=== PATIENT | male | born 1955 | race Caucasian/White ===

== ENCOUNTER 2018-07-14 16:21 | Outpatient (CLI) | payer MEDICARE, SELFPAY ==
[2018-07-14 16:50] LABS: HCT 39.1 % (40.0-50.0); HGB 13.2 g/dL (13.5-17.5); Mean Corp. HGB Concentration 33.8 g/dL (32.0-36.0); Mean Corpuscular Hemoglobin 30.3 pg (27.0-33.0); Mean Corpuscular Volume 89.9 fL (80-95); Mean Platelet Volume 9.6 fL (8.0-11.0); Platelet Count 127 x1000/uL (130-400); RBC 4.35 m/cumm (4.50-6.00); White Blood Cell Count 5.65 k/cumm (4.4-10.8)
[2018-07-14 17:29] LABS: PHENYTOIN (DILANTIN) 7.5 ug/mL (10.0-20.0)
[2018-07-14 17:32] LABS: ALT 22 U/L (12-78); AST 17 U/L (15-37); Albumin 3.6 g/dL (3.4-5.0); Alkaline Phosphatase 186 U/L (46-116); Anion Gap 7.4 mmol/L (3-11); BUN 22 mg/dL (7-18); Bilirubin, Total 0.3 mg/dL (0.2-1.0); C-Reactive Protein 2.15 mg/dL (0.0-0.3); CO2 27.6 mmol/L (21.0-32.0); Calcium 8.5 mg/dL (8.5-10.1); Chloride 107 mmol/L (98-107); Glucose 79 mg/dL (70-100); Potassium 4.2 mmol/L (3.5-5.1); Sodium 142 mmol/L (136-145); Total Protein 6.3 g/dL (6.4-8.2)
[2018-07-14 19:32] LABS: ESR 10 MM/HR (1-20)
[2018-07-18 14:58] LABS: Hepatitis A Antibody IgM Negative (NEGAT); Hepatitis B Core Antibody Negative (NEGAT); Hepatitis B surface Ag Negative (NEGAT); Hepatitis C Ab w Rflx HCV PCR Negative (NEGAT)
[2018-07-18 16:33] LABS: ANA Interpretation Negative (NEGAT)
== END 2018-07-14 16:41 ==
PROVIDERS: PCP Nurse Practitioner; Visit Provider Nurse Practitioner
DX: R21 Rash and other nonspecific skin eruption (principal); I77.6 Arteritis, unspecified; G40.909 Epilepsy, unspecified, not intractable, without status epilepticus; S06.9X9S Unspecified intracranial injury with loss of consciousness of unspecified duration, sequela; Z51.81 Encounter for therapeutic drug level monitoring
CPT/HCPCS: 36415; 80053; 85027; 85652; 86704; 86709; 86803; 87340; 80185; 86038; 86140

== ENCOUNTER 2018-07-18 15:58 | Outpatient (CLI) | payer MEDICARE, SELFPAY ==
[2018-07-18 17:21] LABS: PHENYTOIN (DILANTIN) 10.4 ug/mL (10.0-20.0)
[2018-07-18 17:46] LABS: Abs Immature Grans 0.01 k/cumm (0.0-0.09); Absolute Basophil Count 0.03 k/cumm (0.0-0.2); Absolute Lymphocyte Count 1.13 k/cumm (1.2-3.4); Absolute Monocyte Count 0.38 k/cumm (0.11-0.7); Absolute Neutrophil Count 3.49 k/cumm (1.2-6.7); Basophils % 0.6; Eosinophils % 1.9; HCT 41.2 % (40.0-50.0); HGB 13.8 g/dL (13.5-17.5); Immature Grans % 0.2; Mean Corp. HGB Concentration 33.5 g/dL (32.0-36.0); Mean Corpuscular Hemoglobin 30.3 pg (27.0-33.0); Mean Corpuscular Volume 90.4 fL (80-95); Mean Platelet Volume 10.9 fL (8.0-11.0); Monocytes % 7.4; Neutrophils % 67.9; Platelet Count 138 x1000/uL (130-400); RBC 4.56 m/cumm (4.50-6.00); White Blood Cell Count 5.14 k/cumm (4.4-10.8)
[2018-07-18 18:04] LABS: Cholesterol 125 mg/dL (50-200); HDL Cholesterol 63 mg/dL (40-60); LDL CHOLESTEROL 44 mg/dL (<100); Triglyceride 176 mg/dL (30-150); Vitamin B12 861 pg/mL (193-986)
[2018-07-20 11:44] LABS: Myeloperoxidase Ab IgG <0.2 U; Proteinase 3 Ab (PR3) <0.2 U
[2018-07-21 10:40] LABS: Cryoglobulin, S Negative %ppt (Negative)
== END 2018-07-18 16:18 ==
PROVIDERS: PCP Nurse Practitioner; Visit Provider Nurse Practitioner
DX: I10 Essential (primary) hypertension (principal); R78.5 Finding of other psychotropic drug in blood; L98.9 Disorder of the skin and subcutaneous tissue, unspecified; M25.50 Pain in unspecified joint; R53.83 Other fatigue; E53.8 Deficiency of other specified B group vitamins; G40.909 Epilepsy, unspecified, not intractable, without status epilepticus; Z51.81 Encounter for therapeutic drug level monitoring
CPT/HCPCS: 36415; 80061; 83721; 80185; 82595; 82607; 83516; 85025

== ENCOUNTER 2018-07-20 11:18 | Outpatient (REF) | payer MEDICARE, SELFPAY ==
[2018-07-24 16:16] LABS: 6-monoacetylmorphine Not Detected ng/mL (Cutoff: 25); Amphetamines Negative ng/mL (Cutoff: 500); Barbiturates Negative ng/mL (Cutoff: 200); Benzodiazepines Negative ng/mL (Cutoff: 100); Cocaine Negative ng/mL (Cutoff: 150); Codeine Not Detected ng/mL (Cutoff: 25); Comment Normal; Creatinine, U 29.6 mg/dL; Dihydrocodeine Not Detected ng/mL (Cutoff: 25); EDDP Not Detected ng/mL (Cutoff: 25); Fentanyl Present ng/mL (Cutoff: 2); Hydrocodone Not Detected ng/mL (Cutoff: 25); Hydromorphone Not Detected ng/mL (Cutoff: 25); Hydromorphone-3-beta-glucuroni Not Detected ng/mL (Cutoff: 100); Meperidine Not Detected ng/mL (Cutoff: 25); Methadone Not Detected ng/mL (Cutoff: 25); Morphine Not Detected ng/mL (Cutoff: 25); N-desmethyltapentadol Not Detected ng/mL (Cutoff: 50); Naloxone Not Detected ng/mL (Cutoff: 25); Norbuprenorphine Not Detected ng/mL (Cutoff: 5); Norfentanyl Present ng/mL (Cutoff: 2); Norhydrocodone Not Detected ng/mL (Cutoff: 25); Normeperidine Not Detected ng/mL (Cutoff: 25); Noroxycodone Not Detected ng/mL (Cutoff: 25); Noroxymorphone Not Detected ng/mL (Cutoff: 25); O-desmethyltramadol Not Detected ng/mL (Cutoff: 25); Phencyclidine Negative ng/mL (Cutoff: 25); Propoxyphene Not Detected ng/mL (Cutoff: 25); Specific Gravity 1.004; Tapentadol Not Detected ng/mL (Cutoff: 25); Tetrahydrocannabinol Negative ng/mL (Cutoff: 50); Tramadol Not Detected ng/mL (Cutoff: 25); pH 5.8
== END 2018-07-20 11:38 ==
LOC: LBN 11:18
PROVIDERS: PCP Nurse Practitioner; Visit Provider Nurse Practitioner Family
DX: M54.5 Low back pain (principal); G89.29 Other chronic pain
CPT/HCPCS: 80307; 80364

== ENCOUNTER 2018-07-21 10:45 | Observation (INO) | payer MEDICARE, SELFPAY ==
[2018-07-21 10:46] VITALS: BP 114/72; PULSE 45; RESP 12; TEMP 36.6; O2SAT 98
--- NOTE | 2018-07-21 11:13 | W.ED.GENAD ---
Discharge Plan Disposition Patient Disposition: [facility] INPATIENT Condition: Stable Discharge Details Chief Complaint: PsychEval Clinical Impression: Adjustment disorder with mixed anxiety and depressed mood, Suicidal ideations Reason For Visit: SUICIDAL IDEATION Admit Date/Time: 07/21/18 14:12 Admit Provider: Lexx Gooden Attending Provider: Lexx Gooden Primary Care Provider: Aissatou Briggs ED Provider: Flash Hardin Discharge Data Discharge Date/Time-TO BE ENTERED AT DEPARTURE: 07/21/18 15:20 Medical Decision Making MDM Narrative Medical decision making narrative: Patient presenting to the emergency department chief complaint of suicidal ideations. 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 Patient states after this he took extra of his sleeping pills and overdose attempt but had no ill side effects except for being extra sleepy. Today he spoke with his med provider from [facility] [employer] that recommended he come to the emergency department for help with his depression and suicidality. Patient denies any medical complaints at this time but he does state he has been having some sores on his chest and lower extremity that have been improving and have been monitored by primary care. Patient denies any pain or discomfort at this time. Physical legs exam is unremarkable except for some small open erythematous lesions to his chest and abdomen and one to right lower extremity. Right lower extremity one is covered with bandage but no significant streaking, erythema, weeping or draining is noted. Plan to check labs due to patient having skin issues along with recent overdose but I do feel that patient should be easily medically cleared for admission for suicidal ideations. Of notation on patient's vital signs is bradycardia which records were reviewed and patient has history of bradycardia. After review of labs which are unremarkable I feel the patient is medically clear for evaluation. Patient was evaluated by mental health and agrees with plan of care to have patient admitted for suicidal ideations. Patient is voluntary and in agreement with this plan. Mental health worker states that there are no available beds in the state and there may be a couple availabilities open up tomorrow but otherwise nothing currently available. Plan to admit patient inpatient pending bed availability for psychiatric admission and further stabilization. HPI General Mode of arrival: ambulatory. Date/Time Provider Initiated Documentation: 07/21/18 10:53. Limitations to Documentation: no limitations. Information obtained by: patient. History of Present Illness 63 year old M presents to the emergency department with the chief complaint of Suicidal ideations, described as severe, Patient started experiencing this day(s) (6) and it has been constant. Patient notes no other symptoms.. Patient did receive the following treatments prior to arrival, none Related Data Home Medications Medication Instructions Recorded Confirmed acetaminophen [Acetaminophen Extra 1,000 mg PO PRN PRN tab-cap 11/13/16 07/21/18 Strength] lamotrigine [Lamictal] 100 mg PO DAILY #30 tab 03/16/17 07/21/18 trazodone 50 mg PO HS 07/21/18 07/21/18 Previous Rx's Medication Instructions Recorded phenytoin sodium extended 300 mg PO DAILY #270 cap NS MDD 330 08/09/17 [Dilantin Extended] phenytoin sodium extended 30 mg PO DAILY #90 tab-cap MDD 330 08/09/17 [Dilantin] citalopram 40 mg PO DAILY #60 tab-cap 11/08/17 isosorbide mononitrate 30 mg PO DAILY #30 tabcr 12/29/17 omeprazole 40 mg PO DAILY #30 capsule. 12/29/17 syringe with cannula,disposabl [BD #4 syringe 01/17/18 Blunt Plastic Cannula] magnesium oxide 400 mg PO DAILY #100 tab-cap 03/08/18 cyanocobalamin (vitamin B-12) 1,000 mcg IM Q14D #2 vial 04/26/18 sucralfate [Carafate] 1 g PO QID #60 tab-cap 05/17/18 atorvastatin 80 mg PO DAILY #30 tab-cap 06/23/18 fluticasone [Flovent 110mcg] 110 mcg INHALATION BID #1 inhaler 06/23/18 gabapentin 600 mg PO TID #90 tab-cap 06/23/18 aspirin 81 mg tablet,delayed 81 mg PO DAILY #90 tab 07/07/18 release methylprednisolone 4 mg tablets in See Label Instructions .ROUTE 07/14/18 a dose pack .COMPLEX #21 dose pk fentanyl 75 mcg/hr transdermal 1 patch TRANSDERMAL Q48H #14 each 07/18/18 patch nitroglycerin 0.4 mg sublingual 0.4 mg SUBLINGUAL PRN #25 tab 07/19/18 tablet Allergies Allergy/AdvReac Type Severity Reaction Status Date / Time aripiprazole Allergy Mild SKIN RASH Verified 07/20/18 09:03 aspirin Allergy Unknown Skin Rash Verified 07/20/18 09:03 codeine Allergy Unknown Nausea, Verified 07/20/18 09:03 vomiting, rash General Stated Complaint: PsychEval NELLI: 2 Review of Systems Constitutional Denies body ache(s), Denies chills and Denies fever(s) Cardiovascular Denies chest pain and Denies dyspnea Respiratory Denies dyspnea Gastrointestinal Denies abdominal pain, Denies nausea and Denies vomiting Integumentary/Breasts Reports rash (That is resolved with some open sores) Neurologic Denies confusion and Denies sensory deficit Psychiatric Reports as per HPI, Denies confusion, Reports depression, Reports hopelessness and Reports suicidal ideation (With plan to overdose on pills or take his walker/wheelchair into traffic) PFSH Family History Mother Heart disease Father Personal history of malignant neoplasm Sister Heart disease Sister No problems noted. Sister No problems noted. Brother Alcohol abuse Personal history of malignant neoplasm Medical History B12 deficiency CAD (coronary artery disease) COPD (chronic obstructive pulmonary disease) CVA (cerebral vascular accident) Chronic low back pain Essential hypertension GERD (gastroesophageal reflux disease) Gout History of alcohol abuse History of drug abuse History of tobacco abuse Hyperlipidemia CA (myocardial infarction) Osteoarthritis TBI (traumatic brain injury) Social History lives independently: No current occupational status: disabled Smoking/Tobacco Use Status: Former Tobacco Use alcohol intake: current alcohol intake frequency: 0-2 drinks per day substance use type: does not use seatbelt use: always drive intox or ride w/ intox driver license agent: No water heater temp set < 120 deg: Yes fire extinguisher in home: No carbon monox detector in home: Yes firearms in home: No victim of emotional abuse: No victim of sexual abuse: No Surgical History Acromioplasty Arthroplasty of knee Colonoscopy - IV Sedation (~2008) Coronary Stent EGD - MAC (06/10/18) Hernia Repair, Incisional Repair of inguinal hernia Repair of umbilical hernia laminectomies C3-6 (10/12/16) Exam Const General: cooperative, no acute distress and not ill appearing Orientation: alert, awake and oriented x3 HENMT Mouth: moist mucous membranes Resp Effort & Inspection: normal respiratory effort, able to speak in complete sentences and no respiratory distress Cardio Rate: bradycardic Rhythm: regular rhythm Heart Sounds: S1 normal and S2 normal Skin Lesions: lesion noted (Small to chest and moderate size 1 to right lower extremity that is unremarkable) Neuro General: alert, awake, oriented x3, moves all extremities and no focal motor deficits Sensory Exam: no sensory deficits noted Psych Mental Status: mental status grossly normal Speech and Movement: speech clear Affect: indifferent Attitude: cooperative Thought Process: normal Thought Content: suicidality (With plan to overdose or going in to traffic) Course Vital Signs Temperature 36.6 C 07/21/18 10:46 Pulse 45 L 07/21/18 10:46 Respiratory Rate 12 07/21/18 10:46 Blood Pressure 114/72 07/21/18 10:46 Pulse Oximetry 98 07/21/18 10:46 Temperature 36.6 C 07/21/18 10:46 Pulse 45 L 07/21/18 10:46 Respiratory Rate 12 07/21/18 10:46 Blood Pressure 114/72 07/21/18 10:46 Pulse Oximetry 98 07/21/18 10:46
--- NOTE | 2018-07-21 11:24 | W.INMHPGNOTE ---
Date of service: 07/21/18 Time of Service: 11:24 Mental Health Crisis Note Presenting Issue How did you arrive at the ED and why did you come: Client was at [facility] for a med/therapy consult when he expressed thoughts of suicide. Due to the Patient having a plan and no deterrents he was transported to the ER for a medical clearance in order to pursue in-patient treatment. Precipitating Factors Patient is actively suicidal with a plan. The patient states that he would either overdose or wheel his wheelchair into the road towards oncoming traffic. He states that he tried to overdose on Wednesday by taking 4 Trazadone. Disposition BEHAVIOR: Patient it sitting on the hospital bed talking with this caption writer. EYE CONTACT: The patient makes direct eye contact with this caption writer. MOOD: Patient is calm but depressed. AFFECT: Patient presents with a flat affect. APPETITE: Patient states that his family (significant other and son) has withheld food at times and he has to go to his restorationism to get food. He also states that his son has been much better after being charged for such actions. SLEEP(trouble falling/staying asleep: Patient states that he takes sleeping medication and sleeps well with them. Plan Patient will remain at the hospital until a bed becomes available at a mental health treatment facility. All facilities have been called and beds are full. A referral has been sent to [facility] as they stated they are currently full on the adult unit but there are possible discharges scheduled for tomorrow. Signature Clinician's Name/Title: Mili Sheffield - [facility] Emergency Clinician
[2018-07-21 11:28] LABS: Bilirubin Negative (Negative); Blood Small (Negative); Clarity Clear; Glucose Negative (Negative); Ketones Negative (Negative); Leukocyte Esterase Negative (Negative); Nitrite Negative (Negative); Specific Gravity <= 1.005 (1.005-1.025); Urobilinogen 0.2 EU/dL (Up TO 0.2)
[2018-07-21 11:29] LABS: Abs Immature Grans 0.01 k/cumm (0.0-0.09); Absolute Basophil Count 0.02 k/cumm (0.0-0.2); Absolute Eosinophil Count 0.24 k/cumm (0.0-0.7); Absolute Lymphocyte Count 1.33 k/cumm (1.2-3.4); Absolute Monocyte Count 0.72 k/cumm (0.11-0.7); Basophils % 0.3; Eosinophils % 3.3; HCT 42.8 % (40.0-50.0); HGB 14.6 g/dL (13.5-17.5); Immature Grans % 0.1; Lymphocytes % 18.2; Mean Corp. HGB Concentration 34.1 g/dL (32.0-36.0); Mean Corpuscular Hemoglobin 30.3 pg (27.0-33.0); Mean Corpuscular Volume 88.8 fL (80-95); Mean Platelet Volume 9.9 fL (8.0-11.0); Monocytes % 9.8; Neutrophils % 68.3; Platelet Count 148 x1000/uL (130-400); RBC 4.82 m/cumm (4.50-6.00); White Blood Cell Count 7.32 k/cumm (4.4-10.8)
[2018-07-21 11:31] LABS: *AMPHETAMINES SCREEN URINE Negative (Negative); *BARBITURATES SCREEN URINE Negative (Negative); *BENZODIAZEPINES SCREEN URINE Negative (Negative); Cannabinoids THC Negative (Negative); Cocaine Screen,Urine Negative (Negative); METHADONE URINE SCREEN Negative (Negative); OPIATES URINE SCREEN Negative (Negative)
[2018-07-21 11:35] LABS: Tricyclic Antidepressants Negative (Negative)
--- NOTE | 2018-07-21 11:39 | MHPN_ITS ---
Date of service: 07/21/18 Time of Service: 11:24 Mental Health Crisis Note Presenting Issue How did you arrive at the ED and why did you come: Client was at [facility] for a med/therapy consult when he expressed thoughts of suicide. Due to the Patient having a plan and no deterrents he was transported to the ER for a medical clearance in order to pursue in-patient treatment. Precipitating Factors Patient is actively suicidal with a plan. The patient states that he would either overdose or wheel his wheelchair into the road towards oncoming traffic. He states that he tried to overdose on Wednesday by taking 4 Trazadone. Disposition BEHAVIOR: Patient it sitting on the hospital bed talking with this writer producer. EYE CONTACT: The patient makes direct eye contact with this writer producer. MOOD: Patient is calm but depressed. AFFECT: Patient presents with a flat affect. APPETITE: Patient states that his family (significant other and son) has withheld food at times and he has to go to his temple to get food. He also states that his son has been much better after being charged for such actions. SLEEP(trouble falling/staying asleep: Patient states that he takes sleeping medication and sleeps well with them. Plan Patient will remain at the hospital until a bed becomes available at a mental health treatment facility. All facilities have been called and beds are full. A referral has been sent to [facility] as they stated they are currently full on the adult unit but there are possible discharges scheduled for tomorrow. Signature Clinician's Name/Title: Mili Sheffield - [facility] Emergency Clinician
[2018-07-21 11:44] LABS: Salicylate < 2.8 mg/dL (2.8-20.0)
[2018-07-21 11:47] LABS: Epithelial Cells Rare HPF (Negative); WBC 0-2 HPF (0-5)
[2018-07-21 11:48] LABS: Bacteria Negative HPF (Negative); C & S Indicated? No; Crystals Negative HPF (Negative); Mucus Negative (Negative)
[2018-07-21 11:50] LABS: TSH 0.65 uIU/mL (0.358-3.74)
[2018-07-21 11:57] LABS: ETHANOL BLOOD < 3.0 mg/dL (<3)
[2018-07-21 12:55] LABS: ALT 30 U/L (12-78); AST 23 U/L (15-37); Albumin 3.9 g/dL (3.4-5.0); Alkaline Phosphatase 194 U/L (46-116); BUN 13 mg/dL (7-18); Bilirubin, Total 0.4 mg/dL (0.2-1.0); CREATININE 0.92 mg/dL (0.70-1.30); Calcium 8.9 mg/dL (8.5-10.1); Chloride 105 mmol/L (98-107); Glucose 110 mg/dL (70-100); Potassium 4.1 mmol/L (3.5-5.1); Sodium 139 mmol/L (136-145); Total Protein 6.8 g/dL (6.4-8.2)
[2018-07-21 13:07] LABS: Acetaminophen < 2 ug/mL (10-30)
[2018-07-21 15:31] VITALS: BP 102/70; PULSE 50; RESP 18; TEMP 36.8; O2SAT 97
--- NOTE | 2018-07-21 15:39 | PDOC.CMPRO ---
Care Management Progress Note Miguel reportedly was meeting with his medication management provider; [email or web address]. He reported to her having overdosed on his Trazodone medication on Wednesday. He reports multiple stressors including current strained relationships with his significant other, son, as well as some of his rastafarian community members. Per report, Miguel struggles with PTSD, adjustment disorder with mixed anxiety and Depression, and Anxiety. VOLUNTARY FOR INPATIENT PSYCHIATRIC STABILIZATION. Miguel has been cooperative and appropriate in all interactions since arriving at [facility]; he has demonstrated appropriate coping and communication skills, has articulated his needs and concerns and is fully engaged during staff interactions. Huddle Participants: Teresa RAHMAN, Flash Hardin MD, Mili Sheffield; [facility], Da MONK. Time and Date: 07/21/18@1130 Safety plan has been established with patient, and care team, to adhere to patient goals, identify restrictions based on behavioral status, address nutrition, and determine allowed personal belongings, tools for hygiene and personal care. Miguel's mobility is limited due to recent CVA. Due to Miguel's willingness to be fully engaged with all providers thus far, his privileges have been determined based on behaviors and Miguel's level of engagement. SAFETY PLAN: 1. Will remain on suicide precautions and in paper clothes. 2. Will remain in room under direct supervision of one-on-one staff at all times provided by FARRUKH, LINE O SCRIBE OPERATOR religious educator. 3. May have paper cups, plates, finger foods 4. Follow [facility] Management of the Admitted Behavioral Health Patient policy printed and attached to the safety plan in physical chart. 5. May have use of shower room with escort. 6. May have cell phone, television and remote; all at RN discretion. 7. May have visitors at patient discretion. [facility] will be coordinating placement at inpatient facility, last updates included the following: Mili reports no bed availability, [facility] was willing to review referral which Mili reports was faxed. Patient is currently voluntarily at [facility] and seeking inpatient admission when a bed becomes available. [facility] [employer] will continue seeking placement. Please contact the [employer] Transit Specialist ([phone]) and [facility] Arcade Games Mechanic ([phone]) for any needed changes in the Safety Plan. Safety plan has been provided to interdepartmental care team including Clinical Coordinator , Nursing Health Sciences Department Chair.
--- NOTE | 2018-07-21 16:05 | CMPROGNOTE_ITS ---
Care Management Progress Note Miguel reportedly was meeting with his medication management provider; [email or web address]. He reported to her having overdosed on his Trazodone medication on Wednesday. He reports multiple stressors including current strained relationships with his significant other, son, as well as some of his restorationism community members. Per report, Miguel struggles with PTSD, adjustment disorder with mixed anxiety and Depression, and Anxiety. VOLUNTARY FOR INPATIENT PSYCHIATRIC STABILIZATION. Miguel has been cooperative and appropriate in all interactions since arriving at [facility]; he has demonstrated appropriate coping and communication skills, has articulated his needs and concerns and is fully engaged during staff interactions. Huddle Participants: Teresa RAHMAN, Flash Hardin MD, Mili Sheffield; [facility], Da MONK. Time and Date: 07/21/18@1130 Safety plan has been established with patient, and care team, to adhere to patient goals, identify restrictions based on behavioral status, address nutrition, and determine allowed personal belongings, tools for hygiene and personal care. Miguel's mobility is limited due to recent CVA. Due to Miguel's willingness to be fully engaged with all providers thus far, his privileges have been determined based on behaviors and Miguel's level of engagement. SAFETY PLAN: 1. Will remain on suicide precautions and in paper clothes. 2. Will remain in room under direct supervision of one-on-one staff at all times provided by FARRUKH, DIE CUTTER DIAMOND rent and housing investigator. 3. May have paper cups, plates, finger foods 4. Follow [facility] Management of the Admitted Behavioral Health Patient policy printed and attached to the safety plan in physical chart. 5. May have use of shower room with escort. 6. May have cell phone, television and remote; all at RN discretion. 7. May have visitors at patient discretion. [facility] will be coordinating placement at inpatient facility, last updates included the following: Mili reports no bed availability, [facility] was willing to review referral which Mili reports was faxed. Patient is currently voluntarily at [facility] and seeking inpatient admission when a bed becomes available. [facility] [employer]line Steam Fitter Helper will continue seeking placement. Please contact the Administrative Underwriter Chief Dietitian ([phone]) and [facility] Steam Fitter Helper ([phone]) for any needed changes in the Safety Plan. Safety plan has been provided to interdepartmental care team including Clinical Coordinator , Nursing Operations Research Group Manager.
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
[2018-07-21] MEDS: Gabapentin 600 MG TAB PO (19:30)
[2018-07-21] MEDS: fentaNYL 75 MCG PATCH TD (19:30)
[2018-07-21] MEDS: Enoxaparin 40 MG/0.4 ML SYR SC (19:31)
[2018-07-21] MEDS: Atorvastatin 40 MG TAB 80 MG PO (19:31)
[2018-07-21 20:06] VITALS: BP 134/76; PULSE 49; RESP 18; TEMP 36.9; O2SAT 95
[2018-07-21 20:18] VITALS: O2SAT 95
[2018-07-22] MEDS: Isosorbide Mononitrate 30 MG TABCR PO (07:46)
[2018-07-22] MEDS: Gabapentin 600 MG TAB PO ×2 (07:46→13:48)
[2018-07-22] MEDS: lamoTRIgine 100 MG TAB PO (07:46)
[2018-07-22] MEDS: Citalopram 20 MG TAB 40 MG PO (07:46)
[2018-07-22] MEDS: Aspirin E.C. 81 MG TABEC PO (07:47)
[2018-07-22] MEDS: Omeprazole 20 MG CAPCR 40 MG PO (07:47)
[2018-07-22] MEDS: Magnesium Oxide 400 MG TAB PO (07:47)
[2018-07-22 07:50] VITALS: BP 100/65; PULSE 48; RESP 18; TEMP 36.2; O2SAT 98
[2018-07-22 08:29] VITALS: BP 119/65; PULSE 55
[2018-07-22 08:35] VITALS: BP 93/57; PULSE 54
--- NOTE | 2018-07-22 09:26 | W.INMHPGNOTE ---
Date of service: 07/22/18 Time of Service: 09:26 Mental Health Crisis Note Presenting Issue How did you arrive at the ED and why did you come: Patient initially arrived at the Emergency Department yesterday for suicidal ideation. Precipitating Factors Patient states that he is no longer suicidal and does not have any intent or ideation. He states that he feels much better and is able to contract for safety. Disposition BEHAVIOR: Patient is sitting on the bed conversing with this leader writer. No abnormal behavior present. EYE CONTACT: Patient makes direct eye contact MOOD: Calm and understanding AFFECT: Patients affect is appropriate for conversation APPETITE: Patient states that he is eating well SLEEP(trouble falling/staying asleep: Patient states that he did not sleep too well last night Plan Since the patient appears to be in a much better head space and is able to contract for safety he will be sent home with a safety plan. It is the plan that he will call every day before lunch time to check in and verify his mental status. The patient currently does not meet criteria for in-patient psychiatric hospitalization. Signature Clinician's Name/Title: Mili Germain [facility] Emergency Clinician
--- NOTE | 2018-07-22 09:29 | MHPN_ITS ---
Date of service: 07/22/18 Time of Service: 09:26 Mental Health Crisis Note Presenting Issue How did you arrive at the ED and why did you come: Patient initially arrived at the Emergency Department yesterday for suicidal ideation. Precipitating Factors Patient states that he is no longer suicidal and does not have any intent or ideation. He states that he feels much better and is able to contract for safety. Disposition BEHAVIOR: Patient is sitting on the bed conversing with this automobile service writer. No abnormal behavior present. EYE CONTACT: Patient makes direct eye contact MOOD: Calm and understanding AFFECT: Patients affect is appropriate for conversation APPETITE: Patient states that he is eating well SLEEP(trouble falling/staying asleep: Patient states that he did not sleep too well last night Plan Since the patient appears to be in a much better head space and is able to contract for safety he will be sent home with a safety plan. It is the plan that he will call every day before lunch time to check in and verify his mental status. The patient currently does not meet criteria for in-patient psychiatric hospitalization. Signature Clinician's Name/Title: Mili Germain [facility] Emergency Clinician
[2018-07-22 09:30] VITALS: O2SAT 98
[2018-07-22 11:12] LABS: Troponin I < 0.02 ng/mL (0.00-0.06)
--- NOTE | 2018-07-22 14:31 | PDOC.CMIN ---
- If Service Date Differs Date of service: 07/22/18 Time of Service: 14:31 Care Management Initial Assess REASON FOR HOSPITALIZATION:: Suicidal Ideation PAST MEDICAL HISTORY/PAST SURGICAL HISTORY:: B12 deficiency. CAD (coronary artery disease). COPD (chronic obstructive pulmonary disease). CVA (cerebral vascular accident). Chronic low back pain. Essential hypertension. GERD (gastroesophageal reflux disease). Gout. History of alcohol abuse. History of drug abuse. History of tobacco abuse. Hyperlipidemia. AR (myocardial infarction). Osteoarthritis. TBI (traumatic brain injury) PREVIOUS FUNCTIONAL STATUS/SOCIAL/FAMILY SUPPORTS:: Miguel resides with his SO Mery and son Dev in [facility]. 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 However Miguel states that he has been asked not to go to the baptism for the time being which has been difficult for him. Miguel uses a walker and w/c at home for ADL's. CURRENT FUNCTIONAL STATUS:: Currently Miguel is alert this morning. He denies SI at this time. [facility] has met with him and he has contracted for safety ADVANCE DIRECTIVES:: None on file Has patient been provided with information about the portal?: Yes Did the patient sign up for the portal?: No CODE STATUS:: Full Code INSURANCE COVERAGE / FINANCIAL ISSUES:: Medicare CURRENT HOME/COMMUNITY SERVICES/EQUIPMENT:: Miguel has home health RN services, W/C, Hospital bed, and a walker at home. PRIMARY CARE PHYSICIAN:: Aissatou Briggs POTENTIAL DISCHARGE NEEDS:: F/U appointment with PCP. Has contracted for safety with [facility] - will F/U with [facility] in the community. PATIENT/FAMILY EDUCATION NEEDS:: review DC instructions, any limitations, and ongoing DC planning discussion. review Ask Me Three ANTICIPATED BARRIERS TO DISCHARGE:: None identified at this time. TRANSPORTATION:: Via private vehicle with friend vs. RCT PLAN:: Miguel will return home with resumption of home health RN services. He has contracted for safety with [facility], please see NURIA Garces, note. Miguel will have an EKG and troponin today, if both of those are within normal limits he will return home.
--- NOTE | 2018-07-22 14:43 | INITIAL_ITS ---
- If Service Date Differs Date of service: 07/22/18 Time of Service: 14:31 Care Management Initial Assess REASON FOR HOSPITALIZATION:: Suicidal Ideation PAST MEDICAL HISTORY/PAST SURGICAL HISTORY:: B12 deficiency. CAD (coronary artery disease). COPD (chronic obstructive pulmonary disease). CVA (cerebral vascular accident). Chronic low back pain. Essential hypertension. GERD ( gastroesophageal reflux disease). Gout. History of alcohol abuse. History of drug abuse. History of tobacco abuse. Hyperlipidemia. DC (myocardial infarction). Osteoarthritis. TBI (traumatic brain injury) PREVIOUS FUNCTIONAL STATUS/SOCIAL/FAMILY SUPPORTS:: Miguel resides with his SO Mery and son Dev in [facility]. 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 However Miguel states that he has been asked not to go to the hinduism for the time being which has been difficult for him. Miguel uses a walker and w/c at home for ADL's. CURRENT FUNCTIONAL STATUS:: Currently Miguel is alert this morning. He denies SI at this time. [facility] has met with him and he has contracted for safety ADVANCE DIRECTIVES:: None on file Has patient been provided with information about the portal?: Yes Did the patient sign up for the portal?: No CODE STATUS:: Full Code INSURANCE COVERAGE / FINANCIAL ISSUES:: Medicare CURRENT HOME/COMMUNITY SERVICES/EQUIPMENT:: Miguel has home health RN services, W /C, Hospital bed, and a walker at home. PRIMARY CARE PHYSICIAN:: Aissatou Briggs POTENTIAL DISCHARGE NEEDS:: F/U appointment with PCP. Has contracted for safety with [facility] - will F/U with [facility] in the community. PATIENT/FAMILY EDUCATION NEEDS:: review DC instructions, any limitations, and ongoing DC planning discussion. review Ask Me Three ANTICIPATED BARRIERS TO DISCHARGE:: None identified at this time. TRANSPORTATION:: Via private vehicle with friend vs. RCT PLAN:: Miguel will return home with resumption of home health RN services. He has contracted for safety with [facility], please see NURIA Garces, note. Miguel will have an EKG and troponin today, if both of those are within normal limits he will return home.
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
--- NOTE | 2018-07-22 15:12 | PDOC.CMDIS ---
- If Service Date Differs Date of service: 07/22/18 Time of Service: 15:12 LACE Index Scoring Tool - Questions: Length of Stay (in days): 2 Acuity (Admit via E.D.?): Yes Comorbidities: Chronic Pulmonary Disease E.D. Visits: 6 - Answers: Total Score: 11 Risk of Readmission: High Risk Care Management Discharge Reason for Hospitalization: Suicidal Ideation Discharge Plan: Miguel has contracted for safety with [facility]. He denies SI at this time. Miguel will return home with a resumption of home health RN services. CM contacted [facility], whom is aware of Miguel's DC. Friend to transport. Patient/Family Education Needs: Review DC instructions, any limitations, and discuss Ask Me Three Services Needed at Discharge: Home Health Care Services (RN)
[2018-07-22 15:46] VITALS: BP 106/62; PULSE 53; RESP 16; TEMP 36.6; O2SAT 96
== END 2018-07-22 15:57 | disposition home or self-care (01) ==
LOC: ER 14:59 → MS 07-22 09:11
PROVIDERS: Nurse Practitioner; Admitting Provider Internal Medicine; Emergency Provider Nurse Practitioner Family; PCP Nurse Practitioner; Visit Provider Internal Medicine
DX: R45.851 Suicidal ideations (principal); Z91.5 Personal history of self-harm; R07.9 Chest pain, unspecified; T76.01XA Adult neglect or abandonment, suspected, initial encounter; F43.23 Adjustment disorder with mixed anxiety and depressed mood; Z75.1 Person awaiting admission to adequate facility elsewhere; J44.9 Chronic obstructive pulmonary disease, unspecified; I10 Essential (primary) hypertension; K21.9 Gastro-esophageal reflux disease without esophagitis; F10.21 Alcohol dependence, in remission; F19.11 Other psychoactive substance abuse, in remission; Z87.891 Personal history of nicotine dependence; E78.5 Hyperlipidemia, unspecified; Z87.820 Personal history of traumatic brain injury
CPT/HCPCS: 36415; 80053; 80307; 94640; 99222; 99239; 99285; J1650; 80320; 80329; 81003; 81015; 84443; 84484; 85025; 93005; 93010; 99217; 99219; 99284; G0378; J3490

== ENCOUNTER 2018-07-29 18:25 | Inpatient (IN) | payer MEDICARE, MEDICAID, SELFPAY ==
[2018-07-29] VITALS (49 sets, daily range): BP systolic 94–131; BP diastolic 54–83; PULSE 43–52; RESP 6–26; TEMP 36.9; O2SAT 91–99
--- NOTE | 2018-07-29 19:12 | DI.RAD_ITS ---
SYMPTOM/DIAGNOSIS: CHEST PAIN AP AND LATERAL CHEST: 07/29 The heart is not enlarged. The lungs are clear and well expanded. No pleural effusion seen. CONCLUSION: No evidence of acute disease.
[2018-07-29 19:21] LABS: Abs Immature Grans 0.01 k/cumm (0.0-0.09); Absolute Basophil Count 0.03 k/cumm (0.0-0.2); Absolute Lymphocyte Count 1.39 k/cumm (1.2-3.4); Absolute Monocyte Count 0.74 k/cumm (0.11-0.7); Absolute Neutrophil Count 3.38 k/cumm (1.2-6.7); Basophils % 0.5; Eosinophils % 5.1; HCT 39.8 % (40.0-50.0); HGB 13.4 g/dL (13.5-17.5); Immature Grans % 0.2; Lymphocytes % 23.8; Mean Corp. HGB Concentration 33.7 g/dL (32.0-36.0); Mean Corpuscular Hemoglobin 30.7 pg (27.0-33.0); Mean Corpuscular Volume 91.1 fL (80-95); Mean Platelet Volume 9.9 fL (8.0-11.0); Monocytes % 12.6; Neutrophils % 57.8; Platelet Count 143 x1000/uL (130-400); RBC 4.37 m/cumm (4.50-6.00); RBC Distribution Width 13.4 % (11.8-14.1); White Blood Cell Count 5.85 k/cumm (4.4-10.8)
--- NOTE | 2018-07-29 19:36 | DI.VRAD_ITS ---
EXAM: XR Chest, 2 Views CLINICAL HISTORY: 63 years old, male; Pain; Chest pain TECHNIQUE: Frontal and lateral views of the chest. COMPARISON: SC PORTABLE CHEST ONE VIEW 05/10/2018 4:05 PM FINDINGS: Lungs: No airspace consolidation. Pleural space: No focal pathology. No pneumothorax. Heart: No focal pathology. No cardiomegaly. Mediastinum: Unremarkable. Bones/joints: Unremarkable. IMPRESSION: No acute cardiopulmonary pathology. Dictated and Authenticated by: Constance Dewitt MD. Ordering:GRAHAM MCBRIDE MD
[2018-07-29 19:42] LABS: ALT 25 U/L (12-78); AST 18 U/L (15-37); Albumin 3.3 g/dL (3.4-5.0); Alkaline Phosphatase 194 U/L (46-116); Anion Gap 8.1 mmol/L (3-11); BUN 14 mg/dL (7-18); Bilirubin, Total 0.2 mg/dL (0.2-1.0); CO2 27.9 mmol/L (21.0-32.0); CREATININE 0.96 mg/dL (0.70-1.30); Calcium 8.7 mg/dL (8.5-10.1); Chloride 104 mmol/L (98-107); Glucose 87 mg/dL (70-100); Sodium 140 mmol/L (136-145); Total Protein 6.4 g/dL (6.4-8.2); Troponin I < 0.02 ng/mL (0.00-0.06)
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
--- NOTE | 2018-07-29 20:06 | DI.COMBO_ITS ---
SYMPTOM/DIAGNOSIS: WORSE LEFT SIDED WEAKNESS/NUMBNESS CRANIAL CT: 07/[address] performed. There is a fluid attenuation focus in the posterior left middle cranial fossa unchanged from 09/08/17 consistent with arachnoid cyst or encephalomalacia. No evidence of acute intracranial hemorrhage, mass effect or midline shift. Paranasal sinuses appear grossly well aerated as visualized. Mastoid air cells are hypoplastic. Temporal bone structures otherwise appear intact. CONCLUSION: No evidence of acute intracranial process. CT ANGIOGRAPHY CERVICAL AND CRANIAL: 07/29 CT angiography was performed from the level of the aortic arch to the cranial vertex with intravenous infusion of 100 cc Omnipaque 350. Images obtained through the lung apices are unremarkable. Tracheolaryngeal structures appear intact. No gross cervical mass or adenopathy is seen. The visualized vertebral and basilar arteries appear intact. Minimal artifact partially obscures proximal vertebral arteries right greater than left. The common internal and external carotid arteries are of normal diameter with no significant stenosis. No aneurysm or dissection seen. Intracranial scanning shows unremarkable appearance of the [place] vasculature with no evidence of significant stenosis, aneurysm formation or dissection of visualized vertebral basilar internal carotid, middle anterior or posterior cerebral arteries. No mass lesion or enhancing lesion identified in the brain. CONCLUSION: No evidence of hemodynamically significant stenosis, aneurysm formation, or dissection of the craniocervical circulation as described above.
[2018-07-29 20:35] LABS: PHENYTOIN (DILANTIN) 7.8 ug/mL (10.0-20.0)
[2018-07-29] MEDS: Omnipaque 350 MG/ML 100 ML BTL IJ (20:37)
--- NOTE | 2018-07-29 20:37 | DI.VRAD_ITS ---
EXAM: CT Head Without Intravenous Contrast CLINICAL HISTORY: 63 years old, male; Signs and symptoms; Weakness, extremity; Left TECHNIQUE: Axial computed tomography images of the head/brain without intravenous contrast. Coronal and sagittal reformatted images were created and reviewed. COMPARISON: CT HEAD WITHOUT CONTRAST 09/08/2017 3:51 PM FINDINGS: Brain: CSF density in the left middle cranial fossa, left temporal encephalomalacia versus arachnoid cyst, similar to the previous study. No hemorrhage. No significant white matter disease. Ventricles: No focal pathology. No ventriculomegaly. Bones/joints: No focal pathology. No acute fracture. Soft tissues: Unremarkable. Sinuses: Mild ethmoid sinus disease. Mastoid air cells: Underpneumatized right mastoid air cells. IMPRESSION: 1. No acute intracranial findings. 2. CSF density in the left middle cranial fossa, left temporal encephalomalacia versus arachnoid cyst, similar to the previous study. 3. Mild ethmoid sinus disease. Dictated and Authenticated by: Constance Dewitt MD. Ordering:LILLIANA BENSON MD
--- NOTE | 2018-07-29 21:36 | DI.VRAD_ITS ---
EXAM: CT Angiography Head With Intravenous Contrast CLINICAL HISTORY: 63 years old, male; Signs and symptoms; Weakness TECHNIQUE: Axial computed tomographic angiography images of the head with intravenous contrast using CT angiography protocol. MIP reconstructed images were created and reviewed. COMPARISON: No relevant prior studies available. FINDINGS: Right internal carotid artery: Intracranial segment is patent with no significant stenosis. No aneurysm. Right anterior cerebral artery: Minimal fusiform dilation of the proximal right A2 artery to 3 mm. Patent and with no saccular aneurysm. Right middle cerebral artery: No occlusion or significant stenosis. No aneurysm. Right posterior cerebral artery: No occlusion or significant stenosis. No aneurysm. Right vertebral artery: No occlusion or significant stenosis. Left internal carotid artery: No acute findings. Intracranial segment is patent with no significant stenosis. No aneurysm. Left anterior cerebral artery: No occlusion or significant stenosis. No aneurysm. Left middle cerebral artery: No focal pathology. No occlusion or significant stenosis. No aneurysm. Left posterior cerebral artery: No occlusion or significant stenosis. No aneurysm. Left vertebral artery: Small focal atheroma, intracranial left vertebral artery, patent with no aneurysm or significant stenosis. Basilar artery: No focal pathology. No occlusion or significant stenosis. No aneurysm. Brain: Left temporal hypodensity, probable encephalomalacia, again seen. Sinuses: Mild sinus disease. Mastoid air cells: Hypoplastic right mastoid air cells. IMPRESSION: 1. No acute arterial pathology. Patent [place] of [place]. 2. Minimal fusiform dilation of the proximal right A2 artery to 3 mm. Patent and with no saccular aneurysm. EXAM: CT Angiography Neck With Intravenous Contrast CLINICAL HISTORY: 63 years old, male; Signs and symptoms; Weakness TECHNIQUE: Axial computed tomographic angiography images of the neck with intravenous contrast using CT angiography protocol. MIP reconstructed images were created and reviewed. COMPARISON: CT HEAD FOR STROKE PROTOCOL 07/29/2018 8:09 PM FINDINGS: VASCULATURE: Right common carotid artery: No focal pathology. No significant stenosis. No dissection or occlusion. Right internal carotid artery: Mild calcified and noncalcified proximal right ICA atherosclerosis with no significant stenosis. Right external carotid artery: No focal pathology. No occlusion. Right vertebral artery: No occlusion or significant stenosis. Left common carotid artery: No focal pathology. No significant stenosis. No dissection or occlusion. Left internal carotid artery: Minimal proximal left ICA atherosclerosis with no significant stenosis. No dissection or occlusion. Left external carotid artery: No focal pathology. No occlusion. Left vertebral artery: No occlusion or significant stenosis. NECK: Bones/joints: Laminectomy, C4-C5 and C6, grade 1 anterolisthesis of C4 over C5. Multilevel degenerative changes in the cervical spine. No acute fracture. No dislocation. Soft tissues: Unremarkable as visualized. No mass. CAROTID STENOSIS REFERENCE USING NASCET CRITERIA: % ICA stenosis = (1 - narrowest ICA diameter/diameter of distal cervical ICA) x 100. Mild - <50% stenosis. Moderate - 50-69% stenosis. Severe - 70-94% stenosis. Near occlusion - 95-99% stenosis. Occluded - 100% stenosis. IMPRESSION: No acute arterial pathology. Patent carotid and vertebral system bilaterally. Dictated and Authenticated by: Constance Dewitt MD. Ordering:LILLIANA BENSON MD
--- NOTE | 2018-07-29 22:04 | NUR.NOTE ---
Nursing Note: Bedside swallow test: able to swallow water without difficulty. Does complain of sore throat but no difficulty getting liquids down. Advised to take small sips, ring callbell if difficulty swallowing. Telemetry attached. Pt visible from nursing station. Continue to monitor.
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
[2018-07-29] MEDS: Aspirin 81 MG CHEW 324 MG CH (23:24)
[2018-07-30] VITALS (11 sets, daily range): BP systolic 93–124; BP diastolic 54–69; PULSE 43–50; RESP 13–20; TEMP 35.9–36.9; O2SAT 95–99
[2018-07-30] MEDS: Clopidogrel 75 MG TAB PO ×2 (00:41→12:13)
[2018-07-30 06:45] LABS: Troponin I < 0.02 ng/mL (0.00-0.06)
--- NOTE | 2018-07-30 06:59 | PDOC.CMIN ---
- If Service Date Differs Date of service: 07/30/18 (\) Time of Service: 07:00 Care Management Initial Assess REASON FOR HOSPITALIZATION:: Chest pain, possible Stroke. PAST MEDICAL HISTORY/PAST SURGICAL HISTORY:: Vitamin B12 deficiency, neurological disorder, suicidal ideations, hemiparesis, epilepsy, cervical stenosis of spinal canal, atherosclerosis of coronary artery, COPD, adjustment disorder with mixed anxiety and depressed mood, [place], osteoarthritis, TBI, CVA, asthma, anxiety, adjustment disorder. Surgical hx: acromioplasty, arthroplasty of knee, colonoscopy, coronary stent, EGD-MAC, hernia repair (inguinal and umbilical), laminectomies C3-6. PREVIOUS FUNCTIONAL STATUS/SOCIAL/FAMILY SUPPORTS:: Miguel resides in a home with his field liability generalist, Mery and her 34 year old son, who Miguel reportedly does not get along with. He is currently looking for alternative housing and has been making phone calls and actively looking. 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 Miguel ambulates using a wheel chair and is independent with his ADLs. Miguel utilizes [facility] and friends for transportation to appointments and errands. CURRENT FUNCTIONAL STATUS:: Miguel is lying in bed when CM visits this morning. He is engaged in conversation and is talkative. Miguel denies chest pain and pressure at this time and states that he is very tired. Miguel relays that until 2 weeks ago he volunteered at a local [employer]. At that time the production lead reportedly asked him not to come back due the mistakes he had been making. Miguel said his heart is broken and he has lost all of his friends (who were affiliated with the sikhism). asked if he would want to go back if they let him, and he replied yes. CM asked if Miguel would like to make a phone call to the production lead, and Miguel said yes. CM will phone [facility] and find out what's going on. Miguel has been actively looking for new housing. Miguel reports that Lana, [facility] heavy equipment operator, is a good support person for him. CM will let Lana know that Miguel would like a visit when she is available. Miguel denies SI and depression at this time. When asked how he got over this (his recent admission was for SI) he said he spoke with a lot of people and resolved the feelings. Miguel reports that he has not been eating and does not have an appetite. CM reminds him to drink fluids and he reports that he has been drinking adequate water. ADVANCE DIRECTIVES:: On file at [facility]. Has patient been provided with information about the portal?: Yes Did the patient sign up for the portal?: No CODE STATUS:: Full Code INSURANCE COVERAGE / FINANCIAL ISSUES:: Medicare. CURRENT HOME/COMMUNITY SERVICES/EQUIPMENT:: [facility], [place] [facility], [facility].. PRIMARY CARE PHYSICIAN:: Aissatou Briggs. POTENTIAL DISCHARGE NEEDS:: Follow up appointment with MD. PATIENT/FAMILY EDUCATION NEEDS:: Discharge education, any limitations and follow up plan of care. Ask Me Three discussion. ANTICIPATED BARRIERS TO DISCHARGE:: No barriers to discharge. TRANSPORTATION:: Miguel will transport via [facility] or with a friend via private vehicle. PLAN:: Miguel will discharge home when medically ready per MD. Anticipate patient will discharge with no services and follow up with PCP. CM will continue to offer support to patient and care team regarding discharge planning and disposition. Readmission - Within the Past 30 Days Yes or No: Y - Date of First Admission Date of 1st Admission: 07/21/18 (Suicidal Ideations) - Date of this Admission Date of Admission: 07/29/18 This admission was: Through ED - Office Visit Since 1st Admission Have you seen your PCP in the office since discharge?: Yes Had an appointment Been Scheduled?: Yes Date of Scheduled Appointment: 07/28/2018 - Speicalist Appointments Have you seen any other specialist since your 1st Admission?: No - I. Interview patient and/or Family Difficulty reaching your doctor or getting an office appt?: No Have you had trouble purchasing/ or taking medication?: No Have you had trouble with getting meals at home?: No Describe your typical meals since you have been home: 34 year old son of Miguel's field liability generalist does the cooking. Miguel reports that he does not know how to cook. Did you feel ready for discharge when you left the last time: Yes If patient did not receive services, were there orders at: No Did you call your physician beore you came to the ED?: No Did your physician tell you to come in?: No - If the patient had a VNA ordered Did the patient have a VNA order?: No - ED visits How many ED visits in the past 12 months: 7
--- NOTE | 2018-07-30 07:05 | INITIAL_ITS ---
- If Service Date Differs Date of service: 07/30/18 (\) Time of Service: 07:00 Care Management Initial Assess REASON FOR HOSPITALIZATION:: Chest pain, possible Stroke. PAST MEDICAL HISTORY/PAST SURGICAL HISTORY:: Vitamin B12 deficiency, neurological disorder, suicidal ideations, hemiparesis, epilepsy, cervical stenosis of spinal canal, atherosclerosis of coronary artery, COPD, adjustment disorder with mixed anxiety and depressed mood, [place], osteoarthritis, TBI, CVA, asthma, anxiety, adjustment disorder. Surgical hx: acromioplasty, arthroplasty of knee, colonoscopy, coronary stent, EGD-MAC, hernia repair (inguinal and umbilical), laminectomies C3-6. PREVIOUS FUNCTIONAL STATUS/SOCIAL/FAMILY SUPPORTS:: Miguel resides in a home with his sewer contractor, Mery and her 34 year old son, who Miguel reportedly does not get along with. He is currently looking for alternative housing and has been making phone calls and actively looking. 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 Miguel ambulates using a wheel chair and is independent with his ADLs. Miguel utilizes [employer] and friends for transportation to appointments and errands. CURRENT FUNCTIONAL STATUS:: Miguel is lying in bed when CM visits this morning. He is engaged in conversation and is talkative. Miguel denies chest pain and pressure at this time and states that he is very tired. 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 At that time the spray booth operator reportedly asked him not to come back due the mistakes he had been making. Miguel said his heart is broken and he has lost all of his friends (who were affiliated with the religion). asked if he would want to go back if they let him, and he replied yes. CM asked if Miguel would like to make a phone call to the spray booth operator, and Miguel said yes. CM will phone [facility] and find out what's going on. Miguel has been actively looking for new housing. Miguel reports that Lana, [facility] oracle consultant, is a good support person for him. CM will let Lana know that Miguel would like a visit when she is available. Miguel denies SI and depression at this time. When asked how he got over this (his recent admission was for SI) he said he spoke with a lot of people and resolved the feelings. Miguel reports that he has not been eating and does not have an appetite. CM reminds him to drink fluids and he reports that he has been drinking adequate water. ADVANCE DIRECTIVES:: On file at [facility]. Has patient been provided with information about the portal?: Yes Did the patient sign up for the portal?: No CODE STATUS:: Full Code INSURANCE COVERAGE / FINANCIAL ISSUES:: Medicare. CURRENT HOME/COMMUNITY SERVICES/EQUIPMENT:: [facility], [place] [facility], [employer].. PRIMARY CARE PHYSICIAN:: Aissatou Briggs. POTENTIAL DISCHARGE NEEDS:: Follow up appointment with MD. PATIENT/FAMILY EDUCATION NEEDS:: Discharge education, any limitations and follow up plan of care. Ask Me Three discussion. ANTICIPATED BARRIERS TO DISCHARGE:: No barriers to discharge. TRANSPORTATION:: Miguel will transport via [facility] or with a friend via private vehicle. PLAN:: Miguel will discharge home when medically ready per MD. Anticipate patient will discharge with no services and follow up with PCP. CM will continue to offer support to patient and care team regarding discharge planning and disposition. Readmission - Within the Past 30 Days Yes or No: Y - Date of First Admission Date of 1st Admission: 07/21/18 (Suicidal Ideations) - Date of this Admission Date of Admission: 07/29/18 This admission was: Through ED - Office Visit Since 1st Admission Have you seen your PCP in the office since discharge?: Yes Had an appointment Been Scheduled?: Yes Date of Scheduled Appointment: 07/28/2018 - Speicalist Appointments Have you seen any other specialist since your 1st Admission?: No - I. Interview patient and/or Family Difficulty reaching your doctor or getting an office appt?: No Have you had trouble purchasing/ or taking medication?: No Have you had trouble with getting meals at home?: No Describe your typical meals since you have been home: 34 year old son of Miguel' s sewer contractor does the cooking. Miguel reports that he does not know how to cook. Did you feel ready for discharge when you left the last time: Yes If patient did not receive services, were there orders at: No Did you call your physician beore you came to the ED?: No Did your physician tell you to come in?: No - If the patient had a VNA ordered Did the patient have a VNA order?: No - ED visits How many ED visits in the past 12 months: 7
[2018-07-30] MEDS: Isosorbide Mononitrate 30 MG TABCR PO (07:58)
[2018-07-30] MEDS: Magnesium Oxide 400 MG TAB PO (07:59)
[2018-07-30] MEDS: Citalopram 20 MG TAB 40 MG PO (07:59)
[2018-07-30] MEDS: Sucralfate 1 GM TAB PO ×4 (07:59→21:07)
[2018-07-30] MEDS: Gabapentin 600 MG TAB PO ×3 (07:59→20:49)
[2018-07-30] MEDS: Omeprazole 20 MG CAPCR 40 MG PO (07:59)
[2018-07-30] MEDS: Aspirin E.C. 81 MG TABEC PO (07:59)
[2018-07-30] MEDS: lamoTRIgine 100 MG TAB PO (08:13)
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
[2018-07-30] MEDS: Atorvastatin 40 MG TAB 80 MG PO (20:48)
[2018-07-30] MEDS: traZODone 50 MG TAB PO (21:07)
[2018-07-31] VITALS (7 sets, daily range): BP systolic 109–134; BP diastolic 66–73; PULSE 45–60; RESP 18–20; TEMP 36.4–37.1; O2SAT 94–95
[2018-07-31] MEDS: fentaNYL 50 MCG PATCH TD (07:51)
[2018-07-31] MEDS: Patch Removal 1 EACH TP (07:52)
[2018-07-31] MEDS: Clopidogrel 75 MG TAB PO (07:54)
[2018-07-31] MEDS: Pantoprazole 40 MG TABCR PO (07:54)
[2018-07-31] MEDS: lamoTRIgine 100 MG TAB PO (07:54)
[2018-07-31] MEDS: Magnesium Oxide 400 MG TAB PO (07:54)
[2018-07-31] MEDS: Isosorbide Mononitrate 30 MG TABCR PO (07:55)
[2018-07-31] MEDS: Sucralfate 1 GM TAB PO ×4 (07:55→22:17)
[2018-07-31] MEDS: Aspirin E.C. 81 MG TABEC PO (07:55)
[2018-07-31] MEDS: Citalopram 20 MG TAB 40 MG PO (07:55)
[2018-07-31] MEDS: Gabapentin 600 MG TAB PO ×3 (07:55→22:16)
--- NOTE | 2018-07-31 14:48 | PDOC.CMPRO ---
- If Service Date Differs Date of service: 07/31/18 Time of Service: 14:48 Care Management Progress Note S/O: Miguel is sitting in his chair when CM visits this morning. Miguel reports that he is not having any chest pain or pressure but that his left leg and arm are still not working. PT apparently worked with Miguel today and he reports that it went as well as it could have. He continues to be saddened by his recent dismissal from the [employer]. CM will be phoning the [facility] on Wednesday and following up with Chaplain Lana, who has reportedly been a good support to him. Lana will be out of the office on Wednesday and Yazmin Kwon will be filling in for her. Miguel is agreeable to having Yazmin visit with him. CM emailed Yazmin asking for a visit with Miguel. Miguel reports that no one from his family cares about him and that he is unsure how he will do living on his own. Miguel said he does not want to go to the [facility] (when CM questioned short term rehab at a SNF for strengthening). Miguel said he would be willing to to go to [facility] but that they won't take him because of money and his insurance. CM will follow up with [facility] on Wednesday 08/01. Miguel continues to be monitored on telemetry. A: 63 year old male admitted with chest pain and possible stroke. P: Miguel will discharge when medically ready per MD. Anticipate he will discharge home vs. SNF and follow up with his PCP. Miguel will transport via [facility] w/c van. CM will continue to provide support to patient and care team regarding discharge planning and disposition
--- NOTE | 2018-07-31 15:06 | CMPROGNOTE_ITS ---
- If Service Date Differs Date of service: 07/31/18 Time of Service: 14:48 Care Management Progress Note S/O: Miguel is sitting in his chair when CM visits this morning. Miguel reports that he is not having any chest pain or pressure but that his left leg and arm are still not working. PT apparently worked with Miguel today and he reports that it went as well as it could have. He continues to be saddened by his recent dismissal from the [employer]. CM will be phoning the [employer] on Wednesday and following up with Chaplain Lana, who has reportedly been a good support to him. Lana will be out of the office on Wednesday and Yazmin Kwon will be filling in for her. Miguel is agreeable to having Yazmin visit with him. CM emailed Yazmin asking for a visit with Miguel. Miguel reports that no one from his family cares about him and that he is unsure how he will do living on his own. Miguel said he does not want to go to the [facility] (when CM questioned short term rehab at a SNF for strengthening). Miguel said he would be willing to to go to [facility] but that they won't take him because of money and his insurance. CM will follow up with [facility] on Wednesday 08/01. Miguel continues to be monitored on telemetry. A: 63 year old male admitted with chest pain and possible stroke. P: Miguel will discharge when medically ready per MD. Anticipate he will discharge home vs. SNF and follow up with his PCP. Miguel will transport via [facility] w/c van. CM will continue to provide support to patient and care team regarding discharge planning and disposition
--- NOTE | 2018-07-31 18:22 | PGE_ITS ---
Assessment and Plan (1) Hemiparesis: Current visit: Yes Status: Acute Worsening left-sided hemiparesis likely on the basis of extension of his previous CVA. Put in for MRI without contrast for tomorrow morning. Ask Dr. Caceres to reevaluate from the point of view of neurology. He is on Plavix and low-dose aspirin. (2) Epilepsy posttraumatic: Current visit: Yes Status: Acute Holding on Dilantin because of significant bradycardia. No evidence of seizure activity. (3) Chest pain: Current visit: Yes Status: Acute Recurrent brief episodes of chest discomfort. Some of this could be related to his bradycardia. No evidence of acute coronary syndrome. Continue to monitor on telemetry and monitor his exam. Subjective Interval history since last seen: Admitted 3 days ago because of worsening left- sided weakness. He says he still weak on that left side, he worked with physical therapy today and could tell that he was not back to baseline. He is somewhat despondent about his ongoing health problems. He still getting some intermittent chest pain. Heart rates have been coming up gradually. No ill effects thus far from holding his Dilantin. No seizure activity. Exam Narrative Exam Narrative: Debilitated man lying in the reclining chair. He flinches when I go anywhere near his right knee where he has a small bandage over a superficial abrasion. He still holding his left side in a protective mode. He can use the upper left arm reasonably well. Left leg remains nearly flaccid. Objective Objective Clinical Data: Vital Signs Temperature 37.1 C 07/31/18 15:14 Temperature Source Tympanic 07/31/18 15:14 Pulse 55 L 07/31/18 15:58 Pulse Rhythm Regular 07/31/18 10:11 Pulse 43 L 07/29/18 23:31 Respiratory Rate 18 07/31/18 15:14 Respiratory Effort Non-Labored 07/31/18 10:11 Respiratory Depth Normal 07/31/18 10:11 Respiratory Pattern Normal 07/31/18 10:11 Blood Pressure 112/66 07/31/18 15:14 Blood Pressure Mean 70 07/29/18 23:31 Blood Pressure Position Supine 07/29/18 18:26 Pulse Oximetry 95 07/31/18 15:14 Oxygen Delivery Method Room Air 07/31/18 15:14 Oxygen Flow Rate 0 07/31/18 15:14 Pain Level 0 07/31/18 12:06 Comment 07/30/18 13:42 Intake & Output 07/30/18 07/31/18 07/31/18 23:59 11:59 23:59 Intake Total 490 / 490 600 / 600 250 / 250 Output Total 1200 / 1200 600 / 600 550 / 550 Balance -710 / -710 0 / 0 -300 / -300 Intake: Oral 490 / 490 600 / 600 250 / 250 Output: Urine 1200 / 1200 600 / 600 550 / 550 Other: Urine Color Yellow Yellow Yellow Urine Appearance Clear Clear Clear Urine Odor Normal Normal Voiding Methods Urinal Urinal Urinal Laboratory Results WBC 5.85 k/cumm (4.4-10.8) 07/29/18 18:37 RBC 4.37 m/cumm (4.50-6.00) L 07/29/18 18:37 Hgb 13.4 g/dL (13.5-17.5) L 07/29/18 18:37 Hct 39.8 % (40.0-50.0) L 07/29/18 18:37 MCV 91.1 fL (80-95) 07/29/18 18:37 MCH 30.7 pg (27.0-33.0) 07/29/18 18:37 MCHC 33.7 g/dL (32.0-36.0) 07/29/18 18:37 RDW 13.4 % (11.8-14.1) 07/29/18 18:37 Plt Count 143 x1000/uL (130-400) 07/29/18 18:37 MPV 9.9 fL (8.0-11.0) 07/29/18 18:37 Immature Gran % 0.2 07/29/18 18:37 Neutrophils % 57.8 07/29/18 18:37 Lymphocytes % 23.8 07/29/18 18:37 Monocytes % 12.6 07/29/18 18:37 Eosinophils % 5.1 07/29/18 18:37 Basophils % 0.5 07/29/18 18:37 Absolute Neutrophils 3.38 k/cumm (1.2-6.7) 07/29/18 18:37 Absolute Lymphocytes 1.39 k/cumm (1.2-3.4) 07/29/18 18:37 Absolute Monocytes 0.74 k/cumm (0.11-0.7) H 07/29/18 18:37 Absolute Eosinophils 0.30 k/cumm (0.0-0.7) 07/29/18 18:37 Absolute Basophils 0.03 k/cumm (0.0-0.2) 07/29/18 18:37 Sodium 140 mmol/L (136-145) 07/29/18 19:12 Potassium 4.0 mmol/L (3.5-5.1) 07/29/18 19:12 Chloride 104 mmol/L (98-107) 07/29/18 19:12 Carbon Dioxide 27.9 mmol/L (21.0-32.0) 07/29/18 19:12 Anion Gap 8.1 mmol/L (3-11) 07/29/18 19:12 BUN 14 mg/dL (7-18) 07/29/18 19:12 Creatinine 0.96 mg/dL (0.70-1.30) 07/29/18 19:12 Estimated GFR/1.73 m2 >= 60.00 (mL/min/1.73m2) 07/29/18 19:12 Glucose 87 mg/dL (70-100) 07/29/18 19:12 Calcium 8.7 mg/dL (8.5-10.1) 07/29/18 19:12 Magnesium 2.0 mg/dL (1.8-2.4) 07/29/18 19:12 Total Bilirubin 0.2 mg/dL (0.2-1.0) 07/29/18 19:12 AST 18 U/L (15-37) 07/29/18 19:12 ALT 25 U/L (12-78) 07/29/18 19:12 Alkaline Phosphatase 194 U/L (46-116) H 07/29/18 19:12 Troponin I < 0.02 ng/mL (0.00-0.06) 07/30/18 06:08 Total Protein 6.4 g/dL (6.4-8.2) 07/29/18 19:12 Albumin 3.3 g/dL (3.4-5.0) L 07/29/18 19:12 Phenytoin 7.8 ug/mL (10.0-20.0) L 07/29/18 19:12
[2018-07-31] MEDS: traZODone 50 MG TAB PO (22:14)
[2018-07-31] MEDS: Atorvastatin 40 MG TAB 80 MG PO (22:15)
[2018-07-31] MEDS: Acetaminophen 325 MG TAB 650 MG PO (22:15)
[2018-07-31] MEDS: Mometasone 220 MCG 14 DOSE INHALER 1 PUFF IH (22:17)
[2018-08-01] VITALS (8 sets, daily range): BP systolic 93–121; BP diastolic 52–72; PULSE 51–63; RESP 14–18; TEMP 36.2–36.9; O2SAT 92–98
[2018-08-01] MEDS: lamoTRIgine 100 MG TAB PO ×2 (08:18→21:43)
[2018-08-01] MEDS: Citalopram 20 MG TAB 40 MG PO (08:18)
[2018-08-01] MEDS: Aspirin E.C. 81 MG TABEC PO (08:19)
[2018-08-01] MEDS: Clopidogrel 75 MG TAB PO (08:19)
[2018-08-01] MEDS: Gabapentin 600 MG TAB PO ×3 (08:19→21:43)
[2018-08-01] MEDS: Sucralfate 1 GM TAB PO ×4 (08:19→21:43)
[2018-08-01] MEDS: Isosorbide Mononitrate 30 MG TABCR PO (08:19)
[2018-08-01] MEDS: Magnesium Oxide 400 MG TAB PO (08:19)
[2018-08-01] MEDS: Pantoprazole 40 MG TABCR PO (08:19)
--- NOTE | 2018-08-01 09:02 | DI.MRI_ITS ---
SYMPTOM/DIAGNOSIS: LEFT HEMIPARESIS WORSENING, HX CVA BRAIN MRI: 08/01 MR examination of the brain was performed according to the usual protocol. There was some motion artifact secondary to coughing. There is mild generalized cerebral atrophy and previously described area of presumed encephalomalacia noted in the posterior left temporal lobe with some small low signal foci also again noted on T-1 weighted imaging and right cerebellar hemisphere. No change in appearance of these findings in comparison with examination of 06/28/17. A couple of small high signal foci are noted in periventricular white matter bilaterally, no change from previous examination. The findings are consistent with mild small vessel related ischemic changes. No gross abnormality of flow void of [place] [employer] vasculature, yesterday's CTA was also negative. The orbital and temporal bone structures appear intact. No diffusion restriction identified to suggest the presence of infarction. Susceptibility weighted imaging shows no evidence of intracranial hemorrhage. CONCLUSION: Stable appearance of brain since 06/28/17. Areas of apparent encephalomalacia of posterior left temporal lobe and right cerebellum.
--- NOTE | 2018-08-01 11:42 | PTTR_ITS ---
Date of service: 08/01/18 Time of Service: 11:10 PT Notes Inpatient Physical Therapy Treatment Note Date: 08/01/18 PRECAUTIONS: Fall precautions, L AFO and sneakers with mobility SUBJECTIVE: Pt lying in bed, agreeable to PT session. States he has not walked in a year but would like to try walking. Reports at home he performs independent transfers bed to wheelchair and wheelchair to bed with stand pivot only, no cane or walker, independently. Uses wheelchair as primary mode of transportation. States he has a tub bench and transfers wheelchair to tub bench for bathing. OBJECTIVE: General observation: telemetry, L AFO and sneakers PAIN: no c/o pain BED MOBILITY/TRANSFERS * pt independent with donning L AFO and bilateral sneakers for transfers Rolling L/R: independent Supine-sit: HOB 40 degrees, SBA pushing with L elbow into bed. Able to get legs to edge of bed independently Bed-Chair: SBA stand pivot transfer. Pt leans anteriorly and reaches to arm of chair then turns body to sit into chair. Sit-stand: MinAx1 with FWW, stood at chair side to initiate gait training. Pt utilizes R UE to get to standing position, tendency to extend L LE requiring therapist to block left foot to facilitate left knee flexion Stand-sit: CGA, pt reaching back to chair with R UE GAIT Assistive Device: FWW, L AFO and bilateral sneakers Weight bearing: as tolerated Assist: minAx1 Distance: 20ftx2 Deviation: steppage gait with left LE, adduction of L LE with swing phase, internal rotation bilateral feet with stance phase, narrow base of support. Pt able to take steps with cues for increasing base of support and assist of gait belt for stability. Pt left up in recliner chair with legs elevated after session completed, experiencing LE tremors with sitting in chair. THEREX: AAROM L UE for ROM shoulder, elbow and wrist extension BALANCE Static sitting: good Dynamic sitting: good Static standing: poor Dynamic standing : poor ASSESSMENT: Pt very motivated to progress function and mobility, and participate in therapy session. Able to perform transfers bed to chair with SBA , able to initiate gait training with FWW (pt reports the first time in a year) with one person assist and gait belt. Pt with weakness and fatigue with functional mobility but presenting as a good rehab candidate for therapy as he is motivated to improve strength and mobility. Pt is at functional level to be able to return to home setting with home PT, but he may benefit from short rehab stay for more intensive therapy to progress his strengthening, balance, transfers and gait training with FWW in order to improve his strength and independence when he returns to home setting. Pt would benefit from OT consult in hospital setting to assess ADLS. Goals: Goals X1 week 1. Supine-Sit with head of bed to 30 degrees supervision 2. Sit-Supine with head of bed to 30 degrees supervision 3. Sit-Stand mod assist x1 4. Stand-Sit mod assist x1 5. Gait mod assist x1-3 steps with front wheel walker 6: Independent in Home program Pt met goals 3, 4, 5 Updated goals: x 1 week 1. Supine-Sit: independent 2. Sit-Supine: independent 3. Sit-Stand : CGA with FWW 4. Stand-Sit : SBA 5. Gait: CGA with FWW 40ftx2 with L JESS and star 6. Balance: static and dynamic sitting balance to normal PLAN: Progress strengthening Progress transfers [place] gait mobility TREATMENT CODE/TIME: 23 min TAx2 11:10 Laury Feliz PT
--- NOTE | 2018-08-01 11:49 | PHARADMIT ---
Admission Pharmacy Clinical Review Chest Pain, Possible STROKE Code Status Full Code Current Weight Wgt- 57.3 kg Renally Cleared and Narrow Therapeutic Index Meds CrCl~ 63 mL/min Meds-OK QTc Value / Action Taken na BP Control, Fever BP- 97/60 Tmax- 37.1C Electrolytes reviewed Na- 140 K+4.0 Mag- 2.0 DVT Prophylaxis Plavix, Opiate Usage / Scheduled Bowel Regimen Ordered Yes No Plt/SCr for Heparin / Enoxaparin Plts-143 SCr-0.96 INR for Warfarin na H/H stable, WBC/Bands H&H- 13.4/39.8 WBC- 5.5 Antibiotic appropriateness none Cultures and Sensitivities none Surgical ABX d/c within 24 hr na DM control / Insulin Dosing BG- 87 Heart Failure (Check EF%) (FEDERICO's, B-Block, Diuretics) Imdur IV to PO Switch No Home Meds Reviewed Yes Home Meds Not Ordered ASA, B-12,Flovent, MagOx, Phenytoin (DC'd) Triamcinolone Comments Phenytoin- 7.8 (10-20)
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
--- NOTE | 2018-08-01 14:19 | PT.INTREAT ---
Date of service: 08/01/18 Time of Service: 13:38 PT Notes Inpatient Physical Therapy Treatment Note Date: 08/01/18 PRECAUTIONS: Fall Precautions, AFO L ankle and sneakers SUBJECTIVE: Pt sitting in chair, agreeable to therapy session. States he wants to get stronger. OBJECTIVE: General observation: telemetry PAIN: no c/o pain BED MOBILITY/TRANSFERS * L AFO and sneakers on for all transfers Sit-stand: minAx1 Stand-sit: CGA with FWW Chair-bed: CGA with FWW sit-supine: HOB flat, Ermelinda for L LE GAIT * L AFO and sneakers on for all gait Assistive Device: FWW Weight bearing: as tolerated Assist: minAx1 Distance: 10ftx2 Deviation: pt more shaky and tired this afternoon compared to morning, able to perform short distance gait with FWW with assist. Continues with narrow base of support, adduction L LE and scissor pattern L LE with swing phase of gait. Pt returned to bed after session completed with L UE elevated on pillow for support, fall alarm activated. THEREX: see flow sheet for details. Focused on bilateral LE strengthening and left UE stretching and strengthening. ASSESSMENT: Pt participated well in therapy session, able to initiate L UE stretching and strengthening and bilateral LE strengthening. Pt very weak with therex and fatigues easily resulting in resting tremors due to weakness, tremors resolve with repositioning and rest. Pt is a good rehab candidate. Requested OT consult from for ADL training and assessment and L UE strengthening. PLAN: Progress transfers Progress gait Progress strengthening TREATMENT CODE/TIME: 38min TPx2 TAx1 [id number] Laury Feliz PT
--- NOTE | 2018-08-01 14:26 | PTTR_ITS ---
Date of service: 08/01/18 Time of Service: 13:38 PT Notes Inpatient Physical Therapy Treatment Note Date: 08/01/18 PRECAUTIONS: Fall Precautions, AFO L ankle and sneakers SUBJECTIVE: Pt sitting in chair, agreeable to therapy session. States he wants to get stronger. OBJECTIVE: General observation: telemetry PAIN: no c/o pain BED MOBILITY/TRANSFERS * L AFO and sneakers on for all transfers Sit-stand: minAx1 Stand-sit: CGA with FWW Chair-bed: CGA with FWW sit-supine: HOB flat, Ermelinda for L LE GAIT * L AFO and sneakers on for all gait Assistive Device: FWW Weight bearing: as tolerated Assist: minAx1 Distance: 10ftx2 Deviation: pt more shaky and tired this afternoon compared to morning, able to perform short distance gait with FWW with assist. Continues with narrow base of support, adduction L LE and scissor pattern L LE with swing phase of gait. Pt returned to bed after session completed with L UE elevated on pillow for support , fall alarm activated. THEREX: see flow sheet for details. Focused on bilateral LE strengthening and left UE stretching and strengthening. ASSESSMENT: Pt participated well in therapy session, able to initiate L UE stretching and strengthening and bilateral LE strengthening. Pt very weak with therex and fatigues easily resulting in resting tremors due to weakness, tremors resolve with repositioning and rest. Pt is a good rehab candidate. Requested OT consult from for ADL training and assessment and L UE strengthening. PLAN: Progress transfers Progress gait Progress strengthening TREATMENT CODE/TIME: 38min TPx2 TAx1 [id number] Laury Feliz PT
--- NOTE | 2018-08-01 15:41 | PDOC.CMPRO ---
- If Service Date Differs Date of service: 08/01/18 Time of Service: 15:41 Care Management Progress Note S/O: Miguel is lying in bed when CM visits this morning. Miguel is awaiting a MRI and continues to be monitored on telemetry. Miguel and CM discussed 'next steps' and Miguel reported that he would like to go to a SNF for short term rehabilitation and strengthening. He would be interested in either [facility] or the [facility] but is unsure of how/what his insurance looks like. CM spoke with Katerine at the [facility] and faxed referrals to [facility] and [facility]. Katerine reported that all looked ok with funding for a short term rehab stay and that she would be able to offer a bed. CM will follow up with Katerine, Bijal, and Miguel on Wednesday regarding bed availability. Miguel has asked for a letter to be written regarding authorizing his brother to poultry picker checks etc. at the bank. CM drafted a letter; to be notarized by CM on 08/02. A: 63 year old male admitted with chest pain and possible stroke. P: Miguel will discharge when medically ready per MD. Anticipate he will discharge home vs. SNF and follow up with his PCP. Miguel will transport via [facility] w/c van. CM will continue to provide support to patient and care team regarding discharge planning and disposition
[2018-08-01] MEDS: Acetaminophen 325 MG TAB 650 MG PO ×2 (15:42→21:43)
--- NOTE | 2018-08-01 15:59 | CMPROGNOTE_ITS ---
- If Service Date Differs Date of service: 08/01/18 Time of Service: 15:41 Care Management Progress Note S/O: Miguel is lying in bed when CM visits this morning. Miguel is awaiting a MRI and continues to be monitored on telemetry. Miguel and CM discussed 'next steps' and Miguel reported that he would like to go to a SNF for short term rehabilitation and strengthening. He would be interested in either [facility] or the [facility] but is unsure of how/what his insurance looks like. CM spoke with Katerine at the [facility] and faxed referrals to [facility] and [facility]. Katerine reported that all looked ok with funding for a short term rehab stay and that she would be able to offer a bed. CM will follow up with Katerine, Bijal, and Miguel on Wednesday regarding bed availability. Miguel has asked for a letter to be written regarding authorizing his brother to picker checks etc. at the bank. CM drafted a letter; to be notarized by CM on 08/02. A: 63 year old male admitted with chest pain and possible stroke. P: Miguel will discharge when medically ready per MD. Anticipate he will discharge home vs. SNF and follow up with his PCP. Miguel will transport via [facility] w/c van. CM will continue to provide support to patient and care team regarding discharge planning and disposition
--- NOTE | 2018-08-01 18:18 | PGE_ITS ---
Assessment and Plan (1) CVA (cerebral vascular accident): Current visit: Yes Status: Chronic Chronic left-sided hemiparesis appears no worse. The MRI today was reassuring there is no new infarct. Continue to work with physical therapy and Occupational Therapy. Overall plan is to get him into health and rehab for acute rehabilitation. (2) Weakness: Current visit: Yes Status: Acute Overall weakness is improving. Continue physical therapy (3) Epilepsy posttraumatic: Current visit: Yes Status: Chronic Now off of Dilantin. Increased Lamictal to 100 mg twice daily. Continue seizure precautions Subjective Interval history since last seen: Patient is quite pleased that he was able to walk with physical therapy today. He says he has not been able to walk for several months. He has been wheelchair-bound. The overall weakness on the left side is slightly improved. He had an MRI today that showed no new acute infarct. He has been off the Dilantin without any seizure activity. We agreed to DC Dilantin and increase the Lamictal because of bradycardia. Exam Narrative Exam Narrative: On exam he is somewhat pleased and in good spirits. He does seem to have some trouble with word finding. He continues to hold his left arm in a flaccid manner but when distracted can use the arm relatively well. Objective Objective Clinical Data: Vital Signs Temperature 36.7 C 08/01/18 15:50 Temperature Source Tympanic 08/01/18 15:50 Pulse 57 L 08/01/18 15:50 Pulse Rhythm Regular 08/01/18 08:25 Pulse 43 L 07/29/18 23:31 Respiratory Rate 18 08/01/18 15:50 Respiratory Effort 08/01/18 08:25 Respiratory Depth Normal 08/01/18 08:25 Respiratory Pattern Normal 08/01/18 08:25 Blood Pressure 121/72 08/01/18 15:50 Blood Pressure Mean 70 07/29/18 23:31 Blood Pressure Position Supine 07/29/18 18:26 Pulse Oximetry 92 L 08/01/18 15:50 Oxygen Delivery Method Room Air 08/01/18 15:50 Oxygen Flow Rate 0 08/01/18 15:50 Pain Level 2 08/01/18 16:42 Comment 07/30/18 13:42 Intake & Output 07/31/18 08/01/18 08/01/18 23:59 11:59 23:59 Intake Total 730 / 730 240 / 240 250 / 250 Output Total 900 / 900 700 / 700 Balance -170 / -170 -460 / -460 250 / 250 Intake: Oral 730 / 730 240 / 240 250 / 250 Output: Urine 900 / 900 700 / 700 Other: Urine Color Yellow Yellow Yellow Urine Appearance Clear Clear Clear Urine Odor Normal Stool Size Moderate Stool Characteristics Soft Formed Voiding Methods Urinal Urinal Laboratory Results WBC 5.85 k/cumm (4.4-10.8) 07/29/18 18:37 RBC 4.37 m/cumm (4.50-6.00) L 07/29/18 18:37 Hgb 13.4 g/dL (13.5-17.5) L 07/29/18 18:37 Hct 39.8 % (40.0-50.0) L 07/29/18 18:37 MCV 91.1 fL (80-95) 07/29/18 18:37 MCH 30.7 pg (27.0-33.0) 07/29/18 18:37 MCHC 33.7 g/dL (32.0-36.0) 07/29/18 18:37 RDW 13.4 % (11.8-14.1) 07/29/18 18:37 Plt Count 143 x1000/uL (130-400) 07/29/18 18:37 MPV 9.9 fL (8.0-11.0) 07/29/18 18:37 Immature Gran % 0.2 07/29/18 18:37 Neutrophils % 57.8 07/29/18 18:37 Lymphocytes % 23.8 07/29/18 18:37 Monocytes % 12.6 07/29/18 18:37 Eosinophils % 5.1 07/29/18 18:37 Basophils % 0.5 07/29/18 18:37 Absolute Neutrophils 3.38 k/cumm (1.2-6.7) 07/29/18 18:37 Absolute Lymphocytes 1.39 k/cumm (1.2-3.4) 07/29/18 18:37 Absolute Monocytes 0.74 k/cumm (0.11-0.7) H 07/29/18 18:37 Absolute Eosinophils 0.30 k/cumm (0.0-0.7) 07/29/18 18:37 Absolute Basophils 0.03 k/cumm (0.0-0.2) 07/29/18 18:37 Sodium 140 mmol/L (136-145) 07/29/18 19:12 Potassium 4.0 mmol/L (3.5-5.1) 07/29/18 19:12 Chloride 104 mmol/L (98-107) 07/29/18 19:12 Carbon Dioxide 27.9 mmol/L (21.0-32.0) 07/29/18 19:12 Anion Gap 8.1 mmol/L (3-11) 07/29/18 19:12 BUN 14 mg/dL (7-18) 07/29/18 19:12 Creatinine 0.96 mg/dL (0.70-1.30) 07/29/18 19:12 Estimated GFR/1.73 m2 >= 60.00 (mL/min/1.73m2) 07/29/18 19:12 Glucose 87 mg/dL (70-100) 07/29/18 19:12 Calcium 8.7 mg/dL (8.5-10.1) 07/29/18 19:12 Magnesium 2.0 mg/dL (1.8-2.4) 07/29/18 19:12 Total Bilirubin 0.2 mg/dL (0.2-1.0) 07/29/18 19:12 AST 18 U/L (15-37) 07/29/18 19:12 ALT 25 U/L (12-78) 07/29/18 19:12 Alkaline Phosphatase 194 U/L (46-116) H 07/29/18 19:12 Troponin I < 0.02 ng/mL (0.00-0.06) 07/30/18 06:08 Total Protein 6.4 g/dL (6.4-8.2) 07/29/18 19:12 Albumin 3.3 g/dL (3.4-5.0) L 07/29/18 19:12 Phenytoin 7.8 ug/mL (10.0-20.0) L 07/29/18 19:12 Objective Narrative Objective Narrative: BRAIN MRI: 08/01 MR examination of the brain was performed according to the usual protocol. There was some motion artifact secondary to coughing. There is mild generalized cerebral atrophy and previously described area of presumed encephalomalacia noted in the posterior left temporal lobe with some small low signal foci also again noted on T-1 weighted imaging and right cerebellar hemisphere. No change in appearance of these findings in comparison with examination of 06/28/17. A couple of small high signal foci are noted in periventricular white matter bilaterally, no change from previous examination. The findings are consistent with mild small vessel related ischemic changes. No gross abnormality of flow void of [place] vasculature, yesterday's CTA was also negative. The orbital and temporal bone structures appear intact. No diffusion restriction identified to suggest the presence of infarction. Susceptibility weighted imaging shows no evidence of intracranial hemorrhage. CONCLUSION: Stable appearance of brain since 06/28/17. Areas of apparent encephalomalacia of posterior left temporal lobe and right cerebellum.
[2018-08-01] MEDS: traZODone 50 MG TAB PO (21:43)
[2018-08-01] MEDS: Atorvastatin 40 MG TAB 80 MG PO (21:43)
[2018-08-01] MEDS: Mometasone 220 MCG 14 DOSE INHALER 1 PUFF IH (21:51)
[2018-08-02 01:16] VITALS: PULSE 47
[2018-08-02 07:10] VITALS: BP 134/80; PULSE 57; RESP 18; TEMP 36.6; O2SAT 98
[2018-08-02 07:30] VITALS: PULSE 51
[2018-08-02] MEDS: Normal Saline Flush 10 ML SYR IVP (08:12)
[2018-08-02] MEDS: lamoTRIgine 100 MG TAB PO (08:12)
[2018-08-02] MEDS: Pantoprazole 40 MG TABCR PO (08:12)
[2018-08-02] MEDS: Isosorbide Mononitrate 30 MG TABCR PO (08:12)
[2018-08-02] MEDS: Magnesium Oxide 400 MG TAB PO (08:12)
[2018-08-02] MEDS: Citalopram 20 MG TAB 40 MG PO (08:12)
[2018-08-02] MEDS: Gabapentin 600 MG TAB PO (08:13)
[2018-08-02] MEDS: Sucralfate 1 GM TAB PO ×2 (08:13→11:33)
[2018-08-02] MEDS: Clopidogrel 75 MG TAB PO (08:13)
[2018-08-02 08:55] VITALS: O2SAT 99
[2018-08-02] MEDS: Mometasone 220 MCG 14 DOSE INHALER 1 PUFF IH (09:02)
--- NOTE | 2018-08-02 09:49 | PDOC.CMDIS ---
- If Service Date Differs Date of service: 08/02/18 Time of Service: 09:50 LACE Index Scoring Tool - Questions: Length of Stay (in days): 4 - 6 Acuity (Admit via E.D.?): Yes Comorbidities: Cerebrovascular Disease, Chronic Pulmonary Disease E.D. Visits: 8 - Answers: Total Score: 14 Risk of Readmission: High Risk Care Management Discharge Reason for Hospitalization: Chest pain, possible Stroke. Discharge Plan: LACHO spoke with [facility], whom states that they do not have a bed. Miguel states that he is interested in [facility]. LACHO spoke with Katerine, [facility], whom states that she is able to accept Miguel for today. Miguel states that he has had family members pass at [facility], CM notified Katerine of this and [facility] will support Miguel throughout his stay. LACHO spoke with [facility], w/c van has been arranged for 1130. notified Pavel Rivera (RN), Jairon (FLOORING INSTALLER), Federica (DRYING MACHINE RECEIVER), and ARACEIL (FLOORING INSTALLER [place]), of time/mode of transport. SNF forms have been completed. Miguel also requested a letter for his bank so that his son can withdraw money for bills. LACHO provided Miguel with this letter and notarized this for him. Patient/Family Education Needs: Review DC instructions, any limitations, and ongoing DC planning discussion. Review Ask Me Three Services Needed at Discharge: Snf Facility ([facility]), Transportation ([facility])
--- NOTE | 2018-08-02 09:58 | CMDISCH_ITS ---
- If Service Date Differs Date of service: 08/02/18 Time of Service: 09:50 LACE Index Scoring Tool - Questions: Length of Stay (in days): 4 - 6 Acuity (Admit via E.D.?): Yes Comorbidities: Cerebrovascular Disease, Chronic Pulmonary Disease E.D. Visits: 8 - Answers: Total Score: 14 Risk of Readmission: High Risk Care Management Discharge Reason for Hospitalization: Chest pain, possible Stroke. Discharge Plan: LACHO spoke with [facility], whom states that they do not have a bed. Miguel states that he is interested in [facility]. LACHO spoke with Katerine , [facility], whom states that she is able to accept Miguel for today. Miguel states that he has had family members pass at [facility], CM notified Katerine of this and [facility] will support Miguel throughout his stay. LACHO spoke with [facility], w/c van has been arranged for 1130. notified Pavel Rivera (RN), Jairon (WELDER/INSTALLER), Federica (BLENDING SUPERVISOR), and ARACELI (WELDER/INSTALLER Finishing Tunnel Operator), of time/mode of transport. SNF forms have been completed. Miguel also requested a letter for his bank so that his son can withdraw money for bills. LACHO provided Miguel with this letter and notarized this for him. Patient/Family Education Needs: Review DC instructions, any limitations, and ongoing DC planning discussion. Review Ask Me Three Services Needed at Discharge: [facility] Facility ([facility]), Transportation ([facility])
[2018-08-02 10:00] VITALS: PULSE 66
--- NOTE | 2018-08-02 10:00 | PT.INDS ---
Date of service: 08/02/18 Time of Service: 09:40 PT Notes Inpatient Physical Therapy Discharge Summary Date: 08/02/18 Dates of Service: 07/31/18-08/02/18 SUBJECTIVE: Pt lying in bed, agreeable to therapy session, states he wants to walk further today. I really want to be able to walk again. OBJECTIVE: General observation: telemetry Pain: no c/o pain BED MOBILITY * Pt independent with donning L AFO and bilateral sneakers Supine-sit: HOB 40 degrees, SBA Sit-stand: minAx1 with FWW Bed-chair: CGA with FWW Stand-sit: CGA GAIT * L AFO and bilateral sneakers CGA with FWW 50ftx2, gait belt assist. 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 Pt with improved upper body and lower body strength, able to increase distance today. TOILETING: Pt able to gait train to toilet with FWW and utilize grab bars to assist himself on/off toilet. maxA for change of pull up and cleaning brittnee-anal area due to decreased standing balance. THEREX Seated LE therex: bilateral ankle pumps, Long arc quads L AA x 10, R x10 ASSESSMENT: Pt very motivated to improve strength and functional mobility. Pt was seen for 4 visits this admission. Progressed from [place] bed transfers to SBA, from unable to stand to [place]/CGA standing transfers, from wheelchair/bed bound to CGA gait with FWW 50ftx2. Pt is a good rehab candidate and will benefit from continued PT [facility]. GOALS Goals: Goals X1 week 1. Supine-Sit independent 2. Sit-Supine independent 3. Sit-Stand CGA with FWW 4. Stand-Sit SBA 5. Gait CG Awitgh FWW 40ftx2 6: Balance: static and dynamic sitting balance to normal Pt met goals # 5 - did not meet remaining goals due to discharge, recommend continued PT DISCHARGE RECOMMENDATIONS: [facility] TREATMENT CODE/TIME: 25min TAx1 TPx1 9:40 G Codes mobility walking moving around projected [id number], discharge GP [id number] CK Laury Feliz PT
--- NOTE | 2018-08-02 10:13 | INDS_ITS ---
Date of service: 08/02/18 Time of Service: 09:40 PT Notes Inpatient Physical Therapy Discharge Summary Date: 08/02/18 Dates of Service: 07/31/18-08/02/18 SUBJECTIVE: Pt lying in bed, agreeable to therapy session, states he wants to walk further today. I really want to be able to walk again. OBJECTIVE: General observation: telemetry Pain: no c/o pain BED MOBILITY * Pt independent with donning L AFO and bilateral sneakers Supine-sit: HOB 40 degrees, SBA Sit-stand: minAx1 with FWW Bed-chair: CGA with FWW Stand-sit: CGA GAIT * L AFO and bilateral sneakers CGA with FWW 50ftx2, gait belt assist. Deviation: pt able to seo consultant with L hand on FWW, adduction L LE with each swing phase, cues to widen base of support. Pt with improved upper body and lower body strength, able to increase distance today. TOILETING: Pt able to gait train to toilet with FWW and utilize grab bars to assist himself on/off toilet. maxA for change of pull up and cleaning brittnee-anal area due to decreased standing balance. THEREX Seated LE therex: bilateral ankle pumps, Long arc quads L AA x 10, R x10 ASSESSMENT: Pt very motivated to improve strength and functional mobility. Pt was seen for 4 visits this admission. Progressed from [place] bed transfers to SBA , from unable to stand to [place]/CGA standing transfers, from wheelchair/bed bound to CGA gait with FWW 50ftx2. Pt is a good rehab candidate and will benefit from continued PT intervention at [facility]. GOALS Goals: Goals X1 week 1. Supine-Sit independent 2. Sit-Supine independent 3. Sit-Stand CGA with FWW 4. Stand-Sit SBA 5. Gait CG Awitgh FWW 40ftx2 6: Balance: static and dynamic sitting balance to normal Pt met goals # 5 - did not meet remaining goals due to discharge, recommend continued PT DISCHARGE RECOMMENDATIONS: [facility] TREATMENT CODE/TIME: 25min TAx1 TPx1 9:40 G Codes mobility walking moving around projected [id number], discharge GP [id number] CK Laury Feliz PT
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
[2018-08-02 11:45] VITALS: BP 106/66; PULSE 69; RESP 20; TEMP 36.4; O2SAT 98
--- NOTE | 2018-08-02 11:47 | NUR.NOTE ---
Nursing Note:Called and gave report to [facility] nurse.
--- NOTE | 2018-08-22 15:00 | IN_ITS ---
Date of service: 08/22/18 PT Notes Physical Therapy Initial Eval PATIENT NAME: JUNAID ARIAS UNIT #: [id number] ADMITTING PROVIDER: STEVENSON BALLARD DPT PRIMARY CARE PROVIDER: DATE OF ADMIT : 07/31/18 : 1955 Date of service: 07/31/18 Time of Service: 09:35 PT Notes Inpatient Physical Therapy Evaluation Date: 07/31/2018 Referring Doctor: Tu Delatorre MD PT Orders: PT CONSULT: History of left side hemiparesis from previous CVA, now worsening left-sided weakness Precautions: Fall Patient Profile/Admitting Diagnosis: Orders received for this 63-year-old male who was admitted to the hospital with chest pain and new onset of chronic left- sided weakness. In the ED several tests were conducted including CT, CT angiogram, EKG, and troponin which were all negative. He is being admitted for further monitoring PMHX: CVA, left sided weakness particularly in the arm, CAD, COPD, chronic low back pain, essential hypertension, GERD, gout, myocardial infarction, history of alcohol/tobacco/drug use, TBI, osteoarthritis, and coronary stent Social History/Home Situation: Patient lives locally in [place] with his significant other and son Equipment Owned/DME: Patient mainly uses a wheelchair for ambulation Subjective: Patient states that he is not doing very well today as he really cannot understand the nature of his recent arm weakness and leg weakness Objective: Mental Status: Alert and oriented to person place and time Pain: Right knee pain 4 out of 10 ROM: Right Upper Extremity: Within normal limits Left Upper Extremity: Actively limited to 90 degrees of shoulder flexion and 20 degrees of extension of the elbow, he has 100 degrees of flexion through the elbow and he holds himself in about 70 degrees of flexion with minor forearm pronation Right Lower Extremity: Within normal limits Left Lower Extremity: Limited to 90 degrees of hip flexion, 20 degrees of extension through the knee, and 100 degrees of flexion to the knee Strength: Right Upper Extremity: 4+ out of 5 globally Left Upper Extremity: Shoulder flexion 3 out of 5, elbow flexion 3 out of 5, elbow extension 4/5, administration clerk strength intact but weak Right Lower Extremity: 4+ out of 5 globally Left Lower Extremity: Hip flexion 3 out of 5, quads 2 out of 5, hamstrings 2 out of 5, dorsiflexion 0 out of 5, plantar flexion 2 out of 5 Neuro: Patient intact to deep touch and sensation through both lower extremities and upper extremities. He does have some significant limitation to light touch particularly the distal of the left knee, but proprioception and kinesthetic awareness appears to be mildly intact Bed Mobility/Transfers: Supine-sit: With head of bed to 45 degrees minimal assist x1 Sit-stand: Not attempted patient refused not attempted patient refused sit to supine: Head of bed at 45 degrees minimal assist x1 Patient did perform some exercises most notably right side ankle pumps x10, straight leg raise bilaterally x10 with assistance through the left, longer quad on the right only x10, shoulder flexion and elbow flexion x10 bilaterally assistance needed to the left Gait: Patient refused Balance: Static Sitting: Fair Dynamic Sitting: Poor Static Standing: Not attempted Dynamic Standing: Not attempted Special Tests: Mobility Limitations Standardized Measure [facility]-PAC 6 clicks Basic Mobility Inpatient Short Form: Raw Score: 10 standardized Score: 32.29 CMS Score: 76.75% CMS Modifier: CL Informed Consent/Education: Patient instructed in purpose of PT consult and plan of care. ASSESSMENT: Patient is a 63-year-old male with a history of left-sided hemiparesis Admitted with acute on chronic left-sided weakness and chest pain Patient presents with the following impairment level findings: Significant assistance needed for maintenance of transfers, virtually no attempt at ambulation, pain to the right knee, limited strength globally through the left side more so limited to the left lower extremity. Pt will benefit from skilled therapy intervention in order to remediate his functional limtations and restore patient to a more appropriate and stable functional level for return to premorbid level of living. It appears currently he at least has some core strength which is a stable platform in which to work from but the goal will be to continue with out of bed activities as this is what he was prior capable of performing. Impairments are contributing to the following functional limitations: AMPAC score CMS Score: 76.75% Patient is assessed as a high complexity initial evaluation 08993 based on the following: History: see above Examination: see above Presentation: Unstable Decision Making: High based on AMPAC and CMS score 76.75% Goals: Goals X1 week 1. Supine-Sit with head of bed to 30 degrees supervision 2. Sit-Supine with head of bed to 30 degrees supervision 3. Sit-Stand mod assist x1 4. Stand-Sit mod assist x1 5. Gait mod assist x1-3 steps with front wheel walker 6: Independent in Home program Plan of Care/Treatment Plan: 1-2x/day, 7 days/week x 1 week. Plan of care has been reviewed with the BOTTOM PRESSER providing the service under Physical Therapy direction. Initiate Physical Therapy intervention for strengthening, bed mobility, transfers, gait, stairs, balance training, use of assistive device. DISCHARGE RECOMMENDATIONS: To home once medically stable TREATMENT CODE/TIME: High complexity initial evaluation 41601 9:35 25 minutes G Codes mobility walking moving around, [id number] due to his heavy assistance needed for transfers and current state of inactivity. Goal is to return to premorbid level considering co-mordities, [id number] Disclaimer: This note was created using [employer] voice recognition software. It was reviewed for major content. However, there may be multiple small discrepancies and errors due to the voice recognition aspects of the software. Stevenson Ballard DPT Dictated by: STEVENSON BALLARD DPT Dictated: 07/31/18 Time: 1028 <Electronically signed by STEVENSON BALLARD DPT> Date: 07/31/18 Time: 1043 Transcribed Date: 07/31/18 Transcribed Time: 1028 By: ALEXA This is privileged, confidential information, intended only for the provider named. Any use or distribution by any person other than this provider is strictly prohibited. If you receive this report in error, please notify us immediately at [phone] and return the original report to us at the address above. Thank you.
--- NOTE | 2018-09-19 15:49 | ZIOP_ITS ---
DATE OF DICTATION: September 19, 2018 O MONITOR REPORT MONITOR IN PLACE: 13 days, 21 hours, August 02 - 2017 Baseline rhythm sinus. Rare single PAC. Four bursts of SVT, longest 8-beat duration, fastest 235 bpm. Rare single PVC. Rare couplet. No VT. No bradycardia or block. No symptoms. Two triggered events, both during sinus rhythm. Average heart rate sinus 64 bpm, range 40-118 bpm. MH/dml D/
== END 2018-08-02 12:32 | disposition skilled nursing facility (03) | DRG 65 ==
LOC: ER 19:45 → MS 23:50
PROVIDERS: Nurse Practitioner Family; Admitting Provider General Practice; Emergency Provider Emergency Medicine; PCP Nurse Practitioner; Visit Provider Internal Medicine
DX: I63.9 Cerebral infarction, unspecified (principal); G81.94 Hemiplegia, unspecified affecting left nondominant side; I69.354 Hemiplegia and hemiparesis following cerebral infarction affecting left non-dominant side; R56.1 Post traumatic seizures; R53.1 Weakness; R00.1 Bradycardia, unspecified; T42.0X5A Adverse effect of hydantoin derivatives, initial encounter; R07.9 Chest pain, unspecified; R20.0 Anesthesia of skin; Z87.820 Personal history of traumatic brain injury; F43.23 Adjustment disorder with mixed anxiety and depressed mood; H53.9 Unspecified visual disturbance
CPT/HCPCS: 36415; 70496; 70498; 80053; 93005; 93225; 94640; 97110; 97163; 97530; 99222; 99223; 99232; 99239; 99255; 99285; 70450; 70551; 71046; 80185; 83735; 84484; 85025; 93010; J3490

== ENCOUNTER → 2018-08-01 08:35 | Outpatient (BNVA) | payer MEDICARE, SELFPAY | PROVIDERS: PCP Nurse Practitioner; Visit Provider Psychiatry & Neurology Neurology | DX: R69 Illness, unspecified (principal) ==

== ENCOUNTER 2018-08-11 17:37 | Inpatient (IN) | payer MEDICARE, MEDICAID, SELFPAY ==
[2018-08-11 17:33] VITALS: BP 143/75; PULSE 67; RESP 14; TEMP 37.1; O2SAT 95
[2018-08-11 17:44] VITALS: RESP 18
[2018-08-11] MEDS: Ketorolac 15 MG/ML VIAL IVP (18:00)
[2018-08-11 18:02] LABS: Abs Immature Grans 0.02 k/cumm (0.0-0.09); Absolute Basophil Count 0.04 k/cumm (0.0-0.2); Absolute Eosinophil Count 0.48 k/cumm (0.0-0.7); Absolute Lymphocyte Count 1.82 k/cumm (1.2-3.4); Absolute Monocyte Count 0.79 k/cumm (0.11-0.7); Absolute Neutrophil Count 2.74 k/cumm (1.2-6.7); Basophils % 0.7; Eosinophils % 8.1; HCT 36.9 % (40.0-50.0); HGB 12.4 g/dL (13.5-17.5); Immature Grans % 0.3; Lymphocytes % 30.9; Mean Corp. HGB Concentration 33.6 g/dL (32.0-36.0); Mean Corpuscular Hemoglobin 30.4 pg (27.0-33.0); Mean Corpuscular Volume 90.4 fL (80-95); Mean Platelet Volume 10.1 fL (8.0-11.0); Monocytes % 13.4; Neutrophils % 46.6; Platelet Count 142 x1000/uL (130-400); RBC 4.08 m/cumm (4.50-6.00); RBC Distribution Width 13.4 % (11.8-14.1); White Blood Cell Count 5.89 k/cumm (4.4-10.8)
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
--- NOTE | 2018-08-11 18:15 | DI.RAD_ITS ---
SYMPTOM/DIAGNOSIS: LT SIDED CHEST PAIN AP AND LATERAL CHEST: Comparison is made with 07/29/18. The heart size is normal. An electronic device is positioned over the left upper chest. The lungs are suboptimally inflated but appear clear. No infiltrate of effusion is seen. IMPRESSION: Limited exam due to suboptimal pulmonary inflation. No acute abnormality is identified.
[2018-08-11 18:23] LABS: ALT 36 U/L (12-78); AST 27 U/L (15-37); Albumin 3.4 g/dL (3.4-5.0); Alkaline Phosphatase 150 U/L (46-116); Anion Gap 7.6 mmol/L (3-11); BUN 13 mg/dL (7-18); Bilirubin, Total 0.3 mg/dL (0.2-1.0); CO2 29.4 mmol/L (21.0-32.0); CREATININE 0.96 mg/dL (0.70-1.30); Calcium 8.9 mg/dL (8.5-10.1); Chloride 105 mmol/L (98-107); Glucose 90 mg/dL (70-100); Magnesium 1.9 mg/dL (1.8-2.4); Potassium 4.2 mmol/L (3.5-5.1); Sodium 142 mmol/L (136-145); Total Protein 6.3 g/dL (6.4-8.2)
[2018-08-11 18:27] LABS: Troponin I < 0.02 ng/mL (0.00-0.06)
--- NOTE | 2018-08-11 19:00 | DI.VRAD_ITS ---
EXAM: XR Chest, 2 Views EXAM DATE/TIME: 08/11/2018 5:41 PM CLINICAL HISTORY: 63 years old, male; Signs and symptoms; Cough; Patient HX: Left sided chest pain. TECHNIQUE: XR of the chest, 2 views. COMPARISON: CR XR CHEST 2V PA LATERAL 07/29/2018 7:[address] scan of the 01/29/2018. FINDINGS: Lungs: An electronic device partially obscured the left lung apex. There are mild opacities adjacent to the aortic knob and left heart border which could represent atelectasis or infection. No dense focal consolidation is seen. There is a 4.4 cm right paraspinal density. This may be secondary to superimposition of structures as no abnormality was identified in this region on CT scan dated 01/29/2018. The lateral radiograph is limited secondary to low lung volumes. Several nodular densities are identified which may represent vessels on end or pulmonary nodules. These appear more numerous than on prior examination however low lung volumes may be contributing. Pleural space: Unremarkable. No pleural effusion. No pneumothorax. Heart/Mediastinum: The mediastinum is slightly wider than on prior examination.. No cardiomegaly. Bones/joints: Skeletal degenerative changes. IMPRESSION: 1. Mild opacities adjacent to the aortic knob and left heart border which could represent atelectasis or infection. 2. Mediastinum is slightly wider than on prior examination. Differences in technique may be contributing however correlation is recommended. If mediastinal or vascular abnormality is a concern, CT scan could be considered. 3. The lateral radiograph is limited secondary to low lung volumes. Several nodular densities are identified which may represent vessels on end or pulmonary nodules. These appear more numerous than on prior examination however low lung volumes may be contributing. A repeat lateral radiograph could be considered. Alternatively, this can also be further assessed with CT. 4. Right paraspinal density as described. Other findings as above. Dictated and Authenticated by: Krissy Rogers MD. Ordering:ALEX CHU MD
[2018-08-11] MEDS: LEVOFLOXACIN 500 MG, LEVOFLOXACIN 250 MG 750 MG PO (19:40)
--- NOTE | 2018-08-11 19:45 | DI.CT_ITS ---
SYMPTOM/DIAGNOSIS: WIDENED MEDIASTINUM ON CT, ? VASCULAR ABNORMALITY PE CHEST CT: CT angiography was performed with multi slice acquisition and multi planar and 3D reconstruction. Comparison is made with 01/29/18. There is an embolus in a peripheral branch vessel to the anterior right lower lobe. No additional emboli are seen. There is enlargement of the main pulmonary artery and left and right main pulmonary arteries consistent with pulmonary hypertension. The aorta is normal in diameter. There is no significant aortic calcification or evidence of dissection. There is left ventricular and left atrial enlargement. The findings appear similar to the previous exam. No pneumothorax, pleural or pericardial effusion is seen. There are mild ground glass opacities in the right upper lobe seen centrally as well as posteriorly. The findings could be infectious or inflammatory. The liver, gallbladder, spleen, pancreas, adrenals and visualized portions of the kidneys are unremarkable. There is a mild deformity of the right fourth rib, likely congenital. Degenerative changes are seen in the spine. There is mixing of contrast in the superior vena cava. A clot cannot be excluded. There is also mixing of contrast at the junction of the right internal jugular. The patient was injected via the right arm. There are some collaterals visualized around the right shoulder. There is a stable tiny nodule in the right middle lobe peripherally. IMPRESSION: Pulmonary embolism is demonstrated in a branch vessel to the anterior right lower lobe. Mild ground glass opacities in the right upper lobe could be secondary to infectious or inflammatory causes. Contrast mixing in the superior vena cava. There are some collaterals. Superior vena cava thrombus cannot be excluded.
[2018-08-11] MEDS: Omnipaque 350 MG/ML 100 ML BTL IJ (19:58)
--- NOTE | 2018-08-11 20:50 | DI.VRAD_ITS ---
EXAM: CT Angiography Chest With Intravenous Contrast EXAM DATE/TIME: 08/11/2018 7:08 PM CLINICAL HISTORY: 63 years old, male; Pain; Chest pain; Type not specified; Patient HX: Widened mediastinum on CT, ? vascular abnormality. TECHNIQUE: Axial computed tomographic angiography images of the chest with intravenous contrast using CT angiography protocol. All CT scans at this facility use at least one of these dose optimization techniques: automated exposure control; mA and/or kV adjustment per patient size (includes targeted exams where dose is matched to clinical indication); or iterative reconstruction. Coronal and sagittal reformatted images were created and reviewed. MIP reconstructed images were created and reviewed. CONTRAST: 100 ml of OMNI-PAQUE 350 administered intravenously. COMPARISON: CT CHEST FOR PULMONARY EMBOLUS 01/29/2018 6:21 PM FINDINGS: Pulmonary arteries: The aorta and main pulmonary artery are similar in caliber which can be seen with pulmonary arterial hypertension. There is a new right sided pulmonary embolism on series 7 image 153. There is reflux of contrast into the IVC which can be seen with right heart failure. Aorta: Evaluation of the proximal ascending aorta is limited secondary to motion. No aneurysm is identified. Lungs: There are scattered areas of atelectasis or scarring. Series 7 image 86 demonstrates a focus of groundglass nodular densities in the medial aspect of the right lung. This is concerning for an infectious or inflammatory process. Elsewhere, there is some prominence of the bronchial structures which can be seen with bronchitis in the appropriate clinical setting. Series 7 image 130 demonstrates a nonspecific 6 mm right pulmonary nodule, unchanged. Pleural space: Normal. No pneumothorax. No pleural effusion. Heart: No pericardial effusion. Mediastinum: Gas in the esophagus which can be seen with reflux. Bones/joints: Skeletal degenerative changes. Soft tissues: Unremarkable. Lymph nodes: There are prominent right hilar lymph nodes measuring 1.1 cm on short axis, unchanged. There is a prominent left hilar lymph node on series 7 image 131 measuring 1 cm in short axis, unchanged. IMPRESSION: 1. This study is positive for a new right sided pulmonary embolism on series 7 image 153. The aorta and main pulmonary artery are similar in caliber which can be seen with pulmonary arterial hypertension. There is also some reflux of contrast into the IVC which can be seen with right heart failure. Because of these findings, an element of right heart strain is not excluded. 2. Focus of groundglass nodular densities in the medial aspect of the right lung which could represent an infectious or inflammatory process. Elsewhere, there is some prominence of the bronchial structures which can be seen with bronchitis in the appropriate clinical setting. 3. Prominent and mildly enlarged hilar lymph nodes, similar to prior examination. 4. Unchanged right pulmonary nodule. For low-risk patients consider a follow-up chest CT at 12-18 months. For high-risk patients (smoking history or other known risk factors) recommend follow-up chest CT at 12-18 months. If unchanged, no further follow-up. Other findings as above. THIS REPORT CONTAINS FINDINGS THAT MAY BE CRITICAL TO PATIENT CARE. The findings were verbally communicated via telephone conference with Dr. Auguste at 8:45 PM EDT on 08/11/2018. The findings were acknowledged and understood. Dictated and Authenticated by: Krissy Rogers MD. Ordering:ALEX CHU MD
[2018-08-11 21:33] VITALS: BP 140/71; PULSE 59; RESP 19; TEMP 37.4; O2SAT 97
[2018-08-11 21:38] LABS: NT-proBNP 308 pg/mL
[2018-08-11 22:29] VITALS: BP 144/81; PULSE 56; RESP 16; TEMP 36.6; O2SAT 91
[2018-08-11 22:30] VITALS: PULSE 56
[2018-08-11 22:45] LABS: INR 1.1 (1.0-3.5)
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
[2018-08-11] MEDS: fentaNYL 50 MCG PATCH TD (23:24)
[2018-08-11 23:25] LABS: PTT Activated > 176.1 sec (21.0-31.4)
[2018-08-12] VITALS (9 sets, daily range): BP systolic 105–162; BP diastolic 55–91; PULSE 77–103; RESP 5–22; TEMP 36.5–37.1; O2SAT 92–94
[2018-08-12] MEDS: Cyanocobalamin 1000 MCG/ML VIAL IM (00:33)
[2018-08-12] MEDS: Doxycycline Hyclate 100 MG CAP PO ×2 (00:33→10:30)
[2018-08-12] MEDS: Benzonatate 100 MG CAP 200 MG PO (00:53)
[2018-08-12] MEDS: Albuterol/Ipratropium 3 ML UPD VIAL UPD ×3 (00:53→13:28)
[2018-08-12] MEDS: Normal Saline Flush 10 ML SYR ×2 (00:55→01:50)
[2018-08-12] MEDS: methylPREDNISolone SUCC 125 MG VIAL 60 MG IVP ×3 (01:49→17:53)
[2018-08-12 03:28] LABS: Troponin I < 0.02 ng/mL (0.00-0.06)
[2018-08-12 03:46] LABS: PTT Activated 123.1 sec (21.0-31.4)
--- NOTE | 2018-08-12 07:00 | DI.US_ITS ---
SYMPTOM/DIAGNOSIS: PE BILATERAL LOWER EXTREMITY ULTRASOUND: A small Alaniz's cyst is seen in the right popliteal fossa measuring 3.6 by 3 by 1.1 cm. The femoral and popliteal veins as well as calf veins are freely compressible bilaterally. No thrombus is visible. The doppler venous wave form augments normally. The saphenous veins also appear free of thrombus. IMPRESSION: Small right sided Alaniz's cyst. No evidence of DVT.
--- NOTE | 2018-08-12 07:46 | MERGE_ITS ---
*[facility]* *[facility]* [address] [place] [address] Date of study: 08/12/2018 Transthoracic Echocardiography M-mode, complete 2D, complete spectral Doppler, and color Doppler *STUDY CONCLUSIONS* Summary: 1. Left ventricle: The cavity size was normal. Wall thickness was normal. Systolic function was at the lower limits of normal. The estimated ejection fraction was 50-55%. Mild hypokinesis of the inferolateral and inferior myocardium. 2. Aortic valve: There was moderate regurgitation. 3. Aortic root: The aortic root was at upper normal limits. 4. 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 There was mild to moderate regurgitation. 5. Left atrium: The atrium was mildly dilated. 6. Right ventricle: The cavity size was normal. Wall thickness was normal. Systolic function was normal. 7. Tricuspid valve: There was mild-moderate regurgitation. 8. Pulmonary arteries: Pulmonary systolic pressure was mildly increased. PA peak pressure: 43mm Hg (S). *PATIENT PRESENTATION* Height: 162.6cm ((64in) ) S/D Pressure: 135 / 88 Weight: 61.2kg ((134.7lb) ) BSA: 1.67m^2 Test start time: 07:49 AM. Test stop time: 08:49 AM. PERFORMING Unknown PERFORMING [facility] ORDERING Amando Gooden REFERRING Amando Gooden FAST FOOD TEAM MEMBER RT Sammy (R)(CT), MINISTERIO *PROCEDURE DATA* Procedure information: The patient was identified by two identifiers. This study was interpreted by [facility]. Pertinent images and digital data are archived for permanent storage and are available for subsequent review. No prior study was available for comparison. Study status: Routine. Transthoracic echocardiography. M-mode, complete 2D, complete spectral Doppler, and color Doppler. A Transthoracic Echocardiogram was performed. Scanning was performed from the parasternal, apical, subcostal, and suprasternal notch acoustic windows. Images were obtained using an [id number] cardiac ultrasound machine. Image quality was fair. Study completion: The patient tolerated the procedure well. History: PMH: Pulmonary Embolus *CARDIAC ANATOMY* Left ventricle: The cavity size was normal. Wall thickness was normal. There was a false tendon within the ventricle. Systolic function was at the lower limits of normal. The estimated ejection fraction was 50-55%. Regional wall motion abnormalities: Mild hypokinesis of the inferolateral and inferior myocardium. Aortic valve: Trileaflet; mildly thickened leaflets. Mobility was not restricted. Doppler: Transvalvular velocity was within the normal range. There was no stenosis. There was moderate regurgitation. VTI ratio of LVOT to aortic valve: 0.67. Valve area (VTI): 2.3cm^2. Indexed valve area (VTI): 1.4cm^2/m^2. Peak velocity ratio of LVOT to aortic valve: 0.67. Valve area (Vmax): 2.3cm^2. Indexed valve area (Vmax): 1.4cm^2/m^2. Mean velocity ratio of LVOT to aortic valve: 0.71. Valve area (Vmean): 2.4cm^2. Indexed valve area (Vmean): 1.5cm^2/m^2. Mean gradient (S): 7.8mm Hg. Peak gradient (S): 14.8mm Hg. Aorta: Aortic root: The aortic root was at upper normal limits. Ascending aorta: The ascending aorta was normal in size. 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 Mobility was not restricted. Doppler: Transvalvular velocity was within the normal range. There was no evidence for stenosis. There was mild to moderate regurgitation. Valve area by pressure half-time: 3.8cm^2. Indexed valve area by pressure half-time: 2.3cm^2/m^2. Peak gradient (D): 2.6mm Hg. Left atrium: The atrium was mildly dilated. Right ventricle: The cavity size was normal. Wall thickness was normal. Systolic function was normal. Pulmonic valve: Doppler: Transvalvular velocity was within the normal range. There was no evidence for stenosis. There was mild regurgitation. Peak gradient (S): 3.7mm Hg. Tricuspid valve: Structurally normal valve. Doppler: Transvalvular velocity was within the normal range. There was no evidence for stenosis. There was mild-moderate regurgitation. Pulmonary artery: Pulmonary systolic pressure was mildly increased. Right atrium: The atrium was normal in size. Pericardium: There was no pericardial effusion. Systemic veins: Inferior vena cava: Well visualized. The vessel was patent and normal in size. The respirophasic diameter changes were in the normal range (greater than or equal to 50%), consistent with normal central venous pressure. Baseline ECG: Normal sinus rhythm. Measurements Left ventricle Value Reference LV ID, ED, PLAX 5.9 cm 3.5 - 6.0 LV ID, ES, PLAX (H) 4.5 cm 2.1 - 4.0 LV PW thickness, ED, PLAX 0.8 cm LV end-diastolic volume, 1-p A2C 98 ml LV ejection fraction, 1-p A2C 46 % LV end-diastolic volume, 1-p A4C 95 ml LV ejection fraction, 1-p A4C 56 % LV e', lateral 0.088 m/sec LV E/e', lateral 9 LV e', medial 0.093 m/sec LV E/e', medial 9 LV e', average 0.09 m/sec LV E/e', average 9 Ventricular septum Value Reference IVS thickness, ED, PLAX 0.7 cm LVOT Value Reference LVOT ID, A-P 2.1 cm LVOT area 3.4 cm^2 LVOT peak velocity, S 1.29 m/sec LVOT mean velocity, S 0.94 m/sec LVOT VTI, S 27.7 cm LVOT peak gradient, S 6.7 mm Hg LVOT mean gradient, S 3.9 mm Hg Stroke volume (SV), LVOT DP 94 ml Stroke index (SV/bsa), LVOT DP 56 ml/m^2 Aortic valve Value Reference Aortic valve peak velocity, S 1.9 m/sec Aortic valve mean velocity, S 1.32 m/sec Aortic valve VTI, S 41.0 cm Aortic mean gradient, S 7.8 mm Hg Aortic peak gradient, S 14.8 mm Hg VTI ratio, LVOT/AV 0.67 Aortic valve area, VTI 2.3 cm^2 Velocity ratio, peak, LVOT/AV 0.67 Aortic valve area, peak velocity 2.3 cm^2 Velocity ratio, mean, LVOT/AV 0.71 Aortic valve area, mean velocity 2.4 cm^2 Aortic valve area/bsa, mean velocity 1.5 cm^2/m^2 Aortic regurg deceleration 304 cm/s^2 Aortic regurg pressure half-time 364 ms Aorta Value Reference Aortic root ID, ED 3.6 cm Ascending aorta ID, A-P, S 3.0 cm RVOT Value Reference RVOT VTI, S 20.7 cm Left atrium Value Reference LA ID, A-P, ES 3.2 cm LA ID/bsa, A-P 1.9 cm/m^2 <=2.2 LA area, ES, A4C 22.3 cm^2 8.8 - 23.4 LA area, ES, A2C 19 cm^2 LA volume/bsa, ES, 1-p A4C 46 ml/m^2 LA volume, ES, 2-p 62 ml LA volume/bsa, ES, 2-p 37 ml/m^2 LA/aortic root ratio 0.88 Mitral valve Value Reference Mitral E-wave peak velocity 0.81 m/sec Mitral A-wave peak velocity 0.94 m/sec Mitral deceleration time 199 ms 150 - 230 Mitral pressure half-time 58 ms Mitral peak gradient, D 2.6 mm Hg Mitral E/A ratio, peak 0.86 Mitral valve area, PHT, DP 3.8 cm^2 Pulmonary veins Value Reference Pulmonary vein peak velocity, S 0.76 m/sec Pulmonary vein peak velocity, D 0.45 m/sec Pulmonary vein velocity ratio, peak, 1.68 S/D Pulmonary vein A-wave reversal peak 0.38 m/sec velocity Pulmonary arteries Value Reference PA pressure, S, DP (H) 43 mm Hg <=30 Tricuspid valve Value Reference Tricuspid regurg peak velocity 3 m/sec Tricuspid peak RV-RA gradient 37.1 mm Hg Right atrium Value Reference RA area, ES, A4C 12 cm^2 8.3 - 19.5 Systemic veins Value Reference Estimated CVP 10 mm Hg Right ventricle Value Reference RV pressure, S, DP (H) 47 mm Hg <=30 Pulmonic valve Value Reference Pulmonic peak gradient, S 3.7 mm Hg Legend: (L) and (H) yara values outside specified reference range. I have personally reviewed the images and have reviewed and edited the reported findings. Electronically signed by Norman Alcaraz 08/12/2018 19:06
--- NOTE | 2018-08-12 09:28 | PDOC.CMIN ---
- If Service Date Differs Date of service: 08/12/18 Time of Service: 09:28 Care Management Initial Assess REASON FOR HOSPITALIZATION:: Pulmonary embolism. PAST MEDICAL HISTORY/PAST SURGICAL HISTORY:: Vitamin B12 deficiency, neurological disorder, suicidal ideations, hemiparesis, epilepsy, cervical stenosis of spinal canal, atherosclerosis of coronary artery, COPD, adjustment disorder with mixed anxiety and depressed mood, OR, osteoarthritis, TBI, CVA, asthma, anxiety, adjustment disorder. Surgical hx: acromioplasty, arthroplasty of knee, colonoscopy, coronary stent, EGD-MAC, hernia repair (inguinal and umbilical), laminectomies C3-6. PREVIOUS FUNCTIONAL STATUS/SOCIAL/FAMILY SUPPORTS:: Miguel discharged from [facility] on 07/29 following an admission for chest pain and possible stroke. He has been re-admitted for a PE. At last discharge, Miguel transfered to the [facility] for a short term rehab stay. Miguel requires assistance with many of his ADLs and utilizes a w/c for ambulation. CURRENT FUNCTIONAL STATUS:: Miguel is sitting up in bed when visits this morning. He is engaged in conversation, makes good eye contact, and is talkative. Miguel reports that he is feeling well other than his harsh cough. He reports that he loves the [employer], loves the people and the food. The [facility] has started working on his LTC Medicaid application and Miguel reports that he would like to stay there permanently. He has reportedly gained approx. 5 lbs since his previous admission here. Miguel is currently on a heparin drip, is receiving IV fluids and antibiotics, and is being monitored on telemetry. ADVANCE DIRECTIVES:: On file at [facility]. Has patient been provided with information about the portal?: Yes Did the patient sign up for the portal?: No CODE STATUS:: Full Code INSURANCE COVERAGE / FINANCIAL ISSUES:: Medicare. CURRENT HOME/COMMUNITY SERVICES/EQUIPMENT:: [facility] [place] [facility], [employer]. PRIMARY CARE PHYSICIAN:: Aissatou Briggs. POTENTIAL DISCHARGE NEEDS:: Follow up appointment with PCP. PATIENT/FAMILY EDUCATION NEEDS:: Discharge education, any limitations, and follow up plan of care. Ask [employer] Three discussion. ANTICIPATED BARRIERS TO DISCHARGE:: No barriers to discharge anticipated. TRANSPORTATION:: Miguel will transport to the [facility] via [facility] w/c van or the [facility] w/c, TBD. PLAN:: Miguel will discharge back to the [facility] when medically ready per MD. Anticipate patient will discharge with no services and follow up with PCP. CM will continue to offer support to patient and care team regarding discharge planning and disposition.
--- NOTE | 2018-08-12 09:31 | INITIAL_ITS ---
- If Service Date Differs Date of service: 08/12/18 Time of Service: 09:28 Care Management Initial Assess REASON FOR HOSPITALIZATION:: Pulmonary embolism. PAST MEDICAL HISTORY/PAST SURGICAL HISTORY:: Vitamin B12 deficiency, neurological disorder, suicidal ideations, hemiparesis, epilepsy, cervical stenosis of spinal canal, atherosclerosis of coronary artery, COPD, adjustment disorder with mixed anxiety and depressed mood, [place], osteoarthritis, TBI, CVA, asthma, anxiety, adjustment disorder. Surgical hx: acromioplasty, arthroplasty of knee, colonoscopy, coronary stent, EGD-MAC, hernia repair (inguinal and umbilical), laminectomies C3-6. PREVIOUS FUNCTIONAL STATUS/SOCIAL/FAMILY SUPPORTS:: Miguel discharged from [facility] on 07/29 following an admission for chest pain and possible stroke. He has been re-admitted for a PE. At last discharge, Miguel transfered to the [facility] for a short term rehab stay. Miguel requires assistance with many of his ADLs and utilizes a w/c for ambulation. CURRENT FUNCTIONAL STATUS:: Miguel is sitting up in bed when visits this morning. He is engaged in conversation, makes good eye contact, and is talkative. Miguel reports that he is feeling well other than his harsh cough. He reports that he loves the [employer], loves the people and the food. The [facility] has started working on his LTC Medicaid application and Miguel reports that he would like to stay there permanently. He has reportedly gained approx. 5 lbs since his previous admission here. Miguel is currently on a heparin drip, is receiving IV fluids and antibiotics, and is being monitored on telemetry. ADVANCE DIRECTIVES:: On file at [facility]. Has patient been provided with information about the portal?: Yes Did the patient sign up for the portal?: No CODE STATUS:: Full Code INSURANCE COVERAGE / FINANCIAL ISSUES:: Medicare. CURRENT HOME/COMMUNITY SERVICES/EQUIPMENT:: [facility], [place] [facility], [facility]. PRIMARY CARE PHYSICIAN:: Aissatou Briggs. POTENTIAL DISCHARGE NEEDS:: Follow up appointment with PCP. PATIENT/FAMILY EDUCATION NEEDS:: Discharge education, any limitations, and follow up plan of care. Ask Me Three discussion. ANTICIPATED BARRIERS TO DISCHARGE:: No barriers to discharge anticipated. TRANSPORTATION:: Miguel will transport to the [facility] via [facility] w/c van or the [facility] w/c, TBD. PLAN:: Miguel will discharge back to the [facility] when medically ready per MD. Anticipate patient will discharge with no services and follow up with PCP. CM will continue to offer support to patient and care team regarding discharge planning and disposition.
[2018-08-12] MEDS: Patch Removal 1 EACH TD (09:45)
[2018-08-12] MEDS: Pantoprazole 40 MG TABCR PO (10:22)
[2018-08-12] MEDS: Citalopram 20 MG TAB 40 MG PO (10:23)
[2018-08-12] MEDS: Gabapentin 600 MG TAB PO ×3 (10:23→20:48)
[2018-08-12] MEDS: Clopidogrel 75 MG TAB PO (10:24)
[2018-08-12] MEDS: Benzonatate 200 MG CAP PO ×3 (10:24→20:48)
[2018-08-12] MEDS: Sucralfate 1 GM TAB PO ×4 (10:25→20:48)
[2018-08-12] MEDS: Magnesium Oxide 400 MG TAB PO (10:25)
[2018-08-12] MEDS: lamoTRIgine 100 MG TAB PO ×2 (10:25→20:48)
[2018-08-12] MEDS: Normal Saline Flush 10 ML SYR 30 ML ×2 (10:26→17:54)
[2018-08-12] MEDS: Isosorbide Dinitrate 10 MG TAB 20 MG PO ×2 (10:30→20:56)
[2018-08-12] MEDS: Triamcinolone 0.1% CR 15 GM TUBE TP ×2 (10:30→20:50)
[2018-08-12 11:37] LABS: PTT Activated 47.5 sec (21.0-31.4)
--- NOTE | 2018-08-12 12:14 | PHARADMIT ---
Addendum entered by Lois Pena 08/14/18 14:48: Pharmacy Note Subjective telemetry to continue during this stay Objective VS good, weight up 5kg overnight, lytes okay, MRSA nare negative, WBC today 7.7, afebrile Assessment Heparin infusion stopped, transitioned to Eliquis for PE treatment Rocephin and Doxy dc'd 08/12/18 Levaquin started for HCAP coverage because pt had multiple hospitalizations, was at the [facility] and WBC was elevated yesterday @ 14.48, no fevers MD thinks this PE may have been precipitated by lack of DVT prophylaxis during one of his admissions IVF's dc'd Plan MD mentions possible chest xray, Possible discharge soon Original Note: Admission Pharmacy Clinical Review PE Code Status Full Code Current Weight Wgt- 60.1 kg Renally Cleared and Narrow Therapeutic Index Meds CrCl~ 65 mL/min Meds-OK QTc Value / Action Taken NA BP Control, Fever BP-107/55 Tmax- 36.7C Electrolytes reviewed Na- 142 K+4.2 Mag-1.9 DVT Prophylaxis Heparin-Drip Opiate Usage / Scheduled Bowel Regimen Ordered Yes Yes Plt/SCr for Heparin / Enoxaparin [id number]_142 SCr-0.96 INR for Warfarin inr-1.1 H/H stable, WBC/Bands H&H- 12.4/36.9 WBC-5.89 Antibiotic appropriateness Rocephin, Doxycycline Cultures and Sensitivities MSRA-nose pending Surgical ABX d/c within 24 hr Isordil, NTG, DM control / Insulin Dosing BG- 90 Heart Failure (Check EF%) (FEDERICO's, B-Block, Diuretics) none IV to PO Switch No Home Meds Reviewed Yes Home Meds Not Ordered Levaquin, Dilantin, Comments Hoping for transfer
[2018-08-12] MEDS: Acetaminophen 325 MG TAB PO (16:06)
[2018-08-12] MEDS: Normal Saline 1,000 ML 75 ML IV (18:01)
--- NOTE | 2018-08-12 19:18 | W.PM.PROGNOT ---
Assessment and Plan (1) Pulmonary embolism: Current visit: Yes Status: Chronic No evidence of R heart strain on echo - does have mild pulmonary hypertension. No evidence of DVT. Likely ok to switch the patient to a DOAC tomorrow, but first ensure that he is hemoccult negative - he is also on plavix. (2) Acute pneumonitis: Current visit: Yes Status: Acute Patient denies sputum production to me. We have recorded no fevers. I d/c'ed the antibiotics. (3) Chest pain: Current visit: No Status: Acute Pleuritic, unclear if it's truly related to the PE - d/c'ed toradol as the patient is already on plavix and heparin gtt and would be at a high risk of bleeding. Continue tylenol, which the patient feels is acceptable. (4) Occasional tremors: Current visit: Yes Status: Acute My impression is that these are behavioral - however, I d/c'ed scheduled duonebs to see if this is what was causing them. (5) TBI (traumatic brain injury): Current visit: No Status: Chronic Patient is at his neurological baseline. PT/OT consulted while in the hospital. Subjective Interval history since last seen: The patient complained of L-sided headache which he occasionally has and tremors. Interestingly, nurses report that tremors only happen when the patient knows there is someone is the room - otherwise, he is able to lay perfectly still. He states that tylenol helps both headaches and tremors. He denies any dizziness, complains of chest pain with inspiration, complains of slight shortness of breath, complains of mild nausea. Exam Narrative Exam Narrative: General: Malnourished appearing middle aged male, shaking his upper extremities HEENT: EOMI, MMM Heart: RRR, no m/r/g Lungs: Diminished at B bases GI: abdomen soft, nontender, nondistended Extremities: B foot drop; warm, no e/c/c Objective Objective Clinical Data: Abnormal lab results 08/11/18 08/11/18 08/12/18 Range/Units 17:40 22:00 03:00 PT 11.0 H (9.3-10.8) sec APTT > 176.1 H* 123.1 H* D (21.0-31.4) sec NT-Pro-B Natriuret Pep 308 H ( - 299) pg/mL 08/12/18 Range/Units 11:01 PT (9.3-10.8) sec APTT 47.5 H D (21.0-31.4) sec NT-Pro-B Natriuret Pep ( - 299) pg/mL Vital Signs Temperature 37.1 C 08/12/18 16:09 Temperature Source Tympanic 08/12/18 16:09 Pulse 97 H 08/12/18 16:09 Pulse Rhythm Irregular 08/12/18 07:35 Respiratory Rate 20 08/12/18 16:09 Respiratory Effort Short of Breath 08/12/18 07:35 Respiratory Depth Normal 08/12/18 07:35 Respiratory Pattern Normal 08/12/18 07:35 Blood Pressure 105/82 08/12/18 16:09 Pulse Oximetry 93 L 08/12/18 16:09 Oxygen Delivery Method Room Air 08/12/18 16:09 Oxygen Flow Rate 0 08/12/18 16:09 Pain Level 4 08/12/18 16:09 Comment 08/12/18 16:09 Intake & Output 08/11/18 08/12/18 08/12/18 23:59 11:59 23:59 Intake Total 14.667 / 14.667 409.4 / 409.4 368.55 / 368.55 Output Total 900 / 900 Balance 14.667 / 14.667 -490.6 / -490.6 368.55 / 368.55 Weight 61.3 kg 60.1 kg Intake: IV 14.667 / 14.667 109.4 / 109.4 128.55 / 128.55 Oral 300 / 300 240 / 240 Output: Urine 900 / 900 Other: Urine Color Yellow Urine Appearance Clear Urine Odor Normal Stool Size Large Stool Characteristics Soft Formed Brown Voiding Methods Urinal Laboratory Results WBC 5.89 k/cumm (4.4-10.8) 08/11/18 17:40 RBC 4.08 m/cumm (4.50-6.00) L 08/11/18 17:40 Hgb 12.4 g/dL (13.5-17.5) L 08/11/18 17:40 Hct 36.9 % (40.0-50.0) L 08/11/18 17:40 MCV 90.4 fL (80-95) 08/11/18 17:40 MCH 30.4 pg (27.0-33.0) 08/11/18 17:40 MCHC 33.6 g/dL (32.0-36.0) 08/11/18 17:40 RDW 13.4 % (11.8-14.1) 08/11/18 17:40 Plt Count 142 x1000/uL (130-400) 08/11/18 17:40 MPV 10.1 fL (8.0-11.0) 08/11/18 17:40 Immature Gran % 0.3 08/11/18 17:40 Neutrophils % 46.6 08/11/18 17:40 Lymphocytes % 30.9 08/11/18 17:40 Monocytes % 13.4 08/11/18 17:40 Eosinophils % 8.1 08/11/18 17:40 Basophils % 0.7 08/11/18 17:40 Absolute Neutrophils 2.74 k/cumm (1.2-6.7) 08/11/18 17:40 Absolute Lymphocytes 1.82 k/cumm (1.2-3.4) 08/11/18 17:40 Absolute Monocytes 0.79 k/cumm (0.11-0.7) H 08/11/18 17:40 Absolute Eosinophils 0.48 k/cumm (0.0-0.7) 08/11/18 17:40 Absolute Basophils 0.04 k/cumm (0.0-0.2) 08/11/18 17:40 PT 11.0 sec (9.3-10.8) H 08/11/18 22:00 INR 1.1 (1.0-3.5) 08/11/18 22:00 APTT 47.5 sec (21.0-31.4) H D 08/12/18 11:01 Sodium 142 mmol/L (136-145) 08/11/18 17:40 Potassium 4.2 mmol/L (3.5-5.1) 08/11/18 17:40 Chloride 105 mmol/L (98-107) 08/11/18 17:40 Carbon Dioxide 29.4 mmol/L (21.0-32.0) 08/11/18 17:40 Anion Gap 7.6 mmol/L (3-11) 08/11/18 17:40 BUN 13 mg/dL (7-18) 08/11/18 17:40 Creatinine 0.96 mg/dL (0.70-1.30) 08/11/18 17:40 Estimated GFR/1.73 m2 >= 60.00 (mL/min/1.73m2) 08/11/18 17:40 Glucose 90 mg/dL (70-100) 08/11/18 17:40 Calcium 8.9 mg/dL (8.5-10.1) 08/11/18 17:40 Magnesium 1.9 mg/dL (1.8-2.4) 08/11/18 17:40 Total Bilirubin 0.3 mg/dL (0.2-1.0) 08/11/18 17:40 AST 27 U/L (15-37) 08/11/18 17:40 ALT 36 U/L (12-78) 08/11/18 17:40 Alkaline Phosphatase 150 U/L (46-116) H 08/11/18 17:40 Troponin I < 0.02 ng/mL (0.00-0.06) 08/12/18 03:00 NT-Pro-B Natriuret Pep 308 pg/mL (-299) H 08/11/18 17:40 Total Protein 6.3 g/dL (6.4-8.2) L 08/11/18 17:40 Albumin 3.4 g/dL (3.4-5.0) 08/11/18 17:40 Echo: 1. Left ventricle: The cavity size was normal. Wall thickness was normal. Systolic function was at the lower limits of normal. The estimated ejection fraction was 50-55%. Mild hypokinesis of the inferolateral and inferior myocardium. 2. Aortic valve: There was moderate regurgitation. 3. Aortic root: The aortic root was at upper normal limits. 4. 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 There was mild to moderate regurgitation. 5. Left atrium: The atrium was mildly dilated. 6. Right ventricle: The cavity size was normal. Wall thickness was normal. Systolic function was normal. 7. Tricuspid valve: There was mild-moderate regurgitation. 8. Pulmonary arteries: Pulmonary systolic pressure was mildly increased. PA peak pressure: 43mm Hg (S). Venous doppler BLE's: IMPRESSION: Small right sided Alaniz's cyst. No evidence of DVT.
[2018-08-12] MEDS: Atorvastatin 40 MG TAB 80 MG PO (20:48)
[2018-08-12] MEDS: Mometasone 220 MCG 14 DOSE INHALER 1 PUFF IH (20:55)
[2018-08-12] MEDS: traZODone 50 MG TAB 100 MG PO (21:31)
[2018-08-13] VITALS (8 sets, daily range): BP systolic 121–142; BP diastolic 70–86; PULSE 69–83; RESP 15–20; TEMP 36.8–37.2; O2SAT 93–96
[2018-08-13 06:16] LABS: Anion Gap 9.2 mmol/L (3-11); BUN 20 mg/dL (7-18); CO2 25.8 mmol/L (21.0-32.0); CREATININE 1.07 mg/dL (0.70-1.30); Calcium 8.8 mg/dL (8.5-10.1); Chloride 107 mmol/L (98-107); Glucose 150 mg/dL (70-100); Magnesium 1.9 mg/dL (1.8-2.4); Potassium 4.6 mmol/L (3.5-5.1); Sodium 142 mmol/L (136-145)
[2018-08-13 06:19] LABS: PTT Activated 42.8 sec (21.0-31.4)
[2018-08-13 06:26] LABS: Abs Immature Grans 0.04 k/cumm (0.0-0.09); Absolute Eosinophil Count 0.01 k/cumm (0.0-0.7); Absolute Lymphocyte Count 0.74 k/cumm (1.2-3.4); Absolute Monocyte Count 0.93 k/cumm (0.11-0.7); Absolute Neutrophil Count 12.76 k/cumm (1.2-6.7); Eosinophils % 0.1; HCT 36.1 % (40.0-50.0); HGB 11.9 g/dL (13.5-17.5); Immature Grans % 0.3; Lymphocytes % 5.1; Mean Corpuscular Hemoglobin 30.3 pg (27.0-33.0); Mean Corpuscular Volume 91.9 fL (80-95); Monocytes % 6.4; Neutrophils % 88.1; Platelet Count 144 x1000/uL (130-400); RBC 3.93 m/cumm (4.50-6.00); RBC Distribution Width 14.1 % (11.8-14.1); White Blood Cell Count 14.48 k/cumm (4.4-10.8)
[2018-08-13] MEDS: Normal Saline 1,000 ML 75 ML IV ×2 (07:02→20:22)
[2018-08-13] MEDS: Magnesium Oxide 400 MG TAB PO (07:45)
[2018-08-13] MEDS: Citalopram 20 MG TAB 40 MG PO (07:45)
[2018-08-13] MEDS: Clopidogrel 75 MG TAB PO (07:45)
[2018-08-13] MEDS: Sucralfate 1 GM TAB PO ×4 (07:46→20:24)
[2018-08-13] MEDS: lamoTRIgine 100 MG TAB PO ×2 (07:47→20:26)
[2018-08-13] MEDS: Pantoprazole 40 MG TABCR PO (07:47)
[2018-08-13] MEDS: Benzonatate 200 MG CAP PO ×3 (07:47→20:23)
[2018-08-13] MEDS: Gabapentin 600 MG TAB PO ×3 (07:47→20:23)
[2018-08-13] MEDS: Isosorbide Dinitrate 10 MG TAB 20 MG PO ×2 (10:43→20:26)
[2018-08-13] MEDS: Triamcinolone 0.1% CR 15 GM TUBE TP (10:44)
[2018-08-13] MEDS: Normal Saline Flush 10 ML SYR 20 ML (12:14)
[2018-08-13] MEDS: Acetaminophen 325 MG TAB PO (13:36)
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
--- NOTE | 2018-08-13 14:42 | PDOC.CMPRO ---
- If Service Date Differs Date of service: 08/13/18 Time of Service: 14:42 Care Management Progress Note S/O: Miguel had a PT consult, he did ambulate today with PT. Anticipate no change in Miguel's status today. Anticipate he will return to the [facility] in the next few days. A:Miguel is a 63 year old male with multiple morbidities and recent admissions, admitted with PE. P:Miguel will discharge back to the [facility] when medically ready per MD. No change in his status today. CM to coordinate transportation prior to discharge. CM will continue to offer support to patient and care team regarding discharge planning and disposition.
--- NOTE | 2018-08-13 14:49 | CMPROGNOTE_ITS ---
- If Service Date Differs Date of service: 08/13/18 Time of Service: 14:42 Care Management Progress Note S/O: Miguel had a PT consult, he did ambulate today with PT. Anticipate no change in Miguel's status today. Anticipate he will return to the [facility] in the next few days. A:Miguel is a 63 year old male with multiple morbidities and recent admissions, admitted with PE. P:Miguel will discharge back to the [facility] when medically ready per MD. No change in his status today. CM to coordinate transportation prior to discharge. CM will continue to offer support to patient and care team regarding discharge planning and disposition.
--- NOTE | 2018-08-13 17:47 | W.PM.PROGNOT ---
Assessment and Plan (1) Pulmonary embolism: Current visit: Yes Status: Chronic No evidence of Right heart strain on echo - does have mild pulmonary hypertension with mild to moderate TR. LE Ultrasound without evidence for DVTs. Discontinue IV Heparin in favor of therapeutic Apixaban - Continue GI Prophylaxis with both PPI and carafate as per home regimen. Of note, Mr. Pérez had a brief hospitalization here between 07/21 - 07/22, as well as a 5 day hospital stay that ended 08/02/2018. As per review of records it does not appear that he was on chemical DVT prophylaxis at that time. May presume PE to be secondary to a provoked DVT. Also with evidence of infiltrate on CT, but without fever, although with leukocytosis today. Favor initiation of Levaquin as secondary coverage for potential HCAP and monitoring symptoms, vitals, and WBC very closely. (2) Acute pneumonitis: Current visit: Yes Status: Acute Reports continued but improved cough, along with brown sputum production today. No fever but with development of leukocytosis which may well be reactive. However, given recent hospitalization and senior care residence will treat with brief course of antibiotics. Day #1 of Levofloxacin today. (3) TBI (traumatic brain injury): Current visit: No Status: Chronic Patient is at his neurological baseline. Has a history of seizure activity post TBI, maintained chronically on Lamictal. PT/OT consulted while in the hospital. (4) CVA (cerebral vascular accident): Current visit: No Status: Chronic With residual left sided deficits. Continue antiplatelet therapy with Clopidogrel. Also on high potency statin therapy. (5) CAD (coronary artery disease): Current visit: Yes Status: Chronic Continue statin, Clopidogrel, and isordil. Not on BB as per review of home meds. (6) COPD (chronic obstructive pulmonary disease): Current visit: Yes Status: Chronic Noted. (7) DVT prophylaxis: Current visit: Yes Status: Acute Currently on active anticoagulation. 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 Mr. Pérez had acute onset of chest pain associated with a cough. Evaluation in the emergency room included a chest x-ray that suggested widening of the mediastinum, with subsequent CTA of the chest showing a new right-sided pulmonary embolism as well as suggestion of pulmonary arterial hypertension and right heart strain. He was also found to have groundglass nodular densities in the medial aspect of the right lung suggestive of either an infectious or inflammatory process and mildly enlarged hilar lymph nodes as well as evidence of bronchitis. In the emergency room he was treated with oral Levaquin for pneumonia although he was afebrile and had no leukocytosis on his CBC. Initially the ER personnel had anticipated discharging him back to the senior care on antibiotics for a lower respiratory tract infection but with the new findings of a right-sided pulmonary embolus patient was started on intravenous heparin and referred for admission. The patient currently remains on heparin gtt, with ECHO obtained showing Normal RV Function and size, with mildly elevated pulmonary pressures and mild to moderate TR. Of note, Mr. Pérez was recently hospitalized here at the end of July for 2 days, then again for 5 days until August 02. Today the patient reports improved overall symptoms. No Hypoxia noted. Remains hemodynamically stable. Exam Narrative Exam Narrative: General: Patient appears comfortable, AAOX3, NAD Neck: Supple CV: Regular, nontachycardic, S1S2, No rubs, murmurs, or gallops. Pulmonary: Mildly diminished bibasilar breathsounds, otherwise clear to auscultation bilaterally without crackles, wheezing, or rhonchi Abdomen: + Bowel Sounds, soft, nontender, nondistended Vascular: No lower extremity edema Psych: Normal mood and affect. Objective Objective Clinical Data: Abnormal lab results 08/13/18 08/13/18 08/13/18 Range/Units 05:56 05:56 05:56 WBC 14.48 H (4.4-10.8) k/cumm RBC 3.93 L (4.50-6.00) m/cumm Hgb 11.9 L (13.5-17.5) g/dL Hct 36.1 L (40.0-50.0) % Absolute Neutrophils 12.76 H (1.2-6.7) k/cumm Absolute Lymphocytes 0.74 L (1.2-3.4) k/cumm Absolute Monocytes 0.93 H (0.11-0.7) k/cumm APTT 42.8 H (21.0-31.4) sec BUN 20 H D (7-18) mg/dL Glucose 150 H (70-100) mg/dL Vital Signs Temperature 37.2 C 08/13/18 16:30 Temperature Source Tympanic 08/13/18 16:30 Pulse 73 08/13/18 16:30 Pulse Rhythm Regular 08/13/18 17:40 Respiratory Rate 18 08/13/18 16:30 Respiratory Effort Non-Labored 08/13/18 17:40 Respiratory Depth Normal 08/13/18 17:40 Respiratory Pattern Normal 08/13/18 17:40 Blood Pressure 142/77 H 08/13/18 16:30 Pulse Oximetry 94 L 08/13/18 16:30 Oxygen Delivery Method Room Air 08/13/18 16:30 Oxygen Flow Rate 0 08/13/18 16:30 Pain Level 8 08/13/18 13:36 Comment 08/13/18 04:00 Intake & Output 08/12/18 08/13/18 08/13/18 23:59 11:59 23:59 Intake Total 368.55 / 368.55 2473.70 / 2473.70 480 / 480 Output Total 400 / 400 900 / 900 300 / 300 Balance -31.45 / -31.45 1573.70 / 1573.70 180 / 180 Weight 59 kg Intake: IV 128.55 / 128.55 1098.70 / 1098.70 Oral 240 / 240 1375 / 1375 480 / 480 Output: Urine 400 / 400 900 / 900 300 / 300 Other: Urine Color Yellow Yellow Yellow Urine Appearance Clear Clear Clear Urine Odor Normal Normal Voiding Methods Urinal Urinal Laboratory Results WBC 14.48 k/cumm (4.4-10.8) H 08/13/18 05:56 RBC 3.93 m/cumm (4.50-6.00) L 08/13/18 05:56 Hgb 11.9 g/dL (13.5-17.5) L 08/13/18 05:56 Hct 36.1 % (40.0-50.0) L 08/13/18 05:56 MCV 91.9 fL (80-95) 08/13/18 05:56 MCH 30.3 pg (27.0-33.0) 08/13/18 05:56 MCHC 33.0 g/dL (32.0-36.0) 08/13/18 05:56 RDW 14.1 % (11.8-14.1) 08/13/18 05:56 Plt Count 144 x1000/uL (130-400) 08/13/18 05:56 MPV 10.0 fL (8.0-11.0) 08/13/18 05:56 Immature Gran % 0.3 08/13/18 05:56 Neutrophils % 88.1 08/13/18 05:56 Lymphocytes % 5.1 08/13/18 05:56 Monocytes % 6.4 08/13/18 05:56 Eosinophils % 0.1 08/13/18 05:56 Basophils % 0.0 08/13/18 05:56 Absolute Neutrophils 12.76 k/cumm (1.2-6.7) H 08/13/18 05:56 Absolute Lymphocytes 0.74 k/cumm (1.2-3.4) L 08/13/18 05:56 Absolute Monocytes 0.93 k/cumm (0.11-0.7) H 08/13/18 05:56 Absolute Eosinophils 0.01 k/cumm (0.0-0.7) 08/13/18 05:56 Absolute Basophils 0.00 k/cumm (0.0-0.2) 08/13/18 05:56 PT 11.0 sec (9.3-10.8) H 08/11/18 22:00 INR 1.1 (1.0-3.5) 08/11/18 22:00 APTT 42.8 sec (21.0-31.4) H 08/13/18 05:56 Sodium 142 mmol/L (136-145) 08/13/18 05:56 Potassium 4.6 mmol/L (3.5-5.1) 08/13/18 05:56 Chloride 107 mmol/L (98-107) 08/13/18 05:56 Carbon Dioxide 25.8 mmol/L (21.0-32.0) 08/13/18 05:56 Anion Gap 9.2 mmol/L (3-11) 08/13/18 05:56 BUN 20 mg/dL (7-18) H D 08/13/18 05:56 Creatinine 1.07 mg/dL (0.70-1.30) 08/13/18 05:56 Estimated GFR/1.73 m2 >= 60.00 (mL/min/1.73m2) 08/13/18 05:56 Glucose 150 mg/dL (70-100) H 08/13/18 05:56 Calcium 8.8 mg/dL (8.5-10.1) 08/13/18 05:56 Magnesium 1.9 mg/dL (1.8-2.4) 08/13/18 05:56 Total Bilirubin 0.3 mg/dL (0.2-1.0) 08/11/18 17:40 AST 27 U/L (15-37) 08/11/18 17:40 ALT 36 U/L (12-78) 08/11/18 17:40 Alkaline Phosphatase 150 U/L (46-116) H 08/11/18 17:40 Troponin I < 0.02 ng/mL (0.00-0.06) 08/12/18 03:00 NT-Pro-B Natriuret Pep 308 pg/mL (-299) H 08/11/18 17:40 Total Protein 6.3 g/dL (6.4-8.2) L 08/11/18 17:40 Albumin 3.4 g/dL (3.4-5.0) 08/11/18 17:40
[2018-08-13] MEDS: Atorvastatin 40 MG TAB 80 MG PO (20:23)
[2018-08-13] MEDS: LEVOFLOXACIN 500 MG, LEVOFLOXACIN 250 MG 750 MG PO (20:24)
[2018-08-13] MEDS: Apixaban 5 MG TAB PO (20:24)
[2018-08-13] MEDS: Mometasone 220 MCG 14 DOSE INHALER 1 PUFF IH (20:26)
[2018-08-13] MEDS: traZODone 50 MG TAB 100 MG PO (20:39)
[2018-08-14] VITALS (8 sets, daily range): BP systolic 109–126; BP diastolic 65–75; PULSE 47–72; RESP 16–18; TEMP 35.3–37.1; O2SAT 94–96
[2018-08-14 06:58] LABS: Anion Gap 6.4 mmol/L (3-11); BUN 27 mg/dL (7-18); CO2 25.6 mmol/L (21.0-32.0); CREATININE 1.01 mg/dL (0.70-1.30); Calcium 8.1 mg/dL (8.5-10.1); Chloride 110 mmol/L (98-107); Glucose 106 mg/dL (70-100); Potassium 4.2 mmol/L (3.5-5.1); Sodium 142 mmol/L (136-145)
[2018-08-14 07:00] LABS: PTT Activated 20.1 sec (21.0-31.4)
[2018-08-14] MEDS: Normal Saline 1,000 ML 75 ML IV (07:03)
[2018-08-14 08:13] LABS: Abs Immature Grans 0.02 k/cumm (0.0-0.09); Absolute Basophil Count 0.02 k/cumm (0.0-0.2); Absolute Eosinophil Count 0.18 k/cumm (0.0-0.7); Absolute Lymphocyte Count 1.59 k/cumm (1.2-3.4); Absolute Monocyte Count 0.64 k/cumm (0.11-0.7); Absolute Neutrophil Count 5.25 k/cumm (1.2-6.7); Basophils % 0.3; Eosinophils % 2.3; HGB 11.3 g/dL (13.5-17.5); Immature Grans % 0.3; Lymphocytes % 20.6; Mean Corp. HGB Concentration 32.3 g/dL (32.0-36.0); Mean Corpuscular Hemoglobin 30.5 pg (27.0-33.0); Mean Corpuscular Volume 94.6 fL (80-95); Mean Platelet Volume 10.1 fL (8.0-11.0); Monocytes % 8.3; Neutrophils % 68.2; Platelet Count 117 x1000/uL (130-400); RBC Distribution Width 14.7 % (11.8-14.1)
[2018-08-14] MEDS: Gabapentin 600 MG TAB PO ×3 (08:50→20:04)
[2018-08-14] MEDS: Benzonatate 200 MG CAP PO ×3 (08:50→20:05)
[2018-08-14] MEDS: Isosorbide Dinitrate 10 MG TAB 20 MG PO ×2 (08:50→20:00)
[2018-08-14] MEDS: Triamcinolone 0.1% CR 15 GM TUBE TP (08:50)
[2018-08-14] MEDS: Clopidogrel 75 MG TAB PO (08:50)
[2018-08-14] MEDS: Acetaminophen 325 MG TAB PO (08:50)
[2018-08-14] MEDS: Magnesium Oxide 400 MG TAB PO (08:50)
[2018-08-14] MEDS: Sucralfate 1 GM TAB PO ×4 (08:50→20:05)
[2018-08-14] MEDS: Pantoprazole 40 MG TABCR PO (08:51)
[2018-08-14] MEDS: Citalopram 20 MG TAB 40 MG PO (08:51)
[2018-08-14] MEDS: lamoTRIgine 100 MG TAB PO ×2 (08:51→20:04)
[2018-08-14] MEDS: Apixaban 5 MG TAB PO ×2 (08:51→20:05)
--- NOTE | 2018-08-14 12:34 | PT.INTREAT ---
Date of service: 08/14/18 Time of Service: 10:20 PT Notes Inpatient Physical Therapy Treatment Note Date: 08/14/18 SUBJECTIVE: Miguel states that he is doing better. He offers no complaints to me today. OBJECTIVE: [] BED MOBILITY/TRANSFERS Supine-sit:S Sit-supine: SBA Sit-stand: SBA Stand-sit: SBA GAIT Assistive Device: FWW Weight bearing: full Assist: CGA Distance: 200' Deviation: AFO and shoes required. Reminders to look ahead as he tends to look down at feet. THEREX: global strengthening, see flowsheet for details. ASSESSMENT: tolerated session well. Remains positive. Enjoys exercising. Did have some c/o fatigue in left UE, towards end of session. PLAN: continue progressing his strength and functional mobility to tolerance. TREATMENT CODE/TIME: 23 min. TPx1, TAx1.
--- NOTE | 2018-08-14 15:29 | W.PM.PROGNOT ---
Assessment and Plan (1) Pulmonary embolism: Current visit: Yes Status: Chronic No evidence of Right heart strain on echo - does have mild pulmonary hypertension with mild to moderate TR. LE Ultrasound without evidence for DVTs. Discontinued IV Heparin in favor of therapeutic Apixaban - Continue GI Prophylaxis with both PPI and carafate as per home regimen. Of note, Mr. Pérez had a brief hospitalization here between 07/21 - 07/22, as well as a 5 day hospital stay that ended 08/02/2018. As per review of records it does not appear that he was on chemical DVT prophylaxis at that time. May presume PE to be secondary to a provoked DVT. Also with evidence of infiltrate on CT, but without fever, although with leukocytosis yesterday - started on Levaquin as secondary coverage for potential HCAP, with resolved leukocytosis today. Currently day #2 of antibiotic therapy. (2) Acute pneumonitis: Current visit: Yes Status: Acute Reported continued cough along with brown sputum production yesterday, with further improvement today. No fever but with development of leukocytosis which may well be reactive. However, given recent hospitalization and detention residence favored a brief course of antibiotics. Day #2 of Levofloxacin today. (3) TBI (traumatic brain injury): Current visit: No Status: Chronic Patient is at his neurological baseline. Has a history of seizure activity post TBI, maintained chronically on Lamictal. PT/OT consulted while in the hospital. (4) CVA (cerebral vascular accident): Current visit: No Status: Chronic With residual left sided deficits. Continue antiplatelet therapy with Clopidogrel. Also on high potency statin therapy. (5) CAD (coronary artery disease): Current visit: Yes Status: Chronic Continue statin, Clopidogrel, and isordil. Not on BB as per review of home meds. (6) COPD (chronic obstructive pulmonary disease): Current visit: Yes Status: Chronic Appears Quiescent. Noted. (7) DVT prophylaxis: Current visit: Yes Status: Acute Currently on active anticoagulation. (8) Discharge planning issues: Current visit: Yes Status: Acute Full Code. [facility]. Subjective Interval history since last seen: 63-year-old half-way resident of [facility] in [facility] admitted from [facility] emergency department with a dignosis of Pulmonary Embolism. Mr. Pérez had acute onset of chest pain associated with a cough. Evaluation in the emergency room included a chest x-ray that suggested widening of the mediastinum, with subsequent CTA of the chest showing a new right-sided pulmonary embolism as well as suggestion of pulmonary arterial hypertension and right heart strain. He was also found to have groundglass nodular densities in the medial aspect of the right lung suggestive of either an infectious or inflammatory process and mildly enlarged hilar lymph nodes as well as evidence of bronchitis. In the emergency room he was treated with oral Levaquin for pneumonia although he was afebrile and had no leukocytosis on his CBC. Initially the ER personnel had anticipated discharging him back to the detention on antibiotics for a lower respiratory tract infection but with the new findings of a right-sided pulmonary embolus patient was started on intravenous heparin and referred for admission. The patient currently remains on heparin gtt, with ECHO obtained showing Normal RV Function and size, with mildly elevated pulmonary pressures and mild to moderate TR. Of note, Mr. Pérez was recently hospitalized here at the end of July for 2 days, then again for 5 days until August 02. Today the patient reports continued improvement in overall symptoms, including cough. No Hypoxia noted. Remains hemodynamically stable. Exam Narrative Exam Narrative: General: Patient appears comfortable, AAOX3, NAD Neck: Supple CV: Regular, nontachycardic, S1S2, No rubs, murmurs, or gallops. Pulmonary: CTAB without crackles, wheezing, or rhonchi Abdomen: + Bowel Sounds, soft, nontender, nondistended Vascular: No lower extremity edema Psych: Normal mood and affect. Objective Objective Clinical Data: Abnormal lab results 08/14/18 08/14/18 08/14/18 Range/Units 06:25 06:25 06:25 RBC 3.70 L (4.50-6.00) m/cumm Hgb 11.3 L (13.5-17.5) g/dL Hct 35.0 L (40.0-50.0) % RDW 14.7 H (11.8-14.1) % Plt Count 117 L (130-400) x1000/uL APTT 20.1 L (21.0-31.4) sec Chloride 110 H (98-107) mmol/L BUN 27 H (7-18) mg/dL Glucose 106 H (70-100) mg/dL Calcium 8.1 L (8.5-10.1) mg/dL Vital Signs Temperature 37.1 C 08/14/18 11:19 Temperature Source Tympanic 08/14/18 11:19 Pulse 65 08/14/18 11:19 Pulse Rhythm Regular 08/14/18 14:48 Respiratory Rate 18 08/14/18 11:19 Respiratory Effort Non-Labored 08/14/18 14:48 Respiratory Depth Normal 08/14/18 14:48 Respiratory Pattern Normal 08/14/18 14:48 Blood Pressure 109/69 08/14/18 11:19 Pulse Oximetry 96 08/14/18 11:19 Oxygen Delivery Method Room Air 08/14/18 11:19 Oxygen Flow Rate 0 08/14/18 11:19 Pain Level 0 08/14/18 03:15 Comment 08/13/18 04:00 Intake & Output 08/13/18 08/14/18 08/14/18 23:59 11:59 23:59 Intake Total 1730 / 1730 1893.75 / 1893.75 500 / 500 Output Total 1100 / 1100 1450 / 1450 400 / 400 Balance 630 / 630 443.75 / 443.75 100 / 100 Weight 64 kg Intake: IV 1010 / 1010 1023.75 / 1023.75 Oral 720 / 720 870 / 870 500 / 500 Output: Urine 1100 / 1100 1450 / 1450 400 / 400 Other: Urine Color Pale Yellow Yellow Urine Appearance Clear Clear Clear Urine Odor None Normal Normal Stool Size Large Stool Characteristics Soft Formed Voiding Methods Urinal Urinal Laboratory Results WBC 7.70 k/cumm (4.4-10.8) D 08/14/18 06:25 RBC 3.70 m/cumm (4.50-6.00) L 08/14/18 06:25 Hgb 11.3 g/dL (13.5-17.5) L 08/14/18 06:25 Hct 35.0 % (40.0-50.0) L 08/14/18 06:25 MCV 94.6 fL (80-95) 08/14/18 06:25 MCH 30.5 pg (27.0-33.0) 08/14/18 06:25 MCHC 32.3 g/dL (32.0-36.0) 08/14/18 06:25 RDW 14.7 % (11.8-14.1) H 08/14/18 06:25 Plt Count 117 x1000/uL (130-400) L 08/14/18 06:25 MPV 10.1 fL (8.0-11.0) 08/14/18 06:25 Immature Gran % 0.3 08/14/18 06:25 Neutrophils % 68.2 08/14/18 06:25 Lymphocytes % 20.6 08/14/18 06:25 Monocytes % 8.3 08/14/18 06:25 Eosinophils % 2.3 08/14/18 06:25 Basophils % 0.3 08/14/18 06:25 Absolute Neutrophils 5.25 k/cumm (1.2-6.7) 08/14/18 06:25 Absolute Lymphocytes 1.59 k/cumm (1.2-3.4) 08/14/18 06:25 Absolute Monocytes 0.64 k/cumm (0.11-0.7) 08/14/18 06:25 Absolute Eosinophils 0.18 k/cumm (0.0-0.7) 08/14/18 06:25 Absolute Basophils 0.02 k/cumm (0.0-0.2) 08/14/18 06:25 PT 11.0 sec (9.3-10.8) H 08/11/18 22:00 INR 1.1 (1.0-3.5) 08/11/18 22:00 APTT 20.1 sec (21.0-31.4) L 08/14/18 06:25 Sodium 142 mmol/L (136-145) 08/14/18 06:25 Potassium 4.2 mmol/L (3.5-5.1) 08/14/18 06:25 Chloride 110 mmol/L (98-107) H 08/14/18 06:25 Carbon Dioxide 25.6 mmol/L (21.0-32.0) 08/14/18 06:25 Anion Gap 6.4 mmol/L (3-11) 08/14/18 06:25 BUN 27 mg/dL (7-18) H 08/14/18 06:25 Creatinine 1.01 mg/dL (0.70-1.30) 08/14/18 06:25 Estimated GFR/1.73 m2 >= 60.00 (mL/min/1.73m2) 08/14/18 06:25 Glucose 106 mg/dL (70-100) H 08/14/18 06:25 Calcium 8.1 mg/dL (8.5-10.1) L 08/14/18 06:25 Magnesium 1.9 mg/dL (1.8-2.4) 08/13/18 05:56 Total Bilirubin 0.3 mg/dL (0.2-1.0) 08/11/18 17:40 AST 27 U/L (15-37) 08/11/18 17:40 ALT 36 U/L (12-78) 08/11/18 17:40 Alkaline Phosphatase 150 U/L (46-116) H 08/11/18 17:40 Troponin I < 0.02 ng/mL (0.00-0.06) 08/12/18 03:00 NT-Pro-B Natriuret Pep 308 pg/mL (-299) H 08/11/18 17:40 Total Protein 6.3 g/dL (6.4-8.2) L 08/11/18 17:40 Albumin 3.4 g/dL (3.4-5.0) 08/11/18 17:40
--- NOTE | 2018-08-14 15:34 | PGE_ITS ---
Assessment and Plan (1) Pulmonary embolism: Current visit: Yes Status: Chronic No evidence of Right heart strain on echo - does have mild pulmonary hypertension with mild to moderate TR. LE Ultrasound without evidence for DVTs. Discontinued IV Heparin in favor of therapeutic Apixaban - Continue GI Prophylaxis with both PPI and carafate as per home regimen. Of note, Mr. Pérez had a brief hospitalization here between 07/21 - 07/22, as well as a 5 day hospital stay that ended 08/02/2018. As per review of records it does not appear that he was on chemical DVT prophylaxis at that time. May presume PE to be secondary to a provoked DVT. Also with evidence of infiltrate on CT, but without fever, although with leukocytosis yesterday - started on Levaquin as secondary coverage for potential HCAP, with resolved leukocytosis today. Currently day #2 of antibiotic therapy. (2) Acute pneumonitis: Current visit: Yes Status: Acute Reported continued cough along with brown sputum production yesterday, with further improvement today. No fever but with development of leukocytosis which may well be reactive. However, given recent hospitalization and halfway residence favored a brief course of antibiotics. Day #2 of Levofloxacin today. (3) TBI (traumatic brain injury): Current visit: No Status: Chronic Patient is at his neurological baseline. Has a history of seizure activity post TBI, maintained chronically on Lamictal. PT/OT consulted while in the hospital. (4) CVA (cerebral vascular accident): Current visit: No Status: Chronic With residual left sided deficits. Continue antiplatelet therapy with Clopidogrel. Also on high potency statin therapy. (5) CAD (coronary artery disease): Current visit: Yes Status: Chronic Continue statin, Clopidogrel, and isordil. Not on BB as per review of home meds. (6) COPD (chronic obstructive pulmonary disease): Current visit: Yes Status: Chronic Appears Quiescent. Noted. (7) DVT prophylaxis: Current visit: Yes Status: Acute Currently on active anticoagulation. (8) Discharge planning issues: Current visit: Yes Status: Acute Full Code. For likely discharge back to [place] tomorrow. Subjective Interval history since last seen: 63-year-old custodial resident of [facility] in [facility] admitted from [facility] emergency department with a dignosis of Pulmonary Embolism. Mr. Pérez had acute onset of chest pain associated with a cough. Evaluation in the emergency room included a chest x-ray that suggested widening of the mediastinum, with subsequent CTA of the chest showing a new right-sided pulmonary embolism as well as suggestion of pulmonary arterial hypertension and right heart strain. He was also found to have groundglass nodular densities in the medial aspect of the right lung suggestive of either an infectious or inflammatory process and mildly enlarged hilar lymph nodes as well as evidence of bronchitis. In the emergency room he was treated with oral Levaquin for pneumonia although he was afebrile and had no leukocytosis on his CBC. Initially the ER personnel had anticipated discharging him back to the halfway on antibiotics for a lower respiratory tract infection but with the new findings of a right-sided pulmonary embolus patient was started on intravenous heparin and referred for admission. The patient currently remains on heparin gtt, with ECHO obtained showing Normal RV Function and size, with mildly elevated pulmonary pressures and mild to moderate TR. Of note, Mr. Pérez was recently hospitalized here at the end of July for 2 days, then again for 5 days until August 02. Today the patient reports continued improvement in overall symptoms, including cough. No Hypoxia noted. Remains hemodynamically stable. Exam Narrative Exam Narrative: General: Patient appears comfortable, AAOX3, NAD Neck: Supple CV: Regular, nontachycardic, S1S2, No rubs, murmurs, or gallops. Pulmonary: CTAB without crackles, wheezing, or rhonchi Abdomen: + Bowel Sounds, soft, nontender, nondistended Vascular: No lower extremity edema Psych: Normal mood and affect. Objective Objective Clinical Data: Abnormal lab results 08/14/18 08/14/18 08/14/18 Range/Units 06:25 06:25 06:25 RBC 3.70 L (4.50-6.00) m/cumm Hgb 11.3 L (13.5-17.5) g/dL Hct 35.0 L (40.0-50.0) % RDW 14.7 H (11.8-14.1) % Plt Count 117 L (130-400) x1000/uL APTT 20.1 L (21.0-31.4) sec Chloride 110 H (98-107) mmol/L BUN 27 H (7-18) mg/dL Glucose 106 H (70-100) mg/dL Calcium 8.1 L (8.5-10.1) mg/dL Vital Signs Temperature 37.1 C 08/14/18 11:19 Temperature Source Tympanic 08/14/18 11:19 Pulse 65 08/14/18 11:19 Pulse Rhythm Regular 08/14/18 14:48 Respiratory Rate 18 08/14/18 11:19 Respiratory Effort Non-Labored 08/14/18 14:48 Respiratory Depth Normal 08/14/18 14:48 Respiratory Pattern Normal 08/14/18 14:48 Blood Pressure 109/69 08/14/18 11:19 Pulse Oximetry 96 08/14/18 11:19 Oxygen Delivery Method Room Air 08/14/18 11:19 Oxygen Flow Rate 0 08/14/18 11:19 Pain Level 0 08/14/18 03:15 Comment 08/13/18 04:00 Intake & Output 08/13/18 08/14/18 08/14/18 23:59 11:59 23:59 Intake Total 1730 / 1730 1893.75 / 1893.75 500 / 500 Output Total 1100 / 1100 1450 / 1450 400 / 400 Balance 630 / 630 443.75 / 443.75 100 / 100 Weight 64 kg Intake: IV 1010 / 1010 1023.75 / 1023.75 Oral 720 / 720 870 / 870 500 / 500 Output: Urine 1100 / 1100 1450 / 1450 400 / 400 Other: Urine Color Pale Yellow Yellow Urine Appearance Clear Clear Clear Urine Odor None Normal Normal Stool Size Large Stool Characteristics Soft Formed Voiding Methods Urinal Urinal Laboratory Results WBC 7.70 k/cumm (4.4-10.8) D 08/14/18 06:25 RBC 3.70 m/cumm (4.50-6.00) L 08/14/18 06:25 Hgb 11.3 g/dL (13.5-17.5) L 08/14/18 06:25 Hct 35.0 % (40.0-50.0) L 08/14/18 06:25 MCV 94.6 fL (80-95) 08/14/18 06:25 MCH 30.5 pg (27.0-33.0) 08/14/18 06:25 MCHC 32.3 g/dL (32.0-36.0) 08/14/18 06:25 RDW 14.7 % (11.8-14.1) H 08/14/18 06:25 Plt Count 117 x1000/uL (130-400) L 08/14/18 06:25 MPV 10.1 fL (8.0-11.0) 08/14/18 06:25 Immature Gran % 0.3 08/14/18 06:25 Neutrophils % 68.2 08/14/18 06:25 Lymphocytes % 20.6 08/14/18 06:25 Monocytes % 8.3 08/14/18 06:25 Eosinophils % 2.3 08/14/18 06:25 Basophils % 0.3 08/14/18 06:25 Absolute Neutrophils 5.25 k/cumm (1.2-6.7) 08/14/18 06:25 Absolute Lymphocytes 1.59 k/cumm (1.2-3.4) 08/14/18 06:25 Absolute Monocytes 0.64 k/cumm (0.11-0.7) 08/14/18 06:25 Absolute Eosinophils 0.18 k/cumm (0.0-0.7) 08/14/18 06:25 Absolute Basophils 0.02 k/cumm (0.0-0.2) 08/14/18 06:25 PT 11.0 sec (9.3-10.8) H 08/11/18 22:00 INR 1.1 (1.0-3.5) 08/11/18 22:00 APTT 20.1 sec (21.0-31.4) L 08/14/18 06:25 Sodium 142 mmol/L (136-145) 08/14/18 06:25 Potassium 4.2 mmol/L (3.5-5.1) 08/14/18 06:25 Chloride 110 mmol/L (98-107) H 08/14/18 06:25 Carbon Dioxide 25.6 mmol/L (21.0-32.0) 08/14/18 06:25 Anion Gap 6.4 mmol/L (3-11) 08/14/18 06:25 BUN 27 mg/dL (7-18) H 08/14/18 06:25 Creatinine 1.01 mg/dL (0.70-1.30) 08/14/18 06:25 Estimated GFR/1.73 m2 >= 60.00 (mL/min/1.73m2) 08/14/18 06:25 Glucose 106 mg/dL (70-100) H 08/14/18 06:25 Calcium 8.1 mg/dL (8.5-10.1) L 08/14/18 06:25 Magnesium 1.9 mg/dL (1.8-2.4) 08/13/18 05:56 Total Bilirubin 0.3 mg/dL (0.2-1.0) 08/11/18 17:40 AST 27 U/L (15-37) 08/11/18 17:40 ALT 36 U/L (12-78) 08/11/18 17:40 Alkaline Phosphatase 150 U/L (46-116) H 08/11/18 17:40 Troponin I < 0.02 ng/mL (0.00-0.06) 08/12/18 03:00 NT-Pro-B Natriuret Pep 308 pg/mL (-299) H 08/11/18 17:40 Total Protein 6.3 g/dL (6.4-8.2) L 08/11/18 17:40 Albumin 3.4 g/dL (3.4-5.0) 08/11/18 17:40
--- NOTE | 2018-08-14 17:31 | PDOC.CMPRO ---
- If Service Date Differs Date of service: 08/14/18 Time of Service: 17:31 Care Management Progress Note S/O: CM met with patient at the bedside he will return to the [facility] tomorrow. Miguel walked in the halls with PT today and a walker. Miguel was started on Eliquis and will continue medication at time of discharge per MD. A:Miguel is a 63 year old male with multiple morbidities and recent admissions, admitted with PE. P:Miguel will discharge back to the [facility] when medically ready per MD. No change in his status today. Anticipate he will discharged back to the [facility] on Wednesday. CM confirmed with the [facility]. Time to be determined. CM to coordinate transportation prior to discharge. CM will continue to offer support to patient and care team regarding discharge planning and disposition.
--- NOTE | 2018-08-14 17:37 | CMPROGNOTE_ITS ---
- If Service Date Differs Date of service: 08/14/18 Time of Service: 17:31 Care Management Progress Note S/O: CM met with patient at the bedside he will return to the [facility] tomorrow. Miguel walked in the halls with PT today and a walker. Miguel was started on Eliquis and will continue medication at time of discharge per MD. A:Miguel is a 63 year old male with multiple morbidities and recent admissions, admitted with PE. P:Miguel will discharge back to the [facility] when medically ready per MD. No change in his status today. Anticipate he will discharged back to the [facility] on Wednesday. CM confirmed with the [facility]. Time to be determined. CM to coordinate transportation prior to discharge. CM will continue to offer support to patient and care team regarding discharge planning and disposition.
[2018-08-14] MEDS: LEVOFLOXACIN 500 MG, LEVOFLOXACIN 250 MG 750 MG PO (20:02)
[2018-08-14] MEDS: Atorvastatin 40 MG TAB 80 MG PO (20:04)
[2018-08-14] MEDS: Mometasone 220 MCG 14 DOSE INHALER 1 PUFF IH (20:06)
[2018-08-14] MEDS: fentaNYL 50 MCG PATCH TD (22:23)
[2018-08-14] MEDS: traZODone 50 MG TAB 100 MG PO (22:23)
[2018-08-15 00:21] VITALS: BP 99/63; PULSE 58; RESP 18; TEMP 36.8; O2SAT 96
[2018-08-15 01:35] VITALS: BP 99/63; RESP 55
[2018-08-15] MEDS: Acetaminophen 325 MG TAB PO (04:14)
--- NOTE | 2018-08-15 05:02 | W.PM.PROGNOT ---
Assessment and Plan (1) Left shoulder pain: Current visit: Yes Status: Acute His pain seems to be musculoskeletal with some features of radiculopathy. The muscles of the suprascapular area of his neck and shoulder are very tender to palpation and for this reason I am going to treat him with both narcotics as well as Valium for muscle spasm. Will get an x-ray of his neck and shoulder as well as a single view x-ray of the chest. He may need an MRI of his cervical spine to evaluate for some spinal stenosis or narrowing of the neuroforaminal C-spine. I checked an EKG there were no acute ischemic changes. He denies any shortness of breath or chest pain with this. He is already anticoagulated for pulmonary embolism therefore I doubt that the pain is related to any thromboembolism. Subjective Interval history since last seen: Patient c/o of acute left shoulder and left arm pain w/ tingling down to fingers of his right hand. No dyspnea nor chest pain. This awoke him from a sound sleep tonight. He feels that he may have been overworked during physical therapy yesterday. He said he has had similar pains but not as severe in the past. Exam Narrative Exam Narrative: Patient is in severe pain to the point of nearly crying. Pain starts up in the left supra scapular area of his shoulder and is reproducible with palpation over the left suprascapular area and left shoulder. Pain radiates down to his left hand and is associated with a tingling sensation in his fingers. Pain seems to be worse with abduction of the left arm. He denies any history of falls on that left shoulder arm. There is no palpable or visible displacement of the shoulder or clavicle. He has normal radial pulses in the left wrist. Examination of the chest reveals clear lung sounds. Examination of the neck reveals normal range of motion of the neck with no cervical spinal tenderness with palpation. Objective Objective Clinical Data: Abnormal lab results 08/14/18 08/14/18 08/14/18 Range/Units 06:25 06:25 06:25 RBC 3.70 L (4.50-6.00) m/cumm Hgb 11.3 L (13.5-17.5) g/dL Hct 35.0 L (40.0-50.0) % RDW 14.7 H (11.8-14.1) % Plt Count 117 L (130-400) x1000/uL APTT 20.1 L (21.0-31.4) sec Chloride 110 H (98-107) mmol/L BUN 27 H (7-18) mg/dL Glucose 106 H (70-100) mg/dL Calcium 8.1 L (8.5-10.1) mg/dL Vital Signs Temperature 36.8 C 08/15/18 00:21 Temperature Source Tympanic 08/15/18 00:21 Pulse 58 L 08/15/18 00:21 Pulse Rhythm Regular 08/15/18 00:45 Respiratory Rate 55 H 08/15/18 01:35 Respiratory Effort 08/15/18 00:45 Respiratory Depth Normal 08/15/18 00:45 Respiratory Pattern Normal 08/15/18 00:45 Blood Pressure 99/63 L 08/15/18 01:35 Pulse Oximetry 96 08/15/18 00:21 Oxygen Delivery Method Room Air 08/14/18 15:39 Oxygen Flow Rate 0 08/14/18 15:39 Pain Level 10 08/15/18 04:14 Comment 08/15/18 00:21 Intake & Output 08/14/18 08/14/18 08/15/18 11:59 23:59 11:59 Intake Total 1893.75 / 1893.75 980 / 980 Output Total 1450 / 1450 1550 / 1550 Balance 443.75 / 443.75 -570 / -570 Weight 64 kg Intake: IV 1023.75 / 1023.75 Oral 870 / 870 980 / 980 Output: Urine 1450 / 1450 1550 / 1550 Other: Urine Color Yellow Yellow Urine Appearance Clear Clear Clear Urine Odor Normal Normal Stool Size Large Stool Characteristics Soft Formed Voiding Methods Urinal Laboratory Results WBC 7.70 k/cumm (4.4-10.8) D 08/14/18 06:25 RBC 3.70 m/cumm (4.50-6.00) L 08/14/18 06:25 Hgb 11.3 g/dL (13.5-17.5) L 08/14/18 06:25 Hct 35.0 % (40.0-50.0) L 08/14/18 06:25 MCV 94.6 fL (80-95) 08/14/18 06:25 MCH 30.5 pg (27.0-33.0) 08/14/18 06:25 MCHC 32.3 g/dL (32.0-36.0) 08/14/18 06:25 RDW 14.7 % (11.8-14.1) H 08/14/18 06:25 Plt Count 117 x1000/uL (130-400) L 08/14/18 06:25 MPV 10.1 fL (8.0-11.0) 08/14/18 06:25 Immature Gran % 0.3 08/14/18 06:25 Neutrophils % 68.2 08/14/18 06:25 Lymphocytes % 20.6 08/14/18 06:25 Monocytes % 8.3 08/14/18 06:25 Eosinophils % 2.3 08/14/18 06:25 Basophils % 0.3 08/14/18 06:25 Absolute Neutrophils 5.25 k/cumm (1.2-6.7) 08/14/18 06:25 Absolute Lymphocytes 1.59 k/cumm (1.2-3.4) 08/14/18 06:25 Absolute Monocytes 0.64 k/cumm (0.11-0.7) 08/14/18 06:25 Absolute Eosinophils 0.18 k/cumm (0.0-0.7) 08/14/18 06:25 Absolute Basophils 0.02 k/cumm (0.0-0.2) 08/14/18 06:25 PT 11.0 sec (9.3-10.8) H 08/11/18 22:00 INR 1.1 (1.0-3.5) 08/11/18 22:00 APTT 20.1 sec (21.0-31.4) L 08/14/18 06:25 Sodium 142 mmol/L (136-145) 08/14/18 06:25 Potassium 4.2 mmol/L (3.5-5.1) 08/14/18 06:25 Chloride 110 mmol/L (98-107) H 08/14/18 06:25 Carbon Dioxide 25.6 mmol/L (21.0-32.0) 08/14/18 06:25 Anion Gap 6.4 mmol/L (3-11) 08/14/18 06:25 BUN 27 mg/dL (7-18) H 08/14/18 06:25 Creatinine 1.01 mg/dL (0.70-1.30) 08/14/18 06:25 Estimated GFR/1.73 m2 >= 60.00 (mL/min/1.73m2) 08/14/18 06:25 Glucose 106 mg/dL (70-100) H 08/14/18 06:25 Calcium 8.1 mg/dL (8.5-10.1) L 08/14/18 06:25 Magnesium 1.9 mg/dL (1.8-2.4) 08/13/18 05:56 Total Bilirubin 0.3 mg/dL (0.2-1.0) 08/11/18 17:40 AST 27 U/L (15-37) 08/11/18 17:40 ALT 36 U/L (12-78) 08/11/18 17:40 Alkaline Phosphatase 150 U/L (46-116) H 08/11/18 17:40 Troponin I < 0.02 ng/mL (0.00-0.06) 08/12/18 03:00 NT-Pro-B Natriuret Pep 308 pg/mL (-299) H 08/11/18 17:40 Total Protein 6.3 g/dL (6.4-8.2) L 08/11/18 17:40 Albumin 3.4 g/dL (3.4-5.0) 08/11/18 17:40
--- NOTE | 2018-08-15 05:05 | DI.RAD_ITS ---
SYMPTOM/DIAGNOSIS: LT SHOULDER PAIN, ARM PAIN AP CHEST: An apparent pacer overlies the left thorax. Heart is not enlarged. The lungs are grossly clear. No pleural effusion is seen. CONCLUSION: No evidence of acute disease. LEFT SHOULDER: Four views were obtained. Apparent pacer noted overlying the left shoulder region. There are mild degenerative changes of acromioclavicular and glenohumeral joints. No evidence of acute fracture or dislocation. CERVICAL SPINE: Five views were obtained. There is marked narrowing of intervertebral disc spaces from C 3-4 through C 6-7. Prominent hypertrophic changes of vertebral endplates and facet joints noted throughout the cervical region. Neural foramina are poorly seen. CONCLUSION: Severe DJD cervical spine, no other focal lesion seen.
[2018-08-15] MEDS: Diazepam 5 MG TAB PO (05:17)
[2018-08-15] MEDS: Normal Saline Flush 10 ML SYR IVP (05:19)
[2018-08-15 07:00] VITALS: PULSE 42
[2018-08-15 07:17] LABS: Abs Immature Grans 0.03 k/cumm (0.0-0.09); Absolute Basophil Count 0.02 k/cumm (0.0-0.2); Absolute Eosinophil Count 0.42 k/cumm (0.0-0.7); Absolute Lymphocyte Count 1.92 k/cumm (1.2-3.4); Absolute Monocyte Count 0.63 k/cumm (0.11-0.7); Absolute Neutrophil Count 3.27 k/cumm (1.2-6.7); Basophils % 0.3; Eosinophils % 6.7; HCT 37.4 % (40.0-50.0); HGB 12.2 g/dL (13.5-17.5); Immature Grans % 0.5; Lymphocytes % 30.5; Mean Corp. HGB Concentration 32.6 g/dL (32.0-36.0); Mean Corpuscular Hemoglobin 30.4 pg (27.0-33.0); Mean Corpuscular Volume 93.3 fL (80-95); Platelet Count 123 x1000/uL (130-400); RBC 4.01 m/cumm (4.50-6.00); RBC Distribution Width 14.3 % (11.8-14.1); White Blood Cell Count 6.29 k/cumm (4.4-10.8)
[2018-08-15 07:25] LABS: Anion Gap 8.8 mmol/L (3-11); BUN 22 mg/dL (7-18); CO2 27.2 mmol/L (21.0-32.0); CREATININE 1.01 mg/dL (0.70-1.30); Calcium 8.3 mg/dL (8.5-10.1); Chloride 106 mmol/L (98-107); Glucose 98 mg/dL (70-100); Sodium 142 mmol/L (136-145)
[2018-08-15 08:30] VITALS: BP 108/67; PULSE 59; RESP 16; TEMP 36.5; O2SAT 94
[2018-08-15] MEDS: Gabapentin 600 MG TAB PO (08:57)
[2018-08-15] MEDS: lamoTRIgine 100 MG TAB PO (08:57)
[2018-08-15] MEDS: Magnesium Oxide 400 MG TAB PO (08:57)
[2018-08-15] MEDS: Apixaban 5 MG TAB PO (08:57)
[2018-08-15] MEDS: Isosorbide Dinitrate 10 MG TAB 20 MG PO (08:57)
[2018-08-15] MEDS: Sucralfate 1 GM TAB PO (08:58)
[2018-08-15] MEDS: Pantoprazole 40 MG TABCR PO (08:58)
[2018-08-15] MEDS: Citalopram 20 MG TAB 40 MG PO (08:58)
[2018-08-15] MEDS: Benzonatate 200 MG CAP PO (08:58)
[2018-08-15] MEDS: Clopidogrel 75 MG TAB PO (08:58)
[2018-08-15] MEDS: Triamcinolone 0.1% CR 15 GM TUBE TP (08:58)
--- NOTE | 2018-08-15 10:39 | PDOC.CMDIS ---
- If Service Date Differs Date of service: 08/15/18 Time of Service: 10:39 LACE Index Scoring Tool - Questions: Length of Stay (in days): 3 Acuity (Admit via E.D.?): Yes Comorbidities: Previous M.I., Chronic Pulmonary Disease E.D. Visits: 8 - Answers: Total Score: 13 Risk of Readmission: High Risk Care Management Discharge Reason for Hospitalization: Pulmonary embolism. Discharge Plan: Miguel will discharge back to the [facility] when medically ready per MD. Anticipate patient will discharge with no new services and follow up with medical care at the [facility]. Miguel will transport via the [facility] at 1300. Patient/Family Education Needs: Discharge education, any limitations, and follow up plan of care. Ask Me Three discussion. Services Needed at Discharge: Nursing Home Facility
--- NOTE | 2018-08-15 10:46 | DSE_ITS ---
Date of service: 08/15/18 Time of Service: 10:43 DS: Diagnosis Discharge Diagnosis (1) Pulmonary embolism: Status: Acute (2) Chest pain: Status: Acute Discharge Plan Disposition Patient Disposition: SNF (LEVEL 1) [facility] Condition: Stable Discharge Details Reason For Visit: PE Admit Date/Time: 08/13/18 18:15 Admit Provider: Lexx Gooden Attending Provider: Lexx Gooden Primary Care Provider: Aissatou Briggs Hospital Course Hospital Course: CC: Chest Pain HPI: 63-year-old intermediate card tender resident of [facility] in [facility] admitted from [facility] emergency department with a dignosis of Pulmonary Embolism. Mr. Pérez had acute onset of chest pain associated with a cough. Evaluation in the emergency room included a chest x-ray that suggested widening of the mediastinum, with subsequent CTA of the chest showing a new right-sided pulmonary embolism as well as suggestion of pulmonary arterial hypertension and right heart strain. He was also found to have groundglass nodular densities in the medial aspect of the right lung suggestive of either an infectious or inflammatory process, and mildly enlarged hilar lymph nodes as well as evidence of bronchitis. In the emergency room he was treated with oral Levaquin for pneumonia although he was afebrile and had no leukocytosis on his CBC. Initially the ER personnel had anticipated discharging [facility] to the [facility] on antibiotics for a lower respiratory tract infection but with the new findings of a right-sided pulmonary embolus patient was started on intravenous heparin and referred for admission. The patient was initially maintained on a heparin gtt, then transitioned to oral anticoagulation with Apixaban. His ECHO showed normal RV Function and size, with mildly elevated pulmonary pressures and mild to moderate TR. Of note, Mr. Pérez was recently hospitalized here at the end of July for 2 days, then again for 5 days until August 02. Today the patient reports continued improvement in overall symptoms, including cough. He had an episode of acute left shoulder, left arm, left back, and left neck pain overnight that awoke him from sleep. He attributed this to overworking himself yesterday during physical therapy. No Hypoxia noted. Remains hemodynamically stable. (1) Pulmonary embolism: No evidence of Right heart strain on echo - does have mild pulmonary hypertension with mild to moderate TR. LE Ultrasound without evidence for DVTs. Discontinued IV Heparin in favor of therapeutic Apixaban - Continue GI Prophylaxis with both PPI and carafate as per home regimen. Of note, Mr. Pérez had a brief hospitalization here between 07/21 - 07/22, as well as a 5 day hospital stay that ended 08/02/2018. As per review of records it does not appear that he was on chemical DVT prophylaxis at that time. May presume PE to be secondary to a provoked DVT. Also with evidence of infiltrate on CT and Bronchitis, but without fever, although with leukocytosis previously - was started on Levaquin as secondary coverage for potential HCAP, with resolved leukocytosis and improved cough. Currently day #3 of antibiotic therapy for a planned 7 day course. Patient's SSRI will be held during this. (2) Acute pneumonitis: Reported continued cough along with brown sputum production, with improvement on antibiotic therapy. No fever but with development of leukocytosis which may well be reactive. However, given recent hospitalization and [facility] residence favored a brief course of antibiotics. Day #3 of Levofloxacin today. (3) TBI (traumatic brain injury): Patient is at his neurological baseline. Has a history of seizure activity post TBI, maintained chronically on Lamictal. PT/OT consulted while in the hospital. 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 Continue antiplatelet therapy with Clopidogrel. Also on high potency statin therapy. (5) CAD (coronary artery disease): Continue statin, Clopidogrel, and isordil. Not on BB as per review of home meds. (6) COPD (chronic obstructive pulmonary disease): Appears Quiescent. Noted. (7) Left shoulder pain: Appears to be musculoskeletal with some features of radiculopathy. The muscles of the suprascapular area of his neck and shoulder are very tender to palpation and reproducible. X-ray of his neck, shoulder, and chest were reviewed with radiology, and show extensive degenerative changes. He may need an MRI of his cervical spine in the future to evaluate for some spinal stenosis or narrowing of the neuroforaminal C-spine. Also with component of positional dysfunction, as patient favors his left side following his CVA, and lays on his left shoulder and neck. Also with extensive PT yesterday all likely contributing to symptoms. Recommend pain control, positional changes, and continued activity modification, with reevaluation as needed. EKG was performed and without any noted acute ischemic changes. He also denied any shortness of breath or chest pain with this. (8) Disposition Stable for discharge back to the [facility]. Home Meds and New Rx's Prescriptions: New levofloxacin 750 mg tablet 750 mg PO DAILY Qty: 6 RF: 0 apixaban [Eliquis] 5 mg Tablet 5 mg PO BID Qty: 70 RF: 0 levofloxacin 750 mg tablet 750 mg PO Q24H 5 Days Qty: 5 RF: 0 tramadol 50 mg tablet 50 mg PO QID 5 Days Qty: 20 RF: 0 Continue triamcinolone acetonide 0.1 % cream 1 applic TP BID RF: 0 acetaminophen [Acetaminophen Extra Strength] 500 MG tablet 1,000 mg PO PRN PRNRF: 0 syringe with cannula,disposabl [BD Blunt Plastic Cannula] 1 EACH syringe 1 ea Miscellaneous q4wk Qty: 4 RF: 4 sucralfate [Carafate] 1 GM tablet 1 g PO QID Qty: 60 RF: 0 fluticasone [Flovent HFA] 12 GM HFA aerosol inhaler 110 mcg Inhalation BID Qty: 1 RF: 11 trazodone 50 mg Tablet 100 mg PO HS RF: 0 atorvastatin [Lipitor] 40 mg Tablet 80 mg PO QPM Qty: 30 RF: 0 cyanocobalamin (vitamin B-12) 1,000 mcg/mL Solution 1,000 mcg IM Q14D Qty: 0 RF: 0 gabapentin [Neurontin] 600 mg Tablet 600 mg PO TID Qty: 0 RF: 0 magnesium oxide 400 mg (241.3 mg magnesium) Tablet 400 mg PO DAILY Qty: 0 RF: 0 nitroglycerin [Nitrostat] 0.4 mg Tablet, Sublingual 0.4 mg Sublingual PRN PRN (Reason: chest pain) Qty: 1 RF: 0 isosorbide dinitrate 20 mg tablet 20 mg PO BID RF: 0 citalopram 20 mg Tablet 40 mg PO DAILY Qty: 0 RF: 0 clopidogrel [Plavix] 75 mg Tablet 75 mg PO DAILY Qty: 0 RF: 0 fentanyl [Duragesic] 50 mcg/hr Patch 72 Hour 50 mcg Transdermal Q72H Qty: 5 RF: 0 pantoprazole 40 mg Tablet,Delayed Release (Dr/Ec) 40 mg PO DAILY@0730 Qty: 0 RF: 0 lamotrigine [Lamictal] 100 mg Tablet 100 mg PO BID Qty: 0 RF: 0 Discharge Instructions Instructions: Pulmonary Embolism (DC), Pulmonary Embolism (GEN) Additional Instructions: follow up with your primary care provider within 1 week for follow up if you have worsening shortness of breath, or severe weakness return to the emergency department Activity:: No strenuous activity Equipment/Supplies:: No Equipment Needed Diet:: Heart Healthy Discharge Orders Discharge Orders: Discharge Order (Routine); Ordered 08/15/18 Ordered By: Jeff Munoz Discharge Data Discharge Date/Time-TO BE ENTERED AT DEPARTURE: 08/15/18 11:25 Exam Narrative Exam Narrative: General: Patient appears comfortable, AAOX3, NAD Neck: Supple CV: Regular, nontachycardic, S1S2, No rubs, murmurs, or gallops. Pulmonary: CTAB without crackles, wheezing, or rhonchi Abdomen: + Bowel Sounds, soft, nontender, nondistended Vascular: No lower extremity edema Musculoskeletal: Pain on palpation of left neck, shoulder, and subscapular region. Psych: Normal mood and affect. DS: Data Vitals/I&O Vitals and I&O: Vital Signs Temperature 36.5 C 08/15/18 08:30 Temperature Source Tympanic 08/15/18 08:30 Pulse 59 L 08/15/18 08:30 Pulse Rhythm Regular 08/15/18 07:40 Respiratory Rate 16 08/15/18 08:30 Respiratory Effort 08/15/18 07:40 Respiratory Depth Normal 08/15/18 07:40 Respiratory Pattern Normal 08/15/18 07:40 Blood Pressure 108/67 08/15/18 08:30 Pulse Oximetry 94 L 08/15/18 08:30 Oxygen Delivery Method Room Air 08/14/18 15:39 Oxygen Flow Rate 0 08/14/18 15:39 Pain Level 9 08/15/18 05:19 Comment 08/15/18 00:21 Intake & Output 08/14/18 08/14/18 08/15/18 11:59 23:59 11:59 Intake Total 1893.75 / 1893.75 980 / 980 500 / 500 Output Total 1450 / 1450 1550 / 1550 500 / 500 Balance 443.75 / 443.75 -570 / -570 0 / 0 Weight 64 kg Intake: IV 1023.75 / 1023.75 Oral 870 / 870 980 / 980 500 / 500 Output: Urine 1450 / 1450 1550 / 1550 500 / 500 Other: Urine Color Yellow Yellow Yellow Urine Appearance Clear Clear Clear Urine Odor Normal Normal Stool Size Large Stool Characteristics Soft Formed Voiding Methods Urinal Urinal Completed studies during hospitalization [Text1]: Exam(s) a RAD:XR chest 2V PA & lateral SYMPTOM/DIAGNOSIS: LT SIDED CHEST PAIN AP AND LATERAL CHEST: Comparison is made with 07/29/18. The heart size is normal. An electronic device is positioned over the left upper chest. The lungs are suboptimally inflated but appear clear. No infiltrate of effusion is seen. IMPRESSION: Limited exam due to suboptimal pulmonary inflation. No acute abnormality is identified. Exam(s) a US:US extremity venous BI SYMPTOM/DIAGNOSIS: PE BILATERAL LOWER EXTREMITY ULTRASOUND: A small Alaniz's cyst is seen in the right popliteal fossa measuring 3.6 by 3 by 1.1 cm. The femoral and popliteal veins as well as calf veins are freely compressible bilaterally. No thrombus is visible. The doppler venous wave form augments normally. The saphenous veins also appear free of thrombus. IMPRESSION: Small right sided Alaniz's cyst. No evidence of DVT. Exam(s) a CT:CT thorax CTA SYMPTOM/DIAGNOSIS: WIDENED MEDIASTINUM ON CT, ? VASCULAR ABNORMALITY PE CHEST CT: CT angiography was performed with multi slice acquisition and multi planar and 3D reconstruction. Comparison is made with 01/29/18. There is an embolus in a peripheral branch vessel to the anterior right lower lobe. No additional emboli are seen. There is enlargement of the main pulmonary artery and left and right main pulmonary arteries consistent with pulmonary hypertension. The aorta is normal in diameter. There is no significant aortic calcification or evidence of dissection. There is left ventricular and left atrial enlargement. The findings appear similar to the previous exam. No pneumothorax, pleural or pericardial effusion is seen. There are mild ground glass opacities in the right upper lobe seen centrally as well as posteriorly. The findings could be infectious or inflammatory. The liver, gallbladder, spleen, pancreas, adrenals and visualized portions of the kidneys are unremarkable. There is a mild deformity of the right fourth rib, likely congenital. Degenerative changes are seen in the spine. There is mixing of contrast in the superior vena cava. A clot cannot be excluded. There is also mixing of contrast at the junction of the right internal jugular. The patient was injected via the right arm. There are some collaterals visualized around the right shoulder. There is a stable tiny nodule in the right middle lobe peripherally. IMPRESSION: Pulmonary embolism is demonstrated in a branch vessel to the anterior right lower lobe. Mild ground glass opacities in the right upper lobe could be secondary to infectious or inflammatory causes. Contrast mixing in the superior vena cava. There are some collaterals. Superior vena cava thrombus cannot be excluded. Exam(s) a US:US echocardiogram *[facility]* *[facility]* [address] [place] [address] Date of study: 08/12/2018 Transthoracic Echocardiography M-mode, complete 2D, complete spectral Doppler, and color Doppler *STUDY CONCLUSIONS* Summary: 1. Left ventricle: The cavity size was normal. Wall thickness was normal. Systolic function was at the lower limits of normal. The estimated ejection fraction was 50-55%. Mild hypokinesis of the inferolateral and inferior myocardium. 2. Aortic valve: There was moderate regurgitation. 3. Aortic root: The aortic root was at upper normal limits. 4. 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 There was mild to moderate regurgitation. 5. Left atrium: The atrium was mildly dilated. 6. Right ventricle: The cavity size was normal. Wall thickness was normal. Systolic function was normal. 7. Tricuspid valve: There was mild-moderate regurgitation. 8. Pulmonary arteries: Pulmonary systolic pressure was mildly increased. PA peak pressure: 43mm Hg (S). Labs on day of discharge: Labs from last 24 hours 08/15/18 08/15/18 06:10 06:10 WBC 6.29 RBC 4.01 L Hgb 12.2 L Hct 37.4 L MCV 93.3 MCH 30.4 MCHC 32.6 RDW 14.3 H Plt Count 123 L MPV 10.0 Immature Gran % 0.5 Neutrophils % 52.0 Lymphocytes % 30.5 Monocytes % 10.0 Eosinophils % 6.7 Basophils % 0.3 Absolute Neutrophils 3.27 Absolute Lymphocytes 1.92 Absolute Monocytes 0.63 Absolute Eosinophils 0.42 Absolute Basophils 0.02 Sodium 142 Potassium 4.0 Chloride 106 Carbon Dioxide 27.2 Anion Gap 8.8 BUN 22 H Creatinine 1.01 Estimated GFR/1.73 m2 >= 60.00 Glucose 98 Calcium 8.3 L 08/14/18 20:15 Sputum Sputum Culture - Pending Preliminary micro results at discharge 08/14/18 20:15 Sputum Culture - Pending Sputum
--- NOTE | 2018-08-15 10:47 | CMDISCH_ITS ---
- If Service Date Differs Date of service: 08/15/18 Time of Service: 10:39 LACE Index Scoring Tool - Questions: Length of Stay (in days): 3 Acuity (Admit via E.D.?): Yes Comorbidities: Previous M.I., Chronic Pulmonary Disease E.D. Visits: 8 - Answers: Total Score: 13 Risk of Readmission: High Risk Care Management Discharge Reason for Hospitalization: Pulmonary embolism. Discharge Plan: Miguel will discharge back to the [facility] when medically ready per MD. Anticipate patient will discharge with no new services and follow up with medical care at the [facility]. Miguel will transport via the [facility] at 1300. Patient/Family Education Needs: Discharge education, any limitations, and follow up plan of care. Ask Me Three discussion. Services Needed at Discharge: Senior Care Facility
--- NOTE | 2018-08-15 11:31 | PT.INTREAT ---
Date of service: 08/15/18 Time of Service: 11:31 PT Notes Inpatient Physical Therapy Treatment Note Date: 08/15/18 PRECAUTIONS: Fall SUBJECTIVE: Miguel reports that he is having significant pain in his L UE with movement. He feels that he may have over-exercised it yesterday. He reports that he has discussed this pain with nursing and the doctor today. OBJECTIVE: PAIN: Patient c/o L UE pain with all movement, and pain in L LE with ther ex BED MOBILITY/TRANSFERS: Refused due to L UE pain THEREX: Patient completed a LE strengthening and stabilization program in a supine position, as per flow sheet. Patient required assist with all L LE exercises, for exercise completion. ASSESSMENT: Patient refused OOB this morning due to pain. He was able to tolerate a progressed LE ther ex program, requiring some assist for L LE exercise completion. PLAN: As per primary PT TREATMENT CODE/TIME: 23 minutes; TPx2
--- NOTE | 2018-08-15 11:38 | PT.INDS ---
Date of service: 08/15/18 Time of Service: 11:38 PT Notes Inpatient Physical Therapy Discharge Summary Date: 08/15/18 Dates of Service: 08/13/18-08/15/18 SUBJECTIVE: NT OBJECTIVE: 08/13/18-08/15/18 BED MOBILITY/TRANSFERS: Supine-sit independent Sit-supine supervision Sit-stand SBA Stand-sit SBA GAIT: CGA with FWW 200ft with AFO and shoes BALANCE: Static sitting: normal Dynamic sitting: normal Static standing: fair Dynamic standing: fair ASSESSMENT: Pt was seen for 2 PT visits. Progressed from CGA standing transfers to SBA, from CGA gait with FWW 100ft to CGA gait with FWW 200ft. Pt is being transferred back to [facility] today, recommend continued rehab. GOALS Goals X1 week 1. Supine-Sit: independent 2. Sit-Supine: independent 3. Sit-Stand: independent 4. Stand-Sit: independent 5. Bed-Chair : supervision with WW 6. Chair-Bed : Supervision with wheeled walker 7. Gait contact guard with wheeled walker and left AFO times 300 feet Pt did not meet goals due to discharge, recommend continued therapy at discharge DISCHARGE RECOMMENDATIONS: Return to senior living facility [facility], with continued PT and OT interventions. G Codes in the area mobility of walking and moving around: projected status [id number], discharge status [id number] Laury Feliz PT
[2018-08-15 12:34] VITALS: PULSE 68
== END 2018-08-15 13:05 | disposition skilled nursing facility (03) | DRG 175 ==
LOC: ER 19:30 → MS 22:08
PROVIDERS: Internal Medicine; Student in an Organized Health Care Education/Training Program; Admitting Provider Internal Medicine; Emergency Provider Emergency Medicine; PCP Nurse Practitioner; Visit Provider Internal Medicine
DX: I26.99 Other pulmonary embolism without acute cor pulmonale (principal); J18.9 Pneumonia, unspecified organism; T45.516A Underdosing of anticoagulants, initial encounter; Y63.6 Underdosing and nonadministration of necessary drug, medicament or biological substance; I27.20 Pulmonary hypertension, unspecified; M25.512 Pain in left shoulder; M54.2 Cervicalgia; Z87.820 Personal history of traumatic brain injury; Z86.73 Personal history of transient ischemic attack (TIA), and cerebral infarction without residual deficits; I25.10 Atherosclerotic heart disease of native coronary artery without angina pectoris; J44.9 Chronic obstructive pulmonary disease, unspecified; Z23 Encounter for immunization; R25.1 Tremor, unspecified
CPT/HCPCS: 36415; 71275; 80048; 80053; 87081; 93005; 94640; 96365; 96375; 96376; 97110; 97163; 97530; 99222; 99232; 99233; 99239; 99285; 99357; 71045; 71046; 72050; 73030; 83735; 83880; 84484; 85025; 85610; 85730; 87070; 87205; 93010; 93306; 93970; 99219; 99356; G0378; J0696; J1885; J2930; J3420; J3490; J7620

== ENCOUNTER 2018-08-24 19:19 | Emergency (ER) | payer MEDICARE, MEDICAID, SELFPAY ==
[2018-08-24] VITALS (32 sets, daily range): BP systolic 99–143; BP diastolic 50–101; PULSE 53–74; RESP 7–34; TEMP 37.2; O2SAT 87–98
--- NOTE | 2018-08-24 20:15 | DI.CT_ITS ---
SYMPTOMS/DIAGNOSIS: ALTERED MENTAL STATUS; LEFT PELVIC/GROIN PAIN, FEVER CRANIAL CT: Noncontrast cranial CT was performed. Note is made of mucoperiosteal thickening of the visualized ethmoid and right maxillary sinuses, consistent with mild chronic sinus inflammation. The orbital and temporal bone structures appear intact except for hypoplastic right mastoid air cells. Ventricular system is normal in appearance. No evidence of intracranial hemorrhage, mass effect or midline shift. CONCLUSION: No evidence of acute intracranial process. ABDOMINAL AND PELVIC CT: CT examination of the abdomen and pelvis was performed with intravenous infusion of 100 cc of Omnipaque 350. Images obtained through the lung bases are unremarkable. The liver and spleen are unremarkable in appearance. Low attenuation subcentimeter foci noted in anterior aspect of right hepatic lobe, likely to represent benign process. The pancreas is unremarkable in appearance. Gallbladder is contracted. No biliary dilatation. Adrenals, kidneys and ureters appear normal. No evidence of hydronephrosis, nephrolithiasis or renal mass. Abdominal aorta is of normal diameter and no major vascular abnormality is seen. No significant abdominal wall hernia is seen. Appendix appears normal. No evidence of diverticulitis or bowel obstruction. No abdominal or pelvic adenopathy. Note is made of apparent wall thickening of the urinary bladder, which is underdistended. CONCLUSION: Question urinary bladder wall thickening; findings could be associated with cystitis. Please correlate clinically.
--- NOTE | 2018-08-24 20:15 | DI.RAD_ITS ---
SYMPTOMS/DIAGNOSIS: ALTERED MENTAL STATUS PORTABLE AP CHEST: The heart is not enlarged. The lungs are grossly clear and well expanded. CONCLUSION: No evidence of acute disease.
--- NOTE | 2018-08-24 20:20 | W.ED.GENAD ---
Discharge Plan Disposition Patient Disposition: HOME Condition: Good Discharge Details Chief Complaint: AMS/LOC Clinical Impression: Acute hip pain Primary Care Provider: Aissatou Briggs ED Provider: Hany Auguste Home Meds and New Rx's Prescriptions: No Action acetaminophen [Acetaminophen Extra Strength] 500 MG tablet 1,000 mg PO PRN PRNRF: 0 syringe with cannula,disposabl [BD Blunt Plastic Cannula] 1 EACH syringe 1 ea Miscellaneous q4wk Qty: 4 RF: 4 sucralfate [Carafate] 1 GM tablet 1 g PO QID Qty: 60 RF: 0 fluticasone [Flovent HFA] 12 GM HFA aerosol inhaler 110 mcg Inhalation BID Qty: 1 RF: 11 trazodone 50 mg Tablet 100 mg PO HS RF: 0 atorvastatin [Lipitor] 40 mg Tablet 80 mg PO QPM Qty: 30 RF: 0 cyanocobalamin (vitamin B-12) 1,000 mcg/mL Solution 1,000 mcg IM Q14D Qty: 0 RF: 0 gabapentin [Neurontin] 600 mg Tablet 600 mg PO TID Qty: 0 RF: 0 magnesium oxide 400 mg (241.3 mg magnesium) Tablet 400 mg PO DAILY Qty: 0 RF: 0 nitroglycerin [Nitrostat] 0.4 mg Tablet, Sublingual 0.4 mg Sublingual PRN PRN (Reason: chest pain) Qty: 1 RF: 0 isosorbide dinitrate 20 mg tablet 20 mg PO BID RF: 0 apixaban [Eliquis] 5 mg Tablet 5 mg PO BID Qty: 70 RF: 0 citalopram 20 mg Tablet 40 mg PO DAILY Qty: 0 RF: 0 clopidogrel [Plavix] 75 mg Tablet 75 mg PO DAILY Qty: 0 RF: 0 fentanyl [Duragesic] 50 mcg/hr Patch 72 Hour 50 mcg Transdermal Q72H Qty: 5 RF: 0 pantoprazole 40 mg Tablet,Delayed Release (Dr/Ec) 40 mg PO DAILY@0730 Qty: 0 RF: 0 lamotrigine [Lamictal] 100 mg Tablet 100 mg PO BID Qty: 0 RF: 0 multivitamin with minerals Tablet 1 tab PO DAILY RF: 0 ergocalciferol (vitamin D2) [Vitamin D2] 50,000 unit Capsule 50,000 unit PO QWEEK RF: 0 Discharge Instructions Instructions: Hip Pain (ED) Additional Instructions: Please take Tylenol as needed for control your pain. If you notice any worsening of your symptoms, or any new symptoms such as vomiting, diarrhea, fever, chills, shortness of breath, chest pain, numbness, weakness, or fainting , please return immediately to the emergency department for reevaluation. Please follow up with your primary care provider as soon as possible for reassessment and reevaluation. As always, it was a pleasure participating in your medical care today. Referrals: Aissatou Briggs NP [Primary Care Provider] - Discharge Data Discharge Date/Time-TO BE ENTERED AT DEPARTURE: 08/25/18 12:44 Medical Decision Making <Renzo Yen MD - Last Filed: 09/01/18 20:29> Patient with low grade fever here and relatively normal mental status but report of fever, hallucinations and altered at [facility]. Has pain in left back/hip/groin/testicle but no erythema, induration, crepitus, fluctuance anywhere. Testicle is small on left. No scrotal erythema/perineal tenderness/erythema. Abdomen seems distended but is non-tender. Will proceed with head CT, chest x-ray, abdomen/pelvis CT with images of thigh. Check labs and urinalysis. Start fluids though he is not tachycardic or hypotensive here. Patient laboratory studies are not overly worrisome. His white count is normal at 6. His chemistries are normal. His lactic acid is normal. His C-reactive protein is a little elevated at 2.46 but has been elevated in the 2 range previously. Sed rate is 28. Urine is negative for infection. There is a little bit of blood present. Patient's chest x-ray is fine. Patient CT scan of the abdomen and pelvis extending down into the thigh is unremarkable. Patient continues to complain of significant left hip and groin pain. He has not been febrile here and he does not seem to be altered but there is report of both at the alf. I did speak to Dr. Wilcox and asked him to review the CT scan specifically looking at the left hip. Per Dr. Wilcox there might be a small amount of fluid around the left hip but there is nothing to suggest definite septic joint. After further discussion, have decided to hold patient in ED for further observation as well as MRI of the pelvis in the morning. There are no beds in the hospital but there has been no fever or altered mental status here. If MRI is negative will likely be able to be discharged back to the [facility]. Medications put in for morning and MRI ordered. Patient stable and will be turned over to oncoming day physician. Medical Records Medical records reviewed: Yes I reviewed the patient's medical records. Lab Data Lab results reviewed: Yes I reviewed the patient's lab results. <Hany Auguste, DO - Last Filed: 08/25/18 12:24> The case is signed out to be my my colleague Dr. Yen. We are pending MRI imaging at that time. We did get an ultrasound of the patient's testicles, and he demonstrates no acute findings. Small postsurgical process, but nothing acute. No evidence of torsion. MRI was ordered, and it does show a small amount of fluid collection, but no other significant abnormalities. Laboratory workup demonstrates no leukocytosis, minimally elevated ESR of 28, and a minimally elevated CRP at 2.46. No bandemia. Remainder of his laboratory workup is relatively benign. We did discuss the case with Dr. Wilcox, and at this point he feels that the fluid is most likely just idiopathic. Went back and reassessed the patient and he is actively asking to be discharged back to his facility. He states that he feels fine, is ready to go back. The patient signs and symptoms do not correlate with septicemia or signs of a toxic septic hip. He might have some mild transient synovitis, but this is also less likely. Patient will be discharged back to his facility with instructions for Tylenol use. We discussed red flags which to return as well as potential outpatient follow-up for tapping if the patient's symptoms persist or worsen. I have extensively reviewed the treatment plan and discharge instructions with the patient. I have addressed all patient concerns at this time. The patient was made aware of what symptoms to monitor for that would warrant a return to the emergency department. Discussed the plan with the patient, they demonstrate verbal understanding and agreement with our assessment and plan at this time. CONCLUSION: Unremarkable right testis. Postsurgical left scrotum, no interval examinations for comparison since reported left orchiectomy, which is remote. I am uncertain whether the findings in the left scrotum may represent stable postsurgical appearance versus interval development of a mass. Clinical correlation requested and correlation with any old scrotal ultrasound and/or surgical note recommended. CONCLUSION: Essentially negative hip MRI. Slightly asymmetrical quantity of fluid in hip joints, left greater than right. HPI <Renzo Yen MD - Last Filed: 09/01/18 20:29> General Mode of arrival: EMS. Date/Time Provider Initiated Documentation: 08/24/18 20:14. Limitations to Documentation: altered mental status. Information obtained by: patient, RN/MD (from [facility]), RN notes reviewed and old records reviewed. HPI Narrative: Patient is resident of [facility] at this time s/p recent stroke as well as PE. He is sent in for evaluation of altered mental status, fever and left groin pain. Patient is awake and alert here, a little slow to respond but oriented as well. He complains of pain in the left low back, hip, groin and thigh. He denies any injury. He denies difficulty urinating. He denies abdominal pain, vomiting or diarrhea. He has no chest pain or shortness of breath. He has a mild headache but not bad. He reports that the pain in the left groin area started yesterday and has got worse. He was unable to do PT today. His stroke affected his left side with the leg being more involved than the arm. Related Data Home Medications Medication Instructions Recorded Confirmed acetaminophen [Acetaminophen Extra 1,000 mg PO PRN PRN tab-cap 11/13/16 08/24/18 Strength] syringe with cannula,disposabl [BD #4 syringe 01/17/18 07/29/18 Blunt Plastic Cannula] sucralfate [Carafate] 1 g PO QID #60 tab-cap 05/17/18 08/24/18 fluticasone [Flovent HFA] 110 mcg INHALATION BID #1 inhaler 06/23/18 08/24/18 trazodone 100 mg PO HS 07/21/18 08/24/18 atorvastatin [Lipitor] 80 mg PO QPM #30 tab 07/22/18 08/24/18 cyanocobalamin (vitamin B-12) 1,000 mcg IM Q14D #0 ml 07/22/18 08/24/18 gabapentin [Neurontin] 600 mg PO TID #0 tab 07/22/18 08/24/18 magnesium oxide 400 mg PO DAILY #0 tab 07/22/18 08/24/18 nitroglycerin [Nitrostat] 0.4 mg SUBLINGUAL PRN PRN #1 tab 07/22/18 08/24/18 clopidogrel [Plavix] 75 mg PO DAILY #0 tab 08/02/18 08/24/18 fentanyl [Duragesic] 50 mcg TRANSDERMAL Q72H #5 each 08/02/18 08/24/18 lamotrigine [Lamictal] 100 mg PO BID #0 tab 08/02/18 08/24/18 pantoprazole 40 mg PO DAILY@0730 #0 tab 08/02/18 08/24/18 isosorbide dinitrate 20 mg PO BID 08/11/18 08/24/18 apixaban [Eliquis] 5 mg PO BID #70 tab 08/15/18 08/24/18 citalopram 40 mg PO DAILY #0 tab 08/15/18 08/24/18 ergocalciferol (vitamin D2) 50,000 unit PO QWEEK 08/24/18 08/24/18 [Vitamin D2] multivitamin with minerals 1 tab PO DAILY 08/24/18 08/24/18 Previous Rx's Medication Instructions Recorded syringe with cannula,disposabl [BD #4 syringe 01/17/18 Blunt Plastic Cannula] sucralfate [Carafate] 1 g PO QID #60 tab-cap 05/17/18 fluticasone [Flovent HFA] 110 mcg INHALATION BID #1 inhaler 06/23/18 atorvastatin [Lipitor] 80 mg PO QPM #30 tab 07/22/18 cyanocobalamin (vitamin B-12) 1,000 mcg IM Q14D #0 ml 07/22/18 gabapentin [Neurontin] 600 mg PO TID #0 tab 07/22/18 magnesium oxide 400 mg PO DAILY #0 tab 07/22/18 nitroglycerin [Nitrostat] 0.4 mg SUBLINGUAL PRN PRN #1 tab 07/22/18 clopidogrel [Plavix] 75 mg PO DAILY #0 tab 08/02/18 fentanyl [Duragesic] 50 mcg TRANSDERMAL Q72H #5 each 08/02/18 lamotrigine [Lamictal] 100 mg PO BID #0 tab 08/02/18 pantoprazole 40 mg PO DAILY@0730 #0 tab 08/02/18 apixaban [Eliquis] 5 mg PO BID #70 tab 08/15/18 citalopram 40 mg PO DAILY #0 tab 08/15/18 Allergies Allergy/AdvReac Type Severity Reaction Status Date / Time aripiprazole Allergy Mild SKIN RASH Verified 08/24/18 19:27 codeine Allergy Unknown Nausea, Verified 08/24/18 19:27 vomiting, rash aspirin AdvReac Unknown Skin Rash Verified 08/24/18 19:27 General Stated Complaint: AMS/LOC NELLI: 3 Review of Systems <Renzo Yen MD - Last Filed: 09/01/18 20:29> Constitutional Denies chills, Reports fever(s), Reports headache(s), Denies lethargy and Denies weakness Eyes Denies change in vision, Denies eye discharge and Denies eye pain ENT Denies vertigo, Denies dizziness, Denies otalgia, Reports headache(s), Denies nasal congestion, Denies sinus pain and Denies sore throat Cardiovascular Denies chest pain, Denies diaphoresis, Denies syncope, Denies edema, Denies lightheadedness and Denies dyspnea Respiratory Denies cough and Denies dyspnea Gastrointestinal Denies abdominal pain, Denies diarrhea, Denies nausea and Denies vomiting Genitourinary Denies hematuria, Denies difficulty urinating, Denies flank pain, Denies scrotal swelling, Reports testicular pain, Denies urinary frequency and Denies urinary urgency Musculoskeletal Reports back pain, Denies myalgias and Reports arthralgias Integumentary/Breasts Denies erythema, Denies rash and Reports wounds Neurologic Denies vertigo, Denies dizziness, Denies syncope, Reports headache(s), Reports focal weakness and Denies weakness Exam <Renzo Yen MD - Last Filed: 09/01/18 20:29> Const General: no acute distress and not ill appearing Orientation: alert and oriented x3 HENMT Head: normocephalic and atraumatic Neck Neck: trachea midline and supple Resp Effort & Inspection: normal respiratory effort Auscultation: clear to auscultation bilaterally Cardio Rate: regular rate Rhythm: regular rhythm Heart Sounds: S1 normal and S2 normal Pulses: normal peripheral pulses GI Inspection: distended Palpation: firm, no guarding and nontender Male General Exam: Yes normal external exam, No erythema, No inguinal lymphadenopathy, No perineal induration and Yes tenderness (left groin down into thigh; not in perineum) Penis: normal penis Scrotum: scrotum normal and not erythematous Testes: no testicular swelling, testicular tenderness on the left and other (left testicle much smaller than right, tender) Back/Spine/Pelvis Back: no CVA tenderness Thoracic/Lumbar Spine: thoracic and lumbar spine normal to inspection, No thoracic spinal tenderness, No lumbar spinal tenderness and other (tender in the left lumbar region) Skin General skin exam: no ecchymosis, no erythema, excoriation(s), no fluctuance and no induration Rashes: no rashes Neuro General: alert, oriented x3, CN's II-XI intact bilaterally and other (residual left sided weakness leg worse than arm. ) Extrem Left lower extremity: hip/thigh Details: normal to inspection, tenderness (left medial upper thigh) and abnormal ROM Details: pain with passive ROM Details: with internal rotation and with external rotation; no edema Course <Renzo Yen MD - Last Filed: 09/01/18 20:29> Vital Signs Temperature 99.0 F 08/24/18 19:23 Pulse 69 08/24/18 19:23 Respiratory Rate 18 08/24/18 19:23 Blood Pressure 133/93 H 08/24/18 19:23 Pulse Oximetry 96 08/24/18 19:23 Temperature 99.0 F 08/24/18 19:23 Temperature Source Skin 08/24/18 19:23 Pulse 69 08/24/18 19:23 Respiratory Rate 18 08/24/18 19:23 Respiratory Effort Non-Labored 08/24/18 19:25 Blood Pressure 133/93 H 08/24/18 19:23 Blood Pressure Position Supine 08/24/18 19:23 Pulse Oximetry 96 08/24/18 19:23 Oxygen Delivery Method Room Air 08/24/18 19:23 Oxygen Flow Rate 0 08/24/18 19:23
--- NOTE | 2018-08-24 20:26 | ED.GENADUL_ITS ---
Discharge Plan Disposition Patient Disposition: HOME Condition: Good Discharge Details Chief Complaint: AMS/LOC Clinical Impression: Acute hip pain Primary Care Provider: Aissatou Briggs ED Provider: Hany Auguste Home Meds and New Rx's Prescriptions: No Action acetaminophen [Acetaminophen Extra Strength] 500 MG tablet 1,000 mg PO PRN PRNRF: 0 syringe with cannula,disposabl [BD Blunt Plastic Cannula] 1 EACH syringe 1 ea Miscellaneous q4wk Qty: 4 RF: 4 sucralfate [Carafate] 1 GM tablet 1 g PO QID Qty: 60 RF: 0 fluticasone [Flovent HFA] 12 GM HFA aerosol inhaler 110 mcg Inhalation BID Qty: 1 RF: 11 trazodone 50 mg Tablet 100 mg PO HS RF: 0 atorvastatin [Lipitor] 40 mg Tablet 80 mg PO QPM Qty: 30 RF: 0 cyanocobalamin (vitamin B-12) 1,000 mcg/mL Solution 1,000 mcg IM Q14D Qty: 0 RF: 0 gabapentin [Neurontin] 600 mg Tablet 600 mg PO TID Qty: 0 RF: 0 magnesium oxide 400 mg (241.3 mg magnesium) Tablet 400 mg PO DAILY Qty: 0 RF: 0 nitroglycerin [Nitrostat] 0.4 mg Tablet, Sublingual 0.4 mg Sublingual PRN PRN (Reason: chest pain) Qty: 1 RF: 0 isosorbide dinitrate 20 mg tablet 20 mg PO BID RF: 0 apixaban [Eliquis] 5 mg Tablet 5 mg PO BID Qty: 70 RF: 0 citalopram 20 mg Tablet 40 mg PO DAILY Qty: 0 RF: 0 clopidogrel [Plavix] 75 mg Tablet 75 mg PO DAILY Qty: 0 RF: 0 fentanyl [Duragesic] 50 mcg/hr Patch 72 Hour 50 mcg Transdermal Q72H Qty: 5 RF: 0 pantoprazole 40 mg Tablet,Delayed Release (Dr/Ec) 40 mg PO DAILY@0730 Qty: 0 RF: 0 lamotrigine [Lamictal] 100 mg Tablet 100 mg PO BID Qty: 0 RF: 0 multivitamin with minerals Tablet 1 tab PO DAILY RF: 0 ergocalciferol (vitamin D2) [Vitamin D2] 50,000 unit Capsule 50,000 unit PO QWEEK RF: 0 Discharge Instructions Instructions: Hip Pain (ED) Additional Instructions: Please take Tylenol as needed for control your pain. If you notice any worsening of your symptoms, or any new symptoms such as vomiting, diarrhea, fever, chills, shortness of breath, chest pain, numbness, weakness, or fainting , please return immediately to the emergency department for reevaluation. Please follow up with your primary care provider as soon as possible for reassessment and reevaluation. As always, it was a pleasure participating in your medical care today. Referrals: Aissatou Briggs NP [Primary Care Provider] - Discharge Data Discharge Date/Time-TO BE ENTERED AT DEPARTURE: 08/25/18 12:44 Medical Decision Making <Renzo Yen MD - Last Filed: 09/01/18 20:29> Patient with low grade fever here and relatively normal mental status but report of fever, hallucinations and altered at [facility]. Has pain in left back/hip/ groin/testicle but no erythema, induration, crepitus, fluctuance anywhere. Testicle is small on left. No scrotal erythema/perineal tenderness/erythema. Abdomen seems distended but is non-tender. Will proceed with head CT, chest x- ray, abdomen/pelvis CT with images of thigh. Check labs and urinalysis. Start fluids though he is not tachycardic or hypotensive here. Patient laboratory studies are not overly worrisome. His white count is normal at 6. His chemistries are normal. His lactic acid is normal. His C-reactive protein is a little elevated at 2.46 but has been elevated in the 2 range previously. Sed rate is 28. Urine is negative for infection. There is a little bit of blood present. Patient's chest x-ray is fine. Patient CT scan of the abdomen and pelvis extending down into the thigh is unremarkable. Patient continues to complain of significant left hip and groin pain. He has not been febrile here and he does not seem to be altered but there is report of both at the care home. I did speak to Dr. Wilcox and asked him to review the CT scan specifically looking at the left hip. Per Dr. Wilcox there might be a small amount of fluid around the left hip but there is nothing to suggest definite septic joint. After further discussion, have decided to hold patient in ED for further observation as well as MRI of the pelvis in the morning. There are no beds in the hospital but there has been no fever or altered mental status here. If MRI is negative will likely be able to be discharged back to the [facility]. Medications put in for morning and MRI ordered. Patient stable and will be turned over to oncoming day physician. Medical Records Medical records reviewed: Yes I reviewed the patient's medical records. Lab Data Lab results reviewed: Yes I reviewed the patient's lab results. <Hany Auguste, DO - Last Filed: 08/25/18 12:24> The case is signed out to be my my colleague Dr. Yen. We are pending MRI imaging at that time. We did get an ultrasound of the patient's testicles, and he demonstrates no acute findings. Small postsurgical process, but nothing acute. No evidence of torsion. MRI was ordered, and it does show a small amount of fluid collection, but no other significant abnormalities. Laboratory workup demonstrates no leukocytosis, minimally elevated ESR of 28, and a minimally elevated CRP at 2.46. No bandemia. Remainder of his laboratory workup is relatively benign. We did discuss the case with Dr. Wilcox, and at this point he feels that the fluid is most likely just idiopathic. Went back and reassessed the patient and he is actively asking to be discharged back to his facility. He states that he feels fine, is ready to go back. The patient signs and symptoms do not correlate with septicemia or signs of a toxic septic hip. He might have some mild transient synovitis, but this is also less likely. Patient will be discharged back to his facility with instructions for Tylenol use. We discussed red flags which to return as well as potential outpatient follow-up for tapping if the patient's symptoms persist or worsen. I have extensively reviewed the treatment plan and discharge instructions with the patient. I have addressed all patient concerns at this time. The patient was made aware of what symptoms to monitor for that would warrant a return to the emergency department. Discussed the plan with the patient, they demonstrate verbal understanding and agreement with our assessment and plan at this time. CONCLUSION: Unremarkable right testis. Postsurgical left scrotum, no interval examinations for comparison since reported left orchiectomy, which is remote. I am uncertain whether the findings in the left scrotum may represent stable postsurgical appearance versus interval development of a mass. Clinical correlation requested and correlation with any old scrotal ultrasound and/or surgical note recommended. CONCLUSION: Essentially negative hip MRI. Slightly asymmetrical quantity of fluid in hip joints, left greater than right. HPI <Renzo Yen MD - Last Filed: 09/01/18 20:29> General Mode of arrival: EMS . Date/Time Provider Initiated Documentation: 08/24/18 20:14 . Limitations to Documentation: altered mental status . Information obtained by: patient, RN/MD (from [facility]), RN notes reviewed and old records reviewed . HPI Narrative: Patient is resident of [facility] at this time s/p recent stroke as well as PE. He is sent in for evaluation of altered mental status, fever and left groin pain. Patient is awake and alert here, a little slow to respond but oriented as well. He complains of pain in the left low back, hip, groin and thigh. He denies any injury. He denies difficulty urinating. He denies abdominal pain, vomiting or diarrhea. He has no chest pain or shortness of breath. He has a mild headache but not bad. He reports that the pain in the left groin area started yesterday and has got worse. He was unable to do PT today. His stroke affected his left side with the leg being more involved than the arm. Related Data Home Medications Medication Instructions Recorded Confirmed acetaminophen [Acetaminophen Extra 1,000 mg PO PRN PRN tab-cap 11/13/16 Strength] syringe with cannula,disposabl [BD #4 syringe 01/17/18 07/29/18 Blunt Plastic Cannula] sucralfate [Carafate] 1 g PO QID #60 tab-cap 05/17/18 08/24/18 fluticasone [Flovent HFA] 110 mcg INHALATION BID #1 inhaler 06/23/18 08/24/18 trazodone 100 mg PO HS 07/21/18 08/24/18 atorvastatin [Lipitor] 80 mg PO QPM #30 tab 07/22/18 08/24/18 cyanocobalamin (vitamin B-12) 1,000 mcg IM Q14D #0 ml 07/22/18 08/24/18 gabapentin [Neurontin] 600 mg PO TID #0 tab 07/22/18 08/24/18 magnesium oxide 400 mg PO DAILY #0 tab 07/22/18 08/24/18 nitroglycerin [Nitrostat] 0.4 mg SUBLINGUAL PRN PRN #1 tab 07/22/18 08/24/18 clopidogrel [Plavix] 75 mg PO DAILY #0 tab 08/02/18 08/24/18 fentanyl [Duragesic] 50 mcg TRANSDERMAL Q72H #5 each 08/02/18 08/24/18 lamotrigine [Lamictal] 100 mg PO BID #0 tab 08/02/18 08/24/18 pantoprazole 40 mg PO DAILY@0730 #0 tab 08/02/18 08/24/18 isosorbide dinitrate 20 mg PO BID 08/11/18 08/24/18 apixaban [Eliquis] 5 mg PO BID #70 tab 08/15/18 08/24/18 citalopram 40 mg PO DAILY #0 tab 08/15/18 08/24/18 ergocalciferol (vitamin D2) 50,000 unit PO QWEEK 08/24/18 08/24/18 [Vitamin D2] multivitamin with minerals 1 tab PO DAILY 08/24/18 08/24/18 Previous Rx's Medication Instructions Recorded syringe with cannula,disposabl [BD #4 syringe 01/17/18 Blunt Plastic Cannula] sucralfate [Carafate] 1 g PO QID #60 tab-cap 05/17/18 fluticasone [Flovent HFA] 110 mcg INHALATION BID #1 inhaler 06/23/18 atorvastatin [Lipitor] 80 mg PO QPM #30 tab 07/22/18 cyanocobalamin (vitamin B-12) 1,000 mcg IM Q14D #0 ml 07/22/18 gabapentin [Neurontin] 600 mg PO TID #0 tab 07/22/18 magnesium oxide 400 mg PO DAILY #0 tab 07/22/18 nitroglycerin [Nitrostat] 0.4 mg SUBLINGUAL PRN PRN #1 tab 07/22/18 clopidogrel [Plavix] 75 mg PO DAILY #0 tab 08/02/18 fentanyl [Duragesic] 50 mcg TRANSDERMAL Q72H #5 each 08/02/18 lamotrigine [Lamictal] 100 mg PO BID #0 tab 08/02/18 pantoprazole 40 mg PO DAILY@0730 #0 tab 08/02/18 apixaban [Eliquis] 5 mg PO BID #70 tab 08/15/18 citalopram 40 mg PO DAILY #0 tab 08/15/18 Allergies Allergy/AdvReac Type Severity Reaction Status Date / Time aripiprazole Allergy Mild SKIN RASH Verified 08/24/18 19:27 codeine Allergy Unknown Nausea, Verified 08/24/18 19:27 vomiting, rash aspirin AdvReac Unknown Skin Rash Verified 08/24/18 19:27 General Stated Complaint: AMS/LOC NELLI: 3 Review of Systems <Renzo Yen MD - Last Filed: 09/01/18 20:29> Constitutional Denies chills, Reports fever(s), Reports headache(s), Denies lethargy and Denies weakness Eyes Denies change in vision, Denies eye discharge and Denies eye pain ENT Denies vertigo, Denies dizziness, Denies otalgia, Reports headache(s), Denies nasal congestion, Denies sinus pain and Denies sore throat Cardiovascular Denies chest pain, Denies diaphoresis, Denies syncope, Denies edema, Denies lightheadedness and Denies dyspnea Respiratory Denies cough and Denies dyspnea Gastrointestinal Denies abdominal pain, Denies diarrhea, Denies nausea and Denies vomiting Genitourinary Denies hematuria, Denies difficulty urinating, Denies flank pain, Denies scrotal swelling, Reports testicular pain, Denies urinary frequency and Denies urinary urgency Musculoskeletal Reports back pain, Denies myalgias and Reports arthralgias Integumentary/Breasts Denies erythema, Denies rash and Reports wounds Neurologic Denies vertigo, Denies dizziness, Denies syncope, Reports headache(s), Reports focal weakness and Denies weakness Exam <Renzo Yen MD - Last Filed: 09/01/18 20:29> Const General: no acute distress and not ill appearing Orientation: alert and oriented x3 HENMT Head: normocephalic and atraumatic Neck Neck: trachea midline and supple Resp Effort & Inspection: normal respiratory effort Auscultation: clear to auscultation bilaterally Cardio Rate: regular rate Rhythm: regular rhythm Heart Sounds: S1 normal and S2 normal Pulses: normal peripheral pulses GI Inspection: distended Palpation: firm, no guarding and nontender Male General Exam: Yes normal external exam, No erythema, No inguinal lymphadenopathy, No perineal induration and Yes tenderness (left groin down into thigh; not in perineum) Penis: normal penis Scrotum: scrotum normal and not erythematous Testes: no testicular swelling, testicular tenderness on the left and other ( left testicle much smaller than right, tender) Back/Spine/Pelvis Back: no CVA tenderness Thoracic/Lumbar Spine: thoracic and lumbar spine normal to inspection, No thoracic spinal tenderness, No lumbar spinal tenderness and other (tender in the left lumbar region) Skin General skin exam: no ecchymosis, no erythema, excoriation(s), no fluctuance and no induration Rashes: no rashes Neuro General: alert, oriented x3, CN's II-XI intact bilaterally and other (residual left sided weakness leg worse than arm. ) Extrem Left lower extremity: hip/thigh Details: normal to inspection, tenderness (left medial upper thigh) and abnormal ROM Details: pain with passive ROM Details: with internal rotation and with external rotation; no edema Course <Renzo Yen MD - Last Filed: 09/01/18 20:29> Vital Signs Temperature 99.0 F 08/24/18 19:23 Pulse 69 08/24/18 19:23 Respiratory Rate 18 08/24/18 19:23 Blood Pressure 133/93 H 08/24/18 19:23 Pulse Oximetry 96 08/24/18 19:23 Temperature 99.0 F 08/24/18 19:23 Temperature Source Skin 08/24/18 19:23 Pulse 69 08/24/18 19:23 Respiratory Rate 18 08/24/18 19:23 Respiratory Effort Non-Labored 08/24/18 19:25 Blood Pressure 133/93 H 08/24/18 19:23 Blood Pressure Position Supine 08/24/18 19:23 Pulse Oximetry 96 08/24/18 19:23 Oxygen Delivery Method Room Air 08/24/18 19:23 Oxygen Flow Rate 0 08/24/18 19:23
[2018-08-24 20:41] LABS: Lactate-non-spesis 1.4 mmol/L (0.6-1.4)
[2018-08-24] MEDS: Omnipaque 350 MG/ML 100 ML BTL IJ (20:53)
[2018-08-24 20:56] LABS: ALT 24 U/L (12-78); AST 17 U/L (15-37); Albumin 3.1 g/dL (3.4-5.0); Alkaline Phosphatase 163 U/L (46-116); Anion Gap 8.2 mmol/L (3-11); BUN 10 mg/dL (7-18); Bilirubin, Total 0.3 mg/dL (0.2-1.0); C-Reactive Protein 2.46 mg/dL (0.0-0.3); CO2 28.8 mmol/L (21.0-32.0); CREATININE 0.86 mg/dL (0.70-1.30); Calcium 8.6 mg/dL (8.5-10.1); Chloride 104 mmol/L (98-107); Glucose 123 mg/dL (70-100); Lipase 383 U/L (73-393); Sodium 141 mmol/L (136-145); Total Protein 5.5 g/dL (6.4-8.2)
[2018-08-24 20:58] LABS: Bilirubin Negative (Negative); Blood Trace-intact (Negative); Clarity Clear; Glucose Negative (Negative); Ketones Negative (Negative); Leukocyte Esterase Negative (Negative); Nitrite Negative (Negative); Specific Gravity 1.015 (1.005-1.025); Urobilinogen 0.2 EU/dL (Up TO 0.2)
[2018-08-24 21:03] LABS: Abs Immature Grans 0.01 k/cumm (0.0-0.09); Absolute Basophil Count 0.03 k/cumm (0.0-0.2); Absolute Eosinophil Count 0.33 k/cumm (0.0-0.7); Absolute Lymphocyte Count 1.56 k/cumm (1.2-3.4); Absolute Monocyte Count 0.67 k/cumm (0.11-0.7); Absolute Neutrophil Count 3.53 k/cumm (1.2-6.7); Basophils % 0.5; Eosinophils % 5.4; HCT 37.7 % (40.0-50.0); HGB 12.5 g/dL (13.5-17.5); Immature Grans % 0.2; Lymphocytes % 25.4; Mean Corp. HGB Concentration 33.2 g/dL (32.0-36.0); Mean Corpuscular Volume 90.4 fL (80-95); Mean Platelet Volume 10.4 fL (8.0-11.0); Monocytes % 10.9; Neutrophils % 57.6; Platelet Count 134 x1000/uL (130-400); RBC 4.17 m/cumm (4.50-6.00); RBC Distribution Width 13.7 % (11.8-14.1); White Blood Cell Count 6.13 k/cumm (4.4-10.8)
[2018-08-24 21:18] LABS: Bacteria Negative HPF (Negative); C & S Indicated? No; Casts Negative LPF (Negative); Crystals Negative HPF (Negative); Epithelial Cells Negative HPF (Negative); Mucus Negative (Negative); Other Cells Negative (Negative); WBC Negative HPF (0-5)
--- NOTE | 2018-08-24 21:29 | DI.VRAD_ITS ---
EXAM: CT Head Without Intravenous Contrast EXAM DATE/TIME: 08/24/2018 8:20 PM CLINICAL HISTORY: 63 years old, male; Signs and symptoms; Altered mental status/memory loss TECHNIQUE: Axial computed tomography images of the head/brain without intravenous contrast. Coronal and sagittal reformatted images were created and reviewed. COMPARISON: CT HEAD FOR STROKE PROTOCOL 07/29/2018 8:09 PM FINDINGS: Brain: Normal. No hemorrhage. No significant white matter disease. No edema. Ventricles: Normal. No ventriculomegaly. Bones/joints: Normal. No acute fracture. Sinuses: Mucosal thickening of bilateral ethmoid sinuses. Mastoid air cells: Normal as visualized. No mastoid effusion. Soft tissues: Normal. IMPRESSION: No acute intracranial abnormality. Paranasal mucosal disease as described above. Dictated and Authenticated by: Abdelrahman Carrero MD. Ordering:LILLIANA BENSON MD
--- NOTE | 2018-08-24 21:33 | DI.VRAD_ITS ---
EXAM: XR Chest, 1 View EXAM DATE/TIME: 08/24/2018 8:20 PM CLINICAL HISTORY: 63 years old, male; Signs and symptoms; Other: Altered mental status TECHNIQUE: XR of the chest, 1 view. COMPARISON: CR XR CHEST 1V IN DI DEPT 08/15/2018 7:34 AM FINDINGS: Lungs: Unremarkable. No consolidation. Pleural space: Unremarkable. No pleural effusion. No pneumothorax. Heart/Mediastinum: Unremarkable. No cardiomegaly. Bones/joints: Degenerative changes of the spine. IMPRESSION: No acute abnormality. Dictated and Authenticated by: Abdelrahman Carrero MD. Ordering:LILLIANA BENSON MD
[2018-08-24 21:40] LABS: ESR 28 MM/HR (1-20)
--- NOTE | 2018-08-24 21:58 | DI.VRAD_ITS ---
EXAM: CT Abdomen and Pelvis With Intravenous Contrast EXAM DATE/TIME: 08/24/2018 8:20 PM CLINICAL HISTORY: 63 years old, male; Pain and signs and symptoms; Abdominal tenderness and fever; Abdominal pain; Patient HX: Pain from abdomen through groin, scan fov to mid thigh per dr sanderson (er provider) TECHNIQUE: Axial computed tomography images of the abdomen and pelvis with intravenous contrast. Coronal and sagittal reformatted images were created and reviewed. COMPARISON: No relevant prior studies available. FINDINGS: Lower thorax: No acute findings. ABDOMEN: Liver: Subcentimeter hypodensity in the right hepatic lobe too small to be characterized. Gallbladder and bile ducts: Normal. No calcified stones. No ductal dilation. Pancreas: Normal. No ductal dilation. Spleen: Normal. No splenomegaly. Adrenals: Normal. No mass. Kidneys and ureters: Normal. No hydronephrosis. Stomach and bowel: Normal. No obstruction. No mucosal thickening. Appendix: Appendix is unremarkable. PELVIS: Bladder: There is mild bladder wall thickening. Reproductive: Unremarkable as visualized. ABDOMEN and PELVIS: Intraperitoneal space: Normal. No free air. No significant fluid collection. Bones/joints: Degenerative changes of the spine. Soft tissues: Unremarkable. Vasculature: Normal. No abdominal aortic aneurysm. Lymph nodes: Normal. No enlarged lymph nodes. IMPRESSION: Mild bladder wall thickening. Differential includes cystitis versus underdistention. Correlation with UA. Dictated and Authenticated by: Abdelrahman Carrero MD. Ordering:LILLIANA BENSON MD
[2018-08-25] VITALS (110 sets, daily range): BP systolic 98–151; BP diastolic 49–100; PULSE 50–81; RESP 8–43; TEMP 37.2; O2SAT 83–97
--- NOTE | 2018-08-25 01:59 | DI.MRI_ITS ---
SYMPTOM/DIAGNOSIS: LT HIP AND GROIN PAIN WITH FEVER, ? FLUID AROUND LT HIP PELVIC MRI: MRI examination of the pelvis was performed according to the usual protocol with additional pre and post contrast multi planar T 1 fat sat imaging. No pelvic mass or adenopathy is seen. Urinary bladder unremarkable in appearance. No inguinal adenopathy. There is slightly asymmetric joint fluid present in the hip joints with slightly greater amount of fluid on the left compared to the right. This appears within normal limits for physiologic quantity of joint fluid. No bony signal abnormality is seen. No significant tendinous or ligamentous signal abnormality is seen. No post contrast enhancement identified in the region of the hips or pelvis. CONCLUSION: Essentially negative hip MRI. Slightly asymmetrical quantity of fluid in hip joints, left greater than right.
[2018-08-25] MEDS: Sucralfate 1 GM TAB PO (02:32)
[2018-08-25] MEDS: Lactated Ringers 1,000 ML 150 ML IV (02:33)
--- NOTE | 2018-08-25 08:02 | DI.US_ITS ---
SYMPTOMS/DIAGNOSIS: LEFT GROIN PAIN, ? TORSION SCROTAL ULTRASOUND: Scrotal ultrasound was performed according to the usual protocol. The patient reports he has had a previous left orchiectomy. Right testis is unremarkable in appearance. There is a presumed remaining epididymis or testicular remnant on the left, which shows posterior acoustic shadowing. No hydrocele seen. CONCLUSION: Unremarkable right testis. Postsurgical left scrotum, no interval examinations for comparison since reported left orchiectomy, which is remote. I am uncertain whether the findings in the left scrotum may represent stable postsurgical appearance versus interval development of a mass. Clinical correlation requested and correlation with any old scrotal ultrasound and/or surgical note recommended.
[2018-08-25] MEDS: Gadoterate meglumine 20 ML VIAL 12 ML IVP (10:24)
== END 2018-08-25 12:44 | disposition home or self-care (01) ==
PROVIDERS: Emergency Medicine; Emergency Provider Student in an Organized Health Care Education/Training Program; PCP Nurse Practitioner
DX: M25.552 Pain in left hip (principal); R44.3 Hallucinations, unspecified; R10.32 Left lower quadrant pain; I10 Essential (primary) hypertension
CPT/HCPCS: 36415; 72197; 80053; 83690; 85652; 96361; 96374; 96376; 99285; 70450; 71045; 74177; 76870; 81003; 81015; 83605; 85025; 86140; J3490

== ENCOUNTER 2018-09-19 10:13 | Outpatient (CLI) | payer MEDICARE, SELFPAY | END 2018-09-19 10:33 | PROVIDERS: PCP Nurse Practitioner; Referring Provider Nurse Practitioner; Visit Provider Internal Medicine Interventional Cardiology | DX: I63.9 Cerebral infarction, unspecified (principal); I47.1 Supraventricular tachycardia | CPT/HCPCS: 0298T ==

== ENCOUNTER → 2018-09-20 09:10 | Outpatient (BNVA) | payer MEDICARE, MEDICAID, SELFPAY | PROVIDERS: PCP Nurse Practitioner; Visit Provider Psychiatry & Neurology Neurology | DX: G40.909 Epilepsy, unspecified, not intractable, without status epilepticus (principal); I63.30 Cerebral infarction due to thrombosis of unspecified cerebral artery; Z87.820 Personal history of traumatic brain injury; I10 Essential (primary) hypertension; J44.9 Chronic obstructive pulmonary disease, unspecified; Z87.891 Personal history of nicotine dependence | CPT/HCPCS: 99214 ==

== ENCOUNTER 2018-10-10 11:58 | Outpatient (REF) | payer MEDICARE, SELFPAY | END 2018-10-10 12:18 | LOC: LBN 11:58 | PROVIDERS: PCP Nurse Practitioner; Visit Provider Nurse Practitioner | DX: E53.8 Deficiency of other specified B group vitamins (principal); Z53.8 Procedure and treatment not carried out for other reasons | CPT/HCPCS: 82306 ==

== ENCOUNTER 2018-10-17 12:31 | Outpatient (REF) | payer MEDICARE, SELFPAY ==
[2018-10-17 13:52] LABS: Vitamin D 25 Total 17.8 ng/ml (30-100)
== END 2018-10-17 12:51 ==
LOC: LBN 12:31
PROVIDERS: PCP Nurse Practitioner; Visit Provider Nurse Practitioner
DX: E53.8 Deficiency of other specified B group vitamins (principal); E55.9 Vitamin D deficiency, unspecified; I25.10 Atherosclerotic heart disease of native coronary artery without angina pectoris; I69.354 Hemiplegia and hemiparesis following cerebral infarction affecting left non-dominant side
CPT/HCPCS: 82306

== ENCOUNTER 2018-10-20 10:21 | Outpatient (CLI) | payer MEDICARE, MEDICAID, SELFPAY ==
--- NOTE | 2018-10-20 10:16 | DI.RAD_ITS ---
SYMPTOM/DIAGNOSIS: INJURY LEFT HIP: There is no evidence of a fracture or dislocation.
--- NOTE | 2018-10-20 10:16 | DI.RAD_ITS ---
SYMPTOM/DIAGNOSIS: INJURY LEFT SHOULDER: A recent trauma history is provided. There is no demonstrated fracture or evidence of a dislocation.
== END 2018-10-20 10:41 ==
PROVIDERS: PCP Nurse Practitioner; Visit Provider Physician Assistant Surgical
DX: M25.552 Pain in left hip (principal); M25.512 Pain in left shoulder
CPT/HCPCS: 99211; 99214; 73030; 73502

== ENCOUNTER 2018-10-21 09:53 | Emergency (ER) | payer MEDICARE, MEDICAID, SELFPAY ==
[2018-10-21] VITALS (20 sets, daily range): BP systolic 116–148; BP diastolic 71–90; PULSE 63–76; RESP 8–23; TEMP 37.1; O2SAT 89–99
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
[2018-10-21] MEDS: HYDROmorphone 2 MG/ML VIAL IVP (10:21)
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
[2018-10-21 10:34] LABS: Abs Immature Grans 0.02 k/cumm (0.0-0.09); Absolute Basophil Count 0.03 k/cumm (0.0-0.2); Absolute Eosinophil Count 0.26 k/cumm (0.0-0.7); Absolute Lymphocyte Count 0.95 k/cumm (1.2-3.4); Absolute Monocyte Count 1.03 k/cumm (0.11-0.7); Absolute Neutrophil Count 6.86 k/cumm (1.2-6.7); Basophils % 0.3; Eosinophils % 2.8; HCT 42.6 % (40.0-50.0); HGB 14.7 g/dL (13.5-17.5); Immature Grans % 0.2; Lymphocytes % 10.4; Mean Corp. HGB Concentration 34.5 g/dL (32.0-36.0); Mean Corpuscular Hemoglobin 30.1 pg (27.0-33.0); Mean Corpuscular Volume 87.1 fL (80-95); Mean Platelet Volume 10.1 fL (8.0-11.0); Monocytes % 11.3; Platelet Count 138 x1000/uL (130-400); RBC 4.89 m/cumm (4.50-6.00); White Blood Cell Count 9.15 k/cumm (4.4-10.8)
[2018-10-21 10:50] LABS: ALT 18 U/L (12-78); AST 12 U/L (15-37); Albumin 3.6 g/dL (3.4-5.0); Alkaline Phosphatase 137 U/L (46-116); Anion Gap 9.3 mmol/L (3-11); BUN 11 mg/dL (7-18); Bilirubin, Total 1.1 mg/dL (0.2-1.0); CO2 26.7 mmol/L (21.0-32.0); CREATININE 0.91 mg/dL (0.70-1.30); Calcium 9.4 mg/dL (8.5-10.1); Chloride 102 mmol/L (98-107); Glucose 119 mg/dL (70-100); Magnesium 1.5 mg/dL (1.8-2.4); Sodium 138 mmol/L (136-145); Troponin I 0.02 ng/mL (0.00-0.06)
[2018-10-21] MEDS: Magnesium Oxide 400 MG TAB PO (12:16)
--- NOTE | 2018-10-21 12:17 | NUR.NOTE ---
salesperson furs is at the bedside.
--- NOTE | 2018-10-21 16:47 | PDOC.ERCMPRO ---
- If Service Date Differs Date of service: 10/21/18 Time of Service: 16:47 Care Management Progress Note CM met with Miguel at the bedside. Miguel states he has had uncontrolled pain at home, he would like to return to the [facility]. Miguel was discharged from the [facility] three weeks ago. He states he wanted to return home for the holiday. He reports he has been unable to care for himself due to uncontrolled pain. He went to see his primary care yesterday his pain medication was adjusted. However Miguel failed to shrimp picker his medications and states [facility] would not stop at the pharmacy. CM reviewed [facility] regulations and educated on how to arrange ride in advance including pharmacy. Miguel has home health services, he was approved for choices for care highest needs as of 10/20/18. CM spoke with [facility] and there will be CHIEF ACCOUNTING OFFICER's available as of 11/07/2018. Currently Miguel is receiving nursing, pt/ot and middleware consultant. His home child care provider is Priyanka Hameed at . CM will follow up with Priyanka on Wednesday in relation to services and referral to [facility]. [facility] is unable to offer a bed at this time. Miguel agrees to a referral to [facility]. CM contacted Admissions there is not a bed available today. CM faxed referral to admissions and they will contact patient once a bed is available pending acceptance. CM contacted Miguel's son Marciano and he is able to transport Miguel home and stop at the pharmacy. Miguel is able to transfer from bed to wheelchair, and into the car. Per sons report Miguel has been up daily in his wheelchair at home. Miguel agrees to plan and would like fci placement at this time. He feels that he will be able to be at home over the next week and would like to spend Sylvia with his family. CM to continue to follow up with patient in conjunction with community resources r/t placement at SNF when bed available. Miguel declines any additional referrals to out of the area SNF facilities. Son Marciano states he can provide support to his father at home with ADL's.
--- NOTE | 2018-10-21 16:58 | CMPROGNOTE_ITS ---
- If Service Date Differs Date of service: 10/21/18 Time of Service: 16:47 Care Management Progress Note CM met with Miguel at the bedside. Miguel states he has had uncontrolled pain at home, he would like to return to the [facility]. Miguel was discharged from the [facility] three weeks ago. He states he wanted to return home for the holiday. He reports he has been unable to care for himself due to uncontrolled pain. He went to see his primary care yesterday his pain medication was adjusted. However Miguel failed to picker / packer his medications and states [facility] would not stop at the pharmacy. CM reviewed [facility] regulations and educated on how to arrange ride in advance including pharmacy. Miguel has home health services, he was approved for choices for care highest needs as of 10/20/18. CM spoke with [facility] and there will be PHOTOGRAPHIC DEVELOPER AND PRINTER's available as of 11/07/2018. Currently Miguel is receiving nursing, pt/ot and geophysical prospecting surveyor. His animal caretaker is Priyanka Hameed at . CM will follow up with Priyanka on Wednesday in relation to services and referral to [facility]. [facility] is unable to offer a bed at this time. Miugel agrees to a referral to [facility]. CM contacted Admissions there is not a bed available today. CM faxed referral to admissions and they will contact patient once a bed is available pending acceptance. CM contacted Miguel's son Marciano and he is able to transport Miguel home and stop at the pharmacy. Miguel is able to transfer from bed to wheelchair, and into the car. Per sons report Miguel has been up daily in his wheelchair at home. Miguel agrees to plan and would like fpc placement at this time. He feels that he will be able to be at home over the next week and would like to spend Sylvia with his family. CM to continue to follow up with patient in conjunction with community resources r/t placement at SNF when bed available. Miguel declines any additional referrals to out of the area SNF facilities. Son Marciano states he can provide support to his father at home with ADL's.
== END 2018-10-21 13:40 | disposition home or self-care (01) ==
PROVIDERS: Emergency Provider Physician Assistant; PCP Nurse Practitioner
DX: M54.5 Low back pain (principal); G89.29 Other chronic pain; W05.0XXA Fall from non-moving wheelchair, initial encounter; I10 Essential (primary) hypertension; J44.9 Chronic obstructive pulmonary disease, unspecified; Z87.891 Personal history of nicotine dependence; I69.354 Hemiplegia and hemiparesis following cerebral infarction affecting left non-dominant side
CPT/HCPCS: 36415; 80053; 96374; 99284; 83735; 84484; 85025

== ENCOUNTER 2018-10-24 13:17 | Inpatient (IN) | payer MEDICARE, MEDICAID, SELFPAY ==
[2018-10-24] VITALS (83 sets, daily range): BP systolic 107–146; BP diastolic 63–102; PULSE 76–143; RESP 10–27; TEMP 37–37.9; O2SAT 90–100
--- NOTE | 2018-10-24 13:37 | NUR.NOTE ---
patient placed on continous cardiac monitoringNursing Note:
[2018-10-24] MEDS: Lactated Ringers 1,000 ML 1000 ML IV ×2 (13:48→16:54)
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
--- NOTE | 2018-10-24 14:10 | DI.RAD_ITS ---
SYMPTOMS/DIAGNOSIS: FEVER, COUGH AP AND LATERAL CHEST: The heart is not enlarged. The lungs appear grossly clear and well expanded. CONCLUSION: No evidence of acute disease. No pleural effusion seen.
--- NOTE | 2018-10-24 14:13 | NUR.NOTE ---
patient to radiology Nursing Note:
[2018-10-24 14:16] LABS: Abs Immature Grans 0.02 k/cumm (0.0-0.09); HGB 14.8 g/dL (13.5-17.5); Mean Corp. HGB Concentration 33.6 g/dL (32.0-36.0); Mean Corpuscular Hemoglobin 29.1 pg (27.0-33.0); Mean Corpuscular Volume 86.4 fL (80-95); Mean Platelet Volume 10.4 fL (8.0-11.0); Platelet Count 174 x1000/uL (130-400); RBC 5.09 m/cumm (4.50-6.00); RBC Distribution Width 13.1 % (11.8-14.1); White Blood Cell Count 12.26 k/cumm (4.4-10.8)
[2018-10-24 14:20] LABS: Bilirubin Small (Negative); Blood Large (Negative); Clarity Clear; Glucose Negative (Negative); Ketones Negative (Negative); Leukocyte Esterase Negative (Negative); Nitrite Negative (Negative); Specific Gravity >= 1.030 (1.005-1.025)
[2018-10-24 14:21] LABS: Lactate 3.5 mmol/L (0.6-1.4)
[2018-10-24 14:34] LABS: ALT 14 U/L (12-78); AST 17 U/L (15-37); Albumin 2.9 g/dL (3.4-5.0); Alkaline Phosphatase 160 U/L (46-116); Anion Gap 12.7 mmol/L (3-11); BUN 23 mg/dL (7-18); Bilirubin, Total 1.1 mg/dL (0.2-1.0); CO2 25.3 mmol/L (21.0-32.0); CREATININE 1.15 mg/dL (0.70-1.30); Calcium 9.9 mg/dL (8.5-10.1); Chloride 95 mmol/L (98-107); Glucose 151 mg/dL (70-100); Sodium 133 mmol/L (136-145); Total Protein 8.2 g/dL (6.4-8.2)
[2018-10-24 14:35] LABS: Bacteria Many HPF (Negative); C & S Indicated? Yes; Epithelial Cells Rare HPF (Negative)
--- NOTE | 2018-10-24 14:38 | NUR.NOTE ---
patient returned from radiology, will continue to monitor Nursing Note:
[2018-10-24 14:59] LABS: Absolute Eosinophil Count 0.25 k/cumm (0.0-0.7); Absolute Lymphocyte Count 0.61 k/cumm (1.2-3.4); Absolute Monocyte Count 1.59 k/cumm (0.11-0.7); Absolute Neutrophil Count 9.81 k/cumm (1.2-6.7); Atypical Lymphocytes % 1
[2018-10-24 15:00] LABS: Diff Comment Manual Differential
--- NOTE | 2018-10-24 15:29 | NUR.NOTE ---
patient sleeping upon reassessment and reports right sided chest pain 06/10 Nursing Note:
[2018-10-24 15:30] LABS: Creatine Kinase 60 U/L (39-308)
--- NOTE | 2018-10-24 15:31 | DI.CT_ITS ---
SYMPTOMS/DIAGNOSIS: CHEST PAIN, RIGHT; TACHYCARDIC CT ANGIOGRAPHY, CHEST: CT angiography was performed with multi slice acquisition and multi planar and 3D reconstruction. CT angiography of the chest was performed with a bolus infusion of 100 cc of Omnipaque 350. There are predominantly linear areas of pleural-based increased radiodensity in the lung bases, consistent with mild atelectasis. No evidence of pulmonary embolic disease. No thoracic aortic aneurysm or dissection seen. No mediastinal or hilar adenopathy. No pleural effusion or pneumothorax. Images obtained through the upper abdomen show unremarkable appearance of visualized portions of liver, spleen and pancreas, as well as adrenals. CONCLUSION: No evidence of acute intrapulmonary process.
[2018-10-24 15:32] LABS: Troponin I < 0.02 ng/mL (0.00-0.06)
[2018-10-24] MEDS: Acetaminophen 325 MG TAB 650 MG PO (15:37)
[2018-10-24 15:38] LABS: TSH (W/Ref FT4) 0.71 uIU/mL (0.358-3.74)
--- NOTE | 2018-10-24 16:04 | NUR.NOTE ---
patient to CT Nursing Note:
[2018-10-24] MEDS: Omnipaque 350 MG/ML 100 ML BTL IJ (16:18)
--- NOTE | 2018-10-24 16:20 | NUR.NOTE ---
patient returned from CT Nursing Note:
--- NOTE | 2018-10-24 16:45 | DI.VRAD_ITS ---
EXAM: CT Angiography Chest With Contrast EXAM DATE/TIME: 10/24/2018 3:33 PM CLINICAL HISTORY: 63 years old, male; Pain; Chest pain and other: RT sided cp, tachycardia; Type not specified TECHNIQUE: Axial computed tomographic angiography images of the chest with intravenous contrast using CT angiography protocol. All CT scans at this facility use at least one of these dose optimization techniques: automated exposure control; mA and/or kV adjustment per patient size (includes targeted exams where dose is matched to clinical indication); or iterative reconstruction. Coronal and sagittal reformatted images were created and reviewed. MIP reconstructed images were created and reviewed. CONTRAST: 100 ml of Omnipaque 350 administered intravenously. COMPARISON: CT THORAX CTA 08/11/2018 7:30 PM FINDINGS: Pulmonary arteries: No pulmonary embolus or aortic dissection. Aorta: Calcification of the thoracic aorta and/or great vessels consistent with atherosclerotic vessel disease. Lungs: Right apical pleural and/or parenchymal scarring. Bilateral discoid atelectasis and/or scarring. Pleural space: Normal. No pneumothorax. No pleural effusion. Heart: Normal. No cardiomegaly. No pericardial effusion. Lymph nodes: Unremarkable. No enlarged lymph nodes. Bones/joints: Unremarkable. No acute fracture. Soft tissues: Unremarkable. IMPRESSION: No pulmonary embolus or aortic dissection. Dictated and Authenticated by: Tu Meeks MD. Ordering:YVROSE Odonnell MD
[2018-10-24] MEDS: MAGNESIUM SULFATE 1 GM/100 ML BAG IVPB (17:15)
--- NOTE | 2018-10-24 17:34 | NUR.NOTE ---
patient has #20 to right ac, 20 right hand, and 18 left aC Nursing Note:
--- NOTE | 2018-10-24 17:40 | NUR.NOTE ---
patient to be transfered to ICU Nursing Note:
--- NOTE | 2018-10-24 17:48 | NUR.NOTE ---
patient voided 500 mL, depends changed Nursing Note:
--- NOTE | 2018-10-24 18:22 | NUR.NOTE ---
report given to Wendy JOSHUA Nursing Note:
[2018-10-24] MEDS: Normal Saline Flush 10 ML SYR IVP (19:46)
[2018-10-24] MEDS: Normal Saline 1,000 ML 150 ML IV (19:47)
[2018-10-24] MEDS: fentaNYL 50 MCG PATCH TD (20:23)
[2018-10-24] MEDS: Mometasone 220 MCG 14 DOSE INHALER 1 PUFF IH (20:23)
[2018-10-24] MEDS: Atorvastatin 40 MG TAB PO (20:24)
[2018-10-24] MEDS: Isosorbide Dinitrate 10 MG TAB 20 MG PO (20:24)
[2018-10-24] MEDS: Sucralfate 1 GM TAB PO (20:24)
[2018-10-24] MEDS: Apixaban 5 MG TAB PO (20:24)
[2018-10-24] MEDS: Gabapentin 600 MG TAB PO (20:24)
[2018-10-24 20:25] LABS: Troponin I 0.04 ng/mL (0.00-0.06)
[2018-10-24] MEDS: lamoTRIgine 100 MG TAB PO (20:43)
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
[2018-10-24] MEDS: Metoprolol 12.5 MG TAB PO (22:36)
[2018-10-24] MEDS: traZODone 50 MG TAB 100 MG PO (22:36)
[2018-10-25] VITALS (47 sets, daily range): BP systolic 110–137; BP diastolic 56–81; PULSE 52–85; RESP 9–26; TEMP 36.4–37.5; O2SAT 87–98
[2018-10-25 00:14] LABS: Troponin I 0.03 ng/mL (0.00-0.06)
[2018-10-25] MEDS: Baclofen 10 MG TAB PO (02:32)
[2018-10-25] MEDS: Normal Saline 1,000 ML 150 ML IV ×4 (02:38→21:25)
[2018-10-25] MEDS: Metoprolol 12.5 MG TAB PO ×3 (06:24→22:24)
[2018-10-25 06:52] LABS: HCT 35.3 % (40.0-50.0); HGB 11.9 g/dL (13.5-17.5); Mean Corp. HGB Concentration 33.7 g/dL (32.0-36.0); Mean Corpuscular Hemoglobin 29.8 pg (27.0-33.0); Mean Corpuscular Volume 88.3 fL (80-95); Mean Platelet Volume 10.1 fL (8.0-11.0); Platelet Count 146 x1000/uL (130-400); RBC Distribution Width 13.2 % (11.8-14.1); White Blood Cell Count 7.56 k/cumm (4.4-10.8)
--- NOTE | 2018-10-25 06:55 | PDOC.CMIN ---
- If Service Date Differs Date of service: 10/25/18 Time of Service: 06:55 Care Management Initial Assess REASON FOR HOSPITALIZATION:: Tachycardia, fever, dehydration PAST MEDICAL HISTORY/PAST SURGICAL HISTORY:: Multiple admissiona and ED visits over the past year. Vitamin B12 deficiency, neurological disorder, suicidal ideations, hemiparesis, epilepsy, cervical stenosis of spinal canal, atherosclerosis of coronary artery, COPD, adjustment disorder with mixed anxiety and depressed mood, [place], osteoarthritis, TBI, CVA, asthma, anxiety, adjustment disorder. Surgical hx: acromioplasty, arthroplasty of knee, colonoscopy, coronary stent, EGD-MAC, hernia repair (inguinal and umbilical), laminectomies C3-6. PREVIOUS FUNCTIONAL STATUS/SOCIAL/FAMILY SUPPORTS:: Miguel lives at home with his SO Mery and his son Marciano in [place], [place]. Miguel is wheelchair depedent at home, he does have home health services including nursing, PT/OT, CORPORATE TAX PREPARER and recently approved for choices for care highest needs. His telephonic nurse case manager is Priyanka Hameed. Miguel is incontinant, he is depedent with his ADL's. CURRENT FUNCTIONAL STATUS:: Miguel is being care for in the ICU, he appears pale and diapheretic during CM assessment. He states that illness occurs for him once a year. He reports pain all over his body including his hands. He recently had an increase in his fentanyl dose up to 62.5 mcg however he did not start the new dose yet. He states he has not been able to get out of the bed at home, to urinate or to care for himself. He feels that he will need a SNF placement prior to returning home. He is willing to return home with increased services including adult day if needed and if no local rehab is available. 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 Choices for care highest needs Priyanka Hameed is his community theater actor. Equipment includes wheelchair, walker and cane. He has meals on wheels, COA, and RCT. PRIMARY CARE PHYSICIAN:: Aissatou Briggs APRN POTENTIAL DISCHARGE NEEDS:: Referral to SNF facility r/t decondition and dependent care. PATIENT/FAMILY EDUCATION NEEDS:: Discharge education, limitatins, benefits related to skilled care, and LTC. ANTICIPATED BARRIERS TO DISCHARGE:: Miguel was discharged from the [facility] about weeks ago. Since then he has had several ED visits. CM did search for placement last week and Miguel was declined by [facility] the [facility]. CM reviewed with Rosina and there has been several calls to the home, community supports concern that he is not able to thrive in his home enviorment. TRANSPORTATION:: Pending discharge disposition. PLAN:: Miguel is currently receiving care in the ICU he will be discharged when medically ready per provider. Disposition to be determine home with [facility] and enrichment center support vs SNF or LTC. Miguel is willing to have CM send referrals to other SNF facilities around the area including [facility], [facility] to [facility] and rehab and [facility]. CM to continue to provide support to patient and care team ongoing discharge planning and disposition.
[2018-10-25 07:08] LABS: ALT 19 U/L (12-78); AST 27 U/L (15-37); Albumin 2.1 g/dL (3.4-5.0); Alkaline Phosphatase 234 U/L (46-116); Anion Gap 7.6 mmol/L (3-11); BUN 17 mg/dL (7-18); CO2 25.4 mmol/L (21.0-32.0); CREATININE 0.83 mg/dL (0.70-1.30); Calcium 8.7 mg/dL (8.5-10.1); Chloride 104 mmol/L (98-107); Glucose 124 mg/dL (70-100); Potassium 3.6 mmol/L (3.5-5.1); Sodium 137 mmol/L (136-145); Total Protein 5.8 g/dL (6.4-8.2)
--- NOTE | 2018-10-25 07:09 | INITIAL_ITS ---
- If Service Date Differs Date of service: 10/25/18 Time of Service: 06:55 Care Management Initial Assess REASON FOR HOSPITALIZATION:: Tachycardia, fever, dehydration PAST MEDICAL HISTORY/PAST SURGICAL HISTORY:: Multiple admissiona and ED visits over the past year. Vitamin B12 deficiency, neurological disorder, suicidal ideations, hemiparesis, epilepsy, cervical stenosis of spinal canal, atherosclerosis of coronary artery, COPD, adjustment disorder with mixed anxiety and depressed mood, [place], osteoarthritis, TBI, CVA, asthma, anxiety, adjustment disorder. Surgical hx: acromioplasty, arthroplasty of knee, colonoscopy, coronary stent, EGD-MAC, hernia repair (inguinal and umbilical), laminectomies C3-6. PREVIOUS FUNCTIONAL STATUS/SOCIAL/FAMILY SUPPORTS:: Miguel lives at home with his SO Mery and his son Marciano in [place], [place]. 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 His pillowcase sewer is Priyanka Hameed. Miguel is incontinant, he is depedent with his ADL's. CURRENT FUNCTIONAL STATUS:: Miguel is being care for in the ICU, he appears pale and diapheretic during CM assessment. He states that illness occurs for him once a year. He reports pain all over his body including his hands. He recently had an increase in his fentanyl dose up to 62.5 mcg however he did not start the new dose yet. He states he has not been able to get out of the bed at home, to urinate or to care for himself. He feels that he will need a SNF placement prior to returning home. He is willing to return home with increased services including adult day if needed and if no local rehab is available. 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 Choices for care highest needs Priyanka Hameed is his community affairs manager. Equipment includes wheelchair, walker and cane. He has meals on wheels, COA, and RCT. PRIMARY CARE PHYSICIAN:: Aissatou Briggs APRN POTENTIAL DISCHARGE NEEDS:: Referral to SNF facility r/t decondition and dependent care. PATIENT/FAMILY EDUCATION NEEDS:: Discharge education, limitatins, benefits related to skilled care, and LTC. ANTICIPATED BARRIERS TO DISCHARGE:: [facility]. Since then he has had several ED visits. CM did search for placement last week and [facility]. CM reviewed with Rosina and there has been several calls to the home, community supports concern that he is not able to thrive in his home enviorment. TRANSPORTATION:: Pending discharge disposition. PLAN:: Miguel is currently receiving care in the ICU he will be discharged when medically ready per provider. Disposition to be determine home with [facility] and enrichment center support vs SNF or LTC. Miguel is willing to have CM send referrals to other SNF facilities around the area including [facility], [facility] to [facility] re[facility] and [facility]. CM to continue to provide support to patient and care team ongoing discharge planning and disposition.
[2018-10-25] MEDS: Sucralfate 1 GM TAB PO ×4 (08:00→19:59)
[2018-10-25] MEDS: Apixaban 5 MG TAB PO ×2 (08:00→19:59)
[2018-10-25] MEDS: Pantoprazole 40 MG TABCR PO (08:00)
[2018-10-25] MEDS: Magnesium Oxide 400 MG TAB PO (08:00)
[2018-10-25] MEDS: Multivitamin w/Minerals TAB 1 TAB PO (08:00)
[2018-10-25] MEDS: Citalopram 20 MG TAB PO (08:00)
[2018-10-25] MEDS: lamoTRIgine 100 MG TAB PO ×2 (08:00→19:59)
[2018-10-25] MEDS: Clopidogrel 75 MG TAB PO (08:00)
[2018-10-25] MEDS: Gabapentin 600 MG TAB PO ×3 (08:00→19:59)
[2018-10-25] MEDS: Isosorbide Dinitrate 10 MG TAB 20 MG PO ×2 (08:00→19:59)
[2018-10-25 08:11] LABS: Lactate-non-spesis 0.8 mmol/L (0.6-1.4)
--- NOTE | 2018-10-25 08:38 | PHARADMIT ---
Addendum entered by Juan Carlos Willoughby III 10/28/18 15:38: Pharmacy Note Subjective Patient presented with SIRs, causing PSVTs (resolved). Pneumonia negative on CT. Cultures negative x 72 hrs. Patient has chronic CHF (EF- 45-50%) which is improving. Patient is ambulating. Objective VS-OK H&H-stable Plts-213 Wgt-63.1 kg BM yesterday Assessment Lopressor held this AM due to low HR-50, dose frecquency adjusted to BID. MD wants Rocephin to continue. Plan Patient feeling better, eating & drinking no nausea. Will be discharged soon. Original Note: Addendum entered by Kierra Hall 10/27/18 12:47: Pharmacy Note Subjective pt has crackles w/ a non productive cough per morning report Objective BP-168/90 Tmax-37.9 other VS okay K+4.0(up) weight-65.7(up) Assessment bolus of IV furosemide given blood cultures no growth @48hrs, sputum culture no growth@24 hours, rapid flu negative ceftriaxone continues (dose #4 due this evening) Plan continue to watch VS, labs, and for med changes Original Note: Addendum entered by Lois Pena 10/26/18 17:21: Pharmacy Note Subjective abdomen distended, skin breakdown Objective VS ok, chronic pain 7/10, K+ 3.3, Mag 1.8 Micro urine: <10K colonies Assessment K-dur 40meq po BID Micro of urine really insignificant, some docs would choose not to treat Rocephin is day #2 tonight Soft stool x 2 today Plan CM working on placement or options for returning home, uses wheelchair Original Note: Admission Pharmacy Clinical Review TACHYCARDIA with FEVER, DEHYDRATION Code Status Full Code Current Weight Wgt-64.5 kg Renally Cleared and Narrow Therapeutic Index Meds CrCl~ 70 mL/min Meds-OK QTc Value / Action Taken QTc- 385 na BP Control, Fever BP- 110/71 Tmax- 37.9C Electrolytes reviewed Na- 137 K+3.6 DVT Prophylaxis Apixaban, Plavix Opiate Usage / Scheduled Bowel Regimen Ordered Yes Yes Plt/SCr for Heparin / Enoxaparin Plts-146 SCr- 0.83 INR for Warfarin NA H/H stable, WBC/Bands H&H- 11.9/35.3 WBC- 7.56 Antibiotic appropriateness Rocephin Cultures and Sensitivities BLOOD,URINE-PENDING Surgical ABX d/c within 24 hr NA DM control / Insulin Dosing BG- 124 Aspart Heart Failure (Check EF%) (FEDERICO's, B-Block, Diuretics) ISDN, Lopressor, NTG, IV to PO Switch No Home Meds Reviewed Yes Home Meds Not Ordered Flonase, Comments
[2018-10-25] MEDS: Mometasone 220 MCG 14 DOSE INHALER 1 PUFF IH ×2 (09:21→19:58)
--- NOTE | 2018-10-25 10:16 | PGE_ITS ---
Date of Service Date of service: 10/25/18 Time of Service: 10:14 Assessment and Plan (1) PSVT (paroxysmal supraventricular tachycardia): Current visit: Yes Status: Resolved Likely part of the SIRS when the patient first presented. This has resolved with IV hydration, IV rocephin and beta blockers. Ok to transfer out of ICU. Await blood culture results. Check echo. Continue to monitor on tele while on med surg floor. No ACS by troponins and no evidence of a recurrent PE on CTA. (2) Acute bronchitis: Current visit: Yes Status: Acute No evidence of PNA on CT and CXR, but the patient does have a productive cough. Continue rocephin. Obtain sputum culture. Flu swab negative. (3) Dysuria: Current visit: Yes Status: Acute No evidence of UTI by UA/C&S. Consider STD's/herpes (4) SIRS (systemic inflammatory response syndrome): Current visit: Yes Status: Acute Resolved. Read above (5) COPD (chronic obstructive pulmonary disease): Current visit: No Status: Chronic Clinically, not in acute exacerbation. Treat bronchitis. Monitor respiratory status. (6) CAD (coronary artery disease): Current visit: No Status: Chronic Stable. No evidence of ACS on this admission. (7) Dehydration: Current visit: Yes Status: Acute Persistent - continue IVF (8) Hemiparesis: Current visit: No Status: Chronic Chronic. 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 He states that it hurts the most in his hands and the back of his head. He complains of cough productive of yellow sputum. His tongue feels dry. It ye a little bit to urinate. He states his vision is blurry - which is normal without his glasses. No dizziness. No shortness of breath. No nausea. Appetite is good. He states he feels better today than he has in 2 weeks. Exam Narrative Exam Narrative: General: Middle-aged male, comfortable in bed, in a good mood, not in acute distress, appears better than when I last saw him in August HEENT: EOMI, dry MM, + thrush Heart: RRR, no m/r/g Lungs: Diminished breath sounds B GI: abdomen soft, nontender, nondistended Extremities: No edema, clubbing, or cyanosis; B foot drop Objective Objective Clinical Data: Abnormal lab results 10/24/18 10/24/18 10/24/18 Range/Units 13:50 13:50 14:00 WBC 12.26 H (4.4-10.8) k/cumm RBC (4.50-6.00) m/cumm Hgb (13.5-17.5) g/dL Hct (40.0-50.0) % Absolute Neutrophils 9.81 H (1.2-6.7) k/cumm Absolute Lymphocytes 0.61 L (1.2-3.4) k/cumm Absolute Monocytes 1.59 H (0.11-0.7) k/cumm Sodium 133 L (136-145) mmol/L Chloride 95 L (98-107) mmol/L Anion Gap 12.7 H (3-11) mmol/L BUN 23 H (7-18) mg/dL Glucose 151 H (70-100) mg/dL Lactate 3.5 H* (0.6-1.4) mmol/L Total Bilirubin 1.1 H (0.2-1.0) mg/dL Alkaline Phosphatase 160 H (46-116) U/L Total Protein (6.4-8.2) g/dL Albumin 2.9 L (3.4-5.0) g/dL Ur Specific [place] >= 1.030 H (1.005-1.025) Urine Protein >=300 H (Negative) mg/dL Urine Blood Large H (Negative) Urine Bilirubin Small H (Negative) Urine Urobilinogen 1.0 H (Up TO 0.2) EU/dL Urine RBC 5-10 H (0-2) 10/25/18 10/25/18 Range/Units 06:20 06:20 WBC (4.4-10.8) k/cumm RBC 4.00 L (4.50-6.00) m/cumm Hgb 11.9 L D (13.5-17.5) g/dL Hct 35.3 L (40.0-50.0) % Absolute Neutrophils (1.2-6.7) k/cumm Absolute Lymphocytes (1.2-3.4) k/cumm Absolute Monocytes (0.11-0.7) k/cumm Sodium (136-145) mmol/L Chloride (98-107) mmol/L Anion Gap (3-11) mmol/L BUN (7-18) mg/dL Glucose 124 H (70-100) mg/dL Lactate (0.6-1.4) mmol/L Total Bilirubin (0.2-1.0) mg/dL Alkaline Phosphatase 234 H (46-116) U/L Total Protein 5.8 L (6.4-8.2) g/dL Albumin 2.1 L (3.4-5.0) g/dL Ur Specific [place] (1.005-1.025) Urine Protein (Negative) mg/dL Urine Blood (Negative) Urine Bilirubin (Negative) Urine Urobilinogen (Up TO 0.2) EU/dL Urine RBC (0-2) Vital Signs Temperature 37.5 C 10/25/18 03:30 Temperature Source Temporal Artery Scan 10/25/18 03:30 Pulse 71 10/25/18 09:00 Pulse 64 10/25/18 09:40 Respiratory Rate 13 10/25/18 09:40 Respiratory Effort Non-Labored 10/25/18 03:30 Respiratory Depth Normal 10/25/18 03:30 Respiratory Pattern Normal 10/25/18 03:30 Blood Pressure 124/76 10/25/18 09:00 Blood Pressure Mean 88 10/25/18 09:00 Blood Pressure Position Supine 10/24/18 18:55 Pulse Oximetry 98 10/25/18 09:40 Oxygen Delivery Method Room Air 10/25/18 00:25 Oxygen Flow Rate 0 10/25/18 00:25 Pain Level 5 10/25/18 03:30 Intake & Output 10/24/18 10/24/18 10/25/18 11:59 23:59 11:59 Intake Total 725 / 725 3600 / 3600 Output Total 1050 / 1050 325 / 325 Balance -325 / -325 3275 / 3275 Weight 64.4 kg 64.5 kg Intake: IV 425 / 425 3150 / 3150 Oral 300 / 300 450 / 450 Output: Urine 1050 / 1050 325 / 325 Other: Urine Color Light Galilea Dark Galilea Urine Appearance Clear Cloudy Urine Odor None Normal Comment has difficulty at home getting to toilet/urinal Voiding Methods Urinal Laboratory Results WBC 7.56 k/cumm (4.4-10.8) D 10/25/18 06:20 RBC 4.00 m/cumm (4.50-6.00) L 10/25/18 06:20 Hgb 11.9 g/dL (13.5-17.5) L D 10/25/18 06:20 Hct 35.3 % (40.0-50.0) L 10/25/18 06:20 MCV 88.3 fL (80-95) 10/25/18 06:20 MCH 29.8 pg (27.0-33.0) 10/25/18 06:20 MCHC 33.7 g/dL (32.0-36.0) 10/25/18 06:20 RDW 13.2 % (11.8-14.1) 10/25/18 06:20 Plt Count 146 x1000/uL (130-400) 10/25/18 06:20 MPV 10.1 fL (8.0-11.0) 10/25/18 06:20 Immature Gran % 0.0 10/24/18 13:50 Neutrophils % 80.0 10/24/18 13:50 Lymphocytes % 4.0 10/24/18 13:50 Monocytes % 13.0 10/24/18 13:50 Eosinophils % 2.0 10/24/18 13:50 Basophils % 0.0 10/24/18 13:50 Absolute Neutrophils 9.81 k/cumm (1.2-6.7) H 10/24/18 13:50 Absolute Lymphocytes 0.61 k/cumm (1.2-3.4) L 10/24/18 13:50 Absolute Monocytes 1.59 k/cumm (0.11-0.7) H 10/24/18 13:50 Absolute Eosinophils 0.25 k/cumm (0.0-0.7) 10/24/18 13:50 Absolute Basophils 0.00 k/cumm (0.0-0.2) 10/24/18 13:50 Differential Comment Manual differential 10/24/18 13:50 Atypical Lymphocytes 1 10/24/18 13:50 RBC Morphology See below 10/24/18 13:50 Sodium 137 mmol/L (136-145) 10/25/18 06:20 Potassium 3.6 mmol/L (3.5-5.1) 10/25/18 06:20 Chloride 104 mmol/L (98-107) 10/25/18 06:20 Carbon Dioxide 25.4 mmol/L (21.0-32.0) 10/25/18 06:20 Anion Gap 7.6 mmol/L (3-11) 10/25/18 06:20 BUN 17 mg/dL (7-18) D 10/25/18 06:20 Creatinine 0.83 mg/dL (0.70-1.30) 10/25/18 06:20 Estimated GFR/1.73 m2 >= 60.00 (mL/min/1.73m2) 10/25/18 06:20 Glucose 124 mg/dL (70-100) H 10/25/18 06:20 Lactate 0.8 mmol/L (0.6-1.4) 10/25/18 08:05 Calcium 8.7 mg/dL (8.5-10.1) 10/25/18 06:20 Total Bilirubin 1.0 mg/dL (0.2-1.0) 10/25/18 06:20 AST 27 U/L (15-37) 10/25/18 06:20 ALT 19 U/L (12-78) 10/25/18 06:20 Alkaline Phosphatase 234 U/L (46-116) H 10/25/18 06:20 Creatine Kinase 60 U/L (39-308) 10/24/18 13:50 Troponin I 0.03 ng/mL (0.00-0.06) 10/24/18 23:55 Total Protein 5.8 g/dL (6.4-8.2) L 10/25/18 06:20 Albumin 2.1 g/dL (3.4-5.0) L 10/25/18 06:20 TSH 0.71 uIU/mL (0.358-3.74) 10/24/18 13:50 Urine Color Galilea (Yellow) 10/24/18 14:00 Urine Clarity Clear 10/24/18 14:00 Urine pH 6.0 (5-8) 10/24/18 14:00 Ur Specific [place] >= 1.030 (1.005-1.025) H 10/24/18 14:00 Urine Protein >=300 mg/dL (Negative) H 10/24/18 14:00 Urine Ketones Negative mg/dL (Negative) 10/24/18 14:00 Urine Blood Large (Negative) H 10/24/18 14:00 Urine Nitrite Negative (Negative) 10/24/18 14:00 Urine Bilirubin Small (Negative) H 10/24/18 14:00 Urine Urobilinogen 1.0 EU/dL (Up TO 0.2) H 10/24/18 14:00 Ur Leukocyte Esterase Negative (Negative) 10/24/18 14:00 Urine RBC 5-10 (0-2) H 10/24/18 14:00 Urine WBC 3-5 HPF (0-5) 10/24/18 14:00 Ur Epithelial Cells Rare HPF (Negative) 10/24/18 14:00 Urine Crystals Not Applicable 10/24/18 14:00 Urine Bacteria Many HPF (Negative) 10/24/18 14:00 Urine Mucus Not Applicable 10/24/18 14:00 Ur Culture Indicated? Yes 10/24/18 14:00 Urine Glucose Negative mg/dL (Negative) 10/24/18 14:00 Preliminary Urine C&S: NGTD Flu swab negative Blood cx x 2 pending
[2018-10-25] MEDS: Acetaminophen 325 MG TAB PO (10:54)
[2018-10-25] MEDS: Nystatin 500000 UNITS/5 ML SUSP 5ML CUP PO ×3 (16:36→22:23)
[2018-10-25] MEDS: Acetaminophen 500 MG TAB 1000 MG PO (18:40)
[2018-10-25] MEDS: Atorvastatin 40 MG TAB PO (19:59)
[2018-10-25] MEDS: traZODone 50 MG TAB 100 MG PO (22:24)
[2018-10-26] VITALS (10 sets, daily range): BP systolic 137–165; BP diastolic 80–92; PULSE 62–77; RESP 18–24; TEMP 36–37.6; O2SAT 89–99
[2018-10-26] MEDS: Metoprolol 12.5 MG TAB PO ×3 (05:49→22:18)
[2018-10-26] MEDS: Nystatin 500000 UNITS/5 ML SUSP 5ML CUP PO ×5 (05:49→22:18)
[2018-10-26 07:18] LABS: Abs Immature Grans 0.02 k/cumm (0.0-0.09); Absolute Basophil Count 0.02 k/cumm (0.0-0.2); Absolute Eosinophil Count 0.65 k/cumm (0.0-0.7); Absolute Lymphocyte Count 0.61 k/cumm (1.2-3.4); Absolute Monocyte Count 0.65 k/cumm (0.11-0.7); Absolute Neutrophil Count 4.86 k/cumm (1.2-6.7); Basophils % 0.3; Eosinophils % 9.5; HCT 34.6 % (40.0-50.0); HGB 11.4 g/dL (13.5-17.5); Immature Grans % 0.3; Mean Corp. HGB Concentration 32.9 g/dL (32.0-36.0); Mean Corpuscular Hemoglobin 29.5 pg (27.0-33.0); Mean Corpuscular Volume 89.4 fL (80-95); Mean Platelet Volume 10.3 fL (8.0-11.0); Monocytes % 9.5; Neutrophils % 71.4; Platelet Count 169 x1000/uL (130-400); RBC 3.87 m/cumm (4.50-6.00); RBC Distribution Width 13.3 % (11.8-14.1); White Blood Cell Count 6.81 k/cumm (4.4-10.8)
[2018-10-26 07:28] LABS: Anion Gap 11.2 mmol/L (3-11); BUN 14 mg/dL (7-18); CO2 22.8 mmol/L (21.0-32.0); CREATININE 0.71 mg/dL (0.70-1.30); Calcium 9.5 mg/dL (8.5-10.1); Chloride 109 mmol/L (98-107); Glucose 114 mg/dL (70-100); Magnesium 1.8 mg/dL (1.8-2.4); Potassium 3.3 mmol/L (3.5-5.1); Sodium 143 mmol/L (136-145)
[2018-10-26] MEDS: Pantoprazole 40 MG TABCR PO (07:40)
[2018-10-26] MEDS: Multivitamin w/Minerals TAB 1 TAB PO (07:40)
[2018-10-26] MEDS: Clopidogrel 75 MG TAB PO (07:40)
[2018-10-26] MEDS: lamoTRIgine 100 MG TAB PO ×2 (07:40→20:10)
[2018-10-26] MEDS: Isosorbide Dinitrate 10 MG TAB 20 MG PO ×2 (07:40→20:10)
[2018-10-26] MEDS: Gabapentin 600 MG TAB PO ×3 (07:40→20:10)
[2018-10-26] MEDS: Sucralfate 1 GM TAB PO ×4 (07:40→20:10)
[2018-10-26] MEDS: Acetaminophen 500 MG TAB 1000 MG PO ×2 (07:41→20:10)
[2018-10-26] MEDS: Citalopram 20 MG TAB PO (07:41)
[2018-10-26] MEDS: Magnesium Oxide 400 MG TAB PO (07:41)
[2018-10-26] MEDS: Apixaban 5 MG TAB PO ×2 (07:41→20:10)
[2018-10-26] MEDS: Mometasone 220 MCG 14 DOSE INHALER 1 PUFF IH ×2 (07:50→20:25)
--- NOTE | 2018-10-26 09:00 | MERGE_ITS ---
*[facility]* *[facility]* [address] [place] [address] Date of study: 10/26/2018 Transthoracic Echocardiography M-mode, complete 2D, complete spectral Doppler, and color Doppler *STUDY CONCLUSIONS* Impressions: Frequent ectopy was noted on this study, making this study technically difficult for the assessment of cardiac function. Summary: 1. Left ventricle: The cavity size was normal. Wall thickness was normal. Systolic function was mildly reduced. The estimated ejection fraction was 45-50%. There were no regional wall motion abnormalities. 2. Aortic valve: There was mild regurgitation. 3. Mitral valve: Mild thickening, consistent with myxomatous proliferation. There was mild regurgitation. 4. Left atrium: The atrium was mildly dilated. 5. Right ventricle: The cavity size was normal. Wall thickness was normal. Systolic function was normal. 6. Pulmonary arteries: Pulmonary systolic pressure was increased, in the range of 40mm Hg to 45mm Hg. *PATIENT PRESENTATION* Height: 157.5cm ((62in) ) S/D Pressure: 149 / 80 Weight: 64.4kg ((141.7lb) ) BSA: 1.69m^2 Test start time: 09:00 AM. Test stop time: 10:00 AM. PERFORMING [facility] SMOKE INSPECTOR RT Lemuel Christianson)(CT), [facility] CONSULTING Aissatou Briggs Yelena A REFERRING Asha Felix *PROCEDURE DATA* Procedure information: The patient was identified by two identifiers. This study was interpreted by [facility]. Pertinent images and digital data are archived for permanent storage and are available for subsequent review. Comparison was made to the study of 08/12/2018. Study status: Routine. Transthoracic echocardiography. M-mode, complete 2D, complete spectral Doppler, and color Doppler. A Transthoracic Echocardiogram was performed. Scanning was performed from the parasternal, apical, subcostal, and suprasternal notch acoustic windows. Images were obtained using an [id number] cardiac ultrasound machine. Image quality was adequate. Study completion: The patient tolerated the procedure well. There were no complications. History: PMH: SVT. *CARDIAC ANATOMY* Left ventricle: The cavity size was normal. Wall thickness was normal. Systolic function was mildly reduced. The estimated ejection fraction was 45-50%. There were no regional wall motion abnormalities. Diastolic parameters were normal. Aortic valve: Trileaflet; normal thickness leaflets. Mobility was not restricted. Doppler: Transvalvular velocity was within the normal range. There was no stenosis. There was mild regurgitation. VTI ratio of LVOT to aortic valve: 0.8. Valve area (VTI): 2.5cm^2. Indexed valve area (VTI): 1.5cm^2/m^2. Peak velocity ratio of LVOT to aortic valve: 0.76. Valve area (Vmax): 2.4cm^2. Indexed valve area (Vmax): 1.4cm^2/m^2. Mean velocity ratio of LVOT to aortic valve: 0.85. Valve area (Vmean): 2.6cm^2. Indexed valve area (Vmean): 1.6cm^2/m^2. Mean gradient (S): 3.3mm Hg. Peak gradient (S): 6.1mm Hg. Aorta: Aortic root: The aortic root was normal in size. Ascending aorta: The ascending aorta was normal in size. Mitral valve: Mild thickening, consistent with myxomatous proliferation. Mobility was not restricted. Doppler: Transvalvular velocity was within the normal range. There was no evidence for stenosis. There was mild regurgitation. Valve area by pressure half-time: 5.6cm^2. Indexed valve area by pressure half-time: 3.3cm^2/m^2. Peak gradient (D): 3.3mm Hg. Left atrium: The atrium was mildly dilated. Right ventricle: The cavity size was normal. Wall thickness was normal. Systolic function was normal. Pulmonic valve: The pulmonary valve appears to be grossly normal. Doppler: Transvalvular velocity was within the normal range. There was no evidence for stenosis. There was trivial regurgitation. Peak gradient (S): 4.2mm Hg. Tricuspid valve: Structurally normal valve. Doppler: Transvalvular velocity was within the normal range. There was no evidence for stenosis. There was trivial regurgitation. Pulmonary artery: Pulmonary systolic pressure was increased, in the range of 40mm Hg to 45mm Hg. Right atrium: The atrium was normal in size. Pericardium: There was no pericardial effusion. Systemic veins: Inferior vena cava: Well visualized. The vessel was patent and normal in size. The respirophasic diameter changes were in the normal range (greater than or equal to 50%). Baseline ECG: Normal sinus rhythm. Measurements Left ventricle Value 08/12/2018 Reference LV ID, ED, PLAX 5.6 cm 5.9 3.5 - 6.0 LV ID, ES, PLAX 3.9 cm 4.5 2.1 - 4.0 LV PW thickness, ED, PLAX 0.8 cm 0.8 LV end-diastolic volume, 104 ml 98 1-p A2C LV ejection fraction, 1-p 39 % 46 A2C LV end-diastolic volume, 96 ml 95 1-p A4C LV ejection fraction, 1-p 50 % 56 A4C LV e', lateral 0.082 m/sec 0.088 LV E/e', lateral 11 9 LV e', medial 0.116 m/sec 0.093 LV E/e', medial 8 9 LV e', average 0.099 m/sec 0.09 LV E/e', average 9 9 Ventricular septum Value 08/12/2018 Reference IVS thickness, ED, PLAX 0.7 cm 0.7 LVOT Value 08/12/2018 Reference LVOT ID, A-P 2.0 cm 2.1 LVOT area 3.1 cm^2 3.4 LVOT peak velocity, S 0.94 m/sec 1.29 LVOT mean velocity, S 0.74 m/sec 0.94 LVOT VTI, S 20.0 cm 27.7 LVOT peak gradient, S 3.5 mm Hg 6.7 LVOT mean gradient, S 2.3 mm Hg 3.9 Stroke volume (SV), LVOT 62 ml 94 DP Stroke index (SV/bsa), 37 ml/m^2 56 LVOT DP Aortic valve Value 08/12/2018 Reference Aortic valve peak 1.2 m/sec 1.9 velocity, S Aortic valve mean 0.87 m/sec 1.32 velocity, S Aortic valve VTI, S 25.0 cm 41.0 Aortic mean gradient, S 3.3 mm Hg 7.8 Aortic peak gradient, S 6.1 mm Hg 14.8 VTI ratio, LVOT/AV 0.8 0.67 Aortic valve area, VTI 2.5 cm^2 2.3 Velocity ratio, peak, 0.76 0.67 LVOT/AV Aortic valve area, peak 2.4 cm^2 2.3 velocity Velocity ratio, mean, 0.85 0.71 LVOT/AV Aortic valve area, mean 2.6 cm^2 2.4 velocity Aortic valve area/bsa, 1.6 cm^2/m^2 1.5 mean velocity Aorta Value 08/12/2018 Reference Aortic root ID, ED 3.5 cm 3.6 Ascending aorta ID, A-P, S 3.3 cm 3.0 Left atrium Value 08/12/2018 Reference LA ID, A-P, ES 3.3 cm 3.2 LA ID/bsa, A-P 1.9 cm/m^2 1.9 <=2.2 LA area, ES, A4C 20.5 cm^2 22.3 8.8 - 23.4 LA area, ES, A2C 19 cm^2 19 LA volume/bsa, ES, 1-p A4C 43 ml/m^2 46 LA volume, ES, 2-p 58 ml 62 LA volume/bsa, ES, 2-p 34 ml/m^2 37 LA/aortic root ratio 0.94 0.88 Mitral valve Value 08/12/2018 Reference Mitral E-wave peak 0.91 m/sec 0.81 velocity Mitral A-wave peak 0.72 m/sec 0.94 velocity Mitral deceleration time (L) 136 ms 199 150 - 230 Mitral pressure half-time 40 ms 58 Mitral peak gradient, D 3.3 mm Hg 2.6 Mitral E/A ratio, peak 1.26 0.86 Mitral valve area, PHT, DP 5.6 cm^2 3.8 Pulmonary veins Value 08/12/2018 Reference Pulmonary vein peak 0.56 m/sec 0.76 velocity, S Pulmonary vein peak 0.39 m/sec 0.45 velocity, D Pulmonary vein velocity 1.44 1.68 ratio, peak, S/D Pulmonary vein A-wave 0.39 m/sec 0.38 reversal peak velocity Pulmonary vein A-wave 105 ms reversal duration Tricuspid valve Value 08/12/2018 Reference Tricuspid regurg peak 3.2 m/sec 3 velocity Tricuspid peak RV-RA 40 mm Hg 37.1 gradient Right atrium Value 08/12/2018 Reference RA area, ES, A4C 12.4 cm^2 12 8.3 - 19.5 Pulmonic valve Value 08/12/2018 Reference Pulmonic peak gradient, S 4.2 mm Hg 3.7 Legend: (L) and (H) yara values outside specified reference range. I have personally reviewed the images and have reviewed and edited the reported findings. Electronically signed by Saji Case 10/26/2018 10:30
[2018-10-26] MEDS: Potassium Chloride 20 MEQ TABCR 40 MEQ PO ×2 (10:51→20:20)
[2018-10-26] MEDS: Baclofen 10 MG TAB PO (11:57)
[2018-10-26] MEDS: Normal Saline 1,000 ML 75 ML IV (12:18)
--- NOTE | 2018-10-26 12:35 | PDOC.CMPRO ---
- If Service Date Differs Date of service: 10/26/18 Time of Service: 12:35 Care Management Progress Note S/O: Miguel is lying in bed this morning. He is receptive to placement at a SNF facility. Miguel has agreed to referrals to [facility], and [facility]. CM spoke with [facility], whom states that they cannot accept Miguel. CM spoke with [facility], whom states that they have no beds available. CM left a message for [facility], in regards to a referral and am awaiting a call back at this time. A: 63 y/o male admitted 10/24/18 for Tachycardia with fever, Acute Bronchitis P: ? SNF placement. CM to send referral to [facility] after conversation with admissions. Miguel could also potentially return home with continued home health as well as going to [facility] throughout the week.
--- NOTE | 2018-10-26 12:46 | CMPROGNOTE_ITS ---
- If Service Date Differs Date of service: 10/26/18 Time of Service: 12:35 Care Management Progress Note S/O: Miguel is lying in bed this morning. He is receptive to placement at a SNF facility. Miguel has agreed to referrals to [facility], [facility], and [facility]. CM spoke with [facility], whom states that they cannot accept Miguel. CM spoke with [facility], whom states that they have no beds available. CM left a message for [facility], in regards to a referral and am awaiting a call back at this time. A: 63 y/o male admitted 10/24/18 for Tachycardia with fever, Acute Bronchitis P: ? SNF placement. CM to send referral to [facility] after conversation with admissions. Miguel could also potentially return home with continued home health as well as going to [facility] [place] throughout the week.
--- NOTE | 2018-10-26 13:09 | PGE_ITS ---
Date of Service Date of service: 10/26/18 Time of Service: 12:58 Assessment and Plan (1) PSVT (paroxysmal supraventricular tachycardia): Current visit: Yes Status: Resolved Likely part of the SIRS when the patient first presented. This has resolved with IV hydration, IV rocephin and beta blockers. Blood cultures have yielded no growth at 24 hours. Echocardiogram shows little change from 2 months ago, LVEF 45-50%, mild aortic regurgitation, LA mildly dilated, increased pulmonary systolic pressure at 40-45 mmHg. Has been in NSR on telemetry with rates in the 60s. Continue to monitor on telemetry overnight. No ACS by troponins and no evidence of a recurrent PE on CTA. (2) Acute bronchitis: Current visit: Yes Status: Acute No evidence of PNA on CT and CXR, but the patient does have a productive cough. Flu swab negative. Sputum culture has yielded no growth at 24 hours. Continue rocephin. (3) Dysuria: Current visit: Yes Status: Acute No evidence of UTI by UA/C&S. Dysuria resolved. (4) COPD (chronic obstructive pulmonary disease): Current visit: No Status: Chronic No acute exacerbation. Continue to treat bronchitis and monitor respiratory status. (5) CAD (coronary artery disease): Current visit: No Status: Chronic Stable. No evidence of ACS on this admission. (6) Dehydration: Current visit: Yes Status: Acute Improving. Decrease IV fluids. Discontinue once he is taking orals well. (7) Left hemiparesis: Current visit: No Status: Chronic Chronic. PT consulted. (8) Thrush, oral: Current visit: Yes Status: Acute Continue Nystatin swish and swallow. (9) Pulmonary embolism: Current visit: No Status: Chronic Chronically on Apixiban. Continue anticoagulation. (10) DVT prophylaxis: Current visit: No Status: Acute Continue chronic Apixiban. (11) Discharge planning issues: Current visit: No Status: Acute He is a FULL code. Care management is working on a safe discharge plan. Referrals have been sent to penitentiary facilities. This case was discussed with Dr. Felix who is in agreement. Subjective Interval history since last seen: Miguel reports feeling better overall today. He continues to have a productive cough, he continues to have posterior neck pain, his skin is sensitive to the touch. He is eating and drinking although he does not feel hungry. He denies chest pain/pressure, palpitations, shortness of breath, abdominal pain, or nausea. He had a large bowel movement today. He is no longer experiencing dysuria. He had an echocardiogram today which revealed an LVEF of 45-50%, he had and ECHO 2 months ago with LVEF of 50-55% at that time. Exam Narrative Exam Narrative: General: Middle-aged male, comfortable in bed, pleasant and cooperative, in no acute distress. HEENT: EOMI, MMM. Neck: supple, no JVD. Limited ROM due to discomfort. Heart: RRR, no m/r/g Lungs: Respirations even and unlabored. Diminished breath sounds Bilaterally, no adventitious sounds. GI: abdomen soft, nontender, nondistended with normoactive bowel sounds. Extremities: No edema, clubbing, or cyanosis; Bilateral foot drop Objective Objective Clinical Data: Abnormal lab results 10/26/18 10/26/18 Range/Units 06:20 06:20 RBC 3.87 L (4.50-6.00) m/cumm Hgb 11.4 L (13.5-17.5) g/dL Hct 34.6 L (40.0-50.0) % Absolute Lymphocytes 0.61 L (1.2-3.4) k/cumm Potassium 3.3 L (3.5-5.1) mmol/L Chloride 109 H (98-107) mmol/L Anion Gap 11.2 H (3-11) mmol/L Glucose 114 H (70-100) mg/dL Vital Signs Temperature 37.1 C 10/26/18 07:50 Temperature Source Tympanic 10/26/18 07:50 Pulse 67 10/26/18 07:50 Pulse Rhythm Regular 10/26/18 09:22 Pulse 64 10/25/18 09:40 Respiratory Rate 24 10/26/18 07:50 Respiratory Effort Non-Labored 10/26/18 09:22 Respiratory Depth Normal 10/26/18 09:22 Respiratory Pattern Normal 10/26/18 09:22 Blood Pressure 149/80 H 10/26/18 07:50 Blood Pressure Mean 88 10/25/18 09:00 Blood Pressure Position Supine 10/24/18 18:55 Pulse Oximetry 97 10/26/18 07:50 Oxygen Delivery Method Room Air 10/26/18 07:50 Oxygen Flow Rate 0 10/26/18 07:50 Pain Level 3 10/26/18 08:41 Intake & Output 10/25/18 10/26/18 10/26/18 23:59 11:59 23:59 Intake Total 1922.5 / 5522.5 1000 / 1000 Output Total 1580 / 2295 1949 Balance 342.5 / 3227.5 -950 / -950 Weight 65 kg Intake: IV 1802.5 / 4952.5 1000 / 1000 Oral 120 / 570 Output: Urine 1580 / 5 1949 Other: Urine Color Yellow Yellow Urine Appearance Clear Clear Urine Odor Normal None Stool Size Copious Stool Characteristics Soft Formed Voiding Methods Diaper Urinal Laboratory Results WBC 6.81 k/cumm (4.4-10.8) 10/26/18 06:20 RBC 3.87 m/cumm (4.50-6.00) L 10/26/18 06:20 Hgb 11.4 g/dL (13.5-17.5) L 10/26/18 06:20 Hct 34.6 % (40.0-50.0) L 10/26/18 06:20 MCV 89.4 fL (80-95) 10/26/18 06:20 MCH 29.5 pg (27.0-33.0) 10/26/18 06:20 MCHC 32.9 g/dL (32.0-36.0) 10/26/18 06:20 RDW 13.3 % (11.8-14.1) 10/26/18 06:20 Plt Count 169 x1000/uL (130-400) 10/26/18 06:20 MPV 10.3 fL (8.0-11.0) 10/26/18 06:20 Immature Gran % 0.3 10/26/18 06:20 Neutrophils % 71.4 10/26/18 06:20 Lymphocytes % 9.0 10/26/18 06:20 Monocytes % 9.5 10/26/18 06:20 Eosinophils % 9.5 10/26/18 06:20 Basophils % 0.3 10/26/18 06:20 Absolute Neutrophils 4.86 k/cumm (1.2-6.7) 10/26/18 06:20 Absolute Lymphocytes 0.61 k/cumm (1.2-3.4) L 10/26/18 06:20 Absolute Monocytes 0.65 k/cumm (0.11-0.7) 10/26/18 06:20 Absolute Eosinophils 0.65 k/cumm (0.0-0.7) 10/26/18 06:20 Absolute Basophils 0.02 k/cumm (0.0-0.2) 10/26/18 06:20 Differential Comment Manual differential 10/24/18 13:50 Atypical Lymphocytes 1 10/24/18 13:50 RBC Morphology See below 10/24/18 13:50 Sodium 143 mmol/L (136-145) 10/26/18 06:20 Potassium 3.3 mmol/L (3.5-5.1) L 10/26/18 06:20 Chloride 109 mmol/L (98-107) H 10/26/18 06:20 Carbon Dioxide 22.8 mmol/L (21.0-32.0) 10/26/18 06:20 Anion Gap 11.2 mmol/L (3-11) H 10/26/18 06:20 BUN 14 mg/dL (7-18) 10/26/18 06:20 Creatinine 0.71 mg/dL (0.70-1.30) 10/26/18 06:20 Estimated GFR/1.73 m2 >= 60.00 (mL/min/1.73m2) 10/26/18 06:20 Glucose 114 mg/dL (70-100) H 10/26/18 06:20 Lactate 0.8 mmol/L (0.6-1.4) 10/25/18 08:05 Calcium 9.5 mg/dL (8.5-10.1) 10/26/18 06:20 Magnesium 1.8 mg/dL (1.8-2.4) 10/26/18 06:20 Total Bilirubin 1.0 mg/dL (0.2-1.0) 10/25/18 06:20 AST 27 U/L (15-37) 10/25/18 06:20 ALT 19 U/L (12-78) 10/25/18 06:20 Alkaline Phosphatase 234 U/L (46-116) H 10/25/18 06:20 Creatine Kinase 60 U/L (39-308) 10/24/18 13:50 Troponin I 0.03 ng/mL (0.00-0.06) 10/24/18 23:55 Total Protein 5.8 g/dL (6.4-8.2) L 10/25/18 06:20 Albumin 2.1 g/dL (3.4-5.0) L 10/25/18 06:20 TSH 0.71 uIU/mL (0.358-3.74) 10/24/18 13:50 Urine Color [place] (Yellow) 10/24/18 14:00 Urine Clarity Clear 10/24/18 14:00 Urine pH 6.0 (5-8) 10/24/18 14:00 Ur Specific [place] >= 1.030 (1.005-1.025) H 10/24/18 14:00 Urine Protein >=300 mg/dL (Negative) H 10/24/18 14:00 Urine Ketones Negative mg/dL (Negative) 10/24/18 14:00 Urine Blood Large (Negative) H 10/24/18 14:00 Urine Nitrite Negative (Negative) 10/24/18 14:00 Urine Bilirubin Small (Negative) H 10/24/18 14:00 Urine Urobilinogen 1.0 EU/dL (Up TO 0.2) H 10/24/18 14:00 Ur Leukocyte Esterase Negative (Negative) 10/24/18 14:00 Urine RBC 5-10 (0-2) H 10/24/18 14:00 Urine WBC 3-5 HPF (0-5) 10/24/18 14:00 Ur Epithelial Cells Rare HPF (Negative) 10/24/18 14:00 Urine Crystals Not Applicable 10/24/18 14:00 Urine Bacteria Many HPF (Negative) 10/24/18 14:00 Urine Mucus Not Applicable 10/24/18 14:00 Ur Culture Indicated? Yes 10/24/18 14:00 Urine Glucose Negative mg/dL (Negative) 10/24/18 14:00
--- NOTE | 2018-10-26 13:43 | CHAPLAIN ---
Miguel was in bed when I visited. We know each from outside the hospital where we attend the same [facility], and I have visited with Miguel on his multiple admissions here. Miguel was in the ER a couple of times this week prior to this admission. He said that this time of year, he often has these physical symptoms at this time of year. He doesn't know yet if he'll be turning home or going to an SNF, he said. Miguel said that Marciano is taking care of Evita and home health visits them both. Miguel is a member of the [employer]. Although he has not attended temple for a few weeks because of not feeling well, members of the temple have visite him at home. He gave me permission to contact his exhibit artist, RevGrace Pandey, to let her know that he is here. I left a message at the temple for her.
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
[2018-10-26] MEDS: Atorvastatin 40 MG TAB PO (20:10)
[2018-10-26] MEDS: traZODone 50 MG TAB 100 MG PO (22:18)
--- NOTE | 2018-10-26 23:53 | NUR.NOTE ---
Nursing Note: From 2300 hrs to 0700 hrs shift: Pt. received on semi sapp's position fully awake but verbalized of having difficulty in breathing even at rest. O2 Sat checked was 88% at room air. O2 administered 2L via NC and latest O2 Sat is 96%. Has bearable pain on left side of chest, does not require pain med at this time. Lung sounds are diminished throughout. Abdomen is soft but rounded with active bowel sounds.Call lights at reach.
[2018-10-27] VITALS (14 sets, daily range): BP systolic 127–168; BP diastolic 72–97; PULSE 65–150; RESP 18–20; TEMP 37–37.9; O2SAT 93–96
[2018-10-27] MEDS: Normal Saline 1,000 ML 75 ML IV (01:41)
[2018-10-27] MEDS: Metoprolol 12.5 MG TAB PO ×3 (05:15→23:04)
[2018-10-27] MEDS: Nystatin 500000 UNITS/5 ML SUSP 5ML CUP PO ×5 (05:15→23:05)
[2018-10-27 07:14] LABS: HCT 36.9 % (40.0-50.0); HGB 12.2 g/dL (13.5-17.5); Mean Corp. HGB Concentration 33.1 g/dL (32.0-36.0); Mean Corpuscular Hemoglobin 29.4 pg (27.0-33.0); Mean Corpuscular Volume 88.9 fL (80-95); Mean Platelet Volume 10.5 fL (8.0-11.0); Platelet Count 193 x1000/uL (130-400); RBC 4.15 m/cumm (4.50-6.00); RBC Distribution Width 13.6 % (11.8-14.1); White Blood Cell Count 8.49 k/cumm (4.4-10.8)
[2018-10-27 07:25] LABS: Anion Gap 11.7 mmol/L (3-11); BUN 12 mg/dL (7-18); CO2 22.3 mmol/L (21.0-32.0); CREATININE 0.81 mg/dL (0.70-1.30); Calcium 9.3 mg/dL (8.5-10.1); Chloride 107 mmol/L (98-107); Glucose 113 mg/dL (70-100); Sodium 141 mmol/L (136-145)
[2018-10-27] MEDS: Mometasone 220 MCG 14 DOSE INHALER 1 PUFF IH ×2 (08:56→20:41)
[2018-10-27] MEDS: Multivitamin w/Minerals TAB 1 TAB PO (08:59)
[2018-10-27] MEDS: Clopidogrel 75 MG TAB PO (09:00)
[2018-10-27] MEDS: Citalopram 20 MG TAB PO (09:00)
[2018-10-27] MEDS: Potassium Chloride 20 MEQ TABCR 40 MEQ PO ×2 (09:00→20:44)
[2018-10-27] MEDS: Sucralfate 1 GM TAB PO ×4 (09:00→20:45)
[2018-10-27] MEDS: Apixaban 5 MG TAB PO ×2 (09:01→20:38)
[2018-10-27] MEDS: Gabapentin 600 MG TAB PO ×3 (09:01→20:40)
[2018-10-27] MEDS: Isosorbide Dinitrate 10 MG TAB 20 MG PO ×2 (09:01→20:41)
[2018-10-27] MEDS: lamoTRIgine 100 MG TAB PO ×2 (09:01→20:41)
[2018-10-27] MEDS: Magnesium Oxide 400 MG TAB PO (09:01)
[2018-10-27] MEDS: Pantoprazole 40 MG TABCR PO (09:01)
--- NOTE | 2018-10-27 09:35 | PT.INTREAT ---
Date of service: 10/27/18 Time of Service: 09:35 PT Notes Inpatient Physical Therapy Treatment Note Date: 10/27/18 PRECAUTIONS: Fall SUBJECTIVE: Miguel states that he is feeling better today. Patient states that he has been feeling SOB today, and that nsg is aware. OBJECTIVE: PAIN: Patient complained of pain in L LE with gait training BED MOBILITY/TRANSFERS Sit-stand: CGA Stand-sit: SBA GAIT Assistive Device: FWW Weight bearing: WBAT Assist: CGA Distance: 5 steps forward/backward Deviation: L LE pain THEREX: Patient completed several LE strengthening exercises in a seated position, as per flow sheet. ASSESSMENT: Patient tolerated session with some c/o L LE pain with gait training. Patient's L AFO/sneakers are not available at this time, which most likely contributes to his L LE pain with gait. PLAN: Continue with PT's POC TREATMENT CODE/TIME: 25 minutes; TA/TP
[2018-10-27] MEDS: Acetaminophen 500 MG TAB 1000 MG PO ×2 (09:55→20:43)
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
--- NOTE | 2018-10-27 11:10 | W.PM.PROGNOT ---
Date of Service Date of service: 10/27/18 Time of Service: 11:10 Assessment and Plan (1) PSVT (paroxysmal supraventricular tachycardia): Current visit: Yes Status: Resolved Likely part of the SIRS when the patient first presented. This has resolved with IV hydration, IV rocephin and beta blockers. Blood cultures have yielded no growth at 24 hours. Echocardiogram shows little change from 2 months ago, mild systolic dysfunction, LVEF 45-50%, mild aortic regurgitation, LA mildly dilated, increased pulmonary systolic pressure at 40-45 mmHg. Has been in NSR on telemetry with rates in the 60s, he had some epidoses of sinus tachycardia while coughing overnight. Continue to monitor on telemetry. No ACS by troponins and no evidence of a recurrent PE on CTA. (2) CHF (congestive heart failure): Current visit: Yes Status: Chronic Mild systolic dysfunction noted on echocardiogram, LVEF 45-50%. He appears mildly fluid overloaded by physical exam, weight is up 1.7 kg today. Give IV lasix bolus. Continue to monitor fluid status and renal function. (3) Acute bronchitis: Current visit: Yes Status: Acute No evidence of PNA on CT and CXR, but the patient does have a productive cough. Flu swab negative. Sputum culture has yielded no growth at 24 hours. Continue rocephin. (4) Dysuria: Current visit: Yes Status: Acute No evidence of UTI by UA/C&S. Dysuria resolved. (5) COPD (chronic obstructive pulmonary disease): Current visit: No Status: Chronic No acute exacerbation. Continue to treat bronchitis and monitor respiratory status. (6) CAD (coronary artery disease): Current visit: No Status: Chronic Stable. No evidence of ACS on this admission. (7) Dehydration: Current visit: Yes Status: Acute Improved. Discontinue IV fluids, he is taking orals well. (8) Left hemiparesis: Current visit: No Status: Chronic Chronic. PT/OT consulted. (9) Thrush, oral: Current visit: Yes Status: Acute Continue Nystatin swish and swallow. (10) Pulmonary embolism: Current visit: No Status: Chronic Chronically on Apixiban. Continue anticoagulation. (11) DVT prophylaxis: Current visit: No Status: Acute Continue chronic Apixiban. (12) Discharge planning issues: Current visit: No Status: Acute He is a FULL code. Care management is working on a safe discharge plan. He will likely return home with services and possibly attend Adult day services. This case was discussed with Dr. Felix who is in agreement. Subjective Interval history since last seen: Miguel is a 63 year old male with a past medical history significant for TBI, CVA, left hemiparesis, chronic pain, CAD, and PE, who is currently being treated for bronchitis, PSVT with SIRS. SIRS has resolved. He continues to cough, productive of small amounts of yellow sputum, he continues to have some shortness of breath at rest. He is wheezing. He is still experiencing posterior neck pain but it is improving. He is eating and drinking without difficulty. No nausea, vomiting, or diarrhea. His abdomen feels bloated. He denies dysuria. He had an echocardiogram yesterday that revealed mild systolic dysfuntion, LVEF 45-50%. Exam Narrative Exam Narrative: General: Middle-aged male, comfortable in bed, pleasant and cooperative, in no acute distress. HEENT: EOMI, MMM, tongue with white coating. Neck: supple, no JVD. Limited ROM due to discomfort, moves neck more freely today than yesterday. Heart: RRR, no m/r/g Lungs: Respirations even and unlabored. Rales to bilateral bases with wheezes noted throughout. GI: abdomen soft, nontender, softly distended. Normoactive bowel sounds. Extremities: No edema, clubbing, or cyanosis; Bilateral foot drop Objective Objective Clinical Data: Abnormal lab results 10/27/18 10/27/18 Range/Units 06:30 06:30 RBC 4.15 L (4.50-6.00) m/cumm Hgb 12.2 L (13.5-17.5) g/dL Hct 36.9 L (40.0-50.0) % Anion Gap 11.7 H (3-11) mmol/L Glucose 113 H (70-100) mg/dL Vital Signs Temperature 37.7 C H 10/27/18 07:20 Temperature Source Tympanic 10/27/18 07:20 Pulse 77 10/27/18 07:20 Pulse Rhythm Regular 10/27/18 00:00 Pulse 64 10/25/18 09:40 Respiratory Rate 20 10/27/18 07:20 Respiratory Effort 10/27/18 00:00 Respiratory Depth Normal 10/27/18 00:00 Respiratory Pattern Normal 10/27/18 00:00 Blood Pressure 166/97 H 10/27/18 07:20 Blood Pressure Mean 88 10/25/18 09:00 Blood Pressure Position Supine 10/24/18 18:55 Pulse Oximetry 95 10/27/18 07:20 Oxygen Delivery Method Room Air 10/27/18 07:20 Oxygen Flow Rate 0 10/27/18 07:20 Pain Level 9 10/27/18 09:55 Comment 10/26/18 22:47 Intake & Output 10/26/18 10/26/18 10/27/18 11:59 23:59 11:59 Intake Total 1000 / 2210 1210 / 2210 1340 / 1340 Output Total 1950 / 2850 900 / 2850 1600 / 1600 Balance -950 / -640 310 / -640 -260 / -260 Weight 65 kg 65.7 kg Intake: IV 1000 / 1270 270 / 1270 1340 / 1340 Oral 940 / 940 Output: Urine 1950 / 2850 900 / 2850 1600 / 1600 Other: Urine Color Yellow Yellow Yellow Urine Appearance Clear Clear Clear Urine Odor None Normal Comment PVR 40 and chargemaster specialist Gurvinder notified Stool Size Copious Large Stool Characteristics Soft Formed Formed Voiding Methods Urinal Bedside Commode Urinal Laboratory Results WBC 8.49 k/cumm (4.4-10.8) 10/27/18 06:30 RBC 4.15 m/cumm (4.50-6.00) L 10/27/18 06:30 Hgb 12.2 g/dL (13.5-17.5) L 10/27/18 06:30 Hct 36.9 % (40.0-50.0) L 10/27/18 06:30 MCV 88.9 fL (80-95) 10/27/18 06:30 MCH 29.4 pg (27.0-33.0) 10/27/18 06:30 MCHC 33.1 g/dL (32.0-36.0) 10/27/18 06:30 RDW 13.6 % (11.8-14.1) 10/27/18 06:30 Plt Count 193 x1000/uL (130-400) 10/27/18 06:30 MPV 10.5 fL (8.0-11.0) 10/27/18 06:30 Immature Gran % 0.3 10/26/18 06:20 Neutrophils % 71.4 10/26/18 06:20 Lymphocytes % 9.0 10/26/18 06:20 Monocytes % 9.5 10/26/18 06:20 Eosinophils % 9.5 10/26/18 06:20 Basophils % 0.3 10/26/18 06:20 Absolute Neutrophils 4.86 k/cumm (1.2-6.7) 10/26/18 06:20 Absolute Lymphocytes 0.61 k/cumm (1.2-3.4) L 10/26/18 06:20 Absolute Monocytes 0.65 k/cumm (0.11-0.7) 10/26/18 06:20 Absolute Eosinophils 0.65 k/cumm (0.0-0.7) 10/26/18 06:20 Absolute Basophils 0.02 k/cumm (0.0-0.2) 10/26/18 06:20 Differential Comment Manual differential 10/24/18 13:50 Atypical Lymphocytes 1 10/24/18 13:50 RBC Morphology See below 10/24/18 13:50 Sodium 141 mmol/L (136-145) 10/27/18 06:30 Potassium 4.0 mmol/L (3.5-5.1) D 10/27/18 06:30 Chloride 107 mmol/L (98-107) 10/27/18 06:30 Carbon Dioxide 22.3 mmol/L (21.0-32.0) 10/27/18 06:30 Anion Gap 11.7 mmol/L (3-11) H 10/27/18 06:30 BUN 12 mg/dL (7-18) 10/27/18 06:30 Creatinine 0.81 mg/dL (0.70-1.30) 10/27/18 06:30 Estimated GFR/1.73 m2 >= 60.00 (mL/min/1.73m2) 10/27/18 06:30 Glucose 113 mg/dL (70-100) H 10/27/18 06:30 Lactate 0.8 mmol/L (0.6-1.4) 10/25/18 08:05 Calcium 9.3 mg/dL (8.5-10.1) 10/27/18 06:30 Magnesium 1.8 mg/dL (1.8-2.4) 10/26/18 06:20 Total Bilirubin 1.0 mg/dL (0.2-1.0) 10/25/18 06:20 AST 27 U/L (15-37) 10/25/18 06:20 ALT 19 U/L (12-78) 10/25/18 06:20 Alkaline Phosphatase 234 U/L (46-116) H 10/25/18 06:20 Creatine Kinase 60 U/L (39-308) 10/24/18 13:50 Troponin I 0.03 ng/mL (0.00-0.06) 10/24/18 23:55 Total Protein 5.8 g/dL (6.4-8.2) L 10/25/18 06:20 Albumin 2.1 g/dL (3.4-5.0) L 10/25/18 06:20 TSH 0.71 uIU/mL (0.358-3.74) 10/24/18 13:50 Urine Color [place] (Yellow) 10/24/18 14:00 Urine Clarity Clear 10/24/18 14:00 Urine pH 6.0 (5-8) 10/24/18 14:00 Ur Specific [place] >= 1.030 (1.005-1.025) H 10/24/18 14:00 Urine Protein >=300 mg/dL (Negative) H 10/24/18 14:00 Urine Ketones Negative mg/dL (Negative) 10/24/18 14:00 Urine Blood Large (Negative) H 10/24/18 14:00 Urine Nitrite Negative (Negative) 10/24/18 14:00 Urine Bilirubin Small (Negative) H 10/24/18 14:00 Urine Urobilinogen 1.0 EU/dL (Up TO 0.2) H 10/24/18 14:00 Ur Leukocyte Esterase Negative (Negative) 10/24/18 14:00 Urine RBC 5-10 (0-2) H 10/24/18 14:00 Urine WBC 3-5 HPF (0-5) 10/24/18 14:00 Ur Epithelial Cells Rare HPF (Negative) 10/24/18 14:00 Urine Crystals Not Applicable 10/24/18 14:00 Urine Bacteria Many HPF (Negative) 10/24/18 14:00 Urine Mucus Not Applicable 10/24/18 14:00 Ur Culture Indicated? Yes 10/24/18 14:00 Urine Glucose Negative mg/dL (Negative) 10/24/18 14:00
[2018-10-27] MEDS: Normal Saline Flush 10 ML SYR IVP (12:34)
[2018-10-27] MEDS: Furosemide 20 MG/2 ML VIAL IVP (12:34)
--- NOTE | 2018-10-27 13:16 | PT.INTREAT ---
Date of service: 10/27/18 Time of Service: 13:16 PT Notes Inpatient Physical Therapy Treatment Note Date: 10/27/18 PRECAUTIONS: Fall precautions, seizure precautions SUBJECTIVE: Pt lying in bed watching TV, states his family has not yet brought in his AFO and shoes so he can work on gait training, agreeable to therapeutic exercise for strengthening. OBJECTIVE: PAIN: c/o neck pain, RN aware. Pt would benefit from K-pad electric moist heat for neck and shoulders for muscle relaxation and pain reduction THEREX: Pt performed therapeutic exercises for LE strengthening in supine: bilateral ankle pumps, quad sets, glute sets x 20 reps, SLR, hip abduction, heel slides, SAQ x 20 reps. Pt reported LE's felt tired after therapeutic exercise. Pt to continue therex between therapy sessions with goal to get to 20 reps for each exercise. Upper body resistance training witheld due to neck pain. ASSESSMENT: Pt with good participation with therapeutic exercises, still weak will benefit from progression of repetitions and resistance as he gets stronger. Will progress gait training once AFO and shoes arrive from home. PLAN: Progress strengthening Progress transfers Progress gait training TREATMENT CODE/TIME: 23min TPX2 1310 Laury Feliz PT
--- NOTE | 2018-10-27 13:23 | PDOC.CMPRO ---
- If Service Date Differs Date of service: 10/27/18 Time of Service: 13:23 Care Management Progress Note S/O:Miguel is lying in bed this morning, he continues to report that he would like to return home when ready. LACHO spoke with Chilo, [facility], and faxed referral back to her with instructions to contact Talya Christianson CM [facility], in regards to arranging time for trial visit. Miguel is aware of the above and assisted with completion of the referral form. LACHO spoke with Talya Christianson this afternoon in regards to Miguel wanting to return home and the potential for [place]. A: 63 y/o male admitted 10/24/18 for Tachycardia with fever, Acute Bronchitis P: ? SNF placement. CM to send referral to [facility] after conversation with admissions. Miguel could also potentially return home with continued home health as well as going to [facility] throughout the week.
--- NOTE | 2018-10-27 13:40 | CMPROGNOTE_ITS ---
- If Service Date Differs Date of service: 10/27/18 Time of Service: 13:23 Care Management Progress Note S/O:Miguel is lying in bed this morning, he continues to report that he would like to return home when ready. LACHO spoke with Chilo, [facility], and faxed referral back to her with instructions to contact Talya Christianson CM [facility], in regards to arranging time for trial visit. Miguel is aware of the above and assisted with completion of the referral form. LACHO spoke with Talya Christianson this afternoon in regards to Miguel wanting to return home and the potential for [place]. A: 63 y/o male admitted 10/24/18 for Tachycardia with fever, Acute Bronchitis P: ? SNF placement. CM to send referral to [facility] after conversation with admissions. Miguel could also potentially return home with continued home health as well as going to [facility] throughout the week.
--- NOTE | 2018-10-27 13:48 | CHAPLAIN ---
Miguel was resting in bed when I visited. He said he has had a busy morning working with PT and others, and is tired now. He talked about the possibility of going to [facility] on weekdays after her returns home, and he seemed very interested in this. He talked about returning home. He says that Evita is doing okay. It's difficult to tell what that means. Their son, Marciano, is also home. Miguel has said that Marciano doesn't do a lot to help Miguel. Miguel is a member of the [employer] and yesterday gave me permission to let them know that he is here. A friend from [employer] came to visit Miguel this morning.
[2018-10-27] MEDS: Patch Removal 1 EACH TP (18:27)
[2018-10-27] MEDS: fentaNYL 50 MCG PATCH TD (18:29)
[2018-10-27] MEDS: Atorvastatin 40 MG TAB PO (20:38)
[2018-10-27] MEDS: Baclofen 10 MG TAB PO (20:42)
[2018-10-27] MEDS: traZODone 50 MG TAB 100 MG PO (23:05)
[2018-10-28] VITALS (10 sets, daily range): BP systolic 101–130; BP diastolic 63–79; PULSE 55–66; RESP 16–18; TEMP 36.7–37.2; O2SAT 91–98
[2018-10-28] MEDS: Potassium Chloride 20 MEQ TABCR 40 MEQ PO ×2 (07:42→19:32)
[2018-10-28] MEDS: Magnesium Oxide 400 MG TAB PO (07:42)
[2018-10-28] MEDS: Isosorbide Dinitrate 10 MG TAB 20 MG PO ×2 (07:42→19:32)
[2018-10-28] MEDS: Clopidogrel 75 MG TAB PO (07:42)
[2018-10-28] MEDS: Multivitamin w/Minerals TAB 1 TAB PO (07:42)
[2018-10-28] MEDS: Nystatin 500000 UNITS/5 ML SUSP 5ML CUP PO ×3 (07:42→13:33)
[2018-10-28] MEDS: Citalopram 20 MG TAB PO (07:43)
[2018-10-28] MEDS: Gabapentin 600 MG TAB PO ×3 (07:43→19:32)
[2018-10-28] MEDS: lamoTRIgine 100 MG TAB PO ×2 (07:43→19:32)
[2018-10-28] MEDS: Pantoprazole 40 MG TABCR PO (07:43)
[2018-10-28] MEDS: Sucralfate 1 GM TAB PO ×4 (07:43→19:32)
[2018-10-28] MEDS: Apixaban 5 MG TAB PO ×2 (07:43→19:32)
[2018-10-28 07:44] LABS: HCT 37.6 % (40.0-50.0); HGB 12.3 g/dL (13.5-17.5); Mean Corp. HGB Concentration 32.7 g/dL (32.0-36.0); Mean Corpuscular Hemoglobin 29.4 pg (27.0-33.0); Mean Corpuscular Volume 89.7 fL (80-95); Mean Platelet Volume 10.8 fL (8.0-11.0); Platelet Count 213 x1000/uL (130-400); RBC 4.19 m/cumm (4.50-6.00); RBC Distribution Width 13.6 % (11.8-14.1); White Blood Cell Count 6.72 k/cumm (4.4-10.8)
--- NOTE | 2018-10-28 08:54 | OT.INTREAT ---
Date of service: 10/28/18 Time of Service: 08:15 Occupational Therapy Notes Occupational Therapy Inpatient Treatment Note Date: 10/28/18 PRECAUTIONS: Fall Precautions/ Seizure Precautions SUBJECTIVE: Pt was sitting in bed when OT arrived. Pt was agreeable to OT session. OBJECTIVE: PAIN:no c/o pain FUNCTIONAL MOBILITY Rolling L/R: (I) Supine-sit: (I) Sit-supine: (I) DRESSING: Lower Extremity: Education and training on use of sock aid for (B) LE donning of socks. Pt was able to perform this with min vc and ideal technique. EATING: (I) able to open and close containers/ bring food to mouth. ASSESSMENT: Pt is demonstrating increased (I) with dressing routine with adaptive equipment. He was receptive to education. Pt would benefit from continued skilled OT intervention for initiation of UE strengthening, education and training in bathing routine to increase (I), education and training in dressing routine with adaptive equipment. PLAN: Initiation of UE strengthening Bathing routine Dressing routine with adaptive equipment TREATMENT CODES/TIME: Self Carex1, 18 minutes (08:15) Floresita Martinez OTR/L
--- NOTE | 2018-10-28 09:51 | PDOC.CMPRO ---
- If Service Date Differs Date of service: 10/28/18 Time of Service: 09:51 Care Management Progress Note S/O: Miguel is lying in bed when this instructional writer visits this morning. He is pleasant and receptive to discussion. LACHO left a message for Talya Christianson [facility], in regards to DC planning. notified Talya that [place] referral has been faxed and F/U will be done through [place] as Miguel will be returning home. LACHO also left a VM on the [facility] referral line notifying that Miguel may be discharged this weekend and will need a resumption of his home health RN/PT/OT/DEVELOPER PROGRAMMER ANALYST services. Miguel has previously been approved for [facility] services, however Talya Christianson [facility], states that services will not be able to be implemented until after the first week of November which Miguel is aware of. A: 63 y/o male admitted 10/24/18 for Tachycardia with fever, Acute Bronchitis P: Miguel will return home with a resumption of home health RN/PT/OT/DEVELOPER PROGRAMMER ANALYST services. Referral has been completed and faxed to [facility] on 10/27/18 and VM has been left for Talya Christianson [facility], in regards to follow through with this services. Miguel will transport via private vehicle vs. RCT when medically cleared.
--- NOTE | 2018-10-28 10:04 | CMPROGNOTE_ITS ---
- If Service Date Differs Date of service: 10/28/18 Time of Service: 09:51 Care Management Progress Note S/O: Miguel is lying in bed when this publicity writer visits this morning. He is pleasant and receptive to discussion. LACHO left a message for Talya Christianson [facility], in regards to DC planning. notified Talya that [place] referral has been faxed and F/U will be done through [place] as Miguel will be returning home. LACHO also left a VM on the [facility] referral line notifying that Miguel may be discharged this weekend and will need a resumption of his home health RN/PT/OT/BUS DRIVER services. Miguel has previously been approved for [facility] services, however Talya Christianson [facility], states that services will not be able to be implemented until after the first week of November which Miguel is aware of. A: 63 y/o male admitted 10/24/18 for Tachycardia with fever, Acute Bronchitis P: Miguel will return home with a resumption of home health RN/PT/OT/BUS DRIVER services. Referral has been completed and faxed to [place] on 10/27/18 and VM has been left for Talya Christianson [facility], in regards to follow through with this services. Miguel will transport via private vehicle vs. RCT when medically cleared.
[2018-10-28] MEDS: Mometasone 220 MCG 14 DOSE INHALER 1 PUFF IH ×2 (12:02→19:31)
--- NOTE | 2018-10-28 14:08 | PT.INTREAT ---
Date of service: 10/28/18 Time of Service: 14:08 PT Notes Inpatient Physical Therapy Treatment Note Date: 10/28/18 PRECAUTIONS: Fall SUBJECTIVE: Miguel states that he is feeling much better today, he reports that the K-pad has really helped decrease his neck pain and that he is not feeling as short of breath today. OBJECTIVE: PAIN: No c/o pain BED MOBILITY/TRANSFERS/GAIT: Hold, no AFO/sneakers yet. THEREX: Patient completed a LE and UE strengthening program, as per flow sheet. He was able to tolerate the addition of shoulder flexion, horizontal abduction, and elbow flexion, with minimal c/o discomfort in left UE. ASSESSMENT: Patient tolerated session with increased fatigue. He was able to tolerate a progression in ther ex. PLAN: Continue with PT's POC TREATMENT CODE/TIME: 23 minutes; TPx2
--- NOTE | 2018-10-28 15:11 | PGE_ITS ---
Date of Service Date of service: 10/28/18 Time of Service: 15:05 Assessment and Plan (1) PSVT (paroxysmal supraventricular tachycardia): Current visit: Yes Status: Resolved Likely part of the SIRS when the patient first presented. This has resolved with IV hydration, IV rocephin and beta blockers. Blood cultures have yielded no growth at 72 hours. Echocardiogram shows little change from 2 months ago, mild systolic dysfunction, LVEF 45-50%, mild aortic regurgitation, LA mildly dilated, increased pulmonary systolic pressure at 40-45 mmHg. Has been in NSR on telemetry with rates in the 70s and 80s, no epidoses of sinus tachycardia overnight last night. Continue to monitor on telemetry. No ACS by troponins and no evidence of a recurrent PE on CTA. Decrease beta duarte to BID dosing with hold parameters. He may not require the beta duarte long-term. Continue to monitor on telemetry overnight while metoprolol dose is adjusted. (2) CHF (congestive heart failure): Current visit: Yes Status: Chronic Mild systolic dysfunction noted on echocardiogram, LVEF 45-50%. He received IV lasix bolus yesterday with improvement in respiratory status, weight is also down 2.6 kg. Continue to monitor fluid status and renal function. (3) Acute bronchitis: Current visit: Yes Status: Acute No evidence of PNA on CT or CXR, but the patient did have a cough productive of yellow sputum. Flu swab negative. Sputum culture has yielded normal daniel and yeast. Continue rocephin. (4) Dysuria: Current visit: Yes Status: Acute No evidence of UTI by UA/C&S. Dysuria resolved. (5) COPD (chronic obstructive pulmonary disease): Current visit: No Status: Chronic No acute exacerbation. Continue to treat bronchitis and monitor respiratory status. (6) CAD (coronary artery disease): Current visit: No Status: Chronic Stable. No evidence of ACS on this admission. (7) Dehydration: Current visit: Yes Status: Acute Improved. Eating and drinking without difficulty. (8) Left hemiparesis: Current visit: No Status: Chronic Chronic. PT/OT consulted. (9) Thrush, oral: Current visit: Yes Status: Acute Continue Nystatin swish and swallow, currently day #4 of treatment. (10) Pulmonary embolism: Current visit: No Status: Chronic Chronically on Apixiban. Continue anticoagulation. (11) DVT prophylaxis: Current visit: No Status: Acute Continue chronic Apixiban. (12) Discharge planning issues: Current visit: No Status: Acute He is a FULL code. Care management is working on a safe discharge plan. He will likely return home with services and possibly attend Adult day services. This case was discussed with Dr. Felix who is in agreement. Subjective Interval history since last seen: Miguel is a 63 year old male with a past medical history significant for TBI, CVA, left hemiparesis, chronic pain, CAD, and PE, who is currently being treated for bronchitis, PSVT with SIRS. SIRS has resolved. He reports feeling overall better today. He is no longer short of breath, his cough has improved, he does not feel wheezy. He continues to report posterior neck pain that is improving, his neck range of motion has improved. He is eating and drinking well, no nausea, vomiting, or diarrhea. He no longer feels bloated. He continues to deny dysuria. He has been monitored on telemetry, he has been in NSR, no tacycardia. Nursing reports that his morning dose of metoprolol was held due to bradycardia. Exam Narrative Exam Narrative: General: Middle-aged male, sitting up in the recliner, pleasant and cooperative, in no acute distress. HEENT: EOMI, MMM, tongue with white coating. Neck: supple, no JVD. improving ROM, moves neck more freely today, mild tenderness on palpation of posterior neck. Heart: RRR, no m/r/g Lungs: Respirations even and unlabored. Few scattered wheezes noted throughout. No rales today. GI: abdomen soft, nontender, non-distended. Normoactive bowel sounds. Extremities: No edema, clubbing, or cyanosis, + foot drop Objective Objective Clinical Data: Abnormal lab results 10/28/18 Range/Units 06:15 RBC 4.19 L (4.50-6.00) m/cumm Hgb 12.3 L (13.5-17.5) g/dL Hct 37.6 L (40.0-50.0) % Vital Signs Temperature 36.7 C 10/28/18 11:28 Temperature Source Tympanic 10/28/18 11:28 Pulse 57 L 10/28/18 11:28 Pulse Rhythm Regular 10/28/18 07:35 Pulse 64 10/25/18 09:40 Respiratory Rate 16 10/28/18 11:28 Respiratory Effort 10/28/18 07:35 Respiratory Depth Normal 10/28/18 07:35 Respiratory Pattern Normal 10/28/18 07:35 Blood Pressure 116/67 10/28/18 11:28 Blood Pressure Mean 88 10/25/18 09:00 Blood Pressure Position Supine 10/24/18 18:55 Pulse Oximetry 95 10/28/18 11:28 Oxygen Delivery Method Room Air 10/28/18 11:28 Oxygen Flow Rate 0 10/28/18 11:28 Pain Level 0 10/28/18 11:28 Comment 10/28/18 03:20 Intake & Output 10/27/18 10/28/18 10/28/18 23:59 11:59 23:59 Intake Total 420 / 2460 840 / 1080 240 / 1080 Output Total 1525 / 3125 1275 / 1600 325 / 1600 Balance -1105 / -665 -435 / -520 -85 / -520 Weight 63.1 kg Intake: Oral 420 / 1120 840 / 1080 240 / 1080 Output: Urine 1525 / 3125 1275 / 1600 325 / 1600 Other: Urine Color Yellow Yellow Yellow [employer] Urine Appearance Clear Clear Clear Urine Odor Normal Stool Size Large Stool Characteristics Formed Brown Voiding Methods Urinal Urinal Urinal Laboratory Results WBC 6.72 k/cumm (4.4-10.8) 10/28/18 06:15 RBC 4.19 m/cumm (4.50-6.00) L 10/28/18 06:15 Hgb 12.3 g/dL (13.5-17.5) L 10/28/18 06:15 Hct 37.6 % (40.0-50.0) L 10/28/18 06:15 MCV 89.7 fL (80-95) 10/28/18 06:15 MCH 29.4 pg (27.0-33.0) 10/28/18 06:15 MCHC 32.7 g/dL (32.0-36.0) 10/28/18 06:15 RDW 13.6 % (11.8-14.1) 10/28/18 06:15 Plt Count 213 x1000/uL (130-400) 10/28/18 06:15 MPV 10.8 fL (8.0-11.0) 10/28/18 06:15 Immature Gran % 0.3 10/26/18 06:20 Neutrophils % 71.4 10/26/18 06:20 Lymphocytes % 9.0 10/26/18 06:20 Monocytes % 9.5 10/26/18 06:20 Eosinophils % 9.5 10/26/18 06:20 Basophils % 0.3 10/26/18 06:20 Absolute Neutrophils 4.86 k/cumm (1.2-6.7) 10/26/18 06:20 Absolute Lymphocytes 0.61 k/cumm (1.2-3.4) L 10/26/18 06:20 Absolute Monocytes 0.65 k/cumm (0.11-0.7) 10/26/18 06:20 Absolute Eosinophils 0.65 k/cumm (0.0-0.7) 10/26/18 06:20 Absolute Basophils 0.02 k/cumm (0.0-0.2) 10/26/18 06:20 Differential Comment Manual differential 10/24/18 13:50 Atypical Lymphocytes 1 10/24/18 13:50 RBC Morphology See below 10/24/18 13:50 Sodium 141 mmol/L (136-145) 10/27/18 06:30 Potassium 4.0 mmol/L (3.5-5.1) D 10/27/18 06:30 Chloride 107 mmol/L (98-107) 10/27/18 06:30 Carbon Dioxide 22.3 mmol/L (21.0-32.0) 10/27/18 06:30 Anion Gap 11.7 mmol/L (3-11) H 10/27/18 06:30 BUN 12 mg/dL (7-18) 10/27/18 06:30 Creatinine 0.81 mg/dL (0.70-1.30) 10/27/18 06:30 Estimated GFR/1.73 m2 >= 60.00 (mL/min/1.73m2) 10/27/18 06:30 Glucose 113 mg/dL (70-100) H 10/27/18 06:30 Lactate 0.8 mmol/L (0.6-1.4) 10/25/18 08:05 Calcium 9.3 mg/dL (8.5-10.1) 10/27/18 06:30 Magnesium 1.8 mg/dL (1.8-2.4) 10/26/18 06:20 Total Bilirubin 1.0 mg/dL (0.2-1.0) 10/25/18 06:20 AST 27 U/L (15-37) 10/25/18 06:20 ALT 19 U/L (12-78) 10/25/18 06:20 Alkaline Phosphatase 234 U/L (46-116) H 10/25/18 06:20 Creatine Kinase 60 U/L (39-308) 10/24/18 13:50 Troponin I 0.03 ng/mL (0.00-0.06) 10/24/18 23:55 Total Protein 5.8 g/dL (6.4-8.2) L 10/25/18 06:20 Albumin 2.1 g/dL (3.4-5.0) L 10/25/18 06:20 TSH 0.71 uIU/mL (0.358-3.74) 10/24/18 13:50 Urine Color [place] (Yellow) 10/24/18 14:00 Urine Clarity Clear 10/24/18 14:00 Urine pH 6.0 (5-8) 10/24/18 14:00 Ur Specific [place] >= 1.030 (1.005-1.025) H 10/24/18 14:00 Urine Protein >=300 mg/dL (Negative) H 10/24/18 14:00 Urine Ketones Negative mg/dL (Negative) 10/24/18 14:00 Urine Blood Large (Negative) H 10/24/18 14:00 Urine Nitrite Negative (Negative) 10/24/18 14:00 Urine Bilirubin Small (Negative) H 10/24/18 14:00 Urine Urobilinogen 1.0 EU/dL (Up TO 0.2) H 10/24/18 14:00 Ur Leukocyte Esterase Negative (Negative) 10/24/18 14:00 Urine RBC 5-10 (0-2) H 10/24/18 14:00 Urine WBC 3-5 HPF (0-5) 10/24/18 14:00 Ur Epithelial Cells Rare HPF (Negative) 10/24/18 14:00 Urine Crystals Not Applicable 10/24/18 14:00 Urine Bacteria Many HPF (Negative) 10/24/18 14:00 Urine Mucus Not Applicable 10/24/18 14:00 Ur Culture Indicated? Yes 10/24/18 14:00 Urine Glucose Negative mg/dL (Negative) 10/24/18 14:00
--- NOTE | 2018-10-28 15:35 | W.INDIABCONS ---
Date of service: 10/28/18 Time of Service: 15:42 Diabetes Inpatient Consult DESCRIPTION/ASSESSMENT: Appreciate diabetes consult for Mr. Pérez who is hospitalized with heart and urinary considerations. His mobility is also impaired secondary to stroke. No A1c available. BMI 25 Mr. Pérez has blood sugars here 94-128 without medication or need for insulin correction despite infection process. He had 53 grams carbohydrate at breakfast today. INTERVENTION: No intervention as his blood sugars do not indicate signs of diabetes. Given his impairment and his excellent diabetes management, no intervention suggested. PLAN: Will follow blood sugars. Time Spent in Nutritional Counseling and Treatment: TAZ
[2018-10-28] MEDS: Atorvastatin 40 MG TAB PO (19:32)
[2018-10-28] MEDS: Metoprolol 12.5 MG TAB PO (19:32)
[2018-10-28] MEDS: Normal Saline Flush 10 ML SYR IVP (21:52)
[2018-10-28] MEDS: traZODone 50 MG TAB 100 MG PO (21:52)
[2018-10-29] VITALS (7 sets, daily range): BP systolic 108–130; BP diastolic 68–78; PULSE 52–63; RESP 16–18; TEMP 36.6–37.1; O2SAT 95–97
[2018-10-29 07:16] LABS: Anion Gap 9.4 mmol/L (3-11); BUN 19 mg/dL (7-18); CO2 24.6 mmol/L (21.0-32.0); CREATININE 1.02 mg/dL (0.70-1.30); Calcium 9.8 mg/dL (8.5-10.1); Chloride 102 mmol/L (98-107); Glucose 110 mg/dL (70-100); Potassium 5.1 mmol/L (3.5-5.1); Sodium 136 mmol/L (136-145)
[2018-10-29] MEDS: Mometasone 220 MCG 14 DOSE INHALER 1 PUFF IH (07:33)
[2018-10-29] MEDS: Potassium Chloride 20 MEQ TABCR 40 MEQ PO (08:32)
[2018-10-29] MEDS: Metoprolol 12.5 MG TAB PO (08:32)
[2018-10-29] MEDS: Gabapentin 600 MG TAB PO (08:32)
[2018-10-29] MEDS: Magnesium Oxide 400 MG TAB PO (08:33)
[2018-10-29] MEDS: Multivitamin w/Minerals TAB 1 TAB PO (08:33)
[2018-10-29] MEDS: Sucralfate 1 GM TAB PO ×2 (08:33→11:57)
[2018-10-29] MEDS: Isosorbide Dinitrate 10 MG TAB 20 MG PO (08:33)
[2018-10-29] MEDS: Clopidogrel 75 MG TAB PO (08:33)
[2018-10-29] MEDS: lamoTRIgine 100 MG TAB PO (08:33)
[2018-10-29] MEDS: Pantoprazole 40 MG TABCR PO (08:33)
[2018-10-29] MEDS: Citalopram 20 MG TAB PO (08:33)
[2018-10-29] MEDS: Apixaban 5 MG TAB PO (08:34)
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
--- NOTE | 2018-10-29 11:18 | PDOC.CMDIS ---
- If Service Date Differs Date of service: 10/29/18 Time of Service: 11:18 LACE Index Scoring Tool - Questions: Length of Stay (in days): 4 - 6 Acuity (Admit via E.D.?): Yes Comorbidities: Congestive Heart Failure, Chronic Pulmonary Disease E.D. Visits: 11 - Answers: Total Score: 16 Risk of Readmission: High Risk Care Management Discharge Reason for Hospitalization: Tachycardia, fever, dehydration Discharge Plan: Miguel will discharge home when medically ready. Patient will resume home health services and follow up with his PCP. Miguel will transport with his son, Marciano. Patient/Family Education Needs: Discharge education, any limitations, and follow up plan of care. Ask Me Three discussion. Services Needed at Discharge: Home Health Care Services (RN,PT/OT, [employer] resumption of services with [facility])
--- NOTE | 2018-10-29 11:56 | PDOC.HHF2F ---
1. Encounter Date and Reason I certify that JUNAID ARIAS was seen by Jeff Munoz on 10/29/18 and that I had a [id number] encounter with this patient that meets the physician face to face encounter requirements. Order currently is for resumption of home health services for PT/OT, Nursing, and DEAN as previous. 2. Clinical Findings Supporting Skilled Need and Homebound Status I certify that home health services are medically necessary, include either intermittent penitentiary and/or physical/speech therapy, and that this patient is homebound in that absences from the home require considerable and taxing effort and are infrequent or of short duration, or are attributable to the need to receive medical care. [X] (a) Attached documentation from encounter provides clinical findings supporting skilled need and homebound status (including what assistance patient requires to leave the home). The encounter with the patient was in whole, or in part, for the following medical condition, which is the primary reason for home health care: TACHYCARDIA WITH FEVER, DEHYDRATION Fpc: Please resume Care as prior. Physical Therapy: Please resume Care as prior. Speech Therapy: Please resume Care as prior. Bridge Construction Inspector: Please resume Care as prior. Homebound: 3. Certification and Authentication I certify that I composed the above information based on my clinical judgement relating to this patient's medical condition and, if applicable, clinical findings communicated to me by the NPP or inpatient physician who performed the Home Health Referral. All further orders will be obtained through (Community Based Physician - PCP)
--- NOTE | 2018-10-29 11:59 | HHF2F_ITS ---
1. Encounter Date and Reason I certify that JUNAID ARIAS was seen by Jeff Munoz on 10/29/18 and that I had a [id number] encounter with this patient that meets the physician face to face encounter requirements. Order currently is for resumption of home health services for PT/OT, Nursing, and WATCH REPAIR PERSON as previous. 2. Clinical Findings Supporting Skilled Need and Homebound Status I certify that home health services are medically necessary, include either intermittent senior care and/or physical/speech therapy, and that this patient is homebound in that absences from the home require considerable and taxing effort and are infrequent or of short duration, or are attributable to the need to receive medical care. [X] (a) Attached documentation from encounter provides clinical findings supporting skilled need and homebound status (including what assistance patient requires to leave the home). The encounter with the patient was in whole, or in part, for the following medical condition, which is the primary reason for home health care: TACHYCARDIA WITH FEVER, DEHYDRATION Usp: Please resume Care as prior. Physical Therapy: Please resume Care as prior. Speech Therapy: Please resume Care as prior. Angle Shearer: Please resume Care as prior. Homebound: 3. Certification and Authentication I certify that I composed the above information based on my clinical judgement relating to this patient's medical condition and, if applicable, clinical findings communicated to me by the NPP or inpatient physician who performed the Home Health Referral. All further orders will be obtained through (Community Based Physician - PCP)
--- NOTE | 2018-10-29 12:03 | PT.INTREAT ---
Date of service: 10/29/18 Time of Service: 12:03 PT Notes Inpatient Physical Therapy Treatment Note Date: 10/29/18 PRECAUTIONS: Fall SUBJECTIVE: Miguel states that he continues to feel better, that he believes he is going home this afternoon, and feels that he will be able to function safely at home. OBJECTIVE: PAIN: Patient complains of right knee pain with gait training BED MOBILITY/TRANSFERS Sit-stand: SBA Stand-sit: SBA GAIT Assistive Device: FWW Weight bearing: WBAT Assist: CGA Distance: 60' x2 Deviation: Right knee pain THEREX: Patient completed several exercises in a seated position for lower extremity strengthening, as per flow sheet. ASSESSMENT: Patient tolerated session well with complaints of right knee pain with gait training. Patient was able to tolerate a progression in gait distance with FWW support and CGA. Patient would benefit from continued strengthening as well as gait and transfer training for improved mobility and decreased need for assistance with functional daily tasks. PLAN: As per primary PT TREATMENT CODE/TIME: 25 minutes; TA/TP
--- NOTE | 2018-10-29 12:38 | CMDISCH_ITS ---
- If Service Date Differs Date of service: 10/29/18 Time of Service: 11:18 LACE Index Scoring Tool - Questions: Length of Stay (in days): 4 - 6 Acuity (Admit via E.D.?): Yes Comorbidities: Congestive Heart Failure, Chronic Pulmonary Disease E.D. Visits: 11 - Answers: Total Score: 16 Risk of Readmission: High Risk Care Management Discharge Reason for Hospitalization: Tachycardia, fever, dehydration Discharge Plan: Miguel will discharge home when medically ready. Patient will resume home health services and follow up with his PCP. Miguel will transport with his son, Marciano. Patient/Family Education Needs: Discharge education, any limitations, and follow up plan of care. Ask Me Three discussion. Services Needed at Discharge: Home Health Care Services (RN,PT/OT, EXECUTIVE MEETING MANAGER resumption of services with [facility])
[2018-10-29] MEDS: Normal Saline Flush 10 ML SYR IVP (13:17)
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
== END 2018-10-29 14:08 | disposition home health service (06) | DRG 309 ==
LOC: ER 17:21 → ICU 18:46 → MS 10-29 11:23 → ICU 11-04 12:58
PROVIDERS: Internal Medicine; Nurse Practitioner; Admitting Provider Family Medicine; Emergency Provider Student in an Organized Health Care Education/Training Program; PCP Nurse Practitioner; Visit Provider Internal Medicine
DX: I47.1 Supraventricular tachycardia (principal); J44.0 Chronic obstructive pulmonary disease with (acute) lower respiratory infection; B37.0 Candidal stomatitis; I69.354 Hemiplegia and hemiparesis following cerebral infarction affecting left non-dominant side; E87.1 Hypo-osmolality and hyponatremia; R56.1 Post traumatic seizures; R65.10 Systemic inflammatory response syndrome (SIRS) of non-infectious origin without acute organ dysfunction; I50.22 Chronic systolic (congestive) heart failure; J20.9 Acute bronchitis, unspecified; R30.0 Dysuria; Z86.711 Personal history of pulmonary embolism; Z79.01 Long term (current) use of anticoagulants; Z87.820 Personal history of traumatic brain injury; I25.2 Old myocardial infarction; E86.0 Dehydration; R50.9 Fever, unspecified; I69.320 Aphasia following cerebral infarction; G89.0 Central pain syndrome; M54.2 Cervicalgia
CPT/HCPCS: 36415; 71275; 80048; 80053; 82550; 85027; 87040; 87077; 87449; 93005; 93225; 93306; 94640; 96361; 96365; 96366; 97110; 97163; 97167; 97530; 97535; 99223; 99232; 99239; 99285; 71046; 81003; 81015; 83605; 83735; 84443; 84484; 85025; 87070; 87086; 87205; 93010; J0696; J1941; J3475; J3490

== ENCOUNTER → 2018-12-21 10:05 | Outpatient (BNVA) | payer MEDICARE, MEDICAID, SELFPAY | PROVIDERS: PCP Nurse Practitioner; Visit Provider Psychiatry & Neurology Neurology | DX: Z87.820 Personal history of traumatic brain injury (principal); I63.30 Cerebral infarction due to thrombosis of unspecified cerebral artery; G40.909 Epilepsy, unspecified, not intractable, without status epilepticus; J44.9 Chronic obstructive pulmonary disease, unspecified; Z87.891 Personal history of nicotine dependence; I10 Essential (primary) hypertension | CPT/HCPCS: 99214 ==

== ENCOUNTER 2018-12-24 12:27 | Emergency (ER) | payer MEDICARE, MEDICAID, SELFPAY ==
[2018-12-24] VITALS (29 sets, daily range): BP systolic 106–163; BP diastolic 70–105; PULSE 67–88; RESP 4–27; TEMP 37.1–38.2; O2SAT 93–99
--- NOTE | 2018-12-24 12:36 | DI.RAD_ITS ---
SYMPTOM/DIAGNOSIS: COUGH, CONGESTION, H/O COPD PA AND LATERAL CHEST: Comparison is made with 10/24/18. The heart size is normal. The aorta appears normal in diameter. The lungs are clear. No infiltrate or effusion is seen. IMPRESSION: No acute abnormality.
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
[2018-12-24 12:56] LABS: Lactate-non-spesis 1.7 mmol/l (0.6-1.4)
[2018-12-24] MEDS: Normal Saline 1,000 ML 100 ML IV (12:56)
[2018-12-24] MEDS: methylPREDNISolone SUCC 125 MG VIAL IVP (12:59)
[2018-12-24] MEDS: Albuterol/Ipratropium 3 ML UPD VIAL UPD (13:01)
[2018-12-24 13:02] LABS: Abs Immature Grans 0.03 k/cumm (0.0-0.09); Absolute Basophil Count 0.02 k/cumm (0.0-0.2); Absolute Eosinophil Count 0.24 k/cumm (0.0-0.7); Absolute Lymphocyte Count 1.14 k/cumm (1.2-3.4); Absolute Monocyte Count 1.42 k/cumm (0.11-0.7); Absolute Neutrophil Count 8.78 k/cumm (1.2-6.7); Basophils % 0.2; Eosinophils % 2.1; HCT 46.1 % (40.0-50.0); HGB 15.1 g/dL (13.5-17.5); Immature Grans % 0.3; Lymphocytes % 9.8; Mean Corp. HGB Concentration 32.8 g/dL (32.0-36.0); Mean Corpuscular Hemoglobin 28.4 pg (27.0-33.0); Mean Corpuscular Volume 86.8 fL (80-95); Mean Platelet Volume 10.3 fL (8.0-11.0); Monocytes % 12.2; Neutrophils % 75.4; Platelet Count 148 x1000/uL (130-400); RBC 5.31 m/cumm (4.50-6.00); RBC Distribution Width 14.9 % (11.8-14.1); White Blood Cell Count 11.64 k/cumm (4.4-10.8)
[2018-12-24 13:08] LABS: Prothrombin Time 9.5 sec (9.3-11.0)
[2018-12-24 13:32] LABS: ALT 22 U/L (12-78); AST 16 U/L (15-37); Albumin 3.4 g/dL (3.4-5.0); Alkaline Phosphatase 140 U/L (46-116); Anion Gap 9.1 mmol/L (3-11); BUN 16 mg/dL (7-18); Bilirubin, Total 0.8 mg/dL (0.2-1.0); CO2 27.9 mmol/L (21.0-32.0); Chloride 101 mmol/L (98-107); Glucose 113 mg/dL (70-100); Potassium 4.6 mmol/L (3.5-5.1); Sodium 138 mmol/L (136-145); Total Protein 7.8 g/dL (6.4-8.2)
--- NOTE | 2018-12-24 13:43 | DI.VRAD_ITS ---
EXAM: XR Chest, 2 Views EXAM DATE/TIME: 12/24/2018 1:30 PM CLINICAL HISTORY: 63 years old, male; Signs and symptoms; Cough; Patient HX: PT unable to stand, l sided stroke 8 years ago TECHNIQUE: XR of the chest, 2 views. COMPARISON: CR XR CHEST 2V PA LATERAL 10/24/2018 2:19 PM FINDINGS: The cardiomediastinal silhouette and pulmonary vasculature are within normal limits. The lungs are clear. No pleural effusion or pneumothorax is identified. IMPRESSION: No acute process. Dictated and Authenticated by: Kristofer Smith MD. Ordering:SYEDA Escamilla MD
[2018-12-24] MEDS: Ketorolac 30 MG/ML VIAL 15 MG IVP (13:51)
[2018-12-24] MEDS: Doxycycline Hyclate 100 MG CAP PO (13:52)
[2018-12-24] MEDS: Acetaminophen 500 MG TAB 1000 MG PO (14:04)
--- NOTE | 2018-12-26 08:32 | CMPROGNOTE_ITS ---
Care Management Progress Note 12/26-Dr. Coffman requested assistance with a PCP ([place]) f/u in 7-10 days for COPD Exacerbation. Referral faxed to [facility] this am.
== END 2018-12-24 14:56 | disposition home or self-care (01) ==
PROVIDERS: Emergency Provider Emergency Medicine; PCP Nurse Practitioner
DX: J44.0 Chronic obstructive pulmonary disease with (acute) lower respiratory infection (principal); J20.9 Acute bronchitis, unspecified; J44.1 Chronic obstructive pulmonary disease with (acute) exacerbation; I10 Essential (primary) hypertension
CPT/HCPCS: 36415; 80053; 87449; 93005; 94640; 96374; 96375; 99285; 71046; 83605; 85025; 85610; 93010; 99284; J1885; J2930; J7620

== ENCOUNTER 2019-02-14 14:43 | Emergency (ER) | payer MEDICARE, SELFPAY ==
[2019-02-14] VITALS (19 sets, daily range): BP systolic 127–154; BP diastolic 59–120; PULSE 67–79; RESP 7–29; TEMP 37; O2SAT 92–98
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
[2019-02-14] MEDS: Albuterol/Ipratropium 3 ML UPD VIAL UPD (15:00)
[2019-02-14 15:06] LABS: Abs Immature Grans 0.01 k/cumm (0.0-0.09); Absolute Basophil Count 0.06 k/cumm (0.0-0.2); Absolute Eosinophil Count 0.39 k/cumm (0.0-0.7); Absolute Lymphocyte Count 1.73 k/cumm (1.2-3.4); Absolute Monocyte Count 0.72 k/cumm (0.11-0.7); Absolute Neutrophil Count 2.63 k/cumm (1.2-6.7); Basophils % 1.1; HCT 40.8 % (40.0-50.0); HGB 13.6 g/dL (13.5-17.5); Immature Grans % 0.2; Lymphocytes % 31.2; Mean Corp. HGB Concentration 33.3 g/dL (32.0-36.0); Mean Corpuscular Hemoglobin 28.9 pg (27.0-33.0); Mean Corpuscular Volume 86.6 fL (80-95); Mean Platelet Volume 10.1 fL (8.0-11.0); Neutrophils % 47.5; Platelet Count 142 x1000/uL (130-400); RBC 4.71 m/cumm (4.50-6.00); RBC Distribution Width 15.6 % (11.8-14.1); White Blood Cell Count 5.54 k/cumm (4.4-10.8)
[2019-02-14] MEDS: predniSONE 20 MG TAB 60 MG PO (15:06)
[2019-02-14] MEDS: Acetaminophen 500 MG TAB (15:15)
[2019-02-14 15:31] LABS: ALT 24 U/L (12-78); AST 17 U/L (15-37); Albumin 3.8 g/dL (3.4-5.0); Alkaline Phosphatase 120 U/L (46-116); Anion Gap 12.7 mmol/L (3-11); BUN 14 mg/dL (7-18); Bilirubin, Total 0.5 mg/dL (0.2-1.0); CO2 25.3 mmol/L (21.0-32.0); CREATININE 1.25 mg/dL (0.70-1.30); Calcium 8.9 mg/dL (8.5-10.1); Chloride 101 mmol/L (98-107); Estimated GFR 58.34 (mL/min/1.73m2); Glucose 96 mg/dL (70-100); Magnesium 1.8 mg/dL (1.8-2.4); NT-proBNP 137 pg/mL; Potassium 3.9 mmol/L (3.5-5.1); Sodium 139 mmol/L (136-145); Total Protein 6.6 g/dL (6.4-8.2)
--- NOTE | 2019-02-14 15:32 | DI.RAD_ITS ---
SYMPTOMS/DIAGNOSIS: COUGH AP PORTABLE CHEST: The lungs are free of infiltrate. The heart is not enlarged. The hilar structures, mediastinum and tracheal air column are intact. SUMMARY: No evidence of acute cardiopulmonary disease.
[2019-02-14 15:33] LABS: Troponin I < 0.02 ng/mL (0.00-0.06)
[2019-02-14] MEDS: levoFLOXacin 500 MG, levoFLOXacin 250 MG 750 MG PO (15:55)
--- NOTE | 2019-02-14 16:08 | PDOC.ERCMPRO ---
Care Management Progress Note LACHO coordinated W/C transport for Miguel at ED request via [facility] W/C van with Misti. Misti reported bung driver would arrive at 1630. Miguel will be permitted to use [facility] W/C. Misti reported to let the bung driver know to return the W/C prior to going home for the day. LACHO notified Deysi HOLLY and Kiara; HAILEY of the above.
--- NOTE | 2019-02-14 16:10 | CMPROGNOTE_ITS ---
Care Management Progress Note LACHO coordinated W/C transport for Miguel at ED request via [facility] W/C van with Misti. Misti reported stage driver would arrive at 1630. Miguel will be permitted to use [facility] W/C. Misti reported to let the stage driver know to return the W/C prior to going home for the day. LACHO notified Deysi HOLLY and Kiara; HAILEY of the above.
== END 2019-02-14 16:10 | disposition home or self-care (01) ==
LOC: ER 16:16
PROVIDERS: Emergency Provider Emergency Medicine; PCP Nurse Practitioner
DX: J44.1 Chronic obstructive pulmonary disease with (acute) exacerbation (principal)
CPT/HCPCS: 36415; 80053; 87449; 93005; 94640; 99285; 71045; 83735; 83880; 84484; 85025; 93010; J7512; J7620

== ENCOUNTER 2019-03-23 02:13 | Outpatient (CLI) | payer MEDICARE, MEDICAID, SELFPAY | END 2019-03-23 02:33 | PROVIDERS: PCP Nurse Practitioner; Visit Provider Nurse Practitioner | DX: R69 Illness, unspecified (principal) ==

== ENCOUNTER 2019-04-05 01:42 | Outpatient (CLI) | payer MEDICARE, SELFPAY ==
--- NOTE | 2019-04-05 | PFT_ITS ---
PULMONARY FUNCTION TEST REPORT Patient - Miguel Pérez DATE OF SERVICE April 05, 2019 REQUESTING PROVIDER Aissatou Briggs NP INTERPRETATION OF STUDY Spirometry shows no evidence of obstructive airways disease. No bronchodilator response. LUNG VOLUMES - Lung volumes show no evidence of restriction. DIFFUSION CAPACITY- Normal. AIRWAY RESISTANCE - Normal. IMPRESSION Normal pulmonary function study. Clinical correlation recommended. When this study was compared to previous one from 01/20/11 and 05/11/14, the patient has a gradual decline in FVC-1 with a total of 610 cc. FEV1 also had a gradual decline of a total of 550 cc. Clinical correlation recommended. Corine Mcnamara M.D. DANE/ T- 04/06/19
[2019-04-05] MEDS: Inhaler, Assist Device 1 EACH MC (15:50)
[2019-04-05] MEDS: Albuterol HFA 18 GM 200 PUFF INH IH (15:50)
== END 2019-04-05 02:02 ==
PROVIDERS: PCP Nurse Practitioner; Visit Provider Nurse Practitioner
DX: J44.9 Chronic obstructive pulmonary disease, unspecified (principal); R55 Syncope and collapse; Z87.891 Personal history of nicotine dependence
CPT/HCPCS: 94060; 94150; 94726; 94729

== ENCOUNTER 2019-04-10 10:42 | Emergency (ER) | payer MEDICARE, SELFPAY ==
[2019-04-10 10:47] VITALS: BP 145/67; PULSE 58; RESP 14; TEMP 36.8; O2SAT 96
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
== END 2019-04-10 11:22 | disposition home or self-care (01) ==
LOC: ER 11:22
PROVIDERS: Emergency Provider Student in an Organized Health Care Education/Training Program; PCP Nurse Practitioner
DX: S61.211A Laceration without foreign body of left index finger without damage to nail, initial encounter (principal); W26.0XXA Contact with knife, initial encounter; I10 Essential (primary) hypertension; J44.9 Chronic obstructive pulmonary disease, unspecified
CPT/HCPCS: 12001

== ENCOUNTER 2019-05-30 09:17 | Emergency (ER) | payer MEDICARE, SELFPAY ==
[2019-05-30] VITALS (20 sets, daily range): BP systolic 116–129; BP diastolic 55–81; PULSE 71–112; RESP 4–26; TEMP 37.2–37.4; O2SAT 91–100
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
[2019-05-30] MEDS: Albuterol/Ipratropium 3 ML UPD VIAL UPD (09:46)
[2019-05-30] MEDS: methylPREDNISolone SUCC 125 MG VIAL IVP (09:46)
[2019-05-30] MEDS: MAGNESIUM SULFATE 2 GM/50 ML BAG IVPB (09:46)
--- NOTE | 2019-05-30 09:53 | DI.RAD_ITS ---
SYMPTOM/DIAGNOSIS: SHORTNESS OF BREATH CHEST X-RAY: Portable AP view. Comparison 12/24/18 The heart size and pulmonary vasculature are within normal limits given the projection. The lungs show no focal consolidating infiltrates, effusions or pneumothoraces. The bones are intact. IMPRESSION: No acute pulmonary process.
[2019-05-30 09:56] LABS: Abs Immature Grans 0.03 k/cumm (0.0-0.09); Absolute Basophil Count 0.02 k/cumm (0.0-0.2); Absolute Eosinophil Count 0.12 k/cumm (0.0-0.7); Absolute Monocyte Count 1.32 k/cumm (0.11-0.7); Absolute Neutrophil Count 9.14 k/cumm (1.2-6.7); Basophils % 0.2; HCT 40.7 % (40.0-50.0); Immature Grans % 0.3; Lymphocytes % 9.1; Mean Corp. HGB Concentration 34.4 g/dL (32.0-36.0); Mean Corpuscular Hemoglobin 30.3 pg (27.0-33.0); Mean Corpuscular Volume 88.1 fL (80-95); Mean Platelet Volume 9.8 fL (8.0-11.0); Monocytes % 11.3; Neutrophils % 78.1; Platelet Count 117 x1000/uL (130-400); RBC 4.62 m/cumm (4.50-6.00); RBC Distribution Width 12.6 % (11.8-14.1)
[2019-05-30 10:02] LABS: Absolute Lymphocyte Count 1.06 k/cumm (1.2-3.4)
[2019-05-30 10:16] LABS: ALT 17 U/L (12-78); AST 16 U/L (15-37); Albumin 3.7 g/dL (3.4-5.0); Alkaline Phosphatase 122 U/L (46-116); Anion Gap 10.5 mmol/L (3-11); BUN 14 mg/dL (7-18); Bilirubin, Total 0.9 mg/dL (0.2-1.0); CO2 25.5 mmol/L (21.0-32.0); CREATININE 1.18 mg/dL (0.70-1.30); Calcium 8.8 mg/dL (8.5-10.1); Chloride 101 mmol/L (98-107); Glucose 109 mg/dL (70-100); Magnesium 1.9 mg/dL (1.8-2.4); Potassium 3.7 mmol/L (3.5-5.1); Sodium 137 mmol/L (136-145); Total Protein 6.7 g/dL (6.4-8.2)
[2019-05-30 10:22] LABS: Troponin I < 0.05 ng/mL (0.00-0.06)
[2019-05-30] MEDS: Albuterol/Ipratropium 3 ML UPD VIAL (11:07)
== END 2019-05-30 11:46 | disposition home or self-care (01) ==
PROVIDERS: Emergency Provider Emergency Medicine; PCP Nurse Practitioner
DX: M62.830 Muscle spasm of back (principal); G24.3 Spasmodic torticollis
CPT/HCPCS: 36415; 80053; 99283; 71045; 83735; 84484; 85025; J2930; J7620

== ENCOUNTER 2019-06-11 13:31 | Emergency (ER) | payer MEDICARE, SELFPAY ==
[2019-06-11 13:37] VITALS: BP 120/58; PULSE 65; RESP 18; TEMP 36.8; O2SAT 97
[2019-06-11] MEDS: Doxycycline Hyclate 100 MG CAP PO (14:43)
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
[2019-06-13 11:00] LABS: Lyme Ab w Rflx to Lyme Confirm Positive
[2019-06-15 01:09] LABS: Anaplasma phagocytophilum Negative (Negative); B. miyamotoi PCR Negative (Negative); Babesia divergens/MO-1 Negative (Negative); Babesia duncani Negative (Negative); Babesia microti Negative (Negative); Ehrlichia chaffeensis Negative (Negative); Ehrlichia ewingii/canis Negative (Negative); Ehrlichia muris eauclairensis Negative (Negative)
[2019-06-15 12:36] LABS: IgG Band(s) SEE COMMENTS kDa; IgG Immunoblot Negative; IgM Band(s) SEE COMMENTS kDa; IgM Immunoblot Negative; Immunoblot Interpretation SEE COMMENTS
== END 2019-06-11 15:17 ==
LOC: ER 14:06
PROVIDERS: Emergency Provider Physician Assistant; PCP Nurse Practitioner
DX: L03.113 Cellulitis of right upper limb (principal); W57.XXXA Bitten or stung by nonvenomous insect and other nonvenomous arthropods, initial encounter; I10 Essential (primary) hypertension; J44.9 Chronic obstructive pulmonary disease, unspecified; Z87.890 Personal history of sex reassignment
CPT/HCPCS: 36415; 86617; 87798; 99283; 86618

== ENCOUNTER 2019-06-15 00:21 | Outpatient (CLI) | payer MEDICARE, SELFPAY ==
--- NOTE | 2019-06-15 12:00 | DI.RAD_ITS ---
SYMPTOMS/DIAGNOSIS: COUGH, R05, OROPHARYNGEAL DYSPHAGIA, R13.12 PA AND LATERAL CHEST: The heart is normal in size. The lungs are clear. The mediastinal structures and pleura appear intact. CONCLUSION: Normal chest.
== END 2019-06-15 00:41 ==
PROVIDERS: PCP Nurse Practitioner; Visit Provider Physician Assistant
DX: R05 Cough (principal); R13.12 Dysphagia, oropharyngeal phase
CPT/HCPCS: 71046

== ENCOUNTER → 2019-08-01 13:48 | Outpatient (BNVA) | payer MEDICARE, SELFPAY | PROVIDERS: PCP Nurse Practitioner; Referring Provider Nurse Practitioner; Visit Provider Internal Medicine Cardiovascular Disease | DX: R69 Illness, unspecified (principal) ==

== ENCOUNTER 2019-08-01 14:21 | Outpatient (CLI) | payer MEDICARE, SELFPAY ==
[2019-08-01 15:56] LABS: Calculated LDL 93 mg/dL; Cholesterol 150 mg/dL (50-200); HDL Cholesterol 43 mg/dL (40-60); Triglyceride 72 mg/dL (30-150)
== END 2019-08-01 14:41 ==
PROVIDERS: PCP Nurse Practitioner; Visit Provider Nurse Practitioner
DX: E78.5 Hyperlipidemia, unspecified (principal); I25.10 Atherosclerotic heart disease of native coronary artery without angina pectoris; I25.2 Old myocardial infarction; J44.9 Chronic obstructive pulmonary disease, unspecified; I10 Essential (primary) hypertension
CPT/HCPCS: 36415; 80061; 99205; 99215

== ENCOUNTER 2019-08-27 20:06 | Emergency (ER) | payer MEDICARE, SELFPAY ==
[2019-08-27] VITALS (27 sets, daily range): BP systolic 85–146; BP diastolic 48–87; PULSE 45–69; RESP 11–24; TEMP 37.1; O2SAT 91–99
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
[2019-08-27] MEDS: Normal Saline 500 ML IV (20:30)
[2019-08-27 20:31] LABS: BE (Venous) 2.4 mmol/L (-3-3); HCO3 (Venous) 27 mmol/L (22-28); O2 Sat (Venous) 69 % (70-80); TCO2 (Venous) 24 mmol/L (22-29); pCO2 (Venous) 44 mm/Hg (34-47); pO2 (Venous) 34 mm/Hg (28-44)
[2019-08-27 20:53] LABS: Ammonia 10 umol/L (11-32)
[2019-08-27 20:55] LABS: Abs Immature Grans 0.02 k/cumm (0.0-0.09); Absolute Basophil Count 0.04 k/cumm (0.0-0.2); Absolute Eosinophil Count 0.33 k/cumm (0.0-0.7); Absolute Lymphocyte Count 1.94 k/cumm (1.2-3.4); Absolute Monocyte Count 0.77 k/cumm (0.11-0.7); Absolute Neutrophil Count 4.49 k/cumm (1.2-6.7); Basophils % 0.5; Eosinophils % 4.3; HCT 43.2 % (40.0-50.0); HGB 14.3 g/dL (13.5-17.5); Immature Grans % 0.3; Lymphocytes % 25.6; Mean Corp. HGB Concentration 33.1 g/dL (32.0-36.0); Mean Corpuscular Volume 87.6 fL (80-95); Mean Platelet Volume 10.3 fL (8.0-11.0); Monocytes % 10.1; Neutrophils % 59.2; Platelet Count 128 x1000/uL (130-400); RBC 4.93 m/cumm (4.50-6.00); RBC Distribution Width 14.2 % (11.8-14.1); White Blood Cell Count 7.59 k/cumm (4.4-10.8)
[2019-08-27 20:57] LABS: Prothrombin Time 10.4 sec (9.3-11.0)
[2019-08-27 21:06] LABS: ALT 22 U/L (16-63); AST 19 U/L (15-37); Alkaline Phosphatase 124 U/L (46-116); Anion Gap 8.3 mmol/L (3-11); BUN 16 mg/dL (7-18); Bilirubin, Total 0.5 mg/dL (0.2-1.0); CO2 26.7 mmol/L (21.0-32.0); CREATININE 1.14 mg/dL (0.70-1.30); Calcium 9.2 mg/dL (8.5-10.1); Chloride 103 mmol/L (98-107); Glucose 89 mg/dL (70-100); NT-proBNP 323 pg/mL; Potassium 4.1 mmol/L (3.5-5.1); Sodium 138 mmol/L (136-145); TSH (W/Ref FT4) 1.94 uIU/mL (0.36-3.74)
[2019-08-27 21:11] LABS: Troponin I < 0.05 ng/mL (0.00-0.06)
[2019-08-27] MEDS: Amiodarone 150 MG/3 ML VIAL IVP (21:17)
[2019-08-27] MEDS: MAGNESIUM SULFATE 1 GM/100 ML BAG IVPB (21:17)
[2019-08-27 21:18] LABS: Magnesium 1.8 mg/dL (1.8-2.4)
[2019-08-27] MEDS: LORazepam 2 MG/ML VIAL ×2 (21:24→21:54)
[2019-08-27] MEDS: Omnipaque 350 MG/ML 100 ML BTL IJ ×2 (21:48→21:51)
--- NOTE | 2019-08-27 21:52 | DI.CT_ITS ---
EXAM: CT BRAIN NECK CTA CLINICAL HISTORY: hx anyurism, now has neck pain after fall and [facility] TECHNIQUE: Axial CT angiography was performed with multi-slice acquisition and multi-planar and/or 3 D reconstructions. The exam was performed according to the usual protocol with 75 cc's of Omnipaque 350. COMPARISON: CT chest PE CTA from 10/24/2018 FINDINGS: CT brain: Ventricles and sulci are consistent with the patient's age. There does appear to be an old left temp oral infarct. No acute intracranial hemorrhage, midline shift, or mass effect is present. Ventricle s are intact. The basilar cisterns are patent. There is patient motion artifact. There is mucosal thickening in the ethmoid air cells. No fluid levels are seen in the visualized paranasal sinuses. The calvarium is intact. CT angiography of the brain: The intracranial internal carotid arteries are unremarkable. There is no significant stenosis, aneur ysm, or occlusion. The anterior cerebral arteries are unremarkable. No evidence of aneurysm, occlusion or significant s tenosis is present. The middle cerebral arteries are unremarkable. No evidence of aneurysm, occlusion, or significant st enosis is present. The posterior cerebral arteries are unremarkable. No evidence of aneurysm, occlusion, or significant stenosis is present. There is mild atherosclerosis in the distal left vertebral artery. There is minimal (less than 10 pe rcent) stenosis of the distal left vertebral artery. The right vertebral artery is unremarkable. The basilar artery is unremarkable. No evidence of aneurysm, occlusion, or significant stenosis. CT angiography of the neck: The common carotid arteries are unremarkable. No evidence of dissection, occlusion, or significant s tenosis. There is mild calcific plaque seen in the right carotid bulb and the origin of the internal carotid a rtery. No significant stenosis is present (less than 20 percent). There is no occlusion or dissecti on. There is mild calcific plaque seen at the origin of the left internal carotid artery. No signif icant stenosis is present. The external carotid arteries are unremarkable. There is no evidence of occlusion or significant yvonne nosis. The vertebral arteries are unremarkable. No evidence of dissection, occlusion or significant stenosi s. IMPRESSION: 1. No acute intracranial process. 2. No acute arterial pathology in the head or neck.
[2019-08-27] MEDS: levETIRAcetam 1,000 MG in Normal Saline 100 ML 400 MG IVPB (21:53)
--- NOTE | 2019-08-27 21:54 | DI.CT_ITS ---
EXAM: CT THORAX ABDOMEN CTA CLINICAL HISTORY: chest pain, hx of brain anyurisms TECHNIQUE: Axial CT angiography was performed with multi-slice acquisition and multi-planar and/or 3 D reconstructions. The exam was performed according to the usual protocol with 75 cc's of Omnipaque 350. COMPARISON: CT BRAIN NECK CTA from 08/27/2019 FINDINGS: CT angiography of the chest: There is no evidence of a pulmonary embolus. The thoracic aorta is of normal caliber. No aneurysm o r dissection is seen. There is atherosclerosis present. Heart size is within normal limits. No per icardial effusion is present. No significant thoracic adenopathy is present. No pleural effusion or pneumothorax is identified. No focal consolidating infiltrates are seen in the lungs. The tracheob ronchial tree is unremarkable. Age-appropriate degenerative changes are seen in the spine. CT angiography of the abdomen: The abdominal aorta is intact. No aneurysm or dissection is present. There is mild atherosclerosis present. The celiac axis, superior mesenteric, and inferior mesenteric arteries are unremarkable. There is mild calcific plaque at the origin of the right renal artery. No significant stenosis is se en. Left renal artery is unremarkable. The liver, spleen, pancreas, gallbladder, and bile ducts are unremarkable. The adrenal glands are un remarkable. The kidneys are unremarkable. No significant abdominal adenopathy, ascites or pneumoperit oneum is present. The bowel is unremarkable. Degenerative changes are seen in the spine. IMPRESSION: No evidence of an arterial injury in the chest or abdomen. No evidence of an aneurysm.
--- NOTE | 2019-08-27 22:29 | DI.VRAD_ITS ---
PROCEDURE INFORMATION: Exam: CT Angiography Head With Contrast Exam date and time: 08/27/2019 8:21 PM Clinical history: 64 years old, male; Injury or trauma; Initial encounter; Blunt trauma; Head and neck; Injury date: 08/27/19; Patient HX: HX of anyurism, now neck and head pain after fall, MCMAHON TECHNIQUE: Imaging protocol: Computed tomography angiography of the head with intravenous contrast. 3D rendering: MIP reconstructed images were created and reviewed. Radiation optimization: All CT scans at this facility use at least one of these dose optimization techniques: automated exposure control; mA and/or kV adjustment per patient size (includes targeted exams where dose is matched to clinical indication); or iterative reconstruction. Contrast material: OMNIPAQUE 350; Contrast volume: 75 ml; Contrast route: IV; COMPARISON: CT brain neck CTA 07/29/2018 8:14 PM FINDINGS: Right internal carotid artery: Unremarkable. Intracranial segment is patent with no significant stenosis. No aneurysm. Right anterior cerebral artery: Unremarkable. No occlusion or significant stenosis. No aneurysm. Right middle cerebral artery: Unremarkable. No occlusion or significant stenosis. No aneurysm. Right posterior cerebral artery: Unremarkable. No occlusion or significant stenosis. No aneurysm. Right vertebral artery: Unremarkable. No occlusion or significant stenosis. No aneurysm. Left internal carotid artery: Unremarkable. Intracranial segment is patent with no significant stenosis. No aneurysm. Left anterior cerebral artery: Unremarkable. No occlusion or significant stenosis. No aneurysm. Left middle cerebral artery: Unremarkable. No occlusion or significant stenosis. No aneurysm. Left posterior cerebral artery: Unremarkable. No occlusion or significant stenosis. No aneurysm. Left vertebral artery: Up to 10% stenosis in the left vertebral artery. Basilar artery: Unremarkable. No occlusion or significant stenosis. No aneurysm. IMPRESSION: Up to 10% stenosis in the left vertebral artery. Otherwise unremarkable vessels. PROCEDURE INFORMATION: Exam: CT Head Without Contrast Exam date and time: 08/27/2019 8:21 PM Clinical history: 64 years old, male; Injury or trauma; Initial encounter; Blunt trauma; Head and neck; Injury date: 08/27/19; Patient HX: HX of anyurism, now neck and head pain after fall, MCMAHON TECHNIQUE: Imaging protocol: Computed tomography of the head without contrast. Other technique: STROKE PROTOCOL was implemented. 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 Ventricles: Normal. No ventriculomegaly. Bones/joints: Unremarkable. No acute fracture. Sinuses: Mucosal thickening in the bilateral ethmoid sinuses. Remaining paranasal air sinuses are normal. Mastoid air cells: Visualized mastoid air cells are well aerated. Soft tissues: Unremarkable. 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 3D rendering: MIP reconstructed images were created and reviewed. Radiation optimization: All CT scans at this facility use at least one of these dose optimization techniques: automated exposure control; mA and/or kV adjustment per patient size (includes targeted exams where dose is matched to clinical indication); or iterative reconstruction. Contrast material: OMNIPAQUE 350; Contrast volume: 75 ml; Contrast route: IV; COMPARISON: CT brain neck CTA 07/29/2018 8:14 PM FINDINGS: VASCULATURE: Right common carotid artery: Unremarkable. No stenosis. No dissection or occlusion. Right internal carotid artery: Up to 20% stenosis in the right internal carotid artery origin. Right external carotid artery: Unremarkable. No occlusion or stenosis of the origin. Right vertebral artery: Unremarkable. No stenosis. No dissection or occlusion. Left common carotid artery: Unremarkable. No stenosis. No dissection or occlusion. Left internal carotid artery: Nonsignificant plaque in the origin of the left internal carotid artery. Left external carotid artery: Unremarkable. No occlusion or stenosis of the origin. Left vertebral artery: Unremarkable. No stenosis. No dissection or occlusion. NECK: Bones/joints: No acute fracture. Soft tissues: Normal. No significant soft tissue swelling. IMPRESSION: 1. Up to 20% stenosis in the right internal carotid artery origin. 2. Nonsignificant plaque in the origin of the left internal carotid artery. COMMENT: Reference per NASCET criteria for degree of stenosis: Mild: less than 50% stenosis. Moderate: 50-69% stenosis. Severe: 70-94% stenosis. Near occlusion: 95-99% stenosis. Dictated and Authenticated by: Steff Lobato MD. Ordering:DON Leach MD
--- NOTE | 2019-08-27 22:46 | DI.VRAD_ITS ---
PROCEDURE INFORMATION: Exam: CT Angiography Chest With Contrast Exam date and time: 08/27/2019 9:47 PM Clinical history: 64 years old, male; Injury or trauma; Fall; Initial encounter; Blunt trauma (contusions or hematomas); Other: Chest pain radiating to back; Injury date: 08/27/19; Injury details: Tearing chest pain from chest to back TECHNIQUE: Imaging protocol: Computed tomographic angiography of the chest with intravenous contrast. 3D rendering: MIP reconstructed images were created and reviewed. Radiation optimization: All CT scans at this facility use at least one of these dose optimization techniques: automated exposure control; mA and/or kV adjustment per patient size (includes targeted exams where dose is matched to clinical indication); or iterative reconstruction. Contrast material: OMNIPAQUE 350; Contrast volume: 75 ml; Contrast route: IV; COMPARISON: CT Chest PE CTA 10/24/2018 3:59 PM FINDINGS: Pulmonary arteries: Normal. No pulmonary emboli. Aorta: Minimal atherosclerosis. No aortic aneurysm. No aortic dissection. Lungs: Unremarkable. No consolidation. No masses. Pleural space: Unremarkable. No pneumothorax. No pleural effusion. Heart: Unremarkable. No cardiomegaly. No pericardial effusion. Lymph nodes: Unremarkable. No enlarged lymph nodes. Bones/joints: Degenerative disc disease. Soft tissues: Unremarkable. IMPRESSION: No significant stenosis in the vessels No aortic dissection or aneurysm. PROCEDURE INFORMATION: Exam: CT Angiography Abdomen With Contrast Exam date and time: 08/27/2019 9:47 PM Clinical history: 64 years old, male; Injury or trauma; Fall; Initial encounter; Blunt trauma (contusions or hematomas); Other: Chest pain radiating to back; Injury date: 08/27/19; Injury details: Tearing chest pain from chest to back TECHNIQUE: Imaging protocol: Computed tomographic angiography images of the abdomen with intravenous contrast material. 3D rendering: MIP reconstructed images were created and reviewed. Radiation optimization: All CT scans at this facility use at least one of these dose optimization techniques: automated exposure control; mA and/or kV adjustment per patient size (includes targeted exams where dose is matched to clinical indication); or iterative reconstruction. Contrast material: OMNIPAQUE 350; Contrast volume: 75 ml; Contrast route: IV; COMPARISON: CT chest PE CTA 10/24/2018 3:59 PM FINDINGS: VASCULATURE: Aorta: No aortic aneurysm. No aortic dissection. Celiac trunk and mesenteric arteries: Minimal non-significant atherosclerosis in the proximal celiac artery. Superior mesenteric artery is normal. Renal arteries: Upper to 30% stenosis of the origin of the right renal artery. Left renal artery is normal. ABDOMEN: Liver: Normal. No mass. Gallbladder and bile ducts: Normal. No calcified stones. No ductal dilation. Pancreas: Normal. No ductal dilation. Spleen: Normal. No splenomegaly. Adrenals: Normal. No mass. Kidneys and ureters: Normal. No hydronephrosis. Stomach and bowel: Unremarkable. No obstruction. No mucosal thickening. Lymph nodes: Unremarkable. No enlarged lymph nodes. Intraperitoneal space: Unremarkable. No free air. No significant fluid collection. Bones/joints: Degenerative disc disease. Soft tissues: Unremarkable. IMPRESSION: No significant stenosis the vessels. No aortic dissection or aneurysm Dictated and Authenticated by: Steff Lobato MD. Ordering:DON Leach MD
[2019-08-27 23:40] LABS: Troponin I < 0.05 ng/mL (0.00-0.06)
[2019-08-28 03:48] VITALS: BP 102/57; PULSE 47; RESP 13; O2SAT 95
--- NOTE | 2019-08-28 11:12 | NUR.NOTE ---
Nursing Note: Son, Marciano Pérez called asking if his father was admitted here or was he transferred to [facility]. I looked at the HIPPA form, he is on the form. He was told that his father was transferred to [facility]. Katerine Boswell.
== END 2019-08-27 23:35 | disposition short-term general hospital (02) ==
PROVIDERS: Emergency Provider Student in an Organized Health Care Education/Training Program; PCP Nurse Practitioner
DX: I47.2 Ventricular tachycardia (principal); R07.9 Chest pain, unspecified; R56.9 Unspecified convulsions; I27.20 Pulmonary hypertension, unspecified; I50.9 Heart failure, unspecified; J44.9 Chronic obstructive pulmonary disease, unspecified; Z79.01 Long term (current) use of anticoagulants; Z87.891 Personal history of nicotine dependence; Z95.5 Presence of coronary angioplasty implant and graft
CPT/HCPCS: 36415; 70496; 70498; 71275; 74175; 80053; 82805; 93005; 96361; 96365; 96368; 99291; 82140; 83735; 83880; 84443; 84484; 85025; 85610; 85730; 93010; J1953; J2060; J3475; J3490

== ENCOUNTER 2019-09-13 14:18 | Outpatient (REF) | payer MEDICARE, SELFPAY ==
[2019-09-17 05:54] LABS: Codeine Negative ng/mL (Cutoff: 25); Dihydrocodeine Negative ng/mL (Cutoff: 25); Hydrocodone Negative ng/mL (Cutoff: 25); Hydromorphone Negative ng/mL (Cutoff: 25); Morphine Negative ng/mL (Cutoff: 25); Naloxone Negative ng/mL (Cutoff: 25); Norhydrocodone Negative ng/mL (Cutoff: 25); Noroxycodone Negative ng/mL (Cutoff: 25); Noroxymorphone Negative ng/mL (Cutoff: 25); Opiates Interpretation Negative.
[2019-09-19 05:39] LABS: MDA (Ecstasy Metabolite) Negative ng/mL (Cutoff: 25); MDMA (Ecstasy) Negative ng/mL (Cutoff: 25); Methamphetamine Negative ng/mL (Cutoff: 25); Phentermine Negative ng/mL (Cutoff: 25); Pseudoephedrine/Ephedrine Negative ng/mL (Cutoff: 25)
== END 2019-09-13 14:38 ==
LOC: LBN 14:18
PROVIDERS: PCP Nurse Practitioner; Visit Provider Nurse Practitioner
DX: R82.90 Unspecified abnormal findings in urine (principal)
CPT/HCPCS: 80324; 80361

== ENCOUNTER 2019-10-03 11:16 | Outpatient (CLI) | payer MEDICARE, SELFPAY ==
[2019-10-05 05:33] LABS: Vitamin D 25 Total 25.4 ng/ml (30-100)
== END 2019-10-03 11:36 ==
PROVIDERS: PCP Nurse Practitioner; Visit Provider Nurse Practitioner
DX: E55.9 Vitamin D deficiency, unspecified (principal)
CPT/HCPCS: 36415; 82306

== ENCOUNTER 2019-11-23 16:09 | Emergency (ER) | payer MEDICARE, SELFPAY ==
[2019-11-23 16:23] VITALS: BP 123/75; PULSE 66; RESP 14; TEMP 36.8; O2SAT 95
[2019-11-23] MEDS: Acetaminophen 500 MG TAB 1000 MG PO (16:48)
--- NOTE | 2019-11-23 16:55 | DI.RAD_ITS ---
EXAM: XR TIB/FIB RT CLINICAL HISTORY: pain, fall TECHNIQUE: COMPARISON: XR KNEE RT 3V AP,LAT,PHOEBE from 11/23/2019 FINDINGS: Three views of the right knee and two views of the right leg were obtained. Note is made of chondroc alcinosis of the joints of the knee. Question slight smooth deformity of medial tibial plateau, no e vidence of acute fracture but CT could be obtained if clinically indicated. Bones of the leg are unr emarkable. IMPRESSION: No acute fracture seen.
--- NOTE | 2019-11-23 16:56 | DI.RAD_ITS ---
EXAM: XR FOOT LT COMPLETE CLINICAL HISTORY: pain, fall TECHNIQUE: COMPARISON: LEFT FOOT COMPLETE from 05/12/2012 XR TIB/FIB LT from 11/23/2019 XR KNEE RT 3V AP,LAT,PHOEBE from 11/23/2019 XR ANKLE LT COMPLETE from 11/23/2019 XR KNEE LT 3V AP,LAT,PHOEBE from 11/23/2019 FINDINGS: Views of the knee leg foot and ankle were obtained. Note is made of chondrocalcinosis of the knee. No fracture identified. IMPRESSION:
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
--- NOTE | 2019-11-23 17:29 | DI.VRAD_ITS ---
PROCEDURE INFORMATION: Exam: XR Left Foot Complete Exam date and time: 11/23/2019 5:17 PM Age: 64 years old Clinical indication: Other: Pain, fall TECHNIQUE: Imaging protocol: XR Left foot. Views: 3 or more views. COMPARISON: CR XR ANKLE LT COMPLETE 11/23/2019 5:00 PM FINDINGS: Bones/joints: Normal. Soft tissues: Normal. IMPRESSION: No acute findings. Dictated and Authenticated by: Christopher Zafar MD. Ordering:SWAPNIL Ruiz MD
--- NOTE | 2019-11-23 17:32 | DI.VRAD_ITS ---
PROCEDURE INFORMATION: Exam: XR Right Tibia and Fibula Exam date and time: 11/23/2019 5:17 PM Age: 64 years old Clinical indication: Other: Pain, fall TECHNIQUE: Imaging protocol: XR Right tibia and fibula. Views: 2 views. COMPARISON: CR KNEES BILAT AP STANDING LATS 06/05/2013 1:25 PM FINDINGS: Bones/joints: No acute fracture. Joint spaces are maintained. Mild degenerative patellar spurring and insertional enthesopathy. Mineralization in the medial and lateral knee compartments. Soft tissues: Normal. IMPRESSION: No acute findings. Mineralization in the medial and lateral knee joint compartments lobe likely reflects chondrocalcinosis. Dictated and Authenticated by: Christopher Zafar MD. Ordering:SWAPNIL Ruiz MD
--- NOTE | 2019-11-23 17:33 | DI.VRAD_ITS ---
PROCEDURE INFORMATION: Exam: XR Left Ankle Exam date and time: 11/23/2019 5:17 PM Age: 64 years old Clinical indication: Other: Pain fall; Patient HX: Handicap patient. Best images TECHNIQUE: Imaging protocol: XR Left ankle. Views: 3 or more views. COMPARISON: No relevant prior studies available. FINDINGS: Bones/joints: No acute fracture. Joint spaces are maintained. Small ankle joint effusion. Soft tissues: Normal. IMPRESSION: Small ankle joint effusion without underlying fracture or traumatic joint malalignment. Dictated and Authenticated by: Christopher Zafar MD. Ordering:SWAPNIL Ruiz MD
--- NOTE | 2019-11-23 17:36 | DI.VRAD_ITS ---
PROCEDURE INFORMATION: Exam: XR Right Knee Exam date and time: 11/23/2019 5:17 PM Age: 64 years old Clinical indication: Knee; Right; Patient HX: Pain fall . ; additional info: Patient handicapped best images obtained TECHNIQUE: Imaging protocol: XR Right knee. Views: 3 views. COMPARISON: CR KNEES BILAT AP STANDING LATS 06/05/2013 1:25 PM FINDINGS: Bones/joints: No definite acute fracture. Joint spaces are maintained. Nonspecific mild depression of the medial tibial plateau. Mild degenerative patellar spurring and insertional enthesopathy. Soft tissues: Normal. Other findings: Mineralization in the medial and lateral compartments. IMPRESSION: 1. No definite acute fracture. There is nonspecific mild depression of the medial tibial plateau which may represent age-indeterminate traumatic deformity. Recommend clinical correlation. 2. Mineralization in the medial and lateral knee joint compartments likely reflects chondrocalcinosis. Dictated and Authenticated by: Christopher Zafar MD. Ordering:SWAPNIL Ruiz MD
--- NOTE | 2019-11-23 17:38 | DI.VRAD_ITS ---
PROCEDURE INFORMATION: Exam: XR Left Tibia and Fibula Exam date and time: 11/23/2019 5:17 PM Age: 64 years old Clinical indication: Other: Pain, fall; Additional info: Patient handicapped best images obtained TECHNIQUE: Imaging protocol: XR Left tibia and fibula. Views: 2 views. COMPARISON: CR KNEES BILAT AP STANDING LATS 06/05/2013 1:25 PM FINDINGS: Bones/joints: No acute fracture. Joint spaces are maintained. Incompletely visualized knee joint mineralization. Mild degenerative patellar spurring and insertional enthesopathy. Soft tissues: Normal. IMPRESSION: 1. No acute fracture or traumatic joint malalignment. 2. Knee joint mineralization likely reflects chondrocalcinosis. Dictated and Authenticated by: Christopher Zafar MD. Ordering:SWAPNIL Ruiz MD
--- NOTE | 2019-11-23 17:40 | DI.VRAD_ITS ---
PROCEDURE INFORMATION: Exam: XR Left Knee Exam date and time: 11/23/2019 5:17 PM Age: 64 years old Clinical indication: Pain; Knee; Left; Additional info: Patient handicapped best images obtained TECHNIQUE: Imaging protocol: XR Left knee. Views: 3 views. COMPARISON: CR KNEES BILAT AP STANDING LATS 06/05/2013 1:25 PM FINDINGS: Bones/joints: No acute fracture. Joint spaces are maintained. Mineralization in the medial and lateral knee joint compartments. Mild degenerative patellar osteophytosis and enthesopathy. Soft tissues: Normal. IMPRESSION: 1. No acute fracture or traumatic malalignment. 2. Knee joint mineralization likely reflects chondrocalcinosis. Dictated and Authenticated by: Christopher Zafar MD. Ordering:SWAPNIL Ruiz MD
--- NOTE | 2019-11-23 18:32 | DI.CT_ITS ---
EXAM: CT LOWER EXTREMITY RT WO CLINICAL HISTORY: fall, pain, r/o tib plateau fx, see xray TECHNIQUE: COMPARISON: No exams were available for comparison FINDINGS: CT examination of the knee was obtained to evaluation questionable smooth medial tibial plateau defor mity seen on plain films. Minimal smooth deformity of tibial plateau noted. No evidence of acute fr acture. Chondrocalcinosis noted. Bones of the knee otherwise appear intact. IMPRESSION: No evidence of acute fracture.
--- NOTE | 2019-11-23 18:54 | DI.VRAD_ITS ---
PROCEDURE INFORMATION: Exam: CT Right Lower Extremity Without Contrast, Knee Exam date and time: 11/23/2019 5:53 PM Age: 64 years old Clinical indication: Pain; Knee; Right TECHNIQUE: Imaging protocol: CT of the Right lower extremity without contrast was performed. Exam focused on the knee. Radiation optimization: All CT scans at this facility use at least one of these dose optimization techniques: automated exposure control; mA and/or kV adjustment per patient size (includes targeted exams where dose is matched to clinical indication); or iterative reconstruction. COMPARISON: CR XR KNEE RT 3V AP,LAT,PHOEBE 11/23/2019 5:08 PM FINDINGS: Bones/joints: Trace suprapatellar joint effusion. Mild mineralization of the posterior cruciate ligament. Similar appearing mild depression of the medial tibial plateau without CT findings of acute injury. No acute fracture. No traumatic joint malalignment. Medial and lateral compartment mineralization. Mild tricompartmental degenerative osteophytosis and subchondral cystic change. Patellar enthesopathy. Soft tissues: Multilobulated Alaniz's cyst. IMPRESSION: 1. No acute fracture or traumatic joint malalignment. 2. Similar appearing mild depression of the medial tibial plateau is favored remote or congenital in etiology, particularly in the absence of a significant joint effusion. 3. Alaniz's cyst. 4. Chondrocalcinosis. Dictated and Authenticated by: Christopher Zafar MD. Ordering:SWAPNIL Ruiz MD
== END 2019-11-23 20:00 | disposition home or self-care (01) ==
PROVIDERS: Emergency Provider Physician Assistant; PCP Nurse Practitioner
DX: S83.91XA Sprain of unspecified site of right knee, initial encounter (principal); S83.92XA Sprain of unspecified site of left knee, initial encounter; S80.211A Abrasion, right knee, initial encounter; S80.811A Abrasion, right lower leg, initial encounter; W05.0XXA Fall from non-moving wheelchair, initial encounter; J44.9 Chronic obstructive pulmonary disease, unspecified; Z87.891 Personal history of nicotine dependence; I10 Essential (primary) hypertension
CPT/HCPCS: 73562; 99284; 73590; 73610; 73630; 73700

== ENCOUNTER 2019-12-29 19:53 | Emergency (ER) | payer MEDICARE, SELFPAY ==
[2019-12-29] VITALS (31 sets, daily range): BP systolic 129–166; BP diastolic 64–91; PULSE 48–76; RESP 8–22; TEMP 36.6; O2SAT 87–98
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
--- NOTE | 2019-12-29 20:15 | DI.RAD_ITS ---
EXAM: XR CHEST 2V PA AND LATERAL INDICATION: LEFT-SIDED CP. COMPARISON: XR CHEST 2V PA LATERAL from 06/15/2019 TECHNIQUE: 2D digital imaging was performed. FINDINGS: Heart is mildly enlarged. The aorta is tortuous. There are overlapping densities at the left latera l aspect of the chest wall due to patient's arm positioning. No infiltrate, effusion or pneumothorax is seen. IMPRESSION: No acute abnormality. DATA REPOSITORY: RADIATION DOSE DELIVERED:
[2019-12-29 20:43] LABS: Abs Immature Grans 0.01 k/cumm (0.0-0.09); Absolute Basophil Count 0.03 k/cumm (0.0-0.2); Absolute Eosinophil Count 0.27 k/cumm (0.0-0.7); Absolute Lymphocyte Count 1.75 k/cumm (1.2-3.4); Absolute Monocyte Count 0.57 k/cumm (0.11-0.7); Absolute Neutrophil Count 4.19 k/cumm (1.2-6.7); Basophils % 0.4; HCT 41.6 % (40.0-50.0); HGB 14.2 g/dL (13.5-17.5); Immature Grans % 0.1 %; Lymphocytes % 25.7; Mean Corp. HGB Concentration 34.1 g/dL (32.0-36.0); Mean Corpuscular Hemoglobin 29.9 pg (27.0-33.0); Mean Corpuscular Volume 87.6 fL (80-95); Mean Platelet Volume 10.1 fL (8.0-11.0); Monocytes % 8.4; Neutrophils % 61.4; Platelet Count 160 x1000/uL (130-400); RBC 4.75 m/cumm (4.50-6.00); RBC Distribution Width 12.7 % (11.8-14.1); White Blood Cell Count 6.82 k/cumm (4.4-10.8)
[2019-12-29 20:46] LABS: INR 1.1 (0.9-1.1); PTT Activated 26.5 sec (21.0-31.4); Prothrombin Time 10.7 sec (9.3-11.0)
[2019-12-29 20:47] LABS: ALT 15 U/L (16-63); AST 18 U/L (15-37); Albumin 4.1 g/dL (3.4-5.0); Alkaline Phosphatase 132 U/L (46-116); Anion Gap 6.9 mmol/L (3-11); BUN 15 mg/dL (7-18); Bilirubin, Total 0.6 mg/dL (0.2-1.0); CO2 29.1 mmol/L (21.0-32.0); CREATININE 1.25 mg/dL (0.70-1.30); Calcium 9.2 mg/dL (8.5-10.1); Chloride 103 mmol/L (98-107); Estimated GFR 58.15 (mL/min/1.73m2); Glucose 92 mg/dL (74-106); Magnesium 1.7 mg/dL (1.8-2.4); Potassium 3.7 mmol/L (3.5-5.1); Sodium 139 mmol/L (136-145); Total Protein 6.8 g/dL (6.4-8.2); Troponin I < 0.05 ng/Ml (<0.06)
--- NOTE | 2019-12-29 21:11 | DI.VRAD_ITS ---
PROCEDURE INFORMATION: Exam: XR Chest, 2 Views Exam date and time: 12/29/2019 8:43 PM Age: 64 years old Clinical indication: Other: Left sided cp TECHNIQUE: Imaging protocol: XR of the chest Views: 2 views. COMPARISON: CR XR CHEST 2V PA LATERAL 06/15/2019 12:40 PM FINDINGS: Lungs: Unremarkable. No consolidation. Pleural space: Unremarkable. No pleural effusion. No pneumothorax. Heart/Mediastinum: Unremarkable. No cardiomegaly. Bones/joints: Degenerative thoracic spine change. Degeneration is both AC joints. Surgical changes of the right AC joint. Small. IMPRESSION: 1. No acute findings. 2. Clear lungs and pleural space. 3. Degenerative skeletal changes. Cysts Dictated and Authenticated by: Deuce Strickland MD. Ordering:BENI Blair MD
--- NOTE | 2019-12-29 21:48 | NUR.NOTE ---
Nursing Note: Pt resting with eyes closed. Call light in hand. No C/O or requests.
--- NOTE | 2019-12-29 23:09 | NUR.NOTE ---
Nursing Note: 2300: Lab at bedside for repeat Troponin. Water provided for patient
[2019-12-29 23:39] LABS: Troponin I < 0.05 ng/Ml (<0.06)
[2019-12-30] VITALS: PULSE 54; RESP 14; O2SAT 98
[2019-12-30 00:01] VITALS: BP 150/76; PULSE 55; PULSE 56; RESP 18; O2SAT 98
== END 2019-12-30 00:20 | disposition home or self-care (01) ==
PROVIDERS: Emergency Provider Physician Assistant; PCP Nurse Practitioner
DX: R07.89 Other chest pain (principal); I10 Essential (primary) hypertension; J44.9 Chronic obstructive pulmonary disease, unspecified; Z87.891 Personal history of nicotine dependence
CPT/HCPCS: 80053; 93005; 96374; 99284; 71046; 83735; 84484; 85025; 85610; 85730; 93010; 99283

== ENCOUNTER 2020-01-11 10:40 | Emergency (ER) | payer MEDICARE, SELFPAY ==
[2020-01-11] VITALS (12 sets, daily range): BP systolic 93–131; BP diastolic 56–74; PULSE 48–59; RESP 10–17; TEMP 36.7; O2SAT 94–98
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
--- NOTE | 2020-01-11 11:00 | NUR.NOTE ---
Nursing Note: cervical collar applied to provide C-spine stabilization.
[2020-01-11 11:18] LABS: Abs Immature Grans 0.01 k/cumm (0.0-0.09); Absolute Basophil Count 0.04 k/cumm (0.0-0.2); Absolute Eosinophil Count 0.29 k/cumm (0.0-0.7); Absolute Lymphocyte Count 1.62 k/cumm (1.2-3.4); Absolute Monocyte Count 0.66 k/cumm (0.11-0.7); Absolute Neutrophil Count 3.47 k/cumm (1.2-6.7); Basophils % 0.7; Eosinophils % 4.8; HCT 44.3 % (40.0-50.0); HGB 14.5 g/dL (13.5-17.5); Immature Grans % 0.2 %; Lymphocytes % 26.6; Mean Corp. HGB Concentration 32.7 g/dL (32.0-36.0); Mean Corpuscular Hemoglobin 29.9 pg (27.0-33.0); Mean Corpuscular Volume 91.3 fL (80-95); Mean Platelet Volume 9.6 fL (8.0-11.0); Monocytes % 10.8; Neutrophils % 56.9; Platelet Count 157 x1000/uL (130-400); RBC 4.85 m/cumm (4.50-6.00); RBC Distribution Width 13.8 % (11.8-14.1); White Blood Cell Count 6.09 k/cumm (4.4-10.8)
--- NOTE | 2020-01-11 11:31 | DI.CT_ITS ---
EXAM: CT HEAD CERVICAL SPINE WO CLINICAL HISTORY: Fall, positive LOC, midline C-spine tenderness. TECHNIQUE: Imaging Protocol: Axial computed tomography images with coronal and sagittal reformatted images were created and reviewed COMPARISON: CT BRAIN NECK CTA from 08/27/2019 FINDINGS: Head CT Ventricles and Extra axial spaces: Normal in size and morphology for the patient's age. Hemorrhage: None. Cerebral parenchyma: Normal. Midline shift: None. Brainstem/Cerebellum: Normal. Calvarium: Normal. Visualized Paranasal sinuses/Mastoids: Clear. IMPRESSION: No acute abnormality. FINDINGS: Cervical Spine CT BONES: Vertebral body heights are maintained. There has been a previous laminectomy from C4 through C 6. There is partial fusion between C3 and C4. There is severe narrowing of the C3-4 through C6-7 di sc spaces. Advanced facet joint degenerative changes are seen greatest at C3-4 and C4-5.. Alignment is normal. There is no evidence of acute fracture. SOFT TISSUES: No paraspinal hematoma. The airway appears intact. IMPRESSION: Postsurgical and degenerative changes, no acute abnormality. RADIATION DOSE DELIVERED: DATA REPOSITORY: All CT scans at this facility are submitted to the National Radiology Data Registry (NRDR) Dose Index Registry (DIR) with the [employer] (ACR). RADIATION OPTIMIZATION: All CT scans at this facility use at least one of these dose optimization te chniques: automated exposure control; mA and/or kV adjustment per patient size (includes targeted exa ms where dose is matched to clinical indication); or iterative reconstruction.
[2020-01-11 11:35] LABS: ALT 16 U/L (16-63); AST 12 U/L (15-37); Albumin 4.1 g/dL (3.4-5.0); Alkaline Phosphatase 126 U/L (46-116); Anion Gap 5.8 mmol/L (3-11); BUN 12 mg/dL (7-18); Bilirubin, Total 0.4 mg/dL (0.2-1.0); CO2 32.2 mmol/L (21.0-32.0); Calcium 8.7 mg/dL (8.5-10.1); Chloride 104 mmol/L (98-107); Estimated GFR 55.58 (mL/min/1.73m2); Glucose 94 mg/dL (74-106); Potassium 4.2 mmol/L (3.5-5.1); Sodium 142 mmol/L (136-145)
[2020-01-11 11:36] LABS: Troponin I < 0.05 ng/Ml (<0.06)
[2020-01-11] MEDS: Acetaminophen 500 MG TAB PO (12:05)
== END 2020-01-11 12:26 | disposition home or self-care (01) ==
PROVIDERS: Emergency Provider Registered Nurse Emergency; PCP Nurse Practitioner
DX: S09.8XXA Other specified injuries of head, initial encounter (principal); W01.190A Fall on same level from slipping, tripping and stumbling with subsequent striking against furniture, initial encounter; J44.9 Chronic obstructive pulmonary disease, unspecified; Z87.891 Personal history of nicotine dependence; I10 Essential (primary) hypertension
CPT/HCPCS: 36415; 36416; 80053; 82962; 93005; 99285; 70450; 72125; 84484; 85025; 93010; L0172

== ENCOUNTER 2020-01-26 14:32 | Emergency (ER) | payer MEDICARE, SELFPAY ==
[2020-01-26 14:41] VITALS: BP 94/56; PULSE 46; TEMP 36.9; O2SAT 95
--- NOTE | 2020-01-26 15:00 | DI.CT_ITS ---
EXAM: HEAD AND C SPINE CT WITHOUT CLINICAL HISTORY: FELL, HEADACHE, NAUSEA, ANTICOAGULATED COMPARISON: CT HEAD CERVICAL SPINE WO from 01/11/2020 FINDINGS: CT examination of the cervical spine was performed utilizing multi slice acquisition and multiplanar reconstruction. There is a prior laminectomy from C4 through C6. There is posterior fusion of verte bral bodies C3 and C4. There is mild anterior spondylolisthesis of C4 on C5, presumably degenerative . No evidence of acute fracture or dislocation. Tracheolaryngeal structures appear intact as visualized. No gross cervical mass or adenopathy. Visu alized lung apices are clear. Noncontrast cranial CT was performed. There is moderate generalized cerebral atrophy. There is no evidence of acute intracranial hemorrhag e, mass effect, midline shift.no evidence of acute calvarial fracture. Mastoid air cells are hypopla stic. Temporal bone structures otherwise unremarkable. Mild chronic sinusitis noted involving ethmoid sinuses. Otherwise paranasal sinuses are well aerated. IMPRESSION: Marked degenerative changes of the cervical spine and prior laminectomy. No evidence of acute fractu re. No evidence of acute intracranial injury.
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
[2020-01-26 15:37] LABS: Abs Immature Grans 0.01 k/cumm (0.0-0.09); Absolute Basophil Count 0.04 k/cumm (0.0-0.2); Absolute Eosinophil Count 0.36 k/cumm (0.0-0.7); Absolute Neutrophil Count 2.64 k/cumm (1.2-6.7); Basophils % 0.7; Eosinophils % 6.6; HCT 42.6 % (40.0-50.0); HGB 14.2 g/dL (13.5-17.5); Immature Grans % 0.2 %; Lymphocytes % 34.9; Mean Corp. HGB Concentration 33.3 g/dL (32.0-36.0); Mean Corpuscular Volume 90.1 fL (80-95); Mean Platelet Volume 9.4 fL (8.0-11.0); Monocytes % 9.2; Neutrophils % 48.4; Platelet Count 122 x1000/uL (130-400); RBC 4.73 m/cumm (4.50-6.00); RBC Distribution Width 13.8 % (11.8-14.1); White Blood Cell Count 5.45 k/cumm (4.4-10.8)
[2020-01-26 15:42] LABS: Prothrombin Time 10.2 sec (9.3-11.0)
[2020-01-26 15:46] LABS: ALT 21 U/L (16-63); AST 17 U/L (15-37); Albumin 3.8 g/dL (3.4-5.0); Alkaline Phosphatase 128 U/L (46-116); Anion Gap 7.7 mmol/L (3-11); BUN 10 mg/dL (7-18); Bilirubin, Total 0.6 mg/dL (0.2-1.0); CO2 28.3 mmol/L (21.0-32.0); CREATININE 1.15 mg/dL (0.70-1.30); Calcium 8.9 mg/dL (8.5-10.1); Chloride 105 mmol/L (98-107); Glucose 82 mg/dL (74-106); Potassium 4.4 mmol/L (3.5-5.1); Sodium 141 mmol/L (136-145); Total Protein 6.6 g/dL (6.4-8.2)
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
[2020-01-26] MEDS: Acetaminophen 325 MG TAB 650 MG PO (16:24)
[2020-01-26 16:46] VITALS: BP 94/56; PULSE 46; TEMP 36.9; O2SAT 95
== END 2020-01-26 17:00 | disposition home or self-care (01) ==
PROVIDERS: Emergency Provider Emergency Medicine; PCP Nurse Practitioner
DX: S09.90XA Unspecified injury of head, initial encounter (principal); R11.2 Nausea with vomiting, unspecified; W19.XXXA Unspecified fall, initial encounter; I69.354 Hemiplegia and hemiparesis following cerebral infarction affecting left non-dominant side; Z79.01 Long term (current) use of anticoagulants; J44.9 Chronic obstructive pulmonary disease, unspecified; Z87.891 Personal history of nicotine dependence; I10 Essential (primary) hypertension
CPT/HCPCS: 36415; 80053; 99284; 70450; 72125; 85025; 85610

== ENCOUNTER 2020-02-06 14:19 | Emergency (ER) | payer MEDICARE, SELFPAY ==
[2020-02-06] VITALS (42 sets, daily range): BP systolic 96–143; BP diastolic 59–92; PULSE 59–74; RESP 9–28; TEMP 37.1–38.3; O2SAT 87–99
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
[2020-02-06] MEDS: Acetaminophen 500 MG TAB 1000 MG PO (15:08)
[2020-02-06] MEDS: Normal Saline Flush 10 ML SYR IVP ×2 (15:08→17:21)
[2020-02-06] MEDS: Normal Saline 1,000 ML 150 ML IV (15:27)
[2020-02-06 15:37] LABS: Abs Immature Grans 0.02 k/cumm (0.0-0.09); Absolute Basophil Count 0.02 k/cumm (0.0-0.2); Absolute Monocyte Count 1.11 k/cumm (0.11-0.7); Absolute Neutrophil Count 6.02 k/cumm (1.2-6.7); Basophils % 0.2; Eosinophils % 2.4; HCT 38.3 % (40.0-50.0); HGB 12.8 g/dL (13.5-17.5); Immature Grans % 0.2 %; Lactate 1.2 mmol/L (0.6-1.4); Lymphocytes % 11.9; Mean Corp. HGB Concentration 33.4 g/dL (32.0-36.0); Mean Corpuscular Volume 89.9 fL (80-95); Mean Platelet Volume 9.7 fL (8.0-11.0); Monocytes % 13.3; Platelet Count 123 x1000/uL (130-400); RBC 4.26 m/cumm (4.50-6.00); RBC Distribution Width 13.3 % (11.8-14.1); White Blood Cell Count 8.37 k/cumm (4.4-10.8)
[2020-02-06 15:54] LABS: Prothrombin Time 10.5 sec (9.3-11.0)
[2020-02-06 15:56] LABS: Creatine Kinase 234 U/L (39-308)
[2020-02-06 15:59] LABS: Bilirubin Negative (Negative); Blood Large (Negative); Clarity Clear (Clear); Glucose Negative (Negative); Ketones Negative (Negative); Leukocyte Esterase Negative (Negative); Nitrite Negative (Negative); Specific Gravity 1.025 (1.005-1.025)
[2020-02-06 15:59] LABS: ALT 20 U/L (16-63); AST 21 U/L (15-37); Albumin 3.4 g/dL (3.4-5.0); Alkaline Phosphatase 205 U/L (46-116); Anion Gap 7.2 mmol/L (3-11); BUN 16 mg/dL (7-18); CO2 29.8 mmol/L (21.0-32.0); CREATININE 1.04 mg/dL (0.70-1.30); Calcium 9.1 mg/dL (8.5-10.1); Chloride 100 mmol/L (98-107); Glucose 105 mg/dL (74-106); Lipase 126 U/L (73-393); Magnesium 2.1 mg/dL (1.8-2.4); Potassium 4.4 mmol/L (3.5-5.1); Sodium 137 mmol/L (136-145)
[2020-02-06 16:04] LABS: Troponin I < 0.05 ng/Ml (<0.06)
[2020-02-06 16:10] LABS: Bacteria Negative HPF (Negative); C & S Indicated? Yes; Casts Negative LPF (Negative); Crystals Negative HPF (Negative); Epithelial Cells Negative HPF (Negative); Mucus Negative (Negative); Other Cells Negative (Negative); RBC >50 HPF (0-2)
[2020-02-06] MEDS: Normal Saline - Diluent 50 ML VIAL IV (16:22)
[2020-02-06] MEDS: Omnipaque 350 MG/ML 100 ML BTL IJ (16:23)
--- NOTE | 2020-02-06 16:45 | DI.CT_ITS ---
EXAM: CT HEAD WO CLINICAL HISTORY: Fall at home ? seizure, prev CVA TECHNIQUE: COMPARISON: CT CHEST/ABD/PEL W from 02/06/2020 FINDINGS: Noncontrast cranial CT was performed. There is no evidence of acute intracranial hemorrhage, mass ef fect, or midline shift. Mild generalized cerebral atrophy noted. The orbital and temporal bone stru ctures appear intact. Visualized paranasal sinuses and mastoid air cells are generally clear. IMPRESSION: No evidence of acute intracranial process.
--- NOTE | 2020-02-06 16:48 | DI.CT_ITS ---
EXAM: CT CHEST/ABD/PEL W TECHNIQUE: CT examination of the chest, abdomen, and pelvis was performed with bolus infusion of 100 cc of Omnipaque 350. COMPARISON: CT THORAX ABDOMEN CTA from 08/27/2019 FINDINGS: There is no evidence of a thoracic vascular injury. The lungs are clear. No pneumothorax or pleural effusion. No mediastinal hematoma. No adenopathy in the chest. Tracheobronchial tree appears intact. The liver, spleen, and pancreas appear normal. Gallbladder and bile ducts are normal. Adrenals and kidneys are unremarkable. No evidence of urinary tract injury or obstruction. No abdominal or pelvic vascular injury seen. No abdominal or pelvic adenopathy. No significant abdomi nal wall hernia or hematoma. No evidence of bowel injury. IMPRESSION: No evidence of acute injury of the chest, abdomen, or pelvis. No evidence of acute pulmonary infecti on. DATA REPOSITORY: All CT scans at this facility are submitted to the National Radiology Data Registry (NRDR) Dose Index Registry (DIR) with the [employer] (ACR). RADIATION OPTIMIZATION: All CT scans at this facility use at least one of these dose optimization te chniques: automated exposure control; mA and/or kV adjustment per patient size (includes targeted exa ms where dose is matched to clinical indication); or iterative reconstruction.
--- NOTE | 2020-02-06 16:52 | DI.VRAD_ITS ---
PROCEDURE INFORMATION: Exam: CT Head Without Contrast Exam date and time: 02/06/2020 2:41 PM Age: 64 years old Clinical indication: Injury or trauma; Initial encounter; Blunt trauma (contusions or hematomas); Consciousness not specified; Injury date: 02/05; Injury details: Fall at home, ? seizure. Prev CVA TECHNIQUE: Imaging protocol: Computed tomography of the head without contrast. Radiation optimization: All CT scans at this facility use at least one of these dose optimization techniques: automated exposure control; mA and/or kV adjustment per patient size (includes targeted exams where dose is matched to clinical indication); or iterative reconstruction. COMPARISON: CT HEAD CERVICAL SPINE WO 01/26/2020 3:59 PM FINDINGS: Brain: Normal. No hemorrhage. Unremarkable white matter. No mass effect. Ventricles: Normal. No ventriculomegaly. Bones/joints: Unremarkable. No acute fracture. Sinuses: Visualized sinuses are unremarkable. No fluid levels. Mastoid air cells: Visualized mastoid air cells are well aerated. Soft tissues: Unremarkable. IMPRESSION: No acute intracranial abnormality. Dictated and Authenticated by: Abdelrahman Carrero MD. Ordering:SYEDA Escamilla MD
--- NOTE | 2020-02-06 17:04 | DI.VRAD_ITS ---
PROCEDURE INFORMATION: Exam: CT Chest With Contrast Exam date and time: 02/06/2020 4:41 PM Age: 64 years old Clinical indication: Fever and nausea and vomiting; Patient HX: Fever, cough, abdominal pain with n/v; Additional info: ? Covid- 19. Pui patient. TECHNIQUE: Imaging protocol: Computed tomography of the chest with intravenous contrast. Radiation optimization: All CT scans at this facility use at least one of these dose optimization techniques: automated exposure control; mA and/or kV adjustment per patient size (includes targeted exams where dose is matched to clinical indication); or iterative reconstruction. Contrast material: OMNIPAQUE 350; Contrast volume: 100 ml; Contrast route: IV; COMPARISON: No relevant prior studies available. FINDINGS: Lungs: No ground-glass opacity or consolidation. No masses. Pleural space: No pleural effusion. No pneumothorax. Heart: No cardiomegaly. No pericardial effusion. Aorta: No aortic aneurysm. Lymph nodes: No significant adenopathy. Bones/joints: No acute findings. Soft tissues: Unremarkable. IMPRESSION: No acute findings. PROCEDURE INFORMATION: Exam: CT Abdomen And Pelvis With Contrast Exam date and time: 02/06/2020 4:41 PM Age: 64 years old Clinical indication: Fever and nausea and vomiting; Patient HX: Fever, cough, abdominal pain with n/v; Additional info: ? Covid- 19. Pui patient. TECHNIQUE: Imaging protocol: Computed tomography of the abdomen and pelvis with intravenous contrast. Radiation optimization: All CT scans at this facility use at least one of these dose optimization techniques: automated exposure control; mA and/or kV adjustment per patient size (includes targeted exams where dose is matched to clinical indication); or iterative reconstruction. Contrast material: OMNIPAQUE 350; Contrast volume: 100 ml; Contrast route: IV; COMPARISON: No relevant prior studies available. FINDINGS: Liver: No mass. Gallbladder and bile ducts: No acute findings. No ductal dilation. Pancreas: Normal. No ductal dilation. Spleen: Normal. No splenomegaly. Adrenals: Normal. No mass. Kidneys and ureters: Normal. No hydronephrosis. Stomach and bowel: No acute findings. No obstruction. No mucosal thickening. Appendix: No evidence of appendicitis. Intraperitoneal space: Unremarkable. No free air. No significant fluid collection. Vasculature: No abdominal aortic aneurysm. Lymph nodes: No significant adenopathy. Bladder: Underdistended, possible wall thickening. Reproductive: Unremarkable as visualized. Bones/joints: No acute findings. Soft tissues: Unremarkable. IMPRESSION: No acute findings. Dictated and Authenticated by: Edgar Hollins MD. Ordering:SYEDA Escamilla MD
[2020-02-06] MEDS: Ketorolac 15 MG/ML VIAL IVP (17:21)
--- NOTE | 2020-02-06 18:24 | NUR.NOTE ---
Nursing Note:Called youth care specialist per dr orlando for [facility]
--- NOTE | 2020-02-06 18:38 | NUR.NOTE ---
Nursing Note: Outpatient covid-19 testing referral sent.
--- NOTE | 2020-02-06 18:56 | NUR.NOTE ---
Nursing Note: Pt unable to recall his home medications- states nothing has changed since last visit in ED within the last week.
--- NOTE | 2020-02-07 09:19 | PDOC.ERCMPRO ---
Care Management Progress Note CM rec'd consult for increased home health services due to increased falls and intermittent confusion with medications. LACHO spoke with Fuad in intake at [facility] who transferred this promotion writer to Raiza; life teacher. Raiza confirmed that [facility] services are limited to essential needs only at this time; unsure if PT can be added. Currently Miguel has RN 1x/wk for med pours with bubble packs. Miguel is awaiting outpatient testing for COVID-19. This will need to be resolved prior to additional service support coordination. LACHO called Diane Gold to confirm timing of outpatient test, Diane reported attempting to call Miguel this morning without success, and leaving a message requesting a 9:50 arrival. CM called Miguel who answered the phone, obviously sleeping @0915. He requested appointment for 1030. CM called Diane to confirm, and confirmed with Miguel as well, ensuring to request he remain in the vehicle.
== END 2020-02-06 18:50 | disposition home or self-care (01) ==
PROVIDERS: Emergency Provider Emergency Medicine; PCP Nurse Practitioner
DX: R53.1 Weakness (principal); R50.9 Fever, unspecified; R05 Cough; R11.2 Nausea with vomiting, unspecified; W19.XXXA Unspecified fall, initial encounter; J44.9 Chronic obstructive pulmonary disease, unspecified; I69.354 Hemiplegia and hemiparesis following cerebral infarction affecting left non-dominant side; Z79.01 Long term (current) use of anticoagulants
CPT/HCPCS: 36415; 74177; 80053; 82550; 83690; 93005; 96361; 96374; 99285; 70450; 71260; 81003; 81015; 83605; 83735; 84484; 85025; 85610; 87086; 93010; J1885; J3490

== ENCOUNTER 2020-02-07 08:24 | Outpatient (CLI) | payer MEDICARE, SELFPAY ==
[2020-02-10 19:45] LABS: SARS-CoV-2 RNA Undetected (Undetected); SARS-CoV-2 Specimen Source Nasopharynx
== END 2020-02-07 08:44 ==
PROVIDERS: PCP Nurse Practitioner; Visit Provider Emergency Medicine
DX: Z03.818 Encounter for observation for suspected exposure to other biological agents ruled out (principal)
CPT/HCPCS: U0003

== ENCOUNTER 2020-02-19 12:26 | Inpatient (IN) | payer MEDICARE, SELFPAY ==
[2020-02-19] VITALS (24 sets, daily range): BP systolic 103–128; BP diastolic 66–82; PULSE 42–62; RESP 12–18; TEMP 36.2–36.8; O2SAT 94–98
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
--- NOTE | 2020-02-19 12:45 | DI.CT_ITS ---
EXAM: CT HEAD WO CLINICAL HISTORY: trauma, Pt anticoagulated. TECHNIQUE: Imaging Protocol: Axial computed tomography images with coronal and sagittal reformatted images were created and reviewed COMPARISON: CT HEAD WO from 02/06/2020 FINDINGS: Ventricles and Extra axial spaces: Normal in size and morphology for the patient's age. Hemorrhage: None. Cerebral parenchyma: Mild atrophy Midline shift: None. Brainstem/Cerebellum: Normal. Calvarium: Normal. Visualized Paranasal sinuses/Mastoids: Clear. Soft Tissues: Unremarkable. IMPRESSION: No acute intracranial process. RADIATION DOSE DELIVERED: DATA REPOSITORY: All CT scans at this facility are submitted to the National Radiology Data Registry (NRDR) Dose Index Registry (DIR) with the [employer] [place] [employer] (ACR). RADIATION OPTIMIZATION: All CT scans at this facility use at least one of these dose optimization te chniques: automated exposure control; mA and/or kV adjustment per patient size (includes targeted exa ms where dose is matched to clinical indication); or iterative reconstruction.
--- NOTE | 2020-02-19 13:00 | DI.RAD_ITS ---
EXAM: XR CHEST 2V PA LATERAL CLINICAL HISTORY: syncope TECHNIQUE: 2D digital imaging was performed. COMPARISON: XR CHEST 2V PA LATERAL from 12/29/2019 FINDINGS: The heart size is within normal limits. The lungs appear clear. There is an old right upper rib d eformity. IMPRESSION: No acute abnormality.
[2020-02-19 13:35] LABS: HGB 12.7 g/dL (13.5-17.5); White Blood Cell Count 5.73 k/cumm (4.4-10.8)
[2020-02-19 13:36] LABS: Abs Immature Grans 0.01 k/cumm (0.0-0.09); Absolute Basophil Count 0.05 k/cumm (0.0-0.2); Absolute Eosinophil Count 0.33 k/cumm (0.0-0.7); Absolute Lymphocyte Count 1.64 k/cumm (1.2-3.4); Absolute Monocyte Count 0.49 k/cumm (0.11-0.7); Absolute Neutrophil Count 3.21 k/cumm (1.2-6.7); Basophils % 0.9; Eosinophils % 5.8; HCT 38.6 % (40.0-50.0); Immature Grans % 0.2 %; Lymphocytes % 28.6; Mean Corp. HGB Concentration 32.9 g/dL (32.0-36.0); Mean Corpuscular Hemoglobin 29.5 pg (27.0-33.0); Mean Corpuscular Volume 89.8 fL (80-95); Monocytes % 8.6; Neutrophils % 55.9; Platelet Count 217 x1000/uL (130-400); RBC Distribution Width 13.1 % (11.8-14.1)
[2020-02-19 15:13] LABS: ALT 16 U/L (16-63); AST 13 U/L (15-37); Albumin 3.5 g/dL (3.4-5.0); Alkaline Phosphatase 165 U/L (46-116); Anion Gap 5.7 mmol/L (3-11); BUN 11 mg/dL (7-18); Bilirubin, Total 0.4 mg/dL (0.2-1.0); CO2 30.3 mmol/L (21.0-32.0); CREATININE 1.27 mg/dL (0.70-1.30); Calcium 9.1 mg/dL (8.5-10.1); Chloride 105 mmol/L (98-107); Glucose 93 mg/dL (74-106); Potassium 4.7 mmol/L (3.5-5.1); Sodium 141 mmol/L (136-145); TSH (W/Ref FT4) 0.81 uIU/mL (0.36-3.74); Total Protein 6.6 g/dL (6.4-8.2)
[2020-02-19 15:16] LABS: Troponin I < 0.05 ng/Ml (<0.06)
[2020-02-19 15:49] LABS: Bilirubin Negative (Negative); Blood Trace-lysed (Negative); Clarity Clear (Clear); Glucose Negative (Negative); Ketones Negative (Negative); Leukocyte Esterase Negative (Negative); Nitrite Negative (Negative); Specific Gravity <= 1.005 (1.005-1.025); Urobilinogen 0.2 EU/dL (Up TO 0.2)
[2020-02-19 15:54] LABS: Bacteria Rare HPF (Negative); C & S Indicated? No; Casts Negative LPF (Negative); Crystals Negative HPF (Negative); Epithelial Cells Negative HPF (Negative); Mucus Negative (Negative); Other Cells Negative (Negative); WBC Negative HPF (0-5)
[2020-02-19 16:33] LABS: Troponin I < 0.05 ng/Ml (<0.06)
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
[2020-02-19] MEDS: Atorvastatin 40 MG TAB PO (21:03)
[2020-02-19] MEDS: Gabapentin 600 MG TAB PO (21:03)
[2020-02-19] MEDS: Apixaban 5 MG TAB PO (21:03)
[2020-02-19] MEDS: diazePAM 2 MG TAB PO (21:03)
[2020-02-19] MEDS: lamoTRIgine 100 MG TAB PO (21:17)
[2020-02-19] MEDS: traZODone 50 MG TAB 100 MG PO (22:17)
[2020-02-19] MEDS: Normal Saline Flush 10 ML SYR IVP (22:17)
[2020-02-19] MEDS: Mometasone 220 MCG 14 DOSE INHALER IH (22:50)
[2020-02-20] MEDS: fentaNYL 75 MCG PATCH TD (00:25)
[2020-02-20 00:31] VITALS: BP 118/70; PULSE 53; RESP 19; TEMP 36.4; O2SAT 95
[2020-02-20] MEDS: Patch Removal 1 EACH TP (00:42)
[2020-02-20 07:45] VITALS: BP 129/72; PULSE 46; RESP 16; TEMP 36.7; O2SAT 98
[2020-02-20] MEDS: Mometasone 220 MCG 14 DOSE INHALER IH (08:07)
[2020-02-20] MEDS: Citalopram 20 MG TAB 40 MG PO (08:42)
[2020-02-20] MEDS: Clopidogrel 75 MG TAB PO (08:42)
[2020-02-20] MEDS: Apixaban 5 MG TAB PO (08:42)
[2020-02-20] MEDS: Pantoprazole 40 MG TABCR PO (08:42)
[2020-02-20] MEDS: Multivitamin TAB 1 TAB PO (08:42)
[2020-02-20] MEDS: Metoprolol CR 25 MG TABCR 12.5 MG PO (08:43)
[2020-02-20] MEDS: Gabapentin 600 MG TAB PO ×2 (08:43→11:40)
[2020-02-20] MEDS: Lisinopril 5 MG TAB PO (08:43)
[2020-02-20] MEDS: lamoTRIgine 100 MG TAB PO (08:43)
[2020-02-20] MEDS: diazePAM 2 MG TAB PO (08:43)
[2020-02-20] MEDS: Magnesium Oxide 400 MG TAB PO (08:44)
[2020-02-20] MEDS: Isosorbide Dinitrate 10 MG TAB 20 MG PO ×2 (08:55→13:09)
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
[2020-02-20 10:55] VITALS: BP 145/74; PULSE 49; RESP 16; TEMP 36.8; O2SAT 98
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
[2020-02-20 11:41] LABS: Troponin I < 0.05 ng/Ml (<0.06)
--- NOTE | 2020-02-20 14:08 | PT.INTREAT ---
Date of service: 02/20/20 Time of Service: 14:08 PT Notes Visit Reasons: FALLING Inpatient Physical Therapy Treatment Note [facility] Date: February 20, 2020 PRECAUTIONS:Falls, Standard SUBJECTIVE: Miguel reports that he is frustrated with how much he has gone down hill since caring for his . He does not understand why his heart rate is so up and down. OBJECTIVE: Telemetry now being monitored. Admitted acute status for further monitoring. PAIN: Declines any pain BED MOBILITY/TRANSFERS Rolling L/R: SBA Supine-sit: HOB 30 degrees SBA Sit-supine: Ermelinda with LE lift into bed THEREX: Patient tolerated ankle pumps 10 reps with right LE, glut sets 10 reps, SLR 10 x with each leg providing cueing for proper breathing. LAQ 10 x with right, SAQ 10 x with left, Hip flexion in seated 10 reps each side. Knee flexion right with green theraband 10 reps, left 5 reps. Shoulder rows with green theraband 10 reps right, 5 reps left. Elbow flexion 10 reps right/left and shoulder flexion 10 reps right/left. HR ranged from 48 bpm up to 80 bpm following transfer. O2 saturation at 97% on room air. ASSESSMENT: Tolerated all therex well this afternoon. Vitals monitored HR remains up and down. Requires cueing to avoid holding his breath. Held on further transfers in PM session. PLAN: Patient to be seen bid for continued strength, transfers, gait with assistance, and mobility. Continue to monitor vitals. TREATMENT CODE/TIME: [id number] 30 minutes 13:30PM
--- NOTE | 2020-02-20 14:09 | W.NUTCONSULT ---
Date of service: 02/20/20 Time of Service: 14:09 Nutritional Consult ASSESSMENT: 64 year old male admitted with frequent falls, states he has lost >20 lbs in last 6 months since . BMI on low end of normal. Following regular diet, reports no loss of appetite. Requesting john milk at all meals (additional 600 kcal, 30 g pro daily). Appears poorly nourished. PMH: hx of dysphagia, grief, CHF. At risk for malnutrition, will follow po intake, weights daily and adjust meal plan for optimal intake. Estimated Needs: [id number] kcal, 55-66 g protein, 1800 ml. NUTRITIONAL DIAGNOSIS: malnutrition of chronic illness and inadequate intake INTERVENTION: regular meal plan john milk TID MONITORING AND EVALUATION: weight, po intake, labs Time Spent in Nutritional Counseling and Treatment: 10 min spent face to face
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
[2020-02-20 15:59] LABS: Troponin I < 0.05 ng/Ml (<0.06)
--- NOTE | 2020-02-22 15:14 | PDOC.CMDIS ---
- If Service Date Differs Date of service: 02/22/20 Time of Service: 15:15 LACE Index Scoring Tool - Questions: Length of Stay (in days): 3 Acuity (Admit via E.D.?): Yes Comorbidities: Previous M.I., Cerebrovascular Disease, Chronic Pulmonary Disease E.D. Visits: 10 - Answers: Total Score: 15 Risk of Readmission: High Risk Care Management Discharge Reason for Hospitalization: Falling Discharge Plan: Miguel will be discharged home with a resumption of home health services. He will transport with his son Marciano via private vehicle and follow up with his PCP. CM ordered a new manual wheelchair for Miguel through [employer] and his son will be picking it up today in [place] before he picks up Miguel. Patient/Family Education Needs: Discharge plan, limitations, follow up plan, Ask Me Three.
== END 2020-02-20 14:10 | disposition short-term general hospital (02) | DRG 92 ==
LOC: ER 19:57 → MS 02-20 02:30
PROVIDERS: Nurse Practitioner Acute Care; Admitting Provider General Practice; Emergency Provider Student in an Organized Health Care Education/Training Program; PCP Nurse Practitioner; Visit Provider Internal Medicine
DX: R29.6 Repeated falls (principal); G81.94 Hemiplegia, unspecified affecting left nondominant side; R07.9 Chest pain, unspecified; S09.90XA Unspecified injury of head, initial encounter; W19.XXXA Unspecified fall, initial encounter; I50.9 Heart failure, unspecified; R00.1 Bradycardia, unspecified; Z79.01 Long term (current) use of anticoagulants; J44.9 Chronic obstructive pulmonary disease, unspecified; I25.10 Atherosclerotic heart disease of native coronary artery without angina pectoris; K21.9 Gastro-esophageal reflux disease without esophagitis; Z86.711 Personal history of pulmonary embolism
CPT/HCPCS: 36415; 80053; 93005; 94640; 99222; 99285; 99316; 70450; 71046; 81003; 81015; 83735; 84443; 84484; 85025; 93010; 99310; J3490

== ENCOUNTER 2020-02-20 14:04 | Inpatient (IN) | payer MEDICARE, SELFPAY ==
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
[2020-02-20] MEDS: Isosorbide Dinitrate 10 MG TAB 20 MG PO (14:45)
--- NOTE | 2020-02-20 15:12 | CHAPLAIN ---
I visited with Miguel in the ED yesterday (02/18). He believed he was being discharged at that time with a heart monitor as he came in with cardiac issues and falls. Today he told me he was admitted yesterday because his heart rate was too low. His Evita 7 months ago and Miguel said she misses her very much. He said he doesn't think he'll live more than another year, and that he is okay with dying because he would be with Evita again. He is not supported by any of his kids, he said, although one son, Marciano, lives with him. Miguel is a member of the [employer] and called another member there to let the rastafarian leadership know he is here. I will continue to visit.
[2020-02-20 15:35] VITALS: PULSE 43; RESP 19; TEMP 36.6; O2SAT 97
[2020-02-20 15:44] VITALS: BP 102/60; PULSE 45
[2020-02-20 16:12] VITALS: O2SAT 99
[2020-02-20] MEDS: Gabapentin 600 MG TAB PO ×2 (16:34→19:35)
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
[2020-02-20 19:26] VITALS: BP 96/58; PULSE 47; RESP 18; TEMP 36.8; O2SAT 96
[2020-02-20] MEDS: Mometasone 220 MCG 14 DOSE INHALER IH (19:34)
[2020-02-20] MEDS: diazePAM 2 MG TAB PO (19:35)
[2020-02-20] MEDS: Atorvastatin 40 MG TAB PO (19:35)
[2020-02-20] MEDS: lamoTRIgine 100 MG TAB PO (19:35)
[2020-02-20] MEDS: Apixaban 2.5 MG TAB PO (19:36)
[2020-02-20 21:43] LABS: Troponin I < 0.05 ng/Ml (<0.06)
[2020-02-20 23:53] VITALS: BP 109/70; PULSE 48; RESP 18; TEMP 36.7; O2SAT 99
[2020-02-21] VITALS (7 sets, daily range): BP systolic 100–136; BP diastolic 59–82; PULSE 46–54; RESP 16–18; TEMP 36.2–37.2; O2SAT 93–99
[2020-02-21] MEDS: Acetaminophen 325 MG TAB 650 MG PO ×2 (04:37→12:48)
[2020-02-21 06:43] LABS: Abs Immature Grans 0.01 k/cumm (0.0-0.09); Absolute Basophil Count 0.03 k/cumm (0.0-0.2); Absolute Eosinophil Count 0.33 k/cumm (0.0-0.7); Absolute Lymphocyte Count 1.74 k/cumm (1.2-3.4); Absolute Monocyte Count 0.66 k/cumm (0.11-0.7); Basophils % 0.5; Eosinophils % 5.3; HCT 40.2 % (40.0-50.0); HGB 13.3 g/dL (13.5-17.5); Immature Grans % 0.2 %; Lymphocytes % 28.2; Mean Corp. HGB Concentration 33.1 g/dL (32.0-36.0); Mean Corpuscular Hemoglobin 29.8 pg (27.0-33.0); Mean Corpuscular Volume 90.1 fL (80-95); Mean Platelet Volume 9.9 fL (8.0-11.0); Monocytes % 10.7; Neutrophils % 55.1; Platelet Count 181 x1000/uL (130-400); RBC 4.46 m/cumm (4.50-6.00); RBC Distribution Width 13.3 % (11.8-14.1); White Blood Cell Count 6.17 k/cumm (4.4-10.8)
[2020-02-21 07:02] LABS: Anion Gap 4.2 mmol/L (3-11); BUN 14 mg/dL (7-18); CO2 32.8 mmol/L (21.0-32.0); CREATININE 1.14 mg/dL (0.70-1.30); Calcium 9.1 mg/dL (8.5-10.1); Chloride 106 mmol/L (98-107); Glucose 93 mg/dL (74-106); Magnesium 1.9 mg/dL (1.8-2.4); Potassium 4.1 mmol/L (3.5-5.1); Sodium 143 mmol/L (136-145); Troponin I < 0.05 ng/Ml (<0.06)
[2020-02-21] MEDS: Citalopram 20 MG TAB 40 MG PO (07:59)
[2020-02-21] MEDS: diazePAM 2 MG TAB PO ×2 (07:59→20:00)
[2020-02-21] MEDS: Clopidogrel 75 MG TAB PO (07:59)
[2020-02-21] MEDS: Multivitamin TAB 1 TAB PO (07:59)
[2020-02-21] MEDS: Apixaban 2.5 MG TAB PO ×2 (08:00→20:00)
[2020-02-21] MEDS: Gabapentin 600 MG TAB PO ×4 (08:00→20:01)
[2020-02-21] MEDS: Pantoprazole 40 MG TABCR PO (08:00)
[2020-02-21] MEDS: lamoTRIgine 100 MG TAB PO ×2 (08:00→19:59)
[2020-02-21] MEDS: Isosorbide Dinitrate 10 MG TAB 20 MG PO ×2 (08:01→13:36)
[2020-02-21] MEDS: MORPHine 2 MG/ML SYR IVP ×2 (08:01→15:45)
[2020-02-21] MEDS: Mometasone 220 MCG 14 DOSE INHALER IH ×2 (08:05→20:01)
[2020-02-21] MEDS: Normal Saline Flush 10 ML SYR IVP ×2 (08:08→15:46)
[2020-02-21] MEDS: Lisinopril 5 MG TAB PO (09:00)
--- NOTE | 2020-02-21 10:36 | W.PM.PROGNOT ---
Date of Service Date of service: 02/21/20 Time of Service: 10:36 Assessment and Plan Assessment and plan (1) Chest pain: Status: Acute Assessment and plan: resolved. serial troponins negative. no acute ST segment changes. will continue beta duarte, plavix, statin and nitrite (2) Frequent falls: Status: Acute Assessment and plan: fall precautions, PT evaluation, new wheelchair ordered. falls associated with lack of brakes on his current chair. (3) Cerebrovascular accident (CVA) with left hemiparesis: Status: Chronic Assessment and plan: stable. on plavix and statin (4) Chronic pain: Status: Chronic Assessment and plan: is having left sided upper and lower extremity pain which is chronic for him. continue his gabapentin. Qualifiers: Chronic pain type: chronic pain syndrome Qualified Code(s): G89.4 - Chronic pain syndrome (5) DVT prophylaxis: Status: Acute Assessment and plan: is on apixaban for history of Pulmonary embolism . (6) Discharge planning issues: Status: Acute Assessment and plan: case management following, question if he could benefit from a short rehabilitation stay. PT referral Subjective Subjective Patient reports: still having pain (left sided from upper torso to foot. no aggravating or alleviating factors), tolerating a regular diet, no bowel movement and afebrile; denies nausea and shortness of breath Exam Narrative Exam Narrative: General: no acute distress, disheveled (older than stated age), frail appearing and ill appearing chronically Nutritional Appearance: thin HENMT Head: normal to inspection, normocephalic and atraumatic Resp Effort & Inspection: normal respiratory effort Auscultation: clear to auscultation bilaterally Cardio Rate: regular rate Rhythm: regular rhythm GI Inspection: normal to inspection Palpation: soft Auscultation: normal bowel sounds Neuro General: patient alert, patient awake and patient oriented x3 Extrem Left upper extremity: abnormal to inspection (contracted hand, left hemiparesis from an old CVA) Psych Mental Status: mental status grossly normal Speech and Movement: speech and movement normal Mood: congruent mood Affect: normal affect Objective Objective Clinical Data: Abnormal lab results 02/21/20 02/21/20 Range/Units 06:15 06:15 RBC 4.46 L (4.50-6.00) m/cumm Hgb 13.3 L (13.5-17.5) g/dL Carbon Dioxide 32.8 H (21.0-32.0) mmol/L Vital Signs Temperature 37.1 C 02/21/20 07:25 Temperature Source Temporal Artery Scan 02/21/20 07:25 Pulse 50 L 02/21/20 07:25 Pulse Rhythm Regular 02/21/20 04:30 Respiratory Rate 16 02/21/20 07:25 Respiratory Effort 02/21/20 04:30 Respiratory Depth Normal 02/21/20 04:30 Respiratory Pattern Normal 02/21/20 04:30 Blood Pressure 100/61 02/21/20 07:25 Pulse Oximetry 97 02/21/20 07:25 Oxygen Delivery Method Room Air 02/21/20 07:25 Oxygen Flow Rate 0 02/21/20 07:25 Fraction of Inspired Oxygen (FIO2) 02/20/20 16:12 Pain Level 8 02/21/20 08:01 Intake & Output 02/20/20 02/20/20 02/21/20 11:59 23:59 11:59 Intake Total 240 / 240 500 / 500 Output Total 300 / 300 Balance 240 / 240 200 / 200 Weight 55.792 kg 58.1 kg Intake: Oral 240 / 240 500 / 500 Output: Urine 300 / 300 Other: Urine Color Yellow Urine Appearance Clear Clear Voiding Methods Urinal Laboratory Results WBC 6.17 k/cumm (4.4-10.8) 02/21/20 06:15 RBC 4.46 m/cumm (4.50-6.00) L 02/21/20 06:15 Hgb 13.3 g/dL (13.5-17.5) L 02/21/20 06:15 Hct 40.2 % (40.0-50.0) 02/21/20 06:15 MCV 90.1 fL (80-95) 02/21/20 06:15 MCH 29.8 pg (27.0-33.0) 02/21/20 06:15 MCHC 33.1 g/dL (32.0-36.0) 02/21/20 06:15 RDW 13.3 % (11.8-14.1) 02/21/20 06:15 Plt Count 181 x1000/uL (130-400) 02/21/20 06:15 MPV 9.9 fL (8.0-11.0) 02/21/20 06:15 Immature Gran % 0.2 % 02/21/20 06:15 Neutrophils % 55.1 02/21/20 06:15 Lymphocytes % 28.2 02/21/20 06:15 Monocytes % 10.7 02/21/20 06:15 Eosinophils % 5.3 02/21/20 06:15 Basophils % 0.5 02/21/20 06:15 Absolute Neutrophils 3.40 k/cumm (1.2-6.7) 02/21/20 06:15 Absolute Lymphocytes 1.74 k/cumm (1.2-3.4) 02/21/20 06:15 Absolute Monocytes 0.66 k/cumm (0.11-0.7) 02/21/20 06:15 Absolute Eosinophils 0.33 k/cumm (0.0-0.7) 02/21/20 06:15 Absolute Basophils 0.03 k/cumm (0.0-0.2) 02/21/20 06:15 Sodium 143 mmol/L (136-145) 02/21/20 06:15 Potassium 4.1 mmol/L (3.5-5.1) 02/21/20 06:15 Chloride 106 mmol/L (98-107) 02/21/20 06:15 Carbon Dioxide 32.8 mmol/L (21.0-32.0) H 02/21/20 06:15 Anion Gap 4.2 mmol/L (3-11) 02/21/20 06:15 BUN 14 mg/dL (7-18) 02/21/20 06:15 Creatinine 1.14 mg/dL (0.70-1.30) 02/21/20 06:15 Estimated GFR/1.73 m2 >= 60.00 (mL/min/1.73m2) 02/21/20 06:15 Glucose 93 mg/dL (74-106) 02/21/20 06:15 Calcium 9.1 mg/dL (8.5-10.1) 02/21/20 06:15 Magnesium 1.9 mg/dL (1.8-2.4) 02/21/20 06:15 Troponin I < 0.05 ng/Ml (<0.06) 02/21/20 06:15
[2020-02-21] MEDS: Magnesium Oxide 400 MG TAB PO (10:43)
--- NOTE | 2020-02-21 11:31 | PTTR_ITS ---
Date of service: 02/21/20 Time of Service: 11:31 PT Notes Visit Reasons: CHEST PAIN Inpatient Physical Therapy Treatment Note [facility] Date: February 21, 2020 PRECAUTIONS:Falls, Standard SUBJECTIVE: Miguel notes that he did not sleep well last night. He notes that his left hip continues to be giving him some trouble. Noting pain with activity. OBJECTIVE: PAIN: 4/10 on VAS BED MOBILITY/TRANSFERS Supine-sit: HOB 30 degrees, standby assist in am, Supervision in pm Sit-supine: Ermelinda with LE lift into bed Sit-stand: standby assist in am, supervision in pm Stand-sit: standby assist in am with cueing for proper hand placement, supervision in pm Bed-wheelchair: Supervision wheelchair-bed: Supervision GAIT Assistive Device: FWW Weight bearing: FWB with use of AFO L LE Assist: CGA Distance: 25ft bed to door then back to bed Deviations: step to pattern THEREX: Session 1: Patient tolerated supine ankle pumps active right, active assisted left, glutes set x10 reps, straight leg raise x10 rep right/left, lower quadrant 10 times right/left, hip flexion seated 10 times right/left, dated ham curl via green Thera-Band 10 reps right 5 reps left, scapular rows green Thera- Band 10 reps, shoulder flexion 10 reps right/left, elbow flexion right 10 reps left active assisted 10 reps. Session 2: Patient noting more soreness into left hip completed modified Therex including longer quad 10 reps right/left, seated hip flexion 10 reps right/left, shoulder flexion 10 reps right/left, elbow flexion 10 reps actively right active left. ASSESSMENT: Patients level of assistance is reducing. Demonstrates good technique with supervision only getting out of bed into a wheelchair. Was able to independently don/doff his AFO. Endurance remains limited secondary to fatigue and complaints of left hip pain. Continues to require skilled PT services to promote level of independence with transfers, mobility, gait, and ADL's. PLAN: Continue 2x daily promoting functional transfers, endurance and level of independence to be able to return home vs SNF for rehab. TREATMENT CODE/TIME: Session 1 [id number] 25 minutes 8:45 AM ; Session 2 [id number] 30 minutes 11:00 AM
--- NOTE | 2020-02-21 12:45 | PHA.REVIEW ---
Pharmacy Admission Review - Admission Clinical Review (Last Updated 02/21/20 @ 10:48 by Priyanka Medina NP) Frequent falls (Acute) Discharge planning issues (Acute) DVT prophylaxis (Acute) Chest pain (Acute) aripiprazole Allergy (Mild, Verified 02/19/20 12:36) SKIN RASH codeine Allergy (Unknown, Verified 02/19/20 12:36) Nausea, vomiting, rash aspirin Adverse Reaction (Unknown, Verified 02/19/20 12:36) Skin Rash Height 5 ft 4 in Weight 58.1 kg - Comments Comments/Follow Ups: chest seems to be fully resolved with sl nitro, new wheel chair ordered - Renal Dosing Renal Dosing: BUN 14 mg/dL (7-18) 02/21/20 06:15 Creatinine 1.14 mg/dL (0.70-1.30) 02/21/20 06:15 Medications needing adjustments: Reviewed - Anticoagulation Anticoagulation: Hgb 13.3 g/dL (13.5-17.5) L 02/21/20 06:15 Hct 40.2 % (40.0-50.0) 02/21/20 06:15 Plt Count 181 x1000/uL (130-400) 02/21/20 06:15 Creatinine 1.14 mg/dL (0.70-1.30) 02/21/20 06:15 DVT Prohphylaxis: N/A Therapeutic Anticoagulation: Reviewed Medications: Apixaban (dose has been dropped to prophylactic dosing as PE is likely fully resolved at this point for note from Priyanka) - Opiate Usage Evaluate Pain Scale/Pains Meds: Reviewed (morphine PRN) Scheduled Bowel Reg ordered if on Opiates?: No - Relevant Labs Sodium 143 mmol/L (136-145) 02/21/20 06:15 Potassium 4.1 mmol/L (3.5-5.1) 02/21/20 06:15 Chloride 106 mmol/L (98-107) 02/21/20 06:15 Magnesium 1.9 mg/dL (1.8-2.4) 02/21/20 06:15 Electrolytes, C-Reactive P, ESR: Reviewed - DM Control DM Control: Glucose 93 mg/dL (74-106) 02/21/20 06:15 Insulin Dosing: Reviewed - Heart Failure/IL Heart Failure/IL: Troponin I < 0.05 ng/Ml (<0.06) 02/21/20 06:15 EF%, FEDERICO's, B-Blockers, Diuretics: Reviewed (Isosorbride, nitro prn) - BP Control BP Control: Blood Pressure 100/61 Blood Pressure 109/59 Blood Pressure 114/69 If elevated: Reviewed
--- NOTE | 2020-02-21 15:04 | PDOC.CMPRO ---
- If Service Date Differs Date of service: 02/21/20 Time of Service: 15:04 Care Management Progress Note S/O: Miguel is sitting up in bed when CM comes to meet with him. He is pleasant and talkative and says he is looking forward to returning home, but won't be able to go home until he has a new wheelchair, as the one he owns has no brakes. CM advises him Derrell from [employer] has been trying to reach him to discuss the wheelchair and to obtain a credit card number, as apparently every account opened with [employer] now has to have a credit card on file. Together, we call [employer] and speak with Dimitri who advises Miguel has a past due bill for a nebulizer and concentrator obtained in May of 2019 that needs to be paid before they will release the wheelchair. The amount of last year's bill is $110.78 and the first payment for the wheelchair, which is due at the time the wheelchair is picked up, is $8.00 (13 monthly payments of $8.00), for a total of $118.78 due now. Miguel advises he is unable to pay the past due bill and the first wheelchair payment, so CM contacts Brandy at [employer] to see if they can assist Miguel in paying the amount due now. CM is awaiting a return phone call from [employer]. CM will continue to follow. A: Miguel is a 64 year old male admitted to [facility] on 02/20/2020 for chest pain. P: Anticipate Miguel will return home once the new wheelchair is obtained and he is medically cleared by provider. He will resume Home Health RN and PT and Meals on Wheels following discharge. Miguel will follow-up with his PCP and discharge plan of care as directed. He will be transported home via [facility] wheelchair van to be coordinated by CM when ready. CM will continue to support Miguel and his discharge planning needs.
[2020-02-21] MEDS: Atorvastatin 40 MG TAB PO (20:00)
[2020-02-21] MEDS: fentaNYL 75 MCG PATCH TD (21:14)
[2020-02-22 00:08] VITALS: BP 103/63; PULSE 57; RESP 19; TEMP 37.1; O2SAT 99
[2020-02-22 03:46] VITALS: BP 122/78; PULSE 62; RESP 18; TEMP 36.8; O2SAT 99
[2020-02-22] MEDS: Acetaminophen 325 MG TAB 650 MG PO ×2 (04:50→11:20)
[2020-02-22] MEDS: MORPHine 2 MG/ML SYR IVP (06:00)
[2020-02-22] MEDS: Mometasone 220 MCG 14 DOSE INHALER IH (07:53)
[2020-02-22] MEDS: Lisinopril 5 MG TAB PO (08:03)
[2020-02-22] MEDS: Clopidogrel 75 MG TAB PO (08:03)
[2020-02-22] MEDS: Gabapentin 600 MG TAB PO ×2 (08:03→11:20)
[2020-02-22] MEDS: Pantoprazole 40 MG TABCR PO (08:03)
[2020-02-22] MEDS: Citalopram 20 MG TAB 40 MG PO (08:04)
[2020-02-22] MEDS: lamoTRIgine 100 MG TAB PO (08:04)
[2020-02-22] MEDS: Multivitamin TAB 1 TAB PO (08:04)
[2020-02-22] MEDS: diazePAM 2 MG TAB PO (08:04)
[2020-02-22] MEDS: Apixaban 2.5 MG TAB PO (08:04)
[2020-02-22 08:05] VITALS: BP 124/73; PULSE 55; RESP 17; TEMP 37.5; O2SAT 98
[2020-02-22] MEDS: Isosorbide Dinitrate 10 MG TAB 20 MG PO ×2 (10:36→14:26)
[2020-02-22] MEDS: Metoprolol CR 25 MG TABCR 12.5 MG PO (10:36)
[2020-02-22] MEDS: Magnesium Oxide 400 MG TAB PO (10:36)
[2020-02-22] MEDS: Normal Saline Flush 10 ML SYR IVP (10:38)
[2020-02-22 11:26] VITALS: BP 111/61; PULSE 59; RESP 17; TEMP 37.2; O2SAT 99
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
--- NOTE | 2020-02-22 13:29 | PT.INTREAT ---
Date of service: 02/22/20 Time of Service: 13:29 PT Notes Visit Reasons: CHEST PAIN Inpatient Physical Therapy Treatment Note [facility] Date: 12/24/2019 PRECAUTIONS: Falls. Standard. Activity as tolerated. Left AFO on when out of bed. SUBJECTIVE: Patient reports 4/10 generalized body pain at rest and with movement. No report of left hip pain. He states that he has taken his pain medication earlier which he thinks will help. He is very much cautious about having his limbs moved as this can potentially hurt him. Patient reports that he has not had the ability to sleep well at night since the of his and that he has fallen 8 times in the past 3 months. He denies headache, chest pain, and dizziness throughout PT session. OBJECTIVE: Telemetry monitoring in place. AFO on the left LE donned. Bilateral TEDS on. PAIN: 4/10 generalized body pain at rest and improvement BED MOBILITY/TRANSFERS Sit-stand from bedside recliner: Supervision with use of right UE for support Stand-sit onto wheelchair and bedside recliner: Standby assist with use of right UE for support Bedside recliner to wheelchair Standby assist using front wheeled walker Wheelchair to bedside recliner: Standby assist using front wheeled walker GAIT Assistive Device: FWW Weight bearing: FWB with use of AFO L LE Assist: CGA Distance: 80 feet. In the afternoon, 100 feet x 2 Deviations: Step to gait pattern. Left leg circumduction with decreased knee extension and step height seen. Had a mild LOB in the afternoon towards the end of his walk but R foot was able to support and stabilize patient. THEREX With the right hand holding onto a horizontal bar, patient was able to tolerate partial knee bends x10 with CGA of PT. He also tolerated bilateral heel raises with both hands holding onto horizontal bar x10 with CGA of PT. with hands clasped together patient was able to perform forward flexion x10 and diagonal/trunk pattern to right into left x10 each. HR was closely monitored during session which ranged from 58 to 61 bpm and oxygen saturation from 98% to 99% on room air throughout. Intermittent rests were given to minimize post exercise soreness adding to pre-existing pain complaint. ASSESSMENT: Patient is demonstrating much improved mobility ADL performance without any chest pain complaints. Pain is tolerable trending between 4-7/10. Continues to require skilled PT services to promote level of independence with transfers, mobility, gait, and ADL's. PLAN: Continue 2x daily promoting functional transfers, endurance and level of independence to be able to return home vs SNF for rehab. DISCHARGE RECOMMENDATIONS: Will benefit from a wheelchair with anti-tippers, pressure relieving cushion, and seat belt as enabler at discharge destination. Patient will benefit from home health PT services in order to progress mobility level using front wheeled walker, assess home safety, identify additional equipment needs, and establish a functional maintenance program that will increase ability of patient to remain at home. TREATMENT CODE/TIME: Session 1??08133 x 28 minutes, 96310 x 27 minutes beginning at 9:04 AM ; Session 2??39010 x 23 minutes beginning at 13:29 PM.
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
[2020-02-26 08:59] LABS: COVID-19 RT-PCR UVMMC Result Negative (Negative)
== END 2020-02-22 14:37 | disposition home health service (06) | DRG 313 ==
PROVIDERS: Admitting Provider Nurse Practitioner Acute Care; PCP Nurse Practitioner; Visit Provider Internal Medicine
DX: R07.89 Other chest pain (principal); I69.354 Hemiplegia and hemiparesis following cerebral infarction affecting left non-dominant side; R29.6 Repeated falls; G89.29 Other chronic pain; J44.9 Chronic obstructive pulmonary disease, unspecified
CPT/HCPCS: 36415; 80048; 94640; 97110; 97162; 97530; 99223; 99233; 99239; U0003; 83735; 84484; 85025; 93005; 93010; J2270

== ENCOUNTER 2020-03-05 13:24 | Emergency (ER) | payer MEDICARE, SELFPAY ==
[2020-03-05] VITALS (19 sets, daily range): BP systolic 130–137; BP diastolic 74–75; PULSE 46–58; RESP 10–20; TEMP 36.8; O2SAT 79–100
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
[2020-03-05] MEDS: Lactated Ringers 1,000 ML 1000 ML IV (13:45)
--- NOTE | 2020-03-05 14:00 | DI.CT_ITS ---
EXAM: CT HEAD CERVICAL SPINE WO CLINICAL HISTORY: head injury, episodes of unresponsiveness. TECHNIQUE: Imaging Protocol: Axial computed tomography images with coronal and sagittal reformatted images were created and reviewed COMPARISON: CT HEAD WO from 02/19/2020 FINDINGS: Head CT Ventricles and Extra axial spaces: Normal in size and morphology for the patient's age. Hemorrhage: None. Cerebral parenchyma: Normal. Midline shift: None. Brainstem/Cerebellum: Normal. Calvarium: Normal. Visualized Paranasal sinuses: Mild ethmoid mucosal thickening. Mastoids: Clear. IMPRESSION: No acute abnormality. FINDINGS: Cervical Spine CT BONES: Vertebral body heights are maintained. . Alignment is normal. There is no evidence of acute fr acture. Previous Caterina 9 laminectomy is again noted from C4 through C8. Partial fusion is again note d at C3-4. There is disc space narrowing throughout and endplate osteophytes as well as facet degene rative changes. There is no significant narrowing of the central canal. There is bilateral neural f oraminal narrowing from C3-4 through C6-7. SOFT TISSUES: No paraspinal hematoma. The airway appears intact. IMPRESSION: Degenerative and postsurgical changes, no acute abnormality. RADIATION DOSE DELIVERED: DATA REPOSITORY: All CT scans at this facility are submitted to the National Radiology Data Registry (NRDR) Dose Index Registry (DIR) with the [employer] (ACR). RADIATION OPTIMIZATION: All CT scans at this facility use at least one of these dose optimization te chniques: automated exposure control; mA and/or kV adjustment per patient size (includes targeted exa ms where dose is matched to clinical indication); or iterative reconstruction.
[2020-03-05 14:41] LABS: Absolute Basophil Count 0.03 k/cumm (0.0-0.2); Absolute Eosinophil Count 0.35 k/cumm (0.0-0.7); Absolute Lymphocyte Count 1.39 k/cumm (1.2-3.4); Absolute Neutrophil Count 1.63 k/cumm (1.2-6.7); Basophils % 0.8; Eosinophils % 9.5; HCT 40.2 % (40.0-50.0); HGB 13.2 g/dL (13.5-17.5); Lymphocytes % 37.6; Mean Corp. HGB Concentration 32.8 g/dL (32.0-36.0); Mean Corpuscular Hemoglobin 29.7 pg (27.0-33.0); Mean Corpuscular Volume 90.5 fL (80-95); Mean Platelet Volume 10.1 fL (8.0-11.0); Monocytes % 8.1; Platelet Count 148 x1000/uL (130-400); RBC 4.44 m/cumm (4.50-6.00); RBC Distribution Width 13.2 % (11.8-14.1)
[2020-03-05 14:52] LABS: INR 1.1 (0.9-1.1); PTT Activated 27.4 sec (21.0-31.4); Prothrombin Time 10.7 sec (9.3-11.0)
[2020-03-05 14:54] LABS: ALT 19 U/L (16-63); AST 15 U/L (15-37); Albumin 3.7 g/dL (3.4-5.0); Alkaline Phosphatase 174 U/L (46-116); Anion Gap 3.8 mmol/L (3-11); BUN 14 mg/dL (7-18); Bilirubin, Total 0.3 mg/dL (0.2-1.0); CO2 30.2 mmol/L (21.0-32.0); CREATININE 1.15 mg/dL (0.70-1.30); Calcium 8.9 mg/dL (8.5-10.1); Chloride 104 mmol/L (98-107); Glucose 90 mg/dL (74-106); Potassium 4.9 mmol/L (3.5-5.1); Sodium 138 mmol/L (136-145); Total Protein 6.8 g/dL (6.4-8.2)
[2020-03-05 14:55] LABS: Troponin I < 0.05 ng/Ml (<0.06)
== END 2020-03-05 16:31 | disposition home or self-care (01) ==
PROVIDERS: Emergency Provider Physician Assistant; PCP Nurse Practitioner
DX: S09.90XA Unspecified injury of head, initial encounter (principal); M54.2 Cervicalgia; W19.XXXA Unspecified fall, initial encounter; R29.6 Repeated falls; T40.4X5A Adverse effect of other synthetic narcotics, initial encounter; J44.9 Chronic obstructive pulmonary disease, unspecified; Z87.891 Personal history of nicotine dependence; I10 Essential (primary) hypertension; Z99.3 Dependence on wheelchair
CPT/HCPCS: 36415; 80053; 96360; 99284; 70450; 72125; 83735; 84484; 85025; 85610; 85730; 99285

== ENCOUNTER → 2020-03-13 08:06 | Outpatient (BNVA) | payer MEDICARE, SELFPAY | PROVIDERS: PCP Nurse Practitioner; Referring Provider Nurse Practitioner; Visit Provider Psychiatry & Neurology Neurology | DX: I63.30 Cerebral infarction due to thrombosis of unspecified cerebral artery (principal); G40.909 Epilepsy, unspecified, not intractable, without status epilepticus; I10 Essential (primary) hypertension; J44.9 Chronic obstructive pulmonary disease, unspecified; Z87.820 Personal history of traumatic brain injury | CPT/HCPCS: 99214 ==

== ENCOUNTER 2020-03-18 09:53 | Outpatient (REF) | payer MEDICARE, SELFPAY ==
[2020-03-19 10:41] LABS: Calculated LDL 70 mg/dL (<100); Cholesterol 130 mg/dL (<200); HDL Cholesterol 47 mg/dL (40-60); Triglyceride 66 mg/dL (<150)
== END 2020-03-18 10:13 ==
LOC: LBN 09:53
PROVIDERS: PCP Nurse Practitioner; Visit Provider Nurse Practitioner
DX: E78.5 Hyperlipidemia, unspecified (principal); I25.10 Atherosclerotic heart disease of native coronary artery without angina pectoris
CPT/HCPCS: 80061

== ENCOUNTER 2020-03-22 04:12 | Outpatient (CLI) | payer MEDICARE, SELFPAY | END 2020-03-22 04:32 | PROVIDERS: PCP Nurse Practitioner; Visit Provider Nurse Practitioner | DX: I25.10 Atherosclerotic heart disease of native coronary artery without angina pectoris (principal); R00.1 Bradycardia, unspecified; Z53.8 Procedure and treatment not carried out for other reasons ==

== ENCOUNTER 2020-04-07 15:57 | Inpatient (IN) | payer MEDICARE, SELFPAY ==
[2020-04-07] VITALS (55 sets, daily range): BP systolic 86–133; BP diastolic 60–118; PULSE 74–133; RESP 9–26; O2SAT 86–99
[2020-04-07 16:48] LABS: Absolute Basophil Count 0.04 k/cumm (0.0-0.2); Absolute Eosinophil Count 0.38 k/cumm (0.0-0.7); Absolute Monocyte Count 0.53 k/cumm (0.11-0.7); Absolute Neutrophil Count 2.74 k/cumm (1.2-6.7); Basophils % 0.7; Eosinophils % 6.7; HCT 43.3 % (40.0-50.0); HGB 13.8 g/dL (13.5-17.5); Lymphocytes % 35.1; Mean Corp. HGB Concentration 31.9 g/dL (32.0-36.0); Mean Corpuscular Hemoglobin 28.9 pg (27.0-33.0); Mean Corpuscular Volume 90.8 fL (80-95); Mean Platelet Volume 9.7 fL (8.0-11.0); Monocytes % 9.3; Neutrophils % 48.2; Platelet Count 141 x1000/uL (130-400); RBC 4.77 m/cumm (4.50-6.00); RBC Distribution Width 13.9 % (11.8-14.1); White Blood Cell Count 5.69 k/cumm (4.4-10.8)
[2020-04-07 17:01] LABS: INR 1.1 (0.9-1.1); PTT Activated 27.7 sec (21.0-31.4)
[2020-04-07 17:06] LABS: ALT 19 U/L (16-63); AST 16 U/L (15-37); Albumin 4.1 g/dL (3.4-5.0); Alkaline Phosphatase 168 U/L (46-116); Anion Gap 7.7 mmol/L (3-11); BUN 14 mg/dL (7-18); Bilirubin, Total 0.4 mg/dL (0.2-1.0); CO2 29.3 mmol/L (21.0-32.0); CREATININE 1.34 mg/dL (0.70-1.30); Chloride 103 mmol/L (98-107); Estimated GFR 53.67 (mL/min/1.73m2); Glucose 106 mg/dL (74-106); Lipase 132 U/L (73-393); Potassium 4.6 mmol/L (3.5-5.1); Sodium 140 mmol/L (136-145); Total Protein 7.1 g/dL (6.4-8.2)
[2020-04-07] MEDS: Normal Saline 1,000 ML 500 ML IV (17:09)
[2020-04-07 17:14] LABS: Troponin I < 0.05 ng/mL (<0.06)
[2020-04-07 17:25] LABS: Salicylate < 2.8 mg/dL (2.8-20.0)
[2020-04-07 17:28] LABS: Acetaminophen < 2 ug/mL (10-30); ETHANOL BLOOD < 3.0 mg/dL (<3)
[2020-04-07 17:41] LABS: Bilirubin Negative (Negative); Blood Moderate (Negative); Clarity Clear (Clear); Glucose Negative (Negative); Ketones Negative (Negative); Leukocyte Esterase Negative (Negative); Nitrite Negative (Negative); Specific Gravity 1.015 (1.005-1.025); Urobilinogen 0.2 EU/dL (Up TO 0.2); pH 5.5 (5-8)
[2020-04-07 17:49] LABS: Bacteria Negative HPF (Negative); C & S Indicated? No; Casts Negative LPF (Negative); Crystals Negative HPF (Negative); Epithelial Cells Negative HPF (Negative); Mucus Negative (Negative); Other Cells Negative (Negative); WBC 0-2 HPF (0-5)
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
--- NOTE | 2020-04-07 18:01 | DI.CT_ITS ---
EXAM: CT CHEST/ABD/PEL W CLINICAL HISTORY: abd pain, falls, confused TECHNIQUE: Imaging Protocol: Axial computed tomography images with coronal and sagittal reformatted images were created and reviewed CONTRAST MATERIAL: Intravenous: Omnipaque 350 Contrast volume:100 mL Oral: No COMPARISON: CT CT CHEST/ABD/PEL W from 02/06/2020 FINDINGS: CHEST: Tracheobronchial tree: Patent where visualized. Mediastinum and Lisseth: No dominant adenopathy or fluid collection. Pulmonary parenchyma: Mild dependent atelectasis in the lung bases. No architectural distortion. Pleura: No effusion or pneumothorax. Heart: Mild cardiomegaly. Mild coronary artery calcification. No significant pericardial effusion. Aorta: Thoracic aorta non-dilated. Mild atherosclerosis. Lymph nodes: Within normal limits. Bones:No acute fracture or dislocation.Degenerative changes seen in the spine. ABDOMEN: Liver: Normal density. There is a tiny subcentimeter density in the right lobe of the liver. It is t oo small for further characterization but likely reflects a small cyst. Portal, Superior Mesenteric, and Splenic Veins: Unremarkable. Gallbladder and Biliary Tract: No radiodense calculus or dilation. Pancreas: Normal density, no abnormal calcifications or inflammatory process. Spleen: Normal. Adrenals: No masses seen. Kidneys: Normal size, contour and axis. No radiodense stones or obstructive uropathy. No masses seen. Abdominal Aorta: Abdominal portion non-dilated. Atherosclerosis. Bowel: No obstruction or bowel wall thickening. Appendix is unremarkable. Peritoneal Cavity: No ascites, collection or mesenteric inflammatory response. Lymph Nodes: Within normal limits. Bones: Degenerative changes. No acute fracture or dislocation. Soft Tissues: Fat and fluid containing left inguinal hernia. PELVIS: Bladder: Mild diffuse urinary bladder wall thickening. No inflammatory changes around the urinary bl adder are seen. Reproductive Organs: Enlarged prostate gland. There is heterogeneous enhancement of the prostate gla nd with a 2 cm rounded area of increased enhancement noted. Lymph Nodes: Within normal limits. Bones: Degenerative changes. No acute fracture or subluxation. IMPRESSION: 1. No acute abdominal or pelvic process. 2. Mild urinary bladder wall thickening without significant adjacent inflammatory change. This may b e due to an incompletely distended urinary bladder. Clinical correlation is recommended to exclude c ystitis. 3. Prostatic enlargement with heterogeneous enhancement. PSA correlation may be considered to evalua te for evidence of malignancy. 4. No acute thoracic abnormality. RADIATION DOSE DELIVERED: 897.17mGy.cm Total DLP DATA REPOSITORY: All CT scans at this facility are submitted to the National Radiology Data Registry (NRDR) Dose Index Registry (DIR) with the [employer] (ACR). RADIATION OPTIMIZATION: All CT scans at this facility use at least one of these dose optimization te chniques: automated exposure control; mA and/or kV adjustment per patient size (includes targeted exa ms where dose is matched to clinical indication); or iterative reconstruction.
[2020-04-07 18:02] LABS: *AMPHETAMINES SCREEN URINE Negative (Negative); *BARBITURATES SCREEN URINE Negative (Negative); *BENZODIAZEPINES SCREEN URINE POSITIVE (Negative); Cannabinoids THC Negative (Negative); Cocaine Screen,Urine Negative (Negative); METHADONE URINE SCREEN Negative (Negative); OPIATES URINE SCREEN Negative (Negative)
--- NOTE | 2020-04-07 18:03 | DI.CT_ITS ---
EXAM: CT HEAD CERVICAL SPINE WO CLINICAL HISTORY: falls, on eliquis,. TECHNIQUE: Imaging Protocol: Axial computed tomography images with coronal and sagittal reformatted images were created and reviewed COMPARISON: CT CT HEAD CERVICAL SPINE WO from 03/05/2020 FINDINGS: CT Head: Ventricles and Extra axial spaces: Normal in size and morphology for the patient's age. Hemorrhage: None. Cerebral parenchyma: There are areas of decreased attenuation in the white matter consistent with sma ll vessel ischemic disease. There is again seen an area of encephalomalacia in the left temporal lob e. No acute territorial infarct is seen. Midline shift: None. Brainstem/Cerebellum: Normal. Calvarium: Normal. Visualized Paranasal sinuses/Mastoids: Mild mucosal thickening in the visualized paranasal sinuses is noted. No air-fluid levels are present. Soft Tissues: Unremarkable. CT Cervical Spine: Bones: No acute fracture or subluxation. S/p L4 and L5 laminectomy. Grade 1 anterolisthesis of C4 on C5. Multilevel degenerative changes throughout the cervical spine. The findings are most marked at C5-C6 and C6-C7. Soft Tissues: Unremarkable. Lung Apices: Clear. IMPRESSION: 1. No acute intracranial process. 2. No acute fracture or subluxation in the cervical spine. RADIATION DOSE DELIVERED: 1,386.04mGy.cm Total DLP DATA REPOSITORY: All CT scans at this facility are submitted to the National Radiology Data Registry (NRDR) Dose Index Registry (DIR) with the [employer] ([employer]). RADIATION OPTIMIZATION: All CT scans at this facility use at least one of these dose optimization te chniques: automated exposure control; mA and/or kV adjustment per patient size (includes targeted exa ms where dose is matched to clinical indication); or iterative reconstruction.
[2020-04-07] MEDS: Normal Saline - Diluent 50 ML VIAL IV (18:05)
[2020-04-07] MEDS: Omnipaque 350 MG/ML 100 ML BTL IJ (18:05)
[2020-04-07 18:11] LABS: Tricyclic Antidepressants Negative (Negative)
--- NOTE | 2020-04-07 18:26 | DI.VRAD_ITS ---
PROCEDURE INFORMATION: Exam: CT Chest With Contrast Exam date and time: 04/07/2020 5:49 PM Age: 64 years old Clinical indication: Other: Abd pain, falls, confused TECHNIQUE: Imaging protocol: Computed tomography of the chest with intravenous contrast. Radiation optimization: All CT scans at this facility use at least one of these dose optimization techniques: automated exposure control; mA and/or kV adjustment per patient size (includes targeted exams where dose is matched to clinical indication); or iterative reconstruction. COMPARISON: No relevant prior studies available. FINDINGS: Thyroid: The visualized thyroid gland is unremarkable. Lungs: Mild bilateral central cylindrical bronchiectasis. No bronchial occlusions. No infiltrates or edema. Mild dependent atelectasis in the lung bases. No pulmonary nodules or mass lesions are identified. Pleural space: No pleural effusions. No pneumothorax. Heart: Mild cardiomegaly. Moderate coronary artery calcification in the LAD distribution. Moderate coronary artery calcification in the circumflex distribution. Minimal pericardial fluid distributed primarily in the superior pericardial recesses. Mediastinum: The esophagus is largely contracted without gross abnormality. Pulmonary arteries: The pulmonary arteries demonstrate no gross abnormality. Aorta: The aorta enhances appropriately without evidence of dissection or aneurysm. No mediastinal hematoma. Mild aortic ectasia/tortuosity and mild calcific atherosclerosis. Lymph nodes: No supraclavicular or axillary adenopathy. No mediastinal or hilar adenopathy. Bones/joints: No acute osseous abnormalities are identified. Old healed fracture of the right posterolateral 7th, 8th, and 9th ribs. Soft tissues: Soft tissues of the thoracic wall demonstrate no gross abnormality. IMPRESSION: 1. No acute thoracic process is identified. 2. Mild central cylindrical bronchiectasis bilaterally. 3. Mild cardiomegaly with moderate coronary artery calcification. PROCEDURE INFORMATION: Exam: CT Abdomen And Pelvis With Contrast Exam date and time: 04/07/2020 5:49 PM Age: 64 years old Clinical indication: Other: Abd pain, falls, confused TECHNIQUE: Imaging protocol: Computed tomography of the abdomen and pelvis with intravenous contrast. Radiation optimization: All CT scans at this facility use at least one of these dose optimization techniques: automated exposure control; mA and/or kV adjustment per patient size (includes targeted exams where dose is matched to clinical indication); or iterative reconstruction. Contrast material: OMNIPAQUE 350; Contrast volume: 100 ml; Contrast route: IV; COMPARISON: No relevant prior studies available. FINDINGS: Lungs: Visualized lung bases are clear. Heart: Heart size normal. Mediastinal space: The visualized distal esophagus is normal. Liver: Normal size and contour. 4 mm circumscribed low-density probable cyst in the anterior liver on series 5, image 452. No further imaging evaluation is required. No intrahepatic biliary ductal dilatation. Gallbladder and bile ducts: Normal. No calcified stones. No ductal dilation. Pancreas: Normal. No inflammatory changes or ductal dilation. Spleen: Normal. No splenomegaly. Adrenals: Normal. No adrenal mass. Kidneys and ureters: No acute abnormalities. No hydronephrosis or hydroureter. No urinary tract stones are identified. Stomach and bowel: The stomach is grossly normal. The small bowel is normal with no evidence of obstruction. No acute colonic abnormalities. Appendix: The appendix is normal in caliber and demonstrates no evidence of appendicitis. Intraperitoneal space: No free fluid or air. Vasculature: No acute process. No abdominal aortic aneurysm. Lymph nodes: No adenopathy. Bladder: Mild urinary bladder wall thickening without significant adjacent inflammatory stranding. Clinical/urinalysis correlation recommended for evidence of cystitis. Reproductive: Mild prostate enlargement, with a 2 cm rounded zone of relatively increased arterial phase enhancement. This is nonspecific and may relate to benign hyperplasia. Correlate with PSA to exclude evidence of malignancy. Bones/joints: No acute osseous abnormalities. Soft tissues: Small fatty left inguinal hernia with no asociated bowel herniation or bowel obstruction. IMPRESSION: 1. No acute intra-abdominal/intrapelvic process is identified. 2. Mild urinary bladder wall thickening without significant adjacent inflammatory changes. This may relate to its partially contracted status. Correlate with UA to exclude evidence of cystitis. 3. Mild prostate enlargement with a 2 cm ovoid zone of central enhancement probably related to benign hyperplasia given its central location. Correlate with PSA to exclude evidence of malignancy. 4. Small fatty left inguinal hernia with no asociated bowel herniation or bowel obstruction. Dictated and Authenticated by: Miguel Armas MD. Ordering:SWAPNIL Ruiz MD
--- NOTE | 2020-04-07 18:26 | DI.VRAD_ITS ---
PROCEDURE INFORMATION: Exam: CT Head Without Contrast Exam date and time: 04/07/2020 5:42 PM Age: 64 years old Clinical indication: Other: Falls, on eliquis, TECHNIQUE: Imaging protocol: Computed tomography of the head without contrast. Radiation optimization: All CT scans at this facility use at least one of these dose optimization techniques: automated exposure control; mA and/or kV adjustment per patient size (includes targeted exams where dose is matched to clinical indication); or iterative reconstruction. COMPARISON: CT HEAD CERVICAL SPINE WO 03/05/2020 1:55 PM FINDINGS: Brain: There is no acute intracranial hemorrhage, mass effect or midline shift. No large acute territorial infarct identified. There are patchy regions of hypodensity in the periventricular and subcortical white matter, likely on the basis of chronic microvascular ischemic disease. 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 Ventricles: The ventricles and sulci are prominent in size, which is likely related to global cerebral volume loss. Bones/joints: No acute fracture. Sinuses: There is mucosal thickening in the ethmoid and maxillary sinuses. Mastoid air cells: Mild fluid again seen in the right mastoid air cells. Soft tissues: Unremarkable. IMPRESSION: No acute intracranial hemorrhage, mass effect or midline shift. PROCEDURE INFORMATION: Exam: CT Cervical Spine Without Contrast Exam date and time: 04/07/2020 5:42 PM Age: 64 years old Clinical indication: Other: Falls, on eliquis, TECHNIQUE: Imaging protocol: Computed tomography images of the cervical spine without contrast. Radiation optimization: All CT scans at this facility use at least one of these dose optimization techniques: automated exposure control; mA and/or kV adjustment per patient size (includes targeted exams where dose is matched to clinical indication); or iterative reconstruction. COMPARISON: CT HEAD CERVICAL SPINE WO 03/05/2020 1:55 PM FINDINGS: Vertebrae: No acute fracture. Postsurgical changes noted status post posterior decompression of the C3 and C4 vertebral bodies. There is grade 1 anterior listhesis of C4 on C5. Discs/Spinal canal/Neural foramina: There are multilevel degenerative changes most prominent at C4-C7, with bilateral neural foraminal narrowing. No significant spinal canal stenosis. Soft tissues: Unremarkable. Thyroid: A 4 mm hypodense nodule is noted in the left thyroid lobe. Lungs: Lung apices are normal. IMPRESSION: No acute fracture. Multilevel degenerative changes as described. Dictated and Authenticated by: Caridad Jiang MD. Ordering:SWAPNIL Ruiz MD
[2020-04-07] MEDS: Normal Saline 1,000 ML 1000 ML IV (19:28)
[2020-04-07 19:33] LABS: Lactate 1.1 mmol/L (0.6-1.4)
[2020-04-07] MEDS: Acetaminophen 500 MG TAB 1000 MG PO (20:30)
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
[2020-04-07] MEDS: Mometasone 220 MCG 14 DOSE INHALER 2 PUFF IH (23:00)
[2020-04-07] MEDS: Patch Removal 1 EACH TP (23:05)
[2020-04-07] MEDS: fentaNYL 75 MCG PATCH TD (23:06)
[2020-04-08] VITALS (13 sets, daily range): BP systolic 92–122; BP diastolic 64–90; PULSE 108–127; RESP 16–20; TEMP 36.7–36.9; O2SAT 92–100
[2020-04-08] MEDS: Clopidogrel 75 MG TAB PO (08:03)
[2020-04-08] MEDS: Gabapentin 600 MG TAB PO ×4 (08:03→19:11)
[2020-04-08] MEDS: lamoTRIgine 100 MG TAB PO ×2 (08:03→19:09)
[2020-04-08] MEDS: Apixaban 5 MG TAB PO ×2 (08:03→19:11)
[2020-04-08] MEDS: diazePAM 2 MG TAB PO ×2 (08:03→19:09)
[2020-04-08] MEDS: Citalopram 20 MG TAB 40 MG PO (08:03)
[2020-04-08] MEDS: Pantoprazole 40 MG TABCR PO (08:03)
[2020-04-08 08:55] LABS: Anion Gap 7.8 mmol/L (3-11); BUN 10 mg/dL (7-18); CO2 26.2 mmol/L (21.0-32.0); CREATININE 1.22 mg/dL (0.70-1.30); Calcium 8.5 mg/dL (8.5-10.1); Chloride 108 mmol/L (98-107); Glucose 93 mg/dL (74-106); Magnesium 2.1 mg/dL (1.8-2.4); Potassium 4.6 mmol/L (3.5-5.1); Sodium 142 mmol/L (136-145)
[2020-04-08] MEDS: Mometasone 220 MCG 14 DOSE INHALER 2 PUFF IH ×2 (09:28→19:11)
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
[2020-04-08] MEDS: Isosorbide Dinitrate 10 MG TAB 20 MG PO (10:27)
[2020-04-08] MEDS: Metoprolol 12.5 MG TAB PO ×2 (13:09→19:10)
--- NOTE | 2020-04-08 13:09 | W.PM.PROGNOT ---
Date of Service Date of service: 04/08/20 Time of Service: 13:11 Assessment and Plan Assessment and plan (1) Acute confusion: Status: Acute Assessment and plan: Per care management, still not at baseline. There is a question of medication compliance/confusion with taking medications. Moreover, it is not clear to me whether the patient took his medications incorrectly yesterday because he was already confused or if the confusion started after he took his medications incorrectly. Check EEG - possible that encephalopathy is patient's post-ictal state. Also, possible that the tingling he is having in his LUE/LLE could be a seizure. Will consult nuerology as the patient does have a significant history of strokes and had recently been seen in neurology office. (2) Hypotension: Status: Acute Assessment and plan: This appears to be quite unusual for Mr Pérez who is documented to have had SBPs as high as 110-140s in January/March of this years. I do see where SBp's were in the 90's on 1 check in 01/11/2020. I again question whether this is side effect of him taking his medications incorrectly. Right now he looks dehydrated. Will give 250 cc bolus of NS and monitor HR/BP. Also, checking lactate, procalcitonin, CRP, H/H. Monitor on tele. Check orthostatics. Hold all antihypertensives at this point. Got 1 dose of metoprolol 12.5 mg and isosorbide dinitrate 20 mg. (3) Urine retention: Status: Acute Assessment and plan: S/p brady. I do not feel comfortable starting him on flomax with this BP. Check PSA. Urology consulted. (4) Cerebrovascular accident (CVA) with left hemiparesis: Status: Chronic Assessment and plan: H/o. CT head negative. Continue plavix, statin. (5) Pulmonary embolism: Status: Chronic Assessment and plan: Recurrent event ruled out. Continue eliquis (6) Chronic systolic (congestive) heart failure: Status: Chronic Assessment and plan: Last known EF is 35%, per my research. Checking proBNP, troponin. On tele. Holding diuresis at this time as appears clinically dry. (7) Discharge planning issues: Status: Acute Assessment and plan: Full code. Consult palliative care. Admit to inpatient status. Subjective Subjective Interval history since last seen: Mr Pérez reports a headache in his left side of the head. He reports pain and tingling in his whole left side, which includes head, neck, arm, left side of his body, his left leg. He states that, while the pain is chronic, the tingling is new. When I asked him to take deep breaths while auscultating him, he stated that made his headache on the left worse. Per care management (very familiar with the patient), he does not appear to be at his baseline as far as mental status at this time. Per patient, he has been progressively more confused x several weeks. He states he felt dizzy getting up to the bathroom and thinks he almost fainted. He did not tell the person who was assisting him to go to the bathroom. Evidently, he just had a controlled fall down onto his knees while working with PT. Denies chest pain, shortness of breath, nausea. Exam Narrative Exam Narrative: General: Pleasant middle-aged male, A&Ox2, L hemiparesis HEENT: EOMI, dry MM Heart: RRR, tachycardic Lungs: CTAB Abdomen: soft, nontender, nondistended Extremities: trace edema at B ankles Objective Objective Clinical Data: Abnormal lab results 04/07/20 04/07/20 04/07/20 Range/Units 16:10 16:10 16:10 MCHC 31.9 L (32.0-36.0) g/dL Chloride (98-107) mmol/L Creatinine 1.34 H (0.70-1.30) mg/dL Lactate 3.0 H* (0.6-1.4) mmol/L Alkaline Phosphatase 168 H (46-116) U/L Urine Blood (Negative) Urine RBC (0-2) HPF U Benzodiazepines Scrn (Negative) 04/07/20 04/07/20 04/08/20 Range/Units 17:25 17:25 08:28 MCHC (32.0-36.0) g/dL Chloride 108 H (98-107) mmol/L Creatinine (0.70-1.30) mg/dL Lactate (0.6-1.4) mmol/L Alkaline Phosphatase (46-116) U/L Urine Blood Moderate H (Negative) Urine RBC 10-20 H (0-2) HPF U Benzodiazepines Scrn Positive A (Negative) Vital Signs Temperature 36.8 C 04/08/20 11:50 Temperature Source Tympanic 04/08/20 11:50 Pulse 127 H 04/08/20 11:50 Pulse Rhythm Regular 04/08/20 09:35 Pulse 110 H 04/07/20 20:10 Respiratory Rate 20 04/08/20 11:50 Respiratory Effort Non-Labored 04/08/20 09:35 Respiratory Depth Normal 04/08/20 09:35 Respiratory Pattern Normal 04/08/20 09:35 Blood Pressure 95/64 L 04/08/20 11:50 Blood Pressure Mean 78 04/07/20 20:53 Blood Pressure Position Supine 04/07/20 16:08 Pulse Oximetry 96 04/08/20 11:50 Oxygen Delivery Method Room Air 04/08/20 11:50 Oxygen Flow Rate 0 04/08/20 11:50 Pain Level 8 04/08/20 11:50 Intake & Output 04/07/20 04/08/20 04/08/20 23:59 11:59 23:59 Intake Total 2009 240 / 240 Output Total 500 / 500 950 / 1800 850 / 1800 Balance 1510 / 1510 -710 / -1560 -850 / -1560 Weight 63.503 kg Intake: IV 2009 Oral 240 / 240 Output: Urine 500 / 500 950 / 1800 850 / 1800 Other: Urine Color Pale Yellow Yellow Urine Appearance Clear Clear Clear Comment rn notified Voiding Methods Indwelling Catheter Laboratory Results WBC 5.69 k/cumm (4.4-10.8) 04/07/20 16:10 RBC 4.77 m/cumm (4.50-6.00) 04/07/20 16:10 Hgb 13.8 g/dL (13.5-17.5) 04/07/20 16:10 Hct 43.3 % (40.0-50.0) 04/07/20 16:10 MCV 90.8 fL (80-95) 04/07/20 16:10 MCH 28.9 pg (27.0-33.0) 04/07/20 16:10 MCHC 31.9 g/dL (32.0-36.0) L 04/07/20 16:10 RDW 13.9 % (11.8-14.1) 04/07/20 16:10 Plt Count 141 x1000/uL (130-400) 04/07/20 16:10 MPV 9.7 fL (8.0-11.0) 04/07/20 16:10 Immature Gran % 0.0 % 04/07/20 16:10 Neutrophils % 48.2 04/07/20 16:10 Lymphocytes % 35.1 04/07/20 16:10 Monocytes % 9.3 04/07/20 16:10 Eosinophils % 6.7 04/07/20 16:10 Basophils % 0.7 04/07/20 16:10 Absolute Neutrophils 2.74 k/cumm (1.2-6.7) 04/07/20 16:10 Absolute Lymphocytes 2.00 k/cumm (1.2-3.4) 04/07/20 16:10 Absolute Monocytes 0.53 k/cumm (0.11-0.7) 04/07/20 16:10 Absolute Eosinophils 0.38 k/cumm (0.0-0.7) 04/07/20 16:10 Absolute Basophils 0.04 k/cumm (0.0-0.2) 04/07/20 16:10 PT 11.0 sec (9.3-11.0) 04/07/20 16:10 INR 1.1 (0.9-1.1) 04/07/20 16:10 APTT 27.7 sec (21.0-31.4) 04/07/20 16:10 Sodium 142 mmol/L (136-145) 04/08/20 08:28 Potassium 4.6 mmol/L (3.5-5.1) 04/08/20 08:28 Chloride 108 mmol/L (98-107) H 04/08/20 08:28 Carbon Dioxide 26.2 mmol/L (21.0-32.0) 04/08/20 08:28 Anion Gap 7.8 mmol/L (3-11) 04/08/20 08:28 BUN 10 mg/dL (7-18) 04/08/20 08:28 Creatinine 1.22 mg/dL (0.70-1.30) 04/08/20 08:28 Estimated GFR/1.73 m2 59.80 (mL/min/1.73m2) 04/08/20 08:28 Glucose 93 mg/dL (74-106) 04/08/20 08:28 Lactate 1.1 mmol/L (0.6-1.4) 04/07/20 19:25 Calcium 8.5 mg/dL (8.5-10.1) 04/08/20 08:28 Magnesium 2.1 mg/dL (1.8-2.4) 04/08/20 08:28 Total Bilirubin 0.4 mg/dL (0.2-1.0) 04/07/20 16:10 AST 16 U/L (15-37) 04/07/20 16:10 ALT 19 U/L (16-63) 04/07/20 16:10 Alkaline Phosphatase 168 U/L (46-116) H 04/07/20 16:10 Troponin I < 0.05 ng/mL (<0.06) 04/07/20 16:10 Total Protein 7.1 g/dL (6.4-8.2) 04/07/20 16:10 Albumin 4.1 g/dL (3.4-5.0) 04/07/20 16:10 Lipase 132 U/L (73-393) 04/07/20 16:10 Urine Color Yellow (Yellow) 04/07/20 17:25 Urine Clarity Clear (Clear) 04/07/20 17:25 Urine pH 5.5 (5-8) 04/07/20 17:25 Ur Specific [place] 1.015 (1.005-1.025) 04/07/20 17:25 Urine Protein Negative mg/dL (Negative) 04/07/20 17:25 Urine Ketones Negative mg/dL (Negative) 04/07/20 17:25 Urine Blood Moderate (Negative) H 04/07/20 17:25 Urine Nitrite Negative (Negative) 04/07/20 17:25 Urine Bilirubin Negative (Negative) 04/07/20 17:25 Urine Urobilinogen 0.2 EU/dL (Up TO 0.2) 04/07/20 17:25 Ur Leukocyte Esterase Negative (Negative) 04/07/20 17:25 Urine RBC 10-20 HPF (0-2) H 04/07/20 17:25 Urine WBC 0-2 HPF (0-5) 04/07/20 17:25 Ur Epithelial Cells Negative HPF (Negative) 04/07/20 17:25 Urine Crystals Negative HPF (Negative) 04/07/20 17:25 Urine Bacteria Negative HPF (Negative) 04/07/20 17:25 Urine Casts Negative LPF (Negative) 04/07/20 17:25 Urine Mucus Negative (Negative) 04/07/20 17:25 Urine Other Negative (Negative) 04/07/20 17:25 Ur Culture Indicated? No 04/07/20 17:25 Urine Glucose Negative mg/dL (Negative) 04/07/20 17:25 Salicylates < 2.8 mg/dL (2.8-20.0) 04/07/20 16:10 Urine Opiates Screen Negative (Negative) 04/07/20 17:25 Urine Methadone Screen Negative (Negative) 04/07/20 17:25 Acetaminophen < 2 ug/mL (10-30) 04/07/20 16:10 Ur Barbiturates Screen Negative (Negative) 04/07/20 17:25 Ur Tricyclics Screen Negative (Negative) 04/07/20 17:25 Ur Amphetamines Screen Negative (Negative) 04/07/20 17:25 U Benzodiazepines Scrn Positive (Negative) A 04/07/20 17:25 Urine Cocaine Screen Negative (Negative) 04/07/20 17:25 Ur THC Screen Negative (Negative) 04/07/20 17:25 Ethyl Alcohol < 3.0 mg/dL (<3) 04/07/20 16:10
--- NOTE | 2020-04-08 13:19 | W.NUTRFU ---
Date of service: 04/08/20 Time of Service: 13:19 Nutritional Follow up NOTE: 64 year old male admitted with AMS. Following regular diet with excellent intake (>75%). Following regular meal plan. Not at risk for nutritional decline. Time Spent in Nutritional Counseling and Treatment: 0
[2020-04-08] MEDS: Acetaminophen 500 MG TAB 1000 MG PO (13:29)
[2020-04-08] MEDS: Normal Saline 250 ML IV (13:30)
--- NOTE | 2020-04-08 13:31 | PT.INTREAT ---
Date of service: 04/08/20 Time of Service: 12:55 PT Notes Visit Reasons: ACUTE CONFUSION Inpatient Physical Therapy Treatment Note [facility] Date: 04/08/20 PRECAUTIONS:fall, standard SUBJECTIVE: Miguel states that he is looking forward to walking. OBJECTIVE: BED MOBILITY/TRANSFERS Rolling L/R: Sit-stand: CGA Stand-sit: CGA sit-supine: mod A to LLE GAIT Assistive Device: FWW Weight bearing: AT Assist: FWW Distance: 25' Deviation: hemiparetic gait. Poor clearance of LLE. Patient requires cues for effective placement of LLE prior to advancement of RLE. During ambulation, patient has a controlled fall to high kneel position. He was assisted to floor by PT after legs gave out. Required mod A x 2 to regain standing position, at which point he was able to ambulate back to bed (15') with min A x 2. Post-ambulation, he has point tenderness at the anterior left knee. No redness, swelling or deformity noted. He's able to demonstrate 3-/5 strength for knee extension (unchanged from initial evaluation performed this morning). PROM also remains unchanged, although is pain provoking. He was provided with ice to left knee by nursing. THEREX: deferred ASSESSMENT/PLAN: Continue PT intervention, while monitoring L knee pain. Will focus on short-distance ambulation and improved gait mechanics. TREATMENT CODE/TIME: :55-1:10 ([id number]) Sharon Mccarthy, PT, DPT [facility]
[2020-04-08 13:37] LABS: HCT 40.7 % (40.0-50.0)
[2020-04-08 13:49] LABS: C-Reactive Protein 0.55 mg/dL (0.0-0.3)
[2020-04-08 13:56] LABS: NT-proBNP 1708 pg/mL (<300)
[2020-04-08 13:58] LABS: Troponin I < 0.05 ng/mL (<0.06)
[2020-04-08 14:12] LABS: Procalcitonin < 0.1 ng/mL
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
[2020-04-08 14:57] LABS: COVID-19 RT-PCR UVMMC Result Negative (Negative)
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
[2020-04-08] MEDS: Atorvastatin 40 MG TAB PO (19:11)
[2020-04-09] VITALS (11 sets, daily range): BP systolic 90–117; BP diastolic 38–80; PULSE 68–124; RESP 17–20; TEMP 36–37.2; O2SAT 93–99
[2020-04-09] MEDS: Acetaminophen 500 MG TAB 1000 MG PO (04:54)
[2020-04-09 06:47] LABS: Abs Immature Grans 0.01 k/cumm (0.0-0.09); Absolute Basophil Count 0.03 k/cumm (0.0-0.2); Absolute Eosinophil Count 0.22 k/cumm (0.0-0.7); Absolute Monocyte Count 0.52 k/cumm (0.11-0.7); Absolute Neutrophil Count 3.52 k/cumm (1.2-6.7); Basophils % 0.5; HCT 40.3 % (40.0-50.0); HGB 12.8 g/dL (13.5-17.5); Immature Grans % 0.2 %; Lymphocytes % 21.8; Mean Corp. HGB Concentration 31.8 g/dL (32.0-36.0); Mean Corpuscular Hemoglobin 28.7 pg (27.0-33.0); Mean Corpuscular Volume 90.4 fL (80-95); Mean Platelet Volume 10.1 fL (8.0-11.0); Monocytes % 9.5; Platelet Count 126 x1000/uL (130-400); RBC 4.46 m/cumm (4.50-6.00)
[2020-04-09 06:51] LABS: Anion Gap 5.5 mmol/L (3-11); BUN 14 mg/dL (7-18); CO2 29.5 mmol/L (21.0-32.0); CREATININE 1.33 mg/dL (0.70-1.30); Chloride 105 mmol/L (98-107); Estimated GFR 54.13 (mL/min/1.73m2); Glucose 93 mg/dL (74-106); Magnesium 1.7 mg/dL (1.8-2.4); Potassium 4.5 mmol/L (3.5-5.1); Sodium 140 mmol/L (136-145)
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
[2020-04-09] MEDS: Pantoprazole 40 MG TABCR PO (07:19)
[2020-04-09] MEDS: diazePAM 2 MG TAB PO ×2 (07:38→19:49)
[2020-04-09] MEDS: Citalopram 20 MG TAB 40 MG PO (07:39)
[2020-04-09] MEDS: Metoprolol 12.5 MG TAB PO ×4 (07:39→23:44)
[2020-04-09] MEDS: lamoTRIgine 100 MG TAB PO ×2 (07:39→19:49)
[2020-04-09] MEDS: Clopidogrel 75 MG TAB PO (07:39)
[2020-04-09] MEDS: Gabapentin 600 MG TAB PO ×2 (07:39→11:55)
[2020-04-09] MEDS: Apixaban 5 MG TAB PO ×2 (07:40→19:49)
[2020-04-09] MEDS: Mometasone 220 MCG 14 DOSE INHALER 2 PUFF IH ×2 (08:03→19:49)
[2020-04-09] MEDS: Normal Saline Flush 10 ML SYR IVP (08:33)
[2020-04-09] MEDS: MAGNESIUM SULFATE 2 GM/50 ML BAG IVPB (08:33)
[2020-04-09] MEDS: Docusate Sodium 100 MG CAP PO ×2 (08:49→19:49)
[2020-04-09] MEDS: Tamsulosin 0.4 MG CAPCR PO (08:50)
[2020-04-09] MEDS: Senna TAB 1 TAB PO ×2 (08:51→19:50)
--- NOTE | 2020-04-09 11:09 | PHA.REVIEW ---
Pharmacy Admission Review - Admission Clinical Review (Last Updated 04/09/20 @ 07:11 by Leander Hui MD) Lower urinary tract symptoms (LUTS) (Acute) Pseudoseizure (Acute) Hypotension (Acute) Urine retention (Acute) Acute confusion (Acute) Discharge planning issues (Acute) aripiprazole Allergy (Mild, Verified 03/18/20 12:49) SKIN RASH codeine Allergy (Unknown, Verified 03/18/20 12:49) Nausea, vomiting, rash aspirin Adverse Reaction (Unknown, Verified 03/18/20 12:49) Skin Rash Height 5 ft 4.17 in Weight 61.2 kg - Renal Dosing Renal Dosing: BUN 14 mg/dL (7-18) 04/09/20 06:25 Creatinine 1.33 mg/dL (0.70-1.30) H 04/09/20 06:25 Medications needing adjustments: Intervened (Crcl ~46 mL/min) List of meds needing interventions: Gabapentin dosing decreased due to renal function. - Anticoagulation Anticoagulation: Hgb 12.8 g/dL (13.5-17.5) L 04/09/20 06:25 Hct 40.3 % (40.0-50.0) 04/09/20 06:25 Plt Count 126 x1000/uL (130-400) L 04/09/20 06:25 INR 1.1 (0.9-1.1) 04/07/20 16:10 Creatinine 1.33 mg/dL (0.70-1.30) H 04/09/20 06:25 DVT Prohphylaxis: N/A Therapeutic Anticoagulation: Reviewed Medications: Apixaban - Opiate Usage Evaluate Pain Scale/Pains Meds: Reviewed Scheduled Bowel Reg ordered if on Opiates?: Yes (aries and prn meds ordered) - Relevant Labs Sodium 140 mmol/L (136-145) 04/09/20 06:25 Potassium 4.5 mmol/L (3.5-5.1) 04/09/20 06:25 Chloride 105 mmol/L (98-107) 04/09/20 06:25 Magnesium 1.7 mg/dL (1.8-2.4) L 04/09/20 06:25 C-Reactive Protein 0.55 mg/dL (0.0-0.3) H 04/08/20 13:25 Electrolytes, C-Reactive P, ESR: Reviewed (mag replacement ordered) - DM Control DM Control: Glucose 93 mg/dL (74-106) 04/09/20 06:25 Insulin Dosing: N/A - Heart Failure/FL Heart Failure/FL: Troponin I < 0.05 ng/mL (<0.06) 04/08/20 13:25 NT-Pro-B Natriuret Pep 1708 pg/mL (<300) H 04/08/20 13:25 EF%, FEDERICO's, B-Blockers, Diuretics: Reviewed (metoprolol) - BP Control BP Control: Blood Pressure 98/60 Blood Pressure 97/61 Blood Pressure 117/80 Blood Pressure 91/67 If elevated: Reviewed (hypotensive- MD aware, there are parameters on metoprolol doses) - Qtc Review If Elevated: N/A (QTc 472, has citalopram ordered) - IV to PO Switch IV Medications: N/A - Home Meds Home Med List reviewed: Reviewed (Multiple [employer] depressants: diazepam, fentanyl, gabapentin, lamotrigine, and trazodone. Separate admin of magnesium from gabapentin. Clopidogrel may enhance the bleed risk of apixaban. It's recommended to carefully weigh the risks/benefits and increase monitoring if used together.) Relevent Home Meds Not ordered & why?: cyanocobalamin, ergocalciferol, lisinopril (hypotension), magnesium oxide, multivitamin, trazodone - Current meds Current Medication Order Review: Intervened (fixed albuterol order (PRN), fixed sig of nitroglycerin order) - Comments Comments/Follow Ups: continue to watch HR, BP, renal function
--- NOTE | 2020-04-09 11:48 | CMPROGNOTE_ITS ---
- If Service Date Differs Date of service: 04/09/20 Time of Service: 11:48 Care Management Progress Note S/O: Miguel is alert and engaged during assessment with CM. He does have periods of absences during conversation. He is willing to have a referral sent to health and rehab which CM has faxed. Miguel would like to return home with increase supports he has a geriatric case manager and moderate needs through home health. His CM is Talya Christianson. CM reviewed benefits of peanut cleaner medicaid and highest needs choices for care, CM has completed this application and faxed it to the [facility] on 04/09/2020. CM contacted home health and left a voicemail for Talya to provide update. Anticipate Miguel will not be ready for discharge until the end of the week, due to medication adjustments and consults including neurology and urology. CM will not seek guardianship at this time, Miguel is currently making his own decisions. He states his son is present at times however is not living at home special needs nanny. Miguel lives in a trailer which he has access in and out of the home via ramp. He would like to be able to return there after short rehabilitation stay. CM reviewed all local nursing homes in [place], Miguel was only willing to have a referral sent to [facility] he states the other ones are to far away. CM will continue to assess and provide support discharge planning and anticipated needs. A: Miguel is a 64 year old male with a history of post traumatic epilepsy, admitted with hypotension, and encephalopathy. P: Miguel will be discharged when medically ready, disposition to be determined. LACHO has faxed a referral to [facility] which he agrees to at this time. LTM application pending. If Miguel returns home he will have resumption of home health nursing and he would like to return to adult day if possible, CM will follow up with Adult day services after reviewing plan with community midwife to determine barriers. Transportation to be determined by disposition.
--- NOTE | 2020-04-09 13:45 | PTTR_ITS ---
Date of service: 04/09/20 Time of Service: 13:45 PT Notes Visit Reasons: HYPOTENSION,ENCEPHALOPATHY Inpatient Physical Therapy Treatment Note [facility] Date: 04/09/2020 PRECAUTIONS: Fall. Standard. Activity as tolerated. Left AFO and left knee brace on when out of bed. SUBJECTIVE: Patient is agreeable to trialing left knee brace for all out of bed activities today. He reports increased stability on the knee as well as decrease pain report from 7/10 to 4/10 with said brace. When asked what he thinks about going to a [place] [facility] [place], he stated that he would want to think about it at this time. He does agree to the fact that he he has been needing more help than what he can get at home. OBJECTIVE: General observation: Hinged brace left knee and ankle-foot orthosis on the left foot and ankle. Askew catheter in place. IV in the right UE. Pain report: 4/10 on the left knee BED MOBILITY/TRANSFERS Supine to sit: Supervision with minimal verbal cueing provided for left LE management Sit to supine: Supervision with minimal verbal cueing provided for left LE management Sit-stand: CGA with minimal verbal cueing for right hand placement, requires use of front wheeled walker Stand-sit: CGA with minimal verbal cueing for right hand placement, requires use of front wheeled walker GAIT Assistive Device: FWW Weight bearing: WBAT on L LE Assist: FWW Distance: 250 feet Deviation: Circumducted gait on the left side due to poor clearance of L LE resulting from increased inversion of left foot and significantly deficient dorsiflexion during swing phase of gait on the left side. Patient continues to require cues for effective placement of L LE prior to advancement of R LE. Wheelchair follow provided by FARRUKH Schwartz. Patient reports increased stability with the use of hinged knee brace on the left. THERA EX: Patient tolerated bed level exercises consisting of straight leg raises (to 20 degrees from horizontal) x5 with considerable discomfort, bridging x5, long arc quads x 10 with PT stabilizing left thigh. With hands clasped, patient was able to perform shoulder flexion x10 as well as shoulder forward push x10. ASSESSMENT/PLAN: With consultation with Dr. Felix, patient is being trialed for the use of a left hinged-knee brace in order to increase stability while decreasing pain level during mobility ADL performance. Patient also has had his left ankle-foot orthosis for the past 7 years. Said AFO was originally fitted for him when he was 145 pounds. Patient currently is 112 pounds and will require refitting and reshaping of left AFO to better provide support and stability for patient. Orthotic consult is in order. We will coordinate with care management in order to meet orthotic needs. Discharge recommendations: Patient will benefit from [place] [facility] for continued skilled physical therapy services in order to progress mobility level, strength, and balance in preparation for a safe discharge to home. TREATMENT CODE/TIME: Session 1??26646 x15 minutes, [id number] 0 x 14 minutes beginning at 10:26 AM. Session 2??[id number] x 13 minutes, [id number] x 14 minutes beginning at 13:45 PM.
--- NOTE | 2020-04-09 14:44 | CHAPLAIN ---
Miguel was up in his chair, but dozing off when I visited. He said he wasn't tired, but asked to go back to bed when we were done with our conversation. He was less confused than yesterday. Miguel said they want me to go to a alf. He agreed that this was probably a good idea right now, but said he still hopes to be able to go home at some point. For many years Miguel as been involved with a long list of health care social worker and received support from many different agencies. His , Evita, 7 months ago and Miguel provided care for her as much has he was able to. Their son Marciano lives with Mgiuel. He is not consistently reliable to help Miguel. Miguel is a member of the [employer] [facility] [employer] and gave me permission yesterday to let his numerical control machine tool operator, Rev. Negar Pandey know he's here, which I did.
--- NOTE | 2020-04-09 15:48 | W.PM.PROGNOT ---
Date of Service Date of service: 04/09/20 Time of Service: 15:48 Assessment and Plan Assessment and plan (1) Atrial flutter by electrocardiography: Status: Acute Assessment and plan: Rate initially rapid, now controlled. Continue BB with holding parameters, monitoring on tele. Repeat echo. Already on anticoagulation with eliquis. (2) Acute confusion: Status: Resolved Assessment and plan: Discussed with neurology - patient was felt to be at his baseline yesterday, but he does have a cognitive impairment at baseline due to his TBI. It is also likely that he is not taking his medications correctly. At this time, the most appropriate disposition would be SNF. Otherwise, would benefit from 24 hour care at home with medication supervision. THE PATIENT MUST NOT DRIVE. (3) Hypotension: Status: Resolved Assessment and plan: Since we've backed off of the majority of caridac medications, the patient has been able to tolerate increase in his dose of beta duarte and addition of flomax. Continue to monitor BPs on this regimen. Would not introduce other antihypertensives at this time. Obtain echo. (4) Urine retention: Status: Acute Assessment and plan: S/p brady. Seen by urology - started on flomax with holding parameters with plans for voiding trial in 3-5 days. Monitor BPs. 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 CT head negative. Continue plavix, statin. (6) Pulmonary embolism: Status: Chronic Assessment and plan: Recurrent event ruled out. Continue eliquis (7) Chronic systolic (congestive) heart failure: Status: Chronic Assessment and plan: Last known EF is 35%, per my research, but will repeat echo. continue to monitor on tele. Dehydrated when presented, appears euvolemic at this time. Holding diuresis. (8) Discharge planning issues: Status: Acute Assessment and plan: Full code. Will benefit from SNF on discharge. Palliative care consulted. Subjective Subjective Interval history since last seen: Mr Pérez states he is feeling better today. He spent the night in rapid Aflutter with HR in 120's but has been able to tolerate increased dose of metoprolol today and HR is now in 60s-80's with SBP in low 100s. He denies dizziness, chest pain, shortness of breath, nausea. States his left side feels better - less pain and no tingling. He still states he is a little bit confused, but is better. He agrees to consider going to a subacute rehab on discharge. Exam Narrative Exam Narrative: General: Pleasant middle-aged male, A&Ox2, L hemiparesis HEENT: EOMI, MMM Heart: RRR, no m/r/g Lungs: CTAB Abdomen: soft, nontender, nondistended Extremities: trace edema at B ankles Objective Objective Clinical Data: Abnormal lab results 04/09/20 04/09/20 Range/Units 06:25 06:25 RBC 4.46 L (4.50-6.00) m/cumm Hgb 12.8 L (13.5-17.5) g/dL MCHC 31.8 L (32.0-36.0) g/dL Plt Count 126 L (130-400) x1000/uL Creatinine 1.33 H (0.70-1.30) mg/dL Magnesium 1.7 L (1.8-2.4) mg/dL Vital Signs Temperature 36.6 C 04/09/20 15:26 Temperature Source Tympanic 04/09/20 15:26 Pulse 68 04/09/20 15:26 Pulse Rhythm Irregular 04/09/20 08:30 Pulse 110 H 04/07/20 20:10 Respiratory Rate 18 04/09/20 15:26 Respiratory Effort Non-Labored 04/09/20 08:30 Respiratory Depth Normal 04/09/20 08:30 Respiratory Pattern Normal 04/09/20 08:30 Blood Pressure 103/72 04/09/20 15:26 Blood Pressure Mean 78 04/07/20 20:53 Blood Pressure Position Supine 04/07/20 16:08 Pulse Oximetry 95 04/09/20 15:26 Oxygen Delivery Method Room Air 04/09/20 15:26 Oxygen Flow Rate 0 04/09/20 15:26 Pain Level 5 04/09/20 15:26 Comment 04/08/20 19:27 Intake & Output 04/08/20 04/09/20 04/09/20 23:59 11:59 23:59 Intake Total 600 / 840 580 / 580 Output Total 2900 / 3850 900 / 1700 800 / 1700 Balance -2300 / -3010 -320 / -1120 -800 / -1120 Weight 61.2 kg Intake: IV 250 / 250 Oral 350 / 590 580 / 580 Output: Urine 2900 / 3850 900 / 1700 800 / 1700 Other: Urine Color Yellow Yellow Pale Yellow Urine Appearance Clear Clear Clear Stool Size Large Stool Characteristics Soft Formed Voiding Methods Indwelling Catheter Laboratory Results WBC 5.50 k/cumm (4.4-10.8) 04/09/20 06:25 RBC 4.46 m/cumm (4.50-6.00) L 04/09/20 06:25 Hgb 12.8 g/dL (13.5-17.5) L 04/09/20 06:25 Hct 40.3 % (40.0-50.0) 04/09/20 06:25 MCV 90.4 fL (80-95) 04/09/20 06:25 MCH 28.7 pg (27.0-33.0) 04/09/20 06:25 MCHC 31.8 g/dL (32.0-36.0) L 04/09/20 06:25 RDW 14.0 % (11.8-14.1) 04/09/20 06:25 Plt Count 126 x1000/uL (130-400) L 04/09/20 06:25 MPV 10.1 fL (8.0-11.0) 04/09/20 06:25 Immature Gran % 0.2 % 04/09/20 06:25 Neutrophils % 64.0 04/09/20 06:25 Lymphocytes % 21.8 04/09/20 06:25 Monocytes % 9.5 04/09/20 06:25 Eosinophils % 4.0 04/09/20 06:25 Basophils % 0.5 04/09/20 06:25 Absolute Neutrophils 3.52 k/cumm (1.2-6.7) 04/09/20 06:25 Absolute Lymphocytes 1.20 k/cumm (1.2-3.4) 04/09/20 06:25 Absolute Monocytes 0.52 k/cumm (0.11-0.7) 04/09/20 06:25 Absolute Eosinophils 0.22 k/cumm (0.0-0.7) 04/09/20 06:25 Absolute Basophils 0.03 k/cumm (0.0-0.2) 04/09/20 06:25 PT 11.0 sec (9.3-11.0) 04/07/20 16:10 INR 1.1 (0.9-1.1) 04/07/20 16:10 APTT 27.7 sec (21.0-31.4) 04/07/20 16:10 Sodium 140 mmol/L (136-145) 04/09/20 06:25 Potassium 4.5 mmol/L (3.5-5.1) 04/09/20 06:25 Chloride 105 mmol/L (98-107) 04/09/20 06:25 Carbon Dioxide 29.5 mmol/L (21.0-32.0) 04/09/20 06:25 Anion Gap 5.5 mmol/L (3-11) 04/09/20 06:25 BUN 14 mg/dL (7-18) 04/09/20 06:25 Creatinine 1.33 mg/dL (0.70-1.30) H 04/09/20 06:25 Estimated GFR/1.73 m2 54.13 (mL/min/1.73m2) 04/09/20 06:25 Glucose 93 mg/dL (74-106) 04/09/20 06:25 Lactate 1.0 mmol/L (0.6-1.4) 04/08/20 13:25 Calcium 9.0 mg/dL (8.5-10.1) 04/09/20 06:25 Magnesium 1.7 mg/dL (1.8-2.4) L 04/09/20 06:25 Total Bilirubin 0.4 mg/dL (0.2-1.0) 04/07/20 16:10 AST 16 U/L (15-37) 04/07/20 16:10 ALT 19 U/L (16-63) 04/07/20 16:10 Alkaline Phosphatase 168 U/L (46-116) H 04/07/20 16:10 Troponin I < 0.05 ng/mL (<0.06) 04/08/20 13:25 C-Reactive Protein 0.55 mg/dL (0.0-0.3) H 04/08/20 13:25 NT-Pro-B Natriuret Pep 1708 pg/mL (<300) H 04/08/20 13:25 Total Protein 7.1 g/dL (6.4-8.2) 04/07/20 16:10 Albumin 4.1 g/dL (3.4-5.0) 04/07/20 16:10 Lipase 132 U/L (73-393) 04/07/20 16:10 Procalcitonin < 0.1 ng/mL 04/08/20 13:25 Urine Color Yellow (Yellow) 04/07/20 17:25 Urine Clarity Clear (Clear) 04/07/20 17:25 Urine pH 5.5 (5-8) 04/07/20 17:25 Ur Specific [place] 1.015 (1.005-1.025) 04/07/20 17:25 Urine Protein Negative mg/dL (Negative) 04/07/20 17:25 Urine Ketones Negative mg/dL (Negative) 04/07/20 17:25 Urine Blood Moderate (Negative) H 04/07/20 17:25 Urine Nitrite Negative (Negative) 04/07/20 17:25 Urine Bilirubin Negative (Negative) 04/07/20 17:25 Urine Urobilinogen 0.2 EU/dL (Up TO 0.2) 04/07/20 17:25 Ur Leukocyte Esterase Negative (Negative) 04/07/20 17:25 Urine RBC 10-20 HPF (0-2) H 04/07/20 17:25 Urine WBC 0-2 HPF (0-5) 04/07/20 17:25 Ur Epithelial Cells Negative HPF (Negative) 04/07/20 17:25 Urine Crystals Negative HPF (Negative) 04/07/20 17:25 Urine Bacteria Negative HPF (Negative) 04/07/20 17:25 Urine Casts Negative LPF (Negative) 04/07/20 17:25 Urine Mucus Negative (Negative) 04/07/20 17:25 Urine Other Negative (Negative) 04/07/20 17:25 Ur Culture Indicated? No 04/07/20 17:25 Urine Glucose Negative mg/dL (Negative) 04/07/20 17:25 Salicylates < 2.8 mg/dL (2.8-20.0) 04/07/20 16:10 Urine Opiates Screen Negative (Negative) 04/07/20 17:25 Urine Methadone Screen Negative (Negative) 04/07/20 17:25 Acetaminophen < 2 ug/mL (10-30) 04/07/20 16:10 Ur Barbiturates Screen Negative (Negative) 04/07/20 17:25 Ur Tricyclics Screen Negative (Negative) 04/07/20 17:25 Ur Amphetamines Screen Negative (Negative) 04/07/20 17:25 U Benzodiazepines Scrn Positive (Negative) A 04/07/20 17:25 Urine Cocaine Screen Negative (Negative) 04/07/20 17:25 Ur THC Screen Negative (Negative) 04/07/20 17:25 Ethyl Alcohol < 3.0 mg/dL (<3) 04/07/20 16:10 COVID-19 PCR Negative (Negative) 04/07/20 20:05 Nasopharyn COVID-19 PCR Not Applicable 04/07/20 20:05 Ref Test [facility] 04/07/20 20:05
[2020-04-09] MEDS: Gabapentin 300 MG CAP PO ×2 (16:03→19:49)
--- NOTE | 2020-04-09 16:34 | PGE_ITS ---
Date of Service Date of service: 04/09/20 Time of Service: 16:34 Assessment and Plan Assessment and plan (1) Acute confusion: Status: Resolved (2) Daytime somnolence: Status: Chronic (3) TBI (traumatic brain injury): Status: Chronic Qualifiers: Encounter type: sequela Loss of consciousness presence/duration: with LOC of unspecified duration Qualified Code(s): S06.9X9S - Unspecified intracranial injury with loss of consciousness of unspecified duration, sequela (4) CVA (cerebral vascular accident): Status: Chronic Qualifiers: CVA mechanism: thrombosis Precerebral and cerebral artery: unspecified cerebral artery Qualified Code(s): I63.30 - Cerebral infarction due to thrombosis of unspecified cerebral artery (5) Left hemiparesis: Status: Chronic (6) Suicidal ideations: Status: Chronic (7) Epilepsy posttraumatic: Status: Chronic (8) Pseudoseizure: Status: Acute Assessment and plan: Mr. Pérez is a 64-year-old, right-handed man with a complicated past medical history including severe TBI with resultant cognitive impairment, prior strokes with resultant left hemiparesis and hemisensory changes, posttraumatic epilepsy as well as pseudoseizures. He was admitted for alteration in mental status and has since returned to baseline. Differential includes medication toxicity, dehydration, and/or combo of the two. Continue lamotrigine 100mg BID for now for seizure. Needs psych follow-up for mood. Reduce gabapentin to TID due to concerns of over sedation (dose already reduced by pharmacy due to renal status). He was agreeable to this. Agree with SNF placement. Needs help with medications and ambulation. See below. He has never been cleared to ambulate on his own. I had a long discussion with him about placement for both medication assistance and safety. I really think t hat he needs to be back in an assisted living/fpc environment especially now that his is not there to take care of him. His son is not at home often and has his own obligations and cannot care for Mr. Pérez. He should not drive at this time. He should continue Plavix + Eliquis for secondary stroke prevention (new aflutter). He should follow-up in the neurology clinic as previously scheduled. DISCLAIMER: This note was created using [employer] voice recognition software. (9) Poor compliance with medication: Status: Acute Subjective Subjective Interval history since last seen: New aflutter overnight. PT fitted him with a new brace involving left knee. Awaiting placement for SNF. I spoke with psych who was under impression he was on LTG 100mg daily. The intention was to increase to 150mg daily for mood. Today he tells me he never started this dose, though pharmacy records indicate he did picker and sorter load and unload the Rx. LTG level is still pending. Exam Narrative Exam Narrative: Physical Exam: Constitutional: Patient of apparent stated age, thin, no acute distress Neuro: MS/Language/Speech: Alert, oriented, clear language (fluency and comprehension), no dysarthria Motor: FMM intact on right and reduced on left. Less left arm movements today but is holding his arm above his head. No pronator drift. New left knee brace on and AFO = 3+/5 left hip flexor. 5/5 strength on the right. Sensation: Intact to light touch throughout Coordination: no ataxia Gait: deferred Objective Objective Clinical Data: Abnormal lab results 04/09/20 04/09/20 Range/Units 06:25 06:25 RBC 4.46 L (4.50-6.00) m/cumm Hgb 12.8 L (13.5-17.5) g/dL MCHC 31.8 L (32.0-36.0) g/dL Plt Count 126 L (130-400) x1000/uL Creatinine 1.33 H (0.70-1.30) mg/dL Magnesium 1.7 L (1.8-2.4) mg/dL Vital Signs Temperature 36.6 C 04/09/20 15:26 Temperature Source Tympanic 04/09/20 15:26 Pulse 68 04/09/20 15:26 Pulse Rhythm Irregular 04/09/20 08:30 Pulse 110 H 04/07/20 20:10 Respiratory Rate 18 04/09/20 15:26 Respiratory Effort Non-Labored 04/09/20 08:30 Respiratory Depth Normal 04/09/20 08:30 Respiratory Pattern Normal 04/09/20 08:30 Blood Pressure 103/72 04/09/20 15:26 Blood Pressure Mean 78 04/07/20 20:53 Blood Pressure Position Supine 04/07/20 16:08 Pulse Oximetry 95 04/09/20 15:26 Oxygen Delivery Method Room Air 04/09/20 15:26 Oxygen Flow Rate 0 04/09/20 15:26 Pain Level 5 04/09/20 15:26 Comment 04/08/20 19:27 Intake & Output 04/08/20 04/09/20 04/09/20 23:59 11:59 23:59 Intake Total 600 / 840 580 / 580 Output Total 2900 / 3850 900 / 1700 800 / 1700 Balance -2300 / -3010 -320 / -1120 -800 / -1120 Weight 61.2 kg Intake: IV 250 / 250 Oral 350 / 590 580 / 580 Output: Urine 2900 / 3850 900 / 1700 800 / 1700 Other: Urine Color Yellow Yellow Pale Yellow Urine Appearance Clear Clear Clear Stool Size Large Stool Characteristics Soft Formed Voiding Methods Indwelling Catheter Laboratory Results WBC 5.50 k/cumm (4.4-10.8) 04/09/20 06:25 RBC 4.46 m/cumm (4.50-6.00) L 04/09/20 06:25 Hgb 12.8 g/dL (13.5-17.5) L 04/09/20 06:25 Hct 40.3 % (40.0-50.0) 04/09/20 06:25 MCV 90.4 fL (80-95) 04/09/20 06:25 MCH 28.7 pg (27.0-33.0) 04/09/20 06:25 MCHC 31.8 g/dL (32.0-36.0) L 04/09/20 06:25 RDW 14.0 % (11.8-14.1) 04/09/20 06:25 Plt Count 126 x1000/uL (130-400) L 04/09/20 06:25 MPV 10.1 fL (8.0-11.0) 04/09/20 06:25 Immature Gran % 0.2 % 04/09/20 06:25 Neutrophils % 64.0 04/09/20 06:25 Lymphocytes % 21.8 04/09/20 06:25 Monocytes % 9.5 04/09/20 06:25 Eosinophils % 4.0 04/09/20 06:25 Basophils % 0.5 04/09/20 06:25 Absolute Neutrophils 3.52 k/cumm (1.2-6.7) 04/09/20 06:25 Absolute Lymphocytes 1.20 k/cumm (1.2-3.4) 04/09/20 06:25 Absolute Monocytes 0.52 k/cumm (0.11-0.7) 04/09/20 06:25 Absolute Eosinophils 0.22 k/cumm (0.0-0.7) 04/09/20 06:25 Absolute Basophils 0.03 k/cumm (0.0-0.2) 04/09/20 06:25 PT 11.0 sec (9.3-11.0) 04/07/20 16:10 INR 1.1 (0.9-1.1) 04/07/20 16:10 APTT 27.7 sec (21.0-31.4) 04/07/20 16:10 Sodium 140 mmol/L (136-145) 04/09/20 06:25 Potassium 4.5 mmol/L (3.5-5.1) 04/09/20 06:25 Chloride 105 mmol/L (98-107) 04/09/20 06:25 Carbon Dioxide 29.5 mmol/L (21.0-32.0) 04/09/20 06:25 Anion Gap 5.5 mmol/L (3-11) 04/09/20 06:25 BUN 14 mg/dL (7-18) 04/09/20 06:25 Creatinine 1.33 mg/dL (0.70-1.30) H 04/09/20 06:25 Estimated GFR/1.73 m2 54.13 (mL/min/1.73m2) 04/09/20 06:25 Glucose 93 mg/dL (74-106) 04/09/20 06:25 Lactate 1.0 mmol/L (0.6-1.4) 04/08/20 13:25 Calcium 9.0 mg/dL (8.5-10.1) 04/09/20 06:25 Magnesium 1.7 mg/dL (1.8-2.4) L 04/09/20 06:25 Total Bilirubin 0.4 mg/dL (0.2-1.0) 04/07/20 16:10 AST 16 U/L (15-37) 04/07/20 16:10 ALT 19 U/L (16-63) 04/07/20 16:10 Alkaline Phosphatase 168 U/L (46-116) H 04/07/20 16:10 Troponin I < 0.05 ng/mL (<0.06) 04/08/20 13:25 C-Reactive Protein 0.55 mg/dL (0.0-0.3) H 04/08/20 13:25 NT-Pro-B Natriuret Pep 1708 pg/mL (<300) H 04/08/20 13:25 Total Protein 7.1 g/dL (6.4-8.2) 04/07/20 16:10 Albumin 4.1 g/dL (3.4-5.0) 04/07/20 16:10 Lipase 132 U/L (73-393) 04/07/20 16:10 Procalcitonin < 0.1 ng/mL 04/08/20 13:25 Urine Color Yellow (Yellow) 04/07/20 17:25 Urine Clarity Clear (Clear) 04/07/20 17:25 Urine pH 5.5 (5-8) 04/07/20 17:25 Ur Specific [place] 1.015 (1.005-1.025) 04/07/20 17:25 Urine Protein Negative mg/dL (Negative) 04/07/20 17:25 Urine Ketones Negative mg/dL (Negative) 04/07/20 17:25 Urine Blood Moderate (Negative) H 04/07/20 17:25 Urine Nitrite Negative (Negative) 04/07/20 17:25 Urine Bilirubin Negative (Negative) 04/07/20 17:25 Urine Urobilinogen 0.2 EU/dL (Up TO 0.2) 04/07/20 17:25 Ur Leukocyte Esterase Negative (Negative) 04/07/20 17:25 Urine RBC 10-20 HPF (0-2) H 04/07/20 17:25 Urine WBC 0-2 HPF (0-5) 04/07/20 17:25 Ur Epithelial Cells Negative HPF (Negative) 04/07/20 17:25 Urine Crystals Negative HPF (Negative) 04/07/20 17:25 Urine Bacteria Negative HPF (Negative) 04/07/20 17:25 Urine Casts Negative LPF (Negative) 04/07/20 17:25 Urine Mucus Negative (Negative) 04/07/20 17:25 Urine Other Negative (Negative) 04/07/20 17:25 Ur Culture Indicated? No 04/07/20 17:25 Urine Glucose Negative mg/dL (Negative) 04/07/20 17:25 Salicylates < 2.8 mg/dL (2.8-20.0) 04/07/20 16:10 Urine Opiates Screen Negative (Negative) 04/07/20 17:25 Urine Methadone Screen Negative (Negative) 04/07/20 17:25 Acetaminophen < 2 ug/mL (10-30) 04/07/20 16:10 Ur Barbiturates Screen Negative (Negative) 04/07/20 17:25 Ur Tricyclics Screen Negative (Negative) 04/07/20 17:25 Ur Amphetamines Screen Negative (Negative) 04/07/20 17:25 U Benzodiazepines Scrn Positive (Negative) A 04/07/20 17:25 Urine Cocaine Screen Negative (Negative) 04/07/20 17:25 Ur THC Screen Negative (Negative) 04/07/20 17:25 Ethyl Alcohol < 3.0 mg/dL (<3) 04/07/20 16:10 COVID-19 PCR Negative (Negative) 04/07/20 20:05 Nasopharyn COVID-19 PCR Not Applicable 04/07/20 20:05 Ref Test Perform Site [facility] 04/07/20 20:05
[2020-04-09 16:58] LABS: Lamotrigine 12.8 mcg/mL (2.5 - 15.0)
[2020-04-09] MEDS: Atorvastatin 40 MG TAB PO (19:50)
[2020-04-10] VITALS (16 sets, daily range): BP systolic 84–117; BP diastolic 60–88; PULSE 76–129; RESP 15–19; TEMP 35.7–36.7; O2SAT 96–98
[2020-04-10] MEDS: Acetaminophen 500 MG TAB 1000 MG PO ×2 (06:18→17:39)
[2020-04-10 07:03] LABS: Anion Gap 7.9 mmol/L (3-11); BUN 15 mg/dL (7-18); CO2 29.1 mmol/L (21.0-32.0); Chloride 105 mmol/L (98-107); Glucose 105 mg/dL (74-106); Magnesium 1.9 mg/dL (1.8-2.4); Sodium 142 mmol/L (136-145)
[2020-04-10] MEDS: Mometasone 220 MCG 14 DOSE INHALER 2 PUFF IH ×2 (08:00→19:56)
[2020-04-10] MEDS: lamoTRIgine 100 MG TAB PO ×2 (08:33→19:57)
[2020-04-10] MEDS: diazePAM 2 MG TAB PO ×2 (08:33→19:57)
[2020-04-10] MEDS: Pantoprazole 40 MG TABCR PO (08:34)
[2020-04-10] MEDS: Clopidogrel 75 MG TAB PO (08:34)
[2020-04-10] MEDS: Gabapentin 300 MG CAP PO ×3 (08:35→19:56)
[2020-04-10] MEDS: Docusate Sodium 100 MG CAP PO ×2 (08:36→19:56)
[2020-04-10] MEDS: Senna TAB 1 TAB PO ×2 (08:36→19:57)
[2020-04-10] MEDS: Citalopram 20 MG TAB 40 MG PO (08:36)
[2020-04-10] MEDS: Apixaban 5 MG TAB PO ×2 (08:36→19:57)
[2020-04-10] MEDS: Normal Saline Flush 10 ML SYR IVP (08:37)
--- NOTE | 2020-04-10 09:49 | CMPROGNOTE_ITS ---
- If Service Date Differs Date of service: 04/10/20 Time of Service: 09:49 Care Management Progress Note S/O: Miguel was sitting up in bed when CM met with him. He was visibly distraught and stated that he had been told by a provider that she was going to have his drivers license taken away from him because he was not safe to drive. Miguel verbalized being really upset because he has barely driven in the past 10 years and asserts that he uses good judgment about his safety and that of others. He stated that the real issue was having his ability to make his own decisions taken away. Miguel reportedly shared with nursing staff that if his license was taken away, that he would not want to live. At one point he also threatened to leave AMA. His provider was concerned about these statements and requested a mental health crisis evaluation. CM contacted [facility] to evaluate Miguel but they declined, based on the fact that he is not yet medically cleared. LACHO also discussed the possibility of going to rehab for a time for strengthening and he verbalized agreement with the plan. A: Miguel is a 64 year old male with a history of post traumatic epilepsy, admitted with hypotension, and encephalopathy. P: Miguel will be discharged when medically ready, disposition to be determined. CM has faxed a referral to [facility] which he agrees to at this time. LTM application pending. 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 Transportation to be determined by disposition. cc:
[2020-04-10 09:52] LABS: PSA, Screening 3.8 ng/mL (0.0-4.5)
[2020-04-10] MEDS: Digoxin 0.5 MG/2 ML AMP 0.125 MG IVP (12:37)
--- NOTE | 2020-04-10 13:02 | PTTR_ITS ---
Date of service: 04/10/20 Time of Service: 13:02 PT Notes Visit Reasons: HYPOTENSION,ENCEPHALOPATHY Inpatient Physical Therapy Treatment Note [facility] Date: 04/10/2020 PRECAUTIONS: Fall. Standard. Activity as tolerated. Left AFO and left knee brace on when out of bed. SUBJECTIVE: Patient reports continued decrease in pain level in the left knee and increased ability with the use of the hinged-knee brace. He did express utmost disappointment about knowing that there is a possibility of him not being able to drive again. Son Marciano stated that we should let his dad decide for himself what is best for himself over the phone right after lunch today. 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 manager technical sales Keya was notified immediately about this concern. OBJECTIVE: General observation: Hinged brace left knee and ankle-foot orthosis on the left foot and ankle. Askew catheter in place. IV in the right UE. Pain report: None reported BED MOBILITY/TRANSFERS Supine to sit: Supervision with minimal verbal cueing provided for left LE management Sit to supine: Supervision with minimal verbal cueing provided for left LE management Sit-stand: CGA with minimal verbal cueing for right hand placement, requires use of front wheeled walker Stand-sit: CGA with minimal verbal cueing for right hand placement, requires use of front wheeled walker GAIT Assistive Device: FWW Weight bearing: WBAT on L LE Assist: FWW Distance: 400 feet Deviation: Circumducted gait on the left side. Foot drag on the left increased with fatigue. Patient continues to require cues for effective placement of L LE prior to advancement of R LE. Wheelchair follow provided. Patient reports increased stability with the use of hinged knee brace on the left. THERA EX: Patient tolerated bed level exercises consisting of straight leg raises (to 20 degrees from horizontal) x 5 with considerable discomfort, bridging x5, long arc quads x 10 with PT stabilizing left thigh. ASSESSMENT/PLAN: Left knee brace continues to provide stability and pain relief for patient during mobility ADL performance. Orthotic consult is in order. We will coordinate with care management in order to meet orthotic needs. Discharge recommendations: Patient will benefit from correction facility placement for continued skilled physical therapy services in order to progress mobility level, strength, and balance in preparation for a safe discharge to home. TREATMENT CODE/TIME: Session 1??[id number] x 26 minutes beginning at 10:26 AM. Session 2??[id number] x 14 minutes beginning at 13:02 PM. Patient was unavailable for the second attempt this afternoon for an exercise session.
--- NOTE | 2020-04-10 14:20 | PGE_ITS ---
Date of Service Date of service: 04/10/20 Time of Service: 14:20 Assessment and Plan Assessment and plan (1) Atrial flutter by electrocardiography: Status: Acute Assessment and plan: Rate still rapid, probably having to do with low BP and missed dose of metoprolol. At this point, I think we have to hold flomax, start proscar. S/p 1 dose of digoxin. Continue to monitor on tele and try to maximize beta blockade. Euvolemic - would not give more IVF. Manual BPs only. Due to low EF, he is not a great candidate for CCB. Continue anticoagulation with eliquis. (2) Suicidal ideation: Status: Acute Assessment and plan: The patient is giving me conflicting statements about SI. He wanted to leave AMA, but now is more willing to stay. He is about to talk to care management. I am placing a mental health consult. (3) Acute confusion: Status: Resolved Assessment and plan: Likely at his baseline. At this time, the most appropriate disposition would be SNF. Otherwise, would benefit from 24 hour care at home with medication supervision. THE PATIENT MUST NOT DRIVE. (4) Hypotension: Status: Resolved Assessment and plan: EF 35% on echo. BP this am worse - tamsulosin was held. I will continue to hold it and try to maximize BP room for metoprolol for HR control. (5) Urine retention: Status: Acute Assessment and plan: S/p brady. Slight hematuria in brady today - likely from brady trauma, but not clinically significant at this time. OK to continue plavix, anticoagulation. BP intolerant of flomax and metoprolol together. We will hold flomax; I started proscar. (6) Cerebrovascular accident (CVA) with left hemiparesis: Status: Chronic Assessment and plan: H/o. CT head negative. Continue plavix, statin. (7) Pulmonary embolism: Status: Chronic Assessment and plan: Recurrent event ruled out. Continue eliquis (8) Chronic systolic (congestive) heart failure: Status: Chronic Assessment and plan: EF 35%. continue to monitor on tele. Dehydrated when presented, appears euvolemic at this time. Holding diuresis. (9) Discharge planning issues: Status: Acute Assessment and plan: Full code. Will benefit from SNF on discharge. Palliative care consulted. Mental health consulted. Subjective Subjective Interval history since last seen: More hypotensive today, even though this morning both flomax and metoprolol were held. Remains in Aflutter, HR in 120s'. Denies dizziness, reports an episode of chest pain earlier today that he didn't report to anyone. Denies SOB, n/v. 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 Unfortunately, I am not sure exactly what was said in the conversation that caused this reaction other than the patient being told that he cannot drive. As far as I know, no one told him that his license would be taken away. The patient stated that driver license reviewing officer's license is his only reason for living. He states he will not drive for the next 6 months - he'll give me that. We discussed that it is a safety issue, and not just for him, but for the entire community. He said that his PCP told him he could drive. We discussed that that's not the opinion of us on his inpatient medical team. He then said that he didn't care if he lived or anymore. He said that we (the hospital) put those thoughts there. He also told me he wasn't suicidal at this moment. The patient states he was previously a client of [facility], but states he hasn't been following up with them lately. He is willing to talk to them today. Exam Narrative Exam Narrative: General: Pleasant middle-aged male, does NOT remember me, A&Ox2, L hemiparesis HEENT: EOMI, MMM Heart: RRR, tachycardic, no m/r/g Lungs: CTAB, slight rales at bases Abdomen: soft, nontender, nondistended Extremities: trace edema at B ankles Objective Objective Clinical Data: Vital Signs Temperature 36.2 C L 04/10/20 10:58 Temperature Source Tympanic 04/10/20 10:58 Pulse 128 H 04/10/20 14:18 Pulse Rhythm Regular 04/10/20 09:57 Pulse 110 H 04/07/20 20:10 Respiratory Rate 15 04/10/20 10:58 Respiratory Effort Non-Labored 04/10/20 09:57 Respiratory Depth Normal 04/10/20 09:57 Respiratory Pattern Normal 04/10/20 09:57 Blood Pressure 108/78 04/10/20 14:18 Blood Pressure Mean 78 04/07/20 20:53 Blood Pressure Position Supine 04/07/20 16:08 Pulse Oximetry 98 04/10/20 10:58 Oxygen Delivery Method Room Air 04/10/20 10:58 Oxygen Flow Rate 0 04/10/20 10:58 Pain Level 9 04/10/20 10:58 Comment 04/10/20 10:58 Intake & Output 04/09/20 04/10/20 04/10/20 23:59 11:59 23:59 Intake Total 400 / 980 360 / 360 Output Total 1625 / 2525 1000 / 1000 Balance -1225 / -1545 -640 / -640 Weight 60.8 kg Intake: IV 250 / 250 10 10 Oral 150 / 730 350 / 350 Output: Urine 1625 / 2525 1000 / 1000 Other: Urine Color Straw Light Galilea Urine Appearance Clear Clear Comment slight pink tinge Stool Size Large Small Stool Characteristics Soft Soft Formed Brown Brown Laboratory Results WBC 5.50 k/cumm (4.4-10.8) 04/09/20 06:25 RBC 4.46 m/cumm (4.50-6.00) L 04/09/20 06:25 Hgb 12.8 g/dL (13.5-17.5) L 04/09/20 06:25 Hct 40.3 % (40.0-50.0) 04/09/20 06:25 MCV 90.4 fL (80-95) 04/09/20 06:25 MCH 28.7 pg (27.0-33.0) 04/09/20 06:25 MCHC 31.8 g/dL (32.0-36.0) L 04/09/20 06:25 RDW 14.0 % (11.8-14.1) 04/09/20 06:25 Plt Count 126 x1000/uL (130-400) L 04/09/20 06:25 MPV 10.1 fL (8.0-11.0) 04/09/20 06:25 Immature Gran % 0.2 % 04/09/20 06:25 Neutrophils % 64.0 04/09/20 06:25 Lymphocytes % 21.8 04/09/20 06:25 Monocytes % 9.5 04/09/20 06:25 Eosinophils % 4.0 04/09/20 06:25 Basophils % 0.5 04/09/20 06:25 Absolute Neutrophils 3.52 k/cumm (1.2-6.7) 04/09/20 06:25 Absolute Lymphocytes 1.20 k/cumm (1.2-3.4) 04/09/20 06:25 Absolute Monocytes 0.52 k/cumm (0.11-0.7) 04/09/20 06:25 Absolute Eosinophils 0.22 k/cumm (0.0-0.7) 04/09/20 06:25 Absolute Basophils 0.03 k/cumm (0.0-0.2) 04/09/20 06:25 PT 11.0 sec (9.3-11.0) 04/07/20 16:10 INR 1.1 (0.9-1.1) 04/07/20 16:10 APTT 27.7 sec (21.0-31.4) 04/07/20 16:10 Sodium 142 mmol/L (136-145) 04/10/20 06:35 Potassium 4.0 mmol/L (3.5-5.1) 04/10/20 06:35 Chloride 105 mmol/L (98-107) 04/10/20 06:35 Carbon Dioxide 29.1 mmol/L (21.0-32.0) 04/10/20 06:35 Anion Gap 7.9 mmol/L (3-11) 04/10/20 06:35 BUN 15 mg/dL (7-18) 04/10/20 06:35 Creatinine 1.10 mg/dL (0.70-1.30) 04/10/20 06:35 Estimated GFR/1.73 m2 >= 60.00 (mL/min/1.73m2) 04/10/20 06:35 Glucose 105 mg/dL (74-106) 04/10/20 06:35 Lactate 1.0 mmol/L (0.6-1.4) 04/08/20 13:25 Calcium 9.0 mg/dL (8.5-10.1) 04/10/20 06:35 Magnesium 1.9 mg/dL (1.8-2.4) 04/10/20 06:35 Total Bilirubin 0.4 mg/dL (0.2-1.0) 04/07/20 16:10 AST 16 U/L (15-37) 04/07/20 16:10 ALT 19 U/L (16-63) 04/07/20 16:10 Alkaline Phosphatase 168 U/L (46-116) H 04/07/20 16:10 Troponin I < 0.05 ng/mL (<0.06) 04/08/20 13:25 C-Reactive Protein 0.55 mg/dL (0.0-0.3) H 04/08/20 13:25 NT-Pro-B Natriuret Pep 1708 pg/mL (<300) H 04/08/20 13:25 Total Protein 7.1 g/dL (6.4-8.2) 04/07/20 16:10 Albumin 4.1 g/dL (3.4-5.0) 04/07/20 16:10 Lipase 132 U/L (73-393) 04/07/20 16:10 PSA Screen 3.8 ng/mL (0.0-4.5) 04/09/20 06:25 Procalcitonin < 0.1 ng/mL 04/08/20 13:25 Urine Color Yellow (Yellow) 04/07/20 17:25 Urine Clarity Clear (Clear) 04/07/20 17:25 Urine pH 5.5 (5-8) 04/07/20 17:25 Ur Specific [place] 1.015 (1.005-1.025) 04/07/20 17:25 Urine Protein Negative mg/dL (Negative) 04/07/20 17:25 Urine Ketones Negative mg/dL (Negative) 04/07/20 17:25 Urine Blood Moderate (Negative) H 04/07/20 17:25 Urine Nitrite Negative (Negative) 04/07/20 17:25 Urine Bilirubin Negative (Negative) 04/07/20 17:25 Urine Urobilinogen 0.2 EU/dL (Up TO 0.2) 04/07/20 17:25 Ur Leukocyte Esterase Negative (Negative) 04/07/20 17:25 Urine RBC 10-20 HPF (0-2) H 04/07/20 17:25 Urine WBC 0-2 HPF (0-5) 04/07/20 17:25 Ur Epithelial Cells Negative HPF (Negative) 04/07/20 17:25 Urine Crystals Negative HPF (Negative) 04/07/20 17:25 Urine Bacteria Negative HPF (Negative) 04/07/20 17:25 Urine Casts Negative LPF (Negative) 04/07/20 17:25 Urine Mucus Negative (Negative) 04/07/20 17:25 Urine Other Negative (Negative) 04/07/20 17:25 Ur Culture Indicated? No 04/07/20 17:25 Urine Glucose Negative mg/dL (Negative) 04/07/20 17:25 Salicylates < 2.8 mg/dL (2.8-20.0) 04/07/20 16:10 Urine Opiates Screen Negative (Negative) 04/07/20 17:25 Urine Methadone Screen Negative (Negative) 04/07/20 17:25 Acetaminophen < 2 ug/mL (10-30) 04/07/20 16:10 Ur Barbiturates Screen Negative (Negative) 04/07/20 17:25 Lamotrigine 12.8 mcg/mL (2.5 - 15.0) 04/07/20 16:20 Ur Tricyclics Screen Negative (Negative) 04/07/20 17:25 Ur Amphetamines Screen Negative (Negative) 04/07/20 17:25 U Benzodiazepines Scrn Positive (Negative) A 04/07/20 17:25 Urine Cocaine Screen Negative (Negative) 04/07/20 17:25 Ur THC Screen Negative (Negative) 04/07/20 17:25 Ethyl Alcohol < 3.0 mg/dL (<3) 04/07/20 16:10 COVID-19 PCR Negative (Negative) 04/07/20 20:05 Nasopharyn COVID-19 PCR Not Applicable 04/07/20 20:05 Ref Test Perform Site [facility] lab 04/07/20 20:05 Echo: EF 35%, LV segmental wall motion abnormalities. PA pressure 22 mmHg.
[2020-04-10] MEDS: Metoprolol 12.5 MG TAB PO ×2 (14:26→17:39)
--- NOTE | 2020-04-10 14:27 | NUR.NOTE ---
Nursing Note: doctor peterson wanted blood pressure checked to see if we could give noontime dose of metoprolol. blood pressure was 108/78 and doctor peterson instructed me to administer metoprolol noon dose that was previously held. blood pressure and heart rate will continue to be monitored.
--- NOTE | 2020-04-10 14:41 | NUR.NOTE ---
Nursing Note: Patient tells this nurse that if he can find a ride home it was his intention to leave AMA. He further said if the Doctors here took his drivers license he wanted to go home and . I informed [facility] and care mgt of such. I went to patients room with Dr. Felix. Patient is rambling and forgetful at times, but stated he did not intend to drive, that he wanted to keep the license in his possession, that this was what he was only living for. He is assured by Dr. Felix that she did not intend to take his license, but affirmed to him that he is unsafe to drive. He talked in circles, saying that he would only drive if necessary. tells [facility] not to drive. Patient appears to be willing to stay at this time and follow POC. I inform Dr. Felix on how this interactions increase his HR back to 130. She questions metoprolol. I told her Bp has been under parameters. Per her request and order . BP was take n by peer nurse. It is within parameter, She orders noon time dose to be administered
--- NOTE | 2020-04-10 15:44 | CHAPLAIN ---
Miguel seemed more like his usual self today. He talked some about Evita (his who nine months ago). Miguel said their son, Marciano, has been more attentive to him lately, since Evita , because Miguel said Marciano is worried that Miguel could as well. Miguel would like to move into the [facility] apartments, and be living in town so he could walk to congregation and be more social.
[2020-04-10] MEDS: Finasteride 5 MG TAB PO (16:34)
[2020-04-10] MEDS: Atorvastatin 40 MG TAB PO (19:57)
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
[2020-04-10] MEDS: fentaNYL 75 MCG PATCH TD (21:35)
[2020-04-11] VITALS (13 sets, daily range): BP systolic 90–112; BP diastolic 60–78; PULSE 112–136; RESP 16–18; TEMP 35.1–37.5; O2SAT 93–98
[2020-04-11] MEDS: Metoprolol 12.5 MG TAB PO ×2 (00:32→07:08)
[2020-04-11 07:26] LABS: BUN 15 mg/dL (7-18); CREATININE 1.14 mg/dL (0.70-1.30); Calcium 9.3 mg/dL (8.5-10.1); Glucose 144 mg/dL (74-106)
[2020-04-11 07:27] LABS: Anion Gap 8.9 mmol/L (3-11); CO2 26.1 mmol/L (21.0-32.0); Chloride 106 mmol/L (98-107); Magnesium 1.8 mg/dL (1.8-2.4); Potassium 3.9 mmol/L (3.5-5.1); Sodium 141 mmol/L (136-145)
[2020-04-11] MEDS: diazePAM 2 MG TAB PO ×2 (07:40→20:00)
[2020-04-11] MEDS: Docusate Sodium 100 MG CAP PO ×2 (07:41→19:59)
[2020-04-11] MEDS: Pantoprazole 40 MG TABCR PO (07:41)
[2020-04-11] MEDS: Clopidogrel 75 MG TAB PO (07:41)
[2020-04-11] MEDS: lamoTRIgine 100 MG TAB PO ×2 (07:41→20:00)
[2020-04-11] MEDS: Apixaban 5 MG TAB PO ×2 (07:42→20:13)
[2020-04-11] MEDS: Senna TAB 1 TAB PO ×2 (07:42→20:54)
[2020-04-11] MEDS: Citalopram 20 MG TAB 40 MG PO (07:42)
[2020-04-11] MEDS: Finasteride 5 MG TAB PO (07:43)
[2020-04-11] MEDS: Gabapentin 300 MG CAP PO ×2 (07:43→19:59)
[2020-04-11] MEDS: Mometasone 220 MCG 14 DOSE INHALER 2 PUFF IH ×2 (07:50→20:54)
[2020-04-11] MEDS: Acetaminophen 500 MG TAB 1000 MG PO (11:38)
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
--- NOTE | 2020-04-11 13:17 | CMPROGNOTE_ITS ---
- If Service Date Differs Date of service: 04/11/20 Time of Service: 13:17 Care Management Progress Note S/O: Miguel was sitting up in bed when CM met with him. He was pleasant and engaged readily in conversation. When asked if he was feeling suicidal today, Miguel denied having those feelings. 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 Miguel requested a word search book and c oloring book and crayons which CM provided. Miguel also reaffirmed his desire to go to [facility] when he is medically cleared. No determination has been received from [facility] regarding a bed offer yet. A: Miguel is a 64 year old male with a history of post traumatic epilepsy, admitted with hypotension, and encephalopathy. P: Miguel will be discharged when medically ready. CM has faxed a referral to [facility] which he agrees to at this time. No bed offer has been received yet. LTM application pending. If Miguel returns home he will have resumption of home health nursing and he would like to return to adult day if possible, CM will follow up with Adult day services after reviewing plan with community relations officer to determine barriers. Transportation to be determined by disposition.
--- NOTE | 2020-04-11 13:45 | PTTR_ITS ---
Date of service: 04/11/20 Time of Service: 13:45 PT Notes Visit Reasons: HYPOTENSION,ENCEPHALOPATHY Inpatient Physical Therapy Treatment Note [facility] Date: 04/11/2020 PRECAUTIONS: Fall. Standard. Activity as tolerated. Left AFO and left knee brace on when out of bed. SUBJECTIVE: Patient reports that he did not eat supper last night as he did not have the appetite nor the motivation due to the previous events of yesterday. He indicates that he feels considerably tired at the start of the morning session. OBJECTIVE: General observation: Patient appeared significantly drowsy early in the session. Hinged brace left knee and ankle-foot orthosis on the left foot and ankle. Askew catheter in place. IV in the right UE. Pain report: 6/10 in the left knee BED MOBILITY/TRANSFERS Supine to sit: Supervision with minimal verbal cueing provided for left LE management Sit to supine: Supervision with minimal verbal cueing provided for left LE management Sit-stand: CGA with minimal verbal cueing for right hand placement, requires use of front wheeled walker Stand-sit: CGA with minimal verbal cueing for right hand placement, requires use of front wheeled walker GAIT Assistive Device: FWW Weight bearing: WBAT on L LE Assist: FWW Distance: 100 feet Deviation: Left knee gave way x1 due to pain report of 6-7/10. Circumducted gait on the left side. Foot drag on the left increased with fatigue. Patient continues to require cues for effective placement of L LE prior to advancement of R LE. Wheelchair follow provided. THERA EX: Patient tolerated seated level exercises consisting of long arc quads for 5 reps x 2 sets, seated hip flexion for 5 reps x 2 sets, knee flexion for 5 reps x2 sets with 3 pound ankle weight on the right and 2 pound ankle weight on the left side. Patient also tolerated seated hip flexion x10 and clamshell exercises x10 using red Thera-Band. DBE x5 after each activity was facilitated by fatigue. Patient also tolerated chair push-ups with B hands on armrests for 5 reps x2 sets with good response. ASSESSMENT/PLAN: Patient performed significantly better in the afternoon and was able to tolerate seated level exercises. Left knee brace continues to provide stability and pain relief for patient during mobility ADL performance. Anticipate orthotic consult to be initiated here or in the SNF once placed. Discharge recommendations: Patient will benefit from senior care facility placement for continued skilled physical therapy services in order to progress mobility level, strength, and balance in preparation for a safe discharge to home. TREATMENT CODE/TIME: Session 1??22315 x 45 minutes beginning at 9:27 AM. Session 2??63118 x 33 minutes beginning at 13:45 PM.
[2020-04-11] MEDS: Digoxin 0.5 MG/2 ML AMP 0.125 MG IVP (14:58)
--- NOTE | 2020-04-11 17:02 | PGE_ITS ---
Date of Service Date of service: 04/11/20 Time of Service: 18:23 Assessment and Plan Assessment and plan (1) Atrial flutter by electrocardiography: Status: Acute Assessment and plan: Rate still rapid, difficult to control given the borderline low BPs. Appreciate cardiology help. Will schedule daily digoxin, continue to administer cardizem (started today) as much as BP tolerate. Metoprolol d/c'ed. Continue to monitor on tele. Manual BPs only. Continue anticoagulation with eliquis. Need to document compliance with anticoagulation x 30 days prior to being considered a candidate for ablation vs cardioversion (ablation preferred) - for this, his best chances are to go to SNF on discharge. (2) Suicidal ideation: Status: Resolved Assessment and plan: Not endorsing this today. Mental health to see the patient when medically cleared. (3) Acute confusion: Status: Resolved Assessment and plan: Likely at his baseline. At this time, the most appropriate disposition would be SNF. Otherwise, would benefit from 24 hour care at home with medication supervision. THE PATIENT MUST NOT DRIVE. (4) Hypotension: Status: Resolved Assessment and plan: EF 35% on echo. Read discussion above as far as choice of antihypertensives. (5) Urine retention: Status: Acute Assessment and plan: DId not tolerate brady. Started on proscar. However, having BM's, so there is hope that he will pass the voiding trial within the next 24 hours - per urology. Continue proscar. (6) Cerebrovascular accident (CVA) with left hemiparesis: Status: Chronic Assessment and plan: H/o. CT head negative. Continue plavix, statin. (7) Pulmonary embolism: Status: Chronic Assessment and plan: Recurrent event ruled out. Continue eliquis (8) Chronic systolic (congestive) heart failure: Status: Chronic Assessment and plan: EF 35%. continue to monitor on tele. Dehydrated when presented, appears euvolemic at this time. Holding diuresis. Will need nonurgent (outpatient) stress test. (9) Discharge planning issues: Status: Acute Assessment and plan: Full code. Will benefit from SNF on discharge. Palliative care consulted. Mental health consulted. Subjective Subjective Interval history since last seen: Mr Pérez states that he is feeling well. Denies headache, endorses a little tingling in his LUE, denies dizziness, chest pain, shortness of breath,nausea. Remains in Aflutter with BP's in the 80's-90's. Evaluated by cardiology today - needs to be compliant with anticoagulation in order to be considered for cardioversion vs ablation, which he has the best chance of being if he goes to SNF. We [facility]'t heard back from [facility] yet as far as whether or not he will be accepted there. Exam Narrative Exam Narrative: General: Pleasant middle-aged male, A&Ox2, L hemiparesis HEENT: EOMI, MMM Heart: RRR, tachycardic, no m/r/g Lungs: CTAB, slight rales at bases Abdomen: soft, nontender, nondistended Extremities: trace edema at B ankles Objective Objective Clinical Data: Abnormal lab results 04/11/20 Range/Units 06:40 Glucose 144 H (74-106) mg/dL Vital Signs Temperature 36.0 C L 04/11/20 11:15 Temperature Source Tympanic 04/11/20 11:15 Pulse 122 H 04/11/20 14:58 Pulse Rhythm Irregular 04/11/20 10:45 Pulse 110 H 04/07/20 20:10 Respiratory Rate 16 04/11/20 14:23 Respiratory Effort Non-Labored 04/11/20 10:45 Respiratory Depth Normal 04/11/20 10:45 Respiratory Pattern Normal 04/11/20 10:45 Blood Pressure 90/60 L 04/11/20 14:58 Blood Pressure Mean 78 04/07/20 20:53 Blood Pressure Position Supine 04/07/20 16:08 Pulse Oximetry 95 04/11/20 14:23 Oxygen Delivery Method Room Air 04/11/20 14:23 Oxygen Flow Rate 0 04/11/20 14:23 Pain Level 8 04/11/20 12:38 Comment 04/10/20 19:15 Intake & Output 04/10/20 04/11/20 04/11/20 23:59 11:59 23:59 Intake Total 240 / 600 940 / 1180 240 / 1180 Output Total 1400 / 2400 250 / 600 350 / 600 Balance -1160 / -1800 690 / 580 -110 / 580 Weight 59.1 kg Intake: Oral 240 / 590 940 / 1180 240 / 1180 Output: Urine 1400 / 2400 250 / 600 350 / 600 Other: Urine Color Light Galilea Runnells Light Galilea Runnells Bright Red Urine Appearance Clear Hematuria Clear Stool Size Small Small Small Stool Characteristics Soft Soft Formed Formed Formed Laboratory Results WBC 5.50 k/cumm (4.4-10.8) 04/09/20 06:25 RBC 4.46 m/cumm (4.50-6.00) L 04/09/20 06:25 Hgb 12.8 g/dL (13.5-17.5) L 04/09/20 06:25 Hct 40.3 % (40.0-50.0) 04/09/20 06:25 MCV 90.4 fL (80-95) 04/09/20 06:25 MCH 28.7 pg (27.0-33.0) 04/09/20 06:25 MCHC 31.8 g/dL (32.0-36.0) L 04/09/20 06:25 RDW 14.0 % (11.8-14.1) 04/09/20 06:25 Plt Count 126 x1000/uL (130-400) L 04/09/20 06:25 MPV 10.1 fL (8.0-11.0) 04/09/20 06:25 Immature Gran % 0.2 % 04/09/20 06:25 Neutrophils % 64.0 04/09/20 06:25 Lymphocytes % 21.8 04/09/20 06:25 Monocytes % 9.5 04/09/20 06:25 Eosinophils % 4.0 04/09/20 06:25 Basophils % 0.5 04/09/20 06:25 Absolute Neutrophils 3.52 k/cumm (1.2-6.7) 04/09/20 06:25 Absolute Lymphocytes 1.20 k/cumm (1.2-3.4) 04/09/20 06:25 Absolute Monocytes 0.52 k/cumm (0.11-0.7) 04/09/20 06:25 Absolute Eosinophils 0.22 k/cumm (0.0-0.7) 04/09/20 06:25 Absolute Basophils 0.03 k/cumm (0.0-0.2) 04/09/20 06:25 PT 11.0 sec (9.3-11.0) 04/07/20 16:10 INR 1.1 (0.9-1.1) 04/07/20 16:10 APTT 27.7 sec (21.0-31.4) 04/07/20 16:10 Sodium 141 mmol/L (136-145) 04/11/20 06:40 Potassium 3.9 mmol/L (3.5-5.1) 04/11/20 06:40 Chloride 106 mmol/L (98-107) 04/11/20 06:40 Carbon Dioxide 26.1 mmol/L (21.0-32.0) 04/11/20 06:40 Anion Gap 8.9 mmol/L (3-11) 04/11/20 06:40 BUN 15 mg/dL (7-18) 04/11/20 06:40 Creatinine 1.14 mg/dL (0.70-1.30) 04/11/20 06:40 Estimated GFR/1.73 m2 >= 60.00 (mL/min/1.73m2) 04/11/20 06:40 Glucose 144 mg/dL (74-106) H 04/11/20 06:40 Lactate 1.0 mmol/L (0.6-1.4) 04/08/20 13:25 Calcium 9.3 mg/dL (8.5-10.1) 04/11/20 06:40 Magnesium 1.8 mg/dL (1.8-2.4) 04/11/20 06:40 Total Bilirubin 0.4 mg/dL (0.2-1.0) 04/07/20 16:10 AST 16 U/L (15-37) 04/07/20 16:10 ALT 19 U/L (16-63) 04/07/20 16:10 Alkaline Phosphatase 168 U/L (46-116) H 04/07/20 16:10 Troponin I < 0.05 ng/mL (<0.06) 04/08/20 13:25 C-Reactive Protein 0.55 mg/dL (0.0-0.3) H 04/08/20 13:25 NT-Pro-B Natriuret Pep 1708 pg/mL (<300) H 04/08/20 13:25 Total Protein 7.1 g/dL (6.4-8.2) 04/07/20 16:10 Albumin 4.1 g/dL (3.4-5.0) 04/07/20 16:10 Lipase 132 U/L (73-393) 04/07/20 16:10 PSA Screen 3.8 ng/mL (0.0-4.5) 04/09/20 06:25 Procalcitonin < 0.1 ng/mL 04/08/20 13:25 Urine Color Yellow (Yellow) 04/07/20 17:25 Urine Clarity Clear (Clear) 04/07/20 17:25 Urine pH 5.5 (5-8) 04/07/20 17:25 Ur Specific [place] 1.015 (1.005-1.025) 04/07/20 17:25 Urine Protein Negative mg/dL (Negative) 04/07/20 17:25 Urine Ketones Negative mg/dL (Negative) 04/07/20 17:25 Urine Blood Moderate (Negative) H 04/07/20 17:25 Urine Nitrite Negative (Negative) 04/07/20 17:25 Urine Bilirubin Negative (Negative) 04/07/20 17:25 Urine Urobilinogen 0.2 EU/dL (Up TO 0.2) 04/07/20 17:25 Ur Leukocyte Esterase Negative (Negative) 04/07/20 17:25 Urine RBC 10-20 HPF (0-2) H 04/07/20 17:25 Urine WBC 0-2 HPF (0-5) 04/07/20 17:25 Ur Epithelial Cells Negative HPF (Negative) 04/07/20 17:25 Urine Crystals Negative HPF (Negative) 04/07/20 17:25 Urine Bacteria Negative HPF (Negative) 04/07/20 17:25 Urine Casts Negative LPF (Negative) 04/07/20 17:25 Urine Mucus Negative (Negative) 04/07/20 17:25 Urine Other Negative (Negative) 04/07/20 17:25 Ur Culture Indicated? No 04/07/20 17:25 Urine Glucose Negative mg/dL (Negative) 04/07/20 17:25 Salicylates < 2.8 mg/dL (2.8-20.0) 04/07/20 16:10 Urine Opiates Screen Negative (Negative) 04/07/20 17:25 Urine Methadone Screen Negative (Negative) 04/07/20 17:25 Acetaminophen < 2 ug/mL (10-30) 04/07/20 16:10 Ur Barbiturates Screen Negative (Negative) 04/07/20 17:25 Lamotrigine 12.8 mcg/mL (2.5 - 15.0) 04/07/20 16:20 Ur Tricyclics Screen Negative (Negative) 04/07/20 17:25 Ur Amphetamines Screen Negative (Negative) 04/07/20 17:25 U Benzodiazepines Scrn Positive (Negative) A 04/07/20 17:25 Urine Cocaine Screen Negative (Negative) 04/07/20 17:25 Ur THC Screen Negative (Negative) 04/07/20 17:25 Ethyl Alcohol < 3.0 mg/dL (<3) 04/07/20 16:10 COVID-19 PCR Negative (Negative) 04/07/20 20:05 Nasopharyn COVID-19 PCR Not Applicable 04/07/20 20:05 Ref Test Perform Site [facility] 04/07/20 20:05
[2020-04-11 19:46] LABS: Troponin I < 0.05 ng/mL (<0.06)
[2020-04-11] MEDS: Atorvastatin 40 MG TAB PO (19:59)
[2020-04-11] MEDS: dilTIAZem 30 MG TAB PO (19:59)
[2020-04-11] MEDS: Metoprolol 5 MG/5 ML VIAL 2.5 MG IVP (21:47)
[2020-04-11 23:00] LABS: Troponin I < 0.05 ng/mL (<0.06)
[2020-04-12] VITALS (15 sets, daily range): BP systolic 92–116; BP diastolic 60–80; PULSE 93–142; RESP 16–19; TEMP 36.2–39.5; O2SAT 93–99
--- NOTE | 2020-04-12 | DI.RAD_ITS ---
EXAM: XR PORTABLE CHEST AP CLINICAL HISTORY: FUO TECHNIQUE: 2D digital imaging was performed. COMPARISON: CR,XR XR CHEST 2V PA LATERAL from 12/29/2019 CR XR CHEST 2V PA LATERAL from 02/19/2020 FINDINGS: LUNGS: Clear. No pleural abnormality seen. HEART: Normal. Leads overlie the chest. IMPRESSION: No acute pulmonary findings. DATA REPOSITORY: RADIATION DOSE DELIVERED:
[2020-04-12] MEDS: dilTIAZem 30 MG TAB PO ×2 (04:08→19:38)
--- NOTE | 2020-04-12 06:59 | PGE_ITS ---
Date of Service Date of service: 04/11/20 Time of Service: 16:59 Assessment and Plan Assessment and plan (1) Urine retention: Status: Acute Assessment and plan: 5 alpha reductase inhibitors can take up to 3 to 6 months before seeing their maximum effect on urination. Some of his other issues that can contribute to difficulty voiding (such as constipation and immobility) seem to have improved, so I think it is reasonable to give him a voiding trial. I will ask that his Askew catheter be removed tomorrow morning. Subjective Subjective Interval history since last seen: He has been unable to tolerate the alpha duarte due to hypotension, so he was started on a 5 alpha reductase inhibitor. His bowels have been moving and he has been ambulating with assistance. Exam Narrative Exam Narrative: He looks a bit more lively than when I first saw him His vital signs are documented elsewhere His urine is light pink in his catheter bag He is awake and alert Objective Objective Clinical Data: Abnormal lab results 04/11/20 Range/Units 06:40 Glucose 144 H (74-106) mg/dL Vital Signs Temperature 37.2 C 04/12/20 03:10 Temperature Source Tympanic 04/12/20 03:10 Pulse 104 H 04/12/20 04:08 Pulse Rhythm Irregular 04/11/20 21:04 Pulse 110 H 04/07/20 20:10 Respiratory Rate 16 04/12/20 03:10 Respiratory Effort Non-Labored 04/11/20 21:04 Respiratory Depth Normal 04/11/20 21:04 Respiratory Pattern Normal 04/11/20 21:04 Blood Pressure 105/70 04/12/20 03:10 Blood Pressure Mean 78 04/07/20 20:53 Blood Pressure Position Supine 04/07/20 16:08 Pulse Oximetry 95 04/12/20 03:10 Oxygen Delivery Method Room Air 04/12/20 03:10 Oxygen Flow Rate 0 04/12/20 03:10 Pain Level 5 04/11/20 23:15 Comment 04/12/20 04:08 Intake & Output 04/11/20 04/11/20 04/12/20 11:59 23:59 11:59 Intake Total 940 / 1430 490 / 1430 Output Total 250 / 800 550 / 800 300 / 300 Balance 690 / 630 -60 / 630 -300 / -300 Weight 59.1 kg 60.4 kg Intake: IV Oral 940 / 1420 480 / 1420 Output: Urine 250 / 800 550 / 800 300 / 300 Other: Urine Color [place] Light [place] Light [place] Urine Appearance Hematuria Clear Clear Stool Size Small Small Stool Characteristics Soft Formed Formed Laboratory Results WBC 5.50 k/cumm (4.4-10.8) 04/09/20 06:25 RBC 4.46 m/cumm (4.50-6.00) L 04/09/20 06:25 Hgb 12.8 g/dL (13.5-17.5) L 04/09/20 06:25 Hct 40.3 % (40.0-50.0) 04/09/20 06:25 MCV 90.4 fL (80-95) 04/09/20 06:25 MCH 28.7 pg (27.0-33.0) 04/09/20 06:25 MCHC 31.8 g/dL (32.0-36.0) L 04/09/20 06:25 RDW 14.0 % (11.8-14.1) 04/09/20 06:25 Plt Count 126 x1000/uL (130-400) L 04/09/20 06:25 MPV 10.1 fL (8.0-11.0) 04/09/20 06:25 Immature Gran % 0.2 % 04/09/20 06:25 Neutrophils % 64.0 04/09/20 06:25 Lymphocytes % 21.8 04/09/20 06:25 Monocytes % 9.5 04/09/20 06:25 Eosinophils % 4.0 04/09/20 06:25 Basophils % 0.5 04/09/20 06:25 Absolute Neutrophils 3.52 k/cumm (1.2-6.7) 04/09/20 06:25 Absolute Lymphocytes 1.20 k/cumm (1.2-3.4) 04/09/20 06:25 Absolute Monocytes 0.52 k/cumm (0.11-0.7) 04/09/20 06:25 Absolute Eosinophils 0.22 k/cumm (0.0-0.7) 04/09/20 06:25 Absolute Basophils 0.03 k/cumm (0.0-0.2) 04/09/20 06:25 PT 11.0 sec (9.3-11.0) 04/07/20 16:10 INR 1.1 (0.9-1.1) 04/07/20 16:10 APTT 27.7 sec (21.0-31.4) 04/07/20 16:10 Sodium 141 mmol/L (136-145) 04/11/20 06:40 Potassium 3.9 mmol/L (3.5-5.1) 04/11/20 06:40 Chloride 106 mmol/L (98-107) 04/11/20 06:40 Carbon Dioxide 26.1 mmol/L (21.0-32.0) 04/11/20 06:40 Anion Gap 8.9 mmol/L (3-11) 04/11/20 06:40 BUN 15 mg/dL (7-18) 04/11/20 06:40 Creatinine 1.14 mg/dL (0.70-1.30) 04/11/20 06:40 Estimated GFR/1.73 m2 >= 60.00 (mL/min/1.73m2) 04/11/20 06:40 Glucose 144 mg/dL (74-106) H 04/11/20 06:40 Lactate 1.0 mmol/L (0.6-1.4) 04/08/20 13:25 Calcium 9.3 mg/dL (8.5-10.1) 04/11/20 06:40 Magnesium 1.8 mg/dL (1.8-2.4) 04/11/20 06:40 Total Bilirubin 0.4 mg/dL (0.2-1.0) 04/07/20 16:10 AST 16 U/L (15-37) 04/07/20 16:10 ALT 19 U/L (16-63) 04/07/20 16:10 Alkaline Phosphatase 168 U/L (46-116) H 04/07/20 16:10 Troponin I < 0.05 ng/mL (<0.06) 04/11/20 22:23 C-Reactive Protein 0.55 mg/dL (0.0-0.3) H 04/08/20 13:25 NT-Pro-B Natriuret Pep 1708 pg/mL (<300) H 04/08/20 13:25 Total Protein 7.1 g/dL (6.4-8.2) 04/07/20 16:10 Albumin 4.1 g/dL (3.4-5.0) 04/07/20 16:10 Lipase 132 U/L (73-393) 04/07/20 16:10 PSA Screen 3.8 ng/mL (0.0-4.5) 04/09/20 06:25 Procalcitonin < 0.1 ng/mL 04/08/20 13:25 Urine Color Yellow (Yellow) 04/07/20 17:25 Urine Clarity Clear (Clear) 04/07/20 17:25 Urine pH 5.5 (5-8) 04/07/20 17:25 Ur Specific [place] 1.015 (1.005-1.025) 04/07/20 17:25 Urine Protein Negative mg/dL (Negative) 04/07/20 17:25 Urine Ketones Negative mg/dL (Negative) 04/07/20 17:25 Urine Blood Moderate (Negative) H 04/07/20 17:25 Urine Nitrite Negative (Negative) 04/07/20 17:25 Urine Bilirubin Negative (Negative) 04/07/20 17:25 Urine Urobilinogen 0.2 EU/dL (Up TO 0.2) 04/07/20 17:25 Ur Leukocyte Esterase Negative (Negative) 04/07/20 17:25 Urine RBC 10-20 HPF (0-2) H 04/07/20 17:25 Urine WBC 0-2 HPF (0-5) 04/07/20 17:25 Ur Epithelial Cells Negative HPF (Negative) 04/07/20 17:25 Urine Crystals Negative HPF (Negative) 04/07/20 17:25 Urine Bacteria Negative HPF (Negative) 04/07/20 17:25 Urine Casts Negative LPF (Negative) 04/07/20 17:25 Urine Mucus Negative (Negative) 04/07/20 17:25 Urine Other Negative (Negative) 04/07/20 17:25 Ur Culture Indicated? No 04/07/20 17:25 Urine Glucose Negative mg/dL (Negative) 04/07/20 17:25 Salicylates < 2.8 mg/dL (2.8-20.0) 04/07/20 16:10 Urine Opiates Screen Negative (Negative) 04/07/20 17:25 Urine Methadone Screen Negative (Negative) 06/07/20 17:25 Acetaminophen < 2 ug/mL (10-30) 04/07/20 16:10 Ur Barbiturates Screen Negative (Negative) 04/07/20 17:25 Lamotrigine 12.8 mcg/mL (2.5 - 15.0) 04/07/20 16:20 Ur Tricyclics Screen Negative (Negative) 04/07/20 17:25 Ur Amphetamines Screen Negative (Negative) 04/07/20 17:25 U Benzodiazepines Scrn Positive (Negative) A 04/07/20 17:25 Urine Cocaine Screen Negative (Negative) 04/07/20 17:25 Ur THC Screen Negative (Negative) 04/07/20 17:25 Ethyl Alcohol < 3.0 mg/dL (<3) 04/07/20 16:10 COVID-19 PCR Negative (Negative) 04/07/20 20:05 Nasopharyn COVID-19 PCR Not Applicable 04/07/20 20:05 Ref Test [facility] 04/07/20 20:05
[2020-04-12] MEDS: Digoxin 0.125 MG TAB PO (07:57)
[2020-04-12] MEDS: lamoTRIgine 100 MG TAB PO ×2 (07:57→19:33)
[2020-04-12] MEDS: Citalopram 20 MG TAB 40 MG PO (07:58)
[2020-04-12] MEDS: diazePAM 2 MG TAB PO ×2 (07:58→19:32)
[2020-04-12] MEDS: Clopidogrel 75 MG TAB PO (07:58)
[2020-04-12] MEDS: Docusate Sodium 100 MG CAP PO ×2 (07:59→19:32)
[2020-04-12] MEDS: Senna TAB 1 TAB PO ×2 (07:59→19:40)
[2020-04-12] MEDS: Acetaminophen 500 MG TAB 1000 MG PO ×2 (07:59→18:06)
[2020-04-12] MEDS: Gabapentin 300 MG CAP PO ×2 (07:59→19:33)
[2020-04-12] MEDS: Finasteride 5 MG TAB PO (07:59)
[2020-04-12] MEDS: Normal Saline Flush 10 ML SYR IVP ×2 (08:00→19:34)
[2020-04-12] MEDS: Apixaban 5 MG TAB PO ×2 (08:00→19:33)
[2020-04-12] MEDS: Pantoprazole 40 MG TABCR PO (08:00)
[2020-04-12] MEDS: Mometasone 220 MCG 14 DOSE INHALER 2 PUFF IH ×2 (08:21→19:31)
--- NOTE | 2020-04-12 09:40 | CHAPLAIN ---
Miguel was upset yesterday that people suggested he shouldn't be driving. He said his record has been clean for 10 years. He said he called the DMV and was told that a physician can not revoke someone's license, they can only make the recommendation. Miguel claims he knows when he is not well enough to drive so he doesn't put others at risk.
[2020-04-12 12:06] LABS: Anion Gap 10.1 mmol/L (3-11); BUN 21 mg/dL (7-18); CO2 22.9 mmol/L (21.0-32.0); CREATININE 1.08 mg/dL (0.70-1.30); Chloride 102 mmol/L (98-107); Glucose 130 mg/dL (74-106); Magnesium 1.7 mg/dL (1.8-2.4); Potassium 3.5 mmol/L (3.5-5.1); Sodium 135 mmol/L (136-145)
[2020-04-12 12:08] LABS: Troponin I < 0.05 ng/mL (<0.06)
[2020-04-12 12:20] LABS: Digoxin 0.24 ng/mL (0.90-2.00)
--- NOTE | 2020-04-12 13:55 | PDOC.CMPRO ---
- If Service Date Differs Date of service: 04/12/20 Time of Service: 13:55 Care Management Progress Note S/O: Miguel was sitting up in bed when CM met with him. He was pleasant and engaged readily in conversation. He continues to assert that he would like to go to rehab. He understands that his heart is going fast and it may be a bit before he is able to be discharged. A: Miguel is a 64 year old male with a history of post traumatic epilepsy, admitted with hypotension, and encephalopathy. P: Miguel will be discharged when medically ready. CM has faxed a referral to [facility] which he agrees to at this time. A bed offer was received, pending updated Covid testing. LTM application pending. If Miguel returns home he will have resumption of home health nursing and he would like to return to adult day if possible, CM will follow up with Adult day services after reviewing plan with community reinvestment act officer to determine barriers. Transportation to be determined by disposition.
--- NOTE | 2020-04-12 14:27 | CHAPLAIN ---
Miguel seemed tired today when we first began talking, then became more animated later. He said he's decided to give up, and that his legs hurt. Then later in the conversation he talked about wanting to go back to his [facility] ([facility], [facility]) where he knows many people. He has been keeping in touch with his son Marciano, his God daughter Ashley, and his friend Iliana.
--- NOTE | 2020-04-12 14:49 | PTTR_ITS ---
Date of service: 04/12/20 Time of Service: 14:29 PT Notes Visit Reasons: HYPOTENSION,ENCEPHALOPATHY Inpatient Physical Therapy Treatment Note [facility] Date: 04/12/2020 PRECAUTIONS: Fall. Standard. Activity as tolerated. Left AFO and left knee brace on when out of bed. SUBJECTIVE: Patient states that he did not move and get out of bed a lot today as his left knee has been hurting him. He does say though that he is willing to do what he needs to do with PT today. He is agreeable to going to a residential facility once medically cleared to do so. OBJECTIVE: General observation: Hinged brace left knee and ankle-foot orthosis on the left foot and ankle. Telemetry monitoring in place. Pain report: 01/08 in the left knee BED MOBILITY/TRANSFERS Supine to sit: Supervision Sit to supine: Supervision Sit-stand: Supervision with minimal verbal cueing for right hand placement, requires use of front wheeled walker Stand-sit: Supervision with minimal verbal cueing for right hand placement, requires use of front wheeled walker GAIT Assistive Device: FWW Weight bearing: WBAT on L LE Assist: CGA Distance: 260 feet Deviation: Left knee stable with no episodes of giving out today. Circumducted gait on the left side. Foot drag minimal today and only towards the end of ambulation due to fatigue. Wheelchair follow provided. THERA EX: Deferred exercises as patient's HR went up to 130 bpm at the end of ambulation activity and could not tolerate continuing with any other activity due to fatigue. ASSESSMENT/PLAN: New diagnosis of atrial flutter from ECG testing yesterday with EF of 35%. Continue with activity as tolerated with close monitoring of HR. Left knee brace continues to provide stability and pain relief for patient during mobility ADL performance. Anticipate orthotic consult to be initiated here or in the SNF once placed. Discharge recommendations: Patient will benefit from residential facility placement for continued skilled physical therapy services in order to progress mobility level, strength, and balance in preparation for a safe discharge to home. TREATMENT CODE/TIME: 49469 x 31 minutes beginning at 14:49 PM.
--- NOTE | 2020-04-12 17:34 | PGE_ITS ---
Date of Service Date of service: 04/12/20 Time of Service: 17:35 Assessment and Plan Assessment and plan (1) Fever of unknown origin: Status: Acute Assessment and plan: Check COVID-19, CXR, UA, blood cultures. (2) Chest pain: Status: Acute Assessment and plan: EKG nonischemic, but does show rapid Afluter. CP now resolved with nitroglycerin. Continue to monitor on tele, trend troponins. Unfortunately, the patient is unlikely to tolerate a long acting nitrate due to his lower BP's. (3) Atrial flutter by electrocardiography: Status: Acute Assessment and plan: Rate still rapid, difficult to control given the borderline low BPs. Was able to get 2 doses of cardizem 30 mg. On PO digoxin. Continue cardizem with holding parameters and digoxin. Ultimately, will need to have ablation vs cardioversion, but will need to have document 30 day compliance with eliquis which we hope will happen if the patient goes to health and rehab. His heart rate is not expected to be normal on discharge. (4) Suicidal ideation: Status: Resolved Assessment and plan: Not endorsing this today. Mental health to see the patient when medically cleared. (5) Acute confusion: Status: Resolved Assessment and plan: Likely at his baseline. At this time, the most appropriate disposition would be SNF. Otherwise, would benefit from 24 hour care at home with medication supervision. THE PATIENT MUST NOT DRIVE. (6) Hypotension: Status: Resolved Assessment and plan: EF 35% on echo. Holding his normal antihypertensives in favor of cardizem at this time. (7) Urine retention: Status: Acute Assessment and plan: Did not tolerate flomax. Started on proscar. However, having BM's, so there is hope that he will pass the voiding trial within the next 24 hours - per urology. Continue proscar. (8) Cerebrovascular accident (CVA) with left hemiparesis: Status: Chronic Assessment and plan: H/o. CT head negative. Continue plavix, statin. (9) Pulmonary embolism: Status: Chronic Assessment and plan: Recurrent event ruled out. Continue eliquis (10) Chronic systolic (congestive) heart failure: Status: Chronic Assessment and plan: EF 35%. continue to monitor on tele. Dehydrated when presented, appears euvolemic at this time. Holding diuresis. Will need nonurgent (outpatient) stress test. (11) Discharge planning issues: Status: Acute Assessment and plan: Full code. Will benefit from SNF on discharge. Palliative care consulted. Mental health consulted. Subjective Subjective Interval history since last seen: Mr Pérez reports chest pain when I woke him up. He also feels dizzy, having shortness of breath, and nausea. Prior to me waking him up, he was deeply asleep. Chest pain resolved with 1 dose of nitroglycerin. EKG showed rapid Aflutter with HR of 140 - HR now down to 110's. In general, his heart rates remain difficult to control, in 120-130's. Nursing found him to be febrile to 39.1. Septic workup is in process as is a repeat COVID-19 test. He was given a bed offer from [facility]. Exam Narrative Exam Narrative: General: Somnolent middle-aged male, initially asleep, easily arousable, A&Ox2, but does look tired/not himself. HEENT: EOMI, MMM Heart: RRR, tachycardic, no m/r/g Lungs: CTAB Abdomen: soft, nontender, nondistended Extremities: trace edema at B ankles Objective Objective Clinical Data: Abnormal lab results 04/12/20 04/12/20 Range/Units 11:24 11:24 Sodium 135 L (136-145) mmol/L BUN 21 H D (7-18) mg/dL Glucose 130 H (74-106) mg/dL Magnesium 1.7 L (1.8-2.4) mg/dL Digoxin 0.24 L (0.90-2.00) ng/mL Vital Signs Temperature 37.1 C 04/12/20 16:40 Temperature Source Tympanic 04/12/20 16:40 Pulse 131 H 04/12/20 16:40 Pulse Rhythm Irregular 04/12/20 07:25 Pulse 110 H 04/07/20 20:10 Respiratory Rate 18 04/12/20 16:40 Respiratory Effort Non-Labored 04/12/20 07:25 Respiratory Depth Normal 04/12/20 07:25 Respiratory Pattern Normal 04/12/20 07:25 Blood Pressure 116/80 04/12/20 16:40 Blood Pressure Mean 78 04/07/20 20:53 Blood Pressure Position Supine 04/07/20 16:08 Pulse Oximetry 99 04/12/20 16:40 Oxygen Delivery Method Room Air 04/12/20 16:40 Oxygen Flow Rate 0 04/12/20 16:40 Pain Level 0 04/12/20 16:40 Comment 04/12/20 13:31 Intake & Output 04/11/20 04/12/20 04/12/20 23:59 11:59 23:59 Intake Total 490 / 1430 340 / 640 300 / 640 Output Total 550 / 800 475 / 475 Balance -60 / 630 -135 / 165 300 / 165 Weight 60.4 kg Intake: IV Oral 480 / 1420 340 / 630 290 / 630 Output: Urine 550 / 800 475 / 475 Other: Urine Color Light [place] Light [place] Pale [place] Yellow Urine Appearance Clear Hematuria Clear Urine Odor Normal Comment Askew catheter discontinued and briefs applied First void on toilet since Askew discontinuation. Stool Size Small Stool Characteristics Formed Laboratory Results WBC 5.50 k/cumm (4.4-10.8) 04/09/20 06:25 RBC 4.46 m/cumm (4.50-6.00) L 04/09/20 06:25 Hgb 12.8 g/dL (13.5-17.5) L 04/09/20 06:25 Hct 40.3 % (40.0-50.0) 04/09/20 06:25 MCV 90.4 fL (80-95) 04/09/20 06:25 MCH 28.7 pg (27.0-33.0) 04/09/20 06:25 MCHC 31.8 g/dL (32.0-36.0) L 04/09/20 06:25 RDW 14.0 % (11.8-14.1) 04/09/20 06:25 Plt Count 126 x1000/uL (130-400) L 04/09/20 06:25 MPV 10.1 fL (8.0-11.0) 04/09/20 06:25 Immature Gran % 0.2 % 04/09/20 06:25 Neutrophils % 64.0 04/09/20 06:25 Lymphocytes % 21.8 04/09/20 06:25 Monocytes % 9.5 04/09/20 06:25 Eosinophils % 4.0 04/09/20 06:25 Basophils % 0.5 04/09/20 06:25 Absolute Neutrophils 3.52 k/cumm (1.2-6.7) 04/09/20 06:25 Absolute Lymphocytes 1.20 k/cumm (1.2-3.4) 04/09/20 06:25 Absolute Monocytes 0.52 k/cumm (0.11-0.7) 04/09/20 06:25 Absolute Eosinophils 0.22 k/cumm (0.0-0.7) 04/09/20 06:25 Absolute Basophils 0.03 k/cumm (0.0-0.2) 04/09/20 06:25 PT 11.0 sec (9.3-11.0) 04/07/20 16:10 INR 1.1 (0.9-1.1) 04/07/20 16:10 APTT 27.7 sec (21.0-31.4) 04/07/20 16:10 Sodium 135 mmol/L (136-145) L 04/12/20 11:24 Potassium 3.5 mmol/L (3.5-5.1) 04/12/20 11:24 Chloride 102 mmol/L (98-107) 04/12/20 11:24 Carbon Dioxide 22.9 mmol/L (21.0-32.0) 04/12/20 11:24 Anion Gap 10.1 mmol/L (3-11) 04/12/20 11:24 BUN 21 mg/dL (7-18) H D 04/12/20 11:24 Creatinine 1.08 mg/dL (0.70-1.30) 04/12/20 11:24 Estimated GFR/1.73 m2 >= 60.00 (mL/min/1.73m2) 04/12/20 11:24 Glucose 130 mg/dL (74-106) H 04/12/20 11:24 Lactate 1.0 mmol/L (0.6-1.4) 04/08/20 13:25 Calcium 9.0 mg/dL (8.5-10.1) 04/12/20 11:24 Magnesium 1.7 mg/dL (1.8-2.4) L 04/12/20 11:24 Total Bilirubin 0.4 mg/dL (0.2-1.0) 04/07/20 16:10 AST 16 U/L (15-37) 04/07/20 16:10 ALT 19 U/L (16-63) 04/07/20 16:10 Alkaline Phosphatase 168 U/L (46-116) H 04/07/20 16:10 Troponin I < 0.05 ng/mL (<0.06) 04/12/20 11:24 Troponin I Cancelled 04/12/20 11:24 C-Reactive Protein 0.55 mg/dL (0.0-0.3) H 04/08/20 13:25 NT-Pro-B Natriuret Pep 1708 pg/mL (<300) H 04/08/20 13:25 Total Protein 7.1 g/dL (6.4-8.2) 04/07/20 16:10 Albumin 4.1 g/dL (3.4-5.0) 04/07/20 16:10 Lipase 132 U/L (73-393) 04/07/20 16:10 PSA Screen 3.8 ng/mL (0.0-4.5) 04/09/20 06:25 Procalcitonin < 0.1 ng/mL 04/08/20 13:25 Urine Color Yellow (Yellow) 04/07/20 17:25 Urine Clarity Clear (Clear) 04/07/20 17:25 Urine pH 5.5 (5-8) 04/07/20 17:25 Ur Specific [place] 1.015 (1.005-1.025) 04/07/20 17:25 Urine Protein Negative mg/dL (Negative) 04/07/20 17:25 Urine Ketones Negative mg/dL (Negative) 04/07/20 17:25 Urine Blood Moderate (Negative) H 04/07/20 17:25 Urine Nitrite Negative (Negative) 04/07/20 17:25 Urine Bilirubin Negative (Negative) 04/07/20 17:25 Urine Urobilinogen 0.2 EU/dL (Up TO 0.2) 04/07/20 17:25 Ur Leukocyte Esterase Negative (Negative) 04/07/20 17:25 Urine RBC 10-20 HPF (0-2) H 04/07/20 17:25 Urine WBC 0-2 HPF (0-5) 04/07/20 17:25 Ur Epithelial Cells Negative HPF (Negative) 04/07/20 17:25 Urine Crystals Negative HPF (Negative) 04/07/20 17:25 Urine Bacteria Negative HPF (Negative) 04/07/20 17:25 Urine Casts Negative LPF (Negative) 04/07/20 17:25 Urine Mucus Negative (Negative) 04/07/20 17:25 Urine Other Negative (Negative) 04/07/20 17:25 Ur Culture Indicated? No 04/07/20 17:25 Urine Glucose Negative mg/dL (Negative) 04/07/20 17:25 Digoxin 0.24 ng/mL (0.90-2.00) L 04/12/20 11:24 Salicylates < 2.8 mg/dL (2.8-20.0) 04/07/20 16:10 Urine Opiates Screen Negative (Negative) 04/07/20 17:25 Urine Methadone Screen Negative (Negative) 04/07/20 17:25 Acetaminophen < 2 ug/mL (10-30) 04/07/20 16:10 Ur Barbiturates Screen Negative (Negative) 04/07/20 17:25 Lamotrigine 12.8 mcg/mL (2.5 - 15.0) 04/07/20 16:20 Ur Tricyclics Screen Negative (Negative) 04/07/20 17:25 Ur Amphetamines Screen Negative (Negative) 04/07/20 17:25 U Benzodiazepines Scrn Positive (Negative) A 04/07/20 17:25 Urine Cocaine Screen Negative (Negative) 04/07/20 17:25 Ur THC Screen Negative (Negative) 04/07/20 17:25 Ethyl Alcohol < 3.0 mg/dL (<3) 04/07/20 16:10 COVID-19 PCR Negative (Negative) 04/07/20 20:05 Nasopharyn COVID-19 PCR Not Applicable 04/07/20 20:05 Ref Test [facility] [place] [facility] 04/07/20 20:05
--- NOTE | 2020-04-12 18:43 | DI.VRAD_ITS ---
PROCEDURE INFORMATION: Exam: XR Chest, 1 View Exam date and time: 04/12/2020 6:18 PM Age: 64 years old Clinical indication: Screening exam; Other screening; Patient HX: [place] TECHNIQUE: Imaging protocol: XR of the chest Views: 1 view. Other technique: Portable exam. COMPARISON: CR XR CHEST 2V PA LATERAL 02/19/2020 1:55 PM FINDINGS: Lungs: The lungs remain slightly hyperaerated and hyperlucent. No infiltrates or effusions noted. Pleural space: Unremarkable. No pleural effusion. No pneumothorax. Heart/Mediastinum: Mild cardiomegaly is unchanged. Vasculature: Mild aortic ectasia. Bones/joints: Right upper rib deformity again seen, presumed old fracture. IMPRESSION: Mild COPD. No acute abnormality evident in the chest. COMMENTS: Preliminary interpretation is based on receipt of 1 image(s). A final report will be issued subsequently. Dictated and Authenticated by: Nikki Siegel MD. Ordering:EUSEBIO Barry MD
[2020-04-12 18:51] LABS: HCT 42.1 % (40.0-50.0); HGB 13.8 g/dL (13.5-17.5); Mean Corp. HGB Concentration 32.8 g/dL (32.0-36.0); Mean Corpuscular Hemoglobin 28.8 pg (27.0-33.0); Mean Corpuscular Volume 87.7 fL (80-95); RBC Distribution Width 14.2 % (11.8-14.1); White Blood Cell Count 4.62 k/cumm (4.4-10.8)
[2020-04-12 19:10] LABS: Platelet Count 77 x1000/uL (130-400)
[2020-04-12 19:13] LABS: Troponin I < 0.05 ng/mL (<0.06)
[2020-04-12] MEDS: Atorvastatin 40 MG TAB PO (19:33)
[2020-04-12] MEDS: MAGNESIUM SULFATE 2 GM/50 ML BAG IVPB (19:50)
[2020-04-12] MEDS: cefTRIAXone 1 GM/50 ML BAG IVPB (21:43)
[2020-04-12] MEDS: VANCOMYCIN 1,000 MG in Normal Saline 250 ML 166.6666 MG IVPB (22:01)
[2020-04-12 22:15] LABS: Troponin I < 0.05 ng/mL (<0.06)
[2020-04-13] VITALS (9 sets, daily range): BP systolic 80–108; BP diastolic 60–78; PULSE 110–139; RESP 16–20; TEMP 35.7–37.3; O2SAT 95–100
[2020-04-13 00:13] LABS: Bilirubin Negative (Negative); Blood Large (Negative); Clarity Clear (Clear); Glucose Negative (Negative); Ketones Negative (Negative); Leukocyte Esterase Negative (Negative); Nitrite Negative (Negative); Urobilinogen 0.2 EU/dL (Up TO 0.2)
[2020-04-13 00:23] LABS: Epithelial Cells Negative HPF (Negative); RBC >50 HPF (0-2); WBC Negative HPF (0-5)
[2020-04-13 00:24] LABS: Bacteria Negative HPF (Negative); C & S Indicated? C&S Done As Ordered; Casts Negative LPF (Negative); Crystals Negative HPF (Negative); Mucus Negative (Negative); Other Cells Rare Renal (Negative)
[2020-04-13] MEDS: dilTIAZem 30 MG TAB PO ×2 (04:01→22:44)
[2020-04-13 07:15] LABS: Anion Gap 9.7 mmol/L (3-11); BUN 16 mg/dL (7-18); CO2 24.3 mmol/L (21.0-32.0); CREATININE 1.04 mg/dL (0.70-1.30); Calcium 8.4 mg/dL (8.5-10.1); Chloride 102 mmol/L (98-107); Glucose 100 mg/dL (74-106); Magnesium 1.9 mg/dL (1.8-2.4); Potassium 3.9 mmol/L (3.5-5.1); Sodium 136 mmol/L (136-145)
[2020-04-13] MEDS: Mometasone 220 MCG 14 DOSE INHALER 2 PUFF IH ×2 (08:51→20:09)
[2020-04-13] MEDS: Pantoprazole 40 MG TABCR PO (08:52)
[2020-04-13] MEDS: Digoxin 0.125 MG TAB PO (08:53)
[2020-04-13] MEDS: Finasteride 5 MG TAB PO (08:54)
[2020-04-13] MEDS: Apixaban 5 MG TAB PO ×2 (08:54→20:07)
[2020-04-13] MEDS: Gabapentin 300 MG CAP PO ×2 (08:54→20:07)
[2020-04-13] MEDS: lamoTRIgine 100 MG TAB PO ×2 (08:55→20:07)
[2020-04-13] MEDS: Clopidogrel 75 MG TAB PO (08:55)
[2020-04-13] MEDS: Senna TAB 1 TAB PO ×2 (08:55→20:07)
[2020-04-13] MEDS: Docusate Sodium 100 MG CAP PO ×2 (08:55→20:07)
[2020-04-13] MEDS: diazePAM 2 MG TAB PO ×2 (08:55→20:07)
[2020-04-13] MEDS: Citalopram 20 MG TAB 40 MG PO (09:16)
[2020-04-13] MEDS: Acetaminophen 500 MG TAB 1000 MG PO (09:29)
--- NOTE | 2020-04-13 09:35 | PT.INNT ---
Date of service: 04/13/20 Time of Service: 09:35 PT Notes Visit Reasons: HYPOTENSION,ENCEPHALOPATHY Hold on formal PT today. Patient transitioned to room 215 for COVID-19 testing. Will hold on PT until cleared. This was relayed to physical therapist by nursing.
[2020-04-13] MEDS: CEFEPIME 2 GM in Normal Saline 100 ML IVPB ×2 (10:38→17:22)
[2020-04-13] MEDS: Normal Saline Flush 10 ML SYR IVP ×2 (10:39→17:23)
[2020-04-13] MEDS: VANCOMYCIN 750 MG in Normal Saline 250 ML 166.6666 MG IVPB ×2 (10:45→17:22)
--- NOTE | 2020-04-13 12:55 | PGE_ITS ---
Date of Service Date of service: 04/13/20 Time of Service: 12:56 Assessment and Plan Assessment and plan (1) Fever of unknown origin: Status: Acute Assessment and plan: COVID-19 pending. CXR, UA, blood cultures done. Was started last night on ceftriaxone and vancomycin. Office showed only red cells, culture pending. He does have some respiratory symptoms, though x-ray did not show pneumonia I think his symptoms suggest this is most likely source of infection. His blood is growing gram-positive rods. This may be contaminant, but I switched him to cefepime and vancomycin to cover possible Pseudomonas until we have speciation. He does have some suprapubic tenderness and fullness that is likely related to some degree of urinary retention. If he develops more significant pain will consider CT of the abdomen pelvis. (2) Chest pain: Status: Acute Assessment and plan: EKG nonischemic, but does show rapid Afluter. Troponin yesterday negative. CP now resolved with nitroglycerin today. No current pain. Of note he was on long-acting prates which have been held due to low blood pressures. Continue to monitor on tele. (3) Atrial flutter by electrocardiography: Status: Acute Assessment and plan: Rate still rapid, difficult to control given the borderline low BPs. Was able to get 2 doses of cardizem 30 mg. On PO digoxin and will titrate dose. Continue cardizem with holding parameters and digoxin. Ultimately, will need to have ablation vs cardioversion, but will need to have document 30 day compliance with eliquis which we hope will happen if the patient goes to health and rehab. His heart rate is not expected to be normal on discharge. (4) Suicidal ideation: Status: Resolved Assessment and plan: Not endorsing this today. Mental health to see the patient when medically cleared, no change. (5) Acute confusion: Status: Resolved Assessment and plan: This appears to have resolved, and he seems to be at his baseline. At this time, the most appropriate disposition would be SNF. Otherwise, would benefit from 24 hour care at home with medication supervision. THE PATIENT MUST NOT DRIVE. (6) Hypotension: Status: Resolved Assessment and plan: EF 35% on echo. Holding his normal antihypertensives in favor of cardizem at this time. (7) Urine retention: Status: Acute Assessment and plan: Did not tolerate flomax. Started on finasteride, but months to work. He was able to tolerate voiding trial yesterday. I am concerned with some retention today based on his exam, will get another bladder scan. (8) Cerebrovascular accident (CVA) with left hemiparesis: Status: Chronic Assessment and plan: H/o. CT head negative. Continue plavix, statin. (9) Pulmonary embolism: Status: Chronic Assessment and plan: Recurrent event ruled out. Continue eliquis (10) Chronic systolic (congestive) heart failure: Status: Chronic Assessment and plan: EF 35%. continue to monitor on tele. Dehydrated when presented, appears euvolemic at this time. He is not on typical therapy due to his hypotension. Holding diuresis. Will need nonurgent (outpatient) stress test. (11) Discharge planning issues: Status: Acute Assessment and plan: Full code. Will benefit from SNF on discharge. Palliative care consulted. Mental health consulted. (12) Thrombocytopenia: Status: Acute Assessment and plan: This has developed since admission, though he has had low platelets in the past going back to 2010. Is unlikely acidosis. He is never had dangerously low platelets. He is not currently on heparin. I do not think this is related to an acute infection such as COVID or sepsis related disseminated coagulopathy, but will monitor. Subjective Subjective Patient reports: bowel movement and fever; denies blood in stool Interval history since last seen: 24-hour: Fevers noted, repeat COVID 19 swab, chest x-ray, urinalysis, and blood cultures sent. Patient states he felt sweaty and chilled last night, but not feverish currently. States he has more cough sputum production since yesterday. He also feels less hungry, though he is not vomited and is not frankly nauseous. He denies any new pain. He has chronic back and leg pain. He has been able to urinate yellow urine, no dysuria. Has not noted any sores on the skin. He has had some bleeding from spots on his arm, but no significant bleeding. No blood in stool yesterday. Denies current chest pain or palpitations or dizziness. Exam Narrative Exam Narrative: General: Alert, appropriately interactive, oriented to self and place but could not remember the name of the president. HEENT: EOMI, MMM Heart: RRR, tachycardic, no m/r/g Lungs: CTAB, normal effort. Abdomen: soft, active bowel sounds, nondistended. Some fullness and mild tenderness in the suprapubic region Extremities: No cyanosis, clubbing, or edema. No joint redness or swelling Skin: No rashes or open wounds noted Objective Objective Clinical Data: Abnormal lab results 04/12/20 04/13/20 04/13/20 Range/Units 18:39 00:00 06:30 RDW 14.2 H (11.8-14.1) % Plt Count 77 L (130-400) x1000/uL Calcium 8.4 L (8.5-10.1) mg/dL Urine Blood Large H (Negative) Urine RBC >50 H (0-2) HPF Vital Signs Temperature 36.3 C L 04/13/20 11:00 Temperature Source Tympanic 04/13/20 11:00 Pulse 110 H 04/13/20 11:00 Pulse Rhythm Irregular 04/13/20 09:03 Pulse 110 H 04/07/20 20:10 Respiratory Rate 18 04/13/20 11:00 Respiratory Effort Non-Labored 04/13/20 09:03 Respiratory Depth Normal 04/13/20 09:03 Respiratory Pattern Normal 04/13/20 09:03 Blood Pressure 88/66 L 04/13/20 11:00 Blood Pressure Mean 78 04/07/20 20:53 Blood Pressure Position Supine 04/07/20 16:08 Pulse Oximetry 97 04/13/20 11:00 Oxygen Delivery Method Room Air 04/13/20 11:00 Oxygen Flow Rate 0 04/13/20 11:00 Pain Level 4 04/13/20 11:00 Comment 04/13/20 03:54 Intake & Output 04/12/20 04/13/20 04/13/20 23:59 11:59 23:59 Intake Total 500 / 840 Output Total 750 / 1225 750 / 750 Balance -250 / -385 -750 / -750 Weight 58.3 kg Intake: IV Oral 490 / 830 Output: Urine 750 / 1225 750 / 750 Other: Urine Color Light Galilea Light Galilea Urine Appearance Clear Cloudy Urine Odor Normal None Comment First void on toilet since Askew discontinuation. Stool Size Moderate Stool Characteristics Formed Voiding Methods Urinal Urinal Laboratory Results WBC 4.62 k/cumm (4.4-10.8) 04/12/20 18:39 RBC 4.80 m/cumm (4.50-6.00) 04/12/20 18:39 Hgb 13.8 g/dL (13.5-17.5) 04/12/20 18:39 Hct 42.1 % (40.0-50.0) 04/12/20 18:39 MCV 87.7 fL (80-95) 04/12/20 18:39 MCH 28.8 pg (27.0-33.0) 04/12/20 18:39 MCHC 32.8 g/dL (32.0-36.0) 04/12/20 18:39 RDW 14.2 % (11.8-14.1) H 04/12/20 18:39 Plt Count 77 x1000/uL (130-400) L 04/12/20 18:39 MPV 10.0 fL (8.0-11.0) 04/12/20 18:39 Immature Gran % 0.2 % 04/09/20 06:25 Neutrophils % 64.0 04/09/20 06:25 Lymphocytes % 21.8 04/09/20 06:25 Monocytes % 9.5 04/09/20 06:25 Eosinophils % 4.0 04/09/20 06:25 Basophils % 0.5 04/09/20 06:25 Absolute Neutrophils 3.52 k/cumm (1.2-6.7) 04/09/20 06:25 Absolute Lymphocytes 1.20 k/cumm (1.2-3.4) 04/09/20 06:25 Absolute Monocytes 0.52 k/cumm (0.11-0.7) 04/09/20 06:25 Absolute Eosinophils 0.22 k/cumm (0.0-0.7) 04/09/20 06:25 Absolute Basophils 0.03 k/cumm (0.0-0.2) 04/09/20 06:25 PT 11.0 sec (9.3-11.0) 04/07/20 16:10 INR 1.1 (0.9-1.1) 04/07/20 16:10 APTT 27.7 sec (21.0-31.4) 04/07/20 16:10 Sodium 136 mmol/L (136-145) 04/13/20 06:30 Potassium 3.9 mmol/L (3.5-5.1) 04/13/20 06:30 Chloride 102 mmol/L (98-107) 04/13/20 06:30 Carbon Dioxide 24.3 mmol/L (21.0-32.0) 04/13/20 06:30 Anion Gap 9.7 mmol/L (3-11) 04/13/20 06:30 BUN 16 mg/dL (7-18) 04/13/20 06:30 Creatinine 1.04 mg/dL (0.70-1.30) 04/13/20 06:30 Estimated GFR/1.73 m2 >= 60.00 (mL/min/1.73m2) 04/13/20 06:30 Glucose 100 mg/dL (74-106) 04/13/20 06:30 Lactate 1.0 mmol/L (0.6-1.4) 04/08/20 13:25 Calcium 8.4 mg/dL (8.5-10.1) L 04/13/20 06:30 Magnesium 1.9 mg/dL (1.8-2.4) 04/13/20 06:30 Total Bilirubin 0.4 mg/dL (0.2-1.0) 04/07/20 16:10 AST 16 U/L (15-37) 04/07/20 16:10 ALT 19 U/L (16-63) 04/07/20 16:10 Alkaline Phosphatase 168 U/L (46-116) H 04/07/20 16:10 Troponin I < 0.05 ng/mL (<0.06) 04/12/20 21:43 C-Reactive Protein 0.55 mg/dL (0.0-0.3) H 04/08/20 13:25 NT-Pro-B Natriuret Pep 1708 pg/mL (<300) H 04/08/20 13:25 Total Protein 7.1 g/dL (6.4-8.2) 04/07/20 16:10 Albumin 4.1 g/dL (3.4-5.0) 04/07/20 16:10 Lipase 132 U/L (73-393) 04/07/20 16:10 PSA Screen 3.8 ng/mL (0.0-4.5) 04/09/20 06:25 Procalcitonin < 0.1 ng/mL 04/08/20 13:25 Urine Color Yellow (Yellow) 04/13/20 00:00 Urine Clarity Clear (Clear) 04/13/20 00:00 Urine pH 6.0 (5-8) 04/13/20 00:00 Ur Specific [place] 1.010 (1.005-1.025) 04/13/20 00:00 Urine Protein Negative mg/dL (Negative) 04/13/20 00:00 Urine Ketones Negative mg/dL (Negative) 04/13/20 00:00 Urine Blood Large (Negative) H 04/13/20 00:00 Urine Nitrite Negative (Negative) 04/13/20 00:00 Urine Bilirubin Negative (Negative) 04/13/20 00:00 Urine Urobilinogen 0.2 EU/dL (Up TO 0.2) 04/13/20 00:00 Ur Leukocyte Esterase Negative (Negative) 04/13/20 00:00 Urine RBC >50 HPF (0-2) H 04/13/20 00:00 Urine WBC Negative HPF (0-5) 04/13/20 00:00 Ur Epithelial Cells Negative HPF (Negative) 04/13/20 00:00 Urine Crystals Negative HPF (Negative) 04/13/20 00:00 Urine Bacteria Negative HPF (Negative) 04/13/20 00:00 Urine Casts Negative LPF (Negative) 04/13/20 00:00 Urine Mucus Negative (Negative) 04/13/20 00:00 Urine Other Rare renal (Negative) 04/13/20 00:00 Ur Culture Indicated? C&s done as ordered 04/13/20 00:00 Urine Glucose Negative mg/dL (Negative) 04/13/20 00:00 Digoxin 0.24 ng/mL (0.90-2.00) L 04/12/20 11:24 Salicylates < 2.8 mg/dL (2.8-20.0) 04/07/20 16:10 Urine Opiates Screen Negative (Negative) 04/07/20 17:25 Urine Methadone Screen Negative (Negative) 04/07/20 17:25 Acetaminophen < 2 ug/mL (10-30) 04/07/20 16:10 Ur Barbiturates Screen Negative (Negative) 04/07/20 17:25 Lamotrigine 12.8 mcg/mL (2.5 - 15.0) 04/07/20 16:20 Ur Tricyclics Screen Negative (Negative) 04/07/20 17:25 Ur Amphetamines Screen Negative (Negative) 04/07/20 17:25 U Benzodiazepines Scrn Positive (Negative) A 04/07/20 17:25 Urine Cocaine Screen Negative (Negative) 04/07/20 17:25 Ur THC Screen Negative (Negative) 04/07/20 17:25 Ethyl Alcohol < 3.0 mg/dL (<3) 04/07/20 16:10 COVID-19 PCR Negative (Negative) 04/07/20 20:05 Nasopharyn COVID-19 PCR Not Applicable 04/07/20 20:05 Ref Test Perform Site [facility] lab 04/07/20 20:05
[2020-04-13 14:20] LABS: COVID-19 RT-PCR UVMMC Result Negative (Negative)
--- NOTE | 2020-04-13 16:29 | PDOC.CMPRO ---
- If Service Date Differs Date of service: 04/13/20 Time of Service: 16:30 Care Management Progress Note S/O: Miguel was reviewed at interdisciplinary rounds. Per report, Miguel has a new fever that developed yesterday, of unknown origin. Miguel had a repeat Covid 19 test yesterday, with results pending. He will need a negative Covid result in order to transition to [facility], where he has been accepted for disposition Wednesday, if medically cleared. CM will continue to follow. A: Miguel is a 64 year old male with a history of post traumatic epilepsy, admitted with hypotension, and encephalopathy. P: Miguel will be discharged when medically ready. CM has faxed a referral to [facility] which he agrees to at this time. A bed offer was received, pending updated Covid testing. LTM application pending. If Miguel returns home he will have resumption of home health nursing and he would like to return to adult day if possible, CM will follow up with Adult day services after reviewing plan with community health specialist to determine barriers. Transportation to be determined by disposition.
[2020-04-13] MEDS: Atorvastatin 40 MG TAB PO (20:07)
[2020-04-13] MEDS: fentaNYL 75 MCG PATCH TD (21:47)
[2020-04-14] VITALS (16 sets, daily range): BP systolic 90–113; BP diastolic 60–80; PULSE 65–142; RESP 17–19; TEMP 36.2–37.1; O2SAT 92–99
[2020-04-14] MEDS: Acetaminophen 500 MG TAB 1000 MG PO (00:45)
[2020-04-14] MEDS: Normal Saline Flush 10 ML SYR IVP ×3 (00:46→09:57)
[2020-04-14] MEDS: Metoprolol 5 MG/5 ML VIAL 2.5 MG IVP (00:52)
[2020-04-14] MEDS: CEFEPIME 2 GM in Normal Saline 100 ML IVPB ×2 (02:54→09:56)
[2020-04-14] MEDS: VANCOMYCIN 750 MG in Normal Saline 250 ML 167 MG IVPB ×2 (03:28→11:09)
[2020-04-14] MEDS: dilTIAZem 30 MG TAB PO ×3 (04:31→19:28)
[2020-04-14 07:21] LABS: Absolute Basophil Count 0.02 k/cumm (0.0-0.2); Absolute Eosinophil Count 0.18 k/cumm (0.0-0.7); Absolute Lymphocyte Count 0.89 k/cumm (1.2-3.4); Absolute Monocyte Count 0.52 k/cumm (0.11-0.7); Absolute Neutrophil Count 1.69 k/cumm (1.2-6.7); Basophils % 0.6; Eosinophils % 5.5; HCT 39.3 % (40.0-50.0); HGB 12.9 g/dL (13.5-17.5); Mean Corp. HGB Concentration 32.8 g/dL (32.0-36.0); Mean Corpuscular Hemoglobin 28.9 pg (27.0-33.0); Mean Corpuscular Volume 88.1 fL (80-95); Mean Platelet Volume 10.2 fL (8.0-11.0); Monocytes % 15.8; Neutrophils % 51.1; RBC 4.46 m/cumm (4.50-6.00); RBC Distribution Width 14.1 % (11.8-14.1)
[2020-04-14 07:22] LABS: Anion Gap 7.9 mmol/L (3-11); BUN 12 mg/dL (7-18); CO2 24.1 mmol/L (21.0-32.0); CREATININE 1.01 mg/dL (0.70-1.30); Calcium 8.4 mg/dL (8.5-10.1); Chloride 107 mmol/L (98-107); Glucose 114 mg/dL (74-106); Magnesium 1.8 mg/dL (1.8-2.4); Potassium 4.4 mmol/L (3.5-5.1); Sodium 139 mmol/L (136-145)
[2020-04-14] MEDS: Pantoprazole 40 MG TABCR PO (07:33)
[2020-04-14 07:50] LABS: Diff Comment Diff Reviewed; Platelet Count 68 x1000/uL (130-400); RBC Morphology Normal
[2020-04-14] MEDS: Docusate Sodium 100 MG CAP PO ×2 (08:11→19:27)
[2020-04-14] MEDS: Citalopram 20 MG TAB 40 MG PO (08:11)
[2020-04-14] MEDS: Clopidogrel 75 MG TAB PO (08:11)
[2020-04-14] MEDS: diazePAM 2 MG TAB PO ×2 (08:11→19:28)
[2020-04-14] MEDS: Digoxin 0.125 MG TAB PO ×2 (08:11→19:27)
[2020-04-14] MEDS: Senna TAB 1 TAB PO ×2 (08:11→19:27)
[2020-04-14] MEDS: lamoTRIgine 100 MG TAB PO ×2 (08:11→19:49)
[2020-04-14] MEDS: Finasteride 5 MG TAB PO (08:11)
[2020-04-14] MEDS: Apixaban 5 MG TAB PO ×2 (08:11→19:28)
[2020-04-14] MEDS: Gabapentin 300 MG CAP PO ×2 (08:12→19:28)
[2020-04-14] MEDS: Mometasone 220 MCG 14 DOSE INHALER 2 PUFF IH ×2 (08:16→19:25)
[2020-04-14 09:33] LABS: Vancomycin, Trough 19.1 ug/mL (10.0-20.0)
--- NOTE | 2020-04-14 10:34 | PDOC.CMPRO ---
- If Service Date Differs Date of service: 04/14/20 Time of Service: 10:34 Care Management Progress Note S/O: Miguel was reviewed at interdisciplinary rounds. Per report, Miguel has had a fever and chest pain overnight. He is being monitored on tele currently, and he is on abx for possible infection, awaiting blood cultures. He has been offered a bed at [facility] for tomorrow. MD will determine if he is ready for discharge at that time. CM will continue to follow. A: Miguel is a 64 year old male with a history of post traumatic epilepsy, admitted with hypotension, and encephalopathy. P: Miguel will be discharged when medically ready. CM has faxed a referral to [facility] which he agrees to at this time. A bed offer was received, pending updated Covid testing. LTM application pending. 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 Transportation to be determined by disposition.
[2020-04-14] MEDS: cefTRIAXone 1 GM/50 ML BAG IVPB (12:56)
[2020-04-14] MEDS: DOXYCYCLINE 100 MG in Normal Saline 100 ML IVPB (14:02)
--- NOTE | 2020-04-14 14:13 | W.PM.PROGNOT ---
Date of Service Date of service: 04/14/20 Time of Service: 12:13 Assessment and Plan Assessment and plan (1) Fever of unknown origin: Status: Acute Assessment and plan: COVID-19 negative CXR, UA, blood cultures done. Was started 04/12/2020 on ceftriaxone and vancomycin. Urine culture showing no growth and blood cultures growing only contaminant. He did have some respiratory symptoms, though x-ray did not show pneumonia, symptoms correspond to onset fever. Given this, I will narrow the antibiotics to ceftriaxone and doxycycline to cover mild pneumonia. No longer with suprapubic pain, I think the fullness yesterday was simply his distended bladder, which resolved with placement of the Askew. (2) Chest pain: Status: Acute Assessment and plan: EKG nonischemic, but does show rapid Afluter. Troponinsnegative and repetitive EKGs have not been revealing. CP improved with nitroglycerin. I think this is chronic angina that is manifesting more frequently due to the discontinuation of his long-acting nitrates. Unfortunately he cannot currently tolerate these due to low blood pressures. Continue to follow, nitroglycerin as needed. Continue to monitor on tele. (3) Atrial flutter by electrocardiography: Status: Acute Assessment and plan: Rate still rapid when I saw him earlier today, but has slowed based on current nursing notes. I did increase his digoxin to 250 mcg today. If his pulse stays low, I will stop the Cardizem and put him back on his isosorbide. Ultimately, plan is to have ablation vs cardioversion, but will need to have document 30 day compliance with eliquis which we hope will happen if the patient goes to health and rehab. (4) Suicidal ideation: Status: Resolved Assessment and plan: Not endorsing this today. Mental health to see the patient when medically cleared, no change. (5) Acute confusion: Status: Resolved Assessment and plan: This appears to have resolved, and he seems to be at his baseline. No change today. At this time, the most appropriate disposition would be SNF. Otherwise, would benefit from 24 hour care at home with medication supervision. THE PATIENT MUST NOT DRIVE. (6) Hypotension: Status: Resolved Assessment and plan: EF 35% on echo. Holding his normal antihypertensives in favor of cardizem at this time, but may reconsider. (7) Urine retention: Status: Acute Assessment and plan: Did not tolerate tamsulosin. Started on finasteride, but this medication takes months to work. He again has a Askew. We may need to reconsult urology. (8) Cerebrovascular accident (CVA) with left hemiparesis: Status: Chronic Assessment and plan: H/o. CT head negative. Continue plavix, statin. (9) Pulmonary embolism: Status: Chronic Assessment and plan: Recurrent event ruled out. Continue eliquis (10) Chronic systolic (congestive) heart failure: Status: Chronic Assessment and plan: EF 35%. continue to monitor on tele. Dehydrated when presented, appears euvolemic at this time. He is not on typical therapy due to his hypotension. Holding diuresis. Will need nonurgent (outpatient) stress test. (11) Discharge planning issues: Status: Acute Assessment and plan: Full code. Will benefit from SNF on discharge. Palliative care consulted. Mental health consulted. (12) Thrombocytopenia: Status: Acute Assessment and plan: This has developed since admission, though he has had low platelets in the past going back to 2010. This does not look like cirrhosis. COVID negative. Do not appear to be septic. He is never had dangerously low platelets. He is not currently on heparin. We will continue to monitor, as trend is still going down. Subjective Subjective Patient reports: no new complaints; denies nausea, vomiting and fever Interval history since last seen: 24-hour events: Patient another episode of chest pain overnight. Repeat EKGs showed no changes. Blood culture recorded as likely contaminant Askew catheter replaced after high post-void residual Patient states he is feeling a little better today. No longer getting fevers. His cough and sputum ahead have largely resolved since yesterday. He denies chest pain currently. He denies shortness of breath. He is eating, but not a lot. He states his memory is not great and forgets what day it is, but states he has been like this since his stroke. Exam Narrative Exam Narrative: General: Alert, appropriately interactive, oriented to self and place but could not day HEENT: Conjunctive are clear, pupils 3 mm in room light, active. Moist mucous membranes. Heart: RRR, tachycardic, no m/r/g Lungs: CTAB, normal effort. Abdomen: soft, active bowel sounds, nondistended. No tenderness. Extremities: No cyanosis, clubbing, or edema. No joint redness or swelling Skin: No rashes or open wounds noted Objective Objective Clinical Data: Abnormal lab results 04/14/20 04/14/20 Range/Units 06:30 06:30 WBC 3.30 L (4.4-10.8) k/cumm RBC 4.46 L (4.50-6.00) m/cumm Hgb 12.9 L (13.5-17.5) g/dL Hct 39.3 L (40.0-50.0) % Plt Count 68 L (130-400) x1000/uL Absolute Lymphocytes 0.89 L (1.2-3.4) k/cumm Glucose 114 H (74-106) mg/dL Calcium 8.4 L (8.5-10.1) mg/dL Vital Signs Temperature 36.7 C 04/14/20 11:13 Temperature Source Temporal Artery Scan 04/14/20 11:13 Pulse 66 04/14/20 11:13 Pulse Rhythm Irregular 04/14/20 08:39 Pulse 110 H 04/07/20 20:10 Respiratory Rate 19 04/14/20 11:13 Respiratory Effort Non-Labored 04/14/20 08:39 Respiratory Depth Normal 04/14/20 08:39 Respiratory Pattern Normal 04/14/20 08:39 Blood Pressure 98/64 L 04/14/20 11:13 Blood Pressure Mean 78 04/07/20 20:53 Blood Pressure Position Supine 04/07/20 16:08 Pulse Oximetry 98 04/14/20 11:13 Oxygen Delivery Method Room Air 04/14/20 11:13 Oxygen Flow Rate 0 04/14/20 11:13 Pain Level 0 04/14/20 11:13 Comment 04/14/20 02:37 Intake & Output 04/13/20 04/14/20 04/14/20 23:59 11:59 23:59 Intake Total 620 / 720 1960 / 3050 1090 / 3050 Output Total 1500 / 2250 1225 / 1750 525 / 1750 Balance -880 / -1530 735 / 1300 565 / 1300 Weight 56.5 kg Intake: IV 620 / 720 450 / 750 300 / 750 Oral 1510 / 2300 790 / 2300 Output: Urine 1500 / 2250 1225 / 1750 525 / 1750 Other: Urine Color Yellow Yellow Yellow Urine Appearance Clear Clear Clear Urine Odor None Comment patient 250mls post void Voiding Methods Urinal Laboratory Results WBC 3.30 k/cumm (4.4-10.8) L 04/14/20 06:30 RBC 4.46 m/cumm (4.50-6.00) L 04/14/20 06:30 Hgb 12.9 g/dL (13.5-17.5) L 04/14/20 06:30 Hct 39.3 % (40.0-50.0) L 04/14/20 06:30 MCV 88.1 fL (80-95) 04/14/20 06:30 MCH 28.9 pg (27.0-33.0) 04/14/20 06:30 MCHC 32.8 g/dL (32.0-36.0) 04/14/20 06:30 RDW 14.1 % (11.8-14.1) 04/14/20 06:30 Plt Count 68 x1000/uL (130-400) L 04/14/20 06:30 MPV 10.2 fL (8.0-11.0) 04/14/20 06:30 Immature Gran % 0.0 % 04/14/20 06:30 Neutrophils % 51.1 04/14/20 06:30 Lymphocytes % 27.0 04/14/20 06:30 Monocytes % 15.8 04/14/20 06:30 Eosinophils % 5.5 04/14/20 06:30 Basophils % 0.6 04/14/20 06:30 Absolute Neutrophils 1.69 k/cumm (1.2-6.7) 04/14/20 06:30 Absolute Lymphocytes 0.89 k/cumm (1.2-3.4) L 04/14/20 06:30 Absolute Monocytes 0.52 k/cumm (0.11-0.7) 04/14/20 06:30 Absolute Eosinophils 0.18 k/cumm (0.0-0.7) 04/14/20 06:30 Absolute Basophils 0.02 k/cumm (0.0-0.2) 04/14/20 06:30 Differential Comment Diff reviewed 04/14/20 06:30 RBC Morphology Normal 04/14/20 06:30 PT 11.0 sec (9.3-11.0) 04/07/20 16:10 INR 1.1 (0.9-1.1) 04/07/20 16:10 APTT 27.7 sec (21.0-31.4) 04/07/20 16:10 Sodium 139 mmol/L (136-145) 04/14/20 06:30 Potassium 4.4 mmol/L (3.5-5.1) 04/14/20 06:30 Chloride 107 mmol/L (98-107) 04/14/20 06:30 Carbon Dioxide 24.1 mmol/L (21.0-32.0) 04/14/20 06:30 Anion Gap 7.9 mmol/L (3-11) 04/14/20 06:30 BUN 12 mg/dL (7-18) 04/14/20 06:30 Creatinine 1.01 mg/dL (0.70-1.30) 04/14/20 06:30 Estimated GFR/1.73 m2 >= 60.00 (mL/min/1.73m2) 04/14/20 06:30 Glucose 114 mg/dL (74-106) H 04/14/20 06:30 Lactate 1.0 mmol/L (0.6-1.4) 04/08/20 13:25 Calcium 8.4 mg/dL (8.5-10.1) L 04/14/20 06:30 Magnesium 1.8 mg/dL (1.8-2.4) 04/14/20 06:30 Total Bilirubin 0.4 mg/dL (0.2-1.0) 04/07/20 16:10 AST 16 U/L (15-37) 04/07/20 16:10 ALT 19 U/L (16-63) 04/07/20 16:10 Alkaline Phosphatase 168 U/L (46-116) H 04/07/20 16:10 Troponin I < 0.05 ng/mL (<0.06) 04/12/20 21:43 C-Reactive Protein 0.55 mg/dL (0.0-0.3) H 04/08/20 13:25 NT-Pro-B Natriuret Pep 1708 pg/mL (<300) H 04/08/20 13:25 Total Protein 7.1 g/dL (6.4-8.2) 04/07/20 16:10 Albumin 4.1 g/dL (3.4-5.0) 04/07/20 16:10 Lipase 132 U/L (73-393) 04/07/20 16:10 PSA Screen 3.8 ng/mL (0.0-4.5) 04/09/20 06:25 Procalcitonin < 0.1 ng/mL 04/08/20 13:25 Urine Color Yellow (Yellow) 04/13/20 00:00 Urine Clarity Clear (Clear) 04/13/20 00:00 Urine pH 6.0 (5-8) 04/13/20 00:00 Ur Specific [place] 1.010 (1.005-1.025) 04/13/20 00:00 Urine Protein Negative mg/dL (Negative) 04/13/20 00:00 Urine Ketones Negative mg/dL (Negative) 04/13/20 00:00 Urine Blood Large (Negative) H 04/13/20 00:00 Urine Nitrite Negative (Negative) 04/13/20 00:00 Urine Bilirubin Negative (Negative) 04/13/20 00:00 Urine Urobilinogen 0.2 EU/dL (Up TO 0.2) 04/13/20 00:00 Ur Leukocyte Esterase Negative (Negative) 04/13/20 00:00 Urine RBC >50 HPF (0-2) H 04/13/20 00:00 Urine WBC Negative HPF (0-5) 04/13/20 00:00 Ur Epithelial Cells Negative HPF (Negative) 04/13/20 00:00 Urine Crystals Negative HPF (Negative) 04/13/20 00:00 Urine Bacteria Negative HPF (Negative) 04/13/20 00:00 Urine Casts Negative LPF (Negative) 04/13/20 00:00 Urine Mucus Negative (Negative) 04/13/20 00:00 Urine Other Rare renal (Negative) 04/13/20 00:00 Ur Culture Indicated? C&s done as ordered 04/13/20 00:00 Urine Glucose Negative mg/dL (Negative) 04/13/20 00:00 Vancomycin Trough 19.1 ug/mL (10.0-20.0) 04/14/20 09:00 Digoxin 0.24 ng/mL (0.90-2.00) L 04/12/20 11:24 Salicylates < 2.8 mg/dL (2.8-20.0) 04/07/20 16:10 Urine Opiates Screen Negative (Negative) 04/07/20 17:25 Urine Methadone Screen Negative (Negative) 04/07/20 17:25 Acetaminophen < 2 ug/mL (10-30) 04/07/20 16:10 Ur Barbiturates Screen Negative (Negative) 04/07/20 17:25 Lamotrigine 12.8 mcg/mL (2.5 - 15.0) 04/07/20 16:20 Ur Tricyclics Screen Negative (Negative) 04/07/20 17:25 Ur Amphetamines Screen Negative (Negative) 04/07/20 17:25 U Benzodiazepines Scrn Positive (Negative) A 04/07/20 17:25 Urine Cocaine Screen Negative (Negative) 04/07/20 17:25 Ur THC Screen Negative (Negative) 04/07/20 17:25 Ethyl Alcohol < 3.0 mg/dL (<3) 04/07/20 16:10 COVID-19 PCR Negative (Negative) 04/12/20 21:08 Nasopharyn COVID-19 PCR Not Applicable 04/12/20 21:08 Ref Test Perform Site [place] [facility] lab 04/12/20 21:08
[2020-04-14] MEDS: Atorvastatin 40 MG TAB PO (19:27)
[2020-04-15] MEDS: Normal Saline Flush 10 ML SYR IVP (01:22)
[2020-04-15] MEDS: DOXYCYCLINE 100 MG in Normal Saline 100 ML IVPB (01:23)
[2020-04-15] MEDS: dilTIAZem 30 MG TAB PO ×2 (03:26→12:06)
[2020-04-15 03:56] VITALS: BP 98/60; PULSE 125; RESP 17; TEMP 36.8; O2SAT 98
[2020-04-15 07:19] LABS: HGB 12.9 g/dL (13.5-17.5); Mean Corp. HGB Concentration 33.1 g/dL (32.0-36.0); Mean Corpuscular Hemoglobin 29.1 pg (27.0-33.0); Mean Platelet Volume 10.4 fL (8.0-11.0); RBC 4.43 m/cumm (4.50-6.00); White Blood Cell Count 3.72 k/cumm (4.4-10.8)
[2020-04-15 07:25] VITALS: BP 105/80; PULSE 102; RESP 20; TEMP 35.8; O2SAT 98
[2020-04-15 07:55] LABS: Platelet Count 87 x1000/uL (130-400)
[2020-04-15 08:34] VITALS: PULSE 113
[2020-04-15] MEDS: Finasteride 5 MG TAB PO (08:34)
[2020-04-15] MEDS: lamoTRIgine 100 MG TAB PO (08:34)
[2020-04-15] MEDS: Docusate Sodium 100 MG CAP PO (08:34)
[2020-04-15] MEDS: Digoxin 0.125 MG TAB 0.25 MG PO (08:34)
[2020-04-15] MEDS: Gabapentin 300 MG CAP PO (08:34)
[2020-04-15] MEDS: Clopidogrel 75 MG TAB PO (08:34)
[2020-04-15] MEDS: Senna TAB 1 TAB PO (08:34)
[2020-04-15] MEDS: diazePAM 2 MG TAB PO (08:34)
[2020-04-15] MEDS: Citalopram 20 MG TAB 40 MG PO (08:34)
[2020-04-15] MEDS: Pantoprazole 40 MG TABCR PO (08:34)
[2020-04-15] MEDS: Apixaban 5 MG TAB PO (08:34)
[2020-04-15] MEDS: Mometasone 220 MCG 14 DOSE INHALER 2 PUFF IH (09:42)
[2020-04-15 09:44] VITALS: O2SAT 98
[2020-04-15 11:15] VITALS: BP 109/69; PULSE 82; RESP 20; TEMP 35.9; O2SAT 100
[2020-04-15] MEDS: cefTRIAXone 1 GM/50 ML BAG IVPB (12:07)
--- NOTE | 2020-04-15 12:56 | CMPROGNOTE_ITS ---
- If Service Date Differs Date of service: 04/15/20 Time of Service: 12:56 Care Management Progress Note S/O: Miguel was reviewed at interdisciplinary rounds. He has been offered a bed at [facility] for tomorrow. He continues to be treated with IV antibiotic r/t fever, blood cultures are negative and he has not had a fever since the one episode on 04/12/2020. CM will continue to follow and assess for discharge planning and needs. A: Miguel is a 64 year old male with a history of post traumatic epilepsy, admitted with hypotension, and encephalopathy. P: [facility]. His repeat COVID test was negative on 04/12/20 at 2108. He will transport via wheelchair van when medically ready.
--- NOTE | 2020-04-15 14:05 | PDOC.CMDIS ---
- If Service Date Differs Date of service: 04/15/20 Time of Service: 14:05 LACE Index Scoring Tool - Questions: Length of Stay (in days): 4 - 6 Acuity (Admit via E.D.?): Yes Comorbidities: Cerebrovascular Disease, Congestive Heart Failure E.D. Visits: 11 - Answers: Total Score: 14 Risk of Readmission: High Risk Care Management Discharge Reason for Hospitalization: Acute confusion Discharge Plan: [facility]. CM reviewed discharge with CCC at primary care practice. Migule will be transported via wheelchair van. Miguel will be discharged with his brady cath and will need to follow up with Dr.Dixon wilsoning voiding trial and removal. Miguel accepts the bed offer and agrees to discharge today. assisted Medicaid is pending at this time. Patient/Family Education Needs: Discharge plan, limitations and follow up plan of care including ask me three and self management. Services Needed at Discharge: Residential Facility, Transportation
--- NOTE | 2020-04-15 14:22 | CHAPLAIN ---
Miguel said he his being discharged and moving to [facility] this afternoon. He asked me to let the child psychometrist of his jain, Rev. Danielle Pandey know about his move. He said his son Marciano would prefer that Miguel comes home, but Miguel said he knows he needs to have PT, get stronger and be more mobile before going home. According to Miguel, he will be going to [facility] in a couple of weeks, after he regains some strength, for heart surgery.
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
== END 2020-04-15 14:25 | disposition intermediate care facility (04) | DRG 945 ==
LOC: ER 20:45 → MS 20:47
PROVIDERS: Emergency Medicine; Family Medicine; Internal Medicine; Admitting Provider Family Medicine; Emergency Provider Physician Assistant; PCP Nurse Practitioner; Visit Provider Family Medicine
DX: R41.0 Disorientation, unspecified (principal); J18.9 Pneumonia, unspecified organism; I48.92 Unspecified atrial flutter; J44.0 Chronic obstructive pulmonary disease with (acute) lower respiratory infection; I69.354 Hemiplegia and hemiparesis following cerebral infarction affecting left non-dominant side; R45.851 Suicidal ideations; R56.1 Post traumatic seizures; I50.22 Chronic systolic (congestive) heart failure; I25.10 Atherosclerotic heart disease of native coronary artery without angina pectoris; F43.29 Adjustment disorder with other symptoms; Z91.14 Patient's other noncompliance with medication regimen; I95.9 Hypotension, unspecified; E86.0 Dehydration; Z86.711 Personal history of pulmonary embolism; Z79.01 Long term (current) use of anticoagulants; R40.0 Somnolence; Z87.820 Personal history of traumatic brain injury; R29.6 Repeated falls; R39.9 Unspecified symptoms and signs involving the genitourinary system; Z51.5 Encounter for palliative care; Z78.9 Other specified health status; Z97.8 Presence of other specified devices; R26.81 Unsteadiness on feet; R45.86 Emotional lability; R07.9 Chest pain, unspecified; D69.6 Thrombocytopenia, unspecified
CPT/HCPCS: 36415; 74177; 80048; 80053; 80175; 80307; 83690; 84145; 84153; 85027; 87040; 93005; 94640; 96360; 96361; 97110; 97162; 97530; 99219; 99221; 99222; 99223; 99232; 99233; 99239; 99252; 99254; 99285; U0003; 70450; 71045; 71260; 72125; 80162; 80202; 80320; 80329; 81003; 81015; 83605; 83735; 83880; 84484; 85014; 85018; 85025; 85610; 85730; 86140; 87086; 93010; 93306; G0378; J0696; J1160; J3490; L1820

== ENCOUNTER → 2020-04-08 09:15 | Outpatient (BNVA) | payer MEDICARE, SELFPAY | PROVIDERS: PCP Nurse Practitioner; Referring Provider Nurse Practitioner; Visit Provider Psychiatry & Neurology Neurology | DX: R69 Illness, unspecified (principal) ==

== ENCOUNTER → 2020-04-11 11:22 | Outpatient (BNVA) | payer MEDICARE, SELFPAY ==
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
== END ==
PROVIDERS: PCP Nurse Practitioner; Referring Provider Nurse Practitioner; Visit Provider Internal Medicine Cardiovascular Disease
DX: R69 Illness, unspecified (principal)

== ENCOUNTER 2020-04-22 16:47 | Outpatient (REF) | payer MEDICARE, SELFPAY ==
[2020-04-22 23:10] LABS: Bilirubin Negative (Negative); Blood Trace-lysed (Negative); Clarity Clear (Clear); Glucose Negative (Negative); Ketones Negative (Negative); Leukocyte Esterase Negative (Negative); Nitrite Negative (Negative); Specific Gravity 1.015 (1.005-1.025); Urobilinogen 0.2 EU/dL (Up TO 0.2)
[2020-04-22 23:19] LABS: C & S Indicated? C&S Done As Ordered
[2020-04-22 23:27] LABS: Bacteria Negative HPF (Negative); Casts Negative LPF (Negative); Crystals Negative HPF (Negative); Epithelial Cells Negative HPF (Negative); Mucus Negative (Negative); Other Cells Negative (Negative); RBC 0-2 HPF (0-2); WBC 0-2 HPF (0-5)
[2020-04-24 06:53] LABS: COVID-19 RT-PCR Result NEGATIVE (Negative)
== END 2020-04-22 17:07 ==
LOC: LBN 16:47
PROVIDERS: Family Medicine; PCP Nurse Practitioner; Visit Provider Nurse Practitioner Adult Health
DX: R41.82 Altered mental status, unspecified (principal); R39.9 Unspecified symptoms and signs involving the genitourinary system; R82.998 Other abnormal findings in urine; Z03.818 Encounter for observation for suspected exposure to other biological agents ruled out
CPT/HCPCS: U0003; 81003; 81015; 87086

== ENCOUNTER 2020-05-07 22:32 | Outpatient (REF) | payer MEDICARE, MEDICAID, SELFPAY ==
[2020-05-07 17:52] LABS: ALT 20 U/L (16-63); AST 14 U/L (15-37); Albumin 3.9 g/dL (3.4-5.0); Alkaline Phosphatase 207 U/L (46-116); Anion Gap 12.6 mmol/L (3-11); BUN 9 mg/dL (7-18); Bilirubin, Total 0.3 mg/dL (0.2-1.0); CO2 23.4 mmol/L (21.0-32.0); CREATININE 0.92 mg/dL (0.70-1.30); Calcium 8.9 mg/dL (8.5-10.1); Chloride 106 mmol/L (98-107); Digoxin 1.97 ng/mL (0.90-2.00); Glucose 104 mg/dL (74-106); Potassium 4.6 mmol/L (3.5-5.1); Sodium 142 mmol/L (136-145); Total Protein 6.4 g/dL (6.4-8.2)
[2020-05-07 17:58] LABS: HCT 42.2 % (40.0-50.0); HGB 13.7 g/dL (13.5-17.5); Mean Corp. HGB Concentration 32.5 g/dL (32.0-36.0); Mean Corpuscular Hemoglobin 28.5 pg (27.0-33.0); Mean Corpuscular Volume 87.9 fL (80-95); Mean Platelet Volume 10.4 fL (8.0-11.0); Platelet Count 165 x1000/uL (130-400); RBC Distribution Width 14.9 % (11.8-14.1); White Blood Cell Count 6.55 k/cumm (4.4-10.8)
== END 2020-05-07 22:52 ==
LOC: LBN 22:32
PROVIDERS: PCP Nurse Practitioner; Visit Provider Family Medicine
DX: I48.92 Unspecified atrial flutter (principal); D69.6 Thrombocytopenia, unspecified; R50.9 Fever, unspecified; Z79.899 Other long term (current) drug therapy
CPT/HCPCS: 80053; 85027; 80162

== ENCOUNTER → 2020-05-09 10:25 | Outpatient (BNVA) | payer MEDICARE, MEDICAID, SELFPAY | PROVIDERS: PCP Nurse Practitioner; Referring Provider Nurse Practitioner; Visit Provider Urology | DX: R30.0 Dysuria (principal); R39.89 Other symptoms and signs involving the genitourinary system | CPT/HCPCS: 99213 ==

== ENCOUNTER 2020-05-12 17:57 | Inpatient (IN) | payer MEDICARE, MEDICAID, SELFPAY ==
[2020-05-12] VITALS (28 sets, daily range): BP systolic 111–113; BP diastolic 75–80; PULSE 115–132; RESP 9–24; TEMP 36.7; O2SAT 92–97
--- NOTE | 2020-05-12 18:00 | RT.EKG_ITS ---
APPROVED REPORT Exam: Resting ECG Patient Location: E HR:126 bpm ECG Measurements Heart Rate 126 AXIS VT 148 P 79 QRSd 91 QRS 46 QT 338 T -89 QTc 490 <Conclusion> Sinus tachycardia...rate> 99 Probable left atrial enlargement...P >50mS, <-0.10mV V1 Inferior infarct, recent...Q>35mS, ST>0.07mV, T neg, II-aVF Nonspecific T abnormalities, lateral leads...T <-0.10mV, I aVL V5 V6. No acute ST elevation or depression.
--- NOTE | 2020-05-12 18:22 | ED.GENADUL_ITS ---
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 05/12/20 18:03 Pulse Oximetry 96 05/12/20 18:03 Temperature 98.1 F 05/12/20 18:03 Temperature Source Skin 05/12/20 18:03 Pulse 129 H 05/12/20 18:03 Respiratory Rate 19 05/12/20 18:18 Respiratory Effort Non-Labored 05/12/20 18:18 Respiratory Depth Normal 05/12/20 18:18 Respiratory Pattern Normal 05/12/20 18:18 Blood Pressure 113/80 05/12/20 18:03 Blood Pressure Position Sitting 05/12/20 18:03 Pulse Oximetry 96 05/12/20 18:03 Oxygen Delivery Method Room Air 05/12/20 18:03 Oxygen Flow Rate 0 05/12/20 18:03 Sign Out <Radha Smith DO - Last Filed: 05/13/20 09:12> Sign Out Data: Sign Out Comment: follow up on HR response to diltiazem and IVF and final disposition. Last updated by Radha Smith DO at 05/12/20 20:06
[2020-05-12 18:29] LABS: Abs Immature Grans 0.01 k/cumm (0.0-0.09); Absolute Basophil Count 0.04 k/cumm (0.0-0.2); Absolute Eosinophil Count 0.29 k/cumm (0.0-0.7); Absolute Lymphocyte Count 1.31 k/cumm (1.2-3.4); Absolute Monocyte Count 0.81 k/cumm (0.11-0.7); Absolute Neutrophil Count 4.12 k/cumm (1.2-6.7); Basophils % 0.6; Eosinophils % 4.4; HCT 38.3 % (40.0-50.0); HGB 12.8 g/dL (13.5-17.5); Immature Grans % 0.2 %; Lymphocytes % 19.9; Mean Corp. HGB Concentration 33.4 g/dL (32.0-36.0); Mean Corpuscular Volume 86.7 fL (80-95); Mean Platelet Volume 9.7 fL (8.0-11.0); Monocytes % 12.3; Neutrophils % 62.6; Platelet Count 167 x1000/uL (130-400); RBC 4.42 m/cumm (4.50-6.00); RBC Distribution Width 13.9 % (11.8-14.1); White Blood Cell Count 6.58 k/cumm (4.4-10.8)
--- NOTE | 2020-05-12 18:30 | DI.CT_ITS ---
EXAM: CT CHEST PE ABD PELVIS W CLINICAL HISTORY: fatigue, dizzy, upper abd tenderness. TECHNIQUE: Imaging Protocol: Axial CT angiography was performed with multi-slice acquisition and mu lti-planar and/or 3D reconstructions. CONTRAST MATERIAL: Intravenous: Omnipaque 350 Contrast volume:47 mL COMPARISON: CT CT CHEST/ABD/PEL W from 04/07/2020 FINDINGS: CHEST: Pulmonary Arteries: No evidence of filling defect to suggest pulmonary emboli. Tracheobronchial tree: Patent where visualized. Mediastinum and Lisseth: No dominant adenopathy or fluid collection. Pulmonary parenchyma: Bilateral lower lobe infiltrates. No architectural distortion. Pleura: No effusion or pneumothorax. Heart: The heart is not dilated. Mild coronary artery calcification. No pericardial effusion. Aorta: Thoracic aorta non-dilated. Atherosclerosis. No dissection. Upper abdomen: Please see below. Bones: Degenerative changes. ABDOMEN: Liver: Normal density. No measurable mass. There is a tiny hypodensity in the superior aspect of the liver. It is too small for further characterization but likely reflects a small cyst. Portal, Superior Mesenteric, and Splenic Veins: Unremarkable. Gallbladder and Biliary Tract: No radiodense calculus or dilation. Pancreas: Normal density, no abnormal calcifications or inflammatory process. Spleen: Normal. Adrenals: No masses seen. Kidneys: Normal size, contour and axis. No radiodense stones or obstructive uropathy. No masses seen. Abdominal Aorta: Abdominal portion non-dilated. Atherosclerosis. Bowel: No obstruction or bowel wall thickening. Appendix is unremarkable. Gastric distension. Peritoneal Cavity: No ascites, collection or mesenteric inflammatory response. Lymph Nodes: Within normal limits. Bones: Unremarkable. Soft Tissues: Unremarkable. PELVIS: Bladder: Symmetric distention, no gross wall thickening. Reproductive Organs: Unremarkable as visualized. Lymph Nodes: Within normal limits. Bones: Degenerative changes are present. IMPRESSION: 1. No evidence of pulmonary embolism, thoracic aortic dissection or aneurysm. 2. Bilateral lower lobe infiltrates. These may represent atelectasis or pneumonia. 3. No acute abdominal or pelvic process. 4. Gastric distension. RADIATION DOSE DELIVERED: Total DLP Total DLP DATA REPOSITORY: All CT scans at this facility are submitted to the National Radiology Data Registry (NRDR) Dose Index Registry (DIR) with the [employer] ([employer]). RADIATION OPTIMIZATION: All CT scans at this facility use at least one of these dose optimization te chniques: automated exposure control; mA and/or kV adjustment per patient size (includes targeted exa ms where dose is matched to clinical indication); or iterative reconstruction.
--- NOTE | 2020-05-12 18:30 | DI.CT_ITS ---
EXAM: CT HEAD WO CLINICAL HISTORY: fatigue, r/o acute disease. TECHNIQUE: Imaging Protocol: Axial computed tomography images with coronal and sagittal reformatted images were created and reviewed COMPARISON: CT CT HEAD CERVICAL SPINE WO from 04/07/2020 FINDINGS: Ventricles and Extra axial spaces: Normal in size and morphology for the patient's age. Hemorrhage: None. Cerebral parenchyma: There are areas of decreased attenuation in the white matter consistent with giovanny rovascular ischemic disease. No evidence of an acute territorial infarct is seen. Midline shift: None. Brainstem/Cerebellum: Normal. Calvarium: Normal. Visualized Paranasal sinuses/Mastoids: There is mild opacification of several ethmoid air cells. The remaining visualized paranasal sinuses are clear. The mastoid air cells are hypoplastic. Soft Tissues: Unremarkable. IMPRESSION: No acute intracranial process. RADIATION DOSE DELIVERED: Total DLP DATA REPOSITORY: All CT scans at this facility are submitted to the National Radiology Data Registry (NRDR) Dose Index Registry (DIR) with the [employer] ([employer]). RADIATION OPTIMIZATION: All CT scans at this facility use at least one of these dose optimization te chniques: automated exposure control; mA and/or kV adjustment per patient size (includes targeted exa ms where dose is matched to clinical indication); or iterative reconstruction.
[2020-05-12 18:41] LABS: PTT Activated 20.4 sec (21.0-31.4); Prothrombin Time 10.1 sec (9.3-11.0)
[2020-05-12] MEDS: Normal Saline 250 ML IV ×2 (18:42→19:56)
[2020-05-12 18:44] LABS: ALT 19 U/L (16-63); AST 22 U/L (15-37); Albumin 3.5 g/dL (3.4-5.0); Alkaline Phosphatase 245 U/L (46-116); Anion Gap 8.9 mmol/L (3-11); BUN 17 mg/dL (7-18); Bilirubin, Total 0.5 mg/dL (0.2-1.0); CO2 28.1 mmol/L (21.0-32.0); CREATININE 0.99 mg/dL (0.70-1.30); Calcium 8.9 mg/dL (8.5-10.1); Chloride 103 mmol/L (98-107); Glucose 93 mg/dL (74-106); Magnesium 2.1 mg/dL (1.8-2.4); Potassium 3.9 mmol/L (3.5-5.1); Sodium 140 mmol/L (136-145); Total Protein 7.1 g/dL (6.4-8.2); Troponin I < 0.05 ng/mL (<0.06)
[2020-05-12] MEDS: Omnipaque 350 MG/ML 100 ML BTL IJ (19:02)
[2020-05-12] MEDS: Normal Saline - Diluent 50 ML VIAL IV (19:10)
[2020-05-12] MEDS: Normal Saline Flush 10 ML SYR IVP (19:18)
--- NOTE | 2020-05-12 19:23 | DI.VRAD_ITS ---
PROCEDURE INFORMATION: Exam: CT Head Without Contrast Exam date and time: 05/12/2020 6:33 PM Age: 64 years old Clinical indication: Other: Fatigue, R/O disease TECHNIQUE: Imaging protocol: Computed tomography of the head without contrast. COMPARISON: CT HEAD CERVICAL SPINE WO 04/07/2020 5:43 PM FINDINGS: Brain: There is mild age related parenchymal atrophy with prominence of the cortical sulci. Periventricular and deep white matter hypodensities are consistent with sequela of chronic microvascular ischemic disease. Padilla-white matter differentiation is preserved. No acute intracranial hemorrhage. Ventricles: Unremarkable. No ventriculomegaly. Bones/joints: Unremarkable. No acute fracture. Sinuses: Paranasal sinuses are well aerated without air fluid level. Mastoid air cells: Hypoplastic aeration of the mastoid air cells with mild fluid in the right mastoid air cells. Orbits: Unremarkable. Vasculature: Vascular calcifications within the vertebral and carotid arteries are present. Soft tissues: No focal soft tissue abnormality. IMPRESSION: No acute intracranial finding. Dictated and Authenticated by: Shay Steen MD. Ordering:FENG Garcia MD
[2020-05-12 19:39] LABS: Bilirubin Negative (Negative); Blood Moderate (Negative); Clarity Clear (Clear); Glucose Negative (Negative); Ketones Negative (Negative); Leukocyte Esterase Negative (Negative); Nitrite Negative (Negative); Specific Gravity 1.025 (1.005-1.025)
[2020-05-12 19:48] LABS: Bacteria Negative HPF (Negative); Crystals Negative HPF (Negative); Epithelial Cells Negative HPF (Negative); Mucus Moderate (Negative); RBC >50 HPF (0-2); WBC Negative HPF (0-5)
[2020-05-12 19:49] LABS: C & S Indicated? No
--- NOTE | 2020-05-12 20:20 | DI.VRAD_ITS ---
PROCEDURE INFORMATION: Exam: CT Angiography Chest With Contrast Exam date and time: 05/12/2020 7:10 PM Age: 64 years old Clinical indication: Other: Fatigue, dizzy, upper abd tenderness TECHNIQUE: Imaging protocol: Computed tomographic angiography of the chest with intravenous contrast. 3D rendering: MIP and/or 3D reconstructed images were created by the technologist. Contrast material: OMNIPAQUE 350; Contrast volume: 60 ml; Contrast route: INTRAVENOUS (IV); COMPARISON: CT THORAX ABDOMEN CTA 08/27/2019 9:48 PM FINDINGS: Pulmonary arteries: Main pulmonary artery normal in caliber. No pulmonary artery filling defects. Aorta: Unremarkable. No aortic aneurysm. No aortic dissection. Lungs: Dependent subsegmental atelectasis. Patchy bilateral lower lobe infiltrates. Pleural space: No pneumothorax. No pleural effusion. Heart: Unremarkable. No cardiomegaly. No pericardial effusion. Lymph nodes: Unremarkable. No enlarged lymph nodes. Bones/joints: Unremarkable. No acute fracture. Soft tissues: Unremarkable. IMPRESSION: Patchy bilateral lower lobe infiltrates. PROCEDURE INFORMATION: Exam: CT Abdomen And Pelvis With Contrast Exam date and time: 05/12/2020 7:10 PM Age: 64 years old Clinical indication: Other: Fatigue, dizzy, upper abd tenderness TECHNIQUE: Imaging protocol: Computed tomography of the abdomen and pelvis with intravenous contrast. 3D rendering: MIP and/or 3D reconstructed images were created by the technologist. Contrast material: OMNIPAQUE 350; Contrast volume: 60 ml; Contrast route: INTRAVENOUS (IV); COMPARISON: CT THORAX ABDOMEN CTA 08/27/2019 9:48 PM FINDINGS: Liver: Too small to characterize subcentimeter hypoenhancing area or lesion in dome of the liver. Gallbladder and bile ducts: Normal. No calcified stones. No ductal dilation. Pancreas: Normal. No ductal dilation. Spleen: Normal. No splenomegaly. Adrenals: Normal. No mass. Kidneys and ureters: Normal. No hydronephrosis. Stomach and bowel: Gastric distension. No dilated loops of small bowel or colonic dilatation. Appendix: Normal appendix. Intraperitoneal space: No free intraperitoneal gas. No ascites. Vasculature: Unremarkable. No abdominal aortic aneurysm. Lymph nodes: No adenopathy. Bladder: Unremarkable as visualized. Reproductive: Unremarkable as visualized. Bones/joints: The spine demonstrates mild degenerative changes at multiple levels. Prominent Schmorl's nodes through superior and inferior endplates of L2. Soft tissues: Unremarkable. IMPRESSION: Gastric distension. Dictated and Authenticated by: Jairon Hung MD. Ordering:FENG Garcia MD
[2020-05-12] MEDS: dilTIAZem 60 MG TAB PO (20:21)
[2020-05-12] MEDS: cefTRIAXone 2 GM/50 ML BAG IVPB (20:40)
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
[2020-05-12] MEDS: DOXYCYCLINE 100 MG in Normal Saline 100 ML IVPB (21:10)
[2020-05-12 21:25] LABS: Digoxin 0.28 ng/mL (0.90-2.00)
[2020-05-12 21:34] LABS: TSH (W/Ref FT4) 0.54 uIU/mL (0.36-3.74)
[2020-05-13] VITALS (55 sets, daily range): BP systolic 90–135; BP diastolic 62–96; PULSE 71–128; RESP 2–28; TEMP 36–36.8; O2SAT 86–98
[2020-05-13] MEDS: Acetaminophen 325 MG TAB PO ×2 (00:24→14:38)
[2020-05-13] MEDS: Normal Saline 1,000 ML 125 ML IV ×2 (00:26→08:00)
[2020-05-13] MEDS: Metoprolol 5 MG/5 ML VIAL IVP ×2 (02:08→05:54)
[2020-05-13 07:23] LABS: HCT 35.3 % (40.0-50.0); HGB 11.4 g/dL (13.5-17.5); Mean Corp. HGB Concentration 32.3 g/dL (32.0-36.0); Mean Corpuscular Hemoglobin 28.4 pg (27.0-33.0); Mean Platelet Volume 10.2 fL (8.0-11.0); Platelet Count 140 x1000/uL (130-400); RBC 4.01 m/cumm (4.50-6.00)
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
[2020-05-13 07:41] LABS: ALT 15 U/L (16-63); AST 16 U/L (15-37); Albumin 2.9 g/dL (3.4-5.0); Alkaline Phosphatase 231 U/L (46-116); Anion Gap 6.6 mmol/L (3-11); BUN 13 mg/dL (7-18); Bilirubin, Total 0.5 mg/dL (0.2-1.0); CO2 26.4 mmol/L (21.0-32.0); CREATININE 0.94 mg/dL (0.70-1.30); Calcium 8.5 mg/dL (8.5-10.1); Chloride 106 mmol/L (98-107); Glucose 94 mg/dL (74-106); Potassium 4.1 mmol/L (3.5-5.1); Sodium 139 mmol/L (136-145); Total Protein 5.8 g/dL (6.4-8.2)
[2020-05-13 07:46] LABS: Troponin I < 0.05 ng/mL (<0.06)
[2020-05-13] MEDS: Metoprolol 12.5 MG TAB PO ×2 (07:57→16:55)
[2020-05-13] MEDS: Apixaban 5 MG TAB PO ×2 (07:57→20:03)
[2020-05-13] MEDS: Gabapentin 600 MG TAB PO ×4 (07:57→20:03)
[2020-05-13] MEDS: Doxycycline Hyclate 100 MG CAP PO (07:57)
[2020-05-13] MEDS: Citalopram 20 MG TAB 40 MG PO (07:57)
[2020-05-13] MEDS: Pantoprazole 40 MG TABCR PO (07:57)
[2020-05-13] MEDS: Magnesium Oxide 400 MG TAB PO (07:58)
[2020-05-13] MEDS: Digoxin 0.125 MG TAB 0.25 MG PO (07:58)
[2020-05-13] MEDS: Isosorbide Dinitrate 10 MG TAB 20 MG PO ×2 (07:58→20:04)
[2020-05-13] MEDS: lamoTRIgine 100 MG TAB PO ×2 (07:58→20:03)
[2020-05-13] MEDS: dilTIAZem 60 MG TAB PO (07:58)
[2020-05-13] MEDS: Finasteride 5 MG TAB PO (07:58)
[2020-05-13] MEDS: Clopidogrel 75 MG TAB PO (07:59)
[2020-05-13] MEDS: diazePAM 2 MG TAB PO ×2 (07:59→20:04)
[2020-05-13 08:25] LABS: NT-proBNP 1370 pg/mL (<300)
--- NOTE | 2020-05-13 08:36 | NT_ITS ---
Date of service: 05/13/20 Time of Service: 08:36 PT Notes Visit Reasons: BILAT LWR LOBE PNEUMONIA,TACHYCARDIA,FATIGUE Miguel remains a PUI and is awaiting COVID-19 testing result. Will do initial PT evaluation as soon as result is in. Dr. Gooden is in agreement. Thank you very much for this referral. Adelina Gardner PT, DPT, CLT [facility] at [place], [place]
[2020-05-13] MEDS: Albuterol HFA 8 GM 60 PUFF INH IH ×4 (10:24→21:52)
--- NOTE | 2020-05-13 11:06 | W.PM.PROGNOT ---
Date of Service Date of service: 05/13/20 Time of Service: 11:06 Assessment and Plan Assessment and plan (1) Atrial flutter: Status: Chronic Assessment and plan: In light of his ischemic cardiomyopathy I have changed his diltiazem to metoprolol. I put him on metoprolol 12.5 mg p.o. every 8 hours as well as ordered as needed Lopressor 5 mg IV every hour as needed sustained heart rate of 120 or greater. Continue anticoagulation with his apixaban. Continue digoxin at 0.25 mg daily Qualifiers: Atrial flutter type: unspecified Qualified Code(s): I48.92 - Unspecified atrial flutter (2) Acute on chronic systolic heart failure: Status: Acute Assessment and plan: We will give him IV Lasix and diurese. Once he is euvolemic we will add low-dose lisinopril. We will treat with low-dose beta-blockers as noted above. (3) Ischemic cardiomyopathy: Status: Acute Assessment and plan: All of his troponin levels have been negative therefore effectively ruling out an acute myocardial infarction. He just had an echocardiogram about a month ago so I am not going to repeat it at this time since we can explain his acute exacerbation of CHF due to a flareup of his atrial flutter/atrial fibrillation rate. Continue his Imdur. (4) COPD (chronic obstructive pulmonary disease): Status: Chronic Assessment and plan: Continue Asmanex. Can use Atrovent on a as needed basis. (5) DVT prophylaxis: Status: Acute Assessment and plan: Currently anticoagulated with apixaban for his atrial fibrillation/atrial flutter (6) Discharge planning issues: Status: Acute Assessment and plan: Patient lives with his son and intends to return home to his son upon discharge. Subjective Subjective Interval history since last seen: Patient is 64-year-old male with a history of chronic atrial fibrillation/atrial flutter, ischemic cardiomyopathy with a left ventricular ejection fraction of 35%, COPD who presented last night with progressive dyspnea fatigue generalized weakness. He has a chronic bronchitic cough that is usually productive of some small amount of yellow mucus. He is not been running any fevers or chills. He is not been around any patients with known COVID. He was evaluated the emergency department last night and given a preliminary diagnosis of bilateral pneumonia. He presented with rapid atrial fibrillation was treated with IV Lopressor and admitted last night for treatment of his atrial flutter and pneumonia. He was started on Rocephin and doxycycline last night. His work-up last night included EKG routine labs and a CT scan of his chest. CTA of his chest showed no pulmonary embolus lungs demonstrate dependent subsegmental atelectasis and patchy bilateral lower lobe infiltrates. No pleural effusion. No pericardial effusion. CBC showed a normal white cell count 6500. He has a stable chronic anemia with a hemoglobin of 12.8 g. There is no left shift in his white cell differential. CMP demonstrated normal renal function and electrolytes. Alkaline phosphatase is elevated but this is been a chronic issue. Troponins were negative x2 sets. proBNP was not checked last night but I checked it this morning and it was elevated at 1370 with his baseline BNP being 300-400. He was placed on IV fluids overnight in 125 mL/h. He was treated with Rocephin and doxycycline. His rapid atrial fibrillation was treated with IV Lopressor and he was restarted on his digoxin and his diltiazem. It is my impression that we are not dealing with pneumonia and that he has had no fevers no chills no change in his sputum production and I think that the CT scans being over read and probably represents atelectasis rather than infiltrate. I did a [id number] ultrasound of his lungs he has diffuse B-lines bilaterally worse in the bases. With the elevated proBNP and normal white cell count and no fever I think pneumonia is unlikely diagnosis and CHF fits the picture. I think he suffers from exacerbation of his ischemic cardiomyopathy secondary to his rapid atrial flutter/atrial fibrillation. Admitted discontinue antibiotics start IV Lasix and work on heart rate control. Exam Narrative Exam Narrative: Middle-age male lying in the bed in semi-sapp position in no respiratory distress. He is able to talk in complete sentences he is alert and oriented person place time circumstance. Lungs reveal bibasilar rales no rhonchi or wheezing upper lung trujillo are clear. Heart is irregular slightly tachycardic I do not appreciate a murmur however with my PPE it was difficult hearing him. Abdomen soft and nontender normal bowel sounds. Extremities without peripheral cyanosis or edema. Objective Objective Clinical Data: Abnormal lab results 05/12/20 05/12/20 05/12/20 Range/Units 18:22 18:22 18:22 RBC 4.42 L (4.50-6.00) m/cumm Hgb 12.8 L (13.5-17.5) g/dL Hct 38.3 L (40.0-50.0) % Absolute Monocytes 0.81 H (0.11-0.7) k/cumm APTT 20.4 L (21.0-31.4) sec ALT (16-63) U/L Alkaline Phosphatase 245 H (46-116) U/L NT-Pro-B Natriuret Pep (<300) pg/mL Total Protein (6.4-8.2) g/dL Albumin (3.4-5.0) g/dL Urine Blood (Negative) Urine Urobilinogen (Up TO 0.2) EU/dL Urine RBC (0-2) HPF Digoxin (0.90-2.00) ng/mL 05/12/20 05/12/20 05/13/20 Range/Units 18:22 19:35 06:25 RBC (4.50-6.00) m/cumm Hgb (13.5-17.5) g/dL Hct (40.0-50.0) % Absolute Monocytes (0.11-0.7) k/cumm APTT (21.0-31.4) sec ALT 15 L (16-63) U/L Alkaline Phosphatase 231 H (46-116) U/L NT-Pro-B Natriuret Pep (<300) pg/mL Total Protein 5.8 L (6.4-8.2) g/dL Albumin 2.9 L (3.4-5.0) g/dL Urine Blood Moderate H (Negative) Urine Urobilinogen 1.0 H (Up TO 0.2) EU/dL Urine RBC >50 H (0-2) HPF Digoxin 0.28 L (0.90-2.00) ng/mL 05/13/20 05/13/20 Range/Units 06:25 06:25 RBC 4.01 L (4.50-6.00) m/cumm Hgb 11.4 L (13.5-17.5) g/dL Hct 35.3 L (40.0-50.0) % Absolute Monocytes (0.11-0.7) k/cumm APTT (21.0-31.4) sec ALT (16-63) U/L Alkaline Phosphatase (46-116) U/L NT-Pro-B Natriuret Pep 1370 H (<300) pg/mL Total Protein (6.4-8.2) g/dL Albumin (3.4-5.0) g/dL Urine Blood (Negative) Urine Urobilinogen (Up TO 0.2) EU/dL Urine RBC (0-2) HPF Digoxin (0.90-2.00) ng/mL Vital Signs Temperature 36.3 C L 05/13/20 08:15 Temperature Source Temporal Artery Scan 05/13/20 08:15 Pulse 115 H 05/13/20 10:02 Pulse Rhythm Irregular 05/13/20 08:15 Pulse 98 H 05/13/20 10:02 Respiratory Rate 19 05/13/20 09:30 Respiratory Effort Non-Labored 05/13/20 08:15 Respiratory Depth Normal 05/13/20 08:15 Respiratory Pattern Normal 05/13/20 08:15 Blood Pressure 98/67 L 05/13/20 10:02 Blood Pressure Mean 76 05/13/20 10:02 Blood Pressure Position Supine 05/13/20 00:35 Pulse Oximetry 96 05/13/20 10:02 Oxygen Delivery Method Room Air 05/13/20 08:15 Oxygen Flow Rate 0 05/13/20 08:15 Pain Level 2 05/13/20 08:15 Comment 05/13/20 08:15 Intake & Output 05/12/20 05/12/20 05/13/20 11:59 23:59 11:59 Intake Total 650 / 650 1620 / 1620 Output Total 300 / 300 Balance 650 / 650 1320 / 1320 Weight 53.524 kg 54 kg Intake: IV 650 / 650 1000 / 1000 Oral 620 / 620 Output: Urine 300 / 300 Other: Urine Color Dark Galile[place] Urine Appearance Clear Urine Odor None Voiding Methods Urinal Laboratory Results WBC 7.50 k/cumm (4.4-10.8) 05/13/20 06:25 RBC 4.01 m/cumm (4.50-6.00) L 05/13/20 06:25 Hgb 11.4 g/dL (13.5-17.5) L 05/13/20 06:25 Hct 35.3 % (40.0-50.0) L 05/13/20 06:25 MCV 88.0 fL (80-95) 05/13/20 06:25 MCH 28.4 pg (27.0-33.0) 05/13/20 06:25 MCHC 32.3 g/dL (32.0-36.0) 05/13/20 06:25 RDW 14.0 % (11.8-14.1) 05/13/20 06:25 Plt Count 140 x1000/uL (130-400) 05/13/20 06:25 MPV 10.2 fL (8.0-11.0) 05/13/20 06:25 Immature Gran % 0.2 % 05/12/20 18:22 Neutrophils % 62.6 05/12/20 18:22 Lymphocytes % 19.9 05/12/20 18:22 Monocytes % 12.3 05/12/20 18:22 Eosinophils % 4.4 05/12/20 18:22 Basophils % 0.6 05/12/20 18:22 Absolute Neutrophils 4.12 k/cumm (1.2-6.7) 05/12/20 18:22 Absolute Lymphocytes 1.31 k/cumm (1.2-3.4) 05/12/20 18:22 Absolute Monocytes 0.81 k/cumm (0.11-0.7) H 05/12/20 18:22 Absolute Eosinophils 0.29 k/cumm (0.0-0.7) 05/12/20 18: Absolute Basophils 0.04 k/cumm (0.0-0.2) 05/12/20 18:22 PT 10.1 sec (9.3-11.0) 05/12/20 18:22 INR 1.0 (0.9-1.1) 05/12/20 18:22 APTT 20.4 sec (21.0-31.4) L 05/12/20 18:22 Sodium 139 mmol/L (136-145) 05/13/20 06:25 Potassium 4.1 mmol/L (3.5-5.1) 05/13/20 06:25 Chloride 106 mmol/L (98-107) 05/13/20 06:25 Carbon Dioxide 26.4 mmol/L (21.0-32.0) 05/13/20 06:25 Anion Gap 6.6 mmol/L (3-11) 05/13/20 06:25 BUN 13 mg/dL (7-18) 05/13/20 06:25 Creatinine 0.94 mg/dL (0.70-1.30) 05/13/20 06:25 Estimated GFR/1.73 m2 >= 60.00 (mL/min/1.73m2) 05/13/20 06:25 Glucose 94 mg/dL (74-106) 05/13/20 06:25 Calcium 8.5 mg/dL (8.5-10.1) 05/13/20 06:25 Magnesium 2.1 mg/dL (1.8-2.4) 05/12/20 18:22 Total Bilirubin 0.5 mg/dL (0.2-1.0) 05/13/20 06:25 AST 16 U/L (15-37) 05/13/20 06:25 ALT 15 U/L (16-63) L 05/13/20 06:25 Alkaline Phosphatase 231 U/L (46-116) H 05/13/20 06:25 Troponin I < 0.05 ng/mL (<0.06) 05/13/20 06:25 NT-Pro-B Natriuret Pep 1370 pg/mL (<300) H 05/13/20 06:25 Total Protein 5.8 g/dL (6.4-8.2) L 05/13/20 06:25 Albumin 2.9 g/dL (3.4-5.0) L 05/13/20 06:25 TSH 0.54 uIU/mL (0.36-3.74) 05/12/20 18:22 Urine Color Yellow (Yellow) 05/12/20 19:35 Urine Clarity Clear (Clear) 05/12/20 19:35 Urine pH 6.0 (5-8) 05/12/20 19:35 Ur Specific [place] 1.025 (1.005-1.025) 05/12/20 19:35 Urine Protein Negative mg/dL (Negative) 05/12/20 19:35 Urine Ketones Negative mg/dL (Negative) 05/12/20 19:35 Urine Blood Moderate (Negative) H 05/12/20 19:35 Urine Nitrite Negative (Negative) 05/12/20 19:35 Urine Bilirubin Negative (Negative) 05/12/20 19:35 Urine Urobilinogen 1.0 EU/dL (Up TO 0.2) H 05/12/20 19:35 Ur Leukocyte Esterase Negative (Negative) 05/12/20 19:35 Urine RBC >50 HPF (0-2) H 05/12/20 19:35 Urine WBC Negative HPF (0-5) 05/12/20 19:35 Ur Epithelial Cells Negative HPF (Negative) 05/12/20 19:35 Urine Crystals Negative HPF (Negative) 05/12/20 19:35 Urine Bacteria Negative HPF (Negative) 05/12/20 19:35 Urine Mucus Moderate (Negative) 05/12/20 19:35 Ur Culture Indicated? No 05/12/20 19:35 Urine Glucose Negative mg/dL (Negative) 05/12/20 19:35 Digoxin 0.28 ng/mL (0.90-2.00) L 05/12/20 18:22
[2020-05-13 13:11] LABS: Procalcitonin < 0.1 ng/mL
[2020-05-13 14:11] LABS: COVID-19 RT-PCR UVMMC Result Negative (Negative)
[2020-05-13] MEDS: Normal Saline Flush 10 ML SYR IVP (14:19)
[2020-05-13] MEDS: Furosemide 40 MG/4 ML VIAL IVP (14:19)
[2020-05-13] MEDS: Potassium Chloride 20 MEQ TABCR PO ×2 (14:19→20:04)
--- NOTE | 2020-05-13 14:59 | PHA.REVIEW ---
Pharmacy Admission Review - Admission Clinical Review (Last Updated 05/13/20 @ 12:14 by Lexx Gooden) Discharge planning issues (Acute) DVT prophylaxis (Acute) Ischemic cardiomyopathy (Acute) Acute on chronic systolic heart failure (Acute) Tachycardia (Acute) Pneumonia (Acute) aripiprazole Allergy (Mild, Verified 05/12/20 18:15) SKIN RASH codeine Allergy (Unknown, Verified 05/12/20 18:15) Nausea, vomiting, rash aspirin Adverse Reaction (Unknown, Verified 05/12/20 18:15) Skin Rash Height 5 ft 2 in Weight 54 kg - Renal Dosing Renal Dosing: BUN 13 mg/dL (7-18) 05/13/20 06:25 Creatinine 0.94 mg/dL (0.70-1.30) 05/13/20 06:25 Medications needing adjustments: Reviewed (Crcl ~60 mL/min current meds okay) - Anticoagulation Anticoagulation: Hgb 11.4 g/dL (13.5-17.5) L 05/13/20 06:25 Hct 35.3 % (40.0-50.0) L 05/13/20 06:25 Plt Count 140 x1000/uL (130-400) 05/13/20 06:25 INR 1.0 (0.9-1.1) 05/12/20 18:22 Creatinine 0.94 mg/dL (0.70-1.30) 05/13/20 06:25 DVT Prohphylaxis: N/A Therapeutic Anticoagulation: Reviewed Medications: Apixaban - Opiate Usage Evaluate Pain Scale/Pains Meds: Reviewed Scheduled Bowel Reg ordered if on Opiates?: No (has prn meds ordered) - Relevant Labs Sodium 139 mmol/L (136-145) 05/13/20 06:25 Potassium 4.1 mmol/L (3.5-5.1) 05/13/20 06:25 Chloride 106 mmol/L (98-107) 05/13/20 06:25 Magnesium 2.1 mg/dL (1.8-2.4) 05/12/20 18:22 Electrolytes, C-Reactive P, ESR: Reviewed - DM Control DM Control: Glucose 94 mg/dL (74-106) 05/13/20 06:25 Insulin Dosing: N/A - Heart Failure/WA Heart Failure/WA: Troponin I < 0.05 ng/mL (<0.06) 05/13/20 06:25 NT-Pro-B Natriuret Pep 1370 pg/mL (<300) H 05/13/20 06:25 EF%, FEDERICO's, B-Blockers, Diuretics: Reviewed - BP Control BP Control: Blood Pressure 102/75 Blood Pressure 95/77 Blood Pressure 108/64 Blood Pressure 135/96 Blood Pressure 98/67 Blood Pressure 105/86 If elevated: N/A - Qtc Review If Elevated: N/A - IV to PO Switch IV Medications: N/A - Home Meds Home Med List reviewed: Reviewed (multiple [employer] depressants: fentanyl, diazepam, gabapentin, lamotrigine, trazodone. Separate admin of gabapentin and magnesium oxide. Diltiazem may increase the serum concentration of fentanyl and atorvastatin; atorvastatin may increase the serum concentration of diltiazem. Consider dose reductions and monitor closely for adverse/toxic effects. Clopidogrel may enhance the bleed risk of apixaban; consider alternatives and monitor closely.) Relevent Home Meds Not ordered & why?: cyanocobalamin, diltiazem (was discontinued), ergocalciferol, flovent (mometasone subbed for this) - Current meds Current Medication Order Review: Intervened (Discontinued DI meds) - Comments Comments/Follow Ups: Watch BP, HR, I/O's, weight and for med changes. Antibiotic Activity - Pharmacy Antibiotic Review Pharmacy Antibiotic Activity: D/C antibiotic (discontinued)
[2020-05-13] MEDS: Atorvastatin 40 MG TAB PO (20:03)
[2020-05-13] MEDS: Mometasone 220 MCG 14 DOSE INHALER 1 PUFF IH (20:05)
[2020-05-13] MEDS: Tamsulosin 0.4 MG CAPCR PO (21:54)
[2020-05-14] VITALS (23 sets, daily range): BP systolic 93–122; BP diastolic 57–76; PULSE 69–134; RESP 0–24; TEMP 36.4–36.6; O2SAT 96–99
[2020-05-14] MEDS: Metoprolol 12.5 MG TAB PO ×2 (00:38→17:09)
[2020-05-14 07:33] LABS: Anion Gap 6.1 mmol/L (3-11); BUN 15 mg/dL (7-18); CO2 30.9 mmol/L (21.0-32.0); CREATININE 0.99 mg/dL (0.70-1.30); Calcium 9.1 mg/dL (8.5-10.1); Chloride 104 mmol/L (98-107); Glucose 98 mg/dL (74-106); NT-proBNP 1957 pg/mL (<300); Potassium 4.2 mmol/L (3.5-5.1); Sodium 141 mmol/L (136-145)
--- NOTE | 2020-05-14 08:18 | PDOC.CMPRO ---
- If Service Date Differs Date of service: 05/14/20 Time of Service: 08:19 Care Management Progress Note S/O:Miguel remains acute at this time, medications continues to be adjusted he did have some hypotension. If he improves he may transition to medical surgical status this afternoon. No change in the discharge plan he will return home with his son at time of discharge. He is on the list for [facility] and is hopeful he will be able to transition there as soon as there is an opening. A:Miguel is a 64 year old male admitted with Lower lobe pneumonia, tachycardia, fatigue P:Miguel will be discharged home when medically ready he will need resumption of home health including nursing, PT and OT. CM will continue to assess for ongoing discharged needs. Miguel will transport home with his son Marciano at time of discharge.
[2020-05-14] MEDS: Digoxin 0.125 MG TAB 0.25 MG PO (08:20)
[2020-05-14] MEDS: diazePAM 2 MG TAB PO ×2 (08:21→20:43)
[2020-05-14] MEDS: Magnesium Oxide 400 MG TAB PO (08:21)
[2020-05-14] MEDS: Clopidogrel 75 MG TAB PO (08:22)
[2020-05-14] MEDS: Citalopram 20 MG TAB 40 MG PO (08:23)
[2020-05-14] MEDS: lamoTRIgine 100 MG TAB PO ×2 (08:23→20:42)
[2020-05-14] MEDS: Apixaban 5 MG TAB PO ×2 (08:23→20:44)
[2020-05-14] MEDS: Gabapentin 600 MG TAB PO ×4 (08:23→20:44)
[2020-05-14] MEDS: Finasteride 5 MG TAB PO (08:29)
[2020-05-14] MEDS: Pantoprazole 40 MG TABCR PO (08:29)
[2020-05-14] MEDS: Potassium Chloride 20 MEQ TABCR PO (08:29)
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
[2020-05-14] MEDS: Normal Saline Flush 10 ML SYR IVP (09:00)
[2020-05-14] MEDS: Normal Saline 250 ML IV (09:00)
--- NOTE | 2020-05-14 09:28 | W.NUTCONSULT ---
Date of service: 05/14/20 Time of Service: 09:28 Nutritional Consult ASSESSMENT: 64 year old male admitted with CHF, PNA with [facility] concerns. Has lost 11 lbs since last admission in April 2020 (-9%) which is significant and of concern. BMI on low end of normal. Miguel reports depression since his last year. Currently on Heart Healthy diet with >75% meal completion. Estimated Needs: 5433-5275 kcal, 50-60 g protein. Meeting 100% nutrient and fluid needs by mouth at this time. Expect slow weight regain. Skin intact, missing teeth but tolerating regular meal plan. NUTRITIONAL DIAGNOSIS: Moderate malnutrition as evidenced by significant weight loss in last 30 days INTERVENTION: Heart healthy diet as ordered providing 1800 kcal, 60 g protein MONITORING AND EVALUATION: weight, po intake, labs Time Spent in Nutritional Counseling and Treatment: 15 min face to face
[2020-05-14] MEDS: Acetaminophen 325 MG TAB PO ×2 (09:35→20:52)
[2020-05-14] MEDS: Albuterol HFA 8 GM 60 PUFF INH IH ×4 (09:41→20:45)
--- NOTE | 2020-05-14 14:07 | PT.INTREAT ---
Date of service: 05/14/20 Time of Service: 14:07 PT Notes Visit Reasons: BILAT LWR LOBE PNEUMONIA,TACHYCARDIA,FATIGUE Inpatient Physical Therapy Treatment Note [facility] Date: 05/14/20 PRECAUTIONS: Fall SUBJECTIVE: Miguel is pleasant and agreeable to participating in PT. He reports that he feels close to his functional baseline. OBJECTIVE: PAIN: Patient c/o L knee pain with ther ex BED MOBILITY/TRANSFERS Sit-supine: SBA with HOB flat Sit-stand: CGA Stand-sit: CGA Bed-Chair: CGA Chair-bed: CGA GAIT Assistive Device: FWW Weight bearing: Full Assist: CGA Distance: 120' Deviation: Knee brace L, AFO L, swing through, slow joe THEREX: Patient completed a BLE strengthening program, in various positions, as per flow sheet. ASSESSMENT: Patient tolerated session with c/o increased L knee pain with ther ex. He was able to tolerate a progression in gait distance FWW support and CGA. Patient would benefit from continued global strengthening for improved mobility. PLAN: Continue with PT's POC TREATMENT CODE/TIME: 30 minutes; 15428, [id number]
--- NOTE | 2020-05-14 14:53 | W.PM.PROGNOT ---
Date of Service Date of service: 05/14/20 Time of Service: 14:53 Assessment and Plan Assessment and plan (1) Atrial flutter: Status: Chronic Assessment and plan: A. fib rate is under variable control. At rest his heart rates in the 90s to low 100s but with activity he will get up into the 110s to 120. I meant up his dose of his Lopressor to 12.5 mg p.o. 4 times daily. Continue with digoxin 0.25 mg daily. Continue with apixaban as at home. Qualifiers: Atrial flutter type: unspecified Qualified Code(s): I48.92 - Unspecified atrial flutter (2) Acute on chronic systolic heart failure: Status: Acute Assessment and plan: Blood pressures have been soft running in the low to mid 90s therefore we have held any further diuretics. His Imdur had to be held this morning. His intake and output is net -1800 mL. His weight is currently 54 kg. I will continue to hold his diuretics for now while we adjust his other medications for his atrial fibrillation and atrial flutter. (3) Ischemic cardiomyopathy: Status: Acute Assessment and plan: All of his troponin levels have been negative therefore effectively ruling out an acute myocardial infarction. He just had an echocardiogram about a month ago so I am not going to repeat it at this time since we can explain his acute exacerbation of CHF due to a flareup of his atrial flutter/atrial fibrillation rate. Continue adjustment of his Lopressor and his diuretics. Continue Plavix and apixaban. He is on low-dose Imdur 20 mg twice a day for ischemic heart disease. I think because of his low blood pressure readings he has been intolerant of an FEDERICO inhibitor or ARB. Tomorrow we will try to add a low-dose spironolactone to his Lasix regimen. (4) COPD (chronic obstructive pulmonary disease): Status: Chronic Assessment and plan: Continue Asmanex. Can use Atrovent on a as needed basis. (5) DVT prophylaxis: Status: Acute Assessment and plan: Currently anticoagulated with apixaban for his atrial fibrillation/atrial flutter (6) Discharge planning issues: Status: Acute Assessment and plan: Patient lives with his son and intends to return home to his son upon discharge. Subjective Subjective Interval history since last seen: Patient denies any chest pain or dizziness or dyspnea. Exam Narrative Exam Narrative: Middle-age male lying in the bed in semi-sapp position in no respiratory distress. He is able to talk in complete sentences he is alert and oriented person place time circumstance. Lungs reveal bibasilar rales no rhonchi or wheezing upper lung trujillo are clear. Heart is irregular slightly tachycardic Abdomen soft and nontender normal bowel sounds. Extremities without peripheral cyanosis or edema. Objective Objective Clinical Data: Abnormal lab results 05/14/20 Range/Units 06:20 NT-Pro-B Natriuret Pep 1957 H (<300) pg/mL Vital Signs Temperature 36.5 C 05/14/20 09:23 Temperature Source Temporal Artery Scan 05/14/20 09:23 Pulse 123 H 05/14/20 10:04 Pulse Rhythm Irregular 05/14/20 09:23 Pulse 113 H 05/14/20 10:04 Respiratory Rate 14 05/14/20 10:04 Respiratory Effort 05/14/20 09:23 Respiratory Depth Normal 05/14/20 09:23 Respiratory Pattern Normal 05/14/20 09:23 Blood Pressure 104/76 05/14/20 10:04 Blood Pressure Mean 83 05/14/20 10:04 Blood Pressure Position Supine 05/13/20 00:35 Pulse Oximetry 97 05/14/20 10:04 Oxygen Delivery Method Room Air 05/14/20 09:23 Oxygen Flow Rate 0 05/14/20 09:23 Pain Level 8 05/14/20 09:35 Comment 05/14/20 09:23 Intake & Output 05/13/20 05/14/20 05/14/20 23:59 11:59 23:59 Intake Total 250 / 1570 60 / 60 Output Total 2525 / 3200 850 / 850 Balance -2275 / -1630 -790 / -790 Intake: IV 10 1009 Oral 240 / 560 60 / 60 Output: Urine 2525 / 3200 850 / 850 Other: Urine Color Pale Yellow Yellow Urine Appearance Clear Clear Urine Odor None Normal Stool Size Large Stool Characteristics Formed Voiding Methods Urinal Urinal Laboratory Results WBC 7.50 k/cumm (4.4-10.8) 05/13/20 06:25 RBC 4.01 m/cumm (4.50-6.00) L 05/13/20 06:25 Hgb 11.4 g/dL (13.5-17.5) L 05/13/20 06:25 Hct 35.3 % (40.0-50.0) L 05/13/20 06:25 MCV 88.0 fL (80-95) 05/13/20 06:25 MCH 28.4 pg (27.0-33.0) 05/13/20 06:25 MCHC 32.3 g/dL (32.0-36.0) 05/13/20 06:25 RDW 14.0 % (11.8-14.1) 05/13/20 06:25 Plt Count 140 x1000/uL (130-400) 05/13/20 06:25 MPV 10.2 fL (8.0-11.0) 05/13/20 06:25 Immature Gran % 0.2 % 05/12/20 18:22 Neutrophils % 62.6 05/12/20 18:22 Lymphocytes % 19.9 05/12/20 18:22 Monocytes % 12.3 05/12/20 18:22 Eosinophils % 4.4 05/12/20 18:22 Basophils % 0.6 05/12/20 18:22 Absolute Neutrophils 4.12 k/cumm (1.2-6.7) 05/12/20 18:22 Absolute Lymphocytes 1.31 k/cumm (1.2-3.4) 05/12/20 18:22 Absolute Monocytes 0.81 k/cumm (0.11-0.7) H 05/12/20 18:22 Absolute Eosinophils 0.29 k/cumm (0.0-0.7) 05/12/20 18: Absolute Basophils 0.04 k/cumm (0.0-0.2) 05/12/20 18:22 PT 10.1 sec (9.3-11.0) 05/12/20 18:22 INR 1.0 (0.9-1.1) 05/12/20 18:22 APTT 20.4 sec (21.0-31.4) L 05/12/20 18:22 Sodium 141 mmol/L (136-145) 05/14/20 06:20 Potassium 4.2 mmol/L (3.5-5.1) 05/14/20 06:20 Chloride 104 mmol/L (98-107) 05/14/20 06:20 Carbon Dioxide 30.9 mmol/L (21.0-32.0) 05/14/20 06:20 Anion Gap 6.1 mmol/L (3-11) 05/14/20 06:20 BUN 15 mg/dL (7-18) 05/14/20 06:20 Creatinine 0.99 mg/dL (0.70-1.30) 05/14/20 06:20 Estimated GFR/1.73 m2 >= 60.00 (mL/min/1.73m2) 05/14/20 06:20 Glucose 98 mg/dL (74-106) 05/14/20 06:20 Calcium 9.1 mg/dL (8.5-10.1) 05/14/20 06:20 Magnesium 2.1 mg/dL (1.8-2.4) 05/12/20 18:22 Total Bilirubin 0.5 mg/dL (0.2-1.0) 05/13/20 06:25 AST 16 U/L (15-37) 05/13/20 06:25 ALT 15 U/L (16-63) L 05/13/20 06:25 Alkaline Phosphatase 231 U/L (46-116) H 05/13/20 06:25 Troponin I < 0.05 ng/mL (<0.06) 05/13/20 06:25 NT-Pro-B Natriuret Pep 1957 pg/mL (<300) H 05/14/20 06:20 Total Protein 5.8 g/dL (6.4-8.2) L 05/13/20 06:25 Albumin 2.9 g/dL (3.4-5.0) L 05/13/20 06:25 Procalcitonin < 0.1 ng/mL 05/13/20 06:25 TSH 0.54 uIU/mL (0.36-3.74) 05/12/20 18:22 Urine Color Yellow (Yellow) 05/12/20 19:35 Urine Clarity Clear (Clear) 05/12/20 19:35 Urine pH 6.0 (5-8) 05/12/20 19:35 Ur Specific [place] 1.025 (1.005-1.025) 05/12/20 19:35 Urine Protein Negative mg/dL (Negative) 05/12/20 19:35 Urine Ketones Negative mg/dL (Negative) 05/12/20 19:35 Urine Blood Moderate (Negative) H 05/12/20 19:35 Urine Nitrite Negative (Negative) 05/12/20 19:35 Urine Bilirubin Negative (Negative) 05/12/20 19:35 Urine Urobilinogen 1.0 EU/dL (Up TO 0.2) H 05/12/20 19:35 Ur Leukocyte Esterase Negative (Negative) 05/12/20 19:35 Urine RBC >50 HPF (0-2) H 05/12/20 19:35 Urine WBC Negative HPF (0-5) 05/12/20 19:35 Ur Epithelial Cells Negative HPF (Negative) 05/12/20 19:35 Urine Crystals Negative HPF (Negative) 05/12/20 19:35 Urine Bacteria Negative HPF (Negative) 05/12/20 19:35 Urine Mucus Moderate (Negative) 05/12/20 19:35 Ur Culture Indicated? No 05/12/20 19:35 Urine Glucose Negative mg/dL (Negative) 05/12/20 19:35 Digoxin Cancelled 05/13/20 05:35 COVID-19 PCR Negative (Negative) 05/12/20 21:15 Nasopharyn COVID-19 PCR Not Applicable 05/12/20 21:15 Ref Test [facility] 05/12/20 21:15
--- NOTE | 2020-05-14 15:51 | CHAPLAIN ---
I visited with Miguel yesterday and today. He said he may go home tomorrow. He lives with his son Marciano. Miguel's Evita eight months ago after years of declining health. Miguel has since developed a relationship with a woman named Paris. Miguel is a member of [facility] [employer], and very connected socially to members there. He gave me permission to let his outpatient physical therapist, Rev. Danielle Pandey know that he is here and keep her updated, which I've done.
[2020-05-14] MEDS: Isosorbide Dinitrate 10 MG TAB 20 MG PO (20:38)
[2020-05-14] MEDS: Atorvastatin 40 MG TAB PO (20:43)
[2020-05-14] MEDS: Mometasone 220 MCG 14 DOSE INHALER 1 PUFF IH (20:46)
[2020-05-14] MEDS: Tamsulosin 0.4 MG CAPCR PO (21:11)
[2020-05-15] VITALS (8 sets, daily range): BP systolic 100–120; BP diastolic 64–78; PULSE 67–129; RESP 14–18; TEMP 35.5–37; O2SAT 94–99
[2020-05-15] MEDS: Albuterol HFA 8 GM 60 PUFF INH IH ×4 (07:54→20:16)
[2020-05-15] MEDS: Normal Saline Flush 10 ML SYR IVP ×2 (08:11→20:17)
[2020-05-15] MEDS: Digoxin 0.125 MG TAB 0.25 MG PO (08:11)
[2020-05-15] MEDS: lamoTRIgine 100 MG TAB PO ×2 (08:11→20:11)
[2020-05-15] MEDS: Gabapentin 600 MG TAB PO ×4 (08:12→20:10)
[2020-05-15] MEDS: Spironolactone 25 MG TAB PO (08:12)
[2020-05-15] MEDS: Magnesium Oxide 400 MG TAB PO (08:12)
[2020-05-15] MEDS: diazePAM 2 MG TAB PO ×2 (08:12→20:10)
[2020-05-15] MEDS: Apixaban 5 MG TAB PO ×2 (08:12→20:11)
[2020-05-15] MEDS: Clopidogrel 75 MG TAB PO (08:12)
[2020-05-15] MEDS: Citalopram 20 MG TAB 40 MG PO (08:13)
[2020-05-15] MEDS: Finasteride 5 MG TAB PO (08:13)
[2020-05-15] MEDS: Pantoprazole 40 MG TABCR PO (08:13)
[2020-05-15] MEDS: Isosorbide Dinitrate 10 MG TAB 20 MG PO ×2 (09:24→21:43)
[2020-05-15] MEDS: fentaNYL 75 MCG PATCH TD (09:25)
[2020-05-15 09:29] LABS: Anion Gap 7.2 mmol/L (3-11); BUN 17 mg/dL (7-18); CO2 28.8 mmol/L (21.0-32.0); CREATININE 1.06 mg/dL (0.70-1.30); Calcium 9.2 mg/dL (8.5-10.1); Chloride 104 mmol/L (98-107); Glucose 95 mg/dL (74-106); NT-proBNP 1608 pg/mL (<300); Potassium 4.5 mmol/L (3.5-5.1); Sodium 140 mmol/L (136-145)
[2020-05-15 09:44] LABS: Digoxin 0.72 ng/mL (0.90-2.00)
[2020-05-15] MEDS: Acetaminophen 325 MG TAB PO ×2 (10:26→15:38)
--- NOTE | 2020-05-15 11:07 | PDOC.CMPRO ---
- If Service Date Differs Date of service: 05/15/20 Time of Service: 11:07 Care Management Progress Note S/O:Miguel is alert, he is ambulating with PT during CM assessment. He continues have elevated HR and hypotension. Hospitalist is adjusting his beta duarte, Miguel is not ready for discharge at this time and remains on telemetry. A:Miguel is a 64 year old male admitted with Lower lobe pneumonia, tachycardia, fatigue P:Miguel will be discharged home when medically ready he will need resumption of home health including nursing, PT and OT. CM will continue to assess for ongoing discharged needs. Miguel will transport home with his son Marciano at time of discharge.
--- NOTE | 2020-05-15 12:29 | PT.INTREAT ---
Date of service: 05/15/20 Time of Service: 12:30 PT Notes Visit Reasons: BILAT LWR LOBE PNEUMONIA,TACHYCARDIA,FATIGUE Inpatient Physical Therapy Treatment Note [facility] Date: 05/15/20 PRECAUTIONS: Fall SUBJECTIVE: Miguel reports that he really wants to go home. He states that he feels tired this morning, however, he is agreeable to participating in PT. OBJECTIVE: PAIN: Patient c/o L ankle pain following gait training BED MOBILITY/TRANSFERS Supine-sit: I with HOB flat Sit-stand: SBA Stand-sit: SBA Bed-Chair: SBA Chair-bed: SBA GAIT Assistive Device: FWW Weight bearing: Full Assist: SBA Distance: 200' x2 in a.m.; 450' in p.m. Deviation: Required seated rests t/o due to increased HR (per nsg), knee brace L, AFO L, swing through, slow joe in both a.m. and p.m. ASSESSMENT: Patient tolerated session with c/o increased L ankle pain with gait training in a.m. He was able to tolerate a progression in gait distance FWW support and SBA. Patient would benefit from continued global strengthening for improved mobility. PLAN: Continue with PT's POC TREATMENT CODE/TIME: Session 1: 25 minutes; [id number] x2 Session 2: 25 minutes; [id number]
--- NOTE | 2020-05-15 13:58 | PGE_ITS ---
Date of Service Date of service: 05/15/20 Time of Service: 13:59 Assessment and Plan Assessment and plan (1) Atrial flutter: Status: Chronic Assessment and plan: Convert Lopressor 12.5 mg p.o. every 8 hours over to Toprol-XL 50 mg at at bedtime. Continue digoxin 0.25 mg daily. Continue apixaban 5 mg p.o. twice daily. Qualifiers: Atrial flutter type: unspecified Qualified Code(s): I48.92 - Unspecified atrial flutter (2) Acute on chronic systolic heart failure: Status: Acute Assessment and plan: Continue home dose of Imdur 20 mg p.o. twice daily. Continue digoxin 0.25 mg p.o. daily. Spironolactone 25 mg daily was added today. I do not think he needs a loop diuretic at this time. He appears to be euvolemic. (3) Ischemic cardiomyopathy: Status: Acute Assessment and plan: As above. (4) COPD (chronic obstructive pulmonary disease): Status: Chronic Assessment and plan: Continue Asmanex. Can use Atrovent on a as needed basis. (5) DVT prophylaxis: Status: Acute Assessment and plan: Currently anticoagulated with apixaban for his atrial fibrillation/atrial flutter (6) Discharge planning issues: Status: Acute Assessment and plan: Patient lives with his son and intends to return home to his son upon discharge. Subjective Subjective Interval history since last seen: Patient denies any chest pain or palpitations or dizziness. Atrial fibrillation rate overall is coming under improved control. At rest his heart rates in the 90s however with activity he will get up into the 120s and even as high as 140. He is complaining some left ankle pain. 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 I am going to convert his short acting Lopressor over to Toprol-XL 50 mg at night and continue his digoxin 0.25 mg p.o. daily. He remains on apixaban for anticoagulation. I added Spironolactone to his regimen to treat his CHF. Exam Narrative Exam Narrative: Thin middle-age male who appears to be older than his stated age. He is alert and oriented person place and time circumstance. Lungs are clear to auscultation anteriorly posterior there are some faint basilar rales no rhonchi or wheezes. Heart is irregularly irregular and slightly tachycardic Extremities without peripheral cyanosis or edema. Objective Objective Clinical Data: Abnormal lab results 05/15/20 Range/Units 08:28 NT-Pro-B Natriuret Pep 1608 H (<300) pg/mL Digoxin 0.72 L (0.90-2.00) ng/mL Vital Signs Temperature 37.0 C 05/15/20 12:26 Temperature Source Tympanic 05/15/20 12:26 Pulse 129 H 05/15/20 12:26 Pulse Rhythm Irregular 05/15/20 07:29 Pulse 110 H 05/14/20 13:49 Respiratory Rate 14 05/15/20 12:26 Respiratory Effort 05/15/20 07:29 Respiratory Depth Normal 05/15/20 07:29 Respiratory Pattern Normal 05/15/20 07:29 Blood Pressure 100/64 05/15/20 12:26 Blood Pressure Mean 72 05/14/20 13:49 Blood Pressure Position Supine 05/13/20 00:35 Pulse Oximetry 98 05/15/20 12:26 Oxygen Delivery Method Room Air 05/15/20 12:26 Oxygen Flow Rate 0 05/15/20 12:26 Pain Level 10 05/15/20 12:26 Comment 05/14/20 09:23 Intake & Output 05/14/20 05/15/20 05/15/20 23:59 11:59 23:59 Intake Total 490 / 550 800 / 1280 480 / 1280 Output Total 425 / 1275 700 / 700 Balance 65 / -725 100 / 580 480 / 580 Intake: IV 250 / 250 10 / 10 Oral 240 / 300 790 / 1270 480 / 1270 Output: Urine 425 / 1275 700 / 700 Other: Urine Color Yellow Yellow Urine Appearance Clear Clear Urine Odor Normal Comment Void x1 in the toilet. Stool Size Moderate Stool Characteristics Soft Formed Brown Voiding Methods Urinal Toilet Laboratory Results WBC 7.50 k/cumm (4.4-10.8) 05/13/20 06:25 RBC 4.01 m/cumm (4.50-6.00) L 05/13/20 06:25 Hgb 11.4 g/dL (13.5-17.5) L 05/13/20 06:25 Hct 35.3 % (40.0-50.0) L 05/13/20 06:25 MCV 88.0 fL (80-95) 05/13/20 06:25 MCH 28.4 pg (27.0-33.0) 05/13/20 06:25 MCHC 32.3 g/dL (32.0-36.0) 05/13/20 06:25 RDW 14.0 % (11.8-14.1) 05/13/20 06:25 Plt Count 140 x1000/uL (130-400) 05/13/20 06:25 MPV 10.2 fL (8.0-11.0) 05/13/20 06:25 Immature Gran % 0.2 % 05/12/20 18:22 Neutrophils % 62.6 05/12/20 18:22 Lymphocytes % 19.9 05/12/20 18:22 Monocytes % 12.3 05/12/20 18:22 Eosinophils % 4.4 05/12/20 18:22 Basophils % 0.6 05/12/20 18:22 Absolute Neutrophils 4.12 k/cumm (1.2-6.7) 05/12/20 18:22 Absolute Lymphocytes 1.31 k/cumm (1.2-3.4) 05/12/20 18:22 Absolute Monocytes 0.81 k/cumm (0.11-0.7) H 05/12/20 18:22 Absolute Eosinophils 0.29 k/cumm (0.0-0.7) 05/12/20 18: Absolute Basophils 0.04 k/cumm (0.0-0.2) 05/12/20 18:22 PT 10.1 sec (9.3-11.0) 05/12/20 18:22 INR 1.0 (0.9-1.1) 05/12/20 18:22 APTT 20.4 sec (21.0-31.4) L 05/12/20 18:22 Sodium 140 mmol/L (136-145) 05/15/20 08:28 Potassium 4.5 mmol/L (3.5-5.1) 05/15/20 08:28 Chloride 104 mmol/L (98-107) 05/15/20 08:28 Carbon Dioxide 28.8 mmol/L (21.0-32.0) 05/15/20 08:28 Anion Gap 7.2 mmol/L (3-11) 05/15/20 08:28 BUN 17 mg/dL (7-18) 05/15/20 08:28 Creatinine 1.06 mg/dL (0.70-1.30) 05/15/20 08:28 Estimated GFR/1.73 m2 >= 60.00 (mL/min/1.73m2) 05/15/20 08:28 Glucose 95 mg/dL (74-106) 05/15/20 08:28 Calcium 9.2 mg/dL (8.5-10.1) 05/15/20 08:28 Magnesium 2.1 mg/dL (1.8-2.4) 05/12/20 18:22 Total Bilirubin 0.5 mg/dL (0.2-1.0) 05/13/20 06:25 AST 16 U/L (15-37) 05/13/20 06:25 ALT 15 U/L (16-63) L 05/13/20 06:25 Alkaline Phosphatase 231 U/L (46-116) H 05/13/20 06:25 Troponin I < 0.05 ng/mL (<0.06) 05/13/20 06:25 NT-Pro-B Natriuret Pep 1608 pg/mL (<300) H 05/15/20 08:28 Total Protein 5.8 g/dL (6.4-8.2) L 05/13/20 06:25 Albumin 2.9 g/dL (3.4-5.0) L 05/13/20 06:25 Procalcitonin < 0.1 ng/mL 05/13/20 06:25 TSH 0.54 uIU/mL (0.36-3.74) 05/12/20 18:22 Urine Color Yellow (Yellow) 05/12/20 19:35 Urine Clarity Clear (Clear) 05/12/20 19:35 Urine pH 6.0 (5-8) 05/12/20 19:35 Ur Specific [place] 1.025 (1.005-1.025) 05/12/20 19:35 Urine Protein Negative mg/dL (Negative) 05/12/20 19:35 Urine Ketones Negative mg/dL (Negative) 05/12/20 19:35 Urine Blood Moderate (Negative) H 05/12/20 19:35 Urine Nitrite Negative (Negative) 05/12/20 19:35 Urine Bilirubin Negative (Negative) 05/12/20 19:35 Urine Urobilinogen 1.0 EU/dL (Up TO 0.2) H 05/12/20 19:35 Ur Leukocyte Esterase Negative (Negative) 05/12/20 19:35 Urine RBC >50 HPF (0-2) H 05/12/20 19:35 Urine WBC Negative HPF (0-5) 05/12/20 19:35 Ur Epithelial Cells Negative HPF (Negative) 05/12/20 19:35 Urine Crystals Negative HPF (Negative) 05/12/20 19:35 Urine Bacteria Negative HPF (Negative) 05/12/20 19:35 Urine Mucus Moderate (Negative) 05/12/20 19:35 Ur Culture Indicated? No 05/12/20 19:35 Urine Glucose Negative mg/dL (Negative) 05/12/20 19:35 Digoxin 0.72 ng/mL (0.90-2.00) L 05/15/20 08:28 COVID-19 PCR Negative (Negative) 05/12/20 21:15 Nasopharyn COVID-19 PCR Not Applicable 05/12/20 21:15 Ref Test Perform Site [place] [facility] 05/12/20 21:15
[2020-05-15] MEDS: traMADol 50 MG TAB PO ×2 (17:36→21:49)
[2020-05-15] MEDS: Metoprolol 12.5 MG TAB PO (17:36)
[2020-05-15] MEDS: Mometasone 220 MCG 14 DOSE INHALER 1 PUFF IH (20:09)
[2020-05-15] MEDS: Atorvastatin 40 MG TAB PO (20:10)
[2020-05-15] MEDS: Metoprolol CR 50 MG TABCR PO (21:44)
[2020-05-15] MEDS: Tamsulosin 0.4 MG CAPCR PO (21:45)
[2020-05-16 03:30] VITALS: BP 105/72; PULSE 56; RESP 16; TEMP 36.5; O2SAT 96
[2020-05-16 07:05] VITALS: BP 103/71; PULSE 64; RESP 20; TEMP 36.7; O2SAT 96
[2020-05-16] MEDS: Albuterol HFA 8 GM 60 PUFF INH IH ×2 (08:28→11:34)
[2020-05-16] MEDS: Normal Saline Flush 10 ML SYR IVP (08:41)
[2020-05-16] MEDS: Isosorbide Dinitrate 10 MG TAB 20 MG PO (08:42)
[2020-05-16] MEDS: Gabapentin 600 MG TAB PO ×2 (08:42→11:49)
[2020-05-16] MEDS: Citalopram 20 MG TAB 40 MG PO (08:42)
[2020-05-16] MEDS: Apixaban 5 MG TAB PO (08:42)
[2020-05-16] MEDS: diazePAM 2 MG TAB PO (08:42)
[2020-05-16] MEDS: lamoTRIgine 100 MG TAB PO (08:43)
[2020-05-16] MEDS: Pantoprazole 40 MG TABCR PO (08:43)
[2020-05-16] MEDS: Magnesium Oxide 400 MG TAB PO (08:43)
[2020-05-16] MEDS: Clopidogrel 75 MG TAB PO (08:43)
[2020-05-16] MEDS: Spironolactone 25 MG TAB PO (08:43)
[2020-05-16] MEDS: Finasteride 5 MG TAB PO (08:44)
[2020-05-16 08:45] VITALS: PULSE 66
[2020-05-16] MEDS: Digoxin 0.125 MG TAB 0.25 MG PO (08:45)
--- NOTE | 2020-05-16 09:20 | PTTR_ITS ---
Date of service: 05/16/20 Time of Service: 09:20 PT Notes Visit Reasons: BILAT LWR LOBE PNEUMONIA,TACHYCARDIA,FATIGUE Inpatient Physical Therapy Treatment Note [facility] Date: 05/16/20 PRECAUTIONS: Fall. Standard. Activity as tolerated. L AFO and L hinged brace on when out of bed. SUBJECTIVE: Miguel slept through the night very well, I did not have any pain last night!. He reports 4/10 pain in his L knee with walking. He states that t he brace has really helped with maming his knee feel stable. OBJECTIVE: General observation: Telemetry monitoring in place PAIN: 4/10 pain in L knee with ambulation BED MOBILITY/TRANSFERS Supine-sit: I with HOB flat Sit-stand: S Stand-sit: S Bed-Chair: S Chair-bed: S GAIT Assistive Device: FWW Weight bearing: Full Assist: SBA Distance: 520 feet Deviation: 1 seated rest. No LOB, no L knee buckling. Step-through gait pattern. Improved step height and length on L. Laura increasing. Minimal circumduction seen on L LE towards the end of walking activity. ASSESSMENT: Gait pattern very much improved compared to last admission. Pain level much more reduced allowing for increased activity tolerance. PLAN: Recommend D/C to SNF for long-term placement for assistance with med management, meals, laundry, and continued skilled PT. Patient has not been able to thrive at home previously. Prescription for orthotic reassessment needed. TREATMENT CODE/TIME: 96118 x 27 minutes beginning at 9:20 AM.
[2020-05-16] MEDS: traMADol 50 MG TAB PO (11:02)
[2020-05-16 11:15] VITALS: BP 100/63; PULSE 68; RESP 17; TEMP 36.8; O2SAT 97
--- NOTE | 2020-05-16 12:29 | PDOC.CMDIS ---
- If Service Date Differs Date of service: 05/16/20 Time of Service: 12:29 LACE Index Scoring Tool - Questions: Length of Stay (in days): 4 - 6 Acuity (Admit via E.D.?): Yes Comorbidities: Cerebrovascular Disease, Congestive Heart Failure E.D. Visits: 12 - Answers: Total Score: 14 Risk of Readmission: High Risk Care Management Discharge Reason for Hospitalization: Lower lobe pneumonia, tachycardia, fatigue Discharge Plan: Miguel will be discharged home today, he will have a resumption of home health services of nursing and PT, CM has requested increase of OT and CUSTODIAL OPERATIONS MANAGER. Miguel will need to follow up with his primary care and continue with palliative care. His next scheduled visit with Aissatou Briggs is 06/10/20. CM coordinated RCT and contacted home health notification of discharge. Patient/Family Education Needs: Discharge edcuation, limitations and follow up plan of care including ask me three and self management. Services Needed at Discharge: Home Health Care Services, Occupational Therapy, Physical Therapy, Transportation
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
--- NOTE | 2020-05-16 14:31 | CHAPLAIN ---
Miguel said he is being discharged today, and a cousin from [place] is coming to live with him and take care of him. His son, Marciano, has started a new job delivering medication, based out of [place], so he is thinking of moving to the [place] area soon. This living arrangement will all be new to Miguel, as he's is the one who provided care for his Evita, who a few years ago.
--- NOTE | 2020-05-16 15:24 | PT.INTREAT ---
Date of service: 05/16/20 Time of Service: 15:25 PT Notes Visit Reasons: Atrial fibrillation with RVR Inpatient Physical Therapy Treatment Note [facility] Date: 05/16/2020 SUBJECTIVE: Miguel offered no complaints this pm. He states that he is going home but needs to find a ride. Apparently he lost a phone number that he was to call. OBJECTIVE: [] BED MOBILITY/TRANSFERS Sit-stand: S Stand-sit: S GAIT Assistive Device: FWW Weight bearing: full Assist:SBA Distance: 300' Deviation: cues to take longer strides. THEREX: global LE strengthening, see flowsheet for details. ASSESSMENT: tolerated session well this pm. He is looking forward to going home. college or university business manager is helping him contact [facility] to get home. PLAN: d/c to home. TREATMENT CODE/TIME: 25 min. [id number], [id number].
[2020-05-16 15:55] VITALS: BP 103/69; PULSE 80; RESP 17; TEMP 35.9; O2SAT 97
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
== END 2020-05-16 16:14 | disposition home health service (06) | DRG 292 ==
LOC: ER 20:40 → ICU 05-13 12:36 → MS 05-16 13:27 → ICU 05-20 13:20 → MS 05-20 13:21
PROVIDERS: Internal Medicine; Physician Assistant; Admitting Provider Family Medicine; Emergency Provider Student in an Organized Health Care Education/Training Program; PCP Nurse Practitioner; Visit Provider Family Medicine
DX: I11.0 Hypertensive heart disease with heart failure (principal); I48.92 Unspecified atrial flutter; R56.1 Post traumatic seizures; J98.11 Atelectasis; I69.354 Hemiplegia and hemiparesis following cerebral infarction affecting left non-dominant side; I50.23 Acute on chronic systolic (congestive) heart failure; R53.82 Chronic fatigue, unspecified; F43.23 Adjustment disorder with mixed anxiety and depressed mood; J45.909 Unspecified asthma, uncomplicated; I25.10 Atherosclerotic heart disease of native coronary artery without angina pectoris; M48.02 Spinal stenosis, cervical region; G89.0 Central pain syndrome; M54.5 Low back pain; J44.9 Chronic obstructive pulmonary disease, unspecified; I25.2 Old myocardial infarction; R13.12 Dysphagia, oropharyngeal phase; M19.90 Unspecified osteoarthritis, unspecified site; Z86.711 Personal history of pulmonary embolism; Z91.419 Personal history of unspecified adult abuse; E53.8 Deficiency of other specified B group vitamins; Z99.3 Dependence on wheelchair; I25.5 Ischemic cardiomyopathy; D64.9 Anemia, unspecified; I48.91 Unspecified atrial fibrillation
CPT/HCPCS: 36415; 71275; 74177; 80048; 80053; 84145; 85027; 93005; 94640; 96361; 96365; 96367; 97110; 97162; 97530; 99220; 99233; 99239; 99285; U0003; 70450; 80162; 81003; 81015; 83735; 83880; 84443; 84484; 85025; 85610; 85730; 87070; 87205; 93010; G0378; J1940; J3490

== ENCOUNTER 2020-05-24 16:19 | Outpatient (REF) | payer MEDICARE, SELFPAY ==
[2020-05-24 17:02] LABS: HCT 41.9 % (40.0-50.0); Mean Corp. HGB Concentration 33.4 g/dL (32.0-36.0); Mean Corpuscular Hemoglobin 28.5 pg (27.0-33.0); Mean Corpuscular Volume 85.3 fL (80-95); Mean Platelet Volume 9.9 fL (8.0-11.0); Platelet Count 220 x1000/uL (130-400); RBC 4.91 m/cumm (4.50-6.00); RBC Distribution Width 14.5 % (11.8-14.1); White Blood Cell Count 6.97 k/cumm (4.4-10.8)
[2020-05-24 17:06] LABS: Bilirubin Negative (Negative); Blood Moderate (Negative); Clarity Clear (Clear); Glucose Negative (Negative); Ketones Negative (Negative); Leukocyte Esterase Negative (Negative); Nitrite Negative (Negative); Specific Gravity >= 1.030 (1.005-1.025); Urobilinogen 0.2 EU/dL (Up TO 0.2)
[2020-05-24 17:16] LABS: Bacteria Negative HPF (Negative); Crystals Negative HPF (Negative); Epithelial Cells Few HPF (Negative); Mucus Negative (Negative); WBC 0-2 HPF (0-5)
[2020-05-24 17:17] LABS: C & S Indicated? No; Casts 0-2 Hyaline LPF (Negative)
[2020-05-24 17:19] LABS: Calcium 9.1 mg/dL (8.5-10.1)
[2020-05-24 17:20] LABS: ALT 25 U/L (16-63); AST 14 U/L (15-37); Albumin 3.7 g/dL (3.4-5.0); Alkaline Phosphatase 183 U/L (46-116); Anion Gap 11.3 mmol/L (3-11); BUN 12 mg/dL (7-18); Bilirubin, Total 0.3 mg/dL (0.2-1.0); CO2 23.7 mmol/L (21.0-32.0); CREATININE 0.94 mg/dL (0.70-1.30); Chloride 109 mmol/L (98-107); Digoxin 1.29 ng/mL (0.90-2.00); Glucose 89 mg/dL (74-106); Potassium 4.3 mmol/L (3.5-5.1); Sodium 144 mmol/L (136-145); Total Protein 6.1 g/dL (6.4-8.2)
== END 2020-05-24 16:39 ==
LOC: LBN 16:19
PROVIDERS: PCP Nurse Practitioner; Visit Provider Nurse Practitioner
DX: D69.6 Thrombocytopenia, unspecified; I48.92 Unspecified atrial flutter; I95.9 Hypotension, unspecified; R50.9 Fever, unspecified; Z51.81 Encounter for therapeutic drug level monitoring; R33.9 Retention of urine, unspecified; I48.20 Chronic atrial fibrillation, unspecified; I10 Essential (primary) hypertension
CPT/HCPCS: 80053; 85027; 80162; 81003; 81015

== ENCOUNTER 2020-05-31 12:03 | Emergency (ER) | payer MEDICARE, MEDICAID, SELFPAY ==
[2020-05-31] VITALS (77 sets, daily range): BP systolic 102–152; BP diastolic 52–105; PULSE 50–75; RESP 8–27; TEMP 37.1; O2SAT 93–99
--- NOTE | 2020-05-31 12:00 | RT.EKG_ITS ---
APPROVED REPORT Exam: Resting ECG Patient Location: E HR:53 bpm ECG Measurements Heart Rate 53 AXIS NE 157 P 63 QRSd 86 QRS 34 QT 448 T 82 QTc 420 <Conclusion> Sinus bradycardia...rate< 60 Compared to previous EKG, Less than 1mm ST depression in I and II and 1mm ST depression in V3-6, more pronounced compared to previous EKG. No acute ST elevation.
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
[2020-05-31 12:31] LABS: Abs Immature Grans 0.03 10^3/uL (0.0-0.06); Absolute Basophil Count 0.05 10^3/uL (0.0-0.2); Absolute Eosinophil Count 0.26 10^3/uL (0.0-0.7); Absolute Lymphocyte Count 1.54 10^3/uL (1.2-3.4); Absolute Monocyte Count 0.69 10^3/uL (0.1-0.8); Absolute Neutrophil Count 5.79 10^3/uL (1.2-6.7); Basophils % 0.6; Eosinophils % 3.1; HCT 41.3 % (40.0-50.0); HGB 13.7 g/dL (13.5-17.5); Immature Grans % 0.4; Lymphocytes % 18.4; MCH 28.6 pg (27.0-33.0); MCHC 33.2 % (32.0-36.0); MCV 86.2 fL (80-95); MPV 9.9 fL (8.0-11.0); Monocytes % 8.3; Neutrophils % 69.2; Platelet Count 136 10^3/uL (130-400); RBC 4.79 10^6/uL (4.36-5.78); RDW 14.5 % (11.8-14.1); RDW-SD 45.3 fL; WBC 8.36 10^3/uL (4.4-10.8)
[2020-05-31 12:54] LABS: ALT 20 U/L (16-63); AST 16 U/L (15-37); Albumin 3.8 g/dL (3.4-5.0); Alkaline Phosphatase 153 U/L (46-116); Anion Gap 9.9 mmol/L (3-11); BUN 16 mg/dL (7-18); Bilirubin, Total 0.5 mg/dL (0.2-1.0); CO2 26.1 mmol/L (21.0-32.0); CREATININE 1.04 mg/dL (0.70-1.30); Chloride 104 mmol/L (98-107); Glucose 99 mg/dL (74-106); Magnesium 2.1 mg/dL (1.8-2.4); Potassium 4.5 mmol/L (3.5-5.1); Sodium 140 mmol/L (136-145); Total Protein 6.6 g/dL (6.4-8.2)
[2020-05-31 12:55] LABS: Troponin I < 0.05 ng/mL (<0.06)
[2020-05-31] MEDS: Acetaminophen 500 MG TAB PO (13:52)
--- NOTE | 2020-05-31 14:56 | NUR.NOTE ---
Nursing Note: PT refused Nitro orders. PT reports that his pain has improved and would like to hold off on taking the nitro.
--- NOTE | 2020-05-31 15:00 | RT.EKG_ITS ---
APPROVED REPORT Exam: Resting ECG Patient Location: E HR:58 bpm ECG Measurements Heart Rate 58 AXIS MA 150 P 59 QRSd 76 QRS 17 QT 457 T 9 QTc 447 <Conclusion> Sinus bradycardia...rate< 60 Probable inferior infarct, old...Q>35mS, II III aVF. Less than 1mm ST depression noted in I, aVL, V3-6. No acute ST elevation.
--- NOTE | 2020-05-31 15:31 | DI.RAD_ITS ---
EXAM: XR CHEST 2V PA LATERAL CLINICAL HISTORY: Chest pain TECHNIQUE: 2D digital imaging was performed. COMPARISON: CR,XR XR PORTABLE CHEST AP from 04/12/2020 FINDINGS: MEDIASTINUM: Normal. HEART: Normal. PULMONARY VASCULATURE: Normal. LUNGS: Clear. PLEURAL SPACE: No pleural effusion or pneumothorax. BONE:Normal. IMPRESSION: No acute pulmonary findings. DATA REPOSITORY: RADIATION DOSE DELIVERED:
[2020-05-31 15:32] LABS: Troponin I < 0.05 ng/mL (<0.06)
[2020-05-31 15:50] LABS: D-Dimer 724 ng/mlFEU (<500)
--- NOTE | 2020-05-31 16:30 | NUR.NOTE ---
Nursing Note: Nitro infusion verified by two RN's prior to starting infusion.
--- NOTE | 2020-05-31 17:15 | DI.CT_ITS ---
EXAM: CT CHEST PE CTA CLINICAL HISTORY: elevated Ddimer TECHNIQUE: COMPARISON: CT CT CHEST PE ABD PELVIS W from 05/12/2020 FINDINGS: CT angiography of the chest was performed with intravenous infusion of 63 cc of Omnipaque 350. Images obtained through the upper abdomen are unremarkable except for cholelithiasis. There is mild septal prominence and slight ground-glass radiodensities in deep dependent portions of the lungs, question borderline pulmonary edema. No evidence of pulmonary embolic disease. Thoracic aorta is of normal diameter, not ideally opacified to assess for dissection. No mediastinal or hilar adenopathy. Tracheobronchial tree appears intact. IMPRESSION: No evidence of pulmonary embolic disease. Question slight prominence of septal markings and slight g round-glass appearance dependently could represent borderline pulmonary edema, please correlate clini dora.
--- NOTE | 2020-05-31 17:30 | RT.EKG_ITS ---
APPROVED REPORT Exam: Resting ECG Patient Location: E HR:75 bpm ECG Measurements Heart Rate 75 AXIS IN 154 P 65 QRSd 83 QRS 29 QT 487 T [id number] QTc 543 <Conclusion> Sinus rhythm...normal P axis, V-rate 60- 99 Ventricular bigeminy...bigeminy string>4 w/ V complexes Inferior infarct, age indeterminate...Q>35mS, T neg, II III aVF Posterior infarct, acute...ST<-0.1 V1-V3 or ST>.05 V7-V9 Prolonged QT interval...QTc >500mS
--- NOTE | 2020-05-31 18:00 | RT.EKG_ITS ---
APPROVED REPORT Exam: Resting ECG Patient Location: E HR:62 bpm ECG Measurements Heart Rate 62 AXIS CA 156 P 63 QRSd 85 QRS 35 QT 470 T 35 QTc 480 <Conclusion> Sinus rhythm...normal P axis, V-rate 60- [address] depression, anterolateral leads...ST <-0.07mV, I aVL V2-V6. Less than 1mm ST depression in I and II. 2mm ST depression in V3. 1mm ST depression in V4-5.
[2020-05-31] MEDS: Omnipaque 350 MG/ML 100 ML BTL IJ (18:04)
[2020-05-31] MEDS: Normal Saline - Diluent 50 ML VIAL IV (18:05)
--- NOTE | 2020-05-31 18:37 | DI.VRAD_ITS ---
PROCEDURE INFORMATION: Exam: CT Angiography Chest With Contrast Exam date and time: 05/31/2020 5:59 PM Age: 64 years old Clinical indication: Abnormal findings; Abnormal diagnostic tests; Elevated d-dimer; Patient HX: Elevated d dimer TECHNIQUE: Imaging protocol: Computed tomographic angiography of the chest with intravenous contrast. 3D rendering: MIP and/or 3D reconstructed images were created by the technologist. COMPARISON: CT CHEST PE ABD PELVIS W 05/12/2020 7:09 PM FINDINGS: Pulmonary arteries: Normal. No pulmonary emboli. Aorta: Unremarkable. No aortic aneurysm. No aortic dissection. Lungs: Minimal ground-glass appearance of the lungs suggestive of mild edema or infection. Clinically correlate. Pleural space: Unremarkable. No pneumothorax. No pleural effusion. Heart: Unremarkable. No cardiomegaly. No pericardial effusion. Lymph nodes: Unremarkable. No enlarged lymph nodes. Bones/joints: Unremarkable. No acute fracture. Soft tissues: Unremarkable. IMPRESSION: Minimal ground-glass appearance of the lungs suggestive of mild edema or infection. Clinically correlate. No pulmonary embolism. Dictated and Authenticated by: Steff Lobato MD. Ordering:MCKAY Gutierrez MD
[2020-05-31 18:38] LABS: Troponin I < 0.05 ng/mL (<0.06)
--- NOTE | 2020-05-31 19:55 | NUR.NOTE ---
Nursing Note: PT care transferred to Mavis JOSHUA. At the time of transfer the PT is alert and oriented, vitals stable.
--- NOTE | 2020-05-31 19:56 | NUR.NOTE ---
Nursing Note: At nursing hand off, nitro infusion is running at 5mcg/min-1.5mls/hr
== END 2020-05-31 21:35 ==
PROVIDERS: Registered Nurse Emergency; Emergency Provider Physician Assistant; PCP Nurse Practitioner
DX: R07.9 Chest pain, unspecified (principal); R94.31 Abnormal electrocardiogram [ECG] [EKG]; R79.1 Abnormal coagulation profile; R00.8 Other abnormalities of heart beat; I25.10 Atherosclerotic heart disease of native coronary artery without angina pectoris; Z95.5 Presence of coronary angioplasty implant and graft; I11.0 Hypertensive heart disease with heart failure; I50.22 Chronic systolic (congestive) heart failure; J44.9 Chronic obstructive pulmonary disease, unspecified; Z87.891 Personal history of nicotine dependence
CPT/HCPCS: 36415; 71275; 80053; 93005; 96365; 96366; 99291; 71046; 80162; 83735; 84484; 85025; 85379; 93010; J3490

== ENCOUNTER → 2020-06-12 11:14 | Outpatient (BNVA) | payer MEDICARE, MEDICAID, SELFPAY | PROVIDERS: PCP Nurse Practitioner; Referring Provider Nurse Practitioner; Visit Provider Psychiatry & Neurology Neurology | DX: I63.30 Cerebral infarction due to thrombosis of unspecified cerebral artery (principal); G40.909 Epilepsy, unspecified, not intractable, without status epilepticus; Z87.820 Personal history of traumatic brain injury; J44.9 Chronic obstructive pulmonary disease, unspecified; I11.0 Hypertensive heart disease with heart failure; I50.9 Heart failure, unspecified | CPT/HCPCS: 99214 ==

== ENCOUNTER 2020-06-20 12:44 | Inpatient (IN) | payer MEDICARE, MEDICAID, SELFPAY ==
[2020-06-20] VITALS (30 sets, daily range): BP systolic 92–121; BP diastolic 53–76; PULSE 38–78; RESP 8–21; TEMP 35.9–37.1; O2SAT 95–99
--- NOTE | 2020-06-20 12:30 | RT.EKG_ITS ---
APPROVED REPORT Exam: Resting ECG Patient Location: E HR:39 bpm ECG Measurements Heart Rate 39 AXIS NJ 180 P 63 QRSd 88 QRS 56 QT 521 T 30 QTc 423 Conclusion Sinus bradycardia...rate< 60. Less than 1mm ST depression in V4-5, seen in previous. No STEMI
[2020-06-20 13:06] LABS: Abs Immature Grans 0.02 10^3/uL (0.0-0.06); Absolute Basophil Count 0.04 10^3/uL (0.0-0.2); Absolute Lymphocyte Count 1.86 10^3/uL (1.2-3.4); Absolute Monocyte Count 0.51 10^3/uL (0.1-0.8); Absolute Neutrophil Count 3.05 10^3/uL (1.2-6.7); Basophils % 0.7; Eosinophils % 5.2; HGB 12.2 g/dL (13.5-17.5); Immature Grans % 0.3; Lymphocytes % 32.2; MCH 28.8 pg (27.0-33.0); MCHC 32.1 % (32.0-36.0); MCV 89.8 fL (80-95); MPV 9.3 fL (8.0-11.0); Monocytes % 8.8; Neutrophils % 52.8; Nucleated RBC 0 %; Platelet Count 190 10^3/uL (130-400); RBC 4.23 10^6/uL (4.36-5.78); RDW 14.5 % (11.8-14.1); RDW-SD 47.4 fL; WBC 5.78 10^3/uL (4.4-10.8)
--- NOTE | 2020-06-20 13:15 | DI.CT_ITS ---
EXAM: CT HEAD WO CLINICAL HISTORY: weakness, dizziness, r/o acute cva. TECHNIQUE: Imaging Protocol: Axial computed tomography images with coronal and sagittal reformatted images were created and reviewed COMPARISON: CT CT HEAD WO from 05/12/2020 FINDINGS: Ventricles and Extra axial spaces: Normal in size and morphology for the patient's age. Hemorrhage: None. Cerebral parenchyma: Mild atrophy. Mild white matter changes consistent with small vessel disease. Midline shift: None. Brainstem/Cerebellum: Normal. Calvarium: Normal. Visualized Paranasal sinuses/Mastoids: Mild ethmoid mucous retention. IMPRESSION: No acute abnormality. RADIATION DOSE DELIVERED: 673.9mGy.cm Total DLP 673.9mGy.cm Total DLP DATA REPOSITORY: All CT scans at this facility are submitted to the National Radiology Data Registry (NRDR) Dose Index Registry (DIR) with the [employer] ([employer]). RADIATION OPTIMIZATION: All CT scans at this facility use at least one of these dose optimization te chniques: automated exposure control; mA and/or kV adjustment per patient size (includes targeted exa ms where dose is matched to clinical indication); or iterative reconstruction.
--- NOTE | 2020-06-20 13:15 | DI.RAD_ITS ---
EXAM: XR CHEST 2V PA LATERAL CLINICAL HISTORY: dizziness, weakness, r/o acute disease TECHNIQUE: 2D digital imaging was performed. COMPARISON: CR XR CHEST 2V PA LATERAL from 05/31/2020 FINDINGS: Leads overlie the left lower chest. The heart size is normal. The lungs appear clear. No infiltrat e, effusion or pulmonary edema seen. IMPRESSION: No acute pulmonary findings. DATA REPOSITORY: RADIATION DOSE DELIVERED:
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
[2020-06-20 13:33] LABS: INR 1.1 (0.9-1.1); PTT Activated 27.1 sec (21.0-31.4); Prothrombin Time 10.9 sec (9.3-11.0)
[2020-06-20 13:36] LABS: ALT 15 U/L (16-63); AST 11 U/L (15-37); Albumin 3.5 g/dL (3.4-5.0); Alkaline Phosphatase 175 U/L (46-116); Anion Gap 5.5 mmol/L (3-11); BUN 15 mg/dL (7-18); Bilirubin, Total 0.3 mg/dL (0.2-1.0); CO2 30.5 mmol/L (21.0-32.0); CREATININE 1.12 mg/dL (0.70-1.30); Calcium 8.7 mg/dL (8.5-10.1); Chloride 103 mmol/L (98-107); Glucose 96 mg/dL (74-106); Magnesium 1.9 mg/dL (1.8-2.4); Potassium 4.5 mmol/L (3.5-5.1); Sodium 139 mmol/L (136-145); Total Protein 6.6 g/dL (6.4-8.2)
[2020-06-20 13:42] LABS: Troponin I < 0.05 ng/mL (<0.06)
[2020-06-20] MEDS: Normal Saline 500 ML IV (14:28)
[2020-06-20] MEDS: ACETAMINOPHEN 1,000 MG/100 ML BTL 400 MG IVPB (14:28)
[2020-06-20] MEDS: Meclizine 25 MG TAB PO (14:54)
[2020-06-20 16:21] LABS: Bilirubin Negative (Negative); Blood Trace-intact (Negative); Clarity Clear (Clear); Glucose Negative (Negative); Ketones Negative (Negative); Leukocyte Esterase Negative (Negative); Nitrite Negative (Negative); Specific Gravity 1.015 (1.005-1.025); Urobilinogen 0.2 EU/dL (Up TO 0.2)
[2020-06-20 16:28] LABS: Bacteria Negative HPF (Negative); C & S Indicated? No; Casts Negative LPF (Negative); Crystals Negative HPF (Negative); Epithelial Cells Negative HPF (Negative); Mucus Negative (Negative); Other Cells Negative (Negative); RBC 0-2 HPF (0-2); WBC Negative HPF (0-5)
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
[2020-06-20] MEDS: diazePAM 2 MG TAB PO (19:41)
[2020-06-20] MEDS: Apixaban 5 MG TAB PO (19:42)
[2020-06-20] MEDS: lamoTRIgine 100 MG TAB PO (19:42)
[2020-06-20] MEDS: Docusate Sodium 100 MG CAP PO (19:42)
[2020-06-20] MEDS: Atorvastatin 40 MG TAB PO (19:42)
[2020-06-20] MEDS: Gabapentin 600 MG TAB PO (19:43)
[2020-06-20] MEDS: Tamsulosin 0.4 MG CAPCR PO (21:08)
[2020-06-20] MEDS: traMADol 50 MG TAB PO (21:08)
[2020-06-21 03:15] VITALS: BP 121/72; PULSE 47; RESP 18; TEMP 36.6; O2SAT 98
[2020-06-21 06:38] LABS: Abs Immature Grans 0.01 10^3/uL (0.0-0.06); Absolute Basophil Count 0.05 10^3/uL (0.0-0.2); Absolute Eosinophil Count 0.29 10^3/uL (0.0-0.7); Absolute Lymphocyte Count 1.53 10^3/uL (1.2-3.4); Absolute Monocyte Count 0.37 10^3/uL (0.1-0.8); Absolute Neutrophil Count 1.97 10^3/uL (1.2-6.7); Basophils % 1.2; Eosinophils % 6.9; HCT 40.4 % (40.0-50.0); HGB 12.7 g/dL (13.5-17.5); Immature Grans % 0.2; Lymphocytes % 36.3; MCH 28.2 pg (27.0-33.0); MCHC 31.4 % (32.0-36.0); MCV 89.8 fL (80-95); MPV 9.9 fL (8.0-11.0); Monocytes % 8.8; Neutrophils % 46.6; Nucleated RBC 0 %; Platelet Count 176 10^3/uL (130-400); RDW 14.2 % (11.8-14.1); WBC 4.22 10^3/uL (4.4-10.8)
[2020-06-21 07:05] LABS: BUN 15 mg/dL (7-18); CO2 30.8 mmol/L (21.0-32.0); CREATININE 1.29 mg/dL (0.70-1.30); Calcium 9.2 mg/dL (8.5-10.1); Glucose 99 mg/dL (74-106)
[2020-06-21 07:18] VITALS: BP 121/74; PULSE 45; RESP 18; TEMP 36.5; O2SAT 98
[2020-06-21 07:28] LABS: Anion Gap 5.2 mmol/L (3-11); Chloride 103 mmol/L (98-107); Potassium 4.5 mmol/L (3.5-5.1); Sodium 139 mmol/L (136-145)
[2020-06-21 08:37] LABS: COVID-19 RT-PCR UVMMC Result Negative (Negative)
[2020-06-21] MEDS: Citalopram 20 MG TAB 40 MG PO (08:49)
[2020-06-21] MEDS: fentaNYL 75 MCG PATCH TD (08:49)
[2020-06-21] MEDS: Pantoprazole 40 MG TABCR PO (08:50)
[2020-06-21] MEDS: Clopidogrel 75 MG TAB PO (08:50)
[2020-06-21] MEDS: Spironolactone 25 MG TAB PO (08:50)
[2020-06-21] MEDS: Finasteride 5 MG TAB PO (08:50)
[2020-06-21] MEDS: Apixaban 5 MG TAB PO ×2 (08:50→20:02)
[2020-06-21] MEDS: Docusate Sodium 100 MG CAP PO ×2 (08:50→20:02)
[2020-06-21] MEDS: Magnesium Oxide 400 MG TAB PO (08:50)
[2020-06-21] MEDS: lamoTRIgine 100 MG TAB PO ×2 (08:51→20:02)
[2020-06-21] MEDS: diazePAM 2 MG TAB PO ×2 (08:51→20:01)
[2020-06-21] MEDS: Gabapentin 600 MG TAB PO ×4 (08:51→20:02)
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
[2020-06-21 11:19] VITALS: BP 111/70; PULSE 51; RESP 18; TEMP 36.8; O2SAT 95
--- NOTE | 2020-06-21 12:47 | W.PM.PROGNOT ---
Date of Service Date of service: 06/21/20 Time of Service: 12:48 Assessment and Plan Assessment and plan (1) Symptomatic bradycardia: Status: Acute Assessment and plan: HR in the 40's overnight, up to 51 today Feels somewhat less fatigued/weak Metoprolol 12.5mg po daily; held this AM Holding Digoxin and Imdur (2) Generalized weakness: Status: Acute Assessment and plan: Acutely d/t bradycardia Improving (3) Atrial flutter: Status: Chronic Assessment and plan: Cont AC Holding Digoxin, Metoprolol. Monitoring. Add back meds if and when HR is appropriate. Qualifiers: Atrial flutter type: unspecified Qualified Code(s): I48.92 - Unspecified atrial flutter (4) COPD (chronic obstructive pulmonary disease): Status: Chronic Assessment and plan: No exacerbation Cont Proair Subjective Subjective Patient reports: feels better Interval history since last seen: No syncope, palpitations. Eating OK w/o N/V/pain No cough/SOA No F/C Exam Const General: cooperative Nutritional Appearance: average body habitus Orientation: alert, awake, oriented to person and oriented to place Resp Effort & Inspection: normal respiratory effort Auscultation: clear to auscultation bilaterally Cardio Rate: bradycardic Rhythm: regular rhythm Heart Sounds: S1 normal and S2 normal Extrem General: normal to inspection and no clubbing, cyanosis or edema Objective Objective Clinical Data: Abnormal lab results 06/20/20 06/20/20 06/20/20 Range/Units 12:55 12:55 16:12 WBC (4.4-10.8) 10^3/uL RBC 4.23 L (4.36-5.78) 10^6/uL Hgb 12.2 L (13.5-17.5) g/dL Hct 38.0 L (40.0-50.0) % MCHC (32.0-36.0) % RDW 14.5 H (11.8-14.1) % AST 11 L (15-37) U/L ALT 15 L (16-63) U/L Alkaline Phosphatase 175 H (46-116) U/L Urine Blood Trace-intact H (Negative) 06/21/20 Range/Units 06:10 WBC 4.22 L (4.4-10.8) 10^3/uL RBC (4.36-5.78) 10^6/uL Hgb 12.7 L (13.5-17.5) g/dL Hct (40.0-50.0) % MCHC 31.4 L (32.0-36.0) % RDW 14.2 H (11.8-14.1) % AST (15-37) U/L ALT (16-63) U/L Alkaline Phosphatase (46-116) U/L Urine Blood (Negative) Vital Signs Temperature 36.8 C 06/21/20 11:19 Temperature Source Tympanic 06/21/20 11:19 Pulse 51 L 06/21/20 11:19 Pulse Rhythm Regular 06/21/20 00:07 Pulse 39 L 06/20/20 15:31 Respiratory Rate 18 06/21/20 11:19 Respiratory Effort Non-Labored 06/21/20 00:07 Respiratory Depth Normal 06/21/20 00:07 Respiratory Pattern Normal 06/21/20 00:07 Blood Pressure 111/70 06/21/20 11:19 Blood Pressure Mean 63 06/20/20 15:31 Blood Pressure Position Supine 06/20/20 12:42 Pulse Oximetry 95 06/21/20 11:19 Oxygen Delivery Method Room Air 06/21/20 11:19 Oxygen Flow Rate 0 06/21/20 11:19 Pain Level 0 06/21/20 11:19 Intake & Output 06/20/20 06/21/20 06/21/20 23:59 11:59 23:59 Intake Total 100 / 100 Output Total 500 / 500 1025 / 1025 Balance -400 / -400 -1025 / -1025 Weight 59.1 kg Intake: IV 100 / 100 Output: Urine 500 / 500 1025 / 1025 Other: Urine Color Yellow Yellow Urine Appearance Clear Clear Urine Odor Normal Normal Voiding Methods Urinal Urinal Laboratory Results WBC 4.22 10^3/uL (4.4-10.8) L 06/21/20 06:10 RBC 4.50 10^6/uL (4.36-5.78) 06/21/20 06:10 Hgb 12.7 g/dL (13.5-17.5) L 06/21/20 06:10 Hct 40.4 % (40.0-50.0) 06/21/20 06:10 MCV 89.8 fL (80-95) 06/21/20 06:10 MCH 28.2 pg (27.0-33.0) 06/21/20 06:10 MCHC 31.4 % (32.0-36.0) L 06/21/20 06:10 RDW 14.2 % (11.8-14.1) H 06/21/20 06:10 Plt Count 176 10^3/uL (130-400) 06/21/20 06:10 MPV 9.9 fL (8.0-11.0) 06/21/20 06:10 Immature Gran % 0.2 06/21/20 06:10 Neutrophils % 46.6 06/21/20 06:10 Lymphocytes % 36.3 06/21/20 06:10 Monocytes % 8.8 06/21/20 06:10 Eosinophils % 6.9 06/21/20 06:10 Basophils % 1.2 06/21/20 06:10 Nucleated RBC % 0 % 06/21/20 06:10 Absolute Neutrophils 1.97 10^3/uL (1.2-6.7) 06/21/20 06:10 Absolute Lymphocytes 1.53 10^3/uL (1.2-3.4) 06/21/20 06:10 Absolute Monocytes 0.37 10^3/uL (0.1-0.8) 06/21/20 06:10 Absolute Eosinophils 0.29 10^3/uL (0.0-0.7) 06/21/20 06:10 Absolute Basophils 0.05 10^3/uL (0.0-0.2) 06/21/20 06:10 PT 10.9 sec (9.3-11.0) 06/20/20 12:55 INR 1.1 (0.9-1.1) 06/20/20 12:55 APTT 27.1 sec (21.0-31.4) 06/20/20 12:55 Sodium 139 mmol/L (136-145) 06/21/20 06:10 Potassium 4.5 mmol/L (3.5-5.1) 06/21/20 06:10 Chloride 103 mmol/L (98-107) 06/21/20 06:10 Carbon Dioxide 30.8 mmol/L (21.0-32.0) 06/21/20 06:10 Anion Gap 5.2 mmol/L (3-11) 06/21/20 06:10 BUN 15 mg/dL (7-18) 06/21/20 06:10 Creatinine 1.29 mg/dL (0.70-1.30) 06/21/20 06:10 Estimated GFR/1.73 m2 55.90 (mL/min/1.73m2) 06/21/20 06:10 Glucose 99 mg/dL (74-106) 06/21/20 06:10 Calcium 9.2 mg/dL (8.5-10.1) 06/21/20 06:10 Magnesium 1.9 mg/dL (1.8-2.4) 06/20/20 12:55 Total Bilirubin 0.3 mg/dL (0.2-1.0) 06/20/20 12:55 AST 11 U/L (15-37) L 06/20/20 12:55 ALT 15 U/L (16-63) L 06/20/20 12:55 Alkaline Phosphatase 175 U/L (46-116) H 06/20/20 12:55 Troponin I < 0.05 ng/mL (<0.06) 06/20/20 12:55 Total Protein 6.6 g/dL (6.4-8.2) 06/20/20 12:55 Albumin 3.5 g/dL (3.4-5.0) 06/20/20 12:55 Urine Color Yellow (Yellow) 06/20/20 16:12 Urine Clarity Clear (Clear) 06/20/20 16:12 Urine pH 6.0 (5-8) 06/20/20 16:12 Ur Specific [place] 1.015 (1.005-1.025) 06/20/20 16:12 Urine Protein Negative mg/dL (Negative) 06/20/20 16:12 Urine Ketones Negative mg/dL (Negative) 06/20/20 16:12 Urine Blood Trace-intact (Negative) H 06/20/20 16:12 Urine Nitrite Negative (Negative) 06/20/20 16:12 Urine Bilirubin Negative (Negative) 06/20/20 16:12 Urine Urobilinogen 0.2 EU/dL (Up TO 0.2) 06/20/20 16:12 Ur Leukocyte Esterase Negative (Negative) 06/20/20 16:12 Urine RBC 0-2 HPF (0-2) 06/20/20 16:12 Urine WBC Negative HPF (0-5) 06/20/20 16:12 Ur Epithelial Cells Negative HPF (Negative) 06/20/20 16:12 Urine Crystals Negative HPF (Negative) 06/20/20 16:12 Urine Bacteria Negative HPF (Negative) 06/20/20 16:12 Urine Casts Negative LPF (Negative) 06/20/20 16:12 Urine Mucus Negative (Negative) 06/20/20 16:12 Urine Other Negative (Negative) 06/20/20 16:12 Ur Culture Indicated? No 06/20/20 16:12 Urine Glucose Negative mg/dL (Negative) 06/20/20 16:12 COVID-19 PCR Negative (Negative) 06/20/20 16:00 Nasopharyn COVID-19 PCR Not Applicable 06/20/20 16:00 [facility] 06/20/20 16:00
[2020-06-21 15:37] VITALS: BP 109/66; PULSE 47; RESP 18; TEMP 36.9; O2SAT 99
--- NOTE | 2020-06-21 15:53 | CHAPLAIN ---
I checked in with Aaliyah couple of times today. We know each other from previous admissions and from the community. Miguel said he is feeling better and his pain is better controlled. He said he was doing well at home, but his heart rate dropped. His son Marciano lives with him in a trailer. Miguel's significant other, and Marciano's mom, in December after years of declining health. Miguel said he expects to be here over night and maybe for a couple of days, until they see how the medicine works.
[2020-06-21] MEDS: Atorvastatin 40 MG TAB PO (20:02)
[2020-06-21 20:05] VITALS: BP 113/68; PULSE 48; RESP 16; TEMP 36.5; O2SAT 95
[2020-06-21] MEDS: traMADol 50 MG TAB PO (22:51)
[2020-06-21] MEDS: Tamsulosin 0.4 MG CAPCR PO (22:52)
[2020-06-22] VITALS (9 sets, daily range): BP systolic 113–138; BP diastolic 55–77; PULSE 49–57; RESP 16–22; TEMP 36–36.9; O2SAT 94–98
[2020-06-22] MEDS: Acetaminophen 500 MG TAB 1000 MG PO (06:13)
[2020-06-22] MEDS: Clopidogrel 75 MG TAB PO (09:33)
[2020-06-22] MEDS: Apixaban 5 MG TAB PO ×2 (09:33→20:00)
[2020-06-22] MEDS: Finasteride 5 MG TAB PO (09:33)
[2020-06-22] MEDS: Pantoprazole 40 MG TABCR PO (09:33)
[2020-06-22] MEDS: Docusate Sodium 100 MG CAP PO ×2 (09:34→20:00)
[2020-06-22] MEDS: diazePAM 2 MG TAB PO (09:34)
[2020-06-22] MEDS: Magnesium Oxide 400 MG TAB PO (09:34)
[2020-06-22] MEDS: Gabapentin 600 MG TAB PO ×3 (09:34→20:00)
[2020-06-22] MEDS: Spironolactone 25 MG TAB PO (09:34)
[2020-06-22] MEDS: lamoTRIgine 100 MG TAB PO ×2 (09:34→20:00)
[2020-06-22] MEDS: Citalopram 20 MG TAB 40 MG PO (09:34)
--- NOTE | 2020-06-22 14:45 | DI.CT_ITS ---
EXAM: CT HEAD - STROKE PROTOCOL CLINICAL HISTORY: transient acute mental status, headache TECHNIQUE: COMPARISON: CT CT HEAD WO from 06/20/2020 FINDINGS: Noncontrast cranial CT was performed. Note is made of mild cerebral atrophy with left posterior temp oral encephalomalacia. No evidence of acute intracranial hemorrhage, mass effect, or midline shift. The orbital and temporal bone structures appear intact. Visualized mastoid air cells and paranasal s inuses appear clear. IMPRESSION: No evidence of acute intracranial process. RADIATION DOSE DELIVERED: 649.19mGy.cm Total DLP
--- NOTE | 2020-06-22 15:15 | PGE_ITS ---
Date of Service Date of service: 06/22/20 Time of Service: 15:15 Assessment and Plan Assessment and plan (1) Acute confusion: Status: Acute Assessment and plan: I suspect that he has a metabolic encephalopathy brought on by too much narcotics and benzodiazepines and anxiety lytics. I have discontinued his trazodone and his tramadol and his fentanyl patch. I may need to re-add the fentanyl patch at a lower dose. I do not think he needs the tramadol and the trazodone at night. He was also on diazepam which I have held for now. Because of his previous CVA and tendency for spasm he may need the diazepam re-added at a lower dose or decrease frequency. Is unclear to me as to why he was on fentanyl patch in the first place. For now we will withhold as much as we can and get a CT scan of his head to rule out an intracranial bleed or CVA. (2) Symptomatic bradycardia: Status: Acute Assessment and plan: Currently his bradycardia has improved and he is no longer hypotensive from this. Toprol-XL dose was held this morning. Digoxin remains on hold. Again a decrease his metoprolol to Lopressor 12.5 mg p.o. twice daily with parameters to hold for systolic blood pressure less than 110 mm or heart rate less than 60 bpm (3) Generalized weakness: Status: Acute Assessment and plan: Generalized weakness probably due to his bradycardia however he also has underlying left hemiplegia and is on multiple medications which can cause sedation and fatigue. Unclear as to exactly the cause of his generalized weakness. We will ask physical therapy to become involved and evaluate and initiate treatment to improve his ADL performance. (4) Atrial flutter: Status: Chronic Assessment and plan: Currently in sinus bradycardia in the high 50s. Digoxin remains on hold. Toprol changed to Lopressor so we can more carefully titrate the dose. Continue to monitor his rhythm Qualifiers: Atrial flutter type: unspecified Qualified Code(s): I48.92 - Unspecified atrial flutter (5) COPD (chronic obstructive pulmonary disease): Status: Chronic Assessment and plan: No exacerbation Cont Proair Subjective Subjective Interval history since last seen: Patient still having sinus bradycardia with heart rates in the 40s when he sleeps but mostly in the mid to upper 50s while awake. Occasional isolated PVCs but no runs of ventricular tachycardia no evidence of heart block. Blood pressure has been stable. This afternoon while case management was talking the patient he seemed to be confused disoriented and patient even stated that he felt confused and did not feel well. When I went in see the patient he seemed to think he was a prison but he knew that he was in [facility] and knew the month and the year correctly. He is complained of headache in the posterior occiput area. Feels nausea but no vomiting. He has obvious abdominal distention. When asked if he is in any pain he says I just do not feel good. After talking with case management and the patient's nurse I do not feel that he is having a CVA even though he has a history of CVA. Nevertheless we will get a CT scan of his head without contrast because of the headache and being on anticoagulants. I think overall this is probably metabolic encephalopathy secondary to being overmedicated with sedatives and benzodiazepines and narcotic analgesics. Exam Narrative Exam Narrative: Senior male who looks older than his stated age of 65. And is lethargic but arousable. As a stated he is oriented to the month and the year but not to the place. Lungs are clear to auscultation. Heart is regular but bradycardic Abdomen is distended bladder is palpated up to his umbilicus. Neurologic exam he has good facial mimetic muscle movement opens his eyes has full extraocular motion intact speech is clear and coherent normal strength and range of motion in his right upper and right lower extremity both proximal and distal muscle groups. Left side is hemiplegic which is his baseline. Objective Objective Clinical Data: Vital Signs Temperature 36.9 C 06/22/20 14:23 Temperature Source Tympanic 06/22/20 14:23 Pulse 55 L 06/22/20 14:23 Pulse Rhythm Regular 06/22/20 13:18 Pulse 39 L 06/20/20 15:31 Respiratory Rate 22 06/22/20 14:23 Respiratory Effort Non-Labored 06/22/20 13:18 Respiratory Depth Normal 06/22/20 13:18 Respiratory Pattern Normal 06/22/20 13:18 Blood Pressure 138/77 06/22/20 14:23 Blood Pressure Mean 63 06/20/20 15:31 Blood Pressure Position Supine 06/20/20 12:42 Pulse Oximetry 97 06/22/20 14:23 Oxygen Delivery Method Room Air 06/22/20 14:23 Oxygen Flow Rate 0 06/22/20 14:23 Pain Level 4 06/22/20 14:23 Comment 06/22/20 07:23 Intake & Output 06/21/20 06/22/20 06/22/20 23:59 11:59 23:59 Intake Total 360 / 360 100 / 100 Output Total 480 / 1505 800 / 800 Balance -120 / -1145 -700 / -700 Intake: IV 100 / 100 Oral 360 / 360 Output: Urine 480 / 1505 800 / 800 Other: Urine Color Yellow Yellow Urine Appearance Clear Clear Clear Urine Odor None None Voiding Methods Urinal Urinal Laboratory Results WBC 4.22 10^3/uL (4.4-10.8) L 06/21/20 06:10 RBC 4.50 10^6/uL (4.36-5.78) 06/21/20 06:10 Hgb 12.7 g/dL (13.5-17.5) L 06/21/20 06:10 Hct 40.4 % (40.0-50.0) 06/21/20 06:10 MCV 89.8 fL (80-95) 06/21/20 06:10 MCH 28.2 pg (27.0-33.0) 06/21/20 06:10 MCHC 31.4 % (32.0-36.0) L 06/21/20 06:10 RDW 14.2 % (11.8-14.1) H 06/21/20 06:10 Plt Count 176 10^3/uL (130-400) 06/21/20 06:10 MPV 9.9 fL (8.0-11.0) 06/21/20 06:10 Immature Gran % 0.2 06/21/20 06:10 Neutrophils % 46.6 06/21/20 06:10 Lymphocytes % 36.3 06/21/20 06:10 Monocytes % 8.8 06/21/20 06:10 Eosinophils % 6.9 06/21/20 06:10 Basophils % 1.2 06/21/20 06:10 Nucleated RBC % 0 % 06/21/20 06:10 Absolute Neutrophils 1.97 10^3/uL (1.2-6.7) 06/21/20 06:10 Absolute Lymphocytes 1.53 10^3/uL (1.2-3.4) 06/21/20 06:10 Absolute Monocytes 0.37 10^3/uL (0.1-0.8) 06/21/20 06:10 Absolute Eosinophils 0.29 10^3/uL (0.0-0.7) 06/21/20 06:10 Absolute Basophils 0.05 10^3/uL (0.0-0.2) 06/21/20 06:10 PT 10.9 sec (9.3-11.0) 06/20/20 12:55 INR 1.1 (0.9-1.1) 06/20/20 12:55 APTT 27.1 sec (21.0-31.4) 06/20/20 12:55 Sodium 139 mmol/L (136-145) 06/21/20 06:10 Potassium 4.5 mmol/L (3.5-5.1) 06/21/20 06:10 Chloride 103 mmol/L (98-107) 06/21/20 06:10 Carbon Dioxide 30.8 mmol/L (21.0-32.0) 06/21/20 06:10 Anion Gap 5.2 mmol/L (3-11) 06/21/20 06:10 BUN 15 mg/dL (7-18) 06/21/20 06:10 Creatinine 1.29 mg/dL (0.70-1.30) 06/21/20 06:10 Estimated GFR/1.73 m2 55.90 (mL/min/1.73m2) 06/21/20 06:10 Glucose 99 mg/dL (74-106) 06/21/20 06:10 Calcium 9.2 mg/dL (8.5-10.1) 06/21/20 06:10 Magnesium 1.9 mg/dL (1.8-2.4) 06/20/20 12:55 Total Bilirubin 0.3 mg/dL (0.2-1.0) 06/20/20 12:55 AST 11 U/L (15-37) L 06/20/20 12:55 ALT 15 U/L (16-63) L 06/20/20 12:55 Alkaline Phosphatase 175 U/L (46-116) H 06/20/20 12:55 Troponin I < 0.05 ng/mL (<0.06) 06/20/20 12:55 Total Protein 6.6 g/dL (6.4-8.2) 06/20/20 12:55 Albumin 3.5 g/dL (3.4-5.0) 06/20/20 12:55 Urine Color Yellow (Yellow) 06/20/20 16:12 Urine Clarity Clear (Clear) 06/20/20 16:12 Urine pH 6.0 (5-8) 06/20/20 16:12 Ur Specific [place] 1.015 (1.005-1.025) 06/20/20 16:12 Urine Protein Negative mg/dL (Negative) 06/20/20 16:12 Urine Ketones Negative mg/dL (Negative) 06/20/20 16:12 Urine Blood Trace-intact (Negative) H 06/20/20 16:12 Urine Nitrite Negative (Negative) 06/20/20 16:12 Urine Bilirubin Negative (Negative) 06/20/20 16:12 Urine Urobilinogen 0.2 EU/dL (Up TO 0.2) 06/20/20 16:12 Ur Leukocyte Esterase Negative (Negative) 06/20/20 16:12 Urine RBC 0-2 HPF (0-2) 06/20/20 16:12 Urine WBC Negative HPF (0-5) 06/20/20 16:12 Ur Epithelial Cells Negative HPF (Negative) 06/20/20 16:12 Urine Crystals Negative HPF (Negative) 06/20/20 16:12 Urine Bacteria Negative HPF (Negative) 06/20/20 16:12 Urine Casts Negative LPF (Negative) 06/20/20 16:12 Urine Mucus Negative (Negative) 06/20/20 16:12 Urine Other Negative (Negative) 06/20/20 16:12 Ur Culture Indicated? No 06/20/20 16:12 Urine Glucose Negative mg/dL (Negative) 06/20/20 16:12 COVID-19 PCR Negative (Negative) 06/20/20 16:00 Nasopharyn COVID-19 PCR Not Applicable 06/20/20 16:00 Ref Test Perform Site [facility] lab 06/20/20 16:00
--- NOTE | 2020-06-22 15:43 | DI.VRAD_ITS ---
PROCEDURE INFORMATION: Exam: CT Head Without Contrast Exam date and time: 06/22/2020 3:30 PM Age: 65 years old Clinical indication: Other: Transient acute mental status, headache TECHNIQUE: Imaging protocol: Computed tomography of the head without contrast. Radiation optimization: All CT scans at this facility use at least one of these dose optimization techniques: automated exposure control; mA and/or kV adjustment per patient size (includes targeted exams where dose is matched to clinical indication); or iterative reconstruction. Other technique: STROKE PROTOCOL was implemented. COMPARISON: CT HEAD WO 06/20/2020 1:51 PM FINDINGS: Brain: There is left posterior temporal encephalomalacia. This may be posttraumatic given location. There is no acute intracranial hemorrhage. There is no acute loss of chávez-white differentiation or evidence of acute territorial infarct. Left temporal encephalomalacia. Ventricles: No ventriculomegaly. Bones/joints: No acute fracture. Sinuses: There is mucosal thickening in right maxillary and sphenoid, and and bilateral ethmoid air cells. There are small retention cysts or polyps in left frontal sinus. Mucosal sinus findings. Mastoid air cells: No significant mastoid effusion. Soft tissues: Unremarkable as visualized. IMPRESSION: No acute infarct. ASSESSMENT: ASPECTS ([place] Stroke Program Early CT Score) is 10. Dictated and Authenticated by: Katerine Aldrich MD. [facility] Berkley Hallman MD
[2020-06-22 15:52] LABS: Bilirubin Negative (Negative); Blood Small (Negative); Clarity Clear (Clear); Glucose Negative (Negative); Ketones Negative (Negative); Leukocyte Esterase Negative (Negative); Nitrite Negative (Negative); Urobilinogen 0.2 EU/dL (Up TO 0.2)
[2020-06-22 16:26] LABS: Bacteria Negative HPF (Negative); C & S Indicated? No; Crystals Negative HPF (Negative); Epithelial Cells Negative HPF (Negative); Mucus Negative (Negative); WBC Negative HPF (0-5)
--- NOTE | 2020-06-22 17:46 | PDOC.CMPRO ---
- If Service Date Differs Date of service: 06/22/20 Time of Service: 17:46 Care Management Progress Note S/O: Miguel was sitting up in his bed when CM met with him. When asked how he was doing, Miguel stated that he was confused, and that he did not know where he was. He stated that he thought he was at a shelter. CM assured him that he is currently at [facility]. His RN entered the room and asked for vitals, as he was concerned about his presentation. CM spoke to the provider about Miguel's confusion. CM will continue to follow. A: Miguel is a 65 year old male admitted to [facility] on 06/21/20 with symptomatic bradycardia, dizzyness, weakness. P: Miguel will likely be discharged home with a resumption of home health nursing. He will follow up with his PCP and discharge plan of care. CM will continue to support patient, family and discharge planning needs.
--- NOTE | 2020-06-22 17:47 | NUR.NOTE ---
Nursing Note: fentanyl patch wqs dc'd by provider. Old removed and disposed and witnessed by Laury Lord ccc
[2020-06-22] MEDS: Atorvastatin 40 MG TAB PO (20:00)
[2020-06-22] MEDS: Tamsulosin 0.4 MG CAPCR PO (21:14)
[2020-06-23 04:14] VITALS: BP 102/67; PULSE 56; RESP 17; TEMP 36.7; O2SAT 96
[2020-06-23] MEDS: Pantoprazole 40 MG TABCR PO (06:20)
[2020-06-23 07:49] VITALS: BP 105/63; PULSE 60; RESP 19; TEMP 36.5; O2SAT 94
[2020-06-23] MEDS: Docusate Sodium 100 MG CAP PO ×2 (08:09→19:44)
[2020-06-23] MEDS: Gabapentin 600 MG TAB PO ×2 (08:10→14:30)
[2020-06-23] MEDS: Citalopram 20 MG TAB 40 MG PO (08:10)
[2020-06-23] MEDS: Spironolactone 25 MG TAB PO (08:10)
[2020-06-23] MEDS: Magnesium Oxide 400 MG TAB PO (08:10)
[2020-06-23] MEDS: lamoTRIgine 100 MG TAB PO ×2 (08:10→19:44)
[2020-06-23] MEDS: Clopidogrel 75 MG TAB PO (08:11)
[2020-06-23] MEDS: Apixaban 5 MG TAB PO ×2 (08:11→19:44)
[2020-06-23] MEDS: Finasteride 5 MG TAB PO (08:11)
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
[2020-06-23 11:34] VITALS: BP 125/75; PULSE 60; RESP 18; TEMP 36.8; O2SAT 96
--- NOTE | 2020-06-23 15:01 | PGE_ITS ---
Date of Service Date of service: 06/23/20 Time of Service: 15:01 Assessment and Plan Assessment and plan (1) Acute confusion: Status: Resolved Assessment and plan: Noncontrast CT scan head last night was negative. Cognitive function appears to be back to his baseline. I think he just needs a titration of his pain medications. Resume fentanyl at a reduced dose of 50 mcg every 72 hours. Continue gabapentin but space it out every 8 hours. DC Desyrel and tramadol. (2) Symptomatic bradycardia: Status: Acute Assessment and plan: Patient remains bradycardic but he is asymptomatic at this point. His metoprolol remains on hold. Digoxin has never been reordered. At this point I think he should stay off of beta-blockers and just monitor his heart rhythm. He may need an outpatient Holter monitor or 30-day event recorder to assess stability of his heart rhythm. (3) Generalized weakness: Status: Acute Assessment and plan: Improving. Continue with physical therapy. Recommend outpatient physical therapy upon discharge. (4) Atrial flutter: Status: Chronic Assessment and plan: Continue home metoprolol. This point he may be discharged home without any beta-duarte and have him get a cardiac event recorder as an outpatient. Qualifiers: Atrial flutter type: unspecified Qualified Code(s): I48.92 - Unspecified atrial flutter (5) COPD (chronic obstructive pulmonary disease): Status: Chronic Assessment and plan: No exacerbation Cont Proair (6) Discharge planning issues: Status: Acute Assessment and plan: Probable discharge home tomorrow with home health, including nursing, physical therapy, CLARIFYING PLANT OPERATOR, OT Subjective Subjective Interval history since last seen: Patient is much more alert and oriented today. No headache. His other complaint is left leg pain. He has had chronic left leg pain ever since he had a stroke leaving him paraplegic. He did get up and walk with physical therapy wearing his leg brace. He is asking when he can go home. I told him once we get his pain under control I had to withhold a lot of medications yesterday including his gabapentin dose had to be reduced and his fentanyl patch was discontinued yesterday along with his tramadol and his Desyrel. I will keep him off the tramadol and resume his fentanyl patch at a reduced dose50 mcg/72h (a 33% decrease in his prior dose of 75 mcg). I will also keep him off the Desyrel for now. Continue his gabapentin but increase his dose to 800 mg tid. Exam Narrative Exam Narrative: Alert and oriented person place time circumstance. Patient is very talkative in no acute distress. Lungs are clear to auscultation. Heart is regular but bradycardic. Telemetry demonstrates sinus bradycardia in the 50s. Abdomen soft and nontender. Left lower extremity is warm with normal pedal pulses no calf swelling or tenderness. He seems to have a neuropathic pain along the left lower leg. Objective Objective Clinical Data: Abnormal lab results 06/22/20 Range/Units 14:55 Urine Blood Small H (Negative) Urine RBC 5-10 H (0-2) HPF Vital Signs Temperature 36.8 C 06/23/20 11:34 Temperature Source Tympanic 06/23/20 11:34 Pulse 60 06/23/20 11:34 Pulse Rhythm Regular 06/23/20 10:16 Pulse 39 L 06/20/20 15:31 Respiratory Rate 18 06/23/20 11:34 Respiratory Effort Non-Labored 06/23/20 10:16 Respiratory Depth Normal 06/23/20 10:16 Respiratory Pattern Normal 06/23/20 10:16 Blood Pressure 125/75 06/23/20 11:34 Blood Pressure Mean 63 06/20/20 15:31 Blood Pressure Position Supine 06/20/20 12:42 Pulse Oximetry 96 06/23/20 11:34 Oxygen Delivery Method Room Air 06/23/20 11:34 Oxygen Flow Rate 0 06/23/20 11:34 Pain Level 8 06/23/20 11:34 Comment 06/22/20 07:23 Intake & Output 06/22/20 06/23/20 06/23/20 23:59 11:59 23:59 Intake Total 450 / 800 240 / 240 Output Total 750 / 1550 1480 / 1980 500 / 1980 Balance -300 / -750 -1480 / -1740 -260 / -1740 Intake: Oral 450 / 700 240 / 240 Output: Urine 750 / 1550 1200 / 1700 500 / 1700 Post Void Residual 280 / 280 Other: Urine Color Yellow Dark Galilea Yellow Urine Appearance Clear Clear Clear Urine Odor Normal None Normal Comment reported to the [facility] Stool Size Large Stool Characteristics Soft Formed Voiding Methods Urinal Toilet Toilet Diaper Incontinent Laboratory Results WBC 4.22 10^3/uL (4.4-10.8) L 06/21/20 06:10 RBC 4.50 10^6/uL (4.36-5.78) 06/21/20 06:10 Hgb 12.7 g/dL (13.5-17.5) L 06/21/20 06:10 Hct 40.4 % (40.0-50.0) 06/21/20 06:10 MCV 89.8 fL (80-95) 06/21/20 06:10 MCH 28.2 pg (27.0-33.0) 06/21/20 06:10 MCHC 31.4 % (32.0-36.0) L 06/21/20 06:10 RDW 14.2 % (11.8-14.1) H 06/21/20 06:10 Plt Count 176 10^3/uL (130-400) 06/21/20 06:10 MPV 9.9 fL (8.0-11.0) 06/21/20 06:10 Immature Gran % 0.2 06/21/20 06:10 Neutrophils % 46.6 06/21/20 06:10 Lymphocytes % 36.3 06/21/20 06:10 Monocytes % 8.8 06/21/20 06:10 Eosinophils % 6.9 06/21/20 06:10 Basophils % 1.2 06/21/20 06:10 Nucleated RBC % 0 % 06/21/20 06:10 Absolute Neutrophils 1.97 10^3/uL (1.2-6.7) 06/21/20 06:10 Absolute Lymphocytes 1.53 10^3/uL (1.2-3.4) 06/21/20 06:10 Absolute Monocytes 0.37 10^3/uL (0.1-0.8) 06/21/20 06:10 Absolute Eosinophils 0.29 10^3/uL (0.0-0.7) 06/21/20 06:10 Absolute Basophils 0.05 10^3/uL (0.0-0.2) 06/21/20 06:10 PT 10.9 sec (9.3-11.0) 06/20/20 12:55 INR 1.1 (0.9-1.1) 06/20/20 12:55 APTT 27.1 sec (21.0-31.4) 06/20/20 12:55 Sodium 139 mmol/L (136-145) 06/21/20 06:10 Potassium 4.5 mmol/L (3.5-5.1) 06/21/20 06:10 Chloride 103 mmol/L (98-107) 06/21/20 06:10 Carbon Dioxide 30.8 mmol/L (21.0-32.0) 06/21/20 06:10 Anion Gap 5.2 mmol/L (3-11) 06/21/20 06:10 BUN 15 mg/dL (7-18) 06/21/20 06:10 Creatinine 1.29 mg/dL (0.70-1.30) 06/21/20 06:10 Estimated GFR/1.73 m2 55.90 (mL/min/1.73m2) 06/21/20 06:10 Glucose 99 mg/dL (74-106) 06/21/20 06:10 Calcium 9.2 mg/dL (8.5-10.1) 06/21/20 06:10 Magnesium 1.9 mg/dL (1.8-2.4) 06/20/20 12:55 Total Bilirubin 0.3 mg/dL (0.2-1.0) 06/20/20 12:55 AST 11 U/L (15-37) L 06/20/20 12:55 ALT 15 U/L (16-63) L 06/20/20 12:55 Alkaline Phosphatase 175 U/L (46-116) H 06/20/20 12:55 Troponin I < 0.05 ng/mL (<0.06) 06/20/20 12:55 Total Protein 6.6 g/dL (6.4-8.2) 06/20/20 12:55 Albumin 3.5 g/dL (3.4-5.0) 06/20/20 12:55 Urine Color Yellow (Yellow) 06/22/20 14:55 Urine Clarity Clear (Clear) 06/22/20 14:55 Urine pH 7.0 (5-8) 06/22/20 14:55 Ur Specific [place] 1.020 (1.005-1.025) 06/22/20 14:55 Urine Protein Negative mg/dL (Negative) 06/22/20 14:55 Urine Ketones Negative mg/dL (Negative) 06/22/20 14:55 Urine Blood Small (Negative) H 06/22/20 14:55 Urine Nitrite Negative (Negative) 06/22/20 14:55 Urine Bilirubin Negative (Negative) 06/22/20 14:55 Urine Urobilinogen 0.2 EU/dL (Up TO 0.2) 06/22/20 14:55 Ur Leukocyte Esterase Negative (Negative) 06/22/20 14:55 Urine RBC 5-10 HPF (0-2) H 06/22/20 14:55 Urine WBC Negative HPF (0-5) 06/22/20 14:55 Ur Epithelial Cells Negative HPF (Negative) 06/22/20 14:55 Urine Crystals Negative HPF (Negative) 06/22/20 14:55 Urine Bacteria Negative HPF (Negative) 06/22/20 14:55 Urine Casts Negative LPF (Negative) 06/20/20 16:12 Urine Mucus Negative (Negative) 06/22/20 14:55 Urine Other Negative (Negative) 06/20/20 16:12 Ur Culture Indicated? No 06/22/20 14:55 Urine Glucose Negative mg/dL (Negative) 06/22/20 14:55 COVID-19 PCR Negative (Negative) 06/20/20 16:00 Nasopharyn COVID-19 PCR Not Applicable 06/20/20 16:00 Ref Test Perform Site [facility] lab 06/20/20 16:00
[2020-06-23 15:59] VITALS: BP 124/76; PULSE 65; RESP 18; TEMP 37; O2SAT 97
[2020-06-23] MEDS: fentaNYL 50 MCG PATCH TD (16:08)
--- NOTE | 2020-06-23 17:45 | PDOC.CMPRO ---
- If Service Date Differs Date of service: 06/23/20 Time of Service: 17:45 Care Management Progress Note S/O: Per report, CT scan of head was negative. Per provider, his confusion may be due to medications. Per report he may be ready for discharge tomorrow with HH support. He currently has caregivers in the home. CM will continue to follow. A: Miguel is a 65 year old male admitted to [facility] on 06/21/20 with symptomatic bradycardia, dizzyness, weakness. P: Miguel will likely be discharged home with a resumption of home health nursing. He will follow up with his PCP and discharge plan of care. CM will continue to support patient, family and discharge planning needs.
[2020-06-23] MEDS: Metoprolol 12.5 MG TAB PO (17:52)
[2020-06-23] MEDS: Gabapentin 800 MG TAB PO (19:44)
[2020-06-23] MEDS: Atorvastatin 40 MG TAB PO (19:44)
[2020-06-23 20:10] VITALS: BP 109/65; PULSE 51; RESP 17; TEMP 37.3; O2SAT 98
[2020-06-23] MEDS: Acetaminophen 500 MG TAB 1000 MG PO (21:03)
[2020-06-23] MEDS: Tamsulosin 0.4 MG CAPCR PO (21:03)
[2020-06-24 00:15] VITALS: BP 112/56; PULSE 64; RESP 18; TEMP 36.9; O2SAT 96
[2020-06-24 03:05] VITALS: BP 121/67; PULSE 51; RESP 18; TEMP 36.2; O2SAT 95
[2020-06-24 06:02] VITALS: BP 111/64; PULSE 50
[2020-06-24 07:16] VITALS: BP 103/58; PULSE 68; RESP 17; TEMP 36.7; O2SAT 94
[2020-06-24] MEDS: lamoTRIgine 100 MG TAB PO (11:12)
[2020-06-24] MEDS: Apixaban 5 MG TAB PO (11:12)
[2020-06-24] MEDS: Pantoprazole 40 MG TABCR PO (11:13)
[2020-06-24] MEDS: Magnesium Oxide 400 MG TAB PO (11:13)
[2020-06-24] MEDS: Gabapentin 800 MG TAB PO ×2 (11:13→14:58)
[2020-06-24] MEDS: Citalopram 20 MG TAB 40 MG PO (11:13)
[2020-06-24] MEDS: Docusate Sodium 100 MG CAP PO (11:14)
[2020-06-24] MEDS: Spironolactone 25 MG TAB PO (11:14)
[2020-06-24] MEDS: Finasteride 5 MG TAB PO (11:14)
[2020-06-24] MEDS: Clopidogrel 75 MG TAB PO (11:14)
[2020-06-24 11:15] VITALS: BP 102/69; PULSE 52; RESP 18; TEMP 36.7; O2SAT 98
--- NOTE | 2020-06-24 11:40 | W.NUTRFU ---
Date of service: 06/24/20 Time of Service: 11:41 Nutritional Follow up NOTE: 65 year old male admitted with weakness. PMH: CVA, CAD, HTN, HLD, COPD, TBI. BMI wnl and stable > 3 months. Following regular meal plan with adequate intake. Not at risk for nutritional decline at this time. Will follow. Time Spent in Nutritional Counseling and Treatment: 0 time spent face to face
--- NOTE | 2020-06-24 14:49 | PT.INTREAT ---
Date of service: 06/24/20 Time of Service: 13:45 PT Notes Visit Reasons: SYMPTOMATIC BRADYCARDIA,DIZZINESS,GEN WEAKNESS Inpatient Physical Therapy Treatment Note [facility] Date: 06/24/2020 SUBJECTIVE: Miguel states that he is going home later this pm. OBJECTIVE: [] BED MOBILITY/TRANSFERS Sit-stand: SBA/S Stand-sit: SBA/S GAIT Assistive Device:FWW Weight bearing: FWB Assist: CGA in am and SBA in pm Distance: 300' in both am and pm sessions. Deviation:Left AFO THEREX: performed a series of LE strength and balance ex. See flowsheet for details. ASSESSMENT: tolerated session well. Left knee did buckle on him during am walk due to fatigue. He was able to regain his balance using walker. PLAN: continue PT POC. Possible d/c home later this pm. TREATMENT CODE/TIME: 30 min in am and 30 min in pm. [id number]
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
--- NOTE | 2020-06-24 15:59 | CHAPLAIN ---
Miguel said he is being discharged today. He wasn't sure how long he'd been here, but said he was feeling better. He is a member of the [facility] [employer].
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
== END 2020-06-24 16:28 | disposition home health service (06) | DRG 308 ==
LOC: ER 12:49 → MS 16:21
PROVIDERS: Internal Medicine; Admitting Provider Family Medicine; Emergency Provider Physician Assistant; PCP Nurse Practitioner; Visit Provider Family Medicine
DX: I48.92 Unspecified atrial flutter (principal); G92 Toxic encephalopathy; I69.354 Hemiplegia and hemiparesis following cerebral infarction affecting left non-dominant side; I50.22 Chronic systolic (congestive) heart failure; G40.802 Other epilepsy, not intractable, without status epilepticus; R42 Dizziness and giddiness; R00.1 Bradycardia, unspecified; R53.1 Weakness; E78.5 Hyperlipidemia, unspecified; I25.10 Atherosclerotic heart disease of native coronary artery without angina pectoris; J44.9 Chronic obstructive pulmonary disease, unspecified; R51 Headache; I11.0 Hypertensive heart disease with heart failure; F43.23 Adjustment disorder with mixed anxiety and depressed mood; G89.4 Chronic pain syndrome; M48.02 Spinal stenosis, cervical region; G89.29 Other chronic pain; M54.5 Low back pain; K21.9 Gastro-esophageal reflux disease without esophagitis; M1A.9XX0 Chronic gout, unspecified, without tophus (tophi); I25.5 Ischemic cardiomyopathy; I25.2 Old myocardial infarction; Z87.891 Personal history of nicotine dependence; F10.11 Alcohol abuse, in remission; F19.11 Other psychoactive substance abuse, in remission; R13.12 Dysphagia, oropharyngeal phase; M19.90 Unspecified osteoarthritis, unspecified site; I47.1 Supraventricular tachycardia; R26.81 Unsteadiness on feet; E53.8 Deficiency of other specified B group vitamins; Z99.3 Dependence on wheelchair; T40.605A Adverse effect of unspecified narcotics, initial encounter; T42.4X5A Adverse effect of benzodiazepines, initial encounter
CPT/HCPCS: 36415; 80048; 80053; 93005; 94640; 96361; 96365; 97110; 97162; 97530; 99222; 99232; 99233; 99239; 99285; U0003; 70450; 71046; 81003; 81015; 83735; 84484; 85025; 85610; 85730; 93010; 99219; J0131; J3490

== ENCOUNTER 2020-07-09 05:20 | Outpatient (CLI) | payer MEDICARE, MEDICAID, SELFPAY | END 2020-07-09 05:40 | PROVIDERS: PCP Nurse Practitioner; Visit Provider Internal Medicine | DX: R32 Unspecified urinary incontinence (principal) | CPT/HCPCS: 99213 ==

== ENCOUNTER 2020-07-12 00:05 | Outpatient (CLI) | payer MEDICARE, MEDICAID, SELFPAY ==
--- NOTE | 2020-08-12 08:43 | W.CARDEVENT ---
Date of service: 08/12/20 Time of Service: 08:43 Cardiac Event Recorder Referring Provider:: maria antonia Indications:: afib Cardiac Event Note: This is a 30-day event recorder ordered for indication of atrial fibrillation. ?Patient was in normal sinus rhythm for the majority of the recording. ?There are no episodes of atrial fibrillation, no pauses grade 3 seconds no evidence of high degree heart block. ?There were no episodes of ventricular tachycardia and rare PVCs. ?There were no patient triggered events.
== END 2020-07-12 00:25 ==
PROVIDERS: PCP Nurse Practitioner; Visit Provider Nurse Practitioner
DX: I48.91 Unspecified atrial fibrillation (principal)
CPT/HCPCS: 93270

== ENCOUNTER 2020-08-12 08:43 | Outpatient (CLI) | payer MEDICARE, MEDICAID, SELFPAY | END 2020-08-12 09:03 | PROVIDERS: PCP Nurse Practitioner; Referring Provider Internal Medicine Cardiovascular Disease; Visit Provider Internal Medicine Cardiovascular Disease | DX: I48.91 Unspecified atrial fibrillation (principal) | CPT/HCPCS: 93272 ==

== ENCOUNTER 2020-08-25 12:54 | Emergency (ER) | payer MEDICARE, MEDICAID, SELFPAY ==
[2020-08-25] VITALS (9 sets, daily range): BP systolic 135–145; BP diastolic 80–85; PULSE 61–78; RESP 11–42; TEMP 36.7; O2SAT 96–99
--- NOTE | 2020-08-25 12:45 | RT.EKG_ITS ---
APPROVED REPORT Exam: Resting ECG Patient Location: E HR:68 bpm ECG Measurements Heart Rate 68 AXIS VT 139 P 34 QRSd 82 QRS 44 QT 493 T 16 QTc 524 Conclusion Sinus rhythm...normal P axis, V-rate 60- 99 Prolonged QT interval...QTc >500mS
--- NOTE | 2020-08-25 13:00 | DI.CT_ITS ---
EXAM: CT THORAX ABD/PEL CTA TECHNIQUE: CT angiography of the chest, abdomen and pelvis was performed with bolus infusion of 80 c c of Omnipaque 350. Axial CT angiography was performed with multi-slice acquisition and multi-planar and/or 3D reconstruc tions. COMPARISON: CT CT CHEST PE CTA from 05/31/2020 FINDINGS: The lungs are clear. No pleural effusion. No evidence of pulmonary embolic disease. No thoracic aort ic dissection or aneurysm. Major branches of the thoracic aorta appear normal. No pleural effusion. No mediastinal or hilar adenopathy. Tracheobronchial tree appears intact. No focal hepatic or renal abnormality seen. Gallbladder and bile ducts are CT normal. Pancreas is unr emarkable. Spleen shows unremarkable early arterial phase pattern of enhancement. No abdominal aortic aneurysm or dissection. Major branches of the abdominal aorta appear normal. Note is made of an ulcerated plaque of infrarenal abdominal aorta. No gross pseudo aneurysm. No ret roperitoneal leakage or hematoma. No abdominal or pelvic adenopathy. Normal appendix. No significant abdominal wall hernia. No focal bowel pathology. IMPRESSION: Penetrating atherosclerotic ulceration of infrarenal abdominal aorta. No additional significant acut e findings. No pseudoaneurysm or retroperitoneal hematoma. RADIATION DOSE DELIVERED: 704.12mGy.cm Total DLP 704.12mGy.cm Total DLP DATA REPOSITORY: All CT scans at this facility are submitted to the National Radiology Data Registry (NRDR) Dose Index Registry (DIR) with the [employer] ([employer]). RADIATION OPTIMIZATION: All CT scans at this facility use at least one of these dose optimization te chniques: automated exposure control; mA and/or kV adjustment per patient size (includes targeted exa ms where dose is matched to clinical indication); or iterative reconstruction.
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
[2020-08-25] MEDS: Omnipaque 350 MG/ML 100 ML BTL IJ (13:19)
[2020-08-25] MEDS: Normal Saline - Diluent 50 ML VIAL IV (13:20)
[2020-08-25 13:22] LABS: Abs Immature Grans 0.02 10^3/uL (0.0-0.06); Absolute Basophil Count 0.06 10^3/uL (0.0-0.2); Absolute Lymphocyte Count 1.85 10^3/uL (1.2-3.4); Absolute Neutrophil Count 4.73 10^3/uL (1.2-6.7); Basophils % 0.8; Eosinophils % 2.7; HCT 49.7 % (40.0-50.0); Immature Grans % 0.3; Lymphocytes % 24.8; MCH 28.2 pg (27.0-33.0); MCHC 32.2 % (32.0-36.0); MCV 87.5 fL (80-95); MPV 9.6 fL (8.0-11.0); Neutrophils % 63.4; Nucleated RBC 0 %; Platelet Count 181 10^3/uL (130-400); RBC 5.68 10^6/uL (4.36-5.78); RDW 15.3 % (11.8-14.1); RDW-SD 48.9 fL; WBC 7.46 10^3/uL (4.4-10.8)
[2020-08-25 13:30] LABS: ALT 24 U/L (16-63); AST 27 U/L (15-37); Albumin 4.7 g/dL (3.4-5.0); Alkaline Phosphatase 182 U/L (46-116); Anion Gap 7.9 mmol/L (3-11); BUN 14 mg/dL (7-18); CO2 28.1 mmol/L (21.0-32.0); CREATININE 1.02 mg/dL (0.70-1.30); Calcium 10.2 mg/dL (8.5-10.1); Chloride 101 mmol/L (98-107); Glucose 95 mg/dL (74-106); Lipase 405 U/L (73-393); Magnesium 2.2 mg/dL (1.8-2.4); Potassium 4.5 mmol/L (3.5-5.1); Sodium 137 mmol/L (136-145); Total Protein 8.7 g/dL (6.4-8.2)
[2020-08-25 13:31] LABS: Troponin I < 0.05 ng/mL (<0.06)
[2020-08-25] MEDS: Ondansetron 4 MG/2 ML VIAL IVP (13:37)
[2020-08-25 13:39] LABS: INR 0.9 (0.9-1.1); PTT Activated 24.9 sec (21.0-31.4); Prothrombin Time 9.5 sec (9.3-11.0)
--- NOTE | 2020-08-25 14:11 | DI.VRAD_ITS ---
PROCEDURE INFORMATION: Exam: CT Angiography Chest With Contrast Exam date and time: 08/25/2020 1:24 PM Age: 65 years old Clinical indication: Other: Chest/back pain radiating to abdomen TECHNIQUE: Imaging protocol: Computed tomographic angiography of the chest with intravenous contrast. 3D rendering (Not supervised by radiologist): MIP and/or 3D reconstructed images were created by the technologist. Radiation optimization: All CT scans at this facility use at least one of these dose optimization techniques: automated exposure control; mA and/or kV adjustment per patient size (includes targeted exams where dose is matched to clinical indication); or iterative reconstruction. Contrast material: OMNIPAQUE 350; Contrast volume: 80 ml; Contrast route: INTRAVENOUS (IV); COMPARISON: CT CHEST PE CTA 05/31/2020 5:54 PM FINDINGS: Pulmonary arteries: Normal. Aorta: Mild scattered thoracic aortosclerosis. There is unchanged mild ectasia of the post ductal thoracic aorta up to 2.7 cm. Lungs: Clear. Pleural space: Normal. Heart: Normal. Coronary arteries: Left anterior descending calcification, minimal elsewhere. Lymph nodes: No axillary, mediastinal or hilar adenopathy. Bones/joints: Normal. Soft tissues: Normal. IMPRESSION: 1. Resolved bilateral pneumonia and mild adenopathy. 2. Unchanged ectasia of the proximal descending thoracic aorta up to 2.7 cm. 3. Very mild aortosclerosis with incidentally noted coronary artery disease. PROCEDURE INFORMATION: Exam: CT Angiography Abdomen and Pelvis With Contrast Exam date and time: 08/25/2020 1:24 PM Age: 65 years old Clinical indication: Other: Chest/back pain radiating to abdomen TECHNIQUE: Imaging protocol: Computed tomographic angiography of the abdomen and pelvis with intravenous contrast material. 3D rendering (Not supervised by radiologist): MIP and/or 3D reconstructed images were created by the technologist. Radiation optimization: All CT scans at this facility use at least one of these dose optimization techniques: automated exposure control; mA and/or kV adjustment per patient size (includes targeted exams where dose is matched to clinical indication); or iterative reconstruction. Contrast material: OMNIPAQUE 350; Contrast volume: 80 ml; Contrast route: INTRAVENOUS (IV); COMPARISON: CT CHEST PE CTA 05/31/2020 5:54 PM CTA THORAX/ABDOMEN May 12, 2020. FINDINGS: Aorta: Very mild diffuse atherosclerosis. There are no vessel occlusions or stenoses. There is noncalcified mural plaque along the left mid aorta beginning 1.5 cm distant from the main left renal artery and there is increased ulceration and contrast penetration into the plaque. The plaque itself spans up to 1.5 cm. There is also a discernible but immeasurably small broader based penetration of thin anterior aorta plaque at about the level of the uppermost left accessory artery origin. Celiac trunk and mesenteric arteries: No stenoses or occlusions. There is very mild calcification at the origin of the celiac artery and its proximal segment. All of the vessels are normal. Renal arteries: There are two accessory left renal arteries. Right iliac arteries: Minimal insignificant atherosclerosis. Left iliac arteries: Minimal insignificant atherosclerosis. Left femoral/popliteal arteries: Minimal insignificant atherosclerosis distal right common femoral artery, otherwise, normal. The popliteal artery was not imaged. Liver: Normal. Gallbladder and bile ducts: Normal. Pancreas: Normal. Spleen: Normal. Adrenals: Normal. Kidneys and ureters: Normal. Stomach and bowel: Normal. Appendix: Normal. Intraperitoneal space: No ascites or pneumoperitoneum. Lymph nodes: No mesenteri, retroperitoneal or inguinal adenopathy. Urinary bladder: Unremarkable. No mass. Reproductive: Normal prostate and seminal vesicles. Bones/joints: No fracture or malalignment. No suspicious osseous lesion. Soft tissues: New small fat containing left inguinal hernia. IMPRESSION: 1. Increased though still quite small mid abdominal penetrating atherosclerotic ulcer. Questionable relevance with regards to acute aortic syndrome. There is otherwise minimal scattered atherosclerosis and no suspicious finding. 2. There are two accessory left renal arteries. 3. Small new fat containing left inguinal hernia. Dictated and Authenticated by: Anthony Leahy MD. Ordering:ALEX Mae MD
== END 2020-08-25 14:39 | disposition home or self-care (01) ==
PROVIDERS: Emergency Provider Emergency Medicine; PCP Nurse Practitioner
DX: R07.89 Other chest pain (principal); R10.13 Epigastric pain; I10 Essential (primary) hypertension; I25.10 Atherosclerotic heart disease of native coronary artery without angina pectoris; J44.9 Chronic obstructive pulmonary disease, unspecified
CPT/HCPCS: 36415; 71275; 74177; 80053; 83690; 93005; 96374; 99285; 83735; 84484; 85025; 85610; 85730; 93010; 99284; J2405; J3490

== ENCOUNTER → 2020-09-11 13:02 | Outpatient (BNVA) | payer MEDICARE, MEDICAID, SELFPAY | PROVIDERS: PCP Nurse Practitioner; Referring Provider Nurse Practitioner; Visit Provider Psychiatry & Neurology Neurology | DX: I63.30 Cerebral infarction due to thrombosis of unspecified cerebral artery; G40.909 Epilepsy, unspecified, not intractable, without status epilepticus; Z87.820 Personal history of traumatic brain injury; I10 Essential (primary) hypertension | CPT/HCPCS: 99213; 99442 ==

== ENCOUNTER 2020-12-27 17:53 | Outpatient (REF) | payer OTHER, MEDICAID, SELFPAY ==
[2020-12-29 16:35] LABS: COVID-19 RT-PCR UVMMC Result Negative (Negative)
== END 2020-12-27 17:54 | disposition home or self-care (01) ==
LOC: LBN 17:53
PROVIDERS: PCP Nurse Practitioner; Visit Provider Family Medicine
DX: Z20.822 Contact with and (suspected) exposure to COVID-19 (principal); J20.9 Acute bronchitis, unspecified
CPT/HCPCS: U0003

== ENCOUNTER 2021-03-24 13:42 | Emergency (ER) | payer OTHER, SELFPAY ==
[2021-03-24] VITALS (46 sets, daily range): BP systolic 106–150; BP diastolic 62–110; PULSE 58–90; RESP 8–24; TEMP 36.6; O2SAT 82–99
--- NOTE | 2021-03-24 13:45 | RT.EKG_ITS ---
APPROVED REPORT Exam: Resting ECG Reason for Exam: possible stroke Patient Location: E HR:71 bpm ECG Measurements Heart Rate 71 AXIS MD 164 P 69 QRSd 79 QRS 39 QT 391 T -78 QTc 427 Conclusion Sinus rhythm...normal P axis, V-rate 60- 99 Inferior infarct, age indeterminate...Q>35mS, T neg, II III aVF Nonspecific T abnormalities, lateral leads...T <-0.10mV, I aVL V5 V6 I have reviewed and interpreted ECG and agree with software generated interpretation.
[2021-03-24 14:58] LABS: Abs Immature Grans 0.02 10^3/uL (0.0-0.06); Absolute Basophil Count 0.06 10^3/uL (0.0-0.2); Absolute Eosinophil Count 0.31 10^3/uL (0.0-0.7); Absolute Lymphocyte Count 1.59 10^3/uL (1.2-3.4); Absolute Monocyte Count 0.77 10^3/uL (0.1-0.8); Absolute Neutrophil Count 4.24 10^3/uL (1.2-6.7); Basophils % 0.9; Eosinophils % 4.4; HCT 40.6 % (40.0-50.0); HGB 13.2 g/dL (13.5-17.5); Immature Grans % 0.3; Lymphocytes % 22.7; MCH 28.9 pg (27.0-33.0); MCHC 32.5 % (32.0-36.0); MPV 10.5 fL (8.0-11.0); Neutrophils % 60.7; Nucleated RBC 0 %; Platelet Count 183 10^3/uL (130-400); RBC 4.56 10^6/uL (4.36-5.78); RDW 14.8 % (11.8-14.1); RDW-SD 48.4 fL; WBC 6.99 10^3/uL (4.4-10.8)
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
[2021-03-24 15:22] LABS: ALT 19 U/L (16-63); AST 20 U/L (15-37); Albumin 3.9 g/dL (3.4-5.0); Alkaline Phosphatase 150 U/L (46-116); Anion Gap 9.4 mmol/L (3-11); BUN 15 mg/dL (7-18); Bilirubin, Total 0.6 mg/dL (0.2-1.0); CO2 25.6 mmol/L (21.0-32.0); CREATININE 1.4 mg/dL (0.70-1.30); Calcium 8.9 mg/dL (8.5-10.1); Chloride 106 mmol/L (98-107); Estimated GFR 50.86 (mL/min/1.73m2); Glucose 85 mg/dL (74-106); NT-proBNP 329 pg/mL (<300); Potassium 4.8 mmol/L (3.5-5.1); Sodium 141 mmol/L (136-145); Total Protein 7.2 g/dL (6.4-8.2)
[2021-03-24 15:28] LABS: Troponin I < 0.05 ng/mL (<0.06)
--- NOTE | 2021-03-24 15:36 | DI.RAD_ITS ---
Exam(s) XR CHEST 2V PA LATERAL EXAM: XR CHEST 2V PA LATERAL CLINICAL HISTORY: shortness of breath, wheezing. TECHNIQUE: 2D digital imaging was performed. COMPARISON: CR XR CHEST 2V PA LATERAL from 06/20/2020 FINDINGS: Heart size is normal. The mediastinum is not widened. Lungs are clear. No infiltrates nor pleural effusions. Chest leads in place. IMPRESSION: No acute pulmonary findings. DATA REPOSITORY: RADIATION DOSE DELIVERED:
[2021-03-24 15:50] LABS: ETHANOL BLOOD < 3.0 mg/dL (<3)
[2021-03-24] MEDS: Albuterol/Ipratropium 3 ML UPD VIAL UPD ×3 (15:58→16:30)
[2021-03-24] MEDS: methylPREDNISolone SUCC 125 MG VIAL IVP (16:29)
[2021-03-24 16:39] LABS: Bilirubin Negative (Negative); Blood Moderate (Negative); Clarity Clear (Clear); Glucose Negative (Negative); Ketones Negative (Negative); Leukocyte Esterase Negative (Negative); Nitrite Negative (Negative); Specific Gravity 1.025 (1.005-1.025); Urobilinogen 0.2 EU/dL (Up TO 0.2); pH 5.5 (5-8)
[2021-03-24 16:50] LABS: Bacteria Negative HPF (Negative); C & S Indicated? No; Casts Negative LPF (Negative); Crystals Negative HPF (Negative); Epithelial Cells Rare HPF (Negative); Mucus Negative (Negative); WBC 0-2 HPF (0-5)
== END 2021-03-24 19:05 | disposition home or self-care (01) ==
PROVIDERS: Physician Assistant; Emergency Provider Physician Assistant; PCP Nurse Practitioner
DX: J45.901 Unspecified asthma with (acute) exacerbation (principal); J44.9 Chronic obstructive pulmonary disease, unspecified
CPT/HCPCS: 36415; 36416; 80053; 82962; 93005; 94640; 96374; 99284; 71046; 80320; 81003; 81015; 83735; 83880; 84443; 84484; 85025; 93010; 99283; J2930; J7620

== ENCOUNTER 2021-03-27 13:47 | Outpatient (REF) | payer OTHER, SELFPAY ==
[2021-03-27 15:44] LABS: Calculated LDL 72 mg/dL (<100); Cholesterol 172 mg/dL (<200); HDL Cholesterol 76 mg/dL (40-60); Triglyceride 123 mg/dL (<150)
== END 2021-03-27 13:48 | disposition home or self-care (01) ==
LOC: LBN 13:47
PROVIDERS: PCP Nurse Practitioner; Visit Provider Nurse Practitioner
DX: I50.22 Chronic systolic (congestive) heart failure (principal); I10 Essential (primary) hypertension
CPT/HCPCS: 80061

== ENCOUNTER 2021-08-16 02:42 | Observation (INO) | payer OTHER, SELFPAY ==
[2021-08-16] VITALS (107 sets, daily range): BP systolic 98–145; BP diastolic 55–91; PULSE 57–90; RESP 9–27; TEMP 36–37.7; O2SAT 88–99
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
--- NOTE | 2021-08-16 02:45 | RT.EKG_ITS ---
APPROVED REPORT Exam: Resting ECG Reason for Exam: seizure Patient Location: E HR:77 bpm ECG Measurements Heart Rate 77 AXIS MN 139 P 80 QRSd 86 QRS 50 QT 427 T -55 QTc 485 Conclusion Sinus rhythm...normal P axis, V-rate 60- 99 Ventricular premature complex...V complex w/ short R-R interval Normal [place] I have reviewed and interpreted ECG and agree with software generated interpretation. There are no significant changes compared to prior EKG performed on 03/24/2021 at 13:51.
--- NOTE | 2021-08-16 02:45 | DI.CT_ITS ---
Exam(s) CT HEAD WO EXAM: CT HEAD WO CLINICAL HISTORY: seizure. TECHNIQUE: Imaging Protocol: Axial computed tomography images with coronal and sagittal reformatted images were created and reviewed COMPARISON: CT CT HEAD - STROKE PROTOCOL from 06/22/2020 FINDINGS: Ventricles and Extra axial spaces: Normal in size and morphology for the patient's age. Hemorrhage: None. Cerebral parenchyma: No acute territorial infarct. There is an old area of encephalomalacia involvin g the posterior left temporal lobe. Midline shift: None. Brainstem/Cerebellum: Normal. Calvarium: Normal. Visualized Paranasal sinuses/Mastoids: Opacifications of ethmoid air cells bilaterally. The remainin g visualized paranasal sinuses are clear. The right mastoid air cells are hypoplastic and opacified. The left mastoid air cells are clear. Soft Tissues: Unremarkable. IMPRESSION: 1. No acute intracranial process. 2. Ethmoid sinusitis. RADIATION DOSE DELIVERED: 671.49mGy.cm Total DLP DATA REPOSITORY: All CT scans at this facility are submitted to the National Radiology Data Registry (NRDR) Dose Index Registry (DIR) with the [employer] (ACR). RADIATION OPTIMIZATION: All CT scans at this facility use at least one of these dose optimization te chniques: automated exposure control; mA and/or kV adjustment per patient size (includes targeted exa ms where dose is matched to clinical indication); or iterative reconstruction.
[2021-08-16] MEDS: Lidocaine 2% Jelly 6 ML SYR (03:06)
[2021-08-16 03:16] LABS: Bilirubin Small (Negative); Blood Small (Negative); Glucose Negative (Negative); Ketones Trace mg/dL (Negative); Leukocyte Esterase Negative (Negative); Nitrite Negative (Negative); Specific Gravity 1.025 (1.005-1.025); pH 6.5 (5-8)
[2021-08-16 03:30] LABS: Salicylate < 2.8 mg/dL (<2.8)
[2021-08-16 03:31] LABS: *AMPHETAMINES SCREEN URINE Negative (Negative); *BARBITURATES SCREEN URINE Negative (Negative); *BENZODIAZEPINES SCREEN URINE Negative (Negative); Cannabinoids THC Positive (Negative); Cocaine Screen,Urine Positive (Negative); METHADONE URINE SCREEN Negative (Negative); OPIATES URINE SCREEN Negative (Negative)
[2021-08-16 03:31] LABS: ALT 18 U/L (16-63); AST 15 U/L (15-37); Abs Immature Grans 0.12 10^3/uL (0.0-0.06); Absolute Basophil Count 0.04 10^3/uL (0.0-0.2); Absolute Lymphocyte Count 1.02 10^3/uL (1.2-3.4); Absolute Monocyte Count 0.85 10^3/uL (0.1-0.8); Absolute Neutrophil Count 6.45 10^3/uL (1.2-6.7); Albumin 3.7 g/dL (3.4-5.0); Alkaline Phosphatase 136 U/L (46-116); BUN 13 mg/dL (7-18); Basophils % 0.5; Bilirubin, Total 0.6 mg/dL (0.2-1.0); CREATININE 1.3 mg/dL (0.70-1.30); Chloride 104 mmol/L (98-107); Eosinophils % 2.3; Estimated GFR 55.23 (mL/min/1.73m2); Glucose 117 mg/dL (74-106); HCT 42.8 % (40.0-50.0); HGB 14.4 g/dL (13.5-17.5); Immature Grans % 1.4; Lymphocytes % 11.8; MCH 28.8 pg (27.0-33.0); MCHC 33.6 % (32.0-36.0); MCV 85.6 fL (80-95); MPV 10.3 fL (8.0-11.0); Magnesium 2.1 mg/dL (1.8-2.4); Monocytes % 9.8; Neutrophils % 74.2; Nucleated RBC 0 %; Platelet Count 199 10^3/uL (130-400); Potassium 3.4 mmol/L (3.5-5.1); RDW 13.2 % (11.8-14.1); RDW-SD 41.3 fL; Sodium 141 mmol/L (136-145); Total Protein 6.8 g/dL (6.4-8.2); WBC 8.68 10^3/uL (4.4-10.8)
[2021-08-16 03:32] LABS: Clarity Sl Cloudy (Clear)
[2021-08-16 03:33] LABS: ETHANOL BLOOD < 3.0 mg/dL (<3)
[2021-08-16 03:33] LABS: Tricyclic Antidepressants Negative (Negative)
[2021-08-16 03:34] LABS: Acetaminophen < 2 ug/mL (10-30)
[2021-08-16 03:35] LABS: Bacteria Moderate HPF (Negative); C & S Indicated? Yes; Casts Negative LPF (Negative); Crystals Negative HPF (Negative); Epithelial Cells Negative HPF (Negative); Mucus Moderate (Negative); RBC 20-50 HPF (0-2)
--- NOTE | 2021-08-16 03:45 | DI.CT_ITS ---
Exam(s) CT BRAIN NECK CTA EXAM: CT BRAIN NECK CTA CLINICAL HISTORY: flaccid left hemiparesis. TECHNIQUE: Imaging Protocol: Axial CT angiography was performed with multi-slice acquisition and mu lti-planar and/or 3D reconstructions. CONTRAST MATERIAL: Intravenous: Omnipaque 350 Contrast volume:100 mL COMPARISON: CT CT HEAD WO from 08/16/[address] HEAD WO from 08/16/2021 FINDINGS: CT Head w: Ventricles and Extra axial spaces: Normal in size and morphology for the patient's age. Hemorrhage: None. Cerebral parenchyma: No acute territorial infarct. There is an area of encephalomalacia involving th e posterior left temporal lobe. Midline shift: None. Brainstem/Cerebellum: Normal. Calvarium: Normal. Visualized Paranasal sinuses/Mastoids: There is opacification of the ethmoid air cells bilaterally. The remaining visualized paranasal sinuses are clear. Soft Tissues: Unremarkable. Enhancement: Unremarkable. CTA Neck W: Common Carotid: Right: No dissection, occlusion or significant stenosis. Mild atherosclerosis in the carotid bulb. Left: No dissection, occlusion or significant stenosis. Mild atherosclerosis in the distal common ca rotid and carotid bulb. External Carotid: Right: No occlusion or significant stenosis. Left: No occlusion or significant stenosis. Internal Carotid: Right: No dissection, occlusion or significant stenosis. Mild atherosclerosis at the origin. Left: No dissection, occlusion or significant stenosis. Mild atherosclerosis at the origin. Vertebral Artery: Right: No dissection, occlusion or significant stenosis. Left: No dissection, occlusion or significant stenosis. Mild atherosclerosis in the distal left vert ebral artery. Lung Apices: Normal. Bones: Patient is status post laminectomy at C4 through C6. Degenerative changes are present through out the cervical spine. Soft Tissues: Normal. Thyroid gland: Unremarkable. CTA Brain W: Internal Carotid Arteries: Petrous: Normal. Cavernous: Normal. Mild atherosclerosis. Cerebral: Normal. Anterior Cerebral Arteries: Right: No aneurysm, occlusion or significant stenosis. Left: No aneurysm, occlusion or significant stenosis. Middle Cerebral Arteries: Right: No aneurysm, occlusion or significant stenosis. Left: No aneurysm, occlusion or significant stenosis. Posterior cerebral Arteries: Right: No aneurysm, occlusion or significant stenosis. Left: No aneurysm, occlusion or significant stenosis. Vertebral Arteries: Right: No aneurysm, occlusion or significant stenosis. Left: No aneurysm, occlusion or significant stenosis. Basilar Artery: No aneurysm, occlusion or significant stenosis. IMPRESSION: 1. No large vessel occlusion or significant stenosis on the CT angiography of the head. 2. No acute intracranial process. 3. Ethmoid sinusitis. 4. No occlusion or significant stenosis on the CT angiography of the neck. RADIATION DOSE DELIVERED: 1,156.17mGy.cm Total DLP DATA REPOSITORY: All CT scans at this facility are submitted to the National Radiology Data Registry (NRDR) Dose Index Registry (DIR) with the [employer] (ACR). RADIATION OPTIMIZATION: All CT scans at this facility use at least one of these dose optimization te chniques: automated exposure control; mA and/or kV adjustment per patient size (includes targeted exa ms where dose is matched to clinical indication); or iterative reconstruction.
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
--- NOTE | 2021-08-16 04:07 | NUR.NOTE ---
To DI per cart with technicianNursing Note:
--- NOTE | 2021-08-16 04:22 | DI.VRAD_ITS ---
PROCEDURE INFORMATION: Exam: CT Head Without Contrast Exam date and time: 08/16/2021 2:59 AM Age: 66 years old Clinical indication: Other: Sz TECHNIQUE: Imaging protocol: Computed tomography of the head without contrast. COMPARISON: CT HEAD - STROKE PROTOCOL 06/22/2020 3:31 PM FINDINGS: Brain: Normal. No hemorrhage. Unremarkable white matter. No mass effect. Extra-axial space: No evidence of subdural hemorrhage. Cerebral ventricles: No ventriculomegaly. Paranasal sinuses: Extensive mucosal thickening and opacification noted in ethmoid air cells bilaterally. Visualized sphenoid and maxillary sinuses are clear. Frontal sinus is clear. Mastoid air cells: Right mastoid air cells are chronically opacified. Negative for erosive or destructive change. Middle ear cavity is grossly clear. Left mastoid air cells are clear. Vasculature: Severe vascular calcifications present in the distal left vertebral artery. Vascular calcifications also noted in the right vertebral artery and both distal internal carotid arteries. Bones/joints: Negative for skull fracture or focal bony lesion. Soft tissues: Unremarkable. IMPRESSION: 1. Negative for intracranial hemorrhage or other acute intracranial abnormality. 2. Severe ethmoid sinus disease. 3. Severe distal left vertebral arterial calcification. Dictated and Authenticated by: Tu Hui MD. Ordering:LILLIANA Muller MD
[2021-08-16] MEDS: Omnipaque 350 MG/ML 100 ML BTL IJ (04:32)
--- NOTE | 2021-08-16 04:32 | NUR.NOTE ---
Returns from DI. Monitors reapplied. Patient unsure what happened before he was brought to ED. When asked what his daughter's name is, patient states I don't know. I have 3 or 4 of them.Nursing Note:
[2021-08-16] MEDS: Normal Saline - Diluent 50 ML VIAL IV (04:33)
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
[2021-08-16 06:06] LABS: Source Nasal/Nares
[2021-08-16 07:38] LABS: Anion Gap 8.5 mmol/L (3-11); BUN 13 mg/dL (7-18); CO2 26.5 mmol/L (21.0-32.0); CREATININE 1.1 mg/dL (0.70-1.30); Calcium 8.7 mg/dL (8.5-10.1); Chloride 104 mmol/L (98-107); Glucose 121 mg/dL (74-106); Potassium 3.5 mmol/L (3.5-5.1); Sodium 139 mmol/L (136-145); Troponin I < 0.05 ng/mL (<0.06)
--- NOTE | 2021-08-16 08:23 | DI.RAD_ITS ---
Exam(s) XR PORTABLE CHEST AP EXAM: XR PORTABLE CHEST AP CLINICAL HISTORY: cough TECHNIQUE: 2D digital imaging was performed of the chest. One image was obtained. An AP view was ob tained. COMPARISON: CR XR CHEST 2V PA LATERAL from 03/24/2021 FINDINGS: MEDIASTINUM: Normal. HEART: Normal. PULMONARY VASCULATURE: Normal. LUNGS: No focal consolidating infiltrates. PLEURAL SPACE: No pleural effusion or pneumothorax. BONE:Within normal limits for the patient's age. Stable widening of the right acromioclavicular joint which may be postsurgical. OTHER FINDINGS:Normal. IMPRESSION: No acute pulmonary findings. DATA REPOSITORY: RADIATION DOSE DELIVERED:
[2021-08-16] MEDS: Albuterol HFA 8 GM 60 PUFF INH IH ×3 (08:28→20:17)
[2021-08-16] MEDS: Mometasone 220 MCG 14 DOSE INHALER 1 PUFF IH ×2 (08:29→21:16)
[2021-08-16] MEDS: levETIRAcetam 1,000 MG in Normal Saline 100 ML 400 MG IVPB (08:40)
[2021-08-16] MEDS: POTASSIUM CHLORIDE 20 MEQ/100 ML BAG 50 MEQ IVPB (08:41)
--- NOTE | 2021-08-16 09:53 | DI.VRAD_ITS ---
PROCEDURE INFORMATION: Exam: XR Chest Exam date and time: 08/16/2021 8:10 AM Age: 66 years old Clinical indication: Other: Cough TECHNIQUE: Imaging protocol: XR of the chest. Views: 1 view. COMPARISON: CR XR CHEST 2V PA LATERAL 24/03/2021 15:27 FINDINGS: Scan quality: Exam is technically satisfactory. Lungs: There is minimal chronic prominence of interstitial markings in the lung bases stable from previous exam. There is no new focal infiltrate or nodule. Pleural spaces: Unremarkable. No pleural effusion. No pneumothorax. Heart/Mediastinum: Cardiomediastinal silhouette is normal. Vasculature: Pulmonary vessels are non-engorged. Bones/joints: There is chronic widening of the right acromioclavicular joint unchanged. IMPRESSION: No active cardiopulmonary disease. Dictated and Authenticated by: Andi Ramírez MD. Ordering:[facility] Berkley Hallman MD
[2021-08-16] MEDS: cefTRIAXone 1 GM/50 ML BAG IV (11:27)
[2021-08-16] MEDS: methylPREDNISolone SUCC 125 MG VIAL 60 MG IVP ×2 (11:29→18:31)
[2021-08-16] MEDS: Citalopram 20 MG TAB 40 MG PO (11:30)
[2021-08-16] MEDS: Normal Saline Flush 10 ML SYR IVP ×2 (11:30→18:31)
[2021-08-16] MEDS: Pantoprazole 40 MG TABCR PO (11:30)
[2021-08-16] MEDS: lamoTRIgine 100 MG TAB PO ×2 (11:30→20:16)
[2021-08-16] MEDS: Finasteride 5 MG TAB PO (11:31)
[2021-08-16] MEDS: Clopidogrel 75 MG TAB PO (11:31)
[2021-08-16] MEDS: Cyanocobalamin 500 MCG TAB 1000 MCG PO (11:31)
[2021-08-16] MEDS: Apixaban 5 MG TAB PO ×2 (11:31→20:17)
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
[2021-08-16] MEDS: DOXYCYCLINE 100 MG in Normal Saline 100 ML IVPB (14:50)
[2021-08-16 15:46] LABS: COVID-19 PCR Negative (Negative)
[2021-08-16] MEDS: guaiFENesin 600 MG TABCR PO (20:16)
[2021-08-16] MEDS: Atorvastatin 40 MG TAB PO (20:16)
[2021-08-16] MEDS: levETIRAcetam 500 MG in Normal Saline 100 ML 400 MG IVPB (20:17)
[2021-08-16] MEDS: Tamsulosin 0.4 MG CAPCR PO (22:16)
[2021-08-17] VITALS (30 sets, daily range): BP systolic 100–154; BP diastolic 58–79; PULSE 60–99; RESP 13–28; TEMP 35.7–36.5; O2SAT 91–98
[2021-08-17] MEDS: methylPREDNISolone SUCC 125 MG VIAL 60 MG IVP ×3 (02:09→18:21)
[2021-08-17] MEDS: Normal Saline Flush 10 ML SYR IVP ×4 (02:10→20:26)
[2021-08-17] MEDS: DOXYCYCLINE 100 MG in Normal Saline 100 ML IVPB ×2 (04:03→15:37)
[2021-08-17 06:59] LABS: Anion Gap 12.5 mmol/L (3-11); BUN 11 mg/dL (7-18); CO2 22.5 mmol/L (21.0-32.0); CREATININE 0.9 mg/dL (0.70-1.30); Chloride 108 mmol/L (98-107); Glucose 142 mg/dL (74-106); Potassium 3.9 mmol/L (3.5-5.1); Sodium 143 mmol/L (136-145)
[2021-08-17] MEDS: Mometasone 220 MCG 14 DOSE INHALER 1 PUFF IH ×2 (08:00→20:23)
[2021-08-17] MEDS: Albuterol HFA 8 GM 60 PUFF INH IH ×3 (08:00→20:21)
[2021-08-17] MEDS: Clopidogrel 75 MG TAB PO (08:08)
[2021-08-17] MEDS: Pantoprazole 40 MG TABCR PO (08:08)
[2021-08-17] MEDS: Finasteride 5 MG TAB PO (08:08)
[2021-08-17] MEDS: Cyanocobalamin 500 MCG TAB 1000 MCG PO (08:08)
[2021-08-17] MEDS: Apixaban 5 MG TAB PO ×2 (08:08→20:23)
[2021-08-17] MEDS: lamoTRIgine 100 MG TAB PO ×2 (08:08→20:23)
[2021-08-17] MEDS: guaiFENesin 600 MG TABCR PO ×2 (08:09→20:23)
[2021-08-17] MEDS: Citalopram 20 MG TAB 40 MG PO (08:09)
[2021-08-17] MEDS: levETIRAcetam 500 MG in Normal Saline 100 ML 400 MG IVPB ×2 (08:10→20:24)
[2021-08-17] MEDS: Normal Saline 500 ML IV (08:11)
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
[2021-08-17 10:11] LABS: Lactate 2.2 mmol/L (0.9-1.7)
[2021-08-17 10:33] LABS: Anion Gap 10.8 mmol/L (3-11); BUN 10 mg/dL (7-18); CO2 23.2 mmol/L (21.0-32.0); CREATININE 1.2 mg/dL (0.70-1.30); Calcium 9.2 mg/dL (8.5-10.1); Chloride 108 mmol/L (98-107); Creatine Kinase 73 U/L (39-308); Glucose 153 mg/dL (74-106); Sodium 142 mmol/L (136-145)
[2021-08-17] MEDS: cefTRIAXone 1 GM/50 ML BAG IV (10:45)
--- NOTE | 2021-08-17 12:29 | W.PM.PROGNOT ---
Date of Service Date of service: 08/17/21 Time of Service: 12:30 Assessment and Plan Assessment and plan (1) Seizure disorder: Status: Chronic Assessment and plan: prior hx of seizure trx w/ lamictal however, he has hx of medication noncompliance; therefore unclear as to whether his new tonic/clonic seizure was d/t noncompliance and low lamictal level or d/t cocaine abuse or d/t new CVA. No evidence of hemorrhagic CVA and no evidence of acute cerebral or cervical vascular thrombosis. Also unclear as to his baseline motor function. Will monitor for further seizures, add Keppra pending results of his lamotrigine levels, get EEG and MRI brain on Wednesday (either as inpatient if he remains or as outpatient). Seizure with post-ictal state yesterday; transferred to ICU for closer observation. Now alert/oriented. Med-surg status. Cont Keppra and Lamotrigine. (2) Left hemiparesis: Status: Acute Assessment and plan: unclear as to how much is old deficits from prior CVA vs new deficits. will ask P.T. to evaluate. check MRI brain on Wednesday. (3) Asthma exacerbation in COPD: Status: Acute Assessment and plan: acute coughing with occasional sputum; sputum with normal daniel. Cough improved. CXR w/o acute findings. Likely secondary to bronchitis. Ceftriaxone and doxycycline initiated on admission; will d/c ceftriaxone after todays dose (also treating possible UTI). (4) Spastic hemiparesis: Status: Acute Assessment and plan: Chronic (5) Atrial flutter: Status: Chronic Assessment and plan: continue Apixaban and Plavix. Qualifiers: Atrial flutter type: unspecified Qualified Code(s): I48.92 - Unspecified atrial flutter (6) Pyuria: Status: Acute Assessment and plan: microscopic hematuria and pyuria and bacteriuria. Initially covered w/ Rocephin while awaiting urine cultures; 3 doses after todays dose then d/c. (7) DVT prophylaxis: Status: Acute Assessment and plan: resume his apixaban Subjective Subjective Patient reports: no new complaints, feels better and afebrile; denies nausea, vomiting and shortness of breath Interval history since last seen: Diminished appetite. No seizure activity since yesterday Exam Const General: cooperative and no acute distress Nutritional Appearance: average body habitus Orientation: alert and oriented x3 Eyes Sclera: sclerae normal Pupils: PERRL Resp Effort & Inspection: normal respiratory effort Auscultation: clear to auscultation bilaterally Cardio Rate: regular rate Rhythm: regular rhythm Heart Sounds: S1 normal and S2 normal GI Palpation: soft and nontender Auscultation: normal bowel sounds Skin General skin exam: no rashes or lesions noted Extrem General: no pedal edema and no calf tenderness Objective Last Vital Signs Temp 36.1 C L 08/17/21 08:00 Pulse 83 08/17/21 08:00 Resp 19 08/17/21 08:00 BP 121/64 08/17/21 08:00 Pulse Ox 94 08/17/21 08:00 Laboratory Results - last 24 hr 08/16/21 08/17/21 08/17/21 05:00 06:04 09:57 VBG Lactate Sodium 143 142 Potassium 3.9 4.0 Chloride 108 H 108 H Carbon Dioxide 22.5 23.2 Anion Gap 12.5 H 10.8 BUN 11 10 Creatinine 0.9 1.2 Estimated GFR/1.73 m2 >= 60.00 >= 60.00 Glucose 142 H 153 H Calcium 9.0 9.2 Creatine Kinase 73 SARS-CoV-2 (PCR) Negative 08/17/21 09:57 VBG Lactate 2.2 H* Sodium Potassium Chloride Carbon Dioxide Anion Gap BUN Creatinine Estimated GFR/1.73 m2 Glucose Calcium Creatine Kinase SARS-CoV-2 (PCR)
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
[2021-08-17] MEDS: Tamsulosin 0.4 MG CAPCR PO (20:23)
[2021-08-17] MEDS: Atorvastatin 40 MG TAB PO (20:23)
--- NOTE | 2021-08-17 22:40 | NUR.NOTE ---
AT 2211--PT TRANSFERED OUT OF THE ICU VIA WHEELCHAIR BY PREETI WOODRUFF RN. PT DENIES PAIN, ORIENTED TO THE CALL LIGHT AND TV. NO COMPLAINTS AT THIS.DENIES SOB. SEIZURE PADS PLACED.
[2021-08-18] MEDS: Normal Saline Flush 10 ML SYR IVP ×3 (00:07→10:07)
[2021-08-18] MEDS: methylPREDNISolone SUCC 125 MG VIAL 60 MG IVP ×2 (03:07→09:09)
[2021-08-18] MEDS: DOXYCYCLINE 100 MG in Normal Saline 100 ML IVPB (03:07)
[2021-08-18 03:41] VITALS: BP 130/72; PULSE 76; RESP 18; TEMP 36.2; O2SAT 94
[2021-08-18 07:00] VITALS: PULSE 61
[2021-08-18 07:18] LABS: Anion Gap 10.3 mmol/L (3-11); BUN 22 mg/dL (7-18); CO2 24.7 mmol/L (21.0-32.0); CREATININE 1.1 mg/dL (0.70-1.30); Calcium 8.9 mg/dL (8.5-10.1); Chloride 108 mmol/L (98-107); Glucose 139 mg/dL (74-106); Potassium 4.1 mmol/L (3.5-5.1); Sodium 143 mmol/L (136-145)
[2021-08-18] MEDS: Mometasone 220 MCG 14 DOSE INHALER 1 PUFF IH (08:18)
[2021-08-18] MEDS: Albuterol HFA 8 GM 60 PUFF INH IH ×2 (08:18→12:37)
[2021-08-18 08:26] VITALS: BP 123/74; PULSE 77; RESP 18; TEMP 36.4; O2SAT 93
[2021-08-18] MEDS: Apixaban 5 MG TAB PO (09:07)
[2021-08-18] MEDS: Finasteride 5 MG TAB PO (09:08)
[2021-08-18] MEDS: Cyanocobalamin 500 MCG TAB 1000 MCG PO (09:08)
[2021-08-18] MEDS: lamoTRIgine 100 MG TAB PO (09:08)
[2021-08-18] MEDS: Clopidogrel 75 MG TAB PO (09:08)
[2021-08-18] MEDS: guaiFENesin 600 MG TABCR PO (09:08)
[2021-08-18] MEDS: Citalopram 20 MG TAB 40 MG PO (09:08)
[2021-08-18] MEDS: Pantoprazole 40 MG TABCR PO (09:08)
[2021-08-18 09:28] LABS: Prolactin 6.9 ng/mL (2.1-17.7)
--- NOTE | 2021-08-18 09:50 | DI.MRI_ITS ---
Exam(s) MR BRAIN WO EXAM: MR BRAIN WO CLINICAL HISTORY: breakthrough seizure TECHNIQUE: Multiplanar multisequence MRI of the brain was performed. COMPARISON: CT CT BRAIN NECK CTA from 08/16/[address] BRAIN NECK CTA from 08/16/2021 FINDINGS: CEREBRAL PARENCHYMA: There is no evidence of intracranial hemorrhage, mass effect, or shift of midline structures. Ventri cles are not enlarged or shifted. Area of un encephalomalacia noted in the left temporal lobe just above the petrous temporal bone invo lving the inferior temporal gyrus, consistent with area of probable prior infarction. No restricted diffusion at this level seen on DWI. Small foci of signal abnormality in the right cerebellar hemisp here are also most probably related to prior ischemic events, none exhibiting acute signal. No signi ficant focal findings in the zainab and midbrain and thalami. Few small nonspecific sub cm foci of whi te matter signal abnormality are seen in the right periventricular/supraventricular white matter, exh ibiting nonspecific appearance. There is no significant focal signal abnormality evident on diffusion imaging to suggest acute ischem ic event. PITUITARY GLAND: No mass nor parasellar abnormality. No obvious abnormality in the cavernous sinuses. FLOW VOIDS: The expected flow void are noted. No evidence of obvious aneurysm nor obvious vascular ma lformation. PARANASAL SINUSES: Mucosal thickening is noted in the left sphenoid sinus and ethmoidal air cells. T he other sinuses appear clear. ORBITS: No obvious findings. IMPRESSION: No evidence of acute intracranial infarct nor intracranial hemorrhage. There is an area of encephalomalacia in the left temporal lobe, similar to what was seen on the recen t CT scan of 08/06/2021. No evidence of restricted diffusion at this level to suggest that it is an acute infarction. Nonspecific small white matter foci in the right paraventricular/supra ventricular white matter. No associated hemorrhage nor surrounding edema nor abnormal signal on diffusion imaging. These are nons pecific findings. DATA REPOSITORY:
--- NOTE | 2021-08-18 10:05 | PDOC.CMPRO ---
- If Service Date Differs Date of service: 08/18/21 Time of Service: 10:05 Care Management Progress Note S/O: Miguel was laying in bed when CM met with him. He is anticipating being discharged home today. He has no new concerns and will arrange his own transportation. A: 66 year old male admitted to [facility] on 08/16/21 for seizure, postictal left hemiparesis P: Miguel will likely be discharged home with resumption of [facility]. He will follow up with his PCP and discharge plan of care. CM will continue to support patient, family and discharge planning needs.
[2021-08-18] MEDS: levETIRAcetam 500 MG in Normal Saline 100 ML 400 MG IVPB (10:07)
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
[2021-08-18] MEDS: Ergocalciferol 50000 UNITS CAP PO (10:53)
[2021-08-18] MEDS: Azithromycin 250 MG TAB 500 MG PO (10:53)
[2021-08-18 11:13] VITALS: BP 120/68; PULSE 72; RESP 18; TEMP 36.5; O2SAT 96
--- NOTE | 2021-08-18 12:44 | CMDISCH_ITS ---
- If Service Date Differs Date of service: 08/18/21 Time of Service: 12:44 LACE Index Scoring Tool - Questions: Length of Stay (in days): 2 Acuity (Admit via E.D.?): Yes Comorbidities: Previous M.I., Cerebrovascular Disease, Congestive Heart Failure, Chronic Pulmonary Disease E.D. Visits: 3 - Answers: Total Score: 13 Risk of Readmission: High Risk Care Management Discharge Reason for Hospitalization: seizure, postictal left hemiparesis Discharge Plan: Discharge home and transport via private vehicle with friend Brooke with resumption of [facility] SN. CM notified [facility]. Follow up with PCP and community providers. Patient/Family Education Needs: Review discharge instructions and plan to follow up with community providers. ask me three. Services Needed at Discharge: Home Health Care Services (Resumption of [facility] SN.)
[2021-08-18 13:00] VITALS: PULSE 95
[2021-08-19 12:35] LABS: Lamotrigine 4.4 mcg/mL (2.5 - 15.0)
--- NOTE | 2021-08-19 14:06 | PDOC.HHF2F ---
Home Health Certification Home Health Certification: 1. Encounter Date and Reason I certify that Miguel Pérez was seen by Enzo Sloan MD on 08/19/21 and that I had a [id number] encounter with this patient that meets the physician face to face encounter requirements. 2. Clinical Findings Supporting Skilled Need and Homebound Status I certify that home health services are medically necessary, include either intermittent detention and/or physical/speech therapy, and that this patient is homebound in that absences from the home require considerable and taxing effort and are infrequent or of short duration, or are attributable to the need to receive medical care. [X] (a) Attached documentation from encounter provides clinical findings supporting skilled need and homebound status (including what assistance patient requires to leave the home). The encounter with the patient was in whole, or in part, for the following medical condition, which is the primary reason for home health care: Seizure,Postictal Left Hemiparesis Jail: Evaluate and monitor neurologic status and medication monitoring; seizure disorder Physical Therapy: Speech Therapy: ASSOCIATE PROFESSOR OF FORESTRY: Assist in obtaining services in the community. Homebound: Debility from hospitalization. 3. Certification and Authentication I certify that I composed the above information based on my clinical judgement relating to this patient's medical condition and, if applicable, clinical findings communicated to me by the NPP or inpatient physician who performed the Home Health Referral. All further orders will be obtained through Aissatou Briggs (Community Based Physician - PCP)
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
== END 2021-08-18 15:09 | disposition home or self-care (01) ==
LOC: ER 06:35 → MS 06:39 → ICU 13:11 → MS 08-18 08:25
PROVIDERS: Family Medicine; Admitting Provider Internal Medicine; Emergency Provider Emergency Medicine; PCP Nurse Practitioner; Visit Provider Internal Medicine
DX: G40.909 Epilepsy, unspecified, not intractable, without status epilepticus (principal); J45.901 Unspecified asthma with (acute) exacerbation; I69.354 Hemiplegia and hemiparesis following cerebral infarction affecting left non-dominant side; Z79.899 Other long term (current) drug therapy; J44.9 Chronic obstructive pulmonary disease, unspecified; I42.9 Cardiomyopathy, unspecified; I25.10 Atherosclerotic heart disease of native coronary artery without angina pectoris; Z86.711 Personal history of pulmonary embolism; Z79.01 Long term (current) use of anticoagulants; I48.92 Unspecified atrial flutter; Z20.822 Contact with and (suspected) exposure to COVID-19; G93.89 Other specified disorders of brain; G89.4 Chronic pain syndrome; I50.22 Chronic systolic (congestive) heart failure; F43.23 Adjustment disorder with mixed anxiety and depressed mood; I25.2 Old myocardial infarction; T42.6X6A Underdosing of other antiepileptic and sedative-hypnotic drugs, initial encounter; R82.81 Pyuria; R31.29 Other microscopic hematuria; Z87.820 Personal history of traumatic brain injury
CPT/HCPCS: 36415; 51701; 70496; 70498; 80048; 80053; 80175; 80307; 82550; 87077; 87635; 90662; 93005; 94640; 97162; 97530; 99285; 70450; 70551; 71045; 80320; 80329; 81003; 81015; 83605; 83735; 84146; 84484; 85025; 87070; 87086; 87205; 93010; 99217; 99220; 99226; G0378; J0696; J1953; J2930; J3480; J3490

== ENCOUNTER 2021-09-04 14:13 | Inpatient (IN) | payer MEDICARE, SELFPAY ==
[2021-09-04] VITALS (88 sets, daily range): BP systolic 90–140; BP diastolic 59–97; PULSE 53–86; RESP 8–25; TEMP 36.6; O2SAT 85–100
--- NOTE | 2021-09-04 14:45 | DI.CT_ITS ---
Exam(s) CT CHEST/ABD/PEL W EXAM: CT CHEST/ABD/PEL W CLINICAL HISTORY: ams, fall. TECHNIQUE: Imaging Protocol: Axial computed tomography images with coronal and sagittal reformatted images were created and reviewed CONTRAST MATERIAL: Intravenous: Omnipaque 350 Contrast volume:100 ml Oral: no COMPARISON: CT CT BRAIN NECK CTA from 09/04/2021 FINDINGS: CHEST: Tracheobronchial tree: Patent where visualized. Mediastinum and [place]iss[place]: No dominant adenopathy or fluid collection. Pulmonary parenchyma: No consolidation or dominant measurable mass. Pleura: No effusion or pneumothorax. Lymph nodes: Within normal limits. Aorta: Thoracic portion non-dilated. No dissection. Minimal atherosclerotic changes. Heart: Mildly enlarged. Mild coronary artery calcifications. Bones: Unremarkable for age. No lytic or blastic lesions. No acute fractures. Degenerative changes . ABDOMEN: Respiratory motion on the upper abdomen Liver: Normal density. No measurable mass. Gallbladder and biliary tract: No radiodense calculus or dilation. Pancreas: Normal density, no abnormal calcifications or inflammatory process. Spleen: Normal. Kidneys: Normal size, contour and axis. No radiodense stones or obstructive uropathy. No masses seen. Adrenal glands: No masses seen. Aorta: Abdominal portion non-dilated. Lymph nodes: Within normal limits. Soft tissues: Unremarkable. PELVIS: Bladder: Symmetric distention, no gross wall thickening. Bowel: No obstruction or bowel wall thickening. Peritoneal cavity: No ascites, collection or mesenteric inflammatory response. Bones: Unremarkable for age.. Reproductive organs: Apparent prior prostatectomy.. Fluid in the left inguinal canal. IMPRESSION: No acute abnormality in the chest abdomen or pelvis.. RADIATION DOSE DELIVERED: 1,213.42mGy.cm Total DLP DATA REPOSITORY: All CT scans at this facility are submitted to the National Radiology Data Registry (NRDR) Dose Index Registry (DIR) with the [employer] (ACR). RADIATION OPTIMIZATION: All CT scans at this facility use at least one of these dose optimization te chniques: automated exposure control; mA and/or kV adjustment per patient size (includes targeted exa ms where dose is matched to clinical indication); or iterative reconstruction.
--- NOTE | 2021-09-04 14:45 | DI.RAD_ITS ---
Exam(s) XR ANKLE RT COMPLETE XR FOOT RT LIMITED EXAM: XR FOOT RT LIMITED AND XR ANKLE RT COMPLETE CLINICAL HISTORY: pain, swelling. TECHNIQUE: 2D digital imaging was performed. Two views of the foot and three views of the ankle. COMPARISON: CR,XR XR FOOT LT COMPLETE from 11/23/2019 CR,XR XR ANKLE RT COMPLETE from 09/04/2021 CR,XR XR ANKLE RT COMPLETE from 09/04/2021 FINDINGS: BONES: There is an oblique fracture extending through the lateral malleolus to the level of the ankle mortise. There is an additional fracture seen extending transversely through the medial malleolus. The ankle mortise is disrupted. Additional fracture is seen in the posterior distal tibial. There is smoothly marginated bony density beneath tip of the lateral malleolus which appears chronic. No b vita destructive lesion is seen. The talar dome appears intact. The foot films are somewhat limited due to overlying sock. There is a questionable lucency in the navicular. There is a question of a b ipartite sesamoid versus sesamoid fracture. This is only seen on the lateral view. JOINTS: No dislocation present. SOFT TISSUE: Marked soft tissue swelling around the ankle. IMPRESSION: Trimalleolar fracture with displacement. Question of nondisplaced navicular fracture and sesamoid fracture versus artifact. DATA REPOSITORY: RADIATION DOSE DELIVERED:
--- NOTE | 2021-09-04 14:45 | RT.EKG_ITS ---
APPROVED REPORT Exam: Resting ECG Reason for Exam: [facility] Patient Location: E HR:72 bpm ECG Measurements Heart Rate 72 AXIS UT 163 P 72 QRSd 94 QRS 41 QT 430 T 255 QTc 471 Conclusion Sinus rhythm...normal P axis, V-rate 60- 99 Probable left atrial enlargement...P >50mS, <-0.10mV V1 Inferior infarct, age indeterminate...Q>35mS, T neg, II III aVF Nonspecific T abnormalities, lateral leads...T <-0.10mV, I aVL V5 V6. Sinus. No STEMI. I have reviewed and interpreted ECG and agree with software generated interpretation.
[2021-09-04 15:03] LABS: Lactate 1.8 mmol/L (0.6-1.4)
[2021-09-04 15:07] LABS: Abs Immature Grans 0.03 10^3/uL (0.0-0.06); Absolute Basophil Count 0.06 10^3/uL (0.0-0.2); Absolute Lymphocyte Count 1.52 10^3/uL (1.2-3.4); Absolute Monocyte Count 0.89 10^3/uL (0.1-0.8); Absolute Neutrophil Count 6.59 10^3/uL (1.2-6.7); Basophils % 0.6; Eosinophils % 3.2; HCT 46.2 % (40.0-50.0); HGB 14.6 g/dL (13.5-17.5); Immature Grans % 0.3; Lymphocytes % 16.2; MCH 28.7 pg (27.0-33.0); MCHC 31.6 % (32.0-36.0); MCV 90.9 fL (80-95); MPV 10.1 fL (8.0-11.0); Monocytes % 9.5; Neutrophils % 70.2; Nucleated RBC 0 %; Platelet Count 168 10^3/uL (130-400); RBC 5.08 10^6/uL (4.36-5.78); RDW 13.9 % (11.8-14.1); RDW-SD 46.5 fL; WBC 9.39 10^3/uL (4.4-10.8)
[2021-09-04 15:18] LABS: Ammonia 15 umol/L (11-32)
[2021-09-04 15:25] LABS: ALT 24 U/L (16-63); AST 20 U/L (15-37); Albumin 4.1 g/dL (3.4-5.0); Alkaline Phosphatase 128 U/L (46-116); Anion Gap 4.9 mmol/L (3-11); BUN 9 mg/dL (7-18); Bilirubin, Total 0.5 mg/dL (0.2-1.0); CO2 33.1 mmol/L (21.0-32.0); CREATININE 1.2 mg/dL (0.70-1.30); Calcium 9.1 mg/dL (8.5-10.1); Chloride 105 mmol/L (98-107); Glucose 120 mg/dL (74-106); Magnesium 2.7 mg/dL (1.8-2.4); Potassium 4.2 mmol/L (3.5-5.1); Sodium 143 mmol/L (136-145)
[2021-09-04 15:26] LABS: Troponin I < 0.05 ng/mL (<0.06)
[2021-09-04 15:30] LABS: TSH (W/Ref FT4) 1.25 uIU/mL (0.36-3.74)
[2021-09-04 15:49] LABS: Creatine Kinase 232 U/L (39-308)
[2021-09-04] MEDS: Lidocaine 2% Jelly 6 ML SYR (15:50)
[2021-09-04 15:52] LABS: ETHANOL BLOOD < 3.0 mg/dL (<10)
[2021-09-04 15:53] LABS: Prothrombin Time 10.1 sec (9.3-11.0)
[2021-09-04 15:59] LABS: Bilirubin Negative (Negative); Blood Trace-intact (Negative); Clarity Clear (Clear); Glucose Negative (Negative); Ketones Negative (Negative); Leukocyte Esterase Negative (Negative); Nitrite Negative (Negative); Specific Gravity 1.025 (1.005-1.025); Urobilinogen 0.2 EU/dL (Up TO 0.2)
--- NOTE | 2021-09-04 16:00 | DI.CT_ITS ---
Exam(s) CT BRAIN NECK CTA EXAM: CT BRAIN NECK CTA CLINICAL HISTORY: LOC, hx cva. TECHNIQUE: Imaging Protocol: Axial CT angiography was performed with multi-slice acquisition and mu lti-planar and/or 3D reconstructions. CONTRAST MATERIAL: Intravenous: Omnipaque 350 Contrast volume:structured data in ml COMPARISON: CT CT BRAIN NECK CTA from 08/16/2021 FINDINGS: CT Head W/O and W contrast: Ventricles and Extra axial spaces: Normal in size and morphology for the patient's age. Hemorrhage: None. Cerebral parenchyma: Stable area of encephalomalacia in the posterior left temporal lobe. No acute i nfarct Midline shift: None. Brainstem/Cerebellum: Normal. Calvarium: Normal. Visualized Paranasal sinuses/Mastoids: Stable right mastoid air cell opacification. Stable mild muco paola thickening ethmoid sinuses. Soft Tissues: Unremarkable. Enhancement: Normal. CTA Brain W: Internal Carotid Arteries: Petrous: Normal. Cavernous: Normal. Cerebral: Normal. Middle Cerebral Arteries: Right: No aneurysm, occlusion or significant stenosis. Left: No aneurysm, occlusion or significant stenosis. Anterior Cerebral Arteries: Right: No aneurysm, occlusion or significant stenosis. Left: No aneurysm, occlusion or significant stenosis. Posterior cerebral Arteries: Right: No aneurysm, occlusion or significant stenosis. Left: No aneurysm, occlusion or significant stenosis. Vertebral Arteries: Right: No aneurysm, occlusion or significant stenosis. Left: No aneurysm, occlusion or significant stenosis. Basilar Artery: No aneurysm, occlusion or significant stenosis. CTA Neck W: Common Carotid: Right: Minimal plaque common carotid bulb. No aneurysm, occlusion or significant stenosis. Left: Minimal plaque common carotid bulb. No aneurysm, occlusion or significant stenosis. External Carotid: Right: No aneurysm, occlusion or significant stenosis. Left: No aneurysm, occlusion or significant stenosis. Internal Carotid: Right: No aneurysm, occlusion or significant stenosis. Left: No aneurysm, occlusion or significant stenosis. Vertebral Artery: Right: No aneurysm, occlusion or significant stenosis. Left: No aneurysm, occlusion or significant stenosis. Lung Apices: Normal. Bones: Degenerative changes. Soft Tissues: Normal. IMPRESSION: 1. Normal CTA examination of the [place]. 2. Stable area of left temporal lobe encephalomalacia. Stable right mastoid effusion. No acute abno rmality. 3. Minimal plaque common carotid bulbs without visible stenosis.. RADIATION DOSE DELIVERED: 1,905.69mGy.cm Total DLP DATA REPOSITORY: All CT scans at this facility are submitted to the National Radiology Data Registry (NRDR) Dose Index Registry (DIR) with the [employer] (ACR). RADIATION OPTIMIZATION: All CT scans at this facility use at least one of these dose optimization te chniques: automated exposure control; mA and/or kV adjustment per patient size (includes targeted exa ms where dose is matched to clinical indication); or iterative reconstruction.
[2021-09-04 16:07] LABS: Bacteria Negative HPF (Negative); C & S Indicated? No; Casts Negative LPF (Negative); Crystals Negative HPF (Negative); Epithelial Cells Few HPF (Negative); Mucus Negative (Negative); WBC 0-2 HPF (0-5)
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
[2021-09-04 16:21] LABS: *AMPHETAMINES SCREEN URINE Negative (Negative); *BARBITURATES SCREEN URINE Negative (Negative); *BENZODIAZEPINES SCREEN URINE Negative (Negative); Cannabinoids THC Positive (Negative); Cocaine Screen,Urine Negative (Negative); METHADONE URINE SCREEN Negative (Negative); OPIATES URINE SCREEN Negative (Negative)
[2021-09-04 16:26] LABS: Tricyclic Antidepressants Negative (Negative)
[2021-09-04] MEDS: Omnipaque 350 MG/ML 100 ML BTL IJ ×2 (16:46→16:56)
[2021-09-04] MEDS: Normal Saline Flush 10 ML SYR IVP ×2 (16:47→16:56)
[2021-09-04] MEDS: Normal Saline - Diluent 50 ML VIAL IV ×2 (16:47→16:55)
--- NOTE | 2021-09-04 17:13 | DI.VRAD_ITS ---
PROCEDURE INFORMATION: Exam: CT Angiography Head With Contrast, Arteriography Exam date and time: 09/04/2021 4:04 PM Age: 66 years old Clinical indication: Other: Loc HX CVA fall TECHNIQUE: Imaging protocol: Computed tomography angiography of the head with contrast. Exam focused on the arteries. 3D rendering (Not supervised by radiologist): MIP and/or 3D reconstructed images were created by the technologist. Contrast material: OMNIPAQUE 350; Contrast volume: 85 ml; Contrast route: INTRAVENOUS (IV); COMPARISON: CT BRAIN NECK CTA 08/16/2021 4:04 AM FINDINGS: ANTERIOR CIRCULATION: Right internal carotid artery: Unremarkable. Intracranial segment is patent with no significant stenosis. No aneurysm. Right middle cerebral artery: Unremarkable. No occlusion or significant stenosis. No aneurysm. Right anterior cerebral artery: Unremarkable. No occlusion or significant stenosis. No aneurysm. Left internal carotid artery: Unremarkable. Intracranial segment is patent with no significant stenosis. No aneurysm. Left middle cerebral artery: Unremarkable. No occlusion or significant stenosis. No aneurysm. Left anterior cerebral artery: Unremarkable. No occlusion or significant stenosis. No aneurysm. POSTERIOR CIRCULATION: Right vertebral artery: Unremarkable. No occlusion or significant stenosis. No aneurysm. Left vertebral artery: Unremarkable. No occlusion or significant stenosis. No aneurysm. Basilar artery: Unremarkable. No occlusion or significant stenosis. No aneurysm. Right posterior cerebral artery: Unremarkable. No occlusion or significant stenosis. No aneurysm. Left posterior cerebral artery: Unremarkable. No occlusion or significant stenosis. No aneurysm. Brain: Cortical volume loss again noted. There is left temporal encephalomalacia, unchanged from previous study. No evidence for acute intracranial hemorrhage. Cerebral ventricles: No ventriculomegaly. Bones/joints: Unremarkable. No acute fracture. Mastoid air cells: Fairly significant right mastoid opacification is again identified. There is mild mucoperiosteal thickening in the ethmoid air cells. Soft tissues: Unremarkable. IMPRESSION: No evidence for large vessel occlusion. No significant changes from previous study. PROCEDURE INFORMATION: Exam: CT Angiography Neck With Contrast Exam date and time: 09/04/2021 4:04 PM Age: 66 years old Clinical indication: Other: Loc HX CVA fall TECHNIQUE: Imaging protocol: Computed tomography angiography of the neck with contrast. 3D rendering (Not supervised by radiologist): MIP and/or 3D reconstructed images were created by the technologist. Contrast material: OMNIPAQUE 350; Contrast volume: 85 ml; Contrast route: INTRAVENOUS (IV); COMPARISON: CT BRAIN NECK CTA 08/16/2021 4:04 AM FINDINGS: Right common carotid artery: No stenosis. No dissection or occlusion. Right internal carotid artery: No stenosis of the extracranial segment. No dissection or occlusion. Right external carotid artery: No occlusion or stenosis of the origin. Left common carotid artery: No stenosis. No dissection or occlusion. Left internal carotid artery: No stenosis of the extracranial segment. No dissection or occlusion. Left external carotid artery: No occlusion or stenosis of the origin. Right vertebral artery: No stenosis. No dissection or occlusion. Left vertebral artery: No stenosis. No dissection or occlusion. Soft tissues: Normal. No significant soft tissue swelling. Bones/joints: Status post multilevel laminectomy C4-C6. Anterolisthesis C4-C5 again noted. IMPRESSION: No changes from previous exam. No evidence for significant stenosis or dissection. REFERENCES: NASCET CRITERIA. The degree of internal carotid artery stenosis is based on NASCET criteria. Normal is no stenosis. Mild is less than 50% stenosis. Moderate is 50-69% stenosis. Severe is 70% to 99% stenosis. Total occlusion is no detectable patent lumen. Dictated and Authenticated by: Nikki Siegel MD. Ordering:SPRING Nava MD
[2021-09-04] MEDS: levETIRAcetam 1,000 MG in Normal Saline 100 ML 400 MG IVPB (17:19)
[2021-09-04] MEDS: Normal Saline 1,000 ML 1000 ML IV (17:19)
--- NOTE | 2021-09-04 17:22 | DI.VRAD_ITS ---
PROCEDURE INFORMATION: Exam: XR Right Ankle Exam date and time: 09/04/2021 5:10 PM Age: 66 years old Clinical indication: Other: Ankle swelling and pain TECHNIQUE: Imaging protocol: XR Right ankle. Views: 3 or more views. COMPARISON: CT LOWER EXTREMITY RT WO 11/23/2019 6:32 PM FINDINGS: Bones/joints: There is an oblique fracture of the distal fibula with very minimal comminution. There is mild distraction and impaction. There is a slightly comminuted fracture of the medial malleolus with medial displacement of the distal fibula and tibia. There is associated soft tissue swelling. There appears to be a posterior tibial plafond fracture noted on the lateral view. Prominent ankle effusion present. Soft tissues: See Bones/joints finding. IMPRESSION: Trimalleolar fracture with medial displacement. Dictated and Authenticated by: Nikki Siegel MD. Ordering:SPRING Nava MD
--- NOTE | 2021-09-04 17:36 | DI.VRAD_ITS ---
PROCEDURE INFORMATION: Exam: CT Chest With Contrast; Diagnostic Exam date and time: 09/04/2021 4:54 PM Age: 66 years old Clinical indication: Injury or trauma; Fall; Generalized; Blunt trauma (contusions or hematomas) TECHNIQUE: Imaging protocol: Diagnostic computed tomography of the chest with contrast. 3D rendering (Not supervised by radiologist): MIP and/or 3D reconstructed images were created by the technologist. Contrast material: OMNIPAQUE 350; Contrast volume: 100 ml; Contrast route: INTRAVENOUS (IV); COMPARISON: CT CHEST/ABD/PEL W 04/07/2020 5:50 PM FINDINGS: Lungs: Unremarkable. No consolidation. No masses. Pleural spaces: Unremarkable. No pneumothorax. No pleural effusion. Heart: Coronary artery calcifications/stents noted. No cardiomegaly. No pericardial effusion. Aorta: Unremarkable. No aortic aneurysm. Lymph nodes: Unremarkable. No enlarged lymph nodes. Bones/joints: Unremarkable. No acute fracture. Soft tissues: Unremarkable. Other findings: Respiratory motion noted. IMPRESSION: No evidence for acute posttraumatic abnormality. PROCEDURE INFORMATION: Exam: CT Abdomen And Pelvis With Contrast Exam date and time: 09/04/2021 4:54 PM Age: 66 years old Clinical indication: Injury or trauma; Fall; Generalized; Blunt trauma (contusions or hematomas) TECHNIQUE: Imaging protocol: Computed tomography of the abdomen and pelvis with contrast. 3D rendering (Not supervised by radiologist): MIP and/or 3D reconstructed images were created by the technologist. Contrast material: OMNIPAQUE 350; Contrast volume: 100 ml; Contrast route: INTRAVENOUS (IV); COMPARISON: CT CHEST/ABD/PEL W 04/07/2020 5:50 PM FINDINGS: Liver: Normal. No mass. Gallbladder and bile ducts: Gallbladder contracted. Pancreas: Normal. No ductal dilation. Spleen: Normal. No splenomegaly. Adrenal glands: Normal. No mass. Kidneys and ureters: Normal. No hydronephrosis. Stomach and bowel: Unremarkable. No obstruction. No mucosal thickening. Appendix: No evidence of appendicitis. Intraperitoneal space: Unremarkable. No free air. No significant fluid collection. Vasculature: Mild atherosclerotic change present in the vasculature. Lymph nodes: Unremarkable. No enlarged lymph nodes. Urinary bladder: Unremarkable as visualized. Reproductive: Unremarkable as visualized. Bones/joints: Unremarkable. No acute fracture. Soft tissues: Minimal fluid attenuation noted left inguinal hernia, not significantly changed from prior study. Other findings: Respiratory motion slightly limits the exam. IMPRESSION: No evidence for acute posttraumatic abnormality. Dictated and Authenticated by: Nikki Siegel MD. Ordering:SPRING Nava MD
--- NOTE | 2021-09-04 17:38 | DI.VRAD_ITS ---
PROCEDURE INFORMATION: Exam: XR Right Toe(s) Exam date and time: 09/04/2021 5:10 PM Age: 66 years old Clinical indication: Other: Pain, swelling TECHNIQUE: Imaging protocol: XR Right toes. Views: Minimum 2 views. COMPARISON: CT LOWER EXTREMITY RT WO 11/23/2019 6:32 PM FINDINGS: Bones/joints: Trimalleolar ankle fracture noted. See separate report. There appears to be a navicular fracture as well, nondisplaced. New lines there is mild midfoot soft tissue swelling. On the lateral view there is the suggestion of possible sesamoid bone fracture versus nutrient vesse at the 1st metatarsal level. Soft tissues: See Bones/joints finding. IMPRESSION: Concern for navicular fracture in the foot. Sesamoid bone involvement not excludable. Dictated and Authenticated by: Nikki Siegel MD. Ordering:SPRING Nava MD
[2021-09-04 18:12] LABS: Acetaminophen < 2 ug/mL (10-30); Salicylate < 2.8 mg/dL (<2.8)
[2021-09-04 19:06] LABS: Troponin I < 0.05 ng/mL (<0.06)
[2021-09-04 21:38] LABS: COVID-19 PCR Negative (Negative)
[2021-09-04] MEDS: Normal Saline 1,000 ML 125 ML IV (22:45)
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
[2021-09-04] MEDS: Ibuprofen 600 MG TAB PO (23:20)
[2021-09-04] MEDS: Pantoprazole 40 MG VIAL IVP (23:21)
[2021-09-05] VITALS (153 sets, daily range): BP systolic 70–116; BP diastolic 39–81; PULSE 50–75; RESP 9–28; TEMP 36.6–37.3; O2SAT 94–100; BMI 27.3
[2021-09-05 00:01] LABS: Acetaminophen < 2 ug/mL (10-30)
[2021-09-05 06:05] LABS: Abs Immature Grans 0.02 10^3/uL (0.0-0.06); Absolute Basophil Count 0.04 10^3/uL (0.0-0.2); Absolute Eosinophil Count 0.22 10^3/uL (0.0-0.7); Absolute Lymphocyte Count 1.41 10^3/uL (1.2-3.4); Absolute Neutrophil Count 3.63 10^3/uL (1.2-6.7); Basophils % 0.7; Eosinophils % 3.7; HCT 35.7 % (40.0-50.0); HGB 11.2 g/dL (13.5-17.5); Immature Grans % 0.3; Lymphocytes % 23.4; MCHC 31.4 % (32.0-36.0); MCV 92.5 fL (80-95); MPV 10.4 fL (8.0-11.0); Monocytes % 11.6; Neutrophils % 60.3; Nucleated RBC 0 %; Platelet Count 118 10^3/uL (130-400); RBC 3.86 10^6/uL (4.36-5.78); RDW 14.6 % (11.8-14.1); RDW-SD 49.6 fL; WBC 6.02 10^3/uL (4.4-10.8)
[2021-09-05 06:13] LABS: Anion Gap 5.8 mmol/L (3-11); BUN 9 mg/dL (7-18); CO2 29.2 mmol/L (21.0-32.0); CREATININE 1.1 mg/dL (0.70-1.30); Chloride 109 mmol/L (98-107); Glucose 94 mg/dL (74-106); Potassium 4.2 mmol/L (3.5-5.1); Sodium 144 mmol/L (136-145)
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
--- NOTE | 2021-09-05 10:11 | NUR.NOTE ---
Nursing Note: Patient spoke with his son on the phone this morning. Had his son go to his nightstand to look at the pill bottle that he took the medication to overdose on yesterday. Son, Marciano, states that it is Tramadol and the bottle is empty. The patient feels there were about 20 pills in there that he took. Updated .
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
--- NOTE | 2021-09-05 14:05 | DI.RAD_ITS ---
Exam(s) XR ANKLE RT 2V EXAM: XR ANKLE RT 2V CLINICAL HISTORY: RIGHT ANKLE FRACTURE. TECHNIQUE: 2D and realtime digital imaging was performed. COMPARISON: CR,XR XR ANKLE RT COMPLETE from 09/04/2021 CR,XR XR ANKLE RT COMPLETE from 09/04/2021 FINDINGS: Fluoroscopy was provided for Dr. Muniz. The ankle alignment is improved when compared with pre reduc tion films. A cast has been placed. Please see procedure note for details. Fluoro time 8.4 seconds RADIATION DOSE DELIVERED: deandre Londono=0.25 mGy
[2021-09-05] MEDS: Normal Saline 1,000 ML 125 ML IV (14:09)
[2021-09-05] MEDS: fentaNYL 100 MCG/2 ML VIAL IVP ×2 (14:44→14:59)
[2021-09-05] MEDS: Albuterol/Ipratropium 3 ML UPD VIAL UPD (14:57)
--- NOTE | 2021-09-05 15:21 | W.PM.PROGNOT ---
Date of Service Date of service: 09/05/21 Time of Service: 15:00 Assessment and Plan Assessment and plan (1) Trimalleolar fracture of ankle, closed: Status: Acute Assessment and plan: 66 year old male postop day #0 status post right ankle displaced trimalleolar ankle fracture and possible navicular fracture closed treatment with manipulation and splinting under anesthesia Complicated situation given significant medical and social problems. Also minimal ambulator, largely wheelchair?bound due to left-sided issues after stroke. Too swollen and not appropriate from a psychiatric standpoint for ORIF today. Fortunately, stable and well reduced in plaster splint. Recommend strict elevation. Should wiggle toes, bend and straighten knee to prevent stiffness and improve circulation. Multimodal pain control. Patient okay for discharge from an orthopedic standpoint. Currently admitted for possible suicide attempt and overdose issues. Follow-up next week with Dr. Muniz as outpatient [facility] orthopedics. Office will call Wednesday to arrange appointment. Plan to check alignment in splint next week and continue closed treatment versus staged ORIF once swelling and secondary issues are improved. Discussed with hospitalist Dr. Gooden Qualifiers: Encounter type: initial encounter Laterality: right Qualified Code(s): S82.851A - Displaced trimalleolar fracture of right lower leg, initial encounter for closed fracture Subjective Subjective Interval history since last seen: No complaints Exam Narrative Exam Narrative: No acute distress. More appropriate, conversant, and participatory in medical information than earlier this morning. Right ankle elevated on pillows in short leg splint. Clean dry intact. Demonstrates active motor toes. Sensation intact exposed toes as well. No pain with passive stretch. All leg compartments soft around top of splint. Objective Last Vital Signs Temp 98.6 F 09/05/21 15:05 Pulse 68 09/05/21 15:05 Resp 13 09/05/21 15:05 BP 106/54 L 09/05/21 15:05 Pulse Ox 96 09/05/21 15:05 Laboratory Results - last 24 hr 09/04/21 09/04/21 09/04/21 14:45 14:45 14:45 WBC RBC Hgb Hct MCV MCH MCHC RDW Plt Count MPV Immature Gran % Neutrophils % Lymphocytes % Monocytes % Eosinophils % Basophils % Nucleated RBC % Absolute Neutrophils Absolute Lymphocytes Absolute Monocytes Absolute Eosinophils Absolute Basophils PT INR Sodium 143 Potassium 4.2 Chloride 105 Carbon Dioxide 33.1 H Anion Gap 4.9 BUN 9 Creatinine 1.2 Estimated GFR/1.73 m2 >= 60.00 Glucose 120 H Calcium 9.1 Magnesium 2.7 H Total Bilirubin 0.5 AST 20 ALT 24 Alkaline Phosphatase 128 H Ammonia 15 Creatine Kinase Troponin I < 0.05 Total Protein 7.0 Albumin 4.1 TSH 1.25 Urine Color Urine Clarity Urine pH Ur Specific [place] Urine Protein Urine Ketones Urine Blood Urine Nitrite Urine Bilirubin Urine Urobilinogen Ur Leukocyte Esterase Urine RBC Urine WBC Ur Epithelial Cells Urine Crystals Urine Bacteria Urine Casts Urine Mucus Ur Culture Indicated? Urine Glucose Salicylates Urine Opiates Screen Urine Methadone Screen Acetaminophen Ur Barbiturates Screen Ur Tricyclics Screen Ur Amphetamines Screen U Benzodiazepines Scrn Urine Cocaine Screen Ur THC Screen Ethyl Alcohol < 3.0 COVID-19 Source SARS-CoV-2 (PCR) 09/04/21 09/04/21 09/04/21 14:45 14:45 15:30 WBC RBC Hgb Hct MCV MCH MCHC RDW Plt Count MPV Immature Gran % Neutrophils % Lymphocytes % Monocytes % Eosinophils % Basophils % Nucleated RBC % Absolute Neutrophils Absolute Lymphocytes Absolute Monocytes Absolute Eosinophils Absolute Basophils PT 10.1 INR 1.0 Sodium Potassium Chloride Carbon Dioxide Anion Gap BUN Creatinine Estimated GFR/1.73 m2 Glucose Calcium Magnesium Total Bilirubin AST ALT Alkaline Phosphatase [place]ia Creatine Kinase 232 Troponin I Total Protein Albumin TSH Urine Color Urine Clarity Urine pH Ur Specific [place] Urine Protein Urine Ketones Urine Blood Urine Nitrite Urine Bilirubin Urine Urobilinogen Ur Leukocyte Esterase Urine RBC Urine WBC Ur Epithelial Cells Urine Crystals Urine Bacteria Urine Casts Urine Mucus Ur Culture Indicated? Urine Glucose Salicylates Urine Opiates Screen Urine Methadone Screen Acetaminophen Ur Barbiturates Screen Ur Tricyclics Screen Ur Amphetamines Screen U Benzodiazepines Scrn Urine Cocaine Screen Ur THC Screen Ethyl Alcohol COVID-19 Source NASOPHARYX SARS-CoV-2 (PCR) Negative 09/04/21 09/04/21 09/04/21 15:33 15:49 15:49 WBC RBC Hgb Hct MCV MCH MCHC RDW Plt Count MPV Immature Gran % Neutrophils % Lymphocytes % Monocytes % Eosinophils % Basophils % Nucleated RBC % Absolute Neutrophils Absolute Lymphocytes Absolute Monocytes Absolute Eosinophils Absolute Basophils PT INR Sodium Potassium Chloride Carbon Dioxide Anion Gap BUN Creatinine Estimated GFR/1.73 m2 Glucose Calcium Magnesium Total Bilirubin AST ALT Alkaline Phosphatase [place]monia Creatine Kinase Troponin I Total Protein Albumin TSH Urine Color Yellow Urine Clarity Clear Urine pH 7.0 Ur Specific [place] 1.025 Urine Protein Negative Urine Ketones Negative Urine Blood Trace-intact H Urine Nitrite Negative Urine Bilirubin Negative Urine Urobilinogen 0.2 Ur Leukocyte Esterase Negative Urine RBC 3-5 H Urine WBC 0-2 Ur Epithelial Cells Few Urine Crystals Negative Urine Bacteria Negative Urine Casts Negative Urine Mucus Negative Ur Culture Indicated? No Urine Glucose Negative Salicylates Urine Opiates Screen Negative Urine Methadone Screen Negative Acetaminophen Ur Barbiturates Screen Negative Ur Tricyclics Screen Negative Ur Amphetamines Screen Negative U Benzodiazepines Scrn Negative Urine Cocaine Screen Negative Ur THC Screen Positive A Ethyl Alcohol COVID-19 Source Cancelled SARS-CoV-2 (PCR) Cancelled 09/04/21 09/04/21 09/04/21 17:36 18:45 23:27 WBC RBC Hgb Hct MCV MCH MCHC RDW Plt Count MPV Immature Gran % Neutrophils % Lymphocytes % Monocytes % Eosinophils % Basophils % Nucleated RBC % Absolute Neutrophils Absolute Lymphocytes Absolute Monocytes Absolute Eosinophils Absolute Basophils PT INR Sodium Potassium Chloride Carbon Dioxide Anion Gap BUN Creatinine Estimated GFR/1.73 m2 Glucose Calcium Magnesium Total Bilirubin AST ALT Alkaline Phosphatase Ammonia Creatine Kinase Troponin I < 0.05 Total Protein Albumin TSH Urine Color Urine Clarity Urine pH Ur Specific [place] Urine Protein Urine Ketones Urine Blood Urine Nitrite Urine Bilirubin Urine Urobilinogen Ur Leukocyte Esterase Urine RBC Urine WBC Ur Epithelial Cells Urine Crystals Urine Bacteria Urine Casts Urine Mucus Ur Culture Indicated? Urine Glucose Salicylates < 2.8 Urine Opiates Screen Urine Methadone Screen Acetaminophen < 2 < 2 Ur Barbiturates Screen Ur Tricyclics Screen Ur Amphetamines Screen U Benzodiazepines Scrn Urine Cocaine Screen Ur THC Screen Ethyl Alcohol COVID-19 Source SARS-CoV-2 (PCR) 09/05/21 09/05/21 06:00 06:00 WBC 6.02 D RBC 3.86 L Hgb 11.2 L D Hct 35.7 L D MCV 92.5 MCH 29.0 MCHC 31.4 L RDW 14.6 H Plt Count 118 L MPV 10.4 Immature Gran % 0.3 Neutrophils % 60.3 Lymphocytes % 23.4 Monocytes % 11.6 Eosinophils % 3.7 Basophils % 0.7 Nucleated RBC % 0 Absolute Neutrophils 3.63 Absolute Lymphocytes 1.41 Absolute Monocytes 0.70 Absolute Eosinophils 0.22 Absolute Basophils 0.04 PT INR Sodium 144 Potassium 4.2 Chloride 109 H Carbon Dioxide 29.2 Anion Gap 5.8 BUN 9 Creatinine 1.1 Estimated GFR/1.73 m2 >= 60.00 Glucose 94 Calcium 8.0 L Magnesium Total Bilirubin AST ALT Alkaline Phosphatase [place] Creatine Kinase Troponin I Total Protein Albumin TSH Urine Color Urine Clarity Urine pH Ur Specific [place] Urine Protein Urine Ketones Urine Blood Urine Nitrite Urine Bilirubin Urine Urobilinogen Ur Leukocyte Esterase Urine RBC Urine WBC Ur Epithelial Cells Urine Crystals Urine Bacteria Urine Casts Urine Mucus Ur Culture Indicated? Urine Glucose Salicylates Urine Opiates Screen Urine Methadone Screen Acetaminophen Ur Barbiturates Screen Ur Tricyclics Screen Ur Amphetamines Screen U Benzodiazepines Scrn Urine Cocaine Screen Ur THC Screen Ethyl Alcohol COVID-19 Source SARS-CoV-2 (PCR)
--- NOTE | 2021-09-05 15:21 | W.PM.OP ---
Date of service: 09/05/21 Time of Service: 14:30 Operative Note Operative Note DATE OF PROCEDURE: 09/05/21 PRE-OP DIAGNOSIS: Right trimalleolar displaced ankle fracture POST-OP DIAGNOSIS: same PROCEDURE: Right ankle trimalleolar fracture closed treatment with manipulation under anesthesia and short leg splinting, CPT #76506 SURGEON: Rahat Muniz BEHAVIORAL SCIENCE CHAIR: Maximus Dupree ANESTHESIA TYPE: General:No Airway Refer to Anesthesia Record ESTIMATED BLOOD LOSS: 0 COMPLICATIONS: None Patient was transported to: PACU Patient's condition: stable Indications: Please see complete medical record for details. Procedure Description: In the operating room, general anesthesia was induced. The patient was positioned supine on the operating room table. All bony prominences were well-padded. Preoperative antibiotics were omitted. The correct patient, procedure, and side of the procedure were all verified prior to beginning. The emergency department splint was removed. The ankle skin was inspected and intact however there were early fracture blisters medially. There was no skin wrinkling. The edema was fairly moderate about the medial anterior and lateral ankle. There is no significant edema in the foot or above the ankle in the leg. All leg compartments were completely soft. The right ankle was positioned with Kasie's maneuver and internal rotation and varus. C-arm fluoroscopy was used to confirm appropriate reduction of the ankle mortise, tibiotalar joint, and acceptable alignment of the lateral, medial, and posterior malleoli. The instructional support assistant maintained position of reduction. A well-padded reinforced plaster short leg splint was then applied to the extremity. An appropriate three-point mold was then maintained until plaster was hardened. Final C arm fluoroscopy confirmed maintained fracture reduction. The patient awoke from anesthesia without complication and was transferred to the recovery room in a stable condition.
--- NOTE | 2021-09-05 15:30 | W.ANESPOSTOP ---
Postoperative Evaluation Date, Time and Location Date Performed: 09/05/21 Time Performed: 15:30 Patient Location: PACU Vital Signs Most Recent Imported Vital Signs: Most Recent Vital Signs Temp Pulse Resp BP Pulse Ox 37 C 68 13 106/54 L 96 09/05/21 15:05 09/05/21 15:05 09/05/21 15:05 09/05/21 15:05 09/05/21 15:05 Pain Score Most Recent Pain Score: Most Recent Pain Score Pain Level 8 09/05/21 14:50 Assessment Mental Status: Awake (Alert & Oriented to Patient Baseline) Airway and Respiratory Function: Patent airway with normal (patient baseline) respiratory exam Cardiovascular Function: Hemodynamically Stable Hydration Status: Adequately Hydrated Nausea & Vomiting: No Nausea or Vomiting Pain: Pt. Denies Any Pain Peripheral Nerve Block: Patient did not receive a nerve block
--- NOTE | 2021-09-05 16:37 | W.PM.PROGNOT ---
Date of Service Date of service: 09/05/21 Time of Service: 16:37 Assessment and Plan Assessment and plan (1) Intentional opiate overdose: Status: Acute Assessment and plan: patient now reports that it was his Tramadol that he took and it was a full bottle. He is now alert and fully awake and able to give more details as to his intentions. He is medically stable and cleared for mental health to evaluate. Qualifiers: Encounter type: initial encounter Qualified Code(s): T40.602A - Poisoning by unspecified narcotics, intentional self-harm, initial encounter (2) Suicidal ideation: Status: Acute Assessment and plan: Medically clear for mental health to evaluate the patient for possible inpatient psychiatric treatment of his depression. (3) Trimalleolar fracture of ankle, closed: Status: Acute Assessment and plan: s/p closed reduction w/ bandage and splint. Patient to remain non-weight bearing at this time. follow up w/ Dr. Muniz next week. Patient uses a WC to get around. He will need assistance in tranfers from bed to chair, but otherwise is clear for discharge as long as he has appropriate support. I feel that he needs inpatient psychiatric care for his depression. Qualifiers: Encounter type: initial encounter Laterality: right Qualified Code(s): S82.851A - Displaced trimalleolar fracture of right lower leg, initial encounter for closed fracture Subjective Subjective Interval history since last seen: Patient admitted w/ suicidal ideation and took an overdose of his Tramadol. he states that he took a whole bottle full. His UDS tox screen was negative except for THC. Patient is now fully awake w/ stable vital signs. He underwent closed reduction and splinting of his right trimalleolar fracture sustained when he fell while getting out of his wheel chair. Dr. Muniz indicated that the patient can be discharged when cleared by mental health. At present there is no ongoing medical issues to keep him hospitalized other than he continues to express suicidal ideas but remains non-committal to any safety plan for when he is discharged. Exam Narrative Exam Narrative: Right foot is bandaged in [place] wrap and splint. Toes are warm and dry w/ good capillary refill Patient is talkative but will not say what his plans are for when he leaves the hospital. He freely admits that he has been depressed since his 's passing and that he would like to join her. Heart, lungs and abdominal exam are all benign Objective Last Vital Signs Temp 37 C 09/05/21 15:55 Pulse 72 09/05/21 15:55 Resp 12 09/05/21 15:55 BP 98/58 L 09/05/21 15:55 Pulse Ox 98 09/05/21 15:55 Laboratory Results - last 24 hr 09/04/21 09/04/21 09/04/21 14:45 17:36 18:45 WBC RBC Hgb Hct MCV MCH MCHC RDW Plt Count MPV Immature Gran % Neutrophils % Lymphocytes % Monocytes % Eosinophils % Basophils % Nucleated RBC % Absolute Neutrophils Absolute Lymphocytes Absolute Monocytes Absolute Eosinophils Absolute Basophils Sodium Potassium Chloride Carbon Dioxide Anion Gap BUN Creatinine Estimated GFR/1.73 m2 Glucose Calcium Troponin I < 0.05 Salicylates < 2.8 Acetaminophen < 2 SARS-CoV-2 (PCR) Negative 09/04/21 09/05/21 09/05/21 23:27 06:00 06:00 WBC 6.02 D RBC 3.86 L Hgb 11.2 L D Hct 35.7 L D MCV 92.5 MCH 29.0 MCHC 31.4 L RDW 14.6 H Plt Count 118 L MPV 10.4 Immature Gran % 0.3 Neutrophils % 60.3 Lymphocytes % 23.4 Monocytes % 11.6 Eosinophils % 3.7 Basophils % 0.7 Nucleated RBC % 0 Absolute Neutrophils 3.63 Absolute Lymphocytes 1.41 Absolute Monocytes 0.70 Absolute Eosinophils 0.22 Absolute Basophils 0.04 Sodium 144 Potassium 4.2 Chloride 109 H Carbon Dioxide 29.2 Anion Gap 5.8 BUN 9 Creatinine 1.1 Estimated GFR/1.73 m2 >= 60.00 Glucose 94 Calcium 8.0 L Troponin I Salicylates Acetaminophen < 2 SARS-CoV-2 (PCR)
--- NOTE | 2021-09-05 17:16 | CMSP_ITS ---
- If Service Date Differs Date of service: 09/05/21 Time of Service: 17:16 Care Management Safety Plan Status: Voluntary - Reason for Wait Reason for Wait: Inpatient Admission VOLUNTARY FOR INPATIENT PSYCHIATRIC STABILIZATION. Patient is appropriate in all interactions since arriving at [facility]; Pt has demonstrated appropriate coping and communication skills, has articulated his or her needs and concerns and is fully engaged during staff interactions. Safety plan has been established with patient, and care team, to adhere to patient goals, identify restrictions based on behavioral status, address nutr ition, and determine allowed personal belongings, tools for hygiene and personal care. Determine level of activity including ambulation, level of supervision, visitors, and determine privileges based on behaviors and level of engagement by pt. SAFETY PLAN: 1. Will remain on suicide precautions. In Paper Clothes 2. Will remain in room under direct supervision of one-on-one staff at all times provided by [employer]; FARRUKH, FAMILY LIFE COUNSELOR director of conservation. 3. May have paper cups, plates, finger foods as well as a cardboard spoon with which to eat meals. 4. Follow [facility] Management of the Admitted Behavioral Health Patient policy. 5. Comfort bath system or shower permitted, at discretion of RN. 6. May have own glasses, and other personal belongings at RN discretion. 7. Visitors-No visitors at this time 8. Activities: soft cart items, TV with remote, music tablet, at RN discretion. 9. Bathroom privileges without limitation. 10. Phone: May use [facility] phone for incoming/outgoing calls, at RN discretion. 11. Due to VOLUNTARY status, if patient wishes to leave [facility], staff will contact [facility] Crisis Screener ([phone]) and On-Call School Cafeteria Head Cook ([phone]) as soon as possible. In the event of elopement, notify [facility] Police ([phone]). Patient is currently voluntarily at [facility] and seeking inpatient admission when a bed becomes available. [facility] Frontline Physician Obstetrician will continue seeking placement. Please contact the Contact Center Representative School Cafeteria Head Cook ([phone]) and [facility] Physician Obstetrician ([phone]) for any needed changes in the Safety Plan. Safety plan has been provided to interdepartmental care team.
--- NOTE | 2021-09-05 17:16 | PDOC.CMSAFE ---
- If Service Date Differs Date of service: 09/05/21 Time of Service: 17:16 Care Management Safety Plan Status: Voluntary - Reason for Wait Reason for Wait: Inpatient Admission VOLUNTARY FOR INPATIENT PSYCHIATRIC STABILIZATION. Patient is appropriate in all interactions since arriving at [facility]; Pt has demonstrated appropriate coping and communication skills, has articulated his or her needs and concerns and is fully engaged during staff interactions. Safety plan has been established with patient, and care team, to adhere to patient goals, identify restrictions based on behavioral status, address nutrition, and determine allowed personal belongings, tools for hygiene and personal care. Determine level of activity including ambulation, level of supervision, visitors, and determine privileges based on behaviors and level of engagement by pt. SAFETY PLAN: 1. Will remain on suicide precautions. In Paper Clothes 2. Will remain in room under direct supervision of one-on-one staff at all times provided by [employer]; FARRUKH, FLARE STITCHER wedding florist. 3. May have paper cups, plates, finger foods as well as a cardboard spoon with which to eat meals. 4. Follow [facility] Management of the Admitted Behavioral Health Patient policy. 5. Comfort bath system or shower permitted, at discretion of RN. 6. May have own glasses, and other personal belongings at RN discretion. 7. Visitors-No visitors at this time 8. Activities: soft cart items, TV with remote, music tablet, at RN discretion. 9. Bathroom privileges without limitation. 10. Phone: May use [facility] phone for incoming/outgoing calls, at RN discretion. 11. Due to VOLUNTARY status, if patient wishes to leave [facility], staff will contact [facility] Crisis Screener ([phone]) and On-Call Manager Assurance ([phone]) as soon as possible. In the event of elopement, notify [facility] Police ([phone]). Patient is currently voluntarily at [facility] and seeking inpatient admission when a bed becomes available. [facility] Frontline Video Recorder Mechanic will continue seeking placement. Please contact the Geochemical Laboratory Technician Manager Assurance ([phone]) and [facility] Video Recorder Mechanic ([phone]) for any needed changes in the Safety Plan. Safety plan has been provided to interdepartmental care team.
[2021-09-05] MEDS: Pantoprazole 40 MG TABCR PO (17:23)
[2021-09-05] MEDS: Ibuprofen 600 MG TAB PO (17:23)
--- NOTE | 2021-09-05 19:25 | NUR.NOTE ---
Contacted by Dean QUIÑONES she states he is cleared by mental health and will place her note in the chart. Nursing supervisor tunnel heading notified [employer] also notified Nursing Note:
--- NOTE | 2021-09-05 19:33 | PDOC.MHCN_ITS ---
Date of service: 09/05/21 Time of Service: 19:33 Mental Health Crisis Note Presenting Issue How did you arrive at the ED and why did you come: Client presented to the ED via EMS due to intentional opiate overdose. Client disclosed he took a bunch of his prescibed tramadol with intent to end his life. Precipitating Factors Client denied SI/HI at this time. Disposition BEHAVIOR: Client was engaging, cooperative and presented as remorseful. Client also expressed feeling pain due to surgery from his broken foot and was observed showing facial signs of pain. EYE CONTACT: Client maintained appropriate eye contact during this assessment. MOOD: Client presented with depressed mood AFFECT: Client presented with blunted affect. APPETITE: Client reported a decrease in appetite SLEEP(trouble falling/staying asleep: Client reported disordered sleep pattern and stated he chooses not to sleep but refused to elaborate his reasons. Client also mentioned he is a . It is unclear to this clinician if his sleep disturbance is due to his experience as a . Plan Client would be discharged to go home and his girlfriend (Tami Law) has agreed to ensure his safety. She reported that besides Tramadol, the rest of client's medication are in bubble pack form. She would be coming to pick him up in the morning and transport him home as well as enable him to get settled. She was encouraged to reach out to [facility] if she is unable to ensure client's safety. Client also reported he has an appointment with his therapist through [facility] on 09.08.21 at 11am and his girlfriend has been made aware of this as well. Client is encouraged to follow up with his PCP (Aissatou Briggs) as well as his treatment team at [facility]. Client is encouraged to call [facility] crisis line ([phone]) if an when in crisis.
[2021-09-05] MEDS: Mometasone 220 MCG 14 DOSE INHALER 2 PUFF IH (20:29)
[2021-09-05] MEDS: Pregabalin 50 MG CAP 150 MG PO (20:30)
[2021-09-05] MEDS: lamoTRIgine 100 MG TAB PO (20:30)
[2021-09-06 03:27] VITALS: BP 120/71; PULSE 60; RESP 16; TEMP 37; O2SAT 98
[2021-09-06 07:30] VITALS: BP 126/77; PULSE 72; RESP 14; TEMP 36.8; O2SAT 96
[2021-09-06 07:36] LABS: Abs Immature Grans 0.02 10^3/uL (0.0-0.06); Absolute Basophil Count 0.04 10^3/uL (0.0-0.2); Absolute Eosinophil Count 0.25 10^3/uL (0.0-0.7); Absolute Lymphocyte Count 0.96 10^3/uL (1.2-3.4); Absolute Monocyte Count 0.84 10^3/uL (0.1-0.8); Absolute Neutrophil Count 3.92 10^3/uL (1.2-6.7); Basophils % 0.7; Eosinophils % 4.1; HCT 36.5 % (40.0-50.0); HGB 11.8 g/dL (13.5-17.5); Immature Grans % 0.3; Lymphocytes % 15.9; MCH 29.1 pg (27.0-33.0); MCHC 32.3 % (32.0-36.0); MCV 90.1 fL (80-95); MPV 10.7 fL (8.0-11.0); Monocytes % 13.9; Neutrophils % 65.1; Nucleated RBC 0 %; Platelet Count 108 10^3/uL (130-400); RBC 4.05 10^6/uL (4.36-5.78); RDW 14.1 % (11.8-14.1); RDW-SD 46.4 fL; WBC 6.03 10^3/uL (4.4-10.8)
[2021-09-06 08:19] LABS: Anion Gap 10.6 mmol/L (3-11); BUN 11 mg/dL (7-18); CO2 26.4 mmol/L (21.0-32.0); CREATININE 1.1 mg/dL (0.70-1.30); Calcium 8.9 mg/dL (8.5-10.1); Chloride 106 mmol/L (98-107); Ferritin 124 ng/mL (26-388); Folate 4.3 ng/mL (8.6-20.0); Glucose 93 mg/dL (74-106); Potassium 4.2 mmol/L (3.5-5.1); Sodium 143 mmol/L (136-145); Vitamin B12 1435 pg/mL (193-986)
--- NOTE | 2021-09-06 08:22 | CMSP_ITS ---
- If Service Date Differs Date of service: 09/06/21 Time of Service: 08:22 Care Management Safety Plan Status: Voluntary - Reason for Wait Reason for Wait: Inpatient Admission VOLUNTARY FOR INPATIENT PSYCHIATRIC STABILIZATION. Patient is appropriate in all interactions since arriving at [facility]; Pt has demonstrated appropriate coping and communication skills, has articulated his or her needs and concerns and is fully engaged during staff interactions. Safety plan has been established with patient, and care team, to adhere to patient goals, identify restrictions based on behavioral status, address nut rition, and determine allowed personal belongings, tools for hygiene and personal care. Determine level of activity including ambulation, level of supervision, visitors, and determine privileges based on behaviors and level of engagement by pt. SAFETY PLAN: 1. Will remain on suicide precautions. In Paper Clothes 2. Will remain in room under direct supervision of one-on-one staff at all times provided by [employer]; FARRUKH, RADIO RECORDER senior network engineer. 3. May have paper cups, plates, finger foods as well as a cardboard spoon with which to eat meals. 4. Follow [facility] Management of the Admitted Behavioral Health Patient policy. 5. Comfort bath system or shower permitted, at discretion of RN. 6. May have own glasses, and other personal belongings at RN discretion. 7. Visitors-No visitors at this time 8. Activities: soft cart items, TV with remote, music tablet, at RN discretion. 9. Bathroom privileges without limitation. 10. Phone: May use [facility] phone for incoming/outgoing calls, at RN discretion. 11. Due to VOLUNTARY status, if patient wishes to leave [facility], staff will contact [facility] Crisis Screener ([phone]) and On-Call Canvas Shop Laborer ([phone]) as soon as possible. In the event of elopement, notify [facility] Police ([phone]). Patient is currently voluntarily at [facility] and seeking inpatient admission when a bed becomes available. [facility] Frontline Insurance Representative will continue seeking placement. Please contact the Industrial Machine Assembler Canvas Shop Laborer ([phone]) and [facility] Insurance Representative ([phone]) for any needed changes in the Safety Plan. Safety plan has been provided to interdepartmental care team.
[2021-09-06] MEDS: Pantoprazole 40 MG TABCR PO (08:34)
[2021-09-06] MEDS: lamoTRIgine 100 MG TAB PO (08:34)
[2021-09-06] MEDS: Pregabalin 50 MG CAP 150 MG PO (08:34)
[2021-09-06 08:58] LABS: Iron 25 ug/dL (65-175); Total Iron Binding Capacity 227 ug/dL (250-450); Transferrin Sat 11 % (20-55)
[2021-09-06] MEDS: Ibuprofen 600 MG TAB PO (10:29)
[2021-09-06] MEDS: Folic Acid 1 MG TAB PO (10:29)
[2021-09-06] MEDS: Mometasone 220 MCG 14 DOSE INHALER 2 PUFF IH (10:30)
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
[2021-09-06 10:59] VITALS: BP 124/68; PULSE 69; RESP 18; TEMP 37.3; O2SAT 96
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
--- NOTE | 2021-09-06 13:11 | PDOC.HHF2F ---
Home Health Certification Home Health Certification: 1. Encounter Date and Reason I certify that Miguel Péerz was seen by Leonela Ashford on 09/06/21 and that I had a [id number] encounter with this patient that meets the physician face to face encounter requirements. 2. Clinical Findings Supporting Skilled Need and Homebound Status I certify that home health services are medically necessary, include either intermittent long-term and/or physical/speech therapy, and that this patient is homebound in that absences from the home require considerable and taxing effort and are infrequent or of short duration, or are attributable to the need to receive medical care. [X] (a) Attached documentation from encounter provides clinical findings supporting skilled need and homebound status (including what assistance patient requires to leave the home). The encounter with the patient was in whole, or in part, for the following medical condition, which is the primary reason for home health care: Overdose, Suicidal Ideation Physical Therapy: Patient would benefit from PT to help with mobility and strength, etc. Homebound: Unable to leave home without assistance 3. Certification and Authentication I certify that I composed the above information based on my clinical judgement relating to this patient's medical condition and, if applicable, clinical findings communicated to me by the NPP or inpatient physician who performed the Home Health Referral. All further orders will be obtained through __Chester Reyez____(Community Based Physician - PCP)
[2021-09-06 15:14] VITALS: BP 110/60; PULSE 65; RESP 17; TEMP 36.7; O2SAT 98
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
== END 2021-09-06 18:14 | disposition home health service (06) | DRG 918 ==
LOC: ER 09-05 12:56 → SUR 09-05 15:23 → MS 09-06 01:44 → ER 09-08 15:24 → MS 09-08 15:26
PROVIDERS: Internal Medicine; Physician Assistant; Student in an Organized Health Care Education/Training Program; Admitting Provider Family Medicine; Emergency Provider Registered Nurse Emergency; PCP Nurse Practitioner; Visit Provider Surgery
PROC: 0QSJXZZ Reposition Right Fibula, External Approach (ICD-10-PCS; CPT 27818; 2021-09-05 13:00)
DX: T40.602A Poisoning by unspecified narcotics, intentional self-harm, initial encounter; I69.354 Hemiplegia and hemiparesis following cerebral infarction affecting left non-dominant side; I50.22 Chronic systolic (congestive) heart failure; I48.92 Unspecified atrial flutter; F11.20 Opioid dependence, uncomplicated; I47.1 Supraventricular tachycardia; S82.851A Displaced trimalleolar fracture of right lower leg, initial encounter for closed fracture; R41.82 Altered mental status, unspecified; F32.A Depression, unspecified; W05.0XXA Fall from non-moving wheelchair, initial encounter; J44.9 Chronic obstructive pulmonary disease, unspecified; I25.10 Atherosclerotic heart disease of native coronary artery without angina pectoris; M54.50 Low back pain, unspecified; G40.909 Epilepsy, unspecified, not intractable, without status epilepticus; K21.9 Gastro-esophageal reflux disease without esophagitis; M10.9 Gout, unspecified; F10.11 Alcohol abuse, in remission; G89.0 Central pain syndrome; Z87.891 Personal history of nicotine dependence; I25.2 Old myocardial infarction; R13.12 Dysphagia, oropharyngeal phase; Z86.711 Personal history of pulmonary embolism; E53.8 Deficiency of other specified B group vitamins; Z20.822 Contact with and (suspected) exposure to COVID-19
CPT/HCPCS: 27818; 29125; 36415; 36416; 70496; 70498; 74177; 80048; 80053; 80307; 82550; 82962; 87635; 93005; 96361; 96365; 96375; 97162; 99222; 99291; 71260; 73600; 73610; 73620; 80320; 80329; 81003; 81015; 82140; 82607; 82728; 82746; 83540; 83550; 83605; 83735; 84443; 84484; 85025; 85610; 93010; 99231; 99239; J1953; J2001; J2310; J2405; J2704; J3010; J3490; J7620

== ENCOUNTER 2021-09-10 14:15 | Outpatient (CLI) | payer OTHER, MEDICAID, SELFPAY ==
--- NOTE | 2021-09-10 14:00 | DI.RAD_ITS ---
Exam(s) XR ANKLE RT COMPLETE EXAM: XR ANKLE RT COMPLETE CLINICAL HISTORY: R CLOSED TRIMALLEOLAR FRACTURE. TECHNIQUE: 2D digital imaging was performed. COMPARISON: CR,XR XR ANKLE RT COMPLETE from 09/04/2021 FINDINGS: Cast images post closed reduction of trimalleolar fracture reveal improved alignment at the fracture sites and no widening of the mortise. Talar dome appears unremarkable. IMPRESSION: DATA REPOSITORY: RADIATION DOSE DELIVERED:
== END 2021-09-10 14:16 | disposition home or self-care (01) ==
LOC: DIORS 14:15
PROVIDERS: PCP Nurse Practitioner; Referring Provider Nurse Practitioner; Visit Provider Physician Assistant
DX: S82.851D Displaced trimalleolar fracture of right lower leg, subsequent encounter for closed fracture with routine healing; X58.XXXD Exposure to other specified factors, subsequent encounter
CPT/HCPCS: 73610

== ENCOUNTER 2021-09-17 08:11 | Outpatient (CLI) | payer MEDICARE, SELFPAY ==
--- NOTE | 2021-09-17 07:45 | DI.RAD_ITS ---
Exam(s) XR ANKLE RT COMPLETE EXAM: XR ANKLE RT COMPLETE CLINICAL HISTORY: right ankle fx f/u TECHNIQUE: COMPARISON: CR XR ANKLE RT COMPLETE from 09/10/2021 FINDINGS: Three views were obtained. Previously described tibiofibular fractures again noted. No gross interv al change in alignment of the fracture fragments in comparison with examination of September 10. Note is made of widening of the ankle mortise medially, this finding is more prominent than as visual ized on prior examination. IMPRESSION: RADIATION DOSE DELIVERED: Total DLP
== END 2021-09-17 08:12 | disposition home or self-care (01) ==
LOC: DIORS 08:11
PROVIDERS: PCP Nurse Practitioner; Referring Provider Nurse Practitioner; Visit Provider Student in an Organized Health Care Education/Training Program
DX: S82.851D Displaced trimalleolar fracture of right lower leg, subsequent encounter for closed fracture with routine healing; X58.XXXD Exposure to other specified factors, subsequent encounter
CPT/HCPCS: 73610

== ENCOUNTER 2021-09-24 14:17 | Outpatient (CLI) | payer MEDICARE, SELFPAY ==
--- NOTE | 2021-09-24 14:06 | DI.RAD_ITS ---
Exam(s) XR ANKLE RT COMPLETE EXAM: XR ANKLE RT COMPLETE CLINICAL HISTORY: R ankle fx TECHNIQUE: COMPARISON: CR XR ANKLE RT COMPLETE from 09/17/2021 FINDINGS: Three views were obtained and show previously noted tibiofibular fracture with no gross interval smith ge in alignment of fracture fragments comparison with examination September 17. Ankle mortise appea rs widened medially. IMPRESSION: RADIATION DOSE DELIVERED: Total DLP
== END 2021-09-24 14:18 | disposition home or self-care (01) ==
LOC: DIORS 14:18
PROVIDERS: PCP Nurse Practitioner; Referring Provider Nurse Practitioner; Visit Provider Student in an Organized Health Care Education/Training Program
DX: S82.851D Displaced trimalleolar fracture of right lower leg, subsequent encounter for closed fracture with routine healing (principal); X58.XXXD Exposure to other specified factors, subsequent encounter
CPT/HCPCS: 73610

== ENCOUNTER 2021-10-15 13:15 | Outpatient (CLI) | payer MEDICARE, SELFPAY ==
--- NOTE | 2021-10-15 12:45 | DI.RAD_ITS ---
Exam(s) XR ANKLE RT COMPLETE EXAM: XR ANKLE RT COMPLETE CLINICAL HISTORY: right ankle fx f/u. TECHNIQUE: 2D digital imaging was performed. COMPARISON: Prior x-rays 09/17/2021. Also in cast views performed 09/24/2021 FINDINGS: Medial malleolus fracture again noted new noted. Oblique distal fibular fracture again noted. Fract ure line still evident. Posterior malleolus is intact. Talar dome intact but there is some widening of the mortise evident. Subtalar joint appears unremarkable. No osseous tarsal coalition. IMPRESSION: DATA REPOSITORY: RADIATION DOSE DELIVERED:
== END 2021-10-15 13:16 | disposition home or self-care (01) ==
LOC: DIORS 13:15
PROVIDERS: PCP Nurse Practitioner; Referring Provider Nurse Practitioner; Visit Provider Student in an Organized Health Care Education/Training Program
DX: S82.851D Displaced trimalleolar fracture of right lower leg, subsequent encounter for closed fracture with routine healing; X58.XXXD Exposure to other specified factors, subsequent encounter
CPT/HCPCS: 73610

== ENCOUNTER 2021-11-05 15:18 | Outpatient (REF) | payer MEDICARE, SELFPAY ==
[2021-11-06 13:20] LABS: COVID-19 RT-PCR UVMMC Result Negative (Negative)
== END 2021-11-05 15:19 | disposition home or self-care (01) ==
LOC: LBN 15:18
PROVIDERS: PCP Nurse Practitioner; Visit Provider Nurse Practitioner
DX: Z20.822 Contact with and (suspected) exposure to COVID-19 (principal)
CPT/HCPCS: U0003; U0005

== ENCOUNTER 2021-11-19 10:16 | Outpatient (CLI) | payer MEDICARE, SELFPAY ==
--- NOTE | 2021-11-19 10:00 | DI.RAD_ITS ---
Exam(s) XR ANKLE RT COMPLETE EXAM: XR ANKLE RT COMPLETE CLINICAL HISTORY: follow up TECHNIQUE: COMPARISON: CR XR ANKLE RT COMPLETE from 10/15/2021 FINDINGS: Three views were obtained and show previously described tibiofibular fracture, no gross interval smith ge in alignment of the fracture fragments in comparison with examination of October 15. Note is a gain made of widening of the ankle mortise consistent with ligamentous injury. IMPRESSION: RADIATION DOSE DELIVERED: Total DLP
== END 2021-11-19 10:17 | disposition home or self-care (01) ==
LOC: DIORS 10:16
PROVIDERS: PCP Nurse Practitioner; Referring Provider Nurse Practitioner; Visit Provider Student in an Organized Health Care Education/Training Program
DX: S82.851D Displaced trimalleolar fracture of right lower leg, subsequent encounter for closed fracture with routine healing (principal); X58.XXXD Exposure to other specified factors, subsequent encounter
CPT/HCPCS: 99213; 73610

== ENCOUNTER → 2022-01-14 09:30 | Outpatient (BNVA) | payer MEDICARE, SELFPAY | PROVIDERS: PCP Nurse Practitioner; Visit Provider Student in an Organized Health Care Education/Training Program | DX: S82.851A Displaced trimalleolar fracture of right lower leg, initial encounter for closed fracture (principal); X58.XXXA Exposure to other specified factors, initial encounter ==

== ENCOUNTER 2022-01-16 20:08 | Outpatient (REF) | payer MEDICARE, SELFPAY | END 2022-01-16 20:09 | disposition home or self-care (01) | LOC: LBN 20:08 | PROVIDERS: PCP Nurse Practitioner; Visit Provider Physician Assistant Medical | DX: L08.9 Local infection of the skin and subcutaneous tissue, unspecified (principal) | CPT/HCPCS: 87077; 87070; 87186; 87205 ==

== ENCOUNTER → 2022-03-02 10:04 | Outpatient (BNVA) | payer MEDICARE, SELFPAY | PROVIDERS: PCP Nurse Practitioner; Referring Provider Nurse Practitioner; Visit Provider Psychiatry & Neurology Neurology | DX: I69.354 Hemiplegia and hemiparesis following cerebral infarction affecting left non-dominant side (principal); I48.92 Unspecified atrial flutter; Z79.01 Long term (current) use of anticoagulants; G40.909 Epilepsy, unspecified, not intractable, without status epilepticus; Z87.820 Personal history of traumatic brain injury; S82.851A Displaced trimalleolar fracture of right lower leg, initial encounter for closed fracture; X58.XXXA Exposure to other specified factors, initial encounter | CPT/HCPCS: 99215 ==

== ENCOUNTER 2022-03-04 01:19 | Outpatient (CLI) | payer MEDICARE, SELFPAY ==
[2022-03-04 08:42] LABS: HCT 45.6 % (40.0-50.0); MCH 30.6 pg (27.0-33.0); MCHC 32.9 % (32.0-36.0); MCV 93 fL (80-95); MPV 10.2 fL (8.0-11.0); Platelet Count 170 10^3/uL (130-400); RDW 14.2 % (11.8-14.1); RDW-SD 48.8 fL; WBC 7.16 10^3/uL (4.4-10.8)
[2022-03-04 10:12] LABS: ALT 17 U/L (16-63); AST 18 U/L (15-37); Albumin 4.2 g/dL (3.4-5.0); Alkaline Phosphatase 123 U/L (46-116); Anion Gap 9.1 mmol/L (3-11); BUN 14 mg/dL (7-18); Bilirubin, Total 0.4 mg/dL (0.2-1.0); CO2 27.9 mmol/L (21.0-32.0); CREATININE 1.1 mg/dL (0.70-1.30); Calcium 8.5 mg/dL (8.5-10.1); Calculated LDL 93 mg/dL (<100); Chloride 107 mmol/L (98-107); Cholesterol 172 mg/dL (<200); Glucose 92 mg/dL (74-106); HDL Cholesterol 65 mg/dL (40-60); Sodium 144 mmol/L (136-145); Total Protein 6.8 g/dL (6.4-8.2); Triglyceride 72 mg/dL (<150); Vitamin B12 1038 pg/mL (193-986)
== END 2022-03-04 01:20 | disposition home or self-care (01) ==
LOC: LBO 01:19
PROVIDERS: PCP Nurse Practitioner; Visit Provider Nurse Practitioner
DX: E53.8 Deficiency of other specified B group vitamins (principal); I25.10 Atherosclerotic heart disease of native coronary artery without angina pectoris
CPT/HCPCS: 36415; 80053; 80061; 85027; 82607

== ENCOUNTER 2022-03-24 11:22 | Outpatient (CLI) | payer MEDICARE, SELFPAY ==
--- NOTE | 2022-03-24 11:15 | DI.RAD_ITS ---
Exam(s) XR ANKLE RT COMPLETE EXAM: XR ANKLE RT COMPLETE CLINICAL HISTORY: R ankle fx TECHNIQUE: COMPARISON: CR XR ANKLE RT COMPLETE from 11/19/2021 FINDINGS: Three views were obtained. Previously noted tibial fibular fractures again seen, no gross interval c hange in alignment of fracture fragments in comparison with prior examination of November 19. Note is again made of ankle mortise widening, grossly unchanged from prior examination. IMPRESSION: RADIATION DOSE DELIVERED: Total DLP
== END 2022-03-24 11:23 | disposition home or self-care (01) ==
LOC: DIORS 11:22
PROVIDERS: PCP Nurse Practitioner; Referring Provider Nurse Practitioner; Visit Provider Physician Assistant
DX: X58.XXXA Exposure to other specified factors, initial encounter; S82.851A Displaced trimalleolar fracture of right lower leg, initial encounter for closed fracture
CPT/HCPCS: 99214; 73610

== ENCOUNTER 2022-05-31 12:57 | Emergency (ER) | payer MEDICARE, SELFPAY ==
--- NOTE | 2022-05-31 12:30 | RT.EKG_ITS ---
APPROVED REPORT Exam: Resting ECG Reason for Exam: dizziness Patient Location: E HR:56 bpm ECG Measurements Heart Rate 56 AXIS AR 160 P 61 QRSd 89 QRS 53 QT 520 T 22 QTc 475 Conclusion Sinus bradycardia...rate< 60 Atrial premature complexes...SV complexes w/ short R-R intvls Probable left atrial enlargement...P >50mS, <-0.10mV V1 subtle st dep inf laterally Abnormal Electrocardiogram
[2022-05-31 12:37] VITALS: BP 155/72; PULSE 55; RESP 18; TEMP 35.4; O2SAT 100
[2022-05-31 12:43] VITALS: RESP 18
--- NOTE | 2022-05-31 13:00 | DI.CT_ITS ---
Exam(s) CT HEAD WO EXAM: CT HEAD WO CLINICAL HISTORY: fall, trauma 3 days ago, on eliquis. TECHNIQUE: Imaging Protocol: Axial computed tomography images with coronal and sagittal reformatted images were created and reviewed COMPARISON: CT CT BRAIN NECK CTA from 09/04/2021 FINDINGS: There is mild generalized cerebral atrophy. No evidence of acute intracranial hemorrhage, mass effect, or midline shift. The orbital structures are unremarkable. The temporal bone structures appear intact. Calvarium: Normal. Visualized Paranasal sinuses/Mastoids: Clear except for mild mucoperiosteal thickening ethmoid air ce lls bilaterally consistent with mild chronic sinusitis. IMPRESSION: No evidence of acute intracranial process. RADIATION DOSE DELIVERED: 756.96mGy.cm Total DLP 756.96mGy.cm Total DLP !Error CTDIvol DATA REPOSITORY: All CT scans at this facility are submitted to the National Radiology Data Registry (NRDR) Dose Index Registry (DIR) with the [employer] ([employer]). RADIATION OPTIMIZATION: All CT scans at this facility use at least one of these dose optimization te chniques: automated exposure control; mA and/or kV adjustment per patient size (includes targeted exa ms where dose is matched to clinical indication); or iterative reconstruction.
--- NOTE | 2022-05-31 13:00 | DI.CT_ITS ---
Exam(s) CT PELVIC WO EXAM: CT PELVIC WO CLINICAL HISTORY: include left femur, pain left pelvis and hip, fall TECHNIQUE: COMPARISON: CT CT CHEST/ABD/PEL W from 09/04/2021 FINDINGS: Noncontrast CT examination of the pelvis was performed. There is unremarkable appearance of visualiz ed portions of aortoiliac vessels by noncontrast criteria. Urinary bladder appears intact. No focal bowel pathology identified. There is no fracture identified involving the pelvis, hips, or visualized portions of the femurs. No significant soft tissue hematoma identified. No abdominal wall hernia seen. No lymphadenopathy. S I joints appear intact with slight degenerative changes. IMPRESSION: No evidence of acute hip/pelvic fracture. RADIATION DOSE DELIVERED: 391.29mGy.cm Total DLP !Error CTDIvol RADIATION OPTIMIZATION: All CT scans at this facility use at least one of these dose optimization te chniques: automated exposure control; mA and/or kV adjustment per patient size (includes targeted exa ms where dose is matched to clinical indication); or iterative reconstruction.
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
[2022-05-31 13:34] LABS: Abs Immature Grans 0.02 10^3/uL (0.0-0.06); Absolute Basophil Count 0.04 10^3/uL (0.0-0.2); Absolute Eosinophil Count 0.24 10^3/uL (0.0-0.7); Absolute Neutrophil Count 3.74 10^3/uL (1.2-6.7); Basophils % 0.7; Eosinophils % 3.9; HCT 48.8 % (40.0-50.0); HGB 16.4 g/dL (13.5-17.5); Immature Grans % 0.3; Lymphocytes % 24.4; MCH 30.8 pg (27.0-33.0); MCHC 33.6 % (32.0-36.0); MCV 92 fL (80-95); MPV 10.9 fL (8.0-11.0); Monocytes % 9.8; Neutrophils % 60.9; Platelet Count 142 10^3/uL (130-400); RBC 5.32 10^6/uL (4.36-5.78); RDW 12.7 % (11.8-14.1); RDW-SD 42.9 fL; WBC 6.14 10^3/uL (4.4-10.8)
[2022-05-31 13:52] LABS: ALT 17 U/L (16-63); AST 15 U/L (15-37); Albumin 4.1 g/dL (3.4-5.0); Alkaline Phosphatase 112 U/L (46-116); Anion Gap 6.7 mmol/L (3-11); BUN 20 mg/dL (7-18); Bilirubin, Total 0.6 mg/dL (0.2-1.0); CO2 26.3 mmol/L (21.0-32.0); Calcium 9.3 mg/dL (8.5-10.1); Chloride 106 mmol/L (98-107); Glucose 101 mg/dL (74-106); Potassium 4.4 mmol/L (3.5-5.1); Sodium 139 mmol/L (136-145); Total Protein 7.1 g/dL (6.4-8.2); Troponin I < 50 ng/L (<or=60)
[2022-05-31] MEDS: HYDROmorphone 2 MG/ML VIAL 1 MG IVP (13:58)
--- NOTE | 2022-05-31 15:17 | NUR.NOTE ---
Received report from offgoing RN. Patient is resting in bed. No distress. Denies pain. Water given.
[2022-05-31 15:38] VITALS: BP 104/52; PULSE 60; RESP 18; TEMP 36.6; O2SAT 98
[2022-05-31] MEDS: Acetaminophen 325 MG TAB (16:01)
[2022-05-31] MEDS: Ibuprofen 600 MG TAB (16:01)
== END 2022-05-31 16:44 | disposition home or self-care (01) ==
PROVIDERS: Emergency Provider Student in an Organized Health Care Education/Training Program; PCP Nurse Practitioner
DX: S70.02XA Contusion of left hip, initial encounter (principal); W18.39XA Other fall on same level, initial encounter; R42 Dizziness and giddiness; R00.1 Bradycardia, unspecified; S09.8XXA Other specified injuries of head, initial encounter; Z79.01 Long term (current) use of anticoagulants; Z86.73 Personal history of transient ischemic attack (TIA), and cerebral infarction without residual deficits
CPT/HCPCS: 80053; 93005; 96374; 99284; 70450; 72192; 83735; 84484; 85025; 93010

== ENCOUNTER 2022-06-22 04:15 | Outpatient (RCR) | payer MEDICARE, SELFPAY ==
--- NOTE | 2022-06-22 10:00 | HOLTER_ITS ---
APPROVED REPORT Conclusion This is a 48-hour Holter monitor, ordered for bradycardia Patient was in atrial flutter throughout the recording, average heart rate was 141 There were rare ventricular ectopic beats There were no pauses greater than 3 seconds There were no apparent patient symptoms
== END 2022-07-01 23:59 | disposition home or self-care (01) ==
LOC: RT 04:15
PROVIDERS: PCP Nurse Practitioner; Visit Provider Student in an Organized Health Care Education/Training Program
DX: R00.1 Bradycardia, unspecified (principal); I48.92 Unspecified atrial flutter; R42 Dizziness and giddiness
CPT/HCPCS: 93227; 93225; 93226

== ENCOUNTER 2022-07-10 13:34 | Inpatient (IN) | payer MEDICARE, SELFPAY ==
[2022-07-10] VITALS (100 sets, daily range): BP systolic 87–113; BP diastolic 63–88; PULSE 57–141; RESP 10–32; TEMP 36.8; O2SAT 87–100
--- NOTE | 2022-07-10 13:15 | RT.EKG_ITS ---
APPROVED REPORT Exam: Resting ECG Reason for Exam: CHEST PAIN Patient Location: E HR:139 bpm ECG Measurements Heart Rate 139 AXIS OR 151 P 264 QRSd 87 QRS 67 QT 282 T 243 QTc 429 Conclusion Sinus tachycardia Repol abnrm diffuse leads...ST-T neg, ant/lat/inf Borderline ST elevation, anterolateral leads...ST >0.06mV, I aVL V2-V6
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
[2022-07-10 13:56] LABS: Abs Immature Grans 0.01 10^3/uL (0.0-0.06); Absolute Basophil Count 0.04 10^3/uL (0.0-0.2); Absolute Eosinophil Count 0.32 10^3/uL (0.0-0.7); Absolute Lymphocyte Count 1.45 10^3/uL (1.2-3.4); Absolute Monocyte Count 0.48 10^3/uL (0.1-0.8); Absolute Neutrophil Count 4.76 10^3/uL (1.2-6.7); Basophils % 0.6; Eosinophils % 4.5; HCT 43.9 % (40.0-50.0); HGB 14.4 g/dL (13.5-17.5); Immature Grans % 0.1; Lymphocytes % 20.5; MCH 30.3 pg (27.0-33.0); MCHC 32.8 % (32.0-36.0); MCV 92 fL (80-95); MPV 9.6 fL (8.0-11.0); Monocytes % 6.8; Neutrophils % 67.5; Platelet Count 141 10^3/uL (130-400); RBC 4.76 10^6/uL (4.36-5.78); RDW 13.2 % (11.8-14.1); RDW-SD 44.5 fL; WBC 7.06 10^3/uL (4.4-10.8)
[2022-07-10] MEDS: Normal Saline 500 ML IV ×2 (14:04→16:09)
[2022-07-10 14:19] LABS: ALT 20 U/L (16-63); AST 15 U/L (15-37); Albumin 3.8 g/dL (3.4-5.0); Alkaline Phosphatase 145 U/L (46-116); Anion Gap 8.5 mmol/L (3-11); BUN 21 mg/dL (7-18); Bilirubin, Total 0.6 mg/dL (0.2-1.0); CO2 24.5 mmol/L (21.0-32.0); CREATININE 1.2 mg/dL (0.70-1.30); Chloride 106 mmol/L (98-107); Estimated GFR 66.28 (mL/min/1.73m2); Glucose 92 mg/dL (74-106); Magnesium 1.7 mg/dL (1.8-2.4); Potassium 3.9 mmol/L (3.5-5.1); Sodium 139 mmol/L (136-145); Total Protein 6.8 g/dL (6.4-8.2); Troponin I < 50 ng/L (<or=60)
[2022-07-10] MEDS: dilTIAZem 25 MG/5 ML VIAL IVP (14:37)
[2022-07-10 14:40] LABS: Acetaminophen < 2 ug/mL (10-30); Salicylate < 2.8 mg/dL (<2.8)
--- NOTE | 2022-07-10 15:00 | DI.RAD_ITS ---
Exam(s) XR PORTABLE CHEST AP EXAM: XR PORTABLE CHEST AP CLINICAL HISTORY: Chest pain TECHNIQUE: 2D digital imaging was performed of the chest. One image was obtained. An AP view was ob tained. COMPARISON: CR XR CHEST 2V PA LATERAL from 03/24/2021 CR,XR XR PORTABLE CHEST AP from 08/16/2021 FINDINGS: MEDIASTINUM: Normal. HEART: Normal. PULMONARY VASCULATURE: Normal. LUNGS: No focal consolidating infiltrates. Diffuse prominence of the interstitium. PLEURAL SPACE: No pleural effusion or pneumothorax. BONE:Within normal limits for the patient's age. OTHER FINDINGS:Normal. IMPRESSION: Diffuse prominence of the interstitium which may be chronic. The possibility of interstitial edema o r pneumonia cannot be excluded. Please correlate clinically. DATA REPOSITORY: RADIATION DOSE DELIVERED:
[2022-07-10] MEDS: dilTIAZem 25 MG/5 ML VIAL 5 MG IVP (15:02)
[2022-07-10 15:29] LABS: Bilirubin Negative (Negative); Blood Small (Negative); Clarity Clear (Clear); Glucose Negative (Negative); Ketones Negative (Negative); Leukocyte Esterase Negative (Negative); Nitrite Negative (Negative); Urobilinogen 0.2 EU/dL (Up TO 0.2); pH 5.5 (5-8)
[2022-07-10 15:40] LABS: *AMPHETAMINES SCREEN URINE Negative (Negative); *BARBITURATES SCREEN URINE Negative (Negative); *BENZODIAZEPINES SCREEN URINE Negative (Negative); Bacteria Negative HPF (Negative); C & S Indicated? No; Cannabinoids THC Negative (Negative); Casts Negative LPF (Negative); Cocaine Screen,Urine Positive (Negative); Crystals Negative HPF (Negative); Epithelial Cells Negative HPF (Negative); METHADONE URINE SCREEN Negative (Negative); Mucus Negative (Negative); OPIATES URINE SCREEN Negative (Negative); Other Cells Negative (Negative); RBC 0-2 HPF (0-2); WBC 0-2 HPF (0-5)
[2022-07-10 15:41] LABS: Tricyclic Antidepressants Negative (Negative)
--- NOTE | 2022-07-10 15:45 | DI.CT_ITS ---
Exam(s) CT HEAD WO EXAM: CT HEAD WO CLINICAL HISTORY: LISANDRO, on laura. TECHNIQUE: Imaging Protocol: Axial computed tomography images with coronal and sagittal reformatted images were created and reviewed COMPARISON: CT CT HEAD WO from 05/31/2022 FINDINGS: Ventricles and Extra axial spaces: Normal in size and morphology for the patient's age. Hemorrhage: None. Cerebral parenchyma: No acute territorial infarct. There is again seen an area of encephalomalacia i nvolving the left temporal lobe. Midline shift: None. Brainstem/Cerebellum: Normal. Calvarium: Normal. Visualized Paranasal sinuses/Mastoids: Opacification of several ethmoid air cells. The remaining vis ualized paranasal sinuses are clear. Soft Tissues: Unremarkable. IMPRESSION: 1. No acute intracranial process. 2. Mild ethmoid sinusitis. 3. Results of this exam have been verbally communicated with provider. RADIATION DOSE DELIVERED: 746.17mGy.cm Total DLP DATA REPOSITORY: All CT scans at this facility are submitted to the National Radiology Data Registry (NRDR) Dose Index Registry (DIR) with the [employer] ([employer]). RADIATION OPTIMIZATION: All CT scans at this facility use at least one of these dose optimization te chniques: automated exposure control; mA and/or kV adjustment per patient size (includes targeted exa ms where dose is matched to clinical indication); or iterative reconstruction.
--- NOTE | 2022-07-10 15:45 | DI.CT_ITS ---
Exam(s) CT CHEST PE CTA EXAM: CT CHEST PE CTA CLINICAL HISTORY: MCMAHON, on eliquis, afib. TECHNIQUE: Imaging Protocol: Axial CT angiography was performed with multi-slice acquisition and mu lti-planar and/or 3D reconstructions. CONTRAST MATERIAL: Intravenous: Omnipaque 350 contrast volume:100 mL COMPARISON: CT CT PELVIC WO from 05/31/2022 CR XR PORTABLE CHEST AP from 07/10/2022 FINDINGS: Tracheobronchial tree: Patent where visualized. Pulmonary parenchyma: No focal consolidating infiltrates are seen. There is diffuse thickening of the interstitium suspicious for interstitial edema. There are bilateral pleural effusions. Cardiomegaly is present. The findings are suspicious for congestive heart failure. No architectural distortion. Pulmonary Arteries: No evidence of filling defect to suggest pulmonary emboli. Mediastinum and Lisseth: No dominant adenopathy or fluid collection. The esophagus is unremarkable. Visualized thyroid gland: Unremarkable. Pleura: No pneumothorax. Heart: Cardiomegaly. Mild coronary artery calcification. No pericardial effusion. Aorta: Thoracic aorta non-dilated. The aorta is not adequately opacified for evaluation of dissection . Atherosclerosis is present. Upper abdomen: Unremarkable. Soft tissues: Unremarkable. Bones: Within normal limits for the patient's age. IMPRESSION: 1. No evidence of pulmonary embolism, thoracic aortic dissection or aneurysm. 2. Findings most suggestive of congestive heart failure. 3. Results of this exam have been verbally communicated with provider. RADIATION DOSE DELIVERED: 289.55mGy.cm Total DLP DATA REPOSITORY: All CT scans at this facility are submitted to the National Radiology Data Registry (NRDR) Dose Index Registry (DIR) with the [employer] (ACR). RADIATION OPTIMIZATION: All CT scans at this facility use at least one of these dose optimization te chniques: automated exposure control; mA and/or kV adjustment per patient size (includes targeted exa ms where dose is matched to clinical indication); or iterative reconstruction.
[2022-07-10 15:51] LABS: D-Dimer 486 ng/mlFEU (<500)
--- NOTE | 2022-07-10 16:30 | RT.EKG_ITS ---
APPROVED REPORT Exam: Resting ECG Reason for Exam: chest pain Patient Location: E HR:135 bpm ECG Measurements Heart Rate 135 AXIS KS 106 P 57 QRSd 143 QRS 58 QT 367 T 267 QTc 551 Conclusion Sinus tachycardia...rate> 99 LVH with secondary repolarization abnormality...multi-LVH criteria, abnrm ST-T
[2022-07-10] MEDS: Omnipaque 350 MG/ML 100 ML BTL IJ (16:35)
[2022-07-10] MEDS: Normal Saline Flush 10 ML SYR IVP (16:35)
[2022-07-10] MEDS: Metoprolol 5 MG/5 ML VIAL IVP (16:37)
[2022-07-10] MEDS: Furosemide 40 MG/4 ML VIAL IVP ×2 (17:04→23:33)
[2022-07-10 17:13] LABS: Troponin I < 50 ng/L (<or=60)
--- NOTE | 2022-07-10 17:15 | RT.EKG_ITS ---
APPROVED REPORT Exam: Resting ECG Reason for Exam: RT conversion Patient Location: E HR:67 bpm ECG Measurements Heart Rate 67 AXIS MT [id number] P [id number] QRSd 133 QRS 79 QT 517 T 223 QTc 548 Conclusion Atrial flutter with predominant 4:1 AV block...A-rate 272, multiple Ps IVCD, consider RBBB...QRSd>120mS, terminal axis(90,270) LVH with secondary repolarization abnormality...multi-LVH criteria, abnrm ST-T Prolonged QT interval...QTc >500mS
[2022-07-10] MEDS: dilTIAZem 25 MG/5 ML VIAL 15 MG IVP (17:23)
[2022-07-10] MEDS: Metoclopramide 10 MG/2 ML VIAL IVP (17:49)
[2022-07-10] MEDS: dilTIAZem 125 MG in Normal Saline 100 ML IV (20:52)
[2022-07-10] MEDS: Metoprolol 12.5 MG TAB PO (22:05)
[2022-07-10 22:10] LABS: Source Nasal/Nares
[2022-07-10 22:47] LABS: COVID-19 PCR Negative (Negative)
[2022-07-11] VITALS (71 sets, daily range): BP systolic 81–115; BP diastolic 47–78; PULSE 45–138; RESP 0–30; TEMP 36.3–37.1; O2SAT 86–98
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
[2022-07-11 05:52] LABS: Abs Immature Grans 0.03 10^3/uL (0.0-0.06); Absolute Basophil Count 0.08 10^3/uL (0.0-0.2); Absolute Eosinophil Count 0.37 10^3/uL (0.0-0.7); Absolute Lymphocyte Count 2.26 10^3/uL (1.2-3.4); Absolute Neutrophil Count 4.73 10^3/uL (1.2-6.7); Eosinophils % 4.5; HCT 45.1 % (40.0-50.0); Immature Grans % 0.4; Lymphocytes % 27.7; MCH 30.2 pg (27.0-33.0); MCHC 33.3 % (32.0-36.0); MCV 91 fL (80-95); MPV 10.3 fL (8.0-11.0); Monocytes % 8.6; Neutrophils % 57.8; Platelet Count 159 10^3/uL (130-400); RBC 4.96 10^6/uL (4.36-5.78); RDW 13.3 % (11.8-14.1); RDW-SD 44.4 fL; WBC 8.17 10^3/uL (4.4-10.8)
[2022-07-11 06:19] LABS: TSH 1.65 uIU/mL (0.36-3.74)
[2022-07-11 06:23] LABS: ALT 50 U/L (16-63); AST 36 U/L (15-37); Alkaline Phosphatase 215 U/L (46-116); Anion Gap 10.3 mmol/L (3-11); BUN 27 mg/dL (7-18); Bilirubin, Total 0.5 mg/dL (0.2-1.0); CO2 26.7 mmol/L (21.0-32.0); CREATININE 1.4 mg/dL (0.70-1.30); Calcium 9.1 mg/dL (8.5-10.1); Chloride 103 mmol/L (98-107); Estimated GFR 55.09 (mL/min/1.73m2); Glucose 111 mg/dL (74-106); NT-proBNP 2202 pg/mL (<300); Potassium 3.4 mmol/L (3.5-5.1); Sodium 140 mmol/L (136-145); Total Protein 7.2 g/dL (6.4-8.2); Troponin I < 50 ng/L (<or=60)
[2022-07-11] MEDS: Albuterol HFA 8 GM 60 PUFF INH IH ×4 (08:08→19:56)
[2022-07-11] MEDS: Mometasone 220 MCG 14 DOSE INHALER 2 PUFF IH ×2 (08:10→19:56)
[2022-07-11] MEDS: Pregabalin 50 MG CAP 150 MG PO ×2 (09:00→19:54)
[2022-07-11] MEDS: Ascorbic Acid 500 MG TAB PO ×2 (09:00→19:55)
[2022-07-11] MEDS: Furosemide 40 MG/4 ML VIAL IVP (09:00)
[2022-07-11] MEDS: Magnesium Oxide 400 MG TAB PO ×2 (09:00→19:55)
[2022-07-11] MEDS: Apixaban 5 MG TAB PO ×2 (09:00→19:55)
[2022-07-11] MEDS: Clopidogrel 75 MG TAB PO (09:01)
[2022-07-11] MEDS: Cyanocobalamin 500 MCG TAB 1000 MCG PO (09:01)
[2022-07-11] MEDS: lamoTRIgine 100 MG TAB PO ×2 (09:01→19:55)
[2022-07-11] MEDS: Spironolactone 25 MG TAB PO (09:01)
[2022-07-11] MEDS: Finasteride 5 MG TAB PO (09:01)
[2022-07-11] MEDS: Baclofen 10 MG TAB PO ×3 (09:01→19:55)
[2022-07-11] MEDS: Citalopram 20 MG TAB 40 MG PO (09:01)
[2022-07-11] MEDS: Ferrous Sulfate 325 MG TAB PO ×2 (09:01→19:55)
[2022-07-11] MEDS: Folic Acid 1 MG TAB PO (09:01)
[2022-07-11] MEDS: Pantoprazole 40 MG TABCR PO (09:01)
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
[2022-07-11] MEDS: dilTIAZem 60 MG TAB PO ×2 (12:01→17:13)
[2022-07-11] MEDS: Metoprolol 12.5 MG TAB PO (14:44)
[2022-07-11] MEDS: Potassium Chloride 20 MEQ TABCR PO ×2 (17:13→19:54)
[2022-07-11] MEDS: Normal Saline Flush 10 ML SYR IVP (19:54)
[2022-07-11] MEDS: Atorvastatin 40 MG TAB PO (19:54)
[2022-07-11] MEDS: Mylanta Suspension 30 ML CUP PO (21:18)
[2022-07-11] MEDS: Tamsulosin 0.4 MG CAPCR PO (21:18)
[2022-07-12] VITALS (54 sets, daily range): BP systolic 76–120; BP diastolic 50–80; PULSE 57–136; RESP 8–27; TEMP 36.8–37; O2SAT 85–98
[2022-07-12] MEDS: dilTIAZem 60 MG TAB PO ×2 (02:07→08:43)
[2022-07-12 07:03] LABS: Anion Gap 10.6 mmol/L (3-11); BUN 32 mg/dL (7-18); CO2 27.4 mmol/L (21.0-32.0); CREATININE 1.5 mg/dL (0.70-1.30); Calcium 9.2 mg/dL (8.5-10.1); Chloride 102 mmol/L (98-107); Estimated GFR 50.71 (mL/min/1.73m2); Glucose 120 mg/dL (74-106); Potassium 4.1 mmol/L (3.5-5.1); Sodium 140 mmol/L (136-145)
[2022-07-12] MEDS: Albuterol HFA 8 GM 60 PUFF INH IH ×4 (07:37→20:56)
[2022-07-12] MEDS: Mometasone 220 MCG 14 DOSE INHALER 2 PUFF IH ×2 (07:37→20:56)
[2022-07-12] MEDS: Pantoprazole 40 MG TABCR PO (08:43)
[2022-07-12] MEDS: Citalopram 20 MG TAB 40 MG PO (08:43)
[2022-07-12] MEDS: Apixaban 5 MG TAB PO ×2 (08:43→20:55)
[2022-07-12] MEDS: Ascorbic Acid 500 MG TAB PO ×2 (08:43→20:55)
[2022-07-12] MEDS: Baclofen 10 MG TAB PO ×3 (08:43→20:55)
[2022-07-12] MEDS: lamoTRIgine 100 MG TAB PO ×2 (08:44→20:55)
[2022-07-12] MEDS: Folic Acid 1 MG TAB PO (08:44)
[2022-07-12] MEDS: Pregabalin 50 MG CAP 150 MG PO ×2 (08:44→20:55)
[2022-07-12] MEDS: Clopidogrel 75 MG TAB PO (08:44)
[2022-07-12] MEDS: Ferrous Sulfate 325 MG TAB PO ×2 (08:44→20:55)
[2022-07-12] MEDS: Cyanocobalamin 500 MCG TAB 1000 MCG PO (08:44)
[2022-07-12] MEDS: Potassium Chloride 20 MEQ TABCR PO (08:44)
[2022-07-12] MEDS: Magnesium Oxide 400 MG TAB PO ×2 (08:44→20:55)
[2022-07-12] MEDS: Finasteride 5 MG TAB PO (08:44)
[2022-07-12] MEDS: Spironolactone 25 MG TAB PO (08:44)
[2022-07-12] MEDS: Digoxin 0.5 MG/2 ML AMP IVP (08:55)
[2022-07-12] MEDS: MAGNESIUM SULFATE 2 GM/50 ML BAG IVPB (09:42)
--- NOTE | 2022-07-12 12:49 | PHA.REVIEW ---
Pharmacy Admission Review - Admission Clinical Review (Last Reviewed 07/11/22 @ 03:01 by Miguel Stephen) CHF exacerbation (Acute) Atrial flutter (Acute) aripiprazole Allergy (Mild, Verified 06/01/22 15:19) SKIN RASH, tremors codeine Allergy (Unknown, Verified 06/01/22 15:19) Nausea, vomiting, rash aspirin Adverse Reaction (Unknown, Verified 06/01/22 15:19) Skin Rash Resuscitation Status Full Code Height 5 ft 4 in Weight 59.6 kg - Comments Comments/Follow Ups: watch QT/addition of any QT prolonging meds. Dig level, monitor BP and HR - Renal Dosing Renal Dosing: BUN 32 mg/dL (7-18) H 07/12/22 05:35 Creatinine 1.5 mg/dL (0.70-1.30) H 07/12/22 05:35 Medications needing adjustments: Reviewed (crcl = 40, adjustments not needed. Digoxin could need adjusting in future depending on levels) - Anticoagulation Anticoagulation: Hgb 15.0 g/dL (13.5-17.5) 07/11/22 05:35 Hct 45.1 % (40.0-50.0) 07/11/22 05:35 Plt Count 159 10^3/uL (130-400) 07/11/22 05:35 Creatinine 1.5 mg/dL (0.70-1.30) H 07/12/22 05:35 DVT Prophylaxis: Reviewed Medications: Apixaban Therapeutic Anticoagulation: Reviewed Medications: Apixaban (apixiban 5 mg BID (hx of PE)) - Opiate Usage Evaluate Pain Scale/Pains Meds: N/A (not on any opiates) - Relevant Labs Sodium 140 mmol/L (136-145) 07/12/22 05:35 Potassium 4.1 mmol/L (3.5-5.1) 07/12/22 05:35 Chloride 102 mmol/L (98-107) 07/12/22 05:35 Magnesium 1.7 mg/dL (1.8-2.4) L 07/10/22 13:46 Electrolytes, C-Reactive P, ESR: Reviewed - DM Control DM Control: Glucose 120 mg/dL (74-106) H 07/12/22 05:35 Insulin Dosing: Reviewed - Heart Failure/KY Heart Failure/KY: Troponin I < 50 ng/L (<or=60) 07/11/22 05:35 NT-Pro-B Natriuret Pep 2202 pg/mL (<300) H 07/11/22 05:35 EF%, FEDERICO's, B-Blockers, Diuretics: Reviewed - BP Control BP Control: Blood Pressure 108/75 Blood Pressure 98/74 Blood Pressure 81/66 Blood Pressure 76/60 Blood Pressure 86/68 Blood Pressure 84/64 If elevated: N/A (BP low tho HR has been elevated. Metoprolol started 07/10 but dc'd d/t hypotension. Diltiazem added, 180 mg ordered for tonight. *Dig loading dose given today with 0.125 mg daily starting tomorrow. Will need dig level in the next week) - Qtc Review If Elevated: Reviewed (QTc = 548) - IV to PO Switch IV Medications: Reviewed (dig currently ordered IV, switch to PO when able) - Home Meds Home Med List reviewed: Reviewed - Current meds Current Medication Order Review: Reviewed
--- NOTE | 2022-07-12 12:57 | W.PM.PROGNOT ---
Date of Service Date of service: 07/12/22 Time of Service: 12:57 Assessment and Plan Assessment and plan (1) Atrial flutter: Start date: 07/10/22 Status: Acute Assessment and plan: This is a 67-year-old gentleman with extensive cardiac disease who presents with tachycardia and chest pressure/pain with known atrial fibrillation/flutter on low-dose diltiazem chronically for rate control. Initially on cardizem drip; weaned off and started on oral cardizem. Rate not well controlled and BP did not allow increasing oral cardizem or adding metoprolol. Digoxin IV loading dose initiated. After the 0.5mg initial infusion his HR improved into the 80'-90's. He will receive 0.25mg 6 hours after the initial infusion, then another 0.25mg 6 hours later. Digoxin 0.125mg daily starting tomorrow. Change diltiazem to long-acting at 180mg nightly. Cont AC with Eliquis. Telemetry. (2) CHF exacerbation: Start date: 07/10/22 Status: Acute Assessment and plan: Initially on IV Lasix twice daily as blood pressure allows. Patient chronically is on spironolactone which will be continued. Now off lasix. Cont. daily wt. (3) Cocaine use: Status: Chronic Assessment and plan: Patient does have treatment cocaine and has significant psychiatric disease. This can only exacerbate his cardiac issues. He should have outpt counseling and cessation illicit drug use. (4) COPD (chronic obstructive pulmonary disease): Assessment and plan: No exacerbation Cont Asmanex and albuterol. Subjective Subjective Patient reports: no new complaints, feels better and afebrile; denies shortness of breath Interval history since last seen: Denies palpitations, CP Exam Narrative Exam Narrative: General: Pleasant, conversant. Cooperative. NAD. Neck: Supple without JVD. Lungs: Clear with diminished breath sounds. Nonlabored breathing. Heart: Irregular irregular rhythm w/o murmur Extremities: No edema, calf tenderness. Skin: Pale, warm and dry. Rough texture over sun exposed areas with actinic changes. Neuro: No focal motor deficits. No tremor. Psych: Affect is bright. Speech clear. Objective Last Vital Signs Temp 37 C 07/12/22 10:14 Pulse 75 07/12/22 09:31 Resp 24 07/12/22 10:14 BP 108/75 07/12/22 09:31 Pulse Ox 95 07/12/22 10:14 Laboratory Results - last 24 hr 07/12/22 05:35 Sodium 140 Potassium 4.1 Chloride 102 Carbon Dioxide 27.4 Anion Gap 10.6 BUN 32 H Creatinine 1.5 H Est GFR (CKD-EPI 2020) 50.71 Glucose 120 H Calcium 9.2
[2022-07-12] MEDS: Digoxin 0.5 MG/2 ML AMP 0.25 MG IVP ×2 (14:00→20:54)
[2022-07-12] MEDS: Normal Saline Flush 10 ML SYR IVP (20:54)
[2022-07-12] MEDS: Atorvastatin 40 MG TAB PO (20:55)
[2022-07-12] MEDS: dilTIAZem CD 180 MG CAPCR PO (21:42)
[2022-07-12] MEDS: Mylanta Suspension 30 ML CUP PO (21:42)
--- NOTE | 2022-07-12 22:15 | RT.EKG_ITS ---
APPROVED REPORT Exam: Resting ECG Reason for Exam: onset chest pain Patient Location: I HR:111 bpm ECG Measurements Heart Rate [address] [id number] P [id number] QRSd 84 QRS 59 QT 306 T 114 QTc 416 Conclusion Atrial flutter/fibrillation...A-rate 273, multiple Ps Probable LVH with secondary repol abnrm...multiple LVH criteria Minimal ST elevation, inferior leads...ST >0.06mV, II III aVF
--- NOTE | 2022-07-12 22:30 | DI.RAD_ITS ---
Exam(s) XR PORTABLE CHEST AP EXAM: XR PORTABLE CHEST AP CLINICAL HISTORY: Chest Pain. TECHNIQUE: 2D digital imaging was performed. COMPARISON: CR XR PORTABLE CHEST AP from 07/10/[address] CHEST PE CTA from 07/10/2022 FINDINGS: Single AP portable view. Chest leads in place. Heart size is slightly prominent. Mediastinum not significantly widened.. Mild pulmonary venous hypertension pattern but no airspace pulmonary edema. Mild blunting of left co stophrenic angle indicate small amount left pleural fluid. IMPRESSION: Mild cardiomegaly. Mild pulmonary venous hypertension pattern but no airspace pulmonary edema.Small left pleural effusion DATA REPOSITORY: RADIATION DOSE DELIVERED: All CT scans at this facility use at least one of these dose optimization techniques: automated exposure control; mA and/or kV adjustment per patient size (includes targeted e xams where dose is matched to clinical indication); or iterative reconstruction.
[2022-07-12] MEDS: nitroGLYcerin 0.4 MG TAB SL (22:49)
[2022-07-12] MEDS: Metoprolol 5 MG/5 ML VIAL IVP (23:05)
--- NOTE | 2022-07-12 23:12 | DI.VRAD_ITS ---
Addendum created by Krissy Rogers MD on 07/12/2022 11:42:56 PM EDT: THIS REPORT CONTAINS FINDINGS THAT MAY BE CRITICAL TO PATIENT CARE. The findings were verbally communicated via telephone conference with Miguel Macias at 11:42 PM EDT on 07/12/2022. The findings were acknowledged and understood. Initial report created on 07/12/2022 11:12:09 PM EDT: PROCEDURE INFORMATION: Exam: XR Chest Exam date and time: 07/12/2022 10:21 PM Age: 67 years old Clinical indication: Other: Chest pain TECHNIQUE: Imaging protocol: Radiologic exam of the chest. Views: 1 view. COMPARISON: CR XR PORTABLE CHEST AP 07/10/2022 3:[address] scan, 07/10/2022. FINDINGS: Lungs: No consolidation. There is a right paraspinal density overlying the cardiac shadow measuring 4.4 x 2.2 cm. No lesion was seen in this region on recent CT scan. It therefore may represent superimposition of structures. Pleural spaces: No pneumothorax. Blunting of the left costophrenic angle for which a small effusion is not excluded. Heart/Mediastinum: There is cardiomegaly and mediastinal widening. The mediastinum is actually wider than on prior examination measuring up to 8.9 cm. Bones/joints: There is a widened appearance to the right AC joint which should be correlated with any concern for old AC joint injury. This was also present on prior exam. There are skeletal degenerative changes. Other: There is a lucency under the left hemidiaphragm which may be related to the stomach bubble. However, a curvilinear stomach bubble appears slightly lower. If there is concern for free air in the upper abdomen, a repeat upright radiograph is recommended or alternatively CT scan. IMPRESSION: 1. Cardiomegaly and mediastinal widening. The mediastinum is actually wider than on prior exam. If there is concern for acute mediastinal or vascular abnormality, a repeat CTA is recommended. The patient's last CTA was on 07/10/2022. 2. Blunting of the left costophrenic angle for which a small effusion is not excluded. 3. There is a lucency under the left hemidiaphragm which may be related to the stomach bubble. However, a curvilinear stomach bubble appears slightly lower. If there is concern for free air in the upper abdomen, a repeat upright radiograph is recommended or alternatively CT scan. 4. Possible old right AC joint injury. Clinical correlation suggested. Other findings/details as above. Dictated and Authenticated by: Krissy Rogers MD. Ordering:KAHLIL Rivera MD
[2022-07-12] MEDS: Normal Saline 250 ML IV (23:15)
[2022-07-12] MEDS: Tamsulosin 0.4 MG CAPCR PO (23:48)
[2022-07-13] VITALS (96 sets, daily range): BP systolic 82–126; BP diastolic 44–82; PULSE 62–121; RESP 12–31; TEMP 36.3–37; O2SAT 82–98
[2022-07-13] MEDS: Normal Saline 250 ML IV (00:15)
--- NOTE | 2022-07-13 00:47 | W.EVENT ---
Date of service: 07/12/22 Time of Service: 20:00 Event Note: Called for CP. Awakened with CP, radiation to LUE, similar to prior anginal pain. EKG auto read question minimal inferior ST elevations but to my read this is artefactual related to flutter waves. CXR to my read is unchanged (vRads later questions mediastinal widening, to my read this is due to AP technique).. Initial eval of note for heart rates up to 130s-140s. Patient given NTG SL x 1 w/o effect. BP low 100s, given 2.5 Lopressor IV (along with 250 NS) with immediate slowing to 80s and 90s and patient reports pain is improved. Given additional 2.5 Lopressor with pulse slowing to 70s and patient reports pain has resolved.. A/P: Unequivocally demand ischemia secondary to RVR. Patient is currently being digitalized, if rate remains elevated in interim would treat with further doses of prn beta duarte as BP allows. Time Spent with Patient Time spent in critical care(minutes): 30 Time Spent Included: Chart review, Documenting critically ill care and Time at immediate bedside
--- NOTE | 2022-07-13 02:33 | NUR.NOTE ---
AT 2140 pt called this RN to the room to inform of the new onset of chest pain. Pt also described it as a heartburn, so this RN medicated with Mylanta. After 10 minutes, RN reassessed pt's condition and pt report that pain didn't improve. RN paged Dr. Macias who ordered stat EKG and XRAY. After those orders were completed, MD arrived to the bedside to assess pt. RN was present at the bedside. Pt scores pain 6/10 with now new onset of radiating feeling down to his left arm that he described as tingling. Visible sweat was present on the forehead . Nitro SL was order with no minimal relief, down to 4/10. Note: pt's HR has been in Aflutter and mosly between 110-130s for several days. MD also ordered 250ml NS bolus and followed up with IV Lopressor 5mg. Pt felt almost immediate relief and HR slowed down to 70s (still in Aflutter). Pt is now resting in bed and states pain is gone 0/10. Nursing Note:
[2022-07-13 06:12] LABS: Anion Gap 7.9 mmol/L (3-11); BUN 26 mg/dL (7-18); CO2 27.1 mmol/L (21.0-32.0); CREATININE 1.4 mg/dL (0.70-1.30); Calcium 8.7 mg/dL (8.5-10.1); Chloride 104 mmol/L (98-107); Estimated GFR 55.09 (mL/min/1.73m2); Glucose 110 mg/dL (74-106); Potassium 4.6 mmol/L (3.5-5.1); Sodium 139 mmol/L (136-145)
[2022-07-13 06:15] LABS: Magnesium 2.3 mg/dL (1.8-2.4)
[2022-07-13] MEDS: Albuterol HFA 8 GM 60 PUFF INH IH ×4 (08:13→20:38)
[2022-07-13] MEDS: Mometasone 220 MCG 14 DOSE INHALER 2 PUFF IH ×2 (08:14→20:38)
[2022-07-13] MEDS: Pantoprazole 40 MG TABCR PO (08:54)
[2022-07-13] MEDS: Pregabalin 50 MG CAP 150 MG PO ×2 (08:54→20:37)
[2022-07-13] MEDS: Citalopram 20 MG TAB 40 MG PO (08:54)
[2022-07-13] MEDS: Potassium Chloride 20 MEQ TABCR PO (08:55)
[2022-07-13] MEDS: Folic Acid 1 MG TAB PO (08:55)
[2022-07-13] MEDS: Clopidogrel 75 MG TAB PO (08:55)
[2022-07-13] MEDS: Ferrous Sulfate 325 MG TAB PO ×2 (08:55→20:37)
[2022-07-13] MEDS: Ascorbic Acid 500 MG TAB PO ×2 (08:56→20:37)
[2022-07-13] MEDS: Apixaban 5 MG TAB PO ×2 (08:56→20:37)
[2022-07-13] MEDS: Baclofen 10 MG TAB PO ×3 (08:56→20:40)
[2022-07-13] MEDS: Spironolactone 25 MG TAB PO (08:56)
--- NOTE | 2022-07-13 08:56 | CMPROGNOTE_ITS ---
- If Service Date Differs Date of service: 07/13/22 Time of Service: 08:56 Care Management Progress Note S/O:Miguel was sitting up in bed when CMmet with him. He was pleasant in interaction and easily engaged with CM. Miguel shared that he had a bad night because his heart rate was elevated again and he required several doses of medication to get it back under control. Miguel talked a lot today about his Evita who at [facility] 3 years ago. He admitted to missing her very much. 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 He also stated that he definitely wants to go to rehab. He feels that with additional strengthening he may be able to remain independent in the community for a while longer. A: Miguel is a 67 year old man admitted on 07/10/22 with atrial flutter and CHF P:Miguel would like to go to a SNF for short term rehab prior to returning home. Referrals have been sent by CM to [facility], [facility], [facility] and [place]. To date, only [facility] has responded and they declined to offer him a bed. CM will continue to support Miguel and assess for ongoing discharge needs.
[2022-07-13] MEDS: Cyanocobalamin 500 MCG TAB 1000 MCG PO (08:57)
[2022-07-13] MEDS: Magnesium Oxide 400 MG TAB PO ×2 (08:57→20:37)
[2022-07-13] MEDS: Normal Saline Flush 10 ML SYR IVP (08:57)
[2022-07-13] MEDS: lamoTRIgine 100 MG TAB PO ×2 (08:57→20:37)
[2022-07-13] MEDS: Finasteride 5 MG TAB PO (08:57)
[2022-07-13] MEDS: Digoxin 0.5 MG/2 ML AMP 0.125 MG IVP (09:04)
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
[2022-07-13] MEDS: Acetaminophen 325 MG TAB PO (12:08)
--- NOTE | 2022-07-13 15:54 | PTTR_ITS ---
Date of service: 07/13/22 Time of Service: 15:54 PT Notes Visit Reasons: Paroxysmal Atrial Flutter,Exacerbation CHF,Cocaine Inpatient Physical Therapy Treatment Note Date: 07/13/2022 Precautions: Fall. Standard. WBAT on B LE with AFO on the L LE and fracture boot on the R LE using AD. Subjective:? Agreeable to session. Denies headache and chest pain but continues to report pain in B LE with weight bearing. Nurse Sophia is aware. Objective:? General Observation: Supine in bed.? Telemetry monitoring in place. Mental Status: A&O x 3 Pain: 5-6/10 in B LE Vital Signs:? WNL as closely monitored via tele throughout activity Bed Mobility/Transfers: Supine to sit contact guard assist Sit to supine stand by assist Sit to stand contact guard assist Stand to sit stand by assist Bed to chair contact guard assist Chair to bed contact guard assist Gait:? Patient tolerated 75 feet of level surface ambulation using AFO on the L and fracture boot on the R using AD.? Wheelchair follow provided for safety. Complained of pain in B LE with R>>L at 5/10.? Increased hip hike on the R due to presence of R fracture boot.? Hemiplegic gait on the L.?MIld shortness of breath. Balance:? Static Sitting: Normal Dynamic Sitting: Normal Static Standing: Fair Dynamic Standing: Fair Assessment:?? Continues to report pain in B LE which patient states thave been chronic. AFO and fracture boot both worn out, will benefit from appropriately fitting AFO and new fracture boot for added stability and reduction of fall risk. Miguel is a 67-year-old male patient with past medical history significant for previous CVA and non-healing R trimalleolar fracture who presented to the ED on 07/10/2022 due to chest pain, dizziness, and and fast heart beat.? Patient admitted to using cocaine? a day prior to admission.? Patient is diagnosed with AF,? CHF excerbation,? cocaine use,? COPD exacerbation.? DISCHARGE RECOMMENDATIONS: [] ? Home with no services [] [] ? Home with services [specify] [] ? Home with outpatient PT [] [X] ? SNF for continued rehabilitation.? Patient will benefit from [facility] facility placement for continued skilled physical therapy services in order to progress mobility level, strength, and balance in preparation for a safe discharge to home. [] ? Nursing Home Care [] [] ? SNF versus LTC based on ability to participate and progress [] TREATMENT CODE/TIME: 21835 x 26 minutes beginning at 15:54 PM.
--- NOTE | 2022-07-13 17:42 | PGE_ITS ---
Date of Service Date of service: 07/13/22 Time of Service: 17:43 Assessment and Plan Assessment and plan (1) Atrial flutter: Start date: 07/10/22 Status: Acute Assessment and plan: This is a 67-year-old gentleman with extensive cardiac disease who presents with tachycardia and chest pressure/pain with known atrial fibrillation/flutter on low-dose diltiazem chronically for rate control. Initially on cardizem drip; weaned off and started on oral cardizem. Rate not well controlled and BP did not allow increasing oral cardizem or adding metoprolol. Digoxin IV loading dose initiated. After the 0.5mg initial infusion his HR improved into the 80'-90's. He will receive 0.25mg 6 hours after the initial infusion, then another 0.25mg 6 hours later. Digoxin 0.125mg daily Change diltiazem to long-acting at 180mg nightly and increased today to 240mg. He was given NTG SL x 1 and subsequently 2.5mg IV lopressor. His HR went from 130-140's to 80's - 90's. Cont AC with Eliquis. Telemetry. Of note, he had an episode of tachycardia overnight that resulted in chest pain. CXR showed mild cardiomegaly.? Mild pulmonary venous hypertension pattern but no airspace pulmonary edema.Small left pleural effusion (2) CHF exacerbation: Start date: 07/10/22 Status: Acute Assessment and plan: Initially on IV Lasix twice daily as blood pressure allows. Patient chronically is on spironolactone which will be continued. Now off lasix. Cont. daily wt. (3) Cocaine use: Status: Chronic Assessment and plan: Patient does have treatment cocaine and has significant psychiatric disease. This can only exacerbate his cardiac issues. He should have outpt counseling a nd cessation illicit drug use. He does endorse significant decrease in his cocaine usage. (4) COPD (chronic obstructive pulmonary disease): Assessment and plan: No exacerbation Cont Asmanex and albuterol. Stable. Subjective Subjective Patient reports: no new complaints, feels better, tolerating a regular diet and afebrile; denies nausea, vomiting or shortness of breath Exam Narrative Exam Narrative: General: Pleasant, conversant. Cooperative. NAD. Neck: Supple without JVD. Lungs: Clear with diminished breath sounds. Nonlabored breathing. Heart: Irregular irregular rhythm w/o murmur Extremities: No edema, calf tenderness. Skin: Pale, warm and dry. Rough texture over sun exposed areas with actinic changes. Neuro: No focal motor deficits. No tremor. Psych: Affect is bright. Speech clear. Objective Last Vital Signs Temp 36.3 C L 07/13/22 07:33 Pulse 88 07/13/22 09:04 Resp 18 07/13/22 15:40 BP 109/61 07/13/22 09:04 Pulse Ox 93 07/13/22 15:40 Laboratory Results - last 24 hr 07/13/22 07/13/22 05:23 05:23 Sodium 139 Potassium 4.6 Chloride 104 Carbon Dioxide 27.1 Anion Gap 7.9 BUN 26 H Creatinine 1.4 H Est GFR (CKD-EPI 2020) 55.09 Glucose 110 H Calcium 8.7 Magnesium 2.3
[2022-07-13] MEDS: Atorvastatin 40 MG TAB PO (20:37)
[2022-07-13] MEDS: Tamsulosin 0.4 MG CAPCR PO (20:37)
--- NOTE | 2022-07-13 21:16 | NUR.NOTE ---
Nursing Note: When pt was admitted to ICU on 07/10/22 med reconciliation was not done as pt doesn't remember his home medications w\o his list. When pt gets his list from home, he will be able to remember. Conveyed this msg to charge nurse Gemini [facility]
[2022-07-13] MEDS: dilTIAZem CD 120 MG CAPCR 240 MG PO (22:51)
[2022-07-14] VITALS (11 sets, daily range): BP systolic 105–131; BP diastolic 64–76; PULSE 52–92; RESP 15–18; TEMP 36.2–36.7; O2SAT 96–100
[2022-07-14] MEDS: Potassium Chloride 20 MEQ TABCR PO (07:56)
[2022-07-14] MEDS: Magnesium Oxide 400 MG TAB PO ×2 (07:57→19:40)
[2022-07-14] MEDS: Pantoprazole 40 MG TABCR PO (07:57)
[2022-07-14] MEDS: lamoTRIgine 100 MG TAB PO ×2 (07:57→19:39)
[2022-07-14] MEDS: Pregabalin 50 MG CAP 150 MG PO ×2 (07:57→19:39)
[2022-07-14] MEDS: Ferrous Sulfate 325 MG TAB PO ×2 (07:57→19:38)
[2022-07-14] MEDS: Spironolactone 25 MG TAB PO (07:58)
[2022-07-14] MEDS: Citalopram 20 MG TAB 40 MG PO (07:58)
[2022-07-14] MEDS: Cyanocobalamin 500 MCG TAB 1000 MCG PO (07:58)
[2022-07-14] MEDS: Ascorbic Acid 500 MG TAB PO ×2 (07:58→19:40)
[2022-07-14] MEDS: Baclofen 10 MG TAB PO ×3 (07:58→19:40)
[2022-07-14] MEDS: Folic Acid 1 MG TAB PO (07:58)
[2022-07-14] MEDS: Apixaban 5 MG TAB PO ×2 (07:58→19:40)
[2022-07-14] MEDS: Clopidogrel 75 MG TAB PO (07:58)
[2022-07-14] MEDS: Finasteride 5 MG TAB PO (07:58)
[2022-07-14] MEDS: Albuterol HFA 8 GM 60 PUFF INH IH ×4 (08:03→19:32)
[2022-07-14] MEDS: Mometasone 220 MCG 14 DOSE INHALER 2 PUFF IH ×2 (08:03→19:33)
[2022-07-14] MEDS: Digoxin 0.5 MG/2 ML AMP 0.125 MG IVP (09:30)
[2022-07-14] MEDS: Normal Saline Flush 10 ML SYR IVP ×3 (09:31→19:40)
--- NOTE | 2022-07-14 09:44 | PTTR_ITS ---
Date of service: 07/14/22 Time of Service: 09:09 PT Notes Visit Reasons: Paroxysmal Atrial Flutter,Exacerbation CHF,Cocaine Inpatient Physical Therapy Treatment Note [facility] Date: 07/14/2022 PRECAUTIONS: Fall, Activity as tolerated, WBAT B SUBJECTIVE: Miguel is pleasant and agreeable to participating in PT. He appears to be in good spirits today and reports that he is feeling better. He reports that he has been working on getting clean from drugs so he can have his R LE operated on. He also reports that he is mostly wheelchair bound at home for safety. OBJECTIVE: Patient demonstrates compliance and independence with donning/doffing AFO and walking boot. PAIN: Patient reports it's painful to walk on my left leg because that has al ways been my bad leg BED MOBILITY/TRANSFERS Supine-sit: I Sit-supine: I Sit-stand: S Stand-sit: S Bed-Chair: S GAIT Assistive Device: FWW Weight bearing: WBAT B with walking boot on R and AFO on L Assist: Supervision Distance: ~40' in a.m.; ~60' in p.m. Deviation: Antalgic gait, circumduction gait on R, pain in L LE, slow pacing, increased global fatigue THEREX: Patient was instructed in a LE strengthening program, completed in a seated position, to include: ankle pumps (modified), LAQ, hip flexion and hip abduction. Patient fatigues quickly. ASSESSMENT: Patient tolerated a progression in gait distance although with gait abnormalities including antalgia and circumduction. He fatigues quickly and c/o pain in L LE with weight bearing. Due to conditions of patients shoe (on L with AFO) and walking boot, patient is at risk for falls. He would benefit from replacement of walking boot and orthopedic shoe on left. Care management is aw are that patient may need outpatient follow up for new orthopedic/medical shoe. PLAN: Continue with gait training and endurance-promoting activities for improved activity tolerance. TREATMENT CODE/TIME: Session 1: 23 minutes; 67259, 50022 (09:09) Session 2: 25 minutes; 14070 x2 (12:45)
--- NOTE | 2022-07-14 10:10 | PDOC.CMPRO ---
- If Service Date Differs Date of service: 07/14/22 Time of Service: 10:10 Care Management Progress Note S/O: Miguel was sitting up in bed when CM met with him. Per PT, he is doing very well, and may be close to his baseline. CM discussed this with Miguel, who reported that he is still hoping to go to rehab, as he has had a difficult time managing his pain at home. CM and Miguel talked about his options, and made a plan that he will accept a bed if it is offered, but if there is no bed available, he will likely return home with support. He is agreeable with this plan. CM will continue to follow. A: Miguel is a 67 year old man admitted on 07/10/22 with atrial flutter and CHF P:Miguel would like to go to a SNF for short term rehab prior to returning home. Referrals have been sent by CM to [facility], [facility], [facility] and [facility]. To date, only [facility] has responded and they declined to offer him a bed. CM will continue to support Miguel and assess for ongoing discharge needs.
[2022-07-14] MEDS: Acetaminophen 325 MG TAB PO ×2 (11:16→19:37)
--- NOTE | 2022-07-14 14:48 | W.PM.PROGNOT ---
Date of Service Date of service: 07/14/22 Time of Service: 14:48 Assessment and Plan Assessment and plan (1) Atrial flutter: Start date: 07/10/22 Status: Acute Assessment and plan: This is a 67-year-old gentleman with extensive cardiac disease who presents with tachycardia and chest pressure/pain with known atrial fibrillation/flutter on low-dose diltiazem chronically for rate control. Initially on cardizem drip; weaned off and started on oral cardizem. Rate not well controlled and BP did not allow increasing oral cardizem or adding metoprolol. Digoxin IV loading dose initiated. After the 0.5mg initial infusion his HR improved into the 80'-90's. He will receive 0.25mg 6 hours after the initial infusion, then another 0.25mg 6 hours later. Digoxin 0.125mg daily Cont. long-acting diltiazem 240mg QHS. Cont AC with Eliquis. Telemetry. Pulse today ranging in the 60's to 80's with a single recording of 52. (2) CHF exacerbation: Start date: 07/10/22 Status: Acute Assessment and plan: Initially on IV Lasix twice daily as blood pressure allows. Patient chronically is on spironolactone which will be continued. Now off lasix. Cont. daily wt. (3) Cocaine use: Status: Chronic Assessment and plan: Patient does have treatment cocaine and has significant psychiatric disease. This can only exacerbate his cardiac issues. He should have outpt counseling and cessation illicit drug use. He does endorse significant decrease in his cocaine usage. (4) COPD (chronic obstructive pulmonary disease): Assessment and plan: No exacerbation Cont Asmanex and albuterol. Stable. (5) Trimalleolar fracture of ankle, closed: Status: Acute Assessment and plan: He used an AFO and a walking boot. PT recommends new AFO and boot d/t current ones being old and ill-fitting. Working with PT. He is interested in ongoing Rehab. Referrals to SNFs have been sent. Qualifiers: Encounter type: initial encounter Laterality: right Qualified Code(s): S82.851A - Displaced trimalleolar fracture of right lower leg, initial encounter for closed fracture Subjective Subjective Patient reports: no new complaints and tolerating a regular diet; denies nausea, vomiting or afebrile Interval history since last seen: Worked with PT and he was pleased the length of ambulation with a walker he achieved. He does state his feet were sore after walking. Exam Narrative Exam Narrative: General: Pleasant, conversant. Cooperative. NAD. Neck: Supple without JVD. Lungs: Clear with diminished breath sounds. Nonlabored breathing. Heart: Irregular irregular rhythm w/o murmur Extremities: No edema, calf tenderness. Skin: No rashes,lesions. Neuro: Speech normal. L>R generalized muscle weakness of upper and lower exts w/o focal deficit. Psych: Affect is bright. Speech clear. Objective Last Vital Signs Temp 36.5 C 07/14/22 11:29 Pulse 52 L 07/14/22 11:29 Resp 16 07/14/22 11:29 BP 105/64 07/14/22 11:29 Pulse Ox 98 07/14/22 11:29
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
[2022-07-14] MEDS: Atorvastatin 40 MG TAB PO (19:39)
[2022-07-14] MEDS: dilTIAZem CD 120 MG CAPCR 240 MG PO (21:21)
[2022-07-14] MEDS: Tamsulosin 0.4 MG CAPCR PO (21:22)
[2022-07-15] VITALS (7 sets, daily range): BP systolic 105–132; BP diastolic 67–82; PULSE 43–86; RESP 18; TEMP 35.8–37.1; O2SAT 94–97
[2022-07-15] MEDS: Digoxin 0.5 MG/2 ML AMP 0.125 MG IVP (07:45)
[2022-07-15] MEDS: Normal Saline Flush 10 ML SYR IVP (07:45)
[2022-07-15] MEDS: Pregabalin 50 MG CAP 150 MG PO (07:45)
[2022-07-15] MEDS: Citalopram 20 MG TAB 40 MG PO (07:45)
[2022-07-15] MEDS: Ascorbic Acid 500 MG TAB PO (07:46)
[2022-07-15] MEDS: Potassium Chloride 20 MEQ TABCR PO (07:46)
[2022-07-15] MEDS: Clopidogrel 75 MG TAB PO (07:46)
[2022-07-15] MEDS: lamoTRIgine 100 MG TAB PO (07:46)
[2022-07-15] MEDS: Finasteride 5 MG TAB PO (07:46)
[2022-07-15] MEDS: Cyanocobalamin 500 MCG TAB 1000 MCG PO (07:46)
[2022-07-15] MEDS: Pantoprazole 40 MG TABCR PO (07:46)
[2022-07-15] MEDS: Folic Acid 1 MG TAB PO (07:46)
[2022-07-15] MEDS: Spironolactone 25 MG TAB PO (07:46)
[2022-07-15] MEDS: Baclofen 10 MG TAB PO ×2 (07:46→13:17)
[2022-07-15] MEDS: Apixaban 5 MG TAB PO (07:46)
[2022-07-15] MEDS: Ferrous Sulfate 325 MG TAB PO (07:46)
[2022-07-15] MEDS: Albuterol HFA 8 GM 60 PUFF INH IH ×3 (08:39→15:59)
[2022-07-15] MEDS: Magnesium Oxide 400 MG TAB PO (09:42)
[2022-07-15] MEDS: Acetaminophen 325 MG TAB PO (12:07)
[2022-07-15] MEDS: Mometasone 220 MCG 14 DOSE INHALER 2 PUFF IH (12:11)
[2022-07-15 13:02] LABS: Digoxin 1.16 ng/mL (0.90-2.00)
--- NOTE | 2022-07-15 13:41 | PTTR_ITS ---
PT Notes Visit Reasons: Paroxysmal Atrial Flutter,Exacerbation CHF,Cocaine Inpatient Physical Therapy Treatment Note [facility] Date: 07/15/22 SUBJECTIVE: Miguel states that he is going home later today. He is hoping to have a new walking boot before he leaves. He indicated this pm that he did not want to walk as far as he did this am, as he had an increase in leg pain afterward. OBJECTIVE: [] BED MOBILITY/TRANSFERS Supine-sit:I Sit-supine: I Sit-stand: I Stand-sit: I GAIT Assistive Device: FWW Weight bearing: AT Assist: SBA Distance: 200' in am and approx 85' in pm. Deviation: AFO on left and walking boot on right THEREX: am session: global LE strengthening while seated including LAQ, hip flex , hip abd. No ex in pm session ASSESSMENT: as able to increase walking distance this am, but unfortunately over did it and noted and increase in LE discomfort. Opted not to walk as far in pm due to lingering pain from am walk. Transfers safely without LOB. Independent donning/doffing AFO and walking boot. PLAN: pt d/c to home with services later today. TREATMENT CODE/TIME: 25 min in am and 17 min in pm. [id number]
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
--- NOTE | 2022-07-15 14:46 | PDOC.HHF2F ---
Home Health Certification Home Health Certification: 1. Encounter Date and Reason I certify that Miguel Pérez was seen by Enzo Sloan MD on 07/15/22 and that I had a [id number] encounter with this patient that meets the physician face to face encounter requirements. 2. Clinical Findings Supporting Skilled Need and Homebound Status I certify that home health services are medically necessary, include either intermittent half-way and/or physical/speech therapy, and that this patient is homebound in that absences from the home require considerable and taxing effort and are infrequent or of short duration, or are attributable to the need to receive medical care. [X] (a) Attached documentation from encounter provides clinical findings supporting skilled need and homebound status (including what assistance patient requires to leave the home). The encounter with the patient was in whole, or in part, for the following medical condition, which is the primary reason for home health care: Paroxysmal Atrial Flutter,Exacerbation CHF,Cocaine Correction:Monitor patient's medical condition, instruct on medication regimen and signs and symptoms to report. She is at risk of decompensation and/or adverse events due to recent hospitalization. Physical Therapy: Speech Therapy: Homebound:He is unable to leave home without assistance and ambulation is severely limited due to lower extremity pain, decreased strength and endurance. 3. Certification and Authentication I certify that I composed the above information based on my clinical judgement relating to this patient's medical condition and, if applicable, clinical findings communicated to me by the NPP or inpatient physician who performed the Home Health Referral. All further orders will be obtained through Aissatou Briggs (Community Based Physician - PCP)
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
--- NOTE | 2022-07-15 19:12 | CMDISCH_ITS ---
- If Service Date Differs Date of service: 07/15/22 Time of Service: 19:12 LACE Index Scoring Tool - Questions: Length of Stay (in days): 4 - 6 Acuity (Admit via E.D.?): Yes Comorbidities: Cerebrovascular Disease, Congestive Heart Failure, Chronic Pulmonary Disease E.D. Visits: 4 - Answers: Total Score: 16 Risk of Readmission: High Risk Care Management Discharge Reason for Hospitalization: atrial flutter Discharge Plan: Migeul returned home today with new orders for HH RN, PT, OT, MANUFACTURING MANAGER. Per PT he has been doing very well, and no longer required SNF upon discharge. His daughter will pick him up this evening after work. He will follow up with his PCP and discharge plan of care. He is happy to be going home. Patient/Family Education Needs: Review discharge instructions and limitations, discussion of self care needs including ask me three. Services Needed at Discharge: Home Health Care Services (HH RN, PT, OT, MANUFACTURING MANAGER)
== END 2022-07-15 20:05 | disposition home health service (06) | DRG 308 ==
LOC: ER 23:11 → ICU 07-11 03:09 → MS 07-13 21:39
PROVIDERS: Family Medicine; Registered Nurse Emergency; Admitting Provider Family Medicine; Emergency Provider Physician Assistant; PCP Nurse Practitioner; Visit Provider Family Medicine
DX: I48.92 Unspecified atrial flutter (principal); I50.23 Acute on chronic systolic (congestive) heart failure; I27.82 Chronic pulmonary embolism; I69.354 Hemiplegia and hemiparesis following cerebral infarction affecting left non-dominant side; I24.8 Other forms of acute ischemic heart disease; F14.90 Cocaine use, unspecified, uncomplicated; I25.2 Old myocardial infarction; I48.0 Paroxysmal atrial fibrillation; G40.909 Epilepsy, unspecified, not intractable, without status epilepticus; G89.29 Other chronic pain; I25.5 Ischemic cardiomyopathy; D69.6 Thrombocytopenia, unspecified; E78.5 Hyperlipidemia, unspecified; R33.9 Retention of urine, unspecified; R26.89 Other abnormalities of gait and mobility; Z91.14 Patient's other noncompliance with medication regimen; R29.6 Repeated falls; R13.12 Dysphagia, oropharyngeal phase; J44.9 Chronic obstructive pulmonary disease, unspecified; I25.10 Atherosclerotic heart disease of native coronary artery without angina pectoris; F41.9 Anxiety disorder, unspecified; M54.50 Low back pain, unspecified; F43.23 Adjustment disorder with mixed anxiety and depressed mood; I27.20 Pulmonary hypertension, unspecified; S82.851D Displaced trimalleolar fracture of right lower leg, subsequent encounter for closed fracture with routine healing; X58.XXXD Exposure to other specified factors, subsequent encounter
CPT/HCPCS: 36415; 71275; 80048; 80053; 80307; 87635; 93005; 94640; 96361; 96365; 96366; 96375; 96376; 97110; 97162; 97530; 99291; 70450; 71045; 80162; 80329; 81003; 81015; 83735; 83880; 84443; 84484; 85025; 85379; 93010; 99223; 99232; 99233; 99239; J1160; J1940; J2765; J3490

== ENCOUNTER 2022-07-17 12:18 | Inpatient (IN) | payer MEDICARE, SELFPAY ==
[2022-07-17] VITALS (107 sets, daily range): BP systolic 84–147; BP diastolic 54–131; PULSE 54–146; RESP 0–27; TEMP 36–36.9; O2SAT 92–100
--- NOTE | 2022-07-17 12:00 | RT.EKG_ITS ---
APPROVED REPORT Exam: Resting ECG Reason for Exam: RAPID AFIB Patient Location: E HR:140 bpm ECG Measurements Heart Rate 140 AXIS WI 107 P 85 QRSd 137 QRS 54 QT 349 T 263 QTc 533 Conclusion tachycardia...rate> 99 Nonspecific intraventricular conduction delay...QRSd >115mS, not LBBB/RBBB Nonspecific repol abnormality, diffuse leads...ST dep, T flat/neg, ant/lat/inf atrial flutter
[2022-07-17 12:55] LABS: Abs Immature Grans 0.04 10^3/uL (0.0-0.06); Absolute Basophil Count 0.06 10^3/uL (0.0-0.2); Absolute Eosinophil Count 0.44 10^3/uL (0.0-0.7); Absolute Lymphocyte Count 1.55 10^3/uL (1.2-3.4); Absolute Monocyte Count 0.68 10^3/uL (0.1-0.8); Absolute Neutrophil Count 3.97 10^3/uL (1.2-6.7); Basophils % 0.9; Eosinophils % 6.5; HCT 47.6 % (40.0-50.0); HGB 16.5 g/dL (13.5-17.5); Immature Grans % 0.6; MCHC 34.7 % (32.0-36.0); MCV 89 fL (80-95); MPV 10.2 fL (8.0-11.0); Monocytes % 10.1; Neutrophils % 58.9; Platelet Count 152 10^3/uL (130-400); RBC 5.33 10^6/uL (4.36-5.78); RDW 13.2 % (11.8-14.1); RDW-SD 43.2 fL; WBC 6.74 10^3/uL (4.4-10.8)
[2022-07-17 13:02] LABS: Source Nasal/Nares
[2022-07-17 13:31] LABS: ALT 32 U/L (16-63); AST 21 U/L (15-37); Albumin 3.9 g/dL (3.4-5.0); Alkaline Phosphatase 155 U/L (46-116); Anion Gap 8.8 mmol/L (3-11); BUN 30 mg/dL (7-18); Bilirubin, Total 0.6 mg/dL (0.2-1.0); CO2 24.2 mmol/L (21.0-32.0); CREATININE 1.1 mg/dL (0.70-1.30); Calcium 9.2 mg/dL (8.5-10.1); Chloride 103 mmol/L (98-107); Estimated GFR 73.58 (mL/min/1.73m2); Glucose 102 mg/dL (74-106); Potassium 4.6 mmol/L (3.5-5.1); Sodium 136 mmol/L (136-145); Total Protein 7.3 g/dL (6.4-8.2); Troponin I < 50 ng/L (<or=60)
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
[2022-07-17] MEDS: Digoxin 0.125 MG TAB PO (13:57)
[2022-07-17] MEDS: dilTIAZem CD 120 MG CAPCR 240 MG PO (13:57)
[2022-07-17] MEDS: dilTIAZem 25 MG/5 ML VIAL 15 MG IVP (13:58)
[2022-07-17] MEDS: dilTIAZem 125 MG in Normal Saline 100 ML IV (14:29)
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
[2022-07-17 16:04] LABS: Troponin I 53 ng/L (<or=60)
--- NOTE | 2022-07-17 17:29 | CHAPLAIN ---
Miguel is well know to staff here. He was discharged two days ago after being admitted for cardiac issues. He is back with similar concerns. According to ED notes he said he wasn't able to fill his prescriptions. Miguel didn't mention that to me. He is hoping, as he did at the last admission, to be discharged to a skilled nursing health facility. He says he can no longer care for himself at home. His granddaughter is living in the trailer with him, and other people who use drugs, according to Miguel. He said he was using in the past, but has not used for six days. In the past Miguel was very connected to the [facility]. He gave me permission to let them know he is here. I left a message on the answering machine as it was after office hours there. Miguel said he believes he is will not live for another year. Maybe months, he said, but not a year. He is not afraid of dying, he told me, and said he has a good relationship with God. I let him know that slice cutting machine operator is available 24/05 and he can always ask for a field training manager to visit with him.
[2022-07-17 18:03] LABS: Lab Add On Test DONE
[2022-07-17 18:41] LABS: NT-proBNP 1538 pg/mL (<300)
[2022-07-17] MEDS: Tamsulosin 0.4 MG CAPCR PO (20:44)
[2022-07-17] MEDS: Atorvastatin 40 MG TAB PO (20:44)
[2022-07-17] MEDS: Ferrous Sulfate 325 MG TAB PO (20:45)
[2022-07-17] MEDS: lamoTRIgine 100 MG TAB PO (20:45)
[2022-07-17] MEDS: Baclofen 10 MG TAB PO (20:45)
[2022-07-17] MEDS: Apixaban 5 MG TAB PO (20:45)
[2022-07-17] MEDS: Ascorbic Acid 500 MG TAB PO (20:45)
[2022-07-17] MEDS: Albuterol HFA 8 GM 60 PUFF INH IH (20:46)
[2022-07-17] MEDS: Pregabalin 50 MG CAP 150 MG PO (20:46)
[2022-07-17] MEDS: Mometasone 220 MCG 14 DOSE INHALER 1 PUFF IH (20:46)
[2022-07-17] MEDS: Acetaminophen 325 MG TAB PO (20:50)
[2022-07-17 21:20] LABS: Troponin I 53 ng/L (<or=60)
[2022-07-17 22:30] LABS: COVID-19 PCR Negative (Negative)
[2022-07-18] VITALS (54 sets, daily range): BP systolic 86–118; BP diastolic 52–99; PULSE 60–95; RESP 9–29; TEMP 36.9; O2SAT 91–98
[2022-07-18 06:48] LABS: Abs Immature Grans 0.06 10^3/uL (0.0-0.06); Absolute Basophil Count 0.07 10^3/uL (0.0-0.2); Absolute Eosinophil Count 0.55 10^3/uL (0.0-0.7); Absolute Monocyte Count 0.75 10^3/uL (0.1-0.8); Eosinophils % 7.6; HCT 45.6 % (40.0-50.0); HGB 15.3 g/dL (13.5-17.5); Immature Grans % 0.8; Lymphocytes % 27.7; MCH 30.4 pg (27.0-33.0); MCHC 33.6 % (32.0-36.0); MCV 91 fL (80-95); MPV 9.8 fL (8.0-11.0); Monocytes % 10.4; Neutrophils % 52.5; Platelet Count 138 10^3/uL (130-400); RBC 5.03 10^6/uL (4.36-5.78); RDW 12.9 % (11.8-14.1); RDW-SD 42.4 fL; WBC 7.23 10^3/uL (4.4-10.8)
[2022-07-18 07:13] LABS: *AMPHETAMINES SCREEN URINE Negative (Negative); *BARBITURATES SCREEN URINE Negative (Negative); *BENZODIAZEPINES SCREEN URINE Negative (Negative); Cannabinoids THC Negative (Negative); Cocaine Screen,Urine Negative (Negative); METHADONE URINE SCREEN Negative (Negative); OPIATES URINE SCREEN Negative (Negative)
[2022-07-18 07:14] LABS: Tricyclic Antidepressants Negative (Negative)
[2022-07-18 07:14] LABS: Anion Gap 11.4 mmol/L (3-11); BUN 33 mg/dL (7-18); CO2 22.6 mmol/L (21.0-32.0); CREATININE 1.3 mg/dL (0.70-1.30); Chloride 103 mmol/L (98-107); Estimated GFR 60.21 (mL/min/1.73m2); Glucose 109 mg/dL (74-106); Potassium 4.4 mmol/L (3.5-5.1); Sodium 137 mmol/L (136-145)
[2022-07-18] MEDS: Digoxin 0.125 MG TAB PO (07:46)
[2022-07-18] MEDS: Pregabalin 50 MG CAP 150 MG PO (07:46)
[2022-07-18] MEDS: Ferrous Sulfate 325 MG TAB PO (07:46)
[2022-07-18] MEDS: Cyanocobalamin 500 MCG TAB 1000 MCG PO (07:47)
[2022-07-18] MEDS: Apixaban 5 MG TAB PO (07:47)
[2022-07-18] MEDS: Finasteride 5 MG TAB PO (07:47)
[2022-07-18] MEDS: Baclofen 10 MG TAB PO ×2 (07:47→13:59)
[2022-07-18] MEDS: Clopidogrel 75 MG TAB PO (07:47)
[2022-07-18] MEDS: Folic Acid 1 MG TAB PO (07:47)
[2022-07-18] MEDS: Magnesium Oxide 400 MG TAB PO (07:47)
[2022-07-18] MEDS: Ascorbic Acid 500 MG TAB PO (07:47)
[2022-07-18] MEDS: Furosemide 40 MG TAB PO (07:47)
[2022-07-18] MEDS: Pantoprazole 40 MG TABCR PO (07:47)
[2022-07-18] MEDS: Spironolactone 25 MG TAB PO (07:47)
[2022-07-18] MEDS: lamoTRIgine 100 MG TAB PO (07:48)
[2022-07-18] MEDS: Citalopram 20 MG TAB 40 MG PO (07:48)
[2022-07-18] MEDS: Ergocalciferol 50000 UNITS CAP PO (07:49)
--- NOTE | 2022-07-18 08:00 | RT.EKG_ITS ---
APPROVED REPORT Exam: Resting ECG Reason for Exam: atrial flutter Patient Location: I HR:68 bpm ECG Measurements Heart Rate 68 AXIS WV [id number] P [id number] QRSd 119 QRS 58 QT 406 T 114 QTc 432 Conclusion Atrial flutter with predominant 4:1 AV block...A-rate 272, multiple Ps Abnrm T, consider ischemia, anterolateral lds...T <-0.20mV, I aVL V2-V6 Baseline wander in lead(s) V3,V5,V6
[2022-07-18] MEDS: Albuterol HFA 8 GM 60 PUFF INH IH ×2 (08:14→12:38)
[2022-07-18] MEDS: Mometasone 220 MCG 14 DOSE INHALER 1 PUFF IH (08:15)
--- NOTE | 2022-07-18 09:39 | W.PM.PROGNOT ---
Date of Service Date of service: 07/18/22 Time of Service: 09:39 Assessment and Plan Assessment and plan (1) Atrial flutter: Status: Acute Assessment and plan: diltiazem drip on hold, I will dc diltiazem drip and resume his oral long acting diltiazem 240 mg. It was orderd at and he did receive a dose in the ER yesterday afternoon. I will change the timing to qam beginning today. If his HR remains controlled off the iv dilitazem, then he could be dc home this afternon as long as he has his home meds to take. I will ask pharmacy to dispense enough to get him through the weekend and have CM look into why his meds were not delivered from [place] pharmacy (2) Noncompliance with medication regimen: Status: Acute Assessment and plan: unclear as to where the fault lies as to why he did not receive his meds. I will ask CM to look into this. His daughter whom I spoke w/ on the phone after his arrival to the ICU, she indicated she could pick them up if she knows about them. I told her that we will coordinate between her and her father and the pharmacy regarding how he will get his meds when he returns home. I anticipate his return home tomorrow. (3) CHF (congestive heart failure): Status: Chronic Assessment and plan: Patient is not in overt acute CHF. continue his current home regimen of furosemide, spironolactone, cont. his plavix for his CAD. (4) Cocaine use: Status: Chronic Assessment and plan: patient denies any use since he left the hospital. during his last admission he admitted to use and his UDS was positive. we did not test this admission (5) CAD (coronary artery disease): Status: Chronic Assessment and plan: no chest tightness today. troponins never william significantly and remain around 53 which is at the ULN. repeat EKG (6) Seizure disorder: Status: Chronic Assessment and plan: cont. his lamotrigine (7) Discharge planning issues: Status: Acute Assessment and plan: if his HR remains controlled this morning on his digoxin and cardizem CD then he will be dc home this afternoon. I have talked w/ our pharmacist who indicated that we can dispense enough for him to get through the weekend while we sort out why his pharmacy did not dispense his meds last week. Subjective Subjective Interval history since last seen: Patient denies any CP or dyspnea. Rhythm remains atrial flutter but much improved rate control. Resting HR is 60's to 70's, and briefly gets up into the 100's w/ getting out of bed to use his commode. Exam Narrative Exam Narrative: Miguel is alert and oriented x 3, sitting up in bed watching TV having finished his breakfast Lungs: clear Heart: regular, no murmur Abdomen: soft, nontender Extremities: no edema Objective Last Vital Signs Temp 36.9 C 07/18/22 08:18 Pulse 79 07/18/22 08:18 Resp 23 07/18/22 08:18 BP 97/56 L 07/18/22 06:01 Pulse Ox 98 07/18/22 08:18 Laboratory Results - last 24 hr 07/17/22 07/17/22 07/17/22 12:46 12:46 13:00 WBC 6.74 RBC 5.33 Hgb 16.5 Hct 47.6 MCV 89 MCH 31.0 MCHC 34.7 RDW 13.2 Plt Count 152 MPV 10.2 Immature Gran % 0.6 Neutrophils % 58.9 Lymphocytes % 23.0 Monocytes % 10.1 Eosinophils % 6.5 Basophils % 0.9 Nucleated RBC % 0.0 Absolute Neutrophils 3.97 Absolute Lymphocytes 1.55 Absolute Monocytes 0.68 Absolute Eosinophils 0.44 Absolute Basophils 0.06 Sodium 136 Potassium 4.6 Chloride 103 Carbon Dioxide 24.2 Anion Gap 8.8 BUN 30 H Creatinine 1.1 Est GFR (CKD-EPI 2020) 73.58 Glucose 102 Calcium 9.2 Magnesium 2.0 Total Bilirubin 0.6 AST 21 ALT 32 Alkaline Phosphatase 155 H Troponin I < 50 NT-Pro-B Natriuret Pep Total Protein 7.3 Albumin 3.9 Digoxin 0.40 L Urine Opiates Screen Urine Methadone Screen Ur Barbiturates Screen Ur Tricyclics Screen Ur Amphetamines Screen U Benzodiazepines Scrn Urine Cocaine Screen Ur THC Screen COVID-19 Source Nasal/Nares SARS-CoV-2 (PCR) Negative Add-On Test Request 07/17/22 07/17/22 07/17/22 15:20 15:20 15:20 WBC RBC Hgb Hct MCV MCH MCHC RDW Plt Count MPV Immature Gran % Neutrophils % Lymphocytes % Monocytes % Eosinophils % Basophils % Nucleated RBC % Absolute Neutrophils Absolute Lymphocytes Absolute Monocytes Absolute Eosinophils Absolute Basophils Sodium Potassium Chloride Carbon Dioxide Anion Gap BUN Creatinine Est GFR (CKD-EPI 2020) Glucose Calcium Magnesium Total Bilirubin AST ALT Alkaline Phosphatase Troponin I 53 NT-Pro-B Natriuret Pep 1538 H Total Protein Albumin Digoxin Urine Opiates Screen Urine Methadone Screen Ur Barbiturates Screen Ur Tricyclics Screen Ur Amphetamines Screen U Benzodiazepines Scrn Urine Cocaine Screen Ur THC Screen COVID-19 Source SARS-CoV-2 (PCR) Add-On Test Request DONE 07/17/22 07/18/22 07/18/22 20:40 06:25 06:25 WBC 7.23 RBC 5.03 Hgb 15.3 Hct 45.6 MCV 91 MCH 30.4 MCHC 33.6 RDW 12.9 Plt Count 138 MPV 9.8 Immature Gran % 0.8 Neutrophils % 52.5 Lymphocytes % 27.7 Monocytes % 10.4 Eosinophils % 7.6 Basophils % 1.0 Nucleated RBC % 0.0 Absolute Neutrophils 3.80 Absolute Lymphocytes 2.00 Absolute Monocytes 0.75 Absolute Eosinophils 0.55 Absolute Basophils 0.07 Sodium 137 Potassium 4.4 Chloride 103 Carbon Dioxide 22.6 Anion Gap 11.4 H BUN 33 H Creatinine 1.3 Est GFR (CKD-EPI 2020) 60.21 Glucose 109 H Calcium 9.0 Magnesium Total Bilirubin AST ALT Alkaline Phosphatase Troponin I 53 NT-Pro-B Natriuret Pep Total Protein Albumin Digoxin Urine Opiates Screen Urine Methadone Screen Ur Barbiturates Screen Ur Tricyclics Screen Ur Amphetamines Screen U Benzodiazepines Scrn Urine Cocaine Screen Ur THC Screen COVID-19 Source SARS-CoV-2 (PCR) Add-On Test Request 07/18/22 06:35 WBC RBC Hgb Hct MCV MCH MCHC RDW Plt Count MPV Immature Gran % Neutrophils % Lymphocytes % Monocytes % Eosinophils % Basophils % Nucleated RBC % Absolute Neutrophils Absolute Lymphocytes Absolute Monocytes Absolute Eosinophils Absolute Basophils Sodium Potassium Chloride Carbon Dioxide Anion Gap BUN Creatinine Est GFR (CKD-EPI 2020) Glucose Calcium Magnesium Total Bilirubin AST ALT Alkaline Phosphatase Troponin I NT-Pro-B Natriuret Pep Total Protein Albumin Digoxin Urine Opiates Screen Negative Urine Methadone Screen Negative Ur Barbiturates Screen Negative Ur Tricyclics Screen Negative Ur Amphetamines Screen Negative U Benzodiazepines Scrn Negative Urine Cocaine Screen Negative Ur THC Screen Negative COVID-19 Source SARS-CoV-2 (PCR) Add-On Test Request
[2022-07-18] MEDS: dilTIAZem CD 120 MG CAPCR 240 MG PO (09:46)
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
--- NOTE | 2022-07-18 14:41 | PDOC.HHF2F_ITS ---
Home Health Certification Home Health Certification: 1. Encounter Date and Reason I certify that Miguel Pérez was seen by Lexx Gooden on 07/18/22 and that I had a [id number] encounter with this patient that meets the physician face to face encounter requirements. 2. Clinical Findings Supporting Skilled Need and Homebound Status I certify that home health services are medically necessary, include either intermittent [place] [facility] and/or physical/speech therapy, and that this pat ient is homebound in that absences from the home require considerable and taxing effort and are infrequent or of short duration, or are attributable to the need to receive medical care. [X] (a) Attached documentation from encounter provides clinical findings supporting skilled need and homebound status (including what assistance patient requires to leave the home). The encounter with the patient was in whole, or in part, for the following medical condition, which is the primary reason for home health care: Atrial flutter w/RVR Group Home: Home health nurse and AIR FILLER to evaluate and treat patient for recent admission for atrial flutter with rapid ventricular rate Physical Therapy: Occupational Therapy and physical therapy to evaluate and treat for generalized weakness and deconditioning secondary to his chronic conditions as well as exacerbation from his rapid atrial flutter Speech Therapy: Homebound: Patient's ambulatory status is such that he cannot safely transport in and out of his house without jeopardizing his health. 3. Certification and Authentication I certify that I composed the above information based on my clinical judgement relating to this patient's medical condition and, if applicable, clinical findings communicated to me by the NPP or inpatient physician who performed the Home Health Referral. All further orders will be obtained through ____NANCY VILLAVICENCIO NP (Community Based Physician - PCP)
== END 2022-07-18 15:00 | disposition home health service (06) | DRG 309 ==
LOC: ER 14:48 → ICU 15:42
PROVIDERS: Admitting Provider Internal Medicine; Emergency Provider Student in an Organized Health Care Education/Training Program; PCP Nurse Practitioner; Visit Provider Internal Medicine
DX: I48.92 Unspecified atrial flutter (principal); F11.20 Opioid dependence, uncomplicated; I24.8 Other forms of acute ischemic heart disease; I50.22 Chronic systolic (congestive) heart failure; I69.354 Hemiplegia and hemiparesis following cerebral infarction affecting left non-dominant side; R45.851 Suicidal ideations; I25.10 Atherosclerotic heart disease of native coronary artery without angina pectoris; F14.10 Cocaine abuse, uncomplicated; Z79.01 Long term (current) use of anticoagulants; Z91.14 Patient's other noncompliance with medication regimen; G40.909 Epilepsy, unspecified, not intractable, without status epilepticus; Z79.899 Other long term (current) drug therapy; I25.2 Old myocardial infarction; J44.9 Chronic obstructive pulmonary disease, unspecified; I27.20 Pulmonary hypertension, unspecified; I25.5 Ischemic cardiomyopathy; R26.89 Other abnormalities of gait and mobility; D69.6 Thrombocytopenia, unspecified; R33.9 Retention of urine, unspecified; E78.5 Hyperlipidemia, unspecified; R40.0 Somnolence; R13.12 Dysphagia, oropharyngeal phase; Z86.711 Personal history of pulmonary embolism; Z87.820 Personal history of traumatic brain injury; E53.8 Deficiency of other specified B group vitamins; G89.29 Other chronic pain; M54.50 Low back pain, unspecified; M48.02 Spinal stenosis, cervical region; I11.0 Hypertensive heart disease with heart failure; Z95.5 Presence of coronary angioplasty implant and graft; F43.23 Adjustment disorder with mixed anxiety and depressed mood
CPT/HCPCS: 36415; 80048; 80053; 80307; 87635; 93005; 94640; 96365; 96376; 99291; 80162; 83735; 83880; 84484; 85025; 93010; 99239

== ENCOUNTER 2022-07-28 03:30 | Outpatient (CLI) | payer MEDICARE, SELFPAY | END 2022-07-28 03:31 | disposition home or self-care (01) | LOC: RT 03:30 | PROVIDERS: PCP Nurse Practitioner; Visit Provider Internal Medicine | DX: I48.91 Unspecified atrial fibrillation (principal) | CPT/HCPCS: 93270 ==

== ENCOUNTER 2022-08-15 00:50 | Emergency (ER) | payer MEDICARE, SELFPAY ==
--- NOTE | 2022-08-15 00:45 | RT.EKG_ITS ---
APPROVED REPORT Exam: Resting ECG Reason for Exam: Patient Location: E HR:125 bpm ECG Measurements Heart Rate 125 AXIS NE 180 P 132 QRSd 114 QRS 62 QT 346 T [id number] QTc 499 Conclusion Sinus tachycardia...rate> 99 Repol abnrm suggests ischemia, diffuse leads...ST-T neg, ant/lat/inf Physician: Sinus tachycardia, rate 125, no significant ST elevation. Minimal depression noted in V3 V4 V5. No reciprocal elevation. No STEMI, similiar to old ekg
--- NOTE | 2022-08-15 00:45 | DI.CT_ITS ---
Exam(s) CT HEAD CERVICAL SPINE WO EXAM: CT HEAD CERVICAL SPINE WO CLINICAL HISTORY: fall, thinners, r/o bleed. TECHNIQUE: Imaging Protocol: Axial computed tomography images with coronal and sagittal reformatted images were created and reviewed COMPARISON: CT CT HEAD WO from 07/10/2022 FINDINGS: CT Head: Ventricles and Extra axial spaces: Normal in size and morphology for the patient's age. Hemorrhage: None. Cerebral parenchyma: No acute territorial infarct. 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 Midline shift: None. Brainstem/Cerebellum: Normal. Calvarium: Normal. Visualized Paranasal sinuses/Mastoids: There is mild mucosal thickening throughout the visualized par anasal sinuses. No air-fluid levels are seen. Soft Tissues: Unremarkable. CT Cervical Spine: Bones: No acute fracture or subluxation. Moderate cervical spondylosis. C4 and C5 laminectomy change s. Soft Tissues: Unremarkable. Lung Apices: Clear. IMPRESSION: 1. No acute intracranial process. 2. No acute fracture or subluxation in the cervical spine. RADIATION DOSE DELIVERED: 1,396.65mGy.cm Total DLP DATA REPOSITORY: All CT scans at this facility are submitted to the National Radiology Data Registry (NRDR) Dose Index Registry (DIR) with the [employer] (ACR). RADIATION OPTIMIZATION: All CT scans at this facility use at least one of these dose optimization te chniques: automated exposure control; mA and/or kV adjustment per patient size (includes targeted exa ms where dose is matched to clinical indication); or iterative reconstruction.
[2022-08-15 01:01] LABS: Abs Immature Grans 0.02 10^3/uL (0.0-0.06); Absolute Basophil Count 0.05 10^3/uL (0.0-0.2); Absolute Eosinophil Count 0.23 10^3/uL (0.0-0.7); Absolute Lymphocyte Count 1.44 10^3/uL (1.2-3.4); Absolute Monocyte Count 0.83 10^3/uL (0.1-0.8); Basophils % 0.6; Eosinophils % 2.6; HCT 42.2 % (40.0-50.0); HGB 14.6 g/dL (13.5-17.5); Immature Grans % 0.2; Lymphocytes % 16.1; MCH 31.1 pg (27.0-33.0); MCHC 34.6 % (32.0-36.0); MCV 90 fL (80-95); MPV 9.7 fL (8.0-11.0); Monocytes % 9.3; Neutrophils % 71.2; Platelet Count 146 10^3/uL (130-400); RBC 4.69 10^6/uL (4.36-5.78); RDW-SD 42.7 fL; WBC 8.97 10^3/uL (4.4-10.8)
[2022-08-15 01:02] VITALS: BP 125/93; PULSE 127; RESP 24; TEMP 36.6
[2022-08-15 01:05] VITALS: RESP 19
[2022-08-15 01:15] LABS: PTT Activated 24.7 sec (21.0-27.5)
[2022-08-15 01:25] LABS: ALT 16 U/L (16-63); AST 16 U/L (15-37); Albumin 4.1 g/dL (3.4-5.0); Alkaline Phosphatase 138 U/L (46-116); Anion Gap 6.5 mmol/L (3-11); BUN 22 mg/dL (7-18); Bilirubin, Total 0.4 mg/dL (0.2-1.0); CO2 28.5 mmol/L (21.0-32.0); CREATININE 1.4 mg/dL (0.70-1.30); Calcium 9.5 mg/dL (8.5-10.1); Chloride 101 mmol/L (98-107); Estimated GFR 55.09 (mL/min/1.73m2); Glucose 160 mg/dL (74-106); Potassium 3.7 mmol/L (3.5-5.1); Sodium 136 mmol/L (136-145); TSH (W/Ref FT4) 1.36 uIU/mL (0.36-3.74); Total Protein 7.3 g/dL (6.4-8.2); Troponin I < 50 ng/L (<or=60)
[2022-08-15 01:26] LABS: ETHANOL BLOOD < 3.0 mg/dL (<10)
--- NOTE | 2022-08-15 01:27 | DI.VRAD_ITS ---
PROCEDURE INFORMATION: Exam: CT Head Without Contrast Exam date and time: 08/15/2022 12:58 AM Age: 67 years old Clinical indication: Injury or trauma; Concussion/head injury; Consciousness not specified; Injury details: Fall, thinners, R/O bleed TECHNIQUE: Imaging protocol: Computed tomography of the head without contrast. Radiation optimization: All CT scans at this facility use at least one of these dose optimization techniques: automated exposure control; mA and/or kV adjustment per patient size (includes targeted exams where dose is matched to clinical indication); or iterative reconstruction. COMPARISON: CT HEAD WO 07/10/2022 4:19 PM FINDINGS: Brain: No acute intracranial hemorrhage or infarct is identified. No mass effect. There is no midline shift. 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 Cerebral ventricles: No ventriculomegaly. Paranasal sinuses: There is soft tissue opacification of some of the ethmoid air cells bilaterally, but improved when compared to the previous study. Mucoperiosteal thickening is seen involving the frontal sinus, less prominent than on the previous study. Mastoid air cells: The right mastoid sinuses are hypoplastic. Dental: The patient is edentulous. Bones/joints: Unremarkable. No acute fracture. Soft tissues: Unremarkable. Vasculature: There are calcifications of the vertebral arteries. IMPRESSION: 1. 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 2. Chronic sinusitis. 3. No acute intracranial hemorrhage or infarct. PROCEDURE INFORMATION: Exam: CT Cervical Spine Without Contrast Exam date and time: 08/15/2022 12:58 AM Age: 67 years old Clinical indication: Injury or trauma; Concussion/head injury; Consciousness not specified; Injury details: Fall, thinners, R/O bleed TECHNIQUE: Imaging protocol: Computed tomography of the cervical spine without contrast. Radiation optimization: All CT scans at this facility use at least one of these dose optimization techniques: automated exposure control; mA and/or kV adjustment per patient size (includes targeted exams where dose is matched to clinical indication); or iterative reconstruction. COMPARISON: CT BRAIN NECK CTA 08/16/2021 4:04 AM FINDINGS: Bones/joints: There are degenerative changes of multiple articular facets bilaterally. There is ankylosis of the articular facets bilaterally at C3-C4. There is narrowing and partial fusion of the intervertebral disc space at C3-C4. There is narrowing of the intervertebral disc spaces at C5-C6-C7. The patient is status post laminectomies involving C4, C5, and C6. There is partial calcification of the transverse ligament at C1. Cyst is seen at the level of C3. There is approximately 4.5 mm anterior malalignment of C4 in relationship to C5. There is bony impingement on the right neural foramen at C2-C3 and bilaterally at C3-C4 -5 -6 -7. There are no acute wedge compression fracture deformities. Lungs: Lung apices are normal. Vasculature: There are calcifications of the vertebral arteries. Carotid artery calcifications are noted. Soft tissues: Unremarkable. IMPRESSION: 1. No acute fracture. 2. Status post laminectomies involving C 4, C5, and C6. 3. Vertebral body malalignment at C4-C5, probably degenerative in nature. 4. Degenerative changes of the cervical spine, as described above. Dictated and Authenticated by: Amando Hernandez MD. Ordering:DON Leach MD
--- NOTE | 2022-08-15 01:30 | DI.CT_ITS ---
Exam(s) CT BRAIN NECK CTA EXAM: CT BRAIN NECK CTA CLINICAL HISTORY: left sided weakness, r/o stroke. TECHNIQUE: Imaging Protocol: Axial CT angiography was performed with multi-slice acquisition and mu lti-planar and/or 3D reconstructions. CONTRAST MATERIAL: Intravenous: Omnipaque 350 contrast volume:100 mL COMPARISON: CT CT CHEST PE CTA from 07/10/2022 FINDINGS: CT Head W/O and W: Ventricles and Extra axial spaces: Normal in size and morphology for the patient's age. Hemorrhage: None. Cerebral parenchyma: No acute territorial infarct. There is an old left temporal infarct. Midline shift: None. Brainstem/Cerebellum: Normal. Calvarium: Normal. Visualized Paranasal sinuses/Mastoids: Mild sinusitis. Soft Tissues: Unremarkable. Enhancement: Unremarkable. CTA Neck W: Common Carotid: Right: No dissection, occlusion or significant stenosis. Left: No dissection, occlusion or significant stenosis. External Carotid: Right: No occlusion or significant stenosis. Left: No occlusion or significant stenosis. Internal Carotid: Right: No dissection, occlusion or significant stenosis. Mild atherosclerosis at the origin. Left: No dissection, occlusion or significant stenosis. Mild atherosclerosis at the origin. Vertebral Artery: Right: No dissection, occlusion or significant stenosis. Left: No dissection, occlusion or significant stenosis. Mild atherosclerosis distally. Lung Apices: Normal. Bones: Within normal limits for the patient's age. Soft Tissues: Normal. Thyroid gland: Unremarkable. CTA Brain W: Internal Carotid Arteries: Normal. Anterior Cerebral Arteries: Right: No aneurysm, occlusion or significant stenosis. Left: No aneurysm, occlusion or significant stenosis. Middle Cerebral Arteries: Right: No aneurysm, occlusion or significant stenosis. Left: No aneurysm, occlusion or significant stenosis. Posterior Cerebral Arteries: Right: No aneurysm, occlusion or significant stenosis. Left: No aneurysm, occlusion or significant stenosis. Vertebral Arteries: Right: No aneurysm, occlusion or significant stenosis. Left: No aneurysm, occlusion or significant stenosis. Basilar Artery: No aneurysm, occlusion or significant stenosis. IMPRESSION: 1. No large vessel occlusion or significant stenosis on the CT angiography of the head. 2. No acute intracranial process. 3. No occlusion or significant stenosis on the CT angiography of the neck. RADIATION DOSE DELIVERED: 1,222.55mGy.cm Total DLP DATA REPOSITORY: All CT scans at this facility are submitted to the National Radiology Data Registry (NRDR) Dose Index Registry (DIR) with the [employer] (ACR). RADIATION OPTIMIZATION: All CT scans at this facility use at least one of these dose optimization te chniques: automated exposure control; mA and/or kV adjustment per patient size (includes targeted exa ms where dose is matched to clinical indication); or iterative reconstruction.
--- OUTSIDE RECORDS SUMMARY | 2022-08-15 01:33 | XMS_ITS | Encounter Summary ---
:1955 Author Organization [facility] [place] [address] Care Team Providers Name Role Phone Aissatou Briggs APRN Primary Care Provider Encounter Details Date Type Department Care Team Description 09/04/2021 Ancillary Procedure Radiology Library at Aissatou Briggs, [facility] [address] [place] [phone] (Wo rk) Social History Tobacco Use Types Packs/Day Years Used Date Former Smoker Cigarettes Quit: 05/14/20 08 Smokeless Tobacco: Never Used Alcohol Use Standard Drinks/Week Comments No 0 (1 standard drink = 0.6 oz pure alcoho l) Sex Assigned at Date Recorded Not on file documented as of this encounter Plan of Treatment Upcoming Encounters Date Type Specialty Care Team Description 09/04/2022 Ancillary Procedure Radiology Aissatou Briggs, [facility] eber (D-SCHED ERROR MARKET RESEARCHER / CORRECTION ) [address] [place], [place] [id number] (Wo rk) documented as of this encounter Procedures Procedure Name Priority Date/Time Associated Diagnosis Comme nts FILM LIBRARY Routine 09/04/2021 12:05 AM Results for this STORAGE ONLY DX EDT procedure ar e in ANKLE the results section. documented in this encounter Results Film Library- Storage Only DX Ankle (09/04/2021 12:05 AM EDT) Specimen (Source) Anatomical Location Collection Method / Collectio n Time Received Time / Laterality Volume Narrative RAD - 03/24/2022 8:45 PM EDT This exam is auto-finalizing. It's purpo se is for storage only. Aissatou Briggs APRN IMG FILM LIBRARY ORDERABLES Performing Organization Address City/State/ZIP Code Phon e Number [place], [place] documented in this encounter Visit Diagnoses Not on filedocumented in this encounter Care Teams Student Loan Counselor Relationship Specialty Start Date End Date Aissatou Briggs APRN PCP - General Internal Medicine 07/29/[address] [place] [address] documented as of this encounter
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
--- OUTSIDE RECORDS SUMMARY | 2022-08-15 01:33 | XMS_ITS | Encounter Summary ---
:1955 Author Organization [facility] [place] [address] Care Team Providers Name Role Phone Aisstaou Briggs APRN Primary Care Provider Encounter Details Date Type Department Care Team Description 09/05/2021 Ancillary Procedure Radiology Library at Aissatou Briggs, [facility] [place] SENIOR PUBLICATIONS SPECIALIST [facility] [address] [place] [phone] (Wo rk) Social History Tobacco Use Types [...] Description 09/04/2022 Ancillary Procedure Radiology Aissatou Briggs, [facility] eber (D-SCHED ERROR SENIOR PUBLICATIONS SPECIALIST / CORRECTION ) [address] [place], [place] [address] (Wo rk) documented as of this encounter Procedures Procedure Name Priority Date/Time Associated Diagnosis Comme nts FILM LIBRARY Routine 09/05/2021 12:00 AM Results for this STORAGE ONLY DX EDT procedure ar e in ANKLE the results section. documented in this encounter Results Film Library- Storage Only DX Ankle (09/05/2021 12:00 AM EDT) Specimen (Source) Anatomical Location Collection Method / Collectio n Time Received Time / Laterality Volume Narrative RAD - 03/24/2022 8:47 PM EDT This exam is auto-finalizing. It's purpo se is for storage only. Aissatou Briggs APRN IMG FILM LIBRARY ORDERABLES Performing Organization Address City/State/ZIP Code Phon e Number [place], [place] documented in this encounter Visit Diagnoses Not on filedocumented in this encounter Care Teams Education Specialist Relationship Specialty Start Date End Date Aissatou Briggs APRN PCP - General Internal Medicine 07/29/[address] [place] [address] documented as of this encounter
--- OUTSIDE RECORDS SUMMARY | 2022-08-15 01:33 | XMS_ITS | Encounter Summary ---
:1955 Author Organization [place] [address] Care Team Providers Name Role Phone Aissatou Briggs APRN Primary Care Provider Encounter Details Date Type Department Care Team Description 04/10/2020 Hospital Encounter Mobile Asha Felix f Natalie rogel MD unspecified type [facility] [address] [place] [address] [id number] Social History Tobacco Use Types Packs/Day Years Used Date Former Smoker Cigarettes Quit: 05/14/20 08 Smokeless Tobacco: Never Used Alcohol Use Standard Drinks/Week Comments No 0 (1 standard drink = 0.6 oz pure alcoho l) Sex Assigned at Date Recorded Not on file documented as of this encounter Medications at Time of Discharge Medication Sig Dispensed Refills Start Date End Date apixaban (Eliquis) 5 mg Take 5 mg by mouth 2 0 Tablet times daily. pantoprazole (PROTONIX) Take 40 mg by mouth 0 40 mg Tablet, Delayed daily. Release (E.C.) triamcinolone (KENALOG) apply to the itchy 80 g 0 07/03 0.1 % Cream areas on the arms and trunk BID lamoTRIgine (LAMICTAL) Take 100 mg by mouth 0 100 mg Tablet 2 times daily. NITROSTAT 0.4 mg Tablet, Place 0.4 mg under 0 Sublingual the tongue every 5 minutes as needed. Reported on 12/08/2016 lisinopril Take 1 tablet by 90 tablet 3 01/15/2016 (PRINIVIL;ZESTRIL) 5 mg mouth daily. TabletIndications: Cardiomyopathy, ischemic fluticasone (FLONASE) 50 1 spray by Nasal 0 mcg/actuation nasal spray route as needed. clopidogrel (PLAVIX) 75 Take 75 mg by mouth 0 04/14/2022 mg Tablet daily. metoprolol tartrate Take 25 mg by mouth 0 04/14/2022 (LOPRESSOR) 25 mg Tablet daily. fentaNYL (DURAGESIC) 50 Place 1 patch onto 0 04/14/2022 mcg/hr Patch 72 hr the skin every 72 hours. acetaminophen (TYLENOL) Take 2 tablets by 30 tablet 1 10/1504/14/2022 325 mg Tablet mouth every 4 hours as needed for Pain (mild pain). gabapentin (NEURONTIN) Take 600 mg by mouth 0 04/14/2022 300 mg Capsule 4 times daily. atorvastatin (LIPITOR) 80 Take 1 tablet by 90 tablet 3 12/3004/14/2022 mg TabletIndications: mouth daily. Cardiomyopathy, ischemic Levalbuterol Tartrate Inhale 1-2 puffs 0 04/14/2022 (XOPENEX HFA) 45 into the lungs every mcg/actuation inhaler 4 hours as needed. traZODone (DESYREL) 100 Take 200 mg by mouth 0 04/14/2022 mg tablet nightly. documented as of this encounter Plan of Treatment Upcoming Encounters Date Type Specialty Care Team Description 09/04/2022 Ancillary Procedure Radiology Aissatou Briggs [facility] (D-SCHED ERROR [employer] SYSTEMS ENGINEER / CORRECTION ) [address] [place] [address] (Wo rk) documented as of this encounter Procedures Procedure Name Priority Date/Time Associated Comments Diagnosis ECHOCARDIOGRAM COMPLETE Routine 04/10/2020 1:21 Atrial flutter , Results for this PM EDT unspecified type procedure a re in the results section. documented in this encounter Results ECHOCARDIOGRAM COMPLETE (04/10/2020 1:21 PM EDT) P athologist Signature EF 35 HEARTLAB SYSTEM Anatomical Region Laterality Modality Other Specimen (Source) Anatomical Location Collection Method / Collectio n Time Received Time / Laterality Volume 04/10/2020 Narrative 04/10/2020 1:39 PM EDT Procedure: ?Transthoracic Echocardiogram Patient: ?JUANA Mendosa . . ?? (Age): 1955(64y) Med Rec#: ? [id number] ?Sex: ?M ? Site Loc: ? [facility] [place] ??H t / Wt: ??162.56(cm)/60.7 Pt. Loc: ?Adult Floor ? BSA: ?1.65 Study Date: ?? 04/10/2020 ?Pt. Type: Inpatient Tape: ? Referring: ADELAIDA (ER) Referring: OMAR Referring: ADELAIDA(Med Rec) Referring: ADELAIDA (Diag Imaging) Reading: Miguel Jarrett ([id number]) Model Maker: REGAN Model Maker: REGAN Diagnosis: *Typical atrial flutter (I48.3) BP: ? SUMMARY: 1. The left ventricular chamber size is normal. Left ventricular wall thickness is normal. There are left vent ricular segmental wall motion abnormalities present, as shown in the d iagram below. ??Global left ventricular systolic function is moderat berna reduced. ??Ejection fraction is estimated to be 35%. 2. Right ventricular chamber size, wall thickness, and systolic function are within normal limits. 3. The left atrium is mildly dilated. Th e right atrium is mildly dilated. 4. Mild (1+/4+) aortic valve regurgitati on is present. There is mild (1+/4+) tricuspid regurgitation present. 5. The estimated pulmonary artery systol ic pressure is 22 mmHg. 6. The patient is in atrial fib or flutt er with rates of 107-127 bpm. 7. See remainder of report for additiona l findings. Findings ? : Left Ventricle: ? The left ventricul ar chamber size is normal. ?Left ventricular wall thickness is normal. ?There is no evidence of LVOT obstr uction. ?Global left ventricular systolic f unction is moderately reduced. Ejection fraction is estimated to be 35% . ?There are left ventricular segment al wall motion abnormalities present, as shown in the diagram below. ?The ??basal anteroseptal, basal an terolateral, basal inferoseptal, mid anteroseptal, mid anterolateral, mid inferoseptal, apical septal, apical anterior, apical lateral, and ??a pical inferior wall segments are hypokinetic (score 2). ?The ??basal inferolateral, basal i nferior, mid inferolateral, and mid inferior wall segments are akinetic (score 3). ?Overall wallmotion score index is ??2.13 Left Atrium: ? The left atrium is mi ldly dilated. ?No atrial septal defect is visuali zed. Right Ventricle: ? Right ventricular chamber size, wall thickness, and systolic function are within normal limi ts. ?The estimated pulmonary artery sys tolic pressure is 22 mmHg. ?The estimated right atrial pressur e is 3 mmHg. Right Atrium: ? The right atrium is mildly dilated. Aortic Valve: ? The aortic valve is tricuspid. ?The aortic valve leaflets are mild ly thickened. ?Systolic excursion of the aortic v alve is normal. ?There is no evidence of aortic kaiden ve stenosis. ?Mild (1+/4+) aortic valve regurgit ation is present. Mitral Valve: ? The mitral valve shameka flets are mildly thickened. ?There is mitral annular calcificat ion. ?There is no evidence of mitral yvonne nosis. ?There is trace mitral regurgitatio n present. Tricuspid Valve: ? The tricuspid kaiden ve leaflets are morphologically normal. ?There is mild (1+/4+) tricuspid re gurgitation present. Pulmonic Valve: ? The pulmonic valve appears normal in structure and function. ?There is trace pulmonic regurgitat ion present. Pericardium: ? The pericardium appea rs normal and there is no evidence of a pericardial effusion. Aorta: ? The ascending aorta is norm al in size. Pulmonary Artery: ? The main pulmona ry artery appears normal. Venous: ? The inferior vena cava сергей ears normal in size. ?There is a greater than 50% respir atory change in the inferior vena cava dimension. Misc: ? Two-dimensional echo, spectr al Doppler and color Doppler performed. Chambers 2D ?Value ?Units (Range) ? IVSd (2D) ? 0.77 ? cm ? LVPWd (2D) ?0.74 ? cm ? IVS:LVPW ratio (2D) 1.03 ? ratio ? LVIDd (2D) ?4.74 ? cm ? LVIDs (2D) ?3.73 ? cm ? LV FS (2D) ?21.29 ?% ? EF Teichholz (2D) ?? 43.21 ?% ? Ascending Ao ?2.99 ? cm (2 - 3.5) ? Volumes/Mass ?Value ?Units (Range) ? LA ESV BP (A/L) inde30.16 ? ml/m2 ? LV ESV SP 4CH (MOD) 35.7 ? ml ? LV ESV SP 2CH (MOD) 55.75 ? ml ? LV EDV BP ? 74.08 ?ml ? LV ESV BP ? 47.64 ?ml ? BP EF (MOD) ? 35.69 ?% ? Diastolic/Systolic Function ?Value ?Units (Range) ? MV E-wave Vmax ?0.76 ? m/sec ? MV deceleration qkxs133.18 ? m sec ? Aortic Valve ?Value ?Units (Range) ? AV Vmax ? 1.14 ? m/sec ? AV VTI ?15.82 ?cm ? AV peak gradient ?5.21 ? mmHg ? AV mean gradient ?2.31 ? mmHg ? LVOT diameter ? 2.08 ? cm ? LVOT Vmax ? 0.88 ? m/sec ? LVOT VTI ?14.07 ?cm ? CO LVOT ? 5.9 ?l/min ? ARIELA (continuity Vmax2.62 ? cm2 ? ARIELA (continuity Vmax1.59 ? cm2/m2 ? ARIELA (continuity VTI)1.82 ? cm2/m2 ? AR PHT ?1004.15 ?msec ? Mitral Valve ?Value ?Units (Range) ? MV PHT ?43.26 ?msec ? MVA (PHT) ? 5.09 ? cm2 ? Tricuspid Valve ?Value ?Units (Range) ? TR Vmax ? 2.15 ? m/sec ? TR peak gradient ?18.51 ?mmHg ? RAP ? 3 ?mmHg ? RVSP ?22 ? mmHg ? Pulmonic Valve/Qp:Qs ?Value ?Units (Range) ? PV Vmax ? 0.71 ? m/sec ? PV VTI ?10.63 ?cm ? PV peak gradient ?2.02 ? mmHg ? PV mean gradient ?0.92 ? mmHg ? RVOT Vmax ? 0.51 ? m/sec ? RVOT VTI ?9.49 ? cm ? RVOT peak gradient ??1.05 ? mmHg ? PV acceleration time42.82 ? msec ? PV ejection time ?240.35 ? msec ? PV AT:ET ?0.18 ? ratio ? Wall Motion: Segment Name ?Rest ? Base-Anteroseptal ?? Hypokinetic ? Base-Anterior ? Normal ? Base-Anterolateral ??Hypokinetic ? Base-Posterolateral Akinetic ? Base-Inferior ? Akinetic ? Base-Inferoseptal ?? Hypokinetic ? Mid-Anteroseptal ?Hypokinetic ? Mid-Anterior ?Normal ? Mid-Anterolateral ?? Hypokinetic ? Mid-Posterolateral ??Akinetic ? Mid-Inferior ?Akinetic ? Mid-Inferoseptal ?Hypokinetic ? [place]-Septal ? Hypokinetic ? [place]-Anterior ? Hypokinetic ? [place]-Lateral ?Hypokinetic ? [place]-Inferior ? Hypokinetic ? [place]-Tip ?Hypokinetic ? This report has been electronically sign ed by: _ Miguel Jarrett MD ? 04/10/2020 13 :39:00 Images reviewed and interpretation verif ied [facility] Cardiac Ultrasound Laboratory Procedure Note Miguel Jarrett MD - 04/10/2020Formatt ing of this note might be different from the original. Procedure: Transthoracic Echocardiogram Patient: JUANA Edwards . (Age): 1955(64y) Med Rec#: [id number] Sex: M Site Loc: [facility] Ht / Wt: 162.56(cm)/60.7 Pt. Loc: Adult Floor BSA: 1.65 Study Date: 04/10/2020 Pt. Type: Inpatie nt Tape: Referring: [facility] (ER) Referring: OMAR Referring: [facility](Med Rec) Referring: ADELAIDA (Diag Imaging) Reading: Miguel Jarrett ([id number]) Model Maker: REGAN Model Maker: REGAN Diagnosis: *Typical atrial flutter (I48.3) BP: 112/65 SUMMARY: 1. The left ventricular chamber size is normal. Left ventricular wall thickness is normal. There are left vent ricular segmental wall motion abnormalities present, as shown in the d iagram below. Global left ventricular systolic function is moderat berna reduced. Ejection fraction is estimated to be 35%. 2. Right ventricular chamber size, wall thickness, and systolic function are within normal limits. 3. The left atrium is mildly dilated. Th e right atrium is mildly dilated. 4. Mild (1+/4+) aortic valve regurgitati on is present. There is mild (1+/4+) tricuspid regurgitation present. 5. The estimated pulmonary artery systol ic pressure is 22 mmHg. 6. The patient is in atrial fib or flutt er with rates of 107-127 bpm. 7. See remainder of report for additiona l findings. Findings : Left Ventricle: The left ventricular camille mber size is normal. Left ventricular wall thickness is norm al. There is no evidence of LVOT obstructio n. Global left ventricular systolic functi on is moderately reduced. Ejection fraction is estimated to be 35% . There are left ventricular segmental wa ll motion abnormalities present, as shown in the diagram below. The basal anteroseptal, basal anterolat eral, basal inferoseptal, mid anteroseptal, mid anterolateral, mid inferoseptal, apical septal, apical anterior, apical lateral, and api lavinia inferior wall segments are hypokinetic (score 2). The basal inferolateral, basal inferior , mid inferolateral, and mid inferior wall segments are akinetic (score 3). Overall wallmotion score index is 2.13 Left Atrium: The left atrium is mildly d ilated. No atrial septal defect is visualized. Right Ventricle: Right ventricular chamb er size, wall thickness, and systolic function are within normal limi ts. The estimated pulmonary artery systolic pressure is 22 mmHg. The estimated right atrial pressure is 3 mmHg. Right Atrium: The right atrium is mildly dilated. Aortic Valve: The aortic valve is tricus pid. The aortic valve leaflets are mildly th ickened. Systolic excursion of the aortic valve is normal. There is no evidence of aortic valve st enosis. Mild (1+/4+) aortic valve regurgitation is present. Mitral Valve: The mitral valve leaflets are mildly thickened. There is mitral annular calcification. There is no evidence of mitral stenosis . There is trace mitral regurgitation pre sent. Tricuspid Valve: The tricuspid valve shameka flets are morphologically normal. There is mild (1+/4+) tricuspid regurgi tation present. Pulmonic Valve: The pulmonic valve appea rs normal in structure and function. There is trace pulmonic regurgitation p resent. Pericardium: The pericardium appears nor mal and there is no evidence of a pericardial effusion. Aorta: The ascending aorta is normal in size. Pulmonary Artery: The main pulmonary art hunter appears normal. Venous: The inferior vena cava appears n ormal in size. There is a greater than 50% respiratory change in the inferior vena cava dimension. Misc: Two-dimensional echo, spectral Dop pler and color Doppler performed. Chambers 2D Value Units (Range) IVSd (2D) 0.77 cm LVPWd (2D) 0.74 cm IVS:LVPW ratio (2D) 1.03 ratio LVIDd (2D) 4.74 cm LVIDs (2D) 3.73 cm LV FS (2D) 21.29 % EF Teichholz (2D) 43.21 % Ascending Ao 2.99 cm (2 - 3.5) Volumes/Mass Value Units (Range) LA ESV BP (A/L) inde30.16 ml/m2 LV ESV SP 4CH (MOD) 35.7 ml LV ESV SP 2CH (MOD) 55.75 ml LV EDV BP 74.08 ml LV ESV BP 47.64 ml BP EF (MOD) 35.69 % Diastolic/Systolic Function Value Units (Range) MV E-wave Vmax 0.76 m/sec MV deceleration ucbb331.18 msec Aortic Valve Value Units (Range) AV Vmax 1.14 m/sec AV VTI 15.82 cm AV peak gradient 5.21 mmHg AV mean gradient 2.31 mmHg LVOT diameter 2.08 cm LVOT Vmax 0.88 m/sec LVOT VTI 14.07 cm CO LVOT 5.9 l/min ARIELA (continuity Vmax2.62 cm2 ARIELA (continuity Vmax1.59 cm2/m2 ARIELA (continuity VTI)1.82 cm2/m2 AR PHT 1004.15 msec Mitral Valve Value Units (Range) MV PHT 43.26 msec MVA (PHT) 5.09 cm2 Tricuspid Valve Value Units (Range) TR Vmax 2.15 m/sec TR peak gradient 18.51 mmHg RAP 3 mmHg RVSP 22 mmHg Pulmonic Valve/Qp:Qs Value Units (Range) PV Vmax 0.71 m/sec PV VTI 10.63 cm PV peak gradient 2.02 mmHg PV mean gradient 0.92 mmHg RVOT Vmax 0.51 m/sec RVOT VTI 9.49 cm RVOT peak gradient 1.05 mmHg PV acceleration time42.82 msec PV ejection time 240.35 msec PV AT:ET 0.18 ratio Wall Motion: Segment Name Rest Base-Anteroseptal Hypokinetic Base-Anterior Normal Base-Anterolateral Hypokinetic Base-Posterolateral Akinetic Base-Inferior Akinetic Base-Inferoseptal Hypokinetic Mid-Anteroseptal Hypokinetic Mid-Anterior Normal Mid-Anterolateral Hypokinetic Mid-Posterolateral Akinetic Mid-Inferior Akinetic Mid-Inferoseptal Hypokinetic [place]-Septal Hypokinetic [place]-Anterior Hypokinetic [place]-Lateral Hypokinetic [place]-Inferior Hypokinetic [place]-Tip Hypokinetic This report has been electronically sign ed by: _ Miguel Jarrett MD 04/10/2020 13:39:00 Images reviewed and interpretation verif ied [facility] Cardiac Ultrasound Laboratory Asha Felix MD ECHO ORDERABLES documented in this encounter Visit Diagnoses Diagnosis Atrial flutter, unspecified type documented in this encounter Care Teams Emergency Services Professional Relationship Specialty Start Date End Date Aissatou Briggs APRN PCP - General Internal Medicine 07/29/16 [facility] [address] [place] [address] documented as of this encounter
--- OUTSIDE RECORDS SUMMARY | 2022-08-15 01:33 | XMS_ITS | Encounter Summary ---
:1955 Author Organization [facility] [place] [address] Care Team Providers Name Role Phone Aissatou Briggs APRN Primary Care Provider Encounter Details Date Type Department Care Team Description 09/10/2021 Ancillary Procedure Radiology Library at Aissatou Briggs, [facility] INSURANCE VERIFICATION CLERK [facility] [address] [place] [phone] (Wo rk) Social History Tobacco Use Types [...] Description 09/04/2022 Ancillary Procedure Radiology Aissatou Briggs, [facility] eled (D-SCHED ERROR INSURANCE VERIFICATION CLERK / CORRECTION ) [address] [place], [place] [address] (Wo rk) documented as of this encounter Procedures Procedure Name Priority Date/Time Associated Diagnosis Comme nts FILM LIBRARY Routine 09/10/2021 12:00 AM Results for this STORAGE ONLY DX EST procedure ar e in ANKLE the results section. documented in this encounter Results Film Library- Storage Only DX Ankle (09/10/2021 12:00 AM EST) Specimen (Source) Anatomical Location Collection Method / Collectio n Time Received Time / Laterality Volume Narrative RAD - 03/24/2022 8:49 PM EDT This exam is auto-finalizing. It's purpo se is for storage only. Aissatou Briggs APRN IMG FILM LIBRARY ORDERABLES Performing Organization Address City/State/ZIP Code Phon e Number [place], [place] documented in this encounter Visit Diagnoses Not on filedocumented in this encounter Care Teams Stage Set Up Worker Relationship Specialty Start Date End Date Aissatou Briggs APRN PCP - General Internal Medicine 07/29/[address] [place] [address] documented as of this encounter
--- OUTSIDE RECORDS SUMMARY | 2022-08-15 01:33 | XMS_ITS | Encounter Summary ---
:1955 Author Organization [facility] [place] [address] Care Team Providers Name Role Phone Aissatou Briggs APRN Primary Care Provider Encounter Details Date Type Department Care Team Description 10/15/2021 Ancillary Procedure Radiology Library at Aissatou Briggs, [facility] FREIGHT SEPARATOR [facility] [address] [place] [phone] (Wo rk) Social History Tobacco Use Types [...] Description 09/04/2022 Ancillary Procedure Radiology Aissatou Briggs, [facility] eled (D-SCHED ERROR FREIGHT SEPARATOR / CORRECTION ) [address] [place], [place] [address] (Wo rk) documented as of this encounter Procedures Procedure Name Priority Date/Time Associated Diagnosis Comme nts FILM LIBRARY Routine 10/15/2021 12:00 AM Results for this STORAGE ONLY DX EST procedure ar e in ANKLE the results section. documented in this encounter Results Film Library- Storage Only DX Ankle (10/15/2021 12:00 AM EST) Specimen (Source) Anatomical Location Collection Method / Collectio n Time Received Time / Laterality Volume Narrative RAD - 03/24/2022 8:54 PM EDT This exam is auto-finalizing. It's purpo se is for storage only. Aissatou Briggs APRN IMG FILM LIBRARY ORDERABLES Performing Organization Address City/State/ZIP Code Phon e Number [place], [place] documented in this encounter Visit Diagnoses Not on filedocumented in this encounter Care Teams Emergency Room Orderly Relationship Specialty Start Date End Date Aissatou Briggs APRN PCP - General Internal Medicine 07/29/[address] [place] [address] documented as of this encounter
--- OUTSIDE RECORDS SUMMARY | 2022-08-15 01:33 | XMS_ITS | Encounter Summary ---
:1955 Author Organization [facility] [place] [address] Care Team Providers Name Role Phone Aissatou Briggs APRN Primary Care Provider Encounter Details Date Type Department Care Team Description 11/19/2021 Ancillary Procedure Radiology Library at Aissatou Briggs, [facility] MACHINE FILLER [facility] [address] [place] [phone] (Wo rk) Social History Tobacco Use Types [...] Description 09/04/2022 Ancillary Procedure Radiology Aissatou Briggs, [facility] eled (D-SCHED ERROR MACHINE FILLER / CORRECTION ) [address] [place], [place] [address] (Wo rk) documented as of this encounter Procedures Procedure Name Priority Date/Time Associated Diagnosis Comme nts FILM LIBRARY Routine 11/19/2021 12:00 AM Results for this STORAGE ONLY DX EST procedure ar e in ANKLE the results section. documented in this encounter Results Film Library- Storage Only DX Ankle (11/19/2021 12:00 AM EST) Specimen (Source) Anatomical Location Collection Method / Collectio n Time Received Time / Laterality Volume Narrative RAD - 03/24/2022 8:56 PM EDT This exam is auto-finalizing. It's purpo se is for storage only. Aissatou Briggs APRN IMG FILM LIBRARY ORDERABLES Performing Organization Address City/State/ZIP Code Phon e Number [place], [place] documented in this encounter Visit Diagnoses Not on filedocumented in this encounter Care Teams Fluid Jet Cutter Operator Relationship Specialty Start Date End Date Aissatou Briggs APRN PCP - General Internal Medicine 07/29/[address] [place] [address] documented as of this encounter
--- OUTSIDE RECORDS SUMMARY | 2022-08-15 01:33 | XMS_ITS | Encounter Summary ---
:1955 Author Organization [facility] [place] [address] Care Team Providers Name Role Phone Aissatou Briggs APRN Primary Care Provider Reason for Referral Consultation (Routine) - Closed Specialty Diagnoses / Procedures Referred By Contact Refer red To Contact Psychiatry Diagnoses Closed fracture of right ankle, sequela Right ankle pain, unspecified chronicity Crack cocaine use Zay Chambers APRN [facility] [address] [facility] ORTHOPAEDIC SURGERY [address] [place] [id number] [place] [phone] Fax: Referral ID Status Reason Start Date Expiration Date Visits V isits Requested Authorized [id number] Closed Consult, 04/14/2022 04/14/2023 1 1 Test & Treat Consultation (Routine) - Closed Specialty Diagnoses / Procedures Referred By Contact Refer red To Contact [facility] Diagnoses Closed fracture of right ankle, sequela Right ankle pain, unspecified chronicity Crack cocaine use *06/09 Msg sent to AIRCRAFT STRUCTURAL REPAIRER* Zay Chambers, [facility] Pain And BOTTOMER OPERATOR Spine [facility] enter [address]oval [place] [phone] Fax: Referral ID Status Reason Start Date Expiration Date Visits V isits Requested Authorized [id number] Closed Consult, 04/14/2022 04/14/2023 1 1 Test & Treat Reason for Visit Reason Comments Establish Care R ankle malunion - Doi 09/04 BHUMIKA 09/05/2022 Consultation (Urgent) - Authorized Specialty Diagnoses / Procedures Referred By Contact Refer red To Contact Orthopaedics Diagnoses Closed fracture of right ankle with malunion, subsequent encounter CLOSED FX RIGHT ANKLE WITH MALUNION Rahat Muniz MD [facility] 3c [address] [place] [id number] Referral ID Status Reason Start Expiration Visits Visits Date Date Requested Authorized [id number] Authorized Consult, 03/28/2022 03/28/2023 6 6 Test & Treat PCP Updated and/or Approved Encounter Details Date Type Department Care Team Description 04/14/2022 Office Visit Orthopaedics at [facility] Pavel Smith MD Closed fracture of right ankle, sequela (Primary Dx); [facility] ank le pain, unspecified chronicity; [facility] [place] [address] ORTHOPAEDIC [phone] SURGERY [place], [place] [address] Social History Tobacco Use Types Packs/Day Years Used Date Former Smoker Cigarettes Quit: 05/14/20 08 Smokeless Tobacco: Never Used Alcohol Use Standard Drinks/Week Comments No 0 (1 standard drink = 0.6 oz pure alcoho l) Sex Assigned at Date Recorded Not on file documented as of this encounter Last Filed Vital Signs Vital Sign Reading Time Taken Comments Blood Pressure 119/85 04/14/2022 11:46 AM EDT Pulse 79 04/14/2022 11:46 AM EDT Temperature - - Respiratory Rate - - Oxygen Saturation - - Inhaled Oxygen Concentration - - Weight - - Height - - Body Mass Index - - documented in this encounter Progress Notes Zay Chambers, BOTTOMER OPERATOR - 04/14/2022 11:00 AM EDT PATIENT NAME: Miguel Pérez AGE: 66 y.o. MR#: [id number] DATE OF VISIT: 04/14/2022 CHIEF COMPLAINT: ankle pain HISTORY OF PRESENT ILLNESS: Mr. Pérez is a 66 y.o. male who comes into clinic today for evaluationof the RIGHT ankle pain. He reports that he had a accident in September. In that accident he sustained the ankle fracture. He was seen at [facility] and was sedated, closed reduced and casted. He was is unsure how long he was in the cast for. Daughter is here today and she is unsure how long he was in the cast. Sometime in November she became involved and he had his boot. He followed up with [facility] and noted the medial mallelous was fractured and not healing. They referred him here. He has been in the boot the whole time. In the boot he is able to bear some weight. Smoking crack cocaine, smokes every day. He has been doing this for 8 months since after his accident. He denies any other drugs prior to the accident. He says that he started doing this because of thepain and stupidity. He doesn't feel that it helps the pain. He is smoking about 3 grams or $300 worth per day. He has pain in the lateral aspect and medial aspect of the ankle. He uses gold sewell lotion on it sometimes. He is not taking any tylenol or ibuprofen. He has lots of trash coming through his house. These people looking for drugs. He says that there is one lady who stays there with him that is helpful. He denies being a dealer. He doesn't think he got gabapentin. He was taking Tramadol immediately after surgery. At that time he was not using recreational drugs. Past medical history: Patient Active Problem List Diagnosis Date Noted ??? Chest pain 08/29/2019 ??? Seizure 08/28/2019 ??? Postoperative ileus 10/15/2016 ??? Cervical spondylosis 10/12/2016 ??? Unstable angina 09/17/2016 ??? Cervical stenosis of spinal canal 09/01/2016 ??? Testicle pain ??? ST elevation myocardial infarction (STEMI) of inferolateral wall, subsequent episode of care 04/29/2011 ??? CAD (coronary artery disease) 04/15/2011 ??? Epilepsy 04/15/2011 ??? Memory loss 04/15/2011 ??? TBI (traumatic brain injury) 04/15/2011 ??? Depression 04/15/2011 ??? GERD (gastroesophageal reflux disease) 04/15/2011 ??? Allergic rhinitis 04/15/2011 ??? Left-sided muscle weakness 04/15/2011 ??? Facial droop 04/15/2011 Medications: ??? clopidogrel (PLAVIX) 75 mg Tablet ??? apixaban (ELIQUIS) 5 mg Tablet ??? metoprolol tartrate (LOPRESSOR) 25 mg Tablet ??? fentaNYL (DURAGESIC) 50 mcg/hr Patch 72 hr ??? pantoprazole (PROTONIX) 40 mg Tablet, Delayed Release (E.C.) ??? triamcinolone (KENALOG) 0.1 % Cream ??? acetaminophen (TYLENOL) 325 mg Tablet ??? gabapentin (NEURONTIN) 300 mg Capsule ??? lamoTRIgine (LAMICTAL) 100 mg Tablet ??? NITROSTAT 0.4 mg Tablet, Sublingual ??? atorvastatin (LIPITOR) 80 mg Tablet ??? lisinopril (PRINIVIL;ZESTRIL) 5 mg Tablet ??? fluticasone (FLONASE) 50 mcg/actuation nasal spray ??? Levalbuterol Tartrate (XOPENEX HFA) 45 mcg/actuation inhaler ??? traZODone (DESYREL) 100 mg tablet Allergies: Allergies Allergen Reactions ??? Abilify [Aripiprazole] Rash ??? Codeine Nausea And Vomiting and Rash ??? Oxycodone Rash Headache Social history: Social History Tobacco Use ??? Smoking status: Former Smoker Types: Cigarettes Quit date: 05/14/2008 Years since quittin.9 ??? Smokeless tobacco: Never Used Substance Use Topics ??? Alcohol use: No Review of systems: No chest pain or shortness of breath No fevers, night sweats or chills Vital signs: No data found. Physical exam: Mr. Pérez is a 66 y.o. male who is alert and oriented. He is in no acute discomfort and is resting comfortably in the exam room. No use of accessory muscles or retraction. Normal respiratory rate. Exam RIGHT Ankle: Skin: normal Strength: 3/5 PlantarFlexion: 40 (normal 0-45) Dorsiflexion: 0 (normal 0-20) Pronation/ Eversion (in): 25 (normal 0-25) Supination / Inversion (out) 25 (normal 35) anterior drawer: DP pulse +1/Palpable PT pulse +1/palpable RIGHT Foot: Skin: intact Nails: normal Size: normal Toe cascade: normal Foot Position: non weight bearing, normal arch Sensation: intact both proximally and distally Imaging studies: Reviewed xrays from March which showed continued non union of medial malleolus fracture. Assessment and plan:: 66 y.o. year-old male who has non union of a medial malleolus fracture with widening of joint spacein available films. Patient has ? Increased sensitivity of both lateral and medial malleolus with concerns of some underlying CRPS. He has failed conservative management of the fracture. Patient seen by Dr Smith, please see his note for details about plan. Referral to pain and addiction medicine. He wasseen by social work while here in the clinic. This plan was discussed with the patient and they are in agreement. All of the patient's questions were answered. The patient understand to contact us if they have any other questions or concerns. FU: after he is in a stable living situation and he is on a treatment program for his addiction issue. Zay Chambers APRN The above dictation was made with voice recogonition software Pavel Smith MD - 04/14/2022 11:00 AM EDT I saw the patient in conjunction with Chayo Chambers and agree with her assessment and plan. 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 He currently has a active habit of crack cocaine smoking. He is accompanied by his daughter. He has a very difficult social situation where he lives in a house with other drug users. He states that there is Narcan in all of the rooms. His daughter wants to help him, but also has to look out for her own safety. He has hyperalgesia of his right ankle. I think that his right ankle is unlikely to be functional for him, meaning that he will have difficulty weightbearing without significant pain, without operative management. Given his x-rays, which show a lateral shift of his talus, early joint space loss, and nonunion/malunion of his fibula and medial malleolus, I suspect that tibiotalararthrodesis, and potentially tibiotalar calcaneal arthrodesis, would be his most reliable treatment option. I see his barriers to surgery as primarily twofold: He needs treatment for his addiction and to be clean prior to considering surgery. Wrapped up in this is his hyperalgesia, which he needs treatment for prior to considering surgery.. He also needs a stable living situation where he will be safe and could recover from surgery. We will have him meet with our drug abuse social worker, addiction medicine, and pain medicine. If we can make progress on these fronts, we can consider surgery. We did discuss the fact that his drug use poses a very real threat to his life. documented in this encounter Plan of Treatment Upcoming Encounters Date Type Specialty Care Team Description 09/04/2022 Ancillary Procedure Radiology Aissatou Briggs Canc eled (D-SCHED ERROR BOTTOMER OPERATOR / CORRECTION ) [address] [place] [address] (Wo rk) Scheduled Referrals Name Type Priority Associated Diagnoses Order S chedule Referral to Pain Outpatient Referral Routine Closed fracture o f Ordered: Management right ankle, seq uela 04/14/2022 Right ankle pain, unspecified chronicity Crack cocaine use Referral to Outpatient Referral Routine Closed fracture of Or dered: Addiction Treatment right ankle, sequela 04/14/2022 Program Right ankle pain, unspecified chronicity Crack cocaine use documented as of this encounter Results XR Ankle Min 3 views Right (Generic) (04/14/2022 1:15 PM EDT) Anatomical Region Laterality Modality Ankle Right Digital Radiography Specimen (Source) Anatomical Location Collection Method / Collectio n Time Received Time / Laterality Volume Impressions 04/14/2022 2:17 PM EDT RIGHT 1. ??Multiple fractures of indeterminate age, consider supplementary CT characterization if indicated. 2. ??Oblique displaced medial malleolar fracture. The fracture lucencies remain visible. 3. ??Widened medial clear space on morti se view 4. ??Probably Acute displaced fibular fr acture, León B, with visible fracture line 5. ??Irregular posterior tibial plafond may represent age-indeterminate posterior malleolar fracture. Thank you for letting us participate in the care of this patient. ??If you are a health care provider and have any questi ons regarding this report, please contact the number below. ??For patients who have questions please contact the health reservoir caretaker that requested your imaging first. ? Narrative 04/14/2022 2:17 PM EDT EXAMINATION: XR ANKLE MIN 3 VIEWS RIGHT (GENERIC) CLINICAL HISTORY: WEIGHT BEARING ankle films please, , entered by ordering service TECHNIQUE: RIGHT ankle, 3 view[s], weigh tbearing COMPARISON: none FINDINGS: RIGHT Bones * ??Medial malleolus-displaced medial ma lleolar fracture, age indeterminate. The fracture bone ends are sclerotic suggest ing subacute nature. * ??Lateral malleolus-6 mm posterior dis placed oblique fracture of distal fibula, León B. bony projection arising from ti p of lateral malleolus is well-circumscribed resembles any combina tion of old injury and osteophyte formation. * ??Posterior malleolus-irregular tibial plafond at posterior malleoli is is suspicious for hairline fracture althoug h injury. Joints Tibiotalar joint- widened medial clear s pace on mortise view Subtalar joint-normal joint spaces. Soft tissues Mild soft tissue swelling around the ank le joint. Fine Linear ossifications in medial subc utaneous soft tissues superior to the medial malleolus is related to old injur y. Procedure Note Leyla Palacios MD - 04/14/2022Formatt ing of this note might be different from the original. EXAMINATION: XR ANKLE MIN 3 VIEWS RIGHT (GENERIC) CLINICAL HISTORY: WEIGHT BEARING ankle films please, , entered by ordering service TECHNIQUE: RIGHT ankle, 3 view[s], weigh tbearing COMPARISON: none FINDINGS: RIGHT Bones * Medial malleolus-displaced medial mall eolar fracture, age indeterminate. The fracture bone ends are sclerotic suggest ing subacute nature. * Lateral malleolus-6 mm posterior displ aced oblique fracture of distal fibula, León B. bony projection arising from ti p of lateral malleolus is well-circumscribed resembles any combina tion of old injury and osteophyte formation. * Posterior malleolus-irregular tibial p pramod at posterior malleoli is is suspicious for hairline fracture althoug h injury. Joints Tibiotalar joint- widened medial clear s pace on mortise view Subtalar joint-normal joint spaces. Soft tissues Mild soft tissue swelling around the ank le joint. Fine Linear ossifications in medial subc utaneous soft tissues superior to the medial malleolus is related to old injur y. IMPRESSION RIGHT 1. Multiple fractures of indeterminate a ge, consider supplementary CT characterization if indicated. 2. Oblique displaced medial malleolar fr acture. The fracture lucencies remain visible. 3. Widened medial clear space on mortise view 4. Probably Acute displaced fibular frac ture, León B, with visible fracture line 5. Irregular posterior tibial plafond ma y represent age-indeterminate posterior malleolar fracture. Thank you for letting us participate in the care of this patient. If you are a health care provider and have any questi ons regarding this report, please contact the number below. For patients w ho have questions please contact the health reservoir caretaker that requested your imaging first. Electronically signed by: Leyla Palacios MD, [facility] ([phone]), at 04/14/2022 2:17 PM Pavel Smith MD IMG DX ORDERABLES documented in this encounter Visit Diagnoses Diagnosis Closed fracture of right ankle, sequela - Primary Right ankle pain, unspecified chronicity Crack cocaine use Cocaine abuse, unspecified Closed fracture of right ankle, sequela documented in this encounter Care Teams Nike Athlete Relationship Specialty Start Date End Date Aissatou Briggs APRN PCP - General Internal Medicine 07/29/[address] [place] [address] documented as of this encounter
--- OUTSIDE RECORDS SUMMARY | 2022-08-15 01:33 | XMS_ITS | Encounter Summary ---
:1955 Author Organization [facility] [place] [address] Care Team Providers Name Role Phone Aissatou Briggs APRN Primary Care Provider Encounter Details Date Type Department Care Team Description 04/20/2022 Telephone Orthopaedics at [facility] Mary Ayala, [place] [address] Social History Tobacco Use Types Packs/Day Years Used Date Former Smoker Cigarettes Quit: 05/14/20 08 Smokeless Tobacco: Never Used Alcohol Use Standard Drinks/Week Comments No 0 (1 standard drink = 0.6 oz pure alcoho l) Sex Assigned at Date Recorded Not on file documented as of this encounter Miscellaneous Notes Telephone Encounter - Mary Ayala MSW - 04/20/2022 5:33 PM EDT OFFICE OF CARE MANAGEMENT [facility] Met with Mr. Pérez and daughter Jocelyn Pérez [phone] on 04/14/22 in Orthopaedics clinic atthe request of Dr. Smith given concerns for current crack smoking, having people in his home he does not feel safe with. Mr. Pérez is remarkably charming and open. Very devoted to his 3 cats and did give his dog to his daughter who lives a little bit farther away but in a small apartment with 2 dogs so he cannot stay with her. Two other sons are active addicts with no stable housing to offer. Other daughter not reallyin his life. No other family. Readily admits he is in over his head in regards to crack smoking Has been considering going inpatient to [facility] and daughter is very encouraging of this. Does not feel he can realistically stop alone and at home especially with current housemates. He will continue to consider calling [facility]. Primary barrier to substance use and healthcare is his living situation. He and daughter confirm hisgood nature and substance abuse have led him now to have some scary people who he now feels control his home. He does not want to leave his cats. He is afraid of what the people will do to him and spends his days crying and feeling trapped. Reviewed options such as my calling Adult Protective Servicesand he is worried for his safety if I do this. He is further worried for his safety if the local Police are notified but does feel they are watching his home as they do come by. Daughter waits for him in the driveway but is in no position to have them evicted. Mr. Pérez owns this older mobile home and would prefer to stay there. He is on housing lists in [facility] for elderly housing but knows it will take months to years. Daughter will follow up. We discussed exploring foster care for his cats with transition to rehab and then just leaving the home. He is going to weigh these options out. Agrees I can speak with his daughter in follow up as they will continue to talk It takes a team. Support and best wishes offered. Follow up msg left for daughter Jocelyn inviting return call to see what or how Mr. Pérez wants to proceed at this time. Update to [facility] team pending re contact from patient and/or daughter. Support to very difficulty situation. Patient verbalizes understanding of risk and therefore appears competent to continue to make living situation decisions. documented in this encounter Plan of Treatment Upcoming Encounters Date Type Specialty Care Team Description 09/04/2022 Ancillary Procedure Radiology Aissatou Briggs Canc eled (D-SCHED ERROR CHILD PSYCHIATRIST / CORRECTION ) [address] [place] [address] (Wo rk) documented as of this encounter Visit Diagnoses Not on filedocumented in this encounter Care Teams Telephone Coin Box Collector Relationship Specialty Start Date End Date Aissatou Briggs APRN PCP - General Internal Medicine 07/29/[address] [place] [address] documented as of this encounter
--- OUTSIDE RECORDS SUMMARY | 2022-08-15 01:33 | XMS_ITS | Encounter Summary ---
:1955 Author Organization [facility] [address] Care Team Providers Name Role Phone Aissatou Briggs OCCUPATIONAL THERAPY AIDE Primary Care Provider Encounter Details Date Type Department Care Team Description 05/31/2020 External [place] [address] Social History Tobacco Use Types Packs/Day [...] Description 09/04/2022 Ancillary Procedure Radiology Aissatou Briggs, Canc eled (D-SCHED ERROR OCCUPATIONAL THERAPY AIDE / CORRECTION ) [address] [place] [address] (Wo rk) documented as of this encounter Procedures Procedure Name Priority Date/Time Associated Diagnosis Comme nts ECG SCAN Routine 05/31/2020 Results for thi s procedure are in the resu lts section. ECG SCAN Routine 05/31/2020 Results for thi s procedure are in the resu lts section. documented in this encounter Results Scan Doc: ECG (05/31/2020) Narrative This result has an attachment that is no t available. Arely Daniels MD MEDIA MGR SCAN EXT ORDR/RSLT Scan Doc: ECG (05/31/2020) Narrative This result has an attachment that is no t available. Historical Provider MD GUZMÁN MGR SCAN EXT ORDR/RSLT documented in this encounter Visit Diagnoses Not on filedocumented in this encounter Care Teams Workers' Compensation Magistrate Relationship Specialty Start Date End Date Aissatou Briggs APRN PCP - General Internal Medicine 07/29/[address] [place] [address] documented as of this encounter
--- OUTSIDE RECORDS SUMMARY | 2022-08-15 01:33 | XMS_ITS | Encounter Summary ---
:1955 Author Organization [facility] [place] [address] Care Team Providers Name Role Phone Aissatou Briggs APRN Primary Care Provider Reason for Referral Consultation (Urgent) - Authorized Specialty Diagnoses / Procedures Referred By Contact Refer red To Contact Orthopaedics Diagnoses Closed fracture of right ankle with malunion, subsequent encounter CLOSED FX RIGHT ANKLE WITH MALUNION Rahat Muniz MD [facility] Orthopaedics 3c [address] [place] [address] Referral ID Status Reason Start Expiration Visits Visits Date Date Requested Authorized [id number] Authorized Consult, 03/28/2022 03/28/2023 6 6 Test & Treat PCP Updated and/or Approved Encounter Details Date Type Department Care Team Description 03/28/2022 Transcribe Orders eDH Incoming Rahat Muniz Closed f racture of Referrals MD right ankle with [phone] [address] malunion, [place] [address] Social History Tobacco Use Types Packs/Day Years [...] Description 09/04/2022 Ancillary Procedure Radiology Aissatou Briggs, Berto velázquez (D-SCHED ERROR COMPUTER TECHNICIAN / CORRECTION ) [address] [place] [address] (Wo rk) Scheduled Referrals Name Type Priority Associated Order Schedule Diagnoses Referral to Outpatient Referral Routine Closed fracture of Or dered: Orthopaedics right ankle with 03/28/2022 malunion, subsequent encounter documented as of this encounter Visit Diagnoses Diagnosis Closed fracture of right ankle with dipti nion, subsequent encounter documented in this encounter Care Teams Curriculum Director Relationship Specialty Start Date End Date Aissatou Briggs, SANTOS PCP - General Internal Medicine 07/29/[address] [place] [address] documented as of this encounter
--- OUTSIDE RECORDS SUMMARY | 2022-08-15 01:33 | XMS_ITS | Encounter Summary ---
:1955 Author Organization [facility] [place] [address] Care Team Providers Name Role Phone Aissatou Briggs APRN Primary Care Provider Encounter Details Date Type Department Care Team Description 05/31/2020 Telephone Cardiology at [facility] Federica Whitten [place] [facility] [place] [address] CARDIOLOGY DEPT. [phone] [place], [place] [address] (Wo rk) Social History Tobacco Use Types Packs/Day Years Used Date Former Smoker Cigarettes Quit: 05/14/20 08 Smokeless Tobacco: Never Used Alcohol Use Standard Drinks/Week Comments No 0 (1 standard drink = 0.6 oz pure alcoho l) Sex Assigned at Date Recorded Not on file documented as of this encounter Miscellaneous Notes Telephone Encounter - Federica Whitten PA - 05/31/2020 3:42 PM EDT Images from the original note were not included. 05/31/2020 Miguel Pérez Initial Contact Date: 05/31/2020 Initial contact time: 3:43 PM Referring Provider: Brenda Villarreal APRN Patient Location: [facility] Past Medical History: ?? Hx of CAD, s/p LCX stent, on plavix ?? Hx of CVA ?? Dyslipidemia ?? HTN ?? COPD Presenting Symptoms per OSH: 64 Y O M with a known history of ASCVD, s/p PCI nine years ago (LCX) presents to [facility] with chest pain that started at 0930 and was given 2 SL NTG at home and then called EMS. Followed by Dr. Ibrahim. Patient has a history of a CVA, Dyslipidemia, HTN and COPD. He is having chest pain that is 4/10 on thepain scale one minute and then the next minute it is gone per WATCH DIAL STONER. EKG shows anterior ST depressionand Trop is negative at noon and at 3 pm. Last cathed on 2015 and stent was patent at that time. Patient to be COVID 19 tested and get another trop at 6 pm. Patient to be started on a heparin gtt and nitro gtt at this time. WATCH DIAL STONER to call back with the results of the third trop and to give an update. Patient may need to be transferred for further evaluation pending biomarkers and ongoing sx. Pertinent Diagnostic Findings: Trop negative x 2 (noon and 3 pm) EKG showing anterolateral ST depression Plan: Plan to trend biomarkers, place patient on a heparin gtt and nitro gtt and the WATCH DIAL STONER is to call back with update after the third trop returns. TBD Above recommendations were based on my discussion with Brenda GRAHAM. I have not personally interviewed or examined this patient. Advised to call the transfer center back with any changes in the patient condition. I have not personally reviewed EKGs. KORTNEY Tariq 05/31/2020 Pager [phone] 05/31/2020 documented in this encounter Plan of Treatment Upcoming Encounters Date Type Specialty Care Team Description 09/04/2022 Ancillary Procedure Radiology Aissatou Briggs Canc eled (D-SCHED ERROR WATCH DIAL STONER / CORRECTION ) [address] [place] [address] (Wo rk) documented as of this encounter Visit Diagnoses Not on filedocumented in this encounter Care Teams General Claims Agent Relationship Specialty Start Date End Date Aissatou Briggs APRN PCP - General Internal Medicine 07/29/16 [address] [address] documented as of this encounter
--- OUTSIDE RECORDS SUMMARY | 2022-08-15 01:33 | XMS_ITS | Encounter Summary ---
:1955 Author Organization [facility] [place] [address] Care Team Providers Name Role Phone Aissatou Briggs APRN Primary Care Provider Encounter Details Date Type Department Care Team Description 09/17/2021 Ancillary Procedure Radiology Library at Aissatou Briggs, [facility] FUR JOINER [facility] [address] [place] [phone] (Wo rk) Social History Tobacco Use Types [...] Description 09/04/2022 Ancillary Procedure Radiology Aissatou Briggs, [facility] eled (D-SCHED ERROR FUR JOINER / CORRECTION ) [address] [place], [place] [address] (Wo rk) documented as of this encounter Procedures Procedure Name Priority Date/Time Associated Diagnosis Comme nts FILM LIBRARY Routine 09/17/2021 12:00 AM Results for this STORAGE ONLY DX EST procedure ar e in ANKLE the results section. documented in this encounter Results Film Library- Storage Only DX Ankle (09/17/2021 12:00 AM EST) Specimen (Source) Anatomical Location Collection Method / Collectio n Time Received Time / Laterality Volume Narrative RAD - 03/24/2022 8:50 PM EDT This exam is auto-finalizing. It's purpo se is for storage only. Aissatou Briggs APRN IMG FILM LIBRARY ORDERABLES Performing Organization Address City/State/ZIP Code Phon e Number [place], [place] documented in this encounter Visit Diagnoses Not on filedocumented in this encounter Care Teams Forestry Workers Relationship Specialty Start Date End Date Aissatou Briggs APRN PCP - General Internal Medicine 07/29/[address] [place] [address] documented as of this encounter
--- OUTSIDE RECORDS SUMMARY | 2022-08-15 01:33 | XMS_ITS | Encounter Summary ---
:1955 Author Organization [facility] [place] [address] Care Team Providers Name Role Phone Aissatou Briggs APRN Primary Care Provider Encounter Details Date Type Department Care Team Description 09/04/2021 Ancillary Procedure Radiology Library at Aissatou Briggs, [facility] URBAN PLANNING TEACHER [facility] [address] [place] [phone] (Wo rk) Social History Tobacco Use Types [...] Description 09/04/2022 Ancillary Procedure Radiology Aissatou Briggs, [facility] eled (D-SCHED ERROR URBAN PLANNING TEACHER / CORRECTION ) [address] [place], [place] [address] (Wo rk) documented as of this encounter Procedures Procedure Name Priority Date/Time Associated Diagnosis Comme nts FILM LIBRARY Routine 09/04/2021 12:00 AM Results for this STORAGE ONLY DX EDT procedure ar e in FOOT the results section. documented in this encounter Results Film Library- Storage Only DX Foot (09/04/2021 12:00 AM EDT) Specimen (Source) Anatomical Location Collection Method / Collectio n Time Received Time / Laterality Volume Narrative RAD - 03/24/2022 8:44 PM EDT This exam is auto-finalizing. It's purpo se is for storage only. Aissatou Briggs APRN IMG FILM LIBRARY ORDERABLES Performing Organization Address City/State/ZIP Code Phon e Number [place], [place] documented in this encounter Visit Diagnoses Not on filedocumented in this encounter Care Teams Maintenance Trainer Relationship Specialty Start Date End Date Aissatou Briggs APRN PCP - General Internal Medicine 07/29/[address] [place] [address] documented as of this encounter
--- OUTSIDE RECORDS SUMMARY | 2022-08-15 01:33 | XMS_ITS | Encounter Summary ---
:1955 Author Organization [facility] [place] [address] Care Team Providers Name Role Phone Aissatou Briggs APRN Primary Care Provider Encounter Details Date Type Department Care Team Description 09/24/2021 Ancillary Procedure Radiology Library at Aissatou Briggs, [facility] REGULATORY ANALYST [facility] [address] [place] [phone] (Wo rk) Social History Tobacco Use Types [...] Description 09/04/2022 Ancillary Procedure Radiology Aissatou Briggs, [facility] eled (D-SCHED ERROR REGULATORY ANALYST / CORRECTION ) [address] [place], [place] [address] (Wo rk) documented as of this encounter Procedures Procedure Name Priority Date/Time Associated Diagnosis Comme nts FILM LIBRARY Routine 09/24/2021 12:00 AM Results for this STORAGE ONLY DX EST procedure ar e in ANKLE the results section. documented in this encounter Results Film Library- Storage Only DX Ankle (09/24/2021 12:00 AM EST) Specimen (Source) Anatomical Location Collection Method / Collectio n Time Received Time / Laterality Volume Narrative RAD - 03/24/2022 8:52 PM EDT This exam is auto-finalizing. It's purpo se is for storage only. Aissatou Briggs APRN IMG FILM LIBRARY ORDERABLES Performing Organization Address City/State/ZIP Code Phon e Number [place], [place] documented in this encounter Visit Diagnoses Not on filedocumented in this encounter Care Teams Material Analyst Relationship Specialty Start Date End Date Aissatou Briggs APRN PCP - General Internal Medicine 07/29/[address] [place] [address] documented as of this encounter
--- OUTSIDE RECORDS SUMMARY | 2022-08-15 01:33 | XMS_ITS | Encounter Summary ---
:1955 Author Organization [facility] [place] [address] Care Team Providers Name Role Phone Aissatou Briggs APRN Primary Care Provider Encounter Details Date Type Department Care Team Description 04/14/2022 Hospital Encounter XRay at [facility] Luis, Pavel Yepez, Closed fracture of [address] [place] right ankle, [facility] [address] [place] [phone] [place] [address] Social History Tobacco Use Types Packs/Day Years Used Date Former Smoker Cigarettes Quit: 05/14/20 08 Smokeless Tobacco: Never Used Alcohol Use Standard Drinks/Week Comments No 0 (1 standard drink = 0.6 oz pure alcoho l) Sex Assigned at Date Recorded Not on file documented as of this encounter Medications at Time of Discharge Medication Sig Dispensed Refills Start Date End Date albuteroL (ACCUNEB) 1.25 0 11/19/2021 mg/3 mL Solution for Nebulization albuteroL 90 mcg/actuation 0 2 HFA Aerosol Inhaler baclofen (Lioresal) 10 mg Take 10 mg by mouth 0 0 03/18/2022 Tablet 3 times daily. Only takes 2 times a day citalopram (CeleXA) 40 mg Take 40 mg by mouth. 0 03/11/2022 Tablet digoxin (Lanoxin) 125 mcg Take 125 mcg by 0 (0.125 mg) Tablet mouth Daily. diazePAM (Valium) 2 mg Take 2 mg by mouth 0 Tablet Twice daily. cyanocobalamin, Vitamin 0 03/19/2022 B-12, (Vitamin B-12) 1,000 mcg Tablet docusate sodium (Colace) 2 times daily. 0 022 100 mg Capsule vitamin D 50,000 unit once a week. 0 03/19/2022 Capsule ferrous sulfate 325 mg (65 0 2 mg iron) Tablet folic acid (Folvite) 1 mg 0 03/19/2022 Tablet finasteride (Proscar) 5 mg daily. 0 2 Tablet HYDROcodone-acetaminophen Take 2 tablets by 0 (VICODIN) 5-300 mg Tablet mouth Twice daily as needed. Takes one tablet three times a day isosorbide dinitrate Take 20 mg by mouth 0 (ISORDIL) 20 mg Tablet Twice daily. levalbuteroL (Xopenex) 0.63 Inhale 0.63 mg into 0 mg/3 mL Solution for the lungs Every 6 Nebulization hours as needed. magnesium oxide (Mag-Ox) daily. 0 03/19/2022 400 mg (241.3 mg magnesium) Tablet metoprolol succinate XL Take 50 mg by mouth 0 (Toprol-XL) 50 mg Tablet Daily. Sustained Release 24 hr mupirocin (Bactroban) 2 % 0 02/25/2022 Ointment naloxone (Narcan) 4 Q3M 0 06/03/2020 mg/actuation [place], Non-Aerosol polyethylene glycoL as needed. 0 04/15/2020 (Miralax) 17 gram/dose Powder pregabalin (LYRICA) 150 mg Take 150 mg by mouth 0 03/19/2022 Capsule daily. spironolactone (Aldactone) daily. 0 2 25 mg Tablet tamsulosin (Flomax) 0.4 mg nightly. 0 2 Capsule atorvastatin (Lipitor) 40 daily. 0 03/19/2022 mg Tablet Flovent HFA 220 0 11/19/2021 mcg/actuation HFA Aerosol Inhaler gabapentin (Neurontin) 400 Take 600 mg by mouth 0 mg Capsule 4 times daily. apixaban (Eliquis) 5 mg Take 5 mg by mouth 2 0 Tablet times daily. pantoprazole (PROTONIX) 40 Take 40 mg by mouth 0 mg Tablet, Delayed Release daily. (E.C.) triamcinolone (KENALOG) 0.1 apply to the itchy 80 g 0 07/25/2018 % Cream areas on the arms and trunk BID lamoTRIgine (LAMICTAL) 100 Take 100 mg by mouth 0 mg Tablet 2 times daily. NITROSTAT 0.4 mg Tablet, Place 0.4 mg under 0 Sublingual the tongue every 5 minutes as needed. Reported on 12/08/2016 lisinopril Take 1 tablet by 90 tablet 3 01/15/2016 (PRINIVIL;ZESTRIL) 5 mg mouth daily. TabletIndications: Cardiomyopathy, ischemic fluticasone (FLONASE) 50 1 spray by Nasal 0 mcg/actuation nasal spray route as needed. documented as of this encounter Plan of Treatment Upcoming Encounters Date Type Specialty Care Team Description 09/04/2022 Ancillary Procedure Radiology Aissatou Briggs Canc eled (D-SCHED ERROR GLASS OR MIRROR INSPECTOR / CORRECTION ) [address] [place] [address] (Wo rk) documented as of this encounter Procedures Procedure Name Priority Date/Time Associated Diagnosis Comme nts XR ANKLE MIN 3 Routine 04/14/2022 1:15 PM Closed fracture of R esults for this VIEWS RIGHT EDT right ankle, sequela procedu re are in the results section. documented in this encounter Results XR Ankle Min 3 [...] view 4. ??Probably Acute displaced fibular fr [place], with visible fracture line 5. ??Irregular posterior tibial plafond may represent age-indeterminate posterior malleolar fracture. Thank you for letting us participate in the care of this patient. ??If you are a health care provider and have any questi ons regarding this report, please contact the number below. ??For patients who have questions please contact the health acute care physical therapist that requested your imaging first. ? Electronically signed by: Leyla Palacios MD, [facility] ([phone]), at 04/14/2022 2:17 PM Narrative 04/14/2022 2:17 PM EDT EXAMINATION: XR [...] ho have questions please contact the health acute care physical therapist that requested your imaging first. Electronically signed by: Leyla Palacios MD, [facility] ([phone]), at 04/14/2022 2:17 PM Pavel Smith MD IMG DX ORDERABLES documented in this encounter Visit Diagnoses Diagnosis Closed fracture of right ankle, sequela documented in this encounter Care Teams Transportation Mechanic Relationship Specialty Start Date End Date Aissatou Briggs APRN PCP - General Internal Medicine 07/29/16 [address] [place] [address] documented as of this encounter
--- OUTSIDE RECORDS SUMMARY | 2022-08-15 01:34 | XMS_ITS | Encounter Summary ---
:1955 [place] [address] Care Team Providers Name Role Phone Aissatou Briggs LOCAL TELEPHONE OPERATOR Primary Care Provider Encounter Details Date Type Department Care Team Description 08/27/2019 Ancillary Procedure Radiology Library at [facility] [place] [place] [facility] [place] [address] PULMONARY MEDICINE [phone] [place] [phone] (Wo rk) Social History Tobacco Use Types [...] Radiology Aissatou Briggs, Berto velázquez (D-SCHED ERROR LOCAL TELEPHONE OPERATOR / CORRECTION ) [address] [place] [address] (Wo rk) documented as of this encounter Procedures Procedure Name Priority Date/Time Associated Diagnosis Comme nts FILM LIBRARY Routine 08/27/2019 10:32 PM Results for this STORAGE ONLY CT EDT procedure ar e in ABDOMEN the results section. documented in this encounter Results Film Library- Storage Only CT Abdomen (08/27/2019 10:32 PM EDT) Specimen (Source) Anatomical Location Collection Method / Collectio n Time Received Time / Laterality Volume Narrative [facility] - 08/27/2019 10:32 PM EDT This exam is auto-finalizing. It's purpo se is for storage only. Maximus Menezes MD IMG FILM LIBRARY ORDERABLES Performing Organization Address City/State/ZIP Code Phon e Number [place], [place] documented in this encounter Visit Diagnoses Not on filedocumented in this encounter Care Teams [employer] Senior Officer Relationship Specialty Start Date End Date Aissatou Briggs APRN PCP - General Internal Medicine 07/29/[address] [place] [address] documented as of this encounter
--- OUTSIDE RECORDS SUMMARY | 2022-08-15 01:34 | XMS_ITS | Encounter Summary ---
:1955 Author Organization [facility] [place] [address] Care Team Providers Name Role Phone Aissatou Briggs APRN Primary Care Provider Reason for Visit Auth/Cert Specialty Diagnoses / Procedures Referred By Contact Refer red To Contact Diagnoses Cervical spondylosis CERVICAL STENOSIS Procedures PRO LAMINECTOMY, >2 SGMT, CERVICAL LAMINECTOMY DECOMPRESSION > 2 SEGMENTS,CX Referral ID Status Reason Start Date Expiration Date Visits Requ ested Visits Authorized [id number] 1 1 Encounter Details Date Type Department Care Team Description 10/12/2016 Surgery Main Operating Room Lucio Bullard LA MINECTOMY DECOMPRESSION Luisa Steele MD > 2 SEGMENTS,CX ([facility] 20.85) [facility] [address] [address] [place] [address] [phone] (Wo rk) Social History Tobacco Use Types Packs/Day Years Used Date Former Smoker Cigarettes Quit: 05/14/20 08 Smokeless Tobacco: Never Used Alcohol Use Standard Drinks/Week Comments No 0 (1 standard drink = 0.6 oz pure alcoho l) Sex Assigned at Date Recorded Not on file documented as of this encounter Last Filed Vital Signs Vital Sign Reading Time Taken Comments Blood Pressure 94/57 10/15/2016 12:59 PM EST Pulse 76 10/12/2016 10:45 AM EST Temperature 36.7 ??C (98.1 ??F) 10/15/2016 12:59 PM EST Respiratory Rate 16 10/15/2016 12:59 PM EST Oxygen Saturation 99% 10/15/2016 12:59 PM EST Inhaled Oxygen Concentration - - Weight 64 kg (141 lb) 10/12/2016 6:43 AM EST Height 162.6 cm (5' 4) 10/12/2016 6:43 AM EST Body Mass Index 24.2 10/12/2016 6:43 AM EST documented in this encounter Discharge Summaries Miguel PérezKORTNEY - 10/15/2016 8:18 AM EST Inpatient - Discharge Summary Patient Name: Miguel Pérez Patient Age: 61 y.o. Birthdate: 1955 Admit date: 10/12/2016 Discharge date and time: 10/15/2016 Attending Physician: Lucio Bullard MD Discharge Diagnoses (Hospital Problems): Active Hospital Problems Diagnosis ??? Cervical spondylosis ??? Postoperative ileus ??? Unstable angina ??? ST elevation myocardial infarction (STEMI) of inferolateral wall, subsequent episode of care 04/15/2011: inferior STEMI. Distal LCX culprit 100% received BMSx1 (Integrity 2.5 x 14 mm stent). Discharge LVEF 52% by echo (TTE). Cath results below Right dominant LM: normal LAD: mid LAD with moderate diffuse disease, ostial D2 with 50% stenosis RCA: mild diffuse disease LCX: mild diffuse disease, distal 100% occlusion resolved with stent ??? CAD (coronary artery disease) 04/15/2011: inferior STEMI. Distal LCX culprit 100% received BMSx1 (Integrity 2.5 x 14 mm stent). Discharge LVEF 52% by echo (TTE). Cath results below Right dominant LM: normal LAD: mid LAD with moderate diffuse disease, ostial D2 with 50% stenosis RCA: mild diffuse disease LCX: mild diffuse disease, distal 100% occlusion resolved with stent 04/11/2012: pharmacologic nuclear stress test (regadenoson technetium-sestamibi for atypical chest pain). Large inferolateral scar with small brittnee-infarct ischemia, and associated hypokinesis. LVEF 46%. Resolved Hospital Problems Diagnosis Date Resolved No resolved problems to display. Active Non-Hospital Problems Diagnosis ??? Cervical stenosis of spinal canal ??? Testicle pain ??? Epilepsy ??? Memory loss ??? TBI (traumatic brain injury) ??? Depression ??? GERD (gastroesophageal reflux disease) ??? Allergic rhinitis ??? Left-sided muscle weakness ??? Facial droop Operations/Major Procedures: 10/12/16 s/p C3-6 laminectomy, Dr Bullard History of Presentation: The patient is a 61-year-old male who was evaluated for left arm weakness. The patient was found to have cervical stenosis with T2 signal changes within the cord. The patient was preoped and received Cardiology clearance and then brought to the operating room for definitive management. ?? Hospital Course: Patient was admitted 10/12/16 and was brought to the OR for uncomplicated C3-[address] Bullard. He was allowed to mobilize with rehab therapies. Post-op he reported improvement in left sidesymptoms with reduced tingling and better strength. Post-op course was notable for an episode of substernal CP relieved with SL NTG. He also developed a mild ileus that improved with conservative management. At time of discharge he is ambulating independently and tolerating a regular diet. Pain is well controled. He is now felt safe for d/c to home with VNA services. Important Studies and Lab Data: Lab Results Component Value Date/Time WBC 8.5 09/19/2016 05:44 AM HGB 13.8 09/19/2016 05:44 AM HCT 40.9 09/19/2016 05:44 AM PLATELET 134 (L) 09/19/2016 05:44 AM NA 134 (L) 10/14/2016 11:56 AM K 4.3 10/14/2016 11:56 AM CL 98 10/14/2016 11:56 AM CO2 23 10/14/2016 11:56 AM BUN 18 09/19/2016 12:59 PM CREATININE 0.91 09/19/2016 12:59 PM Pending Studies and Lab Data: No current labs Discharge Conditions/Prognosis: Stable Discharge to: Home with VNA Discharge Medications: Your Medications New Medications Dose Details acetaminophen 325 mg Tab Commonly known as: TYLENOL Take 2 tablets by mouth every 4 hours as needed for Pain (mild pain). 650 mg Quantity: 30 tablet Refills: 1 oxyCODONE 5 mg Tab Commonly known as: ROXICODONE Take 1-2 tablets by mouth every 4 hours as needed for Pain (mild to moderate pain (1-6)). 5-10 mg Quantity: 40 tablet Refills: 0 Continued medications with new dosing Dose Details cyclobenzaprine 10 mg Tab Commonly known as: FLEXERIL Take 1 tablet by mouth 3 times daily as needed for Muscle spasms. What changed: - medication strength - how much to take - when to take this - reasons to take this 10 mg Quantity: 30 tablet Refills: 0 Continued medications, unchanged Dose Details aspirin 81 mg Tbec Take 81 mg by mouth daily. 81 mg Refills: 0 atorvastatin 80 mg Tab Commonly known as: LIPITOR Take 1 tablet by mouth daily. 80 mg Quantity: 90 tablet Refills: 3 citalopram 40 mg Tab Commonly known as: CeleXA Take 1 tablet by mouth daily. 40 mg Quantity: 90 tablet Refills: 3 docusate sodium 100 mg Cap Commonly known as: COLACE Take 100 mg by mouth daily. 100 mg Refills: 0 * fluticasone 50 mcg/actuation Spsn Commonly known as: FLONASE 1 spray by Nasal route as needed. 1 spray Refills: 0 * fluticasone 110 mcg/actuation Hfaa Commonly known as: FLOVENT Inhale 1 puff into the lungs 2 times daily. 1 puff Quantity: 1 Inhaler Refills: 3 gabapentin 300 mg Cap Commonly known as: NEURONTIN Take 300 mg by mouth 3 times daily. 300 mg in the morning and afternoon; 600 mg at night 300 mg Refills: 0 hydrOXYzine 25 mg Tab Commonly known as: ATARAX Take 25 mg by mouth 3 times daily. 25 mg Refills: 0 lamoTRIgine 100 mg Tab Commonly known as: LaMICtal Take 100 mg by mouth daily. 100 mg Refills: 0 lisinopril 5 mg Tab Commonly known as: PRINIVIL;ZESTRIL Take 1 tablet by mouth daily. 5 mg Quantity: 90 tablet Refills: 3 meloxicam 15 mg Tab Commonly known as: MOBIC Take 15 mg by mouth daily. 15 mg Refills: 0 [address]ITRO[address] 0[address] 0.4 mg under the tongue every 5 minutes as needed. Generic drug: nitroGLYcerin 0.4 mg Refills: 0 omeprazole 20 mg Cpdr Commonly known as: PriLOSEC Take 1 capsule by mouth daily. 20 mg Quantity: 30 capsule Refills: 3 phenytoin 100 mg Cap Commonly known as: DILANTIN KAPSEAL Take 1 capsule by mouth every morning, and 2 capsules every evening. Brand name only. Quantity: 180 tablet Refills: 3 traZODone 100 mg Tab Commonly known as: DESYREL Take 200 mg by mouth nightly. 200 mg Refills: 0 XOPENEX HFA 45 mcg/actuation Hfaa Inhale 1-2 puffs into the lungs every 4 hours as needed. Generic drug: levalbuterol 1-2 puff Refills: 0 * Notice: This list has 2 medication(s) that are the same as other medications prescribed for you. Read the directions carefully, and ask your doctor or other care provider to review them with you. Updated Allergies/ADRs: Allergies Allergen Reactions ??? Abilify [Aripiprazole] Rash ??? Codeine Nausea And Vomiting and Rash ??? Oxycodone Rash Headache Follow-up Recommendations for Providers: See Below Instructions Given to Patient at Discharge: Patient Instructions Primary Reason for Hospitalization: Cervical spinal stenosis Condition at Discharge: Stable Discharge Instructions for Spinal Surgery CALL YOUR PHYSICIAN IF: 1. You have a fever greater than 101 degrees Farenheit within one month of your surgery. 2. You have worsening back/neck pain, not controlled with your pain medication. 3. You begin having new trouble moving your arms or legs. 4. You develop pain, burning, urgency/frequency with urination. 5. You develop redness, swelling, or milky or watery drainage from your wound. Prescriptions*: The following have been prescribed to control your discomfort after surgery: (X) Narcotic pain medications, such as Percocet, Vicodin, oxycodone or Dilaudid 1. DO NOT use alcohol, drive, or operate heavy or complex machinery while taking these medications. ??? Narcotic pain medications may cause constipation. ??? Stool softeners, such as Colace; mild laxatives, such as Milk of Magnesia, Sennakot, or Ducolax tabs; or enemas may be used if needed and are [id number] (OTC) medications available at most local pharmacies. Prunes or prune juice, taken daily, can also be helpful for constipation treatment or prevention and are available at most supermarkets. Driving Restrictions*: - [X] No driving until your follow-up with Neurosurgery. Activities: ??? Discuss return to work or school with your surgeon. ? No heavy lifting. You may lift what is comfortable to lift with one arm. Nothing greater than 3-5 pounds until re-evaluated by your physician. ? Avoid pushing and/or pulling objects. No washing tobar, windows, or floors, and no vacuuming or lifting heavy laundry or grocery bags. ? No shoveling, mowing lawns, climbing onto roofs or up ladders and no painting. ? Avoid prolonged periods of straight-back sitting (e.g., no more than 20 minutes at a time), without changing your position. ? No bending, twisting, or lifting. It is better to bend at the knees. ??? You will be advised at your follow-up appointment when you may resume these activities. Diet: ??? Eat a well-balanced diet. Fresh fruits, vegetables and fiber-containing foods are recommended. This will assist in wound healing. Recommendations: ??? Take it easy for two weeks. Remember, If it hurts, don't do it. ??? Take several slow, short walks each day for the first two weeks, and gradually increase your distance. We recommend at least 4 times a day. ??? You can go up and down stairs, but take your time and make sure your feet are securely placed oneach step. ??? You can resume sexual activity over the next several weeks. You should be positioned on your back or side. ??? Ankle pump exercises (like pressing and releasing the gas pedal) should be done several times each day until you are back to your normal activities. Wound Care: ??? After 4 days, you can shower per usual routine and wash the incision area gently. Pat incision dry with a clean, dry towel. ? Do not submerge the wound under water (avoid spas, pools and bathtubs) until it is fully healed. ? Do not use creams, oils, or ointments on the wound. ??? Keep the wound open to air if it is not draining. Comfort: ??? Some incision soreness can be expected. ??? Take your pain medication as needed and prescribed. ??? Taper use of pain medication as pain lessens. Follow-up Appointments: (X) Please follow-up in Neurosurgery Clinic with: (X)Dr. Bullard in 4-6 weeks. Please call the Neurosurgery Clinic if you have not received a scheduled appointment in the mail within 2-3 weeks. (X)You have absorbable sutures. They will absorb on their own. Steri strips will flake-off gradually. IMPORTANT PHONE NUMBERS: Wednesday - Wednesday (8AM to 5PM): ?? Outpatient nurse - Leticia Hook RN: ?? Inpatient associate providers - Miguel Pérez PA-C, Miguel Christianson PA-C, Eloise Trejo APRN: ?? Neurosurgeons - Dr. Bullard: ?? Pediatric Neurosurgeon - Dr. Christopher After office hours (5PM to 8AM) and on weekends you can reach neurosurgery by calling the hospital ripper operator at and ask for the Neurosurgery resident on-call Neurology/Neurosugery (5W) and Neuro Special Care Unit (NSCU): CC: Aissatou Briggs APRN Future Appointments and Orders Future Orders Complete By Expires Referral to Home Health - at DISCHARGE [[id number] CPT(R)] As directed Process Instructions: Scheduling Instructions: Comments: DOCUMENTATION FOR VNA SERVICES PATIENT'S LOCATION: Miguel Pérez [address] [place] [phone] (home) [phone] (cell) Electrical Electronics Engineer's Name: Self and Life Partner (Mery). In discussion with the attending physician, it is certified that this patient is under their care and that they, or a Nurse Practitioner,Clinical Nurse specialist or Physician Program Development Manager who is working directly with them, had a face to face encounter that meets the physician face to face encounter requirements with this patient on 10/13/2016. The encounter with the patient was in whole, or in part, for the following medical condition, which is the primary reason for home health care services: Preoperative diagnosis: CERVICAL STENOSIS ?? Postoperative diagnosis: CERVICAL STENOSIS ?? Procedure(s): 10/12/16 LAMINECTOMY DECOMPRESSION > 2 SEGMENTS,CX In discussion with the provider, it is certified that, based on their findings, the following services are medically necessary for home health services. To provide the following care/treatments with the clinical findings supporting the need for servicesas follows: HOME CARE ORDERS: RN ORDERS: Assess wound or incision, vital signs, cardiopulmonary status, nutrition, hydration, elimination, meds effectiveness and management; reinforce education re health issues PT ORDERS: Continue rehab for endurance, gait stability and strength with mobility and transfers. Home safety evaluation. Home exercise program if appropriate. OT: assess and continue rehab for managing ADL's. HOME HEALTH CARE AGENCY: [facility]. PHONE: [phone] FAX: [phone] Start of care: 24 hours after discharge FOR MEDICARE ONLY: In discussion with the attending physician, it is certified that the clinical findings support that this patient is homebound because absences from home require considerable and taxing effort due to: S/P Laminectomy Decompression, C3-6 with unsteady gait and need for assistance of others and a walker for ambulation. Decreased strength and decreased sensation in left arm. Please note that any additional orders needs or changes will need to be obtained from this patient'sPCP: Aissatou Briggs APRN [address] [facility] [id number] All A agencies which cover the area of patient's residence have been reviewed, either verbally or in writing, and patient/family have chosen the home health care agency noted Questions: Agency name and contact information: [facility] Agency Patient location post discharge: Own Home What services are requested: Registered Nurse Physical Therapy Occupational Therapy Home Health Aide Start date: Responsible MD post discharge contact info: PCP, Aissatou Briggs APRN Walker standard [[id number] Custom] As directed Process Instructions: Scheduling Instructions: Comments: Miguel Pérez [address] [facility] [phone] (home) [phone] (cell) Diagnosis: S/P Laminectomy Decompression C3-6 on 10/12/16, with Unsteady gait Patient???s: Hgt: 162.6 cm (5' 4) Wgt: 64 kg (141 lbs) VENDOR: [email or web address] Ordering: Front wheel walker Deliver to [facility] room #: 307-A Questions: Vendor Name/Contact information: [facility] Electronically Signed By: KORTNEY JOHNSON 10/15/2016 documented in this encounter Discharge Instructions Patient InstructionsSaMiguel mcdonnell PA - 10/15/2016 8:16 AM EST Primary Reason for Hospitalization: Cervical spinal stenosis Condition at Discharge: Stable Discharge Instructions for Spinal Surgery CALL YOUR PHYSICIAN IF: 1. You have a fever greater than 101 degrees Farenheit within one month of your surgery. 2. You have worsening back/neck pain, not controlled with your pain medication. 3. You begin having new trouble moving your arms or legs. 4. You develop pain, burning, urgency/frequency with urination. 5. You develop redness, swelling, or milky or watery drainage from your wound. Prescriptions*: The following have been prescribed to control your discomfort after surgery: (X) Narcotic pain medications, such as Percocet, Vicodin, oxycodone or Dilaudid 1. DO NOT use alcohol, drive, or operate heavy or complex machinery while taking these medications. ??? Narcotic pain medications may cause constipation. ??? Stool softeners, such as Colace; mild laxatives, such as Milk of Magnesia, Sennakot, or Ducolax tabs; or enemas may be used if needed and are [id number] (OTC) medications available at most local pharmacies. Prunes or prune juice, taken daily, can also be helpful for constipation treatment or prevention and are available at most supermarkets. Driving Restrictions*: - [X] No driving until your follow-up with Neurosurgery. Activities: ??? Discuss return to work or school with your surgeon. ? No heavy lifting. You may lift what is comfortable to lift with one arm. Nothing greater than 3-5 pounds until re-evaluated by your physician. ? Avoid pushing and/or pulling objects. No washing tobar, windows, or floors, and no vacuuming or lifting heavy laundry or grocery bags. ? No shoveling, mowing lawns, climbing onto roofs or up ladders and no painting. ? Avoid prolonged periods of straight-back sitting (e.g., no more than 20 minutes at a time), without changing your position. ? No bending, twisting, or lifting. It is better to bend at the knees. ??? You will be advised at your follow-up appointment when you may resume these activities. Diet: ??? Eat a well-balanced diet. Fresh fruits, vegetables and fiber-containing foods are recommended. This will assist in wound healing. Recommendations: ??? Take it easy for two weeks. Remember, If it hurts, don't do it. ??? Take several slow, short walks each day for the first two weeks, and gradually increase your distance. We recommend at least 4 times a day. ??? You can go up and down stairs, but take your time and make sure your feet are securely placed oneach step. ??? You can resume sexual activity over the next several weeks. You should be positioned on your back or side. ??? Ankle pump exercises (like pressing and releasing the gas pedal) should be done several times each day until you are back to your normal activities. Wound Care: ??? After 4 days, you can shower per usual routine and wash the incision area gently. Pat incision dry with a clean, dry towel. ? Do not submerge the wound under water (avoid spas, pools and bathtubs) until it is fully healed. ? Do not use creams, oils, or ointments on the wound. ??? Keep the wound open to air if it is not draining. Comfort: ??? Some incision soreness can be expected. ??? Take your pain medication as needed and prescribed. ??? Taper use of pain medication as pain lessens. Follow-up Appointments: (X) Please follow-up in Neurosurgery Clinic with: (X)Dr. Bullard in 4-6 weeks. Please call the Neurosurgery Clinic if you have not received a scheduled appointment in the mail within 2-3 weeks. (X)You have absorbable sutures. They will absorb on their own. Steri strips will flake-off gradually. IMPORTANT PHONE NUMBERS: Wednesday - Wednesday (8AM to 5PM): ?? Outpatient nurse - Leticia Hook, RN: ?? Inpatient associate providers - Miguel Pérez PA-C, Miguel Christianson PA-C, Eloise Trejo APRN: ?? Neurosurgeons - Dr. Bullard: ?? Pediatric Neurosurgeon - Dr. Christopher After office hours (5PM to 8AM) and on weekends you can reach neurosurgery by calling the hospital ripper operator at and ask for the Neurosurgery resident on-call Neurology/Neurosugery (5W) and Neuro Special Care Unit (NSCU): CC: Aissatou Briggs APRN documented in this encounter Medications at Time of Discharge Medication Sig Dispensed Refills Start Date End Date lamoTRIgine (LAMICTAL) Take 100 mg by mouth [...] 0 mcg/actuation nasal spray route as needed. acetaminophen (TYLENOL) Take 2 tablets by 30 tablet 1 10/1504/14/2022 325 mg Tablet mouth every 4 hours as needed for Pain (mild pain). oxyCODONE (ROXICODONE) 5 Take 1-2 tablets by 40 tablet 0 10/19/2016 mg Tablet mouth every 4 hours as needed for Pain (mild to moderate pain (1-6)). gabapentin (NEURONTIN) Take 600 mg by mouth [...] tablet nightly. documented as of this encounter Progress Notes Mary uGtierrez RN - 10/15/2016 3:28 PM EST Pt d/c to home with VNA services per md order. Patient AOx4 hrr, lung sounds clear, no n/v sob or chest pain at time of discharge. +bs, lbm 10/15/16, voiding clear yellow urine. Patient ambulating independently with a cane at this time. Pain well controlled with oxycodone and Tylenol. All LDA's removed. All belongings home with patient. Prescriptions given to patient, all discharge instructions reviewed with patient. All questions answered. Attempts made to call report to VNA, and report faxed. Please see flowsheet for full assessment. Emiliano Interiano MD - 10/15/2016 10:15 AM EST General Surgery Consult Progress Note ID: 61 y.o. male h/o TBI, Epilepsy, and STEMI with stent 09/18/2016, 3 Days Post-Op s/p laminectomy decompression for cervical stenosis with T2 changes. On evening of POD1, c/o nausea/abdominal distention, anterior chest pain, but no vomiting. AAS showed dilated air-filled loops of small and large bowel consistent with ileus without evidence of perforation. Surgery consulted. Interval: - had another BM o/n, tolerated sips/chips Physical Exam: O: Temp: [36.7 ??C (98.1 ??F)-36.8 ??C (98.2 ??F)] Heart Rate: -- Resp: [18] BP: (109-116)/(65-69) SpO2: [97 %-100 %] Heart Rate from SPO2: [67 bpm-79 bpm] I/O last 3 completed shifts: In: 1390 [P.O.:1390] Out: 2625 [Urine:2625] I/O this shift: In: 240 [P.O.:240] Out: 375 [Urine:375] Physical Exam Gen: A0x3, NAD, resting comfortably, sitting up in bed HEENT: post-surgical dressing over head dry CVS: RRR Resp: comfortable on RA Abd: much less distended, softer, less tympanitic, compressible, non-tender, infra-umbililcal scar well healed Ext: SCDs in place, WWP Neuro: non focal, CN II-XII grossly intact Recent Results (from the past 24 hour(s)) Electrolytes panel Result Value Ref Range Sodium 134 (L) 135 - 145 mmol/L Potassium 4.3 3.5 - 5.0 mmol/L Chloride 98 98 - 107 mmol/L CO2 23 22 - 31 mmol/L Anion Gap 13 5 - 15 mmol/L New Imaging: None Impression: 61 y.o. male 3 Days Post-Op s/p laminectomy decompression w/ olgilvie's with improvementin pas 24 hours after bowel movements. Exam is much improved, although still abnormal. Recommendations: - We recommend advancing diet as tolerated, we would recommend going slow and starting with Clears for today, - - Overall, will need outpatient colonoscopy for follow up Recommendations for Olgilvies/pseudo-obstruction prevention: Continued NBOs: enemas/suppositories PRN combined with stool softeners and laxatives to promote consistent daily bowel movements. Avoid any ileus provoking conditions and medications (ie; avoid narcotics, avoid dehydration, optimize electrolytes Mg >1.0, K+>4.0). EMILIANO INTERIANO MD 10/15/2016 Heidi Macdonald RN - 10/15/2016 8:10 AM EST Field Professional spoke with Eloise Trejo NP on the Neurosurgery team regarding status. Patient is MR for discharge today. Rehab service was recommended but patient wants to go home with VNA service for PT/OT. [facility] Heidi Macdonald RN Pager [phone] Danielle Diorxochilt Palomares APRN - 10/15/2016 4:40 AM EST Neurosurgery - Inpatient Progress Note ID: Miguel Pérez, 61 y.o. male s/p C3-6 laminectomy POD3 Interval Hx: -Periods of anxiety -Neurologically stable -Reports left side improved with strength at baseline. Improvement in tingling in hand. -Dry cough. Reproducible anterior chest wall pain, worse with cough/movement causing increase in anxiety. -No complaints of abdominal pain, N/V. BM yesterday AM Objective: Medications: Scheduled Meds: ??? cyclobenzaprine 10 mg Oral TID ??? aspirin 81 mg Oral Daily ??? atorvastatin 80 mg Oral QPM ??? citalopram 40 mg Oral Daily ??? lisinopril 5 mg Oral Daily ??? famotidine 20 mg Oral Q12H Or ??? famotidine 20 mg Intravenous Q12H ??? phenytoin 100 mg Oral QAM And ??? phenytoin 200 mg Oral QPM ??? mometasone 220 mcg Inhalation Nightly ??? lamoTRIgine 100 mg Oral Daily ??? gabapentin 300 mg Oral BID And ??? gabapentin 600 mg Oral Nightly PRN Meds:bisacodyl, LORazepam, guaiFENesin, nitroGLYcerin, morphine, bacitracin, gelatin adsorbable,thrombin (Bovine), BUpivacaine-EPINEPHrine, BUpivacaine (PF), acetaminophen OR acetaminophen, oxyCODONE OR oxyCODONE, labetalol, hydrALAZINE, ondansetron OR ondansetron, traZODone, hydrOXYzine Vitals: Temp: [36.3 ??C (97.3 ??F)-37.3 ??C (99.1 ??F)] Heart Rate: -- Resp: [16-22] BP: (103-149)/(65-80) SpO2: [95 %-100 %] Heart Rate from SPO2: [59 bpm-79 bpm] I/O: Intake/Output Summary (Last 24 hours) at 10/15/16 0440 Last data filed at 10/14/16 1800 Gross per 24 hour Intake 1150 ml Output 1075 ml Net 75 ml Labs: No results for input(s): WBC, HGB, PLATELET in the last 72 hours. Recent Labs 10/14/16 1156 NA 134* K 4.3 CL 98 CO2 23 No results for input(s): PT, INR in the last 72 hours. Physical Exam: -NAD, anxious -Surgical dressing C/D/I -AAOx3 -Speech fluent and appropriate. Naming and repetition intact -No facial asymmetry -Tongue midline -Motor: RUE:5/5 LUE:3+/5 RLE: 5/5 LLE: 4/5 -Sensation diminished LUE, [patient reports this is his baseline], otherwise intact. -Anterior chest wall with pain to palpation between ribs bilaterally -Lungs clear bilaterally -Abdomen soft, non-tender, slight distention. Imaging: CXR PA & Lateral 10/14/16: FINDINGS: No focal airspace opacity. The cardiomediastinal silhouette is within normal limits. There are no pleural effusions or pneumothorax.?? IMPRESSION No acute cardiopulmonary findings. CT Abdomen & Pelvis w Contrast 10/14/16: FINDINGS: Chest base: There are trace bilateral pleural effusions. No pulmonary consolidation is present. The heart is borderline large. The limited portion of the thoracic aorta and its visualized is nonaneurysmal. ?? Liver: Normal size, no focal lesions Bile ducts: Nondilated Gallbladder: There is a small calcified gallstone which measures approximately 3 to 4 mm. No evidence of cholecystitis. Pancreas: Normal Spleen: Normal Adrenals: Normal Kidneys: Normal ?? Lymph Nodes: No enlarged lymph nodes. Bowel: Oral contrast reaches the transverse colon. No dilated loops of small bowel are present. No abnormal small bowel wall thickening is present. The appendix and terminal ileum are normal. The transverse colon is distended with gas with a maximum diameter up to 7 cm. Simple fluid and gas are present within the descending and sigmoid colon which are distended but less dilated than the transverse colon. No focal areas of abnormal wall thickening or areas of abnormal inflammation or stricturing are seen within the colon. There is a segment of decompressed distal sigmoid colon which is incompletely evaluated. A moderate amount of stool is present within the rectum. Peritoneum: No ascites or free air, no fluid collection. Vasculature: The abdominal aorta is nonaneurysmal. There are a few scattered calcified atherosclerotic plaques. ?? Urinary Bladder: Normal. Reproductive organs: Normal Bones: No suspicious lesions. ?? IMPRESSION 1. No evidence of small bowel obstruction as the small bowel is nondilated and oral contrast reaches the colon. 2. The transverse colon is distended with gas up to 7 cm in maximum diameter. The descending and sigmoid colon are also partially distended with gas but not to the same degree. No obvious obstructing lesions. Colonic areas of inflammation or abscess or other obvious causes of distal colonic obstruction are seen. Grace syndrome may also be considered. Of note, there is a focal area of decompressed distal sigmoid colon which is incompletely evaluated due to its degree of decompression. This could represent a transient peristalsis however a stricturing lesion cannot be excluded. I think a mass is less likely given the tobar appear relatively thin at this level. Consider direct visualization with colonoscopy versus contrast enema. 3. Cholelithiasis without evidence of acute cholecystitis. 4. Trace bilateral pleural effusions. ?? Assessment/Plan:: 61 y.o. male POD3 s/p C3-6 laminectomy. Neurologically stable. Periods of increased anxiety. Continues with anterior chest wall pain, dry cough, using incentive spirometer. Abdominal exam improving, moving bowels. - Close neurological observation, q4 checks. - Hold anticoagulation - ADAT - Guaifenesin prn for cough. - Incentive spirometer at bedside, encourage use - Anxiolytics PRN - Discharge planning Heidi Macdonald RN - 10/14/2016 2:03 PM EST Field Professional spoke with Eloise SHEETS from, Neurosurgery re: patient's status. Patient is not MR today. Pt is working with PT/OT today and will be evaluated by PT But team states he is not MR today. Pt c/o nausea/abdominal distention, anterior chest pain, but no vomiting last night and had a CT today to r/o ileus this morning. General Surgery has been consulted. Dr Emiliano Interiano is recommending holding off on advancement of diet and would like to see additional BM's and a decrease of abdominal distention before advancing diet. A KUB will be repeated in AM to assess progression of contrast, and will see pt in the morning. If patient resolves, potential discharge may be Wednesday, 10/16 Heidi Macdonald RN CM Pager [phone] Miguel Dotson MD - 10/14/2016 12:47 PM EST General Surgery Consult Progress Note ID: 61 y.o. male h/o TBI, Epilepsy, and STEMI with stent 09/18/2016, 2 Days Post-Op s/p laminectomy decompression for cervical stenosis with T2 changes. On evening of POD1, c/o nausea/abdominal distention, anterior chest pain, but no vomiting. AAS showed dilated air-filled loops of small and large bowel consistent with ileus without evidence of perforation. Surgery consulted. Interval: - had BM this morning with improvement in exam - CT scan no evidence of obstruction Physical Exam: O: Temp: [36.3 ??C (97.3 ??F)-36.6 ??C (97.9 ??F)] Heart Rate: -- Resp: [16] BP: (122-123)/(70) SpO2: [100 %] Heart Rate from SPO2: [59 bpm-66 bpm] I/O last 3 completed shifts: In: 1525 [P.O.:1520; I.V.:5] Out: 3375 [Urine:3375] I/O this shift: In: - Out: 700 [Urine:700] Physical Exam Gen: A0x3, NAD, resting comfortably HEENT: post-surgical dressing over head dry CVS: RRR Resp: comfortable on RA Abd: distended, tympanitic, compressible, non-tender, infra-umbililcal scar well healed Ext: SCDs in place, WWP Neuro: non focal, CN II-XII grossly intact Recent Results (from the past 24 hour(s)) Electrolytes panel Result Value Ref Range Sodium 134 (L) 135 - 145 mmol/L Potassium 4.3 3.5 - 5.0 mmol/L Chloride 98 98 - 107 mmol/L CO2 23 22 - 31 mmol/L Anion Gap 13 5 - 15 mmol/L Imaging: CT A/P: 1. No evidence of small bowel obstruction as the small bowel is nondilated and oral contrast reachesthe colon. 2. The transverse colon is distended with gas up to 7 cm in maximum diameter. The descending and sigmoid colon are also partially distended with gas but not to the same degree. No obvious obstructing lesions. Colonic areas of inflammation or abscess or other obvious causes of distal colonic obstruction are seen. Tendoy syndrome may also be considered. Of note, there is a focal area of decompressed distal sigmoid colon which is incompletely evaluated due to its degree of decompression. This could represent a transient peristalsis however a stricturing lesion cannot be excluded. I think a mass is less likely given the tobar appear relatively thin at this level. Consider direct visualization with colonoscopy versus contrast enema. 3. Cholelithiasis without evidence of acute cholecystitis. 4. Trace bilateral pleural effusions. Impression: 61 y.o. male 2 Days Post-Op s/p laminectomy decompression w/ post- operative ileus vs olgilvie's with improvement this morning after bowel movement. Pt is notably still quiet distended whichhe believes is not his baseline. CT scan with possible evidence of distal stricture but could also be peristalsis. Recommendations: - Considering distention, we recommend holding off on advancement of diet, would like to see furtherBMs and decreased distention prior to advancement - Repeat KUB in morning to assess progression of contrast/worsening We will plan to see Mr. Pérez again tomorrow. EMILIANO INTERIANO MD 10/14/2016 Attending Addendum I have seen and examined the patient and reviewed the resident's history and I agree with the details as written. I have reviewed the laboratory data and viewed the pertinent imaging. The assessment and plan were formulated in discussion with me and I agree with them as documented. Now with flatus and bowel movement. CT shows evidence for Ogilvies. Would go slow with diet advancement as he still remains markedly distended. Will need outpatient colonoscopy once this resolves completely. Reyna Lopez MD Dior Santos APRN - 10/14/2016 4:47 AM EST Neurosurgery - Inpatient Progress Note ID: Miguel Pérez, 61 y.o. male s/p C3-6 laminectomy POD#2 Interval Hx: -Complained of nausea and abdominal pain overnight. Xray abdomen (+) ileus. -Complaints of anterior chest wall pain that increases with movement and inspiration. Reproducible with palpation. -Neurologically stable -Reports improvement in tingling in left hand, feels strength is at baseline. Objective: Medications: Scheduled Meds: ??? cyclobenzaprine 10 mg Oral TID ??? aspirin 81 mg Oral Daily ??? atorvastatin 80 mg Oral QPM ??? citalopram 40 mg Oral Daily ??? lisinopril 5 mg Oral Daily ??? famotidine 20 mg Oral Q12H Or ??? famotidine 20 mg Intravenous Q12H ??? phenytoin 100 mg Oral QAM And ??? phenytoin 200 mg Oral QPM ??? mometasone 220 mcg Inhalation Nightly ??? lamoTRIgine 100 mg Oral Daily ??? gabapentin 300 mg Oral BID And ??? gabapentin 600 mg Oral Nightly PRN Meds:nitroGLYcerin, morphine, bacitracin, gelatin adsorbable, thrombin (Bovine), BUpivacaine-EPINEPHrine, BUpivacaine (PF), acetaminophen OR acetaminophen, oxyCODONE OR oxyCODONE, labetalol, hydrALAZINE, ondansetron OR ondansetron, traZODone, hydrOXYzine Vitals: Temp: [36.3 ??C (97.3 ??F)-37.1 ??C (98.8 ??F)] Heart Rate: -- Resp: [16-20] BP: (98-128)/(60-90) SpO2: [93 %-99 %] Heart Rate from SPO2: [60 bpm-77 bpm] Heart Rate: 66 I/O: Intake/Output Summary (Last 24 hours) at 10/14/16 0456 Last data filed at 10/14/16 0300 Gross per 24 hour Intake 1040 ml Output 2300 ml Net -1260 ml Labs: No results for input(s): WBC, HGB, PLATELET in the last 72 hours. No results for input(s): NA, K, CL, CO2, BUN, CREATININE in the last 72 hours. No results for input(s): PT, INR in the last 72 hours. Physical Exam: -NAD, Surgical dressing C/D/I -AAOx3 -Speech fluent and appropriate. -No facial asymmetry -Tongue midline -Motor: RUE:5/5 LUE:3+/5 RLE: 5/5 LLE: 4/5 -Sensation diminished left upper extremity, otherwise intact -Anterior chest wall with pain to palpation between ribs bilaterally Imaging: XR Abdomen Flat & Upright 10/13/16: FINDINGS: Multiple dilated air-filled loops of small and large bowel with air-fluid level. No free intraperitoneal air. Image portion of the lung bases and mediastinal structures are unremarkable. No acute fractures. ?? IMPRESSION Dilated air-filled loops of small and large bowel consistent with ileus. No evidence of perforation. ?? Assessment/Plan:: 61 y.o. male s/p C3-6 Laminectomy, POD#2. Now with ileus, NGT placement attempted per general surgery rec, but patient refused. - Close neurological observation, q4H checks. - SBP <160 - Hold anticoagulation - NPO for ileus - General surgery will attempt NG tube placement for small bowel decompression this morning - CT Abdomen per General Surgery consult - Lytes pending - Will monitor today for bowel movement and treat as needed if none - Minimize use of narcotics if possible - Will consider GI consult after discussion with Neurosurgery team. Alicia Ervin RN - 10/13/2016 6:10 PM EST Telemetry Note: Per tele strip: Patient experienced rare PVCs and HR was between 50-80. While on tele patient deniesSOB, or chest pain/tightness. Will continue to monitor. Alicia Mccarthy RN Alicia Ervin RN - 10/13/2016 10:33 AM EST Nurse went in to give morning meds this morning and pt reported to nurse that he was having chest pain, like someone sitting on chest. paged. Orders for stat ECG and cardiac enzymes. RN paged for stat ECG and cardiac enzymes. MD came to the bedside. Paged for ECG a second time. Pt put on bedside cardiac rehab nurse. Patient given nitro x 2 and asprin given, see mar for times. After two doses of nitro patient then reporting chest pain a 0 out of 10. Vitals were monitor closely, see doc flowsheet. Life safety at bedside to draw labs. ordered patient to be put on tele for close monitoring. RN called tele and Pt put on tele. Will continue to monitor. Alicia Mccarthy RN King Cobos MD - 10/13/2016 7:11 AM EST Neurosurgery - Inpatient Progress Note ID: Miguel Pérez, 61 y.o. male s/p C3-6 laminectomy POD1 Interval Hx: -VINCENT -Neurologically stable -Reports left side improved, reduced tingling and better strength Objective: Medications: Scheduled Meds: ??? atorvastatin 80 mg Oral QPM ??? citalopram 40 mg Oral Daily ??? lisinopril 5 mg Oral Daily ??? sodium chloride 0.9 % 5 mL Intravenous BID ??? famotidine 20 mg Oral Q12H Or ??? famotidine 20 mg Intravenous Q12H ??? phenytoin 100 mg Oral QAM And ??? phenytoin 200 mg Oral QPM ??? mometasone 220 mcg Inhalation Nightly ??? lamoTRIgine 100 mg Oral Daily ??? gabapentin 300 mg Oral BID And ??? gabapentin 600 mg Oral Nightly Continuous Infusions: PRN Meds:bacitracin, gelatin adsorbable, thrombin (Bovine), BUpivacaine- EPINEPHrine, BUpivacaine (PF), sodium chloride 0.9 %, lidocaine, acetaminophen OR acetaminophen, oxyCODONE OR oxyCODONE, HYDROmorphone, labetalol, hydrALAZINE, ondansetron OR ondansetron, traZODone, hydrOXYzine, diaZEPam Vitals: Temp: [36.5 ??C (97.7 ??F)-36.9 ??C (98.4 ??F)] Heart Rate: [70-77] Resp: [11-21] BP: (113-166)/(67-96) SpO2: [91 %-99 %] Heart Rate from SPO2: [64 bpm-77 bpm] I/O: Intake/Output Summary (Last 24 hours) at 10/13/16 0711 Last data filed at 10/13/16 0600 Gross per 24 hour Intake 2574 ml Output 2000 ml Net 574 ml Labs: No results for input(s): WBC, HGB, PLATELET in the last 72 hours. No results for input(s): NA, K, CL, CO2, BUN, CREATININE in the last 72 hours. No results for input(s): PT, INR in the last 72 hours. Physical Exam: -NAD -AAOx3 -Speech fluent and appropriate. -PERRL. EOMI. -No facial asymmetry -Tongue midline -Motor: RUE:5/5 LUE:3/5 RLE: 5/5 LLE: 4/5 -Sensation diminished in L arm but improved Assessment/Plan:: 61 y.o. male s/p C3-6 laminectomy POD1 - Close neurological observation, q4 checks. - SBP <160 - Hold anticoagulation - GI PPx - Mobilize - 24 hours of Abx - Pain control - Dispo planning Pollo Nichole MD - 10/12/2016 9:49 PM EST NS POSTOP NOTE 61 y.o. male s/p C3-6 lami Stable since surgery. ??? atorvastatin 80 mg Oral QPM ??? citalopram 40 mg Oral Daily ??? lisinopril 5 mg Oral Daily ??? sodium chloride 0.9 % 5 mL Intravenous BID ??? ceFAZolin 1 g Intravenous Q8H ??? famotidine 20 mg Oral Q12H Or ??? famotidine 20 mg Intravenous Q12H ??? phenytoin 100 mg Oral QAM And ??? phenytoin 200 mg Oral QPM ??? mometasone 220 mcg Inhalation Nightly ??? [START ON 10/13/2016] lamoTRIgine 100 mg Oral Daily ??? [START ON 10/13/2016] gabapentin 300 mg Oral BID And ??? gabapentin 600 mg Oral Nightly Temp: [36.5 ??C (97.7 ??F)-37.5 ??C (99.5 ??F)] Heart Rate: [65-77] Resp: [11-21] BP: (113-166)/(67-96) SpO2: [91 %-99 %] Heart Rate from SPO2: [68 bpm-77 bpm] I/O last 3 completed shifts: In: 2088 [P.O.:680; I.V.:1409] Out: 1000 [Urine:900; Blood:100] I/O this shift: In: 5 [I.V.:5] Out: - AAOx3 Speech fluent PERRL EOMI Face symmetric Tongue midline RUE: 5/5 LUE: 4/5 RLE: 5/5 LLE: 4/5 Sensation diminished in L arm No results found for this or any previous visit (from the past 24 hour(s)). A/P: 61 y.o. male pod 0 s/p C3-6 lami. Neurologically stable. - close neuro monitoring - brittnee-op ancef - ADAT Beau Gonzalez - 10/12/2016 7:02 AM EST 24-HOUR UPDATE Miguel Pérez was seen in SDP. No interval events or changes in health status since preoperative H+P (see EPIC). Denies angina/dyspnea/fevers or malaise within the last 14 days. All questions were answered. Stable for surgery as scheduled. documented in this encounter Miscellaneous Notes Plan of Care - Chilo Dubon OT - 10/15/2016 3:28 PM EST Problem: Patient Care Overview Goal: Plan of Care Review Outcome: Ongoing (Interventions Implemented as Appropriate) 10/15/16 1510 Coping/Psychosocial Plan Of Care Reviewed With patient Occupational Therapy Evaluation Assessment: Pt has been seen by OT for evaluation, please refer to associated flowsheet data for details. Pt presents with impaired ability to perform daily activities and functional mobility secondary to decreased sensation and strength in his LUE, decreased functional mobility, decreased balance, decreased insight into fall risk and overall safety, no bending, lifting, twisting precautions, and pain following a C3 -C6 laminectomy. Pt issued long handled shoe horn, nylon winder, and instructed to bring his ankle tohis knee to don socks, pants, AFO and boots. Pt CGA to dress LB, pt needed cueing to no bend and useAE. Even with cues pt attempted to bend to pull up zipper on boot. Pt stated that he fell 30 times in the past 6 months. Pt would benefit from ongoing OT interventions to increase independence with self care and progress functional mobility while hospitalized. Pt would benefit from a rehab stay however pt declines and will return home with [facility]NA OT and assistance from his son who will be home all but an hour a day. Precautions: fall, skin, SBP<160, no bending, no lifting over 10 lbs, no twisting, L sided weakness King Angelo 10/15/2016 Occupational Therapy Rehabilitation Department Goal: Discharge Needs Assessment Outcome: Ongoing (Interventions Implemented as Appropriate) 10/15/16 1510 Discharge Needs Assessment Equipment Needed After Discharge none Discharge Facility/Level Of Care Needs (Pt declined rehab, home [facility]NA OT) Patient status, treatment interventions, and goals discussed with student. I am in agreement with all details and associated flowsheet rows as documented and was present for all aspects of the patient treatment session. Chilo Dubon OTR/L [id number] Plan of Care - Marissa Shetty, PT - 10/15/2016 2:43 PM EST Problem: Patient Care Overview Goal: Plan of Care Review Outcome: Outcome (s) achieved Date Met: 10/16/16 10/15/16 0541 10/15/16 1443 Coping/Psychosocial Plan Of Care Reviewed With -- patient (RN. PA, care team assistant) Plan of Care Review Progress no change -- Physical Therapy Assessment S: Pt feels safe with DC to home today, 24/05 from son, home services O: Pt seen x 28 mins today for skilled PT for final assessment, assist with donning pants, L AFO andshoes and observed pt ambulate with FWW, vga only Please refer to Doc Flowsheet for specific details A/P: Pt appears to be back to baseline but with ^ strength reported LUE/hand. Did well w/ FWW which what he uses at home (w/ L platfrom) He was able to solution specialist L side of walker w/o issue. Pt safe for DC to home with 24/05 of son and home services, has all needed DME DC PT Goal: Discharge Needs Assessment Outcome: Outcome (s) achieved Date Met: 10/16/16 10/15/16 1443 Discharge Needs Assessment Discharge Disposition home healthcare service;home or self-care (24/05 from son, bed ridden x 2 years) Discharge Planning Comments Pt w/ no concerns re DC to home, son 24/05, home services Plan of Care - Alicia Juarez RN - 10/15/2016 5:49 AM EST Problem: Patient Care Overview Goal: Plan of Care Review Outcome: Ongoing (Interventions Implemented as Appropriate) 10/15/16 0541 Coping/Psychosocial Plan Of Care Reviewed With patient Plan of Care Review Progress no change OUTCOME EVALUATION NOTE: OUTCOME SUMMARY: Patient had one episode of severe pain around 1999, mostly anterior chest pain from coughing. He also reported increased numbness/tingling to left arm. [employer]ICER Danielle at bedside to assess. Pt continues to have frequent, productive cough. Chest x-ray completed and PRN Robitussin given with good effect. Pain otherwise moderately controlled with PRN Tylenol and oxycodone. Neuro checks unchanged. Baseline weakness present to left side. Pt voiding without difficulty. Denies abdominal pain or nausea; bowel sounds present in all quadrants. Telemetry Note: Patient remained on telemetry throughout shift per MD order. Denied CP, SOB, and nausea. Tele stripsshow SR with rare PVCs, HR 60-75. Patient aware to notify RN if symptoms arise. Will continue to monitor via telemetry. PLAN MOVING FORWARD: Pain control Mobilize Neuro checks Q4H Monitor respiratory/bowel function D/C to ? rehab INDIVIDUALIZED FALL PREVENTION INTERVENTIONS: Patient-specific fall risk factors per assessment: [current deficits]: Recent surgery, left-sided weakness Assistance [level of assistance required for transfers and ambulation]: 4- pointed cane and 1-person assist Supervision [direct monitoring required during toileting and ADLs]: Hands on with ADLs Surveillance [continuous indirect monitoring]: Purposeful rounding, bed/chair alarm CPG GOAL OUTCOME EVALUATION: Goal: Infection Control Outcome: Ongoing (Interventions Implemented as Appropriate) 10/14/162036 Safety Interventions Isolation Precautions standard precautions maintained Infection Prevention rest/sleep promoted;single patient room provided;environmental surveillance performed Coping Strategies Supportive Measures active listening utilized;relaxation techniques promoted;verbalization of feelings encouraged Problem: Pain, Acute (Adult) Goal: Identify Related Risk Factors and Signs and Symptoms Related risk factors and signs and symptoms are identified upon initiation of Human Response Clinical Practice Guideline (CPG) Outcome: Ongoing (Interventions Implemented as Appropriate) 10/14/16 1726 Pain, Acute Related Risk Factors (Acute Pain) surgery;fear Signs and Symptoms (Acute Pain) fatigue/weakness;guarding/abnormal posturing/positioning;moaning Goal: Acceptable Pain Control/Comfort Level Patient will demonstrate the desired outcomes by discharge/transition of care. Outcome: Ongoing (Interventions Implemented as Appropriate) 10/15/16 0541 Pain, Acute (Adult) Acceptable Pain Control/Comfort Level making progress toward outcome Plan of Care - Alicia Mccarthy RN - 10/14/2016 5:31 PM EST Problem: Skin Integrity Impairment, Risk/Actual (Adult) Goal: Identify Related Risk Factors and Signs and Symptoms Related risk factors and signs and symptoms are identified upon initiation of Human Response Clinical Practice Guideline (CPG) Outcome: Ongoing (Interventions Implemented as Appropriate) 10/14/16 1726 Skin Integrity Impairment, Risk/Actual Skin Integrity Impairment, Risk/Actual: Related Risk Factors surgery/procedure Goal: Skin Integrity/Wound Healing Patient will demonstrate the desired outcomes by discharge/transition of care. Outcome: Ongoing (Interventions Implemented as Appropriate) 10/14/16 1726 Skin Integrity Impairment, Risk/Actual (Adult) Skin Integrity/Wound Healing making progress toward outcome Problem: Patient Care Overview Goal: Plan of Care Review Outcome: Ongoing (Interventions Implemented as Appropriate) 10/14/16 1726 Coping/Psychosocial Plan Of Care Reviewed With patient Plan of Care Review Progress no change OUTCOME EVALUATION NOTE: OUTCOME SUMMARY: Patient worked with PT today. Patient getting up to bathroom to void. Patient up in chair most of the day. Patients pain controlled with oxycodone, flexeril and gabapentin. Neuro checks Q 4. Patient encouraged to use IS throughout the shift. Patient on tele throughout the shift. Patient went down for a contrast CT today. Patient on a sips and chips diet. Patient had a bowel movement today. Will continue to monitor. PLAN MOVING FORWARD: -Pain Control -Mobilize -I+Os INDIVIDUALIZED FALL PREVENTION: Fall Score: 85 - High Baseline mobility: up ad josh Assistance: -one person-assist with cane Supervision: -Hands-on for all transfers and ambulation Surveillance: -Bed Alarm/Chair Alarm -Purposeful Rounding -Team Care -Bedside Nurse Knowledge Exchange CPG OUTCOME EVALUATION: Goal: Individualization & Mutuality Outcome: Ongoing (Interventions Implemented as Appropriate) 10/14/161725 Mutuality/Individual Preferences What Anxieties, Fears or Concerns Do You Have About Your Health or Care? none What Questions Do You Have About Your Health or Care? none What Information Would Help Us Give You More Personalized Care? none Goal: Fall Prevention-Safe Patient Handling Outcome: Ongoing (Interventions Implemented as Appropriate) 10/14/16 0700 10/14/16 0747 10/14/16 1726 Musculoskeletal Interventions Muscle Strengthening -- -- activity/mobility promoted;mobility in bed promoted Activity and Safety Assistive Device Cane -- -- Daily Care Interventions Self-Care Promotion -- independence encouraged;BADL personal objects within reach -- [place] Fall Risk History of Falling -- 25 -- Secondary Diagnosis -- 15 -- Ambulatory Aids -- 15 -- Intravenous Therapy/Heparin/Saline Lock -- 20 -- Gait/Transferring -- 10 -- Mental Status -- 0 -- Score -- 85 -- OTHER [place] Fall Risk -- High -- Restraint Interventions Safety Promotion/Fall Prevention -- activity supervised;nonskid shoes/slippers when out of bed;safety round/check completed;fall prevention program maintained -- Positioning Body Position -- independent -- Goal: Infection Control Outcome: Ongoing (Interventions Implemented as Appropriate) 10/14/16 0747 10/14/16 172 Safety Interventions Isolation Precautions -- standard precautions maintained Infection Prevention rest/sleep promoted;single patient room provided -- Coping Strategies Supportive Measures active listening utilized;relaxation techniques promoted;self-care encouraged;verbalization of feelings encouraged -- Problem: Pain, Acute (Adult) Goal: Identify Related Risk Factors and Signs and Symptoms Related risk factors and signs and symptoms are identified upon initiation of Human Response Clinical Practice Guideline (CPG) Outcome: Ongoing (Interventions Implemented as Appropriate) 10/14/16 1726 Pain, Acute Related Risk Factors (Acute Pain) surgery;fear Signs and Symptoms (Acute Pain) fatigue/weakness;guarding/abnormal posturing/positioning;moaning Goal: Acceptable Pain Control/Comfort Level Patient will demonstrate the desired outcomes by discharge/transition of care. Outcome: Ongoing (Interventions Implemented as Appropriate) 10/14/16 1726 Pain, Acute (Adult) Acceptable Pain Control/Comfort Level making progress toward outcome Plan of Care - Constanza Mendenhall, PT - 10/14/2016 3:57 PM EST Problem: Patient Care Overview Goal: Plan of Care Review Outcome: Ongoing (Interventions Implemented as Appropriate) 10/14/16 1541 Coping/Psychosocial Plan Of Care Reviewed With patient Physical Therapy Assessment Pt seen today for skilled PT evaluation. Please see associated flowsheet data for specific findings.Patient presents to PT 2 Days Post-Op s/p laminectomy decompression for cervical stenosis with T2 changes. On evening of POD1, c/o nausea/abdominal distention, anterior chest pain, but no vomiting. AASshowed dilated air-filled loops of small and large bowel consistent with ileus without evidence of perforation. Patient has multiple comorbidities which effect his ability to safely mobilize, includingh/o TBI, Epilepsy, and STEMI with stent 09/18/2016; left hemiparesis of UE, decreased sensation in LLE. He wears an AFO on his left and a ankle stabilizer on his right. His pain shot up from a 6 to a 9with mobilizing OOB today and he was quite unsteady when using his quad cane. He has a rolling walker with a platform for his left UE at home and he would benefit from using one while here. SNF recommended to optimize his independence and safety prior to going home. Mobility recommendations: If possible, have patient wear his left AFO, right ankle brace and boots. Can use quad cane on right with CGA for short walks to bathroom. Will try to find a rolling walker with platform for his left UE (none currently available) Constanza Mendenhall, PT Pager [phone] Goal: Discharge Needs Assessment Outcome: Ongoing (Interventions Implemented as Appropriate) 10/14/16 1541 Discharge Needs Assessment Discharge Facility/Level Of Care Needs nursing facility, skilled Discharge Disposition halfway facility Current Health Outpatient/Agency/Support Group Needs halfway facility (specify) Anticipated Changes Related to Illness inability to care for self Activity/Self Care Review of Systems Equipment Currently Used at Home bath bench;cane, quad;commode;hospital bed;walker, rolling;wheelchair Problem: Acute Rehab Services Goal & Intervention Plan Goal: Bed Mobility Goal Stand Alone Therapy Goal Outcome: Ongoing (Interventions Implemented as Appropriate) 10/14/16 1541 Bed Mobility Goal Bed Mobility Goal, Date Established 10/14/16 Bed Mobility Goal, Time to Achieve 5 - 7 days Bed Mobility Goal, Activity Type supine to sit/sit to supine (HOB up (pt has hosp bed)) Bed Mobility Goal, Phelps Level conditional independence Bed Mobility Goal, Assistive Device bed rails Goal: Gait Training Goal Stand Alone Therapy Goal Outcome: Ongoing (Interventions Implemented as Appropriate) 10/14/16 1541 Gait Training Goal Gait Training Goal, Date Established 10/14/16 Gait Training Goal, Time to Achieve 5 - 7 days Gait Training Goal, Phelps Level conditional independence Gait Training Goal, Assist Device walker, rolling platform Gait Training Goal, Distance to Achieve 100 Goal: Goal Transfer Training Stand Alone Therapy Goal Outcome: Ongoing (Interventions Implemented as Appropriate) 10/14/16 1541 Goal Transfer Training Transfer Training Goal, Date Established 10/14/16 Transfer Training Goal, Time to Achieve 5 - 7 days Transfer Training Goal, Activity Type qfm-ej-qllid/[id number]-[id number];tlw-dj-fmbdd/gmriy-uc-cue Transfer Train Goal, Phelps Level supervision required Transfer Training Goal, Assist Device walker, rolling platform Plan of Care - Alicia Juarez RN - 10/14/2016 5:49 AM EST Problem: Patient Care Overview Goal: Plan of Care Review Outcome: Ongoing (Interventions Implemented as Appropriate) 10/13/16202210/14/16 0519 Coping/Psychosocial Plan Of Care Reviewed With patient -- Plan of Care Review Progress -- no change OUTCOME EVALUATION NOTE: OUTCOME SUMMARY: Patient reported 7/10 chest pain and pressure along with some SOB at start of shift. He stated that these symptoms had been ongoing for several hours. Abdomen firm and tender to palpation. Pt in NAD and VSS. Neurosurgery [employer] notified and at bedside to assess. Pt also had one episode of nausea, relievedby IV Zofran. Pt went to x-ray and was found to have ileus. Currently NPO and will start long prep for CT scan. He is anxious about moving his neck; soft cervical collar in place. Dressing C/D/I. Pt reports moderate pain control with PRN Tylenol and wants to avoid oxycodone. A&Ox4, neuro checks unchanged. Pt has baseline weakness in left side. Able to mobilize with cane. Voiding without difficulty. Had small BM. Telemetry Note: Patient remained on telemetry throughout shift per MD order. Reported one episode of CP, SOB, and nausea (see above note). Provider aware, no cardiac interventions ordered. Tele strips show SR/SB with rare PACs and PVCs, HR 55-80. Patient aware to notify RN if symptoms arise. Will continue to monitor via telemetry. PLAN MOVING FORWARD: Pain control Mobilize CT scan Monitor bowel function INDIVIDUALIZED FALL PREVENTION INTERVENTIONS: Patient-specific fall risk factors per assessment: [current deficits]: Recent surgery, left-sided weakness Assistance [level of assistance required for transfers and ambulation]: 4- pointed cane and 1-person assist Supervision [direct monitoring required during toileting and ADLs]: Hands on with ADLs Surveillance [continuous indirect monitoring]: Purposeful rounding, bed/chair alarm CPG GOAL OUTCOME EVALUATION: Goal: Fall Prevention-Safe Patient Handling Outcome: Ongoing (Interventions Implemented as Appropriate) 10/13/16 17010/13/16202210/13/162108 Musculoskeletal Interventions Muscle Strengthening activity/mobility promoted;mobility in bed promoted -- -- Activity and Safety Assistive Device -- -- Cane Daily Care Interventions Self-Care Promotion -- independence encouraged -- [place] Fall Risk History of Falling -- 25 -- Secondary Diagnosis -- 15 -- Ambulatory Aids -- 15 -- Intravenous Therapy/Heparin/Saline Lock -- 20 -- Gait/Transferring -- 10 -- Mental Status -- 0 -- Score -- 85 -- OTHER [place] Fall Risk -- High -- Restraint Interventions Safety Promotion/Fall Prevention -- activity supervised;fall prevention program maintained;nonskid shoes/slippers when out of bed;safety round/check completed -- Positioning Body Position -- up in chair -- Goal: Infection Control Outcome: Ongoing (Interventions Implemented as Appropriate) 10/13/162022 Safety Interventions Isolation Precautions standard precautions maintained Infection Prevention rest/sleep promoted;single patient room provided Coping Strategies Supportive Measures verbalization of feelings encouraged Problem: Pain, Acute (Adult) Goal: Identify Related Risk Factors and Signs and Symptoms Related risk factors and signs and symptoms are identified upon initiation of Human Response Clinical Practice Guideline (CPG) Outcome: Ongoing (Interventions Implemented as Appropriate) 10/13/16170610/14/16 0519 Pain, Acute Related Risk Factors (Acute Pain) surgery;fear -- Signs and Symptoms (Acute Pain) -- facial mask of pain/grimace;fatigue/weakness;guarding/abnormal posturing/positioning;moaning Goal: Acceptable Pain Control/Comfort Level Patient will demonstrate the desired outcomes by discharge/transition of care. Outcome: Ongoing (Interventions Implemented as Appropriate) 10/14/16 0519 Pain, Acute (Adult) Acceptable Pain Control/Comfort Level making progress toward outcome Patient Refusal of Care - Dior Santos APRN - 10/14/2016 3:45 AM EST Attempt to place NG Tube per general surgery recommendations. NGT in nare ~0.5cm and patient refusedto allow any more attempt at advancement. General surgery Dr. Daley aware and they will attempt to place. Consult Note - Desiree Shaver MD - 10/14/2016 1:[address] [facility] Department of Surgery Inpatient Consult Note Consultation Requested by: Lucio Bullard MD History of Present Illness: Miguel Pérez is a 61 y.o. male h/o TBI, Epilepsy, and STEMI with stent 09/18/2016, POD 1 s/p laminectomy decompression for cervical stenosis with T2 changes. Last night complained of nausea/abdominal distention, anterior chest pain, but no vomiting. AAS showed dilated air-filled loops of small and large bowel consistent with ileus without evidence of perforation. Surgery consulted to kenzie and treat his ileus REVIEW OF SYSTEMS: complete 10 system ROS performed with pertinent findings below. PMH/PSH: Past Medical History Diagnosis Date ??? CAD (coronary artery disease), [place] coronary artery ??? Epilepsy ??? GERD (gastroesophageal reflux disease) ??? ST elevation myocardial infarction (STEMI) involving left circumflex coronary artery in recoveryphase ??? TBI (traumatic brain injury) No past surgical history on file. Medications No current facility-administered medications on file prior to encounter. Current Outpatient Prescriptions on File Prior to Encounter Medication Sig Dispense Refill ??? hydrOXYzine (ATARAX) 25 mg Tablet Take 25 mg by mouth 3 times daily. ??? NITROSTAT 0.4 mg Tablet, Sublingual Place 0.4 mg under the tongue every 5 minutes as needed. ??? cyclobenzaprine (FLEXERIL) 5 mg Tablet Take 5 mg by mouth as needed. ??? meloxicam (MOBIC) 15 mg Tablet Take 15 mg by mouth daily. ??? phenytoin (DILANTIN KAPSEAL) 100 mg Capsule Take 1 capsule by mouth every morning, and 2 capsules every evening. Brand name only. 180 tablet 3 ??? atorvastatin (LIPITOR) 80 mg Tablet Take 1 tablet by mouth daily. 90 tablet 3 ??? lisinopril (PRINIVIL;ZESTRIL) 5 mg Tablet Take 1 tablet by mouth daily. 90 tablet 3 ??? citalopram (CELEXA) 40 mg tablet Take 1 tablet by mouth daily. 90 tablet 3 ??? fluticasone (FLONASE) 50 mcg/actuation nasal spray 1 spray by Nasal route as needed. ??? Levalbuterol Tartrate (XOPENEX HFA) 45 mcg/actuation inhaler Inhale 1-2 puffs into the lungs every 4 hours as needed. ??? traZODone (DESYREL) 100 mg tablet Take 200 mg by mouth nightly. ??? fluticasone (FLOVENT) 110 mcg/Actuation inhaler Inhale 1 puff into the lungs 2 times daily. 1 Inhaler 3 ??? omeprazole (PRILOSEC) 20 mg capsule Take 1 capsule by mouth daily. 30 capsule 3 ??? docusate sodium (COLACE) 100 mg capsule Take 100 mg by mouth daily. ??? aspirin 81 mg EC tablet Take 81 mg by mouth daily. Allergies Allergies Allergen Reactions ??? Abilify [Aripiprazole] Rash ??? Codeine Nausea And Vomiting and Rash ??? Oxycodone Rash Headache Family History: Family History Problem Relation Age of Onset ??? Lung Cancer Brother ??? Heart Disease Mother ??? Heart Disease Sister Social History: Social History Social History ??? Marital status: Spouse name: N/A ??? Number of children: N/A ??? Years of education: N/A Occupational History ??? Not on file. Social History Main Topics ??? Smoking status: Former Smoker Types: Cigarettes Quit date: 05/14/2008 ??? Smokeless tobacco: Never Used ??? Alcohol use No ??? Drug use: No ??? Sexual activity: Not on file Comment: deferred Other Topics Concern ??? Not on file Social History Narrative Physical Exam: Temp: [36.8 ??C (98.2 ??F)-37.1 ??C (98.8 ??F)] Heart Rate: -- Resp: [16-20] BP: (98-126)/(60-80) SpO2: [93 %-99 %] Heart Rate from SPO2: [60 bpm-77 bpm] Physical Exam GEN: awake, alert HEENT: anicteric sclera, MMM NECK: C-collar in place PULM: insp rhonchi in bases bilaterally CARD: RRR GI: distended, TTP throughout, voluntary guarding, no peritoneal signs MSK: no c/c/e DERM: warm, dry NEURO: oriented x 3, follows commands briskly Data independently reviewed: Recent Results (from the past 24 hour(s)) Cardiac Enzymes Result Value Ref Range Troponin-T <0.03 <=0.03 ng/mL CK, Total 742 (H) 0 - 200 unit/L Imaging: Xr Chest Pa & Lateral (generic)Result Date: 09/18/2016 FINDINGS: No focal consolidation the cardiomediastinal silhouette is unchanged. No large pleural effusions or pneumothorax.There has been recent right-sided thoracotomy with resection of RIGHT middle lobe carcinoid tumor. Impression: No acute cardiopulmonary findings. Xr Abdomen Flat & UprightResult Date: 10/13/2016 FINDINGS: Multiple dilated air-filled loops of small and large bowel with air- fluid level. No free intraperitoneal air. Image portion of the lung bases and mediastinal structures are unremarkable. No acute fractures. Impression: Dilated air-filled loops of small and large bowel consistent with ileus. No evidence of perforation. Impression: 61 y.o. male h/o TBI, Epilepsy, and STEMI with stent 09/18/2016, POD 1 s/p laminectomy decompression for cervical stenosis with T2 changes, now with ileus. Exam shows distended abdomen but no peritoneal. CT shows dilated small bowel. Patient is HDS, in no acute distress or vomiting. At this time there is no surgical indication. However,he will need an NG tube for small bowel decompression. With concerns for the possibility of perforation, we recommend: Recommendation: -NPO and IVFS -Check lytes -Will need CT abdomen -NG tube decompression of small bowel -Decrease narcotic use and alternate with tylenol -Surgery will follow Thank you for this consult. If you have any questions, please page [phone]. [X] Consult service to continue to follow [] Consult service to sign off Sera Daley MD 10/14/2016 General Surgery p.[phone] ADDENDUM: I have independently seen and evaluated the patient. I agree with the assessment and plan listed above with the following additions: Miguel Pérez is a 61 y.o. male POD1 cervical laminectomy. General surgery consult placed for abdominal distension and pain. Pt report pain first noted immediately after surgery. Unrelenting. Non radiating, non migrating. Reports nausea without emesis. Constipation without obstipation. ABD: distended. TTP throughout, tympanitic. No peritoneal signs, no rebound. Voluntary guarding. 1. Unclear if distension represents postoperative, narcotic induced ileus vs mechanical obstruction.Please obtain CT ABD/pelvis with long prep PO contrast and IV contrast for further evaluation 2. NPO, IVF 3. Consider NGT placement for bowel decompression if pain worsens or if emesis begins 4. Check and monitor electrolytes, decrease narcotic use as able 5. Will follow. DESIREE SHAVER MD Plan of Care - Dior Santos APRN - 10/13/2016 8:00 PM EST Called to evaluate patient for nausea/abdominal distention, anterior chest pain. Patient is not vomiting. Pt sitting in recliner in room. A&Ox3, in NAD. Complains of anterior chest wall pain with deep inspiration and with movement. Pain is reproducible on exam. Abdomen is distended and with generalized discomfort to palpation. Stat xray ordered. Dior Santos APRN Neurosurgery Pager [phone] Plan of Care - Alicia Mccarthy RN - 10/13/2016 5:22 PM EST Problem: Skin Integrity Impairment, Risk/Actual (Adult) Goal: Identify Related Risk Factors and Signs and Symptoms Related risk factors and signs and symptoms are identified upon initiation of Human Response Clinical Practice Guideline (CPG) Outcome: Ongoing (Interventions Implemented as Appropriate) 10/13/16 1707 Skin Integrity Impairment, Risk/Actual Skin Integrity Impairment, Risk/Actual: Related Risk Factors surgery/procedure Goal: Skin Integrity/Wound Healing Patient will demonstrate the desired outcomes by discharge/transition of care. Outcome: Ongoing (Interventions Implemented as Appropriate) 10/13/16 1707 Skin Integrity Impairment, Risk/Actual (Adult) Skin Integrity/Wound Healing making progress toward outcome Problem: Patient Care Overview Goal: Plan of Care Review Outcome: Ongoing (Interventions Implemented as Appropriate) 10/13/16 1707 Coping/Psychosocial Plan Of Care Reviewed With patient Plan of Care Review Progress improving OUTCOME EVALUATION NOTE: OUTCOME SUMMARY: Patient had chest pain this AM, see my note for more detail. Patient on tele. Patient voiding into urinal. Patient up in chair most of the day. Patients pain controlled with morphine, flexeril and gabapentin. Neuro checks Q 4. Patient encouraged to use IS throughout the shift. Will continue to monitor. PLAN MOVING FORWARD: -Pain Control -Mobilize -Cardiac monitoring INDIVIDUALIZED FALL PREVENTION: Fall Score: 65 - High Baseline mobility: up at josh with cane Assistance: -two person-assist with cane Supervision: -Hands-on for all transfers and ambulation Surveillance: -Bed Alarm/Chair Alarm -Purposeful Rounding -Team Care -Bedside Nurse Knowledge Exchange CPG OUTCOME EVALUATION: Goal: Individualization & Mutuality Outcome: Ongoing (Interventions Implemented as Appropriate) 10/13/161706 Mutuality/Individual Preferences What Anxieties, Fears or Concerns Do You Have About Your Health or Care? none What Questions Do You Have About Your Health or Care? none What Information Would Help Us Give You More Personalized Care? none Goal: Fall Prevention-Safe Patient Handling Outcome: Ongoing (Interventions Implemented as Appropriate) 10/13/1640 10/13/16 1200 10/13/161706 Musculoskeletal Interventions Muscle Strengthening -- -- activity/mobility promoted;mobility in bed promoted Activity and Safety Assistive Device -- -- Cane Daily Care Interventions Self-Care Promotion -- -- independence encouraged;BADL personal objects within reach [place] Fall Risk History of Falling 25 -- -- Secondary Diagnosis 15 -- -- Ambulatory Aids 15 -- -- Intravenous Therapy/Heparin/Saline Lock 0 -- -- Gait/Transferring 10 -- -- Mental Status 0 -- -- Score 65 -- -- OTHER [place] Fall Risk High -- -- Restraint Interventions Safety Promotion/Fall Prevention activity supervised;nonskid shoes/slippers when out of bed;safety round/check completed;fall prevention program maintained -- -- Positioning Body Position -- up in chair -- Goal: Infection Control Outcome: Ongoing (Interventions Implemented as Appropriate) 10/13/16739 Safety Interventions Isolation Precautions standard precautions maintained Infection Prevention rest/sleep promoted;single patient room provided Coping Strategies Supportive Measures active listening utilized;self-care encouraged;relaxation techniques promoted;verbalization of feelings encouraged Problem: Pain, Acute (Adult) Goal: Identify Related Risk Factors and Signs and Symptoms Related risk factors and signs and symptoms are identified upon initiation of Human Response Clinical Practice Guideline (CPG) Outcome: Ongoing (Interventions Implemented as Appropriate) 10/13/161706 Pain, Acute Related Risk Factors (Acute Pain) surgery;fear Goal: Acceptable Pain Control/Comfort Level Patient will demonstrate the desired outcomes by discharge/transition of care. Outcome: Ongoing (Interventions Implemented as Appropriate) 10/13/161706 Pain, Acute (Adult) Acceptable Pain Control/Comfort Level making progress toward outcome Initial Assessments - Elmer Braden RN - 10/13/2016 12:33 PM EST Office of Care Management Initial Assessment ELMER BRADEN RN reviewed record and discussed patient with Care Team. Source of Information: Patient Introduced self/reviewed role; services accepted. Reason for Hospitalization: Preoperative diagnosis: CERVICAL STENOSIS ?? Postoperative diagnosis: CERVICAL STENOSIS S/P C3-6 Laminectomy ?? Procedure(s): 10/12/16 LAMINECTOMY DECOMPRESSION > 2 SEGMENTS,CX Past Medical History Diagnosis Date ??? CAD (coronary artery disease), [place] coronary artery ??? Epilepsy ??? GERD (gastroesophageal reflux disease) ??? ST elevation myocardial infarction (STEMI) involving left circumflex coronary artery in recoveryphase ??? TBI (traumatic brain injury) No past surgical history on file. Hospitalizations Within the Past 30 Days: Discharged from [facility] on 09/19/16 for musculoskeletal chestpain. Anticipated Length Of Stay: Undetermined at this time. IPI order cosigned by Dr.Nathan Bullard on 10/12/16 @ 0952. Current Decision-Making Capacity: Patient alert and oriented; fully engaged during my visit. Advance Care Planning: Not on file in [facility]. I thought they were on file here. I'll ask my boy to bring a copy. Current Coping/Education/Information Needs: Coping effectively. No concerns verbalized regarding care received up to this time. Current Functional Ability: Sitting up in chair at bedside. Neurological checks Q 4hours; Continuous telemetry monitoring. Mobilizing as tolerated. Functional Status Prior to Admission: I've been using Mery's walker at home. I need one. I help her with her diaper. She helps me button my shirt. The nurse and physical therapists from [facility] comes twice a week. The aides come every day. Home Environment: Lives in [place], [place] with his Life Partner, Mery Gonzalez. Ramp to enter single level dwelling. Social & Family Supports/Community Resources: Emergency Contact 1 Emergency Contact 2 ? Dev Pérez (Child) [phone] (H) Mery Gonzalez (Life Partner) [phone] (H) Behavioral Health History: Pt reports that he has anxiety and depression and takes medication. Substance Use/Abuse: Former cigarette smoker, quit in 2007. No alcohol or illicit drug use. Other Pertinent/Service Specific Information: None Health/Prescription Coverage: Primary Insurance: MEDICARE PART A & B Secondary Insurance: None I am filing for intermediate manager Medicaid. Prescription Coverage: No Preferred Pharmacy: [id number] - [facility], [place] - [address] [facility] ? [address] [facility] [place] [address] ? Not a 24 hour pharmacy; exact hours not known Other: None Primary Care Provider: Aissatou Briggs, SANTOS [phone] Patient/Caregiver Goals of Treatment: To return home to his Life Partner. Potential Needs for Transition of Care: Rehab/SNF: I went to one in [place] one time. I can't remember the name. Home Health: Active with [facility] (RN, PT, OT, MEMBER SERVICE REPRESENTATIVE) DME: No home O2 at baseline. Needs a walker Dialysis: N/A Community Resources: None Transportation: Pt's confucianism friend Shady to transport the pt home. Mery can't drive. She has one leg. We help each other. The helping the , (pt laughed). Other: None Anticipated Barriers to Discharge/Special Considerations: None noted at this time. REFERRAL: [facility] PHONE: [phone] FAX: [phone] REFERRAL: [facility] Located @ [place], [place] Plan: A member of the Care Management team will continue to monitor progress, follow for continuity of care and assist with transition of care planning. ELMER BRADEN RN Pager: [phone] for today Plan of Care - Diaz Berkowitz RN - 10/13/2016 3:19 AM EST Problem: Skin Integrity Impairment, Risk/Actual (Adult) Goal: Identify Related Risk Factors and Signs and Symptoms Related risk factors and signs and symptoms are identified upon initiation of Human Response Clinical Practice Guideline (CPG) Outcome: Ongoing (Interventions Implemented as Appropriate) 10/12/16 1735 Skin Integrity Impairment, Risk/Actual Skin Integrity Impairment, Risk/Actual: Related Risk Factors surgery/procedure OUTCOME EVALUATION NOTE: OUTCOME SUMMARY: Pt alert and oriented. Lungs sounds exhibit consistent expiratory wheezes at baseline but is able tomaintain saturations. Pt was placed on 2 liters via nasal cannula for comfort. Pt complained of 8/10neck pain which was relieved with prn oxycodone. Pt has been repositioned in bed and has been able to void clear yellow urine. He continues to receive IV abx. PLAN MOVING FORWARD: Continue work with physical therapy and encourage cough and deep breathing. Continue to manage pain control INDIVIDUALIZED FALL PREVENTION INTERVENTIONS: Patient-specific fall risk factors per assessment: [current deficits]: Unsteady gait due to previousstroke Assistance [level of assistance required for transfers and ambulation]: 2 assist with use of walker Supervision [direct monitoring required during toileting and ADLs]: 1 assist with all ADL's as needed Surveillance [continuous indirect monitoring]: Masimo, hourly rounding Patient-specific fall prevention interventions for sensory deficits provided, if applicable: [X] Yes CPG GOAL OUTCOME EVALUATION: Goal: Skin Integrity/Wound Healing Patient will demonstrate the desired outcomes by discharge/transition of care. Outcome: Ongoing (Interventions Implemented as Appropriate) 10/12/16 1735 Skin Integrity Impairment, Risk/Actual (Adult) Skin Integrity/Wound Healing making progress toward outcome Problem: Patient Care Overview Goal: Plan of Care Review Outcome: Ongoing (Interventions Implemented as Appropriate) 10/12/16 1735 10/12/161999 Coping/Psychosocial Plan Of Care Reviewed With -- patient Plan of Care Review Progress improving -- Goal: Individualization & Mutuality Outcome: Ongoing (Interventions Implemented as Appropriate) 10/12/16 1735 10/12/161999 Individualization Patient Specific Preferences pain control -- Mutuality/Individual Preferences What Anxieties, Fears or Concerns Do You Have About Your Health or Care? -- none What Questions Do You Have About Your Health or Care? -- pain management What Information Would Help Us Give You More Personalized Care? -- none Goal: Fall Prevention-Safe Patient Handling Outcome: Ongoing (Interventions Implemented as Appropriate) 10/12/16 1100 10/12/16199910/13/16199 [place] Fall Risk History of Falling -- 25 -- Secondary Diagnosis -- 15 -- Ambulatory Aids -- 15 -- Intravenous Therapy/Heparin/Saline Lock -- 0 -- Gait/Transferring -- 10 -- Mental Status -- 0 -- Score -- 65 -- Activity and Safety Assistive Device None -- -- OTHER Cop[place] Fall Risk -- High -- Restraint Interventions Safety Promotion/Fall Prevention -- -- activity supervised;fall prevention program maintained;musclestrengthening facilitated;nonskid shoes/slippers when out of bed;safety round/check completed Positioning Body Position -- -- 30 degrees lateral position Goal: Infection Control Outcome: Ongoing (Interventions Implemented as Appropriate) 10/12/16199910/13/16199 Safety Interventions Isolation Precautions -- standard precautions maintained Infection Prevention -- environmental surveillance performed;equipment surfaces disinfected;personalprotective equipment utilized;rest/sleep promoted Coping Strategies Supportive Measures active listening utilized;counseling provided;decision- making supported;goal setting facilitated;positive reinforcement provided;problem solving facilitated;relaxation techniques promoted;self-care encouraged;self-reflection promoted;self-responsibility promoted;verbalization of feelings encouraged -- Goal: Discharge Needs Assessment Outcome: Ongoing (Interventions Implemented as Appropriate) 10/12/16173410/12/161999 Discharge Needs Assessment Concerns To Be Addressed no discharge needs identified -- Readmission Within The Last 30 Days no previous admission in last 30 days -- Current Health Anticipated Changes Related to Illness none -- Living Environment Transportation Available -- car;family or friend will provide Goal: Interdisciplinary Rounds/Family Conf Outcome: Ongoing (Interventions Implemented as Appropriate) 10/13/16 0300 Interdisciplinary Rounds/Family Conf Participants physical therapy;occupational therapy Problem: Pain, Acute (Adult) Goal: Identify Related Risk Factors and Signs and Symptoms Related risk factors and signs and symptoms are identified upon initiation of Human Response Clinical Practice Guideline (CPG) Outcome: Ongoing (Interventions Implemented as Appropriate) 10/12/16 173 Pain, Acute Related Risk Factors (Acute Pain) fear;patient perception Signs and Symptoms (Acute Pain) alteration in muscle tone Goal: Acceptable Pain Control/Comfort Level Patient will demonstrate the desired outcomes by discharge/transition of care. Outcome: Ongoing (Interventions Implemented as Appropriate) 10/12/16 1735 Pain, Acute (Adult) Acceptable Pain Control/Comfort Level making progress toward outcome Plan of Care - John St RN - 10/12/2016 5:44 PM EST Problem: Skin Integrity Impairment, Risk/Actual (Adult) Goal: Identify Related Risk Factors and Signs and Symptoms Related risk factors and signs and symptoms are identified upon initiation of Human Response Clinical Practice Guideline (CPG) Outcome: Ongoing (Interventions Implemented as Appropriate) 10/12/16 1735 Skin Integrity Impairment, Risk/Actual Skin Integrity Impairment, Risk/Actual: Related Risk Factors surgery/procedure Goal: Skin Integrity/Wound Healing Patient will demonstrate the desired outcomes by discharge/transition of care. Outcome: Ongoing (Interventions Implemented as Appropriate) 10/12/16 1735 Skin Integrity Impairment, Risk/Actual (Adult) Skin Integrity/Wound Healing making progress toward outcome Problem: Patient Care Overview Goal: Plan of Care Review Outcome: Ongoing (Interventions Implemented as Appropriate) 10/12/16 1735 Coping/Psychosocial Plan Of Care Reviewed With patient Plan of Care Review Progress improving Goal: Individualization & Mutuality Outcome: Ongoing (Interventions Implemented as Appropriate) 10/12/16 1735 Individualization Patient Specific Preferences pain control Mutuality/Individual Preferences What Questions Do You Have About Your Health or Care? Why does my neck hurt so bad? Goal: Discharge Needs Assessment Outcome: Ongoing (Interventions Implemented as Appropriate) 10/12/16 1735 Discharge Needs Assessment Concerns To Be Addressed no discharge needs identified Readmission Within The Last 30 Days no previous admission in last 30 days Current Health Anticipated Changes Related to Illness none Problem: Pain, Acute (Adult) Goal: Identify Related Risk Factors and Signs and Symptoms Related risk factors and signs and symptoms are identified upon initiation of Human Response Clinical Practice Guideline (CPG) Outcome: Ongoing (Interventions Implemented as Appropriate) 10/12/16 1735 Pain, Acute Related Risk Factors (Acute Pain) fear;patient perception Signs and Symptoms (Acute Pain) alteration in muscle tone Goal: Acceptable Pain Control/Comfort Level Patient will demonstrate the desired outcomes by discharge/transition of care. Outcome: Ongoing (Interventions Implemented as Appropriate) 10/12/16 1735 Pain, Acute (Adult) Acceptable Pain Control/Comfort Level making progress toward outcome OUTCOME EVALUATION NOTE: OUTCOME SUMMARY: Pt is alert/oriented x4, pt has some anxiety issues, would like to know why his neck hurts so bad?Pt is voiding in the urinal. Pt has IVF running along with ABX PLAN MOVING FORWARD: Pain control, INDIVIDUALIZED FALL PREVENTION INTERVENTIONS: Patient-specific fall risk factors per assessment: [current deficits]: Up with 1 asst Assistance [level of assistance required for transfers and ambulation]: Up with 1 asst Supervision [direct monitoring required during toileting and ADLs]: Up with 1 asst Surveillance [continuous indirect monitoring]: masimo and nursing rounds Patient-specific fall prevention interventions for sensory deficits provided, if applicable: [X] Yes CPG GOAL OUTCOME EVALUATION: Op Note - Lucio Bullard MD - 10/12/2016 9:52 AM EST [facility] Operative Note Patient Name: Miguel Pérez : [id number] MR#: [id number] Case Date: 10/12/2016 Surgeon: Surgeon(s) and Role: * Lucio Bullard MD - Primary * Beau Gonzalez MD - Resident-Surgeon Chief Preoperative diagnosis: CERVICAL STENOSIS Postoperative diagnosis: CERVICAL STENOSIS Procedure(s): LAMINECTOMY DECOMPRESSION > 2 SEGMENTS,CX Anesthesia: General Estimated Blood Loss: 100 mL BRIEF HISTORY: The patient is a 61-year-old male who was evaluated for left arm weakness. The patient was found to have cervical stenosis with T2 signal changes within the cord. The patient was preoped and received Cardiology and then brought to the operating room for definitive management. OPERATIVE REPORT: The patient was intubated and placed on the operating table in a prone position in 3 point Robles pin fixation. The back of the neck was prepped and draped in the usual sterile fashion. A midline incision was made and carried down through the subcutaneous tissues to the cervicodorsal fascia. The ligamentum nuchae was split and a subperiosteal dissection performed bilaterally. An intraoperative x-ray was taken confirming the appropriate levels. We then thinned out the lateral aspect of the laminae bilaterally at C4, 5 and 6, and undercut C3. Using Kerrison rongeurs, we completed the laminectomy and removed the lamina individually with the Leksell rongeur. The ligamentum flavum was removed at the C3-4 level as well as the C6-7 level. We extended the decompression laterally to the proximal takeoff of the nerve roots. No compressive forces were noted on the dura afterwards. The area was liberally irrigated and 0.5% Marcaine injected into the paravertebral musculature under irrigation. Meticulous hemostasis was obtained. The wound was closed in layered fashion and the patient transferred to the recovery room in stable condition. Attestation: Case Date: 10/12/2016 I was present and I participated during the entire procedure (does not need to include opening and closing). LUCIO BULLARD MD 10/12/2016\ documented in this encounter Plan of Treatment Upcoming Encounters Date Type Specialty Care Team Description 09/04/2022 Ancillary Procedure Radiology Aissatou Briggs, Berto velázquez (D-SCHED ERROR FEE CLERK / CORRECTION ) [address] [place] [address] (Wo rk) documented as of this encounter Procedures Procedure Name Priority Date/Time Associated Comments Diagnosis PRODUCTION WOOD CRAFTSMAN SCAN 10/16/2016 12:00 AM EST XR CHEST PA AND Routine 10/14/2016 10:49 Results for this LATERAL PM EST procedure are i n the results section. ELECTROLYTES PANEL Routine 10/14/2016 11:56 Resul ts for this AM EST procedure are i n the results section. CT ABDOMEN AND PELVIS Routine 10/14/2016 8:55 AM Results for this W CONTRAST EST procedure are i n the results section. XR ABDOMEN FLAT AND STAT 10/13/2016 9:49 PM Re sults for this UPRIGHT EST procedure are i n the results section. EKG 12-LEAD STAT 10/13/2016 10:08 Cervical stenosis Result s for this AM EST of spinal canal procedure ar e in the results section. CARDIAC ENZYMES STAT 10/13/2016 9:46 AM Result s for this ([facility] [place] [place] EST procedure are i n the results section. XR FLUORO NO RAD <1HR Routine 10/12/2016 9:46 AM Results for this - OR USE EST procedure are i n the results section. LAMINECTOMY 10/12/2016 7:31 AM CERVICAL STENOSIS DECOMPRESSION > 2 EST SEGMENTS,CX (WRVU 20.85) documented in this encounter Results SCAN DOC: PRODUCTION WOOD CRAFTSMAN (10/16/2016 12:00 AM EST) Narrative This result has an attachment that is no t available. Scanning Provider MEDIA MGR SCAN EXT ORDR/RSLT XR Chest PA & Lateral (Generic) (10/14/2016 10:49 PM EST) Anatomical Region Laterality Modality Chest N/A Digital Radiography Specimen (Source) Anatomical Location Collection Method / Collectio n Time Received Time / Laterality Volume Impressions 10/14/2016 11:06 PM EST No acute cardiopulmonary findings. Narrative 10/14/2016 11:06 PM EST EXAMINATION: XR CHEST PA AND LATERAL (GENERIC) CLINICAL HISTORY: productive cough TECHNIQUE: Frontal lateral views of the chest COMPARISON: Chest radiograph 09/18/2016 FINDINGS: No focal airspace opacity. The cardiomed iastinal silhouette is within normal limits. There are no pleural effusions o r pneumothorax. Procedure Note Tyler Sethi MD - 10/14/2016Formatti ng of this note might be different from the original. EXAMINATION: XR CHEST PA AND LATERAL (GE NERIC) CLINICAL HISTORY: productive cough TECHNIQUE: Frontal lateral views of the chest COMPARISON: Chest radiograph 09/18/2016 FINDINGS: No focal airspace opacity. The cardiomed iastinal silhouette is within normal limits. There are no pleural effusions o r pneumothorax. IMPRESSION No acute cardiopulmonary findings. Lucio Bullard MD IMG DX ORDERABLES (ABNORMAL) Electrolytes panel (10/14/2016 11:56 AM EST) P athologist Signature Sodium 134 (L) 135 - 145 [facility] mmol/L [facility] Potassium 4.3 3.5 - 5.0 [facility] mmol/L [facility] Comment: Please note: ??Patients with WBC >100,00 0 may have falsely elevated Potassium levels. ??For accurate Potassium quantif ication in these patients send serum separator tube (gold top) for subsequent determinations. ??Contact the Clinical Chemistry Laboratory if there are any qu estions. Chloride 98 98 - 107 mmol/L [facility] CO2 23 22 - 31 mmol/L [facility] Anion Gap 13 5 - 15 mmol/L LUISA Garcia [facility] Specimen Anatomical Collection Method Collection Time Receive d Time (Source) Location / / Volume Laterality Blood specimen 10/14/2016 11:56 6 (specimen) AM EST 12:10 PM EST Resulting Agency Comment Spec In Lab Lucio Bullard MD CHEMISTRY ORDERABLES Performing Organization Address City/State/[place] [address] Abdomen & Pelvis w Contrast (10/14/2016 8:55 AM EST) Anatomical Region Laterality Modality Abdomen, Pelvis Computed Tomography Specimen (Source) Anatomical Location Collection Method / Collectio n Time Received Time / Laterality Volume Impressions 10/14/2016 9:14 AM EST 1. ??No evidence of small bowel obstruction as the small bowel is nondilated and oral contrast reaches the colon. 2. ??The transverse colon is distended w ith gas up to 7 cm in maximum diameter. The descending and sigmoid colon are als o partially distended with gas but not to the same degree. No obvious obstructi ng lesions. Colonic areas of inflammation or abscess or other obvious causes of distal colonic obstruction are seen. Grace syndrome may also be c onsidered. Of note, there is a focal area of decompressed distal sigmoid colo n which is incompletely evaluated due to its degree of decompression. This could represent a transient peristalsis however a stricturing lesion cannot be e xcluded. I think a mass is less likely given the tobar appear relatively thin a t this level. Consider direct visualization with colonoscopy versus co ntrast enema. 3. ??Cholelithiasis without evidence of acute cholecystitis. 4. ??Trace bilateral pleural effusions. Narrative 10/14/2016 9:14 AM EST EXAMINATION: ??CT ABDOMEN AND PELVIS W CONTRAST CLINICAL HISTORY: ??eval for SBO, transi tion point vs ileus TECHNIQUE: Helical CT of the abdomen and pelvis was performed following the intravenous administration of contrast. 110 cc of Omnipaque 350 was given. ??Oral contrast was administered. COMPARISON: ??None FINDINGS: Chest base: ??There are trace bilateral pleural effusions. No pulmonary consolidation is present. The heart is b orderline large. The limited portion of the thoracic aorta and its visualized is nonaneurysmal. Liver: ??Normal size, no focal lesions Bile ducts: ??Nondilated Gallbladder: ??There is a small calcifie d gallstone which measures approximately 3 to 4 mm. No evidence of cholecystitis. Pancreas: ??Normal Spleen: ??Normal Adrenals: ??Normal Kidneys: ??Normal Lymph Nodes: ??No enlarged lymph nodes. Bowel: Oral contrast reaches the transve rse colon. No dilated loops of small bowel are present. No abnormal small bow el wall thickening is present. The appendix and terminal ileum are normal. The transverse colon is distended with gas with a maximum diameter up to 7 cm. Simple fluid and gas are present within the descending and sigmoid colon which a re distended but less dilated than the transverse colon. No focal areas of abno rmal wall thickening or areas of abnormal inflammation or stricturing are seen within the colon. There is a segment of decompressed distal sigmoid c olon which is incompletely evaluated. A moderate amount of stool is present with in the rectum. Peritoneum: No ascites or free air, no f luid collection. Vasculature: The abdominal aorta is ozzy neurysmal. There are a few scattered calcified atherosclerotic plaques. Urinary Bladder: Normal. Reproductive organs: Normal Bones: No suspicious lesions. Procedure Note Renzo Gallegos MD - 10/14/2016Form atting of this note might be different from the original. EXAMINATION: CT ABDOMEN AND PELVIS W CON TRAST CLINICAL HISTORY: eval for SBO, transiti on point vs ileus TECHNIQUE: Helical CT of the abdomen and pelvis was performed following the intravenous administration of contrast. 110 cc of Omnipaque 350 was given. Oral contrast was administered. COMPARISON: None FINDINGS: Chest base: There are trace bilateral pl eural effusions. No pulmonary consolidation is present. The heart is b orderline large. The limited portion of the thoracic aorta and its visualized is nonaneurysmal. Liver: Normal size, no focal lesions Bile ducts: Nondilated Gallbladder: There is a small calcified gallstone which measures approximately 3 to 4 mm. No evidence of cholecystitis. Pancreas: Normal Spleen: Normal Adrenals: Normal Kidneys: Normal Lymph Nodes: No enlarged lymph nodes. Bowel: Oral contrast reaches the transve rse colon. No dilated loops of small bowel are present. No abnormal small bow el wall thickening is present. The appendix and terminal ileum are normal. The transverse colon is distended with gas with a maximum diameter up to 7 cm. Simple fluid and gas are present within the descending and sigmoid colon which a re distended but less dilated than the transverse colon. No focal areas of abno rmal wall thickening or areas of abnormal inflammation or stricturing are seen within the colon. There is a segment of decompressed distal sigmoid c olon which is incompletely evaluated. A moderate amount of stool is present with in the rectum. Peritoneum: No ascites or free air, no f luid collection. Vasculature: The abdominal aorta is ozzy neurysmal. There are a few scattered calcified atherosclerotic plaques. Urinary Bladder: Normal. Reproductive organs: Normal Bones: No suspicious lesions. IMPRESSION 1. No evidence of small bowel obstructio n as the small bowel is nondilated and oral contrast reaches the colon. 2. The transverse colon is distended wit h gas up to 7 cm in maximum diameter. The descending and sigmoid colon are als o partially distended with gas but not to the same degree. No obvious obstructi ng lesions. Colonic areas of inflammation or abscess or other obvious causes of distal colonic obstruction are seen. Tendoy syndrome may also be c onsidered. Of note, there is a focal area of decompressed distal sigmoid colo n which is incompletely evaluated due to its degree of decompression. This could represent a transient peristalsis however a stricturing lesion cannot be e xcluded. I think a mass is less likely given the tobar appear relatively thin a t this level. Consider direct visualization with colonoscopy versus co ntrast enema. 3. Cholelithiasis without evidence of ac muscogee cholecystitis. 4. Trace bilateral pleural effusions. Lucio Bullard MD IMG CT ORDERABLES XR Abdomen Flat & Upright (10/13/2016 9:49 PM EST) Anatomical Region Laterality Modality Abdomen N/A Digital Radiography Specimen (Source) Anatomical Location Collection Method / Collectio n Time Received Time / Laterality Volume Impressions 10/13/2016 10:19 PM EST Dilated air-filled loops of small and large bowel consistent with ileus. No evidence of perforation. I have personally reviewed the image(s) and the residents interpretation and agree with the findings, TYLER SETHI at 10/13/2016 10:19 PM Narrative 10/13/2016 10:19 PM EST EXAMINATION: XR ABDOMEN FLAT AND UPRIGHT CLINICAL HISTORY: abdominal pain/distent ion/nausea TECHNIQUE: AP upright and supine abdomen COMPARISON: None FINDINGS: Multiple dilated air-filled loops of sma ll and large bowel with air-fluid level. No free intraperitoneal air. Image porti on of the lung bases and mediastinal structures are unremarkable. No acute fr actures. Procedure Note Tyler Sethi MD - 10/13/2016Formatti ng of this note might be different from the original. EXAMINATION: XR ABDOMEN FLAT AND UPRIGHT CLINICAL HISTORY: abdominal pain/distent ion/nausea TECHNIQUE: AP upright and supine abdomen COMPARISON: None FINDINGS: Multiple dilated air-filled loops of sma ll and large bowel with air-fluid level. No free intraperitoneal air. Image porti on of the lung bases and mediastinal structures are unremarkable. No acute fr actures. IMPRESSION Dilated air-filled loops of small and la rge bowel consistent with ileus. No evidence of perforation. I have personally reviewed the image(s) and the residents interpretation and agree with the findings, TYLER SETHI at 10/13/2016 10:19 PM Lucio Bullard MD IMG DX ORDERABLES EKG 12 Lead (10/13/2016 10:08 AM EST) Component Value Ref Range Test Analysis Performed Pathologis t Method Time At Signature Ventricular rate 70 BPM MUSE SYSTEM Atrial Rate 70 BPM MUSE SYSTEM P-R Interval 134 ms MUSE SYSTEM QRS Duration 80 ms MUSE SYSTEM Q-T Interval 390 ms MUSE SYSTEM QTC Calculated 421 ms MUSE SYSTEM (Bezet) Calculated P [place] 61 degrees MUSE SYSTEM Calculated R [place] 23 degrees MUSE SYSTEM Calculated T [place] -86 degrees MUSE SYSTEM INTERPRETATION Normal sinus rhythm MUSE SYSTEM Inferior infarct (cited on or before 18-SEP-2016) Nonspecific ST and T wave abnormality Lateral leads Nonspecific T wave abnormality Inferior leads Abnormal ECG When compared with ECG of 19-SEP-2016 08:06, QT has shortened I personally reviewed the tracing and edited the fellows int erpretation Confirmed by fellow MD Luís, Mery ([id number]) on 6 11:09:14 AM Confirmed by MD Suárez Gregory A. ([id number]) on 10/13/2016 5:29:17 PM Specimen Anatomical Collection Method Collection Time Receive d Time (Source) Location / / Volume Laterality 10/13/2016 10:08 10/13/2016 5:29 AM EST PM EST Lucio Bullard MD ECG ORDERABLES Performing Organization Address City/State/ZIP Code Phon e Number MUSE SYSTEM (ABNORMAL) Cardiac Enzymes (10/13/2016 9:46 AM EST) P athologist Signature Troponin-T <0.[address] [facility] ng/mL [facility] Comment: 0.03 ng/mL: Represents the 99th percenti le upper reference limit for normals. >0.03 ng/mL: Elevated cardiac troponin T level indicative of myocardial damage. Diagnosis of acute, evolving or recent M I requires a typical rise and gradual fall of cTnT with at least ONE of the fo llowing: a) Ischemic symptoms b) Development of pathologic Q waves on the ECG c) ECG changes indicative of eschemia (S -T segment elevation/depression) d) Coronary artery intervention Serial bloods should be obtained for flaco ting on admission, at 6 to 9 hrs and again at 12 to 24 hrs if earlier samples are negative and the clinical index of suspicion is high. Reference: [Myocardial infarction redefined? a consensus document of the [employer] Society of [employer] Committee for the redefinition of myocardial infarction. ? ?Journal of the [employer] 2000; 36: 959-969] CK, Total 742 (H) 0 - 200 unit/L [facility] Specimen Anatomical Collection Method Collection Time Receive d Time (Source) Location / / Volume Laterality Blood specimen 10/13/2016 9:46 AM 016 9:58 (specimen) EST AM EST Resulting Agency Comment Spec In Lab Lucio Bullard MD CHEMISTRY ORDERABLES Performing Organization Address City/[facility]/[place] [address] XR Fluoro No Rad <1Hr - OR Use (10/12/2016 9:46 AM EST) Specimen (Source) Anatomical Location Collection Method / Collectio n Time Received Time / Laterality Volume Narrative [facility] - 10/12/2016 9:46 AM EST This order does not need a radiologist i nterpretation. ?? Lucio Bullard MD IMG FLUORO ORDERABLES Performing Organization Address City/[facility]/ZIP Code Phon e Number [facility] RAD [place], [place] documented in this encounter Visit Diagnoses Not on filedocumented in this encounter Administered Medications Inactive Administered Medications - up to 3 most recent administrations Medication Order MAR Action Action Date Dose Rate Site acetaminophen (TYLENOL) suppository 650 mg 650 mg, Rectal, EVERY 4 HOURS PRN, Starting on Mon 10/16 at 1125, Until Madhuri 10/15/16 at 1728, Pain, mild pain, May r epeat once in 30 minutes if desired effect not achieved. Do not exceed 4000 mg acetaminophen per day., Routine acetaminophen (TYLENOL) tablet 650 mg Given 10/15/2016 12:05 PM EST 650 mg 650 mg, Oral, EVERY 4 HOURS PRN, Starting on 10/12/16 at 1125, Until Madhuri 10/15/16 at 1728, Pain, mild pain, May repeat once in 30 minutes if desired effect not achieved. Do not exceed 4000 mg acetaminophen per day., Routine Given 10/15/2016 6:52 AM EST 650 mg Given 10/14/2016 8:37 PM EST 650 mg aspirin chewable tablet 81 mg Given 10/15/2016 8:47 AM EST 81 mg 81 mg, Oral, DAILY, First dose on Wed10/14/16 at 0900, Until Discontinued, Routine Given 10/14/2016 8:29 AM EST 81 mg atorvastatin (LIPITOR) tablet 80 mg Given 10/14/2016 5:22 PM EST 80 mg 80 mg, Oral, EVERY EVENING, First dose on Wed10/12/16 at 1700, Until Discontinued, Routine Given 10/13/2016 4:43 PM EST 80 mg Given 10/12/2016 5:17 PM EST 80 mg bacitracin injection Given 10/12/2016 8:12 AM 10,000 Units 19- Surgi lavinia Site ONCE PRN, Starting on Mon EST 10/12/16 at 0812, Until Madhuri 10/15/16 at 1728, Intra-Operative (Intra-Procedure), Routine bisacodyl (DULCOLAX) suppository 10 mg 10 mg, Rectal, DAILY PRN, Starting on We d 10/14/16 at 0807, Until Madhuri 10/15/16 at 1728, Constipation, Routine BUpivacaine (PF) (MARCAINE) Given 10/12/2016 8:50 AM EST 20 mLs 19- Surgical Site 0.5 % (5 mg/mL) injection ONCE PRN, Starting on Wed10/12/16 at 0850, Until Madhuri 10/15/16 at 1728, Intra-Operative (Intra-Procedure), Routine BUpivacaine-EPINEPHrine 0.25 Given 10/12/2016 8:12 AM 10 mLs 19- Surgical Site %-1:200,000 injection EST ONCE PRN, Starting on Wed10/12/16 at 0812, Until Madhuri 10/15/16 at 1728, Intra-Operative (Intra-Procedure), Routine citalopram (CeleXA) tablet 40 mg Given 10/15/2016 8:48 AM EST 40 mg 40 mg, Oral, DAILY, First dose on Wed10/12/16 at 1230, Until Discontinued, Routine Given 10/14/2016 8:28 AM EST 40 mg Given 10/13/2016 9:27 AM EST 40 mg cyclobenzaprine (FLEXERIL) tablet 10 mg 10 mg, Oral, 3 TIMES DAILY PRN, Starting on Wed at 1500, Until Madhuri 10/15/16 at 1728, Muscle spasms, Routine famotidine (PEPCID) injection 20 mg 20 mg, Intravenous, EVERY 12 HOURS, First dose on Wed10/12/16 at 1200, Until Discontinued famotidine (PEPCID) tablet 20 mg Given 10/15/2016 12:05 PM EST 20 mg 20 mg, Oral, EVERY 12 HOURS, First dose on Wed10/12/16 at 1200, Until Discontinued, Routine Given 10/14/2016 11:31 PM EST 20 mg Given 10/14/2016 12:31 PM EST 20 mg gabapentin (NEURONTIN) capsule 300 mg Given 10/15/2016 3:08 PM EST 300 mg 300 mg, Oral, 2 TIMES DAILY, First dose on Wed10/13/16 at 0900, Until Discontinued, Routine Given 10/15/2016 8:48 AM EST 300 mg Given 10/14/2016 3:14 PM EST 300 mg gabapentin (NEURONTIN) capsule 600 mg Given 10/14/2016 8:37 PM EST 600 mg 600 mg, Oral, NIGHTLY, First dose on Wed10/12/16 at 2100, Until Discontinued, Routine Given 10/13/2016 8:23 PM EST 600 mg Given 10/12/2016 8:32 PM EST 600 mg gelatin adsorbable (GELFOAM) Given 10/12/2016 8:12 AM EST 1 each 19- Surgical Site sponge ONCE PRN, Starting on Wed10/12/16 at 0812, Until Wed10/15/16 at 1728, Intra-Operative (Intra-Procedure) guaiFENesin (ROBITUSSIN) 20 mg/mL liquid 10 Given 10/01 12:07 PM EST 10 mLs mL 10 mL (200 mg), Oral, EVERY 4 HOURS PRN, Starting on Wed10/14/16 at 2117, Until Wed10/15/16 at 1728, Cough, Maximum daily dose is 2400 mg, Routine Given 10/15/2016 6:52 AM EST 10 mLs Given 10/14/2016 9:50 PM EST 10 mLs hydrOXYzine (ATARAX) tablet 25 mg Given 10/14/2016 3:41 AM EST 25 mg 25 mg, Oral, 4 TIMES DAILY PRN, Starting on Wed10/12/16 at 1230, Until Wed10/15/16 at 1728, Anxiety, Routine Given 10/12/2016 4:11 PM EST 25 mg lamoTRIgine (LaMICtal) tablet 100 mg Given 10/15/2016 8:48 AM EST 100 mg 100 mg, Oral, DAILY, First dose (after last modification) on Wed10/13/16 at 0900, Until Discontinued, Routine Given 10/14/2016 8:28 AM EST 100 mg Given 10/13/2016 9:28 AM EST 100 mg lisinopril (PRINIVIL;ZESTRIL) tablet 5 m g Given 10/15/2016 8:50 AM EST 5 mg 5 mg, Oral, DAILY, First dose on Wed10/12/16 at 1230, Until Discontinued, Routine Given 10/14/2016 8:31 AM EST 5 mg Given 10/13/2016 9:28 AM EST 5 mg LORazepam (ATIVAN) injection 1 mg 1 mg, Intravenous, EVERY 4 HOURS PRN, 3 doses, Starting on Wed10/14/16 at 2116, Until Wed10/15/16 at 1728, Anxiety, Routine mometasone (ASMANEX) aerosol 1 puff Given 10/14/2016 8:38 PM EST 1 puff 1 puff (220 mcg), Inhalation, NIGHTLY, First dose on Wed10/12/16 at 2100, Until Discontinued, Therapeutic substitution from patient's Flovent inhaler per hospital policy., Routine Given 10/13/2016 8:24 PM EST 1 puff Given 10/12/2016 8:33 PM EST 1 puff nitroGLYcerin (NITROSTAT) SL tablet 0.4 mg Given 10/13/2016 9:57 AM EST 0.4 mg 0.4 mg, Sublingual, EVERY 5 MIN PRN, Chest pain, Starting on Tu10/13/16 at 0941, Until Madhuri 10/15/16 at 1728, SL nitroglycerin may be repeated every 5 minutes as needed up to 3 doses Given 10/13/2016 9:49 AM EST 0.4 mg ondansetron (ZOFRAN) injection 4 mg Given 10/13/2016 7:46 PM EST 4 mg 4 mg, Intravenous, EVERY 8 HOURS PRN, Starting on 10/12/16 at 1125, Until Madhuri 10/15/16 at 1728, Nausea, Vomiting, May repeat times one in 30 minutes if ineffective. If multiple antiemetics are ordered, use ondansetron first, prochlorperazine second, and metoclopramide third. ondansetron (ZOFRAN-ODT) oral disintegra ting tablet 4 mg 4 mg, Oral, EVERY 8 HOURS PRN, Starting on Wed10/12/16 at 1125, Until Madhuri 10/15/16 at 1728, Nausea, May repeat in 30 minutes if ineffecti ve. If multiple antiemetics are ordered, use ondansetron first, prochl orperazine second, and metaclopramide third., Routine oxyCODONE (ROXICODONE) immediate release Given 10/15/2016 2:35 P M EST 10 mg tablet 10 mg 10 mg, Oral, EVERY 4 HOURS PRN, Starting on Wed10/12/16 at 1041, Until Madhuri 10/15/16 at 1728, Pain, severe pain (7-10), May give an additional 5 mg in 30 minutes once if pain not relieved., Routine Given 10/15/2016 10:07 AM EST 10 mg Given 10/14/2016 8:37 PM EST 10 mg oxyCODONE (ROXICODONE) immediate release tablet Given 10/14/2016 8:29 AM EST 5 mg 5 mg 5 mg, Oral, EVERY 4 HOURS PRN, Starting on Wed10/12/16 at 1041, Until Madhuri 10/15/16 at 1728, Pain, mild to moderate pain (1-6), May give an additional 5 mg in 30 minutes once if pain not relieved., Routine phenytoin (DILANTIN) chewable tablet 100 mg Given 10/15/2016 6:52 AM EST 100 mg 100 mg, Oral, EVERY MORNING, First dose on Wed10/12/16 at 1230, Until Discontinued, Routine Given 10/14/2016 7:00 AM EST 100 mg Given 10/13/2016 6:17 AM EST 100 mg phenytoin (DILANTIN) chewable tablet 200 mg Given 10/14/2016 5:22 PM EST 200 mg 200 mg, Oral, EVERY EVENING, First dose on Wed10/12/16 at 1700, Until Discontinued, Routine Given 10/13/2016 4:43 PM EST 200 mg Given 10/12/2016 5:17 PM EST 200 mg thrombin (Bovine) Given 10/12/2016 8:19 AM 5,000 Units 19- Surgical Site (THROMBINAR) kit EST ONCE PRN, Starting on Wed10/12/16 at 0819, Until Madhuri 10/15/16 at 1728, Intra-Operative (Intra-Procedure) traZODone (DESYREL) tablet 200 mg 200 mg, Oral, NIGHTLY PRN, Starting on M on 10/12/16 at 1221, Until Madhuri 10/15/16 at 1728, Sleep, Routine documented in this encounter Active and Recently Administered Medications Times are shown in EST. Scheduled Medication Order 10/13/2016 10/14/2016 10/15/2016 aspirin chewable tablet 81 mg 0829 (Given - Prov ider: Alicia Mccarthy RN) 0847 (Given - Provider: Mary Gutierrez, TRES) 81 mg, Oral, DAILY, First dose on Wed at 0900, Until Discontinued, Routine aspirin tablet 325 mg (CANCELED) 1003 (Given - Provider: Alicia Mccarthy RN) 325 mg, Oral, DAILY, First dose on Wed12/14/15 at 1000, Until Discontinued, STAT atorvastatin (LIPITOR) tablet 80 mg 1643 (Given - Prov ider: Alicia Mccarthy RN) 1722 (Given - Provider: Alicia Mccarthy RN) 80 mg, Oral, EVERY EVENING, First dose o n Wed10/12/16 at 1700, Until Discontinued, Routine ceFAZolin (ANCEF) 1g in dextrose 5% 50mL (COMPLETED) 0 000 (Given - Provider: Diaz Berkowitz RN)0400 (Given - Provider: Diaz Berkowitz RN) 1,000 mg (1 g), Intravenous, EVERY 8 KIESHA RS, 3 doses, First dose on Wed10/12/16 at 1100, Last dose on Wed10/13/16 at 0300, Administer over 30 Minutes, Recovery (Recovery-Hospital Unit), Indication for (Active or Suspected): Prophylaxis citalopram (CeleXA) tablet 40 mg 0927 (Given - Provider: Destinee Dong RN) 0828 (Given - Provider: Alicia Mccarthy RN) 0848 (Given - Provider: Mary Gutierrez RN) 40 mg, Oral, DAILY, First dose on Wed at 1230, Until Discontinued, Routine cyclobenzaprine (FLEXERIL) tablet 10 mg (CANCELED) 100 2 (Given - Provider: Kim Dong RN)1520 (Given - Provider: Alicia Mccarthy RN)202 (Given - Provider: Alicia Juarez RN) 0829 (Given - Provider: Alicia Mccarthy RN)1514 (Given - Provider: Alicia Mccarthy, TRES)203 (Given - Provider: Alicia Juarez RN) 0849 (Given - Provider: Mary dietz RN) 10 mg, Oral, 3 TIMES DAILY, First dose o n Wed10/13/16 at 0915, Until Discontinued, Routine famotidine (PEPCID) injection 20 mg(Linked Group 1) 00 31 (See Alternative - Provider: Diaz Berkowitz RN)1255 (See Alternative - Provider: Alicia Mccarthy RN) 0056 (See Alternative - Provider: Alicia Juarez, TRES)1231 (See Alternative - Provider: Alicia Mccarthy RN)2331 (See Alternative - Provider: Alicia Juarez RN) 1205 (See Alternative - Provider: Cyndi Gutierrez RN) 20 mg, Intravenous, EVERY 12 HOURS, Firs t dose on Wed10/12/16 at 1200, Until Discontinued famotidine (PEPCID) tablet 20 mg(Linked Group 1) 0031 (Given - Provider: Diaz Berkowitz RN)1255 (Given - Provider: Alicia Mccarthy RN) 0056 (Given - Provider: Alicia Juarez RN)1231 (Given - Provider: Alicia Mccarthy RN)2331 (Given - Provider: Alicia Juarez RN) 1205 (Given - Provider: Mary Gutierrez RN) 20 mg, Oral, EVERY 12 HOURS, First dose on Wed10/12/16 at 1200, Until Discontinued, Routine gabapentin (NEURONTIN) capsule 300 mg(Linked Group 2) 0932 (Given - Provider: Kim Dong RN)1520 (Given - Provider: Alicia Mccarthy RN) 0829 (Given - Provider: Alicia Mccartyh RN)1514 (Given - Provider: Alicia Mccarthy RN) 0848 (Given - Provider: Mary Gutierrez RN)1508 (Given - Provider: Mary Gutierrez RN) 300 mg, Oral, 2 TIMES DAILY, First dose on Wed10/13/16 at 0900, Until Discontinued, Routine gabapentin (NEURONTIN) capsule 600 mg(Linked Group 2) 2022 (Given - Provider: Alicia Juarez RN) 2036 (Given - Provider: Alicia Juarez RN) 600 mg, Oral, NIGHTLY, First dose on Wed10/12/16 at 2100, Until Discontinued, Routine iohexol (OMNIPAQUE) radiology oral prep (50 mL of oral contr ast) (COMPLETED) 0630 (Given - Provider: Alicia Juarez RN - Comment: All portable computers with scanners currently not working.) 240 mL, Oral, ONCE, 1 dose, Wed10/14/16 at 0630, 8 ounce cup = 240 mL of contrast 3 hours before scan as tolerated. The patient should not eat food or drink any other liquids during the entire period i n which they are drinking the contrast. Mix 1 bottle (50 mL) of Omnipaque 350 with 1 liter (1,000 mL) non-carbonated beverage (preferably water). Close cover and shake vigorously and then refrigerate, i f desired. Dispose of any excess prepara tion in a sink. Properly dispose of container., Routine iohexol (OMNIPAQUE) radiology oral prep (50 mL of oral contr ast) (COMPLETED) 07 (Given - Provider: Alicia Juarez RN) 240 mL, Oral, ONCE, 1 dose, Wed10/14/16 at 0730, 8 ounce cup = 240 mL of contrast 2 hours before scan as tolerated. The patient should not eat food or drink any other liquids during the entire period i n which they are drinking the contrast. Mix 1 bottle (50 mL) of Omnipaque 350 with 1 liter (1,000 mL) non-carbonated beverage (preferably water). Close cover and shake vigorously and then refrigerate, i f desired. Dispose of any excess prepara tion in a sink. Properly dispose of container., Routine iohexol (OMNIPAQUE) radiology oral prep (50 mL of oral contr ast) (COMPLETED) 08 (Given - Provider: Alicia Mccarthy RN) 240 mL, Oral, ONCE, 1 dose, Wed10/14/16 at 0830, 8 ounce cup = 240 mL of contrast 1 hours before scan as tolerated. The patient should not eat food or drink any other liquids during the entire period i n which they are drinking the contrast. Mix 1 bottle (50 mL) of Omnipaque 350 with 1 liter (1,000 mL) non-carbonated beverage (preferably water). Close cover and shake vigorously and then refrigerate, i f desired. Dispose of any excess prepara tion in a sink. Properly dispose of container., Routine iohexol (OMNIPAQUE) radiology oral prep (50 mL of oral contr ast) (COMPLETED) 09 (Given - Provider: Alicia Mccarthy RN) 240 mL, Oral, ONCE, 1 dose, Wed10/14/16 at 0900, 8 ounce cup = 240 mL of contrast 20 minutes before scan as tolerated. The patient should not eat food or drink any other liquids during the entire perio d in which they are drinking the contras t. Mix 1 bottle (50 mL) of Omnipaque 350 with 1 liter (1,000 mL) non-carbonated beverage (preferably water). Close cover and shake vigorously and then refrigerate , if desired. Dispose of any excess prep aration in a sink. Properly dispose of container., Routine lamoTRIgine (LaMICtal) tablet 100 mg 0928 (Given - Provider: Kim Dong RN) 0828 (Given - Provider: Alicia Mccarthy RN) 0848 (Given - Provider: Mary Gutierrez, TRES) 100 mg, Oral, DAILY, First dose on Wed12/14/15 at 0900, Until Discontinued, Routine lisinopril (PRINIVIL;ZESTRIL) tablet 5 mg 0928 (Given - Provider: Kim Dong RN) 0831 (Given - Provider: Alicia Mccarthy, TRES) 0850 (Giv en - Provider: Mary Gutierrez RN - Comment: BP: 109/68) 5 mg, Oral, DAILY, First dose on 10/16 at 1230, Until Discontinued, Routine mometasone (ASMANEX) aerosol 1 puff 2023 (Given - Prov ider: Alicia Juarez RN) 2037 (Given - Provider: Alicia Juarez RN) 1 puff (220 mcg), Inhalation, NIGHTLY, F irst dose on Wed10/12/16 at 2100, Until Discontinued, Therapeutic substitution from patient's Flovent inhaler per hospital policy., Routine phenytoin (DILANTIN) chewable tablet 100 mg(Linked Ksenia up 3) 0617 (Given - Provider: Diaz Berkowitz RN) 0700 (Given - Provider: Alicia Juarez RN) 0652 (Given - Provider: Alicia Juarez RN) 100 mg, Oral, EVERY MORNING, First dose on Wed10/12/16 at 1230, Until Discontinued, Routine phenytoin (DILANTIN) chewable tablet 200 mg(Linked Ksenia up 3) 1643 (Given - Provider: Alicia Mccarthy RN) 1722 (Given - Provider: Alicia Mccarthy RN) 200 mg, Oral, EVERY EVENING, First dose on Wed10/12/16 at 1700, Until Discontinued, Routine sodium chloride 0.9 % flush 5 mL (CANCELED) 0900 (Give n - Provider: Kim Dong RN) 5 mL, Intravenous, 2 TIMES DAILY, First dose on Wed10/12/16 at 1145, Until Discontinued, Recovery (Recovery-Hospital Unit), Routine PRN Medication Order 10/13/2016 10/14/2016 10/15/2016 acetaminophen (TYLENOL) suppository 650 mg(Linked Grou p 4) 2022 (See Alternative - Provider: Alicia Juarez RN) 033 (See Alternative - Provider: Cam Rebollar, TRES)2036 (See Alternative - Provider: Alicia Juarez RN) 0652 (See Alternative - Provider: Alicia Juarez RN)1205 (See Alternative - Provider: Mary Gutierrez, TRES) 650 mg, Rectal, EVERY 4 HOURS PRN, Start ing Wed10/12/16 at 1125, Until Madhuri 10/15/16 at 1728, Pain, mild pain, May repeat once in 30 minutes if desired effect not achieved. Do not exceed 4000 mg acetaminophen per day., Routine acetaminophen (TYLENOL) tablet 650 mg(Linked Group 4) 2022 (Given - Provider: Alicia Juarez RN) 033 (Given - Provider: Bibi carrera RN)2036 (Given - Provider: Alicia Juarez RN) 0652 (Given - Provider: Alicia Juarez RN)1205 (Given - Provider: Mary Gutierrez, TRES) 650 mg, Oral, EVERY 4 HOURS PRN, Startin g Wed10/12/16 at 1125, Until Madhuri 10/15/16 at 1728, Pain, mild pain, May repeat once in 30 minutes if desired effect not achieved. Do not exceed 4000 mg acetaminophen per day., Routine bisacodyl (DULCOLAX) suppository 10 mg 10 mg, Rectal, DAILY PRN, Starting Wed12/15/15 at 0807, Until Madhuri 10/15/16 at 1728, Constipation, Routine cyclobenzaprine (FLEXERIL) tablet 10 mg 10 mg, Oral, 3 TIMES DAILY PRN, Starting Madhuri 10/15/16 at 1500, Until Madhuri 10/15/16 at 1728, Muscle spasms, Routine guaiFENesin (ROBITUSSIN) 20 mg/mL liquid 10 mL 2150 (Given - Provider: Alicia Juarez RN) 0652 (Given - Provider: Alicia dahl, TRES)1207 (Given - Provider: Mary Gutierrez RN) 10 mL (200 mg), Oral, EVERY 4 HOURS PRN, Starting Wed10/14/16 at 2117, Until Madhuri 10/15/16 at 1728, Cough, Maximum daily dose is 2400 mg, Routine hydrALAZINE (APRESOLINE) injection 10 mg 10 mg, Intravenous, EVERY 2 HOURS PRN, S tarting Wed10/12/16 at 1125, Until Madhuri 10/15/16 at 1728, High Blood Pressure, For SBP greater than 160 mmHg. May repeat once in 15 minutes if blood pressure cathi ins greater than 160 mmHg.Use if labetolo ineffective after 2 do ses., Routine hydrOXYzine (ATARAX) tablet 25 mg 0341 ( Given - Provider: Bibi Rebollar RN) 25 mg, Oral, 4 TIMES DAILY PRN, Starting Wed10/12/16 at 1230, Until Madhuri 10/15/16 at 1728, Anxiety, Routine iohexol (OMNIPAQUE) 350 mg/mL solution 38,500 mg (COMPLETED) 0851 (Given - Provider: Dia Caballero) 38,500 mg (110 mL), Intravenous, ONCE NJ N, 1 dose, Starting Wed10/14/16 at 0850, Until Wed10/14/16 at 0851, Per Protocol, Warning Vesicant/Irritant Medication , Routine labetalol (NORMODYNE,TRANDATE) injection 20 mg 20 mg, Intravenous, EVERY 2 HOURS PRN, S tarting Wed10/12/16 at 1125, Until Madhuri 10/15/16 at 1728, High Blood Pressure, For SBP greater than 160 mmHg. May repeat once in 15 minutes if blood pressure remains greater than 160 mmHg., Routine LORazepam (ATIVAN) injection 1 mg 1 mg, Intravenous, EVERY 4 HOURS PRN, 3 doses, Starting Wed10/14/16 at 2116, Until Madhuri 10/15/16 at 1728, Anxiety, Routine morphine 10 mg/mL carpuject 5 mg (CANCELED) 1002 (Give n - Provider: Kim Dong RN) 5 mg, Intravenous, EVERY 1 HOUR PRN, Sta rting Wed10/13/16 at 0943, Until Madhuri 10/15/16 at 1019, chest pain, Routine nitroGLYcerin (NITROSTAT) SL tablet 0.4 mg 0949 (Given - Provider: Alicia Mccarthy, TRES)0957 (Given - Provider: Alicia Mccarthy RN) 0.4 mg, Sublingual, EVERY 5 MIN PRN, Sta rting Wed10/13/16 at 0941, Until Madhuri 10/15/16 at 1728, Chest pain, SL nitroglycerin may be repeated every 5 minutes as needed up to 3 doses, STAT ondansetron (ZOFRAN) injection 4 mg(Linked Group 5) 19 (Given - Provider: Alicia Juarez RN) 4 mg, Intravenous, EVERY 8 HOURS PRN, St arting 10/12/16 at 1125, Until Madhuri 10/15/16 at 1728, Nausea, Vomiting, May repeat times one in 30 minutes if ineffective. If multiple antiemetics are ordere d, use ondansetron first, prochlorperazine second, and metoc lopramide third. ondansetron (ZOFRAN-ODT) oral disintegrating tablet 4 mg(Linked Group 5) 1945 (See Alternative - Provider: Alicia Juarez RN) 4 mg, Oral, EVERY 8 HOURS PRN, Starting 10/12/16 at 1125, Until Madhuri 10/15/16 at 1728, Nausea, May repeat in 30 minutes if ineffective. If multiple antiemetics are ordered, use ondansetron first, prochlorperazine second, and metaclopramide third., Routine oxyCODONE (ROXICODONE) immediate release tablet 10 mg( Linked Group 6) 003 (Given - Provider: Diaz Berkowitz RN)041 (Given - Provider: Diaz Berkowitz RN) 0829 (See Alternative - Provider: Alicia Mccarthy RN)123 (Given - Provider: Alicia Mccarthy RN)2036 (Given - Provider: Alicia Juarez RN) 1007 (Given - Provider: Mary Gutierrez RN)1435 (Given - Provider: Mary Gutierrez RN) 10 mg, Oral, EVERY 4 HOURS PRN, Starting 10/12/16 at 1041, Until Madhuri 10/15/16 at 1728, Pain, severe pain (7-10), May give an additional 5 mg in 30 minutes once if pain not relieved., Routine oxyCODONE (ROXICODONE) immediate release tablet 5 mg(L inked Group 6) 0031 (See Alternative - Provider: Diaz Berkowitz RN)0413 (See Alternative - Provider: Diaz Berkowitz RN) 0829 (Given - Provider: Alicia Mccarthy RN)1232 (See Alternative - Provider: Alicia Mccarthy RN)2037 (See Alternative - Provider: Alicia Juarez RN) 1007 (See Alternative - Provider: Cyndi Gutierrez RN)1435 (See Alternative - Provider: Mary Gutierrez RN) 5 mg, Oral, EVERY 4 HOURS PRN, Starting 10/12/16 at 1041, Until Madhuri 10/15/16 at 1728, Pain, mild to moderate pain (1-6), May give an additional 5 mg in 30 minutes once if pain not relieved., Routine traZODone (DESYREL) tablet 200 mg 200 mg, Oral, NIGHTLY PRN, Starting Wed10/12/16 at 1221, Until Madhuri 10/15/16 at 1728, Sleep, Routine Linked Groups Order Group 1: famotidine (PEPCID) tablet 20 mgJump to med 20 mg, Oral, EVERY 12 HOURS, First dose on Wed10/12/16 at 1200, Until Discontinued, Routine Or famotidine (PEPCID) injection 20 mgJump to med 20 mg, Intravenous, EVERY 12 HOURS, Firs t dose on Wed10/12/16 at 1200, Until Discontinued Group 2: gabapentin (NEURONTIN) capsule 300 mgJump to med 300 mg, Oral, 2 TIMES DAILY, First dose on Wed10/13/16 at 0900, Until Discontinued, Routine And gabapentin (NEURONTIN) capsule 600 mgJump to med 600 mg, Oral, NIGHTLY, First dose on Wed10/12/16 at 2100, Until Discontinued, Routine Group 3: phenytoin (DILANTIN) chewable tablet 100 mgJump to med 100 mg, Oral, EVERY MORNING, First dose on Wed10/12/16 at 1230, Until Discontinued, Routine And phenytoin (DILANTIN) chewable tablet 200 mgJump to med 200 mg, Oral, EVERY EVENING, First dose on Wed10/12/16 at 1700, Until Discontinued, Routine Group 4: acetaminophen (TYLENOL) tablet 650 mgJump to med 650 mg, Oral, EVERY 4 HOURS PRN, Startin g Wed10/12/16 at 1125, Until Madhuri 10/15/16 at 1728, Pain, mild pain
May repeat once in 30 minutes if desired effect not achieved. Do not exceed 4000 mg acetaminophen per day.
Routine Or acetaminophen (TYLENOL) suppository 650 mgJump to med 650 mg, Rectal, EVERY 4 HOURS PRN, Start ing Wed10/12/16 at 1125, Until Madhuri 10/15/16 at 1728, Pain, mild pain
May repeat once in 30 minutes if desired effect not achieved. Do not exceed 4000 mg acetaminophen per day.
Routine Group 5: ondansetron (ZOFRAN-ODT) oral disintegrating tablet 4 mgJump to med 4 mg, Oral, EVERY 8 HOURS PRN, Starting Wed10/12/16 at 1125, Until Madhuri 10/15/16 at 1728, Nausea
May repeat in 30 minutes if ineffective. If multiple antiemetics are ordered, use on dansetron first, prochlorperazine second , and metaclopramide third.
Routine Or ondansetron (ZOFRAN) injection 4 mgJump to med 4 mg, Intravenous, EVERY 8 HOURS PRN, St arting Wed10/12/16 at 1125, Until Madhuri 10/15/16 at 1728, Nausea, Vomiting
May repeat times one in 30 minutes if ineffective. If multiple antie metics are ordered, use ondansetron firs t, prochlorperazine second, and metoclopramide third.
Group 6: oxyCODONE (ROXICODONE) immediate release tablet 5 mgJump to med 5 mg, Oral, EVERY 4 HOURS PRN, Starting 10/12/16 at 1041, Until Madhuri 10/15/16 at 1728, Pain, mild to moderate pain (1-6)
May give an additional 5 mg in 30 minutes once if pain not relieved.
Routine Or oxyCODONE (ROXICODONE) immediate release tablet 10 mgJump to med 10 mg, Oral, EVERY 4 HOURS PRN, Starting 10/12/16 at 1041, Until Madhuri 10/15/16 at 1728, Pain, severe pain (7-10)
May give an additional 5 mg in 30 minutes once if pain not relieved.
Routine documented in this encounter Care Teams Powder Hand Relationship Specialty Start Date End Date Aissatou Briggs APRN PCP - General Internal Medicine 07/29/[address] [place] [address] documented as of this encounter
--- OUTSIDE RECORDS SUMMARY | 2022-08-15 01:34 | XMS_ITS | Encounter Summary ---
:1955 Author Organization [facility] [place] [address] Care Team Providers Name Role Phone Aissatou Briggs APRN Primary Care Provider Encounter Details Date Type Department Care Team Description 07/27/2018 Telephone Dermatology at [facility] Gissell Cameron LPN [address] [place] [address] Social History Tobacco Use Types Packs/Day Years Used Date Former Smoker Cigarettes Quit: 05/14/20 08 Smokeless Tobacco: Never Used Alcohol Use Standard Drinks/Week Comments No 0 (1 standard drink = 0.6 oz pure alcoho l) Sex Assigned at Date Recorded Not on file documented as of this encounter Miscellaneous Notes Telephone Encounter - Gissell Cameron LPN - 07/27/2018 2:50 PM EDT Tereza called from [facility] and states that Miguel called asking for help with his supplies to cover his wound. Tereza needed directions and clarification as to what is needed. I told her he needs to continue bandaging, ok to use Triamcinolone on the lesion on the right leg. He can use a bandaid or he can use a Telfa with a guaze wrap. The AVS was faxed to at her request. documented in this encounter Plan of Treatment Upcoming Encounters Date Type Specialty Care Team Description 09/04/2022 Ancillary Procedure Radiology Aissatou Briggs Canc eled (D-SCHED ERROR CONTINUOUS MINING MACHINE LODE MINER / CORRECTION ) [address] [place], [place] [id number] (Wo rk) documented as of this encounter Visit Diagnoses Not on filedocumented in this encounter Care Teams Clinical Informatics Physician Relationship Specialty Start Date End Date Aissatou Briggs, CONTINUOUS MINING MACHINE LODE MINER PCP - General Internal Medicine 07/29/[address] [place], [place] [id number] documented as of this encounter
--- OUTSIDE RECORDS SUMMARY | 2022-08-15 01:34 | XMS_ITS | Encounter Summary ---
:1955 Author Organization [facility] Address [address] [place] [address] Care Team Providers Name Role Phone Aissatou Briggs APRN Primary Care Provider Reason for Visit Reason Comments Follow-up Encounter Details Date Type Department Care Team Description 12/08/2016 Office Visit Neurosurgery at [facility] Hua Bullard Osteoarthritis of [facility] MD Pro cervical spine with [place] [address] [place] [address] [place] [address] Social History Tobacco Use Types Packs/Day Years Used Date Former Smoker Cigarettes Quit: 05/14/20 08 Smokeless Tobacco: Never Used Alcohol Use Standard Drinks/Week Comments No 0 (1 standard drink = 0.6 oz pure alcoho l) Sex Assigned at Date Recorded Not on file documented as of this encounter Last Filed Vital Signs Vital Sign Reading Time Taken Comments Blood Pressure 122/64 12/08/2016 10:16 AM EST Pulse 70 12/08/2016 10:16 AM EST Temperature - - Respiratory Rate - - Oxygen Saturation - - Inhaled Oxygen Concentration - - Weight 59.4 kg (131 lb) 12/08/2016 10:16 AM EST Height 162.6 cm (5' 4) 12/08/2016 10:16 AM EST Body Mass Index 22.49 12/08/2016 10:16 AM EST documented in this encounter Progress Notes Hua Bullard MD - 12/08/2016 10:30 AM EST I am just seeing Mr. Pérez in followup. He is a 61-year-old male that presented with cervical stenosis and a densely week left arm. He underwent a cervical laminectomy. He is seen for his first postoperative visit. Overall he seems to be doing very well. He has notably more strength in his left arm. He is working with physical therapy for this. His incision has healed well. He still complains of some brittnee incisional pain but using a soft collar and anti-inflammatories seems to aid this. He has weaned himself off of all narcotics. At this point, I think he is doing exceptionally well from the surgery and hopefully should have continued increases in his strength on the left side. He will continue working with physical therapy for the time being. We will not make a scheduled follow up and he can contact us if issues arise. 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
--- OUTSIDE RECORDS SUMMARY | 2022-08-15 01:34 | XMS_ITS | Encounter Summary ---
:1955 Author Organization [facility] [place] [address] Care Team Providers Name Role Phone Aissatou Briggs APRN Primary Care Provider Encounter Details Date Type Department Care Team Description 10/19/2016 Telephone Neurosurgery at [facility] [place] [address] Social History Tobacco Use Types Packs/Day Years Used Date Former Smoker Cigarettes Quit: 05/14/20 08 Smokeless Tobacco: Never Used Alcohol Use Standard Drinks/Week Comments No 0 (1 standard drink = 0.6 oz pure alcoho l) Sex Assigned at Date Recorded Not on file documented as of this encounter Miscellaneous Notes Telephone Encounter - Leticia Hook RN - 10/19/2016 10:25 AM EST Miguel requested a refill of the Oxycodone. He originally stated he had just enough for today but then when I called back telling him I spoke with Miguel Christianson PA-C who said he would give him just one more refill and I told him it would have to be mailed, Miguel said he could get by on what he has left for the next few days until the new prescription arrives. I advised Miguel to start weaning off them and to take ES Tylenol four times a day to start with. A prescription was mailed to the [facility] in [place], [place]. documented in this encounter Plan of Treatment Upcoming Encounters Date Type Specialty Care Team Description 09/04/2022 Ancillary Procedure Radiology Aissatou Briggs Canc eled (D-SCHED ERROR DIAMOND FINISHING SUPERVISOR / CORRECTION ) [address] [place], [place] [address] (Wo rk) documented as of this encounter Visit Diagnoses Not on filedocumented in this encounter Care Teams Economic Development Manager Relationship Specialty Start Date End Date Aissatou Briggs, DIAMOND FINISHING SUPERVISOR PCP - General Internal Medicine 07/29/[address] [place] [address] documented as of this encounter
--- OUTSIDE RECORDS SUMMARY | 2022-08-15 01:34 | XMS_ITS | Encounter Summary ---
:1955 [place] [address] Care Team Providers Name Role Phone Janet Briggsyce Marielle GRAHAM Primary Care Provider Reason for Visit Auth/Cert Specialty Diagnoses / Procedures Referred By Contact Refer red To Contact Diagnoses Cervical spondylosis CERVICAL STENOSIS Procedures PRO LAMINECTOMY, >2 SGMT, CERVICAL LAMINECTOMY DECOMPRESSION > 2 SEGMENTS,CX Referral ID Status Reason Start Date Expiration Date Visits Requ ested Visits Authorized [id number] 1 1 Encounter Details Date Type Department Care Team Description 10/12/2016 Anesthesia Event Main Operating Room Margo La MD [facility] [place] [address] [place] [address] [phone] Anesthesia Record Procedure Summary Procedure Name Responsible Anesthesia Start Anesthesia Stop Anesthesiologist Time Time LAMINECTOMY Margo Dickerson MD 10/12/16 0729 10/12/16 092 4 DECOMPRESSION > 2 SEGMENTS,CX (WRVU 20.85) (N/A Spine Cervical) Events Date Time Event Comment 10/12/2016 0720 0728 AN Verify 0729 Start 0734 An Start Data 0748 An Induction 0752 An Intubation 0804 Anesthesia Ready 0815 Procedure Start 0851 Break/Relief In MARGO DICKERSON MD 0853 Quick Note Local 20 ml 0.5% Bupivacaine 0907 Break/Relief Out 0917 Procedure Stop 0923 Extubation/LMA Out 0924 an stop data 0924 Recovery or ICU Handoff Patient care was transferred to the destination unit staff after review of the patient's medica l history, current anesthetic/surgi lavinia status and plan, according to the Provider Handoff Checklist. 0924 Stop Name Total Midazolam 2 mg fentaNYL 250 mcg IV Lidocaine 50 mg Propofol 150 mg Rocuronium 50 mg PHENYLephrine 400 mcg Ondansetron 4 mg Dexamethasone 4 mg Neostigmine 4 mg Glycopyrrolate 0.6 mg ceFAZolin (ANCEF) 1g in dextrose 5% 50mL 1 g PHENYLephrine INF 4,620 mcg Etomidate 20 mg lactated ringers infusion 1,000 mL 700 mL Agents Name O2 Air N2O Sevoflurane (et) Blood No blood administrations on file. Lines, Drains, and Airways Type Details Placement Removal PIV 04/29/11; 02/14/18 (Auto 04/29/11 0000 by 0921 by removal via utility); Mery Pinzon, Epic, User 0921 (Auto removal via RN utility) PIV 10/12/16; 0721; cephalic 10/12/16 0721 by 0100 by vein (lateral side of Stephanie Fitzpatrick, RN Heidi Kilgore, arm), left; 16 gauge; RN anesthesia; distraction, intradermal injection, tolerated well; painful; catheter/device intact, site symptomatic; 10/13/16; 0100 Arterial Line 10/12/16; 0729; radial 10/12/16 0729 by 10/12/16 1041 by artery, right; 20 gauge; Hua Mireles MD H ickey, Bruce R, RN chidil; Sterile Prep, Sterile Gloves; catheter intact; 10/12/16; 1041 ETT Mask Ventilation: Adjunct 10/12/16 0752 by 10/12 0923 by (2) (oral airway); ETT Hua Mireles MD Lab orde, Nathan J, Type: Cuffed, Oral; ETT Size: 8 mm; Indirect:Video (elective d/t poor neck mobility); Notes: Asleep, Pre-O2, Stylette; Attempts: 1; Laryngoscopy Grade: 1; ETT Placement Verified By: Auscultation, Capnometry, Visual; Secured at Teeth: 19 cm; Inserted by: njl Urethral Catheter 10/12/16; 0759; other 10/12/16 0759 by 6 0910 by (see comments) (cardiac Stu-Bell, Stu-Co llier, hx); indwelling double TRES Ng RN lumen catheter; latex; 14; inserted at this facility; 1; 5; 10; other (see comments) (gel in kit); drainage bag to dependent drainage; tubing intact, urethral catheter removed, per protocol/policy; 10/12/16; 0910 Incision 10/12/16; 0812; cervical 10/12/16 0812 by 1715 by spine; 06/29/22 (LDA Rao Hankins, rdre L cleanup utility RA#[id number]); TRES Ng 1717 (LDA cleanup utility RA#[id number]) documented in this encounter Social History Tobacco Use Types Packs/Day Years Used Date Former Smoker Cigarettes Quit: 05/14/20 08 Smokeless Tobacco: Never Used Alcohol Use Standard Drinks/Week Comments No 0 (1 standard drink = 0.6 oz pure alcoho l) Sex Assigned at Date Recorded Not on file documented as of this encounter OR Notes Anesthesia Postprocedure Evaluation - Margo Dickerson MD - 10/12/2016 12:42 PM EST [facility] Department of Anesthesiology Post-procedure Note Patient: Miguel Pérez Procedure Summary Date Anesthesia Start Anesthesia Stop Room / Location 10/12/16 0729 0924 [facility] OR [facility] MAIN OR Procedure Diagnosis Surgeon Responsible Provider LAMINECTOMY DECOMPRESSION > 2 SEGMENTS,CX (N/A Spine Cervical) (CERVICAL STENOSIS) Hua Bullard MD Ikeda, Sharon K, MD All Anesthesia Providers: Anesthesiologist: Margo Dickerson MD Director Pharmaceutical: Hua Mireles MD Last (1hr) Vitals: BP 118/71 (10/12/16 1145) Temp 36.7 ??C (98.1 ??F) (10/12/16 1145) Pulse Resp SpO2 97 % (10/12/16 1145) Patient Location: PACU/[facility] Level of Consciousness: Conscious but Sleepy Pain Management: Satisfactory Analgesia PONV: None Cardiovascular Status: At Baseline Respiratory Status: Supplemental O2 (NC or FM) Postoperative Fluid Status: Intravascular EUvolemia Possible Anesthetic Complications: NONE apparent at time of evaluation Final Primary Anesthesia Type: General (The anesthetic type performed was the same as planned.) Comments: Very sleepy after Dilaudid 0.4 mg. Anesthesia Preprocedure Evaluation - Margo Dickerson MD - 10/11/2016 9:22 AM EST Pre-Anesthesia Evaluation for: Miguel Pérez a 61 y.o. male. Procedure(s): LAMINECTOMY DECOMPRESSION > 2 SEGMENTS,CX Patient Active Problem List Diagnosis ??? Unstable angina ??? Cervical stenosis of spinal canal ??? Testicle pain ??? ST elevation myocardial [...] brittnee-infarct ischemia, and associated hypokinesis. LVEF 46%. ??? Epilepsy ??? Memory loss ??? TBI (traumatic brain injury) ??? Depression ??? GERD (gastroesophageal reflux disease) ??? Allergic rhinitis ??? Left-sided muscle weakness ??? Facial droop Past Medical History Diagnosis Date ??? CAD (coronary artery disease), [place] coronary artery ??? Epilepsy ??? GERD (gastroesophageal reflux disease) ??? ST elevation myocardial infarction (STEMI) involving left circumflex coronary artery in recoveryphase ??? TBI (traumatic brain injury) No past surgical history on file. Social History Substance Use Topics ??? Smoking status: Former Smoker Types: Cigarettes Quit date: 05/14/2008 ??? Smokeless tobacco: Never Used ??? Alcohol use No History Drug Use No Allergies Allergen Reactions ??? Abilify [Aripiprazole] Rash ??? Codeine Nausea And Vomiting and Rash ??? Oxycodone Rash Headache Medications: MAR and/or home medications have been reviewed. Physical Exam: There were no vitals filed for this visit. There is no height or weight on file to calculate BMI. Airway Assessment: Mallampati: II TM distance: >3 FB Neck ROM: limited No airway mgmt hx in EDH. Cardiovascular Assessment: Pulmonary Assessment: Dental Assessment: Comment: Edentulous Misc Assessment: Patient is wearing No contact(s). IV access: Peripheral line Anesthesia Plan: ASA 4 general, with a(n) intravenous induction 61 yo M w/ cervical stenosis presenting for posterior lami/decompression 2 cervical segments. CAD - Hx inferior STEMI 04/2011, w/ placement BMS x 1 distal LAD. LVEF 54% @ discharge. 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, residual L hemiparesis; 04/21/11 Carotid Duplex - less than 15% stenosis bilaterallly HTN - lisinopril HLD Asthma - Flovent, Xopenex GERD - well controlled on omeprazole Epilepsy - Dilantin, Lamictal Hx TBI Former smoker - quit 05/2008, pipe x 35 yrs prior No URI No problems w/ past anesthetics Allergies: Abilify(rash), codeine(N/V, rash), oxycodone(MCMAHON), ASA(high dose) Wt: 62 kg NPO: solds 1800, liquids 0430(blk coffee) Code: Full 09/19/16 Hb 13.8, plts 134 Cr 0.91, eGFR greater than 60 Plan GAET-elective CMAC, prone position, std ASA monitors + pre-induction arterial line, adequate IVaccess. Tylenol 1000 mg preop. Region - Other Informed Consent: Anesthetic plan and risks discussed with patient. Use of blood products discussed with patient who consented to blood products. Plan discussed with resident. PAT Staff Note documented in this encounter Plan of Treatment Upcoming Encounters Date Type Specialty Care Team Description 09/04/2022 Ancillary Procedure Radiology Aissatou Briggs, Berto velázquez (D-SCHED ERROR SLICING MACHINE OPERATOR / CORRECTION ) [address] [place] [address] (Wo rk) documented as of this encounter Visit Diagnoses Not on filedocumented in this encounter Administered Medications Inactive Administered Medications - up to 3 most recent administrations Medication Order MAR Action Action Date Dose Rate Site ceFAZolin (ANCEF) 1g in dextrose 5% Given 10/12/2016 8:02 AM EST 1 g 50mL 1,000 mg (1 g), Intravenous, ONCE, 1 dose, On Wed10/12/16 at 0745, Administer over 30 Minutes, To be administered upon arrival to the OR within one hour prior to incision., Day of Surgery (Day of Procedure), Indication for (Active or Suspected): Prophylaxis dexamethasone (DECADRON) injection Given 10/12/2016 8:04 AM EST 4 mg PRN, Starting on Wed10/12/16 at 0804, Until Wed10/12/16 at 0924, Anesthesia Intra-op, Routine etomidate (AMIDATE) injection Given 10/12/2016 7:48 AM EST 20 mg PRN, Starting on Wed10/12/16 at 0748, Until Wed10/12/16 at 0924, Anesthesia Intra-op, Routine fentaNYL 50 mcg/mL multi-dose injection Given 10/12/2016 9:10 AM EST 100 mcg PRN, Starting on Wed10/12/16 at 0748, Until Wed10/12/16 at 0924, Pain, Anesthesia Intra-op, Routine Given 10/12/2016 7:56 AM EST 50 mcg Given 10/12/2016 7:52 AM EST 50 mcg glycopyrrolate (ROBINUL) multi-dose inje ction Given 10/12/2016 9:09 AM EST 0.6 mg PRN, Starting on Wed10/12/16 at 0909, Until Wed10/12/16 at 0924, Anesthesia Intra-op, Routine lidocaine (PF) (XYLOCAINE) 100 mg/5 mL (2 %) Given 6 7:48 AM EST 50 mg injection PRN, Starting on Wed10/12/16 at 0748, Until Wed10/12/16 at 0924, Anesthesia Intra-op, Routine midazolam (PF) (VERSED) 1 mg/mL multi-dose Given 10/12/2016 7:29 AM EST 2 mg injection PRN, Starting on Wed10/12/16 at 0729, Until Wed10/12/16 at 0924, Sleep, Anesthesia Intra-op, Routine neostigmine (PROSTIGMINE) multi-dose inj ection Given 10/12/2016 9:09 AM EST 4 mg PRN, Starting on Wed10/12/16 at 0909, Until Wed10/12/16 at 0924, Anesthesia Intra-op, Routine ondansetron (ZOFRAN) injection Given 10/12/2016 8:53 AM EST 4 mg PRN, Starting on Wed10/12/16 at 0853, Until Wed10/12/16 at 0924, Nausea, Anesthesia Intra-op, Routine PHENYLephrine Rate/Dose Change 10/12/2016 9:07 AM 40 mcg/min 30 mL/hr (LUI-SYNEPHRINE) 20 mg in EST sodium chloride 250 mL (standard ADULT & Pina greater than 20kg) infusion CONTINUOUS PRN, Starting on Wed10/12/16 at 0814, Until Wed10/12/16 at 0924, Anesthesia Intra-op, Routine Rate/Dose Change 10/12/2016 8:52 AM EST 60 mcg/min 45 mL/hr New Bag 10/12/2016 8:14 AM EST 80 mcg/min 60 mL/hr PHENYLephrine HCl in NS (PF) Given 10/12/2016 8:13 AM EST 160 mc g (LUI-SYNEPHRINE) 0.8 mg/10 mL (80 mcg/mL) multi-dose injection Syrg PRN, Starting on Wed10/12/16 at 0800, Until Wed10/12/16 at 0924, Anesthesia Intra-op, Routine Given 10/12/2016 8:12 AM EST 80 mcg Given 10/12/2016 8:00 AM EST 160 mcg propofol (DIPRIVAN) 10 mg/mL bolus injection Given 6 7:55 AM EST 30 mg (Anesthesia) PRN, Starting on Wed10/12/16 at 0748, Until Wed10/12/16 at 0924, Anesthesia Intra-op Given 10/12/2016 7:53 AM EST 50 mg Given 10/12/2016 7:49 AM EST 50 mg rocuronium (ZEMURON) multi-dose injectio n Given 10/12/2016 7:50 AM EST 50 mg PRN, Starting on Wed10/12/16 at 0750, Until Wed10/12/16 at 0924, Anesthesia Intra-op, Routine documented in this encounter Care Teams Packaging Associate Relationship Specialty Start Date End Date Aissatou Briggs APRN PCP - General Internal Medicine 07/29/[address] [place] [address] documented as of this encounter
--- OUTSIDE RECORDS SUMMARY | 2022-08-15 01:34 | XMS_ITS | Encounter Summary ---
:1955 Author Organization [facility] [place] [address] Care Team Providers Name Role Phone Aissatou Briggs APRN Primary Care Provider Reason for Visit Reason Onset Date Comments Medication Refill 07/14/2017 Encounter Details Date Type Department Care Team Description 07/14/2017 Refill Pain Management at [facility] Narciso Garner MD Cervical stenosis of [facility] nal canal [facility] [place] [address] PAIN CLINIC [phone] [place] [id number] (Wo rk) Social History Tobacco Use Types [...] Radiology Aissatou Briggs, Canc eled (D-SCHED ERROR SALES SERVICE PROMOTER / CORRECTION ) [address] [place] [address] (Wo rk) documented as of this encounter Visit Diagnoses Diagnosis Cervical stenosis of spinal canal Spinal stenosis in cervical region documented in this encounter Care Teams Community Health Navigator Relationship Specialty Start Date End Date Aissatou Briggs APRN PCP - General Internal Medicine 07/29/16 [address] [place] [address] documented as of this encounter
--- OUTSIDE RECORDS SUMMARY | 2022-08-15 01:34 | XMS_ITS | Encounter Summary ---
:1955 Author Organization [facility] [place] [address] Care Team Providers Name Role Phone Aissatou Briggs APRN Primary Care Provider Encounter Details Date Type Department Care Team Description 07/27/2018 Telephone Dermatology at [facility] Gissell Cameron LPN [address] [place] [address] Social History Tobacco Use Types Packs/Day Years Used Date Former Smoker Cigarettes Quit: 05/14/20 08 Smokeless Tobacco: Never Used Alcohol Use Standard Drinks/Week Comments No 0 (1 standard drink = 0.6 oz pure alcoho l) Sex Assigned at Date Recorded Not on file documented as of this encounter Miscellaneous Notes Telephone Encounter - Gissell Cameron LPN - 07/27/2018 3:30 PM EDT Tereza called from [facility] and she just wanted to inform us that she went to Miguel's home today. 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 Tereza asked if Miguel mentioned that his house mate had the same kind of areas and looking in to the note nothing was noted. She was wondering if they are scabies or flea bites? She told Miguel and or the house mate has an appt with their PCP. She will fax the information to the PCP office that I sent her with the Triamcinolone instructions and what he was diagnosed with here in the clinic so the PCP is aware. documented in this encounter Plan of Treatment Upcoming Encounters Date Type Specialty Care Team Description 09/04/2022 Ancillary Procedure Radiology Aissatou Briggs Canc eled (D-SCHED ERROR LINE PULLER / CORRECTION ) [address] [place] [address] (Wo rk) documented as of this encounter Visit Diagnoses Not on filedocumented in this encounter Care Teams Linking Machine Operator Relationship Specialty Start Date End Date Aissatou Briggs, SANTOS PCP - General Internal Medicine 07/29/[address] [address] documented as of this encounter
--- OUTSIDE RECORDS SUMMARY | 2022-08-15 01:34 | XMS_ITS | Encounter Summary ---
:1955 Author Organization [facility] [place] [address] Care Team Providers Name Role Phone Aissatou Briggs APRN Primary Care Provider Reason for Visit Reason Onset Date Comments Other 12/09/2016 [facility]- Assistance with Gas Card Encounter Details Date Type Department Care Team Description 12/09/2016 Telephone Care Management Elana Silva Other ([facility]- Assistance [facility] Sumit molina with Gas Card) [place] [phone] Social History Tobacco Use Types Packs/Day Years Used Date Former Smoker Cigarettes Quit: 05/14/20 08 Smokeless Tobacco: Never Used Alcohol Use Standard Drinks/Week Comments No 0 (1 standard drink = 0.6 oz pure alcoho l) Sex Assigned at Date Recorded Not on file documented as of this encounter Miscellaneous Notes Telephone Encounter - Elana Silva - 12/09/2016 3:36 PM EST [facility]- Assistance with Gas Card Patient came to [facility] on 12/08/16 to request assistance with gas card to get home from his appointment. He stated that his income is limited (Social Security benefits) and he was only able to obtain money to purchase enough gas to get to his appointment. Approved gas card and advised pt that this is a onetime assistance only. [id number] documented in this encounter Plan of Treatment Upcoming Encounters Date Type Specialty Care Team Description 09/04/2022 Ancillary Procedure Radiology Aissatou Briggs, Canc eber (D-SCHED ERROR ASSISTANT STORE DIRECTOR / CORRECTION ) [address] [place] [address] (Wo rk) documented as of this encounter Visit Diagnoses Not on filedocumented in this encounter Care Teams Health Care Assistant Relationship Specialty Start Date End Date Aissatou Briggs APRN PCP - General Internal Medicine 07/29/[address] [address] documented as of this encounter
--- OUTSIDE RECORDS SUMMARY | 2022-08-15 01:34 | XMS_ITS | Encounter Summary ---
:1955 Author Organization [facility] [place] [address] Care Team Providers Name Role Phone Aissatou Briggs APRN Primary Care Provider Reason for Visit Auth/Cert Specialty Diagnoses / Procedures Referred By Contact Refer red To Contact Diagnoses Seizure NON SUSTAINED V TACH, SZ Referral ID Status Reason Start Date Expiration Date Visits Requ ested Visits Authorized [id number] 1 1 Encounter Details Date Type Department Care Team Description 08/28/2019 - Hospital Encounter 1 [place] [address] Coronary artery disease involving viejas coronary artery of viejas heart without angina pectoris; 08/30/2019 [facility] [place] [address] Seizure disorder [facility] [place] [address] [place] [id number] Social History Tobacco Use Types Packs/Day Years Used Date Former Smoker Cigarettes Quit: 05/14/20 08 Smokeless Tobacco: Never Used Alcohol Use Standard Drinks/Week Comments No 0 (1 standard drink = 0.6 oz pure alcoho l) Sex Assigned at Date Recorded Not on file documented as of this encounter Last Filed Vital Signs Vital Sign Reading Time Taken Comments Blood Pressure 106/63 08/30/2019 11:19 AM EDT Pulse 56 08/30/2019 11:19 AM EDT Temperature 36.8 ??C (98.2 ??F) 08/30/2019 11:19 AM EDT Respiratory Rate 18 08/30/2019 11:19 AM EDT Oxygen Saturation 98% 08/30/2019 11:19 AM EDT Inhaled Oxygen Concentration - - Weight 56.5 kg (124 lb 9 oz) 08/28/2019 1:05 AM EDT Height 157.5 cm (5' 2) 08/28/2019 1:05 AM EDT Body Mass Index 22.78 08/28/2019 1:05 AM EDT documented in this encounter Discharge Summaries Bubba Mcdaniels MD - 08/30/2019 4:00 PM EDT Discharge Summary Patient Name: Miguel Pérez Patient Age: 64 y.o. Language: Chinese Race: White Ethnicity: Not nor Admit date: 08/28/2019 Discharge date and time: 08/30/2019 Attending Physician: BUBBA MCDANIELS MD Discharge Physician: BUBBA MCDANIELS MD Follow-up Recommendations for Providers: -Reinforce counseling regarding adherence to med regimen, particularly antiepileptics. Discharge Diagnoses (Hospital Problems) and Secondary Diagnoses (Chronic Problems): Active Hospital Problems Diagnosis ??? Chest pain ??? Seizure Resolved Hospital Problems No resolved problems to display. Active Non-Hospital Problems Diagnosis ??? Postoperative ileus ??? Cervical spondylosis ??? Unstable angina ??? Cervical stenosis of spinal canal ??? Testicle pain ??? ST elevation myocardial infarction (STEMI) of inferolateral wall, subsequent episode of care ??? CAD (coronary artery disease) ??? Epilepsy ??? Memory loss ??? TBI (traumatic brain injury) ??? Depression ??? GERD (gastroesophageal reflux disease) ??? Allergic rhinitis ??? Left-sided muscle weakness ??? Facial droop Operations/Major Procedures: None. 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 History obtained from chart review given patient's cognitive state? The patient presented to [facility] with chest pain like someone was punching [him] in the chest and associated pre-syncope.??Vitals: T 37 C, HR 62, RR 20, BP 140/85, SpO2 97% RA.??EKG revealed nonspecificlateral ST changes. Troponin was negative. He had a questionable five second period of wide-complex rhythm however??it appears to be sinus with baseline artifact without AV dissociation. He received 150mg amiodarone IV bolus. His chest pain resolved but he then had three episodes of possible tonic-clonic seizures, each lasting 20 seconds, within a 45 minute timespan. He was reportedly post-ictal initially however his mental status returned to baseline. During these episodes he was loaded with 1500mgkeppra and received 1mg lorazepam. CTH was unremarkable.??CTPE was also done to rule out dissection or pulmonary embolism; it was normal and showed no evidence of embolus. ?? On evaluation patient??reports he has had chest pain like someone is stepping on my chest since this morning. The pain feels similar to his prior heart attack. He cannot detail aggravating or relieving factors. He denies pain prior to today. The pain was present at rest. He experienced lightheadedness and reports a fall without loss of conciousness but he did hit his head.??On evaluation??he denies??dyspnea, nausea, vomiting, diaphoresis, syncope.??He reports his recently one weekago because she was sick. The patient cannot detail the medications or AEDs he takes at home.?? Hospital Course: Mr. 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 # Chest Pain There was initial concern for cardiac chest pain given known CAD and somewhat lower EF compared to past echo, but it later became clear that the pain was muscular -- once his MS cleared he was able to report that the pain was related to movement of his left arm and he had very clearly reproducible pain on palpation of L pectoral muscle. ?? # possible NSVT Although there was some question of ventricular tachycardia prior to admission and amiodarone was given, there has only been one episode of possible non- sustained ventricular tachycardia on telemetry here and amiodarone was stopped. Cardiology recommended managing with standard HFrEF goal-directed medical therapy. ?? # focal epilepsy, seizure Seizure activity in setting of poor adherence to home med regimen including AED regimen, which was later clarified to be lamotrigine 100 mg BID and gabapentin 600 mg QID. Neurology was involved and patient was ultimately transitioned back to his usual AED regimen. He was also maintained on keppra 500 mg bid until he was ramped back up to his full lamotrigine dose upon discharge. Vital Signs at Discharge: BP: 106/63, Heart Rate: 56, Temp: 36.8 ??C (98.2 ??F), Resp: 18, BMI (Calculated): 22.78 Height: 157.5 cm (5' 2) (08/28/19104) Weight: 56.5 kg (124 lb 9 oz) (08/28/19104) Functional and Cognitive Status: At baseline - mostly wheelchair bound but able to ambulate short distances with a walker. AAOx4. Important Studies and Lab Data: Labs: Last 3 wbc, hgb, hct plt Recent Labs 08/28/19229 WBC 6.0 HGB 13.1* HCT 40.4* PLATELET 128* Last 3 Lytes Recent Labs 08/29/19195808/28/19229 NA 143 140 K 4.5 4.1 CL 107 104 CO2 21* 26 BUN 15 13 CREATININE 1.02 1.05 Last 3 LFTs Recent Labs 08/28/19229 AST 17 ALT 11 ALKPHOS 113 BILITOT 0.3 Last Ca, Mg, Phos Recent Labs 08/29/19195808/28/19229 CALCIUM 9.0 9.0 PHOS -- 3.6 Last 3 Coags Recent Labs 08/28/19229 PT 14.3* INR 1.2 PTT 35 Last 3 ProBNP, Trop, CK Recent Labs 08/28/19 1150 08/28/19 0557 08/28/19229 TROPONINT <0.01 <0.01 <0.01 PROBNP -- -- 312* Last 3 TFT No results for input(s): TSH in the last 7068 hours. Invalid input(s): T4, FT4 Radiology: CXR - Mild pulmonary edema. ?? AXR - 1. ??Nonobstructive bowel gas pattern. 2. ??Moderate stool burden ascending and transverse colon. ?? OSH CTPE - Normal pulmonary arteries, no pulmonary emboli. No aortic aneurysm or dissection. No significant stenosis in vessels. ?? OSH CT Head and Neck - Old left temporal lobe cortical infarct. Up to 20% stenosis in the right ICA origin. Non significantplaque in the origin of the left ICA. ?? Other Studies: EKG - sinus bradycardia, Q waves II, III, aVR ?? Echocardiogram - 1. The left ventricular chamber size is normal. ??Global left ventricular systolic function is moderately reduced. ??The quantitative left ventricular ejection fraction by biplane Jaramillo's method is 35%. ??There are left ventricular segmental wall motion abnormalities present, as shown in the diagram below. 2. Right ventricular chamber size, wall thickness, and systolic function are within normal limits. 3. The left atrium is moderately dilated. 4. The aortic valve is tricuspid. ??Mild (1+/4+) aortic valve regurgitation is present. ??There is no evidence of aortic valve stenosis. 5. There is mild (1+/4+) mitral regurgitation present. ??There is posterior mitral annular calcification. Pending Studies and Lab Data: None. Discharge Conditions/Prognosis: Stable Discharge to: Home w/ VNA Updated Allergies/ADRs: Allergies Allergen Reactions ??? Abilify [Aripiprazole] Rash ??? Codeine Nausea And Vomiting and Rash ??? Oxycodone Rash Headache Immunizations Given this Hospitalization: There is no immunization history on file for this patient. Discharge Medications: Your Medications Continued medications, unchanged Dose Details acetaminophen 325 mg Tab Commonly known as: TYLENOL Take 2 tablets by mouth every 4 hours as needed for Pain (mild pain). 650 mg Quantity: 30 tablet Refills: 1 atorvastatin 80 mg Tab Commonly known as: LIPITOR Take 1 tablet by mouth daily. 80 mg Quantity: 90 tablet Refills: 3 clopidogrel 75 mg Tab Commonly known as: PLAVIX Take 75 mg by mouth daily. 75 mg Refills: 0 ELIQUIS 5 mg Tab Take 5 mg by mouth 2 times daily. Generic drug: apixaban 5 mg Refills: 0 fentaNYL 50 mcg/hr Pt72 Commonly known as: DURAGESIC Place 1 patch onto the skin every 72 hours. 1 patch Refills: 0 fluticasone propionate 50 mcg/actuation Spsn Commonly known as: FLONASE 1 spray by Nasal route as needed. 1 spray Refills: 0 gabapentin 300 mg Cap Commonly known as: NEURONTIN Take 600 mg by mouth 4 times daily. 600 mg Refills: 0 lamoTRIgine 100 mg Tab Commonly known as: LaMICtal Take 100 mg by mouth 2 times daily. 100 mg Refills: 0 lisinopril 5 mg Tab Commonly known as: PRINIVIL;ZESTRIL Take 1 tablet by mouth daily. 5 mg Quantity: 90 tablet Refills: 3 metoprolol tartrate 25 mg Tab Commonly known as: LOPRESSOR Take 25 mg by mouth daily. 25 mg Refills: 0 NITROSTAT 0[address] 0.4 mg under the tongue every 5 minutes as needed. Reported on 12/08/2016 Generic drug: nitroGLYcerin 0.4 mg Refills: 0 pantoprazole 40 mg Tbec Commonly known as: PROTONIX Take 40 mg by mouth daily. 40 mg Refills: 0 traZODone 100 mg Tab Commonly known as: DESYREL Take 200 mg by mouth nightly. 200 mg Refills: 0 triamcinolone 0.1 % Crea Commonly known as: KENALOG apply to the itchy areas on the arms and trunk BID Quantity: 80 g Refills: 0 XOPENEX HFA 45 mcg/actuation Hfaa Inhale 1-2 puffs into the lungs every 4 hours as needed. Generic drug: levalbuterol 1-2 puff Refills: 0 Smoking Status at Discharge: Social History Tobacco Use Smoking Status Former Smoker ??? Types: Cigarettes ??? Last attempt to quit: 05/14/2008 ??? Years since quittin.3 Smokeless Tobacco Never Used Instructions Given to Patient at Discharge: Patient Instructions Instruction after leaving the hospital Call your doctor or seek medical attention if you develop the following: -Recurrent seizures or any other concerns. Activity level: -As tolerated. Diet: -Resume your usual diet with no new restrictions. Specific instructions related to your condition: -Make sure to take your medications as prescribed to avoid recurrent seizures. Follow-Up Appointments -Follow up with your PCP Aissatou Briggs APRN [phone] on as previously scheduled. Your Inpatient Doctor(s) at [facility]: Bubba Mcdaniels MD [phone] Future Appointments and Orders Future Orders Complete By Expires Referral to Home Health - at DISCHARGE [[id number] CPT(R)] As directed Process Instructions: Scheduling Instructions: Comments: DOCUMENTATION FOR VNA SERVICES (INCLUDING THOSE PATIENTS WITH MEDICARE COVERAGE REQUIRING HOME VNA SERVICES AND/OR HOSPICE SERVICES) PATIENT'S LOCATION: [address] [phone] (home) [place] [phone] Court Liaison's Name: Patient In discussion with the attending physician, it is certified that this patient is under their care and that they, or a Nurse Practitioner,Clinical Nurse specialist or Physician Mechanic Welder Truck Driver who is working directly with them, had a face to face encounter that meets the physician face to face encounter requirements with this patient on 08/30/2019 The encounter with the patient was in whole, or in part, for the following medical condition, which is the primary reason for home health care services: 64 year-old right-handed male with a history of TBI, PTSD, PE on DOAC (unclear history or timing of PE), CVA (2010 with persistent left sided weakness), HTN, HLD, ASCVD (STEMI s/p BMS to dLCx 09/2016), HFrEF (EF 52% post intervention 2015), cervical stenosis (s/p C3-6 laminectomy), and 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 In discussion with the provider, it is certified that, based on their findings, the following services are medically necessary for home health services. To provide the following care/treatments with the clinical findings supporting the need for servicesas follows: HOME CARE ORDERS: RN ORDERS:Assess wound or incision, vital signs, cardiopulmonary status, nutrition, hydration, elimination, meds effectiveness and management; reinforce education re health issues PT ORDERS: Continue rehab for endurance, gait stability and strength with mobility and transfers. Home safety evaluation. Home exercise program if appropriate. OT: assess and continue rehab for managing ADL's. END FINDER TWISTING DEPARTMENT: Assess and connect to appropriate resources. Emotional support regarding loss of his spouse E COMMERCE RETAILER: assist with ADLs as directed by RN HOME HEALTH CARE AGENCY: [facility] PHONE: [phone] FAX: [phone] Start of care: 24-48 hours of discharge(please see within 24 hours of discharge if possible. FOR MEDICARE ONLY: (please delete this section if not Medicare) In discussion with the attending physician, it is certified that the clinical findings support that this patient is homebound because absences from home require considerable and taxing effort due to: W/C bound and requires assistance for W/C management Please note that any additional orders needs or changes will need to be obtained from this patient'sPCP: Aissatou Briggs, SENIOR INSIGHT MANAGER [phone] [facility] [id number] All VNA agencies which cover the area of patient's residence have been reviewed, either verbally or in writing, and patient/family have chosen the home health care agency noted Questions: Agency name and contact information: [facility] Patient location post discharge: home What services are requested: Registered Nurse Physical Therapy Social Work Occupational Therapy Home Health Aide Start date: Responsible MD post discharge contact info: PCP Inpatient Provider Contact Information: For questions regarding this document or issues relating to this hospitalization on the Medical Service, please contact your inpatient physician through the [facility] Maple Products Maker . Issues after hours and on weekends will be handled by the Hospitalist staff on-call. documented in this encounter Discharge Instructions Patient InstructionsBubba Mcdaniels MD - 08/30/2019 3:10 PM EDT Instruction after leaving the hospital Call your doctor or seek medical attention if you develop the following: -Recurrent seizures or any other concerns. Activity level: -As tolerated. Diet: -Resume your usual diet with no new restrictions. Specific instructions related to your condition: -Make sure to take your medications as prescribed to avoid recurrent seizures. Follow-Up Appointments -Follow up with your PCP Aissatou Briggs, SENIOR INSIGHT MANAGER [phone] on as previously scheduled. Your Inpatient Doctor(s) at [facility]: Bubba Mcdaniels MD [phone] documented in this encounter Medications at Time [...] documented as of this encounter Progress Notes Bubba Mcdaniels MD - 08/30/2019 4:00 PM EDT Hospital Medicine - Attending Day of Discharge Documentation Discharge diagnosis Active Hospital Problems Diagnosis ??? Chest pain ??? Seizure Resolved Hospital Problems No resolved problems to display. Secondary Issues Active Non-Hospital Problems Diagnosis ??? Postoperative ileus ??? Cervical spondylosis ??? Unstable angina ??? Cervical stenosis of spinal canal ??? Testicle pain ??? ST elevation myocardial infarction (STEMI) of inferolateral wall, subsequent episode of care ??? CAD (coronary artery disease) ??? Epilepsy ??? Memory loss ??? TBI (traumatic brain injury) ??? Depression ??? GERD (gastroesophageal reflux disease) ??? Allergic rhinitis ??? Left-sided muscle weakness ??? Facial droop I have personally seen and examined the patient and they are ready for discharge. I spent >30 minutes (Day of Discharge Code 40277) involved in the final examination of the patient, discussion of the hospital stay, instructions for continuing care to all relevant caregivers, and preparation of discharge records, prescriptions and referral forms. Plans ? Discharge to Home w/ VNA ? Follow-up scheduled with PCP ? Please see the Discharge Summary for complete details of any medication changes and additional plans. BUBBA MCDANIELS MD 08/30/2019 Paula Staley RN - 08/30/2019 3:26 PM EDT Pt discharged to home in personal vehicle w/son and VNA services. IVs removed prior to discharge. AVS reviewed prior to discharge. Paula Staley RN Esther Callaway RN - 08/30/2019 12:20 PM EDT Assurance Assistant called and spoke with Son Dev olmedo [phone] he is able to check in on his father and assist as needed. He will be here by 1500 to take him home. Esther Callaway RN, BSN, MST, ACM Tool Polishing Machine Operator pager#[phone] Hans Johnson MSW - 08/30/2019 9:44 AM EDT END FINDER TWISTING DEPARTMENT met with pt to provide support. Pt states that he attends [employer] [facility] 4x week where he engages in a support group with others who have endured loss, which pt reports to be helpful. He will be returning to his home with his son as a support and wishes to resume services through [facility]NA/NH and is agreeable to obtain END FINDER TWISTING DEPARTMENT support through their service. Chino Tello MD - 08/30/2019 7:54 AM EDT Neurology Consult Note Patient name:Miguel Pérez Date of :1955 Admit date: 08/28/2019 Primary Attending: Bubba Mcdaniels MD Neurology Consult Attending: Dr. Lord CC: Seizure We have been asked to see Miguel Pérez by Dr. Kingsley ID: Miguel Pérez is a 64 y.o. TBI, PTSD, PE on DOAC (unclear history), Lacunar Infarct (2010 with persistent left sided weakness), HTN, HLD, ASCVD (STEMI s/p BMS to dLCx 09/2016), HFrEF (EF 52% post intervention 2015), cervical stenosis (s/p C3-6 laminectomy), and 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 Interval History - No acute events overnight, vital signs stable, afebrile - Neurologic exam stable - No seizures of night - Lamotrigine levels - 4.9 - Dilantin levels - 4.2 Past Medical & Surgical History: Past Medical History: Diagnosis Date ??? CAD (coronary artery disease), viejas coronary artery ??? Epilepsy ??? GERD (gastroesophageal reflux disease) ??? ST elevation myocardial infarction (STEMI) involving left circumflex coronary artery in recoveryphase ??? TBI (traumatic brain injury) Past Surgical History: Procedure Laterality Date ? ? PRO LAMINECTOMY, >2 SGMT, CERVICAL N/A 10/12/2016 LAMINECTOMY DECOMPRESSION > 2 SEGMENTS,CX (WRVU 20.85) performed by Hua Bullard MD at [facility] MA[facility] OR Home Medications: No current facility-administered medications on file prior to encounter. Current Outpatient Medications on File Prior to Encounter Medication Sig Dispense Refill ??? ibuprofen (ADVIL;MOTRIN) 800 mg Tablet Take 800 mg by mouth 2 times daily. ??? gabapentin (NEURONTIN) 300 mg Capsule Take 600 mg by mouth 4 times daily. 300 mg in the morning and afternoon; 600 mg at night ??? atorvastatin (LIPITOR) 80 mg Tablet Take [...] lungs every 4 hours as needed. ??? docusate sodium (COLACE) 100 mg capsule Take 100 mg by mouth daily. ??? aspirin 81 mg EC tablet Take 81 mg by mouth daily. ??? fluticasone (FLOVENT) 110 mcg/Actuation inhaler Inhale 1 puff into the lungs 2 times daily. 1 Inhaler 3 ??? triamcinolone (KENALOG) 0.1 % Cream apply to the itchy areas on the arms and trunk BID 80 g 0 ??? acetaminophen (TYLENOL) 325 mg Tablet Take 2 tablets by mouth every 4 hours as needed for Pain (mild pain). 30 tablet 1 ??? lamoTRIgine (LAMICTAL) 100 mg Tablet Take 100 mg by mouth 2 times daily. ??? NITROSTAT 0.4 mg Tablet, Sublingual Place 0.4 mg under the tongue every 5 minutes as needed. Reported on 12/08/2016 ??? meloxicam (MOBIC) 15 mg Tablet Take 15 mg by mouth daily. ??? phenytoin (DILANTIN KAPSEAL) 100 mg Capsule Take 1 capsule by mouth every morning, and 2 capsules every evening. Brand name only. 180 tablet 3 ??? traZODone (DESYREL) 100 mg tablet Take 200 mg by mouth nightly. Hospital Medications: Scheduled Meds: ??? phenytoin 200 mg Oral Nightly ??? fentaNYL 1 patch Transdermal Q72H And ??? Patch Verification 1 patch Transdermal BID And ??? [START ON 09/01/2019] fentaNYL 1 patch Transdermal Q72H ??? atorvastatin 80 mg Oral Daily ??? citalopram 40 mg Oral Daily ??? gabapentin 600 mg Oral 4 Times Daily ??? traZODone 200 mg Oral Nightly ??? clopidogrel 75 mg Oral Daily ??? pantoprazole 40 mg Oral Daily ??? mometasone 1 puff Inhalation BID ??? polyethylene glycol (MIRALAX)oral powder 17 g Oral Daily ??? levETIRAcetam 500 mg Oral BID ??? apixaban 5 mg Oral BID ??? phenytoin 100 mg Oral QAM ??? lamoTRIgine 50 mg Oral BID Continuous Infusions: PRN Meds:.oxyCODONE, acetaminophen, LORazepam, ipratropium-albuterol Allergies: Allergies Allergen Reactions ??? Abilify [Aripiprazole] Rash ??? Codeine Nausea And Vomiting and Rash ??? Oxycodone Rash Headache Family history: Family History Problem Relation Age of Onset ??? Lung Cancer Brother ??? Heart Disease Mother ??? Heart Disease Sister Social history: Social History Socioeconomic History ??? Marital status: Spouse name: Not on file ??? Number of children: Not on file ??? Years of education: Not on file ??? Highest education level: Not on file Occupational History ??? Not on file Social Needs ??? Financial resource strain: Not on file ??? Food insecurity: Worry: Not on file Inability: Not on file ??? Transportation needs: Medical: Not on file Non-medical: Not on file Tobacco Use ??? Smoking status: Former Smoker Types: Cigarettes Last attempt to quit: 05/14/2008 Years since quittin.3 ??? Smokeless tobacco: Never Used Substance and Sexual Activity ??? Alcohol use: No ??? Drug use: No ??? Sexual activity: Not on file Comment: deferred Lifestyle ??? Physical activity: Days per week: Not on file Minutes per session: Not on file ??? Stress: Not on file Relationships ??? Social connections: Talks on phone: Not on file Gets together: Not on file Attends taoist service: Not on file Active member of club or organization: Not on file Attends meetings of clubs or organizations: Not on file Relationship status: Not on file ??? Intimate partner violence: Fear of current or ex partner: Not on file Emotionally abused: Not on file Physically abused: Not on file Forced sexual activity: Not on file Other Topics Concern ??? Not on file Social History Narrative ??? Not on file Review of systems: Constitutional: No fevers or chills Eyes: No vision changes, no diplopia, no blurry vision ENT: No rhinorrhea or pharyngitis, no meningismus CV: No chest pain or palpitations Resp: No cough, no shortness of breath GI: No nausea, vomiting, diarrhea or constipation : No dysuria, no incontinence Heme: No bleeding or bruising Endo: No polyuria or cold intolerance Neuro: See HPI Psych: No depression, normal sleep [x] Review of systems otherwise negative Physical Exam: Vitals: Temp: [35.7 ??C (96.3 ??F)-36.6 ??C (97.9 ??F)] Heart Rate: [59] Resp: [16-18] BP: (99-134)/(61-82) SpO2: [94 %-97 %] Heart Rate from SpO2: [45 bpm-64 bpm] Gen: Patient of apparent stated age, well nourished, well developed, awake, alert, NAD Neck: Supple, no meningismus, no carotid bruit, no occipital tenderness Mouth: NO mucocutaneous lesion CV: + S1, S2, RRR, no murmur Resp: CTA B/L Neuro Exam: MS: AAOx2, clear language, no dysarthria, follows commands CN: PERRL, EOMI, visual trujillo full, bilateral horizontal nystagmus Facial sensation intact, no facial asymmetry Hearing intact to finger rub Palate elevates symmetrically, tongue protrudes midline SCM and trap strength intact Motor: Normal bulk and tone. 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 Finger to Nose Gait: Did not assess Labs: Recent Results (from the past 24 hour(s)) Phenytoin level, total and free Result Value Ref Range Phenytoin Lvl 4.2 (L) 10.0 - 20.0 mg/L Phenytoin, Free Not Perf 1.00 - 2.00 Phenytoin Free% Not Calculated 8 - 12 Basic Metabolic Panel (non-fasting) Result Value Ref Range Glucose Lvl 104 65 - 199 mg/dL BUN 15 10 - 20 mg/dL Creatinine 1.02 0.80 - 1.50 mg/dL Sodium 143 135 - 145 mmol/L Potassium 4.5 3.5 - 5.0 mmol/L Chloride 107 98 - 107 mmol/L CO2 21 (L) 22 - 31 mmol/L Anion Gap 15 5 - 15 mmol/L Calcium 9.0 8.5 - 10.5 mg/dL eGFR 77 >=60 mL/min/1.73 m?? eGFR 90 >=60 mL/min/1.73 m?? Magnesium Result Value Ref Range Magnesium 0.82 0.69 - 1.07 mmol/L Diagnostic Tests and Imaging: None Assessment / Recommendations: Miguel Pérez is a 64 y.o. 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 In the setting of the recent passing of his and subsequent depression there is concern that he is no longer taking his seizure medications. AED levels for Dilantin and Lamotrigine should be obtained to assess for compliance. Also, obtaining collateral information from his son and pharmacywill be imperative in clarifying his compliance and current AED regimen.Unfortunately, it is unclearwhat his current home AED regimen is. This problem is further complicated since he has not been seenby Neurology since 2017. Based on his previous outpatient notes he was stable on Lamotrigine and Dilantin. Review of his SureScripts suggest he was on Dilantin 100 mg capsule QAM and 200 mg QPM and Lamotrigine 100 mg tablet BID. Dilantin may be started at his home dose; however, for lamotrigine we recommend starting him at 50 mg BID for 1 week before increasing to 100 mg BID. Keppra can be continued until he is back on his home AED regimen. His lamtrigine level was within therapeutic range which as collected the day of admission which suggests he was taking lamotrigine as an outpatient. However, his Dilantin levels after receiving 2 dosesof Dilantin was subtherapeutic, this may suggest that he non-compliant with his Dilantin medication or it was stopped by another provider. While he denies any changes to his medication he admits that he is not entirely certain. Since he has not seen [facility] Neurology since 2017, collateral information from his PCP, Pharmacy, and Son is imperative in clarifying his outpatient AED regimen. For now, we recommend re-checking a Dilantin level, free, and total prior to his next dilantin dose (or 8 hours after his last dose) since he would have received 4 doses of Dilantin and should be at steady state. Fortunately, he is not exhibiting mucocutaneous lesions or rashes after starting his lamotrigine. #Seizure disroder -Re-Check Dilantin and Lamotrigine Levels -c/w Dilantin 100 mg QAM and 200 mg QPM -c/w Lamotrigine 50 mg BID for 1 week THEN INCREASE to 100 mg BID -Continue with Keppra 500 mg BID until patient is on his home dose of Lamotrigine. -Obtain medical records from PCP, Pharmacy, and Son Deana Lovett MD Neurology Resident General Neurology Consult [id number] Neurology Staff Note I have reviewed the above resident's history during the visit and I agree with the details as written. My physical examination confirms the resident's findings. The assessment and plan were formulated in discussion with me at the time of the visit and I agree with them as documented. Chino Tello MD Bubba Mcdaniels MD - 08/29/2019 5:30 PM EDT Hospital Medicine Attending Daily Progress Note Admit Date: 08/28/2019 Hospital Day 1 day Active Hospital Problems Diagnosis ??? Chest pain ??? Seizure Resolved Hospital Problems No resolved problems to display. PMH Active Non-Hospital Problems Diagnosis ??? Postoperative ileus ??? Cervical spondylosis ??? Unstable angina ??? Cervical stenosis of spinal canal ??? Testicle pain ??? ST elevation myocardial infarction (STEMI) of inferolateral wall, subsequent episode of care ??? CAD (coronary artery disease) ??? Epilepsy ??? Memory loss ??? TBI (traumatic brain injury) ??? Depression ??? GERD (gastroesophageal reflux disease) ??? Allergic rhinitis ??? Left-sided muscle weakness ??? Facial droop Inpatient Medications: Scheduled ??? phenytoin 200 mg Oral Nightly ??? fentaNYL 1 patch Transdermal Q72H And ??? [START ON 08/30/2019] Patch Verification 1 patch Transdermal BID And ??? [START ON 09/01/2019] fentaNYL 1 patch Transdermal Q72H ??? atorvastatin 80 mg Oral Daily ??? citalopram 40 mg Oral Daily ??? gabapentin 600 mg Oral 4 Times Daily ??? traZODone 200 mg Oral Nightly ??? clopidogrel 75 mg Oral Daily ??? pantoprazole 40 mg Oral Daily ??? mometasone 1 puff Inhalation BID ??? polyethylene glycol (MIRALAX)oral powder 17 g Oral Daily ??? levETIRAcetam 500 mg Oral BID ??? apixaban 5 mg Oral BID ??? phenytoin 100 mg Oral QAM ??? lamoTRIgine 50 mg Oral BID Continuous infusions: PRN: oxyCODONE, acetaminophen, LORazepam, ipratropium-albuterol Interval History / ROS: -transferred to floor -feeling better today -MS now clear -no seizure activity today -c/o chronic b/l LE neuropathic pain - requests that his usual fentanyl patch be resumed (has been on this for ~3 yrs) -continues to have some intermittent left-sided chest pain that is associated with efforts to move his L arm (which is weak due to prior stroke) - he feels that it is muscular pain (and he does have clearly reproducible pain on palpation of L pectoral muscle) -otherwise no new complaints -denies suicidal ideation Physical Exam Vitals Range last 24 hrs Temperature Temp: [36.3 ??C (97.3 ??F)-37 ??C (98.6 ??F)] Heart Rate Heart Rate: [59] Blood Pressure BP: (89-134)/(46-82) Respiratory Rate Resp: [16-18] SpO2 SpO2: [93 %-97 %] Intake/Output Summary (Last 24 hours) at 08/29/20192208 Last data filed at 08/29/2019 1200 Gross per 24 hour Intake 200 ml Output 1150 ml Net -950 ml Patient Vitals for the past 168 hrs: Weight 08/28/19 0105 56.5 kg (124 lb 9 oz) Body mass index is 22.78 kg/m??. Physical Exam Constitutional: AAO, NAD HEENT: sclera anicteric, edentulous Respiratory: CTAB CV: RRR, no murmur GI: soft, NT, ND, BS+ Ext: no edema Neuro: AAOx3, 5/5 strength in RUE and RLE, +L hemiparesis Skin/Lines: no rashes Studies reviewed in eDH. Remarkable for the following: LABS: Last 3 wbc, hgb, hct plt Recent Labs 08/28/19 023 WBC 6.0 HGB 13.1* HCT 40.4* PLATELET 128* Last 3 Lytes Recent Labs 08/28/19 023 NA 140 K 4.1 CL 104 CO2 26 BUN 13 CREATININE 1.05 Last 3 LFTs Recent Labs 08/28/19 0230 AST 17 ALT 11 ALKPHOS 113 BILITOT 0.3 Last Ca, Mg, Phos Recent Labs 08/28/19 023 CALCIUM 9.0 PHOS 3.6 Last 3 Coags Recent Labs 08/28/19 0230 PT 14.3* INR 1.2 PTT 35 Last 3 ProBNP, Trop, CK Recent Labs 08/28/19 1150 08/28/19 0557 08/28/19 0230 TROPONINT <0.01 <0.01 <0.01 PROBNP -- -- 312* Last 3 TFT No results for input(s): TSH in the last 7068 hours. Invalid input(s): T4, FT4 FSBG Trend Recent Labs 08/28/19 1615 08/28/19 0113 POCGLU 93 97 MICRO: No results for input(s): URINECULTURE in the last 720 hours. No results for input(s): GRAMSTAIN, BFCX, LOWERRESPCX, TISSUECX in the last 720 hours. No results for input(s): BLOODCX in the last 720 hours. ECG: Recent Labs 08/28/19 022 DIAGLINE Marked sinus bradycardia Nonspecific T wave abnormality Cannot rule out Inferior infarct (cited on or before 18-SEP-2016) Abnormal ECG When compared with ECG of 13-OCT-2016 10:08, Vent. rate has decreased BY 26 BPM Confirmed by MD Marilee, Jameel Virgen ([id number]) on 08/28/2019 12:19:29 PM QTCCALC 437 VASCULAR: No results for input(s): VBTEXTRPT in the last 720 hours. Radiology: CXR - Mild pulmonary edema. AXR - 1. Nonobstructive bowel gas pattern. 2. Moderate stool burden ascending and transverse colon. OSH CTPE - Normal pulmonary arteries, no pulmonary emboli. No aortic aneurysm or dissection. No significant stenosis in vessels. OSH CT Head and Neck - Old left temporal lobe cortical infarct. Up to 20% stenosis in the right ICA origin. Non significantplaque in the origin of the left ICA. ?? Other Studies: EKG - sinus bradycardia, Q waves II, III, aVR Echocardiogram - 1. The left ventricular chamber size is normal. Global left ventricular systolic function is moderately reduced. The quantitative left ventricular ejection fraction by biplane Jaramillo's method is 35%. There are left ventricular segmental wall motion abnormalities present, as shown in the diagram below. 2. Right ventricular chamber size, wall thickness, and systolic function are within normal limits. 3. The left atrium is moderately dilated. 4. The aortic valve is tricuspid. Mild (1+/4+) aortic valve regurgitation is present. There is no evidence of aortic valve stenosis. 5. There is mild (1+/4+) mitral regurgitation present. There is posterior mitral annular calcification. Assessment: Mr. Pérez is a 64 year-old right-handed male with a history of TBI, PTSD, PE on DOAC (unclear history or timing of PE), CVA (2010 with persistent left sided weakness), HTN, HLD, ASCVD (STEMI s/p BMS to dLCx 09/2016), HFrEF (EF 52% post intervention 2015), cervical stenosis (s/p C3-6 laminectomy), and 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 Initial concern for cardiac chest pain given CAD and somewhat lower EF compared to past, but now that his MS is clear and he is able to relate the pain to movement of the (hemiparetic) left arm and hasvery clearly reproducible pain on palpation of L pectoral muscle it is now clear that pain is muscular. Although there was some question of ventricular tachycardia prior to admission and amiodarone was given, there has only been one episode of non-sustained ventricular tachycardia on telemetry here and amiodarone has been stopped. Cardiology recommends managing with standard HFrEF GDMT as possible. Regarding seizures, he has been free of seizure activity for the past 24 hrs and per Neuro we are getting him back on his usual AED's plus Keppra back up to usual dose of 100 mg bid. Need to clarify his outpt AED regimen and med regimen in general. He has also voiced passive suicidal ideation, saying he wants to be with his , who recently , and this is why he has only intermittently been taking medications at home. He denies any active suicidal ideation or plan. Regarding his disposition, he currently lives alone in a mobile home and is wheelchair bound. Reports that he has visiting nurse who organizes his meds - he does not know his meds. Also has a son - unclear how much support the son provides. Medication List (per SureScripts - need to verify): - all medications listed below have recent pharmacy fill unless noted otherwise - albuterol nebulizer - ventolin inhaler - apixaban 5 mg BID - clopidogrel 75 mg - fentanyl patch 50 mcg/hr - Imdur 20 mg daily - metoprolol tartrate 25 mg daily - pantoprazole 40 mg daily - phenytoin 200 mg qhs (not filled since 2017) - atorvastatin 80 mg daily - flovent 220 mcg one puff BID - gabapentin 300 mg every morning and afternoon, 600 mg every evening - lisinopril 5 mg daily - trazadone 200 mg qhs - aspirin 81 mg - lamotrigine 100 mg BID ?? # Focal Epilepsy with recent seizure activity - s/p 1500mg keppra at OSH - neurology recommendations: -phenytoin 100 mg AM 200 mg PM -keppra 500 mg BID until back on home lamotrigine dose -start lamotrigine 50 mg BID for one week then increase to 100 mg BID - recreation programmer, phenytoin may not be ideal medication as it decrease serum levels of apixiban, discuss further with neurology - continue lorazepam 1mg prn seizures - if seizure, call neurology and discuss need for phenytoin load ? - no current recommendation for EEG - follow-up lamotrigine and phenytoin levels - neuro checks q4hr?? - seizure precautions ?? # PTSD/Depression # Passive SI - continue [home] citalopram??20mg daily - d/c sitter ?? # ASCVD (STEMI 2016 s/p BMS to dLCx) # Atypical chest pain # Non-sustained ventricular tachycardia # HTN - s/p 150mg amiodarone bolus and gtt started at OSH, discontinued for now, monitoring - continue telemetry?? - TTE as above - Troponin negative x 3 - stop Aspirin due to hx of possible Aspirin allergy and no indication for triple therapy per Cardiology - continue clopidogrel and apixaban - continue atorvastatin 80mg daily?? - hold [home] metoprolol 12.5 bid in setting of bradycardia - resume ACEi and nitrate as tolerated - strict I/Os - K to 4, Mg to 1 - appreciate cardiology consultation # Chronic neuropathic pain - resume fentanyl patch now that MS clear - oxycodone 2.5 mg prn pain (until fentanyl patch kicks back in) - continue home gabapentin (but clarify dose) ?? # History of pulmonary embolism - unclear timing, outside records from [facility] reference a CT PE study done 10/2018 so presume this is when he had his PE - given uncertain around timing and if any provoking factors were present, restart apixaban for now pending further details about pulmonary embolism history ?? # History of possible COPD - continue home fluticasone inhaler - duonebs prn? # Abdominal pain, likely constipation - KUB showed mod-large stool burden?? - Started on Miralax ?? # GERD - continue??[home]??pantoprazole 40mg daily IV access: piv Tubes/Drains: none DVT PPX: restarted apixaban Anticipated Disposition: consult PT/OT, anticipate that he dispo will be home with more support potentially as soon as tomorrow (08/30) if stable Goals of Care: Full code Team Pager( Coverage 24/05): #[phone] PCP: Aissatou Briggs, SENIOR INSIGHT MANAGER [phone] Attestation: IPI Certification I certify that I am a D-[facility] credentialed attending provider with admitting privileges and that the patient meets or has met medical necessity to require an inpatient IPI level of care meeting a minimum of two midnights or is on the CMS inpatient only procedure list (status C) due to: chest pain, seizure, and altered mental status. BUBBA MCDANIELS MD 08/29/2019 Esther Callaway RN - 08/29/2019 11:51 AM EDT OFFICE OF CARE MANAGEMENT Tool Polishing Machine Operator Follow-up Note S/O: Discussed plan of care with Primary team and Nursing to assess continuing care and discharge needs. LOS: 1 day Primary Insurance: MEDICARE Secondary Insurance: N/A DECISION MAKER: Patient able to make decisions for himself, but some psych issues and would need to defer to patients son. Unable to reach him at this time. Pt continues to require hospitalization for: 08/29 Dr Kingsley H&P: 64 y.o.??male??with the 64 year-old right- handed??male??with a history of??TBI,??PTSD,??PE on DOAC (unclear history or timing of PE),??CVA (2010 with persistent left??sided??weakness), HTN, HLD, ASCVD (STEMI s/p BMS to dLCx 09/2016), HFrEF (EF 52% post intervention 2015), cervical stenosis (s/p C3-6 laminectomy), and focal epilepsy (on AEDs) who presents as a transfer from [facility] for??atypical chest pain, possible NSVT, and??seizures in the setting of??medication non-compliance. Chest pain may be secondary to stress cardiomyopathy given above TTE result. Troponin has been neg ative and EKG has been non-ischemic. Although there was some question of ventricular tachycardia prior to admission and amiodarone was given, there was only one episode of non-sustained ventricular tachycardia on telemetry overnight and amiodarone has been stopped. Cardiology consult pending. Regarding seizures, awaiting neurology recommendations for anti-epileptic regimen. Per report of the ICU team, he had one seizure overnight that was self-limited and ativan was not given. Regarding his disposition, he currently lives alone in a mobile home and is wheelchair bound. His son occasionally helps with medical care. I was unable to reach his son by telephone (nor was the ICU care management nurse), although his son called in to talk to the ICU bedside nurse and said he may visit tomorrow. He does have passive suicidal ideation, he says he wants to be with his , who recently , and this is why he has only intermittently been taking medications at home. He denies intentional overdose or an active suicidal plan. He could not verify any of his home medications when I listed them out loud. He has recent prescriptions filled for fentanyl patches on SureScripts. Given this I will transition to oxycodone to prevent opiate withdrawal but to allow for more rapid titration of opiates, base d upon mental status. Looking for an update from patient [facility] regarding social situation. The patient/corporate representative has been provided a list of Home Health Agencies/DME vendors which serve their preferred geographic area. A letter describing our affiliations was reviewed with them and theywere educated about their right to choose where referrals are placed. Patient requests referral to [facility]. Expected date of discharge: 08/31. Referral routed to the Shipping Coordinator for matching with agency/vendor and to provide any required information. A: FLAKO Read will see patient and team is figuring out his clinical picture. Discharge home with [facility] by [facility] rehab at this time. P:Tool Polishing Machine Operator to follow with team and family to assist with discharge needs when patient ready for discharge. Esther Callaway RN, Tool Polishing Machine Operator Pager #[phone] Laury Vincent RN - 08/29/2019 10:17 AM EDT 1015 AM- CM received return call from pt's listed [facility] staff [phone] (in response to this CM's phone VM left yesterday) CM asked if pt's S/O Mery had unexpectedly and Mojgan stated yes, pt found her at home in bed,called 911 but S/O in ED Pt is wheelchair bound. Son Dev livers sporadically with pt. Mojgan gave this CM Dev's last known cell phone [phone]. This CM placed cell number on CM sticky note. CM stated that thi CM had suggested that pt enter a SNF for rehab as he is now living alone, and will require med adjustments, labs, therapy. CM had given pt a SNF list yesterday. Mojgan stated pt definitely requires help more than [facility] can provide and that [facility] had been involved at /with the pt, S/O and Dev as family dynamics were contentious. Micaela Vincent , RN,BSN Tool Polishing Machine Operator ICU Pager [phone] Chino Tello MD - 08/29/2019 7:03 AM EDT Neurology Consult Note Patient name:Miguel Pérez Date of :1955 Admit date: 08/28/2019 Primary Attending: Miguel Kingsley MD Neurology Consult Attending: Dr. Lord CC: Seizure We have been asked to see Miguel Pérez by Dr. Kingsley ID: Miguel Pérez is a 64 y.o. TBI, PTSD, PE on DOAC (unclear history), Lacunar Infarct (2010 with persistent left sided weakness), HTN, HLD, ASCVD (STEMI s/p BMS to dLCx 09/2016), HFrEF (EF 52% post intervention 2015), cervical stenosis (s/p C3-6 laminectomy), and 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 Interval History -Transferred to floor status -On 1-to-1 for suicidal ideation -Resume Dilantin 100 mg QAM and 200 QPM -Restarting Lamictal 50 mg BID (half home dose) for 1 week -hypotensive this morning (90's/40's) -Agitated overnight complaining of pain/withdrawal symptoms. Per patient, he was prescribed Fentanylpatches by Dr. Sanford for generalized body pain. His current fentanyl prescription is being managed by his PCP -Awaiting Lamotrigine Levels Past Medical & Surgical History: Past Medical History: Diagnosis Date ??? CAD (coronary artery disease), viejas coronary artery ??? Epilepsy ??? GERD (gastroesophageal reflux disease) ??? ST elevation myocardial infarction (STEMI) involving left circumflex coronary artery in recoveryphase ??? TBI (traumatic brain injury) Past Surgical History: Procedure Laterality Date ? ? PRO LAMINECTOMY, >2 SGMT, CERVICAL N/A 10/12/2016 LAMINECTOMY DECOMPRESSION > 2 SEGMENTS,CX (WRVU 20.85) performed by Hua Bullard MD at [facility] MAIN OR Home Medications: No current facility-administered medications on file prior to encounter. Current Outpatient Medications on File Prior to Encounter Medication Sig Dispense Refill ??? ibuprofen (ADVIL;MOTRIN) 800 mg Tablet Take 800 mg by mouth 2 times daily. ??? gabapentin (NEURONTIN) 300 mg Capsule Take 600 mg by mouth 4 times daily. 300 mg in the morning and afternoon; 600 mg at night ??? atorvastatin (LIPITOR) 80 mg Tablet Take [...] lungs every 4 hours as needed. ??? docusate sodium (COLACE) 100 mg capsule Take 100 mg by mouth daily. ??? aspirin 81 mg EC tablet Take 81 mg by mouth daily. ??? fluticasone (FLOVENT) 110 mcg/Actuation inhaler Inhale 1 puff into the lungs 2 times daily. 1 Inhaler 3 ??? triamcinolone (KENALOG) 0.1 % Cream apply to the itchy areas on the arms and trunk BID 80 g 0 ??? acetaminophen (TYLENOL) 325 mg Tablet Take 2 tablets by mouth every 4 hours as needed for Pain (mild pain). 30 tablet 1 ??? lamoTRIgine (LAMICTAL) 100 mg Tablet Take 100 mg by mouth 2 times daily. ??? NITROSTAT 0.4 mg Tablet, Sublingual Place 0.4 mg under the tongue every 5 minutes as needed. Reported on 12/08/2016 ??? meloxicam (MOBIC) 15 mg Tablet Take 15 mg by mouth daily. ??? phenytoin (DILANTIN KAPSEAL) 100 mg Capsule Take 1 capsule by mouth every morning, and 2 capsules every evening. Brand name only. 180 tablet 3 ??? traZODone (DESYREL) 100 mg tablet Take 200 mg by mouth nightly. Hospital Medications: Scheduled Meds: ??? aspirin 81 mg Oral Daily ??? atorvastatin 80 mg Oral Daily ??? citalopram 40 mg Oral Daily ??? gabapentin 600 mg Oral 4 Times Daily ??? traZODone 200 mg Oral Nightly ??? clopidogrel 75 mg Oral Daily ??? pantoprazole 40 mg Oral Daily ??? mometasone 1 puff Inhalation BID ??? polyethylene glycol (MIRALAX)oral powder 17 g Oral Daily ??? levETIRAcetam 500 mg Oral BID ??? acetaminophen 650 mg Oral Q6H MALIKA ??? apixaban 5 mg Oral BID ??? phenytoin 100 mg Oral QAM ??? phenytoin 200 mg Oral QPM ??? lamoTRIgine 50 mg Oral BID Continuous Infusions: PRN Meds:.oxyCODONE, LORazepam, ipratropium-albuterol, acetaminophen Allergies: Allergies Allergen Reactions ??? Abilify [Aripiprazole] Rash ??? Codeine Nausea And Vomiting and Rash ??? Oxycodone Rash Headache Family history: Family History Problem Relation Age of Onset ??? Lung Cancer Brother ??? Heart Disease Mother ??? Heart Disease Sister Social history: Social History Socioeconomic History ??? Marital status: Spouse name: Not on file ??? Number of children: Not on file ??? Years of education: Not on file ??? Highest education level: Not on file Occupational History ??? Not on file Social Needs ??? Financial resource strain: Not on file ??? Food insecurity: Worry: Not on file Inability: Not on file ??? Transportation needs: Medical: Not on file Non-medical: Not on file Tobacco Use ??? Smoking status: Former Smoker Types: Cigarettes Last attempt to quit: 05/14/2008 Years since quittin.2 ??? Smokeless tobacco: Never Used Substance and Sexual Activity ??? Alcohol use: No ??? Drug use: No ??? Sexual activity: Not on file Comment: deferred Lifestyle ??? Physical activity: Days per week: Not on file Minutes per session: Not on file ??? Stress: Not on file Relationships ??? Social connections: Talks on phone: Not on file Gets together: Not on file Attends taoist service: Not on file Active member of club or organization: Not on file Attends meetings of clubs or organizations: Not on file Relationship status: Not on file ??? Intimate partner violence: Fear of current or ex partner: Not on file Emotionally abused: Not on file Physically abused: Not on file Forced sexual activity: Not on file Other Topics Concern ??? Not on file Social History Narrative ??? Not on file Review of systems: Constitutional: No fevers or chills Eyes: No vision changes, no diplopia, no blurry vision ENT: No rhinorrhea or pharyngitis, no meningismus CV: No chest pain or palpitations Resp: No cough, no shortness of breath GI: No nausea, vomiting, diarrhea or constipation : No dysuria, no incontinence Heme: No bleeding or bruising Endo: No polyuria or cold intolerance Neuro: See HPI Psych: No depression, normal sleep [x] Review of systems otherwise negative Physical Exam: Vitals: Temp: [36.3 ??C (97.3 ??F)-37 ??C (98.6 ??F)] Heart Rate: [48-63] Resp: [9-17] BP: (89-140)/(46-79) SpO2: [90 %-99 %] Heart Rate from SpO2: [47 bpm-61 bpm] Gen: Patient of apparent stated age, well nourished, well developed, awake, alert, NAD Neck: Supple, no meningismus, no carotid bruit, no occipital tenderness Mouth: NO mucocutaneous lesion CV: + S1, S2, RRR, no murmur Resp: CTA B/L Neuro Exam: MS: AAOx2, clear language, no dysarthria, follows commands CN: PERRL, EOMI, visual trujillo full, bilateral horizontal nystagmus Facial sensation intact, no facial asymmetry Hearing intact to finger rub Palate elevates symmetrically, tongue protrudes midline SCM and trap strength intact Motor: Normal bulk and tone. 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 Finger to Nose Gait: Did not assess Labs: Recent Results (from the past 24 hour(s)) Troponin Result Value Ref Range Troponin-T <0.01 0.00 - 0.00 ng/mL POCT Glucose Result Value Ref Range POC Glucose 93 65 - 199 mg/dL Urinalysis without microscopic Result Value Ref Range Glucose UA Negative Negative mg/dL Protein UA Negative Negative mg/dL Bilirubin UA Negative Negative mg/dL Urobilinogen UA Normal Normal mg/dL pH UA 6.0 5.0 - 8.0 Blood UA Small (A) Negative mg/dL Ketones UA Negative Negative mg/dL Nitrite UA Negative Negative Leukocytes UA Negative Negative mcL Appearance UA Clear Clear Spec [place] UA 1.018 1.002 - 1.030 Color UA Yellow Yellow Diagnostic Tests and Imaging: None Assessment / Recommendations: Miguel Pérez is a 64 y.o. 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 In the setting of the recent passing of his and subsequent depression there is concern that he is no longer taking his seizure medications. AED levels for Dilantin and Lamotrigine should be obtained to assess for compliance. Also, obtaining collateral information from his son and pharmacywill be imperative in clarifying his compliance and current AED regimen.Unfortunately, it is unclearwhat his current home AED regimen is. This problem is further complicated since he has not been seenby Neurology since 2017. Based on his previous outpatient notes he was stable on Lamotrigine and Dilantin. Review of his SureScripts suggest he was on Dilantin 100 mg capsule QAM and 200 mg QPM and Lamotrigine 100 mg tablet BID. Dilantin may be started at his home dose; however, for lamotrigine we recommend starting him at 50 mg BID for 1 week before increasing to 100 mg BID. Keppra can be continued until he is back on his home AED regimen. On examination, he had bilateral horizontal nystagmus with end stage lateral gaze, this may be a sign of Dilantin toxicity. We recommend checking a Dilantin level, free, and total prior to his next dilantin dose (or 8 hours after last dose). Fortunately, he is not exhibiting mucocutaneous lesions or rashes after starting his lamotrigine. #Seizure disroder -Check Dilantin and Lamotrigine Levels -c/w Dilantin 100 mg QAM and 200 mg QPM -c/w Lamotrigine 50 mg BID for 1 week THEN INCREASE to 100 mg BID -Continue with Keppra 500 mg BID until patient is on his home dose of Lamotrigine. Deana Lovett MD Neurology Resident General Neurology Consult [phone] Neurology Staff Note I have reviewed the above resident's history during the visit and I agree with the details as written. My physical examination confirms the resident's findings. The assessment and plan were formulated in discussion with me at the time of the visit and I agree with them as documented. Chino Tello MD Joslyn Light RN - 08/28/2019 6:30 PM EDT Pt arrived to unit at 1830. Pt A&O, VSS, pt denies needs at this time other than wanting a warm blanket. Nurse to Nurse report given by Matthias JOSHUA. Sitter to remain at bedside until Psych consult is done, Pt did express SI but doesn't have a plan at this time. Guido Stone MD - 08/28/2019 6:31 AM EDT CRITICAL CARE MEDICINE PROGRESS NOTE Patient info: Name: Miguel Pérez : 1955 Date of Admission: 08/28/2019 ( Hospital Day 0 days ) Responsible Attending:Maximus Menezes MD ID: 64 y.o. male right-handed with a history of TBI, PTSD, PE on DOAC (unclear history), CVA (2010 with persistent left sided weakness), HTN, HLD, ASCVD (STEMI s/p BMS to dLCx 09/2016), HFrEF (EF 52% post intervention 2015), cervical stenosis (s/p C3-6 laminectomy), and focal epilepsy (on AEDs) who presents as a transfer from [facility] for atypical chest pain, possible NSVT, and seizures in the setting ofmedication non-compliance. Hospital Problem List: Active Hospital Problems Diagnosis ??? Seizure Resolved Hospital Problems No resolved problems to display. 24 Hour Events/Subjective: - Admitted to MICU - Loaded with Keppra at OSH - Repeat troponin negative - Appears oriented to only self this AM Vitals: Last value Range last 24 hrs Temperature Temp: 36.8 ??C (98.2 ??F) Temp: [36.7 ??C (98.1 ??F)-36.8 ??C (98.2 ??F)] Heart Rate Heart Rate: (!) 46 Heart Rate: [46-58] Blood Pressure BP: 119/74 BP: (101-135)/(61-79) Respiratory Rate Resp: 14 Resp: [14-15] SpO2 SpO2: 100 % SpO2: [96 %-100 %] Physical Exam: General: Appears older than stated age, tired with eyes close, mumbling words HEENT: EOMI, edentulous, anicteric sclera. Oropharynx clear w/o lesions. Moist mucous membranes Neck: Supple with normal ROM. No JVD. Lymph: No obvious cervical LAD. Cardiac: Bradycardic. No murmurs. Respiratory: Nonlabored. Clear to auscultation bilaterally; No wheezes/ rhonci/ rales. Abd: Mild lower left and suprapubic tenderness. Non-distended. Soft. +BS. No guarding. Negative knight/mcburney. Ext: WWP without le edema, cyanosis or clubbing. DPP 2+ bilaterally. Neuro: Left ptosis. CN II-XII intact. 3/5 left upper/lower extremity, 5/5 right upper/lower extremity. Sensation intact throughout. Oriented to self and place. Skin: No obvious rashs, lesions or petechiae Labs: CBC: Recent Labs 08/28/19229 WBC 6.0 HGB 13.1* PLATELET 128* Chemistry: Recent Labs 08/28/19229 NA 140 K 4.1 CL 104 CO2 26 BUN 13 CREATININE 1.05 Recent Labs 08/28/19229 CALCIUM 9.0 MAGNESIUM 0.83 PHOS 3.6 LFT's: Recent Labs 08/28/19229 BILITOT 0.3 ALBUMIN 3.9 ALKPHOS 113 ALT 11 AST 17 Coags: Recent Labs 08/28/19229 PT 14.3* INR 1.2 PTT 35 Cardiac enzymes: Recent Labs 08/28/19229 TROPONINT <0.01 Microbiology: Microbiology Results (Last 30 days) No results found for the last 720 hours. Pertinent radiology/diagnostic studies: CXR (08/28): IMPRESSION Mild pulmonary edema. XR Abdomen (08/28): IMPRESSION 1. Nonobstructive bowel gas pattern. 2. Moderate stool burden ascending and transverse colon. Assessment: Miguel Pérez is a 64 y.o. male with the aofrementioned medical history who presents with chest pain and concern for seizure. His work up for the chest pain thus far his work up has been largely not concerning for ACS. It was reproducible this AM to palpation of the chest. Amiodarone was stopped given rhythm strip noted in H&P. In terms of the seizures, the history is unclear regarding his AED compliance and home medications. At this time, he does not necessitate critical care needs. It will be important to follow-up a formal ECHO with possible concern for stress cardiomyopathy. As well as discuss with his son, who helps him with medications, regarding his home AED regimen. Neurology/Sedation # Focal Epilepsy - s/p 1500mg keppra at OSH - continue keppra 500mg IV BID - hold [home] diazepam 2mg po BID - hold [home] lamotrigine 100mg daily - start: lorazepam 1mg prn for seizures - clarify home medications - follow-up lamotrigine levels - neuro checks q4hr - neurology consulted, appreciate recs ?? # PTSD/Depression - continue [home] citalopram 20mg daily ?? Cardiovascular # ASCVD (STEMI 2016 s/p BMS to dLCx) # Atypical chest pain - obtain TTE - Troponin negative x2 - continue ASA 81mg daily - continue clopidogrel 75mg daily - continue atorvastatin 80mg daily - hold [home] metoprolol 12.5 bid in setting of bradycardia - strict I/Os - K to 4, Mg to 1 ?? # HTN - hold [home] lisinopril 5mg daily ?? # Possible NSVT - s/p 150mg amiodarone bolus and gtt started at OSH, will discontinue for now and observe - continuous telemetry ?? # Sinus bradycardia - monitor on telemetry ?? Pulmonary/ID # History of PE: unclear history of when patient had a PE and for how long he has been taking DOAC. OSH CT PE without evidence of PE. - hold apixaban for now, identify if there's any other indication for DOAC ?? # Reactive airway disease - continue home fluticasone inhaler - duonebs prn ?? FEN/GI # Abdominal pain, likely constipation - KUB shows large stool burden - Started on Miralax ?? # GERD - continue [home] pantoprazole 40mg daily ?? /Renal - no active needs ?? Endo/Rheum - no active needs PPx: DVT- therapeutic AC GI- not indicated Code Status: Full Dispo- pending course ?? Guido Stone MD Internal Medicine PGY-1 Blue Team documented in this encounter H&P Notes Miguel Kingsley MD - 08/28/2019 10:58 AM EDT Inpatient - Admission Note Problem List: Active Hospital Problems Diagnosis ??? Seizure Resolved Hospital Problems No resolved problems to display. Active Non-Hospital Problems Diagnosis ??? Postoperative ileus ??? Cervical spondylosis ??? Unstable angina ??? Cervical stenosis of spinal canal ??? Testicle pain ??? ST elevation myocardial infarction (STEMI) of inferolateral wall, subsequent episode of care ??? CAD (coronary artery disease) ??? Epilepsy ??? Memory loss ??? TBI (traumatic brain injury) ??? Depression ??? GERD (gastroesophageal reflux disease) ??? Allergic rhinitis ??? Left-sided muscle weakness ??? Facial droop History of Present Illness: HPI Per ICU admission note: ID/Chief Complaint: 64 year-old right-handed male with a history of TBI, PTSD, PE on DOAC (unclear history), CVA (2010 with persistent left sided weakness), HTN, HLD, ASCVD (STEMI s/p BMS to dLCx 09/2016), HFrEF (EF 52% post intervention 2015), cervical stenosis (s/p C3-6 laminectomy), and focal epilepsy (on AEDs) who presents as a transfer from [facility] for atypical chest pain, possible NSVT, and seizures in the setting ofmedication non-compliance. ?? History of Present Illness: ?? History obtained from chart review given patient's cognitive state ?? The patient presented to [facility] with chest pain like someone was punching [him] in the chest and associated pre-syncope. Vitals: T 37 C, HR 62, RR 20, BP 140/85, SpO2 97% RA. EKG revealed nonspecific lateral ST changes. Troponin was negative. He had a questionable five second period of wide-complex rhythm however it appears to be sinus with baseline artifact without AV dissociation. He received 150mgamiodarone IV bolus. His chest pain resolved but he then had three episodes of possible tonic-clonicseizures, each lasting 20 seconds, within a 45 minute timespan. He was reportedly post-ictal initially however his mental status returned to baseline. During these episodes he was loaded with 1500mg keppra and received 1mg lorazepam. CTH was unremarkable. CTPE was also done to rule out dissection or pulmonary embolism; it was normal and showed no evidence of embolus. ?? On evaluation patient reports he has had chest pain like someone is stepping on my chest since this morning. The pain feels similar to his prior heart attack. He cannot detail aggravating or relieving factors. He denies pain prior to today. The pain was present at rest. He experienced lightheadedness and reports a fall without loss of conciousness but he did hit his head. On evaluation he denies dyspnea, nausea, vomiting, diaphoresis, syncope. He reports his recently one week ago because she was sick. The patient cannot detail the medications or AEDs he takes at home. ? OSH labs prior to transfer: ?? 14 ?? 7.5 H/H 128 ?? 43 ? 138 103 16 Glc ?? Ca 9.2 4.1 26 1.14 89 ?? Mg NA ? Phos NA ?? INR 1.0 VB.4/44/32/27 Pro-BNP: 323 Trop - undetectable Currently, he reports 4/10 chest pain without radiation that has been relieved by tylenol. No dyspnea, fever, chills, abdominal pain, nausea, emesis. He has chronic left arm and leg weakness related toa stroke for which he is wheelchair bound. He reports that he has missed some pills over the last few weeks Review of Systems: Review of Systems - unable to obtain secondary to patient's mental status and unwillingness to carry out a full conversation with me Past Medical and Surgical History: Past Medical History: Diagnosis Date ??? CAD (coronary artery disease), viejas coronary artery ??? Epilepsy ??? GERD (gastroesophageal reflux disease) ??? ST elevation myocardial infarction (STEMI) involving left circumflex coronary artery in recoveryphase ??? TBI (traumatic brain injury) Past Surgical History: Procedure Laterality Date ? ? PRO LAMINECTOMY, >2 SGMT, CERVICAL N/A 10/12/2016 LAMINECTOMY DECOMPRESSION > 2 SEGMENTS,CX (WRVU 20.85) performed by Hua Bullard MD at [facility] MAIN OR Prior To Admission Medications: Medications Prior to Admission Medication Sig Dispense Refill Last Dose ??? ibuprofen (ADVIL;MOTRIN) 800 mg Tablet Take 800 mg by mouth 2 times daily. Past Week at Unknown time ??? gabapentin (NEURONTIN) 300 mg Capsule Take 600 mg by mouth 4 times daily. 300 mg in the morning and afternoon; 600 mg at night Past Week at Unknown time ??? atorvastatin (LIPITOR) 80 mg Tablet Take 1 tablet by mouth daily. 90 tablet 3 Past Week at Unknown time ??? lisinopril (PRINIVIL;ZESTRIL) 5 mg Tablet Take 1 tablet by mouth daily. 90 tablet 3 Past Week atUnknown time ??? citalopram (CELEXA) 40 mg tablet Take 1 tablet by mouth daily. 90 tablet 3 Past Week at Unknown time ??? fluticasone (FLONASE) 50 mcg/actuation nasal spray 1 spray by Nasal route as needed. Past Week at Unknown time ??? Levalbuterol Tartrate (XOPENEX HFA) 45 mcg/actuation inhaler Inhale 1-2 puffs into the lungs every 4 hours as needed. Past Week at Unknown time ??? docusate sodium (COLACE) 100 mg capsule Take 100 mg by mouth daily. Past Week at Unknown time ??? aspirin 81 mg EC tablet Take 81 mg by mouth daily. Past Week at Unknown time ??? fluticasone (FLOVENT) 110 mcg/Actuation inhaler Inhale 1 puff into the lungs 2 times daily. 1 Inhaler 3 Past Week at Unknown time ??? triamcinolone (KENALOG) 0.1 % Cream apply to the itchy areas on the arms and trunk BID 80 g 0 ??? acetaminophen (TYLENOL) 325 mg Tablet Take 2 tablets by mouth every 4 hours as needed for Pain (mild pain). 30 tablet 1 Unknown at Unknown time ??? lamoTRIgine (LAMICTAL) 100 mg Tablet Take 100 mg by mouth 2 times daily. Unknown at Unknown time ??? NITROSTAT 0.4 mg Tablet, Sublingual Place 0.4 mg under the tongue every 5 minutes as needed. Reported on 12/08/2016 Unknown at Unknown time ??? meloxicam (MOBIC) 15 mg Tablet Take 15 mg by mouth daily. Unknown at Unknown time ??? phenytoin (DILANTIN KAPSEAL) 100 mg Capsule Take 1 capsule by mouth every morning, and 2 capsules every evening. Brand name only. 180 tablet 3 Unknown at Unknown time ??? traZODone (DESYREL) 100 mg tablet Take 200 mg by mouth nightly. Taking at Unknown time Allergies: Allergies Allergen Reactions ??? Abilify [Aripiprazole] Rash ??? Codeine Nausea And Vomiting and Rash ??? Oxycodone Rash Headache Family History: Family History Problem Relation Age of Onset ??? Lung Cancer Brother ??? Heart Disease Mother ??? Heart Disease Sister Social History and Habits: Social History Socioeconomic History ??? Marital status: Spouse name: Not on file ??? Number of children: Not on file ??? Years of education: Not on file ??? Highest education level: Not on file Occupational History ??? Not on file Social Needs ??? Financial resource strain: Not on file ??? Food insecurity: Worry: Not on file Inability: Not on file ??? Transportation needs: Medical: Not on file Non-medical: Not on file Tobacco Use ??? Smoking status: Former Smoker Types: Cigarettes Last attempt to quit: 05/14/2008 Years since quittin.2 ??? Smokeless tobacco: Never Used Substance and Sexual Activity ??? Alcohol use: No ??? Drug use: No ??? Sexual activity: Not on file Comment: deferred Lifestyle ??? Physical activity: Days per week: Not on file Minutes per session: Not on file ??? Stress: Not on file Relationships ??? Social connections: Talks on phone: Not on file Gets together: Not on file Attends taoist service: Not on file Active member of club or organization: Not on file Attends meetings of clubs or organizations: Not on file Relationship status: Not on file ??? Intimate partner violence: Fear of current or ex partner: Not on file Emotionally abused: Not on file Physically abused: Not on file Forced sexual activity: Not on file Other Topics Concern ??? Not on file Social History Narrative ??? Not on file Immunizations: There is no immunization history on file for this patient. Physical Exam: Last Set of Vitals and range of vitals over past 24 hours: Last value Range last 24 hrs Temperature Temp: 36.4 ??C (97.5 ??F) Temp: [36.4 ??C (97.5 ??F)-36.8 ??C (98.2 ??F)] Heart Rate Heart Rate: 51 Heart Rate: [46-58] Blood Pressure BP: 131/70 BP: (101-135)/(61-79) Respiratory Rate Resp: 9 Resp: [9-16] SpO2 SpO2: 97 % SpO2: [96 %-100 %] Physical Exam - nursing notes and vitals reviewed Constitutional: NAD Eyes: PERRL, EOMI HEENT: sclera anicteric, no conjunctival pallor, edentulous Neck: no cervical LAD, JVP not elevated Respiratory: Normal respiratory effort, no wheezing or crackles CV: RRR, s1 s2 normal, no m/r/g GI: soft, NT, ND, BS+ Ext: radial and TP pulses 2+ bilaterally Lymph: no peripheral edema Musculoskeletal: left hand and arm held in flexion contracture Neuro: oriented to place (hospital but not [facility]), year (2018) but not month, no facial asymmetry, symmetric eyebrow raise and grimace, tongue protrudes about mid-line, soft palate elevates symmetrically, unable to assess pronator drift on left but negative on right, 5/5 strength in RUE and RLE, 3+/5 in LUE and LLE Skin/Lines: no rashes, PIV Laboratory (Last 24 Hours): Recent Results (from the past 24 hour(s)) POCT Glucose Result Value Ref Range POC Glucose 97 65 - 199 mg/dL Troponin Result Value Ref Range Troponin-T <0.01 0.00 - 0.00 ng/mL pro-Brain Natriuretic Peptide Result Value Ref Range ProBNP 312 (H) <=125 pg/mL Lactate, whole blood, send to lab ([facility] Result Value Ref Range Lactate WB 1.0 0.5 - 2.2 mmol/L Prothrombin Time Result Value Ref Range PT 14.3 (H) 9.4 - 12.5 sec INR 1.2 APTT Result Value Ref Range PTT 35 25 - 37 sec Magnesium Result Value Ref Range Magnesium 0.83 0.69 - 1.07 mmol/L Phosphorus Result Value Ref Range Phosphorus 3.6 2.5 - 4.5 mg/dL CMP w/fasting Glucose Result Value Ref Range Glucose Fasting 99 65 - 99 mg/dL BUN 13 10 - 20 mg/dL Creatinine 1.05 0.80 - 1.50 mg/dL Sodium 140 135 - 145 mmol/L Potassium 4.1 3.5 - 5.0 mmol/L Chloride 104 98 - 107 mmol/L CO2 26 22 - 31 mmol/L Anion Gap 10 5 - 15 mmol/L Calcium 9.0 8.5 - 10.5 mg/dL Total Protein 6.1 6.1 - 8.0 gm/dL Albumin 3.9 3.2 - 5.2 gm/dL AST 17 0 - 39 unit/L ALT 11 0 - 55 unit/L Alk Phos 113 40 - 130 unit/L Total Bilirubin 0.3 0.2 - 1.3 mg/dL eGFR 75 >=60 mL/min/1.73 m?? eGFR 87 >=60 mL/min/1.73 m?? Hemogram Result Value Ref Range WBC 6.0 4.0 - 9.5 x10(3)/mcL RBC 4.46 (L) 4.58 - 5.54 x10(6)/mcL Hemoglobin 13.1 (L) 13.7 - 16.5 gm/dL Hematocrit 40.4 (L) 40.5 - 48.5 % MCV 90.6 82.9 - 93.1 fL MCH 29.4 27.5 - 32.1 pg MCHC 32.4 32.0 - 35.7 gm/dL Platelets 128 (L) 145 - 357 x10(3)/mcL RDWSD 46.5 (H) 36.0 - 45.0 fL RDWCV 13.9 (H) 11.4 - 13.8 % MPV 10.2 7.6 - 12.9 fL nRBC % Auto 0.0 % nRBC Abs Auto 0.000 0.000 - 0.000 x10(3)/mcL Differential, Automated Result Value Ref Range Neutrophils % 54.4 % Neutr Abs (ANC) 3.28 1.70 - 6.10 x10(3)/mcL Lymphocytes % 28.9 % Lymphocytes Abs 1.7 0.9 - 3.2 x10(3)/mcL Monocytes % 9.8 % Monocyte Abs 0.6 0.3 - 0.9 x10(3)/mcL Eosinophils % 5.5 % Eosinophils Abs 0.3 0.0 - 0.4 x10(3)/mcL Basophils % 1.2 % Basophils Abs 0.1 0.0 - 0.1 x10(3)/mcL Immature Gran % 0.20 % [place] Gran Abs 0.01 0.00 - 0.04 x10(3)/mcL Troponin Result Value Ref Range Troponin-T <0.01 0.00 - 0.00 ng/mL Radiology: CXR - Mild pulmonary edema. AXR - 1. Nonobstructive bowel gas pattern. 2. Moderate stool burden ascending and transverse colon. OSH CTPE - Normal pulmonary arteries, no pulmonary emboli. No aortic aneurysm or dissection. No significant stenosis in vessels. OSH CT Head and Neck - Old left temporal lobe cortical infarct. Up to 20% stenosis in the right ICA origin. Non significantplaque in the origin of the left ICA. ?? Other Studies: EKG - sinus bradycardia, Q waves II, III, aVR Echocardiogram - 1. The left ventricular chamber size is normal. Global left ventricular systolic function is moderately reduced. The quantitative left ventricular ejection fraction by biplane Jaramillo's method is 35%. There are left ventricular segmental wall motion abnormalities present, as shown in the diagram below. 2. Right ventricular chamber size, wall thickness, and systolic function are within normal limits. 3. The left atrium is moderately dilated. 4. The aortic valve is tricuspid. Mild (1+/4+) aortic valve regurgitation is present. There is no evidence of aortic valve stenosis. 5. There is mild (1+/4+) mitral regurgitation present. There is posterior mitral annular calcification. Assessment: Mr. Pérez is a 64 y.o. male with the 64 year-old right-handed male with a history of TBI, PTSD, PEon DOAC (unclear history or timing of PE), CVA (2010 with persistent left sided weakness), HTN, HLD,ASCVD (STEMI s/p BMS to dLCx 09/2016), HFrEF (EF 52% post intervention 2015), cervical stenosis (s/pC3-6 laminectomy), and 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 Chest pain may be secondary to stress cardiomyopathy given above TTE result. Troponin has been negative and EKG has been non- ischemic. Although there was some question of ventricular tachycardia prior to admission and amiodarone was given, there was only one episode of non-sustained ventricular tachycardia on telemetry overnight and amiodarone has been stopped. Cardiology consult pending. Regarding seizures, awaiting neurology recommendations for anti-epileptic regimen. Per report of the ICU team, he had one seizure overnight that was self-limited and ativan was not given. Regarding his disposition, he currently lives alone in a mobile home and is wheelchair bound. His son occasionally helps with medical care. I wasunable to reach his son by telephone (nor was the ICU care management nurse), although his son called in to talk to the ICU bedside nurse and said he may visit tomorrow. He does have passive suicidal ideation, he says he wants to be with his , who recently , and this is why he has only intermittently been taking medications at home. He denies intentional overdose or an active suicidal plan. He could not verify any of his home medications when I listed them out loud. He has recent prescriptions filled for fentanyl patches on [employer]. Given this I will transition to oxycodone to prevent opiate withdrawal but to allow for more rapid titration of opiates, based upon mental status. Medication List (per [employer] - need to verify with son when he is reachable): - all medications listed below have recent pharmacy fill unless noted otherwise - albuterol nebulizer - ventolin inhaler - apixaban 5 mg BID - clopidogrel 75 mg - fentanyl patch 50 mcg/hr - Imdur 20 mg daily - metoprolol tartrate 25 mg daily - pantoprazole 40 mg daily - phenytoin 200 mg qhs (not filled since 2017) - atorvastatin 80 mg daily - flovent 220 mcg one puff BID - gabapentin 300 mg every morning and afternoon, 600 mg every evening - lisinopril 5 mg daily - trazadone 200 mg qhs - aspirin 81 mg - lamotrigene 100 mg BID ?? # Focal Epilepsy with recent seizure activity - s/p 1500mg keppra at OSH - continue keppra 500mg IV BID?? - updated neurology recommendations about anti-epileptic regimen: phenytoin 100 mg AM 200 mg PM, keppra 500 mg BID until back on home lamotrigine dose, start lamotrigine 50 mg BID for one week then increase to 100 mg BID - recreation programmer, phenytoin may not be ideal medication as it decrease serum levels of apixiban, discuss further with neurology - continue lorazepam 1mg prn for seizures - if seizure, call neurology and discuss need for phenytoin load ? - no current recommendation for EEG - follow-up lamotrigine level - neuro checks q4hr?? - seizure precautions ?? # PTSD/Depression - continue [home] citalopram??20mg daily ?? # ASCVD (STEMI 2016 s/p BMS to dLCx) # Atypical chest pain # Stress cardiomyopathy (presumed) - TTE as above - Troponin negative x2?? - continue ASA 81mg daily - continue clopidogrel 75mg daily - continue atorvastatin 80mg daily?? - hold [home] metoprolol 12.5 bid in setting of bradycardia - strict I/Os - K to 4, Mg to 1 - cardiology consultation # Passive suicidal ideation - no current plan - 1:1 sitter until cleared by psychiatry, consult service paged this afternoon, no return call at this time # Presumed chronic pain syndrome - hold fentanyl patch given variable mental status and possible concomitant benzodiazepines - oxycodone 5-10 mg q[address] of fentanyl - home gabapentin ?? # Hypertension - hold [home] lisinopril 5mg daily? # Non-sustained ventricular tachycardia - s/p 150mg amiodarone bolus and gtt started at OSH, will discontinue for now and observe - continue telemetry? # Sinus bradycardia -??monitor on telemetry? # History of pulmonary embolism - unclear timing, outside records from [facility] reference a CT PE study done 10/2018 so I presume this is when he had his PE - given uncertain around timing and if any provoking factors were present, restart apixaban for now pending further details about pulmonary embolism history ?? # History of possible COPD - continue home fluticasone inhaler - duonebs prn? # Abdominal pain, likely constipation - KUB shows large stool burden?? - Started on Miralax ?? # GERD - continue??[home]??pantoprazole 40mg daily # Houskeeping ?? Transfer to hospital medicine pager #[phone] ?? Physical Therapy referral ?? DVT Prophylaxis - restart apixaban ?? If currently a smoker - advised about smoking cessation and will provide smoking cessation material and support. ?? Pneumovax and Influenza Immunizations given as needed. ?? Discussed Advanced Directives and Code Status. The patient wishesto be Full Code. IPI Certification I certify that I am a [facility] credentialed attending provider with admitting privileges and that the patient meets or has met medical necessity to require an inpatient IPI level of care meeting a minimum of two midnights or is on the CMS inpatient only procedure list (status C) due to: stress cardiomyopathy, seizure activity Miguel Kingsley MD 08/28/2019 Maximus Menezes MD - 08/27/2019 11:00 PM EDT Images from the original note were not included. Critical Care Medicine Admission History and Physical Patient Name: Miguel Pérez Service: Critical Care Medicine - Blue Team Responsible Attending: Maximus Menezes MD PCP: Aissatou Briggs APRN PCP phone #: [phone] ID/Chief Complaint: 64 year-old right-handed male with a history of TBI, PTSD, PE on DOAC (unclear history), CVA (2010 with persistent left sided weakness), HTN, HLD, ASCVD (STEMI s/p BMS to dLCx 09/2016), HFrEF (EF 52% post intervention 2015), cervical stenosis (s/p C3-6 laminectomy), and focal epilepsy (on AEDs) who presents as a transfer from [facility] for atypical chest pain, possible NSVT, and seizures in the setting ofmedication non-compliance. History of Present Illness: History obtained from chart review given patient's cognitive state The patient presented to [facility] with chest pain like someone was punching [him] in the chest and associated pre-syncope. Vitals: T 37 C, HR 62, RR 20, BP 140/85, SpO2 97% RA. EKG revealed nonspecific lateral ST changes. Troponin was negative. He had a questionable five second period of wide-complex rhythm however it appears to be sinus with baseline artifact without AV dissociation. He received 150mgamiodarone IV bolus. His chest pain resolved but he then had three episodes of possible tonic-clonicseizures, each lasting 20 seconds, within a 45 minute timespan. He was reportedly post-ictal initially however his mental status returned to baseline. During these episodes he was loaded with 1500mg keppra and received 1mg lorazepam. CTH was unremarkable. CTPE was also done to rule out dissection or pulmonary embolism; it was normal and showed no evidence of embolus. On evaluation patient reports he has had chest pain like someone is stepping on my chest since this morning. The pain feels similar to his prior heart attack. He cannot detail aggravating or relieving factors. He denies pain prior to today. The pain was present at rest. He experienced lightheadedness and reports a fall without loss of conciousness but he did hit his head. On evaluation he denies dyspnea, nausea, vomiting, diaphoresis, syncope. He reports his recently one week ago because she was sick. The patient cannot detail the medications or AEDs he takes at home. OSH labs prior to transfer: 14 7.5 H/H 128 43 138 103 16 Glc Ca 9.2 4.1 26 1.14 89 Mg NA Phos NA INR 1.0 VB.4/44/32/27 Pro-BNP: 323 Trop - undetectable Review of Systems: Unable to assess Problem List/Past Medical History Patient Active Problem List Diagnosis ??? Seizure ??? Postoperative ileus ??? Cervical spondylosis ??? Unstable angina ??? Cervical stenosis of [...] ??? Left-sided muscle weakness ??? Facial droop Meds: No current facility-administered medications on file prior to encounter. Current Outpatient Medications on File Prior to Encounter Medication Sig Dispense Refill ??? ibuprofen (ADVIL;MOTRIN) 800 mg Tablet Take 800 mg by mouth 2 times daily. ??? gabapentin (NEURONTIN) 300 mg Capsule Take 600 mg by mouth 4 times daily. 300 mg in the morning and afternoon; 600 mg at night ??? atorvastatin (LIPITOR) 80 mg Tablet Take [...] lungs every 4 hours as needed. ??? docusate sodium (COLACE) 100 mg capsule Take 100 mg by mouth daily. ??? aspirin 81 mg EC tablet Take 81 mg by mouth daily. ??? fluticasone (FLOVENT) 110 mcg/Actuation inhaler Inhale 1 puff into the lungs 2 times daily. 1 Inhaler 3 ??? triamcinolone (KENALOG) 0.1 % Cream apply to the itchy areas on the arms and trunk BID 80 g 0 ??? acetaminophen (TYLENOL) 325 mg Tablet Take 2 tablets by mouth every 4 hours as needed for Pain (mild pain). 30 tablet 1 ??? lamoTRIgine (LAMICTAL) 100 mg Tablet Take 100 mg by mouth 2 times daily. ??? NITROSTAT 0.4 mg Tablet, Sublingual Place 0.4 mg under the tongue every 5 minutes as needed. Reported on 12/08/2016 ??? meloxicam (MOBIC) 15 mg Tablet Take 15 mg by mouth daily. ??? phenytoin (DILANTIN KAPSEAL) 100 mg Capsule Take 1 capsule by mouth every morning, and 2 capsules every evening. Brand name only. 180 tablet 3 ??? traZODone (DESYREL) 100 mg tablet Take 200 mg by mouth nightly. Allergies: Allergies Allergen Reactions ??? Abilify [Aripiprazole] Rash ??? Codeine Nausea And Vomiting and Rash ??? Oxycodone Rash Headache Family History: Family History Problem Relation Age of Onset ??? Lung Cancer Brother ??? Heart Disease Mother ??? Heart Disease Sister Social History: Social History Tobacco Use ??? Smoking status: Former Smoker Types: Cigarettes Last attempt to quit: 05/14/2008 Years since quittin.2 ??? Smokeless tobacco: Never Used Substance Use Topics ??? Alcohol use: No ??? Drug use: No Vitals: Last value Range last 24 hrs Temperature Temp: 36.7 ??C (98.1 ??F) Temp: [36.7 ??C (98.1 ??F)] Heart Rate Heart Rate: (!) 49 Heart Rate: [47-58] Blood Pressure BP: 127/73 BP: (101-135)/(61-79) Respiratory Rate Resp: 15 Resp: [14-15] SpO2 SpO2: 96 % SpO2: [96 %-100 %] No intake/output data recorded. Examination: General: Appears older than stated age, tired with eyes close, mumbling words HEENT: EOMI, edentulous, anicteric sclera. Oropharynx clear w/o lesions. Moist mucous membranes Neck: Supple with normal ROM. No JVD. Lymph: No obvious cervical LAD. Cardiac: Bradycardic. No murmurs. Respiratory: Nonlabored. Clear to auscultation bilaterally; No wheezes/ rhonci/ rales. Abd: Mild lower left and suprapubic tenderness. Non-distended. Soft. +BS. No guarding. Negative knight/mcburney. Ext: WWP without le edema, cyanosis or clubbing. DPP 2+ bilaterally. Neuro: Left ptosis. CN II-XII intact. 3/5 left upper/lower extremity, 5/5 right upper/lower extremity. Sensation intact throughout. Oriented to self and place. Skin: No obvious rashs, lesions or petechiae Lines: PIV Laboratory: Recent Labs 08/28/19229 WBC 6.0 HGB 13.1* HCT 40.4* PLATELET 128* NEUTROABS 3.28 Recent Labs 08/28/19229 NA 140 K 4.1 CL 104 CO2 26 BUN 13 CREATININE 1.05 Recent Labs 08/28/19229 AST 17 ALT 11 ALKPHOS 113 BILITOT 0.3 Recent Labs 08/28/19229 CALCIUM 9.0 MAGNESIUM 0.83 PHOS 3.6 Recent Labs 08/28/19229 PT 14.3* PTT 35 No results for input(s): LDH, URICACID in the last 168 hours. Other Labs: None Microbiology: None Relevant Diagnostic Studies: CXR- pending EKG- Sinus bradycardia with q-waves in inferior leads, QTc 444 OSH CTPE- Normal pulmonary arteries, no pulmonary emboli. No aortic aneurysm or dissection. No significant stenosis in vessels. OSH EKG ASSESSMENT: 64 year-old male with aforementioned history notable for focal epilepsy disorder and STEMI in 2016 s/p BMS to RCA who presents as a transfer from OSH with atypical chest pain and seizure like activity.I do not think the patient is having ACS. His troponin is negative and EKG does not reveal ischemic changes. Limited bedside echo shows an EF around 35-45 % (which is lower than his prior noted EF of 52%). The rhythm strip from the OSH does not appear to be NSVT but rather just sinus rhythm with noise. Given his 's recent , stress cardiomyopathy is on the differential. It's unclear whether patient has been taking his home AEDs. I will hold diazepam and lamotrigine for now and continue keppra until this can be clarified. There is potential for diazepam withdrawal however patient tells me hehas not been taking his medications. The patient's son is supposed to be coming in who may be able to help clarify details; I attempted to reach him by phone to no avail. At present patient does not have critical care needs and I suspect he can be transferred to med/surg tomorrow. PLAN: # Admit to Critical Care, pager #[phone] Neurology/Sedation # Focal Epilepsy - s/p 1500mg keppra at OSH - continue keppra 500mg IV BID - hold [home] diazepam 2mg po BID - hold [home] lamotrigine 100mg daily - start: lorazepam 1mg prn for seizures - clarify home medications - follow-up lamotrigine levels - neuro checks q4hr - neurology consulted, appreciate recs # PTSD/Depression - continue [home] citalopram 20mg daily Cardiovascular # ASCVD (STEMI 2016 s/p BMS to dLCx) # Atypical chest pain - obtain TTE - trend troponin q6h to peak - continue ASA 81mg daily - continue clopidogrel 75mg daily - continue atorvastatin 80mg daily - hold [home] metoprolol 12.5 bid in setting of bradycardia - strict I/Os - K to 4, Mg to 1 # HTN - hold [home] lisinopril 5mg daily # Possible NSVT - s/p 150mg amiodarone bolus and gtt started at OSH, will discontinue for now and observe - continuous telemetry # Sinus bradycardia - monitor on telemetry Pulmonary/ID # History of PE: unclear history of when patient had a PE and for how long he has been taking DOAC. OSH CT PE without evidence of PE. - hold apixaban for now, identify if there's any other indication for DOAC # Reactive airway disease - continue home fluticasone inhaler - duonebs prn FEN/GI # Abdominal pain, unspecified - follow-up urinalysis - follow-up KUB # GERD - continue [home] pantoprazole 40mg daily /Renal - no active needs Endo/Rheum - no active needs PPx: DVT- therapeutic AC GI- not indicated Code Status: Full Dispo- pending course Christy Hess MD Attending Note Please see Dr. Hess's note for details of the patient history of presentation and data. I have discussed, reviewed and agree with the documented history, physical findings, assessment and plan of care. I have examined the patient myself and personally reviewed all studies. Additions to the history, physical exam, assessment and plan include the followin yo male admitted from [facility] after having seizure activity and developing atypical CP in setting ofknown seizure d/o and ASCVD. No seizure activity since admission and CP has resolved. Dissection andPE excluded. 1st 2 troponins neg. Bedside echo appears to have reduced EF compared to last echo on file which has EF of 50%. MS still not completely which may be from benzos and post-ictal state. He had not been taking his meds for a few days which may explain his acute presentation. Vital stable and will transfer to the floor. Seizure activity Keppra per neuro, off home Lamictal and Dilantin. Neuro consult. CP Continue cardiac meds. Send 3rd trop. Echo ordered. Other Off apixiban currently and should investigate whether he needs continued anticoag. Miralax for constipation. Checking UA for possible UTI. Avoid psychotropic meds. I saw this patient on 08/28 and billed for my services on this day. I certify that the patient requires: [x] inpatient care status due to seizure and CP [] Observation Care documented in this encounter Miscellaneous Notes Plan of Care - Dolly Mcqueen, PT - 08/30/2019 3:13 PM EDT Physical Therapy Evaluation Patient profile: Miguel Pérez is a 64 y.o. right handed male admitted on 08/28/[address] Bubba Mcdaniels MD for atypical chest pain, Seizures, pulmonary edema. Patient with the following active problems: Past Medical History: Diagnosis Date ??? CAD (coronary artery disease), viejas coronary artery ??? Epilepsy ??? GERD (gastroesophageal reflux disease) ??? ST elevation myocardial infarction (STEMI) involving left circumflex coronary artery in recoveryphase ??? TBI (traumatic brain injury) Past Surgical History: Procedure Laterality Date ? ? PRO LAMINECTOMY, >2 SGMT, CERVICAL N/A 10/12/2016 LAMINECTOMY DECOMPRESSION > 2 SEGMENTS,CX (WRVU 20.85) performed by Hua Bullard MD at [facility] MAIN OR Social History: Home set-up: Pt lives alone in a mobile home in [place], [place]; pt's son stays w/him often per pt Bathroom Set-up: tub shower w/bath bench, grab bar, Stairs: ramp to enter Baseline Mobility: Independent with w/c mobility, amb short distances w/FWW; son helps w/meals and pt gets meals on wheels. Pt goes to a day program at [employer] during the week. 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 Equipment at home: bath bench, w/c; hospital bed, FWW, canes Precautions/Special Considerations: fall risk, seizures, passive suicidal ideation; activity as tolerated Mobility and Positioning Recommendations: ?? Pt. to utilize FWW and supervision for ambulation and transfers with nursing. ?? Please encourage up to chair for meal times as able. ?? Pt encouraged to ambulate frequently with staff, getting into the bathroom for toileting and walking out in the burgess >/= 3 times daily as able. Subjective: ???it feels good to put pressure on that (L) leg?? while amb. Objective: Pt seen for evaluation today in collaboration w/OT Pain: (L) LE soreness w/increased wt bearing Vital Signs: Pt on RA At Rest With Activity SpO2 97% 95% HR 80 bpm 60 bpm Mental Status: alert, coop, able to follow instructions, reports decreased memory Vision: glasses fulltime Musculoskeletal: ROM/Strength: (R) extremity strength WFL, (L) extremity movement patterns Sensation: decreased sensation (L) side Bed Mobility: Supine to Sit/Sit to Supine: without assistance, HOB ~45 degrees Transfers: Sit to Stand: supervision chair>FWW Stand to Sit: supervision FWW >chair Bed to Chair: supervision w/out assistive device Gait: Distance: ~250' Device used: FWW Level of assist: Contact guard to supervision Gait mechanics: able to hold FWW w/(L) hand, able to clear floor on (L) during swing Balance: Sitting Static/Sitting Dynamic: able to maintain unsupported sitting balance EOB Standing Static/Standing Dynamic / Gait: Able to maintain standing balance w/FWW; able to maintain standing balance w/out arash device during stand pivot transfer Education: patient has been educated on Safety and verbalizes understanding. Patient status, treatment, and mobility recommendations discussed with nursing. Assessment: Miguel Pérez was seen today for physical therapy evaluation. Pt coop, presents w/impaired (L) ext movement, impaired functional mobility, impaired gait. The pt would benefit from skilled therapy services while in the hospital to maximize functional abilities. Discharge Recommendations: Based on the current findings, Anticipated Discharge Disposition: home with assist, home with home health when medically ready for hospital discharge. Consult Recommendations: No other consults recommended at this time. Equipment needs: Patient has all necessary equipment Goals: Safe discharge plans Plan: Therapy Frequency: evaluation only Patient/family understand and agree with plan as stated above. 2017 PT Evaluation Code Rationale: ?? Diagnosis & Pertinent Co-Morbidities, personal factors, and present illness affecting Plan ofCare: (see above); Additional personal factors or co- morbidities that impact plan: ?? Total # of Factors: 0 1-2 3+ x ?? Examination of body system impairments, functional limitations and behaviors, and/or participation restrictions. Addressing 1-2 elements Addressing 3 + elements x Addressing 4 + elements ?? Clinical presentation: See assessment above. Stable/Uncomplicated Evolving/Fluctuating Symptoms Unstable/Unpredictable x ?? Clinical decision making of low complexity based on pt's functional performance as outlined in this evaluation. Time IN / OUT:1440/1513 Total Evaluation Minutes, Physical Therapy: 33 DOLLY MCQUEEN, PT Pager: [phone] Physical Therapy Inpatient Rehabilitation Department Plan of Care - Gem Man RN - 08/30/2019 3:56 AM EDT Problem: Patient Care Overview Goal: Plan of Care Review Outcome: Ongoing (Interventions Implemented as Appropriate) 08/28/19 1652 08/29/19 2138 Coping/Psychosocial Plan Of Care Reviewed With -- patient Plan of Care Review Progress improving -- OUTCOME EVALUATION NOTE: OUTCOME SUMMARY: Patient is voiding adequate amounts using urinal. Neuro checks remain unchanged. Upper and lower extremity L sided weakness, and orientation confusion. Pain level 4-5/10. He c/o leg spasms, baclofen ordered with good effect. Seizure precautions maintained. No seizure activity noted. Will continue to monitor. PLAN MOVING FORWARD: Monitor for seizures, pain level, potential for dc to home with support INDIVIDUALIZED FALL PREVENTION INTERVENTIONS: Patient-specific fall risk factors per assessment: [current deficits]: Narcotics, mobility aid at home, history of falls, impulsive, confused, needs assistance getting out of bed or chair, pain with movement/ambulation Assistance [level of assistance required for transfers and ambulation]: 2 person assist, non-skid shoes/slippers Supervision [direct monitoring required during toileting and ADLs]: Eyes on, hands on Surveillance [continuous indirect monitoring]: Purposeful rounding, call bowles in reach, direct observation, bed/chair alarm Patient-specific fall prevention interventions for sensory deficits provided, if applicable: Lighting adjusted for task/safety CPG GOAL OUTCOME EVALUATION: Goal: Fall Prevention-Safe Patient Handling Outcome: Ongoing (Interventions Implemented as Appropriate) 08/28/19 1600 08/29/19 1800 08/29/19 2138 Restraint Interventions Safety Promotion/Fall Prevention -- -- activity supervised;fall prevention program maintained;nonskid shoes/slippers when out of bed;safety round/check completed Activity Activity Type -- -- activity adjusted per tolerance Activity Assistance Provided -- assistance, 1 person (stand and pivot) -- Assistive Device Utilized -- wheelchair -- Positioning Body Position -- -- -- Daily Care Interventions Self-Care Promotion independence encouraged -- -- [place] Fall Risk History of Falling -- -- 25 Secondary Diagnosis -- -- 15 Ambulatory Aids -- -- 0 Intravenous Therapy/Heparin/Saline Lock -- -- 20 Gait/Transferring -- -- 20 Mental Status -- -- 15 Score -- -- 95 OTHER [place] Fall Risk -- -- High 08/30/19 0200 Restraint Interventions Safety Promotion/Fall Prevention -- Activity Activity Type -- Activity Assistance Provided -- Assistive Device Utilized -- Positioning Body Position independent Daily Care Interventions Self-Care Promotion -- [place] Fall Risk History of Falling -- Secondary Diagnosis -- Ambulatory Aids -- Intravenous Therapy/Heparin/Saline Lock -- Gait/Transferring -- Mental Status -- Score -- OTHER [place] Fall Risk -- Goal: Interdisciplinary Rounds/Family Conf Outcome: Ongoing (Interventions Implemented as Appropriate) 08/29/19 0227 Interdisciplinary Rounds/Family Conf Participants patient;nursing;physician Plan of Care - Paula Staley RN - 08/29/2019 3:13 PM EDT Problem: Patient Care Overview Goal: Plan of Care Review Outcome: Ongoing (Interventions Implemented as Appropriate) 08/28/19 1652 08/29/19 0800 Coping/Psychosocial Plan Of Care Reviewed With -- patient Plan of Care Review Progress improving -- OUTCOME EVALUATION NOTE: OUTCOME SUMMARY: Pt orientation waxes and waned throughout shift ranging from oriented to self and place only, to being able to state the year as well. Pt never oriented to situation. VSS on RA. 1A stand and pivot. Pt c/o LLE pain and generalized pain, given scheduled tylenol w/good effect, see MAR. Q4H neuro checks remain unchanged except for waxing/waning orientation, see docflow. Pt given scheduled medications perMD orders, see MAR. Seizure precautions maintained, 1:1 sitter remained at bedside until discontinuation this evening. Fentanyl Patch applied to L shoulder this evening per orders, see MAR. Pt resting in bed, safety maintained. PLAN MOVING FORWARD: Q4H neuro checks, psych consult, safety maintenance INDIVIDUALIZED FALL PREVENTION INTERVENTIONS: Patient-specific fall risk factors per assessment: [current deficits]: Seizure precautions, gen weakness Assistance [level of assistance required for transfers and ambulation]: 1-2A for transfers Supervision [direct monitoring required during toileting and ADLs]: Hands-on, eyes-on Surveillance [continuous indirect monitoring]: Masimo, bed alarm, purposeful rounding and safety checks, 1:1 sitter Patient-specific fall prevention interventions for sensory deficits provided, if applicable: [X] N/A CPG GOAL OUTCOME EVALUATION: Consult Note - Wendy Mercado RD - 08/29/2019 9:12 AM EDT Nutrition Consult Note Miguel Pérez is a 64 y.o. male Reason for intervention: Consult protein-calorie malnutrition Nutrition Recommendations: Regular diet Boost Plus daily for trial MVI with minerals Patient Active Problem List Diagnosis Code ??? CAD (coronary artery disease) I25.10 ??? Epilepsy G40.909 ??? Memory loss R41.3 ??? TBI (traumatic brain injury) S06.9X9A ??? Depression F32.9 ??? GERD (gastroesophageal reflux disease) K21.9 ??? Allergic rhinitis J30.9 ??? Left-sided muscle weakness M62.81 ??? Facial droop R29.810 ??? ST elevation myocardial infarction (STEMI) of inferolateral wall, subsequent episode of care I21.19 ??? Testicle pain N50.819 ??? Cervical stenosis of spinal canal M48.02 ??? Unstable angina I20.0 ??? Cervical spondylosis M47.812 ??? Postoperative ileus K91.89, K56.7 ??? Seizure R56.9 Past Medical History: Diagnosis Date ??? CAD (coronary artery disease), viejas coronary artery ??? Epilepsy ??? GERD (gastroesophageal reflux disease) ??? ST elevation myocardial infarction (STEMI) involving left circumflex coronary artery in recoveryphase ??? TBI (traumatic brain injury) Active Orders Diet Regular diet Frequency: Effective Now Number of Occurrences: Until Specified Admit Weight: 56.5 kg Estimated body mass index is 22.78 kg/m?? as calculated from the following: Height as of this encounter: 157.5 cm (5' 2). Weight as of this encounter: 56.5 kg (124 lb 9 oz). Wt Readings from Last 12 Encounters: 08/28/19 56.5 kg (124 lb 9 oz) 12/08/16 59.4 kg (131 lb) 10/12/16 64 kg (141 lb) 09/19/16 62 kg (136 lb 11 oz) 09/17/16 68.9 kg (152 lb) 09/01/16 64.4 kg (142 lb) 07/29/16 63.7 kg (140 lb 6.4 oz) 05/19/16 59.9 kg (132 lb) 04/02/15 66.2 kg (146 lb) 04/01/15 64.4 kg (142 lb) 04/02/14 68.9 kg (152 lb) 04/02/14 68.1 kg (150 lb 3.2 oz) no recent weights available, noted that current weight does seem low from previous weights in past 5years Estimated needs: Calories: 1700kcal Protein: 70 grams Today's medications: reviewed Lab Results Component Value Date NA 140 08/28/2019 K 4.1 08/28/2019 CL 104 08/28/2019 CO2 26 08/28/2019 BUN 13 08/28/2019 CREATININE 1.05 08/28/2019 GLUCOSE 111 09/19/2016 MAGNESIUM 0.83 08/28/2019 CALCIUM 9.0 08/28/2019 PHOS 3.6 08/28/2019 AST 17 08/28/2019 ALT 11 08/28/2019 ALKPHOS 113 08/28/2019 BILITOT 0.3 08/28/2019 BILIDIR 0.1 04/16/2011 TRIG 59 09/18/2016 Last Bowel Movement: (befroe admission) Assessment: Patient is sleeping soundly, 1:1 at bedside. Reports patient ate breakfast ~75%. Unable to complete nutrition focused physical exam as patient is sleeping but visually noted: Moderate muscle wasting to clavicle and Mild to moderate sunken buccal region. Will obtain further information on home nutrition and physically assess as able/approprite. No noted criteria for malnutrition at this time. Wheelchair bound at baseline, social stress of 's passing 6 weeks ago noted Nutrition to continue to follow up while inpatient THANKS TOO Watson Beeper #: [id number] Plan of Care - Mirna Caballero RN - 08/29/2019 2:39 AM EDT Problem: Patient Care Overview Goal: Plan of Care Review Outcome: Ongoing (Interventions Implemented as Appropriate) 08/28/19 1652 08/28/192009 Coping/Psychosocial Plan Of Care Reviewed With -- patient Plan of Care Review Progress improving -- OUTCOME EVALUATION NOTE: OUTCOME SUMMARY: Pt resting between care this shift. Neuro checks Q4 see doc flow. At 1999 pt able to answer all orientation questions and complete neuro exam and take pm meds. Around 2129, pt frequently asking sitter @ bedside for Fentanyl patch and flinging himself around in bed and moaning. Pt also sitting up in bed rocking back and forth. RN went to see pt, said pt's name, stopped what he was doing and answered questions. Pt told RN and sitter that he feels like he's, on coke and now its being taken away from him now that's he is here. pt frequently asking for his medical heroin. provider paged about pt's responses, no further actions at this time. Pt rang call light again and stated he was in pain all over. When RN assessed pt on his pain, pt unable to say where his pain was (pain all over my body), where pain originated from (I think it started in my brain maybe), could not give it a number from 0/10 ( I don't know it just hurts.) oxycodone 5 mg given x1. Pt slightly hypotensive @ 2300 and pt very lethargic during neuro check, but able to follow commands but slow to respond. UA obtained this shift. Sitter remains at bedside. Will continue to monitor. PLAN MOVING FORWARD: -Pain Control -Mobilize -seizure precautions -psych consult -sitter @ bedside INDIVIDUALIZED FALL PREVENTION: Pt is high fall risk d/t hx of seizures, medication regimen, intermittent confusion Assistance: ax1 Supervision: -Hands-on/eyes on for all transfers and ambulation Surveillance: -seizure precautions -purposeful Rounding -Team Care -Nurse Knowledge Exchange CPG OUTCOME EVALUATION: Plan of Care - Matthias Pedraza RN - 08/28/2019 5:06 PM EDT Problem: Patient Care Overview Goal: Plan of Care Review Outcome: Ongoing (Interventions Implemented as Appropriate) 08/28/19 1652 Coping/Psychosocial Plan Of Care Reviewed With patient;son Plan of Care Review Progress improving OUTCOME EVALUATION NOTE: OUTCOME SUMMARY: Pt is alert and oriented x4, following commands in all extremities, PERRL, 3/5 strength LUE and LLE,5/5 strength RUE and RLE. Pain managed with scheduled Tylenol and prn oxycodone 5 mg. At 1130 this morning pt expressed passive suicidal ideation. He stated that if given the opportunity he would kill h imself, however, he had no plan. He stated that he has stopped eating, drinking, and taking his medsand wishes to join his who passed 6 weeks ago. I just don't have the energy to make a plan. Team and charge notified, sitter at bedside. No seizures this shift. Sinus gabe, VSS on RA, afebrile. UOP adequate. ECHO performed, see results. PLAN MOVING FORWARD: Q4 neuro, seizure precautions, maintain safety, psych consult, transfer out of ICU CPG GOAL OUTCOME EVALUATION: Consult Note - Jameel Hunt MD - 08/28/2019 2:18 PM EDT Inpatient Cardiology Consult Note Date of Consultation: 08/28/2019 Admit Date: 08/28/2019 Place of Service: [facility] Hospital Day 0 days Reason for Consult: We are seeing Miguel Pérez at the request of MICU for cardiomyopathy. I have reviewed the available records, interviewed and examined the patient. Active Problems: Active Hospital Problems Diagnosis ??? Seizure Resolved Hospital Problems No resolved problems to display. HPI: Miguel Pérez is a 64 y.o. male PMH CAD (STEMI distal Cx 2010) with last LHC 2015, HFpEF EF 40%, TBI, PTSD, PE on NOAC, CVA 2010, HTN, HLD, cervical stenosis and epiles who presents to [facility] as transfer for seizures in the setting of medication non-compliance. Patient presented to OSH with chest pressure with negative workup for ischemia. There was concern for an arrhythmia but upon review of the telemetry it was most likely due to artifact. Shortly after patient had 3 episodes of tonic-clonic seizures. He was loaded with 1.5g of keppra and 1mg of lorazepam. CTPE was negative for dissection or PE. CT head was unremarkable. Of note patient's recently ~6 weeks ago. Concerning hs cardiac history he follows with a slack cooper at [facility]. He had a LCx PCI in 2010 and his last LHC in 2015 showed nonobstructive disease. His last echo in our system from 2016 showed multiple WMA with an EF 40%. Past Medical History: Diagnosis Date ??? CAD (coronary artery disease), viejas coronary artery ??? Epilepsy ??? GERD (gastroesophageal reflux disease) ??? ST elevation myocardial infarction (STEMI) involving left circumflex coronary artery in recoveryphase ??? TBI (traumatic brain injury) Past Surgical History: Procedure Laterality Date ? ? PRO LAMINECTOMY, >2 SGMT, CERVICAL N/A 10/12/2016 LAMINECTOMY DECOMPRESSION > 2 SEGMENTS,CX (WRVU 20.85) performed by Hua Bullard MD at [facility] MAIN OR Allergies Allergen Reactions ??? Abilify [Aripiprazole] Rash ??? Codeine Nausea And Vomiting and Rash ??? Oxycodone Rash Headache Out-Patient Medications: Medications Prior to Admission Medication Sig Dispense Refill Last Dose ??? ibuprofen (ADVIL;MOTRIN) 800 mg Tablet Take 800 mg by mouth 2 times daily. Past Week at Unknown time ??? gabapentin (NEURONTIN) 300 mg Capsule Take 600 mg by mouth 4 times daily. 300 mg in the morning and afternoon; 600 mg at night Past Week at Unknown time ??? atorvastatin (LIPITOR) 80 mg Tablet Take 1 tablet by mouth daily. 90 tablet 3 Past Week at Unknown time ??? lisinopril (PRINIVIL;ZESTRIL) 5 mg Tablet Take 1 tablet by mouth daily. 90 tablet 3 Past Week atUnknown time ??? citalopram (CELEXA) 40 mg tablet Take 1 tablet by mouth daily. 90 tablet 3 Past Week at Unknown time ??? fluticasone (FLONASE) 50 mcg/actuation nasal spray 1 spray by Nasal route as needed. Past Week at Unknown time ??? Levalbuterol Tartrate (XOPENEX HFA) 45 mcg/actuation inhaler Inhale 1-2 puffs into the lungs every 4 hours as needed. Past Week at Unknown time ??? docusate sodium (COLACE) 100 mg capsule Take 100 mg by mouth daily. Past Week at Unknown time ??? aspirin 81 mg EC tablet Take 81 mg by mouth daily. Past Week at Unknown time ??? fluticasone (FLOVENT) 110 mcg/Actuation inhaler Inhale 1 puff into the lungs 2 times daily. 1 Inhaler 3 Past Week at Unknown time ??? triamcinolone (KENALOG) 0.1 % Cream apply to the itchy areas on the arms and trunk BID 80 g 0 ??? acetaminophen (TYLENOL) 325 mg Tablet Take 2 tablets by mouth every 4 hours as needed for Pain (mild pain). 30 tablet 1 Unknown at Unknown time ??? lamoTRIgine (LAMICTAL) 100 mg Tablet Take 100 mg by mouth 2 times daily. Unknown at Unknown time ??? NITROSTAT 0.4 mg Tablet, Sublingual Place 0.4 mg under the tongue every 5 minutes as needed. Reported on 12/08/2016 Unknown at Unknown time ??? meloxicam (MOBIC) 15 mg Tablet Take 15 mg by mouth daily. Unknown at Unknown time ??? phenytoin (DILANTIN KAPSEAL) 100 mg Capsule Take 1 capsule by mouth every morning, and 2 capsules every evening. Brand name only. 180 tablet 3 Unknown at Unknown time ??? traZODone (DESYREL) 100 mg tablet Take 200 mg by mouth nightly. Taking at Unknown time In-Patient Medications: ??? aspirin 81 mg Oral Daily ??? atorvastatin 80 mg Oral Daily ??? citalopram 40 mg Oral Daily ??? gabapentin 600 mg Oral 4 Times Daily ??? traZODone 200 mg Oral Nightly ??? clopidogrel 75 mg Oral Daily ??? pantoprazole 40 mg Oral Daily ??? LORazepam ??? mometasone 1 puff Inhalation BID ??? polyethylene glycol (MIRALAX)oral powder 17 g Oral Daily ??? levETIRAcetam 500 mg Oral BID Family History: Family History Problem Relation Age of Onset ??? Lung Cancer Brother ??? Heart Disease Mother ??? Heart Disease Sister Social History: Social History Socioeconomic History ??? Marital status: Spouse name: Not on file ??? Number of children: Not on file ??? Years of education: Not on file ??? Highest education level: Not on file Occupational History ??? Not on file Social Needs ??? Financial resource strain: Not on file ??? Food insecurity: Worry: Not on file Inability: Not on file ??? Transportation needs: Medical: Not on file Non-medical: Not on file Tobacco Use ??? Smoking status: Former Smoker Types: Cigarettes Last attempt to quit: 05/14/2008 Years since quittin.2 ??? Smokeless tobacco: Never Used Substance and Sexual Activity ??? Alcohol use: No ??? Drug use: No ??? Sexual activity: Not on file Comment: deferred Lifestyle ??? Physical activity: Days per week: Not on file Minutes per session: Not on file ??? Stress: Not on file Relationships ??? Social connections: Talks on phone: Not on file Gets together: Not on file Attends taoist service: Not on file Active member of club or organization: Not on file Attends meetings of clubs or organizations: Not on file Relationship status: Not on file ??? Intimate partner violence: Fear of current or ex partner: Not on file Emotionally abused: Not on file Physically abused: Not on file Forced sexual activity: Not on file Other Topics Concern ??? Not on file Social History Narrative ??? Not on file Review of Systems: 11 point ROS is either negative or per HPI Physical Exam: Last value Range last 8 hrs Temperature Temp: 36.4 ??C (97.5 ??F) Temp: [36.4 ??C (97.5 ??F)-36.7 ??C (98.1 ??F)] Heart Rate Heart Rate: 63 Heart Rate: [48-63] Blood Pressure BP: 128/71 BP: (124-131)/(70-78) Respiratory Rate Resp: 17 Resp: [9-17] SpO2 SpO2: 97 % SpO2: [93 %-99 %] Intake/Output Summary (Last 24 hours) at 08/28/2019 1418 Last data filed at 08/28/2019 1400 Gross per 24 hour Intake 421 ml Output 1750 ml Net -1329 ml Wt & BMI By Encounter Date Admission (Current) from 08/28/2019 in Surgical Intensive Care Unit - [facility] Office Visit from 12/08/2016 in Neurosurgery at [facility] Weight 56.5 kg (124 lb 9 oz) 1 08/28/2019 0105 59.4 kg (131 lb) 1 12/08/2016 1016 BMI 22.78 1 08/28/2019 0105 22.5 1 12/08/2016 1016 General: Pleasant male in NAD HEENT: NC/AT. MMM. EOMI, PERRL Cardiac: Bradycardic. No murmur, rub, gallop. No JVD. No peripheral edema Respiratory: CTAB Abdominal: Positive bowel sounds. NTND. Extremities: Normal bulk and tone Skin: Warm and dry Neurology: No focal deficit ECG: Sinus bradycardia, nonspecific T wave changes ECHO: 08/28/19 1. The left ventricular chamber size is normal. Global left ventricular systolic function is moderately reduced. The quantitative left ventricular ejection fraction by biplane Jaramillo's method is 35%. There are left ventricular segmental wall motion abnormalities present, as shown in the diagram below. 2. Right ventricular chamber size, wall thickness, and systolic function are within normal limits. 3. The left atrium is moderately dilated. 4. The aortic valve is tricuspid. Mild (1+/4+) aortic valve regurgitation is present. There is no evidence of aortic valve stenosis. 5. There is mild (1+/4+) mitral regurgitation present. There is posterior mitral annular calcification. 09/18/2016 1. The left ventricular chamber size is normal. Global left ventricular systolic function is moderately reduced. The quantitative left ventricular ejection fraction by biplane Jaramillo's method is 40%. There are left ventricular segmental wall motion abnormalities present, as shown in the diagram below. 2. Right ventricular chamber size, wall thickness, and systolic function are within normal limits. 3. There is no hemodynamically significant valve disease. 4. When compared with study dated 2010, there has been a decline in LVEF (52%-->40%) Wall motion abnormalities are in the same distribution but more severe. [facility]: 2016 Nonobstructive disease CXR: 08/28/19 Mild pulmonary edema. Recent Labs 08/28/19 023 WBC 6.0 HGB 13.1* HCT 40.4* PLATELET 128* Recent Labs 08/28/19 023 NA 140 K 4.1 CL 104 CO2 26 BUN 13 CREATININE 1.05 Recent Labs 08/28/19 023 AST 17 ALT 11 ALKPHOS 113 BILITOT 0.3 Recent Labs 08/28/19 023 CALCIUM 9.0 MAGNESIUM 0.83 PHOS 3.6 Recent Labs 08/28/19 023 INR 1.2 PT 14.3* PTT 35 Recent Labs 08/28/19 1150 08/28/19 0557 08/28/19 0230 TROPONINT <0.01 <0.01 <0.01 ProBNP Date Value Ref Range Status 08/28/2019 312 (H) <=125 pg/mL Final Assessment/Recommendations: #ICM #HFrEF: Based on his most recent echo his cardiomyopathy is most likely chronic. He most likelyhas a mixed ICM and NICM. Given that his troponins have been negative x3, the likelihood of an ischemic event is low. He is euvolemic and not in heart failure. Recommend continuing to treat his cardiomyopathy and restarting his home medications. Per nursing there was concerns that he may have a history of aspirin allergy but most unlikely. He is currently on DAPT and Eliquis and there is no indication for triple therapy. He should either be on ASA or plavix,but not both. Case discussed with Dr. Hunt Cardiology will continue to follow. x Cardiology will sign off. Please do not hesitate to contact with questions/concerns. Guido Velasco MD [employer] Crew Leader, PGY5 P: [id number] Cardiology Staff Addendum Miguel Pérez is a 64 y.o. male whom I saw today with Dr. Velasco. I have personally interviewed and examined the patient and reviewed appropriate data, including labs, ECGs, and other diagnostic studies. I agree with the principal findings documented above, with additions and exceptions as below. The as sessment and plan were formulated in discussion with me. In brief, gentleman with 1-vessel ASCVD by cath in 2016, patent LCx stent previously placed in setting of acute VA, seen for HFrEF. Review of serial TTEs shows LVEF slightly but note markedly reduced relative to prior study in 2016 (40% --> 35%) with clear areas of old infarct laterally, but diffuse HK elsewhere. No evidence of ACS. No evidence of volume overload. Impression is mixed ischemic and nonischemic, as his current level of systolic dysfunction outstripshis known ASCVD. Would manage with standard HFrEF GDMT as possible, though adequate doses of BB may be limited by sinus bradycardia. The patient should consider an ischemic evaluation at some point, but this can be done as an outpatient; reportedly follows with cardiology at [facility]. Other issues including suicidal ideation and epilepsy would appear to take precedence. Of note, the patient reported to nursing an aspirin allergy (hives), though none is documented in the chart. The patient refused to speak to me when I saw him. As there is no indication for triple therapy, would recommend a sing le antiplatelet, either aspirin plus DOAC, or Plavix plus DOAC if the patient does in fact have an aspirin allergy. Jameel Hunt MD, [facility] Consult Note - Deana Lovett MD - 08/28/2019 2:11 PM EDT Neurology Consult Note Patient name:Miguel Pérez Date of :1955 Admit date: 08/28/2019 Primary Attending: Maximus Menezes MD Neurology Consult Attending: Dr. Lord CC: Seizure We have been asked to see Miguel Pérez by Dr. Kingsley HPI: Miguel Pérez is a 64 y.o. TBI, PTSD, PE on DOAC (unclear history), Lacunar Infarct (2010 with persistent left sided weakness), HTN, HLD, ASCVD (STEMI s/p BMS to dLCx 09/2016), HFrEF (EF 52% post intervention 2015), cervical stenosis (s/p C3-6 laminectomy), and 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 Per chart review, patient presented to [facility] with chest pain associated with pre- syncope. Troponin was negative and EKG demonstrated nonspecific lateral ST- changes. There was concern for wide complex rhythm and he was given 150 mg Amiodarone. His chest pain resolved; however, he had 3 reported generalized tonic clonic seizures afterwards. Each episodes lasted 20 seconds and he returned to baseline in 45 minutes. Patient was loaded with Keppra 1500 mg and is presently on 500 mg BID. Of note, patient's had recently and there are reports that he has stopped taking his AEDs as a result. Patient was previously being followed by Dr. Hayes (last seen in 05/19/2016). At the time, he was taking Dilantin and Lamotrigine faithfully without adverse reaction and was recommended to follow-up in 1 year which did not occur. It is unclear if he still taking Dilantin and Lamotrigine; however, review of his SureScripts demonstrated up-to-date refills for Lamotrigine but his Dilantin was refilled on in 2017. Per patient he is unsure which medications he takes since they are too many. He has been receivingassistance from his visiting nurse which helps him with his medication and occasionally his son comes by to assist. He does remember his medication or what pharmacy he uses. Of note, he had expressed suicidal ideation earlier today. Past Medical & Surgical History: Past Medical History: Diagnosis Date ??? CAD (coronary artery disease), viejas coronary artery ??? Epilepsy ??? GERD (gastroesophageal reflux disease) ??? ST elevation myocardial infarction (STEMI) involving left circumflex coronary artery in recoveryphase ??? TBI (traumatic brain injury) Past Surgical History: Procedure Laterality Date ? ? PRO LAMINECTOMY, >2 SGMT, CERVICAL N/A 10/12/2016 LAMINECTOMY DECOMPRESSION > 2 SEGMENTS,CX (WRVU 20.85) performed by Hua Bullard MD at [facility] MAIN OR Home Medications: No current facility-administered medications on file prior to encounter. Current Outpatient Medications on File Prior to Encounter Medication Sig Dispense Refill ??? ibuprofen (ADVIL;MOTRIN) 800 mg Tablet Take 800 mg by mouth 2 times daily. ??? gabapentin (NEURONTIN) 300 mg Capsule Take 600 mg by mouth 4 times daily. 300 mg in the morning and afternoon; 600 mg at night ??? atorvastatin (LIPITOR) 80 mg Tablet Take [...] lungs every 4 hours as needed. ??? docusate sodium (COLACE) 100 mg capsule Take 100 mg by mouth daily. ??? aspirin 81 mg EC tablet Take 81 mg by mouth daily. ??? fluticasone (FLOVENT) 110 mcg/Actuation inhaler Inhale 1 puff into the lungs 2 times daily. 1 Inhaler 3 ??? triamcinolone (KENALOG) 0.1 % Cream apply to the itchy areas on the arms and trunk BID 80 g 0 ??? acetaminophen (TYLENOL) 325 mg Tablet Take 2 tablets by mouth every 4 hours as needed for Pain (mild pain). 30 tablet 1 ??? lamoTRIgine (LAMICTAL) 100 mg Tablet Take 100 mg by mouth 2 times daily. ??? NITROSTAT 0.4 mg Tablet, Sublingual Place 0.4 mg under the tongue every 5 minutes as needed. Reported on 12/08/2016 ??? meloxicam (MOBIC) 15 mg Tablet Take 15 mg by mouth daily. ??? phenytoin (DILANTIN KAPSEAL) 100 mg Capsule Take 1 capsule by mouth every morning, and 2 capsules every evening. Brand name only. 180 tablet 3 ??? traZODone (DESYREL) 100 mg tablet Take 200 mg by mouth nightly. Hospital Medications: Scheduled Meds: ??? aspirin 81 mg Oral Daily ??? atorvastatin 80 mg Oral Daily ??? citalopram 40 mg Oral Daily ??? gabapentin 600 mg Oral 4 Times Daily ??? traZODone 200 mg Oral Nightly ??? clopidogrel 75 mg Oral Daily ??? pantoprazole 40 mg Oral Daily ??? LORazepam ??? mometasone 1 puff Inhalation BID ??? polyethylene glycol (MIRALAX)oral powder 17 g Oral Daily ??? levETIRAcetam 500 mg Oral BID Continuous Infusions: PRN Meds:.LORazepam, ipratropium-albuterol, acetaminophen Allergies: Allergies Allergen Reactions ??? Abilify [Aripiprazole] Rash ??? Codeine Nausea And Vomiting and Rash ??? Oxycodone Rash Headache Family history: Family History Problem Relation Age of Onset ??? Lung Cancer Brother ??? Heart Disease Mother ??? Heart Disease Sister Social history: Social History Socioeconomic History ??? Marital status: Spouse name: Not on file ??? Number of children: Not on file ??? Years of education: Not on file ??? Highest education level: Not on file Occupational History ??? Not on file Social Needs ??? Financial resource strain: Not on file ??? Food insecurity: Worry: Not on file Inability: Not on file ??? Transportation needs: Medical: Not on file Non-medical: Not on file Tobacco Use ??? Smoking status: Former Smoker Types: Cigarettes Last attempt to quit: 05/14/2008 Years since quittin.2 ??? Smokeless tobacco: Never Used Substance and Sexual Activity ??? Alcohol use: No ??? Drug use: No ??? Sexual activity: Not on file Comment: deferred Lifestyle ??? Physical activity: Days per week: Not on file Minutes per session: Not on file ??? Stress: Not on file Relationships ??? Social connections: Talks on phone: Not on file Gets together: Not on file Attends taoist service: Not on file Active member of club or organization: Not on file Attends meetings of clubs or organizations: Not on file Relationship status: Not on file ??? Intimate partner violence: Fear of current or ex partner: Not on file Emotionally abused: Not on file Physically abused: Not on file Forced sexual activity: Not on file Other Topics Concern ??? Not on file Social History Narrative ??? Not on file Review of systems: Constitutional: No fevers or chills Eyes: No vision changes, no diplopia, no blurry vision ENT: No rhinorrhea or pharyngitis, no meningismus CV: No chest pain or palpitations Resp: No cough, no shortness of breath GI: No nausea, vomiting, diarrhea or constipation : No dysuria, no incontinence Heme: No bleeding or bruising Endo: No polyuria or cold intolerance Neuro: See HPI Psych: No depression, normal sleep [x] Review of systems otherwise negative Physical Exam: Vitals: Temp: [36.4 ??C (97.5 ??F)-36.8 ??C (98.2 ??F)] Heart Rate: [46-63] Resp: [9-17] BP: (101-135)/(61-79) SpO2: [93 %-100 %] Heart Rate from SpO2: [46 bpm-51 bpm] Gen: Patient of apparent stated age, well nourished, well developed, awake, alert, NAD Neck: Supple, no meningismus, no carotid bruit, no occipital tenderness CV: + S1, S2, RRR, no murmur Resp: CTA B/L Neuro Exam: MS: AAOx2, clear language, no dysarthria, follows commands CN: PERRL, EOMI, visual trujillo full Facial sensation intact, no facial asymmetry Hearing intact to finger rub Palate elevates symmetrically, tongue protrudes midline SCM and trap strength intact Motor: Normal bulk and tone. UE: 5/5 R, 3/5 L Arm abduction at shoulder 5/5 R, 3/5 L Elbow extension 5/5 R, 3/5 L Elbow flexion 5/5 R, 3/5 L Oakes Machine Operator 5/5 R, 3/5 L Thumb abduction (APB) 5/5 R, 3/5 L Finger abduction LE: 5/5 R, 4/5 L Hip flexion 5/5 R, 4/5 L Knee extension 5/5 R, 4/5 L Knee flexion 5/5 R, 4/5 L Foot dorsiflexion 5/5 R, 4/5 L Foot plantar flexion Sensation: Intact to light touch Reflexes: DTRs 2+ R, 3+ L Biceps 2+ R, 3+ L Brachioradialis 3+ R, 3+ L Patellar 2+ R, 2+ L Achilles tendon Toes - R UP, L UP Coordination: Finger to nose intact, no dysmetria No tremor Gait: Did not assess Labs: Recent Results (from the past 24 hour(s)) POCT Glucose Result Value Ref Range POC Glucose 97 65 - 199 mg/dL Troponin Result Value Ref Range Troponin-T <0.01 0.00 - 0.00 ng/mL pro-Brain Natriuretic Peptide Result Value Ref Range ProBNP 312 (H) <=125 pg/mL Lactate, whole blood, send to lab ([facility] Result Value Ref Range Lactate WB 1.0 0.5 - 2.2 mmol/L Prothrombin Time Result Value Ref Range PT 14.3 (H) 9.4 - 12.5 sec INR 1.2 APTT Result Value Ref Range PTT 35 25 - 37 sec Magnesium Result Value Ref Range Magnesium 0.83 0.69 - 1.07 mmol/L Phosphorus Result Value Ref Range Phosphorus 3.6 2.5 - 4.5 mg/dL CMP w/fasting Glucose Result Value Ref Range Glucose Fasting 99 65 - 99 mg/dL BUN 13 10 - 20 mg/dL Creatinine 1.05 0.80 - 1.50 mg/dL Sodium 140 135 - 145 mmol/L Potassium 4.1 3.5 - 5.0 mmol/L Chloride 104 98 - 107 mmol/L CO2 26 22 - 31 mmol/L Anion Gap 10 5 - 15 mmol/L Calcium 9.0 8.5 - 10.5 mg/dL Total Protein 6.1 6.1 - 8.0 gm/dL Albumin 3.9 3.2 - 5.2 gm/dL AST 17 0 - 39 unit/L ALT 11 0 - 55 unit/L Alk Phos 113 40 - 130 unit/L Total Bilirubin 0.3 0.2 - 1.3 mg/dL eGFR 75 >=60 mL/min/1.73 m?? eGFR 87 >=60 mL/min/1.73 m?? Hemogram Result Value Ref Range WBC 6.0 4.0 - 9.5 x10(3)/mcL RBC 4.46 (L) 4.58 - 5.54 x10(6)/mcL Hemoglobin 13.1 (L) 13.7 - 16.5 gm/dL Hematocrit 40.4 (L) 40.5 - 48.5 % MCV 90.6 82.9 - 93.1 fL MCH 29.4 27.5 - 32.1 pg MCHC 32.4 32.0 - 35.7 gm/dL Platelets 128 (L) 145 - 357 x10(3)/mcL RDWSD 46.5 (H) 36.0 - 45.0 fL RDWCV 13.9 (H) 11.4 - 13.8 % MPV 10.2 7.6 - 12.9 fL nRBC % Auto 0.0 % nRBC Abs Auto 0.000 0.000 - 0.000 x10(3)/mcL Differential, Automated Result Value Ref Range Neutrophils % 54.4 % Neutr Abs (ANC) 3.28 1.70 - 6.10 x10(3)/mcL Lymphocytes % 28.9 % Lymphocytes Abs 1.7 0.9 - 3.2 x10(3)/mcL Monocytes % 9.8 % Monocyte Abs 0.6 0.3 - 0.9 x10(3)/mcL Eosinophils % 5.5 % Eosinophils Abs 0.3 0.0 - 0.4 x10(3)/mcL Basophils % 1.2 % Basophils Abs 0.1 0.0 - 0.1 x10(3)/mcL Immature Gran % 0.20 % Lee Ann Gran Abs 0.01 0.00 - 0.04 x10(3)/mcL Troponin Result Value Ref Range Troponin-T <0.01 0.00 - 0.00 ng/mL Troponin Result Value Ref Range Troponin-T <0.01 0.00 - 0.00 ng/mL Diagnostic Tests and Imaging: None Assessment / Recommendations: Miguel Pérez is a 64 y.o. 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 In the setting of the recent passing of his and subsequent depression there is concern that he is no longer taking his seizure medications. AED levels for Dilantin and Lamotrigine should be obtained to assess for compliance. Also, obtaining collateral information from his son and pharmacywill be imperative in clarifying his compliance and current AED regimen.Unfortunately, it is unclearwhat his current home AED regimen is. This problem is further complicated since he has not been seenby Neurology since 2017. Based on his previous outpatient notes he was stable on Lamotrigine and Dilantin. Review of his SureScripts suggest he was on Dilantin 100 mg capsule QAM and 200 mg QPM and Lamotrigine 100 mg tablet BID. Dilantin may be started at his home dose; however, for lamotrigine we recommend starting him at 50 mg BID for 1 week before increasing to 100 mg BID. Keppra can be continued until he is back on his home AED regimen. #Seizure disroder -Check Dilantin and Lamotrigine Levels -START Dilantin 100 mg QAM and 200 mg QPM -START Lamotrigine 50 mg BID for 1 week THEN INCREASE to 100 mg BID -Continue with Keppra 500 mg BID until patient is on his home dose of Lamotrigine. Deana Lovett MD Neurology Resident General Neurology Consult [id number] Associated attestation - Tiesha Lord MD - 08/29/2019 11:20 AM EDT I saw and evaluated the patient with the resident. I have reviewed the medical records and the patient's history during the visit and I agree with the details as written. My physical examination confirms the findings. The assessment and plan were formulated in discussion with me at the time of the visit and I agree with them as documented. Tiesha Lord MD Initial Assessments - Laury Vincent RN - 08/28/2019 9:01 AM EDT Office of Care Management Initial Assessment Laury Vincent RN reviewed record and discussed patient with Care Team. Source of Information: pt /chart review: pt appears almost post ictal In his inability to .answer questions and long pauses between answers. CM obtained verbal permission to call son DEV Pérez who stays with pt at times CM called all three listed numbers on demo sheet and no ability to leaveVM as not set up and no answers to phone. CM called SANTOS Benitezmitzi at [facility] [phone] and left VM with CM call back info. Introduced self/reviewed role; services accepted. Reason for Hospitalization: year-old right-handed male with a history of TBI, PTSD, PE on DOAC (unclear history), CVA (2010 withpersistent left sided weakness), HTN, HLD, ASCVD (STEMI s/p BMS to dLCx 09/2016), HFrEF (EF 52% postintervention 2015), cervical stenosis (s/p C3-6 laminectomy), and 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 History obtained from chart review given patient's cognitive state The patient presented to [facility] with chest pain like someone was punching [him] in the chest and associated pre-syncope. Vitals: T 37 C, HR 62, RR 20, BP 140/85, SpO2 97% RA. EKG revealed nonspecific lateral ST changes. Troponin was negative. He had a questionable five second period of wide-complex rhythm however it appears to be sinus with baseline artifact without AV dissociation. He received 150mgamiodarone IV bolus. His chest pain resolved but he then had three episodes of possible tonic-clonicseizures, each lasting 20 seconds, within a 45 minute timespan. He was reportedly post-ictal initially however his mental status returned to baseline. During these episodes he was loaded with 1500mg keppra and received 1mg lorazepam. CTH was unremarkable. CTPE was also done to rule out dissection or pulmonary embolism; it was normal and showed no evidence of embolus. On evaluation patient reports he has had chest pain like someone is stepping on my chest since this morning. The pain feels similar to his prior heart attack. He cannot detail aggravating or relieving factors. He denies pain prior to today. The pain was present at rest. He experienced lightheadedness and reports a fall without loss of conciousness but he did hit his head. On evaluation he denies dyspnea, nausea, vomiting, diaphoresis, syncope. He reports his recently one week ago because she was sick. The patient cannot detail the medications or AEDs he takes at home. Christy Hess MD Date of Service: 08/27/2019 11:00 PM Past Medical History: Diagnosis Date ??? CAD (coronary artery disease), viejas coronary artery ??? Epilepsy ??? GERD (gastroesophageal reflux disease) ??? ST elevation myocardial infarction (STEMI) involving left circumflex coronary artery in recoveryphase ??? TBI (traumatic brain injury) Hospitalizations Within the Past 30 Days: see H&P Anticipated Length Of Stay (If known): Current Decision-Making Capacity: drowsy. Forgetful, unable to speak coherently in complete sentences over 2-3 words at present. Advance Care Planning: None written. CM placed END FINDER TWISTING DEPARTMENT consult for AD completion .Son Marciano Pérez [phone] would be surrogate decision maker per [place] surrogate decision making law. Any patient receiving care at [facility] must abide by [place] law. The hierarchy for surrogate decision making is: (a) Patient???s spouse, or civil union partner or common law spouse unless there is a divorce proceeding, separation agreement, or restraining order limiting that person???s relationship with the patient. (b) Any adult son or daughter of the patient. (c) Either parent of the patient. (d) Any adult brother or sister of the patient. (e) Any adult grandchild of the patient. (f) Any grandparent of the patient. (g) Any adult aunt, uncle, niece, or nephew of the patient. (h) A close friend of the patient. (i) The agent with financial power of insurance attorney or a conservator appointed in accordance with RSA 464-A. (j) The guardian of the patient???s estate. Current Coping/Education/Information Needs: LACHO explained need for SNF rehab vs return to home with VNA as pt now lives alone as S/O recently and pt is wc bound Current Functional Ability: 1-2 person assist/can stand to pivot transfer wc to bed/toilet, per pt Functional Status Prior to Admission: same Home Environment: lives alone in mobile home, one level with wc ramp at front door and roll-in shower Social & Family Supports/Community Resources: [facility] S/O Mery Gonzalez recently and son Dev sometimes stays with pt Behavioral Health History: denied Substance Use/Abuse: denied Other Pertinent/Service Specific Information: uses [facility] has RN/E [employer] Health/Prescription Coverage: Primary Insurance: MEDICARE Secondary Insurance: N/A Prescription Coverage: na Preferred Pharmacy: [facility] Primary Care Provider: Aissatou Briggs, SENIOR INSIGHT MANAGER [phone] Patient/Caregiver Goals of Treatment: home with VNA prefered Potential Needs for Transition of Care: Rehab/SNF: may need -waiting on therapy eval Home Health: [facility] used in past DME: has wc ramp at front door;owns manual and electric wc at home Dialysis: na Community Resources: na Transportation: TB Anticipated Barriers to Discharge/Special Considerations: pt acceptance of care Assessment: [id number] in w/ new onset chest pain and had Clonic -Tonic seizures. Poor historian as relates to answering any med questions ie meds, VNA etc. CM called hesham Tariq at all listed phone numbers and NA, and no ability to leave VM as no VM set up.Cmwil gena PCP office for verification of info as PCP has . DC POC: TBD re therapy eval- Now lives alone and is wc bound at baseline with left sided weakness atbaseline Pt.Care Coordination Note reviewed. CM updated with new referral information as needed. Plan:A member of the Care Management team will continue to monitor progress, follow for continuity of care and assist with transition of care planning. Laury Vincent, RN Pager: [phone] Plan of Care - Helga Barrera RN - 08/28/2019 6:56 AM EDT Problem: Patient Care Overview Goal: Plan of Care Review 08/28/19 0652 Coping/Psychosocial Plan Of Care Reviewed With patient Plan of Care Review Progress progress toward functional goals as expected OUTCOME EVALUATION NOTE: OUTCOME SUMMARY: Alert only to self EKG showing sinus gabe, 1 seizure overnight, no ativan was given. Using urinal Asking for family overnight Concerns as to where family is, wants to join his that he lost 3 weeks ago. PLAN MOVING FORWARD: Seizure precautions Monitor Heart rhythm\ Chest pain control INDIVIDUALIZED FALL PREVENTION INTERVENTIONS: Patient-specific fall risk factors per assessment: [current deficits]: LOC, seizure Assistance [level of assistance required for transfers and ambulation]: 2 person assist Supervision [direct monitoring required during toileting and ADLs]: Near station, open doors Surveillance [continuous indirect monitoring]: Hourly rounding, bed alarms on Patient-specific fall prevention interventions for sensory deficits provided, if applicable: [X] Yes CPG GOAL OUTCOME EVALUATION: Goal: Fall Prevention-Safe Patient Handling 08/28/1952 Restraint Interventions Safety Promotion/Fall Prevention activity supervised;fall prevention program maintained;safety round/check completed Activity Activity Type activity adjusted per tolerance Activity Assistance Provided assistance, 1 person;assistance, 2 people Positioning Body Position side-lying, right Daily Care Interventions Self-Care Promotion independence encouraged [place] Fall Risk History of Falling 25 Secondary Diagnosis 15 Ambulatory Aids 0 Intravenous Therapy/Heparin/Saline Lock 20 Gait/Transferring 10 Mental Status 15 Score 85 OTHER [place] Fall Risk High Goal: Infection Control 08/28/1952 Safety Interventions Isolation Precautions standard precautions maintained Infection Prevention environmental surveillance performed;rest/sleep promoted Goal: Interdisciplinary Rounds/Family Conf 08/28/1952 Interdisciplinary Rounds/Family Conf Participants family documented in this encounter Plan of Treatment Upcoming Encounters Date Type Specialty Care Team Description 09/04/2022 Ancillary Procedure Radiology Aissatou Briggs, Berto elelake (D-SCHED ERROR SENIOR INSIGHT MANAGER / CORRECTION ) [address] [place], [place] [id number] (Wo rk) documented as of this encounter Procedures Procedure Name Priority Date/Time Associated Comments Diagnosis HC PHENYTOIN, SERUM Timed 08/29/2019 7:59 PM Re sults for this EDT procedure are i n the results section. MAGNESIUM Timed 08/29/2019 7:59 PM Results f or this EDT procedure are i n the results section. BASIC METABOLIC PANEL Timed 08/29/2019 7:59 PM Results for this (NON-FASTING) EDT procedure are in the results section. HC UA W/OUT MICROSCOPIC STAT 08/29/2019 1:27 AM Results for this EDT procedure are i n the results section. POCT GLUCOSE Routine 08/28/2019 4:15 PM Results f or this EDT procedure are i n the results section. HC TROPONIN T STAT 08/28/2019 11:50 Results fo r this AM EDT procedure are i n the results section. ECHOCARDIOGRAM COMPLETE Routine 08/28/2019 11:47 Coronary rebecca ry Results for this W CONTRAST AM EDT disease involving procedure are in viejas coronary the results artery of viejas section. heart without angina pectoris HC TROPONIN T STAT 08/28/2019 5:57 AM Results for this EDT procedure are i n the results section. XR CHEST ONE VIEW STAT 08/28/2019 4:08 AM Resu lts for this EDT procedure are i n the results section. XR ABDOMEN 1 VIEW Routine 08/28/2019 4:08 AM Resu lts for this EDT procedure are i n the results section. CMP W/FASTING GLUCOSE STAT 08/28/2019 2:30 AM Results for this EDT procedure are i n the results section. HC PCH LAMOTRIGINE Routine 08/28/2019 2:30 AM Res ults for this EDT procedure are i n the results section. HEMOGRAM STAT 08/28/2019 2:30 AM Results f or this EDT procedure are i n the results section. DIFFERENTIAL, AUTOMATED STAT 08/28/2019 2:30 AM Results for this EDT procedure are i n the results section. HC L-LACTATE STAT 08/28/2019 2:30 AM Results f or this EDT procedure are i n the results section. HC PARTIAL STAT 08/28/2019 2:30 AM Results f or this THROMBOPLASTIN TIME EDT procedur e are in the results section. HC PROTHROMBIN TIME STAT 08/28/2019 2:30 AM Re sults for this EDT procedure are i n the results section. HC CBC,PLT & AUTO DIFF STAT 08/28/2019 2:30 AM EDT HC TROPONIN T STAT 08/28/2019 2:30 AM Results for this EDT procedure are i n the results section. HC PHOSPHORUS, SERUM STAT 08/28/2019 2:30 AM R esults for this EDT procedure are i n the results section. HC PROBNP Routine 08/28/2019 2:30 AM Results f or this EDT procedure are i n the results section. HC MAGNESIUM, SERUM STAT 08/28/2019 2:30 AM Re sults for this EDT procedure are i n the results section. EKG 12-LEAD STAT 08/28/2019 2:21 AM Coronary artery Result s for this EDT disease involving procedure are in viejas coronary the results artery of viejas section. heart without angina pectoris POCT GLUCOSE Routine 08/28/2019 1:13 AM Results f or this EDT procedure are i n the results section. documented in this encounter Results Magnesium (08/29/2019 7:59 PM EDT) athologist Signature Magnesium 0.82 0.69 - 1.07 [facility] mmol/L [facility] Specimen Anatomical Collection Method Collection Time Receive d Time (Source) Location / / Volume Laterality Blood specimen Venous Draw / 08/29/2019 7:59 PM 2018 (specimen) Unknown EDT 10:10 PM EDT Resulting Agency Comment Spec In Lab Betzy Bo APRN CHEMISTRY ORDERABLES Performing Organization Address City/State/[place] [address] (ABNORMAL) Basic Metabolic Panel (non-fasting) (08/29/2019 7:59 PM EDT) athologist Signature Glucose Lvl 104 65 - 199 [facility] mg/dL [facility] Comment: Diabetes: >=200 mg/dL plus symp toms BUN 15 10 - 20 mg/dL [facility] Creatinine 1.02 0.80 - 1.50 mg/dL [facility] Sodium 143 135 - 145 mmol/L [facility] Potassium 4.5 3.5 - 5.0 mmol/L [facility] Comment: Please note: ??Patients with WBC >100,00 0 may have falsely elevated Potassium levels. ??For accurate Potassium quantif ication in these patients send serum separator tube (gold top) for subsequent determinations. ??Contact the Clinical Chemistry Laboratory if there are any qu estions. Chloride 107 98 - 107 mmol/L [facility] CO2 21 (L) 22 - 31 mmol/L [facility] Anion Gap 15 5 - 15 mmol/L [facility] Calcium 9.0 8.5 - 10.5 mg/dL [facility] Estimated GFR 77 >=60 mL/min/1.73 m?? [facility] Comment: The eGFR was calculated using the CKD-EP I equation. As with all creatinine based estimates of kidney function, eGFR values calculated with the CKD-EPI equation are not accurate in patients wi th acute kidney failure, extremes of body mass or the acutely ill. [email or web address] eGFR 90 >=60 mL/min/1.73 m?? [facility] Comment: The eGFR was calculated using the CKD-EP I equation. As with all creatinine based estimates of kidney function, eGFR values calculated with the CKD-EPI equation are not accurate in patients wi th acute kidney failure, extremes of body mass or the acutely ill. [email or web address] Specimen Anatomical Collection Method Collection Time Receive d Time (Source) Location / / Volume Laterality Blood specimen Venous Draw / 08/29/2019 7:59 PM 2018 (specimen) Unknown EDT 10:10 PM EDT Resulting Agency Comment Spec In Lab Betzy Bo APRN CHEMISTRY ORDERABLES Performing Organization Address City/State/[place] [address] (ABNORMAL) Phenytoin level, total and free (08/29/2019 7:59 PM EDT) P athologist Signature Phenytoin Lvl 4.2 (L) 10.0 - [facility] 20.0 mg/L [facility] Comment: Theraputic range: ??10-20 mg/L Toxic: ??> 25 mg/L Patients with renal dysfunction (e.g.cre atinine clearance < 30 mls/min) may show falsely elevated results due to acc umulation of metabolites in renal failure Phenytoin, Free Not Perf 1.00 - 2.00 [facility] Comment: Free phenytoin request is not indicated for subtherapeutic total phenytoin level <6.0 mg/L. If there are clinical indications of tox icity at this low total drug level, you will need to contact the Director on lavinia l () or the CP resident airborne missions systems (evenings, weekends) for approval. Therapeutic range: ? Free phenytoin: ??1.00-2.00 mg/L ? % Free phenytoin: ??8-12% Toxic range: ? Free phenytoin: ??>3.00 mg/L This test was developed and its performa nce characteristics determined by [facility]. It has not been cleared or approved by the FDA. The laboratory is regulated under CLIA a s qualified to perform high-complexity testing. This test is used for clinical purposes. It should not be regarded as investigational or for research. Phenytoin Free% Not Calculated 8 - [facility] Comment: This test was developed and its performa nce characteristics determined by [facility]. It has not been cleared or approved by the FDA. The laboratory is regulated under CLIA a s qualified to perform high-complexity testing. This test is used for clinical purposes. It should not be regarded as investigational or for research. Specimen Anatomical Collection Method Collection Time Receive d Time (Source) Location / / Volume Laterality Blood specimen 08/29/2019 7:59 PM 019 8:36 (specimen) EDT PM EDT Resulting Agency Comment Spec In Lab Bubba Mcdaniels MD CHEMISTRY ORDERABLES Performing Organization Address City/State/[place] [address] (ABNORMAL) Urinalysis without microscopic (08/29/2019 1:27 AM EDT) [facility] Method Time Signature Glucose UA Negative Negative [facility] Protein UA Negative Negative [facility] Bilirubin UA Negative Negative [facility] mg/dL [facility] Comment: Clinical correlation required for positi ve Urine Bilirubin results as false positive may occur with some drugs and d rug related products. If a false positive is suspected a serum total bili dexter should be considered if clinically indicated. Urobilinogen UA Normal Normal mg/dL [facility] pH UA 6.0 5.0 - 8.0 [facility] Blood UA Small (A) Negative mg/dL [facility] Ketones UA Negative Negative mg/dL [facility] Nitrite UA Negative Negative [facility] Leukocytes UA Negative Negative [facility] [employer] [facility] LABORATORY Appearance UA Clear Clear [facility] LABORATORY Spec [place] UA 1.018 1.002 - 1.030 [facility] LABORATORY Color UA Yellow Yellow [facility] Specimen Anatomical Collection Method Collection Time Receive d Time (Source) Location / / Volume Laterality Urine specimen 08/29/2019 1:27 AM 019 1:35 (specimen) EDT AM EDT Resulting Agency Comment Spec In Lab Miguel Kingsley MD URINE ORDERABLES Performing Organization Address City/[facility]/ZIP Code Phon e Number [address] POCT Glucose (08/28/2019 4:15 PM EDT) athologist Signature POC Glucose 93 65 - 199 [facility]dL [facility] Comment: Supplemental ranges: <140 mg/dL before meals <180 mg/dL all other times of the day Specimen Anatomical Collection Method Collection Time Receive d Time (Source) Location / / Volume Laterality Blood specimen 08/28/2019 4:15 PM 019 4:15 (specimen) EDT PM EDT Maximus Menezes MD POINT OF CARE TEST ORDERABLE S Performing Organization Address City/[facility]/ZIP Code Phon e Number [address] Troponin (08/28/2019 11:50 AM EDT) athologist Signature Troponin-T <0.01 0.00 - 0.00 [facility] Comment: The 99th percentile for Troponin T is le ss than 0.01 ng/mL, any detectable cTnT concentration using this assay should be considered elevated. According to the third universal definit ion of myocardial infarction the following criteria with a clinical prese ntation consistent with acute myocardial ischemia meets the diagnosis for a myocardial infarction (VA). Detection of a rise and/or fall of cTnT, with at least one value greater than the 99th percentile (> or = 0.01) and wi th at least one of the following ?? Symptoms of ischemia ?? New or presumed new significant ST-se gment-T wave (ST-T) changes or new left bundle branch block (LBBB) ?? Development of pathologic Q waves in the ECG ?? Imaging evidence of new loss of viabl e myocardium or new regional wall motion abnormality ?? Identification of an intracoronary th rombus by angiography or autopsy Samples for cTnT testing should be obtai mela serially upon first assessment and again 3 to 6 hours later. If the clinica l suspicion is high and previous samples have been negative an additional sample may be indicated. Reference: Third [place] Definition of Myocardial Infarction. Journal of the [employer] [employer] 2012;60:1581-98 Specimen Anatomical Collection Method Collection Time Receive d Time (Source) Location / / Volume Laterality Blood specimen 08/28/2019 11:50 9 (specimen) AM EDT 11:54 AM EDT Resulting Agency Comment Spec In Lab Maximus Menezes MD CHEMISTRY ORDERABLES Performing Organization Address City/State/[place] [address] ECHOCARDIOGRAM COMPLETE W CONTRAST (08/28/2019 11:47 AM EDT) P athologist Signature EF 35 [facility] Anatomical Region Laterality Modality Other Specimen (Source) Anatomical Location Collection Method / Collectio n Time Received Time / Laterality Volume 08/28/2019 Narrative 08/28/2019 12:19 PM EDT Procedure: ?Transthoracic Echocardiogram Patient: ?JUANA QUIROAG Gonzalo ? (Age): 1955(64y) Med Rec#: ? [id number] ?Sex: ?M ? Site Loc: ? [facility] ?Ht / Wt: ??158(cm)/57(kg) Pt. Loc: ?Adult Floor ? BSA: ?1.57 Study Date: ?? 08/28/2019 ?Pt. Type: Inpatient Tape: ? 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 131/70 SUMMARY: 1. The left ventricular chamber size is normal. ??Global left ventricular systolic function is moderately reduced. ??The quantitative left ventricular ejection fraction by biplane Jaramillo's method is 35%. ??There are left ventricular segmental wall nicole on abnormalities present, as shown in the diagram below. 2. Right ventricular chamber size, wall thickness, and systolic function are within normal limits. 3. The left atrium is moderately dilated . 4. The aortic valve is tricuspid. ??Mild (1+/4+) aortic valve regurgitation is present. ??There is no evidence of aortic valve stenosis. 5. There is mild (1+/4+) mitral regurgit ation present. ??There is posterior mitral annular calcification. 6. See remainder of report for additiona l findings. Findings ? : Left Ventricle: ? The left ventricul ar chamber size is normal. ?Left ventricular wall thickness is normal. ?Global left ventricular systolic f unction is moderately reduced. ?The quantitative left ventricular ejection fraction by biplane Jaramillo's method is 35%. ?There are left ventricular segment al wall motion abnormalities present, as shown in the diagram below. ?Doppler assessment is consistent w ith elevated left sided filling pressure. ?The ??basal inferoseptal, mid infe roseptal, apical septal, apical anterior, apical lateral, and ??apical i nferior wall segments are hypokinetic (score 2). ?The ??basal anterolateral, basal i nferolateral, basal inferior, mid anterolateral, mid inferolateral, and ?? mid inferior wall segments are akinetic (score 3). ?Overall wallmotion score index is ??2.13 Left Atrium: ? The left atrium is mo derately dilated.43 ml/m2 Right Ventricle: ? Right ventricular chamber size, wall thickness, and systolic function are within normal limi ts. ?Pulmonary artery hypertension coul d not be assessed due to inadequate tricuspid regurgitation jet. Right Atrium: ? The right atrium сергей ears normal. Aortic Valve: ? The aortic valve is tricuspid. ?There is no evidence of aortic kaiden ve thickening. ?There is aortic annular calcificat ion. ?There is no evidence of aortic kaiden ve stenosis. ?Mild (1+/4+) aortic valve regurgit ation is present. Mitral Valve: ? The mitral valve shameka flets are mildly thickened. ?There is posterior mitral annular calcification. ?There is mild (1+/4+) mitral regur gitation present. Tricuspid Valve: ? The tricuspid kaiden ve appears normal in structure and function. ?There is trace tricuspid regurgita tion present. Pulmonic Valve: ? The pulmonic valve is not well visualized. ?There is no evidence of pulmonic r egurgitation. Pericardium: ? The pericardium appea rs normal and there is no evidence of a pericardial effusion. Aorta: ? The aortic root is normal i n size. ?The ascending aorta is normal in s ize. Pulmonary Artery: ? The main pulmona ry artery appears normal. Venous: ? The inferior vena cava сергей ears dilated. Misc: ? Technically difficult study. ?Two-dimensional echo, spectral Dop pler and color Doppler performed. ?Optison contrast (one 3 ml vial) w as used to enhance endocardial definition. Excess contrast was discarde d. Chambers 2D ?Value ?Units (Range) ? IVSd (2D) ? 1 ?cm ? LVPWd (2D) ?0.8 ?cm ? IVS:LVPW ratio (2D) 1.2 ?ratio ? RWT (2D) ?0.4 ?ratio ? RWT PW (2D) ? 0.3 ?ratio ? LVIDd (2D) ?5 ?cm ? LVIDs (2D) ?4.4 ?cm ? LVIDd (2D) index ?3.2 ?cm/m2 ? LVIDs (2D) index ?2.8 ?cm/m2 ? LV FS (2D) ?13 ? % ? EF Teichholz (2D) ?? 27 ? % ? Ao root diameter (2D3.3 ?cm (2.1 - 3.6) ? Ascending Ao ?2.9 ?cm (2 - 3.5) ? Volumes/Mass ?Value ?Units (Range) ? LA Area 4 CH ?19 ? cm2 (<21) ? RA AREA 4CH ? 16 ? cm2 ? LA ESV BP (MOD) inde43.3 ? ml/m2 ? LV ESV SP 4CH (MOD) 85 ? ml ? LV ESV SP 2CH (MOD) 81 ? ml ? LV EDV BP ? 133 ?ml ? LV ESV BP ? 86 ? ml ? LV EDV BP index ? 84.7 ? ml/m2 ? LV ESV BP index ? 54.8 ? ml/m2 ? BP EF (MOD) ? 35 ? % ? LV mass (2D) ?167.3 ?g ? LV mass (2D) index ??106.6 ?g/m2 ? Diastolic/Systolic Function ?Value ?Units (Range) ? MV E-wave Vmax ?0.6 ?m/sec ? MV deceleration [id number] ?msec ? MV A-wave Vmax ?0.7 ?m/sec ? MV E:A ratio ?0.8 ?ratio ? LV septal e' Vmax ?? 0 ?m/sec ? LV lateral e' Vmax ??0.1 ?m/sec ? LV average e' Vmax ??0.1 ?m/sec ? LV E:e' septal ratio14 ? ratio ? LV E:e' lateral rati11.3 ? ratio ? LV average E:e' rati11.6 ? ratio ? Tricuspid Valve ?Value ?Units (Range) ? RAP ? 8 ?mmHg ? Wall Motion: Segment Name ?Rest ? Base-Anteroseptal ?? Normal ? Base-Anterior ? Normal ? Base-Anterolateral ??Akinetic ? Base-Posterolateral Akinetic ? Base-Inferior ? Akinetic ? Base-Inferoseptal ?? Hypokinetic ? Mid-Anteroseptal ?Normal ? Mid-Anterior ?Normal ? Mid-Anterolateral ?? Akinetic ? Mid-Posterolateral ??Akinetic ? Mid-Inferior ?Akinetic ? Mid-Inferoseptal ?Hypokinetic ? [place]-Septal ? Hypokinetic ? [place]-Anterior ? Hypokinetic ? [place]-Lateral ?Hypokinetic ? [place]-Inferior ? Hypokinetic ? [place]-Tip ?Hypokinetic ? This report has been electronically sign ed by: _ Ady Mann MD ? 08/28/2019 12:19:17 Images reviewed and interpretation verif ied [facility] Cardiac Ultrasound Laboratory Procedure Note Ady Mann MD - 08/28/2019Forma tting of this note might be different from the original. Procedure: Transthoracic Echocardiogram Patient: JUANA PLATA(Age): [birth year](64y) Med Rec#: [id number] Sex: M Site Loc: [facility] Ht / Wt: 158(cm)/57(kg) Pt. Loc: Adult Floor BSA: 1.57 Study Date: 08/28/2019 Pt. 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 The left ventricular chamber size is normal. Global left ventricular systolic function is moderately reduced. The quantitative left ventricular ejection fraction by biplane Jaramillo's method is 35%. There are left ventricular segmental wall nicole on abnormalities present, as shown in the diagram below. 2. Right ventricular chamber size, wall thickness, and systolic function are within normal limits. 3. The left atrium is moderately dilated . 4. The aortic valve is tricuspid. Mild ( 1+/4+) aortic valve regurgitation is present. There is no ev idence of aortic valve stenosis. 5. There is mild (1+/4+) mitral regurgit ation present. There is posterior mitral annular calcification. 6. See remainder of report for additiona l findings. Findings : Left Ventricle: The left ventricular camille mber size is normal. Left ventricular wall thickness is norm al. Global left ventricular systolic functi on is moderately reduced. The quantitative left ventricular eject ion fraction by biplane Jaramillo's method is 35%. There are left ventricular segmental wa ll motion abnormalities present, as shown in the diagram below. Doppler assessment is consistent with e levated left sided filling pressure. The basal inferoseptal, mid inferosepta l, apical septal, apical anterior, apical lateral, and apical inf erior wall segments are hypokinetic (score 2). The basal anterolateral, basal inferola teral, basal inferior, mid anterolateral, mid inferolateral, and mi d inferior wall segments are akinetic (score 3). Overall wallmotion score index is 2.13 Left Atrium: The left atrium is moderate ly dilated.43 ml/m2 Right Ventricle: Right ventricular chamb er size, wall thickness, and systolic function are within normal limi ts. Pulmonary artery hypertension could not be assessed due to inadequate tricuspid regurgitation jet. Right Atrium: The right atrium appears n ormal. Aortic Valve: The aortic valve is tricus pid. There is no evidence of aortic valve th ickening. There is aortic annular calcification. There is no evidence of aortic valve st enosis. Mild (1+/4+) aortic valve regurgitation is present. Mitral Valve: The mitral valve leaflets are mildly thickened. There is posterior mitral annular calci fication. There is mild (1+/4+) mitral regurgitat ion present. Tricuspid Valve: The tricuspid valve сергей ears normal in structure and function. There is trace tricuspid regurgitation present. Pulmonic Valve: The pulmonic valve is no t well visualized. There is no evidence of pulmonic regurg itation. Pericardium: The pericardium appears nor mal and there is no evidence of a pericardial effusion. Aorta: The aortic root is normal in size . The ascending aorta is normal in size. Pulmonary Artery: The main pulmonary art hunter appears normal. Venous: The inferior vena cava appears d ilated. Misc: Technically difficult study. Two-dimensional echo, spectral Doppler and color Doppler performed. Optison contrast (one 3 ml vial) was us ed to enhance endocardial definition. Excess contrast was discarde d. Chambers 2D Value Units (Range) IVSd (2D) 1 cm LVPWd (2D) 0.8 cm IVS:LVPW ratio (2D) 1.2 ratio RWT (2D) 0.4 ratio RWT PW (2D) 0.3 ratio LVIDd (2D) 5 cm LVIDs (2D) 4.4 cm LVIDd (2D) index 3.2 cm/m2 LVIDs (2D) index 2.8 cm/m2 LV FS (2D) 13 % EF Teichholz (2D) 27 % Ao root diameter (2D3.3 cm (2.1 - 3.6) Ascending Ao 2.9 cm (2 - 3.5) Volumes/Mass Value Units (Range) LA Area 4 CH 19 cm2 (<21) RA AREA 4CH 16 cm2 LA ESV BP (MOD) inde43.3 ml/m2 LV ESV SP 4CH (MOD) 85 ml LV ESV SP 2CH (MOD) 81 ml LV EDV BP 133 ml LV ESV BP 86 ml LV EDV BP index 84.7 ml/m2 LV ESV BP index 54.8 ml/m2 BP EF (MOD) 35 % LV mass (2D) 167.3 g LV mass (2D) index 106.6 g/m2 Diastolic/Systolic Function Value Units (Range) MV E-wave Vmax 0.6 m/sec MV deceleration zuic080 msec MV A-wave Vmax 0.7 m/sec MV E:A ratio 0.8 ratio LV septal e' Vmax 0 m/sec LV lateral e' Vmax 0.1 m/sec LV average e' Vmax 0.1 m/sec LV E:e' septal ratio14 ratio LV E:e' lateral rati11.3 ratio LV average E:e' rati11.6 ratio Tricuspid Valve Value Units (Range) RAP 8 mmHg Wall Motion: Segment Name Rest Base-Anteroseptal Normal Base-Anterior Normal Base-Anterolateral Akinetic Base-Posterolateral Akinetic Base-Inferior Akinetic Base-Inferoseptal Hypokinetic Mid-Anteroseptal Normal Mid-Anterior Normal Mid-Anterolateral Akinetic Mid-Posterolateral Akinetic Mid-Inferior Akinetic Mid-Inferoseptal Hypokinetic [place]-Septal Hypokinetic [place]-Anterior Hypokinetic [place]-Lateral Hypokinetic [place]-Inferior Hypokinetic [place]-Tip Hypokinetic This report has been electronically sign ed by: _ Ady Mann MD 08/28/2019 12:19: 17 Images reviewed and interpretation verif ied [facility] Cardiac Ultrasound Laboratory Maximus Menezes MD ECHO ORDERABLES Troponin (08/28/2019 5:57 AM EDT) P athologist Signature Troponin-T <0.01 0.00 - 0.00 [facility] ng/mL [facility] Comment: The 99th percentile for Troponin T is le ss than 0.01 ng/mL, any detectable cTnT concentration using this assay should be considered elevated. According to the third universal definit ion of myocardial infarction the following criteria with a clinical prese ntation consistent with acute myocardial ischemia meets the diagnosis for a myocardial infarction (VA). Detection of a rise and/or fall of cTnT, with at least one value greater than the 99th percentile (> or = 0.01) and wi th at least one of the following ?? Symptoms of ischemia ?? New or presumed new significant ST-se gment-T wave (ST-T) changes or new left bundle branch block (LBBB) ?? Development of pathologic Q waves in the ECG ?? Imaging evidence of new loss of viabl e myocardium or new regional wall motion abnormality ?? Identification of an intracoronary th rombus by angiography or autopsy Samples for cTnT testing should be obtai mela serially upon first assessment and again 3 to 6 hours later. If the clinica l suspicion is high and previous samples have been negative an additional sample may be indicated. Reference: Third [place] Definition of Myocardial Infarction. Journal of the [place] [employer] 2012;60:1581-98 Specimen Anatomical Collection Method Collection Time Receive d Time (Source) Location / / Volume Laterality Blood specimen 08/28/2019 5:57 AM 019 6:01 (specimen) EDT AM EDT Resulting Agency Comment Spec In Lab Maximus Menezes MD CHEMISTRY ORDERABLES Performing Organization Address City/State/[place] [address] XR Abdomen 1 view (Generic) (08/28/2019 4:08 AM EDT) Anatomical Region Laterality Modality Abdomen N/A Digital Radiography Specimen (Source) Anatomical Location Collection Method / Collectio n Time Received Time / Laterality Volume Impressions 08/28/2019 5:06 AM EDT 1. ??Nonobstructive bowel gas pattern. 2. ??Moderate stool burden ascending and transverse colon. Preliminary report signed by: Caryn Oakley at 08/28/2019 4:48 AM I have personally reviewed the image(s) and the residents interpretation and agree with the findings, Miguel Adames MD at 08/28/2019 5:06 AM Thank you for letting us participate in the care of this patient. For questions regarding this report, please contact e number below. ? Electronically signed by: Miguel Adames MD, [facility] ([phone]), at 08/28/2019 5:06 AM Narrative 08/28/2019 5:06 AM EDT EXAMINATION: XR ABDOMEN 1 VIEW (GENERIC) CLINICAL HISTORY: hx of epilepsy and TIM VA with abdominal pain, unclear last time he had a BM TECHNIQUE: AP supine view of the abdomen COMPARISON: CT abdomen and pelvis dated 10/14/2016 FINDINGS: The stomach is partially distended. Ther e is a small amount of air within nondilated loops of small bowel. There i s air and a moderate amount of stool throughout the nondilated large bowel. T here is a small amount of contrast seen within the nondilated bilateral collecti ng system and urinary bladder. Faint nephrogram seen bilaterally. Procedure Note Miguel Silva MD - 08/28/2019Formatt ing of this note might be different from the original. EXAMINATION: XR ABDOMEN 1 VIEW (GENERIC) CLINICAL HISTORY: hx of epilepsy and TIM VA with abdominal pain, unclear last time he had a BM TECHNIQUE: AP supine view of the abdomen COMPARISON: CT abdomen and pelvis dated 10/14/2016 FINDINGS: The stomach is partially distended. Ther e is a small amount of air within nondilated loops of small bowel. There i s air and a moderate amount of stool throughout the nondilated large bowel. T here is a small amount of contrast seen within the nondilated bilateral collecti ng system and urinary bladder. Faint nephrogram seen bilaterally. IMPRESSION 1. Nonobstructive bowel gas pattern. 2. Moderate stool burden ascending and t ransverse colon. Preliminary report signed by: Caryn Oakley at 08/28/2019 4:48 AM I have personally reviewed the image(s) and the residents interpretation and agree with the findings, Miguel Adames MD at 08/28/2019 5:06 AM Thank you for letting us participate in the care of this patient. For questions regarding this report, please contact [facility] number below. Electronically signed by: Miguel Adames MD, [facility] ([phone]), at 08/28/2019 5:06 AM Maximus Menezes MD IMG DX ORDERABLES XR Chest One View (08/28/2019 4:08 AM EDT) Anatomical Region Laterality Modality Chest N/A Digital Radiography Specimen (Source) Anatomical Location Collection Method / Collectio n Time Received Time / Laterality Volume Impressions 08/28/2019 5:07 AM EDT Mild pulmonary edema. Preliminary report signed by: Caryn Oakley at 08/28/2019 4:37 AM I have personally reviewed the image(s) and the residents interpretation and agree with the findings, Miguel Adames MD at 08/28/2019 5:07 AM Thank you for letting us participate in the care of this patient. For questions regarding this report, please contact e number below. ? Electronically signed by: Miguel Adames MD, [facility] ([phone]), at 08/28/2019 5:07 AM Narrative 08/28/2019 5:07 AM EDT EXAMINATION: XR CHEST ONE VIEW CLINICAL HISTORY: hx of epilepsy and TIM VA s/p BMS who presents with chest pain and seizures TECHNIQUE: 1 view of the chest COMPARISON: Chest radiograph dated 10/14/2016 FINDINGS: Diffuse patchy airspace opacities throug hout both lungs. No pneumothorax or pleural effusion. The pulmonary vasculat ure is indistinct. Mild bronchial wall thickening The cardiomediastinal silhoue tte is mildly enlarged compared to prior chest radiograph. Absence of distal right clavicle. Questi on postsurgical or related to clavicular ostial lysis.. Procedure Note Miguel Silva MD - 08/28/2019Formatt ing of this note might be different from the original. EXAMINATION: XR CHEST ONE VIEW CLINICAL HISTORY: hx of epilepsy and TIM VA s/p BMS who presents with chest pain and seizures TECHNIQUE: 1 view of the chest COMPARISON: Chest radiograph dated 10/14/2016 FINDINGS: Diffuse patchy airspace opacities throug hout both lungs. No pneumothorax or pleural effusion. The pulmonary vasculat ure is indistinct. Mild bronchial wall thickening The cardiomediastinal silhoue tte is mildly enlarged compared to prior chest radiograph. Absence of distal right clavicle. Questi on postsurgical or related to clavicular ostial lysis.. IMPRESSION Mild pulmonary edema. Preliminary report signed by: Caryn Oakley at 08/28/2019 4:37 AM I have personally reviewed the image(s) and the residents interpretation and agree with the findings, Miguel Adames MD at 08/28/2019 5:07 AM Thank you for letting us participate in the care of this patient. For questions regarding this report, please contact e number below. Electronically signed by: Miguel Adames MD, [facility] ([phone]), at 08/28/2019 5:07 AM Maximus Menezes MD IMG DX ORDERABLES Differential, Automated (08/28/2019 2:30 AM EDT) athologist Signature Neutrophils % 54.4 % [facility] Neutr Abs (ANC) 3.28 1.70 - [facility] 6.10 [facility] x10(3)/[facility] LABORATORY Lymphocytes % 28.9 % [facility] Lymphocytes Abs 1.7 0.9 - 3.2 [facility] x10(3)/[facility] LABORATORY Monocytes % 9.8 % [facility] Monocyte Abs 0.6 0.3 - 0.9 [facility] x10(3)/[facility] LABORATORY Eosinophils % 5.5 % [facility] Eosinophils Abs 0.3 0.0 - 0.4 [facility] x10(3)/[facility] LABORATORY Basophils % 1.2 % [facility] Basophils Abs 0.1 0.0 - 0.1 [facility] x10(3)/[facility] LABORATORY Immature Gran % 0.20 % [facility] Comment: Immature granulocytes(IG's)percentage an d absolute count will include metamyelocytes, myelocytes, and promyelo cytes. Blood smears from CBCs yielding IG's will be scanned manually for concor dance. If this scan disagrees with the automated IG or if promyelocytes are not ed, a manual differential will be performed. Lee Ann Gran Abs 0.01 0.00 - 0.04 x10(3)/[facility] LABORATORY Specimen Anatomical Collection Method Collection Time Receive d Time (Source) Location / / Volume Laterality Blood specimen 08/28/2019 2:30 AM 019 2:55 (specimen) EDT AM EDT Resulting Agency Comment Spec In Lab Christy Hess MD HEMATOLOGY ORDERABLES Performing Organization Address City/State/[place] [address] (ABNORMAL) Hemogram (08/28/2019 2:30 AM EDT) Analysis Performed At Patho logist Time Signature WBC 6.0 4.0 - 9.5 [facility] x10(3)/[facility] LABORATORY RBC 4.46 (L) 4.58 - [facility] 5.54 [facility] x10(6)/[facility] LABORATORY Hemoglobin 13.1 (L) 13.7 - [facility] 16.5 gm/dL [facility] Hematocrit 40.4 (L) 40.5 - [facility] 48.5 % [facility] MCV 90.6 82.9 - [facility] 93.1 [facility] LABORATORY MCH 29.4 27.5 - [facility] MOOREJHONY 32.1 pg [facility] MCHC 32.4 32.0 - [facility] MOOREJHONY 35.7 gm/dL [facility] Platelets 128 (L) 145 - 357 [facility] x10(3)/[facility] LABORATORY RDWSD 46.5 (H) 36.0 - [facility] MOORE[facility]ONY 45.0 [facility] LABORATORY RDWCV 13.9 (H) 11.4 - [facility] 13.[facility] % [facility] MPV 10.2 7.6 - 12.9 [facility] [place] [facility] nRBC % Auto 0.0 % [facility] nRBC Abs Auto 0.000 0.000 - RICHARD JHONY 0.000 [facility] x10(3)/[facility] LABORATORY Specimen Anatomical Collection Method Collection Time Receive d Time (Source) Location / / Volume Laterality Blood specimen 08/28/2019 2:30 AM 019 2:55 (specimen) EDT AM EDT Resulting Agency Comment Spec In Lab Christy Hess MD HEMATOLOGY ORDERABLES Performing Organization Address City/[facility]/[place] [address] (ABNORMAL) pro-Brain Natriuretic Peptide (08/28/2019 2:30 AM EDT) P athologist Signature ProBNP 312 (H) <=125 pg/mL [facility] Specimen Anatomical Collection Method Collection Time Receive d Time (Source) Location / / Volume Laterality Blood specimen 08/28/2019 2:30 AM 019 2:55 (specimen) EDT AM EDT Resulting Agency Comment Spec In Lab Maximus Menezes MD CHEMISTRY ORDERABLES Performing Organization Address City/State/[place] [address] Troponin (08/28/2019 2:30 AM EDT) athologist Signature Troponin-T <0.01 0.00 - 0.00 [facility]Y ng/mL [facility] Comment: The 99th percentile for Troponin T is le ss than 0.01 ng/mL, any detectable cTnT concentration using this assay should be considered elevated. According to the third universal definit ion of myocardial infarction the following criteria with a clinical prese ntation consistent with acute myocardial ischemia meets the diagnosis for a myocardial infarction (VA). Detection of a rise and/or fall of cTnT, with at least one value greater than the 99th percentile (> or = 0.01) and wi th at least one of the following ?? Symptoms of ischemia ?? New or presumed new significant ST-se gment-T wave (ST-T) changes or new left bundle branch block (LBBB) ?? Development of pathologic Q waves in the ECG ?? Imaging evidence of new loss of viabl e myocardium or new regional wall motion abnormality ?? Identification of an intracoronary th rombus by angiography or autopsy Samples for cTnT testing should be obtai mela serially upon first assessment and again 3 to 6 hours later. If the clinica l suspicion is high and previous samples have been negative an additional sample may be indicated. Reference: Third [place] Definition of Myocardial Infarction. Journal of the [place] [employer] 2012;60:1581-98 Specimen Anatomical Collection Method Collection Time Receive d Time (Source) Location / / Volume Laterality Blood specimen 08/28/2019 2:30 AM 019 2:55 (specimen) EDT AM EDT Resulting Agency Comment Spec In Lab Maximus Menezes MD CHEMISTRY ORDERABLES Performing Organization Address City/State/[place] [address] Lamotrigine Lvl (08/28/2019 2:30 AM EDT) athologist Signature Lamotrigine Lvl 4.9 2.5 - 15.0 [facility] CARLYN K mcg/mL [facility] Comment: ADDITIONAL INFORMATIO N This test was developed and its performa nce characteristics determined by [facility] in a manner co nsistent with CLIA requirements. This test has not been kaitlyn ared or approved by the U.S. Food and Drug Administration. Test Performed by: [facility] [address] , [place], [place] [address] It Administrator: Cody Easton M.D. Ph. D.; CLIA# [id number] Specimen Anatomical Collection Method Collection Time Receive d Time (Source) Location / / Volume Laterality Blood specimen 08/28/2019 2:30 AM 019 9:03 (specimen) EDT AM EDT Resulting Agency Comment Spec In Lab Maximus Mneezes MD CHEMISTRY ORDERABLES Performing Organization Address City/State/[place] [address] CMP w/fasting Glucose (08/28/2019 2:30 AM EDT) athologist Signature Glucose 99 65 - 99 [facility] Fasting mg/dL [facility] Comment: ?Fasting* Glucose Interpretive C riteria Normal ?65-99 mg/dL Impaired Fasting glucose ?100-125 mg/dL Consistent with Diabetes Mellitus ? >or= 126 mg/dL *Fasting is defined as no caloric intake for at least 8 hours In the absence of unequivocal hypergly cemia a plasma glucose value of >or= 126 mg/dL should be repeated on a subseq uent day. Diagnosis and Classification of Diabetes Mellitus, Position Statement from the [place] [employer]. ??Diabete s Care, Volume 33, Supplement 1, Nov 2009 BUN 13 10 - 20 mg/dL [facility] Creatinine 1.05 0.80 - 1.50 mg/dL [facility] Sodium 140 135 - 145 mmol/L [facility] Potassium 4.1 3.5 - 5.0 mmol/L [facility] Comment: Please note: ??Patients with WBC >100,00 0 may have falsely elevated Potassium levels. ??For accurate Potassium quantif ication in these patients send serum separator tube (gold top) for subsequent determinations. ??Contact the Clinical Chemistry Laboratory if there are any qu estions. Chloride 104 98 - 107 mmol/L [facility] CO2 26 22 - 31 mmol/L [facility] Anion Gap 10 5 - 15 mmol/L [facility] Calcium 9.0 8.5 - 10.5 mg/dL [facility] Total Protein 6.1 6.1 - 8.0 gm/dL [facility] Albumin 3.9 3.2 - 5.2 gm/dL [facility] AST 17 0 - 39 unit/L [facility] ALT 11 0 - 55 unit/L [facility] Alk Phos 113 40 - 130 unit/L [facility] Total Bilirubin 0.3 0.2 - 1.3 mg/dL [facility] Estimated GFR 75 >=60 mL/min/1.73 m?? [facility] Comment: The eGFR was calculated using the CKD-EP I equation. As with all creatinine based estimates of kidney function, eGFR values calculated with the CKD-EPI equation are not accurate in patients wi th acute kidney failure, extremes of body mass or the acutely ill. [email or web address]/[facility] eGFR 87 >=60 mL/min/1.73 m?? [facility] Comment: The eGFR was calculated using the CKD-EP I equation. As with all creatinine based estimates of kidney function, eGFR values calculated with the CKD-EPI equation are not accurate in patients wi th acute kidney failure, extremes of body mass or the acutely ill. [email or web address] Specimen Anatomical Collection Method Collection Time Receive d Time (Source) Location / / Volume Laterality Blood specimen 08/28/2019 2:30 AM 019 2:55 (specimen) EDT AM EDT Resulting Agency Comment Spec In Lab Maximus Menezes MD CHEMISTRY ORDERABLES Performing Organization Address City/State/ZIP Code Phon e Number [address] Phosphorus (08/28/2019 2:30 AM EDT) P athologist Signature Phosphorus 3.6 2.5 - 4.5 [facility] mg/dL [facility] Specimen Anatomical Collection Method Collection Time Receive d Time (Source) Location / / Volume Laterality Blood specimen 08/28/2019 2:30 AM 019 2:55 (specimen) EDT AM EDT Resulting Agency Comment Spec In Lab Maximus Menezes MD CHEMISTRY ORDERABLES Performing Organization Address City/[facility]/ZIP Code Phon e Number [address] Magnesium (08/28/2019 2:30 AM EDT) P athologist Signature Magnesium 0.83 0.69 - 1.07 [facility] mmol/L [facility] Specimen Anatomical Collection Method Collection Time Receive d Time (Source) Location / / Volume Laterality Blood specimen 08/28/2019 2:30 AM 019 2:55 (specimen) EDT AM EDT Resulting Agency Comment Spec In Lab Maximus Menezes MD CHEMISTRY ORDERABLES Performing Organization Address City/[facility]/ZIP Code Phon e Number [address] APTT (08/28/2019 2:30 AM EDT) P athologist Signature PTT 35 25 - 37 sec [facility] Comment: The PTT is NOT appropriate for heparin m onitoring. Use the Anti-Xa level for heparin monitoring (HEP UFH) or LMWH mon itoring (HEP LMW). A PTT less than 37 seconds generally indicates adequate hem ostasis. Specimen Anatomical Collection Method Collection Time Receive d Time (Source) Location / / Volume Laterality Blood specimen 08/28/2019 2:30 AM 019 2:55 (specimen) EDT AM EDT Resulting Agency Comment Spec In Lab Maximus Menezes MD HEMATOLOGY ORDERABLES Performing Organization Address City/[facility]/ZIP Code Phon e Number [address] (ABNORMAL) Prothrombin Time (08/28/2019 2:30 AM EDT) P athologist Signature PT 14.3 (H) 9.4 - 12.5 [facility] LABORATORY INR 1.2 [facility] Comment: An INR <2.0 indicates adequate procoagul ant activity for hemostasis in most patients without underlying bleeding dis orders, though the INR may not adequately reflect hemostatic capacity i n patients with liver disease and synthetic impairment. The recommended ta rget INR range for therapeutic anticoagulation is 2.0 ? 3.0 for most applications, though lower and higher ranges may be appropriate depending on c linical circumstances. Specimen Anatomical Collection Method Collection Time Receive d Time (Source) Location / / Volume Laterality Blood specimen 08/28/2019 2:30 AM 019 2:55 (specimen) EDT AM EDT Resulting Agency Comment Spec In Lab Maximus Menezes MD HEMATOLOGY ORDERABLES Performing Organization Address City/[facility]/ZIP Code Phon e Number [address] Lactate, whole blood, send to lab ([facility]) (08/28/2019 2:30 AM EDT) P athologist Signature Lactate WB 1.0 0.5 - 2.2 [facility] mmol/L [facility] Specimen Anatomical Collection Method Collection Time Receive d Time (Source) Location / / Volume Laterality Blood specimen 08/28/2019 2:30 AM 019 2:44 (specimen) EDT AM EDT Resulting Agency Comment Spec In Lab Maximus Menezes MD CHEMISTRY ORDERABLES Performing Organization Address City/State/ZIP Code Phon e Number [address] EKG 12 Lead (08/28/2019 2:21 AM EDT) Component Value Ref Range Test Analysis Performed Pathologis t Method Time At Signature Ventricular rate 44 BPM MUSE SYSTEM Atrial Rate 44 BPM MUSE SYSTEM P-R Interval 164 ms MUSE SYSTEM QRS Duration 86 ms MUSE SYSTEM Q-T Interval 512 ms MUSE SYSTEM QTC Calculated 437 ms MUSE SYSTEM (Bezet) Calculated P Silver 39 degrees MUSE SYSTEM Calculated R Silver 48 degrees MUSE SYSTEM Calculated T Silver 72 degrees MUSE SYSTEM INTERPRETATION Marked sinus bradycardia MUSE SYSTEM Nonspecific T wave abnormality Cannot rule out Inferior infarct (cited on or before 2015) Abnormal ECG When compared with ECG of 13-OCT-2016 10:08, Vent. rate has decreased BY ??26 BPM Confirmed by MD Marilee, Jameel Virgen ([id number]) on 08/28/2019 12:19 :29 PM Specimen Anatomical Collection Method Collection Time Receive d Time (Source) Location / / Volume Laterality 08/28/2019 2:21 AM 9 EDT 12:19 PM EDT Maximus Menezes MD ECG ORDERABLES Performing Organization Address City/State/ZIP Code Phon e Number MUSE SYSTEM POCT Glucose (08/28/2019 1:13 AM EDT) athologist Signature POC Glucose 97 65 - 199 [facility] mg/dL [facility] Comment: Supplemental ranges: <140 mg/dL before meals <180 mg/dL all other times of the day Specimen Anatomical Collection Method Collection Time Receive d Time (Source) Location / / Volume Laterality Blood specimen 08/28/2019 1:13 AM 019 1:13 (specimen) EDT AM EDT Maximus Menezes MD POINT OF CARE TEST ORDERABLE S Performing Organization Address City/State/[place] [address] documented in this encounter Visit Diagnoses Diagnosis Coronary artery disease involving viejas coronary artery of viejas heart without angina pectoris Seizure disorder Unspecified epilepsy without mention of intractable epilepsy Seizure Other convulsions Chest pain Chest pain, unspecified documented in this encounter Admitting Diagnoses Diagnosis Seizure Other convulsions documented in this encounter Administered Medications Inactive Administered Medications - up to 3 most recent administrations Medication Order MAR Action Action Date Dose Rate Site acetaminophen (TYLENOL) tablet Given 08/28/2019 3:40 PM EDT 1,00 0 mg 1,000 mg 1,000 mg, Oral, EVERY 8 HOURS PRN, Starting on Wed08/28/19 at 1342, Until Wed08/29/19 at 1746, Pain, Maximum dose of acetaminophen is 4000 mg from all sources in 24 hours., Routine acetaminophen (TYLENOL) tablet 1,000 mg 1,000 mg, Oral, EVERY 6 HOURS PRN, Starting on Wed at 1800, Until Wed08/30/19 at 1841, Pain, Maximum dose of acetaminophen is 4000 mg from all sources in 24 hours., Routine acetaminophen (TYLENOL) tablet 650 mg Given 08/29/2019 5:04 PM EDT 650 mg 650 mg, Oral, EVERY 6 HOURS SCHEDULED, First dose on Wed08/28/19 at 1800, Until Discontinued, Maximum dose of acetaminophen is 4000 mg from all sources in 24 hours., Routine Given 08/29/2019 12:47 PM EDT 650 mg Given 08/29/2019 5:09 AM EDT 650 mg apixaban (ELIQUIS) tablet 5 mg Given 08/30/2019 8:59 AM EDT 5 mg 5 mg, Oral, 2 TIMES DAILY, First dose on Wed08/28/19 at 2100, Until Discontinued, Anticoagulant, Routine, Restricted anticoagulant, choose the most appropriate response: Continuation of ongoing therapy Given 08/29/2019 9:25 PM EDT 5 mg Given 08/29/2019 9:47 AM EDT 5 mg atorvastatin (LIPITOR) tablet 80 mg Given 08/29/2019 5:05 PM EDT 80 mg 80 mg, Oral, DAILY, First dose on Wed08/28/19 at 1700, Until Discontinued, Routine Given 08/28/2019 5:42 PM EDT 80 mg baclofen (LIORESAL) tablet 5 mg Given 08/29/2019 9:38 PM EDT 5 mg 5 mg, Oral, ONCE, 1 dose, On Wed08/29/19 at 2145, Routine citalopram (CeleXA) tablet 40 mg Given 08/30/2019 8:59 AM EDT 40 mg 40 mg, Oral, DAILY, First dose on Wed08/28/19 at 0900, Until Discontinued, Routine Given 08/29/2019 9:46 AM EDT 40 mg Given 08/28/2019 9:11 AM EDT 40 mg clopidogrel (PLAVIX) tablet 75 mg Given 08/30/2019 8:58 AM EDT 75 mg 75 mg, Oral, DAILY, First dose on Wed08/28/19 at 0900, Until Discontinued, Routine Given 08/29/2019 9:46 AM EDT 75 mg Given 08/28/2019 9:11 AM EDT 75 mg fentaNYL (DURAGESIC) 50 Patch Applied 08/29/2019 6:07 PM 1 patch 03- Shoulder mcg/hr patch 1 patch EDT (Left) 1 patch, Transdermal, EVERY 72 HOURS, First dose on Wed08/29/19 at 1815, Until Discontinued, Place fentaNYL patch, Routine fentaNYL (DURAGESIC) 50 mcg/hr Patch Rem oval Transdermal, EVERY 72 HOURS, First dose on Wed09/01/19 at 1800, Until Discontinued, Remove fentaNYL 50 mcg/hr patch fentaNYL (DURAGESIC) 50 mcg/hr Patch Mariaelena ification Transdermal, 2 TIMES DAILY, First dose o n Wed08/30/19 at 0600, Until Discontinued, Verify fentaNYL 50 mcg/hr patch gabapentin (NEURONTIN) capsule 600 mg Given 08/30/2019 12:08 PM EDT 600 mg 600 mg, Oral, 4 TIMES DAILY, First dose on Wed08/28/19 at 0900, Until Discontinued, Routine Given 08/30/2019 8:58 AM EDT 600 mg Given 08/29/2019 9:25 PM EDT 600 mg ipratropium-albuterol (DUONEB) 0.5 mg-3 mg(2.5 mg base)/3 mL nebulizer solution 3 mL 3 mL, Nebulization, EVERY 4 HOURS PRN, S tarting on Wed08/28/19 at 0717, Until Wed08/30/19 at 1841, Wheezing, Routine lamoTRIgine (LaMICtal) tablet 50 mg Given 08/30/2019 8:59 AM EDT 50 mg 50 mg, Oral, 2 TIMES DAILY, First dose on Wed08/28/19 at 2100, Until Discontinued, Routine Given 08/29/2019 9:25 PM EDT 50 mg Given 08/29/2019 9:47 AM EDT 50 mg levETIRAcetam (KEPPRA) 500 mg in New Bag 08/28/2019 9:13 AM ED T 500 mg 400 mL/hr sodium chloride 0.82% 100 mL 500 mg, Intravenous, at 400 mL/hr, EVERY 12 HOURS SCHEDULED (2 times per day), First dose on Wed08/28/19 at 0230, Until Discontinued, Routine New Bag 08/28/2019 2:30 AM EDT 500 mg 400 mL/hr levETIRAcetam (KEPPRA) tablet 500 mg Given 08/30/2019 8:59 AM EDT 500 mg 500 mg, Oral, 2 TIMES DAILY, First dose (after last modification) on Wed08/28/19 at 1215, Until Discontinued, Routine Given 08/29/2019 9:25 PM EDT 500 mg Given 08/29/2019 9:46 AM EDT 500 mg lisinopril (PRINIVIL;ZESTRIL) tablet 2.5 mg Given 08/30/2019 8:58 AM EDT 2.5 mg 2.5 mg, Oral, DAILY, First dose on Wed08/30/19 at 0900, Until Discontinued, Routine LORazepam (ATIVAN) injection 1 mg 1 mg, Intravenous, EVERY 4 HOURS PRN, St arting on Wed08/28/19 at 0235, Until Wed08/30/19 at 1841, Seizures, Routine mometasone (ASMANEX) aerosol 1 puff Given 08/29/2019 9:25 PM EDT 1 puff 1 puff, Inhalation, 2 TIMES DAILY, First dose (after last reorder) on Wed08/28/19 at 0245, Until Discontinued, Shake well; Rinse mouth after administration., Routine oxyCODONE (ROXICODONE) immediate release tablet 2.5 mg 2.5 mg, Oral, EVERY 4 HOURS PRN, Starting on 08/29 at 1744, Until Wed08/30/19 at 1841, Pain, Routine oxyCODONE (ROXICODONE) immediate release tablet Given 08/28/2019 9:33 PM EDT 5 mg 5-10 mg 5-10 mg, Oral, EVERY 4 HOURS PRN, Starting on Wed08/28/19 at 1513, Until Wed08/29/19 at 0542, Pain, give 5 mg for pain 5/10-7/10, give 10 mg for pain >7/10, Routine Given 08/28/2019 3:40 PM EDT 5 mg pantoprazole (PROTONIX) tablet 40 mg Given 08/30/2019 8:58 AM EDT 40 mg 40 mg, Oral, DAILY, First dose on Wed08/28/19 at 0900, Until Discontinued, DO NOT CRUSH OR OPEN, Routine Given 08/29/2019 9:47 AM EDT 40 mg Given 08/28/2019 9:11 AM EDT 40 mg perflutren protein-A microspheres (OPTISON) Given 08/02 10:30 AM EDT 2.4 mLs 0.22 mg/mL injection 2.4 mL 2.4 mL, Intravenous, ONCE PRN, 1 dose, Starting on Wed08/28/19 at 1147, Until Wed08/28/19 at 1030, Per Protocol, Routine phenytoin (DILANTIN) chewable tablet 100 mg Given 08/30/2019 8:59 AM EDT 100 mg 100 mg, Oral, EVERY MORNING, First dose (after last modification) on Wed08/29/19 at 0700, Until Discontinued, Routine Given 08/29/2019 8:03 AM EDT 100 mg phenytoin (DILANTIN) chewable tablet 200 mg Given 08/28/2019 9:06 PM EDT 200 mg 200 mg, Oral, EVERY EVENING, First dose on Wed08/28/19 at 1945, Until Discontinued, Routine phenytoin (DILANTIN) chewable tablet 200 mg Given 08/29/2019 9:26 PM EDT 200 mg 200 mg, Oral, NIGHTLY, First dose (after last modification) on Wed08/29/19 at 2100, Until Discontinued, Routine polyethylene glycol (MIRALAX) packet 17 g Given 08/30/2019 8:58 AM EDT 17 g 17 g, Oral, DAILY, First dose on Wed08/28/19 at 0900, Until Discontinued, Routine Given 08/29/2019 9:46 AM EDT 17 g Given 08/28/2019 9:11 AM EDT 17 g traZODone (DESYREL) tablet 200 mg Given 08/29/2019 9:25 PM EDT 200 mg 200 mg, Oral, NIGHTLY, First dose on Wed08/28/19 at 2100, Until Discontinued, Routine Given 08/28/2019 8:10 PM EDT 200 mg documented in this encounter Active and Recently Administered Medications Times are shown in EDT. Scheduled Medication Order 08/28/2019 08/29/2019 08/30/2019 acetaminophen (TYLENOL) tablet 650 mg (CANCELED) 4783 (Given - Provider: Matthias Pedraza RN)2232 (Not Given - Provider: Mirna Caballero RN - Reason: Patient Unable - Comment: pt sleping) 6787 (Given - Provider: Mirna watters RN)124 (Given - Provider: Paula Staley RN)1703 (Given - Provider: Paula Staley RN) 650 mg, Oral, EVERY 6 HOURS SCHEDULED, F irst dose on Wed08/28/19 at 1800, Until Discontinued, Maximum dose of acetaminophen is 4000 mg from all sources in 24 hours., Routine apixaban (ELIQUIS) tablet 5 mg 2009 (Given - Provider: Dane Caballero RN) 946 (Given - Provider: Paula Staley RN)2124 (Given - Provider: Gem Man RN) 0859 (Given - Provider: Paula Staley RN) 5 mg, Oral, 2 TIMES DAILY, First dose on Wed08/28/19 at 2100, Until Discontinued, Anticoagulant, Routine atorvastatin (LIPITOR) tablet 80 mg 1741 (Given - Provider: Matthias Pedraza RN) 1704 (Given - Provider: Paula Staley RN) 80 mg, Oral, DAILY, First dose on Wed at 1700, Until Discontinued, Routine baclofen (LIORESAL) tablet 5 mg (COMPLETED) 2137 (Given - Provider: Gem Man RN) 5 mg, Oral, ONCE, 1 dose, Wed08/29/19 at 2145, Routine citalopram (CeleXA) tablet 40 mg 910 (Given - Provider: Devyn Ng RN) 0946 (Given - Provider: Paula Staley RN) 0859 (Given - Provider: Paula Staley RN) 40 mg, Oral, DAILY, First dose on Wed at 0900, Until Discontinued, Routine clopidogrel (PLAVIX) tablet 75 mg 910 (Given - Provider: Jorge Luis Pedraza RN) 0946 (Given - Provider: Paula Staley RN) 0858 (Given - Provider: Paula Staley RN) 75 mg, Oral, DAILY, First dose on Wed at 0900, Until Discontinued, Routine fentaNYL (DURAGESIC) 50 mcg/hr patch 1 patch(Linked Group 1) 1806 (Patch Applied - Provider: Paula Staley RN) 1 patch, Transdermal, EVERY 72 HOURS, Fi rst dose on Wed08/29/19 at 1815, Until Discontinued, Place fentaNYL patch, Routine fentaNYL (DURAGESIC) 50 mcg/hr Patch Removal(Linked Group 1) Transdermal, EVERY 72 HOURS, First dose on Wed09/01/19 at 1800, Until Discontinued, Remove fentaNYL 50 mcg/hr patch fentaNYL (DURAGESIC) 50 mcg/hr Patch Verification(Linked Group 1 ) 0600 (Patch (dose and location) verified - Provider: Gem Man, TRES) Transdermal, 2 TIMES DAILY, First dose o n Wed08/30/19 at 0600, Until Discontinued, Verify fentaNYL 50 mcg/hr patch gabapentin (NEURONTIN) capsule 600 mg 0911 (Given - Pr ovider: Matthias Pedraza RN)1219 (Given - Provider: Jasmin Wilkinson RN)1742 (Given - Provider: Matthias Pedraza RN)2009 (Given - Provider: Mirna Caballero RN) 0947 (Given - Provider: Paula Staley RN)1247 (Given - Provider: Paula Staley RN)1705 (Given - Provider: Paula Staley RN)212 (Given - Provider: Gem Man RN) 0858 (Given - Provider: Paula Staley RN)1208 (Given - Provider: Paula Staley RN) 600 mg, Oral, 4 TIMES DAILY, First dose on Wed08/28/19 at 0900, Until Discontinued, Routine lamoTRIgine (LaMICtal) tablet 50 mg 2009 (Given - Prov ider: Mirna Caballero RN) 0947 (Given - Provider: Paula Staley RN)212 (Given - Provider: Gem Man RN) 0859 (Given - Provider: Paula Staley RN) 50 mg, Oral, 2 TIMES DAILY, First dose o n Wed08/28/19 at 2100, Until Discontinued, Routine levETIRAcetam (KEPPRA) 500 mg in sodium chloride 0.82% 100 mL (CANCELED) 0230 (New Bag - Provider: Helga Barrera RN)0245 (Stopped - Provider: Helga Barrera RN)0913 (New Bag - Provider: Matthias Pedraza RN)0928 (Stopped - Provider: Matthias Pedraza RN) 500 mg, Intravenous, EVERY 12 HOURS SCHE DULED (2 times per day), First dose on Wed08/28/19 at 0230, Until Discontinued, Administer over 15 Minutes levETIRAcetam (KEPPRA) tablet 500 mg 1220 (Given - Pro vider: Jasmin Wilkinson RN)2009 (Given - Provider: Mirna Caballero, TRES) 945 (Given - Provider: Paula Staley RN)2124 (Given - Provider: Gem Man RN) 08 (Given - Provider: Paula Staley RN) 500 mg, Oral, 2 TIMES DAILY, First dose on Wed08/28/19 at 1215, Until Discontinued, Routine lisinopril (PRINIVIL;ZESTRIL) tablet 2.5 mg 08 (Given - Provider: Paula Staley RN) 2.5 mg, Oral, DAILY, First dose on Wed at 0900, Until Discontinued, Routine mometasone (ASMANEX) aerosol 1 puff 024 (Not Given - Provider: Jasmin Wilkinson RN - Reason: Medication not available)899 (Not Given - Provider: Jasmin Wilkinson RN - Reason: Patient/family refused)2010 (Not Given - Provider: Mirna Caballero RN - Reason: Patient/family refused) 945 (Not Given - Provider: Paula Staley RN - Reason: Patient/family refused - Comment: I don't need it. I'm breathing good on my own Denies SOB, wheezes.)2124 (Given - Provider: Gem Man RN) 08 (Not Given - Provider: Paula ram RN - Reason: Patient/family refused - Comment: i dont need it) 1 puff, Inhalation, 2 TIMES DAILY, First dose on Wed08/28/19 at 0245, Until Discontinued, Shake well; Rinse mouth after administration., Routine pantoprazole (PROTONIX) tablet 40 mg 0911 (Given - Provider: Matthias Pedraza RN) 0947 (Given - Provider: Paula Staley, TRES) 0858 (Given - Provider: Paula Staley RN) 40 mg, Oral, DAILY, First dose on Wed at 0900, Until Discontinued, DO NOT CRUSH OR OPEN, Routine phenytoin (DILANTIN) chewable tablet 100 mg 0803 (Given - Provider: Paula Staley RN) 0859 (Given - Provider: Paula Staley RN) 100 mg, Oral, EVERY MORNING, First dose on Wed08/29/19 at 0700, Until Discontinued, Routine phenytoin (DILANTIN) chewable tablet 200 mg (CANCELED) 2105 (Given - Provider: Mirna Caballero RN) 200 mg, Oral, EVERY EVENING, First dose on Wed08/28/19 at 1945, Until Discontinued, Routine phenytoin (DILANTIN) chewable tablet 200 mg 2125 (Given - Provider: Gem Man RN) 200 mg, Oral, NIGHTLY, First dose on Wed08/29/19 at 2100, Until Discontinued, Routine polyethylene glycol (MIRALAX) packet 17 g 09 (Given - Provider: Matthias Pedraza RN) 0946 (Given - Provider: Paula Staley RN) 0858 (Giv en - Provider: Paula Staley RN) 17 g, Oral, DAILY, First dose on Wed at 0900, Until Discontinued, Routine traZODone (DESYREL) tablet 200 mg 2009 (Given - Provid er: Mirna Caballero RN) 2124 (Given - Provider: Gem Man, TRES) 200 mg, Oral, NIGHTLY, First dose on Wed08/28/19 at 2100, Until Discontinued, Routine PRN Medication Order 08/28/2019 08/29/2019 08/30/2019 acetaminophen (TYLENOL) tablet 1,000 mg (CANCELED) 154 0 (Given - Provider: Matthias Pedraza RN) 1,000 mg, Oral, EVERY 8 HOURS PRN, Start ing Wed08/28/19 at 1342, Until Wed08/29/19 at 1746, Pain, Maximum dose of acetaminophen is 4000 mg from all sources in 24 hours., Routine acetaminophen (TYLENOL) tablet 1,000 mg 1,000 mg, Oral, EVERY 6 HOURS PRN, Start ing Wed08/29/19 at 1800, Until Wed08/30/19 at 1841, Pain, Maximum dose of acetaminophen is 4000 mg from all sources in 24 hours., Routine ipratropium-albuterol (DUONEB) 0.5 mg-3 mg(2.5 mg base)/3 mL nebulizer solution 3 mL 3 mL, Nebulization, EVERY 4 HOURS PRN, S tarting Wed08/28/19 at 0717, Until Wed08/30/19 at 1841, Wheezing, Routine LORazepam (ATIVAN) injection 1 mg 1 mg, Intravenous, EVERY 4 HOURS PRN, St arting Wed08/28/19 at 0235, Until Wed08/30/19 at 1841, Seizures, Routine oxyCODONE (ROXICODONE) immediate release tablet 2.5 mg 2.5 mg, Oral, EVERY 4 HOURS PRN, Startin g Wed08/29/19 at 1744, Until Wed08/30/19 at 1841, Pain, Routine oxyCODONE (ROXICODONE) immediate release tablet 5-10 m g (CANCELED) 1540 (Given - Provider: Matthias Pedraza, RN)2133 (Given - Provider: Mirna Caballero RN) 5-10 mg, Oral, EVERY 4 HOURS PRN, Starti ng Wed08/28/19 at 1513, Until Wed08/29/19 at 0542, Pain, give 5 mg for pain 5/10-7/10, give 10 mg for pain >7/10, Routine perflutren protein-A microspheres (OPTIS ON) 0.22 mg/mL injection 2.4 mL (COMPLETED) 1030 (Given - Provider: Miguel Lockett) 2.4 mL, Intravenous, ONCE PRN, 1 dose, S tarting Wed08/28/19 at 1147, Until Wed08/28/19 at 1030, Per Protocol, Routine Linked Groups Order Group 1: fentaNYL (DURAGESIC) 50 mcg/hr patch 1 patchJump to med 1 patch, Transdermal, EVERY 72 HOURS, Fi rst dose on Wed08/29/19 at 1815, Until Discontinued
Place fentaNYL patch
Routine And fentaNYL (DURAGESIC) 50 mcg/hr Patch VerificationJump to med Transdermal, 2 TIMES DAILY, First dose o n Wed08/30/19 at 0600, Until Discontinued
Verify fentaNYL 50 mcg/hr patch
And fentaNYL (DURAGESIC) 50 mcg/hr Patch RemovalJump to med Transdermal, EVERY 72 HOURS, First dose on Wed09/01/19 at 1800, Until Discontinued
Remove fentaNYL 50 mcg/hr patch
documented in this encounter Care Teams Veterinary Poultry Inspector Relationship Specialty Start Date End Date Aissatou Briggs APRN PCP - General Internal Medicine 07/29/[address] [place] [address] documented as of this encounter
--- OUTSIDE RECORDS SUMMARY | 2022-08-15 01:34 | XMS_ITS | Encounter Summary ---
:1955 Author Organization [facility] [place] [address] Care Team Providers Name Role Phone Aissatou Brigsg APRN Primary Care Provider Encounter Details Date Type Department Care Team Description 09/24/2017 Telephone Neurosurgery at [facility] [place] [address] Social History Tobacco Use Types Packs/Day Years Used Date Former Smoker Cigarettes Quit: 05/14/20 08 Smokeless Tobacco: Never Used Alcohol Use Standard Drinks/Week Comments No 0 (1 standard drink = 0.6 oz pure alcoho l) Sex Assigned at Date Recorded Not on file documented as of this encounter Miscellaneous Notes Telephone Encounter - Jasmin Le - 10/01/2017 9:32 AM EST [facility] called back to schedule 2 week f/u & xrays with Dr. Bullard, patientbeing d/c to the [facility] in [place], [place] requested appointment be scheduled for week of 10/18due to rehab. Telephone Encounter - Jasmin Le - 09/29/2017 3:24 PM EST Patient admitted still at [facility]. Spoke to Tori and she is going to call back from [place] to let us know about scheduling f/u w/COLBY & xrays. Telephone Encounter - Jasmin Le - 09/24/2017 10:47 AM EST ?? Hi, Please set Mr. Miguel Pérez with an appointment within 2 weeks with C spine flex/ex films with Dr. Bullard. If Dr. Bullard is not available, Dr. Alonzo said he would be happy to see the patient as well. Thanks, Imad Telephone Encounter - Jasmin Le - 09/24/2017 10:45 AM EST Called patient to schedule an appt with Dr. Bullard and X-rays prior within 2 weeks, and informed patient is an inpatient at [facility]. documented in this encounter Plan of Treatment Upcoming Encounters Date Type Specialty Care Team Description 09/04/2022 Ancillary Procedure Radiology Aissatou Briggs Canc eled (D-SCHED ERROR SENIOR CORE JAVA DEVELOPER / CORRECTION ) [address] [place] [address] (Wo rk) documented as of this encounter Visit Diagnoses Not on filedocumented in this encounter Care Teams Revenue Cycle Consultant Relationship Specialty Start Date End Date Aissatou Briggs APRN PCP - General Internal Medicine 07/29/16 [address] [place] [address] documented as of this encounter
--- OUTSIDE RECORDS SUMMARY | 2022-08-15 01:34 | XMS_ITS | Encounter Summary ---
:1955 [place] [address] Care Team Providers Name Role Phone Aissatou Briggs SOUND RECORDIST Primary Care Provider Encounter Details Date Type Department Care Team Description 08/27/2019 Ancillary Procedure [facility] [place] [address] PULMONARY MEDICINE [phone] [place] [address] (Wo rk) Social History Tobacco Use Types [...] Radiology Aissatou Briggs, Berto velázquez (D-SCHED ERROR SOUND RECORDIST / CORRECTION ) [address] [place] [address] (Wo rk) documented as of this encounter Procedures Procedure Name Priority Date/Time Associated Diagnosis Comme nts FILM LIBRARY Routine 08/27/2019 10:33 PM Results for this STORAGE ONLY CT EDT procedure ar e in [facility] the results section. documented in this encounter Results Film Library- Storage Only CT Head [facility] Sp[facility] (08/27/2019 10:33 PM EDT) Specimen (Source) Anatomical Location Collection Method / Collectio n Time Received Time / Laterality Volume Narrative RAD - 08/27/2019 10:33 PM EDT This exam is auto-finalizing. It's purpo se is for storage only. Maximus Menezes MD IMG FILM LIBRARY ORDERABLES Performing Organization Address City/State/ZIP Code Phon e Number [place], [place] documented in this encounter Visit Diagnoses Not on filedocumented in this encounter Care Teams Claim Benefit Specialist Relationship Specialty Start Date End Date Aissatou Briggs APRN PCP - General Internal Medicine 07/29/[address] [place] [address] documented as of this encounter
--- OUTSIDE RECORDS SUMMARY | 2022-08-15 01:34 | XMS_ITS | Encounter Summary ---
:1955 [place] [address] Care Team Providers Name Role Phone Aissatou Briggs APRN Primary Care Provider Reason for Visit Auth/Cert Specialty Diagnoses / Procedures Referred By Contact Refer red To Contact Diagnoses Cervical spondylosis CERVICAL STENOSIS Procedures PRO LAMINECTOMY, >2 SGMT, CERVICAL LAMINECTOMY DECOMPRESSION > 2 SEGMENTS,CX Referral ID Status Reason Start Date Expiration Date Visits Requ ested Visits Authorized [id number] 1 1 Encounter Details Date Type Department Care Team Description 10/12/2016 - Hospital Encounter 3 Lucio Domingo Cervic al stenosis 10/15/2016 [place] Laney Mast MD of spinal canal Hospital [facility] [address] [place] [id number] [phone] Social History Tobacco Use Types Packs/Day Years [...] may be used if needed and are csua-csi-cwsavmt (OTC) medications available at most local pharmacies. [...] can reach neurosurgery by calling the hospital soldering machine operator automatic at and ask for the Neurosurgery resident on-call Neurology/Neurosugery (5W) and Neuro Special Care Unit (NSCU): CC: Aissatou Briggs APRN Future Appointments and Orders Future Orders Complete By Expires Referral to Home Health - at DISCHARGE [[id number] CPT(R)] As directed Process Instructions: Scheduling Instructions: Comments: DOCUMENTATION FOR VNA SERVICES PATIENT'S LOCATION: Miguel Pérez [address] [place] [address] [phone] (home) [phone] (cell) Sexual Assault Counsellor's Name: Self and Life Partner (Mery). In discussion with the attending physician, it is certified that this patient is under their care and that they, or a Nurse Practitioner,Clinical Nurse specialist or Physician Feather Washer who is working directly with them, had [...] for managing ADL's. HOME HEALTH CARE AGENCY: [facility]. PHONE: [phone] FAX: [phone] Start of care: 24 hours after discharge [...] from this patient'sPCP: Aissatou Briggs APRN [address] [facility] / [facility] [address] All A agencies which cover the area of patient's residence have been reviewed, either verbally or in writing, and patient/family have chosen the home health care agency noted Questions: Agency name and contact information: [facility] Care Agency Patient location post discharge: Own Home What services are requested: Registered Nurse Physical Therapy Occupational Therapy Home Health Aide Start date: Responsible MD post discharge contact info: PCP, Aissatou Briggs APRN Walker standard [[id number] Custom] As directed Process Instructions: Scheduling Instructions: Comments: Miguel Pérez [address] [facility] [phone] (home) [phone] (cell) Diagnosis: S/P Laminectomy Decompression C3-6 on 10/12/16, with Unsteady gait Patient???s: Hgt: 162.6 cm (5' 4) Wgt: 64 kg (141 lbs) VENDOR: [employer] Ordering: Front wheel walker Deliver to [facility] hospital room #: 307-A Questions: Vendor Name/Contact [...] may be used if needed and are usrl-sjp-amaytjy (OTC) medications available at most local pharmacies. Prunes or prune juice, taken daily, can also be helpful for constipation treatment or prevention and are available at most [employer]. Driving Restrictions*: - [X] No driving until [...] can reach neurosurgery by calling the hospital soldering machine operator automatic at and ask for the Neurosurgery resident [...] as of this encounter Progress Notes Mary Gutierrez RN - 10/15/2016 3:28 PM EST Pt [...] Macdonald RN - 10/15/2016 8:10 AM EST Planner Internship spoke with Eloise Trejo NP on the Neurosurgery team regarding status. Patient is MR for discharge today. Rehab service was recommended but patient wants to go home with VNA service for PT/OT. [facility] Heidi Macdonald RN CM Pager [phone] Dior Santos APRN - 10/15/2016 4:40 AM EST Neurosurgery [...] Macdonald RN - 10/14/2016 2:03 PM EST Planner Internship spoke with Eloise SHEETS from, Neurosurgery re: [...] Wednesday, 10/16 Heidi Macdonald RN CM Pager [phone] Miguel Lopez MD - 10/14/2016 12:47 PM EST General [...] a second time. Pt put on bedside psychiatric aide. Patient given nitro x 2 and asprin [...] neuro monitoring - brittnee-op ancef - ADAT Gonzalez [place] T - 10/12/2016 7:02 AM EST 24-HOUR UPDATE [...] laminectomy. Pt issued long handled shoe horn, news camera operator, and instructed to bring his ankle tohis [...] lbs, no twisting, L sided weakness King Hari Angelo 10/15/2016 Occupational Therapy Rehabilitation Department Goal: [...] Care Reviewed With -- patient (RN. 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 Pt [...] also reported increased numbness/tingling to left arm. FIRST ASSIST Danielle at bedside to assess. Pt continues [...] (Interventions Implemented as Appropriate) 10/14/16 0747 10/14/16 1726 Safety Interventions Isolation Precautions -- standard precautions [...] (none currently available) Constanza Mendenhall, PT Pager [phone] Goal: Discharge Needs Assessment Outcome: Ongoing (Interventions Implemented as Appropriate) 10/14/16 1541 Discharge Needs Assessment Discharge Facility/Level Of Care Needs nursing facility, skilled Discharge Disposition jail facility Current Health Outpatient/Agency/Support Group Needs jail facility (specify) Anticipated Changes Related to Illness [...] (pt has hosp bed)) Bed Mobility Goal, [place] Level conditional independence Bed Mobility Goal, Assistive Device bed rails Goal: Gait Training Goal Stand Alone Therapy Goal Outcome: Ongoing (Interventions Implemented as Appropriate) 10/14/16 1541 Gait Training Goal Gait Training Goal, Date Established 10/14/16 Gait Training Goal, Time to Achieve 5 - 7 days Gait Training Goal, [place] Level conditional independence Gait Training Goal, Assist Device walker, rolling platform Gait Training Goal, Distance to Achieve 100 Goal: Goal Transfer Training Stand Alone Therapy Goal Outcome: Ongoing (Interventions Implemented as Appropriate) 10/14/16 1541 Goal Transfer Training Transfer Training Goal, Date Established 10/14/16 Transfer Training Goal, Time to Achieve 5 - 7 days Transfer Training Goal, Activity Type qbq-zn-fdtbg/qkhtq-vv-gbl;alt-cc-szfzu/zhbfi-dw-vax Transfer Train Goal, [place] Level supervision required Transfer Training Goal, Assist Device walker, rolling platform Plan of Care - Alicia Juarez RN - 10/14/2016 5:49 AM EST Problem: Patient Care Overview Goal: Plan of Care Review Outcome: Ongoing (Interventions Implemented as Appropriate) 10/13/16202210/14/1619 Coping/Psychosocial Plan Of Care Reviewed With patient -- Plan of Care Review Progress -- no change OUTCOME EVALUATION NOTE: OUTCOME SUMMARY: Patient reported 7/10 chest pain and pressure along with some SOB at start of shift. He stated that these symptoms had been ongoing for several hours. Abdomen firm and tender to palpation. Pt in NAD and VSS. Neurosurgery FIRST ASSIST notified and at bedside to assess. Pt [...] Ongoing (Interventions Implemented as Appropriate) 10/13/16 1707 10/13/16202210/13/162108 Musculoskeletal Interventions Muscle Strengthening activity/mobility promoted;mobility in bed promoted -- -- Activity and Safety Assistive Device -- -- Cane Daily Care Interventions Self-Care Promotion -- independence encouraged -- Min Fall Risk History of Falling -- 25 [...] Shaver MD - 10/14/2016 1:04 AM EST [facility] Department of Surgery Inpatient Consult Note Consultation [...] Diagnosis Date ??? CAD (coronary artery disease), [place] coronary artery ??? Epilepsy ??? GERD (gastroesophageal [...] If you have any questions, please page [phone]. [X] Consult service to continue to follow [] Consult service to sign off Sera Daley MD 10/14/2016 General Surgery p.[phone] ADDENDUM: I have independently seen and evaluated [...] xray ordered. Dior Santos APRN Neurosurgery Pager [phone] Plan of Care - Alicia Mccarthy RN [...] care. Outcome: Ongoing (Interventions Implemented as Appropriate) 10/13/167 Skin Integrity Impairment, Risk/Actual (Adult) Skin Integrity/Wound Healing making progress toward outcome Problem: Patient Care Overview Goal: Plan of Care Review Outcome: Ongoing (Interventions Implemented as Appropriate) 10/13/16 170 Coping/Psychosocial Plan Of Care Reviewed With patient [...] Diagnosis Date ??? CAD (coronary artery disease), [place] coronary artery ??? Epilepsy ??? GERD (gastroesophageal reflux disease) ??? ST elevation myocardial infarction (STEMI) involving left circumflex coronary artery in recoveryphase ??? TBI (traumatic brain injury) No past surgical history on file. Hospitalizations Within the Past 30 Days: Discharged from [facility] on 09/19/16 for musculoskeletal chestpain. Anticipated Length [...] shirt. The nurse and physical therapists from [facility] comes twice a week. The aides come every day. Home Environment: Lives in [place], [place] with his Life Partner, Mery Gonzalez. Ramp to enter single level dwelling. Social & Family Supports/Community Resources: Emergency Contact 1 Emergency Contact 2 ? Dev Pérez (Child) [phone] (H) Mery Gonzalez (Life Partner) [phone] (H) Behavioral Health History: Pt reports that he has anxiety and depression and takes medication. Substance Use/Abuse: Former cigarette smoker, quit in 2007. No alcohol or illicit drug use. Other Pertinent/Service Specific Information: None Health/Prescription Coverage: Primary Insurance: MEDICARE PART A & B Secondary Insurance: None I am filing for intermission coordinator Medicaid. Prescription Coverage: No Preferred Pharmacy: [facility] - [facility], [place] - [address] ? [address] [place] [place] [address] ? Not a 24 hour pharmacy; exact hours not known Other: None Primary Care Provider: Aissatou Briggs, MEDICAL OFFICE SCHEDULER [phone] Patient/Caregiver Goals of Treatment: To return home to his Life Partner. Potential Needs for Transition of Care: Rehab/SNF: I went to one in [place] one time. I can't remember the name. 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 Needs a walker Dialysis: N/A Community Resources: None Transportation: Pt's adventism friend Shady to transport the pt home. Mery can't drive. She has one leg. We help each other. The helping the , (pt laughed). Other: None Anticipated Barriers to Discharge/Special Considerations: None noted at this time. REFERRAL: [facility] PHONE: [phone] FAX: [phone] REFERRAL: [facility] Located @ [place], [place] Plan: A member of the Care Management team will continue to monitor progress, follow for continuity of care and assist with transition of care planning. ELMER BRADEN RN Pager: [phone] for today Plan of Care - Diaz [...] Ongoing (Interventions Implemented as Appropriate) 10/12/16 1100 10/12/16199910/13/16 0200 [place] Fall Risk History of Falling -- [...] Ongoing (Interventions Implemented as Appropriate) 10/12/16 173 Discharge Needs Assessment Concerns To Be Addressed [...] Bullard MD - 10/12/2016 9:52 AM EST [facility] Operative Note Patient Name: Miguel Pérez : [id number] MR#: [id number] Case Date: 10/12/2016 Surgeon: Surgeon(s) and Role: [...] Radiology Aissatou Briggs Canc eled (D-SCHED ERROR MEDICAL OFFICE SCHEDULER / CORRECTION ) [address] [place] [address] (Wo rk) documented as of this encounter Procedures Procedure Name Priority Date/Time Associated Comments Diagnosis AUTO BODY REPAIRER SCAN 10/16/2016 12:00 AM EST XR CHEST [...] 10/13/2016 9:46 AM Result s for this ([facility]) EST procedure are i n the results section. XR FLUORO NO RAD <1HR Routine 10/12/2016 9:46 AM Results for this - OR USE EST procedure are i n the results section. LAMINECTOMY 10/12/2016 7:31 AM CERVICAL STENOSIS DECOMPRESSION > 2 EST SEGMENTS,CX (WRVU 20.85) documented in this encounter Results SCAN DOC: AUTO BODY REPAIRER (10/16/2016 12:00 AM EST) Narrative This result [...] Signature Sodium 134 (L) 135 - 145 [facility] mmol/L [facility] Potassium 4.3 3.5 - 5.0 [facility] mmol/L [facility] Comment: Please note: ??Patients with WBC >100,00 0 may have falsely elevated Potassium levels. ??For accurate Potassium quantif ication in these patients send serum separator tube (gold top) for subsequent determinations. ??Contact the Clinical Chemistry Laboratory if there are any qu estions. Chloride 98 98 - 107 mmol/L [facility] CO2 23 22 - 31 mmol/L [facility] Anion Gap 13 5 - 15 mmol/L [facility] Specimen Anatomical Collection Method Collection Time Receive d Time (Source) Location / / Volume Laterality Blood specimen 10/14/2016 11:56 6 (specimen) AM EST 12:10 PM EST Resulting Agency Comment Spec In Lab Lucio Bullard MD CHEMISTRY ORDERABLES Performing Organization Address City/State/[place] [address] Abdomen & Pelvis [...] causes of distal colonic obstruction are seen. [place] syndrome may also be c onsidered. Of [...] enema. 3. Cholelithiasis without evidence of ac luis m cholecystitis. 4. Trace bilateral pleural effusions. Lucio [...] 421 ms MUSE SYSTEM (Bezet) Calculated P [place] 61 degrees MUSE SYSTEM Calculated R [place] 23 degrees MUSE SYSTEM Calculated T [place] -86 degrees MUSE SYSTEM INTERPRETATION Normal sinus rhythm MUSE SYSTEM Inferior infarct (cited on or before 18-SEP-2016) Nonspecific ST and T wave abnormality Lateral leads Nonspecific T wave abnormality Inferior leads Abnormal ECG When compared with ECG of 19-SEP-2016 08:06, QT has shortened I personally reviewed the tracing and edited the fellows int erpretation Confirmed by fellow MD Luís, Mery ([id number]) on 6 11:09:14 AM Confirmed by MD Suárez Gregory A. ([id number]) on 10/13/2016 5:29:17 PM Specimen Anatomical Collection Method Collection Time Receive d Time (Source) Location / / Volume Laterality 10/13/2016 10:08 10/13/2016 5:29 AM EST PM EST Lucio Bullard MD ECG ORDERABLES Performing Organization Address City/State/ZIP Code Phon e Number MUSE SYSTEM (ABNORMAL) Cardiac Enzymes (10/13/2016 9:46 AM EST) P athologist Signature Troponin-T <0.03 <=0.03 [facility] ng/mL [facility] Comment: 0.03 ng/mL: Represents the 99th [...] consensus document of the Joint Society of Cardiology/[place] College o f [employer] Committee for the redefinition of myocardial infarction. ? ?Journal of the [place] College of Cardiology 2000; 36: 959-969] CK, Total 742 (H) 0 - 200 unit/L [facility] Specimen Anatomical Collection Method Collection Time Receive d Time (Source) Location / / Volume Laterality Blood specimen 10/13/2016 9:46 AM 016 9:58 (specimen) EST AM EST Resulting Agency Comment Spec In Lab Lucio Bullard MD CHEMISTRY ORDERABLES Performing Organization Address City/[facility]/[place] [address] XR Fluoro No Rad <1Hr - OR Use (10/12/2016 9:46 AM EST) Specimen (Source) Anatomical Location Collection Method / Collectio n Time Received Time / Laterality Volume Narrative [facility] - 10/12/2016 9:46 AM EST This order does not need a radiologist i nterpretation. ?? Lucio Bullard MD IMG FLUORO ORDERABLES Performing Organization Address City/[facility]/ZIP Code Phon e Number [facility] [place], [place] documented in this encounter Visit Diagnoses Diagnosis Cervical spondylosis - Primary Cervical spondylosis without myelopathy Cervical stenosis of spinal canal Spinal stenosis in cervical region Unstable angina Intermediate coronary syndrome ST elevation myocardial infarction (STEM I) of inferolateral wall, subsequent episode of care Acute myocardial infarction of inferolat eral wall, subsequent episode of care CAD (coronary artery disease) Coronary atherosclerosis of unspecified type of vessel, [place] or graft Postoperative ileus Other digestive system complications documented in this encounter Administered Medications Inactive Administered Medications - up to 3 most recent administrations Medication Order MAR Action Action Date Dose Rate Site acetaminophen (TYLENOL) suppository 650 mg 650 mg, Rectal, EVERY 4 HOURS PRN, Starting on 10/16 at 1125, Until Madhuri 10/15/16 at 1728, Pain, mild pain, May r epeat once in 30 minutes if desired effect not achieved. Do not exceed 4000 mg acetaminophen per day., Routine acetaminophen (TYLENOL) tablet 1,000 mg Given 10/12/2016 7:26 AM EST 1,000 mg 1,000 mg, Oral, ONCE, 1 dose, On Wed10/12/16 at 0745, Administer with SIP of H2O only., Day of Surgery (Day of Procedure), Routine acetaminophen (TYLENOL) tablet 650 mg Given 10/15/2016 12:05 PM EST 650 mg 650 mg, Oral, EVERY 4 HOURS PRN, Starting on Wed10/12/16 at 1125, [...] Given 10/14/2016 8:29 AM EST 81 mg aspirin tablet 325 mg Given 10/13/2016 10:03 AM EST 325 mg 325 mg, Oral, DAILY, First dose (after last modification) on Wed10/13/16 at 1000, Until Discontinued, STAT atorvastatin (LIPITOR) tablet 80 mg Given 10/14/2016 5:22 PM EST 80 mg 80 mg, Oral, EVERY EVENING, First dose on 12/12/16 at 1700, Until Discontinued, Routine Given 10/13/2016 4:43 PM EST 80 mg Given 10/12/2016 5:17 PM EST 80 mg bisacodyl (DULCOLAX) suppository 10 mg 10 mg, Rectal, DAILY PRN, Starting on 10/14/16 at 0807, Until Madhuri 10/15/16 at 1728, Constipation, Routine ceFAZolin (ANCEF) 1g in dextrose 5% Given 10/13/2016 4:00 AM EST 1,000 mg 100 mL/hr 50mL 1,000 mg (1 g), Intravenous, EVERY 8 HOURS, 3 doses, First dose on Wed10/12/16 at 1100, Last dose on Wed10/13/16 at 0300, Administer over 30 Minutes, Recovery (Recovery-Hospital Unit), Indication for (Active or Suspected): Prophylaxis Given 10/13/2016 12:00 AM EST 1,000 mg 100 mL/hr Given 10/12/2016 4:15 PM EST 1,000 mg 100 mL/hr citalopram (CeleXA) tablet 40 mg Given 10/15/2016 8:48 AM EST 40 mg 40 mg, Oral, DAILY, First dose on Wed10/12/16 at 1230, Until Discontinued, Routine Given 10/14/2016 8:28 AM EST 40 mg Given 10/13/2016 9:27 AM EST 40 mg cyclobenzaprine (FLEXERIL) tablet 10 mg Given 10/15/2016 8:49 AM EST 10 mg 10 mg, Oral, 3 TIMES DAILY, First dose on Wed10/13/16 at 0915, Until Discontinued, Routine Given 10/14/2016 8:37 PM EST 10 mg Given 10/14/2016 3:14 PM EST 10 mg cyclobenzaprine (FLEXERIL) tablet 10 mg 10 mg, Oral, 3 TIMES DAILY PRN, Starting on Madhuri at 1500, Until Madhuri 10/15/16 at 1728, Muscle spasms, Routine diaZEPam (VALIUM) tablet 5 mg Given 10/12/2016 5:16 PM EST 5 mg 5 mg, Oral, EVERY 6 HOURS PRN, Starting on Wed10/12/16 at 1705, Until Wed10/13/16 at 0859, spasms, Routine famotidine (PEPCID) injection 20 mg [...] mg gabapentin (NEURONTIN) capsule 600 mg Given 10/12/2016 12:37 PM EST 600 mg 600 mg, Oral, 2 TIMES DAILY, First dose on Wed10/12/16 at 1230, Until Discontinued, Routine gabapentin (NEURONTIN) capsule 600 mg Given 10/14/2016 8:37 PM EST 600 mg 600 mg, Oral, NIGHTLY, First dose on Wed10/12/16 at 2100, Until Discontinued, Routine Given 10/13/2016 8:23 PM EST 600 mg Given 10/12/2016 8:32 PM EST 600 mg guaiFENesin (ROBITUSSIN) 20 mg/mL liquid 10 Given 10/01 12:07 PM EST 10 mLs mL 10 mL (200 mg), Oral, EVERY 4 HOURS PRN, Starting on Wed10/14/16 at 2117, Until Wed10/15/16 at 1728, Cough, Maximum daily dose is 2400 mg, Routine Given 10/15/2016 6:52 AM EST 10 mLs Given 10/14/2016 9:50 PM EST 10 mLs HYDROmorphone (DILAUDID) syringe 0.2-0.4 mg Given 10/12/2016 10:09 AM EST 0.4 mg 0.2-0.4 mg, Intravenous, EVERY 5 MIN PRN, Pain, Starting on Wed10/12/16 at 0904, Until Wed10/12/16 at 1104, For moderate pain (4-6) give: 0.2 mg every 5 minute prn For severe pain (7-10) give: 0.4 mg every 5 minutes prn Maximum dose: 4 mg per hour Hold for respiratory rate less than 10 per minute., PACU Recovery Given 10/12/2016 10:00 AM EST 0.4 mg Given 10/12/2016 9:53 AM EST 0.4 mg hydrOXYzine (ATARAX) tablet 25 mg Given 10/14/2016 3:41 AM EST 25 mg 25 mg, Oral, 4 TIMES DAILY PRN, Starting on 10/12/16 at 1230, Until Madhuri 10/15/16 at 1728, Anxiety, Routine Given 10/12/2016 4:11 PM EST 25 mg iohexol (OMNIPAQUE) 350 mg/mL solution Given 10/14/2016 8:51 AM EST 38,500 mg 38,500 mg 38,500 mg (110 mL), Intravenous, ONCE PRN, 1 dose, Starting on Wed10/14/16 at 0850, Until Wed10/14/16 at 0851, Per Protocol, Warning Vesicant/Irritant Medication , Routine iohexol (OMNIPAQUE) radiology oral prep (50 Given 10/01 6:30 AM EST 240 mLs mL of oral contrast) 240 mL, Oral, ONCE, 1 dose, On Wed10/14/16 at 0630, 8 ounce cup = 240 mL of contrast 3 hours before scan as tolerated. The patient should not eat food or drink any other liquids during the entire period in which they are drinking the contrast. Mix 1 bottle (50 mL) of Omnipaque 350 with 1 liter (1,000 mL) non-carbonated beverage (preferably water). Close cover and shake vigorously and then refrigerate, if desired. Dispose of any excess preparation in a sink. Properly dispose of container., Routine iohexol (OMNIPAQUE) radiology oral prep (50 Given 10/01 7:30 AM EST 240 mLs mL of oral contrast) 240 mL, Oral, ONCE, 1 dose, On Wed10/14/16 at 0730, 8 ounce cup = 240 mL of contrast 2 hours before scan as tolerated. The patient should not eat food or drink any other liquids during the entire period in which they are drinking the contrast. Mix 1 bottle (50 mL) of Omnipaque 350 with 1 liter (1,000 mL) non-carbonated beverage (preferably water). Close cover and shake vigorously and then refrigerate, if desired. Dispose of any excess preparation in a sink. Properly dispose of container., Routine iohexol (OMNIPAQUE) radiology oral prep (50 Given 10/01 8:30 AM EST 240 mLs mL of oral contrast) 240 mL, Oral, ONCE, 1 dose, On Wed10/14/16 at 0830, 8 ounce cup = 240 mL of contrast 1 hours before scan as tolerated. The patient should not eat food or drink any other liquids during the entire period in which they are drinking the contrast. Mix 1 bottle (50 mL) of Omnipaque 350 with 1 liter (1,000 mL) non-carbonated beverage (preferably water). Close cover and shake vigorously and then refrigerate, if desired. Dispose of any excess preparation in a sink. Properly dispose of container., Routine iohexol (OMNIPAQUE) radiology oral prep (50 Given 10/01 9:00 AM EST 240 mLs mL of oral contrast) 240 mL, Oral, ONCE, 1 dose, On Wed10/14/16 at 0900, 8 ounce cup = 240 mL of contrast 20 minutes before scan as tolerated. The patient should not eat food or drink any other liquids during the entire period in which they are drinking the contrast. Mix 1 bottle (50 mL) of Omnipaque 350 with 1 liter (1,000 mL) non-carbonated beverage (preferably water). Close cover and shake vigorously and then refrigerate, if desired. Dispose of any excess preparation in a sink. Properly dispose of container., Routine lactated ringers infusion 1,000 New Bag 10/12/2016 7:26 AM EST 1,000 mLs 100 mL/hr mL 1,000 mL, at 100 mL/hr, Intravenous, CONTINUOUS, Starting on Wed10/12/16 at 0745, Until Wed10/12/16 at 1104, Day of Surgery (Day of Procedure) lamoTRIgine (LaMICtal) tablet 100 mg Given 10/15/2016 8:48 AM EST 100 mg 100 mg, Oral, DAILY, First dose (after last modification) on Wed10/13/16 at 0900, Until Discontinued, Routine Given 10/14/2016 8:28 AM EST 100 mg Given 10/13/2016 9:28 AM EST 100 mg lidocaine (XYLOCAINE) 10 mg/mL (1 %) injection Given 1 12/13/2015 7:26 AM EST 3 mg 3 mg 3 mg (0.3 mL), Subcutaneous, ONCE PRN, 1 dose, Starting on Wed10/12/16 at 0715, Until Wed10/12/16 at 0726, for discomfort with PIV insertion, Day of Surgery (Day of Procedure), Routine lisinopril (PRINIVIL;ZESTRIL) tablet 5 m g Given [...] Given 10/12/2016 8:33 PM EST 1 puff morphine 10 mg/mL carpuject 5 mg Given 10/13/2016 10:02 AM EST 5 mg 5 mg, Intravenous, EVERY 1 HOUR PRN, Starting on Wed10/13/16 at 0943, Until Madhuri 10/15/16 at 1019, chest pain, Routine nitroGLYcerin (NITROSTAT) 0.4 mg SL tabl et 1 dose, Starting on Wed10/13/16 at 0947, Until Wed at 0949, ALICIA MCCARTHY: cabinet override nitroGLYcerin (NITROSTAT) SL tablet 0.4 mg Given 10/13/2016 9:57 AM EST 0.4 mg 0.4 mg, Sublingual, EVERY 5 MIN PRN, Chest pain, Starting on Wed10/13/16 at 0941, Until Madhuri 10/15/16 at [...] Given 10/12/2016 5:17 PM EST 200 mg promethazine (PHENERGAN) injection 6.25 mg Given 10/12/2016 9:59 AM EST 6.25 mg 6.25 mg, Intravenous, EVERY 30 MIN PRN, 4 doses, Starting on Wed10/12/16 at 0904, Until Wed10/12/16 at 1104, Nausea, If multiple antiemetics ordered, use ondansetron first and if ineffective use prochlorperazine second and if ineffective use promethazine, PACU Recovery, Routine sodium chloride 0.9 % flush 5 mL Given 10/13/2016 9:00 AM EST 5 mLs 5 mL, Intravenous, 2 TIMES DAILY, First dose on Wed10/12/16 at 1145, Until Discontinued, Recovery (Recovery-Hospital Unit), Routine Given 10/12/2016 8:32 PM EST 5 mLs Given 10/12/2016 1:21 PM EST 5 mLs sodium chloride 0.9% with New Bag 10/12/2016 10:36 AM EST 75 mL/hr 75 mL/hr potassium chloride 20 mEq infusion 75 mL/hr, Intravenous, CONTINUOUS, Starting on Wed10/12/16 at 1100, Until Wed10/12/16 at 1659, Warning Vesicant/Irritant Medication , Recovery (Recovery-Hospital Unit) traZODone (DESYREL) tablet 200 mg 200 mg, [...] 0848 (Given - Provider: Mary Gutierrez, TRES) 40 mg, Oral, DAILY, First dose on Wed at 1230, Until Discontinued, Routine cyclobenzaprine (FLEXERIL) tablet 10 mg (CANCELED) 100 2 (Given - Provider: Kim Dong RN)1520 (Given - Provider: Alicia Mccarthy, TRES)202 (Given - Provider: Alicia Juarez, TRES) 0829 (Given - Provider: Alicia Mccarthy RN)1514 (Given - Provider: Alicia Mccarthy, TRES)203 (Given - Provider: Alicia Juarez, TRES) 0849 (Given - Provider: Mary dietz RN) 10 mg, Oral, 3 TIMES DAILY, First dose o n Wed10/13/16 at 0915, Until Discontinued, Routine famotidine (PEPCID) injection 20 mg(Linked Group 1) 00 31 (See Alternative - Provider: Diaz Berkowitz RN)1255 (See Alternative - Provider: Alicia Mccarthy RN) 0056 (See Alternative - Provider: Alicia Juarez RN)1231 (See Alternative - Provider: Alicia Mccarthy RN)2331 [...] Juarez RN) 1205 (Given - Provider: Mary Gutierrez, TRES) 20 mg, Oral, EVERY 12 HOURS, First dose on Wed10/12/16 at 1200, Until Discontinued, Routine gabapentin (NEURONTIN) capsule 300 mg(Linked Group 2) 0932 (Given - Provider: Kim Dong RN)1520 (Given - Provider: Alicia Mccarthy RN) 0829 (Given - Provider: Alicia Mccarthy RN)1514 (Given - Provider: Alicia Mccarthy RN) 0848 (Given - Provider: Mary Gutierrez, TRES)1508 (Given - Provider: Mary Gutierrez RN) 300 mg, Oral, 2 TIMES DAILY, First dose on Wed10/13/16 at 0900, Until Discontinued, Routine gabapentin (NEURONTIN) capsule 600 mg(Linked Group 2) 2022 (Given - Provider: Alicia Juarez RN) 2036 (Given - Provider: Alciia Juarez RN) 600 mg, Oral, NIGHTLY, First dose on 12/12/16 at 2100, Until Discontinued, Routine iohexol (OMNIPAQUE) radiology oral prep (50 mL of oral contr ast) (COMPLETED) 629 (Given - Provider: Alicia Juarez RN - [...] (50 mL of oral contr ast) (COMPLETED) 729 (Given - Provider: Alicia Juarez RN) 240 [...] (50 mL of oral contr ast) (COMPLETED) 829 (Given - Provider: Alicia Mccarthy RN) 240 [...] (50 mL of oral contr ast) (COMPLETED) 0900 (Given - Provider: Alicia Mccarthy RN) 240 [...] container., Routine lamoTRIgine (LaMICtal) tablet 100 mg 09 (Given - Provider: Kim Dong RN) 0828 (Given - Provider: Alicia Mccarthy RN) 0848 (Given - Provider: Mary Gutierrez RN) 100 mg, Oral, DAILY, First dose on Wed12/14/15 at 0900, Until Discontinued, Routine lisinopril (PRINIVIL;ZESTRIL) tablet 5 mg 927 (Given - Provider: Kim Dong RN) 0831 (Given - Provider: Alicia Mccarthy, TRES) 0850 (Giv en - Provider: Mary Gutierrez RN - Comment: BP: 109/68) 5 mg, Oral, DAILY, First dose on 10/16 at 1230, Until Discontinued, Routine mometasone (ASMANEX) aerosol 1 puff 2023 (Given - Prov ider: Alicia Juarez, TRES) 2037 (Given - Provider: Alicia Juarez, TRES) 1 puff (220 mcg), Inhalation, NIGHTLY, F [...] up 3) 1643 (Given - Provider: Alicia Mccarthy, TRES) 172 (Given - Provider: Alicia Mccarthy, RN) 200 mg, Oral, EVERY EVENING, First dose on Wed10/12/16 at 1700, Until Discontinued, Routine sodium chloride 0.9 % flush 5 mL (CANCELED) 0900 (Give n - Provider: Kim Dong, TRES) 5 mL, Intravenous, 2 TIMES DAILY, First [...] DAILY PRN, Starting Wed12/15/15 at 0807, Until Wed10/15/16 at 1728, Constipation, Routine cyclobenzaprine (FLEXERIL) tablet 10 mg 10 mg, Oral, 3 TIMES DAILY PRN, Starting Wed10/15/16 at 1500, Until Wed10/15/16 at 1728, Muscle spasms, Routine guaiFENesin (ROBITUSSIN) 20 mg/mL liquid 10 mL 2150 (Given - Provider: Alicia Juarez, TRES) 0652 (Given - Provider: Alicia dahl, RN)1207 (Given - Provider: Mary Gutierrez RN) 10 mL (200 mg), Oral, EVERY 4 HOURS PRN, Starting Wed10/14/16 at 2117, Until Wed10/15/16 at 1728, Cough, Maximum daily dose is 2400 mg, Routine hydrALAZINE (APRESOLINE) injection 10 mg 10 mg, Intravenous, EVERY 2 HOURS PRN, S tarting Wed10/12/16 at 1125, Until Wed10/15/16 at 1728, High Blood Pressure, For SBP greater than 160 mmHg. May repeat once in 15 minutes if blood pressure cathi ins greater than 160 mmHg.Use if labetolo ineffective after 2 do ses., Routine hydrOXYzine (ATARAX) tablet 25 mg 0341 ( Given - Provider: Bibi Rebollar RN) 25 mg, Oral, 4 TIMES DAILY PRN, Starting Wed10/12/16 at 1230, Until Wed10/15/16 at 1728, Anxiety, Routine iohexol (OMNIPAQUE) 350 mg/mL solution 38,500 mg (COMPLETED) 0851 (Given - Provider: Dia Caballero) 38,500 mg (110 mL), Intravenous, ONCE MT N, 1 dose, Starting Wed10/14/16 at 0850, Until Wed10/14/16 at 0851, Per Protocol, Warning Vesicant/Irritant Medication , Routine labetalol (NORMODYNE,TRANDATE) injection 20 mg 20 mg, Intravenous, EVERY 2 HOURS PRN, S tarting 10/12/16 at 1125, Until Madhuri 10/15/16 at 1728, High Blood Pressure, For SBP greater than 160 mmHg. May repeat once in 15 minutes if blood pressure remains greater than 160 mmHg., Routine LORazepam (ATIVAN) injection 1 mg 1 mg, Intravenous, EVERY 4 HOURS PRN, 3 doses, Starting 10/14/16 at 2116, Until Madhuri 10/15/16 at 1728, Anxiety, Routine morphine 10 mg/mL carpuject 5 mg (CANCELED) 1002 (Give n - Provider: Kim Dong, RN) 5 mg, Intravenous, EVERY 1 HOUR PRN, Sta rting Wed10/13/16 at 0943, Until Madhuri 10/15/16 at 1019, chest pain, Routine nitroGLYcerin (NITROSTAT) SL tablet 0.4 mg 0949 (Given - Provider: Alicia Mccarthy, TRES)0957 (Given - Provider: Alicia Mccarthy, TRES) 0.4 mg, Sublingual, EVERY 5 MIN PRN, Sta rting Wed10/13/16 at 0941, Until Madhuri 10/15/16 at 1728, Chest pain, SL nitroglycerin may be repeated every 5 minutes as needed up to 3 doses, STAT ondansetron (ZOFRAN) injection 4 mg(Linked Group 5) 19 (Given - Provider: Alicia Juarez, TRES) 4 mg, Intravenous, EVERY 8 HOURS PRN, St arting 10/12/16 at 1125, Until Madhuri 10/15/16 at 1728, Nausea, Vomiting, May repeat times one in 30 minutes if ineffective. If multiple antiemetics are ordere d, use ondansetron first, prochlorperazine second, and metoc lopramide third. ondansetron (ZOFRAN-ODT) oral disintegrating tablet 4 mg(Linked Group 5) 1945 (See Alternative - Provider: Alicia Juarez, TRES) 4 mg, Oral, EVERY 8 HOURS PRN, Starting 10/12/16 at 1125, Until Madhuri 10/15/16 at 1728, Nausea, May repeat in 30 minutes if ineffective. If multiple antiemetics are ordered, use ondansetron first, prochlorperazine second, and metaclopramide third., Routine oxyCODONE (ROXICODONE) immediate release tablet 10 mg( Linked Group 6) 003 (Given - Provider: Diaz Berkowitz RN)0413 (Given - Provider: Diaz Berkowitz RN) 0829 [...] release tablet 5 mg(L inked Group 6) 003 (See Alternative - Provider: Diaz Berkowitz RN)412 (See Alternative - Provider: Diaz Berkowitz RN) 0829 (Given - Provider: Alicia Mccarthy RN)123 (See Alternative - Provider: Alicia Mccarthy RN)2036 (See Alternative - Provider: Alicia Juarez, TRES) 1007 (See Alternative - Provider: Cyndi Gutierrez, TRES)1435 (See Alternative - Provider: Mary Gutierrez RN) 5 mg, Oral, EVERY 4 HOURS PRN, Starting 10/12/16 at 1041, Until Madhuri 12 at 1728, Pain, mild to moderate pain (1-6), May give an additional 5 mg in 30 minutes once if pain not relieved., Routine traZODone (DESYREL) tablet 200 mg 200 mg, Oral, NIGHTLY PRN, Starting 10/12/16 at 1221, Until Madhuri 1216 at 1728, Sleep, Routine Linked Groups Order [...] PRN, Start ing Wed10/12/16 at 1125, Until Wed10/15/16 at 1728, Pain, mild pain
May repeat [...]
Routine documented in this encounter Care Teams Certified Nurse Relationship Specialty Start Date End Date Aissatou Briggs APRN PCP - General Internal Medicine 07/29/[address] [place] [address] documented as of this encounter
--- OUTSIDE RECORDS SUMMARY | 2022-08-15 01:34 | XMS_ITS | Encounter Summary ---
:1955 Author Organization [facility] [address] Care Team Providers Name Role Phone Aissatou Briggs APRN Primary Care Provider Reason for Visit Reason Onset Date Comments Medication Refill 10/12/2016 Encounter Details Date Type Department Care Team Description 10/12/2016 Telephone Neurology at [facility] Gustavo Hayes, Medication Refill [facility] [place] [address] [facility] [phone] NEUROLOGY DEPT. [place], [place] [address] (Wo rk) Social History Tobacco Use Types Packs/Day Years Used Date Former Smoker Cigarettes Quit: 05/14/20 08 Smokeless Tobacco: Never Used Alcohol Use Standard Drinks/Week Comments No 0 (1 standard drink = 0.6 oz pure alcoho l) Sex Assigned at Date Recorded Not on file documented as of this encounter Miscellaneous Notes Telephone Encounter - Shady Ramírez RN - 10/15/2016 8:59 AM EST Gustavo Hayes MD sent to Shady Ramírez RN ? Caller: Unspecified (3 days ago, ??4:42 PM) ? Cannot do this. ?? Patient is inpatient. Telephone Encounter - Diana Cobb - 10/12/2016 4:42 PM EST Patient called in to report that he cannot drive anymore so he needs his medications filled at a newpharmacy- [facility] He is currently here in the hospital for a surgery Caller: pt If not pt relation to pt: Contact Phone #: room [id number] (phone [phone]) Name of Med: hydrocodone Strength of Pills: 5mg tablet Dosing Directions: take 1 tablet in the am and 1 tablet in the PM 30 or 90 Day: 30 Pharmacy: [facility] Last Appointment: 05/19/16 Next Appointment: none Is Patient out of Medication?: yes documented in this encounter Plan of Treatment Upcoming Encounters Date Type Specialty Care Team Description 09/04/2022 Ancillary Procedure Radiology Aissatou Briggs Canc eled (D-SCHED ERROR MOTEL OPERATOR / CORRECTION ) [address] [place] [address] (Wo rk) documented as of this encounter Visit Diagnoses Not on filedocumented in this encounter Care Teams Dynamic Balancer Relationship Specialty Start Date End Date Aissatou Briggs, SANTOS PCP - General Internal Medicine 07/29/[address] [place] [address] documented as of this encounter
--- OUTSIDE RECORDS SUMMARY | 2022-08-15 01:34 | XMS_ITS | Encounter Summary ---
:1955 [place] [address] Care Team Providers Name Role Phone Janet Briggsyce Marielle GRAHAM Primary Care Provider Encounter Details Date Type Department Care Team Description 07/15/2017 [facility] [place] [address] Social History Tobacco Use Types Packs/Day Years Used Date Former Smoker Cigarettes Quit: 05/14/20 08 Smokeless Tobacco: Never Used Alcohol Use Standard Drinks/Week Comments No 0 (1 standard drink = 0.6 oz pure alcoho l) Sex Assigned at Date Recorded Not on file documented as of this encounter Patient Instructions Patient InstructionsBrooke Perkins - 07/15/2017 9:00 AM EDT [facility] Chronic Pain: Care Instructions Your Care Instructions Chronic pain is pain that lasts a long time (months or even years) and may or may not have a clear cause. It is different from acute pain, which usually does have a clear cause--like an injury or illness--and gets better over time. Chronic pain: ?? Lasts over time but may vary from day to day. ?? Does not go away despite efforts to end it. ?? May disrupt your sleep and lead to fatigue. ?? May cause depression or anxiety. ?? May make your muscles tense, causing more pain. ?? Can disrupt your work, hobbies, home life, and relationships with friends and family. Chronic pain is a very real condition. It is not just in your head. Treatment can help and usually includes several methods used together, such as medicines, physical therapy, exercise, and other treatments. Learning how to relax and changing negative thought patterns can also help you cope. Chronic pain is complex. Taking an active role in your treatment will help you better manage your pain. Tell your doctor if you have trouble dealing with your pain. You may have to try several things before you find what works best for you. Follow-up care is a mcclelland part of your treatment and safety. Be sure to make and go to all appointments, and call your doctor if you are having problems. It???s also a good idea to know your test resultsand keep a list of the medicines you take. How can you care for yourself at home? ?? Pace yourself. Break up large jobs into smaller tasks. Save harder tasks for days when you have less pain, or go back and forth between hard tasks and easier ones. Take rest breaks. ?? Relax, and reduce stress. Relaxation techniques such as deep breathing or meditation can help. ?? Keep moving. Gentle, daily exercise can help reduce pain over the long run. Try low- or no-impactexercises such as walking, swimming, and stationary biking. Do stretches to stay flexible. ?? Try heat, cold packs, and massage. ?? Get enough sleep. Chronic pain can make you tired and drain your energy. Talk with your doctor ifyou have trouble sleeping because of pain. ?? Think positive. Your thoughts can affect your pain level. Do things that you enjoy to distract yourself when you have pain instead of focusing on the pain. See a movie, read a book, listen to music,or spend time with a friend. ?? If you think you are depressed, talk to your doctor about treatment. ?? Keep a daily pain diary. Record how your moods, thoughts, sleep patterns, activities, and medicine affect your pain. You may find that your pain is worse during or after certain activities or when you are feeling a certain emotion. Having a record of your pain can help you and your doctor find the best ways to treat your pain. ?? Take pain medicines exactly as directed. ?? If the doctor gave you a prescription medicine for pain, take it as prescribed. ?? If you are not taking a prescription pain medicine, ask your doctor if you can take an fjvy-jux-jnzhkee medicine. Reducing constipation caused by pain medicine ?? Include fruits, vegetables, beans, and whole grains in your diet each day. These foods are high in fiber. ?? Drink plenty of fluids, enough so that your urine is light yellow or clear like water. If you have kidney, heart, or liver disease and have to limit fluids, talk with your doctor before you increasethe amount of fluids you drink. ?? If your doctor recommends it, get more exercise. Walking is a good choice. Bit by bit, increase the amount you walk every day. Try for at least 30 minutes on most days of the week. ?? Schedule time each day for a bowel movement. A daily routine may help. Take your time and do not strain when having a bowel movement. When should you call for help? Call your doctor now or seek immediate medical care if: ?? Your pain gets worse or is out of control. ?? You feel down or blue, or you do not enjoy things like you once did. You may be depressed, which is common in people with chronic pain. Depression can be treated. ?? You have vomiting or cramps for more than 2 hours. Watch closely for changes in your health, and be sure to contact your doctor if: ?? You cannot sleep because of pain. ?? You are very worried or anxious about your pain. ?? You have trouble taking your pain medicine. ?? You have any concerns about your pain medicine. ?? You have trouble with bowel movements, such as: ?? No bowel movement in 3 days. ?? Blood in the anal area, in your stool, or on the toilet paper. ?? Diarrhea for more than 24 hours. Where can you learn more? Visit our health information library at http://[employer]info. You can also view health information on [employer], your personal patient account. Log in or sign up today. Enter N004 in the search box to learn more about Chronic Pain: Care Instructions. Current as of: August 14, 2016 Content Version: 11.3 ?? 8257-0650 [employer]. Care instructions adapted under license by [facility]. If you have questions about a medical condition or this instruction, always ask your healthcare professional. [employer] disclaims any warranty or liability for your use of this information. documented in this encounter Plan of Treatment Upcoming Encounters Date Type Specialty Care Team Description 09/04/2022 Ancillary Procedure Radiology Aissatou Briggs, Berto velázquez (D-SCHED ERROR ELECTROTYPER / CORRECTION ) [address] [place] [address] (Wo rk) documented as of this encounter Visit Diagnoses Not on filedocumented in this encounter Care Teams Group Leader Wafer Polishing Relationship Specialty Start Date End Date Aissatou Briggs, SANTOS PCP - General Internal Medicine 07/29/[address] [place] [address] documented as of this encounter
--- OUTSIDE RECORDS SUMMARY | 2022-08-15 01:34 | XMS_ITS | Encounter Summary ---
:1955 Author Organization [facility] [place] [address] Care Team Providers Name Role Phone Aissatou Briggs APRN Primary Care Provider Reason for Visit Reason Comments Skin Lesion Encounter Details Date Type Department Care Team Description 07/25/2018 Office Visit Dermatology at [facility] Paula Carcamo, Pruritus [address] [place] [address] [facility] [phone] [place] [facility] [place], [place] [address] (Wo rk) Social History Tobacco Use Types Packs/Day Years Used Date Former Smoker Cigarettes Quit: 05/14/20 08 Smokeless Tobacco: Never Used Alcohol Use Standard Drinks/Week Comments No 0 (1 standard drink = 0.6 oz pure alcoho l) Sex Assigned at Date Recorded Not on file documented as of this encounter Patient Instructions Patient InstructionsLindsey Bruce LPN - 07/25/2018 10:15 AM EDT ASSESSMENT/PLAN Healing Erosions, trunk and arms I discussed this condition with the patient and explored therapeutic options. Pruritis Likely secondary to Opiates. I discussed that his itching is likely due to his fentanyl, though he seems to be healing up well and his itching has decreased. Recommendations: - Start Rx: Triamcinolone Cream - apply to the itchy areas on the arms and trunk BID (sent to [facility] in [facility]) - continue bandaging, ok to use TAC on the lesion on the right leg documented in this encounter Progress Notes Paula Carcamo MD - 07/25/2018 10:15 AM EDT DERMATOLOGY OUTPATIENT CLINIC NOTE Date of service: 07/25/2018 Miguel Pérez : 1955 Provider: Paula Carcamo MD PROBLEM: skin rash SKIN HISTORY: HPI Miguel Pérez is a 63 y.o. male. He is a new pt to me and the clinic for a rash on arms, trunk andright lower leg. He was on hormone pills. His PCP wanted the areas to be dry. He states he itches a lot some times worse than others. He notes that the lesion on the right lower leg is the worst but has been healing up pretty well, he has not changed the bandage in the past 2 days. 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 Abilify [Aripiprazole] Rash ??? Codeine Nausea And Vomiting and Rash ??? Oxycodone Rash Headache CURRENT MEDICATIONS: Current Outpatient Prescriptions Medication Sig Dispense Refill ??? ibuprofen (ADVIL;MOTRIN) 800 mg Tablet Take 800 mg by mouth 2 times daily. ??? acetaminophen (TYLENOL) 325 mg Tablet Take 2 tablets by mouth every 4 hours as needed for Pain (mild pain). 30 tablet 1 ??? gabapentin (NEURONTIN) 300 mg Capsule Take 300 mg by mouth 3 times daily. 300 mg in the morning and afternoon; 600 mg at night ??? lamoTRIgine (LAMICTAL) 100 mg Tablet Take 100 mg by mouth daily. ??? hydrOXYzine (ATARAX) 25 mg Tablet Take [...] Take 200 mg by mouth nightly. ??? docusate sodium (COLACE) 100 mg capsule Take 100 mg by mouth daily. ??? aspirin 81 mg EC tablet Take 81 mg by mouth daily. ??? fluticasone (FLOVENT) 110 mcg/Actuation inhaler Inhale 1 puff into the lungs 2 times daily. 1 Inhaler 3 ??? omeprazole (PRILOSEC) 20 mg capsule Take 1 capsule by mouth daily. 30 capsule 3 No current facility-administered medications for this visit. PROBLEM LIST: Patient Active Problem List Diagnosis Code ??? [...] spondylosis M47.812 ??? Postoperative ileus K91.89, K56.7 ROS General: feeling well. Oriented X 3. Skin: denies other skin complaints EXAM General: NAD, pleasant, cooperative Skin: focused exam of the trunk, upper and lower extremities Significant skin findings: - trunk arms: few eczematous eroded patches, right lateral zamora 2 x 3 cm thinly eroded patch that seems to be healing, back is clear ASSESSMENT/PLAN Healing Erosions, trunk and arms I discussed this condition with the patient and explored therapeutic options. Pruritis Likely secondary to Opiates. I discussed that his itching is likely due to his fentanyl, though he seems to be healing up well and his itching has decreased. Recommendations: - Start Rx: Triamcinolone Cream - apply to the itchy areas on the arms and trunk BID (sent to [facility] in [facility]) - continue bandaging, ok to use TAC on the lesion on the right leg RTC - PRN Note initiated and routed to physician for review and change by: LINDSEY BRUCE LPN I, Kyle Pugh , have performed the documentation for this encounter in the presence of and acting as a scribe for Paula Carcamo MD. I, Dr. Paula Carcamo, performed the visit service though my nurse assisted me in scribing the note. I reviewed and edited this note above, a scribed service performed by my nurse. On closure of this note I agree with the accuracy of the documentation. Paula Carcamo MD Section of Dermatology [facility] documented in this encounter Plan of Treatment Upcoming Encounters Date Type Specialty Care Team Description 09/04/2022 Ancillary Procedure Radiology Aissatou Briggs Canc eled (D-SCHED ERROR CASINO SLOT SUPERVISOR / CORRECTION ) [address] [place] [address] (Wo rk) documented as of this encounter Visit Diagnoses Diagnosis Pruritus Unspecified pruritic disorder documented in this encounter Care Teams Steam Clean Machine Operator Relationship Specialty Start Date End Date Aissatou Briggs APRN PCP - General Internal Medicine 07/29/16 [address] [place] [address] documented as of this encounter
--- OUTSIDE RECORDS SUMMARY | 2022-08-15 01:34 | XMS_ITS | Encounter Summary ---
:1955 Author Organization [facility] [place] [address] Care Team Providers Name Role Phone Aissatou Briggs APRN Primary Care Provider Reason for Visit Reason Onset Date Comments Post Procedure Call 10/19/2016 Encounter Details Date Type Department Care Team Description 10/19/2016 Telephone Neurosurgery at [facility] Leticia Hook Post Procedure Call One [facility] [place] [address] Social History Tobacco Use Types Packs/Day Years Used Date Former Smoker Cigarettes Quit: 05/14/20 08 Smokeless Tobacco: Never Used Alcohol Use Standard Drinks/Week Comments No 0 (1 standard drink = 0.6 oz pure alcoho l) Sex Assigned at Date Recorded Not on file documented as of this encounter Miscellaneous Notes Telephone Encounter - Leticia Hook RN - 10/19/2016 9:10 AM EST F/U call s/pC3-6 laminectomy on ! by Dr. Bullard Date: 10/19/16 Neuro: alert and oriented: yes Dizzy or lightheaded: denies Numbness/tingling/weakness: right hand not tingling as much, left arm tingling, right hand a littleweaker Ambulation: well with a walker Put neck brace on due to pain Incision: looks good; dissolvable sutures Pain: surgical neck pain and in hands, taking Oxycodone 2 tablets every 4 hours with relief-will runout today Call transferred to Miguel Christianson PA-C for refill PO: eating and drinking well B&B: working well Sleep: wakes due to pain Other: had narcotic contract with Dr. Dupont documented in this encounter Plan of Treatment Upcoming Encounters Date Type Specialty Care Team Description 09/04/2022 Ancillary Procedure Radiology Aissatou Briggs, Berto velázquez (D-SCHED ERROR ALUM OPERATOR / CORRECTION ) [address] [place] [address] (Wo rk) documented as of this encounter Visit Diagnoses Not on filedocumented in this encounter Care Teams Customer Service Specialist Relationship Specialty Start Date End Date Aissatou Briggs, SANTOS PCP - General Internal Medicine 07/29/[address] [place] [address] documented as of this encounter
--- OUTSIDE RECORDS SUMMARY | 2022-08-15 01:34 | XMS_ITS | Encounter Summary ---
:1955 Author Organization [facility] [place] [address] Care Team Providers Name Role Phone ChesterYrise Marielle GRAHAM Primary Care Provider Encounter Details Date Type Department Care Team Description 08/27/2019 Telephone Cardiology Davida Lal MD [facility] [address] CARDIOLOGY DEPT [phone] [place], [place] [address] (Wo rk) Social History Tobacco Use Types Packs/Day Years Used Date Former Smoker Cigarettes Quit: 05/14/20 08 Smokeless Tobacco: Never Used Alcohol Use Standard Drinks/Week Comments No 0 (1 standard drink = 0.6 oz pure alcoho l) Sex Assigned at Date Recorded Not on file documented as of this encounter Miscellaneous Notes Telephone Encounter - Davida Lal MD - 08/27/2019 10:10 PM EDT Transfer call from [facility]. Spoke to the [facility] MD Dr. Auguste, MICU fellow Dr. Ellison, and tele ICU attending regarding this patient. Mr. Julian is a 64 year old man with a history of STEMI in the past and most recent cath in 2016 showing nonobstructive disease who presented with chest pain like someone was punching in the chest which was resolved by the time he arrived in the ED. EKG reportedly with nonspecific lateral changes (I did not review EKG). There was reported ?nonsustained [place], although I reviewed the strip that was sent and this appears to be sinus rhythm with baseline noise in between (it appears QRS's march out) rather than true wide complex tachycardia. He was hemodynamically stable during this episode but soon after started having seizures. He was in sinus rhythm during seizures. Firsttroponin negative. No more chest pain in the ED. From this history, I am not sure if this is a primary cardiac event. After discussion with critical care and the [facility] MD, we decided to transfer the patient to MICU with cardiology consult. documented in this encounter Plan of Treatment Upcoming Encounters Date Type Specialty Care Team Description 09/04/2022 Ancillary Procedure Radiology Aissatou Briggs Canc eled (D-SCHED ERROR STOCKROOM SELECTOR / CORRECTION ) [address] [place], [place] [id number] (Wo rk) documented as of this encounter Visit Diagnoses Not on filedocumented in this encounter Care Teams Filing Clerk Relationship Specialty Start Date End Date Aissatou Briggs APRN PCP - General Internal Medicine 07/29/[address] [place] [address] documented as of this encounter
--- OUTSIDE RECORDS SUMMARY | 2022-08-15 01:34 | XMS_ITS | Encounter Summary ---
:1955 Author Organization [facility] Address [place] [address] Care Team Providers Name Role Phone Aissatou Briggs APRN Primary Care Provider Encounter Details Date Type Department Care Team Description 09/22/2017 Telephone Neurology at [facility] Anthony William MD [facility] [place] [address] NEUROLOGY DEPT [phone] [place], [place] [address] (Wo rk) Social History Tobacco Use Types Packs/Day Years Used Date Former Smoker Cigarettes Quit: 05/14/20 08 Smokeless Tobacco: Never Used Alcohol Use Standard Drinks/Week Comments No 0 (1 standard drink = 0.6 oz pure alcoho l) Sex Assigned at Date Recorded Not on file documented as of this encounter Miscellaneous Notes Telephone Encounter - Anthony William MD - 09/22/2017 9:51 PM EST [facility] calling regarding this patient patient. Prehexting L hemiparesis (3/5), has braceat baseline, went t PCP this AM because head and neck pain and yara decrease streng in on L. No other symptoms - improving to baseline weakness. H/o drug abuse and alcohol abuse. Seeing marginal improvement in symptoms. 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 Unclear the chronicity of this. Call ortho spineto get their opinion of this and to help determine if this is something that needs to be intervened upon more urgently and to help with management. Regarding the older lacunar strokes I advised stroke work-up with vessel imaging, anti-platelet therapy, and statin. Anthony William MD PGY-3 Neurology documented in this encounter Plan of Treatment Upcoming Encounters Date Type Specialty Care Team Description 09/04/2022 Ancillary Procedure Radiology Aissatou Briggs Canc eled (D-SCHED ERROR HVAC/R INSTRUCTOR / CORRECTION ) [address] [place], [place] [id number] (Wo rk) documented as of this encounter Visit Diagnoses Not on filedocumented in this encounter Care Teams Barman Relationship Specialty Start Date End Date Aissatou Briggs APRN PCP - General Internal Medicine 07/29/[address] [address] documented as of this encounter
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
--- OUTSIDE RECORDS SUMMARY | 2022-08-15 01:35 | XMS_ITS | Encounter Summary ---
:1955 Author Organization [facility] [place] [address] Care Team Providers Name Role Phone Jairon Gomez MD Primary Care Provider [phone] Reason for Visit Reason Onset Date Comments Medication Refill 06/29/2016 Encounter Details Date Type Department Care Team Description 06/29/2016 Telephone Neurology at [facility] Gustavo Hayes, Medication Refill [facility] [place] [address] [facility] [phone] NEUROLOGY DEPT. [place], [place] [address] (Wo rk) Social History Tobacco Use Types Packs/Day Years Used Date Former Smoker Cigarettes Quit: 05/14/20 08 Smokeless Tobacco: Never Used Alcohol Use Standard Drinks/Week Comments No 0 (1 standard drink = 0.6 oz pure alcoho l) Sex Assigned at Date Recorded Not on file documented as of this encounter Miscellaneous Notes Telephone Encounter - Constance Michelle CMA - 06/30/2016 8:02 AM EDT Refill request prepped and sent to [place] for review and signature. Telephone Encounter - Rubina Garay - 06/29/2016 9:22 AM EDT Name of Med: Hydrocodone-acetaminophen Strength of Pills: 5-325 mg Dosing Directions: Takes 1 tablet twice a day 30 or 90 Day: Pharmacy: [facility] Last Appointment: 05/22/2016 Next Appointment: n/a Is Patient out of Medication?: yes documented in this encounter Plan of Treatment Upcoming Encounters Date Type Specialty Care Team Description 09/04/2022 Ancillary Procedure Radiology Aissatou Briggs, Berto velázquez (D-SCHED ERROR MEDART OPERATOR / CORRECTION ) [address] [place] [address] (Wo rk) documented as of this encounter Visit Diagnoses Not on filedocumented in this encounter Care Teams Medical Malpractice Paralegal Relationship Specialty Start Date End Date Jairon Gomez MD PCP - General 09/23/10 07/28/[address] [place] [address] documented as of this encounter
--- OUTSIDE RECORDS SUMMARY | 2022-08-15 01:35 | XMS_ITS | Encounter Summary ---
:1955 Author Organization [facility] [place] [address] Care Team Providers Name Role Phone Jairon Gomez MD Primary Care Provider Reason for Visit Reason Onset Date Comments Medication Refill 01/27/2016 Encounter Details Date Type Department Care Team Description 01/27/2016 Telephone Neurology at [facility] Constance Michelle, Medication Refill [facility] [place] [address] Social History Tobacco Use Types Packs/Day Years Used Date Former Smoker Cigarettes Quit: 05/14/20 08 Smokeless Tobacco: Never Used Alcohol Use Standard Drinks/Week Comments No 0 (1 standard drink = 0.6 oz pure alcoho l) Sex Assigned at Date Recorded Not on file documented as of this encounter Miscellaneous Notes Telephone Encounter - Constance Michelle CMA - 01/27/2016 12:43 PM EDT New Rx for HYDROcodone-acetaminophen 5-325 mg Tablet Mailed to requested pharmacy. . [facility]. documented in this encounter Plan of Treatment Upcoming Encounters Date Type Specialty Care Team Description 09/04/2022 Ancillary Procedure Radiology Aissatou Briggs, Berto velázquez (D-SCHED ERROR BRAND ATTENDANT / CORRECTION ) [address] [place], [place] [id number] (Wo rk) documented as of this encounter Visit Diagnoses Not on filedocumented in this encounter Care Teams Contact Lens Blocker Relationship Specialty Start Date End Date Jairon Gomez MD PCP - General 09/23/10 07/28/[address] [place] [address] documented as of this encounter
--- OUTSIDE RECORDS SUMMARY | 2022-08-15 01:35 | XMS_ITS | Encounter Summary ---
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 reflex Culture (09/19/2016 11:43 AM EST) [facility] gist Method Time Signature Glucose UA Negative Negative [facility] mg/dL [facility] Protein UA Negative Negative [facility] mg/dL [facility] Bilirubin UA Negative Negative [facility] mg/dL [facility] Comment: Clinical correlation required for positi ve Urine Bilirubin results as false positive may occur with some drugs and d rug related products. If a false positive is suspected a serum total bili dexter should be considered if clinically indicated. Urobilinogen UA Normal Normal mg/dL [facility] LABORAT[facility] pH UA 7.0 5.0 - 8.0 [facility] LABORATORY Blood UA Small (A) Negative mg/dL [facility] Ketones UA Negative Negative mg/dL [facility] Nitrite UA Negative Negative [facility] LABORATORY Leukocytes UA Negative Negative mcL [facility] LABORATORY Appearance UA Clear Clear [facility] LABOR[facility] Spec Boling UA 1.010 1.002 - 1.030 [facility] LABORATORY Color UA Straw Yellow [facility] LABORATORY RBC UA 2 0 - 3 /HPF [facility] LABORATORY WBC UA 1 0 - 3 /HPF [facility] LABORATORY Culture Reflexed No [facility] LABORATORY Specimen (Source) Anatomical Collection Method Collection Time Re ceived Time Location / / Volume Laterality Urine specimen 09/19/2016 11:43 6 obtained by clean AM EST 11:[address] catch procedure (specimen) Resulting Agency Comment Spec In Lab Yariel Suárez MD URINE ORDERABLES Performing Organization Address City/State/ZIP [place] [address] EKG 12 Lead (09/19/2016 8:06 AM EST) Component Value Ref Range Test Analysis Performed Pathologis t Method Time At Signature Ventricular rate 62 BPM MUSE SYSTEM Atrial Rate 62 BPM MUSE SYSTEM P-R Interval 134 ms MUSE SYSTEM QRS Duration 80 ms MUSE SYSTEM Q-T Interval 476 ms MUSE SYSTEM QTC Calculated 483 ms MUSE SYSTEM (Bezet) Calculated P [place] 22 degrees MUSE SYSTEM Calculated R [place] 20 degrees MUSE SYSTEM Calculated T [place] -54 degrees MUSE SYSTEM INTERPRETATION Normal sinus rhythm MUSE SYSTEM Possible Inferior infarct (cited on or before 18-SEP-2016) Nonspecific ST and T wave abnormality Abnormal ECG Confirmed by MD Skyler, Mir (57) on 09/19/2016 4:17:32 P M Specimen Anatomical Collection Method Collection Time Receive d Time (Source) Location / / Volume Laterality 09/19/2016 8:06 AM 6 4:17 EST PM EST Heike Mario MD ECG ORDERABLES Performing Organization Address City/State/ZIP Code Phon e Number MUSE SYSTEM (ABNORMAL) Differential, Automated (09/19/2016 5:44 AM EST) Patholo gist Method Time Signature Neutrophils % 69.7 % [facility] LABORATORY Neutr Abs (ANC) 5.92 1.70 - [facility] 6.10 [facility] x10(3)/[facility] LABORATORY Lymphocytes % 13.9 % [facility] LABORATORY Lymphocytes Abs 1.2 0.9 - 3.2 [facility] x10(3)/[facility] LABORATORY Monocytes % 11.5 % [facility] LABORATORY Monocyte Abs 1.0 (H) 0.3 - 0.9 [facility] x10(3)/[facility] LABORATORY Eosinophils % 3.8 % [facility] LABORATORY Eosinophils Abs 0.3 0.0 - 0.4 [facility] x10(3)/[facility] LABORATORY Basophils % 0.6 % [facility] LABORATORY Basophils Abs 0.0 0.0 - 0.1 [facility] x10(3)/[facility] LABORATORY Immature Gran % 0.50 % [facility] LABORATORY Comment: Immature granulocytes(IG's)percentage an d absolute count will include metamyelocytes, myelocytes, and promyelo cytes. Blood smears from CBCs yielding IG's will be scanned manually for conckarl danskyler. If this scan disagrees with the automated IG or if promyelocytes are not ed, a manual differential will be performed. [place] Gran Abs 0.04 0.00 - 0.04 x10(3)/[facility] LABORATORY Specimen Anatomical Collection Method Collection Time Receive d Time (Source) Location / / Volume Laterality Blood specimen 09/19/2016 5:44 AM 016 5:57 (specimen) EST AM EST Resulting Agency Comment Spec In Lab Heike Mario MD HEMATOLOGY ORDERABLES Performing Organization Address City/State/ZIP [place] [address] (ABNORMAL) Hemogram (09/19/2016 5:44 AM EST) Analysis Performed At Patho logist Time Signature WBC 8.5 4.0 - 9.5 [facility] x10(3)/[facility] LABORATORY RBC 4.65 4.58 - [facility] 5.54 [facility] x10(6)/[facility] LABORATORY Hemoglobin 13.8 13.7 - [facility] 16.5 gm/dL [facility] Hematocrit 40.9 40.5 - [facility] 48.5 % [facility] MCV 88.0 82.9 - [facility] 93.[address] [facility] LABORATORY MCH 29.7 27.5 - [facility] 32.1 pg [facility] LABORAT[facility] MCHC 33.7 32.0 - [facility] 35.7 gm/dL [facility] LABORATORY Platelets 134 (L) 145 - 357 [facility] x10(3)/[facility] LABORATORY RDWSD 46.3 (H) 36.0 - [facility] 45.[address] [facility] LABORATORY RDWCV 14.4 (H) 11.4 - [facility] 13.8 % [facility] LABORATORY MPV 10.0 7.6 - 12.9 [facility] LABORATORY nRBC % Auto 0.0 % [facility] LABORATORY nRBC Abs Auto 0.000 0.000 - [facility] 0.000 [facility] x10(3)/[facility] LABORATORY Specimen Anatomical Collection Method Collection Time Receive d Time (Source) Location / / Volume Laterality Blood specimen 09/19/2016 5:44 AM 016 5:57 (specimen) EST AM EST Resulting Agency Comment Spec In Lab Heike Mario MD HEMATOLOGY ORDERABLES Performing Organization Address City/State/ZIP [place] [address] (ABNORMAL) Basic Metabolic Panel (non-fasting) (09/19/2016 5:44 AM EST) athologist Signature Glucose Lvl 111 65 - 199 [facility] mg/dL [facility] Comment: Diabetes: >=200 mg/dL plus symp toms BUN 21 (H) 10 - 20 mg/dL [facility] LABORAT[facility] Creatinine 1.12 0.80 - 1.50 mg/dL [facility]OR[facility] Comment: Please note that the pediatric reference intervals supplied above were not validated at [facility]. Results from pediatri c patients should be interpreted in conjunction to the patient's age, height and muscle mass. Sodium 139 135 - 145 mmol/L [facility] LABORATORY Potassium 5.0 3.5 - 5.0 mmol/L [facility] LABOR[facility] Comment: Please note: ??Patients with WBC >100,00 0 may have falsely elevated Potassium levels. ??For accurate Potassium quantif ication in these patients send serum separator tube (gold top) for subsequent determinations. ??Contact the Clinical Chemistry Laboratory if there are any qu estions. Chloride 102 98 - 107 mmol/L [facility] CO2 24 22 - 31 mmol/L [facility] Anion Gap 13 5 - 15 mmol/L [facility] LABOR[facility]ORY Calcium 9.2 8.5 - 10.5 mg/dL [facility] LABORATORY Estimated GFR >60 >=60 [facility] Comment: This estimated GFR (eGFR) value was calc ulated using the MDRD equation which has been validated on patients between t he ages of 18 and 70. The MDRD should not be used to assess kidney function in patients < 18 years of age or in patients with extremes of body mass, or in patients with acute kidney failure. This value should be multiplied by 1.2 f or patients. For further information please copy and past e the following links into your internet browser. [email or web address] Specimen Anatomical Collection Method Collection Time Receive d Time (Source) Location / / Volume Laterality Blood specimen 09/19/2016 5:44 AM 016 5:57 (specimen) EST AM EST Resulting Agency Comment Spec In Lab Heike Mario MD CHEMISTRY ORDERABLES Performing Organization Address City/[facility]/ZIP Code Phon e Number [address] Phenytoin level, total (09/19/2016 5:44 AM EST) P athologist Signature Phenytoin Lvl 11.9 10.0 - [facility] 20.0 mg/L [facility] LABORATORY Comment: Theraputic range: ??10-20 mg/L Toxic: ??> 25 mg/L Patients with renal dysfunction (e.g.cre atinine clearance < 30 mls/min) may show falsely elevated results due to acc umulation of metabolites in renal failure Specimen Anatomical Collection Method Collection Time Receive d Time (Source) Location / / Volume Laterality Blood specimen 09/19/2016 5:44 AM 016 5:57 (specimen) EST AM EST Resulting Agency Comment Spec In Lab Yariel Suárez MD CHEMISTRY ORDERABLES Performing Organization Address City/[facility]/[place] [address] EKG 12 Lead (09/18/2016 9:42 PM EST) Component Value Ref Range Test Analysis Performed Pathologis t Method Time At Signature Ventricular rate 61 BPM MUSE SYSTEM Atrial Rate 61 BPM MUSE SYSTEM P-R Interval 136 ms MUSE SYSTEM QRS Duration 78 ms MUSE SYSTEM Q-T Interval 456 ms MUSE SYSTEM QTC Calculated 459 ms MUSE SYSTEM (Bezet) Calculated P [place] 53 degrees MUSE SYSTEM Calculated R [place] 31 degrees MUSE SYSTEM Calculated T [place] -139 degrees MUSE SYSTEM INTERPRETATION Normal sinus rhythm MUSE SYSTEM Possible Inferolateral infarction Nonspecific ST and T wave abnormality Abnormal ECG Confirmed by MD Holland Douglas (57) on 09/19/2016 4:15:33 P M Specimen Anatomical Collection Method Collection Time Receive d Time (Source) Location / / Volume Laterality 09/18/2016 9:42 PM 6 4:15 EST PM EST Heike Mario MD ECG ORDERABLES Performing Organization Address City/State/ZIP Code Phon e Number MUSE SYSTEM CARDIAC CATHETERIZATION (09/18/2016 4:40 PM EST) Anatomical Region Laterality Modality Other Specimen (Source) Anatomical Location Collection Method / Collectio n Time Received Time / Laterality Volume Narrative 09/18/2016 4:53 PM EST ?[facility] ? Cardiac Cathete rization/Intervention Report ? Patient Name: Junaid Pérez. ? Procedure Date: 09/18/2016 ? A #: [id number] ? Primary Physician: Butler, Chavo W ? Case #: [id number] ? File Name: [id number] ? Catheterization Order Number: [id number] ? [facility] ? Final Report [place], [place] ? Patient Name: ? Junaid Nails nt ? ID#: ?[id number] ? : ?1955 ? Procedure Date: ? November 18, 20 16 ?Case #: ? [id number] ? Room: ? 5 ? Case Physician: ? Chavo bowman MBreann ?Start: ?16:03 ?Fellow: ? Aga castañeda M.D. ? Admission: ??09/17/2016 ? Discharge: ??09/19/2016 ? Procedures: ?* Coronary Angiography ?* Left Heart Catheterization ?* Vascular Closure Device Deplo yment ? History ?Junaid Pérez is a 61 year o ld man. He has a family history of ?coronary artery disease. The pa trey has a history of smoking. He has ?unstable angina, negative tropo nathan and a prior history of coronary artery ?disease. The patient is status post a remote myocardial infarction. He ?had a remote coronary intervent ion procedure. The patient has a history ?of mild liver disease. He also has a history of an abnormal stress test ?and an abnormal echocardiogram. Prior to the initiation of this ?procedure, the patient was karen gnated as ASA Class III. ? Patient Status at Catheterization: ?The patient presented with: uns table angina (w/i 60 days). [place] ?[employer]iovascular Society angina c lass was IV. A SPECT stress test was ?performed and results were Nega tive. ? Technique: ?A 6Fr sheath was inserted in th e right femoral artery utilizing the ?Seldinger technique. The left c oronary artery was injected utilizing a ?6Fr JL 4 catheter. A 5Fr JR 4 c atheter was used to inject the right ?coronary artery. Left ventricul ar pressure was performed with a 6Fr ?Angled pigtail catheter. A tota l of 100cc of Omnipaque were opened, 75cc ?of Omnipaque were administered and 25cc of Omnipaque were wasted. ?Radiation: Fluoro time was 4.0 minutes, dose area product was 24,663 ?mGYcm2 and air kerma was 501 mG Y. ?The patient received the follow ing medications prior to and during the ?procedure: Aspirin (any) and Un fractionated Heparin (any). ? Hemodynamics: ?Left Heart Pressures ? Resting: ? Syst D iast ? EDP ?a ?v ? m ?Ao 103 ?? 53 ?73 ?LV 101 ? 14 ? Coronary Angiography: ?Dominance: Right ?Left Main ? The left main was normal . ?Left Anterior Descending ? There was mild diffuse d isease of the proximal segment of the left ? anterior descending rebecca ry (LAD). ??The mid segment of the LAD had ? mild diffuse disease. ?Left Circumflex ? There was mild diffuse d isease of the proximal segment of the left ? circumflex artery (LCX). ??The mid segment of the LCX had mild ? diffuse disease. ??The p reviously placed stent is patent. ?Right Coronary Artery ? The right coronary arter y (RCA) was normal. ? Vascular Access: ?Vascular Access Angiogram: ? A selective angiogram at the right femoral artery revealed no ? significant obstructive disease. ?Vascular Access Management: ? A 6 Fr Perclose was depl oyed at the right femoral artery access ? site. This device was rock ccessful. ? Conclusions: ?* Nonobstructive coronary arter y disease ? Complications/Events: ?The patient had no complication s during these procedures. ?The attending physician was presen t for the entire procedure. ?Dr. Chavo Lawton M.D. perfor med the coronary angiography, left heart ?catheterization and vascular closu re device. ? Chavo W Jered, M.D. ? Electronically Signed by: Chavo W Ni les, M.D. ? Report Finalized: 09/18/2016 ??16:50 ? Report Last Ammended: 12/22/2016 ??09:47 ? Procedure Note Chavo Lawton II, MD - 12/22/2016Fo rmatting of this note might be different from the original. [facility] Cardiac Catheterization/Intervention Re port Patient Name: Junaid Pérez Procedure Date: 09/18/2016 A #: [id number] Primary Physician: Chavo Lawton Case #: [id number] File Name: [id number] Catheterization Order Number: [id number] [facility] Final Report [place], [place] Patient Name: Junaid Pérez ID#: [id number] : 1955 Procedure Date: September 18, 2016 Case # : [id number] Room: 5 Case Physician: Chavo Lawton M.D. Start: 16:03 Fellow: Aga Lewis M.D. Admission: 1 11/17/2015 Discharge: 09/19/2016 Procedures: * Coronary Angiography * Left Heart Catheterization * Vascular Closure Device Deployment History Junaid Pérez is a 61 year old man. He has a family history of coronary artery disease. The patient howell s a history of smoking. He has unstable angina, negative troponin and a prior history of coronary artery disease. The patient is status post a r emote myocardial infarction. He had a remote coronary intervention proc [facility]. The patient has a history of mild liver disease. He also has a hi story of an abnormal stress test and an abnormal echocardiogram. Prior t o the initiation of this procedure, the patient was designated a s ASA Class III. Patient Status at Catheterization: The patient presented with: unstable an zahra (w/i 60 days). [place] [employer] angina class was IV. A SPECT stress test was performed and results were Negative. Technique: A 6Fr sheath was inserted in the right femoral artery utilizing the Seldinger technique. The left coronary artery was injected utilizing a 6Fr JL 4 catheter. A 5Fr JR 4 catheter was used to inject the right coronary artery. Left ventricular press ure was performed with a 6Fr Angled pigtail catheter. A total of 100 cc of Omnipaque were opened, 75cc of Omnipaque were administered and 25cc of Omnipaque were wasted. Radiation: Fluoro time was 4.0 minutes, dose area product was 24,663 mGYcm2 and air kerma was 501 mGY. The patient received the following medi cations prior to and during the procedure: Aspirin (any) and Unfraction ated Heparin (any). Hemodynamics: Left Heart Pressures Resting: Syst Diast EDP a v m Ao 103 53 73 LV 101 14 Coronary Angiography: Dominance: Right Left Main The left main was normal. Left Anterior Descending There was mild diffuse disease of the p roximal segment of the left anterior descending artery (LAD). The m id segment of the LAD had mild diffuse disease. Left Circumflex There was mild diffuse disease of the p roximal segment of the left circumflex artery (LCX). The mid segmen t of the LCX had mild diffuse disease. The previously placed stent is patent. Right Coronary Artery The right coronary artery (RCA) was nor mal. Vascular Access: Vascular Access Angiogram: A selective angiogram at the right femo ral artery revealed no significant obstructive disease. Vascular Access Management: A 6 Fr Perclose was deployed at the [facility] femoral artery access site. This device was successful. Conclusions: * Nonobstructive coronary artery diseas e Complications/Events: The patient had no complications during these procedures. The attending physician was present for the entire procedure. Dr. Chavo Lawton M.D. performed t he coronary angiography, left heart catheterization and vascular closure de vice. Chavo Lawton M.D. Electronically Signed by: Chavo cornelius M.D. Report Finalized: 09/18/2016 16:50 Report Last Ammended: 12/22/2016 09:47 Chavo Lawton II, MD CARDIAC CATH ORDERABLES Cardiac Enzymes (09/18/2016 1:15 PM EST) P athologist Signature Troponin-T <0.03 <=0.03 [facility] ng/mL [facility]OR[facility] Comment: 0.03 ng/mL: Represents the 99th [...] consensus document of the Joint Society of Cardiology/[place] [employer] Committee for the redefinition of myocardial infarction. ? ?Journal of the [place] College [employer]iology 2000; 36: 959-969] CK, Total 47 0 - 200 unit/L [facility] Specimen Anatomical Collection Method Collection Time Receive d Time (Source) Location / / Volume Laterality Blood specimen Venous Draw / 09/18/2016 1:15 PM 2015 2:03 (specimen) Unknown EST PM EST Resulting Agency Comment Spec In Lab Heike Mario MD CHEMISTRY ORDERABLES Performing Organization Address City/State/ZIP [place] [address] Green Tube HOLD (09/18/2016 1:15 PM EST) P athologist Signature Green Hold Sample in [facility]. [facility]OR[facility] Specimen Anatomical Collection Method Collection Time Receive d Time (Source) Location / / Volume Laterality Blood specimen Venous Draw / 09/18/2016 1:15 PM 2015 1:44 (specimen) Unknown EST PM EST Heike Mario MD CHEMISTRY ORDERABLES Performing Organization Address City/[facility]/ZIP Code Phon e Number [address] (ABNORMAL) APTT (09/18/2016 1:15 PM EST) P athologist Signature PTT 89 (H) 25 - 35 sec [facility] Comment: The recommended therapeutic range for fu ll dose, unfractionated heparin at [facility] is 80 ? 114 seconds. The use of the anti-Xa (heparin) level rather than the PTT is recommended for monitoring anticoagul ation intensity in critically ill patients receiving unfractionated hepari n by continuous IV infusion. Specimen Anatomical Collection Method Collection Time Receive d Time (Source) Location / / Volume Laterality Blood specimen 09/18/2016 1:15 PM 016 1:44 (specimen) EST PM EST Resulting Agency Comment Spec In Lab Heike Mario MD HEMATOLOGY ORDERABLES Performing Organization Address [facility] [place] [address] EKG 12 Lead (09/18/2016 10:50 AM EST) Component Value Ref Range Test Analysis Performed Pathologis t Method Time At Signature Ventricular rate 65 BPM MUSE SYSTEM Atrial Rate 65 BPM MUSE SYSTEM P-R Interval 128 ms MUSE SYSTEM QRS Duration 72 ms MUSE SYSTEM Q-T Interval 412 ms MUSE SYSTEM QTC Calculated 428 ms MUSE SYSTEM (Bezet) Calculated P [place] 49 degrees MUSE SYSTEM Calculated R [place] 10 degrees MUSE SYSTEM Calculated T [place] -146 degrees MUSE SYSTEM INTERPRETATION Normal sinus rhythm MUSE SYSTEM Nonspecific ST and T wave abnormality Possible Inferior infarct (cited on or before 18-SEP-2016) Abnormal ECG When compared with ECG of 17-SEP-2016 15:19, QT has shortened Confirmed by MD JAIRO, MAYA ([id number]) on 09/18/2016 5:35:31 PM Specimen Anatomical Collection Method Collection Time Receive d Time (Source) Location / / Volume Laterality 09/18/2016 10:50 09/18/2016 5:35 AM EST PM EST Valente Choudhury MD ECG ORDERABLES Performing Organization Address City/State/ZIP Code Phon e Number MUSE SYSTEM ECHOCARDIOGRAM COMPLETE (09/18/2016 8:39 AM EST) P athologist Signature EF 40 HEARTLAB SYSTEM Anatomical Region Laterality Modality Other Specimen (Source) Anatomical Location Collection Method / Collectio n Time Received Time / Laterality Volume 09/18/2016 Narrative 09/18/2016 9:01 AM EST Procedure: ?Transthoracic Echocardiogram Patient: ?JUANA Sánchez ? (Age): 1955(61y) Med Rec#: ? [id number] ?Sex: ?M ? Site Loc: ? [facility] ?Ht / Wt: ??162(cm)/68(kg) Pt. Loc: ?Adult Floor ? BSA: ?1.73 Study Date: ?? 09/18/2016 ?Pt. Type: Inpatient Tape: ? Referring: Heike Mario Referring: AISSATOU BRIGGS A Reading: Carlos Núñez ([id number]) Diagnosis: *ICD-10-PCS Chest pain, unspecified (R0 7.9) BP: ? 112/61 SUMMARY: 1. The left ventricular chamber size is normal. ??Global left ventricular systolic function is moderately reduced. ??The quantitative left ventricular ejection fraction by biplane Jaramillo's method is 40%. ??There are left ventricular segmental wall nicole on abnormalities present, as shown in the diagram below. 2. Right ventricular chamber size, wall thickness, and systolic function are within normal limits. 3. There is no hemodynamically significa nt valve disease. 4. When compared with study dated 2010, there has been a decline in LVEF (52%-->40%) ??Wall motion abnormalities are in the same distribution but more severe. 5. See remainder of report for additiona l findings. Findings ? : Left Ventricle: ? The left ventricul ar chamber size is normal. ?Left ventricular wall thickness is normal. ?There is no evidence of LVOT obstr uction. ?No ventricular septal defect is vi sualized. ?Global left ventricular systolic f unction is moderately reduced. ?The quantitative left ventricular ejection fraction by biplane Jaramillo's method is 40%. ?There are left ventricular segment al wall motion abnormalities present, as shown in the diagram below. ?The ??basal inferior, and ??apical lateral wall segments are hypokinetic (score 2). ?There is scarring/thinningof the b talat anterolateral, basal inferolateral, mid anterolateral, and ?? mid inferolateralwall segments (score 5). ?Overall wallmotion score index is ??2.13 ?No thrombus is visualized within t he left ventricle. ?A false chord is observed in the l eft ventricle. Left Atrium: ? The left atrium is no rmal in size. Right Ventricle: ? Right ventricular chamber size, wall thickness, and systolic function are within normal limi ts. Right Atrium: ? The right atrium сергей ears normal. Aortic Valve: ? The aortic valve is tricuspid. ?There is no evidence of aortic kaiden ve stenosis. ?Mild (1+/4+) aortic valve regurgit ation is present. Mitral Valve: ? The mitral valve shameka flets are mildly thickened. ?There is no evidence of mitral yvonne nosis. ?There is mild (1+/4+) mitral regur gitation present. Tricuspid Valve: ? The tricuspid kaiden ve leaflets are morphologically normal. ?There is no tricuspid valve stenos is. ?There is trace tricuspid regurgita tion present. Pulmonic Valve: ? The pulmonic valve appears normal in structure and function. Pericardium: ? The pericardium appea rs normal and there is no evidence of a pericardial effusion. Aorta: ? The aorta appears normal. Pulmonary Artery: ? The main pulmona ry artery appears normal. Venous: ? The inferior vena cava сергей ears normal in size. ?There is a greater than 50% respir atory change in the inferior vena cava dimension. Misc: ? There is no hemodynamically significant valve disease. ?See remainder of report for additi onal findings. Chambers 2D ?Value ?Units (Range) ? IVSd (2D) ? 0.8 ?cm ? LVPWd (2D) ?0.5 ?cm ? IVS:LVPW ratio (2D) 1.6 ?ratio ? LVIDd (2D) ?5.7 ?cm ? LVIDs (2D) ?4.4 ?cm ? EF Teichholz (2D) ?? 43.8 ? % ? Ao root diameter (2D3.2 ?cm (2.1 - 3.6) ? Ascending Ao ?3.1 ?cm (2 - 3.5) ? Volumes/Mass ?Value ?Units (Range) ? LA Area 4 CH ?17.5 ? cm2 (<21) ? RA AREA 4CH ? 13.2 ? cm2 ? LA ESV SP 4CH (MOD) 43.3 ? ml ? LA ESV SP 2CH (MOD) 62.6 ? ml ? LA ESV BP (MOD) ? 54 ? ml ? LA ESV BP (MOD) inde31.2 ? ml/m2 ? LV ESV SP 4CH (MOD) 58.9 ? ml ? LV ESV SP 2CH (MOD) 90.7 ? ml ? LV EDV BP ? 129 ?ml ? LV ESV BP ? 78.1 ? ml ? BP EF (MOD) ? 39.5 ? % ? Diastolic/Systolic Function ?Value ?Units (Range) ? MV E-wave Vmax ?0.4 ?m/sec ? MV deceleration apqr034 ?msec ? MV A-wave Vmax ?0.7 ?m/sec ? MV E:A ratio ?0.6 ?ratio ? LV septal e' Vmax ?? 0.1 ?m/sec ? LV lateral e' Vmax ??0.1 ?m/sec ? LV E:e' septal ratio7.2 ?ratio ? LV E:e' lateral rati8.1 ?ratio ? Aortic Valve ?Value ?Units (Range) ? AR PHT ?852 ?msec ? AR peak gradient ?60 ? mmHg ? Tricuspid Valve ?Value ?Units (Range) ? TR Vmax ? 1.8 ?m/sec ? TR peak gradient ?13 ? mmHg ? RAP ? 3 ?mmHg ? Measurement Trending Name ? 09/18/2016 ? LV EDV BP ?1 29 LVIDd (2D) ? 5. 66 LV ESV BP ?7 8.1 LA ESV BP (MOD) ?54 LVIDs (2D) ? 4. 41 Wall Motion: Segment Name ?Rest ? Base-Anteroseptal ?? Normal ? Base-Anterior ? Normal ? Base-Anterolateral ??Scarring/Thinning ? ? Base-Posterolateral Scarring/Thinning ?? Base-Inferior ? Hypokinetic ? Base-Inferoseptal ?? Normal ? Mid-Anteroseptal ?Normal ? Mid-Anterior ?Normal ? Mid-Anterolateral ?? Scarring/Thinning ? ? Mid-Posterolateral ??Scarring/Thinning ? ? Mid-Inferior ?Normal ? Mid-Inferoseptal ?Normal ? Cocoa-Septal ? Normal ? Cocoa-Anterior ? Normal ? Cocoa-Lateral ?Hypokinetic ? Cocoa-Inferior ? Normal ? Cocoa-Tip ?Normal ? This report has been electronically sign ed by: _ Carlos Núñez M.D. ? 09/18/2016 09:00:29 Images reviewed and interpretation [facility] Cardiac [facility] Laboratory Procedure Note Carlos Núñez MD - 09/18/2016Format ting of this note might be different from the original. Procedure: Transthoracic Echocardiogram Patient: JUANA Sánchez (Age): [birth year]61y) Med Rec#: [id number] Sex: M Site Loc: [facility] Ht / Wt: 162(cm)/68(kg) Pt. Loc: Adult Floor BSA: 1.73 Study Date: 09/18/2016 Pt. Type: Inpatie nt Tape: Referring: Heike Mario Referring: AISSATOU BRIGGS A Reading: Carlos Núñez ([id number]) Diagnosis: *ICD-10-PCS Chest pain, unspecified (R0 7.9) BP: 112/61 SUMMARY: 1. The left ventricular chamber size is normal. Global left ventricular systolic function is moderately reduced. The quantitative left ventricular ejection fraction by biplane Jaramillo's method is 40%. There are left ventricular segmental wall nicole on abnormalities present, as shown in the diagram below. 2. Right ventricular chamber size, wall thickness, and systolic function are within normal limits. 3. There is no hemodynamically significa nt valve disease. 4. When compared with study dated 2010, there has been a decline in LVEF (52%-->40%) Wall motion abnormalities ar e in the same distribution but more severe. 5. See remainder of report for additiona l findings. Findings : Left Ventricle: The left ventricular camille mber size is normal. Left ventricular wall thickness is norm al. There is no evidence of LVOT obstructio n. No ventricular septal defect is visuali zed. Global left ventricular systolic functi on is moderately reduced. The quantitative left ventricular eject ion fraction by biplane Jaramillo's method is 40%. There are left ventricular segmental wa ll motion abnormalities present, as shown in the diagram below. The basal inferior, and apical lateral wall segments are hypokinetic (score 2). There is scarring/thinningof the basal anterolateral, basal inferolateral, mid anterolateral, and mi d inferolateralwall segments (score 5). Overall wallmotion score index is 2.13 No thrombus is visualized within the le ft ventricle. A false chord is observed in the left v entricle. Left Atrium: The left atrium is normal i n size. Right Ventricle: Right ventricular chamb er size, wall thickness, and systolic function are within normal limi ts. Right Atrium: The right atrium appears n ormal. Aortic Valve: The aortic valve is tricus pid. There is no evidence of aortic valve st enosis. Mild (1+/4+) aortic valve regurgitation is present. Mitral Valve: The mitral valve leaflets are mildly thickened. There is no evidence of mitral stenosis . There is mild (1+/4+) mitral regurgitat ion present. Tricuspid Valve: The tricuspid valve shameka flets are morphologically normal. There is no tricuspid valve stenosis. There is trace tricuspid regurgitation present. Pulmonic Valve: The pulmonic valve appea rs normal in structure and function. Pericardium: The pericardium appears nor mal and there is no evidence of a pericardial effusion. Aorta: The aorta appears normal. Pulmonary Artery: The main pulmonary art hunter appears normal. Venous: The inferior vena cava appears n ormal in size. There is a greater than 50% respiratory change in the inferior vena cava dimension. Misc: There is no hemodynamically signif icant valve disease. See remainder of report for additional findings. Chambers 2D Value Units (Range) IVSd (2D) 0.8 cm LVPWd (2D) 0.5 cm IVS:LVPW ratio (2D) 1.6 ratio LVIDd (2D) 5.7 cm LVIDs (2D) 4.4 cm EF Teichholz (2D) 43.8 % Ao root diameter (2D3.2 cm (2.1 - 3.6) Ascending Ao 3.1 cm (2 - 3.5) Volumes/Mass Value Units (Range) LA Area 4 CH 17.5 cm2 (<21) RA AREA 4CH 13.2 cm2 LA ESV SP 4CH (MOD) 43.3 ml LA ESV SP 2CH (MOD) 62.6 ml LA ESV BP (MOD) 54 ml LA ESV BP (MOD) inde31.2 ml/m2 LV ESV SP 4CH (MOD) 58.9 ml LV ESV SP 2CH (MOD) 90.7 ml LV EDV BP 129 ml LV ESV BP 78.1 ml BP EF (MOD) 39.5 % Diastolic/Systolic Function Value Units (Range) MV E-wave Vmax 0.4 m/sec MV deceleration [id number] msec MV A-wave Vmax 0.7 m/sec MV E:A ratio 0.6 ratio LV septal e' Vmax 0.1 m/sec LV lateral e' Vmax 0.1 m/sec LV E:e' septal ratio7.2 ratio LV E:e' lateral rati8.1 ratio Aortic Valve Value Units (Range) AR PHT 852 msec AR peak gradient 60 mmHg Tricuspid Valve Value Units (Range) TR Vmax 1.8 m/sec TR peak gradient 13 mmHg RAP 3 mmHg Measurement Trending Name 09/18/2016 LV EDV BP 129 LVIDd (2D) 5.66 LV ESV BP 78.1 LA ESV BP (MOD) 54 LVIDs (2D) 4.41 Wall Motion: Segment Name Rest Base-Anteroseptal Normal Base-Anterior Normal Base-Anterolateral Scarring/Thinning Base-Posterolateral Scarring/Thinning Base-Inferior Hypokinetic Base-Inferoseptal Normal Mid-Anteroseptal Normal Mid-Anterior Normal Mid-Anterolateral Scarring/Thinning Mid-Posterolateral Scarring/Thinning Mid-Inferior Normal Mid-Inferoseptal Normal Cocoa-Septal Normal Cocoa-Anterior Normal Cocoa-Lateral Hypokinetic Cocoa-Inferior Normal Cocoa-Tip Normal This report has been electronically sign ed by: _ Carlos Núñez M.D. 09/18/2016 09:00: 29 Images reviewed and interpretation ronald santos [facility] Cardiac Ultrasound Laboratory Heike Mario MD ECHO ORDERABLES Cardiac Enzymes (09/18/2016 5:50 AM EST) P athologist Signature Troponin-T <0.03 <=0.03 RICHARD JHONY ng/mL [facility] Comment: 0.03 ng/mL: Represents the 99th [...] consensus document of the Joint Society of Cardiology/[place] College o f Cardiology Committee for the redefinition of myocardial infarction. ? ?Journal of the [place] College of [employer]iology 2000; 36: 959-969] CK, Total 66 0 - 200 unit/L [facility] Specimen Anatomical Collection Method Collection Time Receive d Time (Source) Location / / Volume Laterality Blood specimen Venous Draw / 09/18/2016 5:50 AM 2015 7:11 (specimen) Unknown EST AM EST Resulting Agency Comment Spec In Lab Heike Mario MD CHEMISTRY ORDERABLES Performing Organization Address City/State/ZIP [place] [address] Differential, Automated (09/18/2016 5:50 AM EST) P athologist Signature Neutrophils % 59.6 % [facility] Neutr Abs (ANC) 3.95 1.70 - [facility] 6.10 [facility] x10(3)/[facility] LABORATORY Lymphocytes % 26.2 % [facility] Lymphocytes Abs 1.7 0.9 - 3.2 [facility] x10(3)/[facility] LABORATORY Monocytes % 10.0 % [facility] Monocyte Abs 0.7 0.3 - 0.9 [facility] x10(3)/[facility] LABORATORY Eosinophils % 3.2 % [facility] Eosinophils Abs 0.2 0.0 - 0.4 [facility] x10(3)/[facility] LABORATORY Basophils % 0.8 % [facility] Basophils Abs 0.0 0.0 - 0.1 [facility] x10(3)/[facility] LABORATORY Immature Gran % 0.20 % [...] Ann Gran Abs 0.01 0.00 - 0.04 x10(3)/[facility] LABORATORY Specimen Anatomical Collection Method Collection Time Receive d Time (Source) Location / / Volume Laterality Blood specimen 09/18/2016 5:50 AM 016 6:44 (specimen) EST AM EST Resulting Agency Comment Spec In Lab Heike Mario MD HEMATOLOGY ORDERABLES Performing Organization Address City/State/ZIP Code Phon e Number [address] (ABNORMAL) Hemogram (09/18/2016 5:50 AM EST) Analysis Performed At Patho logist Time Signature WBC 6.6 4.0 - 9.5 [facility](3[facility] LABORATORY RBC 4.84 4.58 - RICHARD J[facility]ONY 5.54 [facility] x10(6)/[facility] LABORATORY Hemoglobin 14.0 13.7 - [facility] 16.[facility] gm/dL [facility] Hematocrit 42.0 40.5 - [facility] 48.5 % [facility] MCV 86.8 82.9 - [facility] 93.[address] [facility] LABORATORY MCH 28.9 27.5 - [facility] 32.1 pg [facility] MCHC 33.3 32.0 - [facility] 35.7 gm/dL [facility] Platelets 147 145 - 357 [facility] x10(3)/[facility] LABORATORY RDWSD 46.1 (H) 36.0 - RICHARD JHONY 45.[address] [facility] LABORATORY RDWCV 14.6 (H) 11.4 - [facility] JHONY 13.8 % [facility] MPV 9.9 7.6 - 12.9 [facility] LABORATORY nRBC % Auto 0.0 % [facility] nRBC Abs Auto 0.000 0.000 - [facility] JHONY 0.000 [facility] x10(3)/[facility] LABORATORY Specimen Anatomical Collection Method Collection Time Receive d Time (Source) Location / / Volume Laterality Blood specimen 09/18/2016 5:50 AM 016 6:44 (specimen) EST AM EST Resulting Agency Comment Spec In Lab Heike Mario MD HEMATOLOGY ORDERABLES Performing Organization Address City/State/[place] [address] Basic Metabolic Panel (non-fasting) (09/18/2016 5:50 AM EST) athologist Signature Glucose Lvl 119 65 - 199 [facility] mg/dL [facility] Comment: Diabetes: >=200 mg/dL plus symp toms BUN 14 10 - 20 mg/dL [facility] Creatinine 0.82 0.80 - 1.50 mg/dL [facility] Comment: Please note that the pediatric reference intervals supplied above were not validated at [facility]. Results from pediatri c patients should be interpreted in conjunction to the patient's age, height and muscle mass. Sodium 138 135 - 145 mmol/L [facility] Potassium 4.0 3.5 - 5.0 mmol/L [facility] Comment: Please note: ??Patients with WBC >100,00 0 may have falsely elevated Potassium levels. ??For accurate Potassium quantif ication in these patients send serum separator tube (gold top) for subsequent determinations. ??Contact the Clinical Chemistry Laboratory if there are any qu estions. Chloride 103 98 - 107 mmol/L [facility] CO2 22 22 - 31 mmol/L [facility] Anion Gap 13 5 - 15 mmol/L [facility] Calcium 9.0 8.5 - 10.5 mg/dL [facility] Estimated GFR >60 >=60 [facility] Comment: This estimated GFR (eGFR) value was calc ulated using the MDRD equation which has been validated on patients between t he ages of 18 and 70. The MDRD should not be used to assess kidney function in patients < 18 years of age or in patients with extremes of body mass, or in patients with acute kidney failure. This value should be multiplied by 1.2 f or patients. For further information please copy and past e the following links into your internet browser. [email or web address] [email or web address] [email or web address] Specimen Anatomical Collection Method Collection Time Receive d Time (Source) Location / / Volume Laterality Blood specimen 09/18/2016 5:50 AM 016 6:44 (specimen) EST AM EST Resulting Agency Comment Spec In Lab Heike Mario MD CHEMISTRY ORDERABLES Performing Organization Address City/[facility] Phon e Number [address] (ABNORMAL) APTT (09/18/2016 5:50 AM EST) athologist Signature PTT 144 25 - 35 [facility] (Critical) Pending sale to [facility] LABORATORY Comment: Called by: peter, Read back by: moriah coats, Date/Time:09/18/16 07:15. The recommended therapeutic range for fu ll dose, unfractionated heparin at [facility] is 80 ? 114 seconds. The use of the anti-Xa (heparin) level rather than the PTT is recommended for monitoring anticoagul ation intensity in critically ill patients receiving unfractionated hepari n by continuous IV infusion. Specimen Anatomical Collection Method Collection Time Receive d Time (Source) Location / / Volume Laterality Blood specimen 09/18/2016 5:50 AM 016 6:44 (specimen) EST AM EST Resulting Agency Comment Spec In Lab Heike Mario MD HEMATOLOGY ORDERABLES Performing Organization Address [facility] [place] [address] Lipid panel (fasting) (09/18/2016 5:50 AM EST) P athologist Signature Chol, Total 157 <=199 mg/dL [facility] Comment: Recommendations of the NCEP Adult Treatm ent Panel for the following risk cutoff thresholds for the [place] popul[place] n: Desirable: <200 mg/dL Borderline High: 200-239 mg/dL High: > or = 240 mg/dL Triglycerides 59 <=149 mg/dL [facility] Comment: Reference Range: Normal triglycerides: ??<150 mg/dL Borderline high: ??150-199 mg/dL High: ??200-499 mg/dL Very high: ??>ir=374 mg/dL LOU 2001; 285(19):2247-7811 HDL 79 >=40 mg/dL [facility] Comment: Reference range: ??Low HDL: ?? < 40 mg/dL ??Normal: ?40-60 mg/dL ??Desirable: > 60 mg/dL LOU 2001; 285(19):4444-7315 LDL Cholesterol 66 <=99 mg/dL [facility] Comment: Reference range: ?? Optimal: ?<100 mg/dL ?? Near Optimal/Above Optimal: ?? 100-1 29 mg/dL ?? Borderline high: ?130-159 mg/dL ?? High: ? 160-189 mg/dL ?? Very high: ?>xi=683 mg/dL LOU 2001: 285(19):4105-0255 Chol/HDL Ratio 2.0 ratio [facility] Comment: A Cholesterol to HDL ratio below 4:1 is desirable. ??Studies suggest that increased CAD risk occurs at ratios abov e 5 for females and above 6 for men. ? [place] [employer] Association ??(htt p://www.americanheart.org) ? Gris Int Med, 1994; 121:641 ? AM J Med, 1998; 105(1A):48S Specimen Anatomical Collection Method Collection Time Receive d Time (Source) Location / / Volume Laterality Blood specimen 09/18/2016 5:50 AM 016 6:44 (specimen) EST AM EST Resulting Agency Comment Spec In Lab Heike Mario MD CHEMISTRY ORDERABLES Performing Organization Address City/State/ZIP [place] [address] Prothrombin Time (09/18/2016 5:50 AM EST) athologist Signature PT 13.6 12.0 - 15.0 [facility] LABORATORY Comment: An INR <2.0 indicates adequate [...] be appropriate depending on c linical circumstances. INR 1.0 0.9 - 1.1 [facility] Specimen Anatomical Collection Method Collection Time Receive d Time (Source) Location / / Volume Laterality Blood specimen 09/18/2016 5:50 AM 016 6:44 (specimen) EST AM EST Resulting Agency Comment Spec In Lab Heike Mario MD HEMATOLOGY ORDERABLES Performing Organization Address City/State/ZIP Code Phon e Number [place] [phone]OS[address] XR Chest PA & Lateral (Generic) (09/18/2016 12:12 AM EST) Anatomical Region Laterality Modality Chest N/A Digital Radiography Specimen (Source) Anatomical Location Collection Method / Collectio n Time Received Time / Laterality Volume Impressions 09/18/2016 1:26 AM EST No acute cardiopulmonary findings. Narrative 09/18/2016 1:26 AM EST EXAMINATION: XR CHEST PA AND LATERAL (GENERIC) CLINICAL HISTORY: chest pain TECHNIQUE: Frontal lateral views of the chest COMPARISON: Chest radiograph 04/16/2011 FINDINGS: No focal consolidation the cardiomediast inal silhouette is unchanged. 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 Procedure Note Chris Sethi MD - 09/18/2016Formatti ng of this note might be different from the original. EXAMINATION: XR CHEST PA AND LATERAL (GE NERIC) CLINICAL HISTORY: chest pain TECHNIQUE: Frontal lateral views of the chest COMPARISON: Chest radiograph 04/16/2011 FINDINGS: No focal consolidation the cardiomediast inal silhouette is unchanged. 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 IMPRESSION No acute cardiopulmonary findings. Heike Mario MD IMG DX ORDERABLES Differential, Automated (09/17/2016 11:50 PM EST) P athologist Signature Neutrophils % 69.8 % [facility] Neutr Abs (ANC) 4.50 1.70 - [facility] 6.10 [facility] x10(3)/[facility] LABORATORY Lymphocytes % 18.0 % [facility] Lymphocytes Abs 1.2 0.9 - 3.2 [facility] x10(3)/[facility] LABORATORY Monocytes % 9.1 % [facility] Monocyte Abs 0.6 0.3 - 0.9 [facility] x10(3)/[facility] LABORATORY Eosinophils % 2.2 % [facility] Eosinophils Abs 0.1 0.0 - 0.4 [facility] x10(3)/[facility] LABORATORY Basophils % 0.6 % [facility] Basophils Abs 0.0 0.0 - 0.1 [facility] x10(3)/[facility] LABORATORY Immature Gran % 0.30 % [facility] Comment: Immature granulocytes(IG's)percentage an d absolute count will include metamyelocytes, myelocytes, and promyelo cytes. Blood smears from CBCs yielding IG's will be scanned manually for concor dance. If this scan disagrees with the automated IG or if promyelocytes are not ed, a manual differential will be performed. Lee Ann Gran Abs 0.02 0.00 - 0.04 x10(3)/[facility] LABORATORY Specimen Anatomical Collection Method Collection Time Receive d Time (Source) Location / / Volume Laterality Blood specimen 09/17/2016 11:50 6 (specimen) PM EST 12:11 AM EST Resulting Agency Comment Spec In Lab Heike Mario MD HEMATOLOGY ORDERABLES Performing Organization Address City/State/ZIP [place] [address] (ABNORMAL) Hemogram (09/17/2016 11:50 PM EST) Analysis Performed At Patho logist Time Signature WBC 6.4 4.0 - 9.5 [facility] x10(3)/[facility] LABORATORY RBC 4.81 4.58 - [facility] 5.54 [facility] x10(6)/[facility] LABORATORY Hemoglobin 14.1 13.7 - [facility] 16.5 gm/dL [facility] Hematocrit 41.3 40.5 - RICHARD HUGHESCK 48.5 % [facility] MCV 85.9 82.9 - RICHARD HUGHESCK 93.[address] [facility] LABORATORY MCH 29.3 27.5 - RICHARD HUGHESCK 32.1 pg [facility] MCHC 34.1 32.0 - RICHARD HUGHESCK 35.7 gm/dL [facility] Platelets 151 145 - 357 [facility] x10(3)/[facility] LABORATORY RDWSD 45.7 (H) 36.0 - RICHARD RODRIGUEZCOCK 45.[address] [facility] LABORATORY RDWCV 14.5 (H) 11.4 - RICHARD RODRIGUEZCOCK 13.8 % [facility] MPV 9.7 7.6 - 12.9 RICHARD [address] [facility] LABORATORY nRBC % Auto 0.0 % [facility] nRBC Abs Auto 0.000 0.000 - RICHARD BOOKER 0.000 [facility] x10(3)/[facility] LABORATORY Specimen Anatomical Collection Method Collection Time Receive d Time (Source) Location / / Volume Laterality Blood specimen 09/17/2016 11:50 6 (specimen) PM EST 12:11 AM EST Resulting Agency Comment Spec In Lab Heike Mario MD HEMATOLOGY ORDERABLES Performing Organization Address City/State/ZIP [place] [address] Cardiac Enzymes (09/17/2016 11:50 PM EST) P athologist Signature Troponin-T <0.03 <=0.03 [facility] ng/mL [facility] Comment: 0.03 ng/mL: Represents the 99th [...] consensus document of the Joint Society of Cardiology/[place] [employer] o f [employer] Committee for the redefinition of myocardial infarction. ? ?Journal of the [place] [employer] of Cardiology 2000; 36: 959-969] CK, Total 75 0 - 200 unit/L [facility] Specimen Anatomical Collection Method Collection Time Receive d Time (Source) Location / / Volume Laterality Blood specimen 09/17/2016 11:50 6 (specimen) PM EST 12:11 AM EST Resulting Agency Comment Spec In Lab Heike Mario MD CHEMISTRY ORDERABLES Performing Organization Address City/[facility]/[place] [address] (ABNORMAL) APTT (09/17/2016 11:50 PM EST) P athologist Signature PTT 47 (H) 25 - 35 sec [facility] Comment: The recommended therapeutic range for fu ll dose, unfractionated heparin at [facility] is 80 ? 114 seconds. The use of the anti-Xa (heparin) level rather than the PTT is recommended for monitoring anticoagul ation intensity in critically ill patients receiving unfractionated hepari n by continuous IV infusion. Specimen Anatomical Collection Method Collection Time Receive d Time (Source) Location / / Volume Laterality Blood specimen 09/17/2016 11:50 6 (specimen) PM EST 12:11 AM EST Resulting Agency Comment Spec In Lab Heike Mario MD HEMATOLOGY ORDERABLES Performing Organization Address City/[facility]/[place] [address] Green Tube HOLD (09/17/2016 5:10 PM EST) P athologist Signature Green Hold Sample in [facility] LABORATORY Specimen Anatomical Collection Method Collection Time Receive d Time (Source) Location / / Volume Laterality Blood specimen Venous Draw / 09/17/2016 5:10 PM 2015 5:46 (specimen) Unknown EST PM EST Heike Mario MD CHEMISTRY ORDERABLES Performing Organization Address City/State/[place] [address] Differential, Automated (09/17/2016 5:10 PM EST) P athologist Signature Neutrophils % 72.0 % [facility] LABORATORY Neutr Abs (ANC) 5.71 1.70 - [facility] 6.10 [facility] x10(3)/[facility] LABORATORY Lymphocytes % 14.6 % [facility] LABORATORY Lymphocytes Abs 1.2 0.9 - 3.2 [facility] x10(3)/[facility] LABORATORY Monocytes % 10.8 % [facility] LABORATORY Monocyte Abs 0.9 0.3 - 0.9 [facility] x10(3)/[facility] LABORATORY Eosinophils % 2.1 % [facility] LABORATORY Eosinophils Abs 0.2 0.0 - 0.4 [facility] x10(3)/[facility] LABORATORY Basophils % 0.4 % [facility] LABORATORY Basophils Abs 0.0 0.0 - 0.1 [facility] x10(3)/[facility] LABORATORY Immature Gran % 0.10 % [facility] LABORATORY Comment: Immature granulocytes(IG's)percentage an d absolute count will include metamyelocytes, myelocytes, and promyelo cytes. Blood smears from CBCs yielding IG's will be scanned manually for concor dance. If this scan disagrees with the automated IG or if promyelocytes are not ed, a manual differential will be performed. Lee [place] Gran Abs 0.01 0.00 - 0.04 x10(3)/[facility] LABORATORY Specimen Anatomical Collection Method Collection Time Receive d Time (Source) Location / / Volume Laterality Blood specimen 09/17/2016 5:10 PM 016 5:45 (specimen) EST PM EST Resulting Agency Comment Spec In Lab Heike Mario MD HEMATOLOGY ORDERABLES Performing Organization Address City/State/ZIP Code Phon e Number [place] [id number] HOSP[address] LAB[address]ORY [address] (ABNORMAL) Hemogram (09/17/2016 5:10 PM EST) Analysis Performed At Patho logist Time Signature WBC 7.9 4.0 - 9.5 [facility] x10(3)/[facility] LABORATORY RBC 5.01 4.58 - [facility] JHONY 5.54 [facility] x10(6)/[facility] LABORATORY Hemoglobin 14.8 13.7 - [facility] gm/dL [facility] LABORATORY Hematocrit 42.8 40.5 - [facility] 48.5 % [facility] LABORATORY MCV 85.4 82.9 - [facility] 93.[address] [facility] LABORATORY MCH 29.5 27.5 - [facility] 32.1 pg [facility] LABORATORY MCHC 34.6 32.0 - [facility] 35.7 gm/dL [facility] LABORATORY Platelets 153 145 - 357 [facility] x10(3)/[facility] LABORATORY RDWSD 44.5 36.0 - [facility] 45.[address] [facility] LABORATORY RDWCV 14.4 (H) 11.4 - [facility] 13.8 % [facility] LABORATORY MPV 10.0 7.6 - 12.9 [facility] LABORATORY nRBC % Auto 0.0 % [facility] LABORATORY nRBC Abs Auto 0.000 0.000 - [facility] 0.000 [facility] x10(3)/[facility] LABORATORY Specimen Anatomical Collection Method Collection Time Receive d Time (Source) Location / / Volume Laterality Blood specimen 09/17/2016 5:10 PM 016 5:45 (specimen) EST PM EST Resulting Agency Comment Spec In Lab Heike Mario MD HEMATOLOGY ORDERABLES Performing Organization Address City/State/ZIP [place] [address] (ABNORMAL) APTT (09/17/2016 5:10 PM EST) P athologist Signature PTT 52 (H) 25 - 35 sec [facility] LABORATORY Comment: The recommended therapeutic range for fu ll dose, unfractionated heparin at [facility] is 80 ? 114 seconds. The use of the anti-Xa (heparin) level rather than the PTT is recommended for monitoring anticoagul ation intensity in critically ill patients receiving unfractionated hepari n by continuous IV infusion. Specimen Anatomical Collection Method Collection Time Receive d Time (Source) Location / / Volume Laterality Blood specimen 09/17/2016 5:10 PM 016 5:45 (specimen) EST PM EST Resulting Agency Comment Spec In Lab Heike Mario MD HEMATOLOGY ORDERABLES Performing Organization Address City/State/[place] [address] (ABNORMAL) Phenytoin level, total (09/17/2016 3:30 PM EST) athologist Signature Phenytoin Lvl 6.0 (L) 10.0 - [facility] 20.0 mg/L [facility] LABORATORY Comment: Theraputic range: ??10-20 mg/L Toxic: ??> 25 mg/L Patients with renal dysfunction (e.g.cre atinine clearance < 30 mls/min) may show falsely elevated results due to acc umulation of metabolites in renal failure Specimen Anatomical Collection Method Collection Time Receive d Time (Source) Location / / Volume Laterality Blood specimen No Charge / 09/17/2016 3:30 PM 016 5:01 (specimen) Unknown EST PM EST Resulting Agency Comment Spec In Lab Ryanne Chen MD CHEMISTRY ORDERABLES Performing Organization Address City/[facility]/ZIP Code Phon e Number [address] Gold Tube HOLD (09/17/2016 3:30 PM EST) athologist Signature Gold Hold Sample in [facility]. [facility] LABORATORY Specimen Anatomical Collection Method Collection Time Receive d Time (Source) Location / / Volume Laterality Blood specimen No Charge / 09/17/2016 3:30 PM 016 3:58 (specimen) Unknown EST PM EST Ryanne Chen MD CHEMISTRY ORDERABLES Performing Organization Address City/[facility]/ZIP Code Phon e Number [address] Differential, Automated (09/17/2016 3:30 PM EST) athologist Signature Neutrophils % 65.3 % [facility] LABORATORY Neutr Abs (ANC) 4.53 1.70 - [facility] 6.10 [facility] x10(3)/[facility] LABORATORY Lymphocytes % 20.7 % [facility] LABORATORY Lymphocytes Abs 1.4 0.9 - 3.2 [facility] x10(3)/[facility] LABORATORY Monocytes % 10.1 % [facility] LABORATORY Monocyte Abs 0.7 0.3 - 0.9 [facility] x10(3)/[facility] LABORATORY Eosinophils % 2.9 % [facility] LABORATORY Eosinophils Abs 0.2 0.0 - 0.4 [facility] x10(3)/[facility] LABORATORY Basophils % 0.7 % [facility] LABORATORY Basophils Abs 0.0 0.0 - 0.1 [facility] x10(3)/[facility] LABORATORY Immature Gran % 0.30 % [facility] LABORATORY Comment: Immature granulocytes(IG's)percentage an d absolute count will include metamyelocytes, myelocytes, and promyelo cytes. Blood smears from CBCs yielding IG's will be scanned manually for concor dance. If this scan disagrees with the automated IG or if promyelocytes are not ed, a manual differential will be performed. [place] Gran Abs 0.02 0.00 - 0.04 x10(3)/[facility] LABORATORY Specimen Anatomical Collection Method Collection Time Receive d Time (Source) Location / / Volume Laterality Blood specimen 09/17/2016 3:30 PM 016 3:58 (specimen) EST PM EST Resulting Agency Comment Spec In Lab Ryanne Chen MD HEMATOLOGY ORDERABLES Performing Organization Address City/State/ZIP [place] [address] (ABNORMAL) Hemogram (09/17/2016 3:30 PM EST) Analysis Performed At Patho logist Time Signature WBC 6.9 4.0 - 9.5 [facility] x10(3)/[facility] LABORATORY RBC 5.26 4.58 - [facility] 5.54 [facility] x10(6)/[facility] LABORATORY Hemoglobin 15.7 13.7 - [facility] 16.5 gm/dL [facility] LABORATORY Hematocrit 45.9 40.5 - [facility] 48.5 % [facility] LABORATORY MCV 87.3 82.9 - [facility] 93.[address] [facility] LABORATORY MCH 29.8 27.5 - [facility] 32.1 pg [facility] LABORATORY MCHC 34.2 32.0 - [facility] 35.7 gm/dL [facility] LABORATORY Platelets 159 145 - 357 [facility] x10(3)/[facility] LABORATORY RDWSD 46.2 (H) 36.0 - [facility] 45.[address] [facility] LABORATORY RDWCV 14.6 (H) 11.4 - [facility] 13.8 % [facility] LABORATORY MPV 9.8 7.6 - 12.9 [facility] LABORATORY nRBC % Auto 0.0 % [facility] LABORATORY nRBC Abs Auto 0.000 0.000 - [facility] 0.000 [facility] x10(3)/[facility] LABORATORY Specimen Anatomical Collection Method Collection Time Receive d Time (Source) Location / / Volume Laterality Blood specimen 09/17/2016 3:30 PM 016 3:58 (specimen) EST PM EST Resulting Agency Comment Spec In Lab Ryanne Chen MD HEMATOLOGY ORDERABLES Performing Organization Address City/State/[place] [address] (ABNORMAL) Basic Metabolic Panel (non-fasting) (09/17/2016 3:30 PM EST) athologist Signature Glucose Lvl 112 65 - 199 [facility] mg/dL [facility] LABORATORY Comment: Diabetes: >=200 mg/dL plus symp toms BUN 15 10 - 20 mg/dL [facility] LABORATORY Creatinine 0.92 0.80 - 1.50 mg/dL [facility] LABORATORY Comment: Please note that the pediatric reference intervals supplied above were not validated at [facility]. Results from pediatri c patients should be interpreted in conjunction to the patient's age, height and muscle mass. Sodium 139 135 - 145 mmol/L [facility] LABORATORY Potassium 4.2 3.5 - 5.0 mmol/L [facility] LABORATORY Comment: Please note: ??Patients with WBC >100,00 0 may have falsely elevated Potassium levels. ??For accurate Potassium quantif ication in these patients send serum separator tube (gold top) for subsequent determinations. ??Contact the Clinical Chemistry Laboratory if there are any qu estions. Chloride 103 98 - 107 mmol/L [facility] LABORATORY CO2 21 (L) 22 - 31 mmol/L [facility] LABORATORY Anion Gap 15 5 - 15 mmol/L [facility] LABORATORY Calcium 9.5 8.5 - 10.5 mg/dL [facility] LABORATORY Estimated GFR >60 >=60 [facility] LABORATORY Comment: This estimated GFR (eGFR) value was calc ulated using the MDRD equation which has been validated on patients between t he ages of 18 and 70. The MDRD should not be used to assess kidney function in patients < 18 years of age or in patients with extremes of body mass, or in patients with acute kidney failure. This value should be multiplied by 1.2 f or patients. For further information please copy and past e the following links into your internet browser. [email or web address] [email or web address] [email or web address] [email or web address] Specimen Anatomical Collection Method Collection Time Receive d Time (Source) Location / / Volume Laterality Blood specimen 09/17/2016 3:30 PM 016 3:58 (specimen) EST PM EST Resulting Agency Comment Spec In Lab Ryanne Chen MD CHEMISTRY ORDERABLES Performing Organization Address City/State/ZIP [place] [address] Cardiac Enzymes (09/17/2016 3:30 PM EST) P athologist Signature Troponin-T <0.03 <=0.03 [facility] ng/mL [facility] LABORATORY Comment: 0.03 ng/mL: Represents the 99th [...] consensus document of the Joint Society of Cardiology/[employer] Committee for the redefinition of myocardial infarction. ? ?Journal of the [employer] 2000; 36: 959-969] CK, Total 117 0 - 200 unit/L [facility] LABORATORY Specimen Anatomical Collection Method Collection Time Receive d Time (Source) Location / / Volume Laterality Blood specimen 09/17/2016 3:30 PM 016 3:58 (specimen) EST PM EST Resulting Agency Comment Spec In Lab Ryanne Chen MD CHEMISTRY ORDERABLES Performing Organization Address City/[facility] [place] [address] Blue Tube HOLD (09/17/2016 3:30 PM EST) P athologist Signature Blue Hold Sample in [facility]. [facility] LABORATORY Specimen Anatomical Collection Method Collection Time Receive d Time (Source) Location / / Volume Laterality Blood specimen 09/17/2016 3:30 PM 016 3:58 (specimen) EST PM EST Ryanne Chen MD HEMATOLOGY ORDERABLES Performing Organization Address City/[facility] [place] [address] documented in this encounter Visit Diagnoses Not on filedocumented in this encounter Admitting Diagnoses Diagnosis Unstable angina Intermediate coronary syndrome documented in this encounter Administered Medications Inactive Administered Medications - up to 3 most recent administrations Medication Order MAR Action Action Date Dose Rate Site acetaminophen (TYLENOL) tablet 650 Given 09/19/2016 6:14 AM EST 650 mg mg 650 mg, Oral, EVERY 4 HOURS PRN, Starting on 09/18/16 at 2155, Until 09/19/16 at 1758, Pain, Maximum dose of acetaminophen is 4000 mg from all sources in 24 hours., Routine Given 09/18/2016 10:08 PM EST 650 mg aspirin EC tablet 81 mg Given 09/19/2016 8:19 AM EST 81 mg 81 mg, Oral, DAILY, First dose on Wed09/18/16 at 0900, Until Discontinued, Routine Given 09/18/2016 8:53 AM EST 81 mg atorvastatin (LIPITOR) tablet 80 mg Given 09/18/2016 1:59 AM EST 80 mg 80 mg, Oral, EVERY EVENING, First dose on Wed09/18/16 at 0030, Until Discontinued, Routine citalopram (CeleXA) tablet 40 mg Given 09/19/2016 8:15 AM EST 40 mg 40 mg, Oral, DAILY, First dose on Wed09/18/16 at 0900, Until Discontinued, Routine Given 09/18/2016 8:53 AM EST 40 mg gabapentin (NEURONTIN) capsule 300 mg Given 09/19/2016 2:01 PM EST 300 mg 300 mg, Oral, 3 TIMES DAILY, First dose on Wed09/17/16 at 2349, Until Discontinued, Routine Given 09/19/2016 8:19 AM EST 300 mg Given 09/18/2016 9:31 PM EST 300 mg iohexol (OMNIPAQUE) 350 mg/mL solution Given 09/18/2016 4:32 PM EST 75 mLs ONCE PRN, Starting on Wed09/18/16 at 1632, Until Wed09/18/16 at 1633, Cath (Intra-Procedure), Routine lamoTRIgine (LaMICtal) tablet 150 mg Given 09/19/2016 8:17 AM EST 150 mg 150 mg, Oral, 2 TIMES DAILY, First dose on Wed09/17/16 at 2349, Until Discontinued, Routine Given 09/18/2016 10:32 PM EST 150 mg Given 09/18/2016 8:53 AM EST 150 mg lisinopril (PRINIVIL;ZESTRIL) tablet 5 m g Given 09/18/2016 8:53 AM EST 5 mg 5 mg, Oral, DAILY, First dose on Wed09/18/16 at 0900, Until Discontinued, Routine methyl salicylate-menthol (BENGAY) 15-10 % cream Given 09/19/2016 2:00 PM EST Topical (Top), 2 TIMES DAILY, First dose on Wed09/19/16 at 1300, Until Discontinued mometasone (ASMANEX) aerosol 1 puff Given 09/18/2016 10:32 PM EST 1 puff 1 puff (220 mcg), Inhalation, NIGHTLY, First dose on Wed09/18/16 at 2100, Until Discontinued, Fluticasone changed per [employer] approved therapeutic interchange policy, Routine nitroGLYcerin (NITROSTAT) SL tablet 0.4 mg Given 09/17/2016 4:58 PM EST 0.4 mg 0.4 mg, Sublingual, EVERY 5 MIN PRN, 3 doses, Starting on Madhuri 09/17/16 at 1654, Until 09/19/16 at 1758, Chest pain, SL nitroglycerin may be repeated every 5 minutes as needed up to 3 doses, STAT nitroGLYcerin (NITROSTAT) SL tablet 0.4 mg Given 09/18/2016 10:49 AM EST 0.4 mg 0.4 mg, Sublingual, EVERY 5 MIN PRN, Starting on Madhuri 09/17/16 at 2347, Until 09/19/16 at 1758, Chest pain, May repeat every 5 minutes for a total of three doses. Notify provider if chest pain not relieved with nitroglycerin. Do not administer nitroglycerin if the patinet has received or taken phosphodiesterase (PDE-5) inhibitors such as sildenafil, tadalafil or vardenafil within the last 24 to 72 hours., Routine Given 09/18/2016 10:43 AM EST 0.4 mg pantoprazole (PROTONIX) tablet 20 mg Given 09/19/2016 8:16 AM EST 20 mg 20 mg, Oral, DAILY, First dose on Wed09/18/16 at 0900, Until Discontinued, DO NOT CRUSH OR OPEN, Routine Given 09/18/2016 8:53 AM EST 20 mg phenytoin (DILANTIN) ER capsule 100 mg Given 09/19/2016 8:20 AM EST 100 mg 100 mg, Oral, 2 TIMES DAILY, First dose on Wed09/17/16 at 2349, Until Discontinued, Routine Given 09/18/2016 9:33 PM EST 100 mg Given 09/18/2016 8:53 AM EST 100 mg phenytoin (DILANTIN) ER capsule 100 mg Given 09/18/2016 9:32 PM EST 100 mg 100 mg, Oral, NIGHTLY, First dose on Wed16 at 2349, Until Discontinued, In addition to 100mg BID dose, Routine Given 09/18/2016 12:18 AM EST 100 mg sodium chloride 0.9 % flush 5 mL Given 09/19/2016 8:22 AM EST 5 mLs 5 mL, Intravenous, 2 TIMES DAILY, First dose on Madhuri 09/17/16 at 2349, Until Discontinued, Routine Given 09/18/2016 9:33 PM EST 5 mLs Given 09/18/2016 9:00 AM EST 5 mLs sodium chloride 0.9 % flush 5 mL Given 09/18/2016 11:47 AM EST 5 mLs 5 mL, Intravenous, EVERY 12 HOURS, First dose on Madhuri 09/17/16 at 2349, Until Discontinued, Routine Given 09/18/2016 12:18 AM EST 5 mLs documented in this encounter Active and Recently Administered Medications Times are shown in EST. Scheduled Medication Order 09/17/2016 09/18/2016 09/19/2016 aspirin EC tablet 81 mg 0853 (Given - Pr ovider: Sabrina Kovacs RN)1551 (DEC Hold - Provider: Admin Adt - Reason: Transfer to a Procedural area)1758 (DEC Unhold - Provider: Admin Adt) 0819 (Given - Provider: Iva Mccray RN) 81 mg, Oral, DAILY, First dose on Wed at 0900, Until Discontinued, Routine aspirin tablet 325 mg (COMPLETED) 1146 ( Given - Provider: Sabrina Kovacs RN) 325 mg, Oral, ONCE, 1 dose, Wed09/18/16 at 1128, Routine atorvastatin (LIPITOR) tablet 80 mg 0159 (Given - Provider: Maya Pantoja RN)1551 (DEC Hold - Provider: Admin Adt - Reason: Transfer to a Procedural area)1700 (Automatically Held - Provider: Admin Adt)1758 (DEC Unhold - Provider: Admin Adt) 80 mg, Oral, EVERY EVENING, First dose o n Wed09/18/16 at 0030, Until Discontinued, Routine citalopram (CeleXA) tablet 40 mg 0853 (G iven - Provider: Sabrina Kovacs RN)1551 (DEC Hold - Provider: Admin Adt - Reason: Transfer to a Procedural area)1758 (DEC Unhold - Provider: Admin Adt) 0815 (Given - Provider: Iva Mccray RN) 40 mg, Oral, DAILY, First dose on Wed at 0900, Until Discontinued, Routine diaZEPam (VALIUM) tablet 5 mg (COMPLETED) 1534 (Given - Provider: Sabrina Kovacs RN) 5 mg, Oral, ONCE, 1 dose, Wed09/18/16 a t 1159, Cath (Day of Procedure), Routine diphenhydrAMINE (BENADRYL) capsule 25 mg (COMPLETED) 153 (Given - Provider: aSbrina Kovacs, TRES) 25 mg, Oral, ONCE, 1 dose, Wed09/18/16 at 1159, Cath (Day of Procedure), Routine gabapentin (NEURONTIN) capsule 300 mg 00 14 (Given - Provider: Maya Pantoja RN)0853 (Given - Provider: Sabrina Kovacs RN)1518 (Given - Provider: Sabrina Kovacs RN)155 ([facility] Hold - Provider: Admin Adt - Reason: Transfer to a Procedural area) 0819 (Given - Provider: Iva crook RN)1401 (Given - Provider: Constance Cobb RN) 300 mg, Oral, 3 TIMES DAILY, First dose on Wed09/17/16 at 2349, Until Discontinued, Routine 175 ([facility] Unhold - Provider: Admin Adt)2130 (Given - Provider: Johanna Garcia, TRES) lamoTRIgine (LaMICtal) tablet 150 mg (COMPLETED) 2143 (Given - Provider: Maya Pantoja RN - Comment: Remaining 50mg to complete dose for total 150mg finally arrived.) 150 mg, Oral, ONCE, 1 dose, Wed09/17/16 at 2000, Routine lamoTRIgine (LaMICtal) tablet 150 mg 2349 (Not Given - Provider: Maya Pantoja RN - Reason: See comment - Comment: Pt already previously given dose down in ED [facility].) 0853 (Given - Provider: Sabrina conn RN)1551 ([facility] Hold - Provider: Admin Adt - Reason: Transfer to a Procedural area)175 ([facility] Unhold - Provider: Admin Adt)2231 (Given - Provider: Johanna Garcia RN) 0817 (Given - Provider: Iva Mccray RN) 150 mg, Oral, 2 TIMES DAILY, First dose on Wed09/17/16 at 2349, Until Discontinued, Routine lisinopril (PRINIVIL;ZESTRIL) tablet 5 mg 0853 (Given - Provider: Sabrina Kovacs, TRES)1551 ([facility] Hold - Provider: Admin Adt - Reason: Transfer to a Procedural area)1758 ([facility] Unhold - Provider: Admin Adt) 0811 (Hold - Provider: Constance Cobb, RN - Reason: See comment - Comment: due to creatinine bump per MD.) 5 mg, Oral, DAILY, First dose on Wed at 0900, Until Discontinued, Routine methyl salicylate-menthol (BENGAY) 15-10 % cream 1400 (Given - Provider: Constance Cobb, RN) Topical (Top), 2 TIMES DAILY, First dose on Wed09/19/16 at 1300 mometasone (ASMANEX) aerosol 1 puff 1551 ([facility] Hold - Provider: Admin Adt - Reason: Transfer to a Procedural area)175 ([facility] Unhold - Provider: Admin Adt)2232 (Given - Provider: Johanna Garcia RN) 1 puff (220 mcg), Inhalation, NIGHTLY, F irst dose on Wed09/18/16 at 2100, Until Discontinued, Fluticasone changed per P[employer] approved therapeutic interchange policy, Routine morphine 4 mg/mL carpuject 5 mg (COMPLETED) 1728 (Give n - Provider: Yanira Medina RN) 5 mg, Intravenous, ONCE, 1 dose, Wed09/17/16 at 1728, STAT ondansetron (ZOFRAN) injection 4 mg (COMPLETED) 1654 ( Given - Provider: Yanira Medina RN) 4 mg, Intravenous, ONCE, 1 dose, Wed09/17/16 at 1653, STAT pantoprazole (PROTONIX) tablet 20 mg 085 3 (Given - Provider: Sabrina Kovacs RN)1551 ([facility] Hold - Provider: Admin Adt - Reason: Transfer to a Procedural area)1758 ([facility] Unhold - Provider: Admin Adt) 0816 (Given - Provider: Iva Mccray RN) 20 mg, Oral, DAILY, First dose on Wed at 0900, Until Discontinued, DO NOT CRUSH OR OPEN, Routine phenytoin (DILANTIN) ER capsule 100 mg 0 018 (Given - Provider: Maya Pantoja RN)0853 (Given - Provider: Sabrina Kovacs, TRES)155 ([facility] Hold - Provider: Admin Adt - Reason: Transfer to a Procedural area)175 ([facility] Unhold - Provider: Admin Adt)2132 (Given - Provider: Johanna Garcia, TRES) 0820 (Given - Provider: Iva Mccray, TRES) 100 mg, Oral, 2 TIMES DAILY, First dose on Madhuri 09/17/16 at 2349, Until Discontinued, Routine phenytoin (DILANTIN) ER capsule 100 mg 0 018 (Given - Provider: Maya Pantoja RN)155 ([facility] Hold - Provider: Admin Adt - Reason: Transfer to a Procedural area)1757 ([facility] Unhold - Provider: Admin Adt)2131 (Given - Provider: Johanna Garcia RN) 100 mg, Oral, NIGHTLY, First dose on Madhuri 09/17/16 at 2349, Until Discontinued, In addition to 100mg BID dose, Routine phenytoin (DILANTIN) ER capsule 200 mg (COMPLETED) 182 6 (Given - Provider: Yanira Medina RN) 200 mg, Oral, ONCE, 1 dose, Madhuri 09/17/16 at 1817, Routine prochlorperazine (COMPAZINE) injection 10 mg (COMPLETE D) 1747 (Given - Provider: Yanira Medina RN) 10 mg, Intravenous, ONCE, 1 dose, Madhuri 09/17/16 at 1741, STAT sodium chloride 0.9 % flush 5 mL 0018 (G iven - Provider: Maya Pantoja RN)0900 (Given - Provider: Sabrina Kovacs RN)155 ([facility] Hold - Provider: Admin Adt - Reason: Transfer to a Procedural area)175 ([facility] Unhold - Provider: Admin Adt)213 (Given - Provider: Johanna Garcia RN) 0822 (Given - Provider: Iva Mccray RN) 5 mL, Intravenous, 2 TIMES DAILY, First dose on Madhuri 09/17/16 at 2349, Until Discontinued, Routine sodium chloride 0.9 % flush 5 mL 0018 (G iven - Provider: Maya Pantoja RN)1147 (Given - Provider: Sabrina Kovacs, TRES)1551 (DEC Hold - Provider: Admin Adt - Reason: Transfer to a Procedural area)1758 (DEC Unhold - Provider: Admin Adt) 1149 (Not Given - Provider: Constance Cobb RN - Reason: See comment - Comment: flushed earlier and other IV infusing) 5 mL, Intravenous, EVERY 12 HOURS, First dose on Madhuri 09/17/16 at 2349, Until Discontinued, Routine 2349 (Not Given - Provider: Johanna Garcia RN - Reason: See comment - Comment: given earlier) sodium chloride 0.9% 500 mL IV bolus (COMPLETED) 1012 (Given - Provider: Constance Cobb RN) Intravenous, ONCE, 1 dose, 09/19/16 at 1030 traZODone (DESYREL) tablet 50 mg (COMPLETED) 0257 (Given - Provider: Johanna Garcia RN) 50 mg, Oral, ONCE, 1 dose, 09/19/16 at 0315, Routine Continuous Medication Order 09/17/2016 09/18/2016 09/19/2016 heparin 25,000 units in dextrose 5% 500 mL infusion (C ANCELED) 1715 (New Bag - Provider: Yanira Medina, TRES)1847 (Rate/Dose Verify - Provider: Yanira Medina RN) 0-5,000 Units/hr (0-100 mL/hr), Intraven ous, at 0-100 mL/hr, CONTINUOUS, Starting Madhuri 09/17/16 at 1659, Until Madhuri 09/17/16 at 2347, BEGIN infusion at 800 units per hr (12 units/kg/hr). MAX INITIAL infus ion rate is 1,000 units/hr. Target PTT = 80 - 114 seconds Start adjustment schedule 6 hours after starting infusion. If PTT is: - less than 60 seconds, Administer PRN bolus and increase rate by 250 unit s per hr (4 units/kg/hr) - 60 - 79 secon ds, Administer PRN bolus and increase rate by 150 units per hr (2 units/kg/hr) - 80 - 114 seconds, No Change - 115 - 129 seconds, decrease rate by 50 units per hr ( 1 units/kg/hr) - 130 - 145 seconds, s top infusion for 30 minutes, then decrease rate by 150 units per hr (2 units/kg/hr) - Greater than 145 seconds, stop infusion for 60 minutes, then decrease rate b y 200 units per hour (3 units/kg/hr) Rep eat aPTT 6 hours after initiating heparin. Then 6 hours after each dose adjustment. When 2 consecutive aPTT within target range of 80 - 114 seconds, change aPTT t o once every 24 hours with A.M. labs josefina mcmullen on heparin. RN to order required aPTT - Per Protocol, Routine heparin 25,000 units in dextrose 5% 500 mL infusion (CANCELE D) 0014 (New Bag - Provider: Maya Pantoja RN)0042 (Rate/Dose Change - Provider: Maya Pantoja RN)0717 (Rate/Dose Change - Provider: Maya Pantoja RN)1551 (MAR Hold - Provider: Admin Adt - Reason: Transfer to a Procedural area) 0-5,000 Units/hr (0-100 mL/hr), Intraven ous, at 0-100 mL/hr, CONTINUOUS, Starting Madhuri 09/17/16 at 2349, Until 09/19/16 at 1230, BEGIN infusion at 800 units per hr (12 units/kg/hr). MAX INITIAL infus 1758 (DEC Unhold - Provider: Admin Adt) ion rate is 1,000 units/hr. Target PTT = 80 - 114 seconds Start adjustment schedule 6 hours after starting infusion. If PTT is: - less than 60 seconds, Administer PRN bolus and increase rate by 250 unit s per hr (4 units/kg/hr) - 60 - 79 secon ds, Administer PRN bolus and increase rate by 150 units per hr (2 units/kg/hr) - 80 - 114 seconds, No Change - 115 - 129 seconds, decrease rate by 50 units per hr ( 1 units/kg/hr) - 130 - 145 seconds, s top infusion for 30 minutes, then decrease rate by 150 units per hr (2 units/kg/hr) - Greater than 145 seconds, stop infusion for 60 minutes, then decrease rate b y 200 units per hour (3 units/kg/hr) Rep eat aPTT 6 hours after initiating heparin. Then 6 hours after each dose adjustment. When 2 consecutive aPTT within target range of 80 - 114 seconds, change aPTT t o once every 24 hours with A.M. labs josefina mcmullen on heparin. RN to order required aPTT - Per Protocol, Routine sodium chloride 0.9% infusion () 1202 (New Bag - Provider: Sabrina Kovacs RN) 150 mL/hr, at 150 mL/hr, Intravenous, CO NTINUOUS, Starting Wed09/18/16 at 1159, Until Wed09/18/16 at 1558, Cath (Day of Procedure) sodium chloride 0.9% infusion () 1705 (Continued Bag - Provider: Vesta Hunter RN) 100 mL/hr, at 100 mL/hr, Intravenous, CO NTINUOUS, Starting Wed09/18/16 at 1715, Until Wed09/18/16 at 2014, Recovery (Recovery-Hospital Unit) PRN Medication Order 09/17/2016 09/18/2016 09/19/2016 acetaminophen (TYLENOL) tablet 650 mg 22 08 (Given - Provider: Johanna Garcia, TRES) 0614 (Given - Provider: Johanna Garcia RN) 650 mg, Oral, EVERY 4 HOURS PRN, Startin g 09/18/16 at 2155, Until 09/19/16 at 1758, Pain, Maximum dose of acetaminophen is 4000 mg from all sources in 24 hours., Routine cyclobenzaprine (FLEXERIL) tablet 5 mg 1 551 (DEC Hold - Provider: Admin Adt - Reason: Transfer to a Procedural area)1758 (DEC Unhold - Provider: Admin Adt) 5 mg, Oral, NIGHTLY PRN, Starting Madhuri at 2347, Until 09/19/16 at 1758, Muscle spasms, Routine heparin (porcine) injection 0-4,000 Units (CANCELED) 0042 (Given - Provider: Maya Pantoja RN)1551 (DEC Hold - Provider: Admin Adt - Reason: Transfer to a Procedural area)1758 (DEC Unhold - Provider: Admin Adt) 0-4,000 Units, Intravenous, BOLUS PER CARITO NANCE PROTOCOL, Starting Madhuri 09/17/16 at 2347, Until 09/19/16 at 1230, Per Protocol, START ADJUSTMENT SCHEDULE 6 HOURS AFTER STARTING INFUSION aPTT Betwee n 60 - 79 seconds: Bolus 2,000 units MAX BOLUS 2,000 units. aPTT Less than 60 seconds: Bolus 4,000 units MAX BOLUS 4,000 units. Increase infusion and recheck aPTT in 6 hours. , Routine iohexol (OMNIPAQUE) 350 mg/mL solution (CANCELED) 1632 (Given - Provider: Chavo Lawton II, MD) ONCE PRN, Starting 09/18/16 at 1632, Until 09/18/16 at 1633, Cath (Intra-Procedure), Routine lidocaine (XYLOCAINE) 10 mg/mL (1 %) injection 3 mg 1551 (DEC Hold - Provider: Admin Adt - Reason: Transfer to a Procedural area)1758 ([facility] Unhold - Provider: Admin Adt) 3 mg (0.3 mL), Subcutaneous, ONCE PRN, 1 dose, Starting Madhuri 09/17/16 at 2347, Until 09/19/16 at 1758, for discomfort with PIV insertion, Routine lidocaine (XYLOCAINE) 10 mg/mL (1 %) injection 3 mg 1551 ([facility] Hold - Provider: Admin Adt - Reason: Transfer to a Procedural area)1758 ([facility] Unhold - Provider: Admin Adt) 3 mg (0.3 mL), Subcutaneous, ONCE PRN, 1 dose, Starting Madhuri 09/17/16 at 2347, Until 09/19/16 at 1758, for discomfort with PIV insertion, Routine nitroGLYcerin (NITROSTAT) SL tablet 0.4 mg 1658 (Given - Provider: Yanira Medina RN) 1551 (DEC Hold - Provider: Admin Adt - R luigi: Transfer to a Procedural area)1758 (DEC Unhold - Provider: Admin Adt) 0.4 mg, Sublingual, EVERY 5 MIN PRN, 3 d oses, Starting Madhuri 09/17/16 at 1654, Until 09/19/16 at 1758, Chest pain, SL nitroglycerin may be repeated every 5 minutes as needed up to 3 doses, STAT nitroGLYcerin (NITROSTAT) SL tablet 0.4 mg 1043 (Given - Provider: Sabrina Kovacs, TRES)1049 (Given - Provider: Sabrina Kovacs, TRES)1551 ([facility] Hold - Provider: Admin Adt - Reason: Transfer to a Procedural area)1758 ([facility] Unhold - Provider: Admin Adt) 0.4 mg, Sublingual, EVERY 5 MIN PRN, Sta rting Madhuri 09/17/16 at 2347, Until 09/19/16 at 1758, Chest pain, May repeat every 5 minutes for a total of three doses. Notify provider if chest pain not relie vik with nitroglycerin. Do not administe r nitroglycerin if the patinet has received or taken phosphodiesterase (PDE-5) inhibitors such as sildenafil, tadalafil or vardenafil within the last 24 to 72 hours., Routine sodium chloride 0.9 % flush 5-20 mL 1551 ([facility] Hold - Provider: Admin Adt - Reason: Transfer to a Procedural area)1758 ([facility] Unhold - Provider: Admin Adt) 5-20 mL, Intravenous, EVERY 1 MIN PRN, S tarting Madhuri 09/17/16 at 2347, Until 09/19/16 at 1758, flush, Flush pertains to all indwelling lines. Flush per protocol found in the job aid using the link provided on this medication record., Routine sodium chloride 0.9 % flush 5-20 mL 1551 ([facility] Hold - Provider: Admin Adt - Reason: Transfer to a Procedural area)1758 ([facility] Unhold - Provider: Admin Adt) 5-20 mL, Intravenous, EVERY 1 MIN PRN, S tarting Madhuri 09/17/16 at 2347, Until 09/19/16 at 1758, flush, Flush pertains to all indwelling lines. Flush per protocol found in the job aid using the link provided on this medication record., Routine documented in this encounter Care Teams Finger Buff Sewer Relationship Specialty Start Date End Date Aissatou Briggs APRN PCP - General Internal Medicine 07/29/16 [address] [place] [address] documented as of this encounter
--- OUTSIDE RECORDS SUMMARY | 2022-08-15 01:35 | XMS_ITS | Encounter Summary ---
:1955 Author Organization [facility] [place] [address] Care Team Providers Name Role Phone Aissatou Briggs APRN Primary Care Provider Reason for Visit Reason Comments Chest Pain Auth/Cert Specialty Diagnoses / Procedures Referred By Contact Refer red To Contact Diagnoses Unstable angina Referral ID Status Reason Start Date Expiration Date Visits Requ ested Visits Authorized [id number] 1 1 Encounter Details Date Type Department Care Team Description 09/17/2016 - Hospital Intermediate Ryanne Chen MD [facility] [place] [address] Chest pain, unspecified type; 09/19/2016 Encounter Cardiac Care Unit Heike Mario MD [facility] [place] [address] Syncope and collapse; Yariel Estrada MD [facility] [place] [address] Atherosclerosis of agdaagux coronary arter y of agdaagux heart without angina pectoris; [facility] Unspecified epilepsy without mention of intractable epilepsy; [facility] Gastroeso phageal reflux disease, esophagitis presence not specified; Drive Old myocardial infarction; [place], [place] Stented coronar y artery; [id number] Personal history of tobacco use, presenting hazards to health; [phone] Encounter for l hillary-term (current) use of other medications; Encounter for l hillary-term (current) use of aspirin; Personal histor y of allergy to other specified medicinal agents; Personal histor y of allergy to narcotic agent Social History Tobacco Use Types Packs/Day Years [...] Junaid Pérez Patient Age: 61 y.o. Language: Hungarian Race: White Ethnicity: Not nor Admit date: [...] please contact your inpatient physician through the [facility] Supervisor Component Assembler . 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 TTE 09/18/16: [...] Soriano Your Primary Care Provider: Aissatou Briggs, SHALE PLANER OPERATOR HELPER [phone] For questions regarding this document or issues relating to this hospitalization on the Medical Service, please contact your inpatient physician through the [facility] Supervisor Component Assembler . Issues after hours and on weekends will be handled by the Hospitalist staff on-call. General Instructions None Discharge References/Attachments PCI (PERCUTANEOUS CORONARY INTERVENTION): POST-OP (MOLDOVAN) documented in this encounter Discharge Instructions Patient [...] Soriano Your Primary Care Provider: Aissatou Briggs, SHALE PLANER OPERATOR HELPER [phone] For questions regarding this document or issues relating to this hospitalization on the Medical Service, please contact your inpatient physician through the [facility] Supervisor Component Assembler . Issues after hours and on weekends will be handled by the Hospitalist staff on-call. AttachmentsThe following attachments cannot be sent through Care Everywhere.PCI (PERCUTANEOUS CORONARY INTERVENTION): POST-OP (MOLDOVAN)documented in this encounter Medications at Time of [...] as of this encounter Progress Notes Constance Cobb, RN - 09/19/2016 3:58 PM EST Pt A+O SR SB on tele. No complaints of pain or SOB. VSS. Pt's IVs and tele discontinued. Right groinsite is now [employer] LIAISON OFFICER CDI negative for hematoma. No bleeding. Positive pulses throughout. Pt being discharged to home. Pt's AVS, medications, follow up appointments, when to seek medical attention and post right groin cath care gone over with patient. Verbalized understanding. PCI post op packet given to patient to take home. [place] by nursing staff. Teetee Junaid Radha - 09/19/2016 12:20 PM EST Cardiology Daily [...] running as ordered. 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 CAD (coronary artery disease), agdaagux coronary artery ??? Epilepsy ??? GERD (gastroesophageal [...] dropped from 98 to 92% on 2LNC. MD aware. Yanira Medina RN - 09/17/2016 5:15 PM EST Pt dry-heaving and becoming hypoxic with O2 sat of 85%. 2L oxygen applied via NC with improvement. King Fuller MD - 09/17/2016 5:00 PM EST Chief [...] baby aspirin. He has a history of PA 5 years ago which felt similar to this. He was seen in cardiology clinic at [facility] who referred him for cardiology admission to [facility]. he denies any shortness of breath, nausea, [...] to cardiology King Fuller MD Resident 09/17/16 1831 Associated attestation - Heike Mario MD - [...] the emergency department at recommendation of his furnace converter for concern of possible unstable angina need [...] hospital and then discharged to see his furnace converter he was rescheduled to see his furnace converter today. After seeing his furnace converter he was referred here for admission for [...] Care Team Description 09/04/2022 Ancillary Procedure Radiology Chester Aissatou A, Berto velázquez (D-SCHED ERROR SHALE PLANER OPERATOR HELPER / CORRECTION ) [address] [place] [address] (Wo rk) Scheduled Orders Name Type Priority Associated Diagnoses Order S chedule EKG 12 Lead ECG STAT One Time for 1 Occurrences starting 09/17/2016 unti l 09/17/2016 documented as of this encounter Procedures Procedure Name Priority Date/Time Associated Comments Diagnosis UPTWIST SPINNER SCAN 09/20/2016 12:00 AM EST CARDIAC CATH [...] STAT 09/18/2016 1:15 Results f or this ([facility]) PM EST procedure are i n the [...] STAT 09/18/2016 5:50 Results f or this ([facility]) AM EST procedure are i n the [...] ENZYMES STAT 09/17/2016 11:50 Results for this ([facility]/P) PM EST procedure are i n the [...] STAT 09/17/2016 3:30 Results f or this ([facility]) PM EST procedure are i n the results section. CBC (WITH DIFF) STAT 09/17/2016 3:30 PM EST PHENYTOIN LEVEL, TOTAL STAT 09/17/2016 3:30 Re sults for this PM EST procedure are i n the results section. BASIC METABOLIC PANEL STAT 09/17/2016 3:30 Res ults for this (NON-FASTING) PM EST procedure are in the results section. documented in this encounter Results SCAN DOC: UPTWIST SPINNER (09/20/2016 12:00 AM EST) Narrative This result has an attachment that is no t available. Scanning Provider MEDIA MGR SCAN EXT ORDR/RSLT SCAN DOC: CARDIAC CATH (09/20/2016 12:00 AM EST) Narrative This result has an attachment that is no t available. Scanning Provider MEDIA MGR SCAN EXT ORDR/RSLT (ABNORMAL) BMP w/fasting Glucose (09/19/2016 12:59 PM EST) P athologist Signature Glucose 95 65 - 99 RICHARD BOOKER Fasting mg/dL [facility] Comment: ?Fasting* Glucose Interpretive [...] of Diabetes Mellitus, Position Statement from the [place] Diabetes Association. ??Diabete s Care, Volume 33, Supplement 1, Nov 2009 BUN 18 10 - 20 mg/dL [facility] Creatinine 0.91 0.80 - 1.50 mg/dL [facility] Comment: Please note that the pediatric reference intervals supplied above were not validated at [facility]. Results from pediatri c patients should be interpreted in conjunction to the patient's age, height and muscle mass. Sodium 137 135 - 145 mmol/L [facility] Potassium 4.1 3.5 - 5.0 mmol/L [facility] Comment: Please note: ??Patients with WBC >100,00 0 may have falsely elevated Potassium levels. ??For accurate Potassium quantif ication in these patients send serum separator tube (gold top) for subsequent determinations. ??Contact the Clinical Chemistry Laboratory if there are any qu estions. Chloride 103 98 - 107 mmol/L [facility] CO2 20 (L) 22 - 31 mmol/L [facility] Anion Gap 14 5 - 15 mmol/L [facility] Calcium 8.7 8.5 - 10.5 mg/dL [facility] Estimated GFR >60 >=60 [facility] Comment: This estimated GFR (eGFR) [...] the following links into your internet browser. [email or web address] [email or web address] Specimen Anatomical Collection Method Collection Time Receive d Time (Source) Location / / Volume Laterality Blood specimen 09/19/2016 12:59 6 1:09 (specimen) PM EST PM EST Resulting Agency Comment Spec In Lab Yariel Suárez MD CHEMISTRY ORDERABLES Performing Organization Address [facility] Phon e Number [address] Urine Hold (09/19/2016 11:43 AM EST) P athologist Signature Urine Hold Sample in [facility]. [facility] Specimen Anatomical Collection Method Collection Time Receive d Time (Source) Location / / Volume Laterality Urine specimen Urine / Unknown 09/19/2016 11:43 2015 (specimen) AM EST 11:54 AM EST Yariel Suárez MD URINE ORDERABLES Performing Organization Address City/[facility] [place] [address] (ABNORMAL) Urinalysis with reflex Culture (09/19/2016 11:43 AM EST) Patholo gist Method Time Signature Glucose UA Negative Negative [facility] mg/dL [facility] Protein UA Negative Negative [facility] mg/dL [facility] Bilirubin UA Negative Negative [facility] mg/dL [facility] Comment: Clinical correlation required for positi ve Urine Bilirubin results as false positive may occur with some drugs and d rug related products. If a false positive is suspected a serum total bili dexter should be considered if clinically indicated. Urobilinogen UA Normal Normal mg/dL [facility] pH UA 7.0 5.0 - 8.0 [facility] Blood UA Small (A) Negative mg/dL [facility] Ketones UA Negative Negative mg/dL [facility] Nitrite UA Negative Negative [facility] Leukocytes UA Negative Negative [facility] LABORATORY Appearance UA Clear Clear [facility] Spec [place] UA 1.010 1.002 - 1.030 [facility] Color UA Straw Yellow [facility] RBC UA 2 0 - 3 /HPF [facility] WBC UA 1 0 - 3 /HPF [facility] Culture Reflexed No [facility] Specimen (Source) Anatomical Collection Method Collection Time Re ceived Time Location / / Volume Laterality Urine specimen 09/19/2016 11:43 6 obtained by clean AM EST 11:[address] catch procedure (specimen) Resulting Agency Comment Spec In Lab Yariel Sáurez MD URINE ORDERABLES Performing Organization Address City/[facility]/[place] [address] EKG 12 Lead (09/19/2016 8:06 AM EST) Component Value Ref Range Test Analysis Performed Pathologis t Method Time At Signature Ventricular rate 62 BPM MUSE SYSTEM Atrial Rate 62 BPM MUSE SYSTEM P-R Interval 134 ms MUSE SYSTEM QRS Duration 80 ms MUSE SYSTEM Q-T Interval 476 ms MUSE SYSTEM QTC Calculated 483 ms MUSE SYSTEM (Bezet) Calculated P Totz 22 degrees MUSE SYSTEM Calculated R Totz 20 degrees MUSE SYSTEM Calculated T Totz -54 degrees MUSE SYSTEM INTERPRETATION Normal sinus rhythm MUSE SYSTEM Possible Inferior infarct (cited on or before 18-SEP-2016) Nonspecific ST and T wave abnormality Abnormal ECG Confirmed by MD Holland Douglas (57) on 09/19/2016 4:17:32 P M Specimen Anatomical Collection Method Collection Time Receive d Time (Source) Location / / Volume Laterality 09/19/2016 8:06 AM 6 4:17 EST PM EST Heike Mario MD ECG ORDERABLES Performing Organization Address City/State/ZIP Code Phon e Number MUSE SYSTEM (ABNORMAL) Differential, Automated (09/19/2016 5:44 AM EST) Patholo gist Method Time Signature Neutrophils % 69.7 % [facility] Neutr Abs (ANC) 5.92 1.70 - [facility] 6.10 [facility] x10(3)/[facility] LABORATORY Lymphocytes % 13.9 % [facility] Lymphocytes Abs 1.2 0.9 - 3.2 [facility] x10(3)/[facility] LABORATORY Monocytes % 11.5 % [facility] Monocyte Abs 1.0 (H) 0.3 - 0.9 [facility] x10(3)/[facility] LABORATORY Eosinophils % 3.8 % [facility] Eosinophils Abs 0.3 0.0 - 0.4 [facility] x10(3)/[facility] LABORATORY Basophils % 0.6 % [facility] Basophils Abs 0.0 0.0 - 0.1 [place] 207520(3)[facility] LABORATORY Immature Gran % 0.50 % [facility] Comment: Immature granulocytes(IG's)percentage an d absolute count will include metamyelocytes, myelocytes, and promyelo cytes. Blood smears from CBCs yielding IG's will be scanned manually for concor dance. If this scan disagrees with the automated IG or if promyelocytes are not ed, a manual differential will be performed. [place] Abs 0.04 0.00 - 0.04 x10(3)/[facility] LABORATORY Specimen Anatomical Collection Method Collection Time Receive d Time (Source) Location / / Volume Laterality Blood specimen 09/19/2016 5:44 AM 016 5:57 (specimen) EST AM EST Resulting Agency Comment Spec In Lab Heike Mario MD HEMATOLOGY ORDERABLES Performing Organization Address City/State/[place] [address] (ABNORMAL) Hemogram (09/19/2016 5:44 AM EST) Analysis Performed At Patho logist Time Signature WBC 8.5 4.0 - 9.5 [facility] x10(3)/[facility] LABORATORY RBC 4.65 4.58 - [facility] 5.54 [facility] x10(6)/[facility] LABORATORY Hemoglobin 13.8 13.7 - [facility] 16.5 gm/dL [facility] Hematocrit 40.9 40.5 - RICHARD RODRIGUEZCOCK 48.5 % [facility] MCV 88.0 82.9 - RICHARD JHONY 93.[address] [facility] LABORATORY MCH 29.7 27.5 - RICHRAD RODRIGUEZCOCK 32.1 pg [facility] MCHC 33.7 32.0 - RICHARD RODRIGUEZCOCK 35.7 gm/dL [facility] Platelets 134 (L) 145 - 357 [facility] x10(3)/[facility] LABORATORY RDWSD 46.3 (H) 36.0 - RICHARD JHONY 45.[address] [facility] LABORATORY RDWCV 14.4 (H) 11.4 - [facility] JHONY 13.8 % [facility]ATORY MPV 10.0 7.6 - 12.9 [facility] LABORATORY nRBC % Auto 0.0 % [facility] nRBC Abs Auto 0.000 0.000 - [facility] 0.000 [facility] x10(3)/[facility] LABORATORY Specimen Anatomical Collection Method Collection Time Receive d Time (Source) Location / / Volume Laterality Blood specimen 09/19/2016 5:44 AM 016 5:57 (specimen) EST AM EST Resulting Agency Comment Spec In Lab Heike Mario MD HEMATOLOGY ORDERABLES Performing Organization Address City/State/[place] [address] (ABNORMAL) Basic Metabolic Panel (non-fasting) (09/19/2016 5:44 AM EST) athologist Signature Glucose Lvl 111 65 - 199 [facility] mg/dL [facility] Comment: Diabetes: >=200 mg/dL plus symp toms BUN 21 (H) 10 - 20 mg/dL [facility] Creatinine 1.12 0.80 - 1.50 mg/dL [facility] Comment: Please note that the pediatric reference intervals supplied above were not validated at [facility]. Results from pediatri c patients should be interpreted in conjunction to the patient's age, height and muscle mass. Sodium 139 135 - 145 mmol/L [facility] Potassium 5.0 3.5 - 5.0 mmol/L [facility] Comment: Please note: ??Patients with WBC >100,00 0 may have falsely elevated Potassium levels. ??For accurate Potassium quantif ication in these patients send serum separator tube (gold top) for subsequent determinations. ??Contact the Clinical Chemistry Laboratory if there are any qu estions. Chloride 102 98 - 107 mmol/L [facility] CO2 24 22 - 31 mmol/L [facility] Anion Gap 13 5 - 15 mmol/L [facility] Calcium 9.2 8.5 - 10.5 mg/dL [facility] Estimated GFR >60 >=60 [facility] Comment: This estimated GFR (eGFR) [...] the following links into your internet browser. [email or web address] [email or web address] Specimen Anatomical Collection Method Collection Time Receive d Time (Source) Location / / Volume Laterality Blood specimen 09/19/2016 5:44 AM 016 5:57 (specimen) EST AM EST Resulting Agency Comment Spec In Lab Heike Mario MD CHEMISTRY ORDERABLES Performing Organization Address City/State/[place] [address] Phenytoin level, total (09/19/2016 5:44 AM EST) P athologist Signature Phenytoin Lvl 11.9 10.0 - [facility] 20.0 mg/L [facility] Comment: Theraputic range: ??10-20 [...] Organization Address City/State/ZIP Code Phon e Number [place] [id number] EKG 12 Lead (09/18/2016 9:42 PM EST) Component Value Ref Range Test Analysis Performed Pathologis t Method Time At Signature Ventricular rate 61 BPM MUSE SYSTEM Atrial Rate 61 BPM MUSE SYSTEM P-R Interval 136 ms MUSE SYSTEM QRS Duration 78 ms MUSE SYSTEM Q-T Interval 456 ms MUSE SYSTEM QTC Calculated 459 ms MUSE SYSTEM (Bezet) Calculated P Totz 53 degrees MUSE SYSTEM Calculated R Totz 31 degrees MUSE SYSTEM Calculated T Totz -139 degrees MUSE SYSTEM INTERPRETATION Normal sinus rhythm MUSE SYSTEM Possible Inferolateral infarction Nonspecific ST and T wave abnormality Abnormal ECG Confirmed by MD Skyler, Mir (57) on 09/19/2016 4:15:33 P M Specimen [...] Laterality Volume Narrative 09/18/2016 4:53 PM EST ?[facility] ? Cardiac Cathete rization/Intervention Report ? Patient Name: Junaid Pérez. ? Procedure Date: 09/18/2016 ? A #: [id number] ? Primary Physician: Jered, Chavo W ? Case #: [id number] ? File Name: [id number] ? Catheterization Order Number: [id number] ? [facility] ?Clinical Nurse [facility] ? Final Report [place], [place] ? Patient Name: ? Junaid H. Sarge nt ? ID#: ?[id number] ? : ?1955 ? Procedure Date: ? November 18, 20 16 ?Case #: ? [id number] ? Room: ? 5 ? Case Physician: ? Chavo bowman, M.D. ?Start: ?16:03 ?Fellow: ? Aga castañeda M.D. ? Admission: ??09/17/2016 ? Discharge: ??09/19/2016 ? Procedures: ?* Coronary Angiography ?* Left Heart Catheterization ?* Vascular Closure Device Deplo yment ? History ?Junaid Pérez is a 61 year o ld man. He has a family history of ?coronary artery disease. The pa tient has a history of smoking. He has [...] with: uns table angina (w/i 60 days). [place] ?Cardiovascular Society angina c lass was IV. [...] and vascular closu re device. ? Chavo Lawton M.D. ? Electronically Signed by: Chavo cornelius M.D. ? Report Finalized: 09/18/2016 ??16:50 ? Report Last Ammended: 12/22/2016 ??09:47 ? Procedure Note Chavo Lawton II, MD - 12/22/2016Fo rmatting of this note might be different from the original. [facility] Cardiac Catheterization/Intervention Re port Patient Name: Junaid PérezGrace Procedure Date: 09/18/2016 A #: [id number] Primary Physician: Chavo Lawton Case #: [id number] File Name: [id number] Catheterization Order Number: [id number] [facility] Clinical Nurse Reviewer [facility] Final Report [place], [place] Patient Name: Junaid Pérez ID#: [...] He had a remote coronary [facility] The patient has a history of mild liver disease. He also has a hi story of an abnormal stress test and an abnormal echocardiogram. Prior t o the initiation of this procedure, the patient was designated a s ASA Class III. Patient Status at Catheterization: The patient presented with: unstable an zahra (w/i 60 days). [place] [employer] angina class was IV. A [...] 6 Fr Perclose was deployed at the [facility] femoral artery access site. This [...] ORDERABLES Cardiac Enzymes (09/18/2016 1:15 PM EST) athologist Signature Troponin-T <0.03 <=0.03 [facility] ng/mL [facility] Comment: 0.03 ng/mL: Represents the [...] consensus document of the Joint Society of Cardiology/[place] College o f Cardiology Committee for the redefinition of myocardial infarction. ? ?Journal of the [place] College of Cardiology 2000; 36: 959-969] CK, Total 47 0 - 200 unit/L [facility] Specimen Anatomical Collection Method Collection Time Receive d Time (Source) Location / / Volume Laterality Blood specimen Venous Draw / 09/18/2016 1:15 PM 2015 2:03 (specimen) Unknown EST PM EST Resulting Agency Comment Spec In Lab Heike Mario MD CHEMISTRY ORDERABLES Performing Organization Address City/[facility]/ZIP Code Phon e Number [address] Green Tube HOLD (09/18/2016 1:15 PM EST) P athologist Signature Green Hold Sample in [facility] LABORATORY Specimen Anatomical Collection Method Collection Time Receive d Time (Source) Location / / Volume Laterality Blood specimen Venous Draw / 09/18/2016 1:15 PM 2015 1:44 (specimen) Unknown EST PM EST Heike Mario MD CHEMISTRY ORDERABLES Performing Organization Address [facility] [place] [address] (ABNORMAL) APTT (09/18/2016 1:15 PM EST) P athologist Signature PTT 89 (H) 25 - 35 sec [facility] Comment: The recommended therapeutic range for fu ll dose, unfractionated heparin at [facility] is 80 ? 114 seconds. The use [...] Mario MD HEMATOLOGY ORDERABLES Performing Organization Address [facility]/ZIP [facility] Phon e Number [address] EKG 12 Lead (09/18/2016 10:50 AM EST) Component Value Ref Range Test Analysis Performed Pathologis t Method Time At Signature Ventricular rate 65 BPM MUSE SYSTEM Atrial Rate 65 BPM MUSE SYSTEM P-R Interval 128 ms MUSE SYSTEM QRS Duration 72 ms MUSE SYSTEM Q-T Interval 412 ms MUSE SYSTEM QTC Calculated 428 ms MUSE SYSTEM (Bezet) Calculated P Totz 49 degrees MUSE SYSTEM Calculated R Totz 10 degrees MUSE SYSTEM Calculated T Totz -146 degrees MUSE SYSTEM INTERPRETATION Normal sinus [...] Sánchez ? (Age): 1955(61y) Med Rec#: ? [id number] ?Sex: ?M ? Site Loc: ? [facility] ?Ht / Wt: ??162(cm)/68(kg) Pt. Loc: ?Adult Floor ? BSA: ?1.73 Study Date: ?? 09/18/2016 ?Pt. Type: Inpatient Tape: ? Referring: Heike Mario Referring: AISSATOU BRIGGS A Reading: Carlos Núñez ([id number]) Diagnosis: *ICD-10-PCS Chest pain, unspecified (R0 7.9) [...] E-wave Vmax ?0.4 ?m/sec ? MV deceleration [id number] ?msec ? MV A-wave Vmax ?0.7 ?m/sec [...] ? Mid-Inferior ?Normal ? Mid-Inferoseptal ?Normal ? Sharon-Septal ? Normal ? Sharon-Anterior ? Normal ? Sharon-Lateral ?Hypokinetic ? Sharon-Inferior ? Normal ? Sharon-Tip ?Normal ? This report has been electronically sign ed by: _ Carlos Núñez M.D. ? 09/18/2016 09:00:29 Images reviewed and interpretation verif ied [facility] Cardiac Ultrasound Laboratory Procedure Note Carlos Núñez MD - 09/18/2016Format ting of this note might be different from the original. Procedure: Transthoracic Echocardiogram Patient: JUANA Sánchez DOB(Age): [birth year]61y) Med Rec#: [id number] Sex: M Site Loc: [facility] Ht / Wt: 162(cm)/68(kg) Pt. Loc: Adult Floor BSA: 1.73 Study Date: 09/18/2016 Pt. Type: Inpatie nt Tape: Referring: Heike Mario Referring: AISSATOU BRIGGS A Reading: Carlos Núñez ([id number]) Diagnosis: *ICD-10-PCS Chest pain, unspecified (R0 7.9) [...] MV E-wave Vmax 0.4 m/sec MV deceleration [id number] msec MV A-wave Vmax 0.7 m/sec MV [...] Scarring/Thinning Mid-Posterolateral Scarring/Thinning Mid-Inferior Normal Mid-Inferoseptal Normal Sharon-Septal Normal Sharon-Anterior Normal Sharon-Lateral Hypokinetic Sharon-Inferior Normal Sharon-Tip Normal This report has been electronically sign ed by: _ Carlos Núñez M.D. 09/18/2016 09:00: 29 Images reviewed and interpretation verif ied [facility] Cardiac Ultrasound Laboratory Heike Mario MD ECHO ORDERABLES Cardiac Enzymes (09/18/2016 5:50 AM EST) P athologist Signature Troponin-T <0.03 <=0.03 [facility] ng/mL [facility] Comment: 0.03 ng/mL: Represents the [...] consensus document of the Joint Society of Cardiology/[place] College o f Cardiology Committee for the redefinition of myocardial infarction. ? ?Journal of the [place] College of Cardiology 2000; 36: 959-969] CK, Total 66 0 - 200 unit/L [facility] Specimen Anatomical Collection Method Collection Time Receive d Time (Source) Location / / Volume Laterality Blood specimen Venous Draw / 09/18/2016 5:50 AM 2015 7:11 (specimen) Unknown EST AM EST Resulting Agency Comment Spec In Lab Heike Mario MD CHEMISTRY ORDERABLES Performing Organization Address City/State/[place] [address] Differential, Automated (09/18/2016 5:50 AM EST) P athologist Signature Neutrophils % 59.6 % [facility] Neutr Abs (ANC) 3.95 1.70 - [facility] 6.10 [facility] x10(3)/[facility] LABORATORY Lymphocytes % 26.2 % [facility] Lymphocytes Abs 1.7 0.9 - 3.2 [facility] x10(3)/[facility] LABORATORY Monocytes % 10.0 % [facility] Monocyte Abs 0.7 0.3 - 0.9 [facility] x10(3)/[facility] LABORATORY Eosinophils % 3.2 % [facility] Eosinophils Abs 0.2 0.0 - 0.4 [facility] x10(3)/[facility] LABORATORY Basophils % 0.8 % [facility] Basophils Abs 0.0 0.0 - 0.1 [facility] x10(3)/[facility] LABORATORY Immature Gran % 0.20 % [facility] Comment: Immature granulocytes(IG's)percentage an d absolute count will include metamyelocytes, myelocytes, and promyelo cytes. Blood smears from CBCs yielding IG's will be scanned manually for concor dance. If this scan disagrees with the automated IG or if promyelocytes are not ed, a manual differential will be performed. Lee Ann Gran Abs 0.01 0.00 - 0.04 x10(3)/[facility] LABORATORY Specimen Anatomical Collection Method Collection Time Receive d Time (Source) Location / / Volume Laterality Blood specimen 09/18/2016 5:50 AM 016 6:44 (specimen) EST AM EST Resulting Agency Comment Spec In Lab Heike Mario MD HEMATOLOGY ORDERABLES Performing Organization Address City/State/[place] [address] (ABNORMAL) Hemogram (09/18/2016 5:50 AM EST) Analysis Performed At Patho logist Time Signature WBC 6.6 4.0 - 9.5 [facility] x10(3)/[facility] LABORATORY RBC 4.84 4.58 - [facility] 5.54 [facility] x10(6)/[facility] LABORATORY Hemoglobin 14.0 13.7 - [facility] 16.5 gm/dL [facility] Hematocrit 42.0 40.5 - [facility] 48[facility] % [facility] MCV 86.8 82.9 - [facility] [address] [facility] LABORATORY MCH 28.9 27.5 - [facility] 32.1 pg [facility] MCHC 33.3 32.0 - [facility] 35.7 gm/dL [facility] Platelets 147 145 - 357 [facility] x10(3)/[facility] LABORATORY RDWSD 46.1 (H) 36.0 - [facility] [facility] LABORATORY RDWCV 14.6 (H) 11.4 - [facility] 13.8 % [facility] LABORATORY MPV 9.9 7.6 - 12.9 [facility] LABORATORY nRBC % Auto 0.0 % [facility] nRBC Abs Auto 0.000 0.000 - [facility] 0.000 [facility] x10(3)/[facility] LABORATORY Specimen Anatomical Collection Method Collection Time Receive d Time (Source) Location / / Volume Laterality Blood specimen 09/18/2016 5:50 AM 016 6:44 (specimen) EST AM EST Resulting Agency Comment Spec In Lab Heike Mario MD HEMATOLOGY ORDERABLES Performing Organization Address City/State/[place] [address] Basic Metabolic Panel (non-fasting) (09/18/2016 5:50 AM EST) athologist Signature Glucose Lvl 119 65 - 199 [facility] mg/dL [facility] Comment: Diabetes: >=200 mg/dL plus symp toms BUN 14 10 - 20 mg/dL [facility] Creatinine 0.82 0.80 - 1.50 mg/dL [facility] Comment: Please note that the pediatric reference intervals supplied above were not validated at [facility]. Results from pediatri c patients should be interpreted in conjunction to the patient's age, height and muscle mass. Sodium 138 135 - 145 mmol/L [facility] Potassium 4.0 3.5 - 5.0 mmol/L [facility] Comment: Please note: ??Patients with WBC >100,00 0 may have falsely elevated Potassium levels. ??For accurate Potassium quantif ication in these patients send serum separator tube (gold top) for subsequent determinations. ??Contact the Clinical Chemistry Laboratory if there are any qu estions. Chloride 103 98 - 107 mmol/L [facility] CO2 22 22 - 31 mmol/L [facility] Anion Gap 13 5 - 15 mmol/L [facility] Calcium 9.0 8.5 - 10.5 mg/dL [facility] Estimated GFR >60 >=60 [facility] Comment: This estimated GFR (eGFR) [...] the following links into your internet browser. [email or web address] [email or web address] Specimen Anatomical Collection Method Collection Time Receive d Time (Source) Location / / Volume Laterality Blood specimen 09/18/2016 5:50 AM 016 6:44 (specimen) EST AM EST Resulting Agency Comment Spec In Lab Heike Mario MD CHEMISTRY ORDERABLES Performing Organization Address [facility] [place] [address] (ABNORMAL) APTT (09/18/2016 5:50 AM EST) athologist Signature PTT 144 25 - 35 [facility] JHONY (Critical) [facility] LABORATORY Comment: Called by: peter, Read back by: moriah coats, Date/Time:09/18/16 07:15. The recommended therapeutic range for fu ll dose, unfractionated heparin at [facility] is 80 ? 114 seconds. The use [...] Mario MD HEMATOLOGY ORDERABLES Performing Organization Address [facility] [place] [address] Lipid panel (fasting) (09/18/2016 5:50 AM EST) athologist Signature Chol, Total 157 <=199 mg/dL [facility] Comment: Recommendations of the NCEP Adult Treatm ent Panel for the following risk cutoff thresholds for the [place] popul[place] n: Desirable: <200 mg/dL Borderline High: 200-239 mg/dL High: > or = 240 mg/dL Triglycerides 59 <=149 mg/dL [facility] Comment: Reference Range: Normal triglycerides: ??<150 mg/dL Borderline high: ??150-199 mg/dL High: ??200-499 mg/dL Very high: ??>zu=484 mg/dL LOU 2001; 285(19):1063-2635 HDL 79 >=40 mg/dL [facility] LAB[facility] Comment: Reference range: ??Low HDL: ?? < 40 mg/dL ??Normal: ?40-60 mg/dL ??Desirable: > 60 mg/dL LOU 2001; 285(19):3623-4787 LDL Cholesterol 66 <=99 mg/dL [facility] Comment: Reference range: ?? Optimal: ?<100 mg/dL ?? Near Optimal/Above Optimal: ?? 100-1 29 mg/dL ?? Borderline high: ?130-159 mg/dL ?? High: ? 160-189 mg/dL ?? Very high: ?>fp=375 mg/dL LOU 2001: 285(19):9772-1463 Chol/HDL Ratio 2.0 ratio [facility] Comment: A Cholesterol to HDL ratio below 4:1 is desirable. ??Studies suggest that increased CAD risk occurs at ratios abov e 5 for females and above 6 for men. ? [place] [employer] Association ??(htt p://www.americanheart.org) ? Gris Int Med, 1994; 121:641 ? AM J Med, 1998; 105(1A):48S Specimen Anatomical Collection Method Collection Time Receive d Time (Source) Location / / Volume Laterality Blood specimen 09/18/2016 5:50 AM 016 6:44 (specimen) EST AM EST Resulting Agency Comment Spec In Lab Heike Mario MD CHEMISTRY ORDERABLES Performing Organization Address City/[facility]/[place] [address] Prothrombin Time (09/18/2016 5:50 AM EST) P athologist Signature PT 13.6 12.0 - 15.0 [facility] LABORATORY Comment: An INR <2.0 indicates [...] linical circumstances. INR 1.0 0.9 - 1.1 [facility] LABORATORY Specimen Anatomical Collection Method Collection Time Receive d Time (Source) Location / / Volume Laterality Blood specimen 09/18/2016 5:50 AM 016 6:44 (specimen) EST AM EST Resulting Agency Comment Spec In Lab Heike Mario MD HEMATOLOGY ORDERABLES Performing Organization Address City/[facility]/[place] [address] XR Chest PA & [...] original. EXAMINATION: XR CHEST PA AND LATERAL (Yones NERIC) CLINICAL HISTORY: chest pain TECHNIQUE: Frontal lateral views of the chest COMPARISON: Chest radiograph 04/16/2011 FINDINGS: No focal consolidation the cardiomediast inal silhouette is unchanged. 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 IMPRESSION No acute cardiopulmonary findings. Heike Mario MD IMG DX ORDERABLES Differential, Automated (09/17/2016 11:50 PM EST) athologist Signature Neutrophils % 69.8 % [facility] Neutr Abs (ANC) 4.50 1.70 - [facility] 6.10 [facility] x10(3)/[facility] LABORATORY Lymphocytes % 18.0 % [facility] Lymphocytes Abs 1.2 0.9 - 3.2 [facility] x10(3)/[facility] LABORATORY Monocytes % 9.1 % [facility] Monocyte Abs 0.6 0.3 - 0.9 [facility] x10(3)/[facility] LABORATORY Eosinophils % 2.2 % [facility] Eosinophils Abs 0.1 0.0 - 0.4 [facility] x10(3)[facility] LABORATORY Basophils % 0.6 % [facility] Basophils Abs 0.0 0.0 - 0.1 [facility] x10(3)/[facility] LABORATORY Immature Gran % 0.30 % [facility] Comment: Immature granulocytes(IG's)percentage an d absolute count will include metamyelocytes, myelocytes, and promyelo cytes. Blood smears from CBCs yielding IG's will be scanned manually for concor dance. If this scan disagrees with the automated IG or if promyelocytes are not ed, a manual differential will be performed. Lee Ann Gran Abs 0.02 0.00 - 0.04 x10(3)/[facility] LAB[facility]ORY Specimen Anatomical Collection Method Collection Time Receive d Time (Source) Location / / Volume Laterality Blood specimen 09/17/2016 11:50 6 (specimen) PM EST 12:11 AM EST Resulting Agency Comment Spec In Lab Heike Mario MD HEMATOLOGY ORDERABLES Performing Organization Address City/State/[place] [address] (ABNORMAL) Hemogram (09/17/2016 11:50 PM EST) Analysis Performed At Patho logist Time Signature WBC 6.4 4.0 - 9.5 [facility] x10(3)/[facility] LABORATORY RBC 4.81 4.58 - [facility] 5.54 [facility] x10(6)/[facility] LABORATORY Hemoglobin 14.1 13.7 - [facility] 16.5 gm/dL [facility] Hematocrit 41.3 40.5 - [facility] 48.5 % [facility]ORY MCV 85.9 82.9 - [facility] J[facility]Y 93.[address] [facility] LABORATORY MCH 29.3 27.5 - Ze[facility] 32.1 pg [facility] MCHC 34.1 32.0 - [facility] 35.7 gm/dL [facility] Platelets 151 145 - 357 [facility] LABORATORY RDWSD 45.7 (H) 36.0 - [facility] J[facility]Y 45.[address] [facility] LABORATORY RDWCV 14.5 (H) 11.4 - [facility] J[facility] 13.8 % [facility] LABOR[facility] MPV 9.7 7.6 - 12.9 [facility] nRBC % Auto 0.0 % [facility] nRBC Abs Auto 0.000 0.000 - [facility] 0.000 [facility] x10(3)/[facility] LABORATORY Specimen Anatomical Collection Method Collection Time Receive d Time (Source) Location / / Volume Laterality Blood specimen 09/17/2016 11:50 6 (specimen) PM EST 12:11 AM EST Resulting Agency Comment Spec In Lab Heike Mario MD HEMATOLOGY ORDERABLES Performing Organization Address City/State/ZIP Code Phon e Number [place] [id number] LAB[address] Cardiac Enzymes (09/17/2016 11:50 PM EST) athologist Signature Troponin-T <0.03 <=0.03 [facility]/mL [facility] Comment: 0.03 ng/mL: Represents the [...] consensus document of the Joint Society of Cardiology/[place] College o f Cardiology Committee for the redefinition of myocardial infarction. ? ?Journal of the [place] College of Cardiology 2000; 36: 959-969] CK, Total 75 0 - 200 unit/L [facility] Specimen Anatomical Collection Method Collection Time Receive d Time (Source) Location / / Volume Laterality Blood specimen 09/17/2016 11:50 6 (specimen) PM EST 12:11 AM EST Resulting Agency Comment Spec In Lab Heike Mario MD CHEMISTRY ORDERABLES Performing Organization Address City/State/ZIP Code Phon e Number [place] [id number] (ABNORMAL) APTT (09/17/2016 11:50 PM EST) athologist Signature PTT 47 (H) 25 - 35 sec [facility] Comment: The recommended therapeutic range for fu ll dose, unfractionated heparin at [facility] is 80 ? 114 seconds. The use [...] Mario MD HEMATOLOGY ORDERABLES Performing Organization Address City/[facility]/ZIP Code Phon e Number [address] Green Tube HOLD (09/17/2016 5:10 PM EST) P athologist Signature Green Hold Sample in [facility] LABORATORY Specimen Anatomical Collection Method Collection Time Receive d Time (Source) Location / / Volume Laterality Blood specimen Venous Draw / 09/17/2016 5:10 PM 2015 5:46 (specimen) Unknown EST PM EST Heike Mario MD CHEMISTRY ORDERABLES Performing Organization Address City/[facility] Phon e Number [address] Differential, Automated (09/17/2016 5:10 PM EST) athologist Signature Neutrophils % 72.0 % [facility]ORY Neutr Abs (ANC) 5.71 1.70 - [facility] 6.10 [facility] x10(3)/[facility] LABORATORY Lymphocytes % 14.6 % [facility]ORY Lymphocytes Abs 1.2 0.9 - 3.2 [facility] x10(3)/[facility] LABORATORY Monocytes % 10.8 % [facility]ORY Monocyte Abs 0.9 0.3 - 0.9 [facility] x10(3)/[facility] LABORATORY Eosinophils % 2.1 % [facility] Eosinophils Abs 0.2 0.0 - 0.4 [facility] x10(3)/[facility] LABORATORY Basophils % 0.4 % [facility] Basophils Abs 0.0 0.0 - 0.1 [facility] x10(3)/[facility] LABORATORY Immature Gran % 0.10 % [facility] Comment: Immature granulocytes(IG's)percentage an d absolute count will include metamyelocytes, myelocytes, and promyelo cytes. Blood smears from CBCs yielding IG's will be scanned manually for concor dance. If this scan disagrees with the automated IG or if promyelocytes are not ed, a manual differential will be performed. Lee Ann Gran Abs 0.01 0.00 - 0.04 x10(3)/[facility] LABORATORY Specimen Anatomical Collection Method Collection Time Receive d Time (Source) Location / / Volume Laterality Blood specimen 09/17/2016 5:10 PM 016 5:45 (specimen) EST PM EST Resulting Agency Comment Spec In Lab Heike Mario MD HEMATOLOGY ORDERABLES Performing Organization Address City/State/Z[place] [address] (ABNORMAL) Hemogram (09/17/2016 5:10 PM EST) Analysis Performed At Patho logist Time Signature WBC 7.9 4.0 - 9.5 [facility] x10(3)/[facility] LABORATORY RBC 5.01 4.58 - [facility] 5.54 [facility] x10(6)/[facility] LABORATORY Hemoglobin 14.8 13.7 - [facility] 16.5 gm/dL [facility]ORY Hematocrit 42.8 40.5 - [facility] 48.5 % [facility] LABORATORY MCV 85.4 82.9 - [facility] [facility] LABORATORY MCH 29.5 27.5 - [facility] 32.1 pg [facility]ORY MCHC 34.6 32.0 - [facility] 35.7 gm/dL [facility] Platelets 153 145 - 357 [facility] x10(3)/[facility] LABORATORY RDWSD 44.5 36.0 - [facility] [address] [facility] LABORATORY RDWCV 14.4 (H) 11.4 - [facility] 13.8 % [facility] LABORATORY MPV 10.0 7.6 - 12.9 [facility] LABORATORY nRBC % Auto 0.0 % [facility] LABORATORY nRBC Abs Auto 0.000 0.000 - [facility] 0.000 [facility] x10(3)/[facility] LABORATORY Specimen Anatomical Collection Method Collection Time Receive d Time (Source) Location / / Volume Laterality Blood specimen 09/17/2016 5:10 PM 016 5:45 (specimen) EST PM EST Resulting Agency Comment Spec In Lab Heike Mario MD HEMATOLOGY ORDERABLES Performing Organization Address City/[facility]/[place] [address] (ABNORMAL) APTT (09/17/2016 5:10 PM EST) athologist Signature PTT 52 (H) 25 - 35 sec [facility]ORY Comment: The recommended therapeutic range for fu ll dose, unfractionated heparin at [facility] is 80 ? 114 seconds. The use [...] Mario MD HEMATOLOGY ORDERABLES Performing Organization Address City/[facility]/[place] [address] (ABNORMAL) Phenytoin level, total (09/17/2016 3:30 PM EST) athologist Signature Phenytoin Lvl 6.0 (L) 10.0 - [facility] 20.0 mg/L [facility] LAB[facility]ORY Comment: Theraputic range: ??10-20 [...] Organization Address City/State/ZIP Code Phon e Number [address] Gold Tube HOLD (09/17/2016 3:30 PM EST) athologist Signature Gold Hold Sample in [facility] LABORATORY Specimen Anatomical Collection Method Collection Time Receive d Time (Source) Location / / Volume Laterality Blood specimen No Charge / 09/17/2016 3:30 PM 016 3:58 (specimen) Unknown EST PM EST Ryanne Chen MD CHEMISTRY ORDERABLES Performing Organization Address City/State/ZIP Code Phon e Number [address] Differential, Automated (09/17/2016 3:30 PM EST) athologist [facility] Neutrophils % 65.3 % [facility] LABORATORY Neutr Abs (ANC) 4.53 1.70 - [facility] 6.10 [facility] x10(3)/[facility] LABORATORY Lymphocytes % 20.7 % [facility] LABORATORY Lymphocytes Abs 1.4 0.9 - 3.2 [facility] x10(3)/[facility] LABORATORY Monocytes % 10.1 % [facility] Monocyte Abs 0.7 0.3 - 0.9 [facility] x10(3)/[facility] LABORATORY Eosinophils % 2.9 % [facility] LABORATORY Eosinophils Abs 0.2 0.0 - 0.4 [facility] x10(3)/[facility] LABORATORY Basophils % 0.7 % [facility] Basophils Abs 0.0 0.0 - 0.1 [facility] x10(3)/[facility] LABORATORY Immature Gran % 0.30 % [facility] Comment: Immature granulocytes(IG's)percentage an d absolute count will include metamyelocytes, myelocytes, and promyelo cytes. Blood smears from CBCs yielding IG's will be scanned manually for concor dance. If this scan disagrees with the automated IG or if promyelocytes are not ed, a manual differential will be performed. [place] Gran Abs 0.02 0.00 - 0.04 x10(3)/[facility] Specimen Anatomical Collection Method Collection Time Receive d Time (Source) Location / / Volume Laterality Blood specimen 09/17/2016 3:30 PM 016 3:58 (specimen) EST PM EST Resulting Agency Comment Spec In Lab Ryanne Chen MD HEMATOLOGY ORDERABLES Performing Organization Address City/[facility]/[place]IP [place] [address] (ABNORMAL) Hemogram (09/17/2016 3:30 PM EST) Analysis Performed At Patho logist Time Signature WBC 6.9 4.0 - 9.5 [facility] x10(3)/[facility] LABORATORY RBC 5.26 4.58 [facility] x10(6)/[facility] LABORATORY Hemoglobin 15.7 13.7 - [facility] 16.[facility] gm/dL [facility] Hematocrit 45.9 40.5 - [facility] 48.5 % [facility] MCV 87.3 82.9 - [facility] [address] [facility] LABORATORY MCH 29.8 27.5 - [facility] 32.1 pg [facility] MCHC 34.2 32.0 - [facility] 35[facility] gm/dL [facility] Platelets 159 145 - 357 [facility] x10(3)/[facility] LABORATORY RDWSD 46.2 (H) 36.0 - [facility] 45.[address] [facility] LABORATORY RDWCV 14.6 (H) 11.4 - [facility] 13.8 % [facility] MPV 9.8 7.6 - 12.9 [facility] LABORATORY nRBC % Auto 0.0 % [facility] nRBC Abs Auto 0.000 0.000 - [facility] 0.000 [facility] x10(3)/[facility] LABORATORY Specimen Anatomical Collection Method Collection Time Receive d Time (Source) Location / / Volume Laterality Blood specimen 09/17/2016 3:30 PM 016 3:58 (specimen) EST PM EST Resulting Agency Comment Spec In Lab Ryanne Chen MD HEMATOLOGY ORDERABLES Performing Organization Address City/State/ZIP [place] [address] (ABNORMAL) Basic Metabolic Panel (non-fasting) (09/17/2016 3:30 PM EST) athologist Signature Glucose Lvl 112 65 - 199 [facility] mg/dL [facility] Comment: Diabetes: >=200 mg/dL plus symp toms BUN 15 10 - 20 mg/dL [facility] Creatinine 0.92 0.80 - 1.50 mg/dL [facility] Comment: Please note that the pediatric reference intervals supplied above were not validated at [facility]. Results from pediatri c patients should be interpreted in conjunction to the patient's age, height and muscle mass. Sodium 139 135 - 145 mmol/L [facility] Potassium 4.2 3.5 - 5.0 mmol/L [facility] Comment: Please note: ??Patients with WBC >100,00 0 may have falsely elevated Potassium levels. ??For accurate Potassium quantif ication in these patients send serum separator tube (gold top) for subsequent determinations. ??Contact the Clinical Chemistry Laboratory if there are any qu estions. Chloride 103 98 - 107 mmol/L [facility] CO2 21 (L) 22 - 31 mmol/L [facility] Anion Gap 15 5 - 15 mmol/L [facility] Calcium 9.5 8.5 - 10.5 mg/dL [facility] Estimated GFR >60 >=60 [facility] Comment: This estimated GFR (eGFR) [...] the following links into your internet browser. [email or web address] Specimen Anatomical Collection Method Collection Time Receive d Time (Source) Location / / Volume Laterality Blood specimen 09/17/2016 3:30 PM 016 3:58 (specimen) EST PM EST Resulting Agency Comment Spec In Lab Ryanne Chen MD CHEMISTRY ORDERABLES Performing Organization Address City/[facility]/[place] [address] Cardiac Enzymes (09/17/2016 3:30 PM EST) P athologist Signature Troponin-T <0.03 <=0.03 [facility] ng/mL [facility] Comment: 0.03 ng/mL: Represents the [...] consensus document of the Joint Society of Cardiology/[place] [employer] Committee for the redefinition of myocardial infarction. ? ?Journal of the [place] [employer] 2000; 36: 959-969] CK, Total 117 0 - 200 unit/L [facility] Specimen Anatomical Collection Method Collection Time Receive d Time (Source) Location / / Volume Laterality Blood specimen 09/17/2016 3:30 PM 016 3:58 (specimen) EST PM EST Resulting Agency Comment Spec In Lab Ryanne Chen MD CHEMISTRY ORDERABLES Performing Organization Address City/[facility]/[place] [address] Blue Tube HOLD (09/17/2016 3:30 PM EST) P athologist Signature Blue Hold Sample in [facility] LABORATORY Specimen Anatomical Collection Method Collection Time Receive d Time (Source) Location / / Volume Laterality Blood specimen 09/17/2016 3:30 PM 016 3:58 (specimen) EST PM EST Ryanne Chen MD HEMATOLOGY ORDERABLES Performing Organization Address City/State/ZIP Code [place] [address] documented in this encounter Visit Diagnoses Diagnosis Chest pain, unspecified type Syncope and collapse Atherosclerosis of agdaagux coronary arter y of agdaagux heart without angina pectoris Unspecified epilepsy without mention of intractable epilepsy Gastroesophageal reflux disease, esophag itis presence not specified Old myocardial infarction Stented coronary artery Postsurgical percutaneous transluminal c oronary angioplasty status Personal history of tobacco use, present ing hazards to health Encounter for long-term (current) use of other medications Encounter for long-term (current) use of aspirin Personal history of allergy to other spe cified medicinal agents Personal history of allergy to narcotic agent Unstable angina Intermediate coronary syndrome documented in this encounter Admitting Diagnoses Diagnosis Unstable angina Intermediate coronary syndrome documented in this encounter Administered Medications Inactive Administered Medications - up to 3 most recent administrations Medication Order MAR Action Action Date Dose Rate Site acetaminophen (TYLENOL) tablet 650 Given 09/19/2016 6:14 AM EST 650 mg mg 650 mg, Oral, EVERY 4 HOURS PRN, Starting on Wed09/18/16 at 2155, Until 09/19/16 at 1758, Pain, Maximum dose of acetaminophen is 4000 mg from all sources in 24 hours., Routine Given 09/18/2016 10:08 PM EST 650 mg aspirin EC tablet 81 mg Given 09/19/2016 8:19 AM EST 81 mg 81 mg, Oral, DAILY, First dose on Wed09/18/16 at 0900, Until Discontinued, Routine Given 09/18/2016 8:53 AM EST 81 mg aspirin tablet 325 mg Given 09/18/2016 11:46 AM EST 325 mg 325 mg, Oral, ONCE, 1 dose, On Wed09/18/16 at 1128, Routine atorvastatin (LIPITOR) tablet 80 mg Given 09/18/2016 1:59 AM EST 80 mg 80 mg, Oral, EVERY EVENING, First dose on Wed09/18/16 at 0030, Until Discontinued, Routine citalopram (CeleXA) tablet 40 mg Given 09/19/2016 8:15 AM EST 40 mg 40 mg, Oral, DAILY, First dose on Wed09/18/16 at 0900, Until Discontinued, Routine Given 09/18/2016 8:53 AM EST 40 mg diaZEPam (VALIUM) tablet 5 mg Given 09/18/2016 3:34 PM EST 5 mg 5 mg, Oral, ONCE, 1 dose, On Wed09/18/16 at 1159, Cath (Day of Procedure), Routine diphenhydrAMINE (BENADRYL) capsule 25 mg Given 09/18/2016 3:34 PM EST 25 mg 25 mg, Oral, ONCE, 1 dose, On Wed09/18/16 at 1159, Cath (Day of Procedure), Routine gabapentin (NEURONTIN) capsule 300 mg Given 09/19/2016 2:01 PM EST 300 mg 300 mg, Oral, 3 TIMES DAILY, First dose on Madhuri 09/17/16 at 2349, Until Discontinued, Routine Given 09/19/2016 8:19 AM EST 300 mg Given 09/18/2016 9:31 PM EST 300 mg heparin (porcine) injection 0-4,000 Given 09/18/2016 12:42 AM ES T 4,000 Units Units 0-4,000 Units, Intravenous, BOLUS PER HEPARIN PROTOCOL, Starting on Madhuri 09/17/16 at 2347, Until 09/19/16 at 1230, Per Protocol, START ADJUSTMENT SCHEDULE 6 HOURS AFTER STARTING INFUSION aPTT Between 60 - 79 seconds: Bolus 2,000 units MAX BOLUS 2,000 units. aPTT Less than 60 seconds: Bolus 4,000 units MAX BOLUS 4,000 units. Increase infusion and recheck aPTT in 6 hours. , Routine heparin 25,000 units in Rate/Dose Verify 09/17/2016 6:47 PM 800 Uni ts/hr 16 mL/hr dextrose 5% 500 mL EST infusion 0-5,000 Units/hr (0-100 mL/hr), Intravenous, CONTINUOUS, Starting on Madhuri 09/17/16 at 1659, Until Madhuri 09/17/16 at 2347, BEGIN infusion at 800 units per hr (12 units/kg/hr). MAX INITIAL infusion rate is 1,000 units/hr. Target PTT = 80 - 114 seconds Start adjustment schedule 6 hours after starting infusion. If PTT is: - less than 60 seconds, Administer PRN bolus and increase rate by 250 units per hr (4 units/kg/hr) - 60 - 79 seconds, Administer PRN bolus and increase rate by 150 units per hr (2 units/kg/hr) - 80 - 114 seconds, No Change - 115 - 129 seconds, decrease rate by 50 units per hr ( 1 units/kg/hr) - 130 - 145 seconds, stop infusion for 30 minutes, then decrease rate by 150 units per hr (2 units/kg/hr) - Greater than 145 seconds, stop infusion for 60 minutes, then decrease rate by 200 units per hour (3 units/kg/hr) Repeat aPTT 6 hours after initiating heparin. Then 6 hours after each dose adjustment. When 2 consecutive aPTT within target range of 80 - 114 seconds, change aPTT to once every 24 hours with A.M. labs while on heparin. RN to order required aPTT - Per Protocol, Routine, Indication: ACS (STEMI vs NSTEMI vs UA) New Bag 09/17/2016 5:15 PM EST 800 Units/hr 16 mL/hr heparin 25,000 units in Rate/Dose Change 09/18/2016 7:17 AM 900 Uni ts/hr 18 mL/hr dextrose 5% 500 mL EST infusion 0-5,000 Units/hr (0-100 mL/hr), Intravenous, CONTINUOUS, Starting on Madhuri 09/17/16 at 2349, Until 09/19/16 at 1230, BEGIN infusion at 800 units per hr (12 units/kg/hr). MAX INITIAL infusion rate is 1,000 units/hr. Target PTT = 80 - 114 seconds Start adjustment schedule 6 hours after starting infusion. If PTT is: - less than 60 seconds, Administer PRN bolus and increase rate by 250 units per hr (4 units/kg/hr) - 60 - 79 seconds, Administer PRN bolus and increase rate by 150 units per hr (2 units/kg/hr) - 80 - 114 seconds, No Change - 115 - 129 seconds, decrease rate by 50 units per hr ( 1 units/kg/hr) - 130 - 145 seconds, stop infusion for 30 minutes, then decrease rate by 150 units per hr (2 units/kg/hr) - Greater than 145 seconds, stop infusion for 60 minutes, then decrease rate by 200 units per hour (3 units/kg/hr) Repeat aPTT 6 hours after initiating heparin. Then 6 hours after each dose adjustment. When 2 consecutive aPTT within target range of 80 - 114 seconds, change aPTT to once every 24 hours with A.M. labs while on heparin. RN to order required aPTT - Per Protocol, Routine, Indication: ACS (STEMI vs NSTEMI vs UA) Rate/Dose Change 09/18/2016 12:42 AM EST 1,050 Units/hr 21 mL/hr New Bag 09/18/2016 12:14 AM EST 800 Units/hr 16 mL/hr lamoTRIgine (LaMICtal) tablet 150 mg Given 09/17/2016 9:44 PM EST 150 mg 150 mg, Oral, ONCE, 1 dose, On Madhuri 09/17/16 at 2000, Routine lamoTRIgine (LaMICtal) tablet 150 mg Given [...] Routine morphine 4 mg/mL carpuject 5 mg Given 09/17/2016 5:28 PM EST 5 mg 5 mg, Intravenous, ONCE, 1 dose, On Wed09/17/16 at 1728, STAT nitroGLYcerin (NITROSTAT) 0.4 mg SL tabl et 1 dose, Starting on Wed09/17/16 at 1657, Until Wed at 1658, YANIRA MEDINA: cabinet override nitroGLYcerin (NITROSTAT) SL tablet 0.4 [...] Given 09/18/2016 10:43 AM EST 0.4 mg ondansetron (ZOFRAN) injection 4 mg Given 09/17/2016 4:54 PM EST 4 mg 4 mg, Intravenous, ONCE, 1 dose, On Madhuri 09/17/16 at 1653, STAT pantoprazole (PROTONIX) tablet 20 mg Given 09/19/2016 [...] Given 09/18/2016 12:18 AM EST 100 mg phenytoin (DILANTIN) ER capsule 200 mg Given 09/17/2016 6:26 PM EST 200 mg 200 mg, Oral, ONCE, 1 dose, On Madhuri 09/17/16 at 1817, Routine prochlorperazine (COMPAZINE) injection 1 0 mg Given 09/17/2016 5:47 PM EST 10 mg 10 mg, Intravenous, ONCE, 1 dose, On Madhuri 09/17/16 at 1741, STAT sodium chloride [...] Given 09/18/2016 12:18 AM EST 5 mLs sodium chloride 0.9% 500 mL IV bolus Given 09/19/2016 10:12 AM EST Intravenous, ONCE, 1 dose, On 09/19/16 at 1030 sodium chloride 0.9% infusion New Bag 09/18/2016 12:02 PM EST 150 mL/hr 150 mL/hr 150 mL/hr, Intravenous, CONTINUOUS, Starting on Wed09/18/16 at 1159, Until Wed09/18/16 at 1558, Cath (Day of Procedure) sodium chloride 0.9% infusion Continued Bag 09/18/2016 5:05 PM 100 mL/hr 100 mL/hr 100 mL/hr, Intravenous, EST CONTINUOUS, Starting on Wed09/18/16 at 1715, Until Wed09/18/16 at 2014, Recovery (Recovery-Hospital Unit) traZODone (DESYREL) tablet 50 mg Given 09/19/2016 2:57 AM EST 50 mg 50 mg, Oral, ONCE, 1 dose, On 09/19/16 at 0315, Routine documented in this encounter Active and [...] area)1700 (Automatically Held - Provider: Admin Adt)1758 ([facility] Unhold - Provider: Admin Adt) 80 mg, Oral, EVERY EVENING, First dose o n Wed09/18/16 at 0030, Until Discontinued, Routine citalopram (CeleXA) tablet 40 mg 0853 (G iven - Provider: Sabrina Kovacs RN)1551 (DEC Hold - Provider: Admin Adt - Reason: Transfer to a Procedural area)1758 ([facility] Unhold - Provider: Admin Adt) 0815 (Given - Provider: Iva Mccray RN) 40 mg, Oral, DAILY, First dose on Wed at 0900, Until Discontinued, Routine diaZEPam (VALIUM) tablet 5 mg (COMPLETED) 1534 (Given - Provider: Sabrina Kovacs RN) 5 mg, Oral, ONCE, 1 dose, Wed09/18/16 a t 1159, Cath (Day of Procedure), Routine diphenhydrAMINE (BENADRYL) capsule 25 mg (COMPLETED) 1534 (Given - Provider: Sabrina Kovcas RN) 25 mg, Oral, ONCE, 1 dose, Wed09/18/16 at 1159, Cath (Day of Procedure), Routine gabapentin (NEURONTIN) capsule 300 mg 00 14 (Given - Provider: Maya Pantoja RN)0853 (Given - Provider: Sabrina Kovacs RN)1518 (Given - Provider: Sabrina Kovacs RN)1551 (DEC Hold - Provider: Admin Adt - Reason: Transfer to a Procedural area) 0819 (Given - Provider: Iva crook RN)1401 (Given - Provider: Constance Cobb RN) 300 mg, Oral, 3 TIMES DAILY, First dose on Madhuri 09/17/16 at 2349, Until Discontinued, Routine 175 (DEC Unhold - Provider: Admin Adt)2130 (Given - Provider: Johanna Garcia RN) lamoTRIgine (LaMICtal) tablet 150 mg (COMPLETED) 2143 (Given - Provider: Maya Pantoja RN - Comment: Remaining 50mg to complete dose for total 150mg finally arrived.) 150 mg, Oral, ONCE, 1 dose, Madhuri 09/17/16 at 2000, Routine lamoTRIgine (LaMICtal) tablet 150 mg 234 (Not Given - Provider: Maya Pantoja RN - Reason: See comment - Comment: Pt already previously given dose down in ED [facility].) 0853 (Given - Provider: Sabrina conn RN)1551 ([facility] Hold - Provider: Admin Adt - Reason: Transfer to a Procedural area)175 (DEC Unhold - Provider: Admin Adt)2231 (Given - Provider: Johanna Garcia RN) 0817 (Given - Provider: Iva Mccray RN) 150 mg, Oral, 2 TIMES DAILY, First dose on Madhuri 09/17/16 at 2349, Until Discontinued, Routine lisinopril (PRINIVIL;ZESTRIL) tablet 5 mg 0853 (Given - Provider: Sabrina Kovacs RN)1551 ([facility] Hold - Provider: Admin Adt - Reason: Transfer to a Procedural area)1758 (DEC Unhold - Provider: Admin Adt) 0811 (Hold - Provider: Constance Cobb, TRES - Reason: See comment - Comment: due to creatinine bump per MD.) 5 mg, Oral, DAILY, First dose on Wed at 0900, Until Discontinued, Routine methyl salicylate-menthol (BENGAY) 15-10 % cream 1400 (Given - Provider: Constance Cobb, TRES) Topical (Top), 2 TIMES DAILY, First dose on Wed09/19/16 at 1300 mometasone (ASMANEX) aerosol 1 puff 1551 (DEC Hold - Provider: Admin Adt - Reason: Transfer to a Procedural area)175 (DEC Unhold - Provider: Admin Adt)223 (Given - Provider: Johanna Garcia, TRES) 1 puff (220 mcg), Inhalation, NIGHTLY, F irst dose on Wed09/18/16 at 2100, Until Discontinued, Fluticasone changed per P[employer] approved therapeutic interchange policy, Routine morphine 4 mg/mL carpuject 5 mg (COMPLETED) 1727 (Give n - Provider: Yanira Medina, TRES) 5 mg, Intravenous, ONCE, 1 dose, Madhuri 09/17/16 at 1728, STAT ondansetron (ZOFRAN) injection 4 mg (COMPLETED) 1653 ( Given - Provider: Yanira Medina, TRES) 4 mg, Intravenous, ONCE, 1 dose, Madhuri 09/17/16 at 1653, STAT pantoprazole (PROTONIX) tablet 20 mg 085 3 (Given - Provider: Sabrina Kovacs RN)155 (DEC Hold - Provider: Admin Adt - Reason: Transfer to a Procedural area)175 (DEC Unhold - Provider: Admin Adt) 0816 (Given - Provider: Iva Mccray, TRES) 20 mg, Oral, DAILY, First dose on Wed at 0900, Until Discontinued, DO NOT CRUSH OR OPEN, Routine phenytoin (DILANTIN) ER capsule 100 mg 0 018 (Given - Provider: Maya Pantoja RN)0853 (Given - Provider: Sabrina Kovacs RN)155 ([facility] Hold - Provider: Admin Adt - Reason: Transfer to a Procedural area)175 (DEC Unhold - Provider: Admin Adt)2133 (Given - Provider: Johanna Garcia, TRES) 0820 (Given - Provider: Iva Mccray RN) 100 mg, Oral, 2 TIMES DAILY, First dose on Madhuri 09/17/16 at 2349, Until Discontinued, Routine phenytoin (DILANTIN) ER capsule 100 mg 0 018 (Given - Provider: Maya Pantoja RN)155 ([facility] Hold - Provider: Admin Adt - Reason: Transfer to a Procedural area)1758 ([facility] Unhold - Provider: Admin Adt)213 (Given - Provider: Johanna Garcia, TRES) 100 mg, Oral, NIGHTLY, First dose on Madhuri 09/17/16 at 2349, Until Discontinued, In addition to 100mg BID dose, Routine phenytoin (DILANTIN) ER capsule 200 mg (COMPLETED) 182 6 (Given - Provider: Yanira Medina, TRES) 200 mg, Oral, ONCE, 1 dose, Madhuri 09/17/16 at 1817, Routine prochlorperazine (COMPAZINE) injection 10 mg (COMPLETE D) 1747 (Given - Provider: Yanira Medina, TRES) 10 mg, Intravenous, ONCE, 1 dose, Madhuri 09/17/16 at 1741, STAT sodium chloride 0.9 % flush 5 mL 0018 (G iven - Provider: Maya Pantoja RN)0900 (Given - Provider: Sabrina Kovacs RN)1551 ([facility] Hold - Provider: Admin Adt - Reason: Transfer to a Procedural area)175 ([facility] Unhold - Provider: Admin Adt)213 (Given - Provider: Johanna Garcia RN) 0822 (Given - Provider: Iva Mccray RN) 5 mL, Intravenous, 2 TIMES DAILY, First dose on Madhuri 09/17/16 at 2349, Until Discontinued, Routine sodium chloride 0.9 % flush 5 mL 0018 (G iven - Provider: Maya Pantoja RN)1147 (Given - Provider: Sabrina Kovacs RN)1551 ([facility] Hold - Provider: Admin Adt - Reason: Transfer to a Procedural area)1758 ([facility] Unhold - Provider: Admin Adt) 1149 (Not Given - Provider: Constance Cobb, TRES - Reason: See comment - Comment: flushed [...] mg (COMPLETED) 0257 (Given - Provider: Johanna Garcia, TRES) 50 mg, Oral, ONCE, 1 dose, 09/19/16 at 0315, Routine Continuous Medication Order 09/17/2016 09/18/2016 09/19/2016 heparin 25,000 units in dextrose 5% 500 mL infusion (C ANCELED) 1715 (New Bag - Provider: Yanira Medina, TRES)1847 (Rate/Dose Verify - Provider: Yanira Medina, TRES) 0-5,000 Units/hr (0-100 mL/hr), Intraven ous, at [...] (Rate/Dose Change - Provider: Maya Pantoja RN)1551 (DEC Hold [...] once every 24 hours with A.M. labs whyuko mcmullen on heparin. RN to order required [...] Garcia, TRES) 0614 (Given - Provider: Johanna Garcia, TRES) 650 mg, Oral, EVERY 4 HOURS PRN, Startin g 09/18/16 at 2155, Until 09/19/16 at 1758, Pain, Maximum dose of acetaminophen is 4000 mg from all sources in 24 hours., Routine cyclobenzaprine (FLEXERIL) tablet 5 mg 1 551 (DEC Hold - Provider: Admin Adt - Reason: Transfer to a Procedural area)1758 ([facility] Unhold - Provider: Admin Adt) 5 mg, Oral, NIGHTLY PRN, Starting Madhuri at 2347, Until 09/19/16 at 1758, Muscle spasms, Routine heparin (porcine) injection 0-4,000 Units (CANCELED) 0042 (Given - Provider: Maya Pantoja RN)155 ([facility] Hold - Provider: Admin Adt - Reason: Transfer to a Procedural area)1758 ([facility] Unhold - Provider: Admin Adt) 0-4,000 Units, Intravenous, [facility], Starting Madhuri 09/17/16 at 2347, Until [...] Chavo Lawton II, MD) ONCE PRN, Starting Wed09/18/16 at 1632, Until Wed09/18/16 at 1633, Cath (Intra-Procedure), Routine lidocaine (XYLOCAINE) 10 mg/mL (1 %) injection 3 mg 155 ([facility] Hold - Provider: Admin Adt - Reason: Transfer to a Procedural area)1758 ([facility] Unhold - Provider: Admin Adt) 3 mg (0.3 mL), Subcutaneous, ONCE PRN, 1 dose, Starting Madhuri 09/17/16 at 2347, Until 09/19/16 at 1758, for discomfort with PIV insertion, Routine lidocaine (XYLOCAINE) 10 mg/mL (1 %) injection 3 mg 1551 ([facility] Hold - Provider: Admin Adt - Reason: Transfer to a Procedural area)175 ([facility] Unhold - Provider: Admin Adt) 3 mg (0.3 mL), Subcutaneous, ONCE PRN, 1 dose, Starting Madhuri 09/17/16 at 2347, Until 09/19/16 at 1758, for discomfort with PIV insertion, Routine nitroGLYcerin (NITROSTAT) SL tablet 0.4 mg 1658 (Given - Provider: Yanira Medina RN) 155 ([facility] Hold - Provider: Admin Adt - R luigi: Transfer to a Procedural area)175 ([facility] Unhold - Provider: Admin Adt) 0.4 mg, Sublingual, EVERY 5 MIN PRN, 3 d oses, Starting Madhuri 09/17/16 at 1654, Until 09/19/16 at 1758, Chest pain, SL nitroglycerin may be repeated every 5 minutes as needed up to 3 doses, STAT nitroGLYcerin (NITROSTAT) SL tablet 0.4 mg 1043 (Given - Provider: Sabrina Kovacs RN)1049 (Given - Provider: Sabrina Kovacs RN)155 ([facility] Hold - Provider: Admin Adt - Reason: Transfer to a Procedural area)175 ([facility] Unhold - Provider: Admin Adt) [...] chloride 0.9 % flush 5-20 mL 1551 ([facility] Hold - Provider: Admin Adt - Reason: Transfer to a Procedural area)175 ([facility] Unhold - Provider: Admin Adt) 5-20 mL, Intravenous, EVERY 1 MIN PRN, S tarting Madhuri 09/17/16 at 2347, Until 09/19/16 at 1758, flush, Flush pertains to all indwelling lines. Flush per protocol found in the job aid using the link provided on this medication record., Routine sodium chloride 0.9 % flush 5-20 mL 1551 (DEC Hold - Provider: Admin Adt - Reason: Transfer to a Procedural area)1758 (DEC Unhold - Provider: Admin Adt) 5-20 mL, Intravenous, EVERY 1 MIN PRN, S tarting Madhuri 09/17/16 at 2347, Until 09/19/16 at 1758, flush, Flush pertains to all indwelling lines. Flush per protocol found in the job aid using the link provided on this medication record., Routine documented in this encounter Care Teams Assistant Executive Housekeeper Relationship Specialty Start Date End Date Aissatou Briggs APRN PCP - General Internal Medicine 07/29/[address] [place] [address] [place] [address] documented as of this encounter
--- OUTSIDE RECORDS SUMMARY | 2022-08-15 01:35 | XMS_ITS | Encounter Summary ---
:1955 Author Organization [facility] [place] [address] Care Team Providers Name Role Phone Jairon Gomez MD Primary Care Provider [phone] Reason for Visit Reason Onset Date Comments Medication Refill 06/30/2016 Encounter Details Date Type Department Care Team Description 06/30/2016 Refill Neurology at [facility] Kathia Allen APRN [facility] [place] [address] NEUROLOGY DEPT. [phone] [place], [place] [address] (Wo rk) Social History Tobacco [...] Description 09/04/2022 Ancillary Procedure Radiology Aissatou Briggs, Canmanoj eled (D-SCHED ERROR CUPOLA MAN / CORRECTION ) [address] [place] [address] (Wo rk) documented as of this encounter Visit Diagnoses Not on filedocumented in this encounter Care Teams Software Licensing Analyst Relationship Specialty Start Date End Date Jairon Gomez MD PCP - General 09/23/10 07/28/16 [address] [place], [place] [id number] documented as of this encounter
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
--- OUTSIDE RECORDS SUMMARY | 2022-08-15 01:35 | XMS_ITS | Encounter Summary ---
:1955 Author Organization [facility] [place] [address] Care Team Providers Name Role Phone Aissatou Briggs APRN Primary Care Provider Reason for Visit Auth/Cert Specialty Diagnoses / Procedures Referred By Contact Refer red To Contact Diagnoses Unstable angina Referral ID Status Reason Start Date Expiration Date Visits Requ ested Visits Authorized [id number] 1 1 Encounter Details Date Type Department Care Team Description 09/17/2016 Office Visit Cardiology at [facility] Skyler Lazcano, ASCVD (arteriosclerotic card iovascular disease); [facility] MD [place] PATIENT NOT SEEN Drive [facility] [address] CARDIOLOGY DEPT. [phone] [place] [address] Social History Tobacco Use Types Packs/Day Years Used Date Former Smoker Cigarettes Quit: 05/14/20 08 Smokeless Tobacco: Never Used Alcohol Use Standard Drinks/Week Comments No 0 (1 standard drink = 0.6 oz pure alcoho l) Sex Assigned at Date Recorded Not on file documented as of this encounter Last Filed Vital Signs Vital Sign Reading Time Taken Comments Blood Pressure 140/80 09/17/2016 2:43 PM EST Pulse 68 09/17/2016 2:43 PM EST Temperature - - Respiratory Rate - - Oxygen Saturation 95% 09/17/2016 2:43 PM EST on room air Inhaled Oxygen Concentration - - Weight 68.9 kg (152 lb) 09/17/2016 2:43 PM EST per margie ent Height 162.6 cm (5' 4) 09/17/2016 2:43 PM EST Body Mass Index 26.09 09/17/2016 2:43 PM EST documented in this encounter Progress Notes Skyler Lazcano MD - 09/17/2016 3:00 PM EST Patient was having crushing chest pain the waiting area and was sent to the ED for triage and admission documented in this encounter Plan of Treatment Upcoming Encounters Date Type Specialty Care Team Description 09/04/2022 Ancillary Procedure Radiology Aissatou Briggs, Berto velázquez (D-SCHED ERROR SHEETER HELPER / CORRECTION ) [address] [place] [address] (Wo rk) documented as of this encounter Procedures Procedure Name Priority Date/Time Associated Diagnosis Comme nts EKG 12-LEAD Routine 09/17/2016 3:19 PM ASCVD (arterioscleroti c Results for this EST cardiovascular disease) proc edure are in the results section. documented in this encounter Results EKG 12 Lead (09/17/2016 3:19 PM EST) Component Value Ref Range Test Analysis Performed Pathologis t Method Time At Signature Ventricular rate 70 BPM MUSE SYSTEM Atrial Rate 70 BPM MUSE SYSTEM P-R Interval 120 ms MUSE SYSTEM QRS Duration 76 ms MUSE SYSTEM Q-T Interval 466 ms MUSE SYSTEM QTC Calculated 503 ms MUSE SYSTEM (Bezet) Calculated P [place] 39 degrees MUSE SYSTEM Calculated R [place] 12 degrees MUSE SYSTEM Calculated T [place] -18 degrees MUSE SYSTEM INTERPRETATION Normal sinus rhythm MUSE SYSTEM Baseline artifact Prolonged QTc Nonspecific T wave abnormality Lateral leads Abnormal ECG When compared with ECG of 01-APR-2015 14:43, No significant change was found Confirmed by MD ALY, DISHA ([id number]) on 09/17/2016 4:49: 17 PM Specimen Anatomical Collection Method Collection Time Receive d Time (Source) Location / / Volume Laterality 09/17/2016 3:19 PM 6 4:49 EST PM EST Skyler Lazcano MD ECG ORDERABLES Performing Organization Address City/State/ZIP Code Phon e Number MUSE SYSTEM documented in this encounter Visit Diagnoses Diagnosis ASCVD (arteriosclerotic cardiovascular d isease) Unspecified cardiovascular disease DH PATIENT NOT SEEN documented in this encounter Care Teams Fur Stylist Relationship Specialty Start Date End Date Aissatou Briggs APRN PCP - General Internal Medicine 07/29/[address] [place] [address] documented as of this encounter
--- OUTSIDE RECORDS SUMMARY | 2022-08-15 01:35 | XMS_ITS | Encounter Summary ---
:1955 Author Organization [place] [address] Care Team Providers Name Role Phone Aissatou Briggs APRN Primary Care Provider Reason for Visit Reason Onset Date Comments Medication Refill 07/30/2016 Encounter Details Date Type Department Care Team Description 07/30/2016 Telephone Neurology at [facility] Constance Michelle, Medication Refill [facility] [place] [address] Social History Tobacco Use Types Packs/Day Years Used Date Former Smoker Cigarettes Quit: 05/14/20 08 Smokeless Tobacco: Never Used Alcohol Use Standard Drinks/Week Comments No 0 (1 standard drink = 0.6 oz pure alcoho l) Sex Assigned at Date Recorded Not on file documented as of this encounter Miscellaneous Notes Telephone Encounter - Constance Michelle CMA - 07/30/2016 4:03 PM EDT New Rx for HYDROcodone-acetaminophen 5-325 mg Tablet Mailed to requested pharmacy. . [facility]. documented in this encounter Plan of Treatment Upcoming Encounters Date Type Specialty Care Team Description 09/04/2022 Ancillary Procedure Radiology Aissatou Briggs, Berto velázquez (D-SCHED ERROR ASSOCIATE ENGINEER / CORRECTION ) [address] [place], [place] [id number] (Wo rk) documented as of this encounter Visit Diagnoses Not on filedocumented in this encounter Care Teams Cell Inspector Relationship Specialty Start Date End Date Aissatou Briggs APRN PCP - General Internal Medicine 07/29/[address] [place] [address] documented as of this encounter
--- OUTSIDE RECORDS SUMMARY | 2022-08-15 01:35 | XMS_ITS | Encounter Summary ---
:1955 Author Organization [facility] [place] [address] Care Team Providers Name Role Phone Aissatou Briggs APRN Primary Care Provider Reason for Visit Reason Onset Date Comments Medication Refill 04/27/2016 Encounter Details Date Type Department Care Team Description 04/27/2016 Telephone Neurology at [facility] Gustavo Hayes, Medication Refill [facility] [place] [address] [facility] [phone] NEUROLOGY DEPT. [place], [place] [address] (Wo rk) Social History Tobacco Use Types Packs/Day Years Used Date Former Smoker Cigarettes Quit: 05/14/20 08 Smokeless Tobacco: Never Used Alcohol Use Standard Drinks/Week Comments No 0 (1 standard drink = 0.6 oz pure alcoho l) Sex Assigned at Date Recorded Not on file documented as of this encounter Miscellaneous Notes Telephone Encounter - Constance Michelle CMA - 04/27/2016 1:51 PM EDT Refill request prepped and sent to Dr. Hayes for review and signature. Telephone Encounter - Flash Ghosh - 04/27/2016 12:56 PM EDT Name of Med: HYDROcodone-acetaminophen Strength of Pills: 5-325 mg Dosing Directions: Take 1 tablet by mouth 2 times daily as needed for Pain. Mail to [facility] - Oral 30 or 90 Day: 30 Pharmacy: [facility] [place], [place] - [address] [place] [address] Last Appointment: 04/02/15 Next Appointment: 05/19/16 Is Patient out of Medication?: yes documented in this encounter Plan of Treatment Upcoming Encounters Date Type Specialty Care Team Description 09/04/2022 Ancillary Procedure Radiology Aissatou Briggs, Berto velázquez (D-SCHED ERROR INTERFACE ANALYST / CORRECTION ) [address] [place] [address] (Wo rk) documented as of this encounter Visit Diagnoses Not on filedocumented in this encounter Care Teams Syrup Blender Relationship Specialty Start Date End Date Aissatou Briggs, INTERFACE ANALYST PCP - General Internal Medicine 07/29/[address] [place] [address] documented as of this encounter
--- OUTSIDE RECORDS SUMMARY | 2022-08-15 01:35 | XMS_ITS | Encounter Summary ---
:1955 Author Organization [place] [address] Care Team Providers Name Role Phone ChesterYrise Marielle GRAHAM Primary Care Provider Reason for Visit Reason Onset Date Comments Medication Refill 09/01/2016 Med Refill Encounter Details Date Type Department Care Team Description 09/01/2016 Telephone Neurology at [facility] Katerine De Leon, Medication Refill ([facility] RAD TECH Refill) [place] [address] NEUROLOGY DEPT. [place], [place] [address] (Wo rk) Social History Tobacco Use Types Packs/Day Years Used Date Former Smoker Cigarettes Quit: 05/14/20 08 Smokeless Tobacco: Never Used Alcohol Use Standard Drinks/Week Comments No 0 (1 standard drink = 0.6 oz pure alcoho l) Sex Assigned at Date Recorded Not on file documented as of this encounter Miscellaneous Notes Telephone Encounter - Shayd Ramírez RN - 09/07/2016 3:[address] Hayes, if patient has filled a script from another provider and another pharmacy then thepharmacy is not to fill the current script from him. Pharmacist acknowledged and agreed. Shady Telephone Encounter - Rosemarie Perera - 09/07/2016 2:31 PM EST Caller: Pradeep If not Pt / Relation to pt: at [facility] Caller Contact Number: [phone] Best time to reach pt back: Soon - as patient would like their prescription. Reason for call: Pradeep from [facility] is calling in regarding this prescription and would like clarification before she will process this for the patient. Pradeep would like a call back. Before 2:30pm - Informed caller that nurse will call back by the end of the day After 230 pm - Informed caller that if the nurse does not call back by the end of the day they will be called tomorrow AM - Best number for tomorrow am: Telephone Encounter - Constance Michelle CMA - 09/01/2016 2:03 PM EDT Refill request prepped and sent to Dr. Hayes for review and signature. Telephone Encounter - Rosemarie Perera - 09/01/2016 1:32 PM EDT Caller: Miguel If not pt relation to pt: Contact Phone #: [phone] Name of Med: Hydrocodone-acetaminophen Strength of Pills: 5-325 mg tabletl Dosing Directions: Take 1 tablet by mouth 2 times daily as needed for pain. Patient is at [facility] waitingfor this prescription. 30 or 90 Day: 54 tablets Pharmacy: Patient is at [facility] waiting for the prescription Last Appointment: 05/19/16 Next Appointment: NA Is Patient out of Medication?: yes documented in this encounter Plan of Treatment Upcoming Encounters Date Type Specialty Care Team Description 09/04/2022 Ancillary Procedure Radiology Aissatou Briggs Canc eled (D-SCHED ERROR RAD TECH / CORRECTION ) [address] [place] [address] (Wo rk) documented as of this encounter Visit Diagnoses Not on filedocumented in this encounter Care Teams Track Service Worker Relationship Specialty Start Date End Date Chester, Aissatou A, RAD TECH PCP - General Internal Medicine 07/29/[address] [place] [address] documented as of this encounter
--- OUTSIDE RECORDS SUMMARY | 2022-08-15 01:35 | XMS_ITS | Encounter Summary ---
:1955 [place] [address] Care Team Providers Name Role Phone Jairon Gomez MD Primary Care Provider [phone] Encounter Details Date Type Department Care Team Description 07/24/2016 Hospital Encounter Radiology Library at [facility], Kiki Marti [facility] [place] [address] NEUROSURGERY [phone] [place], [place] [address] (Wo rk) Social History Tobacco [...] 0 mcg/actuation nasal spray route as needed. HYDROcodone-acetaminophen Take 1 tablet by 54 tablet 0 06/0307/30/2016 ([facility]CO) 5-325 mg Tablet mouth 2 times daily as needed for Pain. Mail to [facility] cyclobenzaprine (FLEXERIL) Take 5 mg by mouth [...] mouth nightly. documented as of this encounter Plan of Treatment Upcoming Encounters Date Type Specialty Care Team Description 09/04/2022 Ancillary Procedure Radiology Aissatou Briggs Canc eled (D-SCHED ERROR LEGAL ASSISTANT / CORRECTION ) [address] [place] [address] (Wo rk) documented as of this encounter Procedures Procedure Name Priority Date/Time Associated Diagnosis Comme nts FILM LIBRARY Routine 07/24/2016 12:00 AM Pain Results for this STORAGE ONLY MR EDT procedure ar e in SPINE the results section. documented in this encounter Results Film Library- Storage Only MR Spine (07/24/2016 12:00 AM EDT) Specimen (Source) Anatomical Location Collection Method / Collectio n Time Received Time / Laterality Volume Narrative [facility] - 08/18/2016 9:20 PM EDT This exam is for storage only and is aut o-finalizing. Hua Bullard MD IMG FILM LIBRARY ORDERABLES Performing Organization Address City/State/ZIP Code Phon e Number [place], [place] documented in this encounter Visit Diagnoses Diagnosis Pain Generalized pain documented in this encounter Care Teams Entry Specialist Relationship Specialty Start Date End Date Jairon Gomez MD PCP - General 09/23/10 07/28/[address] [place] [address] documented as of this encounter
--- OUTSIDE RECORDS SUMMARY | 2022-08-15 01:35 | XMS_ITS | Encounter Summary ---
:1955 [place] [address] Care Team Providers Name Role Phone Aissatou Briggs APRN Primary Care Provider Encounter Details Date Type Department Care Team Description 08/14/2016 Hospital Encounter Radiology Library at [facility], Kiki Marti [facility] [place] [address] NEUROSURGERY [phone] [place], [place] [address] (Wo rk) Social History Tobacco [...] Take 1 tablet by 54 tablet 0 07/0309/01/2016 (NORCO) 5-325 mg Tablet mouth 2 times daily as needed for Pain. Mail to [facility] cyclobenzaprine (FLEXERIL) Take 5 mg by [...] Radiology Aissatou Briggs Canc eled (D-SCHED ERROR PEER SUPPORT SPECIALIST / CORRECTION ) [address] [place] [address] (Wo rk) documented as of this encounter Procedures Procedure Name Priority Date/Time Associated Comments Diagnosis FILM LIBRARY STORAGE Routine 08/14/2016 12:00 AM Pain Results for this ONLY ULTRASOUND EDT procedure ar mitzi in STUDY the results section. documented in this encounter Results Film Library- Storage Only Ultrasound Study (08/14/2016 12:00 AM EDT) Specimen (Source) Anatomical Location Collection Method / Collectio n Time Received Time / Laterality Volume Narrative [facility] [place] - 08/18/2016 9:15 PM EDT This exam is for storage only and is aut o-finalizing. Hua Bullard MD IMLizzie FILM LIBRARY ORDERABLES Performing Organization Address City/State/ZIP Code Phon e Number [place], [place] documented in this encounter Visit Diagnoses Diagnosis Pain Generalized pain documented in this encounter Care Teams Rail Car Repairman Relationship Specialty Start Date End Date Aissatou Briggs APRN PCP - General Internal Medicine 07/29/16 [address] [place] [address] documented as of this encounter
--- OUTSIDE RECORDS SUMMARY | 2022-08-15 01:35 | XMS_ITS | Encounter Summary ---
:1955 Author Organization [facility] [place] [address] Care Team Providers Name Role Phone Jiaron Gomez MD Primary Care Provider [phone] Reason for Visit Reason Onset Date Comments Medication Refill 02/20/2016 Encounter Details Date Type Department Care Team Description 02/20/2016 Refill [place]rology [place] [facility] Gustavo Hayes MD [facility] [place] [address] NEUROLOGY DEPT. [phone] [place], [place] [address] (Wo rk) Social History Tobacco Use Types Packs/Day Years Used Date Former Smoker Cigarettes Quit: 05/14/20 08 Smokeless Tobacco: Never Used Alcohol Use Standard Drinks/Week Comments No 0 (1 standard drink = 0.6 oz pure alcoho l) Sex Assigned at Date Recorded Not on file documented as of this encounter Miscellaneous Notes Telephone Encounter - Saima Thapa - 02/20/2016 4:06 PM EDT Name of Med: hydrocodone-acetaminophen Strength of Pills: 5-325 mg Dosing Directions: Take 1 tablet by mouth 2 times daily as needed for Pain. Mail to [facility] 30 or 90 Day: 30 day Pharmacy: [facility] Last Appointment: 04/02/15 Dr. Hayes Next Appointment: 04/13/16 Dr. Hayes Is Patient out of Medication?: No documented in this encounter Plan of Treatment Upcoming Encounters Date Type Specialty Care Team Description 09/04/2022 Ancillary Procedure Radiology Aissatou Briggs Canc eled (D-SCHED ERROR CAREER DEVELOPMENT COUNSELOR / CORRECTION ) [address] [place] [address] (Wo rk) documented as of this encounter Visit Diagnoses Not on filedocumented in this encounter Care Teams Career Transition Specialist Relationship Specialty Start Date End Date Jairon Gomez MD PCP - General 09/23/10 07/28/[address] [place], [place] [address] documented as of this encounter
--- OUTSIDE RECORDS SUMMARY | 2022-08-15 01:35 | XMS_ITS | Encounter Summary ---
:1955 Author Organization [facility] [place] [address] Care Team Providers Name Role Phone ChesterAissatou APRN Primary Care Provider Reason for Visit Reason Onset Date Comments Medication Refill 09/01/2016 Encounter Details Date Type Department Care Team Description 09/01/2016 Refill Neurology at [facility] [place] Gustavo Hayes MD [facility] [place] [address] [place] [address] NEUROLOGY DEPT. [phone] [place], [place] [address] (Wo rk) Social History Tobacco Use Types Packs/Day Years Used Date Former Smoker Cigarettes Quit: 05/14/20 08 Smokeless Tobacco: Never Used Alcohol Use Standard Drinks/Week Comments No 0 (1 standard drink = 0.6 oz pure alcoho l) Sex Assigned at Date Recorded Not on file documented as of this encounter Miscellaneous Notes Telephone Encounter - Constance Michelle CMA - 09/02/2016 11:21 AM EDT I called the the pharmacy and to let them know that Miguel was not called because his refill was not done yet or mailed out to the requested pharmacy. The pharmacist stated she tried to explain there was nothing they could do until they received the actual script. Telephone Encounter - Mavis Lemus - 09/02/2016 11:09 AM EDT Luisa Brasher from the patient's pharmacy in [facility] called to get an update on this prescription,as Miguel is there waiting for it. Please give her a call when it has been sent/mailed/ whatever is happening with it. [phone]. Telephone Encounter - Thony Falcon - 09/01/2016 4:45 PM EDT Patient called in because he had to leave [facility] earlier before the prescription was ready. Hewould like to be called when the rx has been approved and signed by the provider, and he would prefer it be mailed to his home. It would seem there was some miscommunication based on what another one of his doctors had told him, which is why he thought he had to stop by the clinic in person. He is completely out of this medication. documented in this encounter Plan of Treatment Upcoming Encounters Date Type Specialty Care Team Description 09/04/2022 Ancillary Procedure Radiology Aissatou Briggs Canc eled (D-SCHED ERROR RECREATION SPECIALIST / CORRECTION ) [address] [place] [address] (Wo rk) documented as of this encounter Visit Diagnoses Not on filedocumented in this encounter Care Teams Sql Consultant Relationship Specialty Start Date End Date Aissatou Briggs, RECREATION SPECIALIST PCP - General Internal Medicine 07/29/16 [address] [place] [address] documented as of this encounter
--- OUTSIDE RECORDS SUMMARY | 2022-08-15 01:35 | XMS_ITS | Encounter Summary ---
:1955 Author Organization [facility] [place] [address] Care Team Providers Name Role Phone Jairon Gomez MD Primary Care Provider [phone] Encounter Details Date Type Department Care Team Description 05/19/2016 Office Visit [place]rology [place] [facility] [place]uca Hayes Localization-related [facility] MD Marielle epilepsy, [place] [address] NEUROLOGY DEPT. [phone] [place], [place] [address] (Wo rk) Social History Tobacco [...] Sign Reading Time Taken Comments Blood Pressure 112/56 05/19/2016 3:38 PM EDT Pulse 61 05/19/2016 3:38 PM EDT Temperature - - Respiratory Rate - - Oxygen Saturation - - Inhaled Oxygen Concentration - - Weight 59.9 kg (132 lb) 05/19/2016 3:38 PM EDT Height 162.6 cm (5' 4) 05/19/2016 3:38 PM EDT Body Mass Index 22.66 05/19/2016 3:38 PM EDT documented in this encounter Progress Notes Cuca Hayes MD - 05/19/2016 3:30 PM EDT [facility] Department [place] [address] Patient - Miguel Pérez Date of - 1955 PCP - JAIRON GOMEZ MD Established Patient Evaluation I saw Miguel Pérez today at the [facility] for a scheduled followup evaluation. 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 He comes to the office by himself. Primary care provider is Dr. Bellamy. Miguel reports that he is not experiencing any seizures. He cannot think of the last time he had one, he thinks maybe two or three years although he is not certain. He takes Dilantin and lamotrigine. He says that he never misses medications. He denies any side effects to these such as tremor, dizziness, diplopia. Miguel has had a significant issue with pain in his lower extremities. He has severe lower back pain and has had progressive worsening of the strength in his lower extremities. He is presently taking a variety of pain medications for this. He is beginning physical therapy. He is being prescribed supportive e-braces. On review of systems, he reports occasional trouble sleeping. He also reported headaches, tremors, restlessness, palpitations. He denied any feelings of depression. He scored a 6 out of 15 on a depression inventory and 8 on the quality of life scale. Blood pressure is 112/56, weight 132 pounds, and height is 5 feet 4 inches. His BMI is 22. I spent 15 minutes with Miguel, 10 minutes of this time were spent counseling him regarding his diagnosis. Patient has been stable from a seizure perspective on lamotrigine and Dilantin. His overall condition, however, has deteriorated. He is having increasing problems with ambulation. He has got a difficult social situation also as his has advanced diabetes and is disabled. He lives with his son who has schizophrenia. I would like Miguel to follow up with me in one year. 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
--- OUTSIDE RECORDS SUMMARY | 2022-08-15 01:35 | XMS_ITS | Encounter Summary ---
:1955 [place] [address] Care Team Providers Name Role Phone Aissatou Villavicencio APRN Primary Care Provider Reason for Visit Auth/Cert Specialty Diagnoses / Procedures Referred By Contact Refer red To Contact Diagnoses Unstable angina Referral ID Status Reason Start Date Expiration Date Visits Requ ested Visits Authorized [id number] 1 1 Encounter Details Date Type Department Care Team Description 09/18/2016 Hospital Encounter Non-[place] [address] Social History Tobacco Use Types Packs/Day [...] Team Description 09/04/2022 Ancillary Procedure Radiology Aissatou Villavicencio, Berto velázquez (D-SCHED ERROR FIELD ARTILLERY CANNONEER / CORRECTION ) [address] [place] [address] (Wo rk) documented as of this encounter Procedures Procedure Name Priority Date/Time Associated Comments Diagnosis ECHOCARDIOGRAM COMPLETE Routine 09/18/2016 8:39 Chest pain, R esults for this AM EST unspecified type procedure a re in the results section. documented in this encounter Results ECHOCARDIOGRAM COMPLETE (09/18/2016 8:39 AM EST) athologist Signature EF 40 HEARTLAB SYSTEM Anatomical Region Laterality Modality Other Specimen (Source) Anatomical Location Collection Method / Collectio n Time Received Time / Laterality Volume 09/18/2016 Narrative 09/18/2016 9:01 AM EST Procedure: ?Transthoracic Echocardiogram Patient: ?JUANA JUNAID Sánchez ? (Age): 1955(61y) Med Rec#: ? [id number] ?Sex: ?M ? [place] Loc: ? [facility] ?Ht / Wt: ??162(cm)/68(kg) Pt. Loc: ?Adult Floor ? BSA: ?1.73 Study Date: ?? 09/18/2016 ?Pt. Type: Inpatient Tape: ? Referring: Heike Mario Referring: AISSATOU VILLAVICENCIO A Reading: Carlos Núñez ([id number]) Diagnosis: *ICD-10-PCS Chest pain, unspecified (R0 7.9) [...] E-wave Vmax ?0.4 ?m/sec ? MV deceleration [id number] ?msec ? MV A-wave Vmax ?0.7 ?m/sec [...] ? Mid-Inferior ?Normal ? Mid-Inferoseptal ?Normal ? Lopeno-Septal ? Normal ? Lopeno-Anterior ? Normal ? Lopeno-Lateral ?Hypokinetic ? Lopeno-Inferior ? Normal ? Lopeno-Tip ?Normal ? This report has been electronically sign ed by: _ Carlos Núñez M.D. ? 09/18/2016 09:00:29 Images reviewed and interpretation ronald santos [facility] Cardiac Ultrasound Laboratory Procedure Note Carlos Núñez MD - 09/18/2016Format ting of this note might be different from the original. Procedure: Transthoracic Echocardiogram Patient: JUANA Sánchez (Age): [birth year]61y) Med Rec#: [id number] Sex: M Site Loc: [facility] Ht / Wt: 162(cm)/68(kg) Pt. Loc: Adult Floor BSA: 1.73 Study Date: 09/18/2016 Pt. Type: Inpatie nt Tape: Referring: Heike Mario Referring: AISSATOU VILLAVICENCIO A Reading: Carlos Núñez ([id number]) Diagnosis: *ICD-10-PCS Chest pain, unspecified (R0 7.9) [...] MV E-wave Vmax 0.4 m/sec MV deceleration [id number] msec MV A-wave Vmax 0.7 m/sec MV [...] Scarring/Thinning Mid-Posterolateral Scarring/Thinning Mid-Inferior Normal Mid-Inferoseptal Normal Lopeno-Septal Normal Lopeno-Anterior Normal Lopeno-Lateral Hypokinetic Lopeno-Inferior Normal Lopeno-Tip Normal This report has been electronically sign ed by: _ Carlos Núñez M.D. 09/18/2016 09:00: 29 Images reviewed and interpretation ronald santos [facility] Cardiac Ultrasound Laboratory Heike Mario MD ECHO ORDERABLES documented in this encounter Visit Diagnoses Not on filedocumented in this encounter Care Teams Area Director Of Home Health Sales Relationship Specialty Start Date End Date Aissatou Villavicencio APRN PCP - General Internal Medicine 07/29/16 [address] [facility] [address] documented as of this encounter
--- OUTSIDE RECORDS SUMMARY | 2022-08-15 01:35 | XMS_ITS | Encounter Summary ---
:1955 Author Organization [facility] [address] Care Team Providers Name Role Phone Aissatou Briggs APRN Primary Care Provider Encounter Details Date Type Department Care Team Description 07/31/2016 External Results [place]rology at [facility] [place]ga Clark, [facility] [place] [address] [facility] [phone] NEUROLOGY DEPT [place], [place] [address] (Wo rk) Social History Tobacco [...] Radiology Aissatou Briggs, Berto velázquez (D-SCHED ERROR CALL WORKER / CORRECTION ) [address], [place] [id number] (Wo rk) documented as of this encounter Procedures Procedure Name Priority Date/Time Associated Diagnosis Comme nts EMG SCAN Routine 07/29/2016 documented in this encounter Results Scan Doc: EMG (07/29/2016) Narrative This result has an attachment that is no t available. Helga Clark MD MEDIA MGR SCAN EXT ORDR/RSLT documented in this encounter Visit Diagnoses Not on filedocumented in this encounter Care Teams Shop Service Technician Relationship Specialty Start Date End Date Aissatou Briggs, SANTOS PCP - General Internal Medicine 07/29/[address] [place] [address] documented as of this encounter
--- OUTSIDE RECORDS SUMMARY | 2022-08-15 01:35 | XMS_ITS | Encounter Summary ---
:1955 Author Organization [facility] [place] [address] Care Team Providers Name Role Phone Aissatou Briggs APRN Primary Care Provider Reason for Visit Reason Onset Date Comments Medication Refill 09/03/2016 Encounter Details Date Type Department Care Team Description 09/03/2016 [place]ill [place] [facility] [place] [address] Social History Tobacco Use Types Packs/Day Years Used Date Former Smoker Cigarettes Quit: 05/14/20 08 Smokeless Tobacco: Never Used Alcohol Use Standard Drinks/Week Comments No 0 (1 standard drink = 0.6 oz pure alcoho l) Sex Assigned at Date Recorded Not on file documented as of this encounter Miscellaneous Notes Telephone Encounter - Constance Michelle CMA - 09/03/2016 10:35 AM EDT New Rx for HYDROcodone-acetaminophen 5-325 mg Tablet Mailed to requested pharmacy. . [facility].Patient called and notified per request. documented in this encounter Plan of Treatment Upcoming Encounters Date Type Specialty Care Team Description 09/04/2022 Ancillary Procedure Radiology Aissatou Briggs, Canc eber (D-SCHED ERROR PRESIDENT/GM PRODUCTION & LIVE EXPERIENCES / CORRECTION ) [address] [place], [place] [id number] (Wo rk) documented as of this encounter Visit Diagnoses Not on filedocumented in this encounter Care Teams Shipwright Helper Relationship Specialty Start Date End Date Aissatou Briggs APRN PCP - General Internal Medicine 07/29/[address] [place] [address] documented as of this encounter
--- OUTSIDE RECORDS SUMMARY | 2022-08-15 01:35 | XMS_ITS | Encounter Summary ---
:1955 [place] [address] Care Team Providers Name Role Phone Jairon Gomez MD Primary Care Provider Reason for Visit Reason Onset Date Comments Medication Refill 01/27/2016 Encounter Details Date Type Department Care Team Description 01/27/2016 Refill Neurology at [facility] Gustavo Hayes MD [facility] [place] [address] NEUROLOGY DEPT. [phone] [place], [place] [address] (Wo rk) Social History Tobacco [...] Radiology Aissatou Briggs Canc eled (D-SCHED ERROR ASSESSMENT SPECIALIST / CORRECTION ) [address] [place] [address] (Wo rk) documented as of this encounter Visit Diagnoses Not on filedocumented in this encounter Care Teams Centrifuge Separator Operator Relationship Specialty Start Date End Date Jairon Gomez MD PCP - General 09/23/10 07/28/[address] [place] [address] documented as of this encounter
--- OUTSIDE RECORDS SUMMARY | 2022-08-15 01:35 | XMS_ITS | Encounter Summary ---
:1955 [place] [address] Care Team Providers Name Role Phone Jairon Gomez MD Primary Care Provider [phone] Reason for Visit Reason Onset Date Comments Medication Refill 03/24/2016 Encounter Details Date Type Department Care Team Description 03/24/2016 [place]ill [place] [facility] [place] Hayes [place] [facility] [place] [address] NEUROLOGY DEPT. [phone] [place], [place] [address] (Wo rk) Social History Tobacco [...] Radiology Aissatou Briggs Canc eled (D-SCHED ERROR LAB SYSTEMS ANALYST / CORRECTION ) [address] [place] [address] (Wo rk) documented as of this encounter Visit Diagnoses Not on filedocumented in this encounter Care Teams Animal Rehabilitator Relationship Specialty Start Date End Date Jairon Gomez MD PCP - General 09/23/10 07/28/[address] [place] [address] documented as of this encounter
--- OUTSIDE RECORDS SUMMARY | 2022-08-15 01:35 | XMS_ITS | Encounter Summary ---
:1955 Author Organization [facility] [place] [address] Care Team Providers Name Role Phone Jairon Gomez MD Primary Care Provider [phone] Reason for Visit Reason Onset Date Comments Medication Refill 01/24/2016 Encounter Details Date Type Department Care Team Description 01/24/2016 Telephone Neurology at [facility] [place] Gustavo Hayes, Medication Refill [facility] [place] [address] [facility] [phone] NEUROLOGY DEPT. [place], [place] [address] (Wo rk) Social History Tobacco Use Types Packs/Day Years Used Date Former Smoker Cigarettes Quit: 05/14/20 08 Smokeless Tobacco: Never Used Alcohol Use Standard Drinks/Week Comments No 0 (1 standard drink = 0.6 oz pure alcoho l) Sex Assigned at Date Recorded Not on file documented as of this encounter Miscellaneous Notes Telephone Encounter - Constance Michelle CMA - 01/27/2016 9:52 AM EDT Refill request prepped and sent to Dr. Hayes for review and signature. He is currently away but patient is not out of medication. Telephone Encounter - Saima Thapa - 01/24/2016 4:30 PM EDT Name of Med: Hydrocodone-acetaminophen Strength of Pills: 5-325 mg Dosing Directions: Take 1 tab 2 x per day PRN for pain 30 or 90 Day: 30 day Pharmacy: Mail to [facility] Last Appointment: 04/02/15 Dr. Hayes Next Appointment: 04/13/16 Dr. Hayes Is Patient out of Medication?: No documented in this encounter Plan of Treatment Upcoming Encounters Date Type Specialty Care Team Description 09/04/2022 Ancillary Procedure Radiology Aissatou Briggs, Berto velázquez (D-SCHED ERROR DOCUMENT IMAGING SPECIALIST / CORRECTION ) [address] [place], [place] [id number] (Wo rk) documented as of this encounter Visit Diagnoses Not on filedocumented in this encounter Care Teams Replanting Machine Crew Relationship Specialty Start Date End Date Jairon Gomez MD PCP - General 09/23/10 07/28/[address] [place], [place] [address] documented as of this encounter
--- OUTSIDE RECORDS SUMMARY | 2022-08-15 01:35 | XMS_ITS | Encounter Summary ---
:1955 [place] [address] Care Team Providers Name Role Phone Jairon Gomez MD Primary Care Provider [phone] Encounter Details Date Type Department Care Team Description 07/28/2016 Hospital Encounter Radiology Library at [facility], Kiki Marti [facility] [place] [address] NEUROSURGERY [phone] [place], [place] [address] (Wo rk) Social History Tobacco [...] daily as needed for Pain. Mail to [facility] cyclobenzaprine (FLEXERIL) Take 5 mg [...] Radiology Aissatou Briggs Canc eled (D-SCHED ERROR WINDOWS SYSTEMS ENGINEER / CORRECTION ) [address] [place] [address] (Wo rk) documented as of this encounter Procedures Procedure Name Priority Date/Time Associated Diagnosis Comme nts FILM LIBRARY Routine 07/28/2016 12:00 AM Pain Results for this STORAGE ONLY CT EDT procedure ar e in HEAD the results section. documented in this encounter Results Film Library- Storage Only CT Head (07/28/2016 12:00 AM EDT) Specimen (Source) Anatomical Location Collection Method / Collectio n Time Received Time / Laterality Volume Narrative [facility] - 08/18/2016 9:17 PM EDT This exam is for storage only and is aut o-finalizing. Hua Bullard MD IMLizzie FILM LIBRARY ORDERABLES Performing Organization Address City/State/ZIP Code Phon e Number [place], [place] documented in this encounter Visit Diagnoses Diagnosis Pain Generalized pain documented in this encounter Care Teams Pneumatic Tube Operator Relationship Specialty Start Date End Date Jairon Gomez MD PCP - General 09/23/10 07/28/[address] [place] [address] documented as of this encounter
--- OUTSIDE RECORDS SUMMARY | 2022-08-15 01:35 | XMS_ITS | Encounter Summary ---
:1955 [place] [address] Care Team Providers Name Role Phone Jairon Gomez MD Primary Care Provider [phone] Reason for Visit Reason Onset Date Comments Medication Refill 03/23/2016 Encounter Details Date Type Department Care Team Description 03/23/2016 Refill Neurology at [facility] Gustavo Hayes MD [facility] [place] [address] NEUROLOGY DEPT. [phone] [place], [place] [address] (Wo rk) Social History Tobacco [...] Radiology Aissatou Briggs Canc eled (D-SCHED ERROR GOLF SHOE SPIKE ASSEMBLER / CORRECTION ) [address] [place] [address] (Wo rk) documented as of this encounter Visit Diagnoses Not on filedocumented in this encounter Care Teams Referral Coordinator Relationship Specialty Start Date End Date Jairon Gomez MD PCP - General 09/23/10 07/28/[address] [place] [address] documented as of this encounter
--- OUTSIDE RECORDS SUMMARY | 2022-08-15 01:35 | XMS_ITS | Encounter Summary ---
:1955 Author Organization [facility] [place] [address] Care Team Providers Name Role Phone Janet Briggsyce Marielle GRAHAM Primary Care Provider Reason for Visit Reason Onset Date Comments Medication Refill 09/08/2016 Encounter Details Date Type Department Care Team Description 09/08/2016 Telephone Neurology at [facility] Gustavo Hayes, Medication Refill [facility] [place] [address] [facility] [phone] NEUROLOGY DEPT. [place], [place] [address] (Wo rk) Social History Tobacco Use Types Packs/Day Years Used Date Former Smoker Cigarettes Quit: 05/14/20 08 Smokeless Tobacco: Never Used Alcohol Use Standard Drinks/Week Comments No 0 (1 standard drink = 0.6 oz pure alcoho l) Sex Assigned at Date Recorded Not on file documented as of this encounter Miscellaneous Notes Telephone Encounter - Shady Ramírez RN - 09/08/2016 3:37 PM EST Called and relayed message to Miguel. That the pharmacy called yesterday and reported that he had received a prescription from another provider and filled it at a different pharmacy which is directly inconflict with his Narcotic contract and per Dr. Hayes the pharmacy was not to fill his script. Shady RN Telephone Encounter - Mavis Lemus - 09/08/2016 3:18 PM EST Caller: self If not Pt / Relation to pt: Caller Contact Number: [phone] Best time to reach pt back: any Reason for call: Miguel states that his pharmacy wouldn't fill his hydrocodone- acetomenophin because of his narcotic contract, and he would like a call to explain what is going on. He's out of this medication. Before 2:30pm - Informed caller that nurse will call back by the end of the day After 230 pm - Informed caller that if the nurse does not call back by the end of the day they will be called tomorrow AM - Best number for tomorrow am: documented in this encounter Plan of Treatment Upcoming Encounters Date Type Specialty Care Team Description 09/04/2022 Ancillary Procedure Radiology Aissatou Briggs Canc eled (D-SCHED ERROR STRIP PRESSER / CORRECTION ) [address] [address] (Wo rk) documented as of this encounter Visit Diagnoses Not on filedocumented in this encounter Care Teams System Engineer Relationship Specialty Start Date End Date Aissatou Briggs APRN PCP - General Internal Medicine 07/29/[address] [place] [address] documented as of this encounter
--- OUTSIDE RECORDS SUMMARY | 2022-08-15 01:35 | XMS_ITS | Encounter Summary ---
:1955 [address] [facility] [place] [address] Care Team Providers Name Role Phone Jairon Gomez MD Primary Care Provider [phone] Reason for Visit Reason Onset Date Comments Medication Refill 04/27/2016 Encounter Details Date Type Department Care Team Description 04/27/2016 Telephone Neurology at [facility] Constance Michelle, Medication Refill [facility] [place] [address] Social History Tobacco Use Types Packs/Day Years Used Date Former Smoker Cigarettes Quit: 05/14/20 08 Smokeless Tobacco: Never Used Alcohol Use Standard Drinks/Week Comments No 0 (1 standard drink = 0.6 oz pure alcoho l) Sex Assigned at Date Recorded Not on file documented as of this encounter Miscellaneous Notes Telephone Encounter - Constance Michelle CMA - 04/27/2016 4:10 PM EDT New Rx for HYDROcodone-acetaminophen 5-325 mg Tablet Mailed to requested pharmacy. . [facility]. documented in this encounter Plan of Treatment Upcoming Encounters Date Type Specialty Care Team Description 09/04/2022 Ancillary Procedure Radiology Aissatou Briggs, Berto velázquez (D-SCHED ERROR RETAIL GIFT CARD MERCHANDISING / CORRECTION ) [address] [place], [place] [id number] (Wo rk) documented as of this encounter Visit Diagnoses Not on filedocumented in this encounter Care Teams Geothermal Electrical Engineer Relationship Specialty Start Date End Date Jairon Gomez MD PCP - General 09/23/10 07/28/[address] [place] [address] documented as of this encounter
--- OUTSIDE RECORDS SUMMARY | 2022-08-15 01:35 | XMS_ITS | Encounter Summary ---
:1955 [place] [address] Care Team Providers Name Role Phone Jairon Gmoez MD Primary Care Provider Reason for Visit Reason Onset Date Comments Medication Refill 05/25/2016 Encounter Details Date Type Department Care Team Description 05/25/2016 [place]ill [place] [facility] [facility] [place]avo Hayes [place] [facility] [place] [address] NEUROLOGY DEPT. [phone] [place], [place] [address] (Wo rk) Social History Tobacco Use Types Packs/Day Years Used Date Former Smoker Cigarettes Quit: 05/14/20 08 Smokeless Tobacco: Never Used Alcohol Use Standard Drinks/Week Comments No 0 (1 standard drink = 0.6 oz pure alcoho l) Sex Assigned at Date Recorded Not on file documented as of this encounter Miscellaneous Notes Telephone Encounter - Shady Ramírez RN - 05/26/2016 12:41 PM EDT Script faxed to the pharmacy. Shady Telephone Encounter - Shady Ramírez RN - 05/25/2016 4:32 PM EDT Patient requesting medication refill Last appt 05/22 Next appt not scheduled Telephone Encounter - Marisa Palmer - 05/25/2016 4:08 PM EDT Name of Med: hudrocodone-acetaminophen Strength of Pills: 5-325 mg tablet Dosing Directions: take 1 tablet by mouth 2 times daily as needed for pain, Mail to [facility] 30 or 90 Day: 30 Pharmacy: [facility] Last Appointment:05/22/2016 Next Appointment:pending Is Patient out of Medication?: yes documented in this encounter Plan of Treatment Upcoming Encounters Date Type Specialty Care Team Description 09/04/2022 Ancillary Procedure Radiology Aissatou Briggs Canc eled (D-SCHED ERROR CALL CENTER SUPERVISOR / CORRECTION ) [address] [place], [place] [address] (Wo rk) documented as of this encounter Visit Diagnoses Not on filedocumented in this encounter Care Teams Production Team Leader Relationship Specialty Start Date End Date Jairon Gomez MD PCP - General 09/23/10 07/28/[address] [place], [place] [id number] documented as of this encounter
--- OUTSIDE RECORDS SUMMARY | 2022-08-15 01:35 | XMS_ITS | Encounter Summary ---
:1955 [place] [address] Care Team Providers Name Role Phone Jairon Gomez MD Primary Care Provider [phone] Encounter Details Date Type Department Care Team Description 07/17/2016 Hospital Encounter Radiology Library at [facility], Kiki Marti [facility] [place] [address] NEUROSURGERY [phone] [place], [place] [address] (Wo rk) Social History Tobacco [...] daily as needed for Pain. Mail to [facility] cyclobenzaprine (FLEXERIL) Take 5 mg by [...] Radiology Aissatou Briggs Canc eled (D-SCHED ERROR TEMPERING MACHINE OPERATOR / CORRECTION ) [address] [place] [address] (Wo rk) documented as of this encounter Procedures Procedure Name Priority Date/Time Associated Diagnosis Comme nts FILM LIBRARY Routine 07/17/2016 12:00 AM Pain Results for this STORAGE ONLY DX EDT procedure ar e in SPINE the results section. documented in this encounter Results Film Library- Storage Only DX Spine (07/17/2016 12:00 AM EDT) Specimen (Source) Anatomical Location Collection Method / Collectio n Time Received Time / Laterality Volume Narrative [facility] - 08/18/2016 9:18 PM EDT This exam is for storage only and is aut o-finalizing. Hua Bullard MD IMG FILM LIBRARY ORDERABLES Performing Organization Address City/State/ZIP Code Phon e Number [place], [place] documented in this encounter Visit Diagnoses Diagnosis Pain Generalized pain documented in this encounter Care Teams Extrusion Utility Worker Relationship Specialty Start Date End Date Jairon Gomez MD PCP - General 09/23/10 07/28/[address] [place] [address] documented as of this encounter
--- OUTSIDE RECORDS SUMMARY | 2022-08-15 01:35 | XMS_ITS | Encounter Summary ---
:1955 Author Organization [facility] [address] Care Team Providers Name Role Phone Aissatou Briggs APRN Primary Care Provider Reason for Visit Reason Onset Date Comments Medication Refill 07/30/2016 Encounter Details Date Type Department Care Team Description 07/30/2016 Refill Neurology at [place] Katerine De Leon APRN [facility] [place] [address] NEUROLOGY DEPT. [phone] [place], [place] [address] (Wo rk) Social History Tobacco [...] Radiology Aissatou Briggs Canc eled (D-SCHED ERROR PUBLIC HEALTH SERVICE OFFICER / CORRECTION ) [address] [place], [place] [id number] (Wo rk) documented as of this encounter Visit Diagnoses Not on filedocumented in this encounter Care Teams Tie Binder Relationship Specialty Start Date End Date Aissatou Briggs APRN PCP - General Internal Medicine 07/29/[address] [place], [place] [id number] documented as of this encounter
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
--- OUTSIDE RECORDS SUMMARY | 2022-08-15 01:35 | XMS_ITS | Encounter Summary ---
:1955 [place] [address] Care Team Providers Name Role Phone Jairon Gomez MD Primary Care Provider [phone] Reason for Visit Reason Onset Date Comments Medication Refill 04/27/2016 Encounter Details Date Type Department Care Team Description 04/27/2016 Refill [place]rology at [facility] [place] Gustavo Hayes MD [facility] [place] [address] NEUROLOGY DEPT. [phone] [place], [place] [address] (Wo rk) Social History Tobacco [...] Radiology Aissatou Briggs Canc eled (D-SCHED ERROR DIVERSIONAL THERAPIST'S ASSISTANT / CORRECTION ) [address] [place] [address] (Wo rk) documented as of this encounter Visit Diagnoses Not on filedocumented in this encounter Care Teams Court Bailiff Or Sheriff Relationship Specialty Start Date End Date Jairon Gomez MD PCP - General 09/23/10 07/28/[address] [place] [address] documented as of this encounter
--- OUTSIDE RECORDS SUMMARY | 2022-08-15 01:35 | XMS_ITS | Encounter Summary ---
:1955 Author Organization [facility] [place] [address] Care Team Providers Name Role Phone Jairon Gomez MD Primary Care Provider [phone] Reason for Visit Reason Onset Date Comments Medication Refill 01/15/2016 Encounter Details Date Type Department Care Team Description 01/15/2016 Refill Cardiology at [facility] Gordon Francis MD Medication Refill [facility] [place] [address] CARDIOLOGY DEPT [phone] [place], [place] [address] (Wo rk) Social History Tobacco [...] Radiology Aissatou Briggs, Canmanoj eled (D-SCHED ERROR FISH AND GAME WARDEN / CORRECTION ) [address] [place] [address] (Wo rk) documented as of this encounter Visit Diagnoses Diagnosis Cardiomyopathy, ischemic Other specified forms of chronic ischemi c heart disease documented in this encounter Care Teams Pit Recorder Relationship Specialty Start Date End Date Jairon Gomez MD PCP - General 09/23/10 07/28/16 [address] [place] [address] documented as of this encounter
--- OUTSIDE RECORDS SUMMARY | 2022-08-15 01:35 | XMS_ITS | Encounter Summary ---
:1955 Author Organization [facility] [place] [address] Care Team Providers Name Role Phone Aissatou Briggs APRN Primary Care Provider Reason for Visit Reason Onset Date Comments Medication Refill 03/23/2016 Medication Refill Encounter Details Date Type Department Care Team Description 03/23/2016 Telephone [place] [facility] [place] Gustavo Hayes Medication Refill [facility] MD Marielle (Medication Refill ) [place] [address] NEUROLOGY DEPT. [place], [place] [address] (Wo rk) Social History Tobacco Use Types Packs/Day Years Used Date Former Smoker Cigarettes Quit: 05/14/20 08 Smokeless Tobacco: Never Used Alcohol Use Standard Drinks/Week Comments No 0 (1 standard drink = 0.6 oz pure alcoho l) Sex Assigned at Date Recorded Not on file documented as of this encounter Miscellaneous Notes Telephone Encounter - Constance Michelle CMA - 03/23/2016 2:31 PM EDT Refill request prepped and sent to Dr. Hayes for review and signature. Telephone Encounter - Pete Veliz - 03/23/2016 2:20 PM EDT Patient called to get refill on prescription for: Name of Med: HYDROcodone-acetaminophen (NORCO) Strength of Pills: 5-325 mg Tablet Dosing Directions: Take 1 tablet by mouth 2 times daily as needed for Pain. Mail to [facility] 30 or 90 Day: 30 Pharmacy: [facility] [place], [place] - [address] [place] [address]??[Patient Preferred]?[phone] Last Appointment: 04/02/15 Next Appointment: 04/13/16 Is Patient out of Medication?: No documented in this encounter Plan of Treatment Upcoming Encounters Date Type Specialty Care Team Description 09/04/2022 Ancillary Procedure Radiology Aissatou Briggs Canc eled (D-SCHED ERROR MANAGER UROLOGY / CORRECTION ) [address] [place] [address] (Wo rk) documented as of this encounter Visit Diagnoses Not on filedocumented in this encounter Care Teams Log Cooker Relationship Specialty Start Date End Date Aissatou Briggs, MANAGER UROLOGY PCP - General Internal Medicine 07/29/[address] [place] [address] documented as of this encounter
--- OUTSIDE RECORDS SUMMARY | 2022-08-15 01:36 | XMS_ITS | Encounter Summary ---
:1955 Author Organization [facility] [place] [address] Care Team Providers Name Role Phone Jairon Gomez MD Primary Care Provider [phone] Reason for Visit Reason Onset Date Comments Medication Refill 09/18/2013 Encounter Details Date Type Department Care Team Description 09/18/2013 Refill Neurology at [facility] Gustavo Hayes Back pain (Primary Dx) [facility] MD Marielle [facility] [place] [address] [place] [address] NEUROLOGY DEPT. [phone] [place], [place] [address] (Wo rk) Social History Tobacco Use Types Packs/Day Years Used Date Former Smoker Cigarettes Quit: 05/14/20 08 Smokeless Tobacco: Never Used Alcohol Use Standard Drinks/Week Comments No 0 (1 standard drink = 0.6 oz pure alcoho l) Sex Assigned at Date Recorded Not on file documented as of this encounter Miscellaneous Notes Telephone Encounter - Eunice Macdonald LPN - 09/19/2013 12:53 PM EST Called into Rx line at [facility]. Telephone Encounter - Eunice Macdonald LPN - 09/18/2013 1:33 PM EST Patient made aware that Dr. Hayes never prescribed him simvastatin. Placed call to [facility] pharmacy. They report the patient has an Rx on file already and they will fill it. Patient asks that Hydrocodone Rx be done to be placed on file for next month. He picked up his last refill yesterday. Last Rx was 06/21/13 for 4 month supply. Telephone Encounter - Kathleen Sarmiento - 09/18/2013 12:10 PM EST Patient called in prescription refills - please note patient has [facility] and hydrocodone needs to go to [facility]. Name of Med: simvastatin Strength of Pills: 40 mg Dosing Directions: Take 1 capsule by mouth daily 30 or 90 Day: 90 day [facility] [place] [place] Last Appointment: 03/22/2013 Next Appointment: 03/01/2014 Name of Med: hydrocodone Strength of Pills: 5-500 mg Dosing Directions: Take 1 tablet by mouth 2 times daily 30 or 90 Day: 30 day Pharmacy: [facility] [place], [place] Last Appointment: 03/22/2013 Next Appointment: 03/01/2014 documented in this encounter Plan of Treatment Upcoming Encounters Date Type Specialty Care Team Description 09/04/2022 Ancillary Procedure Radiology Aissatou Briggs Canc eled (D-SCHED ERROR LICENSED PHYSICAL THERAPIST ASSISTANT / CORRECTION ) [address] [place] [address] (Wo rk) documented as of this encounter Visit Diagnoses Diagnosis Back pain - Primary Backache, unspecified documented in this encounter Care Teams Senior Water/Wastewater Engineer Relationship Specialty Start Date End Date Jairon Gomez MD PCP - General 09/23/10 07/28/16 [address] [place] [address] documented as of this encounter
--- OUTSIDE RECORDS SUMMARY | 2022-08-15 01:36 | XMS_ITS | Encounter Summary ---
:1955 [place] [address] Care Team Providers Name Role Phone Jairon Gomez MD Primary Care Provider [phone] Reason for Visit Reason Onset Date Comments Medication Refill 04/18/2014 call from Cardiology nurse Encounter Details Date Type Department Care Team Description 04/18/2014 Refill [place]rology at [facility] Gustavo Hayes Low back pain (Primary [facility] MD Marielle Dx) [facility] [place] [address] [place] [address] NEUROLOGY DEPT. [phone] [place], [place] [address] (Wo rk) Social History Tobacco Use Types Packs/Day Years Used Date Former Smoker Cigarettes Quit: 05/14/20 08 Smokeless Tobacco: Never Used Alcohol Use Standard Drinks/Week Comments No 0 (1 standard drink = 0.6 oz pure alcoho l) Sex Assigned at Date Recorded Not on file documented as of this encounter Miscellaneous Notes Telephone Encounter - Judi Amaro LPN - 04/19/2014 8:34 AM EDT Approved hydrocodone-acetaminophen 5-325 Rx(#180 +0) called to [facility]ist, Marisa at [phone], at 0835 19 April 2014. [facility] Telephone Encounter - Saima Thapa - 04/18/2014 1:23 PM EDT Patient had left message on cardiology's prescription line. Relayed message to Neurology for the following medications to be refilled: Name of Med: Gabapentin Strength of Pills: 300 mg Dosing Directions: 3 x per day 30 or 90 Day: 90 day Pharmacy: [facility] Last Appointment:04/02/14 Next Appointment: There is a reminder in system to schedule him for April 2015 Name of Med: Celexa Strength of Pills:40 mg Dosing Directions: 1 x per day 30 or 90 Day: 90 day Pharmacy: [facility] Last Appointment:04/02/14 Next Appointment: There is a reminder in system to schedule him for April 2015 Name of Med: Lamictal Strength of Pills: 100 mg Dosing Directions: 1 x per day 30 or 90 Day: 90 day Pharmacy: [facility] Last Appointment:04/02/14 Next Appointment: There is a reminder in system to schedule him for April 2015 Name of Med: Hydrocondone Strength of Pills: Cardiology nurse did not relay Dosing Directions: 2 x per day or PRN 30 or 90 Day: 90 day Pharmacy: [facility] Last Appointment:04/02/14 Next Appointment: There is a reminder in system to schedule him for April 2015 documented in this encounter Plan of Treatment Upcoming Encounters Date Type Specialty Care Team Description 09/04/2022 Ancillary Procedure Radiology Aissatou Briggs Canc eled (D-SCHED ERROR COMPONENT OVERHAUL OPERATOR / CORRECTION ) [address] [place] [address] (Wo rk) documented as of this encounter Visit Diagnoses Diagnosis Low back pain - Primary Lumbago documented in this encounter Care Teams Burning Supervisor Relationship Specialty Start Date End Date Jairon Gomez MD PCP - General 09/23/10 07/28/[address] [place] [address] documented as of this encounter
--- OUTSIDE RECORDS SUMMARY | 2022-08-15 01:36 | XMS_ITS | Encounter Summary ---
:1955 Author Organization [facility] [place] [address] Care Team Providers Name Role Phone Jairon Gomez MD Primary Care Provider [phone] Reason for Visit Reason Onset Date Comments Results 07/28/2013 Encounter Details Date Type Department Care Team Description 07/28/2013 Telephone Cardiology at [facility] Edd Sheth MD Results [facility] [place] [address] CARDIOLOGY DEPT [phone] [place], [place] [address] (Wo rk) Social History Tobacco Use Types Packs/Day Years Used Date Former Smoker Cigarettes Quit: 05/14/20 08 Smokeless Tobacco: Never Used Alcohol Use Standard Drinks/Week Comments No 0 (1 standard drink = 0.6 oz pure alcoho l) Sex Assigned at Date Recorded Not on file documented as of this encounter Miscellaneous Notes Telephone Encounter - Edd Sheth MD - 07/28/2013 9:02 AM EDT Called to inform patient of negative d-dimer and LDL 52. He will f/u with PCP. documented in this encounter Plan of Treatment Upcoming Encounters Date Type Specialty Care Team Description 09/04/2022 Ancillary Procedure Radiology Aissatou Briggs, Berto velázquez (D-SCHED ERROR CAD DESIGNER DRAFTER / CORRECTION ) [address] [place] [address] (Wo rk) documented as of this encounter Visit Diagnoses Not on filedocumented in this encounter Care Teams Lime Puller Relationship Specialty Start Date End Date Jairon Gomez MD PCP - General 09/23/10 07/28/[address] [place] [address] documented as of this encounter
--- OUTSIDE RECORDS SUMMARY | 2022-08-15 01:36 | XMS_ITS | Encounter Summary ---
:1955 [place] [address] Care Team Providers Name Role Phone Jairon Gomez MD Primary Care Provider [phone] Reason for Visit Reason Onset Date Comments Other 02/06/2014 generalized body eileen n Encounter Details Date Type Department Care Team Description 02/06/2014 Telephone Neurology at [facility] Katerine De Leon, Other ([facility] body [facility] [place] GUIDE pain) [place] [address] NEUROLOGY DEPT. [place], [place] [address] (Wo rk) Social History Tobacco Use Types Packs/Day Years Used Date Former Smoker Cigarettes Quit: 05/14/20 08 Smokeless Tobacco: Never Used Alcohol Use Standard Drinks/Week Comments No 0 (1 standard drink = 0.6 oz pure alcoho l) Sex Assigned at Date Recorded Not on file documented as of this encounter Miscellaneous Notes Telephone Encounter - Melissa Alvarado RN - 02/06/2014 2:15 PM EDT Message Please add acetominophen 325 mg with each vicodin tablet. T/C to Miguel who understands and agrees to plan of care. Telephone Encounter - Melissa Alvarado RN - 02/06/2014 11:52 AM EDT Recalled Mr. Pérez who advised since being on the new script feels his pain level is a 7 over 11/10scale. Currently takes Vicodin 5/325mg twice daily. Previously had been on 5/500 twice daily. Takes Gabapentin 900 mg three times daily. Does NOT use Motrin. T/C to [facility] as they no longer make the 5/500, changed script to 5/325mg twice daily and verified with GUSTAVO Pinzon that this was okay with a new script called in. Assessment: Vicoden @ one tab 5/325mg no managing pain. Plan of Care: Forward to Dr. Hayes for further instructions. Follow up appt is currently scheduled with Dr. Hayes 04/02. Pt understands and agrees to poc. Telephone Encounter - Kiara Franks - 02/06/2014 10:59 AM EDT Patient calls to say that the Hydrocodone is not working at the current dose. He would like to discuss this. documented in this encounter Plan of Treatment Upcoming Encounters Date Type Specialty Care Team Description 09/04/2022 Ancillary Procedure Radiology Aissatou Briggs Canc eled (D-SCHED ERROR [place] GUIDE / CORRECTION ) [address] [place] [address] (Wo rk) documented as of this encounter Visit Diagnoses Not on filedocumented in this encounter Care Teams Telecommunications Facility Examiner Relationship Specialty Start Date End Date Jairon Gomez MD PCP - General 09/23/10 07/28/16 [address] [place], [place] [address] documented as of this encounter
--- OUTSIDE RECORDS SUMMARY | 2022-08-15 01:36 | XMS_ITS | Encounter Summary ---
:1955 Author Organization [facility] [place] [address] Care Team Providers Name Role Phone Jairon Gomez MD Primary Care Provider [phone] Reason for Visit Reason Onset Date Comments Medication Refill 07/03/2015 Encounter Details Date Type Department Care Team Description 07/03/2015 Telephone [place] [facility] [place] Michelle, Medication Refill [facility] [place] [address] Social History Tobacco Use Types Packs/Day Years Used Date Former Smoker Cigarettes Quit: 05/14/20 08 Smokeless Tobacco: Never Used Alcohol Use Standard Drinks/Week Comments No 0 (1 standard drink = 0.6 oz pure alcoho l) Sex Assigned at Date Recorded Not on file documented as of this encounter Miscellaneous Notes Telephone Encounter - Constance Michelle CMA - 07/03/2015 11:59 AM EDT New Rx for HYDROcodone-acetaminophen 5-325 mg Tablet Mailed to requested pharmacy. . [facility]. documented in this encounter Plan of Treatment Upcoming Encounters Date Type Specialty Care Team Description 09/04/2022 Ancillary Procedure Radiology Aissatou Briggs, Berto velázquez (D-SCHED ERROR BOILER SERVICE TECHNICIAN / CORRECTION ) [address] [place], [place] [id number] (Wo rk) documented as of this encounter Visit Diagnoses Not on filedocumented in this encounter Care Teams Cafeteria Supervisor Relationship Specialty Start Date End Date Jairon Gomez MD PCP - General 09/23/10 07/28/[address] [place] [address] documented as of this encounter
--- OUTSIDE RECORDS SUMMARY | 2022-08-15 01:36 | XMS_ITS | Encounter Summary ---
:1955 [place] [address] Care Team Providers Name Role Phone Jairon Gomez MD Primary Care Provider [phone] Reason for Visit Reason Onset Date Comments Medication Refill 04/25/2015 Encounter Details Date Type Department Care Team Description 04/25/2015 [place]ill [place] [facility] [place]avo Hayes MD [facility] [place] [address] NEUROLOGY DEPT. [phone] [place], [place] [address] (Wo rk) Social History Tobacco [...] Radiology Aissatou Briggs Canc eled (D-SCHED ERROR DOUBLE END CHUCKING MACHINE OPERATOR / CORRECTION ) [address] [place] [address] (Wo rk) documented as of this encounter Visit Diagnoses Not on filedocumented in this encounter Care Teams Knotting Machine Operator Relationship Specialty Start Date End Date Jairon Gomez MD PCP - General 09/23/10 07/28/[address] [place] [address] documented as of this encounter
--- OUTSIDE RECORDS SUMMARY | 2022-08-15 01:36 | XMS_ITS | Encounter Summary ---
:1955 Author Organization [facility] [place] [address] Care Team Providers Name Role Phone Jairon Gomez MD Primary Care Provider [phone] Reason for Visit Reason Onset Date Comments Other 01/29/2014 Status of refill Encounter Details Date Type Department Care Team Description 01/29/2014 Telephone [place]rology at [facility] Katerine De Leon, Other (Status of [facility] CASINO FLOOR SUPERVISOR refill) [place] [address] NEUROLOGY DEPT. [place], [place] [address] (Wo rk) Social History Tobacco Use Types Packs/Day Years Used Date Former Smoker Cigarettes Quit: 05/14/20 08 Smokeless Tobacco: Never Used Alcohol Use Standard Drinks/Week Comments No 0 (1 standard drink = 0.6 oz pure alcoho l) Sex Assigned at Date Recorded Not on file documented as of this encounter Miscellaneous Notes Telephone Encounter - Maryellen Maxwell RN - 01/29/2014 1:51 PM EDT I phoned patient as [facility] He states he just realized that also and was going to call back. He states that is fine and he will roll picker the prescription there. He thanked me for calling. Telephone Encounter - Arely Blount - 01/29/2014 11:33 AM EDT The patient called about the status of his Hydrocodone-acetaminophen prescription. He would like this call into [facility] in [facility]. He called last Wednesday, 01/22 requesting this refill. documented in this encounter Plan of Treatment Upcoming Encounters Date Type Specialty Care Team Description 09/04/2022 Ancillary Procedure Radiology Aissatou Briggs, Berto velázquez (D-SCHED ERROR CASINO FLOOR SUPERVISOR / CORRECTION ) [address] [place], [place] [id number] (Wo rk) documented as of this encounter Visit Diagnoses Not on filedocumented in this encounter Care Teams Environmental Health Safety Engineer Relationship Specialty Start Date End Date Jairon Gomez MD PCP - General 09/23/10 07/28/[address] [place] [address] documented as of this encounter
--- OUTSIDE RECORDS SUMMARY | 2022-08-15 01:36 | XMS_ITS | Encounter Summary ---
:1955 Author Organization [facility] [place] [address] Care Team Providers Name Role Phone Jairon Gomez MD Primary Care Provider [phone] Reason for Visit Reason Onset Date Comments Medication Refill 02/27/2013 Encounter Details Date Type Department Care Team Description 02/27/2013 Refill [place]rology at [facility] Gustavo Hayes Back pain (Primary Dx) [facility] MD Marielle [facility] [address] NEUROLOGY DEPT. [phone] [place], [place] [address] (Wo rk) Social History Tobacco Use Types Packs/Day Years Used Date Former Smoker Cigarettes Quit: 05/14/20 08 Smokeless Tobacco: Never Used Alcohol Use Standard Drinks/Week Comments No 0 (1 standard drink = 0.6 oz pure alcoho l) Sex Assigned at Date Recorded Not on file documented as of this encounter Miscellaneous Notes Telephone Encounter - Eunice Macdonald LPN - 02/28/2013 2:28 PM EDT Rx called into pharmacist Telephone Encounter - Eunice Macdonald LPN - 02/28/2013 9:03 AM EDT Medication Name: Vicodin 5-500 Dose:one bid prn Date of Last Rx: 09/28/12 Amnt:60 # of Refills: 3 Telephone Encounter - Ashley Berry - 02/27/2013 3:59 PM EDT Name of Med: hydroCODone-acetaminophen (VICODIN) Strength of Pills: 5-500 mg per tablet Dosing Directions: Take 1 tablet by mouth 2 times daily. For pain 30 or 90 Day: 30 Pharmacy: [address] Last Appointment: 09/05/12 Next Appointment: 04/19/13 documented in this encounter Plan of Treatment Upcoming Encounters Date Type Specialty Care Team Description 09/04/2022 Ancillary Procedure Radiology Aissatou Briggs, Berto velázquez (D-SCHED ERROR MECHANIC HELPER / CORRECTION ) [address] [place] [address] (Wo rk) documented as of this encounter Visit Diagnoses Diagnosis Back pain - Primary Backache, unspecified documented in this encounter Care Teams Immigration Investigator Relationship Specialty Start Date End Date Jairon Gomez MD PCP - General 09/23/10 07/28/[address] [place] [address] documented as of this encounter
--- OUTSIDE RECORDS SUMMARY | 2022-08-15 01:36 | XMS_ITS | Encounter Summary ---
:1955 Author Organization [facility] [place] [address] Care Team Providers Name Role Phone Jairon Gomez MD Primary Care Provider [phone] Encounter Details Date Type Department Care Team Description 02/26/2015 Telephone [place] [facility] [place] [address] Social History Tobacco Use Types Packs/Day Years Used Date Former Smoker Cigarettes Quit: 05/14/20 08 Smokeless Tobacco: Never Used Alcohol Use Standard Drinks/Week Comments No 0 (1 standard drink = 0.6 oz pure alcoho l) Sex Assigned at Date Recorded Not on file documented as of this encounter Miscellaneous Notes Telephone Encounter - Marissa Story LPN - 02/26/2015 11:39 AM EDT Hydrocodene rx mailed to [facility] documented in this encounter Plan of Treatment Upcoming Encounters Date Type Specialty Care Team Description 09/04/2022 Ancillary Procedure Radiology Aissatou Briggs Canc eled (D-SCHED ERROR LATCHER / CORRECTION ) [address] [place] [address] (Wo rk) documented as of this encounter Visit Diagnoses Not on filedocumented in this encounter Care Teams Railcar Switchman Relationship Specialty Start Date End Date Jairon Gomez MD PCP - General 09/23/10 07/28/16 [facility] [place] [address] documented as of this encounter
--- OUTSIDE RECORDS SUMMARY | 2022-08-15 01:36 | XMS_ITS | Encounter Summary ---
:1955 Author Organization [facility] [place] [address] Care Team Providers Name Role Phone Jairon Gomez MD Primary Care Provider [phone] Reason for Visit Reason Onset Date Comments Medication Refill 08/27/2015 Encounter Details Date Type Department Care Team Description 08/27/2015 Telephone Neurology at [facility] [place] Gustavo Hayes, Medication Refill [facility] [place] [address] [facility] [phone] NEUROLOGY DEPT. [place], [place] [address] (Wo rk) Social History Tobacco Use Types Packs/Day Years Used Date Former Smoker Cigarettes Quit: 05/14/20 08 Smokeless Tobacco: Never Used Alcohol Use Standard Drinks/Week Comments No 0 (1 standard drink = 0.6 oz pure alcoho l) Sex Assigned at Date Recorded Not on file documented as of this encounter Miscellaneous Notes Telephone Encounter - Marisa Palmer - 08/27/2015 3:35 PM EDT Name of Med: hydrocodone-acetaminophen Strength of Pills: 5/325 mg tablet Dosing Directions: take 1 tablet by mouth 2 times daily as needed for pain. 30 or 90 Day: 30 Pharmacy: Mail to [facility] Last Appointment: 04/02/2015 Next Appointment:pending 1 year f/u documented in this encounter Plan of Treatment Upcoming Encounters Date Type Specialty Care Team Description 09/04/2022 Ancillary Procedure Radiology Aissatou Briggs Canc eled (D-SCHED ERROR STERILE PROCESS COORDINATOR / CORRECTION ) [address] [place], [place] [id number] (Wo rk) documented as of this encounter Visit Diagnoses Not on filedocumented in this encounter Care Teams Director Corporate Compliance Relationship Specialty Start Date End Date Jairon Gomez MD PCP - General 09/23/10 07/28/[address] [place] [address] documented as of this encounter
--- OUTSIDE RECORDS SUMMARY | 2022-08-15 01:36 | XMS_ITS | Encounter Summary ---
:1955 [place] [address] Care Team Providers Name Role Phone Jairon Gomez MD Primary Care Provider [phone] Reason for Visit Reason Onset Date Comments Medication Refill 01/28/2015 Encounter Details Date Type Department Care Team Description 01/28/2015 Refill Neurology at [facility] [place] Gustavo Hayes MD [facility] [place] [address] NEUROLOGY DEPT. [phone] [place], [place] [address] (Wo rk) Social History Tobacco [...] Aissatou Briggs Canc eled (D-SCHED ERROR MANAGER TRANSPLANT / CORRECTION ) [address] [place] [address] (Wo rk) documented as of this encounter Visit Diagnoses Not on filedocumented in this encounter Care Teams Avionics System Engineer Relationship Specialty Start Date End Date Jairon Gomez MD PCP - General 09/23/10 07/28/[address] [place] [address] documented as of this encounter
--- OUTSIDE RECORDS SUMMARY | 2022-08-15 01:36 | XMS_ITS | Encounter Summary ---
:1955 Author Organization [facility] [address] Care Team Providers Name Role Phone Jairon Gomez MD Primary Care Provider [phone] Encounter Details Date Type Department Care Team Description 10/28/2015 Telephone Neurology at [facility] [place] [address] Social History Tobacco Use Types Packs/Day Years Used Date Former Smoker Cigarettes Quit: 05/14/20 08 Smokeless Tobacco: Never Used Alcohol Use Standard Drinks/Week Comments No 0 (1 standard drink = 0.6 oz pure alcoho l) Sex Assigned at Date Recorded Not on file documented as of this encounter Miscellaneous Notes Telephone Encounter - Marissa Story LPN - 10/28/2015 3:47 PM EST Narcotic contract mailed to patient documented in this encounter Plan of Treatment Upcoming Encounters Date Type Specialty Care Team Description 09/04/2022 Ancillary Procedure Radiology Aissatou Briggs, Berto eled (D-SCHED ERROR VALVE REPAIRER RECLAMATION / CORRECTION ) [address] [place], [place] [address] (Wo rk) documented as of this encounter Visit Diagnoses Not on filedocumented in this encounter Care Teams Car Hiker Relationship Specialty Start Date End Date Jairon Gomez MD PCP - General 09/23/10 07/28/[address] [place] [address] documented as of this encounter
--- OUTSIDE RECORDS SUMMARY | 2022-08-15 01:36 | XMS_ITS | Encounter Summary ---
:1955 [place] [address] Care Team Providers Name Role Phone Jairon Gomez MD Primary Care Provider [phone] Reason for Visit Reason Onset Date Comments Medication Refill 10/02/2014 Encounter Details Date Type Department Care Team Description 10/02/2014 Refill Neurology at [facility] [place] Gustavo Hayes MD [facility] [place] [address] NEUROLOGY DEPT. [phone] [place], [place] [address] (Wo rk) Social History Tobacco [...] Radiology Aissatou Briggs Canc eled (D-SCHED ERROR LEAD MOBILE DEVELOPER / CORRECTION ) [address] [place] [address] (Wo rk) documented as of this encounter Visit Diagnoses Not on filedocumented in this encounter Care Teams Processing Analyst Relationship Specialty Start Date End Date Jairon Gomez MD PCP - General 09/23/10 07/28/[address] [place] [address] documented as of this encounter
--- OUTSIDE RECORDS SUMMARY | 2022-08-15 01:36 | XMS_ITS | Encounter Summary ---
:1955 Author Organization [facility] [place] [address] Care Team Providers Name Role Phone Jairon Gomez MD Primary Care Provider [phone] Encounter Details Date Type Department Care Team Description 04/17/2015 Telephone Cardiology at [facility] [place] Evelin Hurd, [place] [address] Social History Tobacco Use Types Packs/Day Years Used Date Former Smoker Cigarettes Quit: 05/14/20 08 Smokeless Tobacco: Never Used Alcohol Use Standard Drinks/Week Comments No 0 (1 standard drink = 0.6 oz pure alcoho l) Sex Assigned at Date Recorded Not on file documented as of this encounter Miscellaneous Notes Telephone Encounter - Gordon Francis - 04/17/2015 5:13 PM EDT I spoke to the patient this afternoon. He called earlier in the day, but the listed phone number is incorrect and had to be clarified. Patient excessively tired for the last week, also headaches. The patient has had resting HR checked (with his automated blood pressure cuff, and the automated blood pressure cuff at the pharmacy) and they were 46-50. These HR values are not reliable. He has not checked HR by pulse check or in PCP's office. HR at 2 weeks in our clinic was 50, by pulse and EKG. Separately, he was seen in [facility] ED a week ago for chest pain, which he self treated with NTG. Bloodwork, EKG, CXR were apparently negative, since he was discharged in a few hours. He was discharged without medication changes. Recommendations: -urgently obtain records from [facility] regarding EKG, recent ED visit for chest pain -hold metoprolol for a week, to see if bradycardia AND fatigue resolve -he will restart it, if he has more chest pain -he will seek medical attention if he has more chest Pain -he will call with results of metoprolol-holding trial Gordon Francis MD Bilingual Administrative Assistant Telephone Encounter - Dorothea Brewer RN - 04/17/2015 1:27 PM EDT Patient called with an update on his vital signs from this afternoon. BP is 130/86, heart rate is 50bpm. Patient states he continues to feel tired and lacks energy. Will forward to MD. Telephone Encounter - Evelin Hurd RN - 04/17/2015 10:26 AM EDT Miguel called to report his pulse was 46 yesterday. He has been having lots of headaches. He has felt exhausted, with no energy for about 1 week. Yesterday he slept much of the day. Went to his local pharmacy and BP was 129/73 and HR 46 after walking around. He called his PCP's office and they told him he had to call Cardiology. Feels he needs a changein medication. documented in this encounter Plan of Treatment Upcoming Encounters Date Type Specialty Care Team Description 09/04/2022 Ancillary Procedure Radiology Aissatou Briggs, Berto velázquez (D-SCHED ERROR SEWING TEACHER / CORRECTION ) [address] [place], [place] [id number] (Wo rk) documented as of this encounter Visit Diagnoses Not on filedocumented in this encounter Care Teams Wind Tunnel Technician Relationship Specialty Start Date End Date Jairon Gomez MD PCP - General 09/23/10 07/28/[address] [place], [place] [address] documented as of this encounter
--- OUTSIDE RECORDS SUMMARY | 2022-08-15 01:36 | XMS_ITS | Encounter Summary ---
:1955 [place] [address] Care Team Providers Name Role Phone Jairon Gomez MD Primary Care Provider [phone] Reason for Visit Reason Onset Date Comments Medication Refill 09/18/2013 Encounter Details Date Type Department Care Team Description 09/18/2013 Refill Cardiology at [facility] Edd Sheth MD Medication Refill [facility] [place] [address] CARDIOLOGY DEPT [phone] [place], [place] [address] (Wo rk) Social History Tobacco [...] Radiology Aissatou Briggs, Berto velázquez (D-SCHED ERROR INSTITUTION LIBRARIAN / CORRECTION ) [address] [place], [place] [address] (Wo rk) documented as of this encounter Visit Diagnoses Diagnosis STEMI (ST elevation myocardial infarctio n) - Primary Acute myocardial infarction, unspecified site, episode of care unspecified documented in this encounter Care Teams Inside Sales Trainer Relationship Specialty Start Date End Date Jairon Gomez MD PCP - General 09/23/10 07/28/[address] [place] [address] documented as of this encounter
--- OUTSIDE RECORDS SUMMARY | 2022-08-15 01:36 | XMS_ITS | Encounter Summary ---
:1955 [place] [address] Care Team Providers Name Role Phone Jairon Gomez MD Primary Care Provider [phone] Reason for Visit Reason Onset Date Comments Medication Refill 08/28/2015 Encounter Details Date Type Department Care Team Description 08/28/2015 Refill [place]rology at [facility] [place] Gustavo Hayes MD [facility] [place] [address] NEUROLOGY DEPT. [phone] [place], [place] [address] (Wo rk) Social History Tobacco [...] Radiology Aissatou Briggs Canc eled (D-SCHED ERROR WEIR FISHERMAN / CORRECTION ) [address] [place] [address] (Wo rk) documented as of this encounter Visit Diagnoses Not on filedocumented in this encounter Care Teams Pricing Intern Relationship Specialty Start Date End Date Jairon Gomez MD PCP - General 09/23/10 07/28/[address] [place] [address] documented as of this encounter
--- OUTSIDE RECORDS SUMMARY | 2022-08-15 01:36 | XMS_ITS | Encounter Summary ---
:1955 Author Organization [facility] [place] [address] Care Team Providers Name Role Phone Jairon Gomez MD Primary Care Provider [phone] Encounter Details Date Type Department Care Team Description 01/29/2015 Telephone Neurology at [facility] [place] [address] Social History Tobacco Use Types Packs/Day Years Used Date Former Smoker Cigarettes Quit: 05/14/20 08 Smokeless Tobacco: Never Used Alcohol Use Standard Drinks/Week Comments No 0 (1 standard drink = 0.6 oz pure alcoho l) Sex Assigned at Date Recorded Not on file documented as of this encounter Miscellaneous Notes Telephone Encounter - Marissa Story LPN - 01/29/2015 3:39 PM EDT Vicodin rx mailed to [facility] pharmacy per request documented in this encounter Plan of Treatment Upcoming Encounters Date Type Specialty Care Team Description 09/04/2022 Ancillary Procedure Radiology Aissatou Briggs Canc eled (D-SCHED ERROR NURSE DISCHARGE PLANNER / CORRECTION ) [address] [place] [address] (Wo rk) documented as of this encounter Visit Diagnoses Not on filedocumented in this encounter Care Teams Dress Cap Maker Relationship Specialty Start Date End Date Jairon Gomez MD PCP - General 09/23/10 07/28/16 [address] [place] [address] documented as of this encounter
--- OUTSIDE RECORDS SUMMARY | 2022-08-15 01:36 | XMS_ITS | Encounter Summary ---
:1955 Author Organization [facility] [place] [address] Care Team Providers Name Role Phone Jairon Gomez MD Primary Care Provider [phone] Encounter Details Date Type Department Care Team Description 04/25/2015 Telephone Cardiology at [facility] [place] Gordon Francis MD [facility] [place] [address] CARDIOLOGY DEPT [phone] [place], [place] [address] (Wo rk) Social History Tobacco Use Types Packs/Day Years Used Date Former Smoker Cigarettes Quit: 05/14/20 08 Smokeless Tobacco: Never Used Alcohol Use Standard Drinks/Week Comments No 0 (1 standard drink = 0.6 oz pure alcoho l) Sex Assigned at Date Recorded Not on file documented as of this encounter Miscellaneous Notes Telephone Encounter - Gordon Francis - 04/25/2015 11:04 AM EDT I successfully spoke to the patient today by phone. He continue to have resting fatigue. His resting pulse rates remain in the 50s, after stopping metoprolol succinate 25mg a day. EKG done 04/19/2015, scanned in 04/22/15, which I have previously reviewed,shows sinus bradycardia of 58 bpm. He does not have exertional symptoms. Given his resting bradycardia, it is reasonable to stop his metoprolol permanently. However, I wouldnot expect resting symptoms, with resting bradycardia of >40 bpm. He does not have exertional symptoms, to suggest chronotropic incompetence. His fatigue should be worked up by others, for noncardiac causes of fatigue. He has already discussed stopping metoprolol with his pharmacist. I have removed the prescription. Gordon Francis MD Care Information Associate Pager [phone] Daytime documented in this encounter Plan of Treatment Upcoming Encounters Date Type Specialty Care Team Description 09/04/2022 Ancillary Procedure Radiology Aissatou Briggs, Canmanoj velázquez (D-SCHED ERROR GAS COLLECTION SYSTEM OPERATOR / CORRECTION ) [address] [place], [place] [address] (Wo rk) documented as of this encounter Visit Diagnoses Not on filedocumented in this encounter Care Teams Favor Maker Relationship Specialty Start Date End Date Jairon Gomez MD PCP - General 09/23/10 07/28/[address] [place] [address] documented as of this encounter
--- OUTSIDE RECORDS SUMMARY | 2022-08-15 01:36 | XMS_ITS | Encounter Summary ---
:1955 Author Organization [facility] [place] [address] Care Team Providers Name Role Phone Jairon Gomez MD Primary Care Provider [phone] Reason for Visit Reason Onset Date Comments Medication Refill 05/14/2015 Encounter Details Date Type Department Care Team Description 05/14/2015 Refill [place] [facility] Francis MD Medication Refill [facility] [place] [address] CARDIOLOGY DEPT [phone] [place], [place] [address] (Wo rk) Social History Tobacco [...] Radiology Aissatou Briggs, Canmanoj eled (D-SCHED ERROR APPLICATOR SPRAYER / CORRECTION ) [address] [place], [place] [id number] (Wo rk) documented as of this encounter Visit Diagnoses Diagnosis Coronary artery disease involving [place] coronary artery without angina pectoris Cardiomyopathy, ischemic Other specified forms of chronic ischemi c heart disease documented in this encounter Care Teams Fabric Lay Out Worker Relationship Specialty Start Date End Date Jairon Gomez MD PCP - General 09/23/10 07/28/[address] [place] [address] documented as of this encounter
--- OUTSIDE RECORDS SUMMARY | 2022-08-15 01:36 | XMS_ITS | Encounter Summary ---
:1955 Author Organization [facility] [place] [address] Care Team Providers Name Role Phone Jairon Gomez MD Primary Care Provider [phone] Encounter Details Date Type Department Care Team Description 04/18/2014 Orders Only Neurology at [facility] [place] [address] Social History Tobacco Use Types Packs/Day [...] Radiology Aissatou Briggs, Berto velázquez (D-SCHED ERROR PRINCIPAL SYSTEMS ARCHITECT / CORRECTION ) [address] [place], [place] [address] (Wo rk) documented as of this encounter Visit Diagnoses Not on filedocumented in this encounter Care Teams Tax Manager Cpa Relationship Specialty Start Date End Date Jairon Gomez MD PCP - General 09/23/10 07/28/16 [address] [place], [place] [address] documented as of this encounter
--- OUTSIDE RECORDS SUMMARY | 2022-08-15 01:36 | XMS_ITS | Encounter Summary ---
:1955 Author Organization [facility] [place] [address] Care Team Providers Name Role Phone Jairon Gomez MD Primary Care Provider [phone] Reason for Visit Reason Onset Date Comments Medication Refill 07/29/2015 Encounter Details Date Type Department Care Team Description 07/29/2015 Telephone Neurology at [facility] Constance Michelle, Medication Refill [facility] [place] [address] Social History Tobacco Use Types Packs/Day Years Used Date Former Smoker Cigarettes Quit: 05/14/20 08 Smokeless Tobacco: Never Used Alcohol Use Standard Drinks/Week Comments No 0 (1 standard drink = 0.6 oz pure alcoho l) Sex Assigned at Date Recorded Not on file documented as of this encounter Miscellaneous Notes Telephone Encounter - Constance Michelle CMA - 07/29/2015 8:22 AM EDT New Rx for HYDROcodone-acetaminophen 5-325 mg Tablet Mailed to requested pharmacy. . [facility]. documented in this encounter Plan of Treatment Upcoming Encounters Date Type Specialty Care Team Description 09/04/2022 Ancillary Procedure Radiology Aissatou Briggs, Berto velázquez (D-SCHED ERROR WOMEN'S HEALTH CARE NURSE PRACTITIONER / CORRECTION ) [address] [place], [place] [address] (Wo rk) documented as of this encounter Visit Diagnoses Not on filedocumented in this encounter Care Teams Calcine Furnace Loader Relationship Specialty Start Date End Date Jairon Gomez MD PCP - General 09/23/10 07/28/[address] [place] [address] documented as of this encounter
--- OUTSIDE RECORDS SUMMARY | 2022-08-15 01:36 | XMS_ITS | Encounter Summary ---
:1955 Author Organization [facility] [place] [address] Care Team Providers Name Role Phone Jairon Gomez MD Primary Care Provider [phone] Reason for Visit Reason Onset Date Comments Medication Refill 09/28/2012 Encounter Details Date Type Department Care Team Description 09/28/2012 Refill Neurology at [facility] Gustavo Hayes Back pain (Primary Dx) [facility] MD Marielle [facility] [place] [address] NEUROLOGY DEPT. [phone] [place], [place] [address] (Wo rk) Social History Tobacco Use Types Packs/Day Years Used Date Former Smoker Cigarettes Quit: 05/14/20 08 Smokeless Tobacco: Never Used Alcohol Use Standard Drinks/Week Comments No 0 (1 standard drink = 0.6 oz pure alcoho l) Sex Assigned at Date Recorded Not on file documented as of this encounter Miscellaneous Notes Telephone Encounter - Eunice Macdonald LPN - 09/29/2012 1:31 PM EST Patient made aware of Dr. Hayes's instructions and agreed. Rx faxed to pharmacy. Telephone Encounter - Gustavo Hayes MD - 09/29/2012 1:00 PM EST Messi Dawson should stay at 2. Mark Telephone Encounter - Gustavo Hayes MD - 09/28/2012 4:37 PM EST Wrote prescription. Telephone Encounter - Eunice Macdonald LPN - 09/28/2012 4:34 PM EST Patient made aware of Dr. Hayes's instructions. Pharmacy made aware. He would like to know if would increase to one tab tid? He reports better pain control on 3 tabs per day. Telephone Encounter - Gustavo Hayes MD - 09/28/2012 4:18 PM EST I don't remember saying this. I would refill at 2 per day. Telephone Encounter - Eunice Macdonald LPN - 09/28/2012 11:17 AM EST Received fax from pharmacy stating patient insists Roger Hayes told him he could take Vicodin threetimes per day. Current Rx is for twice a day. Patient states he has been taking it three time a day for about a month. Message sent to Dr. Hayes for review and advice. documented in this encounter Plan of Treatment Upcoming Encounters Date Type Specialty Care Team Description 09/04/2022 Ancillary Procedure Radiology Aissatou Briggs Canc eled (D-SCHED ERROR VISITOR INFORMATION ASSISTANT / CORRECTION ) [address] [place] [address] (Wo rk) documented as of this encounter Visit Diagnoses Diagnosis Back pain - Primary Backache, unspecified documented in this encounter Care Teams Music Assistant Relationship Specialty Start Date End Date Jairon Gomez MD PCP - General 09/23/10 07/28/[address] [place] [address] documented as of this encounter
--- OUTSIDE RECORDS SUMMARY | 2022-08-15 01:36 | XMS_ITS | Encounter Summary ---
:1955 [place] [address] Care Team Providers Name Role Phone Jairon Gomez MD Primary Care Provider [phone] Reason for Visit Reason Onset Date Comments Medication Refill 12/25/2015 Encounter Details Date Type Department Care Team Description 12/25/2015 Refill Neurology at [facility] Gustavo Hayes MD [facility] [place] [address] NEUROLOGY DEPT. [phone] [place], [place] [address] (Wo rk) Social History Tobacco [...] Radiology Aissatou Briggs Canc eled (D-SCHED ERROR CORONER TECHNICIAN / CORRECTION ) [address] [place] [address] (Wo rk) documented as of this encounter Visit Diagnoses Not on filedocumented in this encounter Care Teams Client Relationship Manager Relationship Specialty Start Date End Date Jairon Gomez MD PCP - General 09/23/10 07/28/[address] [place] [address] documented as of this encounter
--- OUTSIDE RECORDS SUMMARY | 2022-08-15 01:36 | XMS_ITS | Encounter Summary ---
:1955 Author Organization [facility] [place] [address] Care Team Providers Name Role Phone Jairon Gomez MD Primary Care Provider [phone] Reason for Visit Reason Onset Date Comments Medication Refill 06/21/2013 Encounter Details Date Type Department Care Team Description 06/21/2013 Refill [place]rology at [facility] Gustavo Hayes MD [facility] [place] [address] NEUROLOGY DEPT. [phone] [place], [place] [address] (Wo rk) Social History Tobacco Use Types Packs/Day Years Used Date Former Smoker Cigarettes Quit: 05/14/20 08 Smokeless Tobacco: Never Used Alcohol Use Standard Drinks/Week Comments No 0 (1 standard drink = 0.6 oz pure alcoho l) Sex Assigned at Date Recorded Not on file documented as of this encounter Miscellaneous Notes Telephone Encounter - Maryellen Maxwell RN - 06/21/2013 9:47 AM EDT I have prepared prescription for Dr. Hayes to review. I phoned the pharmacy this was last filled at. Patient last filled this prescription 05/24/13. Pharmacy states it is 2 days too early to fill. I will phone prescription to pharmacy if ok with Dr. Hayes after he has had chance to review. Telephone Encounter - Kathleen Sarmiento - 06/21/2013 9:26 AM EDT Patient advises he is completely out of this medication. Name of Med: hydrocodone Strength of Pills: 5-500 mg tablets Dosing Directions: Take 1 tablet by mouth 2 times daily. For pain. 30 or 90 Day: 90 day Pharmacy: [place], [place] Last Appointment: 03/22/2013 Next Appointment: Reminder in the system for 03/2014 documented in this encounter Plan of Treatment Upcoming Encounters Date Type Specialty Care Team Description 09/04/2022 Ancillary Procedure Radiology Aissatou Briggs Canc eled (D-SCHED ERROR CASINO FLOOR PERSON / CORRECTION ) [address] [place] [address] (Wo rk) documented as of this encounter Visit Diagnoses Not on filedocumented in this encounter Care Teams Supervisor Rides Relationship Specialty Start Date End Date Jairon Gomez MD PCP - General 09/23/10 07/28/[address] [place], [place] [address] documented as of this encounter
--- OUTSIDE RECORDS SUMMARY | 2022-08-15 01:36 | XMS_ITS | Encounter Summary ---
:1955 Author Organization [facility] [place] [address] Care Team Providers Name Role Phone Jairon Gomez MD Primary Care Provider [phone] Reason for Visit Reason Onset Date Comments Other 01/22/2014 medication questions Encounter Details Date Type Department Care Team Description 01/22/2014 Telephone Neurology at [facility] Katerine De Leon, Other (medication [facility] MANAGER HUMAN CAPITAL questions) [place] [address] NEUROLOGY DEPT. [place], [place] [address] (Wo rk) Social History Tobacco Use Types Packs/Day Years Used Date Former Smoker Cigarettes Quit: 05/14/20 08 Smokeless Tobacco: Never Used Alcohol Use Standard Drinks/Week Comments No 0 (1 standard drink = 0.6 oz pure alcoho l) Sex Assigned at Date Recorded Not on file documented as of this encounter Miscellaneous Notes Telephone Encounter - Arely Blount - 01/22/2014 9:52 AM EDT The pharmacist called regarding HYDROcodone-acetaminophen (VICODIN) 5-500 mg per tablet. They only make 5/325mg. Please call [phone]. documented in this encounter Plan of Treatment Upcoming Encounters Date Type Specialty Care Team Description 09/04/2022 Ancillary Procedure Radiology Aissatou Briggs, Berto velázquez (D-SCHED ERROR MANAGER HUMAN CAPITAL / CORRECTION ) [address] [place] [address] (Wo rk) documented as of this encounter Visit Diagnoses Not on filedocumented in this encounter Care Teams Tattoo Technician Relationship Specialty Start Date End Date Jairon Gomez MD PCP - General 09/23/10 07/28/[address] [place], [place] [address] documented as of this encounter
--- OUTSIDE RECORDS SUMMARY | 2022-08-15 01:36 | XMS_ITS | Encounter Summary ---
:1955 [place] [address] Care Team Providers Name Role Phone Jairon Gomez MD Primary Care Provider [phone] Reason for Visit Reason Onset Date Comments Medication Refill 02/26/2015 Encounter Details Date Type Department Care Team Description 02/26/2015 Refill Neurology at [facility] Gustavo Hayes MD [facility] [place] [address] NEUROLOGY DEPT. [phone] [place], [place] [address] (Wo rk) Social History Tobacco [...] Radiology Aissatou Briggs Canc eled (D-SCHED ERROR PRESS DEPARTMENT MANAGER / CORRECTION ) [address] [place] [address] (Wo rk) documented as of this encounter Visit Diagnoses Not on filedocumented in this encounter Care Teams Wire Mesh Gate Assembler Relationship Specialty Start Date End Date Jairon Gomez MD PCP - General 09/23/10 07/28/[address] [place] [address] documented as of this encounter
--- OUTSIDE RECORDS SUMMARY | 2022-08-15 01:36 | XMS_ITS | Encounter Summary ---
:1955 [place] [address] Care Team Providers Name Role Phone Jairon Gomez MD Primary Care Provider [phone] Reason for Visit Reason Onset Date Comments Medication Refill 11/29/2014 Encounter Details Date Type Department Care Team Description 11/29/2014 [place] [facility] Gustavo Hayes MD [facility] [place] [address] NEUROLOGY DEPT. [phone] [place], [place] [address] (Wo rk) Social History Tobacco [...] Radiology Aissatou Briggs Canc eled (D-SCHED ERROR PATIENT CASE MANAGER / CORRECTION ) [address] [place] [address] (Wo rk) documented as of this encounter Visit Diagnoses Not on filedocumented in this encounter Care Teams Drip Box Tender Relationship Specialty Start Date End Date Jairon Gomez MD PCP - General 09/23/10 07/28/[address] [place] [address] documented as of this encounter
--- OUTSIDE RECORDS SUMMARY | 2022-08-15 01:36 | XMS_ITS | Encounter Summary ---
:1955 Author Organization [facility] [place] [address] Care Team Providers Name Role Phone Jairon Gomez MD Primary Care Provider [phone] Reason for Visit Reason Onset Date Comments Medication Refill 03/12/2015 Encounter Details Date Type Department Care Team Description 03/12/2015 Refill Neurology at [facility] Gustavo Hayes MD [facility] [place] [address] NEUROLOGY DEPT. [phone] [place], [place] [address] (Wo rk) Social History Tobacco Use Types Packs/Day Years Used Date Former Smoker Cigarettes Quit: 05/14/20 08 Smokeless Tobacco: Never Used Alcohol Use Standard Drinks/Week Comments No 0 (1 standard drink = 0.6 oz pure alcoho l) Sex Assigned at Date Recorded Not on file documented as of this encounter Miscellaneous Notes Telephone Encounter - Sera Aranda RN - 03/13/2015 3:20 PM EDT Concerns regarding Vicodin Rx and pt using 58 of 60 tabs from 03/02 to 03/11. Review of chart and from conversation covering nurse had with pt pharmacist, pt has repeatedly reported that his Vicodin was stolen thus the need for sooner refills For this last rx, what is documented is that pt had a procedure done by his PCP requiring him to take more Vicodin and the pharmacy would not fill a 6 pill dose of vicodin given by the PCP. The pharmacist reports no recollection of this request/need. Pt also reported to covering nurse that he tried toget the vidocin given by his PCP filled by a pharmacy other than his usual one but they would not fill the rx. There is a call out to the PCP office to find out if they did give an rx for 6 tabs of Vicodin. The pt last vicodin rx was generated on 02/26/15 and filled on 03/02. On 03/11 reported he had only 2 tabs left ( averages 6 ?? tabs a day for this period of time). The patient told today's covering nurse that Dr. Hayes had told him he could increase the number of Vicodin he takes a day to 4 tabs a day if needed however do not see this documented and is not reflected on prescriptions. Rx is currently written for 1 tab twice a day PRN for pain #60 with no refills. Above reviewed with Dr. Hayes and per Dr. Hayes 1) OK with giving pt an additional 6 tablets this one time 2) He is prescribed one tablet twice a day and do not want him to get any more than that. Will ask covering nurse to relay the following to the pt: We will NOT do a PA for 6 tablets - pt will need to pay OOP Tomorrow when Dr. Hayes is in clinic, we can have the rx printed, have him sign and get it mailedto the pharmacy Dr. Hayes has ordered the Vicodin as 1 tab bid PRN # 60 to last one month - the #6 tabs is one time only Pt next fill for the Vicodin 1 tab twice a day can be processed no sooner than 03/28 - 30 days from the last time the rx was generated Pt also needs to schedule an appointment to discuss his pain management issues and use of Vicodin beyond what has been prescribed Telephone Encounter - Melissa Alvarado RN - 03/12/2015 9:21 AM EDT SPOKE WITH PHARMACY WHO ADVISES, [employer] may not cover a new vicodin script and will be requesting a PA more than likely. documented in this encounter Plan of Treatment Upcoming Encounters Date Type Specialty Care Team Description 09/04/2022 Ancillary Procedure Radiology Aissatou Briggs Canc eled (D-SCHED ERROR BOARD CATCHER / CORRECTION ) [address] [place] [address] (Wo rk) documented as of this encounter Visit Diagnoses Not on filedocumented in this encounter Care Teams Overhead Line Worker Relationship Specialty Start Date End Date Jairon Gomez MD PCP - General 09/23/10 07/28/[address] [place], [place] [address] documented as of this encounter
--- OUTSIDE RECORDS SUMMARY | 2022-08-15 01:36 | XMS_ITS | Encounter Summary ---
:1955 [place] [address] Care Team Providers Name Role Phone Jairon Gomez MD Primary Care Provider [phone] Reason for Visit Reason Onset Date Comments Medication Refill 10/29/2014 Encounter Details Date Type Department Care Team Description 10/29/2014 Refill [place]rology at [facility] Gustavo Hayes MD [facility] [place] [address] NEUROLOGY DEPT. [phone] [place], [place] [address] (Wo rk) Social History Tobacco Use Types Packs/Day Years Used Date Former Smoker Cigarettes Quit: 05/14/20 08 Smokeless Tobacco: Never Used Alcohol Use Standard Drinks/Week Comments No 0 (1 standard drink = 0.6 oz pure alcoho l) Sex Assigned at Date Recorded Not on file documented as of this encounter Miscellaneous Notes Telephone Encounter - Sabrina Spain RN - 10/30/2014 1:32 PM EST After approval and physician signature, paper prescription mailed to pharmacy. documented in this encounter Plan of Treatment Upcoming Encounters Date Type Specialty Care Team Description 09/04/2022 Ancillary Procedure Radiology Aissatou Briggs, Berto elelake (D-SCHED ERROR DOOR MACHINE OPERATOR / CORRECTION ) [address] [place] [address] (Wo rk) documented as of this encounter Visit Diagnoses Not on filedocumented in this encounter Care Teams Brine Mixer Operator Relationship Specialty Start Date End Date Jairon Gomez MD PCP - General 09/23/10 07/28/[address] [place] [address] documented as of this encounter
--- OUTSIDE RECORDS SUMMARY | 2022-08-15 01:36 | XMS_ITS | Encounter Summary ---
:1955 Author Organization [facility] [place] [address] Care Team Providers Name Role Phone Jairon Gomez MD Primary Care Provider [phone] Reason for Visit Reason Onset Date Comments Medication Refill 12/24/2014 Encounter Details Date Type Department Care Team Description 12/24/2014 Refill [place] at [facility] [place] Raymundo Rosas MD [facility] [place] [address] NEUROLOGY DEPT. [phone] [place], [place] [address] (Wo rk) Social History Tobacco [...] Radiology Aissatou Briggs, Canmanoj eled (D-SCHED ERROR CHEESE GRADER / CORRECTION ) [address] [place] [address] (Wo rk) documented as of this encounter Visit Diagnoses Not on filedocumented in this encounter Care Teams Target Developer Relationship Specialty Start Date End Date Jairon Gomez MD PCP - General 09/23/10 07/28/16 [address] [place], [place] [address] documented as of this encounter
--- OUTSIDE RECORDS SUMMARY | 2022-08-15 01:36 | XMS_ITS | Encounter Summary ---
:1955 [place] [address] Care Team Providers Name Role Phone Jairon Gomez MD Primary Care Provider Reason for Visit Reason Onset Date Comments Medication Refill 05/07/2014 vicodin Encounter Details Date Type Department Care Team Description 05/07/2014 Refill [place]rology at [facility] Gustavo Hayes MD [facility] [place] [address] NEUROLOGY DEPT. [phone] [place], [place] [address] (Wo rk) Social History Tobacco Use Types Packs/Day Years Used Date Former Smoker Cigarettes Quit: 05/14/20 08 Smokeless Tobacco: Never Used Alcohol Use Standard Drinks/Week Comments No 0 (1 standard drink = 0.6 oz pure alcoho l) Sex Assigned at Date Recorded Not on file documented as of this encounter Miscellaneous Notes Telephone Encounter - Melissa Alvarado RN - 05/07/2014 1:15 PM EDT Script after previous script was stolen; police report done documented in this encounter Plan of Treatment Upcoming Encounters Date Type Specialty Care Team Description 09/04/2022 Ancillary Procedure Radiology Aissatou Briggs, Berto velázquez (D-SCHED ERROR TRACK FITTER / CORRECTION ) [address] [facility] [place] [address] (Wo rk) documented as of this encounter Visit Diagnoses Not on filedocumented in this encounter Care Teams Pit Crane Operator Relationship Specialty Start Date End Date Jairon Gomez MD PCP - General 09/23/10 07/28/[address] [place] [address] documented as of this encounter
--- OUTSIDE RECORDS SUMMARY | 2022-08-15 01:36 | XMS_ITS | Encounter Summary ---
:[address] [place] [address] Care Team Providers Name Role Phone Jairon Gomez MD Primary Care Provider [phone] Reason for Visit Reason Onset Date Comments Medication Refill 01/28/2015 Encounter Details Date Type Department Care Team Description 01/28/2015 Refill Neurology at [facility] Gustavo Hayes MD [facility] [place] [address] NEUROLOGY DEPT. [phone] [place], [place] [address] (Wo rk) Social History Tobacco [...] Radiology Aissatou Briggs Canc eled (D-SCHED ERROR AIRPLANE MECHANIC / CORRECTION ) [address] [place] [address] (Wo rk) documented as of this encounter Visit Diagnoses Not on filedocumented in this encounter Care Teams Lobbyist Relationship Specialty Start Date End Date Jairon Gomez MD PCP - General 09/23/10 07/28/[address] [place] [address] documented as of this encounter
--- OUTSIDE RECORDS SUMMARY | 2022-08-15 01:36 | XMS_ITS | Encounter Summary ---
:1955 [place] [address] Care Team Providers Name Role Phone Jairon Gomez MD Primary Care Provider [phone] Reason for Visit Reason Onset Date Comments Leg Pain 03/11/2015 r/t right leg swelli ng/fluid Encounter Details Date Type Department Care Team Description 03/11/2015 Telephone Neurology at [facility] Melissa Alvarado Leg Pain (r/t right [facility] Marielle RN leg swell ing/fluid) [place] [address] Social History Tobacco Use Types Packs/Day Years Used Date Former Smoker Cigarettes Quit: 05/14/20 08 Smokeless Tobacco: Never Used Alcohol Use Standard Drinks/Week Comments No 0 (1 standard drink = 0.6 oz pure alcoho l) Sex Assigned at Date Recorded Not on file documented as of this encounter Miscellaneous Notes Telephone Encounter - Melissa Alvarado RN - 03/11/2015 2:26 PM EDT Caller: Miguel [phone] Reason for call: Miguel reports for the past week has been going to Primary Care for right leg pain/swelling Today, the leg was drained for a large amount of fluid. Because of being in a great deal of pain used up the script for Vicodin which he had on 02/26. PCP wrote script for 6 tabs and Pharmacy refused tofill it. Pt requesting a new script for vicodin from Dr. Hayes. Advised Miguel would forward to Dr. Hayes for review and instructions. documented in this encounter Plan of Treatment Upcoming Encounters Date Type Specialty Care Team Description 09/04/2022 Ancillary Procedure Radiology Aissatou Briggs Canc eled (D-SCHED ERROR FOOD SERVICE SALES REPRESENTATIVES / CORRECTION ) [address] [place] [address] (Wo rk) documented as of this encounter Visit Diagnoses Not on filedocumented in this encounter Care Teams Environmental Coordinator Relationship Specialty Start Date End Date Jairon Gomez MD PCP - General 09/23/10 07/28/[address] [place], [place] [address] documented as of this encounter
--- OUTSIDE RECORDS SUMMARY | 2022-08-15 01:36 | XMS_ITS | Encounter Summary ---
:1955 Author Organization [facility] [place] [address] Care Team Providers Name Role Phone Jairon Gomez MD Primary Care Provider [phone] Reason for Visit Reason Onset Date Comments Other 03/29/2013 Encounter Details Date Type Department Care Team Description 03/29/2013 Telephone Neurology at [facility] Gustavo Hayes MD [facility] [place] [place] [address] NEUROLOGY DEPT. [phone] [place], [place] [address] (Wo rk) Social History Tobacco Use Types Packs/Day Years Used Date Former Smoker Cigarettes Quit: 05/14/20 08 Smokeless Tobacco: Never Used Alcohol Use Standard Drinks/Week Comments No 0 (1 standard drink = 0.6 oz pure alcoho l) Sex Assigned at Date Recorded Not on file documented as of this encounter Miscellaneous Notes Telephone Encounter - Eunice Macdonald LPN - 03/29/2013 10:13 AM EDT Gabapentin increase is noted under impression/plan. Fred made aware and was able to locate in their copy of the 03/22/13 note. Telephone Encounter - Iva Corona - 03/29/2013 9:47 AM EDT Patient's nurse,Fred from [facility] needs clarification on the Gabapentin Medication. Fred states she sees an increase from the patient's last visit but needs to clarify if thisis correct because she doesn't see this in the last office note. Please call to discuss further. documented in this encounter Plan of Treatment Upcoming Encounters Date Type Specialty Care Team Description 09/04/2022 Ancillary Procedure Radiology Aissatou Briggs, Berto velázquez (D-SCHED ERROR MANAGER TRADE MARKETING / CORRECTION ) [address] [place] [address] (Wo rk) documented as of this encounter Visit Diagnoses Not on filedocumented in this encounter Care Teams Machinist Outside Relationship Specialty Start Date End Date Jairon Gomez MD PCP - General 09/23/10 07/28/[address] [place], [place] [address] documented as of this encounter
--- OUTSIDE RECORDS SUMMARY | 2022-08-15 01:36 | XMS_ITS | Encounter Summary ---
:1955 Author Organization [facility] [place] [address] Care Team Providers Name Role Phone Jairon Gomez MD Primary Care Provider [phone] Encounter Details Date Type Department Care Team Description 10/28/2015 Telephone [place] [facility] [place] [address] Social History Tobacco Use Types Packs/Day Years Used Date Former Smoker Cigarettes Quit: 05/14/20 08 Smokeless Tobacco: Never Used Alcohol Use Standard Drinks/Week Comments No 0 (1 standard drink = 0.6 oz pure alcoho l) Sex Assigned at Date Recorded Not on file documented as of this encounter Miscellaneous Notes Telephone Encounter - Marissa Story LPN - 10/28/2015 4:16 PM EST Nabb rx mailed to [facility] pharmacy documented in this encounter Plan of Treatment Upcoming Encounters Date Type Specialty Care Team Description 09/04/2022 Ancillary Procedure Radiology Aissatou Briggs Canc eled (D-SCHED ERROR DIRECTOR OF MATERNITY SERVICES / CORRECTION ) [address] [place], [place] [address] (Wo rk) documented as of this encounter Visit Diagnoses Not on filedocumented in this encounter Care Teams Lead Data Entry Operator Relationship Specialty Start Date End Date Jairon Gomez MD PCP - General 09/23/10 07/28/[address] [place] [address] documented as of this encounter
--- OUTSIDE RECORDS SUMMARY | 2022-08-15 01:36 | XMS_ITS | Encounter Summary ---
:1955 Author Organization [facility] [address] Care Team Providers Name Role Phone Jairon Gomez MD Primary Care Provider [phone] Reason for Visit Reason Onset Date Comments Medication Refill 05/27/2015 Encounter Details Date Type Department Care Team Description 05/27/2015 Refill Neurology at [facility] [place] Gustavo Hayes MD [facility] [place] [address] NEUROLOGY DEPT. [phone] [place], [place] [address] (Wo rk) Social History Tobacco Use Types Packs/Day Years Used Date Former Smoker Cigarettes Quit: 05/14/20 08 Smokeless Tobacco: Never Used Alcohol Use Standard Drinks/Week Comments No 0 (1 standard drink = 0.6 oz pure alcoho l) Sex Assigned at Date Recorded Not on file documented as of this encounter Miscellaneous Notes Telephone Encounter - Shady Ramírez RN - 05/28/2015 2:31 PM EDT Script mailed to pharmacy. Shady Telephone Encounter - Shady Ramírez RN - 05/27/2015 4:18 PM EDT Patient requesting medication refill. Shady Last appt 04/02 Next appt not scheduled Telephone Encounter - Fatoumata Meadows RMA - 05/27/2015 4:02 PM EDT Patient called the refill line for a hydrocodone refill. Requested Prescriptions Pending Prescriptions Disp Refills ??? HYDROcodone-acetaminophen 5-325 mg Tablet 60 tablet 0 Sig: Take 1 tablet by mouth 2 times daily as needed for Pain. Mail to [facility] Last prescription: same Date: 04/30/2015 Quantity: #60/30 Refill #: 0 Last appointment: 04/01/2015 Next appointment: 1 year f/u (not yet scheduled) documented in this encounter Plan of Treatment Upcoming Encounters Date Type Specialty Care Team Description 09/04/2022 Ancillary Procedure Radiology Aissatou Briggs Canc eled (D-SCHED ERROR MIS MANAGER / CORRECTION ) [address] [place] [address] (Wo rk) documented as of this encounter Visit Diagnoses Not on filedocumented in this encounter Care Teams Sales Porter Relationship Specialty Start Date End Date Jairon Gomez MD PCP - General 09/23/10 07/28/[address] [place] [address] documented as of this encounter
--- OUTSIDE RECORDS SUMMARY | 2022-08-15 01:36 | XMS_ITS | Encounter Summary ---
:1955 Author Organization [facility] [place] [address] Care Team Providers Name Role Phone Jairon Gomez MD Primary Care Provider [phone] Encounter Details Date Type Department Care Team Description 10/28/2015 Refill Neurology at [facility] [place] Gustavo Hayes MD [facility] [place] [address] NEUROLOGY DEPT. [phone] [place], [place] [address] (Wo rk) Social History Tobacco [...] Radiology Aissatou Briggs, Berto velázquez (D-SCHED ERROR LEGAL SUMMER INTERN / CORRECTION ) [address] [place], [place] [address] (Wo rk) documented as of this encounter Visit Diagnoses Not on filedocumented in this encounter Care Teams Cardio Clinician Relationship Specialty Start Date End Date Jairon Gomez MD PCP - General 09/23/10 07/28/[address] [place], [place] [id number] documented as of this encounter
--- OUTSIDE RECORDS SUMMARY | 2022-08-15 01:36 | XMS_ITS | Encounter Summary ---
:1955 Author Organization [facility] [place] [address] Care Team Providers Name Role Phone Jairon Gomez MD Primary Care Provider Reason for Visit Reason Onset Date Comments Medication Refill 08/30/2015 Encounter Details Date Type Department Care Team Description 08/30/2015 Telephone Neurology at [facility] [place] Constance Michelle, Medication Refill [facility] [place] [address] Social History Tobacco Use Types Packs/Day Years Used Date Former Smoker Cigarettes Quit: 05/14/20 08 Smokeless Tobacco: Never Used Alcohol Use Standard Drinks/Week Comments No 0 (1 standard drink = 0.6 oz pure alcoho l) Sex Assigned at Date Recorded Not on file documented as of this encounter Miscellaneous Notes Telephone Encounter - Constance Michelle CMA - 08/30/2015 11:45 AM EDT New Rx for HYDROcodone-acetaminophen 5-325 mg Tablet Mailed to requested pharmacy. . [facility]. documented in this encounter Plan of Treatment Upcoming Encounters Date Type Specialty Care Team Description 09/04/2022 Ancillary Procedure Radiology Aissatou Briggs, Berto velázquez (D-SCHED ERROR LEARNING AND DEVELOPMENT ADMINISTRATOR / CORRECTION ) [address] [place], [place] [id number] (Wo rk) documented as of this encounter Visit Diagnoses Not on filedocumented in this encounter Care Teams [employer] Delivery Driver Relationship Specialty Start Date End Date Jairon Gomez MD PCP - General 09/23/10 07/28/[address] [place] [address] documented as of this encounter
--- OUTSIDE RECORDS SUMMARY | 2022-08-15 01:36 | XMS_ITS | Encounter Summary ---
:1955 Author Organization [facility] [place] [address] Care Team Providers Name Role Phone Jairon Gomez MD Primary Care Provider [phone] Reason for Visit Reason Onset Date Comments Medication Refill 07/23/2014 narcotic Encounter Details Date Type Department Care Team Description 07/23/2014 Refill Neurology at [facility] [place] Gustavo Hayes MD [facility] [place] [address] NEUROLOGY DEPT. [phone] [place], [place] [address] (Wo rk) Social History Tobacco Use Types Packs/Day Years Used Date Former Smoker Cigarettes Quit: 05/14/20 08 Smokeless Tobacco: Never Used Alcohol Use Standard Drinks/Week Comments No 0 (1 standard drink = 0.6 oz pure alcoho l) Sex Assigned at Date Recorded Not on file documented as of this encounter Miscellaneous Notes Telephone Encounter - Melissa Alvarado RN - 07/24/2014 11:08 AM EDT Script faxed to [facility] and received confirmation. Telephone Encounter - Saima Thapa - 07/23/2014 9:52 AM EDT Name of Med: hydrocondone Strength of Pills:5 mg Dosing Directions: 1 tab 2 x per day 30 or 90 Day: 60 tabs [facility]acy: [facility] [place], [place] on [address] [facility] Last Appointment:04/02/14 Next Appointment: Reminder in system to call patient back in April 2015 documented in this encounter Plan of Treatment Upcoming Encounters Date Type Specialty Care Team Description 09/04/2022 Ancillary Procedure Radiology Aissatou Briggs Canc eled (D-SCHED ERROR PROCEDURE ANALYST / CORRECTION ) [address] [place] [address] (Wo rk) documented as of this encounter Visit Diagnoses Not on filedocumented in this encounter Care Teams Ob Gyn Relationship Specialty Start Date End Date Jairon Gomez MD PCP - General 09/23/10 07/28/[address] [place] [address] documented as of this encounter
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
--- OUTSIDE RECORDS SUMMARY | 2022-08-15 01:36 | XMS_ITS | Encounter Summary ---
:1955 Author Organization [facility] [place] [address] Care Team Providers Name Role Phone Jairon Gomez MD Primary Care Provider [phone] Reason for Visit Reason Onset Date Comments Medication Refill 06/21/2013 Encounter Details Date Type Department Care Team Description 06/21/2013 Refill Neurology at [facility] [place] Gustavo Hayes Back pain (Primary Dx) [facility] MD [address] [facility] [place] [address] NEUROLOGY DEPT. [phone] [place], [place] [address] (Wo rk) Social History Tobacco Use Types Packs/Day Years Used Date Former Smoker Cigarettes Quit: 05/14/20 08 Smokeless Tobacco: Never Used Alcohol Use Standard Drinks/Week Comments No 0 (1 standard drink = 0.6 oz pure alcoho l) Sex Assigned at Date Recorded Not on file documented as of this encounter Miscellaneous Notes Telephone Encounter - Maryellen Maxwell RN - 06/21/2013 12:41 PM EDT vicodin prescription phoned to pharmacy. documented in this encounter Plan of Treatment Upcoming Encounters Date Type Specialty Care Team Description 09/04/2022 Ancillary Procedure Radiology Aissatou Briggs, Berto elelake (D-SCHED ERROR PROJECT MANAGEMENT DIRECTOR / CORRECTION ) [address] [place] [address] (Wo rk) documented as of this encounter Visit Diagnoses Diagnosis Back pain - Primary Backache, unspecified documented in this encounter Care Teams Contact And Service Clerks Supervisor Relationship Specialty Start Date End Date Jairon Gomez MD PCP - General 09/23/10 07/28/[address] [place] [address] documented as of this encounter
--- OUTSIDE RECORDS SUMMARY | 2022-08-15 01:36 | XMS_ITS | Encounter Summary ---
:1955 Author Organization [facility] [place] [address] Care Team Providers Name Role Phone Jairon Gomez MD Primary Care Provider Encounter Details Date Type Department Care Team Description 04/19/2015 Orders Only Cardiology at [facility] [place] Gordon Francis MD Bradycardia [facility] D [facility] [place] [address] CARDIOLOGY DEPT [phone] [place], [place] [address] (Wo rk) Social History Tobacco [...] Radiology Aissatou Briggs Canc eled (D-SCHED ERROR APPLICATIONS SCIENTIST / CORRECTION ) [address] [place], [place] [id number] (Wo rk) Scheduled Orders Name Type Priority Associated Diagnoses Order S chedule EKG 12 Lead ECG Routine Bradycardia Ordered: 2014 documented as of this encounter Visit Diagnoses Diagnosis Bradycardia Other specified cardiac dysrhythmias documented in this encounter Care Teams Employment Program Representative Relationship Specialty Start Date End Date Jairon Gomez MD PCP - General 09/23/10 07/28/16 [address] [place] [address] documented as of this encounter
--- OUTSIDE RECORDS SUMMARY | 2022-08-15 01:36 | XMS_ITS | Encounter Summary ---
:1955 Author Organization [facility] Address [address] [place] [address] Care Team Providers Name Role Phone Jairon Gomez MD Primary Care Provider [phone] Encounter Details Date Type Department Care Team Description 03/22/2013 [place] [facility] [place] Hayes Localization-related epileps y (Primary Dx); [facility] MD Marielle Central pain syndrome; Drive [facility] [place] [place] [address] NEUROLOGY DEPT. [place], [place] [address] (Wo rk) Social History Tobacco [...] Sign Reading Time Taken Comments Blood Pressure 114/73 03/22/2013 2:47 PM EDT Pulse 63 03/22/2013 2:47 PM EDT Temperature - - Respiratory Rate - - Oxygen Saturation - - Inhaled Oxygen Concentration - - Weight 68 kg (150 lb) 03/22/2013 2:47 PM EDT Height 165.1 cm (5' 5) 03/22/2013 2:47 PM EDT Body Mass Index 24.96 03/22/2013 2:47 PM EDT documented in this encounter Progress Notes Gustavo Hayes MD - 03/22/2013 2:52 PM EDT [facility] [place] [address] PCP - JAIRON GOMEZ MD Re - Miguel Pérez Follow-up Evaluation I saw Miguel Pérez today for a scheduled follow-up evaluation. Miguel Pérez is a 57 y.o. with a history of seizures. 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, non-refractory, s/p TBI at age 23 with DEDE Seizure semiology: #1: generalized convulsion MRI: 04/16/11 at [facility] left temporal encephalomalacia EE05/2011 generalized slowing, left temporal sharp theta Epilepsy Risk Factors: TBI, abnormal EEG, abnormal MRI Current AEDs: Dilantin 100/200 ; topamax 125 mg BID Levels: phe 18.8 Past Medications: Keppra, unclear why stopped PMHx: TBI with DEDE and subsequent cognitive dysfunction, memory loss Lower leg pain and weakness (groin pain) presumably secondary to lumbar stenosis, although uncertain Refractory depression HTN AL April 2011 with stent placement 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 Denies any side effects of medications. Stroke - Reports improved movement in the left side. Continues to take ASA and plavix. Pain - Pain is covering the left arm and leg but not face and is 8/10 in severity. Patient taking neurontin 600 TID with help. Also takes 1 Vicodin twice daily. Memory - continues to be bad. Due to DEDE following TBI. Current Medications Current Outpatient Prescriptions on File Prior to Visit Medication Sig Dispense Refill ??? hydroCODone-acetaminophen (VICODIN) 5-500 mg per tablet Take 1 tablet by mouth 2 times daily. For pain 60 tablet 3 ??? citalopram (CELEXA) 40 mg tablet Take 1 tablet by mouth every morning. ??? clopidogrel (PLAVIX) 75 mg tablet Take 75 mg by mouth daily. ??? FLUoxetine (PROZAC) 20 mg capsule Take 20 mg by mouth daily. ??? gabapentin (NEURONTIN) 300 mg capsule Take 2 capsules by mouth 3 times daily for 30 days. 180 capsule 12 ??? niacin (NIASPAN ER) 500 mg ER tablet Take 500 mg by mouth nightly. ??? FLUoxetine (PROZAC) 10 mg tablet Take 10 mg by mouth daily. ??? docusate sodium (COLACE) 100 mg capsule Take 100 mg by mouth daily as needed. ??? aspirin 81 mg EC tablet Take 81 mg by mouth every evening. ??? lisinopril (PRINIVIL;ZESTRIL) 5 mg tablet Take 5 mg by mouth every morning. ??? fluticasone (FLOVENT) 110 mcg/Actuation inhaler Inhale 1 puff into the lungs 2 times daily. 1 Inhaler 3 ??? simvastatin (ZOCOR) 40 mg tablet Take 1 tablet by mouth every evening. ??? metoprolol succinate (TOPROL-XL) 25 mg 24 hr tablet Take 1 tablet by mouth daily. 30 tablet 12 ??? ibuprofen (ADVIL;MOTRIN) 200 mg tablet Take 200 mg by mouth every 6 hours as needed. ??? ibuprofen (ADVIL;MOTRIN) 400 mg tablet Take 1 tablet by mouth every 4 hours as needed. ??? traZODone (DESYREL) 100 mg tablet Take 200 mg by mouth nightly. ??? Levalbuterol Tartrate (XOPENEX HFA) 45 mcg/Actuation inhaler Inhale 1-2 puffs into the lungs every 4 hours as needed. ??? phenytoin (DILANTIN KAPSEAL) 100 mg ER capsule Take 1 capsule by mouth every morning, and 2 capsules every evening. Brand name only. ??? hydrOXYzine (ATARAX) 25 mg tablet Take 1 tablet by mouth every 6 hours as needed. 30 tablet 3 ??? nabumetone (RELAFEN) 500 mg tablet Take 1 tablet by mouth 2 times daily. 60 tablet 3 ??? omeprazole (PRILOSEC) 20 mg capsule Take 1 capsule by mouth daily. 30 capsule 3 Seizure Control: QEpilepsy 03/22/2013 Last seizure was: Within past year Number of seizures in past month: - Were seizures disabling? No Social Factors: Social Factors 03/22/2013 Employment status: No Currently driving: Yes Review of Systems: Review of systems 03/22/2013 1. double vision - 2. headache - 3. rash - 4. unsteadiness Often 5. upset stomach, nausea, vomiting Often 6. troubles with gums or teeth - 7. weight loss or gain - 8. tremors or shaking - 9. restlessness - 10. dizziness Often 11. tiredness/sleepiness - 12. trouble sleeping - 13. difficulties concentrating - 14. feelings of aggression - 15. depression - 16. thoughts about ending your life - 17. palpitations or chest pains - 18. bladder problems - 19. breathing problems - Memory and concentration symptoms (QOLIE-31) Memory and concentration symptoms (QOLIE-31) 09/05/2012 Memory problems All of the time Difficulty reasoning and solving problems All of the time Trouble remembering things people tell All of the time Trouble concentrating on reading All of the time Trouble concentrating on doing one thing at a time Some of the time How much do your memory difficulties bother you? 3 QOLIE-31 1.83 (low scores suggest severe memory symptoms) Depression Score (NDDI-E) Depression Score (NDDI-E) 09/05/2012 Depression Score 23 (scores >15 suggest MDD) Quality of Life Quality of Life 09/05/2012 Quality of Life (10-Best Quality of Life; 0-Worst Quality of Life) 8 ExaminationFiled Vitals: 03/22/13 1447 BP: 114/73 Pulse: 63 Height: 165.1 cm (5' 5) Weight: 68.04 kg (150 lb) Patient came in on a wheelchair. He is able to stand but has severe pain. He has clear left hemiparesis and hemianesthesia (including face). No vf deficit or neglect. Reports severe pain in left side of body. IMPRESSION/PLAN 1. Seizures - no changes in present AEDs. 2. Stroke - Continues to take ASA and plavix. No further rehab. 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 Increase Neurontin to 900 mg TID 4. Memory loss -Reviewed memory strategies Follow up in 1 year. documented in this encounter Plan of Treatment Upcoming Encounters Date Type Specialty Care Team Description 09/04/2022 Ancillary Procedure Radiology ChesterAissatou Canc eled (D-SCHED ERROR SMT OPERATOR / CORRECTION ) [address] [place] [address] (Wo rk) documented as of this encounter Visit Diagnoses Diagnosis Localization-related epilepsy - Primary Localization-related (focal) (partial) e pilepsy and epileptic syndromes with simple partial seizures, without mention of int ractable epilepsy Central pain syndrome Low back pain Lumbago documented in this encounter Care Teams Communications Instructor Relationship Specialty Start Date End Date Jairon Gomez MD PCP - General 09/23/10 07/28/[address] [place] [address] documented as of this encounter
--- OUTSIDE RECORDS SUMMARY | 2022-08-15 01:36 | XMS_ITS | Encounter Summary ---
:1955 Author Organization [facility] [place] [address] Care Team Providers Name Role Phone Jairon Gomez MD Primary Care Provider [phone] Reason for Visit Reason Onset Date Comments Medication Refill 12/25/2015 Encounter Details Date Type Department Care Team Description 12/25/2015 Telephone Neurology at [facility] [place] Gustavo Hayes, Medication Refill [facility] [place] [address] [facility] [phone] NEUROLOGY DEPT. [place], [place] [address] (Wo rk) Social History Tobacco Use Types Packs/Day Years Used Date Former Smoker Cigarettes Quit: 05/14/20 08 Smokeless Tobacco: Never Used Alcohol Use Standard Drinks/Week Comments No 0 (1 standard drink = 0.6 oz pure alcoho l) Sex Assigned at Date Recorded Not on file documented as of this encounter Miscellaneous Notes Telephone Encounter - Constance Michelle CMA - 12/25/2015 9:44 AM EST Refill request prepped and sent to Dr. Hayes for review and signature. Telephone Encounter - Diana Cobb - 12/25/2015 8:55 AM EST Name of Med: hydrocodone-acetaminophen NORCO Strength of Pills: 5-325mg tablet Dosing Directions: take 1 tablet by mouth 2 times daily as needed for pain 30 or 90 Day: 30 Pharmacy: [facility] Last Appointment: 04/02/2015 Next Appointment: none Is Patient out of Medication?: YES documented in this encounter Plan of Treatment Upcoming Encounters Date Type Specialty Care Team Description 09/04/2022 Ancillary Procedure Radiology Aissatou Briggs Canc eled (D-SCHED ERROR DRAFTER APPRENTICE / CORRECTION ) [address] [place] [address] (Wo rk) documented as of this encounter Visit Diagnoses Not on filedocumented in this encounter Care Teams Reconciliation Coordinator Relationship Specialty Start Date End Date Jairon Gomez MD PCP - General 09/23/10 07/28/[address] [place] [address] documented as of this encounter
--- OUTSIDE RECORDS SUMMARY | 2022-08-15 01:36 | XMS_ITS | Encounter Summary ---
:1955 Author Organization [facility] [place] [address] Care Team Providers Name Role Phone Jairon Gomez MD Primary Care Provider [phone] Reason for Visit Reason Onset Date Comments Medication Management 04/24/2015 Encounter Details Date Type Department Care Team Description 04/24/2015 Telephone Cardiology at [facility] [place] Luisa Noble, Medication Management [facility] [place] [address] Social History Tobacco Use Types Packs/Day Years Used Date Former Smoker Cigarettes Quit: 05/14/20 08 Smokeless Tobacco: Never Used Alcohol Use Standard Drinks/Week Comments No 0 (1 standard drink = 0.6 oz pure alcoho l) Sex Assigned at Date Recorded Not on file documented as of this encounter Miscellaneous Notes Telephone Encounter - Gordon Francis - 04/24/2015 5:24 PM EDT Unable to reach patient by his only listed phone number - his number is disconnected. His family number is wrong. His PCP's office is closed. Our office will have to update his contact information (hisPCP had a current phone number), before I can reach the patient successfully. Gordon Francis MD Neurocritical Care Physician Pager [phone] Daytime Telephone Encounter - Luisa Noble, RN - 04/24/2015 3:40 PM EDT Patient calling in with update on his heart rate. On Wednesday,pulse was in the 50's, Wednesday he didn't check, Wednesday it was in the 70's and Wednesday(today) it has been 53-57. He is feeling good, no chest pain or fatigue. He has been holding his metoprolol. Wants to know what he needs to do next. Will forward note to Dr. Francis for further instructions. documented in this encounter Plan of Treatment Upcoming Encounters Date Type Specialty Care Team Description 09/04/2022 Ancillary Procedure Radiology Aissatou Briggs, Berto velázquez (D-SCHED ERROR FINE ARTS INSTRUCTOR / CORRECTION ) [address] [place] [address] (Wo rk) documented as of this encounter Visit Diagnoses Not on filedocumented in this encounter Care Teams Internal Combustion Engine Assembler Relationship Specialty Start Date End Date Jairon Gomez MD PCP - General 09/23/10 07/28/[address] [place] [address] documented as of this encounter
--- OUTSIDE RECORDS SUMMARY | 2022-08-15 01:36 | XMS_ITS | Encounter Summary ---
:1955 Author Organization [facility] [place] [address] Care Team Providers Name Role Phone Jairon Gomez MD Primary Care Provider [phone] Encounter Details Date Type Department Care Team Description 04/02/2014 Office Visit Cardiology at [facility] Amado Christianson MD [facility] [place] [address] STEMI (ST elevation [facility] Gordon Francis MD [facility] [place] [address] myocardial infarction) Drive (Primary Dx) [place] [id number] Social History Tobacco Use Types Packs/Day Years Used Date Former Smoker Cigarettes Quit: 05/14/20 08 Smokeless Tobacco: Never Used Alcohol Use Standard Drinks/Week Comments No 0 (1 standard drink = 0.6 oz pure alcoho l) Sex Assigned at Date Recorded Not on file documented as of this encounter Last Filed Vital Signs Vital Sign Reading Time Taken Comments Blood Pressure 120/62 04/02/2014 1:48 PM EDT Pulse 63 04/02/2014 1:48 PM EDT Temperature - - Respiratory Rate - - Oxygen Saturation 98% 04/02/2014 1:48 PM EDT Inhaled Oxygen Concentration - - Weight 68.9 kg (152 lb) 04/02/2014 1:48 PM EDT Height 162.6 cm (5' 4) 04/02/2014 1:48 PM EDT Body Mass Index 26.09 04/02/2014 1:48 PM EDT documented in this encounter Progress Notes Amado Christianson MD - 04/19/2014 5:07 PM EDT Staff Addendum: Although I provided general supervision of the fellow during this patient encounter,I did not directly provide care and neither interviewed nor examined the patient. Gordon Francis - 04/02/2014 6:08 PM EDT Cardiology Established Patient Visit PCP: JAIRON GOMEZ MD CC: Follow up of CAD Patient Active Problem List Diagnosis ??? Testicle pain Overview Note: ??? Chest pain on exertion; prior STEMI with Cath ??? STEMI (ST elevation myocardial infarction) Overview Note: ??? Epilepsy Overview Note: ??? Memory loss ??? TBI (traumatic brain injury) Overview Note: ??? Depression ??? GERD (gastroesophageal reflux disease) Overview Note: ??? Allergic rhinitis ??? Left-sided muscle weakness ??? Facial droop HPI: Miguel Pérez is a 58 y.o. male With PMHX significant for CAD (s/p inferior STEMI 04/15/2011, 100% distal LCx occlusion, EF=52%), and other PMHx of TBI, epilepsy, stroke 2010, GERD, who presents for follow up of CAD. He feels well. He reports the same episodic atypical chest pain he felt at the last visit. It is described as completely unlike his anginal pain (which was substernal). It is left sided, sharp, underneath the left breast, lasts up to a few hours at a time. It can happen at rest or with exertion. The patient reports that it is occasionally relieved by aspirin or nitroglycerin, but on further questioning, nitroglycerin does NOT cause relief within 5 minutes, but much more slowly. The patient attributes the pain to muscular pain. It the same pain he described at the last cardiology appointment (07/28/2013). It is the same chest pain for which he had a stress test in 2011. The pain was bad/frequent 1-2months ago, but is qiuescent these days. He went to the [facility] ED ~2months ago for this pain (out of curiosity, apparently), and was discharged with a diagnosis of noncardiac chest pain. No medication changes have been made in the last year. ROS: : No bleeding symptoms on aspirin and plavix No hematuria No hematochezia/melena No oral bleeding/epistaxis Weight overall stable Medications: Outpatient Prescriptions Marked as Taking for the 04/02/14 encounter (Office Visit) with Amado Christianson MD Medication Sig Dispense Refill ??? lamoTRIgine (LAMICTAL) 100 mg tablet Take 1 tablet by mouth daily. ??? hydrOXYzine (VISTARIL) 25 mg capsule Take 25 mg by mouth 4 times daily. ??? fluticasone (FLONASE) 50 mcg/actuation nasal spray 1 spray by Nasal route as needed. ??? metoprolol succinate (TOPROL-XL) 25 mg 24 hr tablet Take 1 tablet by mouth daily. 90 tablet 3 ??? Levalbuterol Tartrate (XOPENEX HFA) 45 mcg/actuation inhaler Inhale 1-2 puffs into the lungs every 4 hours as needed. ??? HYDROcodone-acetaminophen 5-325 mg per tablet Take 1 tablet by mouth 2 times daily as needed forPain. 60 tablet 3 ??? [DISCONTINUED] metoprolol succinate (TOPROL-XL) 25 mg 24 hr tablet Take 1 tablet by mouth daily.90 tablet 3 ??? nitroGLYcerin (NITROSTAT) 0.[address] 0.4 mg under the tongue as needed. ??? gabapentin (NEURONTIN) 300 mg capsule Take 3 capsules by mouth 3 times daily for 30 days. 180 capsule 12 ??? citalopram (CELEXA) 40 mg tablet Take 1 tablet by mouth daily. ??? [DISCONTINUED] simvastatin (ZOCOR) 40 mg tablet Take 1 tablet by mouth every evening. ??? traZODone (DESYREL) 100 mg tablet Take 200 mg by mouth nightly. ??? docusate sodium (COLACE) 100 mg capsule Take 100 mg by mouth daily. ??? aspirin 81 mg EC tablet Take 81 mg by mouth daily. ??? lisinopril (PRINIVIL;ZESTRIL) 5 mg tablet Take 5 mg by mouth daily. ??? phenytoin (DILANTIN KAPSEAL) 100 mg ER capsule Take 1 capsule by mouth every morning, and 2 capsules every evening. Brand name only. ??? fluticasone (FLOVENT) 110 mcg/Actuation inhaler Inhale 1 puff into the lungs 2 times daily. 1 Inhaler 3 ??? nabumetone (RELAFEN) 500 mg tablet Take 1 tablet by mouth 2 times daily. 60 tablet 3 ??? omeprazole (PRILOSEC) 20 mg capsule Take 1 capsule by mouth daily. 30 capsule 3 Allergies as of 04/02/2014 - Review Complete 04/02/2014 Allergen Reaction Noted ??? Abilify (aripiprazole) Rash 04/02/2014 ??? Aspirin 04/02/2014 ??? Codeine Nausea And Vomiting and Rash 04/02/2014 ??? Oxycodone Rash 04/02/2014 Social History: Quit smoking 2007, smoked for ~32 years, many pipes per day. Quit alcohol use ~24 years ago, prior history of alcohol abuse. Uses a cane due to imbalance, lives with his longstanding girlfriend. Family History: Father of cancer. Brother of lung cancer. Mother of unknown heart problem, at unclear age. One sister with unknown heart problems. Exam: Vitals: Filed Vitals: 04/02/14 1348 BP: 120/62 Pulse: 63 General: In no acute distress, nondiaphoretic, nontachypneic Head: normocephalic, atraumatic ENT: clear oropharynx, moist mucous membranes CV: JVP 7 cm, S1S2 regularly regular, no murmurs/rubs/gallops, no RV heave, PMI nondisplaced Lungs: Clear to auscultation bilaterally, no wheezes/rales/rhonchi, Abdomen: soft, NT/ND Ext: no clubbing, cyanosis or edema. Pedal pulses 2+. Labs: Recent Labs Basename 07/18/13 1702 HDL -- LDLCHOL -- LDLDIRECT 52 TRIG -- Regadenoson Mibi stress test 04/11/2012 Inferolateral wall scar, extending from the base to the apex with a small area of mild brittnee-infarct ischemia. Associated mild lateral wall hypokinesis and mild hypokinesis at the base of the inferior wall, estimated LVEF of 46%. Cath films from 2010 reviewed Assessment/Plan: Miguel Pérez is a 58 y.o.male presenting with PMHx of CAD with inferior STEMI and PCI to distal LCX with BMS 04/2011, and other PMHx of TBI, epilepsy, stroke 2010, GERD, former smoker, who presents for follow up of CAD. The patient's chest pain is nonanginal, and is the same to prior evaluations in 2011 (nuclear stresstest) and 2012 (D-dimer). He was recently evaluated 2 months ago for ACS. It does not need further assessment. His hypertension is controlled. His hyperlipidemia is controlled, but given his young age and large cumulative future risk of cardiovascular events, I have elected to increase his statin, from simvastatin 40mg, to atorvastatin 80mg a day, for higher statin potency and lipid lowering effects. Since it is generic now, this should be an easy change for the patient. He is agreeable. Otherwise, he is on guideline driven management. For his CAD, he is on aspirin, statin, beta-duarte, and FEDERICO inhibitor. For his prior stroke, his on DAPT with clopidogrel. After his uncomplicated coronary bare metal stent in 2010, he does not need the clopidogrel for his CAD. He can come back to cardiology clinic in 1 year. I saw this patient without the input of an attending. Recommendations: -statin increased from simvastatin 40mg, to atorvastatin 80mg a day. Prescription filled. Gordon Francis MD Hoop Flaring Machine Operator Pager [phone] Daytime documented in this encounter Plan of Treatment Upcoming Encounters Date Type Specialty Care Team Description 09/04/2022 Ancillary Procedure Radiology Aissatou Briggs, Canmanoj elelake (D-SCHED ERROR TAX ACCOUNTING MANAGER / CORRECTION ) [address] [place] [address] (Wo rk) documented as of this encounter Visit Diagnoses Diagnosis STEMI (ST elevation myocardial infarctio n) - Primary Acute myocardial infarction, unspecified site, episode of care unspecified documented in this encounter Care Teams Physical Security Engineer Relationship Specialty Start Date End Date Jairon Gomez MD PCP - General 09/23/10 07/28/[address] [place] [address] documented as of this encounter
--- OUTSIDE RECORDS SUMMARY | 2022-08-15 01:36 | XMS_ITS | Encounter Summary ---
:1955 Author Organization [facility] [address] Care Team Providers Name Role Phone Jairon Gomez MD Primary Care Provider Reason for Visit Reason Onset Date Comments Medication Refill 11/28/2015 Encounter Details Date Type Department Care Team Description 11/28/2015 Telephone Neurology at [facility] [place] Constance Michelle, Medication Refill [facility] [place] [address] Social History Tobacco Use Types Packs/Day Years Used Date Former Smoker Cigarettes Quit: 05/14/20 08 Smokeless Tobacco: Never Used Alcohol Use Standard Drinks/Week Comments No 0 (1 standard drink = 0.6 oz pure alcoho l) Sex Assigned at Date Recorded Not on file documented as of this encounter Miscellaneous Notes Telephone Encounter - Constance Micehlle CMA - 11/28/2015 10:27 AM EST New Rx for HYDROcodone-acetaminophen 5-325 mg Tablet Mailed to requested pharmacy. . [facility]. documented in this encounter Plan of Treatment Upcoming Encounters Date Type Specialty Care Team Description 09/04/2022 Ancillary Procedure Radiology Aissatou Briggs Canc eled (D-SCHED ERROR FLAP CURER / CORRECTION ) [address] [place] [address] (Wo rk) documented as of this encounter Visit Diagnoses Not on filedocumented in this encounter Care Teams Lumber Marker Relationship Specialty Start Date End Date Jairon Gomez MD PCP - General 09/23/10 07/28/[address] [place] [address] documented as of this encounter
--- OUTSIDE RECORDS SUMMARY | 2022-08-15 01:36 | XMS_ITS | Encounter Summary ---
:1955 Author Organization [facility] [place] [address] Care Team Providers Name Role Phone Jairon Gomez MD Primary Care Provider [phone] Encounter Details Date Type Department Care Team Description 11/29/2014 Telephone Neurology at [facility] [place] [address] Social History Tobacco Use Types Packs/Day Years Used Date Former Smoker Cigarettes Quit: 05/14/20 08 Smokeless Tobacco: Never Used Alcohol Use Standard Drinks/Week Comments No 0 (1 standard drink = 0.6 oz pure alcoho l) Sex Assigned at Date Recorded Not on file documented as of this encounter Miscellaneous Notes Telephone Encounter - Marissa Story LPN - 11/29/2014 1:05 PM EST Mailed rx oxycontin to [facility] pharmacy documented in this encounter Plan of Treatment Upcoming Encounters Date Type Specialty Care Team Description 09/04/2022 Ancillary Procedure Radiology Aissatou Briggs Canc eled (D-SCHED ERROR MAINTENANCE AND ENGINEERING MANAGER / CORRECTION ) [place] [address] [place] [address] (Wo rk) documented as of this encounter Visit Diagnoses Not on filedocumented in this encounter Care Teams Rn Intake Relationship Specialty Start Date End Date Jairon Gomez MD PCP - General 09/23/10 07/28/[address] [place] [address] documented as of this encounter
--- OUTSIDE RECORDS SUMMARY | 2022-08-15 01:36 | XMS_ITS | Encounter Summary ---
:1955 Author Organization [facility] [place] [address] Care Team Providers Name Role Phone Jairon Gomez MD Primary Care Provider [phone] Reason for Visit Reason Onset Date Comments Other 06/07/2014 Medication issue Encounter Details Date Type Department Care Team Description 06/07/2014 Telephone Neurology at [facility] Gustavo Hayes Other (Medication [facility] MD Marielle issue) [place] [address] NEUROLOGY DEPT. [place], [place] [address] (Wo rk) Social History Tobacco Use Types Packs/Day Years Used Date Former Smoker Cigarettes Quit: 05/14/20 08 Smokeless Tobacco: Never Used Alcohol Use Standard Drinks/Week Comments No 0 (1 standard drink = 0.6 oz pure alcoho l) Sex Assigned at Date Recorded Not on file documented as of this encounter Miscellaneous Notes Telephone Encounter - Melissa Alvarado RN - 06/07/2014 3:24 PM EDT Marisa, the Pharmacist advised this issue was taken care of by Dr. Rosas this afternoon. Done. Telephone Encounter - Arely Blount - 06/07/2014 2:13 PM EDT Modesta, the pharmacist from [facility], called stating that the prescription for Hydrocodone-acetaminophen 5-325 mg would not go through under Dr. Hayes's name due to the YIMI has . The YIMI information for the clinic attending for 06/07/14 was given to Modesta at [facility]. documented in this encounter Plan of Treatment Upcoming Encounters Date Type Specialty Care Team Description 09/04/2022 Ancillary Procedure Radiology Aissatou Briggs Canc eled (D-SCHED ERROR OFF PREMISE SERVICE REPRESENTATIVE / CORRECTION ) [address] [place], [place] [id number] (Wo rk) documented as of this encounter Visit Diagnoses Not on filedocumented in this encounter Care Teams Lead Dental Assistant Relationship Specialty Start Date End Date Jairon Gomez MD PCP - General 09/23/10 07/28/[address] [place] [address] documented as of this encounter
--- OUTSIDE RECORDS SUMMARY | 2022-08-15 01:36 | XMS_ITS | Encounter Summary ---
:1955 Author Organization [facility] [place] [address] Care Team Providers Name Role Phone Jairon Gomez MD Primary Care Provider [phone] Encounter Details Date Type Department Care Team Description 04/02/2014 Follow-Up Neurology at [facility] Gustavo Hayes Localization-related [facility] MD Marielle epilepsy (Primary Dx) [place] [address] NEUROLOGY DEPT. [place], [place] [address] (Wo rk) Social History Tobacco [...] Sign Reading Time Taken Comments Blood Pressure 112/64 04/02/2014 12:11 PM EDT Pulse 52 04/02/2014 12:11 PM EDT Temperature - - Respiratory Rate - - Oxygen Saturation - - Inhaled Oxygen - - Concentration Weight 68.1 kg (150 lb 3.2 04/02/2014 12:11 Measured wi th boots oz) PM EDT on Height 162.6 cm (5' 4) 04/02/2014 12:11 Reported PM EDT Body Mass Index 25.78 04/02/2014 12:11 PM EDT documented in this encounter Progress Notes Gustavo Hayes MD - 04/02/2014 12:25 PM EDT [facility] [place] [address] PCP - JAIRON GOMEZ MD Re - Miguel Pérez Follow-up Evaluation I saw Miguel Pérez today for a scheduled follow-up evaluation. Miguel Pérez is a 58 y.o. with a history of seizures. 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 Denies any side effects of medications. Taking phenytoin monotherapy. Patient not sure when his levels are checked. Stroke - Reports improved movement in the [...] to Visit Medication Sig Dispense Refill ??? Levalbuterol Tartrate (XOPENEX HFA) 45 mcg/actuation inhaler Inhale 1-2 puffs into the lungs every 4 hours as needed. ??? HYDROcodone-acetaminophen 5-325 mg per tablet Take 1 tablet by mouth 2 times daily as needed forPain. 60 tablet 3 ??? metoprolol succinate (TOPROL-XL) 25 mg 24 hr tablet Take 1 tablet by mouth daily. 90 tablet 3 ??? nitroGLYcerin (NITROSTAT) 0.[address] 0.4 mg under the tongue as needed. ??? gabapentin (NEURONTIN) 300 mg capsule Take 3 capsules by mouth 3 times daily for 30 days. 180 capsule 12 ??? simvastatin (ZOCOR) 40 mg tablet Take 1 tablet by mouth every evening. ??? citalopram (CELEXA) 40 mg tablet Take 1 tablet by mouth daily. ??? traZODone (DESYREL) 100 mg tablet Take [...] by mouth daily. 30 capsule 3 ??? [DISCONTINUED] clopidogrel (PLAVIX) 75 mg tablet Take 75 mg by mouth daily. Seizure Control: QEpilepsy 04/02/2014 Last seizure was: - Number of seizures in past month: - Were seizures disabling? Yes Social Factors: QEPILEPSY SOCIAL FACTORS 04/02/2014 Employment status: No Currently driving: Yes Review of Systems: Review of systems 04/02/2014 1. double vision Never 2. headache Sometimes 3. rash Never 4. unsteadiness Sometimes 5. upset stomach, nausea, vomiting Never 6. troubles with gums or teeth Sometimes 7. weight loss or gain Never 8. tremors or shaking Never 9. restlessness Never 10. dizziness Sometimes 11. tiredness/sleepiness Often 12. trouble sleeping Never 13. difficulties concentrating Never 14. feelings of aggression Never 15. depression Never 16. thoughts about ending your life Never 17. palpitations or chest pains Often 18. bladder problems Never 19. breathing problems Never Memory and concentration symptoms (QOLIE-31) QEPILEPSY QOLIE31 04/02/2014 Memory problems All of the time Difficulty reasoning and solving problems All of the time Trouble remembering things people tell All of the time Trouble concentrating on reading All of the time Trouble concentrating on doing one thing at a time Most of the time How much do your memory difficulties bother you? 3 QOLIE-31 1.16 (low scores suggest severe memory symptoms) Depression Score (NDDI-E) QEPILEPSY DEPRESSION SCORE 04/02/2014 Depression Score 14 (scores >15 suggest Major Depression) Quality of Life QEPILEPSY QOL 04/02/2014 Quality of Life (10-Best Quality of Life; 0-Worst Quality of Life) 5 ExaminationFiled Vitals: 04/02/14 1211 BP: 112/64 Pulse: 52 Height: 162.6 cm (5' 4) Weight: 68.13 kg (150 lb 3.2 oz) Patient came in on a wheelchair. He is able to stand but has severe pain. He has clear left hemiparesis and hemianesthesia (including face). No vf deficit or neglect. Reports severe pain in left side of body. IMPRESSION/PLAN 1. Seizures - no changes in present AEDs. - dilantin levels today - high risk of osteoporosis - bone density scan 2. Stroke - Continues to take ASA and plavix. No further rehab. 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 Increase Neurontin to 900 mg TID - no increase in vicodin 4. Memory loss -Reviewed memory strategies Follow up in 1 year. documented in this encounter Miscellaneous Notes Addendum Note - Keely Daigle - 04/02/2014 12:53 PM EDT Addended by: KEELY DAIGLE on: 04/02/2014 12:53 PM Modules accepted: Orders documented in this encounter Plan of Treatment Upcoming Encounters Date Type Specialty Care Team Description 09/04/2022 Ancillary Procedure Radiology [place], AissatouBerto Guillen (D-SCHED ERROR PATIENT OFFICE REP / CORRECTION ) [address] [place] [address] (Wo rk) documented as of this encounter Procedures Procedure Name Priority Date/Time Associated Diagnosis Comme nts PHENYTOIN LEVEL, Routine 04/02/2014 12:57 PM Localization-rela marleny Results for this TOTAL AND FREE EDT epilepsy procedure are in the results section. documented in this encounter Results Phenytoin level, total and free (04/02/2014 12:57 PM EDT) athologist Signature Phenytoin Lvl 15.1 10.0 - CERNER 20.0 mg/L MILLENNIUM Comment: Theraputic range: ??10-20 mg/L Toxic: ??> 25 mg/L Patients with renal dysfunction (e.g.cre atinine clearance < 30 mls/min) may show falsely elevated results due to acc umulation of metabolites in renal failure Phenytoin, Free 1.19 1.00 - 2.00 mg/L CERNER MILLENNIUM Comment: Therapeutic range: ? Free phenytoin: ??1.00-2.00 mg/L ? % Free phenytoin: ??8-12% Toxic range: ? Free phenytoin: ??>3.00 mg/L Phenytoin Free% 8 8 - 12 % CERNER MILLENN IUM Specimen Anatomical Collection Method Collection Time Receive d Time (Source) Location / / Volume Laterality Blood specimen 04/02/2014 12:57 4 1:07 (specimen) PM EDT PM EDT Resulting Agency Comment Spec In Lab Gustavo Hayes MD CHEMISTRY ORDERABLES Performing Organization Address City/State/[place] [address] [facility] documented in this encounter Visit Diagnoses Diagnosis Localization-related epilepsy - Primary Localization-related (focal) (partial) e pilepsy and epileptic syndromes with simple partial seizures, without mention of int ractable epilepsy documented in this encounter Care Teams Nut Tapper Relationship Specialty Start Date End Date Jairon Gomez MD PCP - General 09/23/10 07/28/[address] [place] [address] documented as of this encounter
--- OUTSIDE RECORDS SUMMARY | 2022-08-15 01:36 | XMS_ITS | Encounter Summary ---
:1955 Author Organization [facility] [place] [address] Care Team Providers Name Role Phone Jairon Gomez MD Primary Care Provider [phone] Reason for Visit Reason Onset Date Comments Medication Problem 03/18/2015 re: vicodin Encounter Details Date Type Department Care Team Description 03/18/2015 Telephone Neurology at [facility] Melissa Alvarado Medication Problem [facility] [address] (re: ale din) [place] [address] Social History Tobacco Use Types Packs/Day Years Used Date Former Smoker Cigarettes Quit: 05/14/20 08 Smokeless Tobacco: Never Used Alcohol Use Standard Drinks/Week Comments No 0 (1 standard drink = 0.6 oz pure alcoho l) Sex Assigned at Date Recorded Not on file documented as of this encounter Miscellaneous Notes Telephone Encounter - Melissa Alvarado RN - 03/19/2015 11:05 AM EDT Forward the [facility] Internal Medicine Office report of destroying vicodin script #6 tab on 03/[address] Hayes. Presently 04/[address] Hayes. Telephone Encounter - Meilssa Alvarado RN - 03/18/2015 3:37 PM EDT Caller: Lianna at [facility] Internal [facility] [phone] Reason for call: Lianna advises he was suppose to return a vicodin #6 tabs written on 03/01 and was returned 03/14 and destroyed by their Office on 03/18 documented in this encounter Plan of Treatment Upcoming Encounters Date Type Specialty Care Team Description 09/04/2022 Ancillary Procedure Radiology Aissatou Briggs, Berto velázquze (D-SCHED ERROR SECURITY SALES CONSULTANT / CORRECTION ) [address] [place], [place] [address] (Wo rk) documented as of this encounter Visit Diagnoses Not on filedocumented in this encounter Care Teams Trimming Caser Relationship Specialty Start Date End Date Jairon Gomez MD PCP - General 09/23/10 07/28/[address] [place] [address] documented as of this encounter
--- OUTSIDE RECORDS SUMMARY | 2022-08-15 01:36 | XMS_ITS | Encounter Summary ---
:1955 [place] [address] Care Team Providers Name Role Phone Jairon Gomez MD Primary Care Provider Reason for Visit Reason Onset Date Comments Medication Refill 07/01/2015 Encounter Details Date Type Department Care Team Description 07/01/2015 Refill [place] [facility] Gustavo Hayes MD [facility] [place] [address] NEUROLOGY DEPT. [phone] [place], [place] [address] (Wo rk) Social History [...] Radiology Aissatou Briggs Canc eled (D-SCHED ERROR HOISTMAN / CORRECTION ) [address] [place] [address] (Wo rk) documented as of this encounter Visit Diagnoses Not on filedocumented in this encounter Care Teams Regulatory Affairs Spec Relationship Specialty Start Date End Date Jairon Gomez MD PCP - General 09/23/10 07/28/[address] [place] [address] documented as of this encounter
--- OUTSIDE RECORDS SUMMARY | 2022-08-15 01:36 | XMS_ITS | Encounter Summary ---
:1955 Author Organization [facility] Address [address] [place] [address] Care Team Providers Name Role Phone Jairon Gomez MD Primary Care Provider [phone] Encounter Details Date Type Department Care Team Description 04/01/2015 Follow-Up Cardiology at [facility] Gordon Francis MD Coronary artery disease involving [place] coronary artery without angina pectoris; Formerly [facility] Car diomyopathy, ischemic; Drive DR ST elevation myocardial infarction invol ving left circumflex [place] [address] CARDIOLOGY DEPT [phone] [place] [id number] (Wo rk) Social History Tobacco Use Types Packs/Day Years Used Date Former Smoker Cigarettes Quit: 05/14/20 08 Smokeless Tobacco: Never Used Alcohol Use Standard Drinks/Week Comments No 0 (1 standard drink = 0.6 oz pure alcoho l) Sex Assigned at Date Recorded Not on file documented as of this encounter Last Filed Vital Signs Vital Sign Reading Time Taken Comments Blood Pressure 122/70 04/01/2015 2:29 PM EDT Pulse 52 04/01/2015 2:29 PM EDT Temperature - - Respiratory Rate - - Oxygen Saturation 97% 04/01/2015 2:29 PM EDT Inhaled Oxygen Concentration - - Weight 64.4 kg (142 lb) 04/01/2015 2:29 PM EDT Height 162.6 cm (5' 4) 04/01/2015 2:29 PM EDT Body Mass Index 24.37 04/01/2015 2:29 PM EDT documented in this encounter Progress Notes Anna Das MD - 04/02/2015 9:33 AM EDT I was the attending physician supervising the resident in the above care. For the purposes of billing, the resident provided the care. Anna Das MD Gordon Francis - 04/01/2015 3:11 PM EDT Cardiology Established Patient Visit PCP: JAIRON GOMEZ MD CC: Follow up of CAD after STEMI in 2010 Patient Active Problem List Diagnosis ??? Testicle pain Overview Note: ??? ST elevation myocardial infarction (STEMI) of inferolateral wall, subsequent episode of care Overview Note: 04/15/2011: inferior STEMI. Distal LCX culprit 100% received BMSx1 (Integrity 2.5 x 14 mm stent). Discharge LVEF 52% by echo (TTE). Cath results below Right dominant LM: normal LAD: mid LAD with moderate diffuse disease, ostial D2 with 50% stenosis RCA: mild diffuse disease LCX: mild diffuse disease, distal 100% occlusion resolved with stent ??? CAD (coronary artery disease) Overview Note: 04/15/2011: inferior STEMI. Distal LCX culprit 100% [...] and associated hypokinesis. LVEF 46%. ??? Epilepsy Overview Note: ??? Memory loss ??? TBI (traumatic brain injury) Overview Note: ??? Depression ??? GERD (gastroesophageal reflux disease) Overview Note: ??? Allergic rhinitis ??? Left-sided muscle weakness ??? Facial droop HPI: Miguel Pérez is a 59 y.o. 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 He set up this appointment urgently due to a recent admission. He was hospitalized at [facility], 1-2 weeks ago, for knee pain and swelling, and bilateral leg weakness when getting out of bed, causing a mechanical fall. He is adamant that there was no loss of consciousness, lightheadedness, syncope, or racing heart rate. . He was in the hospital overnight. Per his PCP's notes, the patient apparently underwent an arthrocentesis, which showed gouty crystals, and was placed on steroids (medrol dose-pack). Review of his current list of medications reveals that he is still on clopidogrel 75 mg a day, whichI asked to be stopped last year. Regarding cardiac symptoms, he he reports being overall stable. He is active (walking half mile witha cane, gardening, playing with his cat) without chest pain or dyspnea. Until recently he also biteswithout symptoms, but his significant other recently told him to stop, do to balance issues. He rarely will use nitroglycerin, 3 times over the last year. It happens when he pushes himself too hard ,and describes like his prior anginal equivalent (with left arm pain) but milder. It is relieved with1-3 nitroglycerin, in less than 30 minutes. He has rare LH spells, described belo. RO.S: : He has rare lightheaded spells (a couple of times in last year), with no associated racing heart rate racing or palpitations. No syncope. Does not drive at all. Occasional retching, with mild hematemesis No epistaxis or oral bleeding No hematuria No hematochezia or melena Past Medical History Diagnosis Date ??? CAD (coronary artery disease), [place] coronary artery ??? ST elevation myocardial infarction (STEMI) involving left circumflex coronary artery in recoveryphase ??? TBI (traumatic brain injury) ??? Epilepsy ??? GERD (gastroesophageal reflux disease) Outpatient Prescriptions Marked as Taking for the 04/01/15 encounter (Follow-Up) with Gordon Francis MD Medication Sig Dispense Refill ??? gabapentin (NEURONTIN) 600 mg Tablet Take 600 mg by mouth 3 times daily. ??? atorvastatin (LIPITOR) 80 mg Tablet Take 1 tablet by mouth daily. 90 tablet 3 ??? meTOPROLOL succinate (TOPROL-XL) 25 mg Tablet Sustained Release 24 hr Take 1 tablet by mouth daily. 90 tablet 3 ??? nitroGLYcerin (NITROSTAT) 0.4 mg Tablet, Sublingual Place 1 tablet under the tongue as needed for up to 180 days. 30 tablet 1 ??? lisinopril (PRINIVIL;ZESTRIL) 5 mg Tablet Take 1 tablet by mouth daily. 90 tablet 3 ??? [DISCONTINUED] clopidogrel (PLAVIX) 75 mg Tablet Take 75 mg by mouth daily. ??? HYDROcodone-acetaminophen 5-325 mg Tablet Take 1 tablet by mouth 2 times daily as needed for Pain. Mail to [facility] 60 tablet 0 ??? citalopram (CELEXA) 40 mg tablet Take 1 tablet by mouth daily. 90 tablet 3 ??? hydrOXYzine (VISTARIL) 25 mg capsule Take 25 mg by mouth 4 times daily. ??? fluticasone (FLONASE) 50 mcg/actuation nasal spray 1 spray by Nasal route as needed. ??? [DISCONTINUED] metoprolol succinate (TOPROL-XL) 25 mg 24 hr tablet Take 1 tablet by mouth daily.90 tablet 3 ??? [DISCONTINUED] atorvastatin (LIPITOR) 80 mg tablet Take 1 tablet by mouth daily. 90 tablet 3 ??? [DISCONTINUED] nitroGLYcerin (NITROSTAT) 0.[address] 0.4 mg under the tongue as needed. ??? traZODone (DESYREL) 100 mg tablet Take 200 mg by mouth nightly. ??? docusate sodium (COLACE) 100 mg capsule Take 100 mg by mouth daily. ??? aspirin 81 mg EC tablet Take 81 mg by mouth daily. ??? [DISCONTINUED] lisinopril (PRINIVIL;ZESTRIL) 5 mg tablet Take 5 [...] capsule by mouth daily. 30 capsule 3 Allergies: is allergic to abilify; aspirin; codeine; and oxycodone. Social History: Quit smoking 2007, smoked for ~32 years, many pipes per day. Quit alcohol use ~24 years ago, prior history of alcohol abuse. Uses a cane due to imbalance, lives with his longstanding girlfriend. Family History: Father of cancer. Brother of lung cancer. Mother of unknown heart problem, atunclear age. One sister with unknown heart problems. Exam: Vitals: Filed Vitals: 04/01/15 1429 BP: 122/70 Pulse: 52 Body mass index is 24.36 kg/(m^2). General: In no acute distress, nondiaphoretic, nontachypneic Head: normocephalic, atraumatic ENT: clear oropharynx, moist mucous membranes CV: JVP not distended, S1S2 regularly regular, no murmurs/rubs/gallops Lungs: Clear to auscultation bilaterally, no wheezes/rales/rhonchi, Abdomen: soft, NT/ND Ext: no clubbing, cyanosis or edema of hands or feet Diagnostics: EKG today: sinus bradycardia, 50 bpm, inferior Q waves (old [place]). Jltijbluyed-gizscxlehj-50s-sestamibi stress test, 04/11/2012, imaging reviewed Inferolateral wall scar, extending from the base to the apex with a small area of mild brittnee-infarct ischemia as above. Associated mild lateral wall hypokinesis and mild hypokinesis at the base of the inferior wall, estimated LVEF of 46%. Echo 04/16/2011 1. Global left ventricular systolic function is mildly reduced. The quantitative left ventricular ejection fraction is52% byn Simpsons biplane There are left ventricular segmental wall motion abnormalities present, as shown in the diagram below. 2. Right ventricular chamber size, wall thickness, and systolic function are within normal limits. 3. There is no hemodynamically significant valve disease. 4. See remainder of report for additional findings. I reviewed the faxed PCP note from 03/18/2015 Assessment/Plan: Miguel Pérez is a 59 y.o. male presenting for the follow up of PMHx of CAD with inferior STEMI and PCI to distal LCX in April 2011, and other PMHx of TBI, epilepsy, stroke 2010, GERD, former smoker. He presents for follow up of CAD. He is stable from a cardiovascular standpoint. He had a recent admission for noncardiac reasons (newly diagnosed gouty arthritis causing falls). He remains on low dose aspirin (81mg a day), Plavix, high-dose atorvastatin (80 mg a day), low-dose metoprolol succinate (25mg a day), and low-dose lisinopril (5mg a day). He apparently did not stop his Plavix after our discussion last year. He is 4 years out from an uncomplicated PCI, with a bare metal stent. He has occasional falls, and possible gastritis based on symptoms. I have asked him to stopthe Plavix. I noted this in his home with and medication list, so that his pharmacists know. I refilled his cardiac medications today, at the patient's request. I would like the patient to havean echocardiogram at his next visit, to demonstrate the absence of an ischemic cardiomyopathy (LVEF of 46% by nuclear stress test in 2011 was likely an underestimation). There is no evidence of CHF on H&P today. The patient will be seen again in cardiology clinic, in 1 year, with repeat EKG and echo. I saw thispatient without the assistance of the cardiology attending. Recommendations: -Stop Plavix immediately -Continue aspirin 81 mg a day, indefinitely -Continue atorvastatin 80 mg a day, indefinitely -Continue metoprolol succinate, 25 mg a day, indefinitely (given prior [place]) -Continue lisinopril 5 mg a day, intermission coordinator Gordon Francis MD [employer] Pager [phone] Daytime documented in this encounter Plan of Treatment Upcoming Encounters Date Type Specialty Care Team Description 09/04/2022 Ancillary Procedure Radiology Aissatou Briggs, Canmanoj velázquez (D-SCHED ERROR DEGREASER / CORRECTION ) [address] [place] [address] (Wo rk) documented as of this encounter Procedures Procedure Name Priority Date/Time Associated Diagnosis Comme nts EKG 12-LEAD Routine 04/01/2015 2:43 PM Coronary artery Result s for this EDT disease involving procedure are in the [place] coronary results sect ion. artery without angina pectoris documented in this encounter Results EKG 12 Lead (04/01/2015 2:43 PM EDT) Component Value Ref Range Test Analysis Performed Pathologis t Method Time At Signature Ventricular rate 50 BPM MUSE SYSTEM Atrial Rate 50 BPM MUSE SYSTEM P-R Interval 156 ms MUSE SYSTEM QRS Duration 90 ms MUSE SYSTEM Q-T Interval 504 ms MUSE SYSTEM QTC Calculated 459 ms MUSE SYSTEM (Bezet) Calculated P [place] 60 degrees MUSE SYSTEM Calculated R [place] 39 degrees MUSE SYSTEM Calculated T [place] 8 degrees MUSE SYSTEM INTERPRETATION Sinus bradycardia MUSE SY STEM Nonspecific ST and T wave abnormality Abnormal ECG When compared with ECG of 18-JUL-2013 15:27, No significant change was found Confirmed by MD MILDRED, JARETH ([id number]) on 04/01/2015 6:11:02 PM Specimen Anatomical Collection Method Collection Time Receive d Time (Source) Location / / Volume Laterality 04/01/2015 2:43 PM 5 6:11 EDT PM EDT Anna Das MD ECG ORDERABLES Performing Organization Address City/State/ZIP Code Phon e Number MUSE SYSTEM documented in this encounter Visit Diagnoses Diagnosis Coronary artery disease involving [place] coronary artery without angina pectoris Cardiomyopathy, ischemic Other specified forms of chronic ischemi c heart disease ST elevation myocardial infarction invol ving left circumflex coronary artery Acute myocardial infarction of other spe cified sites, initial episode of care documented in this encounter Care Teams Size Stamper Relationship Specialty Start Date End Date Jairon Gomez MD PCP - General 09/23/10 07/28/[address] [place] [address] documented as of this encounter
--- OUTSIDE RECORDS SUMMARY | 2022-08-15 01:36 | XMS_ITS | Encounter Summary ---
:1955 Author Organization [facility] Address [facility] [address] [place] [address] Care Team Providers Name Role Phone Jairon Gomez MD Primary Care Provider [phone] Reason for Visit Reason Comments Chest Pain Atypical Encounter Details Date Type Department Care Team Description 07/18/2013 Office Visit Cardiology at [facility] Jonn Arroyo CAD (coronary artery disease ) (Primary Dx); [facility] MD Sumit Chest pain with painful respiration; Drive [facility] [place] [address] CARDIOLOGY DEPT. [phone] [place], [place] [address] Social History Tobacco Use Types Packs/Day Years Used Date Former Smoker Cigarettes Quit: 05/14/20 08 Smokeless Tobacco: Never Used Alcohol Use Standard Drinks/Week Comments No 0 (1 standard drink = 0.6 oz pure alcoho l) Sex Assigned at Date Recorded Not on file documented as of this encounter Last Filed Vital Signs Vital Sign Reading Time Taken Comments Blood Pressure 118/78 07/18/2013 2:45 PM EDT Pulse 60 07/18/2013 2:45 PM EDT Temperature - - Respiratory Rate - - Oxygen Saturation 96% 07/18/2013 2:45 PM EDT Inhaled Oxygen Concentration - - Weight 69.9 kg (154 lb) 07/18/2013 2:45 PM EDT Height 162.6 cm (5' 4) 07/18/2013 2:45 PM EDT Body Mass Index 26.43 07/18/2013 2:45 PM EDT documented in this encounter Patient Instructions Patient Edd Marcelo MD - 07/18/2013 4:39 PM EDT F/u 6 months Please have labwork checked today documented in this encounter Progress Notes Jonn Arroyo MD - 07/19/2013 2:39 PM EDT I have interviewed and examined this patient, reviewed our findings and recommendations with them and I agree with Dr. Sheth's note. Edd Sheth MD - 07/18/2013 1:28 PM EDT Images from the original note were not included. CC/Visit Diagnoses: reestablish cardiology f/u care, ASCVD, atypical CP HPI: 57yo WM with PMHX significant for CAD (s/p inferior STEMI 04/15/2011, 100% distal LCx occlusion, EF=52%), seizure hx, recurrent admission on 04/29/2011 for chest pain [facility] services dean, Dr Sandoval, has moved. He presents today with atypical chest pain that is worse with deep inspiration, but that is also elicited with palpation of his left chest below his nipple. It can last hours to sometimes the whole day. He also complains of bilateral leg pain and then says his right calf is very painful to palpation. He says he went to an [facility] ED 2-3 weeks ago where they told him to ice his R knee. He walks 1 mile a day, this takes him about 3 hours and he uses a cane towalk. He denies any chest pain with walking. He reports compliance with his medications. He complains of generalized fatigue. He denies worsening SOB, orthopnea/PND. ROS : [ ] Negative except as per HPI or if left unchecked General [ ] Fevers [ ] chills [ ] night sweats [ ] change in weight [+ ] fatigue HEENT [ ] change in vision or hearing [ ] sore throat [ ] PND. CVS [+ ] chest pain [ ] palpitations. Pulm [ ] shortness of breath [ ] ALEXANDER [+ ] cough. GI [ ] abdominal pain [ ] Nausea/vomiting [ ] constipation/diarrhea [ ] hematuria [ ] Dysuria [ ] frequency. MS [ ] arthralgia [ ] myalgias Endo [ ] diabetes [ ] heat/cold intolerance Heme/Lymph [ ] adenopathy [ ] easy bruising/bleeding Skin [ ] rash [ ] itching Neuro [ ] focal weakness [ ] paresthesias [ ] seizures Psych/Behavioral [ ] depression [ ] anxiety/nervousness Patient Active Problem List Diagnosis ??? Testicle pain ??? Chest pain on exertion; prior STEMI with Cath ??? STEMI (ST elevation myocardial infarction) ??? Epilepsy ??? Memory loss ??? TBI (traumatic brain injury) ??? Depression ??? GERD (gastroesophageal reflux disease) ??? Allergic rhinitis ??? Left-sided muscle weakness ??? Facial droop History Social History ??? Marital Status: Spouse Name: N/A Number of Children: N/A ??? Years of Education: N/A Occupational History ??? Not on file. Social History Main Topics ??? Smoking status: Former Smoker Types: Cigarettes Quit date: 05/14/2008 ??? Smokeless tobacco: Never Used ??? Alcohol Use: No ??? Drug Use: No ??? Sexually Active: Not on file Other Topics Concern ??? Not on file Social History Narrative ??? No narrative on file Former smoker. Quit. Family History: Mother - 2/2 cancer - unknown type Father - 2/2 spider cancer (?) Siblings - brother from cancer in his 50s unknown type - sister 2/2 CO at age 51 Other familial conditions - no sudden , CVA Current Outpatient Rx Name Route Sig Dispense Refill ??? METOPROLOL SUCCINATE 25 MG ORAL TABLET SR Oral Take 25 mg by mouth daily. ??? FLUTICASONE FUROATE NASL Nasal 1 Application by Nasal route daily. ??? NITROGLYCERIN 0.4 MG SL SUBL Sublingual Place 0.4 mg under the tongue every 5 minutes as needed. ??? HYDROCODONE-ACETAMINOPHEN 5-500 MG ORAL TAB Oral Take 1 tablet by mouth 2 times daily. For pain 60 tablet 3 ??? GABAPENTIN 300 MG ORAL CAP Oral Take 3 capsules by mouth 3 times daily for 30 days. 180 capsule 12 ??? SIMVASTATIN 40 MG ORAL TAB Oral Take 1 tablet by mouth every evening. ??? CITALOPRAM 40 MG ORAL TAB Oral Take 1 tablet by mouth every morning. ??? CLOPIDOGREL 75 MG ORAL TAB Oral Take 75 mg by mouth daily. ??? IBUPROFEN 200 MG ORAL TAB Oral Take 200 mg by mouth every 6 hours as needed. ??? IBUPROFEN 400 MG ORAL TAB Oral Take 1 tablet by mouth every 4 hours as needed. ??? TRAZODONE 100 MG ORAL TAB Oral Take 200 mg by mouth nightly. ??? LEVALBUTEROL TARTRATE 45 MCG/ACTUATION INHL HFAA Inhalation Inhale 1-2 puffs into the lungs every 4 hours as needed. ??? DOCUSATE SODIUM 100 MG ORAL CAP Oral Take 100 mg by mouth daily as needed. ??? ASPIRIN 81 MG ORAL TBEC Oral Take 81 mg by mouth every evening. ??? LISINOPRIL 5 MG ORAL TAB Oral Take 5 mg by mouth every morning. ??? PHENYTOIN SODIUM EXTENDED 100 MG ORAL CAP Take 1 capsule by mouth every morning, and 2 capsules every evening. Brand name only. ??? FLUTICASONE 110 MCG/ACTUATION INHL AERO Inhalation Inhale 1 puff into the lungs 2 times daily. 1 Inhaler 3 ??? HYDROXYZINE HCL 25 MG ORAL TAB Oral Take 1 tablet by mouth every 6 hours as needed. 30 tablet 3 ??? NABUMETONE 500 MG ORAL TAB Oral Take 1 tablet by mouth 2 times daily. 60 tablet 3 ??? OMEPRAZOLE 20 MG ORAL CPDR Oral Take 1 capsule by mouth daily. 30 capsule 3 ??? MIRTAZAPINE 15 MG ORAL TAB Oral Take 15 mg by mouth nightly. ??? METOPROLOL SUCCINATE 25 MG ORAL TABLET SR Oral Take 1 tablet by mouth daily. 30 tablet 12 ??? FLUOXETINE 20 MG ORAL CAP Oral Take 20 mg by mouth daily. ??? NIACIN 500 MG ORAL TABLET SR Oral Take 500 mg by mouth nightly. ??? FLUOXETINE 10 MG ORAL TAB Oral Take 10 mg by mouth daily. Allergies: Allergies Allergen Reactions ??? Codeine Phosphate Rash High doses cause rash ??? Asa Buff (Mag Carb-Al Glyc) (Aspirin, Buffered) Pt. Reports bleeding with ASA. BP 118/78 Pulse 60 Ht 162.6 cm (5' 4) Wt 69.854 kg (154 lb) BMI 26.43 kg/m2 SpO2 96% Physical Exam Constitutional: Appears well-developed and well-nourished and in no acute distress. Odd affect. HENT: Head: Normocephalic and atraumatic. Mouth/Throat: Oropharynx is clear and moist. Eyes: Conjunctivae are normal. Pupils are equal, round, and reactive to light. Neck: Normal range of motion. Neck supple. No JVD present. No thyromegaly. Cardiovascular: Normal rate, normal heart sounds and intact distal pulses. No murmur/rub/gallop heard. Pulmonary/Chest: Effort normal and breath sounds normal. No respiratory distress. + faint wheezes inBilateral upper lobes o/w CTA Abdominal: Soft, nontender, nondistended. Normal bowel sounds. Extremities: Normal range of motion. No clubbing, cyanosis. +trace edema/swelling around R knee; no erythema;generalized TTP of bilateral arms and legs Neurological: Alert and oriented to person, place, and time. L sided weakness Skin: Skin is warm and dry. No rash noted. Psychiatric: Normal mood and affect. Behavior is normal. Data: Nuclear Stress Test 04/12 IMPRESSION: Inferolateral wall scar, extending from the base to the apex with a small area of mild brittnee-infarct ischemia as above. Associated mild lateral wall hypokinesis and mild hypokinesis at the base of the inferior wall, estimated LVEF of 46%. NOTE: Results were discussed with both Drs. Armand Budren and Marciano Sandoval at the time of interpretation on 04/11/2012 at approximately 1150 hours. EKG 07/18/13 sinus gabe @ 57 bpm, inferior Q waves, QTc 439 ms, no acute ST-T changes Assessment/Plan: 57 yo male with PMHx significant for infSTEMI in 04/2011 (100% distal LCx occlusion s/p PCI, 50% ostial D2, EF=52%, nuclear scan 04/12 EF 46% inferolateral scar, mild brittnee-infarct ischemia),h/o atypical CP, epilepsy, memory loss, TBI, depression, GERD, left sided weakness who presents to reestablish care as his primary student services dean moved. Today, he complains of atypical chest pain as described in HPI. It does not seem cardiac in nature. Review of his cath farhan from 2010 show good results with PCI to Lcx. His Wells score for DVT and PTE put him into a moderate risk category. Ambulatory sats remained at 96% with HR 50-60s when at rest and while ambulating in the hallway 1) Atypical Chest pain -respirophasic component and R LE calf pain initially concerning for DVT and/or PE but also with generalized pain, not tachycardic and no issues with oxygenation -also with musculoskeletal component -by Wells criteria for DVT/PE he falls into moderate risk and would be better risk stratified with aD-dimer which will check today -EKG without acute changes and pain without relation to exertion makes this low likelihood to be cardiac in nature 2) ASCVD (s/p inf STEMI) -continue Metoprolol, Lisinopril, Aspirin, simvastatin -cont Plavix (for h/o stroke) -will order direct LDL F/u with PCP in 3-4 weeks F/u with cardiology in 6 months Labwork as above This patient was seen and discussed with Dr. Arroyo, cardiology attending. Addendum: D-dimer negative making PE very unlikely. Direct LDL 52 documented in this encounter Plan of Treatment Upcoming Encounters Date Type Specialty Care Team Description 09/04/2022 Ancillary Procedure Radiology Aissatou Briggs Canc eled (D-SCHED ERROR FORENSIC MATERIALS ENGINEER / CORRECTION ) [address] [place] [address] (Wo rk) documented as of this encounter Procedures Procedure Name Priority Date/Time Associated Diagnosis Comme nts D-DIMER, QUANTITATIVE STAT 07/18/2013 5:02 PM Chest pain wi th Results for this EDT painful respiration procedur e are in the results section. LDL CHOLESTEROL, Routine 07/18/2013 5:02 PM CAD (coronary rebecca ry Results for this DIRECT EDT disease) procedure are i n the results section. EKG 12-LEAD Routine 07/18/2013 3:27 PM CAD (coronary artery R esults for this EDT disease) procedure are i n the results section. documented in this encounter Results LDL Cholesterol, Direct (07/18/2013 5:02 PM EDT) P athologist Signature LDL Chol 52 <=99 mg/dL CERNER Direct [facility] Comment: The National Cholesterol Education Progr am (NCEP) has set the following guidelines for LDL Cholesterol: Reference range: ?? Optimal: ?<100 mg/dL ?? Near Optimal/Above Optimal: ?? 100-1 29 mg/dL ?? Borderline high: ?130-159 mg/dL ?? High: ? 160-189 mg/dL ?? Very high: ?>qg=318 mg/dL LOU 2001: 285(78):8336-5535 Specimen Anatomical Collection Method Collection Time Receive d Time (Source) Location / / Volume Laterality Blood specimen 07/18/2013 5:02 PM 013 5:12 (specimen) EDT PM EDT Resulting Agency Comment Spec In Lab Jonn Arroyo MD CHEMISTRY ORDERABLES Performing Organization Address City/[facility] [place] [address] [facility] D-Dimer, Quantitative (07/18/2013 5:02 PM EDT) athologist Signature D-Dimer, Quant 278 0 - 500 CERNER FEU ng/ml [facility] Comment: The D-Dimer assay is used to aid in the diagnosis of deep vein thrombosis and pulmonary embolism. A normal D-Dimer res ult (less than 500 FEU ng/ml) has a negative predictive value of approximate ly 95% for the exclusion of acute PE and DVT when there is low to moderate pr etest probability. Specimen Anatomical Collection Method Collection Time Receive d Time (Source) Location / / Volume Laterality Blood specimen 07/18/2013 5:02 PM 013 5:12 (specimen) EDT PM EDT Resulting Agency Comment Spec In Lab Jonn Arroyo MD HEMATOLOGY ORDERABLES Performing Organization Address [facility]/[place] [address] [employer]ENNIUM EKG 12 Lead (07/18/2013 3:27 PM EDT) Component Value Ref Range Test Analysis Performed Pathologis t Method Time At Signature Ventricular rate 57 BPM MUSE SYSTEM Atrial Rate 57 BPM MUSE SYSTEM P-R Interval 146 ms MUSE SYSTEM QRS Duration 80 ms MUSE SYSTEM Q-T Interval 452 ms MUSE SYSTEM QTC Calculated 439 ms MUSE SYSTEM (Bezet) Calculated P [place] 59 degrees MUSE SYSTEM Calculated R [place] 26 degrees MUSE SYSTEM Calculated T [place] -29 degrees MUSE SYSTEM INTERPRETATION Sinus bradycardia MUSE SY STEM Nonspecific T wave abnormality Inferior leads When compared with ECG of 17-AUG-2012 15:36, No significant change was found Confirmed by MD MILDRED, JONN ([id number]) on 07/19/2013 2:51:59 PM Specimen Anatomical Collection Method Collection Time Receive d Time (Source) Location / / Volume Laterality 07/18/2013 3:27 PM 3 2:51 EDT PM EDT Jonn Arroyo MD ECG ORDERABLES Performing Organization Address City/State/ZIP Code Phon e Number MUSE SYSTEM documented in this encounter Visit Diagnoses Diagnosis CAD (coronary artery disease) - Primary Coronary atherosclerosis of unspecified type of vessel, [place] or graft Chest pain with painful respiration Painful respiration Pain disorder Generalized pain documented in this encounter Care Teams Agricultural Equipment Mechanic Relationship Specialty Start Date End Date Jairon Gomez MD PCP - General 09/23/10 07/28/[address] [place] [address] documented as of this encounter
--- OUTSIDE RECORDS SUMMARY | 2022-08-15 01:36 | XMS_ITS | Encounter Summary ---
:1955 Author Organization [facility] [place] [address] Care Team Providers Name Role Phone Jairon Gomez MD Primary Care Provider [phone] Reason for Visit Reason Onset Date Comments Medication Refill 11/23/2012 Encounter Details Date Type Department Care Team Description 11/23/2012 Telephone Neurology at [facility] Gusatvo Hayes, Medication Refill [facility] [place] [address] [facility] [phone] NEUROLOGY DEPT. [place], [place] [address] (Wo rk) Social History Tobacco Use Types Packs/Day Years Used Date Former Smoker Cigarettes Quit: 05/14/20 08 Smokeless Tobacco: Never Used Alcohol Use Standard Drinks/Week Comments No 0 (1 standard drink = 0.6 oz pure alcoho l) Sex Assigned at Date Recorded Not on file documented as of this encounter Miscellaneous Notes Telephone Encounter - Ashley Berry - 11/23/2012 4:00 PM EST Patient has called back and was notified that he has 3 refills left on his vicodin.He will follow upwith the pharmacy to get his prescription. Telephone Encounter - Eunice Macdonald LPN - 11/23/2012 11:46 AM EST Pharmacy reports patient has 3 refills left on Vicodin, but it is 4 days too soon to fill. Left message for patient to call this office. Telephone Encounter - Tonie Flores - 11/23/2012 10:50 AM EST Name of Med: Vicodin Strength of Pills: 5-500 mg Dosing Directions: 1 tab 2 times daily 30 or 90 Day: 30 [facility] [address] Last Appointment: 09/05/2012 Next Appointment: 03/06/2013 documented in this encounter Plan of Treatment Upcoming Encounters Date Type Specialty Care Team Description 09/04/2022 Ancillary Procedure Radiology Aissatou Briggs, Berto velázquez (D-SCHED ERROR ENTRY LEVEL MARKETING ASSISTANT / CORRECTION ) [address] [place] [address] (Wo rk) documented as of this encounter Visit Diagnoses Not on filedocumented in this encounter Care Teams Banking Officer Relationship Specialty Start Date End Date Jairon Gomez MD PCP - General 09/23/10 07/28/[address] [place] [address] documented as of this encounter
--- OUTSIDE RECORDS SUMMARY | 2022-08-15 01:36 | XMS_ITS | Encounter Summary ---
:1955 Author Organization [place] [address] Care Team Providers Name Role Phone Jairon Gomez MD Primary Care Provider [phone] Encounter Details Date Type Department Care Team Description 07/26/2013 Telephone Cardiology at [facility] Edd Sheth MD [facility] [place] [address] CARDIOLOGY DEPT [phone] [place], [place] [address] (Wo rk) Social History Tobacco Use Types Packs/Day Years Used Date Former Smoker Cigarettes Quit: 05/14/20 08 Smokeless Tobacco: Never Used Alcohol Use Standard Drinks/Week Comments No 0 (1 standard drink = 0.6 oz pure alcoho l) Sex Assigned at Date Recorded Not on file documented as of this encounter Miscellaneous Notes Telephone Encounter - Edd Sheth MD - 07/26/2013 2:05 PM EDT Attempted to call patient regarding negative labwork (negative d-dimer), but pt not available and answering machine not available. documented in this encounter Plan of Treatment Upcoming Encounters Date Type Specialty Care Team Description 09/04/2022 Ancillary Procedure Radiology Aissatou Briggs, Berto velázquez (D-SCHED ERROR BED AND BREAKFAST OPERATOR / CORRECTION ) [address] [place], [place] [id number] (Wo rk) documented as of this encounter Visit Diagnoses Not on filedocumented in this encounter Care Teams Chief Clinical Officer Relationship Specialty Start Date End Date Jairon Gomez MD PCP - General 09/23/10 07/28/[address] [place] [address] documented as of this encounter
--- OUTSIDE RECORDS SUMMARY | 2022-08-15 01:36 | XMS_ITS | Encounter Summary ---
:1955 Author Organization [facility] Address [facility] [place] [address] Care Team Providers Name Role Phone Jairon Gomez MD Primary Care Provider [phone] Encounter Details Date Type Department Care Team Description 02/21/2013 Follow-Up Cardiology at [facility] Marciano Sandoval MD STEMI (ST elevation [facility] earlene cardial infarction) Drive (Primary Dx) [place] [address] CARDIOLOGY DEPT. [phone] [place] [address] (Wo rk) Social History Tobacco Use Types Packs/Day Years Used Date Former Smoker Cigarettes Quit: 05/14/20 08 Smokeless Tobacco: Never Used Alcohol Use Standard Drinks/Week Comments No 0 (1 standard drink = 0.6 oz pure alcoho l) Sex Assigned at Date Recorded Not on file documented as of this encounter Last Filed Vital Signs Vital Sign Reading Time Taken Comments Blood Pressure 118/70 02/21/2013 1:11 PM EDT Pulse 60 02/21/2013 1:11 PM EDT Temperature - - Respiratory Rate - - Oxygen Saturation 98% 02/21/2013 1:11 PM EDT Inhaled Oxygen Concentration - - Weight 68.9 kg (152 lb) 02/21/2013 1:11 PM EDT Height 162.6 cm (5' 4) 02/21/2013 1:11 PM EDT Body Mass Index 26.09 02/21/2013 1:11 PM EDT documented in this encounter Progress Notes Mir Holland MD - 02/21/2013 4:07 PM EDT I was the attending physician supervising the resident in the above care. For the purposes of billing, the resident provided the care. Marcaino Sandoval MD - 02/21/2013 12:21 PM EDT Cardiology Clinic Fellow Note Subjective: Patient ID: Miguel Pérez is a 57 y.o. male who comes for a follow-up appointment Problem List -CAD, STEMI 04/15/2011, 100% distal Lcx occlusion, s/p JUAN stent placement) -Chest pain atypical -TBI -GERD -Memory Loss -CVA HPI 57yo male with PMHX significant for CAD (s/p inferior STEMI 04/15/2011, 100% distal LCx occlusion, EF=52%), history of seizures, recurrent admission on 04/29/2011 for chest pain who comes for a follow-up appointment. States that his chest pain usually occurs at rest, reproducible with palpation, occurs frequently. Describes as sharp sensation, with radiation to his arm, sensation pins/needles. No correlation with activities, occurs at rest as well as with activities. Patient underwent a nuclear stress test over the summer, showed inferolateral wall scar with small area of brittnee-infarct ischemia. At that time, our decision (swapna and Dr. Burden) was made to treat conservatively, given small area andissues with medications compliiance. Patient has been on Plavix and ASA for stroke, needs to continue on ASA for CAD Since our last visit, Mr. Pérez is off several medications, unable to explain when and who took him off. Also, unclear regarding his PCP follow-up if any. Review of Systems LY=950/70, HR=60 Objective: Physical Exam Constitutional: He appears well-developed and well-nourished. HENT: Head: Normocephalic and atraumatic. Eyes: Conjunctivae are normal. Pupils are equal, round, and reactive to light. Neck: Normal range of motion. Neck supple. No JVD present. Cardiovascular: Normal rate and regular rhythm. Exam reveals no friction rub. Pulmonary/Chest: Effort normal. No respiratory distress. He has no rales. Abdominal: Soft. Bowel sounds are normal. There is no rebound. Musculoskeletal: Normal range of motion. He exhibits no edema. Nuclear MPI: Inferolateral wall scar, extending from the base to the apex with a small area of mild brittnee-infarct ischemia as above. Associated mild lateral wall hypokinesis and mild hypokinesis at the base of the inferior wall, estimated LVEF of 46%. Assessment and Plan: 57 yo male with PMHx significant for STEMI in 04/2011 (100% distal LCx occlusion, EF=52%), epilepsy, memory loss, TBI, depression, GERD, allergic rhinitis, left- sided weakness, testicular pain who presents for a regular follow-up appointment. Patient states that he is feeling much better, able to walk more and became much more physically active. Able to walk 1 mile 2 times a day with a cane. States that these atypical symptoms are improving, still has issues with (TBI, memory loss). Patient continues to admit to these intermittent, non-exertional chest pains. These chest pains appear to be atypical in nature and likely musculoskeletal. We have investigated these symptoms in the past, patient underwent a nuclear stress test, which showed a inferolateral scar with small area of periinfarct ischemia. We (Dr. Burden and I) decided against any further invasive procedures. Today, patient is back on BB and ASA and Plavix. At this point, there is no need to further investigate these brief episodes, likely will lead to further testing without interventions. CAD: -currently on metorpolol and ACEI -Continue with Lisinopril, ASA -Plavix for ischemic stroke Thank your for allowing us to participate in the care of this patient. Please call with questions documented in this encounter Plan of Treatment Upcoming Encounters Date Type Specialty Care Team Description 09/04/2022 Ancillary Procedure Radiology Aissatou Briggs, Berto velázquez (D-SCHED ERROR FLY MAKER / CORRECTION ) [address] [place] [address] (Wo rk) documented as of this encounter Visit Diagnoses Diagnosis STEMI (ST elevation myocardial infarctio n) - Primary Acute myocardial infarction, unspecified site, episode of care unspecified documented in this encounter Care Teams Babbitter Relationship Specialty Start Date End Date Jairon Gomez MD PCP - General 09/23/10 07/28/[address] [place] [address] documented as of this encounter
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
--- OUTSIDE RECORDS SUMMARY | 2022-08-15 01:37 | XMS_ITS | Encounter Summary ---
:1955 Author Organization [facility] Address [facility] [place] [address] Care Team Providers Name Role Phone Jairon Gomez MD Primary Care Provider [phone] Encounter Details Date Type Department Care Team Description 01/22/2012 Follow-Up Cardiology at [facility] [place] Marciano Sandoval MD Chest pain (Primary Dx) [facility] [place] [address] CARDIOLOGY DEPT. [phone] [place], [place] [address] (Wo rk) Social History Tobacco [...] Sign Reading Time Taken Comments Blood Pressure 138/84 01/22/2012 4:21 PM EDT Pulse 60 01/22/2012 4:21 PM EDT Temperature - - Respiratory Rate - - Oxygen Saturation 97% 01/22/2012 4:21 PM EDT Inhaled Oxygen Concentration - - Weight 68.9 kg (152 lb) 01/22/2012 4:21 PM EDT Height 162.6 cm (5' 4) 01/22/2012 4:21 PM EDT Body Mass Index 26.09 01/22/2012 4:21 PM EDT documented in this encounter Progress Notes Amado Christianson MD - 02/22/2012 1:10 PM EDT Staff Addendum: Although I provided general supervision of the fellow during this patient encounter,I did not directly provide care and neither interviewed nor examined the patient. Amado Christianson MD - 02/22/2012 1:10 PM EDT Staff Addendum: Although I provided general supervision of the fellow during this patient encounter,I did not directly provide care and neither interviewed nor examined the patient. Amado Christianson MD - 02/22/2012 1:09 PM EDT Staff Addendum: Although I provided general supervision of the fellow during this patient encounter,I did not directly provide care and neither interviewed nor examined the patient. Marciano Sandoval MD - 01/22/2012 4:54 PM EDT Personal Lines Sales Rep Clinic Note Subjective: Patient ID: Miguel Pérez is a 56 y.o. male who comes for follow-up appointment Problem List -CAD, STEMI 04/15/2011 -Chest pain atypical -TBI -GERD -Memory Loss -CVA HPI 56yo male with PMHX significant for CAD (s/p inferior STEMI 04/15/2011, 100% distal LCx occlusion, EF=52%), history of seizures, recurrent admission on 04/29/2011 for chest pain who comes for a follow-up appointment. Patient is back in clinic today with his magento web developer (who assisted with transportation).Patient has a history of TBI and unable to give clear history, but continues to state that he has chest discomfort. States that it appears to get worse with exertion, but atypical in nature. Describes pain as sharp, non-radiating but sometimes radiating, worse with touch, constant in nature. States that usually comes on when Mr. Pérez attempts to do physical activity. Patient is seen in neurology for seizures and ?CVA and chronic pain. Review of Systems Constitutional: Positive for chills. Respiratory: Positive for cough and shortness of breath. Negative for chest tightness. Cardiovascular: Positive for chest pain (c/o muscle discomfort, ) and palpitations. Negative for legswelling. Gastrointestinal: Negative for nausea, vomiting, abdominal pain and diarrhea. Genitourinary: Negative for dysuria. Musculoskeletal: Positive for myalgias. Neurological: Negative for dizziness and syncope. BP138/84, P=60, SpO2=97% Objective Physical Exam HENT: Head: Normocephalic and atraumatic. Eyes: EOM are normal. Pupils are equal, round, and reactive to light. Neck: Neck supple. No JVD present. Cardiovascular: Normal rate, regular rhythm and normal heart sounds. Pulmonary/Chest: No respiratory distress. He has no rales. He exhibits tenderness. Abdominal: He exhibits no distension. He has no rebound. Musculoskeletal: He exhibits no edema. Neurological: He is alert. A cranial nerve deficit is present. Coordination abnormal. ECG: NSR, Q waves in lateral leads, unchanged from previous ECG Assessment and Plan: 56 yo male with PMHx significant for STEMI in 04/2011 (100% distal LCx occlusion, EF=52%), epilepsy, memory loss, TBI, depression, GERD, allergic rhinitis, left- sided weakness, testicular pain who presents for a regular follow-up appointment. Patient continues to describe very atypical symptoms and his underlying medical issues (TBI, memory loss) make it very difficult to distinguish whether his chest discomfort is cardiac in nature. It is reproducible in nature when palpated and it is also constant. At the same time, patient does have a co nfirmed CAD, had a STEMI 10 months ago. In addition, it is possible that Mr. Pérez is not 100% compliant with his medications. Although, he states that he is hasn't skipped his meds, it remains concerning. Therefore, in order to clarify these symptoms we will consider non-invasive stress test (nuclear stress test) sometime next week. From cardiovascular standpoint, we recommend to continue with current medication treatment, including ASA 81mg, Zocor 40mg, Metoprolol succinate 25 daily, and Lisinopril 2.5mg, and Plavix 75mg for at least 4 weeks, optimally for 1 year (might be recommended in light of recent CVA?). We again discussedthe importance of continue to take medications as prescribed. Follow-up appointment in 2-[address] Sandoval, unless nuclear stress is abnormal. We will callMr. Pérez with results (phone number [phone]). documented in this encounter Plan of Treatment Upcoming Encounters Date Type Specialty Care Team Description 09/04/2022 Ancillary Procedure Radiology Aissatou Briggs, Canc eber (D-SCHED ERROR SERVICE DESK AGENT / CORRECTION ) [address] [place] [address] (Wo rk) documented as of this encounter Procedures Procedure Name Priority Date/Time Associated Diagnosis Comme nts EKG 12-LEAD Routine 01/22/2012 4:33 PM Results f or this EDT procedure are i n the results section . EKG 12-LEAD Routine 01/22/2012 2:37 PM Chest pain Results f or this EDT procedure are i n the results section . documented in this encounter Results EKG 12-LEAD (01/22/2012 4:33 PM EDT) Component Value Ref Range Test Analysis Performed Pathologis t Method Time At Signature Ventricular rate 64 BPM MUSE SYSTEM Atrial Rate 64 BPM MUSE SYSTEM P-R Interval 136 ms MUSE SYSTEM QRS Duration 78 ms MUSE SYSTEM Q-T Interval 450 ms MUSE SYSTEM QTC Calculated 464 ms MUSE SYSTEM (Bezet) Calculated P [place] 61 degrees MUSE SYSTEM Calculated R [place] 27 degrees MUSE SYSTEM Calculated T [place] -21 degrees MUSE SYSTEM INTERPRETATION Normal sinus rhythm MUSE SYSTEM Possible Lateral infarct , age undetermined Inferior infarct , age undetermined Abnormal ECG When compared with ECG of 22-JAN-2012 14:37, Prior tracing on this date m ay not be from the same patient. ??No comparison made. Confirmed by MD ALY, DISHA ([id number]) on 01/25/2012 2:23:2 0 PM Specimen Anatomical Collection Method Collection Time Receive d Time (Source) Location / / Volume Laterality 01/22/2012 4:33 PM 2 2:23 EDT PM EDT Unknown ECG ORDERABLES Performing Organization Address City/State/ZIP Code Phon e Number MUSE SYSTEM EKG 12 Lead (01/22/2012 2:37 PM EDT) Component Value Ref Range Test Analysis Performed Pathologis t Method Time At Signature Ventricular rate 66 BPM MUSE SYSTEM Atrial Rate 66 BPM MUSE SYSTEM P-R Interval 180 ms MUSE SYSTEM QRS Duration 76 ms MUSE SYSTEM Q-T Interval 418 ms MUSE SYSTEM QTC Calculated 438 ms MUSE SYSTEM (Bezet) Calculated P [place] 36 degrees MUSE SYSTEM Calculated R [place] 28 degrees MUSE SYSTEM Calculated T [place] 25 degrees MUSE SYSTEM INTERPRETATION Sinus rhythm with Premature atrial complexes MUSE SYSTEM T wave abnormality Inferior leads Borderline When compared with ECG of 03-SEP-2011 13:20, Premature atrial complexes are now Present T wave inversion no longer evident in Inferior leads T wave inversion no longer evident in Lateral leads Confirmed by MD ALY, DISHA (50) on 01/25/2012 2:09:3 0 PM Specimen Anatomical Collection Method Collection Time Receive d Time (Source) Location / / Volume Laterality 01/22/2012 2:37 PM 2 2:09 EDT PM EDT Amado Christianson MD ECG ORDERABLES Performing Organization Address City/State/ZIP Code Phon e Number MUSE SYSTEM documented in this encounter Visit Diagnoses Diagnosis Chest pain - Primary Chest pain, unspecified documented in this encounter Care Teams Drying Tumbler Operator Relationship Specialty Start Date End Date Jairon Gomez MD PCP - General 09/23/10 07/28/[address] [place] [address] documented as of this encounter
--- OUTSIDE RECORDS SUMMARY | 2022-08-15 01:37 | XMS_ITS | Encounter Summary ---
:1955 Author [address] [facility] [place] [address] Care Team Providers Name Role Phone Jairon Gomez MD Primary Care Provider [phone] Reason for Visit Reason Onset Date Comments Medication Problem 04/28/2011 needs prior auth for Lipitor Encounter Details Date Type Department Care Team Description 04/28/2011 Refill Cardiology at [facility] Armand Burden MD Medication Problem [facility] (ut eds prior auth for Drive [address] [place]) [place] [address] CARDIOLOGY DEPT [phone] [place], [place] [address] (Wo rk) Social History Tobacco Use Types Packs/Day Years Used Date Never Assessed Sex Assigned at Date Recorded Not on file documented as of this encounter Miscellaneous Notes Telephone Encounter - Luisa Noble RN - 05/06/2011 9:47 AM EDT Spoke with pt's significant other as pt not home, regarding pt's simvastatin 40 mg as prescribed when pt was discharged . Dr. Burden wanted patient to continue this. She will give this information to patient and he will call if has any questions. Telephone Encounter - Luisa Noble RN - 04/28/2011 1:34 PM EDT Spoke with Gifty,Visiting Nurse from [facility]. Pt's insurance will not cover Lipitor. It requires a prior auth. Pt does have Simvastatin 40 mg at home. Will forward note to Dr. Burden for his review and advisement. documented in this encounter Plan of Treatment Upcoming Encounters Date Type Specialty Care Team Description 09/04/2022 Ancillary Procedure Radiology Aissatou Briggs, Canmanoj eled (D-SCHED ERROR RATE SUPERVISOR / CORRECTION ) [address] [place], [place] [id number] (Wo rk) documented as of this encounter Visit Diagnoses Not on filedocumented in this encounter Care Teams Toolmaker Grade Three Relationship Specialty Start Date End Date Jairon Gomez MD PCP - General 09/23/10 07/28/[address] [place] [address] documented as of this encounter
--- OUTSIDE RECORDS SUMMARY | 2022-08-15 01:37 | XMS_ITS | Encounter Summary ---
:1955 Author Organization [facility] [address] Care Team Providers Name Role Phone Jairon Gomez MD Primary Care Provider [phone] Encounter Details Date Type Department Care Team Description 06/29/2011 Abstract Neurology at [facility] [place] Gustavo Hayes MD [facility] [place] [address] NEUROLOGY DEPT. [phone] [place], [place] [address] (Wo rk) Social History Tobacco Use Types Packs/Day Years Used Date Former Smoker Cigarettes Quit: 05/14/20 08 Alcohol Use Standard Drinks/Week Comments Not Asked 0 (1 standard drink = 0.6 oz pure alcoho l) Sex Assigned at Date Recorded Not on file documented as of this encounter Plan of Treatment Upcoming Encounters Date Type Specialty Care Team Description 09/04/2022 Ancillary Procedure Radiology Aissatou Briggs Canc eled (D-SCHED ERROR TESTING SPECIALIST / CORRECTION ) [address] [place], [place] [id number] (Wo rk) documented as of this encounter Visit Diagnoses Not on filedocumented in this encounter Care Teams Leather Sprayer Relationship Specialty Start Date End Date Jairon Gomez MD PCP - General 09/23/10 07/28/16 [address] [place], [place] [id number] documented as of this encounter
--- OUTSIDE RECORDS SUMMARY | 2022-08-15 01:37 | XMS_ITS | Encounter Summary ---
:1955 Author Organization [facility] [place] [address] Care Team Providers Name Role Phone Jairon Gomez MD Primary Care Provider [phone] Reason for Visit Reason Onset Date Comments Medication Refill 05/06/2012 Encounter Details Date Type Department Care Team Description 05/06/2012 Refill Neurology at [facility] [place] Gustavo Hayes MD [facility] [place] [address] NEUROLOGY DEPT. [phone] [place], [place] [address] (Wo rk) Social History Tobacco Use Types Packs/Day Years Used Date Former Smoker Cigarettes Quit: 05/14/20 08 Smokeless Tobacco: Never Used Alcohol Use Standard Drinks/Week Comments No 0 (1 standard drink = 0.6 oz pure alcoho l) Sex Assigned at Date Recorded Not on file documented as of this encounter Miscellaneous Notes Telephone Encounter - Ashley Berry - 05/06/2012 4:13 PM EDT Name of Med: hydroCODone-acetaminophen (VICODIN) Strength of Pills: 5-500 mg Tab Dosing Directions: Take 1 tablet by mouth 2 times daily for 30 days Pharmacy: [place], [place] [phone] documented in this encounter Plan of Treatment Upcoming Encounters Date Type Specialty Care Team Description 09/04/2022 Ancillary Procedure Radiology ChesterAissatou Canc eled (D-SCHED ERROR PRESS OPERATOR HELPER / CORRECTION ) [address] [place], [place] [id number] (Wo rk) documented as of this encounter Visit Diagnoses Not on filedocumented in this encounter Care Teams Rn Clinical Review Relationship Specialty Start Date End Date Jairon Gomez MD PCP - General 09/23/10 07/28/[address] [place], [place] [id number] documented as of this encounter
--- OUTSIDE RECORDS SUMMARY | 2022-08-15 01:37 | XMS_ITS | Encounter Summary ---
:1955 Author Organization [facility] Address [facility] [address] [place] [id number] Care Team Providers Name Role Phone Jairon Gomez MD Primary Care Provider [phone] Encounter Details Date Type Department Care Team Description 09/05/2012 Follow-Up Neurology at [facility] [place] Gustavo Hayes Localization-related epileps y (Primary Dx); [facility] MD Marielle Memory loss; Drive [facility] Stroke; [place] [address] Central pain syndrome [phone] NEUROLOGY DEPT. [place], [place] [address] (Wo rk) Social History Tobacco [...] Sign Reading Time Taken Comments Blood Pressure 125/70 09/05/2012 3:33 PM EST Pulse 66 09/05/2012 3:33 PM EST Temperature - - Respiratory Rate - - Oxygen Saturation - - Inhaled Oxygen Concentration - - Weight 65.4 kg (144 lb 3.2 oz) 09/05/2012 3:33 PM EST Height 162.6 cm (5' 4) 09/05/2012 3:33 PM EST reported Body Mass Index 24.75 09/05/2012 3:33 PM EST documented in this encounter Progress Notes Gustavo Hayes MD - 09/05/2012 4:09 PM EST [facility] [place] [address] PCP - JAIRON GOMEZ MD Re - [...] lumbar stenosis, although uncertain Refractory depression HTN PA April 2011 with stent placement Stroke 2010 with left hemiparesis Social Hx: Lives with girlfriend x 32 years, lives in [facility], not employed, drives short distances only with other people, no tob, no etoh Family Hx: [place] Interim History Seizures - No seizures since last time. Denies any side effects of medications. Stroke - Reports improved movement in the left side following rehab. Continues to take ASA and plavix. Pain - Pain is covering the left arm and leg but not face and is 8/10 in severity. Patient taking neurontin 600 TID with help. Also takes 1 Vicodin twice daily. Memory - continues to be bad. Due to DEDE following TBI. Current Medications Current outpatient prescriptions ordered prior to encounter Medication Sig Dispense Refill ??? metoprolol succinate (TOPROL-XL) 25 mg 24 hr tablet Take 1 tablet by mouth daily. 30 tablet 12 ??? hydroCODone-acetaminophen (VICODIN) 5-500 mg per tablet Take 1 tablet by mouth 2 times daily as needed. For pain 30 tablet 3 ??? ibuprofen (ADVIL;MOTRIN) 200 mg tablet Take 200 mg by mouth every 6 hours as needed. ??? traZODone (DESYREL) 100 mg tablet Take 200 mg by mouth nightly. ??? Levalbuterol Tartrate (XOPENEX HFA) 45 mcg/Actuation inhaler Inhale 1-2 puffs into the lungs every 4 hours as needed. ??? niacin (NIASPAN ER) 500 mg ER tablet Take 500 mg by mouth nightly. ??? aspirin 81 mg EC tablet Take 81 mg by mouth every evening. ??? lisinopril (PRINIVIL;ZESTRIL) 5 mg tablet Take 5 mg by mouth every morning. ??? phenytoin (DILANTIN KAPSEAL) 100 mg ER capsule Take 1 capsule by mouth every morning, and 2 capsules every evening. Brand name only. ??? fluticasone (FLOVENT) 110 mcg/Actuation inhaler Inhale 1 puff into the lungs 2 times daily. 1 Inhaler 3 ??? hydrOXYzine (ATARAX) 25 mg tablet Take 1 tablet by mouth every 6 hours as needed. 30 tablet 3 ??? nabumetone (RELAFEN) 500 mg tablet Take 1 tablet by mouth 2 times daily. 60 tablet 3 ??? omeprazole (PRILOSEC) 20 mg capsule Take 1 capsule by mouth daily. 30 capsule 3 ??? FLUoxetine (PROZAC) 20 mg capsule Take 20 mg by mouth daily. ??? ibuprofen (ADVIL;MOTRIN) 400 mg tablet Take 1 tablet by mouth every 4 hours as needed. ??? gabapentin (NEURONTIN) 300 mg capsule Take 2 capsules by mouth 3 times daily for 30 days. 180 capsule 12 ??? topiramate (TOPAMAX) 100 mg tablet Take 100 mg by mouth 2 times daily. ??? FLUoxetine (PROZAC) 10 mg tablet Take 10 tablets by mouth daily. ??? docusate sodium (COLACE) 100 mg capsule Take 100 mg by mouth daily as needed. ??? topiramate (TOPAMAX) 25 mg tablet Take 2 tablets by mouth. Please follow instructions below. 90 tablet 3 ??? citalopram (CELEXA) 20 mg tablet Take 3 tablets by mouth daily. 30 tablet 3 ??? cyproheptadine (PERIACTIN) 4 mg tablet Take 1 tablet by mouth daily. 90 tablet 1 Seizure Control: QEpilepsy 09/05/2012 Last seizure was: Within past year Number of seizures in past month: 0 Were seizures disabling? No Social Factors: Social Factors 09/05/2012 Employment status: No Currently driving: Yes Review of Systems: Review of systems 09/05/2012 1. double vision Never 2. headache Sometimes 3. rash Never 4. unsteadiness Never 5. upset stomach, nausea, vomiting Never 6. troubles with gums or teeth Never 7. weight loss or gain Never 8. tremors or shaking Sometimes 9. restlessness Never 10. dizziness Sometimes 11. tiredness/sleepiness Often 12. trouble sleeping Never 13. difficulties concentrating Never 14. feelings of aggression Never 15. depression Never 16. thoughts about ending your life Never 17. palpitations or chest pains Sometimes 18. bladder problems Sometimes 19. 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 Memory loss -Reviewed memory strategies Follow up in 1 year. documented in this encounter Plan of Treatment Upcoming Encounters Date Type Specialty Care Team Description 09/04/2022 Ancillary Procedure Radiology Aissatou Briggs Canc eled (D-SCHED ERROR FORK REPAIRER / CORRECTION ) [address] [place] [address] (Wo rk) documented as of this encounter Visit Diagnoses Diagnosis Localization-related epilepsy - Primary Localization-related (focal) (partial) e pilepsy and epileptic syndromes with simple partial seizures, without mention of int ractable epilepsy Memory loss Stroke Unspecified cerebral artery occlusion wi th cerebral infarction Central pain syndrome documented in this encounter Care Teams Heeler Relationship Specialty Start Date End Date Jairon Gomez MD PCP - General 09/23/10 07/28/[address] [place] [address] documented as of this encounter
--- OUTSIDE RECORDS SUMMARY | 2022-08-15 01:37 | XMS_ITS | Encounter Summary ---
:1955 Author Organization [facility] [place] [address] Care Team Providers Name Role Phone Jairon Gomez MD Primary Care Provider [phone] Encounter Details Date Type Department Care Team Description 04/22/2011 Orders Only Hospitalist Renae Sherman MD [facility] [place] [address] GENERAL INTERNAL [phone] MEDICINE [place] [id number] Social History Tobacco Use Types Packs/Day Years Used Date Never Assessed Sex Assigned at Date Recorded Not on file documented as of this encounter Plan of Treatment Upcoming Encounters Date Type Specialty Care Team Description 09/04/2022 Ancillary Procedure Radiology Aissatou Briggs, Berto velázquez (D-SCHED ERROR DYE TANK TENDER / CORRECTION ) [address] [place], [place] [address] (Wo rk) documented as of this encounter Visit Diagnoses Not on filedocumented in this encounter Care Teams Electric Serviceman Relationship Specialty Start Date End Date Jairon Gomez MD PCP - General 09/23/10 07/28/16 [address] [place], [place] [id number] documented as of this encounter
--- OUTSIDE RECORDS SUMMARY | 2022-08-15 01:37 | XMS_ITS | Encounter Summary ---
:1955 Author Organization [facility] [address] Care Team Providers Name Role Phone Jairon Gomez MD Primary Care Provider [phone] Encounter Details Date Type Department Care Team Description 05/13/2011 Abstract Urology at [facility] Constance Deleon, [place] [address] Social History Tobacco Use Types Packs/Day Years Used Date Never Assessed Sex Assigned at Date Recorded Not on file documented as of this encounter Plan of Treatment Upcoming Encounters Date Type Specialty Care Team Description 09/04/2022 Ancillary Procedure Radiology Aissatou Briggs, Berto velázquez (D-SCHED ERROR DISHWASHING MACHINE OPERATOR / CORRECTION ) [address] [place], [place] [id number] (Wo rk) documented as of this encounter Visit Diagnoses Not on filedocumented in this encounter Care Teams Washer And Crusher Tender Relationship Specialty Start Date End Date Jairon Gomez MD PCP - General 09/23/10 07/28/16 [address] [place], [place] [id number] documented as of this encounter
--- OUTSIDE RECORDS SUMMARY | 2022-08-15 01:37 | XMS_ITS | Encounter Summary ---
:1955 Author Organization [facility] Address [facility] [place] [address] Care Team Providers Name Role Phone Jairon Gomez MD Primary Care Provider [phone] Encounter Details Date Type Department Care Team Description 08/17/2012 Follow-Up Cardiology at [facility] [place] Marciano Sandoval MD Chest pain (Primary Dx) [facility] [place] [address] CARDIOLOGY DEPT. [phone] [place], [place] [address] (Wo rk) Social History Tobacco [...] Sign Reading Time Taken Comments Blood Pressure 118/80 08/17/2012 2:46 PM EDT Pulse 61 08/17/2012 2:46 PM EDT Temperature - - Respiratory Rate - - Oxygen Saturation 98% 08/17/2012 2:46 PM EDT Inhaled Oxygen Concentration - - Weight 65.8 kg (145 lb) 08/17/2012 2:46 PM EDT Height 163.8 cm (5' 4.5) 08/17/2012 2:46 PM EDT Body Mass Index 24.5 08/17/2012 2:46 PM EDT documented in this encounter Progress Notes Jonn Arroyo MD - 08/22/2012 11:44 AM EDT I was the attending physician supervising the resident in the above care. For the purposes of billing, the resident provided the care. Marciano Sandoval MD - 08/17/2012 12:39 PM EDT Implementation Manager Clinic Note Subjective: Patient ID: Miguel Pérez is a 57 y.o. male who comes for follow-up appointment Problem List -CAD, STEMI 04/15/2011, 100% distal Lcx occlusion, s/p JUAN stent placement) -Chest pain atypical -TBI -GERD -Memory Loss -CVA HPI 57yo male with PMHX significant for CAD (s/p inferior STEMI 04/15/2011, 100% distal LCx occlusion, EF=52%), history of seizures, recurrent admission on 04/29/2011 for chest pain who comes for a follow-upappointment. States that his chest pain usually occurs at rest, reproducible with palpation, occurs f requently. Describes as sharp sensation, with radiation to his arm, sensation pins/needles. No correlation with activities, occurs at rest as well as with activities. Patient underwent a nuclear stresstest over the summer, showed inferolateral wall scar with small area of brittnee-infarct ischemia. At that time, decision was made to treat conservatively, given small area and issues with medications compliiance. Since our last visit, Mr. Pérez is off several medications, unable to explain when and who took him off. Also, unclear regarding his PCP follow-up if any. Review of Systems Constitutional: Positive for chills. Respiratory: Positive for cough and shortness of breath. Negative for chest tightness. Cardiovascular: Positive for chest pain (c/o muscle discomfort, ) and palpitations. Negative for legswelling. Gastrointestinal: Negative for nausea, vomiting, abdominal pain and diarrhea. Genitourinary: Negative for dysuria. Musculoskeletal: Positive for myalgias. Neurological: Negative for dizziness and syncope. Medications: -Lisinopril 5mg -ASA 81mg -NOT on Metoprolol -Plavix was stopped sometime between April and August) DD=889/80, P=61 Objective Physical Exam HENT: Head: Normocephalic and [...] cranial nerve deficit is present. Coordination abnormal. Nuclear MPI: Inferolateral wall scar, extending from [...] Patient states that he is feeling much better and had improved since rehab., able to walk more and became much more physically active. Able to walk 1/2 mile 2 times a day with a cane. States that these atypical symptoms are improving, still has issues with (TBI,memory loss). These chest pains appear to be atypical in nature, but per description, appear to sound musculoskeletal. We have investigated these symptoms in the past, patient underwent a nuclear stress test, which showed a inferolateral scar with small area of periinfarct ischemia. We (Dr. Burden and I) decided against any further invasive procedures. In addition, Mr. Pérez has been off several medications, including Metoprolol, was taken off plavix after 1 year (no official records). We will attempt to speak with Mr. Pérez's PCP regarding these medication issues. I discussed with Mr. Pérez importance to continue to take his medications, to bring his medicationlist with him during our appointments, and not to discontinue cardiac medications without discussionwith [facility] [place] [facility] Cardiology. Mr. Pérez verbalized his understanding. CAD: -Restarted Toprol XL 25mg daily -Continue with Lisinopril, ASA -Will recheck on Plavix issue with his PCP Follow-up appointment in 4-[address] Sandoval documented in this encounter Plan of Treatment Upcoming Encounters Date Type Specialty Care Team Description 09/04/2022 Ancillary Procedure Radiology Aissatou Briggs, Berto velázquez (D-SCHED ERROR FOOD CHEMIST / CORRECTION ) [address] [place] [address] (Wo rk) documented as of this encounter Procedures Procedure Name Priority Date/Time Associated Diagnosis Comme nts EKG 12-LEAD Routine 08/17/2012 3:36 PM Chest pain Results f or this EDT procedure are i n the results section . documented in this encounter Results EKG 12 Lead (08/17/2012 3:36 PM EDT) Component Value Ref Range Test Analysis Performed Pathologis t Method Time At Signature Ventricular rate 59 BPM MUSE SYSTEM Atrial Rate 59 BPM MUSE SYSTEM P-R Interval 142 ms MUSE SYSTEM QRS Duration 78 ms MUSE SYSTEM Q-T Interval 474 ms MUSE SYSTEM QTC Calculated 469 ms MUSE SYSTEM (Bezet) Calculated P [place] 48 degrees MUSE SYSTEM Calculated R [place] 18 degrees MUSE SYSTEM Calculated T [place] -6 degrees MUSE SYSTEM INTERPRETATION Sinus bradycardia MUSE SY STEM Inferior infarct (cited on or before 22-JAN-2012) When compared with ECG of 31-MAR-2012 14:58, No significant change was found Confirmed by MD Meghan, Amado ([id number]) on 08/18/2012 5:46:1 1 PM Specimen Anatomical Collection Method Collection Time Receive d Time (Source) Location / / Volume Laterality 08/17/2012 3:36 PM 2 5:46 EDT PM EDT Albino Arnold MD ECG ORDERABLES Performing Organization Address City/State/ZIP Code Phon e Number MUSE SYSTEM documented in this encounter Visit Diagnoses Diagnosis Chest pain - Primary Chest pain, unspecified documented in this encounter Care Teams Assembler Body Relationship Specialty Start Date End Date Jairon Gomez MD PCP - General 09/23/10 07/28/16 [address] [place] [address] documented as of this encounter
--- OUTSIDE RECORDS SUMMARY | 2022-08-15 01:37 | XMS_ITS | Encounter Summary ---
:1955 Author Organization [facility] [place] [address] Care Team Providers Name Role Phone Jairon Gomez MD Primary Care Provider [phone] Reason for Visit Reason Onset Date Comments Chest Pain 04/29/2011 Encounter Details Date Type Department Care Team Description 04/29/[address] [facility] [place] Lalo Lombardo MD Chest Pain [facility] [place] [address] CARDIOLOGY DEPT. [phone] [place] [id number] (Wo rk) Social History Tobacco Use Types Packs/Day Years Used Date Never Assessed Sex Assigned at Date Recorded Not on file documented as of this encounter Miscellaneous Notes Telephone Encounter - Lalo Lombardo MD - 04/29/2011 1:46 PM EDT [place] Cutter Operator Telephone Triage Note Caller: Dr. Francois Alaniz Location: [facility] Time: 12:51 S/p PCI LCX on 04/15/2011. 2 days of intermittent CP, responsive to nitro with TWI inf. Leads, new. Currently chest pain free. Had 2 seizures, he has known seizure disorder. CT head without contrast negative. Dilantin level is elevated at 30. Vitals: 90/53, 45-50, 98% RR18. Patient awake and talking. ECG: Troponin I: 0.03 CPK: Assessment: ACS Plan: IV heparin, patient already on ASA and clopidogrel. Transfer to [facility] documented in this encounter Plan of Treatment Upcoming Encounters Date Type Specialty Care Team Description 09/04/2022 Ancillary Procedure Radiology Aissatou Briggs Canc eled (D-SCHED ERROR SCENE AND LIGHTING DESIGN LECTURER / CORRECTION ) [address] [place] [address] (Wo rk) documented as of this encounter Visit Diagnoses Not on filedocumented in this encounter Care Teams Flight Nurse Relationship Specialty Start Date End Date Jairon Gomez MD PCP - General 09/23/10 07/28/[address] [place], [place] [address] documented as of this encounter
--- OUTSIDE RECORDS SUMMARY | 2022-08-15 01:37 | XMS_ITS | Encounter Summary ---
:1955 Author Organization [facility] Address [facility] [place] [address] Care Team Providers Name Role Phone Jairon Gomez MD Primary Care Provider [phone] Reason for Visit Reason Comments Chest Pain Encounter Details Date Type Department Care Team Description 06/09/2011 Office Visit Cardiology [place] [facility]iano Sandoval MD STEMI (ST elevation [facility] earlene cardial infarction) Drive (Primary Dx) [place], [place] CARDIOLOGY DEPT. [id number] [place] [address] [phone] Social History Tobacco Use Types Packs/Day Years Used Date Former Smoker Cigarettes Quit: 05/14/20 08 Alcohol Use Standard Drinks/Week Comments Not Asked 0 (1 standard drink = 0.6 oz pure alcoho l) Sex Assigned at Date Recorded Not on file documented as of this encounter Last Filed Vital Signs Vital Sign Reading Time Taken Comments Blood Pressure 110/70 06/09/2011 2:07 PM EDT Pulse 48 06/09/2011 2:07 PM EDT Temperature - - Respiratory Rate - - Oxygen Saturation - - Inhaled Oxygen Concentration - - Weight 62.6 kg (138 lb) 06/09/2011 2:07 PM EDT Height 162.6 cm (5' 4) 06/09/2011 2:07 PM EDT Body Mass Index 23.69 06/09/2011 2:07 PM EDT documented in this encounter Progress Notes Hever Bonilla MD - 07/01/2011 2:57 PM EDT I was the attending physician supervising the resident in the above care. For the purposes of billing, the resident provided the care. Marciano Sandoval MD - 06/09/2011 2:22 PM EDT Gas Or Water Meter Installer Clinic Note Subjective: Patient ID: Miguel Pérez is a 55 y.o. male who comes for a follow-up appointment. HPI 55yo male with PMHX significant for CAD (s/p inferior STEMI 04/15/2011, 100% distal LCx occlusion, EF=52%), history of seizures, who presents to [facility] cardiology for a hospital check after recent admission (04/29/2011) for recurrent chest discomfort in a setting of seizures due to anti-epilpetic medication toxicity. Patient states that since discharge, he has had a recent admission to [facility] for stroke. Patient is unable to state when he had this episode, but per patient it had happened after discharge. No information avail on file and patient states that he can not recall the episode, admission, or final diagnosis. Review of Systems Constitutional: Negative for fever, chills, diaphoresis and fatigue. HENT: Positive for neck pain. Respiratory: Positive for shortness of breath. Negative for wheezing. Cardiovascular: Positive for chest pain (admits to chest pain lasting all day, states that it gets worse when he moves). Gastrointestinal: Negative for nausea, vomiting and abdominal distention. Genitourinary: Positive for frequency. Neurological: Positive for dizziness, seizures, numbness and headaches. Vitals: Tq=336/70, P=48, Objective : Physical Exam HENT: Head: Normocephalic. Neck: No JVD present. Cardiovascular: Normal rate. Exam reveals no friction rub. No murmur heard. Pulmonary/Chest: No respiratory distress. He has no rales. He exhibits no tenderness. Abdominal: He exhibits no distension. He has no guarding. Musculoskeletal: He exhibits no edema. Neurological: Decreased strength (left upper and left lower extremity). Normal reflexes Assessment and Plan: 55yo male with PMHx significant for STEMI in 04/2011 (100% distal LCx occlusion, EF=52%), epilepsy, memory loss, TBI, depression, GERD, allergic rhinitis, left- sided weakness, testicular pain who presents for a hospital check s/p recent readmission for chest pain. Patient is unable to state the detailsof his recent admission to [facility] for likely CVA? States that he continues to undergo physical therapy and he feels better with each day. Denies any chest pain with activity or physical therapy, From cardiovascular standpoint, we recommend to continue with current medication treatment, including ASA 325mg, Zocor 40mg, Metoprolol succinate 25 daily, and Lisinopril 2.5mg, and Plavix 75mg for at least 4 weeks, optimally for 1 year (might be recommended in light of recent CVA?) We discussed the importance of continue to take Clopidrogrel and if patient has financial issues andunable to pay, was told to call [facility] cardiology to discuss possible options. Patient does need to be seen by neurology at [facility] and we will ask neurology to see Mr. Pérez documented in this encounter Plan of Treatment Upcoming Encounters Date Type Specialty Care Team Description 09/04/2022 Ancillary Procedure Radiology Aissatou Briggs Canc eled (D-SCHED ERROR PROGRAM CONSULTANT / CORRECTION ) [address] [place], [place] [id number] (Wo rk) documented as of this encounter Visit Diagnoses Diagnosis STEMI (ST elevation myocardial infarctio n) - Primary Acute myocardial infarction, unspecified site, episode of care unspecified documented in this encounter Care Teams Crop Grain Or Livestock Farmer Relationship Specialty Start Date End Date Jairon Gomez MD PCP - General 09/23/10 07/28/16 [address] [place] [address] documented as of this encounter
--- OUTSIDE RECORDS SUMMARY | 2022-08-15 01:37 | XMS_ITS | Encounter Summary ---
:1955 Author Organization [facility] [place] [address] Care Team Providers Name Role Phone Jairon Gomez MD Primary Care Provider [phone] Encounter Details Date Type Department Care Team Description 01/11/2012 Follow-Up Neurology at [facility] [place] Gustavo Hayes Low back pain (Primary Dx); [facility] MD [address] [address] NEUROLOGY DEPT. [place], [place] [address] (Wo rk) Social History [...] Sign Reading Time Taken Comments Blood Pressure 110/69 01/11/2012 12:19 PM EDT Pulse 62 01/11/2012 12:19 PM EDT Temperature - - Respiratory Rate - - Oxygen Saturation - - Inhaled Oxygen Concentration - - Weight 67.6 kg (149 lb) 01/11/2012 12:19 PM EDT with sh oes on Height 162.6 cm (5' 4) 01/11/2012 12:19 PM EDT reporte d Body Mass Index 25.58 01/11/2012 12:19 PM EDT documented in this encounter Progress Notes Gustavo Hayes MD - 01/11/2012 12:57 PM EDT [facility] [place] [address] PCP - JAIRON GOMEZ MD Re - Miguel Pérez Follow-up Evaluation I saw Miguel Pérez today for a scheduled follow-up evaluation. Miguel Pérez is a 56 y.o. with a history of seizures. 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, non-refractory, s/p TBI at age 23 with DEDE Seizure semiology: #1: generalized convulsion MRI: 04/16/11 at [facility] left temporal encephalomalacia EE05/2011 generalized slowing, left temporal sharp theta Epilepsy Risk Factors: TBI, abnormal EEG, abnormal MRI Current AEDs: Dilantin 100/200 ; topamax 125 mg BID Levels: phe 18.8 Past Medications: Kechristinera, unclear why stopped PMHx: TBI with DEDE and subsequent cognitive dysfunction, memory loss Lower leg pain and weakness (groin pain) presumably secondary to lumbar stenosis, although uncertain Refractory depression HTN [place] April 2011 with stent placement Stroke 2010 with left hemiparesis Social Hx: Lives with girlfriend x 30 years, [employer] pension, not employed Family Hx: [place] Interim History Patient denies any seizures. He reports severe pain in lower back and on the left side of his body which is preventing him from moving around. Current Medications Current outpatient prescriptions ordered prior to encounter Medication Sig Dispense Refill ??? traZODone (DESYREL) 100 mg tablet Take 100-200 mg by mouth nightly. ??? Levalbuterol Tartrate (XOPENEX HFA) 45 mcg/Actuation inhaler Inhale 1-2 puffs into the lungs every 4 hours as needed. ??? niacin (NIASPAN ER) 500 mg ER tablet Take 500 mg by mouth nightly. ??? topiramate (TOPAMAX) 100 mg tablet Take 100 mg by mouth 2 times daily. ??? aspirin 81 mg EC tablet Take 81 mg by mouth nightly. ??? lisinopril (PRINIVIL;ZESTRIL) 5 mg tablet Take 5 mg by mouth daily. ??? phenytoin (DILANTIN KAPSEAL) 100 mg ER capsule Take by mouth. One am, 2 pm Brand name ??? gabapentin (NEURONTIN) 300 mg capsule Take 1 capsule by mouth. Take one tablet today Take one tablet twice daily tomorrow Take one tablet three times daily starting in 2 days. 120 capsule 12 ??? topiramate (TOPAMAX) 25 mg tablet Take 2 tablets by mouth. Please follow instructions below. 90 tablet 3 ??? citalopram (CELEXA) 20 mg tablet Take 3 tablets by mouth daily. 30 tablet 3 ??? fluticasone (FLOVENT) 110 mcg/Actuation inhaler Inhale 1 puff into the lungs 2 times daily. 1 Inhaler 3 ??? metoprolol succinate (TOPROL-XL) 25 mg 24 hr tablet Take 1 tablet by mouth daily. 30 tablet 12 ??? nabumetone (RELAFEN) 500 mg tablet Take 1 tablet by mouth 2 times daily. 60 tablet 3 ??? nitroGLYcerin (NITROSTAT) 0.[address] 1 tablet under the tongue every 5 minutes as needed for Chest pain. 90 tablet 0 ??? omeprazole (PRILOSEC) 20 mg capsule Take 1 capsule by mouth daily. 30 capsule 3 ??? simvastatin (ZOCOR) 40 mg tablet Take 1 tablet by mouth nightly. 30 tablet 12 ??? FLUoxetine (PROZAC) 10 mg tablet Take 10 tablets by mouth daily. ??? docusate sodium (COLACE) 100 mg capsule Take 100 mg by mouth daily as needed. ??? traZODone (DESYREL) 50 mg tablet Take 50 mg by mouth 2 times daily. ??? aspirin 325 mg EC tablet Take 1 tablet by mouth daily. 30 tablet 12 ??? clopidogrel (PLAVIX) 75 mg tablet Take 1 tablet by mouth daily. 30 tablet 12 ??? cyproheptadine (PERIACTIN) 4 mg tablet Take 1 tablet by mouth daily. 90 tablet 1 ??? hydrOXYzine (ATARAX) 25 mg tablet Take 1 tablet by mouth every 6 hours as needed. 30 tablet 3 ??? lisinopril (PRINIVIL;ZESTRIL) 2.5 mg tablet Take 1 tablet by mouth daily. 30 tablet 12 ROS Double vision NO Headache NO Rash NO Unsteadiness NO Upset stomach NO Gum Bleeding NO Weight loss or gain NO Tremors NO Restlessness NO Dizziness NO Tiredness NO Trouble sleeping yes Difficulties concentrating yes Memory problems yes Feelings of aggression NO Depression yes Thoughts of ending your life Yes, passive ExaminationFiled Vitals: 01/11/12 1219 BP: 110/69 Pulse: 62 Height: 162.6 cm (5' 4) Weight: 67.586 kg (149 lb) Patient came in on a wheelchair. He is able to stand but has severe pain. He has clear left hemiparesis and hemianesthesia (including face). No vf deficit or neglect. Reports severe pain in left side of body. IMPRESSION/PLAN 1. 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 Chronic pain syndrome (central?) 3. Depression Patient is not having any seizures. His biggest problem at this time is pain control. I am not sure exactly the cause. He has lower back pain but this seems to be minor. He has mostly pain in the left side of his body. This may be central in origin. I would like to increase his Neurontin to 600 mg TIDand give him Vicodin 1 tab BID. I would like him to have an MRI of brain to determine if he has had a stroke (he has left hemiparesis and hemianesthesia on exam). Follow up 2 months. documented in this encounter Plan of Treatment Upcoming Encounters Date Type Specialty Care Team Description 09/04/2022 Ancillary Procedure Radiology Aissatou Briggs, Berto velázquez (D-SCHED ERROR COAL GASIFICATION TECHNICIAN / CORRECTION ) [address] [place], [place] [address] (Wo rk) documented as of this encounter Visit Diagnoses Diagnosis Low back pain - Primary Lumbago Hemiparesis Hemiplegia, unspecified, affecting unspe cified side documented in this encounter Care Teams Assistant Hvac Mechanic Relationship Specialty Start Date End Date Jairon Gomez MD PCP - General 09/23/10 07/28/[address] [place], [place] [address] documented as of this encounter
--- OUTSIDE RECORDS SUMMARY | 2022-08-15 01:37 | XMS_ITS | Encounter Summary ---
:1955 Author Organization [facility] [place] [address] Care Team Providers Name Role Phone Jairon Gomez MD Primary Care Provider [phone] Reason for Visit Reason Comments Seizures Encounter Details Date Type Department Care Team Description 04/30/2011 Office Visit Neurology at [facility] ELECTROENCEPHALOGRAM, NEURO [facility] [place] [address] Epilepsy (Primary Dx) [facility] Gustavo Hayes MD [facility] [address] [place] [id number] Social History Tobacco Use Types Packs/Day Years Used Date Never Assessed Sex Assigned at Date Recorded Not on file documented as of this encounter Progress Notes Raymundo Rosas MD - 05/01/2011 6:26 PM EDT See EEG report documented in this encounter Procedure Notes Raymundo Rosas MD - 05/01/2011 6:18 PM EDTAssociated Order(s): EEG AWAKE OR ASLEEP Procedure(s): EEG INNC. RECORDING AWAKE AND ASLEEP, W. HYPERVENT/PHOTIC STIMU PRFM Pre-Procedure Diagnose(s): Epilepsy Post-Procedure Diagnose(s): Epilepsy Name of Patient: Miguel pérez Date of Service: 04/30/2011 Interpreting Physician: Urban Rosas BRIEF HISTORY/INDICATION FOR STUDY: The patient is a 55 year old patient with post-traumatic epilepsy and recurrent seizures. CURRENT MEDICATIONS: Current outpatient prescriptions ordered prior to encounter Medication Sig Dispense Refill ??? topiramate (TOPAMAX) 25 mg tablet Take 2 tablets by mouth. Please follow instructions below. 90 tablet 3 ??? aspirin 325 mg EC tablet Take 1 tablet by mouth daily. 30 tablet 12 ??? citalopram (CELEXA) 20 mg tablet Take 3 tablets by mouth daily. 30 tablet 3 ??? clopidogrel (PLAVIX) 75 mg tablet Take 1 tablet by mouth daily. 30 tablet 12 ??? cyproheptadine (PERIACTIN) 4 mg tablet Take 1 tablet by mouth daily. 90 tablet 1 ??? fluticasone (FLOVENT) 110 mcg/Actuation inhaler Inhale 1 puff into the lungs 2 times daily. 1 Inhaler 3 ??? hydrOXYzine (ATARAX) 25 mg tablet Take 1 tablet by mouth every 6 hours as needed. 30 tablet 3 ??? lisinopril (PRINIVIL;ZESTRIL) 2.5 mg tablet Take 1 tablet by mouth daily. 30 tablet 12 ??? metoprolol succinate (TOPROL-XL) 25 mg 24 [...] by mouth daily. 30 capsule 3 ??? phenytoin (DILANTIN) 100 mg ER capsule Take 2 capsules by mouth 2 times daily. 60 capsule 3 ??? simvastatin (ZOCOR) 40 mg tablet Take 1 tablet by mouth nightly. 30 tablet 12 ??? traZODone (DESYREL) 100 mg tablet Take 2 tablets by mouth nightly. 30 tablet 5 Current facility-administered medications ordered prior to encounter Medication Dose Route Frequency Provider Last Rate Last Dose ??? DISCONTD: propofol (DIPRIVAN) 10 mg/mL infusion ??? DISCONTD: fentaNYL (PF) 50 mcg/mL injection ??? DISCONTD: aspirin EC tablet 325 mg 325 mg Oral Daily Valery Gasca MD Last Dose: 325 mg at 04/30/11 0900 ??? DISCONTD: citalopram (celeXA) tablet 60 mg 60 mg Oral Daily Valery Gasca MD Last Dose: 60 mg at 04/30/11 0900 ??? DISCONTD: clopidogrel (PLAVIX) tablet 75 mg 75 mg Oral Daily Valery Gasca MD Last Dose: 75 mg at04/30/11899 ??? DISCONTD: fluticasone (FLOVENT) 110 mcg/Actuation inhaler 1 puff 1 puff Inhalation BID Valery Gasca MD Last Dose: 1 puff at 04/30/11899 ??? DISCONTD: lisinopril (PRINIVIL;ZESTRIL) tablet 2.5 mg 2.5 mg Oral Daily Valery Gasca MD Last Dose: 2.5 mg at 04/30/11899 ??? DISCONTD: metoprolol succinate (TOPROL-XL) XL tablet 25 mg 25 mg Oral Daily Valery Gasca MD LastDose: 25 mg at 04/30/11 09 ??? DISCONTD: simvastatin (ZOCOR) tablet 40 mg 40 mg Oral QPM Valery Gasca MD Last Dose: 40 mg at 04/29/11 1900 ??? DISCONTD: sodium chloride 0.9 % flush 5 mL 5 mL Intravenous BID Valery Gasca MD Last Dose: 5 mL at 04/30/11 09 ??? DISCONTD: nitroGLYcerin (NITROSTAT) SL tablet 0.4 mg 0.4 mg Sublingual Q5 Min PRN Valery Gasca MD Last Dose: 0.4 mg at 04/29/11 1755 ??? DISCONTD: acetaminophen (TYLENOL) tablet 650 mg 650 mg Oral Q4H PRN Valery Gasca MD ??? DISCONTD: zolpidem (AMBIEN) tablet 5 mg 5 mg Oral Nightly PRN Valery Gasca MD Last Dose: 5 mg at04/29/113 ??? DISCONTD: famotidine (PEPCID) tablet 20 mg 20 mg Oral BID Valery Gasca MD Last Dose: 20 mg at 04/30/11899 ??? DISCONTD: heparin (porcine) injection 1,850-3,700 Units 1,850-3,700 Units Intravenous BOLUS HEPARIN PP Valery Gasca MD ??? DISCONTD: heparin 25,000 units in dextrose 5% 500 mL infusion 350-7,000 Units/hr Intravenous Continuous Valery Gasca MD 16 mL/hr (04/30/11242) Last Dose: 800 Units/hr at 04/30/11242 ??? DISCONTD: topiramate (TOPAMAX) tablet 50 mg 50 mg Oral BID Valery Gasca MD Last Dose: 50 mg at 04/30/11899 METHODS: A 21 channel digitized electroencephalogram was performed in the [facility]. The 10/20 international system of electrode placement was used and bipolar and referential electrode montages were recorded. In addition to EEG the patient was monitored for EKG and lateral/vertical eye movements. The patient was recorded during wakefulness, drowsiness, sleep, andduring the activation procedure of photic stimulation. Video was not recorded during the session. The duration of the recording was 30 minutes. DESCRIPTIVE TEXT: Wakefulness During the awake state with the eyes closed the background consisted of a medium amplitude, 7 Hz posterior reactive rhythm . Beta activity was distributed diffusely with an anterior predominance. Therewas a normal anterior-posterior voltage gradient. With eye opening the background activity changed to a low voltage mixture of beta, and theta range frequencies. There were no significant asymmetries of background activity noted. Drowsiness and Sleep With drowsiness there was some waxing and waning of the posterior rhythm with eventual replacement by a mixture of beta and theta activity. As the patient entered stage II of sleep, symmetrical spindles and vertex sharp waves were present. Arousal was unremarkable. Hyperventilation Hyperventilation was not performed because of Recent status epilepticus and cardiac concerns. Photic Stimulation Photic stimulation using a step-de anda increase in photic frequency from 1-21 Hertz resulted in no driving responses or appearance of abnormal activity. EKG: EKG revealed normal sinus rhythm. INTERPRETATION: This EEG is abnormal due to mild to moderate slowing of background. On episode of sharp theta activity with left predominance was noted. This was not clearly epileptiform but suspicious. It could have been a muscle artefact as he was shivering and poorly responsive. PRIOR EEG: Mild generalized slowing CLINICAL CORRELATION: This EEG is suggestive of a mild diffuse encephalopathy. No clearly epileptic abnormalities are seen, but but some left sided sharp theta is suspicious. It could however just be an artefact. 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 RECORDING Routine 05/01/2011 6:18 PM Epilepsy Re sults for this AWAKE AND ASLEEP, EDT procedure are in W. HYPERVENT/PHOTIC the resu lts STIMU PRFM section. ZEEG AWAKE, ASLEEP, Routine 05/01/2011 6:18 PM Epilepsy Re sults for this DROWSY EDT procedure are i n the results section. [employer] EMPLOYEE 05/01/2011 1:11 PM Result s for this SCAN EDT procedure are i n the results section. documented in this encounter Results EEG INNC. RECORDING AWAKE AND ASLEEP, W. HYPERVENT/PHOTIC STIMU PRFM (05/01/2011 6:18 PM EDT) Narrative Raymundo Rosas MD - 05/01/2011 6:18 P M EDT Name of Patient: Miguel pérez Date of Service: ??04/30/2011 Interpreting Physician: Urban Rosas BRIEF HISTORY/INDICATION FOR STUDY: ?? The patient is a 55 year old patient wit h post-traumatic epilepsy and recurrent seizures. CURRENT MEDICATIONS: ?? Current outpatient prescriptions ordered prior to encounter Medication Sig Dispense Refill ? ? topiramate (TOPAMAX) 25 mg tablet Take 2 tablets by mouth. Please follow instructions below. ??90 tablet ??3 ? ? aspirin 325 mg EC tablet Take 1 tablet by mouth daily. ??30 tablet ??12 ? ? citalopram (CELEXA) 20 mg tablet Take 3 tablets by mouth daily. ??30 tablet ??3 ? ? clopidogrel (PLAVIX) 75 mg tablet Take 1 tablet by mouth daily. ??30 tablet ??12 ? ? cyproheptadine (PERIACTIN) 4 mg tablet Take 1 tablet by mouth daily. ??90 tablet ??1 ? ? fluticasone (FLOVENT) 110 mcg/Actuation inhaler Inhale 1 puff into the lungs 2 times daily. ??1 Inhaler ??3 ? ? hydrOXYzine (ATARAX) 25 mg tablet Take 1 tablet by mouth every 6 hours as needed. ??30 tablet ??3 ? ? lisinopril (PRINIVIL;ZESTRIL) 2.5 mg tablet Take 1 tablet by mouth daily. ??30 tablet ??12 ? ? metoprolol succinate (TOPROL-XL) 25 mg 24 hr tablet Take 1 tablet by mouth daily. ??30 tablet ??12 ? ? nabumetone (RELAFEN) 500 mg tablet Take 1 tablet by mouth 2 times daily. 60 tablet ??3 ? ? nitroGLYcerin (NITROSTAT) 0.[address] 1 tablet under the tongue every 5 minutes as needed for Carole st pain. ??90 tablet ??0 ? ? omeprazole (PRILOSEC) 20 mg capsule Take 1 capsule by mouth daily. ??30 capsule ??3 ? ? phenytoin (DILANTIN) 100 mg ER capsule Take 2 capsules by mouth 2 times daily. ??60 capsule ??3 ? ? simvastatin (ZOCOR) 40 mg tablet Take 1 tablet by mouth nightly. ??30 tablet ??12 ? ? traZODone (DESYREL) 100 mg tablet Take 2 tablets by mouth nightly. ??30 tablet ??5 Current facility-administered medication s ordered prior to encounter Medication Dose Route Frequency Provider Last Rate Last Dose ? ? DISCONTD: propofol (DIPRIVAN) 10 mg/mL infusion ? DISCONTD: fentaNYL (PF) 50 mcg/mL injection ? DISCONTD: aspirin EC tablet 325 mg ??325 mg Oral Daily Valery Gasca MD ?? Last Dose: 325 mg at 04/30/11899 ? ? DISCONTD: citalopram (celeXA) tablet 60 mg ??60 mg Oral Daily Valery Gasca MD ?? Last Dose: 60 mg at 899 ? ? DISCONTD: clopidogrel (PLAVIX) tablet 75 mg ??75 mg Oral Daily Valery Gasca MD ?? Last Dose: 75 mg at 899 ? ? DISCONTD: fluticasone (FLOVENT) 110 mcg/Actuation inhaler 1 puff ??1 puff Inhalation BID Valery Gasca MD ?? Last D ose: 1 puff at 04/30/11899 ? ? DISCONTD: lisinopril (PRINIVIL;ZESTRIL) tablet 2.5 mg ??2.5 mg Oral Daily Valery Gasca MD ?? Last Dose: 2.5 mg at 04/30/11899 ? ? DISCONTD: metoprolol succinate (TOPROL-XL) XL tablet 25 mg ??25 mg Oral Daily Valery Gasca MD ?? Last Dose: 25 m g at 04/30/11899 ? ? DISCONTD: simvastatin (ZOCOR) tablet 40 mg ??40 mg Oral QPM Valery Gasca MD ?? Last Dose: 40 mg at 04/29/11 1900 ? ? DISCONTD: sodium chloride 0.9 % flush 5 mL ??5 mL Intravenous BID Valery Gasca MD ?? Last Dose: 5 mL at 09 ? ? DISCONTD: nitroGLYcerin (NITROSTAT) SL tablet 0.4 mg ??0.4 mg Sublingual Q5 Min PRN Valery Gasca MD ?? Last Dose: 0.4 mg at 04/29/11 1755 ? ? DISCONTD: acetaminophen (TYLENOL) tablet 650 mg ??650 mg Oral Q4H PRN Valery Gasca MD ? DISCONTD: zolpidem (AMBIEN) tablet 5 mg ??5 mg Oral Nightly PRN Valery Gasca MD ?? Last Dose: 5 mg at 2202 ? ? DISCONTD: famotidine (PEPCID) tablet 20 mg ??20 mg Oral BID Valery Gasca MD ?? Last Dose: 20 mg at 04/30/11899 ? ? DISCONTD: heparin (porcine) injection 1,850-3,700 Units ??1,850-3,700 Units Intravenous BOLUS HEPARIN PP Valery Gasca MD ? DISCONTD: heparin 25,000 units in dextrose 5% 500 mL infusion ?? 350-7,000 Units/hr Intravenous Continuou s Valery Gasca MD 16 mL/hr (04/30/11242) Last Dose: 800 Units/hr at 04/30/11242 ? ? DISCONTD: topiramate (TOPAMAX) tablet 50 mg ??50 mg Oral BID Valery Gasca MD ?? Last Dose: 50 mg at 04/30/11899 METHODS: A 21 channel digitized electroencephalog kris was performed in the [facility]. The 10/20 international system of electrode placem ent was used and bipolar and referential electrode montages were chase rded. ??In addition to EEG the patient was monitored for EKG and latera l/vertical eye movements. The patient was recorded during wakefulness, drowsiness, sleep, and during the activation procedure of photic stimulati on. Video was not recorded during the session. The duration of the recordi ng was 30 minutes. DESCRIPTIVE TEXT: Wakefulness During the awake state with the eyes nini sed the background consisted of a medium amplitude, 7 Hz posterior reactiv e rhythm . Beta activity was distributed diffusely with an anterior p redominance. There was a normal anterior-posterior voltage gradient. Wit h eye opening the background activity changed to a low voltage mixtur e of ??beta, and theta range frequencies. There were no significant a symmetries of background activity noted. Drowsiness and Sleep With drowsiness there was some waxing an d waning of the posterior rhythm with eventual replacement by a mixture of bet a and theta activity. As the patient entered stage II of sleep , symmetrical spindles and vertex sharp waves were present. Arousal was unremarkable. Hyperventilation Hyperventilation was not performed becau se of ??Recent status epilepticus and cardiac concerns. Photic Stimulation Photic stimulation using a step-de anda inc rease in photic frequency from 1-21 Hertz resulted in no driving respon ses or appearance of abnormal activity. EKG: EKG revealed normal sinus rhythm. INTERPRETATION: This EEG is abnormal due to mild to mode rate slowing of background. On episode of sharp theta activity with lef t predominance was noted. This was not clearly epileptiform but suspicious. It could have been a muscle artefact as he was shivering and poorly responsive. PRIOR EEG: Mild generalized slowing CLINICAL CORRELATION: This EEG is suggestive of a mild diffuse encephalopathy. No clearly epileptic abnormalities ??are seen, but but some left sided sharp theta is suspicious. ??It could however just be a n artefact. Procedure Note Raymundo Rosas MD - 05/01/2011 6:18 P M EDT Name of Patient: Miguel pérez Date of Service: 04/30/2011 Interpreting Physician: Urban Rosas BRIEF HISTORY/INDICATION FOR STUDY: The patient is a 55 year old patient wit h post-traumatic epilepsy and recurrent seizures. CURRENT MEDICATIONS: Current outpatient prescriptions ordered prior to encounter Medication Sig Dispense Refill ? ? topiramate (TOPAMAX) 25 mg tablet Take 2 tablets by mouth. Please follow instructions below. 90 tablet 3 ? ? aspirin 325 mg EC tablet Take 1 tablet by mouth daily. 30 tablet 12 ? ? citalopram (CELEXA) 20 mg tablet Take 3 tablets by mouth daily. 30 tablet 3 ? ? clopidogrel (PLAVIX) 75 mg tablet Take 1 tablet by mouth daily. 30 tablet 12 ? ? cyproheptadine (PERIACTIN) 4 mg tablet Take 1 tablet by mouth daily. 90 tablet 1 ? ? fluticasone (FLOVENT) 110 mcg/Actuation inhaler Inhale 1 puff into the lungs 2 times daily. 1 Inhaler 3 ? ? hydrOXYzine (ATARAX) 25 mg tablet Take 1 tablet by mouth every 6 hours as needed. 30 tablet 3 ? ? lisinopril (PRINIVIL;ZESTRIL) 2.5 mg tablet Take 1 tablet by mouth daily. 30 tablet 12 ? ? metoprolol succinate (TOPROL-XL) 25 mg 24 hr tablet Take 1 tablet by mouth daily. 30 tablet 12 ? ? nabumetone (RELAFEN) 500 mg tablet Take 1 tablet by mouth 2 times daily. 60 tablet 3 ? ? nitroGLYcerin (NITROSTAT) 0.[address] 1 tablet under the tongue every 5 minutes as needed for Chest pain. 90 tablet 0 ? ? omeprazole (PRILOSEC) 20 mg capsule Take 1 capsule by mouth daily. 30 capsule 3 ? ? phenytoin (DILANTIN) 100 mg ER capsule Take 2 capsules by mouth 2 times daily. 60 capsule 3 ? ? simvastatin (ZOCOR) 40 mg tablet Take 1 tablet by mouth nightly. 30 tablet 12 ? ? traZODone (DESYREL) 100 mg tablet Take 2 tablets by mouth nightly. 30 tablet 5 Current facility-administered medication s ordered prior to encounter Medication Dose Route Frequency Provider Last Rate Last Dose ? ? DISCONTD: propofol (DIPRIVAN) 10 mg/mL infusion ? ? DISCONTD: fentaNYL (PF) 50 mcg/mL injection ? ? DISCONTD: aspirin EC tablet 325 mg 325 mg Oral Daily Valery Gasca MD Last Dose: 325 mg at 04/30/11899 ? ? DISCONTD: citalopram (celeXA) tablet 60 mg 60 mg Oral Daily Valery Gasca MD Last Dose: 60 mg at 04/30/11899 ? ? DISCONTD: clopidogrel (PLAVIX) tablet 75 mg 75 mg Oral Daily Valery Gasca MD Last Dose: 75 mg at 04/30/11899 ? ? DISCONTD: fluticasone (FLOVENT) 110 mcg/Actuation inhaler 1 puff 1 puff Inhalation BID Valery Gasca MD Last Dose: 1 puff at 04/30/11899 ? ? DISCONTD: lisinopril (PRINIVIL;ZESTRIL) tablet 2.5 mg 2.5 mg Oral Daily Valery Gasca MD Last Dose: 2.5 mg at 04/30/11899 ? ? DISCONTD: metoprolol succinate (TOPROL-XL) XL tablet 25 mg 25 mg Oral Daily Valery Gasca MD Last Dose: 25 mg at 04/30/11899 ? ? DISCONTD: simvastatin (ZOCOR) tablet 40 mg 40 mg Oral QPM Valery Gasca MD Last Dose: 40 mg at 04/29/11 1900 ? ? DISCONTD: sodium chloride 0.9 % flush 5 mL 5 mL Intravenous BID Valery Gasca MD Last Dose: 5 mL at 04/30/11899 ? ? DISCONTD: nitroGLYcerin (NITROSTAT) SL tablet 0.4 mg 0.4 mg Sublingual Q5 Min PRN Valery Gasca MD Last Dose: 0.4 mg at 04/29/11 1755 ? ? DISCONTD: acetaminophen (TYLENOL) tablet 650 mg 650 mg Oral Q4H PRN Valery Gasca MD ? ? DISCONTD: zolpidem (AMBIEN) tablet 5 mg 5 mg Oral Nightly PRN Valery Gasca MD Last Dose: 5 mg at 04/29/112202 ? ? DISCONTD: famotidine (PEPCID) tablet 20 mg 20 mg Oral BID Valery Gasca MD Last Dose: 20 mg at 04/30/11899 ? ? DISCONTD: heparin (porcine) injection 1,850-3,700 Units 1,850-3,700 Units Intravenous BOLUS HEPARIN PP Valery Gasca MD ? ? DISCONTD: heparin 25,000 units in dextrose 5% 500 mL infusion 350-7,000 Units/hr Intravenous Continuous Valery Gasca MD 16 mL/hr (04/30/11242) Last Dose: 800 Units/hr at 04/30/11 0243 ? ? DISCONTD: topiramate (TOPAMAX) tablet 50 mg 50 mg Oral BID Valery Gasca MD Last Dose: 50 mg at 04/30/11899 METHODS: A 21 channel digitized electroencephalog kris was performed in the [facility]. The 10/20 international system of electrode placement was used and bipolar and referential electrode montages were chase rded. In addition to EEG the patient was monitored for EKG and lateral/vertical eye movements. The patient was recorded during wakefulness, drowsiness, sleep, and during the activation procedure of photic stimulati on. Video was not recorded during the session. The duration of the recording was 30 minutes. DESCRIPTIVE TEXT: Wakefulness During the awake state with the eyes nini sed the background consisted of a medium amplitude, 7 Hz posterior reactive rhythm . Beta activity was distributed diffusely with an anterior predominance. There was a normal anterior-posterior voltage gradient. Wit h eye opening the background activity changed to a low voltage mixture of beta, and theta range frequencies. There were no significant asymmetries of background activity noted. Drowsiness and Sleep With drowsiness there was some waxing an d waning of the posterior rhythm with eventual replacement by a mixture of bet a and theta activity. As the patient entered stage II of sleep , symmetrical spindles and vertex sharp waves were present. Arousal was unremarkable. Hyperventilation Hyperventilation was not performed becau se of Recent status epilepticus and cardiac concerns. Photic Stimulation Photic stimulation using a step-de anda inc rease in photic frequency from 1-21 Hertz resulted in no driving responses or appearance of abnormal activity. EKG: EKG revealed normal sinus rhythm. INTERPRETATION: This EEG is abnormal due to mild to mode rate slowing of background. On episode of sharp theta activity with left predominance was noted. This was not clearly epileptiform but suspicious. It could have been a muscle artefact as he was shivering and poorly responsive. PRIOR EEG: Mild generalized slowing CLINICAL CORRELATION: This EEG is suggestive of a mild diffuse encephalopathy. No clearly epileptic abnormalities are seen, but but some left sided sharp theta is suspicious. It could however just be an artefact. 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
--- OUTSIDE RECORDS SUMMARY | 2022-08-15 01:37 | XMS_ITS | Encounter Summary ---
:1955 Author Organization [facility] Address [facility] [place] [address] Care Team Providers Name Role Phone Jairon Gomez MD Primary Care Provider [phone] Encounter Details Date Type Department Care Team Description 10/14/2011 Follow-Up Neurology at [facility] Gustavo Hayes Epilepsy (Primary Dx); [facility] MD Marielle Depression; [facility] [place] Chronic pain; [place] [address] Stroke [phone] NEUROLOGY DEPT. [place], [place] [address] (Wo rk) Social History Tobacco [...] Sign Reading Time Taken Comments Blood Pressure 99/70 10/14/2011 2:29 PM EST Pulse 51 10/14/2011 2:29 PM EST Temperature - - Respiratory Rate - - Oxygen Saturation - - Inhaled Oxygen Concentration - - Weight 63.5 kg (140 lb) 10/14/2011 2:29 PM EST Height 162.6 cm (5' 4) 10/14/2011 2:29 PM EST Body Mass Index 24.03 10/14/2011 2:29 PM EST documented in this encounter Progress Notes Gustavo Hayes MD - 10/14/2011 3:59 PM EST [facility] [place] [address] PCP - JAIRON GOMEZ MD Re - Miguel Pérez Follow-up Evaluation I saw Miguel Pérez today for a scheduled follow-up evaluation. Miguel Pérez is a 56 y.o. with a history of seizures. 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 Pérez comes for a scheduled followup. He reports that has not been having any seizures at all.He says that his last seizure was in April of 2011 when he was admitted for his heart attack. He reports that he has been taking his medications regularly and does not skip doses. He denies any side effects. Mr. Pérez reports significant problems with pain in his lower extremities. He says that he cannot stand for longer than five minutes before the pain in his groin and in his buttocks gets so bad that he has to sit down. This has been limiting his walking. He also is complaining of severe depression and is contemplating suicide. He does not have a plan. He says that the pain is so bad that he cannot live any longer. Current Medications Current outpatient prescriptions ordered prior to encounter Medication Sig Dispense Refill ??? phenytoin (DILANTIN KAPSEAL) 100 mg ER capsule Take by mouth. One am, 2 pm Brand name ??? gabapentin (NEURONTIN) 300 mg capsule Take 1 capsule by mouth. Take one tablet today Take one tablet twice daily tomorrow Take one tablet three times daily starting in 2 days. 120 capsule 12 ??? aspirin 325 mg EC tablet Take [...] by mouth daily. 30 tablet 12 ??? nitroGLYcerin (NITROSTAT) 0.[address] 1 tablet under the tongue every 5 minutes as needed for Chest pain. 90 tablet 0 ??? omeprazole (PRILOSEC) 20 mg capsule Take 1 capsule by mouth daily. 30 capsule 3 ??? simvastatin (ZOCOR) 40 mg tablet Take 1 tablet by mouth nightly. 30 tablet 12 ??? traZODone (DESYREL) 50 mg tablet Take 50 mg by mouth 2 times daily. ??? topiramate (TOPAMAX) 25 mg tablet Take 2 tablets by mouth. Please follow instructions below. 90 tablet 3 ??? nabumetone (RELAFEN) 500 mg tablet Take 1 tablet by mouth 2 times daily. 60 tablet 3 ROS Double vision NO Headache yes Rash NO Unsteadiness NO Upset stomach NO Gum Bleeding NO Weight loss or gain NO Tremors NO Restlessness NO Dizziness yes Tiredness NO Trouble sleeping NO Difficulties concentrating yes Memory problems NO Feelings of aggression Yes Depression yes Thoughts of ending your life Yes, passive Depression Scale: 21/24 (severe depressed) QOL: 02/08 ExaminationFiled Vitals: 10/14/11 1429 BP: 99/70 Pulse: 51 Height: 162.6 cm (5' 4) Weight: 63.504 kg (140 lb) Patient is disinhibited, sliding around in a wheelchair. He is oriented. He does not want to stand up. Cranial nerve examination reveals normal eye movements and full visual trujillo. He has mild left facial weakness and significant left arm and leg weakness and hypoesthesia. His MSR are increased in left arm with +Cho and bilaterally brisk in the lower extremities. IMPRESSION/PLAN 1. 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 Chronic pain, due to spinal stenosis? 3. Left hemiparesis and left hemianesthesia - possible stroke 4. Refractory depression Mr. Pérez is an extremely complicated man. I think that he most likely does have epilepsy. He has rare seizure frequency, occurring once every several years, an abnormal EEG, and an abnormal MRI showing encephalomalacia inthe left temporal lobe. I do not think that he is having pseudoseizures, or at least he is in the lower risk group. His seizures seem to be relatively well controlled, occurring once every few years. He is taking Dilantin, which is in the therapeutic range. Other than the epilepsy, Mr. Pérez has quite a number of other significant problems. Most notably,he has chronic pain, which is thought to be secondary to spinal stenosis. His examination, however, shows brisk reflexes in the lower extremities, and I am concerned that there may be something else going on. In addition, he appears to be quite depressed. He is passively talking about suicide, although when ask bluntly he denies any sort of a plan and says that he not actually going to be doing that.I am surprised to find left-sided hemiparesis and hemianesthesia on examination. There was some thought that he may have had a stroke at the time of his myocardial infarction, and I think most likely that is true. I will try to obtain more records. documented in this encounter Plan of Treatment Upcoming Encounters Date Type Specialty Care Team Description 09/04/2022 Ancillary Procedure Radiology Aissatou Briggs, Berto velázquez (D-SCHED ERROR GENERAL PURCHASING AGENT / CORRECTION ) [address] [place] [address] (Wo rk) documented as of this encounter Visit Diagnoses Diagnosis Epilepsy - Primary Unspecified epilepsy without mention of intractable epilepsy Depression Depressive disorder, not elsewhere class ified Chronic pain Other chronic pain Stroke Unspecified cerebral artery occlusion wi th cerebral infarction documented in this encounter Care Teams Senior Quantity Surveyor Relationship Specialty Start Date End Date Jairon Gomez MD PCP - General 09/23/10 07/28/[address] [place] [address] documented as of this encounter
--- OUTSIDE RECORDS SUMMARY | 2022-08-15 01:37 | XMS_ITS | Encounter Summary ---
:1955 Author Organization [facility] Address [address] [place] [address] Care Team Providers Name Role Phone Jairon Gomez MD Primary Care Provider [phone] Encounter Details Date Type Department Care Team Description 04/29/2011 Orders Only Cardiothoracic Surge ry Haris Wilkerson, [facility] Sumit [place] [id number] [place] [address] CARDIOTHORACIC SURGERY [place] [address] (Wo rk) Social History Tobacco Use Types Packs/Day Years Used Date Never Assessed Sex Assigned at Date Recorded Not on file documented as of this encounter Plan of Treatment Upcoming Encounters Date Type Specialty Care Team Description 09/04/2022 Ancillary Procedure Radiology Aissatou Briggs Canc eled (D-SCHED ERROR AIR CONDITIONING EQUIPMENT MECHANIC / CORRECTION ) [address] [place], [place] [id number] (Wo rk) documented as of this encounter Procedures Procedure Name Priority Date/Time Associated Diagnosis Comme nts FILM LIBRARY Routine 04/29/2011 10:30 AM Results for this STORAGE ONLY DX EDT procedure ar e in CHEST the results section. documented in this encounter Results FILM LIBRARY- STORAGE ONLY DX CHEST (04/29/2011 10:30 AM EDT) Specimen (Source) Anatomical Collection Method Collection Time Re ceived Time Location / / Volume Laterality 04/29/2011 10:30 AM EDT Narrative [facility] - 03/06/2014 7:51 PM EDT This is a non-reportable exam. Procedure Note Alec Milian - 03/06/2014Formatting of t his note might be different from the original. This is a non-reportable exam. Haris Wilkerson MD IMG FILM LIBRARY ORDERABLES Performing Organization Address City/State/ZIP Code Phon e Number [facility] [address] [place] [address] documented in this encounter Visit Diagnoses Not on filedocumented in this encounter Care Teams Office Assistant Receptionist Relationship Specialty Start Date End Date Jairon Gomez MD PCP - General 09/23/10 07/28/[address] [place] [address] documented as of this encounter
--- OUTSIDE RECORDS SUMMARY | 2022-08-15 01:37 | XMS_ITS | Encounter Summary ---
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 diabetic kidney disease. References: http://nkdep.nih.gov/resources/NKDEP_Sug gestn4Labs_0606_508.pdf http://www.kidney.org/professionals/kls/ pdf/faq_gfr.pdf Specimen Anatomical Collection Method Collection Time Receive d Time (Source) Location / / Volume Laterality Blood specimen 04/18/2011 4:24 AM 011 4:33 (specimen) EDT AM EDT Fritz Christianson MD CHEMISTRY ORDERABLES Performing Organization Address City/State/[place] [address] CERNER MILLENNIUM (ABNORMAL) CBC (with Diff) (04/18/2011 4:24 AM EDT) P athologist Signature WBC 7.1 4.0 - 10.0 CERNER x10(3)/mcL MILLENNIUM RBC 4.53 (L) 4.63 - CERNER 6.08 MILLENNIUM x10(6)/mcL Hemoglobin 13.0 (L) 13.7 - CERNER 17.5 gm/dL MILLENNIUM Hematocrit 38.3 (L) 40.0 - CERNER 51.0 % MILLENNIUM MCV 84.5 79.0 - CERNER 92.0 fL MILLENNIUM MCH 28.7 25.6 - CERNER 32.2 pg MILLENNIUM MCHC 33.9 32.0 - CERNER 36.5 gm/dL MILLENNIUM Platelets 117 (L) 145 - 370 CERNER x10(3)/mcL MILLENNIUM RDWSD 38.8 35.0 - CERNER 46.0 fL MILLENNIUM RDWCV 12.7 10.9 - CERNER 14.4 % MILLENNIUM MPV 10.1 9.0 - 12.0 CERNER fL MILLENNIUM Specimen Anatomical Collection Method Collection Time Receive d Time (Source) Location / / Volume Laterality Blood specimen 04/18/2011 4:24 AM 011 4:33 (specimen) EDT AM EDT Fritz Christianson MD HEMATOLOGY ORDERABLES Performing Organization Address City/State/ZIP [place] [address] [facility] MILLENNIUM REQUEST FOR 2ND READ CT HEAD (04/17/2011 2:10 PM EDT) Anatomical Region Laterality Modality Head Other Specimen (Source) Anatomical Collection Method Collection Time Re ceived Time Location / / Volume Laterality 04/17/2011 2:10 PM EDT Impressions 04/20/2011 9:34 AM EDT IMPRESSION: ?? No evidence of intracranial hemorrhage o r infarct. ??No abnormal enhancement to suggest mass. ?? Film and interpretation reviewed by the attending Narrative 04/20/2011 9:[address] OF THE HEAD WITH AND WITHOUT CONTRAST: ?? HISTORY: ??55-year-old probable right MC A stroke. ??We have been asked to re-interpret this exam by Dr. Master cheatham as he believes re-interpretation of this exam may alter patient management. ?? TECHNIQUE: ??The study consists of a CT of the head performed prior to and following the intravenous administration of contrast. ??The amount of contrast is not annotated on the images. ?? FINDINGS: ?? NONCONTRAST HEAD CT: ??Ventricles are no rmal in size and contour. ??Cerebral parenchyma is normal in attenuation. ??T here is no intracranial hemorrhage or extraaxial collection. ??No focal hypode nsities to suggest acute ischemic infarct are identified. ??There is no ma ss, mass effect or shift. ?? POSTCONTRAST HEAD CT: ??There is no abno rmal enhancement. ??Visualized dural venous sinuses appear normal. ?? Procedure Note Junaid Doss MD - 04/20/2011Formatti ng of this note might be different from the original. OUTSIDE CT OF THE HEAD WITH AND WITHOUT CONTRAST: HISTORY: 55-year-old probable right MCA stroke. We have been asked to re-interpret this exam by Dr. Master cheatham as he believes re-interpretation of this exam may alter patient management. TECHNIQUE: The study consists of a CT of the head performed prior to and following the intravenous administration of contrast. The amount of contrast is not annotated on the images. FINDINGS: NONCONTRAST HEAD CT: Ventricles are norm al in size and contour. Cerebral parenchyma is normal in attenuation. The re is no intracranial hemorrhage or extraaxial collection. No focal hypodens ities to suggest acute ischemic infarct are identified. There is no mass , mass effect or shift. POSTCONTRAST HEAD CT: There is no abnorm al enhancement. Visualized dural venous sinuses appear normal. IMPRESSION IMPRESSION: No evidence of intracranial hemorrhage o r infarct. No abnormal enhancement to suggest mass. Film and interpretation reviewed by the attending King Boudreaux MD IMG OUTSIDE INTERPRETATION O RDERABLES CARDIAC CATHETERIZATION (04/17/2011 1:56 PM EDT) Anatomical Region Laterality Modality Other Specimen (Source) Anatomical Location Collection Method / Collectio n Time Received Time / Laterality Volume Narrative This result has an attachment that is no t available. Jonn Silver MD CARDIAC CATH ORDERABLES Potassium (04/17/2011 12:06 PM EDT) P athologist Signature Potassium 3.9 3.5 - 5.0 CERNER mmol/L MILLENNIUM Comment: Please note: ??Patients with WBC >100,00 0 may have falsely elevated Potassium levels. ??For accurate Potassium quantif ication in these patients send serum separator tube (gold top) for subsequent determinations. ??Contact the Clinical Chemistry Laboratory if there are any qu estions. Specimen Anatomical Collection Method Collection Time Receive d Time (Source) Location / / Volume Laterality Blood specimen 04/17/2011 12: 1 (specimen) PM EDT 12:31 PM EDT Holley Burden MD CHEMISTRY ORDERABLES Performing Organization Address City/State/ZIP Code Phon e Number [place] [phone] CERNER MILLENNIUM (ABNORMAL) REFLEX LAB-A-DIFF (04/17/2011 3:29 AM EDT) [facility] Method Time Signature Neutrophils % 67.9 34.0 - CERNER 71.0 % MILLENNIUM Neutr Abs (ANC) 5.37 1.50 - CERNER 6.30 MILLENNIUM x10(3)/mc L Lymphocytes % 18.7 (L) 19.0 - CERNER 53.0 % MILLENNIUM Lymphocytes Abs 1.5 1.0 - 3.6 CERNER x10(3)/mc MILLENNIUM L Monocytes % 9.9 4.0 - CERNER 13.0 % MILLENNIUM Monocyte Abs 0.8 0.2 - 1.0 CERNER x10(3)/mc MILLENNIUM L Eosinophils % 2.8 0.0 - 7.0 CERNER % MILLENNIUM Eosinophils Abs 0.2 0.0 - 0.5 CERNER x10(3)/mc MILLENNIUM L Basophils % 0.4 0.0 - 2.0 CERNER % MILLENNIUM Basophils Abs 0.0 0.0 - 0.2 CERNER x10(3)/mc MILLENNIUM L Immature Gran % 0.30 0.00 - CERNER 0.66 % MILLENNIUM Comment: Immature granulocytes(IG's)percentage an d absolute count will include metamyelocytes, myelocytes, and promyelo cytes. Blood smears from CBCs yielding IG's will be scanned manually for concor dance. If this scan disagrees with the automated IG or if promyelocytes are not ed, a manual differential will be performed. Lee Ann Gran Abs 0.02 0.00 - 0.05 x10(3)/mcL CER NER MILLENNIUM Specimen Anatomical Collection Method Collection Time Receive d Time (Source) Location / / Volume Laterality Blood specimen 04/17/2011 3:29 AM 011 3:39 (specimen) EDT AM EDT Fritz Christianson MD HEMATOLOGY ORDERABLES Performing Organization Address City/[facility]/ZIP [place] [address] CERNER MILLENNIUM (ABNORMAL) Phosphorus (04/17/2011 3:29 AM EDT) athologist Signature Phosphorus 1.8 (L) 2.5 - 4.5 CERNER mg/dL MILLENNIUM Specimen Anatomical Collection Method Collection Time Receive d Time (Source) Location / / Volume Laterality Blood specimen 04/17/2011 3:29 AM 011 3:39 (specimen) EDT AM EDT Fritz Christianson MD CHEMISTRY ORDERABLES Performing Organization Address City/[facility]/ZIP Code Phon e Number [address] CERNER MILLENNIUM Magnesium (04/17/2011 3:29 AM EDT) athologist Signature Magnesium 0.75 0.69 - 1.07 CERNER mmol/L MILLENNIUM Specimen Anatomical Collection Method Collection Time Receive d Time (Source) Location / / Volume Laterality Blood specimen 04/17/2011 3:29 AM 011 3:39 (specimen) EDT AM EDT Fritz Christianson MD CHEMISTRY ORDERABLES Performing Organization Address City/[facility] [place] [address] CERNER MILLENNIUM (ABNORMAL) Basic metabolic panel (04/17/2011 3:29 AM EDT) athologist Signature Glucose Lvl 107 60 - 199 CERNER mg/dL MILLENNIUM Comment: Diabetes: >=200 mg/dL plus symp toms BUN 15 10 - 20 mg/dL CERNER MILLENNIU M Creatinine 1.00 0.80 - 1.50 mg/dL CERNER MILL ENNIUM Sodium 139 135 - 145 mmol/L CERNER OMA NIUM Potassium 3.4 (L) 3.5 - 5.0 mmol/L CERNER OMA NIUM Comment: Please note: ??Patients with WBC >100,00 0 may have falsely elevated Potassium levels. ??For accurate Potassium quantif ication in these patients send serum separator tube (gold top) for subsequent determinations. ??Contact the Clinical Chemistry Laboratory if there are any qu estions. Chloride 110 (H) 98 - 107 mmol/L CERNER MILLENN IUM CO2 21 (L) 22 - 31 mmol/L CERNER MILLENNI UM Anion Gap 8 5 - 15 mmol/L CERNER MILLENNIU M Calcium 8.7 8.5 - 10.5 mg/dL CERNER OMA NIUM Estimated GFR >60 >=60 CERNER MILLENNIU M Comment: The National Kidney Disease Education Pr ogram (NKDEP) has recommended all laboratories report estimated GFR (eGFR) along with plasma creatinine measurements to assist you with recognit ion of early kidney disease. Caveats: ??Plasma creatinine should be a t steady-state (unchanged within the past week). For patient s multiply eGFR by 1.2.MDRD equation has not been validated for pediatric pat ients and is only valid for patients with age >= 18 years. At present, NKDEP does NOT recommend usi ng the MDRD equation for drug dosing purposes and pharmacists should continue to use their current dosing methods. In addition, numerical eGFR values great er than 60 ml/min/1.73 square meters should be treated as > 60, and not an ex act number due to greater inaccuracies at these higher values. Per NKDEP, they classify normal renal function as any GFR >60ml/min/1.73 square meters; chronic kidney disease wh en GFR <60, and renal failure when GFR <15. ??This calculation may not be valid for patients with atypical muscle mass (very lean or obese), acute renal failur e, and in patients with diabetic kidney disease. References: http://nkdep.nih.gov/resources/NKDEP_Sug gestn4Labs_0606_508.pdf http://www.kidney.org/professionals/kls/ pdf/faq_gfr.pdf Specimen Anatomical Collection Method Collection Time Receive d Time (Source) Location / / Volume Laterality Blood specimen 04/17/2011 3:29 AM 011 3:39 (specimen) EDT AM EDT Fritz Christianson MD CHEMISTRY ORDERABLES Performing Organization Address City/State/[place] [address] CERNER MILLENNIUM (ABNORMAL) CBC (with Diff) (04/17/2011 3:29 AM EDT) athologist Signature WBC 7.9 4.0 - 10.0 CERNER x10(3)/mcL MILLENNIUM RBC 4.36 (L) 4.63 - CERNER 6.08 MILLENNIUM x10(6)/mcL Hemoglobin 13.1 (L) 13.7 - CERNER 17.5 gm/dL MILLENNIUM Hematocrit 37.3 (L) 40.0 - CERNER 51.0 % MILLENNIUM MCV 85.6 79.0 - CERNER 92.0 fL MILLENNIUM MCH 30.0 25.6 - CERNER 32.2 pg MILLENNIUM MCHC 35.1 32.0 - CERNER 36.5 gm/dL MILLENNIUM Platelets 112 (L) 145 - 370 CERNER x10(3)/mcL MILLENNIUM RDWSD 40.3 35.0 - CERNER 46.0 fL MILLENNIUM RDWCV 12.9 10.9 - CERNER 14.4 % MILLENNIUM MPV 9.7 9.0 - 12.0 CERNER fL MILLENNIUM Specimen Anatomical Collection Method Collection Time Receive d Time (Source) Location / / Volume Laterality Blood specimen 04/17/2011 3:29 AM 011 3:39 (specimen) EDT AM EDT Fritz Christianson MD HEMATOLOGY ORDERABLES Performing Organization Address City/State/ZIP Code Phon e Number [place] [phone] CERNER MILLENNIUM Phenytoin level, total and free (04/16/2011 6:15 PM EDT) athologist Signature Phenytoin Lvl 14.9 10.0 - CERNER 20.0 mg/L MILLENNIUM Comment: Theraputic range: ??10-20 mg/L Toxic: ??> 25 mg/L Patients with renal dysfunction (e.g.cre atinine clearance < 30 mls/min) may show falsely elevated results due to acc umulation of metabolites in renal failure Phenytoin, Free Not Perf 1.00 - 2.00 mg/L CERNER MILLENNIUM Comment: Free DPH not needed. Dr Wilson spoke with provider. Therapeutic range: ? Free phenytoin: ??1.00-2.00 mg/L ? % Free phenytoin: ??8-12% Toxic range: ? Free phenytoin: ??>3.00 mg/L Phenytoin Free% Not Calculated 8 - 12 % CERNER [place] LLENNIUM Specimen Anatomical Collection Method Collection Time Receive d Time (Source) Location / / Volume Laterality Blood specimen 04/16/2011 6:15 PM 011 6:36 (specimen) EDT PM EDT Fritz Christianson MD CHEMISTRY ORDERABLES Performing Organization Address City/State/[place] [address] CERNER MILLENNIUM (ABNORMAL) Cardiac Enzymes (04/16/2011 6:15 PM EDT) athologist Signature Troponin-T 4.97 (H) <=0.03 CERNER ng/mL [facility] Comment: 0.03 ng/mL: Represents the 99th percenti [...] of suspicion is high. Reference: [Myocardial infarction redefined a consensus document of the Joint [place] Society of Cardiology/[place] College of Cardiology Committee for the redefinition of myocardial infarction. Journal of the [place] College of Cardi ology 2000; 36: 959-969] CK, Total 1374 (H) 0 - 200 unit/L CERNER MILLENNI UM Specimen Anatomical Collection Method Collection Time Receive d Time (Source) Location / / Volume Laterality Blood specimen 04/16/2011 6:15 PM 011 6:36 (specimen) EDT PM EDT Fritz Christianson MD CHEMISTRY ORDERABLES Performing Organization Address City/State/ZIP Code Phon e Number [place] [phone] MICHELL [employer] MRI BRAIN WO CONTRAST (04/16/2011 12:25 PM EDT) Anatomical Region Laterality Modality Head Magnetic Resonance Specimen (Source) Anatomical Collection Method Collection Time Re ceived Time Location / / Volume Laterality 04/16/2011 12:25 PM EDT Impressions 04/16/2011 9:34 PM EDT IMPRESSION: ?? 1. No evidence for acute strokes. ?? 2. Encephalomalacia and gliosis in the i nferior left temporal lobe likely related to previous trauma. ?? 3. Scattered foci of T2 signal alteratio n elsewhere, which have a nonspecific appearance and may be related to previou s trauma, although small vessel ischemic disease is also in the differen tial diagnosis. Narrative 04/16/2011 9:34 PM EDT MRI OF THE BRAIN WITHOUT CONTRAST, 04/16: ?? PREVIOUS STUDY: ??Head CT scan dated 15/09. ?? HISTORY: ??Acute stroke. ?? FINDINGS: ??No acute strokes identified. There is a focus of T2 signal alteration in the deep white matter of t he posterior right frontal lobe, which has nonspecific imaging features. ?? T2 signal alteration present in the left inferior frontal lobe may be related to a prior trauma. The ventricles and rock lci are of proportional size. No masses, mass effect, or extraaxial colle ctions. ?? Several smaller foci of T2 signal altera tion are present in the subcortical white matter of ??the high right frontal lobe and in the left insula. ?? Normal proximal intracranial flow voids are seen. ?? Mild mucosal thickening involves the eth moid air cells bilaterally. ?? Procedure Note Junaid Doss MD - 04/16/2011Formatti ng of this note might be different from the original. MRI OF THE BRAIN WITHOUT CONTRAST, 04/16: PREVIOUS STUDY: Head CT scan dated 04/15. HISTORY: Acute stroke. FINDINGS: No acute strokes identified. T here is a focus of T2 signal alteration in the deep white matter of t he posterior right frontal lobe, which has nonspecific imaging features. T2 signal alteration present in the left inferior frontal lobe may be related to a prior trauma. The ventricles and rock lci are of proportional size. No masses, mass effect, or extraaxial colle ctions. Several smaller foci of T2 signal altera tion are present in the subcortical white matter of the high right frontal l obe and in the left insula. Normal proximal intracranial flow voids are seen. Mild mucosal thickening involves the eth moid air cells bilaterally. IMPRESSION IMPRESSION: 1. No evidence for acute strokes. 2. Encephalomalacia and gliosis in the i nferior left temporal lobe likely related to previous trauma. 3. Scattered foci of T2 signal alteratio n elsewhere, which have a nonspecific appearance and may be related to previou s trauma, although small vessel ischemic disease is also in the differen tial diagnosis. Ilana Connor MD IMG MRI ORDERABLES Cerebrovascular Duplex, Bilateral (04/16/2011 12:05 PM EDT) Component Value Ref Test Analysis Performed At [facility] Range Method Time Signature VB Text VASCUBASE Report Department: Vascular Surgery Lab Patient: [id number] (JUNAID ARIAS) CPT Code: 77915 ICD-9: 434.91 Referring Physician: FRITZ CHRISTIANSON Indication: ?? Likely Right MCA stroke ICD9 Diagnosis Code: 434.91 Findings: Right ICA Proximal ?PSV (cm/s): 54 ?EDV (cm/s): 23 ?ICA/CCA: 0.9 ?Plaque Structure: Mixed Echogenic ?Plaque Surface: Smooth ?%Stenosis: <15% ICA Middle ?PSV (cm/s): 53 ?EDV (cm/s): 23 ?ICA/CCA: 0.9 ICA Distal ?PSV (cm/s): 44 ?EDV (cm/s): 18 ?ICA/CCA: 0.8 CCA Distal ?PSV (cm/s): 57 ?EDV (cm/s): 17 ?%Stenosis: Minimal CCA Proximal ?PSV (cm/s): 62 ?EDV (cm/s): 10 External Carotid Artery ?PSV (cm/s): 60 ?EDV (cm/s): 10 ?%Stenosis: <50% Vertebral ?PSV (cm/s): 41 ?EDV (cm/s): 14 Left ICA Proximal ?PSV (cm/s): 47 ?EDV (cm/s): 17 ?ICA/CCA: 1.0 ?Plaque Structure: Echogenic ?Plaque Surface: Smooth ?%Stenosis: <15% ICA Middle ?PSV (cm/s): 42 ?EDV (cm/s): 15 ?ICA/CCA: 0.9 ICA Distal ?PSV (cm/s): 28 ?EDV (cm/s): 9 ?ICA/CCA: 0.6 CCA Distal ?PSV (cm/s): 49 ?EDV (cm/s): 16 ?%Stenosis: Minimal CCA Proximal ?PSV (cm/s): 73 ?EDV (cm/s): 14 External Carotid Artery ?PSV (cm/s): 55 ?EDV (cm/s): 10 ?%Stenosis: Minimal Vertebral ?PSV (cm/s): 42 ?EDV (cm/s): 20 Interpretation: RIGHT: There is smooth mixed echogenic plaque in the carotid bifurcation/proximal interna l carotid artery causing <15% stenosis when compared to the more distal internal carotid artery. The bifurcation level is in the mid neck. LEFT: There is minimal smooth plaque in the proximal i nternal carotid artery causing <15% stenosis when c ompared to the more distal internal carotid artery. The bifurcation level is in the mid neck. Vertebral Artery Data: Antegrade blood flow with normal Doppler waveforms and velocities bilaterally. Accuracy Data: The following statistics are based on comparisons performe d at [facility] between noninvasive carotid artery d uplex data and arteriographic evaluation of the same patients from [phone]. Q / A Sens. Spec. PPV NPV Accuracy Carotid 93% 98% 97% 95% 96% Signed by KING GILL on 2011-04-21 02:27:47 PM VB Text End of Report VASCUBASE Report Specimen (Source) Anatomical Collection Method Collection Time Re ceived Time Location / / Volume Laterality 04/16/2011 12:05 PM EDT Fritz Christianson MD VASCULAR ORDERABLES Performing Organization Address City/State/ZIP Code Phon e Number [facility] Echocardiogram with bubble study (04/16/2011 10:28 AM EDT) P athologist Signature EF 52 [facility] Anatomical Region Laterality Modality Other Specimen (Source) Anatomical Location Collection Method / Collectio n Time Received Time / Laterality Volume 04/16/2011 Narrative 04/16/2011 10:51 AM EDT Procedure: ? Transthoracic Echocardiogram ? Patient: ? JUANAKIRSTIN QUIROGA Gonzalo ? (Age): 1955(55) Med Rec#: ?[id number] ?Sex: ?M ? Site Loc: ?[facility] ?Ht / Wt: ??162(cm)/63(kg) Pt. Loc: ? CCU ? BSA: ?1.68 Study Date: ?04/16/2011 ?Pt. Type: Inpatient Tape: ? Referring: Fritz Christianson Referring: LEVON RAMOS J Partnership Marketing Manager: Miguel Lockett [facility] Partnership Marketing Manager 2: Marciano Sandoval Diagnosis: ??Acute OK (410.90) CPT Code(s): ??Echo Full (96979), ??Spec tral Doppler (45777), ??Color Doppler (08761), ??Saline Contrast (000) , Indication(s): ??Myocardial infarction Rhythm: SUMMARY: 1. Global left ventricular systolic func tion is mildly reduced. ??The quantitative left ventricular ejection f raction is52% byn Simpsons biplane ??There are left ventricular seg mental wall motion abnormalities present, as shown in the diagram below. 2. Right ventricular chamber size, wall thickness, and systolic function are within normal limits. 3. There is no hemodynamically significa nt valve disease. 4. See remainder of report for additiona l findings. FINDINGS: Left Ventricle ?The left ventricular chamber size is normal. ?Left ventricular wall thickness is normal. ?Global left ventricular systolic f unction is mildly reduced. ?The quantitative left ventricular ejection fraction is52% byn Simpsons biplane ?There are left ventricular segment al wall motion abnormalities present, as shown in the diagram below. ?Doppler assessment is consistent w ith elevated left sided filling pressure. ?The ??basal anterolateral, basal i nferolateral, mid inferolateral and apical lateral wall segments are hypokin etic. ?The ??basal inferior and mid anter olateral wall segments are akinetic. ?A false chord is observed in the l eft ventricle. Left Atrium ?The left atrium is normal in size. ?There is no evidence of a patent f oramen ovale with agitated saline contrast. Right Ventricle ?Right ventricular chamber size, wa ll thickness, and systolic function are within normal limits. ?The estimated pulmonary artery sys tolic pressure is 30 mmHg. ?The estimated right atrial pressur e is 3 mmHg. Right Atrium ?The right atrium is normal in size . Aortic Valve ?The aortic valve is tricuspid. ?There is no evidence of aortic kaiden ve stenosis. ?Mild (1+/4+) aortic valve regurgit ation is present. Mitral Valve ?The mitral valve appears normal in structure and function. ?There is anterior and posterior mi tral annular calcification. ?There is mild (1+/4+) mitral regur gitation present. Tricuspid Valve ?The tricuspid valve appears normal in structure and function. ?There is mild (1+/4+) tricuspid re gurgitation present. Pulmonic Valve ?The pulmonic valve appears normal in structure and function. Pericardium ?The pericardium appears normal and there is no evidence of a pericardial effusion. Aorta ?The aortic root is normal in size. ?The ascending aorta is normal in s ize. Pulmonary Artery ?The main pulmonary artery appears normal. Venous ?The inferior vena cava appears nor mal in size. ?There is a greater than 50% respir atory change in the inferior vena cava dimension. Misc ?There is no hemodynamically signif icant valve disease. ?See remainder of report for additi onal findings. ?Two-dimensional echo, spectral Dop pler and color Doppler performed. Wall Motion: Segment Name ?Rest ? Base-Anteroseptal ?? Normal ? Base-Anterior ? Normal ? Base-Anterolateral ??Hypokinetic ? Base-Posterolateral Hypokinetic ? Base-Inferior ? Akinetic ? Base-Inferoseptal ?? Normal ? Mid-Anteroseptal ?Normal ? Mid-Anterior ?Normal ? Mid-Anterolateral ?? Akinetic ? Mid-Posterolateral ??Hypokinetic ? Mid-Inferior ?Normal ? Mid-Inferoseptal ?Normal ? [place]-Septal ? Normal ? [place]-Anterior ? Normal ? [place]-Lateral ?Hypokinetic ? [place]-Inferior ? Normal ? [place]-Tip ?Normal ? Chambers ?Value ?Units (Range) ? EF ??Bi-p Simp ? 52 ? % (55 to 80) ? IVSd 2D ? 1.1 ?cm ? LVIDd 2D ?4.6 ?cm ? PWd 2D ?0.8 ?cm ? LVIDs 2D ?3.3 ?cm ? LVFS 2D ? 28 ? % ? LA area ? 19 ? cm2 (<21) ? RA area ? 11 ? cm2 (<18) ? Ao root ? 3.3 ?cm (2.1 to 3.6) ? Asc Ao ?2.8 ?cm (2 to 3.5) ? Mitral Valve ?Value ?Units (Range) ? E peak ?0.6 ?m/sec ? E/A ratio ? 1.2 ?ratio ? MVDT ?183 ?msec ? E1 ?0.06 ? m/sec ? E/E1 ?10 ? ratio ? Tricuspid/Pulmonic Valves ?Value ?Units (Range) ? TR peak chon ? 2.6 ?m/sec ? RAP ? 3 ?mmHg ? RVSP/PASP ? 30 ? mmHg ? This report has been electronically sign ed by: _ Carlos Núñez M.D. ? 04/16/2011 10:50:24 Images reviewed and interpretation ronald santos [facility] Cardiac Ultrasound Laboratory Procedure Note 04/16/2011 Procedure: Transthoracic Echocardiogram Patient: JUANA PLATA(Age): [birth year]) Med Rec#: [id number] Sex: M [place] Loc[place] [facility] [place]t / Wt: 162(cm)/63(kg) Pt. Loc: U BSA: 1.68 Study Date: 04/16/2011 Pt. Type: Inpatie nt Tape: Referring: Fritz Christianson Referring: LEVON RAMOS J Partnership Marketing Manager: Miguel Lockett [facility] Partnership Marketing Manager 2: Marciano Sandoval Diagnosis: Acute OK (410.90) CPT Code(s): Echo Full (87101), Spectral Doppler (70542), Color Doppler (89940), Saline Contrast (000), Indication(s): Myocardial infarction Rhythm: SUMMARY: 1. Global left ventricular systolic func tion is mildly reduced. The quantitative left ventricular ejection f raction is52% byn Simpsons biplane There are left ventricular segme ntal wall motion abnormalities present, as shown in the diagram below. 2. Right ventricular chamber size, wall thickness, and systolic function are within normal limits. 3. There is no hemodynamically significa nt valve disease. 4. See remainder of report for additiona l findings. FINDINGS: Left Ventricle The left ventricular chamber size is no rmal. Left ventricular wall thickness is norm al. Global left ventricular systolic functi on is mildly reduced. The quantitative left ventricular eject ion fraction is52% byn Simpsons biplane There are left ventricular segmental wa ll motion abnormalities present, as shown in the diagram below. Doppler assessment is consistent with e levated left sided filling pressure. The basal anterolateral, basal inferola teral, mid inferolateral and apical lateral wall segments are hypokin etic. The basal inferior and mid anterolatera l wall segments are akinetic. A false chord is observed in the left v entricle. Left Atrium The left atrium is normal in size. There is no evidence of a patent forame n ovale with agitated saline contrast. Right Ventricle Right ventricular chamber size, wall th ickness, and systolic function are within normal limits. The estimated pulmonary artery systolic pressure is 30 mmHg. The estimated right atrial pressure is 3 mmHg. Right Atrium The right atrium is normal in size. Aortic Valve The aortic valve is tricuspid. There is no evidence of aortic valve st enosis. Mild (1+/4+) aortic valve regurgitation is present. Mitral Valve The mitral valve appears normal in stru cture and function. There is anterior and posterior mitral annular calcification. There is mild (1+/4+) mitral regurgitat ion present. Tricuspid Valve The tricuspid valve appears normal in s tructure and function. There is mild (1+/4+) tricuspid regurgi tation present. Pulmonic Valve The pulmonic valve appears normal in st ructure and function. Pericardium The pericardium appears normal and ther e is no evidence of a pericardial effusion. Aorta The aortic root is normal in size. The ascending aorta is normal in size. Pulmonary Artery The main pulmonary artery appears jnaette l. Venous The inferior vena cava appears normal i n size. There is a greater than 50% respiratory change in the inferior vena cava dimension. Misc There is no hemodynamically significant valve disease. See remainder of report for additional findings. Two-dimensional echo, spectral Doppler and color Doppler performed. Wall Motion: Segment Name Rest Base-Anteroseptal Normal Base-Anterior Normal Base-Anterolateral Hypokinetic Base-Posterolateral Hypokinetic Base-Inferior Akinetic Base-Inferoseptal Normal Mid-Anteroseptal Normal Mid-Anterior Normal Mid-Anterolateral Akinetic Mid-Posterolateral Hypokinetic Mid-Inferior Normal Mid-Inferoseptal Normal [place]-Septal Normal [place]-Anterior Normal [place]-Lateral Hypokinetic [place]-Inferior Normal [place]-Tip Normal Chambers Value Units (Range) EF Bi-p Simp 52 % (55 to 80) IVSd 2D 1.1 cm LVIDd 2D 4.6 cm PWd 2D 0.8 cm LVIDs 2D 3.3 cm LVFS 2D 28 % LA area 19 cm2 (<21) RA area 11 cm2 (<18) Ao root 3.3 cm (2.1 to 3.6) Asc Ao 2.8 cm (2 to 3.5) Mitral Valve Value Units (Range) E peak 0.6 m/sec E/A ratio 1.2 ratio MVDT 183 msec E1 0.06 m/sec E/E1 10 ratio Tricuspid/Pulmonic Valves Value Units (Range) TR peak chon 2.6 m/sec RAP 3 mmHg RVSP/PASP 30 mmHg This report has been electronically sign ed by: _ Carlos Núñez M.D. 04/16/2011 10:50: 24 Images reviewed and interpretation ver ied [facility] Cardiac Ultrasound Laboratory Fritz Christianson MD ECHO ORDERABLES XR CHEST PA OR AP- 1 VIEW (04/16/2011 6:27 AM EDT) Anatomical Region Laterality Modality Chest N/A Radiographic Imaging Specimen (Source) Anatomical Collection Method Collection Time Re ceived Time Location / / Volume Laterality 04/16/2011 6:27 AM EDT Impressions 04/19/2011 2:29 PM EDT IMPRESSION: ??No acute cardiopulmonary process. ?? Film and interpretation reviewed by the attending Narrative 04/19/2011 2:29 PM EDT PORTABLE AP VIEW OF THE CHEST, 1 AT 0600 HOURS: HISTORY: ??Chest pain. COMPARISON: ??None. FINDINGS: ??Given the technique, the margot gs are clear. ??The mediastinal and cardiac contours are within normal limit s. ?? Procedure Note Deysi Hemphill MD - 04/19/2011Formatt ing of this note might be different from the original. PORTABLE AP VIEW OF THE CHEST, 1 AT 0600 HOURS: HISTORY: Chest pain. COMPARISON: None. FINDINGS: Given the technique, the lungs are clear. The mediastinal and cardiac contours are within normal limit s. IMPRESSION IMPRESSION: No acute cardiopulmonary pro cess. Film and interpretation reviewed by the attending Heike Woodall MD IMG DX ORDERABLES (ABNORMAL) CARDIAC ENZYMES (04/16/2011 3:55 AM EDT) P athologist Signature Troponin-T 5.22 (H) <=0.03 CERNER ng/mL [facility] Comment: result rechecked-WC 0.03 ng/mL: Represents the 99th percenti le [...] of suspicion is high. Reference: [Myocardial infarction redefined a consensus document of the Joint [place] Society of Cardiology/[place] College [employer]iology Committee for the redefinition of myocardial infarction. Journal of the [place] College of Cardi ology 2000; 36: 959-969] CK, Total 2152 (H) 0 - 200 unit/L JOYCENER MILLENNI UM Specimen Anatomical Collection Method Collection Time Receive d Time (Source) Location / / Volume Laterality Blood specimen 04/16/2011 3:55 AM 011 3:58 (specimen) EDT AM EDT Fritz Christianson MD CHEMISTRY ORDERABLES Performing Organization Address City/[facility]/ZIP Code Phon e Number [place]ARD [place] [phone] CERNER MILLENNIUM (ABNORMAL) REFLEX LAB-A-DIFF (04/16/2011 3:55 AM EDT) [facility] gist Method Time Signature Neutrophils % 77.7 (H) 34.0 - CERNER 71.0 % MILLENNIUM Neutr Abs (ANC) 5.47 1.50 - CERNER 6.30 MILLENNIUM x10(3)/mc L Lymphocytes % 12.8 (L) 19.0 - CERNER 53.0 % MILLENNIUM Lymphocytes Abs 0.9 (L) 1.0 - 3.6 CERNER x10(3)/mc MILLENNIUM L Monocytes % 8.0 4.0 - CERNER 13.0 % MILLENNIUM Monocyte Abs 0.6 0.2 - 1.0 CERNER x10(3)/mc MILLENNIUM L Eosinophils % 1.1 0.0 - 7.0 CERNER % MILLENNIUM Eosinophils Abs 0.1 0.0 - 0.5 CERNER x10(3)/mc MILLENNIUM L Basophils % 0.3 0.0 - 2.0 CERNER % MILLENNIUM Basophils Abs 0.0 0.0 - 0.2 CERNER x10(3)/mc MILLENNIUM L Immature Gran % 0.10 0.00 - CERNER 0.66 % MILLENNIUM Comment: Immature granulocytes(IG's)percentage an d absolute count will include metamyelocytes, myelocytes, and promyelo cytes. Blood smears from CBCs yielding IG's will be scanned manually for concor dance. If this scan disagrees with the automated IG or if promyelocytes are not ed, a manual differential will be performed. Lee Ann Gran Abs 0.01 0.00 - 0.05 x10(3)/mcL CER NER MILLENNIUM Specimen Anatomical Collection Method Collection Time Receive d Time (Source) Location / / Volume Laterality Blood specimen 04/16/2011 3:55 AM 011 3:56 (specimen) EDT AM EDT Fritz Christianson MD HEMATOLOGY ORDERABLES Performing Organization Address City/State/ZIP [place] [address] CERNER MILLENNIUM (ABNORMAL) BMP W/FASTING GLUCOSE (04/16/2011 3:55 AM EDT) athologist Signature Glucose 142 (H) 65 - 99 CERNER Fasting mg/dL MILLENNIUM Comment: ?Fasting* Glucose Interpretive C riteria Normal ?65-99 mg/dL Impaired Fasting glucose ?100-125 mg/dL Consistent with Diabetes Mellitus ? >or= 126 mg/dL *Fasting is defined as no caloric intake for at least 8 hours In the absence of unequivocal hypergly cemia a plasma glucose value of >or= 126 mg/dL should be repeated on a subseq u day. Diagnosis and Classification of Diabetes Mellitus, Position Statement from the [place] Diabetes Association. ??Diabete s Care, Volume 33, Supplement 1, Nov 2009 BUN 13 10 - 20 mg/dL CERNER MILLENNIU M Creatinine 0.85 0.80 - 1.50 mg/dL CERNER MILL ENNIUM Sodium 135 135 - 145 mmol/L CERNER OMA NIUM Potassium 4.0 3.5 - 5.0 mmol/L CERNER OMA NIUM Comment: Please note: ??Patients with WBC >100,00 0 may have falsely elevated Potassium levels. ??For accurate Potassium quantif ication in these patients send serum separator tube (gold top) for subsequent determinations. ??Contact the Clinical Chemistry Laboratory if there are any qu estions. Chloride 107 98 - 107 mmol/L CERNER MILLENN IUM CO2 20 (L) 22 - 31 mmol/L CERNER MILLENNI UM Anion Gap 8 5 - 15 mmol/L CERNER MILLENNIU M Calcium 8.6 8.5 - 10.5 mg/dL CERNER OMA NIUM Estimated GFR >60 >=60 CERNER MILLENNIU M Comment: The National Kidney Disease Education Pr ogram (NKDEP) has recommended all laboratories report estimated GFR (eGFR) along with plasma creatinine measurements to assist you with recognit ion of early kidney disease. Caveats: ??Plasma creatinine should be a t steady-state (unchanged within the past week). For patient s multiply eGFR by 1.2.MDRD equation has not been validated for pediatric pat ients and is only valid for patients with age >= 18 years. At present, NKDEP does NOT recommend usi ng the MDRD equation for drug dosing purposes and pharmacists should continue to use their current dosing methods. In addition, numerical eGFR values great er than 60 ml/min/1.73 square meters should be treated as > 60, and not an ex act number due to greater inaccuracies at these higher values. Per NKDEP, they classify normal renal function as any GFR >60ml/min/1.73 square meters; chronic kidney disease wh en GFR <60, and renal failure when GFR <15. ??This calculation may not be valid for patients with atypical muscle mass (very lean or obese), acute renal failur e, and in patients with diabetic kidney disease. References: http://nkdep.nih.gov/resources/NKDEP_Sug gestn4Labs_0606_508.pdf http://www.kidney.org/professionals/kls/ pdf/faq_gfr.pdf Specimen Anatomical Collection Method Collection Time Receive d Time (Source) Location / / Volume Laterality Blood specimen 04/16/2011 3:55 AM 011 3:56 (specimen) EDT AM EDT Fritz Christianson MD CHEMISTRY ORDERABLES Performing Organization Address City/[facility] [place] [address] [facility] Phosphorus (04/16/2011 3:55 AM EDT) P athologist Signature Phosphorus 3.4 2.5 - 4.5 CERNER mg/dL MILLENNIUM Specimen Anatomical Collection Method Collection Time Receive d Time (Source) Location / / Volume Laterality Blood specimen 04/16/2011 3:55 AM 011 3:56 (specimen) EDT AM EDT Fritz Christianson MD CHEMISTRY ORDERABLES Performing Organization Address City/[facility] [place] [address] CERNER MILLENNIUM Magnesium (04/16/2011 3:55 AM EDT) athologist Signature Magnesium 0.73 0.69 - 1.07 CERNER mmol/L MILLENNIUM Specimen Anatomical Collection Method Collection Time Receive d Time (Source) Location / / Volume Laterality Blood specimen 04/16/2011 3:55 AM 011 3:56 (specimen) EDT AM EDT Fritz Christianson MD CHEMISTRY ORDERABLES Performing Organization Address City/[facility]/ZIP Code Phon e Number [address] CERNER MILLENNIUM (ABNORMAL) CBC (with Diff) (04/16/2011 3:55 AM EDT) athologist Signature WBC 7.0 4.0 - 10.0 CERNER x10(3)/mcL MILLENNIUM RBC 4.24 (L) 4.63 - CERNER 6.08 MILLENNIUM x10(6)/mcL Hemoglobin 12.5 (L) 13.7 - CERNER 17.5 gm/dL MILLENNIUM Hematocrit 36.7 (L) 40.0 - CERNER 51.0 % MILLENNIUM MCV 86.6 79.0 - CERNER 92.0 fL MILLENNIUM MCH 29.5 25.6 - CERNER 32.2 pg MILLENNIUM MCHC 34.1 32.0 - CERNER 36.5 gm/dL MILLENNIUM Platelets 127 (L) 145 - 370 CERNER x10(3)/mcL MILLENNIUM RDWSD 42.4 35.0 - CERNER 46.0 fL MILLENNIUM RDWCV 13.4 10.9 - CERNER 14.4 % MILLENNIUM MPV 9.8 9.0 - 12.0 CERNER fL MILLENNIUM Specimen Anatomical Collection Method Collection Time Receive d Time (Source) Location / / Volume Laterality Blood specimen 04/16/2011 3:55 AM 011 3:56 (specimen) EDT AM EDT Fritz Christianson MD HEMATOLOGY ORDERABLES Performing Organization Address City/[facility]/ZIP [place] [address] CERNER MILLENNIUM Hemoglobin A1c (04/16/2011 3:55 AM EDT) athologist Signature Hemoglobin A1C 5.0 4.3 - 6.1 [facility] Est Avg Gluc 97 mg/dL [facility] Comment: eAG equivalents for HbA1c percentages: HbA1c(%) ?eAG(mg/dL) 6.0 ?126 6.5 ?140 7.0 ?154 7.5 ?169 8.0 ?183 8.5 ?197 9.0 ?212 9.5 ?226 10.0 ? 240 Limitations: The eAG calculation has not been validated on women, individuals below 18 years old and above 70 years old, and individuals with hemoglobinopathies. Additional resources are available on [facility] ADA website: ??http://professional.diabetes.org/gluc osecalculator.aspx Reference: Hua PRITCHETT, Jessica J, Nidhi R, et al. ??Tr anslating the A1C assay into estimated average glucose values. ??Diabetes Care 2008:31(8):3727-6378. Specimen Anatomical Collection Method Collection Time Receive d Time (Source) Location / / Volume Laterality Blood specimen 04/16/2011 3:55 AM 011 (specimen) EDT 11:39 AM EDT Fritz Christianson MD CHEMISTRY ORDERABLES Performing Organization Address City/State/ZIP Code Phon e Number [place] [phone] [facility] [address] [facility] Lipid panel (fasting) (04/16/2011 3:55 AM EDT) P athologist Signature Chol, Total 153 <=199 mg/dL CERNER MILLENNIUM Comment: Recommendations of the NCEP Adult Treatm ent Panel for the following risk cutoff thresholds for the [place] populatio n: Desirable: <200 mg/dL Borderline High: 200-239 mg/dL High: > or = 240 mg/dL Triglycerides 109 <=149 mg/dL CERNER MILLENN IUM Comment: Reference Range: Normal triglycerides: ??<150 mg/dL Borderline high: ??150-199 mg/dL High: ??200-499 mg/dL Very high: ??>ot=162 mg/dL LOU 2001; 285(19):2598-8356 HDL 45 >=40 mg/dL CERNER MILLENNIUM Comment: Reference range: ??Low HDL: ?? < 40 mg/dL ??Normal: ?40-60 mg/dL ??Desirable: > 60 mg/dL LOU 2001; 285(19):1401-8272 LDL Cholesterol 86 <=99 mg/dL CERNER OMA NIUM Comment: Reference range: ?? Optimal: ?<100 mg/dL ?? Near Optimal/Above Optimal: ?? 100-1 29 mg/dL ?? Borderline high: ?130-159 mg/dL ?? High: ? 160-189 mg/dL ?? Very high: ?>jz=884 mg/dL LOU 2001: 285(19):6741-4231 Chol/HDL Ratio 3.4 ratio CERNER MILLENNI UM Comment: A Cholesterol to HDL ratio below 4:1 is desirable. ??Studies suggest that increased CAD risk occurs at ratios abov e 5 for females and above 6 for men. ? [place] Heart Association ??(htt p://www.americanheart.org) ? Gris Int Med, 1994; 121:641 ? AM J Med, 1998; 105(1A):48S Specimen Anatomical Collection Method Collection Time Receive d Time (Source) Location / / Volume Laterality Blood specimen 04/16/2011 3:55 AM 011 3:56 (specimen) EDT AM EDT Fritz Christianson MD CHEMISTRY ORDERABLES Performing Organization Address City/[facility]/ZIP [place] [address] CERNER MILLENNIUM (ABNORMAL) APTT (04/16/2011 3:55 AM EDT) athologist Signature PTT 23 (L) 25 - 37 sec CERNER MILLENNIUM Comment: Recommended therapeutic PTT range for fu ll dose unfractionated heparin is 80-114 seconds. Specimen Anatomical Collection Method Collection Time Receive d Time (Source) Location / / Volume Laterality Blood specimen 04/16/2011 3:55 AM 011 3:56 (specimen) EDT AM EDT Fritz Christianson MD HEMATOLOGY ORDERABLES Performing Organization Address City/[facility] [place] [address] CERNER MILLENNIUM Protime-INR (04/16/2011 3:55 AM EDT) athologist Signature PT 14.6 12.3 - 14.7 CERNER sec MILLENNIUM Comment: [facility] Transfusion Committee Guidelines: I NR less than 2.0, PTT less than OR equal to 43.5 seconds, or Fibrinogen gre ater than or equal to 100 mg/dl indicate adequate procoagulant activity for hemostasis in patients without underlying bleeding disorders. INR 1.1 0.9 - 1.1 [facility] MILLENNIUM Specimen Anatomical Collection Method Collection Time Receive d Time (Source) Location / / Volume Laterality Blood specimen 04/16/2011 3:55 AM 011 3:56 (specimen) EDT AM EDT Fritz Christianson MD HEMATOLOGY ORDERABLES Performing Organization Address City/[facility]/ZIP [place] [address] CERNER MILLENNIUM (ABNORMAL) Hepatic function panel (04/16/2011 3:55 AM EDT) athologist Signature Total Protein 5.5 (L) 6.4 - 8.3 CERNER gm/dL MILLENNIUM Albumin 3.7 3.2 - 5.2 CERNER gm/dL MILLENNIUM AST 162 (H) 0 - 39 CERNER unit/L MILLENNIUM ALT 44 0 - 55 CERNER unit/L MILLENNIUM Alk Phos 146 (H) 40 - 120 CERNER unit/L MILLENNIUM Total 0.4 0.2 - 1.3 CERNER Bilirubin mg/dL MILLENNIUM Bili, Direct 0.1 0.0 - 0.3 CERNER mg/dL MILLENNIUM Specimen Anatomical Collection Method Collection Time Receive d Time (Source) Location / / Volume Laterality Blood specimen 04/16/2011 3:55 AM 011 3:56 (specimen) EDT AM EDT Fritz Christianson MD CHEMISTRY ORDERABLES Performing Organization Address City/[facility]/ZIP [place] [address] CERNER MILLENNIUM TSH (04/16/2011 3:55 AM EDT) athologist Signature TSH 0.55 0.27 - 4.20 CERNER mcIU/mL [facility] Specimen Anatomical Collection Method Collection Time Receive d Time (Source) Location / / Volume Laterality Blood specimen 04/16/2011 3:55 AM 011 3:56 (specimen) EDT AM EDT Fritz Christianson MD CHEMISTRY ORDERABLES Performing Organization Address City/[facility] [place] [address] CERNER MILLENNIUM (ABNORMAL) Urinalysis (on admission) (04/15/2011 10:10 PM EDT) [facility] gist Method Time Signature Glucose UA Negative Negative CERNER mg/dL MILLENNIUM Protein UA Trace (A) Neg mg/dL CERNER MILLENNIUM Bilirubin UA Negative Negative CERNER mg/dL MILLENNIUM Urobilinogen UA Normal mg/dL CERNER MILLENNIUM pH UA 5.5 5.0 - 8.0 CERNER MILLENNIUM Blood UA Small (A) Neg CERNER MILLENNIUM Ketones UA Negative mg/dL CERNER MILLENNIUM Nitrite UA Negative CERNER MILLENNIUM Leukocytes UA Negative mcL CERNER MILLENNIUM Appearance UA Clear Clear CERNER MILLENNIUM Spec [place] UA >1.035 (H) 1.002 - CERNER 1.030 MILLENNIUM Color UA Yellow Yellow CERNER MILLENNIUM RBC UA Not Present 0 - 3 CERNER MILLENNIUM WBC UA <1 0 - 3 /HPF CERNER MILLENNIUM Specimen Anatomical Collection Method Collection Time Receive d Time (Source) Location / / Volume Laterality Urine specimen 04/15/2011 10:10 1 (specimen) PM EDT 10:16 PM EDT Fritz Christianson MD URINE ORDERABLES Performing Organization Address City/State/ZIP Code Phon e Number [place] [phone] CERNER MILLENNIUM EKG 12-LEAD Is a rhythm strip needed?: No; Reason for Exam:: Chest Pain (04/15/2011 8:15 PM EDT) Component Value Ref Range Test Analysis Performed Pathologis t Method Time At Signature Ventricular rate 57 BPM MUSE SYSTEM Atrial Rate 57 BPM MUSE SYSTEM P-R Interval 142 ms MUSE SYSTEM QRS Duration 76 ms MUSE SYSTEM Q-T Interval 456 ms MUSE SYSTEM QTC Calculated 443 ms MUSE SYSTEM (Bezet) Calculated P [place] 60 degrees MUSE SYSTEM Calculated R [place] 13 degrees MUSE SYSTEM Calculated T [place] 15 degrees MUSE SYSTEM INTERPRETATION Sinus bradycardia MUSE SY STEM Nonspecific ST and T wave abnormality Inferior infarct (cited on or before 15-APR-2011) Abnormal ECG When compared with ECG of 15-APR-2011 18:07, (unconfirmed) No significant change was found Confirmed by MD TIM, JONN (55) on 04/16/2011 2:54:08 PM Specimen Anatomical Collection Method Collection Time Receive d Time (Source) Location / / Volume Laterality 04/15/2011 8:15 PM 1 2:54 EDT PM EDT Fritz Christianson MD ECG ORDERABLES Performing Organization Address City/State/ZIP Code Phon e Number MUSE SYSTEM (ABNORMAL) Cardiac Enzymes (04/15/2011 8:15 PM EDT) P athologist Signature Troponin-T 9.25 (H) <=0.03 CERNER ng/mL MILLENNIUM Comment: result rechecked-[facility] 0.03 ng/mL: Represents the 99th percenti le [...] of suspicion is high. Reference: [Myocardial infarction redefined a consensus document of the Joint [place] Society of Cardiology/[place] [employer] Committee for the redefinition of myocardial infarction. Journal of the [place] College of Cardi ology 2000; 36: 959-969] CK, Total 3558 (H) 0 - 200 unit/L CERNER MILLENNI UM Comment: result rechecked-[facility] Specimen Anatomical Collection Method Collection Time Receive d Time (Source) Location / / Volume Laterality Blood specimen 04/15/2011 8:15 PM 011 8:20 (specimen) EDT PM EDT Fritz Christianson MD CHEMISTRY ORDERABLES Performing Organization Address City/State/[facility] Code Phon e Number [place] [phone] CERNER MILLENNIUM (ABNORMAL) Levetiracetam level (04/15/2011 8:15 PM EDT) [facility] Method Time Signature Levetiracetam Lvl <2.0 (L) 12.0 - CERNER 46.0 MILLENNIUM mcg/mL Comment: Test Performed by: [facility] [address], [place] [address] Whiteprinting Machine Operator: Brandy Mcmullen, Ph. D. Specimen Anatomical Collection Method Collection Time Receive d Time (Source) Location / / Volume Laterality Blood specimen 04/15/2011 8:15 PM 011 (specimen) EDT 10:03 PM EDT Fritz Christianson MD CHEMISTRY ORDERABLES Performing Organization Address City/State/ZIP [place] [address] CERNER MILLENNIUM (ABNORMAL) Topiramate level (04/15/2011 8:15 PM EDT) [facility] Method Time Signature Topiramate Lvl <2.0 (L) 2.0 - 20.0 CERNER mcg/mL MILLENNIUM Comment: Test Performed by: [facility] Dpt of Lab Med and Pathology [address] [place] [address] Whiteprinting Machine Operator: Clif ventura III, M.D. Specimen Anatomical Collection Method Collection Time Receive d Time (Source) Location / / Volume Laterality Blood specimen 04/15/2011 8:15 PM 011 (specimen) EDT 10:02 PM EDT Fritz Christianson MD CHEMISTRY ORDERABLES Performing Organization Address City/[facility]/ZIP Code Phon e Number [address] CERNER MILLENNIUM Phenytoin level, total (04/15/2011 8:15 PM EDT) athologist Signature Phenytoin Lvl 12.4 10.0 - CERNER 20.0 mg/L MILLENNIUM Comment: Theraputic range: ??10-20 mg/L Toxic: ??> 25 mg/L Patients with renal dysfunction (e.g.cre atinine clearance < 30 mls/min) may show falsely elevated results due to acc umulation of metabolites in renal failure Specimen Anatomical Collection Method Collection Time Receive d Time (Source) Location / / Volume Laterality Blood specimen 04/15/2011 8:15 PM 011 8:20 (specimen) EDT PM EDT Fritz Christianson MD CHEMISTRY ORDERABLES Performing Organization Address City/[facility]/ZIP Code Phon e Number [address] CERNER MILLENNIUM POCT GLUCOSE LAB USE ONLY (04/15/2011 6:47 PM EDT) P athologist Signature POC Glucose 139 60 - 199 CERNER mg/dL MILLENNIUM Comment: Supplemental ranges: <110 mg/dL before meals <200 mg/dL all other times of the day Specimen Anatomical Collection Method Collection Time Receive d Time (Source) Location / / Volume Laterality Blood specimen 04/15/2011 6:47 PM 011 6:47 (specimen) EDT PM EDT Fritz Christianson MD POINT OF CARE TEST ORDERABLE S Performing Organization Address City/[facility]/ZIP [place] [address] CERSpaBoomIUM (ABNORMAL) APTT Baseline Check (04/15/2011 6:30 PM EDT) P athologist Signature PTT 51 (H) 25 - 37 sec CERNER [employer] Comment: Recommended therapeutic PTT range for fu ll dose unfractionated heparin is 80-114 seconds. Specimen Anatomical Collection Method Collection Time Receive d Time (Source) Location / / Volume Laterality Blood specimen 04/15/2011 6:30 PM 011 6:39 (specimen) EDT PM EDT Heike Woodall MD HEMATOLOGY ORDERABLES Performing Organization Address City/State/[place] [address] CERSpaBoomIUM EKG 12-LEAD Is a rhythm strip needed?: No; Reason for Exam:: Chest Pain (04/15/2011 6:07 PM EDT) Component Value Ref Range Test Analysis Performed Pathologis t Method Time At Signature Ventricular rate 63 BPM MUSE SYSTEM Atrial Rate 63 BPM MUSE SYSTEM P-R Interval 144 ms MUSE SYSTEM QRS Duration 74 ms MUSE SYSTEM Q-T Interval 444 ms MUSE SYSTEM QTC Calculated 454 ms MUSE SYSTEM (Bezet) Calculated P Lanett 63 degrees MUSE SYSTEM Calculated R Lanett 17 degrees MUSE SYSTEM Calculated T Lanett 14 degrees MUSE SYSTEM INTERPRETATION Normal sinus rhythm MUSE SYSTEM Nonspecific ST and T wave abnormality Inferior infarct (cited on or before 15-APR-2011) Abnormal ECG When compared with ECG of 15-APR-2011 16:13, (unconfirmed) Serial changes of evolving Inferior infarct Present Confirmed by MD TIM, JONN ([id number]) on 04/16/2011 2:53:43 PM Specimen Anatomical Collection Method Collection Time Receive d Time (Source) Location / / Volume Laterality 04/15/2011 6:07 PM 1 2:53 EDT PM EDT Fritz Christianson MD ECG ORDERABLES Performing Organization Address City/State/ZIP Code Phon e Number MUSE SYSTEM REFLEX LAB-A-DIFF (04/15/2011 5:05 PM EDT) P athologist Signature Neutrophils % 71.0 34.0 - CERNER 71.0 % MILLENNIUM Neutr Abs (ANC) 5.84 1.50 - CERNER 6.30 MILLENNIUM x10(3)/mcL Lymphocytes % 20.0 19.0 - CERNER 53.0 % MILLENNIUM Lymphocytes Abs 1.7 1.0 - 3.6 CERNER x10(3)/mcL MILLENNIUM Monocytes % 7.5 4.0 - 13.0 CERNER % MILLENNIUM Monocyte Abs 0.6 0.2 - 1.0 CERNER x10(3)/mcL MILLENNIUM Eosinophils % 1.1 0.0 - 7.0 CERNER % MILLENNIUM Eosinophils Abs 0.1 0.0 - 0.5 CERNER x10(3)/mcL MILLENNIUM Basophils % 0.2 0.0 - 2.0 CERNER % MILLENNIUM Basophils Abs 0.0 0.0 - 0.2 CERNER x10(3)/mcL MILLENNIUM Immature Gran % 0.20 0.00 - CERNER 0.66 % MILLENNIUM Comment: Immature granulocytes(IG's)percentage an d absolute count will include metamyelocytes, myelocytes, and promyelo cytes. Blood smears from CBCs yielding IG's will be scanned manually for concor danskyler. If this scan disagrees with the automated IG or if promyelocytes are not ed, a manual differential will be performed. Lee Ann Gran Abs 0.02 0.00 - 0.05 x10(3)/mcL CER NER MILLENNIUM Specimen Anatomical Collection Method Collection Time Receive d Time (Source) Location / / Volume Laterality Blood specimen 04/15/2011 5:05 PM 011 5:27 (specimen) EDT PM EDT Heike Woodall MD HEMATOLOGY ORDERABLES Performing Organization Address City/State/[place]IP [place] [address] CERNER MILLENNIUM (ABNORMAL) Troponin T (04/15/2011 5:05 PM EDT) athologist Signature Troponin-T 0.12 (H) <=0.03 CERNER ng/mL [facility] Comment: 0.03 ng/mL: Represents the 99th percenti [...] of suspicion is high. Reference: [Myocardial infarction redefined a consensus document of the Joint [place] Society of Cardiology/[place] College of Cardiology Committee for the redefinition of myocardial infarction. Journal of the [place] College of Cardi ology 2000; 36: 959-969] Specimen Anatomical Collection Method Collection Time Receive d Time (Source) Location / / Volume Laterality Blood specimen 04/15/2011 5:05 PM 011 5:27 (specimen) EDT PM EDT Heike Woodall MD CHEMISTRY ORDERABLES Performing Organization Address City/[facility]/[place] [address] CERNER MILLENNIUM CK (04/15/2011 5:05 PM EDT) athologist Signature CK, Total 195 0 - 200 CERNER unit/L [facility] Specimen Anatomical Collection Method Collection Time Receive d Time (Source) Location / / Volume Laterality Blood specimen 04/15/2011 5:05 PM 011 5:27 (specimen) EDT PM EDT Heike Woodall MD CHEMISTRY ORDERABLES Performing Organization Address [facility] [place] [address] CERNER MILLENNIUM Glucose, random (04/15/2011 5:05 PM EDT) athologist Signature Glucose Lvl 106 60 - 199 CERNER mg/dL MILLENNIUM Comment: Diabetes: >=200 mg/dL plus symp toms Specimen Anatomical Collection Method Collection Time Receive d Time (Source) Location / / Volume Laterality Blood specimen 04/15/2011 5:05 PM 011 5:27 (specimen) EDT PM EDT Heike Woodall MD CHEMISTRY ORDERABLES Performing Organization Address City/State/[place] [address] CERNER MILLENNIUM Creatinine, serum (04/15/2011 5:05 PM EDT) athologist Signature Creatinine 0.93 0.80 - CERNER 1.50 mg/dL MILLENNIUM Estimated GFR >60 >=60 CERNER MILLENNIUM Comment: The National Kidney Disease Education Pr ogram (NKDEP) has recommended all laboratories report estimated GFR (eGFR) along with plasma creatinine measurements to assist you with recognit ion of early kidney disease. Caveats: ??Plasma creatinine should be a t steady-state (unchanged within the past week). For patient s multiply eGFR by 1.2.MDRD equation has not been validated for pediatric pat ients and is only valid for patients with age >= 18 years. At present, NKDEP does NOT recommend usi ng the MDRD equation for drug dosing purposes and pharmacists should continue to use their current dosing methods. In addition, numerical eGFR values great er than 60 ml/min/1.73 square meters should be treated as > 60, and not an ex act number due to greater inaccuracies at these higher values. Per NKDEP, they classify normal renal function as any GFR >60ml/min/1.73 square meters; chronic kidney disease wh en GFR <60, and renal failure when GFR <15. ??This calculation may not be valid for patients with atypical muscle mass (very lean or obese), acute renal failur e, and in patients with diabetic kidney disease. References: http://nkdep.nih.gov/resources/NKDEP_Sug gestn4Labs_0606_508.pdf http://www.kidney.org/professionals/kls/ pdf/faq_gfr.pdf Specimen Anatomical Collection Method Collection Time Receive d Time (Source) Location / / Volume Laterality Blood specimen 04/15/2011 5:05 PM 011 5:27 (specimen) EDT PM EDT Heike Woodall MD CHEMISTRY ORDERABLES Performing Organization Address City/[facility]/ZIP [place] [address] CERNER MILLENNIUM BUN (04/15/2011 5:05 PM EDT) athologist Signature BUN 15 10 - 20 CERNER mg/dL MILLENNIUM Specimen Anatomical Collection Method Collection Time Receive d Time (Source) Location / / Volume Laterality Blood specimen 04/15/2011 5:05 PM 011 5:27 (specimen) EDT PM EDT Heike Woodall MD CHEMISTRY ORDERABLES Performing Organization Address [facility] [place] [address] CERNER MILLENNIUM (ABNORMAL) Electrolyte panel (04/15/2011 5:05 PM EDT) athologist Signature Sodium 136 135 - 145 CERNER mmol/L MILLENNIUM Potassium 3.6 3.5 - 5.0 CERNER mmol/L MILLENNIUM Comment: Please note: ??Patients with WBC >100,00 0 may have falsely elevated Potassium levels. ??For accurate Potassium quantif ication in these patients send serum separator tube (gold top) for subsequent determinations. ??Contact the Clinical Chemistry Laboratory if there are any qu estions. Chloride 110 (H) 98 - 107 mmol/L CERNER MILLENN IUM CO2 20 (L) 22 - 31 mmol/L CERNER MILLENNI UM Anion Gap 6 5 - 15 mmol/L CERNER MILLENNIU M Specimen Anatomical Collection Method Collection Time Receive d Time (Source) Location / / Volume Laterality Blood specimen 04/15/2011 5:05 PM 011 5:27 (specimen) EDT PM EDT Heike Woodall MD CHEMISTRY ORDERABLES Performing Organization Address City/[facility]/ZIP [facility] [place] [address] CERNER MILLENNIUM (ABNORMAL) CBC (with Diff) (04/15/2011 5:05 PM EDT) P athologist Signature WBC 8.2 4.0 - 10.0 CERNER x10(3)/mcL MILLENNIUM RBC 4.29 (L) 4.63 - CERNER 6.08 MILLENNIUM x10(6)/mcL Hemoglobin 13.0 (L) 13.7 - CERNER 17.5 gm/dL MILLENNIUM Hematocrit 36.5 (L) 40.0 - CERNER 51.0 % MILLENNIUM MCV 85.1 79.0 - CERNER 92.0 fL MILLENNIUM MCH 30.3 25.6 - CERNER 32.2 pg MILLENNIUM MCHC 35.6 32.0 - CERNER 36.5 gm/dL MILLENNIUM Platelets 134 (L) 145 - 370 CERNER x10(3)/mcL MILLENNIUM RDWSD 40.0 35.0 - CERNER 46.0 fL MILLENNIUM RDWCV 13.0 10.9 - CERNER 14.4 % MILLENNIUM MPV 9.4 9.0 - 12.0 CERNER fL MILLENNIUM Specimen Anatomical Collection Method Collection Time Receive d Time (Source) Location / / Volume Laterality Blood specimen 04/15/2011 5:05 PM 011 5:27 (specimen) EDT PM EDT Heike Woodall MD HEMATOLOGY ORDERABLES Performing Organization Address City/State/ZIP Code [place] [address] [facility] E[facility] 12-LEAD Is a rhythm strip needed?: No; Reason for Exam:: Chest Pain (04/15/2011 4:13 PM EDT) Patholo gist Method Time Signature Ventricular rate 73 BPM MUSE SYSTEM Atrial Rate 73 BPM MUSE SYSTEM P-R Interval 138 ms MUSE SYSTEM QRS Duration 88 ms MUSE SYSTEM Q-T Interval 368 ms MUSE SYSTEM QTC Calculated 405 ms MUSE SYSTEM (Bezet) Calculated P Lanett 58 degrees MUSE SYSTEM Calculated R Lanett 46 degrees MUSE SYSTEM Calculated T Lanett 76 degrees MUSE SYSTEM INTERPRETATION AGE AND GENDER SPECIFIC ECG ANALYSIS MUSE SYSTEM Normal sinus rhythm Inferior infarct , possibly acute * ACUTE OK ?? Abnormal ECG No previous ECGs available Confirmed by MD TIM, JONN ([id number]) on 04/16/2011 2:53:07 PM Specimen Anatomical Collection Method Collection Time Receive d Time (Source) Location / / Volume Laterality 04/15/2011 4:13 PM 1 2:53 EDT PM EDT Heike Woodall MD ECG ORDERABLES Performing Organization Address City/State/ZIP Code Phon e Number MUSE SYSTEM documented in this encounter Visit Diagnoses Diagnosis Chest pain Chest pain, unspecified ST elevation OK (STEMI) Acute myocardial infarction, unspecified site, episode of care unspecified ASCVD (arteriosclerotic cardiovascular d isease) Unspecified cardiovascular disease Left-sided muscle weakness Muscle weakness (generalized) Facial droop Facial weakness STEMI (ST elevation myocardial infarctio n) Acute myocardial infarction, unspecified site, episode of care unspecified Unspecified cardiovascular disease Muscle weakness (generalized) Facial weakness Acute myocardial infarction, unspecified site, episode of care unspecified Chest pain, unspecified Testicle pain Unspecified disorder of male genital org ans Unspecified disorder of male genital org ans documented in this encounter Administered Medications Inactive Administered Medications - up to 3 most recent administrations Medication Order MAR Action Action Date Dose Rate Site acetaminophen (TYLENOL) tablet Given 04/18/2011 11:09 AM EDT 650 mg 650 mg 650 mg, Oral, EVERY 4 HOURS PRN, Starting on Wed04/15/11 at 1907, Until 04/19/11 at 1738, Pain, Headaches, Maximum dose of acetaminophen is 4000 mg from all sources in 24 hours., Routine Given 04/17/2011 3:21 AM EDT 650 mg Given 04/16/2011 8:48 PM EDT 650 mg aspirin EC tablet 325 mg Given 04/19/2011 8:56 AM EDT 325 mg 325 mg, Oral, DAILY, First dose (after last reorder) on Madhuri 04/16/11 at 0900, Until Discontinued, Routine Given 04/18/2011 9:00 AM EDT 325 mg Given 04/17/2011 8:23 AM EDT 325 mg atorvastatin (LIPITOR) tablet 80 mg Given 04/18/2011 5:30 PM EDT 80 mg 80 mg, Oral, DAILY WITH DINNER, First dose on Wed04/15/11 at 1930, Until Discontinued, Routine Given 04/17/2011 5:00 PM EDT 80 mg Given 04/16/2011 5:00 PM EDT 80 mg citalopram (celeXA) tablet 60 mg Given 04/19/2011 8:56 AM EDT 60 mg 60 mg, Oral, DAILY, First dose on Wed04/15/11 at 1930, Until Discontinued, Routine Given 04/18/2011 9:00 AM EDT 60 mg Given 04/17/2011 8:23 AM EDT 60 mg clopidogrel (PLAVIX) tablet 75 mg Given 04/19/2011 8:56 AM EDT 75 mg 75 mg, Oral, DAILY, First dose (after last reorder) on Wed04/16/11 at 0900, Until Discontinued, Routine Given 04/18/2011 9:00 AM EDT 75 mg Given 04/17/2011 8:23 AM EDT 75 mg docusate sodium (COLACE) capsule 100 mg Given 04/19/2011 8:56 AM EDT 100 mg 100 mg, Oral, 2 TIMES DAILY, First dose on Wed04/15/11 at 2100, Until Discontinued, Routine Given 04/16/2011 8:48 PM EDT 100 mg Given 04/15/2011 10:00 PM EDT 100 mg famotidine (PEPCID) tablet 20 mg Given 04/19/2011 8:56 AM EDT 20 mg 20 mg, Oral, 2 TIMES DAILY, First dose on Wed04/15/11 at 2100, Until Discontinued, Routine Given 04/18/2011 8:14 PM EDT 20 mg Given 04/18/2011 9:00 AM EDT 20 mg fentaNYL (PF) 50 mcg/mL injection 1 dose, Starting on Wed04/15/11 at 2020, Until Wed04/15/11 at 2024, ELO GONZALEZ: Cabinet Override fentaNYL 50mcg/mL injection Given 04/16/2011 1:05 PM EDT 12.5 mcg 12.5 mcg, Intravenous, EVERY 2 HOURS PRN, Starting on Wed04/15/11 at 2018, Until Wed04/16/11 at 2021, Pain, Routine Given 04/16/2011 10:34 AM EDT 12.5 mcg Given 04/16/2011 12:40 AM EDT 12.5 mcg lisinopril (PRINIVIL;ZESTRIL) tablet 2.5 mg Given 04/19/2011 8:56 AM EDT 2.5 mg 2.5 mg, Oral, DAILY, First dose on Wed04/18/11 at 1700, Until Discontinued, Routine Given 04/18/2011 5:30 PM EDT 2.5 mg metoprolol tartrate (LOPRESSOR) tablet 12.5 Given 04/01 2:00 PM EDT 12.5 mg mg 12.5 mg, Oral, EVERY 8 HOURS SCHEDULED, First dose on Wed04/19/11 at 0600, Until Discontinued, Hold for HR less than 50, SBP less than 90, Routine metoprolol tartrate (LOPRESSOR) tablet 2 5 mg Given 04/15/2011 8:30 PM EDT 25 mg 25 mg, Oral, EVERY 6 HOURS SCHEDULED, First dose on Wed04/15/11 at 1930, Until Discontinued, Hold for SBP less than 90 mmHG or HR less than 55 beats per minute, Routine Mometasone (ASMANEX) aerosol 1 puff Given 04/18/2011 8:14 PM EDT 1 puff 1 puff (220 mcg), Inhalation, NIGHTLY, First dose on Wed04/15/11 at 2100, Until Discontinued, Routine Given 04/17/2011 8:45 PM EDT 1 puff Given 04/16/2011 8:48 PM EDT 1 puff phenytoin (DILANTIN) ER capsule 200 mg Given 04/19/2011 8:56 AM EDT 200 mg 200 mg, Oral, 2 TIMES DAILY, First dose on Wed04/15/11 at 2100, Until Discontinued, Hold enteral nutrition at least 1 hour before and 2 hours after dose. Monitor drug levels., Routine Given 04/18/2011 8:14 PM EDT 200 mg Given 04/18/2011 9:00 AM EDT 200 mg potassium chloride SA (K-DUR;KLOR-CON) Given 04/19/2011 11:43 AM EDT 40 mEq tablet 40-60 mEq 40-60 mEq, Oral, PER POTASSIUM PROTOCOL, Starting on Wed04/17/11 at 0740, Until Wed04/19/11 at 1738, potassium replenishment, For serum potassium (mMol/L) of 3.3-3.8 administer Potassium chloride liquid or SR tablets 40 mEq. For serum potassium (mMol/L) of 2.8-3.2 administer Potassium chloride liquid or SR tablets 60 mEq. For serum potassium less than 2.8 Call provider for potassium dosing. , Routine Given 04/17/2011 8:23 AM EDT 40 mEq sodium chloride 0.9% 500 mL IV bolus Given 04/16/2011 8:00 AM EDT Intravenous, ONCE, 1 dose, On Madhuri 04/16/11 at 0830 sodium chloride 0.9% infusion New Bag 04/15/2011 6:00 PM EDT 100 mL/hr 100 mL/hr 100 mL/hr, Intravenous, CONTINUOUS, Starting on Wed04/15/11 at 1930, Until Wed04/16/11 at 2022 topiramate (TOPAMAX) tablet 50 mg Given 04/19/2011 8:56 AM EDT 50 mg 50 mg, Oral, DAILY, First dose on Wed04/15/11 at 2030, Until Discontinued, Routine Given 04/18/2011 9:00 AM EDT 50 mg Given 04/17/2011 8:23 AM EDT 50 mg traZODone (DESYREL) tablet 200 mg Given 04/18/2011 10:23 PM EDT 200 mg 200 mg, Oral, NIGHTLY, First dose on Wed04/15/11 at 2100, Until Discontinued, Routine Given 04/17/2011 9:20 PM EDT 200 mg Given 04/16/2011 8:48 PM EDT 200 mg documented in this encounter Active and Recently Administered Medications Times are shown in EDT. Scheduled Medication Order 04/17/2011 04/18/2011 04/19/2011 aspirin EC tablet 325 mg 0823 (Given - Provider: Lianna Gilbert RN) 0900 (Given - Provider: Tita Morrow, TRES) 0856 (Given - Provider: Agata Dimas RN) 325 mg, Oral, DAILY, First dose on Madhuri at 0900, Until Discontinued, Routine atorvastatin (LIPITOR) tablet 80 mg 1700 (Given - Prov ider: Lianna Gilbert RN) 1730 (Given - Provider: Lianna Gilbert RN) 80 mg, Oral, DAILY WITH DINNER, First do se on Wed04/15/11 at 1930, Until Discontinued, Routine citalopram (celeXA) tablet 60 mg (CANCELED) 0823 (Give n - Provider: Lianna Gilbert RN) 0900 (Given - Provider: Tita Morrow RN) 0856 ( Given - Provider: Agata Dimas RN) 60 mg, Oral, DAILY, First dose on 15/09 at 1930, Until Discontinued, Routine clopidogrel (PLAVIX) tablet 75 mg 0823 (Given - Provid er: Lianna Gilbert RN) 899 (Given - Provider: Tita Morrow RN) 0856 ( Given - Provider: Agata Dimas RN) 75 mg, Oral, DAILY, First dose on Madhuri 16/09 at 0900, Until Discontinued, Routine docusate sodium (COLACE) capsule 100 mg (CANCELED) 082 3 (Not Given - Provider: Lianna Gilbert RN - Reason: Patient/family refused)2044 (Not Given - Provider: Brooke Francis RN - Reason: Patient/family refused) 899 (Not Given - Provider: Tita Morrow RN - Reason: Patient/family refused)2013 (Not Given - Provider: Lianna Gilbert RN - Reason: Patient/family refused) 0856 (Given - Provider: Sandee Castro) 100 mg, Oral, 2 TIMES DAILY, First dose on Wed04/15/11 at 2100, Until Discontinued, Routine famotidine (PEPCID) tablet 20 mg (CANCELED) 0823 (Give n - Provider: Lianna Gilbert RN)2044 (Given - Provider: Brooke Francis RN) 09 (Given - Provider: Tita Morrow RN)2013 (Given - Provider: Lianna Gilbert RN) 0856 (Given - Provider: Sandee Castro) 20 mg, Oral, 2 TIMES DAILY, First dose o n Wed04/15/11 at 2100, Until Discontinued, Routine lisinopril (PRINIVIL;ZESTRIL) tablet 2.5 mg 1730 (Given - Provider: Lianna Gilbert RN) 0856 (Given - Provider: Sandee Castro) 2.5 mg, Oral, DAILY, First dose on Sat at 1700, Until Discontinued, Routine metoprolol tartrate (LOPRESSOR) tablet 12.5 mg (CANCELED) 2229 (Not Given - Provider: Lianna Gilbert RN - Reason: Order parameters not met - Comment: Order not scheduled to start until am. Metoprolol already split, wasted at this time.) 0600 (Not Given - Provider: Brooke dawkins RN - Reason: Order parameters not met - Comment: HR 48.)1400 (Given - Provider: Agata Dimas RN) 12.5 mg, Oral, EVERY 8 HOURS SCHEDULED, First dose on Wed04/19/11 at 0600, Until Discontinued, Hold for HR less than 50, SBP less than 90, Routine Mometasone (ASMANEX) aerosol 1 puff (CANCELED) 2044 (G iven - Provider: Brooke Francis, TRES) 2013 (Given - Provider: Lianna Gilbert RN) 220 mcg = 1 puff, Inhalation, NIGHTLY, F irst dose on Wed04/15/11 at 2100, Until Discontinued, Routine phenytoin (DILANTIN) ER capsule 200 mg (CANCELED) 822 (Given - Provider: Lianna Gilbert RN)2044 (Given - Provider: Brooke Francis RN) 899 (Given - Provider: Tita Morrow, TRES)2013 (Given - Provider: Lianna Gilbert RN) 0856 (Given - Provider: Sandee Castro) 200 mg, Oral, 2 TIMES DAILY, First dose on Wed04/15/11 at 2100, Until Discontinued, Hold enteral nutrition at least 1 hour before and 2 hours after dose. Monitor drug levels., Routine topiramate (TOPAMAX) tablet 50 mg (CANCELED) 08 (Giv en - Provider: Lianna Gilbert RN) 899 (Given - Provider: Tita Morrow, TRES) 0856 ( Given - Provider: Agata Dimas RN) 50 mg, Oral, DAILY, First dose on 15/09 at 2030, Until Discontinued, Routine traZODone (DESYREL) tablet 200 mg (CANCELED) 2119 (Giv en - Provider: Brooke Francis RN) 2223 (Given - Provider: Lianna Gilbert RN) 200 mg, Oral, NIGHTLY, First dose on Wed04/15/11 at 2100, Until Discontinued, Routine PRN Medication Order 04/17/2011 04/18/2011 04/19/2011 acetaminophen (TYLENOL) tablet 650 mg (CANCELED) 0321 (Given - Provider: Constance Winn RN) 1109 (Given - Provider: Tita Morrow RN) 650 mg, Oral, EVERY 4 HOURS PRN, Startin g Wed04/15/11 at 1907, Until 04/19/11 at 1738, Pain, Headaches, Maximum dose of acetaminophen is 4000 mg from all sources in 24 hours., Routine nitroGLYcerin (NITROSTAT) SL tablet 0.4 mg 0.4 mg, Sublingual, EVERY 5 MIN PRN, Sta rting Wed04/15/11 at 1906, Until Wed04/19/11 at 1738, Chest pain, May repeat every 5 minutes for a total of three doses. Notify provider if chest pain not relieve d with nitroglycerin. Do not administer nitroglycerin if the patinet has received or taken phosphodiesterase (PDE-5) inhibitors such as sildenafil, tadalafil or vardenafil within the last 24 to 72 hours., Routine potassium chloride SA (K-DUR;KLOR-CON) tablet 40-60 mE q (CANCELED) 0823 (Given - Provider: Lianna Gilbert RN - Comment: SR K+3.4) 1143 (Given - Provider: Agata Dimas RN) 40-60 mEq, Oral, PER POTASSIUM PROTOCOL, Starting Wed04/17/11 at 0740, Until Wed04/19/11 at 1738, potassium replenishment, For serum potassium (mMol/L) of 3.3- 3.8 administer Potassium chloride liquid or SR tablets 40 mEq. For serum potassium (mMol/L) of 2.8-3.2 administer Potassium chloride liquid or SR tablets 60 mEq. For serum potassium less than 2.8 Call provider for potassium dosing. , Routine documented in this encounter Care Teams Justice [employer] Judge Relationship Specialty Start Date End Date Ramon Gomez MD PCP - General 09/23/10 07/28/[address] [place] [address] documented as of this encounter
--- OUTSIDE RECORDS SUMMARY | 2022-08-15 01:37 | XMS_ITS | Encounter Summary ---
:1955 Author Organization [facility] [place] [address] Care Team Providers Name Role Phone Jairon Gomez MD Primary Care Provider [phone] Reason for Visit Reason Onset Date Comments Medication Refill 01/15/2012 prescription sent to wrong pharmacy Encounter Details Date Type Department Care Team Description 01/15/2012 Refill Neurology at [facility] Gustavo Hayes [place] [address] NEUROLOGY DEPT. [phone] [place], [place] [address] (Wo rk) Social History Tobacco Use Types Packs/Day Years Used Date Former Smoker Cigarettes Quit: 05/14/20 08 Smokeless Tobacco: Never Used Alcohol Use Standard Drinks/Week Comments No 0 (1 standard drink = 0.6 oz pure alcoho l) Sex Assigned at Date Recorded Not on file documented as of this encounter Miscellaneous Notes Telephone Encounter - Luisa Nix LPN - 01/15/2012 10:29 AM EDT Follow up call: I left a voicemail for this patient's PCP explaining that Dr Hayes had written a script for vicodin but forgot to give to patient the day he was here. He mailed it to the patient on , 01-14-2012. I have also notified the patient. Telephone Encounter - Maureen Schultz - 01/15/2012 9:52 AM EDT PCP's office called regarding the following prescription. 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
--- OUTSIDE RECORDS SUMMARY | 2022-08-15 01:37 | XMS_ITS | Encounter Summary ---
:1955 Author Organization [facility] Address [address] [place] [address] Care Team Providers Name Role Phone Jairon Gomez MD Primary Care Provider Reason for Visit Reason Comments Coronary Artery Disease Hospital check Encounter Details Date Type Department Care Team Description 09/03/2011 Follow-Up Cardiology at [facility] [place] Marciano Sandoval MD CAD (coronary artery [facility] dis ease) (Primary Dx) [place] [address] CARDIOLOGY DEPT. [phone] [place], [place] [address] (Wo rk) Social History Tobacco Use Types Packs/Day Years Used Date Former Smoker Cigarettes Quit: 05/14/20 08 Smokeless Tobacco: Never Used Alcohol Use Standard Drinks/Week Comments Not Asked 0 (1 standard drink = 0.6 oz pure alcoho l) Sex Assigned at Date Recorded Not on file documented as of this encounter Last Filed Vital Signs Vital Sign Reading Time Taken Comments Blood Pressure 108/60 09/03/2011 1:02 PM EDT Rt arm si tting Pulse 68 09/03/2011 1:02 PM EDT Regular Temperature - - Respiratory Rate - - Oxygen Saturation - - Inhaled Oxygen Concentration - - Weight 63.5 kg (140 lb) 09/03/2011 1:02 PM EDT Height 162.6 cm (5' 4) 09/03/2011 1:02 PM EDT Body Mass Index 24.03 09/03/2011 1:02 PM EDT documented in this encounter Progress Notes Renzo Rivera - 09/09/2011 4:10 AM EST I have reviewed 's progress note of 09/03. I have not seen the patient. The assessment and plan appear reasonable. Marciano Ballard MD - 09/03/2011 12:52 PM EDT Ladder Operator Clinic Note Subjective: Patient ID: Miguel Pérez is a 56 y.o. male who comes for a follow-up appointment. HPI 56yo male with PMHX significant for CAD (s/p inferior STEMI 04/15/2011, 100% distal LCx occlusion, EF=52%), history of seizures, who presents to [facility] cardiology for a hospital check after recent admission (04/29/2011) for recurrent chest discomfort in a setting of seizures due to anti-epilpetic medication toxicity. Afterwards, patient had an admission to [facility] for stroke. Was seen by [facility] cardiology, found to have new presentation questionable for CVA, but patient was unable to provideany further details. No information on file regarding the admission, final diagnosis. Since last visit, patient has been doing well, states that he has some chest discomfort. States that he is unable to walk, still has memory loss. Unable to manage his own medications, unable to recall things needed to be done. Review of Systems Constitutional: Positive for chills. Negative for fever. Respiratory: Positive for cough and shortness of breath. Cardiovascular: Positive for chest pain and palpitations. Gastrointestinal: Negative for nausea, vomiting and diarrhea. Musculoskeletal: Positive for back pain. Neurological: Positive for dizziness, seizures, weakness and headaches. Vitals: 108/60, HR=68 Objective: Physical Exam Constitutional: He appears well-developed. HENT: Head: Normocephalic. Eyes: Pupils are equal, round, and reactive to light. Neck: Normal range of motion. No JVD present. Cardiovascular: Normal rate and regular rhythm. Pulmonary/Chest: Effort normal. He has no wheezes. He exhibits no tenderness. Abdominal: Soft. He exhibits no mass. He has no rebound. Musculoskeletal: Normal range of motion. He exhibits no edema. ECG: sinus gabe, inferior/lateral Q-waves Assessment and Plan: 56yo male with PMHx significant for STEMI in 04/2011 (100% distal LCx occlusion, EF=52%), epilepsy, memory loss, TBI, depression, GERD, allergic rhinitis, left- sided weakness, testicular pain who presents for a hospital check s/p recent readmission for chest pain. During the last [facility] visit, patient stated that he was admitted to [facility] for likely CVA. [facility]. Patient has been undergoing physical therapy, but states that he feels tired sometime. States that he has been given his medications on the regular basis by assisted. From cardiovascular standpoint, we recommend to continue with current medication treatment, including ASA 325mg, Zocor 40mg, M etoprolol succinate 25 daily, and Lisinopril 2.5mg, and Plavix 75mg for at least 4 weeks, optimally for 1 year (might be recommended in light of recent CVA?). Patient will need a follow up TTE during his next visit. We discussed the importance of continue to take Clopidrogrel and if patient has financial issues andunable to pay, was told to call [facility] cardiology to discuss possible options. Patient needs to continue to have follow-up with neurology. Follow-up appointment in [address] Sandoval documented in this encounter Plan of Treatment Upcoming Encounters Date Type Specialty Care Team Description 09/04/2022 Ancillary Procedure Radiology Aissatou Briggs, Berto velázquez (D-SCHED ERROR HR CONSULTANT / CORRECTION ) [address] [place] [address] (Wo rk) documented as of this encounter Procedures Procedure Name Priority Date/Time Associated Diagnosis Comme nts EKG 12-LEAD Routine 09/03/2011 1:20 PM CAD (coronary artery R esults for this EDT disease) procedure are i n the results section . documented in this encounter Results EKG 12 Lead (09/03/2011 1:20 PM EDT) Component Value Ref Range Test Analysis Performed Pathologis t Method Time At Signature Ventricular rate 51 BPM MUSE SYSTEM Atrial Rate 51 BPM MUSE SYSTEM P-R Interval 146 ms MUSE SYSTEM QRS Duration 74 ms MUSE SYSTEM Q-T Interval 494 ms MUSE SYSTEM QTC Calculated 455 ms MUSE SYSTEM (Bezet) Calculated P [place] 59 degrees MUSE SYSTEM Calculated R [place] 24 degrees MUSE SYSTEM Calculated T [place] -56 degrees MUSE SYSTEM INTERPRETATION Sinus bradycardia MUSE SY STEM Possible Left atrial enlargement Inferior infarct (cited on or before 15-APR-2011) Abnormal ECG When compared with ECG of 29-APR-2011 16:47, No significant change was found Confirmed by fellow MD Arriola Erik ([id number]) on 09/04/2011 12:0 6:44 PM Confirmed by MD Rivera Robert ([id number]) on 09/04/2011 5:12:14 PM Specimen Anatomical Collection Method Collection Time Receive d Time (Source) Location / / Volume Laterality 09/03/2011 1:20 PM 1 5:12 EDT PM EDT Renzo Rivera MD ECG ORDERABLES Performing Organization Address City/State/ZIP Code Phon e Number MUSE SYSTEM documented in this encounter Visit Diagnoses Diagnosis CAD (coronary artery disease) - Primary Coronary atherosclerosis of unspecified type of vessel, eagle or graft documented in this encounter Care Teams Driller'S Offsider Relationship Specialty Start Date End Date Jairon Gomez MD PCP - General 09/23/10 07/28/[address] [place] [address] documented as of this encounter
--- OUTSIDE RECORDS SUMMARY | 2022-08-15 01:37 | XMS_ITS | Encounter Summary ---
:1955 Author Organization [facility] [place] [address] Care Team Providers Name Role Phone Jairon Gomez MD Primary Care Provider Reason for Visit Reason Comments Seizures Encounter Details Date Type Department Care Team Description 09/02/2011 Follow-Up Neurology at [facility] Gustavo Hayes Epilepsy (Primary Dx) [facility] [place] [address] NEUROLOGY DEPT. [place], [place] [address] (Wo rk) Social History Tobacco Use Types Packs/Day Years Used Date Former Smoker Cigarettes Quit: 05/14/20 08 Alcohol Use Standard Drinks/Week Comments Not Asked 0 (1 standard drink = 0.6 oz pure alcoho l) Sex Assigned at Date Recorded Not on file documented as of this encounter Last Filed Vital Signs Vital Sign Reading Time Taken Comments Blood Pressure 97/60 09/02/2011 1:26 PM EDT Pulse 46 09/02/2011 1:26 PM EDT Temperature - - Respiratory Rate - - Oxygen Saturation - - Inhaled Oxygen Concentration - - Weight 63.5 kg (140 lb) 09/02/2011 1:26 PM EDT Height 162.6 cm (5' 4) 09/02/2011 1:26 PM EDT Body Mass Index 24.03 09/02/2011 1:26 PM EDT documented in this encounter Progress Notes Gustavo Hayes MD - 09/02/2011 4:27 PM EDT [facility] Department [place] [address] Patient - Miguel Pérez Date of - 1955 PCP - JAIRON GOMEZ MD TUBULAR STOCK GLASS BULB MACHINE FORMER - PIERRE HUNT APRN Follow -up Patient Evaluation I saw Mr. Miguel Pérez today at the [facility] for a followup examination. Mr. 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 This is the second time I am seeing Mr. Pérez. Previously I saw him in 2008, and I have not seen him since. Mr. Pérez has significant cognitive problems, and any history I obtained is poor. He came to the office by himself, and I was not able to substantiate any of his reports. He says that he was admitted recently to the hospital for myocardial infarction. In reviewing his medical records, he did come in to [facility] in May of 2011 with chest pain. This was associated with having seizures. He was seen by the Cardiology Team who d iagnosed him with myocardial infarction. He was likewise seen by the Neurology Service, which, in addition to his Dilantin, started him on Topamax. The patient reports that he has been having frequent seizures, although he is not able to tell me inany way exactly how frequent they are. He presently lives with his girlfriend. I attempted to call her during the courseof the examination but was not able to reach her. I asked the patient to have his girlfriend give me a call when she is able to. His present medications include citalopram 90 mg daily and Dilantin 100 in the morning and 200 at night. He says that this was decreased recently from 200 twice a day, and his seizures became worse. He is also taking Neurontin 200 mg three times a day and topiramate 50 mg daily. The patient, in addition, takes multiple medications for his heart disease. On review of systems he is reporting severe headaches. Impression: 1. Cryptogenic focal epilepsy. I asked the patient to have his girlfriend give me a call, and I will take a more detailed history from her. At present I am not sure entirely what is going on. It seems that the patient is having more seizures following a decrease of his Dilantin. I am not entirely sure why this Dilantin was cut. documented in this encounter Plan of Treatment Upcoming Encounters Date Type Specialty Care Team Description 09/04/2022 Ancillary Procedure Radiology Aissatou Briggs, Bubba eber (D-SCHED ERROR MULTIFOCAL BUTTON GENERATOR / CORRECTION ) [address] [place] [address] (Wo rk) documented as of this encounter Visit Diagnoses Diagnosis Epilepsy - Primary Unspecified epilepsy without mention of intractable epilepsy documented in this encounter Care Teams Lifestyle Consultant Relationship Specialty Start Date End Date Jairon Gomez MD PCP - General 09/23/10 07/28/[address] [place] [address] documented as of this encounter
--- OUTSIDE RECORDS SUMMARY | 2022-08-15 01:37 | XMS_ITS | Encounter Summary ---
:1955 Author Organization [facility] [place] [address] Care Team Providers Name Role Phone Jairon Gomez MD Primary Care Provider [phone] Reason for Visit Reason Onset Date Comments Other 10/21/2011 Encounter Details Date Type Department Care Team Description 10/21/2011 Telephone Hematology and Oncology at Gustavo Schmidt MD Other [facility] Sumit mol[place] [address] [place] [address] [phone] (Wo rk) Social History Tobacco Use Types Packs/Day Years Used Date Former Smoker Cigarettes Quit: 05/14/20 08 Smokeless Tobacco: Never Used Alcohol Use Standard Drinks/Week Comments No 0 (1 standard drink = 0.6 oz pure alcoho l) Sex Assigned at Date Recorded Not on file documented as of this encounter Miscellaneous Notes Telephone Encounter - Luisa Nix LPN - 10/21/2011 3:06 PM EST Follow up call: I spoke to Marisa and went over the medication list to some extent but the questions she had were about medications that Dr Hayes has not prescribed. She will call patient's PCP to try to straighten out. Telephone Encounter - Maureen Schultz - 10/21/2011 1:05 PM EST Patient's nurse Marisa Perera from [facility] called regarding medications that the patient is on does not agree with his med list. Please contact the nurse at the home number listed until 2pm after that please call [phone]. documented in this encounter Plan of Treatment Upcoming Encounters Date Type Specialty Care Team Description 09/04/2022 Ancillary Procedure Radiology Aissatou Briggs, Berto velázquez (D-SCHED ERROR WIRE GALVANIZER / CORRECTION ) [address] [place], [place] [id number] (Wo rk) documented as of this encounter Visit Diagnoses Not on filedocumented in this encounter Care Teams Plater Supervisor Relationship Specialty Start Date End Date Jairon Gomez MD PCP - General 09/23/10 07/28/[address] [place], [place] [id number] documented as of this encounter
--- OUTSIDE RECORDS SUMMARY | 2022-08-15 01:37 | XMS_ITS | Encounter Summary ---
:1955 Author Organization [facility] [place] [address] Care Team Providers Name Role Phone Jairon Gomez MD Primary Care Provider [phone] Encounter Details Date Type Department Care Team Description 05/06/2012 Telephone Neurology at [facility] Maribel Terry, [facility] [place] [address] [facility] [phone] NEUROLOGY DEPT. [place], [place] [address] (Wo rk) Social History Tobacco Use Types Packs/Day Years Used Date Former Smoker Cigarettes Quit: 05/14/20 08 Smokeless Tobacco: Never Used Alcohol Use Standard Drinks/Week Comments No 0 (1 standard drink = 0.6 oz pure alcoho l) Sex Assigned at Date Recorded Not on file documented as of this encounter Miscellaneous Notes Telephone Encounter - Maribel Terry MD - 05/06/2012 7:11 PM EDT Patient calls stating Vicodin has not been called into his pharmacy as requested by Dr. Hayes. Please see Ashley's note from earlier today. Refilled as requested per patient. documented in this encounter Plan of Treatment Upcoming Encounters Date Type Specialty Care Team Description 09/04/2022 Ancillary Procedure Radiology Aissatou Briggs, Berto velázquez (D-SCHED ERROR MANAGEMENT EXPERT / CORRECTION ) [address] [place] [address] (Wo rk) documented as of this encounter Visit Diagnoses Not on filedocumented in this encounter Care Teams Cutter Out Relationship Specialty Start Date End Date Jairon Gomez MD PCP - General 09/23/10 07/28/[address] [place], [place] [id number] documented as of this encounter
--- OUTSIDE RECORDS SUMMARY | 2022-08-15 01:37 | XMS_ITS | Encounter Summary ---
:1955 Author Organization [facility] Address [address] [place] [address] Care Team Providers Name Role Phone Jairon Gomez MD Primary Care Provider [phone] Encounter Details Date Type Department Care Team Description 03/31/2012 Follow-Up Cardiology at [facility] Marciano Sandoval MD CAD (coronary artery [facility] dis ease) (Primary Dx) [place] [address] CARDIOLOGY DEPT. [phone] [place] [id number] (Wo rk) Social History Tobacco Use Types Packs/Day Years Used Date Former Smoker Cigarettes Quit: 05/14/20 08 Smokeless Tobacco: Never Used Alcohol Use Standard Drinks/Week Comments No 0 (1 standard drink = 0.6 oz pure alcoho l) Sex Assigned at Date Recorded Not on file documented as of this encounter Last Filed Vital Signs Vital Sign Reading Time Taken Comments Blood Pressure 128/86 03/31/2012 1:00 PM EDT Pulse 64 03/31/2012 1:00 PM EDT regular Temperature - - Respiratory Rate - - Oxygen Saturation - - Inhaled Oxygen Concentration - - Weight 66.7 kg (147 lb) 03/31/2012 1:00 PM EDT Height 162.6 cm (5' 4) 03/31/2012 1:00 PM EDT Body Mass Index 25.23 03/31/2012 1:00 PM EDT documented in this encounter Progress Notes Armand Burden MD - 04/11/2012 8:48 PM EDT Marciano Sandoval MD - 03/31/2012 3:19 PM EDT Ice Plant Operator Clinic Note Subjective: Patient ID: Miguel [...] follow-up appointment. Patient is back in clinic today, states that he feels much better and his atypical symptoms have improved. States that this atypical chest discomfort occurs about once a week, unrelated to physical activity. During our las visit, patient was c/o chest discomfort, and we proceeded with ordering a stress test, still pending. The pain is unlikely to be cardiac in nature. Review of Systems Constitutional: Positive for chills. Respiratory: Positive for cough and shortness of breath. Negative for chest tightness. Cardiovascular: Positive for chest pain (c/o muscle discomfort, ) and palpitations. Negative for legswelling. Gastrointestinal: Negative for nausea, vomiting, abdominal pain and diarrhea. Genitourinary: Negative for dysuria. Musculoskeletal: Positive for myalgias. Neurological: Negative for dizziness and syncope. BO=357/66, P=64 Objective Physical Exam HENT: Head: Normocephalic and [...] more and became much more physically active. States that these atypical symptoms are improving, stillhas issues with (TBI, memory loss). At this point, it will be one year after his recent STEMI and ifsymptoms persist, we may consider a stress test. For now, continue on current medications, including(ASA, Plavix, statin, Metoprolol, and Lisinopril). Plavix for 1 year, but we will consider discontinue after our next visit. Otherwise, patient is stable and improving Follow-up appointment documented in this encounter Plan of Treatment Upcoming Encounters Date Type Specialty Care Team Description 09/04/2022 Ancillary Procedure Radiology Aissatou Briggs, Berto velázquez (D-SCHED ERROR DIRECTOR NICU / CORRECTION ) [address] [place] [address] (Wo rk) documented as of this encounter Procedures Procedure Name Priority Date/Time Associated Diagnosis Comme nts EKG 12-LEAD Routine 03/31/2012 2:58 PM CAD (coronary artery R esults for this EDT disease) procedure are i n the results section . documented in this encounter Results NM myocardial perfusion scan, pharmacologic (04/11/2012 12:07 PM EDT) Anatomical Region Laterality Modality Other Specimen (Source) Anatomical Collection Method Collection Time Re ceived Time Location / / Volume Laterality 04/11/2012 12:07 PM EDT Impressions 04/11/2012 5:23 PM EDT IMPRESSION: Inferolateral wall scar, extending from the base to the apex with a small area of mild brittnee-infarct ischemia as above. ??Associated mild lateral wall hypokinesis and mild hypokinesis at the base of the inferior wall, estimated LVEF of 46%. NOTE: ??Results were discussed with both Drs. Armand Burden and Marciano Sandoval at the time of interpretation on 04/11/2012 at approximately 1150 hours. ? Film and interpretation reviewed by the attending Narrative 04/11/2012 5:23 PM EDT REST AND REGADENOSON (LEXISCAN) SESTAMIBI (CARDIOLITE) MYOCARDIAL PERFUSION SCANS, 04/11/12 INDICATION: ??History of SC, has atypica l chest pain, difficult to collect history. COMPARISON: ??None. TECHNIQUE: ??During rest, 11 mCi of tech netium-99m sestamibi were administered intravenously. ??Approximately 15 minute s later, SPECT images of the heart were obtained with reconstruction in the shor t, vertical long and horizontal long axes. The patient then received regadenoson in travenously at a dose of 0.4 mg. ?? Twenty seconds later, 37 mCi of techneti um-99m sestamibi were administered intravenously. ??Images of the heart wer e then again obtained with SPECT reconstruction. A low-dose CT scan was acquired for the purpose of attenuation correction. FINDINGS: ??Examination is somewhat limi marleny due to patient motion. ??There is a predominately fixed perfusion defect inv olving the lateral wall, extending from the base to the apex, with the fixed com ponent involving the inferolateral wall and with a small area of mild reversibil ity seen in the brittnee-border zone anterolateral wall. ??No additional reve rsible or fixed perfusion defects are identified. ??The gated images show abse nt thickening in the aforementioned fixed inferolateral wall perfusion defec t. ??There is generalized mild hypokinesis involving the lateral wall a nd at the base of the inferior wall. ?? The estimated left ventricular ejection fraction is 46%. ?? Procedure Note Raiza Simmons MD - 04/11/2012Formatt ing of this note might be different from the original. REST AND REGADENOSON (LEXISCAN) SESTAMIB I (CARDIOLITE) MYOCARDIAL PERFUSION SCANS, 04/11/12 INDICATION: History of SC, has atypical chest pain, difficult to collect history. COMPARISON: None. TECHNIQUE: During rest, 11 mCi of techne tium-99m sestamibi were administered intravenously. Approximately 15 minutes later, SPECT images of the heart were obtained with reconstruction in the shor t, vertical long and horizontal long axes. The patient then received regadenoson in travenously at a dose of 0.4 mg. Twenty seconds later, 37 mCi of techneti um-99m sestamibi were administered intravenously. Images of the heart were then again obtained with SPECT reconstruction. A low-dose CT scan was acquired for the purpose of attenuation correction. FINDINGS: Examination is somewhat limite d due to patient motion. There is a predominately fixed perfusion defect inv olving the lateral wall, extending from the base to the apex, with the fixed com ponent involving the inferolateral wall and with a small area of mild reversibil ity seen in the brittnee-border zone anterolateral wall. No additional revers ible or fixed perfusion defects are identified. The gated images show absent thickening in the aforementioned fixed inferolateral wall perfusion defec t. There is generalized mild hypokinesis involving the lateral wall a nd at the base of the inferior wall. The estimated left ventricular ejection fraction is 46%. IMPRESSION IMPRESSION: Inferolateral wall scar, extending from the base to the apex with a small area of mild brittnee-infarct ischemia as above. Associated mild lateral wall hypokinesis and mild hypokinesis at the base of the inferior wall, estimated LVEF of 46%. NOTE: Results were discussed with both Sumit Burden and Marciano Sandoval at the time of interpretation on 04/11/2012 at approximately 1150 hours. Film and interpretation reviewed by the attending Armand Burden MD IMG NM ORDERABLES EKG 12 Lead (03/31/2012 2:58 PM EDT) Component Value Ref Range Test Analysis Performed Pathologis t Method Time At Signature Ventricular rate 63 BPM MUSE SYSTEM Atrial Rate 63 BPM MUSE SYSTEM P-R Interval 138 ms MUSE SYSTEM QRS Duration 76 ms MUSE SYSTEM Q-T Interval 468 ms MUSE SYSTEM QTC Calculated 478 ms MUSE SYSTEM (Bezet) Calculated P [place] 60 degrees MUSE SYSTEM Calculated R [place] 19 degrees MUSE SYSTEM Calculated T [place] -9 degrees MUSE SYSTEM INTERPRETATION Normal sinus rhythm MUSE SYSTEM Inferior infarct (cited on or before 22-JAN-2012) When compared with ECG of 22-JAN-2012 16:33, No significant change was found Confirmed by MD ALY, DISHA ([id number]) on 04/01/2012 1:42:53 PM Specimen Anatomical Collection Method Collection Time Receive d Time (Source) Location / / Volume Laterality 03/31/2012 2:58 PM 2 1:42 EDT PM EDT Armand Burden MD ECG ORDERABLES Performing Organization Address City/State/ZIP Code Phon e Number MUSE SYSTEM documented in this encounter Visit Diagnoses Diagnosis CAD (coronary artery disease) - Primary Coronary atherosclerosis of unspecified type of vessel, [place] or graft Chest pain on exertion Chest pain, unspecified CAD (coronary artery disease) Coronary atherosclerosis of unspecified type of vessel, [place] or graft documented in this encounter Care Teams Sales Service Rep Relationship Specialty Start Date End Date Jairon Gomez MD PCP - General 09/23/10 07/28/[address] [place] [address] documented as of this encounter
--- OUTSIDE RECORDS SUMMARY | 2022-08-15 01:37 | XMS_ITS | Encounter Summary ---
:1955 Author Organization [facility] [place] [address] Care Team Providers Name Role Phone Jairon Gomez MD Primary Care Provider [phone] Encounter Details Date Type Department Care Team Description 04/11/2012 Hospital Encounter Nuclear Medicine at CLINIC, DR [facility] Chest pain on exertion; Armand Thao MD [facility] [place] [address] CAD (coronary artery disease) [place] [id number] Social History Tobacco Use Types Packs/Day Years Used Date Former Smoker Cigarettes Quit: 05/14/20 08 Smokeless Tobacco: Never Used Alcohol Use Standard Drinks/Week Comments No 0 (1 standard drink = 0.6 oz pure alcoho l) Sex Assigned at Date Recorded Not on file documented as of this encounter Medications at Time of Discharge Medication Sig Dispensed Refills Start Date End Date FLUoxetine (PROZAC) 20 mg Take 20 mg by 0 07/18/2013 capsule mouth daily. ibuprofen (ADVIL;MOTRIN) Take 200 mg by 0 02/06/2014 200 mg tablet mouth every 6 hours as needed. ibuprofen (ADVIL;MOTRIN) Take 1 tablet by 0 01/0702/06/2014 400 mg tablet mouth every 4 hours as needed. hydroCODone-acetaminophen Take 1 tablet by 60 each 3 12/3009/28/2012 (VICODIN) 5-500 mg mouth 2 times TabIndications: Low back daily for 30 days. pain gabapentin (NEURONTIN) Take 2 capsules by 180 capsule 12 12/3003/22/2013 300 mg mouth 3 times capsuleIndications: Low daily for 30 days. back pain traZODone (DESYREL) 100 Take 200 mg by 0 04/14/2022 mg tablet mouth nightly. Levalbuterol Tartrate Inhale 1-2 puffs 0 02/06/2014 (XOPENEX HFA) 45 into the lungs mcg/Actuation inhaler every 4 hours as needed. niacin (NIASPAN ER) 500 Take 500 mg by 0 07/18/2013 mg ER tablet mouth nightly. FLUoxetine (PROZAC) 10 mg Take 10 mg by 0 011 07/18/2013 tablet mouth daily. lisinopril Take 5 mg by mouth 0 2014 (PRINIVIL;ZESTRIL) 5 mg daily. tablet phenytoin (DILANTIN Take 1 capsule by 0 05/19/2016 KAPSEAL) 100 mg ER mouth every capsule morning, and 2 capsules every evening. Brand name only. traZODone (DESYREL) 50 mg Take 50 mg by 0 08/17/2012 tablet mouth 2 times daily. clopidogrel (PLAVIX) 75 Take 1 tablet by 30 tablet 12 201004/29/2012 mg tabletIndications: mouth daily. ASCVD (arteriosclerotic cardiovascular disease) lisinopril Take 1 tablet by 30 tablet 12 04/30/2011 04/29/20 12 (PRINIVIL;ZESTRIL) 2.5 mg mouth daily. tablet metoprolol succinate Take 1 tablet by 30 tablet 12 1 04/29/2012 (TOPROL-XL) 25 mg 24 hr mouth daily. tablet nitroGLYcerin (NITROSTAT) Place 1 tablet 90 tablet 0 201004/29/2012 0.4 mg SL tablet under the tongue every 5 minutes as needed for Chest pain. simvastatin (ZOCOR) 40 mg Take 1 tablet by 30 tablet 12 04/0304/29/2012 tablet mouth nightly. hydrOXYzine (ATARAX) 25 Take 1 tablet by 30 tablet 3 201004/02/2014 mg tablet mouth every 6 hours as needed. documented as of this encounter Progress Notes Chanda Banks RN - 04/11/2012 10:39 AM EDT This RN was called to nuc med dept for witnessed seizure during stress test. Dr. Ilda Enciso was at pt's side and requested Ativan 1 mg IV. Ativan given. reports she will monitor and call back PRN. Pt has mixer driver waiting for him for when he leaves. documented in this encounter Plan of Treatment Upcoming Encounters Date Type Specialty Care Team Description 09/04/2022 Ancillary Procedure Radiology Aissatou Briggs, Berto velázquez (D-SCHED ERROR DEVELOPING MACHINE TENDER / CORRECTION ) [address] [place] [address] (Wo rk) documented as of this encounter Procedures Procedure Name Priority Date/Time Associated Comments Diagnosis NM PHARMACOLOGIC Routine 04/11/2012 12:07 CAD (coronary Result s for this STRESS AND REST PM EDT artery disease) procedure are in MYOCARDIAL PERFUSION the res ults section. documented in this encounter Results NM myocardial [...] MYOCARDIAL PERFUSION SCANS, 04/11/12 INDICATION: ??History of [place], has atypica l chest pain, difficult to [...] MYOCARDIAL PERFUSION SCANS, 04/11/12 INDICATION: History of [place], has atypical chest pain, difficult to collect [...] 46%. NOTE: Results were discussed with both uSmit Burden and Marciano Sandoval at the time of interpretation on 04/11/2012 at approximately 1150 hours. Film and interpretation reviewed by the attending Armand Burden MD IMG NM ORDERABLES documented in this encounter Visit Diagnoses Diagnosis Chest pain on exertion Chest pain, unspecified CAD (coronary artery disease) Coronary atherosclerosis of unspecified type of vessel, [place] or graft documented in this encounter Administered Medications Inactive Administered Medications - up to 3 most recent administrations Medication Order MAR Action Action Date Dose Rate Site LORazepam (ATIVAN) 2 mg/mL injection 1 dose, Starting on Wed04/11/12 at 1023, Until Wed04/11/12 at 1038, CHANDA BANKS: Cabinet Override LORazepam (ATIVAN) injection 1 mg Given 04/11/2012 10:38 AM EDT 1 mg 1 mg, Intravenous, ONCE, 1 dose, On Wed04/11/12 at 1100, Routine regadenoson (LEXISCAN) injection 0.4 mg Given 04/11/2012 10:20 AM EDT 0.4 mg 0.4 mg, Intravenous, ONCE, 1 dose, On Wed04/11/12 at 1100, Routine documented in this encounter Care Teams Lombardi Developer Relationship Specialty Start Date End Date Jairon Gomez MD PCP - General 09/23/10 07/28/[address] [place] [address] documented as of this encounter
--- OUTSIDE RECORDS SUMMARY | 2022-08-15 01:37 | XMS_ITS | Encounter Summary ---
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 Eosinophils Abs 0.2 0.0 - 0.5 CERNER x10(3)/mcL MILLENNIUM Basophils % 0.5 0.0 - 2.0 CERNER % MILLENNIUM Basophils [...] Location / / Volume Laterality Blood specimen 04/29/2011 6:15 PM 011 6:38 (specimen) EDT PM EDT Lise Lackey MD HEMATOLOGY ORDERABLES Performing Organization Address City/State/[place] [address] CERNER MILLENNIUM (ABNORMAL) Cardiac Enzymes (04/29/2011 6:15 PM EDT) athologist Signature Troponin-T 0.11 (H) <=0.03 CERNER ng/mL MILLENNIUM Comment: 0.03 ng/mL: Represents the 99th percenti [...] of the Joint [place] an Society of Cardiology/[place] College of Cardiology Committee for the redefinition of myocardial infarction. Journal of the [place] College of Cardi ology 2000; 36: 959-969] CK, Total 60 0 - 200 unit/L CERNER MILLENNI UM Specimen Anatomical Collection Method Collection Time Receive d Time (Source) Location / / Volume Laterality Blood specimen 04/29/2011 6:15 PM 011 6:38 (specimen) EDT PM EDT Lise Lackey MD CHEMISTRY ORDERABLES Performing Organization Address City/State/[place] [address] CERNER MILLENNIUM CBC (with Diff) once daily (04/29/2011 6:15 PM EDT) athologist Signature WBC 5.8 4.0 - 10.0 CERNER x10(3)/mcL MILLENNIUM RBC 4.76 4.63 - 6.08 CERNER x10(6)/mcL MILLENNIUM Hemoglobin 14.3 13.7 - 17.5 CERNER gm/dL MILLENNIUM Hematocrit 40.3 40.0 - 51.0 CERNER % MILLENNIUM MCV 84.7 79.0 - 92.0 CERNER fL MILLENNIUM MCH 30.0 25.6 - 32.2 CERNER pg MILLENNIUM MCHC 35.5 32.0 - 36.5 CERNER gm/dL MILLENNIUM Platelets 151 145 - 370 CERNER x10(3)/mcL MILLENNIUM RDWSD 39.0 35.0 - 46.0 CERNER fL MILLENNIUM RDWCV 12.9 10.9 - 14.4 CERNER % MILLENNIUM MPV 9.6 9.0 - 12.0 CERNER fL MILLENNIUM Specimen Anatomical Collection Method Collection Time Receive d Time (Source) Location / / Volume Laterality Blood specimen 04/29/2011 6:15 PM 011 6:38 (specimen) EDT PM EDT Lise Lackey MD HEMATOLOGY ORDERABLES Performing Organization Address City/State/[place] [address] CERNER MILLENNIUM Protime-INR (04/29/2011 6:15 PM EDT) athologist Signature PT 14.0 12.3 - 14.7 CERNER sec MILLENNIUM Comment: [facility] Transfusion Committee Guidelines: I NR less than 2.0, PTT less than OR equal to 43.5 seconds, or Fibrinogen gre ater than or equal to 100 mg/dl indicate adequate procoagulant activity for hemostasis in patients without underlying bleeding disorders. INR 1.1 0.9 - 1.1 CERNER MILLENNIUM Specimen Anatomical Collection Method Collection Time Receive d Time (Source) Location / / Volume Laterality Blood specimen 04/29/2011 6:15 PM 011 6:38 (specimen) EDT PM EDT Lise Lackey MD HEMATOLOGY ORDERABLES Performing Organization Address [facility] [place] [address] CERNER MILLENNIUM Phosphorus (04/29/2011 6:15 PM EDT) athologist Signature Phosphorus 3.0 2.5 - 4.5 CERNER mg/dL MILLENNIUM Specimen Anatomical Collection Method Collection Time Receive d Time (Source) Location / / Volume Laterality Blood specimen 04/29/2011 6:15 PM 011 6:38 (specimen) EDT PM EDT Lise Lackey MD CHEMISTRY ORDERABLES Performing Organization Address City/[facility] [place] [address] CERNER MILLENNIUM Magnesium (04/29/2011 6:15 PM EDT) athologist Signature Magnesium 0.80 0.69 - 1.07 CERNER mmol/L MILLENNIUM Specimen Anatomical Collection Method Collection Time Receive d Time (Source) Location / / Volume Laterality Blood specimen 04/29/2011 6:15 PM 011 6:38 (specimen) EDT PM EDT Lise Lackey MD CHEMISTRY ORDERABLES Performing Organization Address City/[facility]/[place] [address] CERNER MILLENNIUM Calcium (04/29/2011 6:15 PM EDT) athologist Signature Calcium 9.4 8.5 - 10.5 CERNER mg/dL [facility] Specimen Anatomical Collection Method Collection Time Receive d Time (Source) Location / / Volume Laterality Blood specimen 04/29/2011 6:15 PM 011 6:38 (specimen) EDT PM EDT Lise Lackey MD CHEMISTRY ORDERABLES Performing Organization Address City/[facility]/ZIP Code Phon e Number [address] CERNER MILLENNIUM (ABNORMAL) APTT Baseline Check (04/29/2011 5:18 PM EDT) P athologist Signature PTT 114 (H) 25 - 37 sec CERNER MILLENNIUM Comment: Recommended therapeutic PTT range for fu ll dose unfractionated heparin is 80-114 seconds. Specimen Anatomical Collection Method Collection Time Receive d Time (Source) Location / / Volume Laterality Blood specimen 04/29/2011 5:18 PM 011 5:30 (specimen) EDT PM EDT Lise Lackey MD HEMATOLOGY ORDERABLES Performing Organization Address City/[facility]/[place] [address] CERNER [facility] EKG 12-LEAD Is a rhythm strip needed?: No; Reason for Exam:: Chest Pain (04/29/2011 4:47 PM EDT) Component Value Ref Range Test Analysis Performed Pathologis t Method Time At Signature Ventricular rate 49 BPM MUSE SYSTEM Atrial Rate 49 BPM MUSE SYSTEM P-R Interval 142 ms MUSE SYSTEM QRS Duration 80 ms MUSE SYSTEM Q-T Interval 524 ms MUSE SYSTEM QTC Calculated 473 ms MUSE SYSTEM (Bezet) Calculated P [place] 58 degrees MUSE SYSTEM Calculated R [place] 7 degrees MUSE SYSTEM Calculated T [place] -55 degrees MUSE SYSTEM INTERPRETATION Marked sinus bradycardia MUSE SYSTEM Inferior infarct , age undetermined Abnormal ECG When compared with ECG of 16-APR-2011 08:46, Non-specific change in ST segment in Inferior leads T wave inversion now evident in Inferior leads T wave inversion now evident in Lateral leads Confirmed by Radha Burden Mandeep S ([id number]) on 04/30/2011 5:07:3 9 PM Specimen Anatomical Collection Method Collection Time Receive d Time (Source) Location / / Volume Laterality 04/29/2011 4:47 PM 1 5:07 EDT PM EDT Lise Lackey MD ECG ORDERABLES Performing Organization Address City/State/ZIP Code Phon e Number MUSE SYSTEM documented in this encounter Visit Diagnoses Diagnosis ACS (acute coronary syndrome) Intermediate coronary syndrome ASCVD (arteriosclerotic cardiovascular d isease) Unspecified cardiovascular disease Unspecified cardiovascular disease Chest pain on exertion; prior STEMI with Cath Chest pain, unspecified STEMI (ST elevation myocardial infarctio n) Acute myocardial infarction, unspecified site, episode of care unspecified Left-sided muscle weakness Muscle weakness (generalized) documented in this encounter Administered Medications Inactive Administered Medications - up to 3 most recent administrations Medication Order MAR Action Action Date Dose Rate Site aspirin EC tablet 325 mg Given 04/30/2011 9:00 AM EDT 325 mg 325 mg, Oral, DAILY, First dose on Wed04/30/11 at 0900, Until Discontinued, Routine citalopram (celeXA) tablet 60 mg Given 04/30/2011 9:00 AM EDT 60 mg 60 mg, Oral, DAILY, First dose on Wed04/30/11 at 0900, Until Discontinued, Routine clopidogrel (PLAVIX) tablet 75 mg Given 04/30/2011 9:00 AM EDT 75 mg 75 mg, Oral, DAILY, First dose on Wed04/30/11 at 0900, Until Discontinued, Routine famotidine (PEPCID) tablet 20 mg Given 04/30/2011 9:00 AM EDT 20 mg 20 mg, Oral, 2 TIMES DAILY, First dose on Wed04/29/11 at 2100, Until Discontinued, Routine Given 04/29/2011 8:28 PM EDT 20 mg fluticasone (FLOVENT) 110 mcg/Actuation Given 04/30/2011 9:00 AM EDT 1 puff inhaler 1 puff 1 puff, Inhalation, 2 TIMES DAILY, First dose on Wed04/29/11 at 2100, Until Discontinued, Shake well; Rinse mouth after administration., Routine Given 04/29/2011 8:28 PM EDT 1 puff heparin 25,000 units in Rate/Dose Change 04/30/2011 2:43 AM 800 Uni ts/hr 16 mL/hr dextrose 5% 500 mL EDT infusion 350-7,000 Units/hr (rounded to 7-140 mL/hr), Intravenous, CONTINUOUS, Starting on Wed04/29/11 at 1745, Until Wed04/30/11 at 195, Patient Weight 60-64 kg Initial dose - 750 units/hr = 15 mL/hr PTT less than 60 sec - increase by 250 units/hr = 5 mL/hr PTT 60-79 sec- increase by 100 units/hr = 2 mL/hr PTT 80-114 sec - no change PTT 115-129 sec - decrease by 50 units/hr = 1 mL/hr PTT 130-145 sec - stop infusion for 30 min then decrease by 100 units/hr = 2 mL/hr PTT greater than 145 sec - stop infusion for 60 min then decrease by 200 units/hr = 4 mL/hr PTT greater than 145 sec X 2 - call private household worker See Bolus dosing guidance for aPTT values between 60-70 seconds under PRN medications , Routine Rate/Dose Verify 04/29/2011 6:00 PM EDT 700 Units/hr 14 mL/hr lisinopril (PRINIVIL;ZESTRIL) tablet 2.5 mg Given 04/30/2011 9:00 AM EDT 2.5 mg 2.5 mg, Oral, DAILY, First dose on Wed04/30/11 at 0900, Until Discontinued, Routine metoprolol succinate (TOPROL-XL) XL tablet 25 Given 9:00 AM EDT 25 mg mg 25 mg, Oral, DAILY, First dose on Wed04/30/11 at 0900, Until Discontinued, Routine nitroGLYcerin (NITROSTAT) SL tablet 0.4 mg Given 04/29/2011 5:55 PM EDT 0.4 mg 0.4 mg, Sublingual, EVERY 5 MIN PRN, Starting on Wed04/29/11 at 1701, Until Wed04/30/11 at 195, Chest pain, May repeat every 5 minutes for a total of three doses. Notify provider if chest pain not relieved with nitroglycerin. Do not administer nitroglycerin if the patinet has received or taken phosphodiesterase (PDE-5) inhibitors such as sildenafil, tadalafil or vardenafil within the last 24 to 72 hours., Routine simvastatin (ZOCOR) tablet 40 mg Given 04/29/2011 7:00 PM EDT 40 mg 40 mg, Oral, EVERY EVENING, First dose on Wed04/29/11 at 1800, Until Discontinued, Routine sodium chloride 0.9 % flush 5 mL Given 04/30/2011 9:00 AM EDT 5 mLs 5 mL, Intravenous, 2 TIMES DAILY, First dose on Wed04/29/11 at 2100, Until Discontinued Given 04/29/2011 8:28 PM EDT 5 mLs topiramate (TOPAMAX) tablet 50 mg Given 04/30/2011 9:00 AM EDT 50 mg 50 mg, Oral, 2 TIMES DAILY, First dose (after last modification) on Wed04/29/11 at 2100, Until Discontinued, Routine Given 04/29/2011 8:28 PM EDT 50 mg zolpidem (AMBIEN) tablet 5 mg Given 04/29/2011 10:03 PM EDT 5 mg 5 mg, Oral, NIGHTLY PRN, Starting on Wed04/29/11 at 1702, Until Wed04/30/11 at 1956, Sleep, insomnia, Routine documented in this encounter Active and Recently Administered Medications Times are shown in EDT. Scheduled Medication Order 04/28/2011 04/29/2011 04/30/2011 aspirin EC tablet 325 mg (CANCELED) 0900 (Given - Provider: Tu Orozco RN) 325 mg, Oral, DAILY, First dose on Wed at 0900, Until Discontinued, Routine citalopram (celeXA) tablet 60 mg (CANCELED) 0900 (Given - Provider: Tu Orozco RN) 60 mg, Oral, DAILY, First dose on 30/09 at 0900, Until Discontinued, Routine clopidogrel (PLAVIX) tablet 75 mg (CANCELED) 0900 (Given - Provider: Tu Orozco RN) 75 mg, Oral, DAILY, First dose on 30/09 at 0900, Until Discontinued, Routine famotidine (PEPCID) tablet 20 mg (CANCELED) 2027 (Given - Provider: Mery De La Fuente RN) 0900 (Given - Provider: Tu saleh RN) 20 mg, Oral, 2 TIMES DAILY, First dose o n Wed04/29/11 at 2100, Until Discontinued, Routine fluticasone (FLOVENT) 110 mcg/Actuation inhaler 1 puff (CANC ELED) 2027 (Given - Provider: Mery De La Fuente RN) 0900 (Given - Provider: Tu saleh RN) 1 puff, Inhalation, 2 TIMES DAILY, First dose on Wed04/29/11 at 2100, Until Discontinued, Shake well; Rinse mouth after administration., Routine lisinopril (PRINIVIL;ZESTRIL) tablet 2.5 mg (CANCELED) 899 (Given - Provider: Tu Orozco RN) 2.5 mg, Oral, DAILY, First dose on Wed at 0900, Until Discontinued, Routine metoprolol succinate (TOPROL-XL) XL tablet 25 mg (CANCELED) 899 (Given - Provider: Tu Orozco RN) 25 mg, Oral, DAILY, First dose on 30/09 at 0900, Until Discontinued, Routine simvastatin (ZOCOR) tablet 40 mg (CANCELED) 1900 (Given - Provider: Mery De La Fuente RN) 1700 (Due) 40 mg, Oral, EVERY EVENING, First dose o n Wed04/29/11 at 1800, Until Discontinued, Routine sodium chloride 0.9 % flush 5 mL (CANCELED) 2027 (Given - Provider: Mery De La Fuente RN) 0900 (Given - Provider: Tu saleh RN) 5 mL, Intravenous, 2 TIMES DAILY, First dose on Wed04/29/11 at 2100, Until Discontinued, Routine topiramate (TOPAMAX) tablet 50 mg (CANCELED) 2027 (Given - Provider: Mery De La Fuente RN) 0900 (Given - Provider: Tu saleh RN) 50 mg, Oral, 2 TIMES DAILY, First dose o n Wed04/29/11 at 2100, Until Discontinued, Routine Continuous Medication Order 04/28/2011 04/29/2011 04/30/2011 heparin 25,000 units in dextrose 5% 500 mL infusion (CANCELE D) 1800 (Rate/Dose Verify - Provider: Mery De La Fuente RN) 0243 (Rate/Dose Change - Provider: Tu He Sr., RN) 350-7,000 Units/hr = 7-140 mL/hr, Intrav enous, at 7-140 mL/hr, CONTINUOUS, Starting Wed04/29/11 at 1745, Until Madhuri 04/30/11 at 1956, Patient Weight 60-64 kg Initial dose - 750 units/hr = 15 mL/hr PTT le ss than 60 sec - increase by 250 units/h r = 5 mL/hr PTT 60-79 sec- increase by 100 units/hr = 2 mL/hr PTT 80-114 sec - no change PTT 115-129 sec - decrease by 50 units/hr = 1 mL/hr PTT 130-145 sec - sto p infusion for 30 min then decrease by 1 00 units/hr = 2 mL/hr PTT greater than 145 sec - stop infusion for 60 min then decrease by 200 units/hr = 4 mL/hr PTT greater than 145 sec X 2 - call house office r See Bolus dosing guidance for aPTT values between 60-70 seconds under PRN medications , Routine PRN Medication Order 04/28/2011 04/29/2011 04/30/2011 nitroGLYcerin (NITROSTAT) SL tablet 0.4 mg (CANCELED) 1754 (Given - Provider: Mery De La Fuente RN) 0.4 mg, Sublingual, EVERY 5 MIN PRN, Sta rting Wed04/29/11 at 1701, Until Madhuri 04/30/11 at 1956, Chest pain, May repeat every 5 minutes for a total of three doses. Notify provider if chest pain not relieve d with nitroglycerin. Do not administer nitroglycerin if the patinet has received or taken phosphodiesterase (PDE-5) inhibitors such as sildenafil, tadalafil or vardenafil within the last 24 to 72 hours., Routine zolpidem (AMBIEN) tablet 5 mg (CANCELED) 2202 (Given - Provider: Nancy Adam RN) 5 mg, Oral, NIGHTLY PRN, Starting 29/09 at 1702, Until Madhuri 04/30/11 at 1956, Sleep, insomnia, Routine documented in this encounter Care Teams Machine Shop Apprentice Relationship Specialty Start Date End Date Ramon Gomez MD PCP - General 09/23/10 07/28/[address] [place] [address] documented as of this encounter
--- OUTSIDE RECORDS SUMMARY | 2022-08-15 01:38 | XMS_ITS | Encounter Summary ---
:1955 Author Organization [facility] Address [address] [place] [address] Care Team Providers Name Role Phone Jairon Gomez MD Primary Care Provider [phone] Encounter Details Date Type Department Care Team Description 04/15/2011 [facility] Iv[facility] Ramsey [facility] [place] [address] CARDIOTHORACIC [phone] SURGERY [place] [id number] (Wo rk) Social History Tobacco Use Types [...] tabletIndications: ASCVD mouth daily. (arteriosclerotic cardiovascular disease) documented as of this encounter Plan of Treatment Upcoming Encounters Date Type Specialty Care Team Description 09/04/2022 Ancillary Procedure Radiology Aissatou Briggs Canc eled (D-SCHED ERROR TRANSPLANTER ORCHID / CORRECTION ) [address] [place], [place] [id number] (Wo rk) documented as of this encounter Visit Diagnoses Not on filedocumented in this encounter Care Teams Wood Sawyer Relationship Specialty Start Date End Date Jairon Gomez MD PCP - General 09/23/10 07/28/[address] [place] [address] documented as of this encounter
--- OUTSIDE RECORDS SUMMARY | 2022-08-15 01:38 | XMS_ITS | Encounter Summary ---
:1955 Author Organization [place] [address] Care Team Providers Name Role Phone Jairon Gomez MD Primary Care Provider [phone] Encounter Details Date Type Department Care Team Description 04/15/2011 Orders Only Psychiatry and Behavioral King Atkinson MD Health at [facility] [address] [place] [address] [place] [address] [phone] (Wo rk) Social History Tobacco Use Types Packs/Day Years Used Date Never Assessed Sex Assigned at Date Recorded Not on file documented as of this encounter Plan of Treatment Upcoming Encounters Date Type Specialty Care Team Description 09/04/2022 Ancillary Procedure Radiology Aissatou Briggs, Berto eled (D-SCHED ERROR STEEL MANAGER / CORRECTION ) [address] [place] [address] (Wo rk) documented as of this encounter Visit Diagnoses Not on filedocumented in this encounter Care Teams Digital Computer Operator Relationship Specialty Start Date End Date Jairon Gomez MD PCP - General 09/23/10 07/28/16 [address] [place], [place] [address] documented as of this encounter
--- OUTSIDE RECORDS SUMMARY | 2022-08-15 01:38 | XMS_ITS | Encounter Summary ---
:1955 Author Organization [facility] Address [address] [place] [address] Care Team Providers Name Role Phone Jairon Gomez MD Primary Care Provider [phone] Encounter Details Date Type Department Care Team Description 04/15/2011 Orders Only Psychiatry and Behavioral King Atkinson MD Health at [facility] Sum[address] molina [place] [address] [place] [address] [phone] (Wo rk) Social History Tobacco Use Types Packs/Day Years Used Date Never Assessed Sex Assigned at Date Recorded Not on file documented as of this encounter Plan of Treatment Upcoming Encounters Date Type Specialty Care Team Description 09/04/2022 Ancillary Procedure Radiology Aissatou Briggs, Berto velázquez (D-SCHED ERROR THIRD MILLER / CORRECTION ) [address] [place], [place] [id number] (Wo rk) documented as of this encounter Procedures Procedure Name Priority Date/Time Associated Diagnosis Comme nts FILM LIBRARY Routine 04/15/2011 10:15 AM Results for this STORAGE ONLY CT EDT procedure ar e in CHEST the results section. documented in this encounter Results FILM LIBRARY- STORAGE ONLY CT CHEST (04/15/2011 10:15 AM EDT) Specimen (Source) Anatomical Collection Method Collection Time Re ceived Time Location / / Volume Laterality 04/15/2011 10:15 AM EDT Narrative RAD - 03/06/2014 7:48 PM EDT This is a non-reportable exam. Procedure Note Alec Milian 03/06/2014Formatting of t his note might be different from the original. This is a non-reportable exam. King Boudreaux MD [facility] FILM LIBRARY ORDERABLES Performing Organization Address City/State/ZIP Code [facility] Number DH RAD DH RAD [address] [facility] [place] [address] documented in this encounter Visit Diagnoses Not on filedocumented in this encounter Care Teams [employer] Police Sergeant Relationship Specialty Start Date End Date Jairon Gomez MD PCP - General 09/23/10 07/28/[address] [place] [address] documented as of this encounter
--- OUTSIDE RECORDS SUMMARY | 2022-08-15 01:38 | XMS_ITS | Encounter Summary ---
:1955 [place] [address] Care Team Providers Name Role Phone Ramon Gomez MD Primary Care Provider Reason for Visit Reason Comments Chest Pain Encounter Details Date Type Department Care Team Description 04/15/2011 Surgery Turret Punch Operator Jonn Younger , CARDIAC CATHETERIZATION [facility] [place] [address] CARDIOLOGY DEPT. [phone] [place] [id number] (Wo rk) Social History Tobacco Use Types [...] documented in this encounter Discharge Instructions Patient InstructionsRenae Rodríguez MD - 04/19/2011 3:06 PM EDT 1. Please continue taking plavix for 3 months. Do not stop taking plavix until you have a discussionwith your doping supervisor. 2. Please continue taking atorvastatin, lisinopril, toprol, and aspirin. 3. Please follow up with your urologist for your left testicle pain. If you develop chest pain, shortness of breath, nausea, cold sweats, or any other concerning symptomplease seek immediate medical attention. AttachmentsThe following attachments cannot be sent through Care Everywhere. PERCUTANEOUS CORONARY INTERVENTION: WHAT TO EXPECT AT HOME (CHILEAN)documented in this encounter Medications at Time of [...] (DILANTIN) 100 Take 200 mg by 0 011 04/30/2011 mg ER capsule mouth 2 [...] going home with walker. Dr. Burden and Lane in to see pt prior to discharge. [...] CRC services; pt currently lives with in [place], [place]. CRC contact information left on patient [...] DME - patient requests VNA services from [facility] and FWW from [facility]. Referrals sent via edischarge with follow-up call to [facility] to bring walker to bedside. Social Support no concerns expressed. A: discharge to home today with VNA nursing and PT. P: This ad writer or colleague from the Office of Care Management will continue to follow patient to assist w/ changing needs and collaborate w/ pt, medical team and family to formulate a plan for discharge; CRC may be reached on beeper [phone] or by leaving a voice mail message at ext. [phone]. See Care Management note in CIS for detailed VNA/DME information upon discharge. Gaye Shore RN CRC Office of Care Management Pager [phone] Raquel Martinez MEd - 04/19/2011 12:50 PM EDT PT Junaid Arias Office of Care Management Oil Expeller Operator CRC (XXX) requested RS contact DME vendor for supply delivery today. VENDOR: [employer] [place], [place] Tel. #: [phone] EQUIPMENT ORDERED: Front wheeled walker SPECIAL INSTRUCTIONS: Deliver to room anticipated dc date: today referral sent via e-discharge CRC WILL SEND PRESCRIPTION and DISCHARGE SUMMARY (this is MD order) to [facility] [employer] [facility] Ninfa Martinez M.Ed. Oil Expeller Operator Pager [phone] Gissell Bruce PT - 04/19/2011 9:48 AM EDT Physical Therapy Progress Note Patient profile: Patient is a 55 y.o. male of Holley Fernandez MD, admitted on 04/15/2011 secondary to Chest pain [786.50] ST elevation CT (STEMI) [410.90]. Pt had a seizure. Pt [...] PT yet) and a front[facility]wheeled [facility]. [facility]. Pager: [phone] GISSELL BRUCE, 04/19/2011 Physical Therapy Rehabilitation Department T Holley Burden MD - 04/19/2011 9:45 AM [...] an inpatient with follow up planned at [facility]. Physical therapy evaluated patient with goal to return to home after discharge. Plan: # Inferior STEMI - plavix, [id number], metoprolol, lipitor, lisinopril - continue monitoring on [...] Recent Labs Basename 04/18/11 0424 04/17/11 0329 04/16/1135404/15/111704 ??? WBC 7.1 7.9 7.0 8.2 ??? HGB 13.0* 13.1* 12.5* 13.0* ??? PLATELET 117* 112* 127* 134* Recent Labs Basename 04/18/11 0424 04/17/11 1206 04/17/11 0329 04/16/115 04/15/111704 ??? NA 136 -- 139 135 136 ??? K 3.6 3.9 3.4* 4.0 3.6 ??? CL 107 -- 110* 107 110* ??? CO2 19* -- 21* 20* 20* ??? BUN 21* -- 15 13 15 ??? CREATININE 0.89 -- 1.00 0.85 0.93 ??? GLUCOSE 129 -- 107 -- 106 Recent Labs Basename 04/18/11 0424 04/17/11 0329 04/16/11354 ??? CALCIUM 8.7 8.7 8.6 ??? MAGNESIUM [...] resolved. Plan: # Inferior STEMI - plavix, [id number], lipitor - continue monitoring on tele - [...] x3. No complaints, denies pain/sob. Right groin KILEY/CDI. Meds given, assessment done. Pt encouraged to call for assistance, call bowles in reach. Jason East PT - 04/17/2011 8:34 PM EDT Physical Therapy Evaluation Patient profile: Pt. is a 55 y.o. y.o. male admitted on 04/15/2011 by Holley Fernandez MD from [facility] where he went due to chest pain that also radiated to his face. He also had a seizure, and was found to have an acute STEMI and was transferred to [facility] for management. He went to nursery laborer on 1 and was found to have [...] use the walker and walk more with medical staff credentialing coordinator. Balance: Sitting: in recliner he was steady. [...] discussed with nursing and MD staff; Pt nirmal need a rolling walker and continued PT [...] home on Wednesday. Pt to mobilize with medical staff credentialing coordinator on Wednesday, and will have a PT [...] benefit from an OT consult, and a NUCLEAR INSTRUCTOR consult would be recommended if he is having swallowing issues. Total time spent with patient: 49 minutes-Eval Total timed interventions: 0 minutes JASON EAST, PT 04/17/2011 Pager: [phone] Physical Therapy Rehabilitation Department Tiesha Sousa RN [...] diet guidelines briefly reviewed. Phase II Referral: [facility] Activity Summary: By discharge, patient will be [...] flexors, reflexes normal bilaterally Recent Labs Basename 04/17/119 04/16/1135404/15/111704 ??? WBC 7.9 7.0 8.2 ??? HGB 13.1* 12.5* 13.0* ??? PLATELET 112* 127* 134* Recent Labs Basename 04/17/11 03204/16/115 04/15/111704 ??? NA 139 135 136 ??? K [...] resolved. Plan: # Inferior STEMI - plavix, [id number], metoprolol, lipitor, lisinopril - continue monitoring on [...] flexors, reflexes normal bilaterally Recent Labs Basename 04/16/1135404/15/111704 ??? WBC 7.0 8.2 ??? HGB 12.5* 13.0* ??? PLATELET 127* 134* Recent Labs Basename 04/16/1135404/15/111704 ??? NA 135 136 ??? K 4.0 3.6 ??? CL 107 110* ??? CO2 20* 20* ??? BUN 13 15 ??? CREATININE 0.85 0.93 ??? GLUCOSE -- 106 Recent Labs Basename 04/16/11354 ??? CALCIUM 8.6 ??? MAGNESIUM 0.73 ??? PHOS 3.4 Recent Labs Basename 04/16/1135404/15/11201404/15/111704 ??? CK 2152* 3558* 195 ??? TROPONINT 5.22* 9.25* 0.12* Recent Labs Basename 04/16/11354 ??? AST 162* ??? ALT 44 ??? [...] obtained. Plan: # Inferior STEMI - plavix, [id number], metoprolol, lipitor, lisinopril - continue monitoring on tele # Left sided weakness - # Seizure disorder - topiramate - dilantin # Proph DVT: heparin GERD: famotidine # Full Code RENAE RODRÍGUEZ 04/16/2011 Sonia Cobb, TRES - 04/16/2011 9:00 [...] read by team. Pain resolving without intervention Cristina Guerra RN - 04/15/2011 8:54 PM EDT (1944) Rcd pt in bed. Sleepy but arousable. [...] stating he is hungry. Ate small amount fih-d-zxdvar. (0040) States chest hurts when he moves. Pain med offered - accepted. Sonia Cobb RN - 04/15/2011 6:30 PM EDT Pt arrive from nursery laborer sedated but arousable, shivering c/o cold, speech garbled difficult to understand, unable to answer questions clearly, c/o confusion, disoriented to time, place and event, left facial droop noted , left sided weakness, pt c/o left mid sternal chest pain 02/08 seen by intervention alist Dr. Silver stating [...] history of tobacco abuse who presented to [facility] this am with left sided chest pain radiating to his left face and left arm concerning for a STEMI as well as a reported seizure who is being transferred to [facility] for further evaluation and management. Patient apparently awoke this am ~ 6am with left sided chest pain which he initially thought was just gas so he did not think much of it. He got up and ready for work. 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 He was subsequently brought to the [facility] ED by ambulance. Upon presenting to the [facility] - patient vitals were: HR 74, BP [...] on a nitro drip and transferred to [facility]. Upon arrival to the [facility] ED he was on 60 mcg/hr gtt with chest discomfort 7/10 with radiation to the left face and neck with no nausea, but with diaphoresis and shortness of breath. Patient was taken directly to the nursery laborer forrevascularization. In the nursery laborer, patient was found to have LCx 100% [...] the future however. Upon admission to the [facility] currently patient reports improvement in his symptoms. [...] his 50s unknown type - sister 2/2 CT at age 51 Other familial conditions - [...] aVF. ST depressions in anterior leads V2-V4 [facility] - NSR rate 63. Q waves in II, III, aVF. 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 EMS took patient to [facility] 144/88, 98% on RA with numbness [...] 109, LDL 86, TSH 0.55 Trop 0.12(1705pm), 9.25(2014pm) 5.22(3am) CPK 195, 3558 and 2152 INR 1.1 UA neg CXR: no infiltrates or opacities, no cardiomegaly, and no over pulmonary edema, possible left pleural effusion( Cardiac Cath 100% LCX with PCI using BMS ECGs 04/15/11 @ 2015pm: SB @ 57bpm, inferior Q waves with [...] limited by expedience of getting patient to Turret Punch Operator HPI Junaid Arias is a 55 y.o. male who presents with chest pain in transfer from [facility]. The pain started on awakening around 6am. [...] 60 mcg IV nitroglycerin with chest discomfort 7/10 with radiation to [...] Chest pain: new, needed workup ST elevation CT (STEMI): new, needed workup Amount and/or Complexity [...] CXR Patient able to go straight to nursery laborer CRITICAL CARE DOCUMENTATION: Is there a high [...] and documentation. 04/15/2011 Heike Woodall MD 04/15/11 5789 Blanca Mancia RN - 04/15/2011 4:10 PM [...] and he is being treated for his CT. He complained of severe testicular pain to [...] referred the patient to a urologist in [place] who then referred to a pain clinic. [...] HISTORY Lives with his girlfriend Works in [employer] EtOH: denies Tobacco: quit 3 years ago, [...] denies masses or difficulty swallowing CVS: recent CT Respiratory: denies shortness of breath, denies cough [...] history of tobacco abuse who presented to [facility] this am with left sided chest pain radiating to his left face and left arm concerning for a STEMI as well as a reported seizure who is being transferred to [facility] for further evaluation and management. Patient apparently awoke this am ~ 6am with left sided chest pain which he initially thought was just gas so he did not think much of it. He got up and ready for work. Went to [employer] for a living and was using a [...] called. He was subsequently brought to the [facility] ED by ambulance. Upon presenting [...] on a nitro drip and transferred to [facility]. Upon arrival to the [facility] ED he was on 60 mcg/hr gtt with chest discomfort 10 with radiation to the left face and neck with no nausea, but with diaphoresis and shortness of breath. Patient was taken directly to the nursery laborer forrevascularization. In the nursery laborer, patient was found to have LCx 100% [...] Studies and Lab Data: Recent Labs Basename 04/19/11 0518 04/18/11 0424 04/17/11 0329 04/16/11 0355 04/15/111704 ??? WBC 7.1 7.1 7.9 7.0 8.2 ??? HGB 13.8 13.0* 13.1* 12.5* 13.0* ??? PLATELET 123* 117* 112* 127* 134* Recent Labs Basename 04/19/11 0518 04/18/11 0424 04/17/11 1206 04/17/11 0329 04/16/11 0355 04/15/111704 ??? NA 137 136 -- 139 135 136 ??? K 3.7 3.6 3.9 3.4* 4.0 -- ??? CL 106 107 -- 110* 107 110* ??? CO2 24 19* -- 21* 20* 20* ??? BUN 20 21* -- 15 13 15 ??? CREATININE 1.08 0.89 -- 1.00 0.85 0.93 ??? GLUCOSE 101 129 -- 107 -- 106 Recent Labs Basename 04/19/11 0518 04/18/11 0424 04/17/119 ??? CALCIUM 9.0 8.7 8.7 ??? MAGNESIUM 0.79 0.77 0.75 ??? PHOS 3.5 3.2 1.8* Recent Labs Basename 04/16/11 1815 04/16/115 04/15/112014 ??? CK 1374* 2152* 3558* ??? [...] The lesion was predilated with a 1.5mm New Era 12mm balloon with a maximum inflation pressure of 12 atmospheres. A premounted 2.50 x 14 mm Integrity was deployed with a maximum inflation pressure of 11 atmospheres. Following stent deployment, the lesion was dilated using a 2.5mm NC Quantum New Era 12 balloon with a maximum inflation pressure [...] volume approx 6 cc. Right testis volume [id number] cc. Pending Studies and Lab Data: None [...] PT yet) and a front-wheeled [facility]. [facility]. Discharge to: [...] plavix until you have a discussionwith your doping supervisor. 2. Please continue taking atorvastatin, lisinopril, toprol, and aspirin. 3. Please follow up with your urologist for your left testicle pain. If you develop chest pain, shortness of breath, nausea, cold sweats, or any other concerning symptomplease seek immediate medical attention. General Instructions Future Appointments and Orders Future Orders Please Complete By Expires AMB REFERRAL TO CARDIAC REHAB [[id number] Custom] Process Instructions: If no progress note charted, please enter Clinical details in comments. Scheduling Instructions: Comments: Questions: Responses: Reason for referral STEMI AMB REFERRAL TO CARDIOLOGY [[id number] Custom] Process Instructions: If no progress note charted, please enter Clinical details in comments. Scheduling Instructions: Comments: Questions: Responses: Reason for referral s/p inferior STEMI AMB REFERRAL TO UROLOGY [[id number] Custom] Process Instructions: If no progress note charted, please enter Clinical details in comments. Scheduling Instructions: Comments: Questions: Responses: Reason for referral left testicle atrophy DH CM HOME HEALTH REFERRAL [[id number] CPT(R)] Process Instructions: Scheduling Instructions: Comments: DOCUMENTATION FOR VNA SERVICES (INCLUDING THOSE PATIENTS WITH MEDICARE COVERAGE REQUIRING HOME VNA SERVICES AND/OR HOSPICE SERVICES) PATIENT'S LOCATION: Junaid Arias [address] [place] [phone] (home) Redye Hand's Name: spouse In discussion with the attending physician, it is certified that this patient is under their care and that they, or a nurse practitioner, clinical nurse specialist or physician's assistant grocery store manager who is working directly with them, had [...] effort and are for medical reasons or lutheran services of infrequently or of short duration when for other reasons) All VNA agencies which cover the area of patient's residence have been reviewed, either verbally mario alberto writing, and patient/family have chosen the home health care agency as follows for home services: HOME HEALTH CARE AGENCY: [facility]. PHONE: [phone] FAX: [phone] Please note that any additional orders needs or changes will need to be obtained from this patient's PCP: RAMON GOMEZ MD [facility] [phone] [facility] [id number] Questions: Responses: Agency name and contact information [facility] Patient location post discharge own home What services are requested Registered Nurse Physical Therapy Start date 04/20/2011 Responsible MD post discharge contact info PCP WALKER STANDARD [[id number] Custom] Process Instructions: Scheduling Instructions: Comments: Patient Name: Junaid Arias : 1955 Discharge Planning Note: DME DME Company: [employer] 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 Attending MD: Dr. Holley Burden Delivery Information: Rm 436A today DME Company notified via e-discharge with call to yellow pages space salesperson to anticipate order and review delivery information. Demographics and insurance information sent via e-discharge. Questions: Responses: For questions regarding this document or issues relating to this hospitalization on the Medical Service, please contact your inpatient physician through the [facility] Corporation Secretary . Issues after hours and on weekends will be handled by the Hospitalist staff on-call. Signed: RENAE RODRÍGUEZ Consult Note - Levon Russell MD - 04/17/2011 7:54 AM EDT NEUROLOGY INPATIENT CONSULTATION FOLLOW-UP NOTE IP UNIT: ICU 31 TIME Spent: 20 min Junaid Arias 55 y.o. male This patient was seen/discussed with teaching faculty Dr. Pee Russell M.D.; see his/her noted for confirmatory and/or revisionary documentation. 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 5/5 bilaterally lower ext. [...] L 3rd branch of Trigeminal. Coordination: Normal miczwq-fstq-bkipfu, rapid alternating movements, no dysmetria Gait: not [...] TBI, also hx of CVA, transferred to [facility] on 04/15 for treatment of STEMI (BMS [...] patient. x Recommendations are above, please page [phone] if further consultation required. Thank you for this consultation. Stevenson Boudreaux MD Inpatient Consult Service Code Determination: Maximus Hx, Exam, MDM & CHRISTOS/CPT Code with ? X? . All mcclelland components in the row must be met to qualify for a given code. HISTORY EXAM MDM CHRISTOS / CPT CODE PF PF Straightforward 3200 / 86623 EPF EPF Straightforward 3210 / 72125 D D Low 3220 / 54193 x C x C x Moderate 3230 / 96223 C C High 3240 / 33230 I saw and evaluated the patient with [...] and seizure d/o, admitted following presentation to [facility], with Inferior STEMI, seizure and left sided sensory loss and weakness. Neurology consulted for possible stroke. INTERIM HPI: -Patient still complains of left sided facial numbness, left eye blurriness, and left upper extremity weakness and entire left sided sensory deficit. -Patient describes prior stroke as affecting the right side of his body and his speech, occurred 4 years ago in [place]. -No report of seizure overnight. 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 5/5 RLE and 4+ for extensor and [...] or vibratory sense on LUE. Coordination: Normal zfqlwp-qapf-fznvjk, rapid alternating movements, some sluggishness with left [...] TBI, also hx of CVA, transferred to [facility] on 04/15 for treatment of STEMI (BMS [...] follow patient. Recommendations are above, please page [phone] if further consultation required. Stevenson Boudreaux MD Inpatient Consult Service Code Determination: Maximus Hx, Exam, MDM & CHRISTOS/CPT Code with ? X? . All mcclelland components in the row must be met to qualify for a given code. HISTORY EXAM MDM CHRISTOS / CPT CODE PF PF Straightforward 3200 / 00077 EPF EPF Straightforward 3210 / 56310 D D Low 3220 / 88817 x C x C x Moderate 3230 / 73999 C C High 3240 / 46543 ... I saw and evaluated the patient [...] - 04/16/2011 3:51 PM EDT Miscellaneous - Provider, Scanning - 04/16/2011 3:51 PM EDT Consult Note [...] since childhood who was admitted for inferior CT after presenting this morning with chest pain. [...] studies were negative. EKG showed evidence of CT and he was transferred to [facility] where he underwent cardiac catheterization and stenting of the left circumflex vessel. Upon arrival at [facility] he suffered a generalized tonic-clonic seizure. The [...] History: Lives with his girlfriend. 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 There is agraphesthesia, left. Coordination: Normal fliyde-yjme-aynjvu, rapid alternating movements, finger taps on the [...] follow patient. Recommendations are above, please page [phone] if further consultation required. Andreina Acevedo MD Resident in Neurology documented in this encounter Plan of Treatment Upcoming Encounters Date Type Specialty Care Team Description 09/04/2022 Ancillary Procedure Radiology Aissatou Briggs Canc eled (D-SCHED ERROR STRETCHER HELPER / CORRECTION ) [address] [place] [address] (Wo rk) Scheduled Orders Name Type Priority [...] the results section. GC/CHLAMYDIA Routine 04/19/2011 11:04 ([facility]/CGP/APD/NLH) AM EDT GC/CHLAM Routine 04/19/2011 11:04 Results [...] Routine 04/16/2011 6:15 Results f or this ([facility]) PM EDT procedure are i n the [...] Routine 04/16/2011 3:55 Results f or this ([facility]/CG) AM EDT procedure are i n the [...] Routine 04/15/2011 8:15 Results f or this ([facility]/CG) PM EDT procedure are i n the [...] EKG 12-LEAD STAT 04/15/2011 6:[address] Results f or this PM EDT (STEMI) [...] Normal epididymides. 4. Small right hydrocele. Holley ANDRADE GEN ORDERABLES REFLEX LAB-GC/CHLAM (04/19/2011 11:04 AM EDT) P athologist Signature GC Gene Amp Negative Negative CERNER MILLENNIUM Comment: The only FDA approved specimen types for this assay are cervix, vagina, urethra and urine. ??The sensitivity and specifi city of the assay for other specimen types has not been determined. GC Source Urethra MICHELL GONZALEZIUM Chlamydia Gene Amp Negative Negative MICHELL ANDRADE ENNIUM Comment: The only FDA approved specimen types for this assay are cervix, vagina, urethra and urine. ??The sensitivity and specifi city of the assay for other specimen types has not been determined. Chlamydia Source Urethra MICHELL ERNANDEZ NIUM Specimen Anatomical Collection Method Collection Time Receive d Time (Source) Location / / Volume Laterality Specimen of 04/19/2011 11:04 04/19/2011 unknown material AM EDT 11:50 AM ED T (specimen) Holley Burden MD MICROBIOLOGY - GENERAL ORDER INNA Performing Organization Address City/State/[place] [address] MICHELL PEÑA Urine culture Clean Catch Urine (04/19/2011 11:04 AM EDT) [facility] Method Time Signature [facility]rine Culture [facility] ? Patient Name: JUNAID ARIAS ? Ordered By: HOLLEY BURDEN ? MR#: [id number] ?LOC: ??[facility] ? /Sex: ??1955 (55 years), [...] - GENERAL ORDER INNA Performing Organization Address City/[facility]/ZIP Code Phon e Number [address] CERNER MILLENNIUM Urinalysis with microscopic (04/19/2011 11:04 AM EDT) Patholo gist Method Time Signature Glucose UA [...] Appearance UA Clear Clear CERNER MILLENNIUM Spec [place] UA 1.010 1.002 - CERNER 1.030 MILLENNIUM [...] Burden MD URINE ORDERABLES Performing Organization Address City/[facility]/ZIP Code Phon e Number [address] CERNER MILLENNIUM REFLEX LAB-A-DIFF (04/19/2011 [...] Christianson MD HEMATOLOGY ORDERABLES Performing Organization Address City/State/[facility] [place] [address] CERNER MILLENNIUM Phosphorus (04/19/2011 5:18 AM EDT) P athologist Signature Phosphorus 3.5 2.5 - 4.5 CERNER mg/dL MILLENNIUM Specimen Anatomical Collection Method Collection Time Receive d Time (Source) Location / / Volume Laterality Blood specimen 04/19/2011 5:18 AM 011 5:35 (specimen) EDT AM EDT Fritz Christianson MD CHEMISTRY ORDERABLES Performing Organization Address City/State/[place] [address] CERNER MILLENNIUM Magnesium (04/19/2011 5:18 AM EDT) P athologist Signature Magnesium 0.79 0.69 - 1.07 CERNER mmol/L MILLENNIUM Specimen Anatomical Collection Method Collection Time Receive d Time (Source) Location / / Volume Laterality Blood specimen 04/19/2011 5:18 AM 011 5:35 (specimen) EDT AM EDT Fritz Christianson MD CHEMISTRY ORDERABLES Performing Organization Address City/[facility]/ZIP Code Phon e Number [address] CERNER MILLENNIUM Basic metabolic panel [...] Organization Address City/State/ZIP Code Phon e Number [place] [phone]P[address] [facility] MILL[facility] (ABNORMAL) CBC (with Diff) (04/19/2011 5:18 AM [...] Organization Address City/State/ZIP Code Phon e Number [place] [phone] HOSPITAL LAB[address]ORY [address] CERNER MILLENNIUM REFLEX LAB-A-DIFF [...] Organization Address City/State/ZIP Code Phon e Number [address] CERNER MILLENNIUM REFLEX LAB-SCAN, PERIPHERAL BLOOD (04/18/2011 4:24 AM EDT) Patholo gist Method Time Signature Plat Estimate Decreased CERNER MILLENNIUM RBC Morphology Normal [facility] Specimen Anatomical Collection Method Collection Time Receive d Time (Source) Location / / Volume Laterality Blood specimen 04/18/2011 4:24 AM 011 4:33 (specimen) EDT AM EDT Fritz Christianson MD HEMATOLOGY ORDERABLES Performing Organization Address City/[facility]/ZIP Code Phon e Number [address] CERNER MILLENNIUM Phosphorus (04/18/2011 4:24 AM EDT) P athologist Signature Phosphorus 3.2 2.5 - 4.5 CERNER mg/dL [facility] Specimen Anatomical Collection Method Collection Time Receive d Time (Source) Location / / Volume Laterality Blood specimen 04/18/2011 4:24 AM 011 4:33 (specimen) EDT AM EDT Fritz Christianson MD CHEMISTRY ORDERABLES Performing Organization Address City/[facility]/ZIP Code Phon e Number [address] CERNER MILLENNIUM Magnesium (04/18/2011 4:24 AM EDT) P athologist Signature Magnesium 0.77 0.69 - 1.07 CERNER mmol/L [facility] Specimen Anatomical Collection Method Collection Time Receive d Time (Source) Location / / Volume Laterality Blood specimen 04/18/2011 4:24 AM 011 4:33 (specimen) EDT AM EDT Fritz Christianson MD CHEMISTRY ORDERABLES Performing Organization Address City/State/ZIP [place] [address] CERNER MILLENNIUM (ABNORMAL) Basic metabolic panel (04/18/2011 4:24 AM EDT) P athologist Signature Glucose Lvl 129 60 - [...] Organization Address City/State/ZIP Code Phon e Number [place] [phone]OSPITAL [address] CERNER MILLENNIUM (ABNORMAL) CBC [...] Organization Address City/State/[place] [address] [facility] SwitchboardENNIUM REQUEST FOR 2ND READ CT HEAD (04/17/2011 [...] / / Volume Laterality Blood specimen 04/17/2011 12:06 1 (specimen) PM EDT 12:31 PM EDT Holley Burden MD CHEMISTRY ORDERABLES Performing Organization Address City/State/[place] [address] CERNER MILLENNIUM (ABNORMAL) REFLEX LAB-A-DIFF (04/17/2011 3:29 AM EDT) Patholo gist Method Time Signature Neutrophils % 67.9 34.0 [...] Organization Address City/State/ZIP Code Phon e Number [place] [phone]OSPITAL [address] CERNER MILLENNIUM (ABNORMAL) Phosphorus (04/17/2011 3:29 AM EDT) P athologist Signature Phosphorus 1.8 (L) 2.5 - 4.5 CERNER mg/dL MILLENNIUM Specimen Anatomical Collection Method Collection Time Receive d Time (Source) Location / / Volume Laterality Blood specimen 04/17/2011 3:29 AM 06/17/2 011 3:39 (specimen) EDT AM EDT Fritz Christianson MD CHEMISTRY ORDERABLES Performing Organization Address City/[facility] Phon e Number [address] CERNER MILLENNIUM Magnesium (04/17/2011 3:29 AM EDT) athologist Signature Magnesium 0.75 0.69 - 1.07 CERNER mmol/L MILLENNIUM Specimen Anatomical Collection Method Collection Time Receive d Time (Source) Location / / Volume Laterality Blood specimen 04/17/2011 3:29 AM 011 3:39 (specimen) EDT AM EDT Fritz Christianson MD CHEMISTRY ORDERABLES Performing Organization Address [facility] Phon e Number [address] CERNER MILLENNIUM (ABNORMAL) Basic [...] Organization Address City/State/[place] [address] CERNER MILLENNIUM (ABNORMAL) CBC (with Diff) (04/17/2011 3:29 AM EDT) P athologist Signature WBC 7.9 4.0 - 10.0 [...] Organization Address City/State/[place] [address] [facility] Phenytoin level, total and free (04/16/2011 6:15 [...] Not Calculated 8 - 12 % CERNER CT LLENNIUM Specimen Anatomical Collection Method Collection Time Receive d Time (Source) Location / / Volume Laterality Blood specimen 04/16/2011 6:15 PM 011 6:36 (specimen) EDT PM EDT Fritz Christianson MD CHEMISTRY ORDERABLES Performing Organization Address City/[facility]/ZIP Code Phon e Number [address] [facility] (ABNORMAL) Cardiac Enzymes (04/16/2011 6:15 PM EDT) athologist Signature Troponin-T 4.97 (H) <=0.03 CERNER ng/mL [facility] Comment: 0.03 ng/mL: Represents the 99th [...] of the [place] Society of Cardiology/[place] College of Cardiology Committee for the redefinition of myocardial infarction. Journal of the [place] College of Cardi ology 2000; 36: 959-969] CK, Total 1374 (H) 0 - 200 unit/L [facility] SwitchboardHONORHEALTH RE[facility]ABILIT[facility]ITALI UM Specimen Anatomical Collection Method Collection Time Receive d Time (Source) Location / / Volume Laterality Blood specimen 04/16/2011 6:15 PM 011 6:36 (specimen) EDT PM EDT Fritz Christianson MD CHEMISTRY ORDERABLES Performing Organization Address City/[facility]/ZIP Code Phon e Number [address] [facility] SwitchboardHONORHEALTH REHABILITATION HOSPITALIUM MRI BRAIN WO CONTRAST (04/16/2011 12:25 PM [...] Component Value Ref Test Analysis Performed At [facility] Range Method Time Signature VB Text VASCUBASE Report Department: Vascular Surgery Lab Patient: [id number] (JUNAID ARIAS) CPT Code: 56671 ICD-9: 434.91 Referring Physician: FRITZ CHRISTIANSON Indication: [...] are based on comparisons performe d at [facility] between noninvasive carotid artery d uplex data and arteriographic evaluation of the same patients from [id number]. Q / A Sens. Spec. PPV NPV [...] Procedure: ? Transthoracic Echocardiogram ? Patient: ? JUANA Sánchez ? (Age): 1955(55) Med Rec#: ?[id number] ?Sex: ?M ? Site Loc: ?[facility] ?Ht / Wt: ??162(cm)/63(kg) Pt. Loc: ? [facility] ? BSA: ?1. Study Date: ?04/16/2011 ?Pt. Type: Inpatient Tape: ? Referring: Fritz Christianson Referring: LEVON RAMOS J Client Service Executive: Miguel Lockett [facility] Client Service Executive 2: Marciano Sandoval Diagnosis: ??Acute CT (410.90) CPT Code(s): ??Echo Full (84251), ??Spec tral Doppler (41287), ??Color Doppler (88541), ??Saline Contrast (000) , Indication(s): ??Myocardial infarction [...] ? Mid-Inferior ?Normal ? Mid-Inferoseptal ?Normal ? New Era-Septal ? Normal ? New Era-Anterior ? Normal ? New Era-Lateral ?Hypokinetic ? New Era-Inferior ? Normal ? New Era-Tip ?Normal ? Chambers ?Value ?Units (Range) ? [...] been electronically sign ed by: _ Carlos AGrace Núñez M.D. ? 04/16/2011 10:50:24 Images reviewed and interpretation verif ied [facility] Cardiac Ultrasound Laboratory Procedure Note 04/16/2011 Procedure: Transthoracic Echocardiogram Patient: JUANA PLATA(Age): [birth year]) Med Rec#: [id number] Sex: M Site Loc: [facility] Ht / Wt: 162(cm)/63(kg) Pt. Loc: [facility] BSA: 1.68 Study Date: 04/16/2011 Pt. Type: Inpatie nt Tape: Referring: Fritz Christianson Referring: LEVON RAMOS J Client Service Executive: Miguel Lockett [facility] Client Service Executive 2: Marciano Sandoval Diagnosis: Acute CT (410.90) CPT Code(s): Echo Full (13054), Spectral Doppler (11941), Color Doppler (55899), Saline Contrast (000), Indication(s): Myocardial infarction Rhythm: [...] Pulmonary Artery The main pulmonary artery appears janette l. Venous The inferior vena cava appears [...] Akinetic Mid-Posterolateral Hypokinetic Mid-Inferior Normal Mid-Inferoseptal Normal New Era-Septal Normal New Era-Anterior Normal New Era-Lateral Hypokinetic New Era-Inferior Normal New Era-Tip Normal Chambers Value Units (Range) EF Bi-p [...] 10:50: 24 Images reviewed and interpretation ver [facility] Fritz Christianson MD ECHO [...] Signature Troponin-T 5.22 (H) <=0.03 CERNER ng/mL MILLENNIUM Comment: result rechecked-WC 0.03 ng/mL: Represents the [...] of the [place] Society of Cardiology/[place] College of Cardiology Committee for the redefinition of myocardial infarction. Journal of the [place] College of Cardi ology 2000; 36: 959-969] CK, Total 2152 (H) 0 - 200 unit/L CERNER MILLENNI UM Specimen Anatomical Collection Method Collection Time Receive d Time (Source) Location / / Volume Laterality Blood specimen 04/16/2011 3:55 AM 011 3:58 (specimen) EDT AM EDT Frtiz Christianson MD CHEMISTRY ORDERABLES Performing Organization Address City/State/[place] [address] CERNER MILLENNIUM (ABNORMAL) REFLEX LAB-A-DIFF (04/16/2011 3:55 AM EDT) [facility] gist Method Time Signature Neutrophils % 77.7 [...] Organization Address City/State/[place] [address] CERNER MILLENNIUM (ABNORMAL) BMP W/FASTING GLUCOSE (04/16/2011 3:55 AM EDT) P athologist Signature Glucose 142 (H) 65 - [...] of Diabetes Mellitus, Position Statement from the [place] Diabetes Association. ??Diabete s Care, Volume 33, [...] Christianson MD CHEMISTRY ORDERABLES Performing Organization Address [facility] Phon e Number [address] CERNER MILLENNIUM Phosphorus (04/16/2011 3:55 AM EDT) P athologist Signature Phosphorus 3.4 2.5 - 4.5 CERNER mg/dL MILLENNIUM Specimen Anatomical Collection Method Collection Time Receive d Time (Source) Location / / Volume Laterality Blood specimen 04/16/2011 3:55 AM 011 3:56 (specimen) EDT AM EDT Fritz Christianson MD CHEMISTRY ORDERABLES Performing Organization Address [facility] Phon e Number [address] CERNER MILLENNIUM Magnesium (04/16/2011 3:55 AM EDT) P athologist Signature Magnesium 0.73 0.69 - 1.07 CERNER mmol/L MILLENNIUM Specimen Anatomical Collection Method Collection Time Receive d Time (Source) Location / / Volume Laterality Blood specimen 04/16/2011 3:55 AM 011 3:56 (specimen) EDT AM EDT Fritz Christianson MD CHEMISTRY ORDERABLES Performing Organization Address City/[facility] [place] [address] CERNER MILLENNIUM (ABNORMAL) CBC [...] Christianson MD HEMATOLOGY ORDERABLES Performing Organization Address City/[facility] [place] [address] CERNER MILLENNIUM Hemoglobin A1c (04/16/2011 3:55 AM EDT) P athologist Signature Hemoglobin A1C 5.0 4.3 - 6.1 CERNER % MILLENNIUM Est Avg Gluc 97 mg/dL CERNER MILLENNIUM Comment: eAG equivalents for HbA1c percentages: HbA1c(%) ?eAG(mg/dL) 6.0 ?126 6.5 ?140 7.0 ?154 7.5 ?169 8.0 ?183 8.5 ?197 9.0 ?212 9.5 ?226 10.0 ? 240 Limitations: The eAG calculation has not been validated on women, individuals below 18 years old and above 70 years old, and individuals with hemoglobinopathies. Additional resources are available on [facility] ADA website: ??http://professional.diabetes.org/gluc osecalculator.aspx Reference: Hua PRITCHETT, Jessica J, Nidhi R, et al. ??Tr anslating the A1C assay into estimated average glucose values. ??Diabetes Care 2008:31(8):9387-4034. Specimen Anatomical Collection Method Collection Time Receive d Time (Source) Location / / Volume Laterality Blood specimen 04/16/2011 3:55 AM 011 (specimen) EDT 11:39 AM EDT Fritz Christianson MD CHEMISTRY ORDERABLES Performing Organization Address City/State/[place] [address] [facility] SwitchboardHONORHEALTH REHABILITATION HOSPITALIUM Lipid panel (fasting) (04/16/2011 3:55 AM EDT) P athologist Signature Chol, Total 153 <=199 mg/dL [facility] SwitchboardHONORHEALTH REHABILITATION HOSPITALIUM Comment: Recommendations of the NCEP Adult Treatm ent Panel for the following risk cutoff thresholds for the [place] populatio n: Desirable: <200 mg/dL Borderline High: 200-239 mg/dL High: > or = 240 mg/dL Triglycerides 109 <=149 mg/dL [facility] Comment: Reference Range: Normal triglycerides: ??<150 mg/dL Borderline high: ??150-199 mg/dL High: ??200-499 mg/dL Very high: ??>fl=361 mg/dL LOU 2001; 285(19):7369-2981 HDL 45 >=40 mg/dL MICHELL PEÑA Comment: Reference range: ??Low HDL: ?? < 40 mg/dL ??Normal: ?40-60 mg/dL ??Desirable: > 60 mg/dL LOU 2001; 285(19):0242-4407 LDL Cholesterol 86 <=99 mg/dL MICHELL CARDENAS Comment: Reference range: ?? Optimal: ?<100 mg/dL ?? Near Optimal/Above Optimal: ?? 100-1 29 mg/dL ?? Borderline high: ?130-159 mg/dL ?? High: ? 160-189 mg/dL ?? Very high: ?>oj=060 mg/dL LOU 2001: 285(19):1158-3033 Chol/HDL Ratio 3.4 ratio MICHELL IBRAHIM Comment: A Cholesterol to HDL ratio below 4:1 is desirable. ??Studies suggest that increased CAD risk occurs at ratios abov e 5 for females and above 6 for men. ? [place] Heart Association ??(htt p://www.americanheart.org) ? Gris Int Med, 1994; 121:641 ? AM J Med, 1998; 105(1A):48S Specimen Anatomical Collection Method Collection Time Receive d Time (Source) Location / / Volume Laterality Blood specimen 04/16/2011 3:55 AM 011 3:56 (specimen) EDT AM EDT Fritz Christianson MD CHEMISTRY ORDERABLES Performing Organization Address City/State/[place] [address] MICHELL PEÑA (ABNORMAL) APTT (04/16/2011 3:55 AM EDT) athologist [facility] PTT 23 (L) 25 - 37 sec CERNER MILLENNIUM Comment: Recommended therapeutic PTT range for fu ll dose unfractionated heparin is 80-114 seconds. Specimen Anatomical Collection Method Collection Time Receive d Time (Source) Location / / Volume Laterality Blood specimen 04/16/2011 3:55 AM 011 3:56 (specimen) EDT AM EDT Fritz Christianson MD HEMATOLOGY ORDERABLES Performing Organization Address City/[facility] [place] [address] CERNER MILLENNIUM Protime-INR (04/16/2011 3:55 AM EDT) athologist [facility] PT 14.6 12.3 - 14.7 CERNER sec MILLENNIUM Comment: [facility] Transfusion Committee Guidelines: I NR less than [...] Christianson MD HEMATOLOGY ORDERABLES Performing Organization Address City/[facility] [place] [address] CERNER MILLENNIUM (ABNORMAL) Hepatic function panel (04/16/2011 3:55 AM EDT) athologist [facility] Total Protein 5.5 (L) 6.4 - 8.3 [...] Christianson MD CHEMISTRY ORDERABLES Performing Organization Address City/[facility]/ZIP Code Phon e Number [address] CERNER MILLENNIUM TSH (04/16/2011 3:55 AM EDT) P athologist Signature TSH 0.55 0.27 - 4.20 CERNER mcIU/mL MILLENNIUM Specimen Anatomical Collection Method Collection Time Receive d Time (Source) Location / / Volume Laterality Blood specimen 04/16/2011 3:55 AM 011 3:56 (specimen) EDT AM EDT Fritz Christianson MD CHEMISTRY ORDERABLES Performing Organization Address City/[facility]/[place] [address] CERNER MILLENNIUM (ABNORMAL) Urinalysis (on admission) (04/15/2011 10:10 PM EDT) [facility] gist Method Time Signature Glucose UA Negative [...] Appearance UA Clear Clear CERNER MILLENNIUM Spec [place] UA >1.035 (H) 1.002 - CERNER 1.030 [...] Organization Address City/State/[place] [address] CERNER SwitchboardENNIUM EKG 12-LEAD Is a rhythm strip needed?: [...] 443 ms MUSE SYSTEM (Bezet) Calculated P Hartley 60 degrees MUSE SYSTEM Calculated R Hartley 13 degrees MUSE SYSTEM Calculated T Hartley 15 degrees MUSE SYSTEM INTERPRETATION Sinus bradycardia [...] Signature Troponin-T 9.25 (H) <=0.03 CERNER ng/mL [employer] [facility] [facility]UM Comment: result rechecked-Y 0.03 ng/mL: Represents the 99th percenti le [...] of the Joint [place] an Society of Cardiology/[place] College of Cardiology Committee for the redefinition of myocardial infarction. Journal of the [place] College of Cardi ology 2000; 36: 959-969] CK, Total 3558 (H) 0 - 200 unit/L CERNER MILLENNI UM Comment: result rechecked-[facility] Specimen Anatomical Collection Method Collection Time Receive d Time (Source) Location / / Volume Laterality Blood specimen 04/15/2011 8:15 PM 011 8:20 (specimen) EDT PM EDT Fritz Christianson MD CHEMISTRY ORDERABLES Performing Organization Address [facility] [place] [address] CERNER MILLENNIUM (ABNORMAL) Levetiracetam level (04/15/2011 8:15 PM EDT) [facility] Myer Method Time Signature Levetiracetam Lvl <2.0 (L) 12.0 - CERNER 46.0 MILLENNIUM mcg/mL Comment: Test Performed by: [place] [address] Clerk Manager: Brandy Mcmullen, Ph. D. Specimen Anatomical Collection Method Collection Time Receive d Time (Source) Location / / Volume Laterality Blood specimen 04/15/2011 8:15 PM 011 (specimen) EDT 10:03 PM EDT Fritz Christianson MD CHEMISTRY ORDERABLES Performing Organization Address City/[facility] [place] [address] CERNER MILLENNIUM (ABNORMAL) Topiramate level (04/15/2011 8:15 PM EDT) [facility] Myer Method Time Signature Topiramate Lvl <2.0 (L) 2.0 - 20.0 CERNER mcg/mL MILLENNIUM Comment: Test Performed by: [facility] Dpt of Lab Med and Pathology [address] [place] [address] Clerk Manager: Clif ventura III, M.D. Specimen Anatomical Collection Method Collection Time Receive d Time (Source) Location / / Volume Laterality Blood specimen 04/15/2011 8:15 PM 011 (specimen) EDT 10:02 PM EDT Fritz Christianson MD CHEMISTRY ORDERABLES Performing Organization Address City/[facility]/[place] [address] CERNER MILLENNIUM Phenytoin level, [...] Christianson MD CHEMISTRY ORDERABLES Performing Organization Address City/[facility]/ZIP Code Phon e Number [address] CERNER MILLENNIUM POCT GLUCOSE LAB USE ONLY (04/15/2011 6:47 PM EDT) athologist Signature POC Glucose 139 60 - [...] CARE TEST ORDERABLE S Performing Organization Address City/[facility]/[place] [address] CERNER MILLENNIUM (ABNORMAL) APTT Baseline Check (04/15/2011 6:30 PM EDT) P athologist Signature PTT 51 (H) 25 - 37 sec CERNER MILLENNIUM Comment: Recommended therapeutic PTT range for fu ll dose unfractionated heparin is 80-114 seconds. Specimen Anatomical Collection Method Collection Time Receive d Time (Source) Location / / Volume Laterality Blood specimen 04/15/2011 6:30 PM 011 6:39 (specimen) EDT PM EDT Heike Woodall MD HEMATOLOGY ORDERABLES Performing Organization Address City/State/ZIP Code Phon e Number [place] [phone]OS[address] CERNER MILLENNIUM EKG 12-LEAD [...] 454 ms MUSE SYSTEM (Bezet) Calculated P Hartley 63 degrees MUSE SYSTEM Calculated R Hartley 17 degrees MUSE SYSTEM Calculated T Hartley 14 degrees MUSE SYSTEM INTERPRETATION Normal sinus [...] Organization Address City/State/[place] [address] CERNER MILLENNIUM (ABNORMAL) Troponin T (04/15/2011 5:05 PM EDT) P athologist Signature Troponin-T 0.12 (H) <=0.03 CERNER ng/mL MILLENNIUM Comment: 0.03 [...] of the Joint [place] an Society of Cardiology/[place] College of Cardiology Committee for the redefinition of myocardial infarction. Journal of the [place] College of Cardi ology 2000; 36: 959-969] Specimen Anatomical Collection Method Collection Time Receive d Time (Source) Location / / Volume Laterality Blood specimen 04/15/2011 5:05 PM 011 5:27 (specimen) EDT PM EDT Heike Woodall MD CHEMISTRY ORDERABLES Performing Organization Address City/[facility]/ZIP [facility] [place] [address] CERNER MILLENNIUM CK (04/15/2011 5:05 PM EDT) P athologist Signature CK, Total 195 0 - 200 CERNER unit/L MILLENNIUM Specimen Anatomical Collection Method Collection Time Receive d Time (Source) Location / / Volume Laterality Blood specimen 04/15/2011 5:05 PM 011 5:27 (specimen) EDT PM EDT Heike Woodall MD CHEMISTRY ORDERABLES Performing Organization Address City/[facility]/ZIP [facility] [place] [address] CERNER MILLENNIUM Glucose, random (04/15/2011 5:05 PM EDT) P athologist Signature Glucose Lvl 106 60 - 199 CERNER mg/dL [facility] Comment: Diabetes: >=200 mg/dL plus symp toms Specimen Anatomical Collection Method Collection Time Receive d Time (Source) Location / / Volume Laterality Blood specimen 04/15/2011 5:05 PM 011 5:27 (specimen) EDT PM EDT Heike Woodall MD CHEMISTRY ORDERABLES Performing Organization Address City/[facility] Phon e Number [place] [phone] CERNER MILLENNIUM Creatinine, serum (04/15/2011 5:05 PM EDT) P athologist Signature Creatinine 0.93 0.80 - CERNER [...] Address City/State/ZIP Code Phon e Number [place] [phone] CERNER MILLENNIUM BUN (04/15/2011 5:05 PM EDT) athologist Signature BUN 15 10 - 20 CERNER mg/dL MILLENNIUM Specimen Anatomical Collection Method Collection Time Receive d Time (Source) Location / / Volume Laterality Blood specimen 04/15/2011 5:05 PM 011 5:27 (specimen) EDT PM EDT Heike Woodall MD CHEMISTRY ORDERABLES Performing Organization Address City/[facility]/[place] [address] CERNER MILLENNIUM (ABNORMAL) Electrolyte [...] Woodall MD CHEMISTRY ORDERABLES Performing Organization Address City/[facility]/[place] [address] CERNER MILLENNIUM (ABNORMAL) CBC (with Diff) (04/15/2011 5:05 PM EDT) athologist Signature WBC 8.2 4.0 - 10.0 CERNER x10(3)/mcL MILLENNIUM RBC 4.29 (L) 4.63 - CERNER 6.08 MILLENNIUM x10(6)/mcL Hemoglobin 13.0 (L) 13.7 - CERNER 17.5 gm/dL MILLENNIUM Hematocrit 36.5 (L) 40.0 - CERNER 51.0 % MILLENNIUM MCV 85.1 79.0 - CERNER 92.0 fL MILLENNIUM MCH 30.3 25.6 - CERNER 32.2 pg MILLENNIUM MCHC 35.6 32.0 - CERNER 36.5 gm/dL ENNIUM Platelets 134 (L) 145 - 370 CERNER [...] Woodall MD HEMATOLOGY ORDERABLES Performing Organization Address City/[facility]/[place] [address] [facility] EKG 12-LEAD Is a rhythm strip needed?: No; Reason for Exam:: Chest Pain (04/15/2011 4:13 PM EDT) [facility] gist Method Time Signature Ventricular rate 73 BPM MUSE SYSTEM Atrial Rate 73 BPM MUSE SYSTEM P-R Interval 138 ms MUSE SYSTEM QRS Duration 88 ms MUSE SYSTEM Q-T Interval 368 ms MUSE SYSTEM QTC Calculated 405 ms MUSE SYSTEM (Bezet) Calculated P [place] 58 degrees MUSE SYSTEM Calculated R [place] 46 degrees MUSE SYSTEM Calculated T [place] 76 degrees MUSE SYSTEM INTERPRETATION AGE AND GENDER SPECIFIC ECG ANALYSIS MUSE SYSTEM Normal sinus rhythm Inferior infarct , possibly acute * ACUTE CT ?? Abnormal ECG No previous ECGs available Confirmed by MD TIM, JONN ([id number]) on 04/16/2011 2:53:07 PM Specimen Anatomical Collection Method Collection Time Receive d Time (Source) Location / / Volume Laterality 04/15/2011 4:13 PM 1 2:53 EDT PM EDT Heike Woodall MD ECG ORDERABLES Performing Organization Address City/[facility]/ZIP Code Phon e Number MUSE SYSTEM documented in this encounter Visit Diagnoses Not on filedocumented in this encounter Administered Medications Inactive Administered Medications - up to 3 most recent administrations Medication Order MAR Action Action Date Dose Rate Site aspirin chewable tablet Given 04/15/2011 5:25 PM EDT 324 mg ONCE PRN, 1 dose, Starting on Wed04/15/11 at 1725, Until Wed04/15/11 at 1725, Intra-Operative (Intra-Procedure), Routine bivalirudin (ANGIOMAX) 250 mg New Bag 04/15/2011 5:11 PM EDT 1 03 mg/hr 20.6 mL/hr in sodium chloride 0.9% 50 mL infusion (INSURANCE SALESMAN) CONTINUOUS PRN, Starting on Wed04/15/11 at 1711, Until Wed04/16/11 at 1723, Cath (Intra-Procedure), Routine bivalirudin (ANGIOMAX) injection Given 04/15/2011 5:09 PM EDT 44.3 mg ONCE PRN, 1 dose, Starting on Wed04/15/11 at 1709, Until Wed04/15/11 at 1709, Intra-Operative (Intra-Procedure), Routine diphenhydrAMINE (BENADRYL) injection Given 04/15/2011 4:53 PM EDT 50 mg ONCE PRN, 1 dose, Starting on Wed04/15/11 at 1653, Until Wed04/15/11 at 1653, Itching, Intra-Operative (Intra-Procedure), Routine fentaNYL 50mcg/mL injection Given 04/15/2011 4:52 PM EDT 25 mcg ONCE PRN, 1 dose, Starting on Wed04/15/11 at 1652, Until Wed04/15/11 at 1652, Pain, Intra-Operative (Intra-Procedure), Routine fentaNYL 50mcg/mL injection Given 04/15/2011 5:44 PM EDT 12.5 mcg ONCE PRN, 1 dose, Starting on Wed04/15/11 at 1744, Until Wed04/15/11 at 1744, Pain, Intra-Operative (Intra-Procedure), Routine midazolam (VERSED) injection Given 04/15/2011 4:51 PM EDT 1 mg ONCE PRN, 1 dose, Starting on Wed04/15/11 at 1651, Until Wed04/15/11 at 1651, Sleep, Intra-Operative (Intra-Procedure), Routine niCARdipine (CARDENE) in sodium chloride Given 04/15/2011 5:28 P M EDT 200 mcg 0.9% injection ONCE PRN, 1 dose, Starting on Wed04/15/11 at 1728, Until Wed04/15/11 at 1728, Cath (Intra-Procedure), Routine niCARdipine (CARDENE) in sodium chloride Given 04/15/2011 5:29 P M EDT 200 mcg 0.9% injection ONCE PRN, 1 dose, Starting on Wed04/15/11 at 1729, Until Wed04/15/11 at 1729, Cath (Intra-Procedure), Routine niCARdipine (CARDENE) in sodium chloride Given 04/15/2011 5:29 P M EDT 200 mcg 0.9% injection ONCE PRN, 1 dose, Starting on Wed04/15/11 at 1729, Until Wed04/15/11 at 1729, Cath (Intra-Procedure), Routine niCARdipine (CARDENE) in sodium chloride Given 04/15/2011 5:30 P M EDT 200 mcg 0.9% injection ONCE PRN, 1 dose, Starting on Wed04/15/11 at 1730, Until Wed04/15/11 at 1730, Cath (Intra-Procedure), Routine documented in this encounter Active and Recently Administered Medications Times are shown in EDT. Scheduled Medication Order 04/17/2011 04/18/2011 04/19/2011 aspirin EC tablet 325 mg 0823 (Given - Provider: Lianna Gilbert RN) 0900 (Given - Provider: Tita Morrow RN) 0856 (Given - Provider: Agata Dimas RN) 325 mg, Oral, DAILY, First dose on Wed at 0900, Until Discontinued, Routine atorvastatin (LIPITOR) [...] (Given - Provid er: Lianna Gilbert RN) 0900 (Given - Provider: Tita Morrow RN) 0856 ( Given - Provider: Agata Dimas RN) 75 mg, Oral, DAILY, First dose on Madhuri 16/09 at 0900, Until Discontinued, Routine docusate sodium (COLACE) capsule 100 mg (CANCELED) 082 3 (Not Given - Provider: Lianna Gilbert RN - Reason: Patient/family refused)2044 (Not Given - Provider: Brooke Francis RN - Reason: Patient/family refused) 0900 (Not Given - Provider: Tita Morrow RN - Reason: Patient/family refused)2013 (Not Given - Provider: Lianna Gilbert RN - Reason: Patient/family refused) 0856 (Given - Provider: Sandee Castro) 100 mg, Oral, 2 TIMES DAILY, First dose on Wed04/15/11 at 2100, Until Discontinued, Routine famotidine (PEPCID) tablet 20 mg (CANCELED) 08 (Give n - Provider: Lianna Gilbert RN)2044 (Given - Provider: Brooke Francis RN) 0900 (Given - Provider: Tita Morrow RN)2013 (Given [...] (CANCELED) 2044 (G iven - Provider: Brooke Francis RN) 2013 (Given - Provider: Lianna Glibert RN) 220 mcg = 1 puff, Inhalation, [...] Routine topiramate (TOPAMAX) tablet 50 mg (CANCELED) 822 (Giv en - Provider: Lianna Gilbert RN) 899 (Given - Provider: Tita Morrow, TRES) 0856 ( Given - Provider: Agata Dimas RN) 50 mg, Oral, DAILY, First dose on 15/09 at 2030, Until Discontinued, Routine traZODone (DESYREL) tablet 200 mg (CANCELED) 2119 (Giv en - Provider: Brooke Francis RN) 2222 (Given - Provider: Lianna Gilbert RN) 200 mg, Oral, NIGHTLY, First dose on Wed04/15/11 at 2100, Until Discontinued, Routine PRN Medication Order 04/17/2011 04/18/2011 04/19/2011 acetaminophen (TYLENOL) tablet 650 mg (CANCELED) 0321 (Given - Provider: Constance Winn, RN) 1109 (Given - Provider: Tita Morrow RN) 650 mg, Oral, EVERY 4 HOURS PRN, Startin g Wed04/15/11 at 1907, Until Wed04/19/11 at 1738, Pain, Headaches, Maximum dose of [...] Routine documented in this encounter Care Teams Alarm Service Technician Relationship Specialty Start Date End Date Ramon Gomez MD PCP - General 09/23/10 07/28/16 [address] [place] [address] documented as of this encounter
--- OUTSIDE RECORDS SUMMARY | 2022-08-15 01:38 | XMS_ITS | Encounter Summary ---
:1955 Author Organization [facility] [place] [address] Care Team Providers Name Role Phone Jairon Gomez MD Primary Care Provider [phone] Encounter Details Date Type Department Care Team Description 04/15/2011 Orders Only Cardiology at [facility] [place] [place] Kj Sanchez ASCVD (arteriosclerotic [facility] [place] cardiovascular disease) [facility] (Primary Dx) [place], [place] CENTER [address] CARDIOLOGY DEPT. [phone] [place] [id number] Social History Tobacco Use Types Packs/Day Years Used Date Never Assessed Sex Assigned at Date Recorded Not on file documented as of this encounter Plan of Treatment Upcoming Encounters Date Type Specialty Care Team Description 09/04/2022 Ancillary Procedure Radiology Aissatou Briggs, Berto elelake (D-SCHED ERROR SPORTS MEDICINE SPECIALIST / CORRECTION ) [address] [place] [address] (Wo rk) Scheduled Orders Name Type Priority Associated Diagnoses Order S chedule EKG 12-LEAD Is a ECG Routine ASCVD (arteriosclerotic Daily for 2 Occurrences rhythm strip cardiovascular disease) ethan lemus 04/16/2011 needed?: No; Reason until , 1 for Exam:: Chest completed Pain documented as of this encounter Procedures Procedure Name Priority Date/Time Associated Diagnosis Comme nts EKG 12-LEAD Routine 04/16/2011 8:46 AM ASCVD (arterioscleroti c Results for this EDT cardiovascular disease) proc edure are in the results section. documented in this encounter Results EKG 12-LEAD Is a rhythm strip needed?: No; Reason for Exam:: Chest Pain (04/16/2011 8:46 AM EDT) Component Value Ref Range Test Analysis Performed Pathologis t Method Time At Signature Ventricular rate 45 BPM MUSE SYSTEM Atrial Rate 45 BPM MUSE SYSTEM P-R Interval 146 ms MUSE SYSTEM QRS Duration 76 ms MUSE SYSTEM Q-T Interval 538 ms MUSE SYSTEM QTC Calculated 465 ms MUSE SYSTEM (Bezet) Calculated P [place] 53 degrees MUSE SYSTEM Calculated R [place] 26 degrees MUSE SYSTEM Calculated T [place] 63 degrees MUSE SYSTEM INTERPRETATION Marked sinus bradycardia MUSE SYSTEM Inferior infarct Abnormal ECG When compared with ECG of 15-APR-2011 20:15, (unconfirmed) Nonspecific T wave abnormality no longer evident in Lateral leads Confirmed by MD TIM, JONN ([id number]) on 04/16/2011 2:54:35 PM Specimen Anatomical Collection Method Collection Time Receive d Time (Source) Location / / Volume Laterality 04/16/2011 8:46 AM 1 2:54 EDT PM EDT Jonn Silver MD ECG ORDERABLES Performing Organization Address City/State/ZIP Code Phon e Number MUSE SYSTEM documented in this encounter Visit Diagnoses Diagnosis ASCVD (arteriosclerotic cardiovascular d isease) - Primary Unspecified cardiovascular disease documented in this encounter Care Teams Check Out Clerk Relationship Specialty Start Date End Date Jairon Gomez MD PCP - General 09/23/10 07/28/[address] [place] [address] documented as of this encounter
--- OUTSIDE RECORDS SUMMARY | 2022-08-15 01:42 | XMS_ITS | Encounter Summary ---
:1955 Author Organization [facility] Address [address] [place] [address] Care Team Providers Name Role Phone Randy Turner MD Primary Care Provider [phone] Aissatou Briggs NP Primary Care Provider Encounter Details Date Type Department Care Team Description 04/22/2020 Lab Requisition [facility] Outr Resulting Lab, Pathology & Laboratory Provider [facility] [address] [place] [address] Social History Tobacco Use Types Packs/Day Years Used Date Former Smoker Pipe Smokeless Tobacco: Never Used Alcohol Use Standard Drinks/Week Comments No 0 (1 standard drink = 0.6 oz pure alcoho l) Sex Assigned at Date Recorded Not on file documented as of this encounter Functional Status Functional Status Response Date of Assessment Are you deaf or do you have serious difficulty hearing? No 07/10/2017 Are you blind or do you have serious difficulty seeing, No 07/10/2017 even when wearing glasses? Cognitive Status Response Date of Assessment Because of a physical, mental, or emotional condition, do No 07/10/2017 you have serious difficulty concentrating, remembering, or making decisions? (5 years old or older) documented as of this encounter Plan of Treatment Not on filedocumented as of this encounter Procedures Procedure Name Priority Date/Time Associated Comments Diagnosis DO NOT ORDER Today 04/22/2020 13:40 Results for this STANDALONE - BROAD EDT procedure are in COVID TEST the results section. COVID-19 TESTING Routine 04/22/2020 13:40 Results for this EDT procedure are i n the results section. documented in this encounter Results DO NOT ORDER STANDALONE - BROAD COVID TEST (04/22/2020 13:40 EDT) COVID-19 rt-PCR NEGATIVE Negative [facility] Result Comment: LABORATORY 2019-novel Coronavirus (2019 -nCoV) not detected by the qRT-PCR assay. Consider testing for other respiratory viruses or re-collecting for 2019-nCoV testing. Note: Optimum timing for peak viral levels du ring infections caused by 20 -nCoV have not been determined. Collection of multiple specimens from the same patient may be necessary to detect the virus. Limitations Positive results are indicat kim of active infection with SARS-CoV-2 but do not rule out bacterial infection or co-infection with other viruses. The agent detected may not be the definite cause of diseas e. In addition, detection of viral RNA may not indicate the presence of infectious virus or that SARS-CoV-2 is the causative agent for clinical symptoms. Negative results do not prec lude SARS-CoV-2 infection and should not be used as the sole basis for patient management decisions. Negative results must be combined with clinical observations, patient his tory, and epidemiological in formation. False negative results may also occur if amplification inhibitors are present in the specimen or if inadequate numbers of organisms are present in the specimen. Op timum specimen types and gentry ing for peak viral levels during infections caused by SARS-CoV-2 have not been fully determined. Collection of multiple specimens (types and time points) from the same patient may be necessary to detect the virus. The test was validated for u se with upper respiratory specimens obtained via nasopharyngeal or oropharyngeal swabs in VTM, UTM, M4, M5, M6, saline, and MTM media. The performance of this test has not be en established for other spe cimens. Specimens collected using other FDA recommended Specimen Collection Materials listed in the FDA COVID-19 [employer] communication (January 25, 2020) are pr ocessed with the caveat that they were not all validated for use with this test and the result must be interpreted in this context. Furthermore, a false negative results may occur if a specimen is improperly collected, transported or handled. If the virus mutates in the RT-PCR target region, SARS-CoV-2 may not be detected or may be detected less predictably. Inhibitors or other types of interference may produce a false negative result. An interference study evaluating the effect of common cold medications was not performed. This test is not FDA-cleared but its performance characteristics were established by our CLIA-certified, CAP-accredited, high complexity laboratory in accordance with CLIA regulations, [employer] (CAP) guidel harlan (Jan 18, 2020), and FDA guidance (Dec 30, 2019). This test is only for use un christa the Food and Drug Administration's Emergency Use Authorization. Specimen Swab - Entire nasopharynx (body structur e) Performing Organization Address City/State/ZIP Code Phon e Number [facility] [place], [place] COVID-19 TESTING (04/22/2020 13:40 EDT) COVID-19 rt-PCR NEGATIVE Negative [facility] Result Comment: LABORATORY 2019-novel Coronavirus (2019 -nCoV) not detected by the qRT-PCR assay. Consider testing for other respiratory viruses or re-collecting for 2019-nCoV testing. Note: Optimum timing for peak viral levels du ring infections caused by 20 -nCoV have not been determined. Collection of multiple specimens from the same patient may be necessary to detect the virus. Limitations Positive results are indicat kim of active infection with SARS-CoV-2 but do not rule out bacterial infection or co-infection with other viruses. The agent detected may not be the definite cause of diseas e. In addition, detection of viral RNA may not indicate the presence of infectious virus or that SARS-CoV-2 is the causative agent for clinical symptoms. Negative results do not prec lude SARS-CoV-2 infection and should not be used as the sole basis for patient management decisions. Negative results must be combined with clinical observations, patient his tory, and epidemiological in formation. False negative results may also occur if amplification inhibitors are present in the specimen or if inadequate numbers of organisms are present in the specimen. Op timum specimen types and gentry ing for peak viral levels during infections caused by SARS-CoV-2 have not been fully determined. Collection of multiple specimens (types and time points) from the same patient may be necessary to detect the virus. The test was validated for u se with upper respiratory specimens obtained via nasopharyngeal or oropharyngeal swabs in VTM, UTM, M4, M5, M6, saline, and MTM media. The performance of this test has not be en established for other spe cimens. Specimens collected using other FDA recommended Specimen Collection Materials listed in the FDA COVID-19 [employer] communication (January 25, 2020) are pr ocessed with the caveat that they were not all validated for use with this test and the result must be interpreted in this context. Furthermore, a false negative results may occur if a specimen is improperly collected, transported or handled. If the virus mutates in the RT-PCR target region, SARS-CoV-2 may not be detected or may be detected less predictably. Inhibitors or other types of interference may produce a false negative result. An interference study evaluating the effect of common cold medications was not performed. This test is not FDA-cleared but its performance characteristics were established by our CLIA-certified, CAP-accredited, high complexity laboratory in accordance with CLIA regulations, [employer] (CAP) guidel harlan (Jan 18, 2020), and FDA guidance (Dec 30, 2019). This test is only for use un christa the Food and Drug Administration's Emergency Use Authorization. Performing Lab [facility] LABORATORY SERVICES Specimen Swab Performing Organization Address City/State/ZIP Code Phon e Number [facility] [address] [place] [address] SERVICES [facility] [place], [place] documented in this encounter Visit Diagnoses Not on filedocumented in this encounter Additional Health Concerns Infection Onset Date Last Indicated Resolved Time R/O COVID-19 05/12/2020 05/12/2020 05/17/2020 22:16 EDT documented as of this encounter Care Teams Nougat Candy Maker Helper Relationship Specialty Start Date End Date Randy Turner MD PCP - General 06/21/09 05/30/[address] [place] [address] [phone] Aissatou Briggs NP PCP - General 05/31/[address] [place] [address] [phone] documented as of this encounter
--- OUTSIDE RECORDS SUMMARY | 2022-08-15 01:42 | XMS_ITS | Clinical Summary ---
:1955 Author Organization [facility] Address [address] [place] [address] Care Team Providers Name Role Phone Aissatou Briggs SAFE DEPOSIT ATTENDANT Primary Care Provider Allergies Active Allergy Reactions Severity Noted Date Comments Codeine 07/09/2017 Risperidone 07/09/2017 Medications Medication Sig Dispensed Refills Start Date End Date Status traZODone (DESYREL) Take 100 mg by 0 Active 100 mg tablet mouth at bedtime as needed for Sleep. HYDROcodone-acetamino Take 2 Tabs by 0 Active phen (VICODIN) 5-300 mouth 2 times daily mg tablet as needed for Pain. atorvastatin Take 80 mg by mouth 0 Active (LIPITOR) 40 mg daily. tablet gabapentin Take 600 mg by 0 Acti ve (NEURONTIN) 400 mg mouth 4 times capsule daily. lisinopril (PRINIVIL, Take 5 mg by mouth 0 Active ZESTRIL) 5 mg tablet daily. citalopram (CELEXA) Take 40 mg by mouth 0 Active 20 mg tablet daily. fluticasone (FLOVENT) Inhale 2 Puffs as 0 Active 110 mcg/actuation directed 2 times inhaler daily. levalbuterol Take 0.63 mg by 0 A ctive (XOPENEX) 0.63 mg/3 nebulization every mL nebulization 6 hours as needed for Wheezing. nitroGLYCERIN Place 0.4 mg under 0 Active (NITROSTAT) 0.4 mg SL the tongue every 5 tablet minutes as needed for Chest Pain. docusate sodium Take 100 mg by 0 Active (COLACE) 100 mg mouth daily. capsule lamoTRIgine Take 100 mg by 0 Act kmi (LAMICTAL) 100 mg mouth 2 times tablet daily. apixaban (ELIQUIS) Take 5 mg by mouth 0 Active 2.5 mg tablet 2 times daily. clopidogreL (PLAVIX) Take 75 mg by mouth 0 Active 75 mg tablet daily. finasteride (PROSCAR) Take 5 mg by mouth 0 Active 5 mg tablet daily. metoprolol XL Take 50 mg by mouth 0 Active (TOPROL-XL) 50 mg daily. tablet spironolactone Take 25 mg by mouth 0 Active (ALDACTONE) 25 mg daily. tablet tamsulosin (FLOMAX) Take 0.4 mg by 0 Active 0.4 mg capsule mouth daily. digoxin (LANOXIN) 125 Take 125 mcg by 0 Active mcg (0.125 mg) tablet mouth daily. DIAZepam (VALIUM) 2 Take 2 mg by mouth 0 Active mg tablet 2 times daily. isosorbide dinitrate Take 20 mg by mouth 0 Active (ISORDIL) 20 mg 2 times daily. tablet pantoprazole Take 40 mg by mouth 0 Active (PROTONIX) 20 mg daily. tablet fentaNYL (DURAGESIC) Place 75 mcg onto 0 Active 75 mcg/hr patch the skin every 72 hours. Active Problems Problem Noted Date COPD (chronic obstructive pulmonary disease) ([facility]) 06/01/2020 HFrEF (heart failure with reduced ejection fraction) ( [facility]) 06/01/2020 Spells of decreased attentiveness 07/10/2017 Nonepileptic episode ([facility]) 07/10/2017 Resolved Problems Problem Noted Date Resolved Date Unstable angina ([facility]) 06/01/2020 06/01/2020 ACS (acute coronary syndrome) ([facility]) 05/31/2020 06/01/2020 Seizure ([facility]) 07/09/2017 07/11/2017 Social History Tobacco Use Types Packs/Day Years Used Date Former Smoker Pipe Smokeless Tobacco: Never Used Alcohol Use Standard Drinks/Week Comments No 0 (1 standard drink = 0.6 oz pure alcoho l) Sex Assigned at Date Recorded Not on file Last Filed Vital Signs Vital Sign Reading Time Taken Comments Blood Pressure 86/65 06/01/2020 1709 EDT Pulse 56 05/31/2020 1915 EDT Temperature 36.4 ??C (97.5 ??F) 06/01/2020 1053 EDT Respiratory Rate 16 06/01/2020 0806 EDT Oxygen Saturation 98% 06/01/2020 1600 EDT Inhaled Oxygen Concentration - - Weight 56.7 kg (125 lb) 05/31/20202217 EDT Height 162.6 cm (5' 4) 05/31/20202217 EDT Body Mass Index 21.46 05/31/2020 221 EDT Plan of Treatment Health Maintenance Due Date Last Done Comments Copd Action Plan 1955 Lung Function Test (Spirometry) 1955 Fall Risk Screening 2020 Insurance Payer Benefit Plan / Subscriber ID Effective Phone Address T ype Group Dates MEDICARE MEDICARE A/B [id number] 1987-Prese [address] [place] [address] [place]ID [id number] 2020-Pres [address] [place] [id number] Miguel Pérez Personal/Family Self [address] (Home) [place] [address] Miguel Pérez Personal/Family Self [address] (Home) [place] [address] Advance Directives For more information, please contact: [phone] Latest Code Status on File Code Status Date Activated Date Inactivated Comments Full Code 05/31/2020 22:32 06/01/2020 22:04 Reason for decision includes: Full code consistent with over all plan of care Who participated in the discussion? Not Discussed Full Code 07/10/2017 0:28 07/11/2017 18:21 Reason for decision includes: Full code consistent with over all plan of care Who participated in the discussion? Not Discussed Care Teams Services Clerk Relationship Specialty Start Date End Date Aissatou Briggs, SAFE DEPOSIT ATTENDANT PCP - General 05/31/20 [address], [place] [address]
--- OUTSIDE RECORDS SUMMARY | 2022-08-15 01:42 | XMS_ITS | Encounter Summary ---
:1955 Author Organization [facility] Address [address] [place] [address] Care Team Providers Name Role Phone Aissatou Briggs PIEROGI MAKER Primary Care Provider Encounter Details Date Type Department Care Team Description 12/28/[address] [facility] Outr Resulting Lab, Pathology & Laboratory Provider [facility] [address] [place] [address] Social History Tobacco Use Types [...] do you have serious difficulty hearing? No 05/31/2020 Are you blind or do you have serious difficulty seeing, No 05/31/2020 even when wearing glasses? Do you have serious difficulty walking or climbing Yes 05/31/2020 stairs? (5 years old or older) Do you have difficulty dressing or bathing? (5 years old Yes 05/31/2020 or older) Because of a physical, mental, or emotional condition, do Ye s 05/31/2020 you have difficulty doing errands alone such as visiting a doctor's office or shopping? (15 years old or older) Cognitive Status Response Date of Assessment Because of a physical, mental, or emotional condition, do Ye s 05/31/2020 you have serious difficulty concentrating, remembering, or making decisions? (5 years old or older) documented as of this encounter Plan of Treatment Not on filedocumented as of this encounter Procedures Procedure Name Priority Date/Time Associated Diagnosis Comme nts COVID-19 TEST [facility] Today 12/27/2020 13:50 LAB PCR EST COVID-19 TESTING Routine 12/27/2020 13:50 Results for this EST procedure are i n the results section. documented in this encounter Results COVID-19 TEST [facility] PCR (12/27/2020 13:50 EST) Specimen Swab - Entire nasopharynx (body structur e) Performing Organization Address City/State/ZIP Code Phon e Number [facility] [address] [place] [address] SERVICES COVID-19 TESTING (12/27/2020 13:50 EST) COVID-19 rt-PCR Negative Negative [facility] Result Comment: [facility] This test has not been FDA c leared or approved. This test has been authorized by FDA under an EUA for use by authorized laboratories. This test has been authorized only for detection of nucleic acid fro SERVICES m 2019-nCoV, not for any oth er viruses or pathogens. This test is only authorized for the duration of the declaration that circumstances exist justifying the authorization of emergency use of in vitro d iagnostic tests for detectio n and/or diagnosis of 2019-nCoV under section 564(b)(1) of Act, 21 U.S.C ?? 360bbb-3(b) (1), unless the authorization is terminated or revoked sooner. Negative results do not prec lude 2019-nCoV infection and should not be used as the sole basis for treatment or other patient management decisions. Negative results must be combined with clinical observa tions, patient history, and epidemiological informatio n. This test was developed and its performance characteristics determined by [facility]. It has not been cleared or approved by the US Food and Drug Administration. FDA does not require this test to go through premarket FDA review. This t est is used for clinical purposes. It should not be regarded as investigational or for research. This laboratory is certified under the Clinical Laboratory Improvement Amendm ents (CLIA) as qualified to perform high complexity clinical laboratory testing. This test is based on the CD C COVID-19 Emergency Use Authorization (EUA) assay, with minor modification as defined by the FDA Performed on the Pronota Pro RT-PCR System. Performing Lab [facility] Lab [facility] SERVICES Specimen Swab Performing Organization Address City/State/ZIP Code Phon e Number [facility] [address] [place] [address] SERVICES documented in this encounter Visit Diagnoses Not on filedocumented in this encounter Care Teams Product Support Specialist Relationship Specialty Start Date End Date Aissatou Briggs, PIEROGI MAKER PCP - General 05/31/[address] [place] [id number] documented as of this encounter
--- OUTSIDE RECORDS SUMMARY | 2022-08-15 01:42 | XMS_ITS | Encounter Summary ---
:[address] [facility] Address [address] [place] [address] Care Team Providers Name Role Phone Randy Turner MD Primary Care Provider [phone] Aissatou Briggs NP Primary Care Provider Encounter Details Date Type Department Care Team Description 04/09/2020 Lab Requisition [facility] Outr Resulting Lab, Pathology & Laboratory Provider [facility] [address] [place] [address] Social History Tobacco Use Types [...] Procedure Name Priority Date/Time Associated Comments Diagnosis PSA TOTAL, Routine 04/09/2020 6:25 EDT Results for this DIAGNOSTIC procedure are i n the results section. documented in this encounter Results PSA TOTAL, DIAGNOSTIC (04/09/2020 6:25 EDT) Pathologist Sig nature PSA 3.8 0.0 - 4.5 ng/mL [facility] Specimen Blood - Venous blood (substance) Narrative [facility] - 04/10/2020 9:46 EDT NOTE: Serum PSA concentration should not be in terpreted as absolute evidence for the presence or absence of malignant disease. Assayed on Siemens ADVIA Similar [employer]aur XPT usi ng chemiluminescent technology.??Values obtained by using different assay methods cannot be used interchangeably. Performing Organization Address City/State/[facility] Code Phon e Number [facility] [address] [place] [address] SERVICES documented in this encounter Visit Diagnoses Not on filedocumented in this encounter Additional Health Concerns Infection Onset Date Last Indicated Resolved Time R/O COVID-19 05/12/2020 05/12/2020 05/17/2020 22:16 EDT documented as of this encounter Care Teams Tow Boat Captain Relationship Specialty Start Date End Date Randy Turner MD PCP - General 06/21/09 05/30/[address] [place] [phone] Aissatou Briggs NP PCP - General 05/31/[address] [place] [id number] documented as of this encounter
--- OUTSIDE RECORDS SUMMARY | 2022-08-15 01:42 | XMS_ITS | Encounter Summary ---
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 Primary Care Provider Reason for Visit Auth/Cert Specialty Diagnoses / Procedures Referred By Contact Refer red To Contact Diagnoses ACS (acute coronary syndrome) ([facility]) ([facility]) Chest Pain Referral ID Status Reason Start Date Expiration Date Visits Requ ested Visits Authorized [id number] 1 1 Encounter Details Date Type Department Care Team Description 06/01/2020 Surgery [facility] Invasive Anthony Canas MD Left Heart Cath Cardiology Unit [address] [place] [address] [address] [place], [place] [id number] [place] [address] [phone] (Wo rk) Surgery Details Date/Time Status Location OR Service Patient Case Case Traum a Class Class Type Case? 06/01/20 1004 Posted [facility] Cath Cath Cardiovascular Inpatient Lab Lab 2 Panel 1 Procedure LRB Anes Op Region Wound Class Commen ts Left Heart Cath N/A None Chest Surgeon Surgeon Role Service Panel Anthony Everett MD Primary Cardiovascular 1 Social History Tobacco Use Types Packs/Day Years Used Date Former Smoker Pipe Smokeless Tobacco: Never Used Alcohol Use Standard Drinks/Week Comments No 0 (1 standard drink = 0.6 oz pure alcoho l) Sex Assigned at Date Recorded Not on file COVID-19 Exposure Response Date Recorded In the last month, have you been in contact with No / Unsure 05/31/2020 19:14 EDT someone who was confirmed or suspected to have Coronavirus / COVID-19? documented as of this encounter Last Filed Vital Signs Vital Sign Reading Time Taken Comments Blood Pressure 103/83 06/01/2020 1053 EDT Pulse - - Temperature 36.4 ??C (97.5 ??F) 06/01/2020 1053 EDT Respiratory Rate 16 06/01/2020 0806 EDT Oxygen Saturation 97% 06/01/2020 1053 EDT Inhaled Oxygen Concentration - - Weight 56.7 kg (125 lb) 05/31/2020 2218 EDT Height 162.6 cm (5' 4) 05/31/2020 2218 EDT Body Mass Index 21.46 05/31/2020 2218 EDT documented in this encounter Functional Status Functional Status Response [...] or older) documented as of this encounter Discharge Summaries Latasha Richard MD - 06/01/2020 1902 EDT Cardiology Discharge Summary Primary Care Provider: Aissatou Briggs Attending Physician: Anthony Everett MD Admit Date: 05/31/2020 Discharge Date: 06/01/2020 Disposition: Home or self care, with HomeHealth services. Problems and Procedures Admitting Diagnosis: Unstable angina Final Hospital Diagnosis: Noncardiac chest pain Additional Problems Managed in the Hospital Active Hospital Problems Diagnosis Date Noted ??? HFrEF (heart failure with reduced ejection fraction) ([facility]) 06/01/2020 Resolved Hospital Problems Diagnosis Date Noted Date Resolved ??? *Unstable angina ([facility]) 06/01/2020 06/01/2020 ??? ACS (acute coronary syndrome) ([facility]) 05/31/2020 06/01/2020 Principal Procedure: LHC Date: 06/01/2020 Diagnostic Cardiac Study Results Left main: normal Left anterior descending: Mild irregularities, diffuse proximal 30% Left circumflex: Mild irregularities, distal stent good patency and flow Right coronary artery: Mild irregularities, proximal 30% Grafts: n/a Secondary Procedures: none Hospital Course Junaid Arias is a 64 y.o. male with a history significant for STEMI in 2010 with PCI to the distal LCx, CAD with LHC in 2015 showing no significant disease, HFrEF (35% in April 2020), atrial flutter (on apixaban), HLD, TBI with resultant seizures, depression, COPD (2L NC occasionally at home), and GERD who presents as a transfer from [facility] with concern for unstable angina. Workup there notable for negative troponin x3. He was transferred on a heparin and nitro gtt. LHC was performed on 06/01/2020, found mild irregularities in LAD, LCX, and RCA, patent stents, and overall no culprit lesions to explain an unstable angina picture - no PCI indiciated. His chest pain was deemed likely non cardiac in nature. He was discharged with no new medication changes and plan to continue Plavix 75 mg and Eliquis 5 mg. 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 Allergies and Immunizations Allergies Allergen Reactions ??? Codeine ??? Risperidone There is no immunization history for the selected administration types on file for this patient. Transition of Care Plans Condition at Discharge Stable Assessment at Discharge Vital signs: Patient Vitals for the past 12 hrs: BP Heart Rate Resp Temp SpO2 O2 Device 06/01/20 1709 (!) 86/65 54 BPM ? 06/01/20 1706 94/68 55 BPM ? 06/01/20 1700 109/74 50 BPM ? 06/01/20 1600 (!) 80/48 50 BPM ? 98 % ??? 06/01/20 1500 108/66 54 BPM ? 96 % ??? 06/01/20 1400 116/63 52 BPM ? 96 % ??? 06/01/20 1330 106/83 57 BPM ? 94 % ??? 06/01/20 1300 115/60 (!) 45 BPM ? 95 % ??? 06/01/20 1230 101/72 (!) 44 BPM ? 95 % ??? 06/01/20 1200 119/81 (!) 45 BPM ? 96 % ??? 06/01/20 1130 107/64 (!) 43 BPM ? 97 % ??? 06/01/20 1115 118/61 (!) 41 BPM ? 96 % ??? 06/01/20 1053 103/83 (!) 43 BPM ??? 36.4 ??C (97.5 ??F) 97 % None 06/01/20 1033 95/68 61 BPM ? 06/01/20 0806 127/78 56 BPM 16 36.7 ??C (98.1 ??F) 98 % None Is the patient being discharged with a diagnosis of Systolic Heart Failure? No Coumadin Management N/A Non-Cardiac Studies at Time of Discharge none Results Pending at Discharge Test results still pending from this admission Procedure Component Value Units Date/Time Hemoglobin A1c [[id number]] Collected: 05/31/20 2300 Lab Status: In process Specimen: Blood, Venous Updated: 05/31/20 2936 Last Lab Results at Discharge BUN: Lab Results Component Value Date BUN 16 05/31/2020 Creatinine: Lab Results Component Value Date CREATININE 0.76 06/01/2020 CBC: Lab Results Component Value Date WBC 9.81 06/01/2020 RBC 5.18 06/01/2020 HGB 14.5 06/01/2020 HCT 44.3 06/01/2020 MCV 86 06/01/2020 MCH 28.0 06/01/2020 MCHC 32.7 (L) 06/01/2020 PLT 125 (L) 06/01/2020 DIFFTYPE Automated 07/11/2017 Electrolytes: Lab Results Component Value Date NA 138 05/31/2020 K 3.9 06/01/2020 CL 107 05/31/2020 CO2 23 05/31/2020 HGB: Lab Results Component Value Date HGB 14.5 06/01/2020 INR: No results found for: INR, PROTIME K: Lab Results Component Value Date K 3.9 06/01/2020 Na: Lab Results Component Value Date NA 138 05/31/2020 PLT: Lab Results Component Value Date PLT 125 (L) 06/01/2020 Protein: No results found for: [id number] Lipid Profile: Lab Results Component Value Date CHOL 125 05/31/2020 TRIG 218 05/31/2020 HDL 40 05/31/2020 LDLBASE 41 05/31/2020 CHOLHDL 3.1 05/31/2020 Discharge Follow Up Follow-up appointments and procedures Amb Consult/Follow Up Primary Care Physician Reason for Request: F/u visit after [facility] Authorizing Provider: Duane Rodriguez MD Appointments We Recommend but have not been Scheduled Follow up with regular Banana Expert with [facility] within a week. Latasha Richard DO 06/01/2020 19:01 Associated attestation - Anthony Everett MD - 06/02/2020 0954 EDT I have personally seen and examined the patient and reviewed the attached note and agree with the general findings unless noted otherwise. Anthony Everett MD Cardiology Attending documented in this encounter Medications at Time of Discharge Medication Sig Dispensed Refills Start Date End Date apixaban (ELIQUIS) 2.5 mg Take 5 mg by mouth 2 0 tablet times daily. atorvastatin (LIPITOR) 40 Take 80 mg by mouth 0 mg tablet daily. citalopram (CELEXA) 20 mg Take 40 mg by mouth 0 tablet daily. clopidogreL (PLAVIX) 75 Take 75 mg by mouth 0 mg tablet daily. DIAZepam (VALIUM) 2 mg Take 2 mg by mouth 2 0 tablet times daily. digoxin (LANOXIN) 125 mcg Take 125 mcg by mouth 0 (0.125 mg) tablet daily. docusate sodium (COLACE) Take 100 mg by mouth 0 100 mg capsule daily. fentaNYL (DURAGESIC) 75 Place 75 mcg onto the 0 mcg/hr patch skin every 72 hours. finasteride (PROSCAR) 5 Take 5 mg by mouth 0 mg tablet daily. fluticasone (FLOVENT) 110 Inhale 2 Puffs as 0 mcg/actuation inhaler directed 2 times daily. gabapentin (NEURONTIN) Take 600 mg by mouth 4 0 400 mg capsule times daily. HYDROcodone-acetaminophen Take 2 Tabs by mouth 2 0 (VICODIN) 5-300 mg tablet times daily as needed for Pain. isosorbide dinitrate Take 20 mg by mouth 2 0 (ISORDIL) 20 mg tablet times daily. lamoTRIgine (LAMICTAL) Take 100 mg by mouth 2 0 100 mg tablet times daily. levalbuterol (XOPENEX) Take 0.63 mg by 0 0.63 mg/3 mL nebulization nebulization every 6 hours as needed for Wheezing. lisinopril (PRINIVIL, Take 5 mg by mouth 0 ZESTRIL) 5 mg tablet daily. metoprolol XL (TOPROL-XL) Take 50 mg by mouth 0 50 mg tablet daily. nitroGLYCERIN (NITROSTAT) Place 0.4 mg under the 0 0.4 mg SL tablet tongue every 5 minutes as needed for Chest Pain. pantoprazole (PROTONIX) Take 40 mg by mouth 0 20 mg tablet daily. spironolactone Take 25 mg by mouth 0 (ALDACTONE) 25 mg tablet daily. tamsulosin (FLOMAX) 0.4 Take 0.4 mg by mouth 0 mg capsule daily. traZODone (DESYREL) 100 Take 100 mg by mouth 0 mg tablet at bedtime as needed for Sleep. documented as of this encounter Discharge Disposition Disposition Code Departure Means Destination Home or Self Halfway documented in this encounter Progress Notes Latasha Richard MD - 06/01/2020 1504 EDT Cardiology Post Procedure Note s/p left cardiac catheterization ?? S: Pt resting comfortably. Denies chest pain, palpitations, lightheadedness, dizziness, dyspnea, numbness or weakness. Denies pain, bleeding or discharge from the cath site. Ambulating without complication. ?? O:Blood pressure 103/83, temperature 36.4, temperature source Tympanic, resp. rate 16, height 162.6 cm (64), weight 56.7 kg (125 lb), SpO2 97 %. Gen: NAD, resting comfortably Chest: CTAB, no w/r/r CV: RRR, S1/S2 normal, no m/r/g Extr: Right radial artery cath site c/d/i with TR band in place, no bleeding or discharge, no hematoma or mass Pulse: 2+ Neuro: A+Ox3, 5/5 strength, grossly normal sensation ?? A/P: 64 y.o.male s/p cardiac catheterization. --stable as above, cont to monitor --cont plan per progress/admit notes ?? Latasha Richard DO Family Medicine, PGY1 Pager #[phone] esPamela baca - 06/01/2020 0052 EDT Fellow addendum to resident H and P 64 yr old male with pmh of CAD s/p PCI to Lcx in 2010 (repeat LHC in 2016 non- obstructive), afib, HTN, COPD, HLD, CVA, TBI who is presenting from [facility] with complains of chest pain that started today. Pt reports of some associated sob with CP. No dizziness. Radiation of pain to his back. Reprots that he took sublingual nitro with only mild relief so when to OSH ED. At OSH, pt was noted to trops neg x 2. EKG with NSR however ST depression in V3-V4, Q wave in inferior leads (present on 2016 EKG) and ptwas transferred to [facility] for further management of unstable angina. Pt came on heparin and nitro gtt. On arrival, pts vitals stable. Not having any chest pain. Trop negative. EKG with NSR, very mild ST depression in V3-V4, Qwave in inferior leads. Cardiac exam RRR, no m/r/g. Lungs CTAB, no LE edema or JVD. TTE at [facility] in 04/20 shwoing EF of 30-35%. The basal anteroseptal, basal anterolateral, basal inferoseptal, mid anteroseptal, mid anterolateral, mid inferoseptal, apical septal, apical anterior, apical lateral, and apical inferior wall segments are hypokinetic. LA mildly dilated. A/P: 64 yr old male with pmh of CAD s/p PCI to Lcx in 2010 (repeat LHC in 2016 non- obstructive), afib, HTN, COPD, HLD, CVA, TBI who is presenting from [facility] with complains of chest pain that started today. Trops negative x 3, EKG with mild ST depression in V3, V4. Clinical picture concerning for unstable angina. Will continue patient on heparin gtt, ASA, and plavix. Continue nitroglycerin drip. Patient is also taking metoprolol succinate 50 mg, digoxin 125 for atrial fibrillation. Continue home spironolactone 25 mg, lisinopril 5 mg. Given history of CAD, now with chest pain we will plan for possible leftheart cath tomorrow. TTE ordered. PATIENT CONSENT TO CARDIOVASCULAR CATHETERIZATION OR INTERVENTION: I, Pamela Shultz, have explained the risks and benefits of cardiac catheterization and/or intervention to the patient (or responsible green party) and have answered the patient's (or responsible green party's) questions. To the best of my knowledge, the patient (or responsible green party) has been adequately informed. T he patient (or responsible green party) has consented to the interventional cardiac procedure. As part of the consent we reviewed that, like surgical procedures, interventional procedures require aggressive short term support to determine the potential benefits of the procedures. For this reason, the patient (or responsible green party) has agreed to remain FULL CODE for a minimum of 48 hours after the procedure. Pamela Shulzt MD Metal Products Viewer PGY-4 Pager [phone] 06/01/20 3:15 Patient start with attending physician Dr. Everett. Orville Gaston, RT - 06/01/2020 0027 EDT Respiratory Consult/Progress Note Indications for Respiratory therapy: History of COPD / Initial consult Data Vitals: Heart Rate: 57 BPM, Resp: 16, FIO2/O2 Device: O2 Flow Rate (L/min): 0 l/min, , O2 Device: None, RT Orders: BID Flovent Q6 PRN Accuneb Protocol Scoring: Bronchodilator/Inhalation Therapy Frequency Bronchodialator - Clinical Indications: History of COPD Breath Sounds: Clear Response: No change / no treatment Pulse: <100 Resp Rate: <18 SOB: None Total Score: 0 Comment:: Home routine consists of BID Flovent and PRN albuterol MDI Airway Clearance Therapy Frequency Airway Clearance - Clinical Indications: No clinical indications Breath Sounds: Clear / diminished Sputum: Small (tsp) / None Consistency: None Cough Effort: Strong/ non-productive Color: None Total Score: 0 Comment: Not indicated Hyperinflation Therapy Frequency Hyperinflation - Clinical Indications: No clinical indications Breath Sounds: Clear Surgery: No X-Ray / Atelectasis: No O2 Requirements: O2 at baseline Mobility Status: Mobile / at baseline Total: 0 Comment: Not indicated Action/Events Respiratory events; Patient with a history of COPD and STEMI admitted to [facility] as a transfer from [facility] with unstable angina. Patient takes BID Flovent and PRN albuterol MDI at home. States he also wears a 2 L nasal cannula at home as needed, but is currently on room air. Patient does not wear a CPAP/BIPAP to sleep at night. BBS clear/diminished. Patient provided with a spacer and is independent with MDI use. Transfer any MDI's to nurse admin. RT CHYNA 06/01/20 documented in this encounter H&P Notes Edgar Gilliland MD - 05/31/2020 2303 EDT Images from the original note were not included. Cardiology History and Physical Admite Date: 05/31/2020 Date of Service: 05/31/2020 LOS: 0 days Service Date: 05/31/2020 Admit Date: 05/31/2020 22:06 Primary Care Provider: Aissatou Briggs Chief Complaint: Chest pain HPI Junaid Arias is a 64 y.o. male with a past history of STEMI in 2011 with PCI to the distal LCx, CAD with [facility] in 2016 showing no significant disease, HFrEF (35% in April 2020), atrial flutter (on apixaban), HLD, TBI with resultant seizures, depression, COPD (2L NC occasionally at home), and GERD who presents as a transfer from [facility] with unstable angina. He states at 0930 this morning he developed intense left sided chest pain that radiated to his arm and back. He took two SL nitroglycerin tabs with some relief, but called 911 after the pain returned. He was taken to [facility] and was found to have some possible ST depressions with a negative troponin x3.[facility] initially accepted the transfer, but due to the non-emergent nature they recommended transfer to another facility. [facility] started a nitroglycerin gtt and a heparin gtt. 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 He also has a stated aspirin allergy and was not loaded with aspirin. A D dimer was 724 so they obtained a CTA that was negative for a PE. On arrival to [facility] he is hemodynamically stable, bradycardic to the 50s, and satting well, placed on 3L NC for comfort per the patient. He is in no acute distress and understands the plan for possibleLHC vs stress test in the morning. He lives with his son in [place] and his son would make decisions for him if he would be unable to make decisions for himself. Unfortunately his of 37 years passed about a year ago. He hasnot smoked since 1998 and states he is not much of a drinker. He denies any recreational drug use. He recently started walking with a walker, the first time since his stroke in 2010 (same time as the STEMI) Review Of Systems: Full 10 point ROS obtained, pertinent findings noted in HPI. Prior Cardiac History: TTE at [facility] in care everywhere from April 2020 - EF of 35%, global left ventricular systolic functionis moderately reduced. Mild aortic and tricuspid valve regurg [facility] 2016 from [facility] - Cardiac Cath 09/18/16: Hemodynamics: Left Heart Pressures [...] ? Conclusions: * Nonobstructive coronary artery disease PMH PSH No past medical history on file. No past surgical history on file. Social History Family History Social History Tobacco Use ??? Smoking status: Former Smoker Types: Pipe ??? Smokeless tobacco: Never Used Substance Use Topics ??? Alcohol use: No No family history on file. Medications Medications Prior to Admission Medication Sig Dispense Refill Last Dose ??? apixaban (ELIQUIS) 2.5 mg tablet Take 5 mg by mouth 2 times daily. ??? [DISCONTINUED] aspirin 81 mg EC tablet Take 81 mg by mouth daily. ??? atorvastatin (LIPITOR) 40 mg tablet Take 80 mg by mouth daily. ??? citalopram (CELEXA) 20 mg tablet Take 40 mg by mouth daily. ??? clopidogreL (PLAVIX) 75 mg tablet Take 75 mg by mouth daily. ??? DIAZepam (VALIUM) 2 mg tablet Take 2 mg by mouth 2 times daily. ??? digoxin (LANOXIN) 125 mcg (0.125 mg) tablet Take 125 mcg by mouth daily. ??? docusate sodium (COLACE) 100 mg capsule Take 100 mg by mouth daily. ??? finasteride (PROSCAR) 5 mg tablet Take 5 mg by mouth daily. ??? fluticasone (FLOVENT) 110 mcg/actuation inhaler Inhale 2 Puffs as directed 2 times daily. ??? gabapentin (NEURONTIN) 400 mg capsule Take 600 mg by mouth 4 times daily. ??? HYDROcodone-acetaminophen (VICODIN) 5-300 mg tablet Take 2 Tabs by mouth 2 times daily as neededfor Pain. ??? [DISCONTINUED] hydrOXYzine (ATARAX) 25 mg tablet Take 25 mg by mouth every 6 hours as needed forItching or Anxiety. ??? isosorbide dinitrate (ISORDIL) 20 mg tablet Take 20 mg by mouth 2 times daily. ??? lamoTRIgine (LAMICTAL) 100 mg tablet Take 100 mg by mouth 2 times daily. ??? levalbuterol (XOPENEX) 0.63 mg/3 mL nebulization Take 0.63 mg by nebulization every 6 hours as needed for Wheezing. ??? lisinopril (PRINIVIL, ZESTRIL) 5 mg tablet Take 5 mg by mouth daily. ??? [DISCONTINUED] meloxicam (MOBIC) 15 mg tablet Take 15 mg by mouth daily. ??? metoprolol XL (TOPROL-XL) 50 mg tablet Take 50 mg by mouth daily. ??? nitroGLYCERIN (NITROSTAT) 0.[address] 0.4 mg under the tongue every 5 minutes as needed for Chest Pain. ??? [DISCONTINUED] omeprazole (PRILOSEC) 20 mg capsule Take 20 mg by mouth daily. ??? pantoprazole (PROTONIX) 20 mg tablet Take 40 mg by mouth daily. ??? [DISCONTINUED] phenytoin (DILANTIN) 50 mg chewable tablet Take 2.5 Tabs by mouth daily. 75 Tab 3 ??? [DISCONTINUED] phenytoin (DILANTIN) 50 mg chewable tablet Take 200 mg by mouth at bedtime. ??? spironolactone (ALDACTONE) 25 mg tablet Take 25 mg by mouth daily. ??? tamsulosin (FLOMAX) 0.4 mg capsule Take 0.4 mg by mouth daily. ??? traZODone (DESYREL) 100 mg tablet Take 100 mg by mouth at bedtime as needed for Sleep. Allergies Allergies Allergen Reactions ??? Codeine ??? Risperidone Medications Prior to Admission Medication Sig ??? apixaban (ELIQUIS) 2.5 mg tablet Take 5 mg by mouth 2 times daily. ??? [DISCONTINUED] aspirin 81 mg EC tablet Take 81 mg by mouth daily. ??? atorvastatin (LIPITOR) 40 mg tablet Take 80 mg by mouth daily. ??? citalopram (CELEXA) 20 mg tablet Take 40 mg by mouth daily. ??? clopidogreL (PLAVIX) 75 mg tablet Take 75 mg by mouth daily. ??? DIAZepam (VALIUM) 2 mg tablet Take 2 mg by mouth 2 times daily. ??? digoxin (LANOXIN) 125 mcg (0.125 mg) tablet Take 125 mcg by mouth daily. ??? docusate sodium (COLACE) 100 mg capsule Take 100 mg by mouth daily. ??? finasteride (PROSCAR) 5 mg tablet Take 5 mg by mouth daily. ??? fluticasone (FLOVENT) 110 mcg/actuation inhaler Inhale 2 Puffs as directed 2 times daily. ??? gabapentin (NEURONTIN) 400 mg capsule Take 600 mg by mouth 4 times daily. ??? HYDROcodone-acetaminophen (VICODIN) 5-300 mg tablet Take 2 Tabs by mouth 2 times daily as neededfor Pain. ??? [DISCONTINUED] hydrOXYzine (ATARAX) 25 mg tablet Take 25 mg by mouth every 6 hours as needed forItching or Anxiety. ??? isosorbide dinitrate (ISORDIL) 20 mg tablet Take 20 mg by mouth 2 times daily. ??? lamoTRIgine (LAMICTAL) 100 mg tablet Take 100 mg by mouth 2 times daily. ??? levalbuterol (XOPENEX) 0.63 mg/3 mL nebulization Take 0.63 mg by nebulization every 6 hours as needed for Wheezing. ??? lisinopril (PRINIVIL, ZESTRIL) 5 mg tablet Take 5 mg by mouth daily. ??? [DISCONTINUED] meloxicam (MOBIC) 15 mg tablet Take 15 mg by mouth daily. ??? metoprolol XL (TOPROL-XL) 50 mg tablet Take 50 mg by mouth daily. ??? nitroGLYCERIN (NITROSTAT) 0.[address] 0.4 mg under the tongue every 5 minutes as needed for Chest Pain. ??? [DISCONTINUED] omeprazole (PRILOSEC) 20 mg capsule Take 20 mg by mouth daily. ??? pantoprazole (PROTONIX) 20 mg tablet Take 40 mg by mouth daily. ??? [DISCONTINUED] phenytoin (DILANTIN) 50 mg chewable tablet Take 2.5 Tabs by mouth daily. ??? [DISCONTINUED] phenytoin (DILANTIN) 50 mg chewable tablet Take 200 mg by mouth at bedtime. ??? spironolactone (ALDACTONE) 25 mg tablet Take 25 mg by mouth daily. ??? tamsulosin (FLOMAX) 0.4 mg capsule Take 0.4 mg by mouth daily. ??? traZODone (DESYREL) 100 mg tablet Take 100 mg by mouth at bedtime as needed for Sleep. Allergies Allergen Reactions ??? Codeine ??? Risperidone Current medications were reviewed in [facility]. Daily Scheduled Medicine [START ON 06/01/2020] atorvastatin 80 mg DAILY [START ON 06/01/2020] citalopram 40 mg DAILY [START ON 06/01/2020] clopidogreL 75 mg DAILY [START ON 06/01/2020] DIAZepam 2 mg BID [START ON 06/01/2020] digoxin 125 mcg DAILY [START ON 06/01/2020] finasteride 5 mg DAILY [START ON 06/01/2020] fluticasone propionate 2 Puff BID [START ON 06/01/2020] gabapentin 600 mg QID [START ON 06/01/2020] lamoTRIgine 100 mg BID [START ON 06/01/2020] lisinopriL 5 mg DAILY [START ON 06/01/2020] metoprolol XL 50 mg DAILY [START ON 06/01/2020] pantoprazole 40 mg DAILY [START ON 06/01/2020] sodium chloride 0.9 % (flush) 3 mL Q8H [START ON 06/01/2020] spironolactone 25 mg DAILY [START ON 06/01/2020] tamsulosin 0.4 mg DAILY Daily IV Continous IV Medicine heparin in 1/2 NS Last Rate: 15 Units/kg/hr (05/31/202303) nitroglycerin Last Rate: 5 mcg/min (05/31/202300) Daily PRN Medicine acetaminophen 650 mg Q4H PRN albuterol 0.63 mg Q6H PRN heparin 70 Units/kg (Adjusted) PRN Or heparin 35 Units/kg (Adjusted) PRN traZODone 100 mg AT BEDTIME PRN Objective Vitals Temp: -- (), Heart Rate: [63 BPM] (), Pulse: [56] (), Resp: [17-19] (), BP: (128-143)/(69-100) (), SpO2: [98 %] (), O2 Flow Rate (L/min): 3 l/min Numeric Pain Level (Scale 1-10): -- Weight : 56.7 kg (125 lb) Body mass index is 21.46 kg/m??. Physical Exam: BP (!) 143/100 (BP Cuff Location: Right arm, BP Patient Position: Semi fowlers) Resp 17 Ht 162.6cm (64) Wt 56.7 kg (125 lb) BMI 21.46 kg/m?? General: No acute distress, comfortable, answering questions appropriately, stable on 3L NC (at homewill occasionally use 2L) HEENT: EOMI. Sclera/conjunctiva and oropharynx clear. Neck: Supple. Trachea midline. CV: RRR; Normal S1 and S2, No murmurs, rubs or gallops appreciated. Respiratory: Poor effort, but overall sounded clear, diminished in the bases Abdomen: Soft, non-tender to palpation, no masses, no distension, no rebound/guarding. Extremities: Warm and well perfused, no LE edema. Neuro: Alert and oriented x 3. CN and strength grossly intact with known left sided deficits Psych: Appropriate mood and affect. Skin: No rashes, lesions, or excoriations on exposed skin Labs Reviewed in Prism and Significant for: CBC: Recent Labs 05/31/200 WBC 9.63 RBC 4.95 HGB 14.2 HCT 42.0 MCV 85 MCH 28.7 MCHC 33.8 PLT 128* BMP: Recent Labs 05/31/200 NA 138 K 4.1 CL 107 CO2 23 BUN 16 CREATININE 0.83 MG 2.3 Cardiac Markers: Recent Labs 05/31/202299 TROPONINI <0.034 ECG: Imaging/other studies: CTA from [facility] - negative for PE, but showed minimal ground glass appearance of the lungs suggestive of mild edema vs infection Assessment Junaid Arias is a 64 y.o. male with a history significant for STEMI in 2010 with PCI to the distal LCx, CAD with LHC in 2015 showing no significant disease, HFrEF (35% in April 2020), atrial flutter (on apixaban), HLD, TBI with resultant seizures, depression, COPD (2L NC occasionally at home), and GERD who presents as a transfer from [facility] with unstable angina. 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 clopidogrel 75mg daily - heparin gtt - continue nitro gtt - supplemental O2 if needed - FOOD BEVERAGE MANAGER atorvastatin 80mg daily - NPO at midnight for potential intervention ([facility]) or other testing if needed - ordered lipid profile and A1c - TTE ordered Atrial flutter - FOOD BEVERAGE MANAGER metoprolol 50 mg daily - FOOD BEVERAGE MANAGER digoxin 125 mcg daily - hold FOOD BEVERAGE MANAGER apixaban - heparin gtt HFrEF - FOOD BEVERAGE MANAGER metoprolol 50 mg daily, lisinopril 5 mg daily, and spironolactone 25 mg daily - hold FOOD BEVERAGE MANAGER isosorbide dinitrate 20 mg BID while on the nitro gtt History of seizures - FOOD BEVERAGE MANAGER diazepam 2 mg BID and lamotrigine 100 mg BID COPD - FOOD BEVERAGE MANAGER fluticasone BID - FOOD BEVERAGE MANAGER albuterol q6h PRN - wean O2 as tolerated, states he occasionally uses 2L with activity at home GERD - FOOD BEVERAGE MANAGER pantoprazole 40 mg daily BPH - FOOD BEVERAGE MANAGER finasteride 5 mg daily and tamsulosin 0.4 mg daily Depression - FOOD BEVERAGE MANAGER citalopram 40 mg daily - FOOD BEVERAGE MANAGER trazodone 100 mg QHS PRN Chronic pain - FOOD BEVERAGE MANAGER gabapentin 600 mg QID - unclear if he is still taking the hydrocodone, recommend med rec with pharmacy in the AM Mild thrombocytopenia - likely chronic and medication related - daily CBC Diet: NPO for possible LHC vs stress VTE Prophylaxis: heparin gtt Consults: none CODE STATUS: Full, not discussed Prognosis/Disposition: Stable, uncertain dispo at this time, pending [facility] Admission Status Inpatient. Anticipated duration of hospitalization is greater than two midnights due to unstable angina. CHRISTY NAVARRO MD 05/31/2020 23:55 I have seen and examined this patient. I have reviewed the history and physical exam written by the resident physician. In addition, I have reviewed the plan, have discussed with resident staff, and agree with the plan as written. Promise Gilliland MD, #[id number] documented in this encounter Procedure Notes Anthony Everett MD - 06/01/2020 1035 EDT Dear Aissatou Rivera Gonzalo [facility] As you know he is a complex gentleman with a history of remote circumflex PCI at [facility]. He has some disabilities and presented in [facility] with recurrent chest pain. Troponins were negative and EKG showed nonspecific changes. [facility]. We made room and transferred the patient here. The preliminary report is below. In brief there are minor irregularities but no new critical narrowings. No intervention was required. The patient will be discharged either later today or tomorrow. He willbe back on Plavix given a long-term history of aspirin intolerance and back on his Eliquis. I will ask him to check back in with you for follow-up. Thank you Anthony Everett MD Cardiovascular Catheterization Laboratory Preliminary Report -- Catheterization Date of Service/Procedure: 06/01/2020 Attending Physician: Anthony Everett MD Fellow: Spencer Schofield MD Pre-Procedure Diagnosis /NCDR Indication: Junaid Arias is a 64 y.o. year old male with worsening angina and suspected CAD. Chest Pain Symptom Assessment: Atypical Angina NCDR Indication for PCI: New onset Angina <= 2 months If NOT STEMI or NSTE-ACS, Syntax Score: Low Heart Failure: No CHSA Clinical Frailty Scale: 6: Moderately Frail Prior Stress Testing? No Anesthesia: A moderate level of anesthesia/conscious sedation was used in addition to local anesthesia. Access: Right radial artery Procedure: He was brought to [facility] for the procedure: Diagnostic coronary/graft angiography and Left heart cath. Closure: TR Band Post-Procedure Condition: The condition of the patient was Fair. Complications: None. IV Contrast Total: 45 mL X-ray Dose: mGy Estimated Blood Loss: Minimal. Unless otherwise noted,there were no specimens removed, cultures obtained, or drains retained. Research Study: Patient is not enrolled in a research study. Diagnostic Cardiac Study Results Left main: normal Left anterior descending: Mild irregularities, diffuse proximal 30% Left circumflex: Mild irregularities, distal stent good patency and flow Right coronary artery: Mild irregularities, proximal 30% Grafts: n/a Left Ventriculography and Hemodynamic Results LVEDP 10 There was no gradient across the aortic valve. Endovascular Study Results None Post-Procedure Diagnostic Conclusion: Medical therapy is indicated. Likely non cardiac CP I have contacted his son Marciano cell with up date. Resume prior cardiac meds Eliquis and plavix. Aspirin not required. Consider d/c later today Anthony Everett MD PagerNumber: [phone] 06/01/2020 10:35 documented in this encounter Miscellaneous Notes Plan of Care - Mary Kelley RN - 06/01/2020 2004 EDT Nursing Discharge Note D: Pt s/p cath with no interventions. RRA site CDI. Patient noted with discharge orders to home [facility]. A: Prescriptions e-scripted. Reviewed discharge instructions and prescriptions with Patient. IV d/c'd. Belongings collected and sent home with patient. Pt instructed to restart eliquis tomorrow per MD. R: Patient verbalized understanding of discharge instructions and denied further questions. MARY KELLEY RN 06/01/2020 20:05 Problem: Daily Care Plan Goals Goal: Care Plan Documentation Outcome: Met This Shift Problem: High Fall Risk: Goal: Patient will Remain Free of Falls due to Med. Side Effects Outcome: Met This Shift Problem: SKIN INTEGRITY Goal: Skin integrity will improve or be maintained Outcome: Met This Shift Problem: Risk For Imapaired Skin Integrity Goal: Incontinence Is Managed Outcome: Met This Shift Problem: Impaired Skin Integrity Goal: Signs of wound healing will improve Outcome: Met This Shift Problem: Cognitive: Goal: Mental status/cognition is maintained/returned to baseline Outcome: Met This Shift lan of Care - Blessing Cortez RN - 06/01/2020 0610 EDT 52 BPM Normal sinus rhythm RR 16 134/78 on None 0 l/min Data: Admitted from OSH with complaints of chest pain and some SOB. Trop(-)x2 Upon arrival to [facility] still some complaints of cp 01/08. PMX of CVA in 2010. Pt presents with right sided weakness. Pt states that he uses a wheelchair at home and also recently has been using a walker within the last month. Hegets help with ADL'S from his son and home health aids. Action: Nitro gtt continued. Heparin gtt initiated. Response: NPO for stress test vs LHC. And TTE BLESSING CORTEZ RN 06/01/2020 6:10 documented in this encounter Plan of Treatment Scheduled Referrals Name Type Priority Associated Diagnoses Order S chedule AMB CONS/FOLLOW UP Outpatient Referral Routine Unstable angina [facility] PHYSICIAN documented as of this encounter Procedures Procedure Name Priority Date/Time Associated Comments Diagnosis ECG REPORT - SCANNED 06/04/2020 14:26 EDT ECG REPORT - SCANNED 06/04/2020 14:25 EDT CARDIAC CATHETERIZATION Routine 06/01/2020 10:34 Results for this EDT procedure are i n the results section. ECG REPORT - SCANNED 06/01/2020 7:57 EDT ECG REPORT - SCANNED 06/01/2020 7:57 EDT TROPONIN I Routine 06/01/2020 6:05 Results for this EDT procedure are i n the results section. HEPARIN LEVEL - STAT 06/01/2020 6:05 Results f or this UNFRACTIONATED HEPARIN EDT proce dure are in the results section. POTASSIUM Routine 06/01/2020 6:05 Results for this EDT procedure are i n the results section. MAGNESIUM Routine 06/01/2020 6:05 Results for this EDT procedure are i n the results section. CREATININE Routine 06/01/2020 6:05 Results for this EDT procedure are i n the results section. COMPLETE BLOOD COUNT Routine 06/01/2020 6:04 Resu lts for this EDT procedure are i n the results section. EKG 12-LEAD Routine 05/31/2020 23:03 Results for this EDT procedure are i n the results section. TROPONIN I Routine 05/31/2020 23:00 Results for this EDT procedure are i n the results section. COMPLETE BLOOD COUNT Routine 05/31/2020 23:00 Res ults for this EDT procedure are i n the results section. BUN Routine 05/31/2020 23:00 Results for this EDT procedure are i n the results section. MAGNESIUM Routine 05/31/2020 23:00 Results for this EDT procedure are i n the results section. HEMOGLOBIN A1C Add-On 05/31/2020 23:00 Results f or this EDT procedure are i n the results section. CREATININE Routine 05/31/2020 23:00 Results for this EDT procedure are i n the results section. LIPID PROFILE (INCLUDES Add-On 05/31/2020 23:00 Results for this CHOLESTEROL, EDT procedure are i n TRIGLYCERIDES, HDL, LDL) the results section. ELECTROLYTES Routine 05/31/2020 23:00 Results for this EDT procedure are i n the results section. EKG 12-LEAD Routine 05/31/2020 22:25 Results for this EDT procedure are i n the results section. documented in this encounter Results LEFT HEART CATH (06/01/2020 10:34 EDT) Specimen Narrative [facility] CARDIOLOGY MAIN [facility] S - 06/02/2020 9:52 EDT Cardiology [address] [place] [address] Catheterization Laboratory Study Patient: Junaid Arias ? Study Date: ? 06/01/2020 ? Accession #: ?[id number] : ? 1955 Referring: Diagnostic Attending: ??Anthony Everett Interventional Attending: ?? Marylu Everett Diagnostic Fellow: Spencer Schofield MD ATTESTATION: I, Dr. Spencer Schofield was the initial auth or of this report. Dr. Anthony Everett was present and supervising for e entire procedure. I, Dr. Anthony Everett have reviewed and agreed with the findings of this report. PROCEDURE PLAN: A diagnostic study was performed without intervention. RESEARCH STUDY: Patient is not enrolled in any research studies. IMPRESSIONS: Mild coronary artery disease. SUMMARY: 1. HPI and indications: Chest pain. 2. End diastolic pressure in the left ve ntricle is at the lower limits ?? of normal. Pressure measurements acr oss the aortic valve show no ?? evidence of stenosis. 3. Impressions: Mild coronary artery dis ease. RECOMMENDATIONS: 1. ACC recommendation: Medical therapy a nd/or counseling. 2. Patient management should include ris k factor modification and ?? lifestyle change to reduce stress. HISTORY: Chest pain. STUDY DATA: Location: ??Catheterization laboratory. Sex: male. Patient is 64yr old. Procedures performed: ?[Vessel]. ?Left coronary angiography. Right coronary angiography. ANESTHESIA: Conscious sedation by cardiology staff. PROCEDURE: 1. Initial setup. The patient was carly t to the laboratory in the ?? fasting state. A baseline ECG was re corded. Surface ECG leads, ?? automatic cuff blood pressure measur ements, and pulse oximetric ?? signals were monitored. 2. Skin preparation. The planned punctur e sites were prepped with ?? chlorhexidine and draped in the usua l sterile manner. 3. Local anesthesia. Using 2% Lidocaine, local anesthetic was ?? administered to the access site(s). 4. [Vessel]. A 6 Fr SLENDER sheath was a dvanced into the vessel. 5. Selective left coronary angiography w ith access from the right radial ?? artery. A catheter was advanced into the left coronary vessel ostium ?? under fluoroscopic guidance. Images were obtained in multiple ?? projections. 6. Selective right coronary angiography. A catheter was advanced into ?? the right coronary vessel ostium und er fluoroscopic guidance. Images ?? were obtained in multiple projection s. 7. Right radial artery hemostasis. The s staci was removed. Mechanical ?? compression was applied. STUDY COMPLETION: The estimated blood loss was 10ml. All c atheters inserted during the procedure were removed. The patient akil rated the procedure well and was discharged from the lab. CORONARY ARTERIES: The coronary circulation is right domina nt. Left main: ??Normal. LAD: ??Mild diffuse disease. ??Proximal vessel lesion: There is a 30% stenosis. Left circumflex: ??Minor luminal irregul arities. Prior intervention: stent in the distal left circumflex. The stented segment is patent. Right coronary: ??Mild diffuse disease. ??Proximal vessel lesion: There is a 30% stenosis. HEMODYNAMICS: End diastolic pressure in the left ventr icle is at the lower limits of normal. Pressure measurements across the aortic valve show no evidence of stenosis. Electronically signed by Anthony Everett MD 2020-06-02 09:52 Performing Organization Address City/[facility]/ZIP Code Phon e Number [facility] CARDIOLOGY MAIN CAMPUS MAGNESIUM (06/01/2020 6:05 EDT) [facility] Magnesium 2.2 1.7 - 2.8 mg/dL [facility] LABORA TORY SERVICES Specimen Blood - Venous blood (substance) Performing Organization Address City/State/ZIP Code Phon e Number [facility] LABORATORY [address] [place] [address] SERVICES POTASSIUM (06/01/2020 6:05 EDT) Pathologist Sig nature Potassium 3.9 3.5 - 5.0 mEq/L [facility] LABORA TORY SERVICES Specimen Blood - Venous blood (substance) Performing Organization Address [facility]/ZIP Code Phon e Number [facility] LABORATORY [address] [place] [address] SERVICES CREATININE (06/01/2020 6:05 EDT) Creatinine 0.76 0.66 - 1.25 [facility] mg/dL LABORATORY SERVICES eGFR 96Comment: eGFR >60 [facility] calculated using mL/min/1.73m2 LABORATORY SERVICES CKD-EPI equation for non- Americans. Multiply eGFR by 1.16 for patients. Specimen Blood - Venous blood (substance) Performing Organization Address [facility] Phon e Number [facility] LABORATORY [address] [place] [address] SERVICES HEPARIN LEVEL - UNFRACTIONATED HEPARIN (06/01/2020 6:05 EDT) Heparin 0.89Comment: Therapeutic [facility] MED[facility] Unfractionated Range: 0.30 - CENTER heparin therapeutic 0.70 IU/mL LABORATORY range = 0.3-0.7 SERVICES IU/ml - This test is not intended for monitoring direct Xa inhibitors, direct thrombin inhibitors, or fondaparinux.- Exogenous ATIII is NOT supplied in this assay. For unexpected or persistently low levels, consider measuring patient's ATIII level. Results will be overestimated in the presence of direct Xa inhibitors (rivaroxaban, apixaban, edoxaban). Specimen Blood - Venous blood (substance) Performing Organization Address City/[facility]/ZIP Code Phon e Number [facility] LABORATORY [address] [place] [address] SERVICES TROPONIN I (06/01/2020 6:05 EDT) Pathologist Sig nature Troponin I (ng/mL) <0.034 <0.034 ng/mL [facility] LABORATORY SERVICES Specimen Blood - Venous blood (substance) Narrative [facility] LABORATORY SERVICES - 06/01/2020 6:51 EDT The results of this assay can be falsely lowered due to the consumption of Biotin. Performing Organization Address City/[facility]/ZIP Code Phon e Number [facility] LABORATORY [address] [place] [address] SERVICES (ABNORMAL) COMPLETE BLOOD COUNT (06/01/2020 6:04 EDT) Pathologist Sig nature WBC 9.81 4.00 - 10.40 K/cmm [facility] LABORATORY SERVICES RBC 5.18 4.36 - 5.78 M/cmm [facility] LABORATORY SERVICES Hemoglobin 14.5 13.8 - 17.3 gm/dL [facility] LABORATORY SERVICES HCT 44.3 39.5 - 50.2 % [facility] LABORATORY SERVICES MCV 86 81 - 95 fl [facility] LABORATORY SERVICES MCH 28.0 27.6 - 33.0 pg [facility] LABORATORY SERVICES MCHC 32.7 (L) 32.8 - 36.4 gm/dL [facility] LABORATORY SERVICES RDW-CV 14.4 (H) <14.2 % [facility] LABORATORY SERVICES RDW-SD 44.1 <46.0 fl [facility] LABORATORY SERVICES PLT 125 (L) 141 - 377 K/cmm [facility] LABORATORY SERVICES MPV 10.5 9.5 - 12.7 fl [facility] LABORATORY SERVICES Specimen Blood - Venous blood (substance) Performing Organization Address City/[facility]/ZIP Code Phon e Number [facility] LABORATORY [address] [place] [address] SERVICES EKG 12-LEAD (05/31/2020 23:03 EDT) Specimen Narrative [facility] EKG - 06/01/2020 7:52 EDT ? [facility] ? Test Date: ?2020-05-31 Pat Name: ? JUNAID ARIAS ?Department: ?? [facility] 4 ? Room: ? CL8044 Gender: ? Male ? 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 : ?1955 ? Requested By: RAMON HARRISON Order Number: [id number] ? Reading MD: ?? ANTHONY EVERETT MD ? Measurements Intervals ?[place] ? Rate: ? 51 ? P: ?22 CT: ? 152 ?QRS: ?37 QRSD: ? 88 ? T: ?6 QT: ? 464 ? QTc: ?429 ? Interpretive Statements SINUS BRADYCARDIA POSSIBLE INFERIOR MYOCARDIAL INFARCTION, PROBABLY OLD Nonspecific ST and T wave abnormaliities Compared to ECG 05/31/2020 22:25:27 Sinus rhythm no longer present Ventricular premature complex(es) no ragiin malaika present I reviewed the tracing and have either a greed or edited the findings in this report. Electronically Signed On 7:52:55 EDT by ANTHONY EVERETT MD. 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 Electronically Signed On 7:52:55 EDT by ANTHONY EVERETT MD. Performing Organization Address City/State/ZIP Code Phon e Number [facility] EKG LIPID PROFILE (INCLUDES CHOLESTEROL, TRIGLYCERIDES, HDL, LDL) (05/31/2020 23:00 EDT) Cholesterol 125 See Note [facility] Comment: mg/dL CENTER LABORATORY Acceptable: ?<200 mg/dL SERVICES Borderline High: 200-239 mg/dL High: ?> or = 240 mg/dL HDL 40 See Note [facility] Comment: mg/dL CENTER LABORATORY Low: ? <40 mg/dL SERVICES Normal: ??40-60 mg/dL High: ?>60 mg/dL LDL, Calculated 41 See Note [facility] Comment: mg/dL CENTER LABORATORY Optimal: ? <100 mg/dL SERVICES Near Optimal: ?100-129 mg/dL Borderline High: 130-159 mg/dL High: ?160-189 mg/dL Very High: ? > or = 190 mg/dL Triglyceride 218 See Note [facility] Comment: mg/dL CENTER LABORATORY Normal: ? <150 mg/dL SERVICE S Borderline High: ??150 - 199 mg/dL High: ? 200 - 499 mg/dL Very High: ?> or = 500 mg/dL Chol/HDL Ratio 3.1 See Note [facility] Comment: CENTER LABORATORY SERVICES No reference range has been established for CHOL/HDL r atio. Non HDL Cholesterol 85 See Note [facility] Comment: mg/dL CENTER LABORATORY Desirable: ?<130 mg/dL SERVICES Borderline High: ??130-159 mg/dL High: ? 160-189 mg/dL Very High: ?> or = 190 mg/dL Specimen Blood - Venous blood (substance) Performing Organization Address City/State/ZIP Code Phon e Number [facility] LABORATORY [address] [place] [address] SERVICES HEMOGLOBIN A1C (05/31/2020 23:00 EDT) Hemoglobin A1c 5.5 <5.7 % [facility] Comment: LABORATORY SERVICES Glycemic Status References: Normal: ??<5.7% Pre-Diabetes: ??5.7% - 6.4% Diagnostic of Diabetes: ??> or = 6.5% (if confirmed) Goals for glycemic control in diabetics (ADA 2017): <7.0% target for non adults with diabetes. <7.5% target for children and adolescents with Type I Diabetes. More or less stringent targets may be appropriate for individual patients. Est Avg Glucose 111Comment: The eAG mg/dL [facility] represents the A1c LABORATORY SERVICES result expressed as average glucose in mg/dL. Specimen Blood - Venous blood (substance) Performing Organization Address [facility]/ZIP Code Phon e Number [facility] LABORATORY [address] [place] [address] SERVICES TROPONIN I (05/31/2020 23:00 EDT) Pathologist Sig nature Troponin I (ng/mL) <0.034 <0.034 ng/mL [facility] LABORATORY SERVICES Specimen Blood - Venous blood (substance) Narrative [facility] LABORATORY SERVICES - 05/31/2020 23:36 EDT The results of this assay can be falsely lowered due to the consumption of Biotin. Performing Organization Address City/[facility]/ZIP Code Phon e Number [facility] LABORATORY [address] [place] [address] SERVICES BUN (05/31/2020 23:00 EDT) Pathologist Sig nature BUN 16 10 - 26 mg/dL [facility] LABORATO RY SERVICES Specimen Blood - Venous blood (substance) Performing Organization Address [facility] Phon e Number [facility] LABORATORY [address] [place] [address] SERVICES MAGNESIUM (05/31/2020 23:00 EDT) Pathologist Sig nature Magnesium 2.3 1.7 - 2.8 mg/dL [facility] LABORA TORY SERVICES Specimen Blood - Venous blood (substance) Performing Organization Address [facility] Phon e Number [facility] LABORATORY [address] [place] [address] SERVICES CREATININE (05/31/2020 23:00 EDT) Creatinine 0.83 0.66 - 1.25 [facility] [facility] mg/dL LABORATORY SERVICES eGFR 93Comment: eGFR >60 [facility] calculated using mL/min/1.73m2 LABORATORY SERVICES CKD-EPI equation for non- Americans. Multiply eGFR by 1.16 for patients. Specimen Blood - Venous blood (substance) Performing Organization Address [facility]/ZIP [facility] Phon e Number [facility] LABORATORY [address] [place] [address] SERVICES ELECTROLYTES (05/31/2020 23:00 EDT) Pathologist Sig nature Sodium 138 136 - 145 mEq/L [facility] LABORA TORY SERVICES Potassium 4.1 3.5 - 5.0 mEq/L [facility] LABORA TORY SERVICES Chloride 107 96 - 110 mEq/L [facility] LABORAT ORY SERVICES CO2 Total 23 22 - 32 mEq/L [facility] LABORATO RY SERVICES Specimen Blood - Venous blood (substance) Performing Organization Address [facility] Phon e Number [facility] LABORATORY [address] [place] [address] SERVICES (ABNORMAL) COMPLETE BLOOD COUNT (05/31/2020 23:00 EDT) Pathologist Sig nature WBC 9.63 4.00 - 10.40 K/cmm [facility] LABORATORY SERVICES RBC 4.95 4.36 - 5.78 [facility] Hemoglobin 14.2 13.8 - 17.3 gm/dL [facility] LABORATORY SERVICES HCT 42.0 39.5 - 50.2 % [facility] LABORATORY SERVICES MCV 85 81 - 95 fl [facility] LABORATORY SERVICES MCH 28.7 27.6 - 33.0 pg [facility] LABORATORY SERVICES MCHC 33.8 32.8 - 36.4 gm/dL [facility] LABORATORY SERVICES RDW-CV 14.6 (H) <14.2 % [facility] LABORATORY SERVICES RDW-SD 44.5 <46.0 fl [facility] LABORATORY SERVICES PLT 128 (L) 141 - 377 [facility] MPV 10.3 9.5 - 12.7 fl [facility] LABORATORY SERVICES Specimen Blood - Venous blood (substance) Performing Organization Address City/[facility]/ZIP Code Phon e Number [facility] LABORATORY [address] [place] [address] SERVICES EKG 12-LEAD (05/31/2020 22:25 EDT) Specimen Narrative [facility] EKG - 06/01/2020 7:53 EDT ? [facility] ? Test Date: ?2020-05-31 Pat Name: ? JUNAID ARIAS ?Department: ?? [facility] [address] ? Room: ? [id number] Gender: ? Male ? 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 [id number] : ?1955 ? Requested By: MARGUERITE DYER T Order Number: [id number] ? Reading MD: ?? ANTHONY EVERETT MD ? Measurements Intervals ?[place] ? Rate: ? 65 ? P: ?71 CT: ? 148 ?QRS: ?42 QRSD: ? 94 ? T: ?2 QT: ? 422 ? QTc: ?439 ? Interpretive Statements SINUS RHYTHM WITH FREQUENT VENTRICULAR P REMATURE COMPLEXES IN A BIGEMINAL PATTERN NONSPECIFIC ST & T-WAVE ABNORMALITY ABNORMAL RHYTHM ECG Compared to ECG 07/10/2017 07:18:11 Ventricular premature complex(es) now pr esent Myocardial infarct finding no longer pre sent Possible ischemia no longer present T-wave abnormality still present I reviewed the tracing and have either a greed or edited the findings in this report. Electronically Signed On 7:53:09 EDT by ANTHONY EVERETT MD. 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: [id number] : 1955 Requested By: MARGUERITE Underwood Order Number: [id number] Reading MD: Nilton EVERETT MD Measurements Intervals [place] Rate: 65 P: 71 CT: 148 QRS: 42 QRSD: 94 T: 2 QT: 422 QTc: 439 Interpretive Statements SINUS RHYTHM WITH FREQUENT VENTRICULAR P REMATURE COMPLEXES IN A BIGEMINAL PATTERN NONSPECIFIC ST & T-WAVE ABNORMALITY ABNORMAL RHYTHM ECG Compared to ECG 07/10/2017 07:18:11 Ventricular premature complex(es) now pr esent Myocardial infarct finding no longer pre sent Possible ischemia no longer present T-wave abnormality still present I reviewed the tracing and have either a greed or edited the findings in this report. Electronically Signed On 7:53:09 EDT by ANTHONY EVERETT MD. Performing Organization Address City/State/ZIP Code Phon e Number [facility] EKG documented in this encounter Visit Diagnoses Not on filedocumented in this encounter Admitting Diagnoses Diagnosis ACS (acute coronary syndrome) (HCC-CMS) (HCC) Intermediate coronary syndrome documented in this encounter Administered Medications Inactive Administered Medications - up to 3 most recent administrations Medication Order MAR Action Action Date Dose Rate Site aspirin chewable 81 mg tablet 1 dose, Starting on 06/01/20 at 0954, Until Sat at 2204 aspirin chewable tablet Given 06/01/2020 10:00 EDT 81 mg PRN, Starting on 06/01/20 at 1000, Until 06/01/20 at 1034, Routine, Intraprocedure atorvastatin (LIPITOR) tablet 80 mg Given 06/01/2020 9:03 EDT 80 mg 80 mg, oral, DAILY, First dose on 06/01/20 at 0900, Until Discontinued, Routine citalopram (CELEXA) tablet 40 mg Given 06/01/2020 9:03 EDT 40 mg 40 mg, oral, DAILY, First dose on 06/01/20 at 0900, Until Discontinued, Routine clopidogreL (PLAVIX) tablet 75 mg Given 06/01/2020 9:03 EDT 75 mg 75 mg, oral, DAILY, First dose on 06/01/20 at 0900, Until Discontinued, Routine DIAZepam (VALIUM) tablet 2 mg Given 06/01/2020 9:03 EDT 2 mg 2 mg, oral, 2 TIMES DAILY (0900 & 2100), First dose on 06/01/20 at 0000, Until Discontinued, Routine Given 06/01/2020 0:39 EDT 2 mg digoxin (LANOXIN) tablet 125 mcg Given 06/01/2020 9:03 EDT 125 mcg 125 mcg, oral, DAILY, First dose on 06/01/20 at 0900, Until Discontinued, Routine fentaNYL (DURAGESIC) patch Patch Applied 06/01/2020 13:12 EDT 75 mcg Left Shoulder 75 mcg 75 mcg, transdermal, EVERY 72 HOURS, First dose (after last modification) on 06/01/20 at 1215, Until Discontinued fentaNYL citrate (PF) injection Given 06/01/2020 10:18 EDT 25 mcg PRN, Starting on 06/01/20 at 1009, Until 06/01/20 at 1034, Routine, Intraprocedure Given 06/01/2020 10:11 EDT 25 mcg Given 06/01/2020 10:09 EDT 25 mcg finasteride (PROSCAR) tablet 5 mg Given 06/01/2020 9:11 EDT 5 mg 5 mg, oral, DAILY, First dose on 06/01/20 at 0900, Until Discontinued, Routine fluticasone propionate (FLOVENT) 110 mcg /actuation inhaler 2 Puff 2 Puff, inhalation, 2 TIMES DAILY (0900 & 2100), First dose (after last modification) on 06/01/20 at 0900, Until Discontinue d, Routine gabapentin (NEURONTIN) capsule 600 mg Given 06/01/2020 18:02 EDT 600 mg 600 mg, oral, 4 TIMES DAILY, First dose on 06/01/20 at 0000, Until Discontinued, Routine Given 06/01/2020 13:12 EDT 600 mg Given 06/01/2020 9:03 EDT 600 mg iopamidoL (ISOVUE-370) injection Given 06/01/2020 10:33 EDT 45 mL PRN, Starting on 06/01/20 at 1033, Until 06/01/20 at 1034, Routine, Intraprocedure lamoTRIgine (LAMICTAL) tablet 100 mg Given 06/01/2020 9:03 EDT 100 mg 100 mg, oral, 2 TIMES DAILY (0900 & 2100), First dose on 06/01/20 at 0000, Until Discontinued, Routine Given 06/01/2020 0:39 EDT 100 mg lidocaine 20 mg/mL (2 %) injection 1 dose, Starting on 06/01/20 at 0913, Until Sat at 2204 lisinopriL (PRINIVIL) tablet 5 mg Given 06/01/2020 9:03 EDT 5 mg 5 mg, oral, DAILY, First dose on 06/01/20 at 0900, Until Discontinued, Routine metoprolol XL (TOPROL-XL) tablet 50 mg Given 06/01/2020 9:03 EDT 50 mg 50 mg, oral, DAILY, First dose on 06/01/20 at 0900, Until Discontinued, Routine midazolam (PF) (VERSED) injection Given 06/01/2020 10:11 EDT 1 mg PRN, Starting on 06/01/20 at 1010, Until 06/01/20 at 1034, Routine, Intraprocedure Given 06/01/2020 10:10 EDT 1 mg pantoprazole (PROTONIX) tablet 40 mg Given 06/01/2020 9:03 EDT 40 mg 40 mg, oral, DAILY, First dose on 06/01/20 at 0900, Until Discontinued, Routine sodium chloride 0.9 % (flush) flush 3 mL Given 06/01/2020 17:40 EDT 3 mL 3 mL, intravenous, EVERY 8 HOURS, First dose on 06/01/20 at 0000, Until Discontinued, Routine Given 06/01/2020 9:05 EDT 3 mL Given 05/31/2020 23:06 EDT 3 mL spironolactone (ALDACTONE) tablet 25 mg Given 06/01/2020 9:03 EDT 25 mg 25 mg, oral, DAILY, First dose on 06/01/20 at 0900, Until Discontinued, Routine tamsulosin (FLOMAX) capsule 0.4 mg Given 06/01/2020 9:03 EDT 0.4 mg 0.4 mg, oral, DAILY, First dose on 06/01/20 at 0900, Until Discontinued, Routine documented in this encounter Discontinued Medications Medication Sig Discontinue Reason Start Date End Date phenytoin (DILANTIN) 50 Take 200 mg by mouth 05/31/2020 mg chewable tablet at bedtime. phenytoin (DILANTIN) 50 Take 2.5 Tabs by 07/11/2017 05/31/2020 mg chewable tablet mouth daily. hydrOXYzine (ATARAX) 25 Take 25 mg by mouth 05/31/2020 mg tablet every 6 hours as needed for Itching or Anxiety. meloxicam (MOBIC) 15 mg Take 15 mg by mouth 05/31/2020 tablet daily. aspirin 81 mg EC tablet Take 81 mg by mouth 05/31/2020 daily. omeprazole (PRILOSEC) 20 Take 20 mg by mouth 05/31/2020 mg capsule daily. documented as of this encounter Historical Medications This list may reflect changes made after this encounter. Medication Sig Dispensed Refills Start Date End Date fentaNYL (DURAGESIC) 75 Place 75 mcg onto 0 mcg/hr patch the skin every 72 hours. pantoprazole (PROTONIX) 20 Take 40 mg by mouth 0 mg tablet daily. isosorbide dinitrate Take 20 mg by mouth 0 (ISORDIL) 20 mg tablet 2 times daily. DIAZepam (VALIUM) 2 mg Take 2 mg by mouth 0 tablet 2 times daily. digoxin (LANOXIN) 125 mcg Take 125 mcg by 0 (0.125 mg) tablet mouth daily. tamsulosin (FLOMAX) 0.4 mg Take 0.4 mg by 0 capsule mouth daily. spironolactone (ALDACTONE) Take 25 mg by mouth 0 25 mg tablet daily. metoprolol XL (TOPROL-XL) 50 Take 50 mg by mouth 0 mg tablet daily. finasteride (PROSCAR) 5 mg Take 5 mg by mouth 0 tablet daily. clopidogreL (PLAVIX) 75 mg Take 75 mg by mouth 0 tablet daily. apixaban (ELIQUIS) 2.5 mg Take 5 mg by mouth 0 tablet 2 times daily. added in this encounter Active and Recently Administered Medications Times are shown in EDT. Scheduled Medication Order 05/30/2020 05/31/2020 06/01/2020 atorvastatin (LIPITOR) tablet 80 mg 0903 (Given - Provider: Maxx House RN)0958 ([facility] Hold - Provider: User Epic - Reason: Patient off unit)1051 ([facility] Unhold - Provider: User Epic) 80 mg, oral, DAILY, First dose on 06/01/20 at 0900, Until Discontinued, Routine citalopram (CELEXA) tablet 40 mg 0903 (Given - Provider: Maxx House RN)0958 ([facility] Hold - Provider: User Epic - Reason: Patient off unit)1051 ([facility] Unhold - Provider: User Epic) 40 mg, oral, DAILY, First dose on 06/01/20 at 0900, Until Discontinued, Routine clopidogreL (PLAVIX) tablet 75 mg 0903 (Given - Provider: Maxx House RN)0958 ([facility] Hold - Provider: User Epic - Reason: Patient off unit)1051 ([facility] Unhold - Provider: User Epic) 75 mg, oral, DAILY, First dose on 06/01/20 at 0900, Until Discontinued, Routine DIAZepam (VALIUM) tablet 2 mg 00 39 (Given - Provider: Blessing Cortez RN)0903 (Given - Provider: Maxx House RN)0958 ([facility] Hold - Provider: User Epic - Reason: Patient off unit)1051 ([facility] Unhold - Provider: User Epic) 2 mg, oral, 2 TIMES DAILY, First dose on 06/01/20 at 0000, Until Discontinued, Routine 2100 (Canceled Entry - Provider: Batch Job User Admin - Comment: Automatically canceled at discontinue of medication order) digoxin (LANOXIN) tablet 125 mcg 0903 (Given - Provider: Maxx House RN)0958 ([facility] Hold - Provider: User Epic - Reason: Patient off unit)1051 ([facility] Unhold - Provider: User Epic) 125 mcg, oral, DAILY, First dose on 06/01/20 at 0900, Until Discontinued, Routine fentaNYL (DURAGESIC) patch 75 mcg 1312 (Patch Applied - Provider: Maxx House RN) 75 mcg, transdermal, EVERY 72 HOURS, Fir st dose on 06/01/20 at 1215, Until Discontinued finasteride (PROSCAR) tablet 5 mg 0911 (Given - Provider: Maxx House RN)0958 (DEC Hold - Provider: User Epic - Reason: Patient off unit)1051 (DEC Unhold - Provider: User Epic) 5 mg, oral, DAILY, First dose on Sat 06/01 at 0900, Until Discontinued, Routine fluticasone propionate (FLOVENT) 110 mcg/actuation inhaler 2 Puf f 0913 (Not Given - Provider: Maxx House RN - Reason: Patient/family refused)0958 (MAR Hold - Provider: User Epic - Reason: Patient off unit)1051 (DEC Unhold - Provider: User Epic) 2 Puff, inhalation, 2 TIMES DAILY, First dose on 06/01/20 at 0900, Until Discontinued, Routine 2100 (Canceled Ent ry - Provider: Batch Job User Admin - Comment: Automatically canceled at discontinue of medication order) gabapentin (NEURONTIN) capsule 600 mg 0039 (Given - Provider: Blessing Cortez RN)0903 (Given - Provider: Maxx House RN)0958 (MAR Hold - Provider: User Epic - Reason: Patient off unit)1051 (MAR Unhold - Provider: User Epic)1312 (Gi sakina - Provider: Maxx House RN) 600 mg, oral, 4 TIMES DAILY, First dose on 06/01/20 at 0000, Until Discontinued, Routine 1802 (Given - Prov ider: Maxx House RN)2100 (Canceled Entry - Provider: Batch Job User Admin - Comment: Automatically canceled at discontinue of medication order) lamoTRIgine (LAMICTAL) tablet 100 mg 0039 (Given - Provider: Blessing Cortez RN)0903 (Given - Provider: Maxx House RN)0958 (DEC Hold - Provider: User Epic - Reason: Patient off unit)1051 ([facility] Unhold - Provider: User Epic) 100 mg, oral, 2 TIMES DAILY, First dose on 06/01/20 at 0000, Until Discontinued, Routine 2100 (Canceled Ent ry - Provider: Batch Job User Admin - Comment: Automatically canceled at discontinue of medication order) lisinopriL (PRINIVIL) tablet 5 mg 0903 (Given - Provider: Maxx House RN)0958 ([facility] Hold - Provider: User Epic - Reason: Patient off unit)1051 ([facility] Unhold - Provider: User Epic) 5 mg, oral, DAILY, First dose on Sat 06/01 at 0900, Until Discontinued, Routine metoprolol XL (TOPROL-XL) tablet 50 mg 0903 (Given - Provider: Maxx House RN)0958 ([facility] Hold - Provider: User Epic - Reason: Patient off unit)1051 ([facility] Unhold - Provider: User Epic) 50 mg, oral, DAILY, First dose on 06/01/20 at 0900, Until Discontinued, Routine pantoprazole (PROTONIX) tablet 40 mg 0903 (Given - Provider: Maxx House RN)0958 ([facility] Hold - Provider: User Epic - Reason: Patient off unit)1051 ([facility] Unhold - Provider: User Epic) 40 mg, oral, DAILY, First dose on 06/01/20 at 0900, Until Discontinued, Routine sodium chloride 0.9 % (flush) flush 3 mL 2306 (Given - Provider: Blessing Cortez RN) 0905 (Given - Provider: Maxx lujan RN)0958 ([facility] Hold - Provider: User Epic - Reason: Patient off unit)1051 ([facility] Unhold - Provider: User Epic)1740 (Given - Provider: Maxx House RN) 3 mL, intravenous, EVERY 8 HOURS, First dose on 06/01/20 at 0000, Until Discontinued, Routine spironolactone (ALDACTONE) tablet 25 mg 0903 (Given - Provider: Maxx House RN)0958 ([facility] Hold - Provider: User Epic - Reason: Patient off unit)1051 ([facility] Unhold - Provider: User Epic) 25 mg, oral, DAILY, First dose on 06/01/20 at 0900, Until Discontinued, Routine tamsulosin (FLOMAX) capsule 0.4 mg 0903 (Given - Provider: Maxx House, RN)0958 (DEC Hold - Provider: User Epic - Reason: Patient off unit)1051 (DEC Unhold - Provider: User Epic) 0.4 mg, oral, DAILY, First dose on Sat at 0900, Until Discontinued, Routine Continuous Medication Order 05/30/2020 05/31/2020 06/01/2020 heparin in 12 NS 25,000 unit/250 mL infusion (CANCELED) 230 (New Bag - Provider: Blessing Cortez, RN) 0722 (Rate Change - Provider: Blessing samuels, RN)1000 (Completed - Provider: Hever Naidu, RN) 13 Units/kg/hr ? 56.7 kg Adjusted weight (7.371 mL/hr, rounded to 7.4 mL/hr), intravenous, at 7.4 mL/hr, CONTINUOUS, Starting Wed05/31/20 at 2300, Until 06/01/20 at 1037, Routine nitroglycerin 400 mcg/ml in D5W 250 ml infusion (CANCELED) 2300 (New Bag - Provider: Blessing Cortez, RN) 0722 (Rate Documented - Provider: Maxx House, TRES)1000 (Completed - Provider: Hever Naidu, RN) 5 mcg/min (0.75 mL/hr, rounded to 0.8 mL /hr), intravenous, at 0.8 mL/hr, CONTINUOUS, Starting Wed05/31/20 at 2300, Until 06/01/20 at 1037, Routine PRN Medication Order 05/30/2020 05/31/2020 06/01/2020 acetaminophen (TYLENOL) tablet 650 mg 0958 (DEC Hold - Provider: User Epic - Reason: Patient off unit)1051 (DEC Unhold - Provider: User Epic) 650 mg, oral, EVERY 4 HOURS PRN, Startin g Wed05/31/20 at 2229, Until 06/01/20 at 2204, Pain, Routine albuterol (ACCUNEB) nebulizer solution 0.63 mg 0958 (DEC Hold - Provider: User Epic - Reason: Patient off unit)1051 (DEC Unhold - Provider: User Epic) 0.63 mg, nebulization, EVERY 6 HOURS PRN , Starting Wed05/31/20 at 2329, Until 06/01/20 at 2204, Wheezing aspirin chewable tablet (CANCELED) 1000 (Given - Provider: Duane Dubose RN) PRN, Starting 06/01/20 at 1000, Until 06/01/20 at 1034, Routine, Intraprocedure fentaNYL citrate (PF) injection (CANCELED) 1009 (Given - Provider: Saima Rankin RN)1011 (Given - Provider: Saima Rankin RN)1018 (Given - Provider: Saima Rankin RN) PRN, Starting 06/01/20 at 1009, Until 06/01/20 at 1034, Routine, Intraprocedure iopamidoL (ISOVUE-370) injection (CANCELED) 1033 (Given - Provider: Anthony Everett MD) PRN, Starting 06/01/20 at 1033, Until 06/01/20 at 1034, Routine, Intraprocedure midazolam (PF) (VERSED) injection (CANCELED) 1010 (Given - Provider: Saima Rankin RN)1011 (Given - Provider: Saima Rankin RN) PRN, Starting 06/01/20 at 1010, Until 06/01/20 at 1034, Routine, Intraprocedure traZODone (DESYREL) tablet 100 mg 0958 (DEC Hold - Provider: User Epic - Reason: Patient off unit)1051 (DEC Unhold - Provider: User Epic) 100 mg, oral, AT BEDTIME PRN, Starting F ri 05/31/20 at 2330, Until 06/01/20 at 2204, Sleep, Routine No Frequency Medication Order 05/30/2020 05/31/2020 06/01/2020 aspirin chewable 81 mg tablet 1 dose, Starting 06/01/20 at 0954, Until Discontinued lidocaine 20 mg/mL (2 %) injection 1 dose, Starting 06/01/20 at 0913, Until Discontinued documented in this encounter Orders Medications Ordered That Might Not Have Count Last Ord ered Date First Ordered Date Been Administered aspirin chewable 81 mg tablet 1 06/01/2020 fentaNYL (DURAGESIC) patch 25 mcg 1 06/01/2020 fentaNYL (DURAGESIC) patch 75 mcg 1 06/01/2020 fentaNYL citrate (PF) 50 mcg/mL injection 1 2019 fluticasone propionate (FLOVENT) 110 2 06/01/2020 05/31/2020 mcg/actuation inhaler 2 Puff heparin 1,000 unit/mL injection 1 06/01/2020 lidocaine 20 mg/mL (2 %) injection 1 06/01/2020 midazolam (PF) (VERSED) 1 mg/mL injection 2 2019 nitroglycerin 100 mcg/mL syringe 1 06/01/2020 verapamiL (ISOPTIN) 2.5 mg/mL injection 1 06/01/20 20 acetaminophen (TYLENOL) tablet 650 mg 1 05/31/2020 albuterol (ACCUNEB) nebulizer solution 0 0.63 mg atorvastatin (LIPITOR) tablet 80 mg 1 05/31/2020 citalopram (CELEXA) tablet 40 mg 1 05/31/2020 clopidogreL (PLAVIX) tablet 75 mg 05/31/2020 DIAZepam (VALIUM) tablet 2 mg 1 05/31/2020 digoxin (LANOXIN) tablet 125 mcg 1 05/31/2020 finasteride (PROSCAR) tablet 5 mg 1 05/31/2020 gabapentin (NEURONTIN) capsule 600 mg 1 05/31/2020 heparin 1,000 unit/mL injection 2,000 1 05/31/2020 Units heparin 1,000 unit/mL injection 4,000 1 05/31/2020 Units heparin in 1/2 NS 25,000 unit/250 mL 05/31/2020 infusion lamoTRIgine (LAMICTAL) tablet 100 mg 05/31/2020 lisinopriL (PRINIVIL) tablet 5 mg 05/31/2020 metoprolol XL (TOPROL-XL) tablet 50 mg 0 nitroglycerin 400 mcg/ml in D5W 250 ml 0 infusion pantoprazole (PROTONIX) tablet 40 mg 05/31/2020 sodium chloride 0.9 % (flush) flush 3 mL 1 020 spironolactone (ALDACTONE) tablet 25 mg 1 05/31/20 20 tamsulosin (FLOMAX) capsule 0.4 mg 1 05/31/2020 traZODone (DESYREL) tablet 100 mg 05/31/2020 Procedures Count Last Ordered Date First Ordered Date ECG REPORT - SCANNED 4 06/04/2020 06/03/2020 Diet Count Last Ordered Date First Ordered Date DISCHARGE DIET 3 06/01/2020 Nursing Count Last Ordered Date First Ordered Date ACTIVITY INSTRUCTIONS 1 06/01/2020 PATIENT AT LOW RISK FOR VTE: RISK OF 1 06/01/2020 PHARMACOLOGIC PROPHYLAXIS OUTWEIG WOUND CARE INSTRUCTIONS 2 06/01/2020 VTE PHARMACOLOGIC PROPHYLAXIS CURRENTLY 1 05/31/20 20 ORDERED OR ON ALTERNATIVE THER Admission Count Last Ordered Date First Ordered Date ADMIT TO INPATIENT 1 05/31/2020 Discharge Count Last Ordered Date First Ordered Date DISCHARGE PATIENT 1 06/01/2020 Legal Count Last Ordered Date First Ordered Date MISCELLANEOUS DISCHARGE INSTRUCTIONS 2 06/01/2020 Case Request Count Last Ordered Date First Ordered Date CASE REQUEST BOX LOADER 1 06/01/2020 documented in this encounter Care Teams Gut Sorter Relationship Specialty Start Date End Date Aissatou Briggs NP PCP - General 05/31/[address] [place] [id number] documented as of this encounter
--- OUTSIDE RECORDS SUMMARY | 2022-08-15 01:42 | XMS_ITS | Encounter Summary ---
:1955 Author Organization [facility] Address [address] [place] [address] Care Team Providers Name Role Phone Randy Turner MD Primary Care Provider [phone] Aissatou Briggs NP Primary Care Provider Encounter Details Date Type Department Care Team Description 05/12/2020 Lab Requisition [facility] Outr Resulting Lab, Pathology & Laboratory Provider [facility] [address] [place] [address] Social History Tobacco Use Types [...] Date/Time Associated Diagnosis Comme nts COVID-19 TEST [facility] Today 05/12/2020 21:15 LAB PCR EDT COVID-19 TESTING Routine 05/12/2020 21:15 Results for this EDT procedure are i n the results section. documented in this encounter Results COVID-19 TEST [facility] PCR (05/12/2020 21:15 EDT) Specimen Swab - Entire nasopharynx (body structur e) Performing Organization Address [facility] Code Phon e Number [facility] [address] [place] [address] SERVICES COVID-19 TESTING (05/12/2020 21:15 EDT) COVID-19 rt-PCR Negative Negative [facility] Result Comment: [facility] This test has not been FDA [...] tions, patient history, and epidemiological informatio n. Performed on the [employer] [place] Fusion instrument Performing Lab [place] [facility] SERVICES Specimen Swab Performing Organization Address City/[facility]/ZIP Code Phon e Number [facility] [address] [place] [address] SERVICES documented in this encounter Visit Diagnoses Not on filedocumented in this encounter Additional Health Concerns Infection Onset Date Last Indicated Resolved Time R/O COVID-19 05/12/2020 05/12/2020 05/17/2020 22:16 EDT documented as of this encounter Care Teams Vendor Management Associate Relationship Specialty Start Date End Date Randy Turner MD PCP - General 06/21/09 05/30/20 [address] [place] [id number] Aissatou Briggs NP PCP - General 05/31/[address] [place] [id number] documented as of this encounter
--- OUTSIDE RECORDS SUMMARY | 2022-08-15 01:42 | XMS_ITS | Encounter Summary ---
:1955 Author Organization [facility] Address [address] [place] [address] Care Team Providers Name Role Phone Randy Turner MD Primary Care Provider [phone] Aissatou Briggs NP Primary Care Provider Encounter Details Date Type Department Care Team Description 04/07/2020 Lab Requisition [facility] Outr Resulting Lab, Pathology & Laboratory Provider [facility] [address] [place] [address] Social History Tobacco Use Types [...] Diagnosis Comme nts COVID-19 TEST [facility] Today 04/07/2020 20:05 LAB PCR EDT COVID-19 TESTING Routine 04/07/2020 20:05 Results for this EDT procedure are i n the results section. documented in this encounter Results COVID-19 TEST [facility] PCR (04/07/2020 20:05 EDT) Specimen Swab - Entire nasopharynx (body structur e) Performing Organization Address [facility] Phon e Number [facility] [address] [place] [address] SERVICES COVID-19 TESTING (04/07/2020 20:05 EDT) COVID-19 rt-PCR Negative Negative [facility] Result Comment: [facility] This test has not been FDA [...] and epidemiological informatio n. Performed on the [employer] [place] Fusion instrument Performing Lab [place] [facility] Lab [facility] SERVICES Specimen Swab - Entire nasopharynx (body structur e) Performing Organization Address [facility] Phon e Number [facility] [address] [place] [address] SERVICES documented in this encounter Visit Diagnoses Not on filedocumented in this encounter Additional Health Concerns Infection Onset Date Last Indicated Resolved Time R/O COVID-19 05/12/2020 05/12/2020 05/17/2020 22:16 EDT documented as of this encounter Care Teams Skating Carhop Relationship Specialty Start Date End Date Randy Turner MD PCP - General 06/21/09 05/30/20 [address] [place] [phone] Aissatou Briggs NP PCP - General 05/31/[address] [place] [id number] documented as of this encounter
--- OUTSIDE RECORDS SUMMARY | 2022-08-15 01:42 | XMS_ITS | Encounter Summary ---
:1955 Author Organization [facility] Address [address] [place] [address] Care Team Providers Name Role Phone Aissatou Briggs TRUCK SERVICE TECHNICIAN Primary Care Provider Encounter Details Date Type Department Care Team Description 06/20/2020 Lab Requisition [facility] Outr Resulting Lab, Pathology & Laboratory Provider [facility] [address] [place] [address] Social History Tobacco Use Types [...] / COVID-19? documented as of this encounter Functional Status [...] Diagnosis Comme nts COVID-19 TEST [facility] Today 06/20/2020 16:00 LAB PCR EDT COVID-19 TESTING Routine 06/20/2020 16:00 Results for this EDT procedure are i n the results section. documented in this encounter Results COVID-19 TEST [facility] PCR (06/20/2020 16:00 EDT) Specimen Swab - Entire nasopharynx (body structur e) Performing Organization Address City/[facility] Phon e Number [facility] [address] [place] [address] SERVICES COVID-19 TESTING (06/20/2020 16:00 EDT) COVID-19 rt-PCR Negative Negative [facility] Result Comment: [facility] This test has not been FDA [...] and epidemiological informatio n. Performed on the [employer] Fusion instrument Performing Lab [place] [facility] Lab [facility] SERVICES Specimen Swab Performing Organization Address City/[facility] Phon e Number [facility] [address] [place] [address] SERVICES documented in this encounter Visit Diagnoses Not on filedocumented in this encounter Care Teams Bike Shop Manager Relationship Specialty Start Date End Date Aissatou Briggs, TRUCK SERVICE TECHNICIAN PCP - General 05/31/20 [address] [place] [address] documented as of this encounter
--- OUTSIDE RECORDS SUMMARY | 2022-08-15 01:42 | XMS_ITS | Encounter Summary ---
:1955 Author Organization [facility] Address [address] [place] [address] Care Team Providers Name Role Phone Aissatou Briggs GUN SYNCHRONIZER Primary Care Provider Encounter Details Date Type Department Care Team Description 08/16/2021 Lab Requisition [facility] Outr Resulting Lab, Pathology & Laboratory Provider [facility] [address] [place] [address] Social History Tobacco Use Types [...] Name Priority Date/Time Associated Diagnosis Comme nts PROLACTIN Routine 08/16/2021 2:55 EDT Results for this procedure are i n the results section . documented in this encounter Results PROLACTIN (08/16/2021 2:55 EDT) Pathologist Sig nature Prolactin 6.9 2.1 - 17.7 ng/mL [facility] SERVICES Specimen Blood - Venous blood (substance) Performing Organization Address City/State/ZIP Code Phon e Number [facility] [address] [place] [address] SERVICES documented in this encounter Visit Diagnoses Not on filedocumented in this encounter Care Teams Cold Type Artist Relationship Specialty Start Date End Date Aissatou Briggs, TONE PCP - General 05/31/[address] [place] [id number] documented as of this encounter
--- OUTSIDE RECORDS SUMMARY | 2022-08-15 01:42 | XMS_ITS | Encounter Summary ---
:1955 Author Organization [facility] Address [address] [place] [address] Care Team Providers Name Role Phone Aissatou Briggs EQUIPMENT APPLICATION SPECIALIST Primary Care Provider Encounter Details Date Type Department Care Team Description 11/05/2021 Lab Requisition [facility] Outr Resulting Lab, Pathology & Laboratory Provider [facility] [address] [place] [address] Social History Tobacco Use Types [...] Date/Time Associated Diagnosis Comme nts COVID-19 TEST [facility] Today 11/05/2021 14:40 LAB PCR EST COVID-19 TESTING Routine 11/05/2021 14:40 Results for this EST procedure are i n the results section. documented in this encounter Results COVID-19 TEST [facility] PCR (11/05/2021 14:40 EST) Specimen Swab Performing Organization Address City/[facility] Phon e Number [facility] [address] [place] [address] SERVICES COVID-19 TESTING (11/05/2021 14:40 EST) COVID-19 rt-PCR Negative Negative [facility] Result Comment: [facility] [...] tions, patient history, and epidemiological informatio n. Testing was performed using the pedro [place]uis SARS-CoV-2 assay ([employer] on the Pedro [place] 6800 System Performing Lab [place] [address] [facility] Lab [facility] SERVICES Specimen Swab Performing Organization Address City/[facility] Code Phon e Number [facility] [address] [place] [address] SERVICES documented in this encounter Visit Diagnoses Not on filedocumented in this encounter Care Teams Document Manager Relationship Specialty Start Date End Date Aissatou Briggs, TONE PCP - General 05/31/[address] [place] [id number] documented as of this encounter
--- OUTSIDE RECORDS SUMMARY | 2022-08-15 01:42 | XMS_ITS | Encounter Summary ---
:1955 Author Organization [facility] Address [address] [place] [address] Care Team Providers Name Role Phone Randy Turner MD Primary Care Provider [phone] Aissatou Briggs NP Primary Care Provider Encounter Details Date Type Department Care Team Description 04/13/2020 Lab Requisition [facility] Outr Resulting Lab, Pathology & Laboratory Provider [facility] [address] [place] [address] Social History Tobacco Use Types [...] Diagnosis Comme nts COVID-19 TEST [facility] Today 04/12/2020 21:08 LAB PCR EDT COVID-19 TESTING Routine 04/12/2020 21:08 Results for this EDT procedure are i n the results section. documented in this encounter Results COVID-19 TEST [facility] PCR (04/12/2020 21:08 EDT) Specimen Swab - Entire nasopharynx (body structur e) Performing Organization Address [facility] Code Phon e Number [facility] [address] [place] [address] SERVICES COVID-19 TESTING (04/12/2020 21:08 EDT) COVID-19 rt-PCR Negative Negative [facility] Result Comment: [facility] This test has not been FDA [...] and epidemiological informatio n. Performed on the [employer] [place] Fusion instrument Performing Lab [place] [facility] Lab [facility] SERVICES Specimen Swab Performing Organization Address City/[facility]/ZIP Code Phon e Number [facility] [address] [place] [address] SERVICES documented in this encounter Visit Diagnoses Not on filedocumented in this encounter Additional Health Concerns Infection Onset Date Last Indicated Resolved Time R/O COVID-19 05/12/2020 05/12/2020 05/17/2020 22:16 EDT documented as of this encounter Care Teams Pattern Data Operator Relationship Specialty Start Date End Date Randy Turner MD PCP - General 06/21/09 05/30/20 [address] [place] [phone] Aissatou Briggs NP PCP - General 05/31/[address] [place] [phone] documented as of this encounter
--- OUTSIDE RECORDS SUMMARY | 2022-08-15 01:42 | XMS_ITS | Encounter Summary ---
:1955 Author Organization [facility] Address [address] [place] [address] Care Team Providers Name Role Phone Aissatou Briggs EARTH BORING MACHINE OPERATOR Primary Care Provider Encounter Details Date Type Department Care Team Description 05/31/2020 Travel Social History Tobacco Use Types Packs/Day Years [...] Not on filedocumented as of this encounter Visit Diagnoses Not on filedocumented in this encounter Care Teams Chicken And Fish Cleaner Relationship Specialty Start Date End Date Aissatou Briggs, EARTH BORING MACHINE OPERATOR PCP - General 05/31/20 [address] [place] [address] documented as of this encounter
--- OUTSIDE RECORDS SUMMARY | 2022-08-15 01:42 | XMS_ITS | Encounter Summary ---
:1955 Author Organization [facility] Address [address] [place] [address] Care Team Providers Name Role Phone Aissatou Briggs CONSTRUCTION SUPERVISOR Primary Care Provider Reason for Referral Follow Up (3 - 10 Business Days) - Authorization Not Required Specialty Diagnoses / Procedures Referred By Contact Refer red To Contact Diagnoses Unstable angina ([facility]) ([facility]) Duane Rodriguez MD Vitale, Joyce A, CONSTRUCTION SUPERVISOR [address] [place] [address] [id number] [phone] Referral ID Status Reason Start Expiration Visits Visits Date Date Requested Authorized [id number] Authorization Continuity of 06/01/2020 1 1 Not Required Care Question Answer Reason for Request: F/u visit after [facility] Reason for Visit Auth/Cert Specialty Diagnoses / Procedures Referred By Contact Refer red To Contact Diagnoses ACS (acute coronary syndrome) ([facility]) ([facility]) Chest Pain Referral ID Status Reason Start Date Expiration Date Visits Requ ested Visits Authorized [id number] 1 1 Encounter Details Date Type Department Care Team Description 05/31/2020 - [facility] Anthony Everett MD [address] [place] [address] [place] [phone] ACS (acute coronary syndrome) ([facility]); 06/01/2020 Encounter Cardiac Unit Edgar Gilliland MD [address] [facility], [place], [address] [place] [address] Unstable angina ([facility]); [address] Mild coronary artery disease ; [place], [place] Other specifi ed disorders of arteries and arterioles ([facility]); [id number] Stented coronary artery [phone] Social History Tobacco Use Types Packs/Day Years [...] Blood Pressure 86/65 06/01/2020 1709 EDT Pulse - - Temperature 36.4 ??C [...] HFrEF (heart failure with reduced ejection fraction) ([facility]) 06/01/2020 Resolved Hospital Problems Diagnosis Date Noted Date Resolved ??? *Unstable angina ([facility]) 06/01/2020 06/01/2020 ??? ACS (acute coronary syndrome) ([facility]) 05/31/2020 06/01/2020 Principal Procedure: LHC Date: [...] GERD who presents as a transfer from [facility] with concern for unstable angina. Workup there [...] askedto make an appointment with his regular sketch artist at [facility] within a week. Allergies and Immunizations Allergies [...] Procedure Component Value Units Date/Time Hemoglobin A1c [[id number]] Collected: 05/31/20 230 Lab Status: In process Specimen: Blood, Venous Updated: 05/31/202357 Last Lab Results at Discharge BUN: Lab [...] (L) 06/01/2020 Protein: No results found for: [id number] Lipid Profile: Lab Results Component Value Date CHOL 125 05/31/2020 TRIG 218 05/31/2020 HDL 40 05/31/2020 LDLBASE 41 05/31/2020 CHOLHDL 3.1 05/31/2020 Discharge Follow Up Follow-up appointments and procedures Amb Consult/Follow Up Primary Care Physician Reason for Request: F/u visit after [facility] Authorizing Provider: Duane Rodriguez MD Appointments We Recommend but have not been Scheduled Follow up with regular Dressmaker Helper with [facility] within a week. Latasha Richard DO 06/01/2020 [...] Code Departure Means Destination Home or Self Senior Care documented in this encounter Progress Notes Latasha [...] Latasha Richard DO Family Medicine, PGY1 Pager #[phone] Pamela Huff - 06/01/2020 0052 EDT Fellow addendum to resident H and P 64 yr old male with pmh of CAD s/p PCI to Lcx in 2010 (repeat LHC in 2016 non- obstructive), afib, HTN, COPD, HLD, CVA, TBI who is presenting from [facility] with complains of chest pain that started [...] Q wave in inferior leads (present on 2017 EKG) and ptwas transferred to [facility] for further management of unstable angina. Pt came on heparin and nitro gtt. On arrival, pts vitals stable. Not having any chest pain. Trop negative. EKG with NSR, very mild ST depression in V3-V4, Qwave in inferior leads. Cardiac exam RRR, no m/r/g. Lungs CTAB, no LE edema or JVD. TTE at [facility] in 04/20 shwoing EF of 30-35%. The [...] HLD, CVA, TBI who is presenting from [facility] with complains of chest pain that started [...] of 48 hours after the procedure. Pamela Shultz MD Handle Attacher PGY-4 Pager [phone] 06/01/20 3:15 Patient start with attending physician Dr. Everett. rville Rodriguez RT - 06/01/2020 0027 EDT Respiratory Consult/Progress [...] history of COPD and STEMI admitted to [facility] as a transfer from [facility] with unstable angina. Patient takes BID Flovent [...] H&P Notes Edgar Gilliland MD - 05/31/2020 4693 EDT Images from the original note were not included. Cardiology History and Physical Admite Date: 05/31/2020 Date of Service: 05/31/2020 LOS: 0 days Service Date: 05/31/2020 Admit Date: 05/31/2020 22:06 Primary Care Provider: Aissatou Briggs Chief Complaint: Chest pain HPI Junaid Arias is a 64 y.o. male with a past history of STEMI in 2010 with PCI to the distal LCx, CAD with [facility] in 2016 showing no significant disease, HFrEF (35% in April 2020), atrial flutter (on apixaban), HLD, TBI with resultant seizures, depression, COPD (2L NC occasionally at home), and GERD who presents as a transfer from [facility] with unstable angina. He states at 0930 this morning he developed intense left sided chest pain that radiated to his arm and back. He took two SL nitroglycerin tabs with some relief, but called 911 after the pain returned. He was taken to [facility] and was found to have some possible ST depressions with a negative troponin x3.[facility] initially accepted the transfer, but due to the non-emergent nature they recommended transfer to another facility. [facility] started a nitroglycerin gtt and a heparin gtt. They did not load with clopidogrel as he was taking 75 mg daily CASKET UPHOLSTERER. He also has a stated aspirin allergy and was not loaded with aspirin. A D dimer was 724 so they obtained a CTA that was negative for a PE. On arrival to [facility] he is hemodynamically stable, bradycardic to the 50s, and satting well, placed on 3L NC for comfort per the patient. He is in no acute distress and understands the plan for possibleLHC vs stress test in the morning. He lives with his son in [place] and his son would make decisions for [...] in HPI. Prior Cardiac History: TTE at [facility] in care everywhere from April 2020 - EF of 35%, global left ventricular systolic functionis moderately reduced. Mild aortic and tricuspid valve regurg [facility] 2016 from [facility] - Cardiac Cath 09/18/16: Hemodynamics: Left Heart [...] MCHC 33.8 PLT 128* BMP: Recent Labs 05/31/20 2300 NA 138 K 4.1 CL 107 CO2 23 BUN 16 CREATININE 0.83 MG 2.3 Cardiac Markers: Recent Labs 05/31/202299 TROPONINI <0.034 ECG: Imaging/other studies: CTA from [facility] - negative for PE, but showed minimal ground glass appearance of the lungs suggestive of mild edema vs infection Assessment Junaid Arias is a 64 y.o. male with a history significant for STEMI in 2011 with PCI to the distal LCx, CAD with LHC in 2016 showing no significant disease, HFrEF (35% in April 2020), atrial flutter (on apixaban), HLD, TBI with resultant seizures, depression, COPD (2L NC occasionally at home), and GERD who presents as a transfer from [facility] with unstable angina. Plan Unstable Angina - troponin negative x3 at [facility], he was not loaded with aspirin as he is allergic andhe was already on clopidogrel so he was not loaded with that either - admit with telemetry monitoring class I - trend troponin q8h until peak - CASKET UPHOLSTERER clopidogrel 75mg daily - heparin gtt - continue nitro gtt - supplemental O2 if needed - CASKET UPHOLSTERER atorvastatin 80mg daily - NPO at midnight for potential intervention ([facility]) or other testing if needed - ordered lipid profile and A1c - TTE ordered Atrial flutter - CASKET UPHOLSTERER metoprolol 50 mg daily - CASKET UPHOLSTERER digoxin 125 mcg daily - hold CASKET UPHOLSTERER apixaban - heparin gtt HFrEF - CASKET UPHOLSTERER metoprolol 50 mg daily, lisinopril 5 mg daily, and spironolactone 25 mg daily - hold CASKET UPHOLSTERER isosorbide dinitrate 20 mg BID while on the nitro gtt History of seizures - CASKET UPHOLSTERER diazepam 2 mg BID and lamotrigine 100 mg BID COPD - CASKET UPHOLSTERER fluticasone BID - CASKET UPHOLSTERER albuterol q6h PRN - wean O2 as tolerated, states he occasionally uses 2L with activity at home GERD - CASKET UPHOLSTERER pantoprazole 40 mg daily BPH - CASKET UPHOLSTERER finasteride 5 mg daily and tamsulosin 0.4 mg daily Depression - CASKET UPHOLSTERER citalopram 40 mg daily - CASKET UPHOLSTERER trazodone 100 mg QHS PRN Chronic pain - CASKET UPHOLSTERER gabapentin 600 mg QID - unclear if he is still taking the hydrocodone, recommend med rec with pharmacy in the AM Mild thrombocytopenia - likely chronic and medication related - daily CBC Diet: NPO for possible LHC vs stress VTE Prophylaxis: heparin gtt Consults: none CODE STATUS: Full, not discussed Prognosis/Disposition: Stable, uncertain dispo at this time, pending [facility] Admission Status Inpatient. Anticipated duration of hospitalization [...] MD - 06/01/2020 1035 EDT Dear Aissatou Briggs CONSTRUCTION SUPERVISOR [facility] As you know he is a complex gentleman with a history of remote circumflex PCI at [facility]. He has some disabilities and presented in [facility] with recurrent chest pain. Troponins were negative and EKG showed nonspecific changes. Typically [facility] did not have capacity for the patient. [...] artery Procedure: He was brought to [facility] Cardiac [facility] for the procedure: [...] d/c later today Anthony Everett MD PagerNumber: [phone] 06/01/2020 10:35 documented in this encounter Miscellaneous Notes Plan of Care - Mary Kelley RN - 06/01/2020 2004 EDT Nursing Discharge Note D: Pt s/p cath with no interventions. RRA site CDI. Patient noted with discharge orders to home [facility]. A: Prescriptions e-scripted. Reviewed discharge instructions and prescriptions with Patient. IV d/c'd. Belongings collected and sent home with patient. Pt instructed to restart eliquis tomorrow per . R: Patient verbalized understanding of discharge instructions [...] Referral Routine Unstable angina Ordered: PRIMARY CARE ([facility]) 06/01/2020 PHYSICIAN documented as of this [...] HEART CATH (06/01/2020 10:34 EDT) Specimen Narrative [facility] - 06/02/2020 9:52 EDT Cardiology [address] [place] [address] Catheterization Laboratory Study Patient: Junaid Arias ? Study Date: ? 06/01/2020 ? Accession #: ?[id number] : ? 1955 Referring: Diagnostic Attending: ??Anthony Everett Interventional Attending: ?? Marylu Everett Diagnostic Fellow: Spencer Schofield MD ATTESTATION: I, Dr. Spencer Schofield was the initial auth or of this report. Dr. Anthony Everett was present and supervising for th e entire procedure. I, Dr. Anthony Everett [...] Everett MD 2020-06-02 09:52 Performing Organization Address [facility]/ZIP Code Phon e Number [facility] MAGNESIUM (06/01/2020 6:05 EDT) Pathologist Sig nature Magnesium 2.2 1.7 - 2.8 mg/dL [facility] TORY SERVICES Specimen Blood - Venous blood (substance) Performing Organization Address [facility] Phon e [facility] LABORATORY [address] [place] [address] SERVICES POTASSIUM (06/01/2020 6:05 EDT) Pathologist Sig nature Potassium 3.9 3.5 - 5.0 mEq/L [facility] Specimen Blood - Venous blood (substance) Performing Organization Address [facility] Phon e [facility] LABORATORY [address] [place] [address] SERVICES CREATININE (06/01/2020 6:05 EDT) Creatinine 0.76 0.66 - 1.25 [facility] mg/dL LABORATORY SERVICES eGFR 96Comment: eGFR >60 [facility] calculated using mL/min/1.73m2 LABORATORY SERVICES CKD-EPI equation for non- Americans. Multiply eGFR by 1.16 for patients. Specimen Blood - Venous blood (substance) Performing Organization Address [facility]/ZIP Code Phon e [facility] LABORATORY [address] [place] [address] SERVICES HEPARIN LEVEL - UNFRACTIONATED HEPARIN (06/01/2020 6:05 EDT) Heparin 0.89Comment: Therapeutic [facility] Unfractionated Range: 0.30 - CENTER heparin therapeutic [...] - Venous blood (substance) Performing Organization Address [facility] Phon e Number [facility] LABOR[facility]ORY [address] [place] [address] SERVICES TROPONIN I (06/01/2020 6:05 EDT) Pathologist Sig nature Troponin I (ng/mL) <0.034 <0.034 ng/mL [facility] LABORAT[facility] SERVICES Specimen Blood - Venous blood (substance) Narrative [facility] LABORAT[facility] SERVICES - 06/01/2020 6:51 EDT The results of this assay can be falsely lowered due to the consumption of Biotin. Performing Organization Address [facility] Phon e Number [facility] LABORATORY [address] [place] [address] SERVICES (ABNORMAL) COMPLETE BLOOD COUNT (06/01/2020 6:04 EDT) Pathologist Sig nature WBC 9.81 4.00 - 10.40 K/cmm [facility] LABORATORY SERVICES RBC 5.18 4.36 - 5.78 M/cmm [facility] LABORAT[facility] SERVICES Hemoglobin 14.5 13.8 - 17.3 gm/dL [facility] LABORAT[facility] SERVICES HCT 44.3 39.5 - 50.2 % [facility] LABORAT[facility] SERVICES MCV 86 81 - 95 fl [facility] LAB[facility]AT[facility] SERVICES MCH 28.0 27.6 - 33.0 pg [facility] LABORATORY SERVICES MCHC 32.7 (L) 32.8 - 36.4 gm/dL [facility] LABORATORY SERVICES RDW-CV 14.4 (H) <14.2 % [facility] LABORATORY SERVICES RDW-SD 44.1 <46.0 fl [facility] LABORATORY SERVICES PLT 125 (L) 141 - 377 K/cmm [facility] LABORATORY SERVICES MPV 10.5 9.5 - 12.7 fl [facility] LABORAT[facility] SERVICES Specimen Blood - Venous blood (substance) Performing Organization Address [facility] Phon e Number [facility] [address] [place] [address] SERVICES [facility] 12-LEAD (05/31/2020 23:03 EDT) Specimen Narrative [facility] - 06/01/2020 7:52 EDT ? [facility] ? Test Date: ?2020-05-31 Pat Name: ? JUNAID ARIAS ?Department: ?? Jones 4 ? Room: ? [id number] Gender: ? Male ? Chilling Hood Operator: ?? : ?1955 ? Requested By: RAMON HARRISON Order Number: [id number] ? Reading MD: ?? ANTHONY EVERETT MD ? Measurements Intervals ?[place] ? Rate: ? 51 ? P: ?22 DE: ? 152 ?QRS: ?37 QRSD: ? 88 [...] findings in this report. Electronically Signed On 0 7:52:55 EDT by ANTHONY EVERETT MD. Procedure Note Anthony Everett MD - 06/01/2020 [facility] r Test Date: 2020-05-31 Pat Name: JUNAID ARIAS Department: [facility] 4 Room: [facility] Gender: Male Chilling Hood Operator: : 1955 Requested By: RAMON Noriega Order Number: [id number] Alfonso MD: Nilton EVERETT MD Measurements Intervals [place] Rate: 51 P: 22 DE: 152 QRS: 37 QRSD: 88 T: 6 QT: 464 QTc: 429 Interpretive Statements SINUS BRADYCARDIA POSSIBLE INFERIOR MYOCARDIAL INFARCTION, PROBABLY OLD Nonspecific ST and T wave abnormaliities Compared to ECG 05/31/2020 22:25:27 Sinus rhythm no longer present Ventricular premature complex(es) no ragini malaika present I reviewed the tracing and have either a greed or edited the findings in this report. Electronically Signed On 0 7:52:55 EDT by ANTHONY EVERETT MD. Performing Organization Address City/State/ZIP Code Phon e Number [facility] EKG LIPID PROFILE (INCLUDES CHOLESTEROL, TRIGLYCERIDES, HDL, LDL) (05/31/2020 23:00 EDT) Cholesterol 125 See Note [facility] Comment: mg/dL [facility]ENTER LABORATORY Acceptable: ?<200 mg/dL SERVICES Borderline High: 200-239 mg/dL High: ?> or = 240 mg/dL HDL 40 See Note [facility] Comment: mg/dL [facility] LABORATORY Low: ? <40 mg/dL SERVICES Normal: ??40-60 mg/dL High: ?>60 mg/dL LDL, Calculated 41 See Note [facility] Comment: mg/dL [facility] LABORATORY Optimal: ? <100 mg/dL SERVICES Near Optimal: ?100-129 mg/dL Borderline High: 130-159 mg/dL High: ?160-189 mg/dL Very High: ? > or = 190 mg/dL Triglyceride 218 See Note [facility] Comment: mg/dL [facility] LABORATORY Normal: ? <150 mg/dL SERVICE S Borderline High: ??150 - 199 mg/dL High: ? 200 - 499 mg/dL Very High: ?> or = 500 mg/dL Chol/HDL Ratio 3.1 See Note [facility] Comment: CENTER LABORATORY SERVICES No reference range has been established for CHOL/HDL r atio. Non HDL Cholesterol 85 See Note [facility] Comment: mg/dL [facility] LABORATORY Desirable: ?<130 mg/dL SERVICES Borderline High: ??130-159 mg/dL High: ? 160-189 mg/dL Very High: ?> or = 190 mg/dL Specimen Blood - Venous blood (substance) Performing Organization Address City/State/ZIP Code Phon e Number [facility] LABORATORY [address] [place] [address] SERVICES HEMOGLOBIN A1C (05/31/2020 23:00 EDT) Hemoglobin A1c 5.5 <5.7 % [facility] Comment: LABORATORY SERVICES Glycemic Status References: Normal: [...] Est Avg Glucose 111Comment: The eAG mg/dL [facility] represents the A1c LABORATORY SERVICES result expressed as average glucose in mg/dL. Specimen Blood - Venous blood (substance) Performing Organization Address [facility] Phon e Number [facility] LABORATORY [address] [place] [phone] SERVICES TROPONIN I (05/31/2020 23:00 EDT) Pathologist Sig nature Troponin I (ng/mL) <0.034 <0.034 ng/mL [facility] LABORATORY SERVICES Specimen Blood - Venous blood (substance) Narrative [facility] LAB[facility] SERVICES - 05/31/2020 23:36 EDT The results of this assay can be falsely lowered due to the consumption of Biotin. Performing Organization Address [facility] Phon e Number [facility]OR[facility] [address] [place] [address] SERVICES BUN (05/31/2020 23:00 EDT) Pathologist Sig nature BUN 16 10 - 26 mg/dL [facility] LABORATO RY SERVICES Specimen Blood - Venous blood (substance) Performing Organization Address [facility] Phon e Number [facility] [address] [place] [address] SERVICES MAGNESIUM (05/31/2020 23:00 EDT) Pathologist Sig nature Magnesium 2.3 1.7 - 2.8 mg/dL [facility] LABORA TORY SERVICES Specimen Blood - Venous blood (substance) Performing Organization Address [facility]/ZIP Code Phon e Number [facility] [address] [place] [address] SERVICES CREATININE (05/31/2020 23:00 EDT) Creatinine 0.83 0.66 - 1.25 [facility] mg/dL LABORATORY SERVICES eGFR 93Comment: eGFR >60 [facility] calculated using mL/min/1.73m2 LABORATORY SERVICES CKD-EPI equation for non- Americans. Multiply eGFR by 1.16 for patients. Specimen Blood - Venous blood (substance) Performing Organization Address City/[facility]/ZIP Code Phon e Number [facility] [address] [place] [address] SERVICES ELECTROLYTES (05/31/2020 23:00 EDT) Pathologist Sig nature Sodium 138 136 - 145 mEq/L [facility] LABORA TORY SERVICES Potassium 4.1 3.5 - 5.0 mEq/L [facility] LABORA TORY SERVICES Chloride 107 96 - 110 mEq/L [facility] LABORAT ORY SERVICES CO2 Total 23 22 - 32 mEq/L [facility] LABORATO RY SERVICES Specimen Blood - Venous blood (substance) Performing Organization Address [facility] Phon e Number [facility] [address] [place] [address] SERVICES (ABNORMAL) COMPLETE BLOOD COUNT (05/31/2020 23:00 EDT) Pathologist Sig nature WBC 9.63 4.00 - 10.40 K/cmm [facility] LABORATORY SERVICES RBC 4.95 4.36 - 5.78 M/cmm [facility] LABORAT[facility] SERVICES Hemoglobin 14.2 13.8 - 17.3 gm/dL [facility] LABORAT[facility] SERVICES HCT 42.0 39.5 - 50.2 % [facility] LABORATORY SERVICES MCV 85 81 - 95 fl [facility] LAB[facility]AT[facility] SERVICES MCH 28.7 27.6 - 33.0 pg [facility] LAB[facility]AT[facility] SERVICES MCHC 33.8 32.8 - 36.4 gm/dL [facility] LABORATORY SERVICES RDW-CV 14.6 (H) <14.2 % [facility] LABORAT[facility] SERVICES RDW-SD 44.5 <46.0 fl [facility] LABORATORY SERVICES PLT 128 (L) 141 - 377 K/cmm [facility] LABORATORY SERVICES MPV 10.3 9.5 - 12.7 fl [facility] LAB[facility] SERVICES Specimen Blood - Venous blood (substance) Performing Organization Address City/State/ZIP Code Phon e Number [facility]OR[facility] [address] [place] [address] SERVICES EKG 12-LEAD (05/31/2020 22:25 EDT) Specimen Narrative [facility] EK - 06/01/2020 7:53 EDT ? [facility] ? Test Date: ?2020-05-31 Pat Name: ? JUNAID ARIAS ?Department: ?? [facility] 4 ? Room: ? [id number] Gender: ? Male ? Chilling Hood Operator: ?? [id number] : ?1955 ? Requested By: MARGUERITE Underwood Order Number: [id number] ? Reading : ?? ANTHONY EVERETT MD ? Measurements Intervals ?[place] ? Rate: ? 65 ? P: ?71 DE: ? 148 ?QRS: ?42 QRSD: ? 94 [...] findings in this report. Electronically Signed On 0 7:53:09 EDT by ANTHONY EVERETT MD. Procedure Note Anthony Everett MD - 06/01/2020 [facility] r Test Date: 2020-05-31 Pat Name: JUNAID ARIAS Department: [facility] 4 Room: [id number] Gender: Male Chilling Hood Operator: [id number] : 1955 Requested By: MARGUERITE Underwood Order Number: [id number] Reading MD: Nilton EVERETT MD Measurements Intervals [place] Rate: 65 P: 71 DE: 148 QRS: 42 QRSD: 94 T: 2 [...] Organization Address City/State/ZIP Code Phon e Number [facility] EKG documented in this encounter Visit Diagnoses Diagnosis Unstable angina ([facility]) ([facility]) - Primar y Intermediate coronary syndrome ACS (acute coronary syndrome) ([facility] ([facility]) Intermediate coronary syndrome Mild coronary artery disease Other specified disorders of arteries an d arterioles ([facility]) Other specified disorders of arteries an d arterioles Stented coronary artery Postsurgical percutaneous transluminal c oronary angioplasty status HFrEF (heart failure with reduced ejecti on fraction) ([facility]) ([facility]) Heart failure, unspecified documented in this encounter Admitting Diagnoses Diagnosis ACS (acute coronary syndrome) ([facility]) ([facility]) Intermediate coronary syndrome documented in this encounter Administered Medications Inactive Administered Medications - up to 3 most recent administrations Medication Order MAR Action Action Date Dose Rate Site aspirin chewable 81 mg tablet 1 dose, Starting on 06/01/20 at 0954, Until Sat at 2204 atorvastatin (LIPITOR) tablet 80 mg Given 06/01/2020 [...] modification) on 06/01/20 at 1215, Until Discontinued finasteride (PROSCAR) tablet 5 mg Given 06/01/2020 9:11 EDT 5 mg 5 mg, oral, DAILY, First dose on 06/01/20 at 0900, Until Discontinued, Routine fluticasone propionate (FLOVENT) 110 mcg /actuation inhaler 2 Puff 2 Puff, inhalation, 2 TIMES DAILY (09 & 2100), First dose (after last modification) on 06/01/20 at 0900, Until Discontinue d, Routine gabapentin (NEURONTIN) capsule 600 mg Given 06/01/2020 18:02 EDT 600 mg 600 mg, oral, 4 TIMES DAILY, First dose on 06/01/20 at 0000, Until Discontinued, Routine Given 06/01/2020 13:12 EDT 600 mg Given 06/01/2020 9:03 EDT 600 mg heparin in / NS 25,000 Rate Change 06/01/2020 7:22 EDT 13 Units/ kg/hr 7.4 mL/hr unit/250 mL infusion 13 Units/kg/hr ? 56.7 kg Adjusted weight (7.371 mL/hr, rounded to 7.4 mL/hr), intravenous, at 7.4 mL/hr, CONTINUOUS, Starting on Wed05/31/20 at 2300, Until 06/01/20 at 1037, Routine New Bag 05/31/2020 23:04 EDT 15 Units/kg/hr 8.5 mL/hr lamoTRIgine (LAMICTAL) tablet 100 mg Given 06/01/2020 [...] on 06/01/20 at 0900, Until Discontinued, Routine nitroglycerin 400 mcg/ml in Rate Documented 06/01/2020 7:22 EDT 5 m cg/min 0.8 mL/hr D5W 250 ml infusion 5 mcg/min (0.75 mL/hr, rounded to 0.8 mL/hr), intravenous, at 0.8 mL/hr, CONTINUOUS, Starting on Wed05/31/20 at 2300, Until 06/01/20 at 1037, Routine New Bag 05/31/2020 23:01 EDT 5 mcg/min 0.8 mL/hr pantoprazole (PROTONIX) tablet 40 mg Given 06/01/2020 [...] 0903 (Given - Provider: Maxx House RN)0958 (DEC Hold - Provider: User Epic - Reason: Patient off unit)1051 (DEC Unhold - Provider: User Epic) 80 mg, oral, DAILY, First dose on 06/01/20 at 0900, Until Discontinued, Routine citalopram (CELEXA) tablet 40 mg 09 (Given - Provider: Maxx House RN)0958 (DEC Hold - Provider: User Epic - Reason: Patient off unit)1051 ([facility] Unhold - Provider: User Epic) 40 mg, oral, DAILY, First dose on 06/01/20 at 0900, Until Discontinued, Routine clopidogreL (PLAVIX) tablet 75 mg 0903 (Given - Provider: Maxx House RN)0958 ([facility] Hold - Provider: User Epic - Reason: Patient off unit)1051 ([facility] Unhold - Provider: User Epic) 75 mg, oral, DAILY, First dose on 06/01/20 at 0900, Until Discontinued, Routine DIAZepam (VALIUM) tablet 2 mg 00 39 (Given - Provider: Blessing Cortez RN)0903 (Given - Provider: Maxx House RN)0958 ([facility] Hold - Provider: User Epic - Reason: Patient off unit)1051 ([facility] Unhold - Provider: User Epic) 2 mg, oral, 2 TIMES DAILY, First dose on 06/01/20 at 0000, Until Discontinued, Routine 2100 (Canceled Entry - Provider: Batch Job User Admin - Comment: Automatically canceled at discontinue of medication order) digoxin (LANOXIN) tablet 125 mcg 0903 (Given - Provider: Maxx House RN)0958 ([facility] Hold - Provider: User Epic - Reason: Patient off unit)1051 ([facility] Unhold - Provider: User Epic) 125 mcg, oral, DAILY, First dose on 06/01/20 at 0900, Until Discontinued, Routine fentaNYL (DURAGESIC) patch 75 mcg 1312 (Patch Applied - Provider: Maxx House RN) 75 mcg, transdermal, EVERY 72 HOURS, Fir st dose on 06/01/20 at 1215, Until Discontinued finasteride (PROSCAR) tablet 5 mg 0911 (Given - Provider: Maxx House RN)0958 ([facility] Hold - Provider: User Epic - Reason: Patient off unit)1051 ([facility] Unhold - Provider: User Epic) 5 mg, oral, DAILY, First dose on Sat 06/01 at 0900, Until Discontinued, Routine fluticasone propionate (FLOVENT) 110 mcg/actuation inhaler 2 Puf f 0913 (Not Given - Provider: Maxx House RN - Reason: Patient/family refused)0958 ([facility] Hold - Provider: User Epic - Reason: [...] off unit)1051 (DEC Unhold - Provider: User Epic)1312 (Gi sakina [...] medication order) lisinopriL (PRINIVIL) tablet 5 mg 09 (Given - Provider: Maxx House RN)0958 (DEC Hold - Provider: User Epic - Reason: Patient off unit)1051 ([facility] Unhold - Provider: User Epic) 5 mg, oral, DAILY, First dose on Sat 06/01 at 0900, Until Discontinued, Routine metoprolol XL (TOPROL-XL) tablet 50 mg 0903 (Given - Provider: Maxx House RN)0958 (DEC Hold - Provider: User Epic - Reason: Patient off unit)1051 (DEC Unhold - Provider: User Epic) 50 mg, oral, DAILY, First dose on 06/01/20 at 0900, Until Discontinued, Routine pantoprazole (PROTONIX) tablet 40 mg 0903 (Given - Provider: Maxx House RN)0958 ([facility] Hold - Provider: User Epic - Reason: Patient off unit)1051 ([facility] Unhold - Provider: User Epic) 40 mg, oral, DAILY, First dose on 06/01/20 at 0900, Until Discontinued, Routine sodium chloride 0.9 % (flush) flush 3 mL 2306 (Given - Provider: Blessing Cortez RN) 0905 (Given - Provider: Maxx lujan RN)0958 ([facility] Hold - Provider: User Epic - Reason: Patient off unit)1051 ([facility] Unhold - Provider: User Epic)1740 (Given - Provider: Maxx House RN) 3 mL, intravenous, EVERY 8 HOURS, First dose on 06/01/20 at 0000, Until Discontinued, Routine spironolactone (ALDACTONE) tablet 25 mg 09 (Given - Provider: Maxx House RN)0958 ([facility] Hold - Provider: User Epic - Reason: Patient off unit)1051 ([facility] Unhold - Provider: User Epic) 25 mg, oral, DAILY, First dose on 06/01/20 at 0900, Until Discontinued, Routine tamsulosin (FLOMAX) capsule 0.4 mg 09 (Given - Provider: Maxx House RN)0958 ([facility] Hold - Provider: User Epic - Reason: Patient off unit)1051 ([facility] Unhold - Provider: User Epic) 0.4 mg, oral, DAILY, First dose on Sat at 0900, Until Discontinued, Routine Continuous Medication Order 05/30/2020 05/31/2020 06/01/2020 heparin in / NS 25,000 unit/250 mL infusion (CANCELED) 2304 (New Bag - Provider: Blessing Cortez RN) 0722 (Rate Change - Provider: Blessing samuels, TRES)1000 (Completed - Provider: Hever Naidu RN) 13 Units/kg/hr ? 56.7 kg Adjusted weight (7.371 mL/hr, rounded to 7.4 mL/hr), intravenous, at 7.4 mL/hr, CONTINUOUS, Starting Wed05/31/20 at 2300, Until 06/01/20 at 1037, Routine nitroglycerin 400 mcg/ml in D5W 250 ml infusion (CANCELED) 2301 (New Bag - Provider: Blessing Cortez, RN) 0722 (Rate Documented - Provider: Maxx House, TRES)1000 (Completed - Provider: Hever Naidu RN) 5 mcg/min (0.75 mL/hr, rounded to [...] injection (CANCELED) 1009 (Given - Provider: Saima Rankin, TRES)1011 (Given - Provider: Saima Rankin, TRES)1018 (Given - Provider: Saima Rankin, TRES) PRN, Starting 06/01/20 at 1009, Until 06/01/20 at 1034, Routine, Intraprocedure iopamidoL (ISOVUE-370) injection (CANCELED) 1033 (Given - Provider: Anthony Everett MD) PRN, Starting 06/01/20 at 1033, Until 06/01/20 at 1034, Routine, Intraprocedure midazolam (PF) (VERSED) injection (CANCELED) 1010 (Given - Provider: Saima Rankin, RN)1011 (Given - Provider: Saima Rankin, RN) PRN, Starting 06/01/20 at 1010, Until 06/01/20 at 1034, Routine, Intraprocedure traZODone (DESYREL) tablet 100 mg 0958 (MAR Hold - Provider: User Epic - [...] aspirin chewable 81 mg tablet 1 06/01/2020 aspirin chewable tablet 1 06/01/2020 fentaNYL (DURAGESIC) patch 25 mcg 1 06/01/2020 fentaNYL citrate (PF) 50 mcg/mL injection 1 2019 fentaNYL citrate (PF) injection 1 06/01/2020 fluticasone propionate (FLOVENT) 110 2 06/01/2020 05/31/2020 mcg/actuation inhaler 2 Puff heparin 1,000 unit/mL injection 1 06/01/2020 iopamidoL (ISOVUE-370) injection 1 06/01/2020 lidocaine 20 mg/mL (2 %) injection 1 06/01/2020 midazolam (PF) (VERSED) 1 mg/mL injection 2 2019 midazolam (PF) (VERSED) injection 1 06/01/2020 nitroglycerin 100 mcg/mL syringe 1 06/01/2020 verapamiL (ISOPTIN) 2.5 mg/mL injection 1 06/01/20 20 acetaminophen (TYLENOL) tablet 650 mg 1 05/31/2020 albuterol (ACCUNEB) nebulizer solution 1 0 0.63 mg heparin 1,000 unit/mL injection 2,000 1 05/31/2020 Units heparin 1,000 unit/mL injection 4,000 1 05/31/2020 Units traZODone (DESYREL) tablet 100 mg 1 05/31/2020 Procedures Count Last Ordered Date First [...] Ordered Date First Ordered Date CASE REQUEST DINING ROOM TABLES SET UP ATTENDANT 1 06/01/2020 documented in this encounter Care Teams Professor Of German Relationship Specialty Start Date End Date Aissatou Briggs, TONE PCP - General 05/31/20 [address] [place] [address] documented as of this encounter
--- OUTSIDE RECORDS SUMMARY | 2022-08-15 01:43 | XMS_ITS | Encounter Summary ---
:[address] [facility] Address [address] [place] [address] Care Team Providers Name Role Phone Randy Turner MD Primary Care Provider [phone] Encounter Details Date Type Department Care Team Description 01/08/2010 Results Only [facility] Arnoldo Kennedy MD Laboratory Services - [address] [address] [place] [address] [phone] Social History Tobacco Use Types Packs/Day Years Used Date Never Assessed Sex Assigned at Date Recorded Not on file documented as of this encounter Plan of Treatment Not on filedocumented as of this encounter Procedures Procedure Name Priority Date/Time Associated Diagnosis Comme [facility] SURGICAL PATHOLOGY Routine 01/08/2010 0:00 EST Re sults for this procedure are i n the results section. documented in this encounter Results SURGICAL PATHOLOGY (01/08/2010 0:00 EST) Pathology SURGICAL PATHOLOGY REPORT ? VIVI GUZMAN Report: Reports generated via electr myhomemove interface contain original data; ? LAB however they are lacking the format of the original report. ? Caution should be taken when reading/interpreting unformatted reports. ? Name: ? JUANA, JUNAID H ? Accession #: ? [id number] ? : ? 1955 (Age: 54) ??M ? Collec t Date: ? 01/08/2010 ? Location: ? [facility] ? R eceive Date: ? 01/08/2010 ? Provider: DRE KENNEDY MD ? Copy to: RAMON Garcia D ? Final Pathologic Diagnosis: ? Distal clavicle and s ubacromial bursa, right, resection: ? 1. ?Bone and uzma ne marrow with, with focal eosinophilic infiltration and focal fibrosis. See comment. ? 2. ? Overlying cartilage with degenerative changes. ? 3. ? Fragment of fibroca rtilaginous tissue with focal mesothelial lining, ? consistent with bursa. ? Comment: ? The focal area of eos inophilic infiltration may be due to the history of ?? injection of medication to t he affected area. This case was reviewed in the ? intradepartmental consultati on conference. This case was discussed with . ? Dre Kennedy's office and history of previous treatment confirmed. ? Document reviewed and electr onically signed by: ? Mateo Quinones MD ? Report ??Date: 01/15/2010 11 :49 ? By the signature above, the attending physician certifies that he/she has ? personally conducted a gross and/or microscopic examination of the described ? specimens and rendered or co nfirmed the above diagnosis. ? Specimen(s) Received: ? Right distal clavicle + subacromial bursa ? Clinical History: ? Chronic right shoulde r pain ? Gross Description: ? Received in formalin labelled Junaid Pérez and right distal clavicle ?? and subacromial bursa is a olson-chávez portion of trabecular bone measuring 2.5 x 1.5 x 1.0 cm. ??There is a m oderate amount of attached, chávez-white, firm, fibrous tissue. ??Upon sectioning, t he cut surfaces of the trabecular bone are olson-yellow and firm. ??Separately recei vik is a olson-white portion of fibroadipose tissue ? measuring 1.5 x 1.5 x 0.3 cm . ??There is an eccentric, 0.3 x 0.3 x 0.2 cm, ? chávez-white nodule. ??A porti on of bone is submitted as (A1) following ? decalcification and the enti re additional soft tissue is submitted as (A2). ??Melissa Jaquez)/reed ? End of Report ? Specimen Performing Organization Address City/State/[facility] Code Phon e Number [facility] [address] [place] [address] SERVICES [facility] [address] [place] [address] documented in this encounter Visit Diagnoses Not on filedocumented in this encounter Care Teams Diving Fisher Relationship Specialty Start Date End Date Randy Turner MD PCP - General 06/21/09 05/30/20 [address] [place] [id number] documented as of this encounter
--- OUTSIDE RECORDS SUMMARY | 2022-08-15 01:43 | XMS_ITS | Encounter Summary ---
:1955 Author Organization [facility] Address [address] [place] [address] Care Team Providers Name Role Phone Randy Turner MD Primary Care Provider [phone] Reason for Referral Consult (Routine/Next Available) - Closed Specialty Diagnoses / Procedures Referred By Contact Refer red To Contact Neurology Diagnoses Nonepileptic episode (HCC-CMS) (HCC) Seizure (HCC-CMS) (HCC) Lluvia Marshall MD Vitorovic, Danilo, MD [address] [place] [address] 5 [place], [place] [address] Phone: Fax: Referral ID Status Reason Start Date Expiration Date Visits V isits Requested Authorized [id number] Closed Specialty 07/10/2017 1 1 Services Required Question Answer Reason for Request: seizure ollow Up (3 - 10 Business Days) - Closed Specialty Diagnoses / Procedures Referred By Contact Refer red To Contact Diagnoses Nonepileptic episode (HCC-CMS) (HCC) Lluvia Marshall MD Meierdiercks, Frank J, [address] [place] [phone] Phone: Fax: Referral ID Status Reason Start Date Expiration Visits Visits Date Requested Authorized [id number] Closed Continuity of 07/10/2017 1 1 Care Question Answer Reason for Request: recent hospitalization Reason for Visit Reason Comments Altered Mental Status driving on interstate experi enced CP, pulled over to take 1 NTG. Had altered level of co nsciousness, seizures en route, 5 mg Versed HEEL SORTER. arrives drows y, breathing unlabored Seizures Chest Pain Encounter Details Date Type Department Care Team Description 07/10/2017 - [facility] Sharon Beck MD [address] [facility], Level 1 [place] [phone] Seizure (CMS-HCC) (Primary Dx); 07/11/2017 Encounter Neurosurgery Unit Rob Flannery MD [address] [place] [address], Level [address] [place] [phone] Spells of decreased attentiveness; [address] Nonepileptic episode ([facility]) [place], [place] [id number] Social History Tobacco Use Types Packs/Day Years Used Date Former Smoker Pipe Smokeless Tobacco: Never Used Alcohol Use Standard Drinks/Week Comments No 0 (1 standard drink = 0.6 oz pure alcoho l) Sex Assigned at Date Recorded Not on file documented as of this encounter Last Filed Vital Signs Vital Sign Reading Time Taken Comments Blood Pressure 118/72 07/11/2017 1455 EDT Pulse 68 07/10/2017 1812 EDT Temperature 36.5 ??C (97.7 ??F) 07/11/2017 1455 EDT Respiratory Rate 16 07/11/2017 1455 EDT Oxygen Saturation 98% 07/11/2017 1455 EDT Inhaled Oxygen Concentration - - Weight 57.6 kg (127 lb) 07/10/2017 0000 EDT Height 162.6 cm (5' 4) 07/10/2017 0000 EDT Body Mass Index 21.8 07/10/2017 0000 EDT documented in this encounter Functional Status [...] older) documented as of this encounter Discharge Diagnoses Diagnosis R56.9 Unspecified convulsions-R56.9[ICD- 10-CM] I69.354 Hemiplegia and hemiparesis follo wing cerebral infarction affecting left non-dominant side-I69.354[ICD-10-CM] R41.82 Altered mental status, unspecifie d-R41.82[ICD-10-CM] J44.9 Chronic obstructive pulmonary dise ase, unspecified-J44.9[ICD-10-CM] K21.9 Gastro-esophageal reflux disease w ithout esophagitis-K21.9[ICD-10-CM] Z87.820 Personal history of traumatic br ain injury-Z87.820[ICD-10-CM] I25.2 Old myocardial infarction-I25.2[IC D-10-CM] Z98.61 Coronary angioplasty status-Z98.6 1[ICD-10-CM] Z79.82 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 Spells of decreased attentiveness 07/10/2017 ??? Seizure 07/09/2017 Resolved Hospital Problems Diagnosis Date Noted Date Resolved No resolved problems to display. Hospital Course Mr. 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 Mr. Arias reports he pulled over to the side of the road after developing chest pain, then subsequently was reported to have ageneralized seizure. En route, he was noted to be oriented to person only and intermittently responsive. He then had two more episodes and received 5 mg of versed. [facility] and was witnessed to have several more episodes each lasting less than a minute with no post-ictal confusion, urinary/bowel incontinence or tongue lacerations. He was given several more roundsof lorazepam before being loaded with levetiracetam. He was monitored on vEEG, which showed no evidence of electrographic seizure associated with captured events. CT head with remote infarcts in the left temporal lobe and right cerebellum, but no evidence of acute bleed. Labs from [facility] hospital notablefor normal CBC/BMP and low-normal phenytoin level (10.1), which was subtherapeutic on repeat at [facility] (7.5), elevated lactate (10.1) improved to normal with fluids, EtOH negative, UTox negative, CK normal. Patient remained HD stable and saturating well on RA throughout hospital stay. Patient returned tobaseline by the following morning. Initially started on levetiracetam, which was discontinued once final EEG read returned. Phenytoin dose was increased, lamotrigine was continued at home dose. Patient was subsequently discharged to home on 07/11/2017 with plans to continue on increased dose ofphenytoin to 130 mg QAM and 200 mg QHS and continue on lamotrigine 100 mg QD. Unclear if patient hasepileptic seizures in addition to non-epileptic seizures and unclear whether subtherapeutic level ofphenytoin is due to inadequate dosing or medication non-adherence. In either case, patient would benefit from formal consultation with an epileptologist, so will repeat phenytoin in one week and refer for follow up with Dr. Wilson. The patient was counseled with regards to seizure precautions and safety. He/she was instructed not to drive at this time. They were instructed to avoid operating heavymachinery, working from elevated platforms or ladders or working near open flames. They were advisednot to stand near open water, swim or bathing alone. They were asked to exercise caution and refrainfrom any activities that could potentially cause harm to themself or others in the event that a seizure were to occur. The importance of medication adherence was stressed. Allergies and Immunizations Allergies Allergen Reactions ??? Codeine ??? Risperidone There is no immunization history for the selected administration types on file for this patient. Transition of Care Plans Condition at Discharge Improved Neurological Exam at Discharge Higher Mental Status: AAO x3. Follows commands. ?? Cranial Nerves: CN I: deferred CN II: visual trujillo full to confrontation CN III/IV/: EOMI, PERRLA CN V: normal masseter bulk and tone, V1-V3 intact to light touch CN VII: no facial asymmetry at rest and with activation CN VIII: deferred CN IX/X: symmetric elevation of the palate CN XI: 5/5 in SCMs and TZs CN XII: tongue protrusion to midline, no lacerations ?? Motor: Moving all four extremities. Power 5/5 R UE, 4+/5 L UE, 5/5 L UE, 4/5 L LE. ?? DTRs: 2+ in bilateral biceps, triceps, brachioradialis, bilateral patella Mute in bilateral achilles Superficial reflexes: Babinski and Cho's negative bilaterally. Discharge Medications: CHANGE how you take these medications Sig fluticasone 110 mcg/actuation inhaler Commonly known as: FLOVENT What changed: Another medication with the same name was removed. Continue taking this medication, and follow the directions you see here. Inhale 2 Puffs as directed 2 times daily. * phenytoin 50 mg chewable tablet Commonly known as: DILANTIN What changed: Another medication with the same name was changed. Make sure you understand how and when to take each. Take 200 mg by mouth at bedtime. * phenytoin 50 mg chewable tablet Commonly known as: DILANTIN What changed: how much to take Take 2.5 Tabs by mouth daily. Quantity: 75 Tab * Notice: This list has 2 medication(s) that are the same as other medications prescribed for you. Read the directions carefully, and ask your doctor or other care provider to review them with you. CONTINUE taking these medications Sig aspirin 81 mg EC tablet Take 81 mg by mouth daily. atorvastatin 40 mg tablet Commonly known as: LIPITOR Take 80 mg by mouth daily. citalopram 20 mg tablet Commonly known as: CELEXA Take 40 mg by mouth daily. docusate sodium 100 mg capsule Commonly known as: COLACE Take 100 mg by mouth daily. gabapentin 400 mg capsule Commonly known as: NEURONTIN Take 600 mg by mouth 3 times daily. HYDROcodone-acetaminophen 5-300 mg tablet Commonly known as: VICODIN Take 2 Tabs by mouth 2 times daily as needed for Pain. hydrOXYzine 25 mg tablet Commonly known as: ATARAX Take 25 mg by mouth every 6 hours as needed for Itching or Anxiety. lamoTRIgine 100 mg tablet Commonly known as: LAMICTAL Take 100 mg by mouth daily. levalbuterol 0.63 mg/3 mL nebulization Commonly known as: XOPENEX Take 0.63 mg by nebulization every 6 hours as needed for Wheezing. lisinopril 5 mg tablet Commonly known as: PRINIVIL, ZESTRIL Take 5 mg by mouth daily. meloxicam 15 mg tablet Commonly known as: MOBIC Take 15 mg by mouth daily. nitroGLYCERIN 0.4 mg SL tablet Commonly known as: NITROSTAT Place 0.4 mg under the tongue every 5 minutes as needed for Chest Pain. omeprazole 20 mg capsule Commonly known as: PRILOSEC Take 20 mg by mouth daily. traZODone 100 mg tablet Commonly known as: DESYREL Take 200 mg by mouth at bedtime. Results Pending at Discharge Test results still pending from this admission Procedure Component Value Units Date/Time Lamotrigine [[id number]] Collected: 07/09/17 1802 Lab Status: In process Updated: 07/09/172125 Relevant Studies at Discharge EEG (07/09/2017): No epileptiform activity with event captured. Last Lab Results at Discharge BUN: Lab Results Component Value Date BUN 15 07/09/2017 Creatinine: Lab Results Component Value Date CREATININE 1.00 07/09/2017 CBC: Lab Results Component Value Date WBC 6.38 07/11/2017 RBC 4.58 07/11/2017 HGB 14.7 07/11/2017 HCT 40.7 07/11/2017 MCV 89 07/11/2017 MCH 32.1 07/11/2017 MCHC 36.1 07/11/2017 PLT 141 07/11/2017 DIFFTYPE Automated 07/11/2017 Discharge Follow Up Appointments Scheduled with [facility] in the next 3 months - Dr. Tomy Wilson (epileptologist) Appointments and Procedures Recommended to Patient - Dr. Turner (PCP) Studies We Will Schedule - phenytoin level in one week Lluvia Marshall MD 07/10/2017 20:24 I interviewed and examined the patient. I reviewed the resident's discharge note above and I agree with the findings and plan of care documented. documented in this encounter Discharge Instructions Lluvia Ervin MD - 07/10/2017 20:49 EDT Seizure Precautions: - Do not drive until you have been at least 6 months seizure free (12 months if [facility] resident) and cleared by physician. - Avoid operating heavy machinery, work from elevated platforms or ladders or work near open flames. - Avoid standing near open water, swimming or bathing alone (showers are okay). - Exercise caution and refrain from activities that could potentially cause harm to yourself or others if you were to suddenly lose consciousness. - Avoid excessive alcohol usage and sleep deprivation, as these have been known to trigger seizures. - It is important to take your medications regularly each day at the same time without missing doses. documented in this encounter Medications at Time of Discharge Medication Sig Dispensed Refills Start Date End Date atorvastatin (LIPITOR) Take 80 mg by mouth 0 40 mg tablet daily. citalopram (CELEXA) 20 Take 40 mg by mouth 0 mg tablet daily. docusate sodium Take 100 mg by mouth 0 (COLACE) 100 mg capsule daily. fluticasone (FLOVENT) Inhale 2 Puffs as 0 110 mcg/actuation directed 2 times inhaler daily. gabapentin (NEURONTIN) Take 600 mg by mouth 4 0 400 mg capsule times daily. HYDROcodone-acetaminoph Take 2 Tabs by mouth 2 0 en (VICODIN) 5-300 mg times daily as needed tablet for Pain. lamoTRIgine (LAMICTAL) Take 100 mg by mouth 2 0 100 mg tablet times daily. levalbuterol (XOPENEX) Take 0.63 mg by 0 0.63 mg/3 mL nebulization every 6 nebulization hours as needed for Wheezing. lisinopril (PRINIVIL, Take 5 mg by mouth 0 ZESTRIL) 5 mg tablet daily. nitroGLYCERIN Place 0.4 mg under the 0 (NITROSTAT) 0.4 mg SL tongue every 5 minutes tablet as needed for Chest Pain. traZODone (DESYREL) 100 Take 100 mg by mouth 0 mg tablet at bedtime as needed for Sleep. aspirin 81 mg EC tablet Take 81 mg by mouth 0 05/31/2020 daily. hydrOXYzine (ATARAX) 25 Take 25 mg by mouth 0 05/31/2020 mg tablet every 6 hours as needed for Itching or Anxiety. meloxicam (MOBIC) 15 mg Take 15 mg by mouth 0 05/31/2020 tablet daily. omeprazole (PRILOSEC) Take 20 mg by mouth 0 05/31/2020 20 mg capsule daily. phenytoin (DILANTIN) 50 Take 2.5 Tabs by mouth 75 Tab 3 07/11/2017 05/31/2020 mg chewable tablet daily. phenytoin (DILANTIN) 50 Take 200 mg by mouth 0 05/31/2020 mg chewable tablet at bedtime. documented as of this encounter Ordered Prescriptions Prescription Sig Dispensed Refills Start Date End Date phenytoin (DILANTIN) 50 mg Take 2.5 Tabs by 75 Tab 3 08/201705/31/2020 chewable tablet mouth daily. documented in this encounter Discharge Disposition Disposition Code Departure Means Destination Home or Self Care documented in this encounter Progress Notes Gifty Santamaria OT - 07/11/2017 1116 EDT [facility] Rehabilitation Therapy Acute Therapies [facility] Occupational Therapy Initial Evaluation Note Date of Service: 07/11/2017 Reason for Referral: Evaluate and treat Precautions: Activity as tolerated, Ambulate, Fall precautions, Seizure precautions and Aspiration precautions SUBJECTIVE: I'm doing okay. I do the best I can. Mr. Arias also reported feeling sleepy and reported he always feels more tired after seizure episodes. Pain: Location: Chest Intensity: 4/10 Present Frequency: Intermittent and ongoing for the last several weeks (admitted due to chest pain and seizures) Quality: Did not state. Aggravating factors: Did not state. Alleviating factors: Did not state. OBJECTIVE: Patient Profile: Junaid Arias is a R hand dominant 62 y.o. male admitted on 07/10/2017 secondary toALTERED MENTAL STATUS, SEIZURES, CHEST PAIN R56.9 Unspecified convulsions-R56.9[ICD-10-CM] The patient lives at [address] [place], [place] [id number] History of Present Illness/Injury: Per H&P by Dr. Flannery dated 07/10/2017, Mr. Junaid Arias is a 62 y.o. 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 Per ED report, Mr. Arias was apparently driving and developed chest pain. He pulled over to the side of the road and thenreportedly had a generalized seizure. ?? Per Dr. Heike Beck's note, ??EMS reports the patient was oriented x1 while on the was to the hospital and intermittently unresponsive. EMS states the patient had 2 seizures HEEL SORTER that were approximately 30 seconds in duration. EMS gave the patient 5 mg Versed HEEL SORTER. He notes left arm pain and left hand numbness that is worse than baseline s/p CVA. Patient endorses he has had chest pain similar to this in the past that has resulted in an accident . . . Patient??reports falling and hitting his head 2 weeks ago. He states that he went to the hospital after hitting his head and was admitted for an intra cranial??hemorrhage at [facility] in [place]. ?? Upon transfer to [facility], patient was reported to have several more episodes of generalized seizures lasting one minute or less. He was given 2 mg of ativan x2. Afebrile and hempdynamically stable. Labs from [facility] hospital notable for normal CBC/BMP and low-normal phenytoin level (10.1), which was subtherapeutic on repeat at [facility] (7.5), elevated lactate (10.1), EtOH negative. Asked ED to add on UA, UTox, CK, Ca, PO4 and LFTs, which were normal. Lamotrigine level pending. CT head without evidence of bleed, but with remote infarcts in the left temporal lobe and right cerebellum. Patient arrives with a very old list of medications that includes phenytoin 100 mg QAM, 200 mg QHS and ?lamotrigine 100 mg QD. P atient able to confirm phenytoin. Patient HD stable and saturating well on RA. Drowsy, but able to state name, state events prior to episode, follow simple commands (shows number of fingers) and do simple arithmetic (subtract 2 from five) within a few minutes of reported seizure. No loss of urinary orbladder continence. No evidence of tongue biting on exam. Patient states last seizure was four days ago after he hit his head. ?? Patient loaded with 2g keppra. vEEG placed. Imaging Head CT without contrast 07/2017 IMPRESSION: 1. No evidence of acute intracranial hemorrhage. 2. 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 If there is high clinical concern for acute stroke, MRI may be helpful. 3. Right mastoid air cell opacification. Chest X-ray 07/09/2017 Impression: Likely pulmonary edema. Living Environment/Home Set-up: Pt. lives with his , who is mostly bed- bound, and his 30-something year old son in a one story house with ramped entrance. Bathroom is a tub and shower combo. Caregiver Support: Part-time assist from son Equipment Available: Pt. reported having and using shower chair, grab bars in bathroom, L AFO, special R LE brace, special shoes and quad cane. Pt. reported his is mostly bed-bound and has equipment including a mechanical lift for OOB transfers. Prior Level of Function: Activities of daily living: Modified I to independent with use of adaptive equipment prn and with increased time needed to complete tasks due to limited functional use of L UE from prior CVA. Reported difficulty completing clothing fasteners at baseline, ie buttons and ties. Instrumental activities of daily living: Modified I to independent- Pt. 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 Pt. reported he drives and has become well aware of any signs of oncoming seizures and knows to door puller. 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 Mobility: Modified I with use of L AFL, special brace for R LE although not used all the time, special shoes and quad cane per pt. Report. *Pt. reported he also has to assist with his 's care as she is mostly bed- bound. He reported hiswife does have HH services including an aid that comes daily and a nurse that comes a couple of times/week to assist. Pt. reported he has received therapy in the past but has since reached a plateau. Pt. reported he does not currently received any therapy services. Medical/Surgical History: Current: Patient Active Problem List Diagnosis ??? Seizure ??? Spells of decreased attentiveness ??? Nonepileptic episode Past: No past medical history on file. No past surgical history on file. Medications: Medications reviewed Body Functions and Performance Skills: Cardiovascular/Respiratory Systems Function: Vital Signs: Position Heart Rate (bpm) Blood Pressure (mmHG) Respiratory Rate (breaths/min) Oxygen Saturation SPO2 Liters of Oxygen Pre: Supine 74 133/79 97 Room air Post: Supine 71 128/89 95 Room air Mental Functions: Specific mental functions: Able to follow at least one and two step verbal commands to participate. Attention span grossly WNL. Pt. appeared to have good understanding of and insight to functional abilities and limitations. Safety awareness appeared intact. Global mental functions: Awake, alert and oriented x 3. Sensory Functions: Touch: Reported diminished sensation to light touch throughout L UE/LE due to prior CVA. Vision: Corrected with glasses. Reported gradual worsening of vision over the years but denied acutechanges in vision such as blurry vision or double vision. Hearing: Appeared grossly WNL based on pt.'s ability to participate in conversation with therapist and to follow verbal commands from therapist. Neuro musculoskeletal and Movement Related Functions: Range of motion: R UE AROM grossly WNL. L UE AROM limited secondary to prior CVA with residual L UE/LE weakness. Strength: R UE strength grossly 5/5 and R waiter waitress strength 5/5. L UE strength grossly <3/5 and L waiter waitress strength <3/5. Skin and Related Structure Functions: Per pt. story section of chart: PICC / CVC / PIV Catheter ? Peripheral IV 07/10/17 1808 less than 1 Left;Posterior;Medial;Distal day Forearm Areas of Occupation and Performance Skills: Basic Activities of Daily Living: Feeding: Modified I per pt. Report. Upper Body Dressing: Min A to [facility] gown closed around neck and back due to difficulty completing fasteners at baseline due to limited functional use of L UE per pt. report. Lower Body Dressing: Able to don/doff slip-on shoes and L AFO with velcro strap modified I with increased time needed to complete task secondary to limited functional use of L UE. Toilet Transfer: Able to perform sit<>stand transfers to/from regular low surface commode modified I using R UE to pull on L side grab bar during transfers. Denied need to void at this time. Functional Mobility: Supine>sit: Independent exiting bed toward R side. Sit>supine: Independent. Sit>stand: Independent to stand from bed; modified I to stand from regular low surface commode with use of grab bar. Stand>sit: Independent to sit on bed; modified I to sit on regular low surface commode with use of grab bar. Mobility: Pt. wore L AFO and slip-on shoes during evaluation. He reported he sometimes wears a R LE brace and certain shoes but did not have either present during evaluation. Pt. requested to use quad cane to ambulate to/from bathroom due to short distance. Close supervision was provided due to slightunsteadiness with use of cane. Pt. used L side platform walker as recommended by PT for further mobility in hallway with improved steadiness noted. Pt. was modified I for mobility with use of platform walker. Pt. stated he was aware he was much more steady using the walker and was agreeable to using it in the future. Informed Consent: The patient consented to the occupational therapy evaluation. The patient agrees to and understands the occupational therapy treatment plan and goals. Interventions completed today: Occupational therapy today at 10:45. Total treatment time: 25 minutes. Timed code treatment minutes: 0 minutes Intervention included: No interventions today Patient/Family Education: Not applicable Team Communication: OT spoke with RN prior to evaluation and she was agreeable to OT working with pt. ASSESSMENT: Mr. Arias was agreeable to working with OT after role of OT was explained to him. Mr. Arias has a h/o CVA 6 years ago with residual L side weakness and has very limited AROM and functional use of his L UE. Mr. Arias is currently modified I to independent performing some basic self care ADLs in hospital setting with the exception of needing min A at baseline for completion of certain clothing fasteners such as buttons and ties due to limited use of L UE. Mr. Arias is also currently modified Arsh independent with functional transfers and functional mobility with use of L AFO and L side platform walker. Mr. Arias reported he received therapy in the past however denied receiving any therapy services currently as he reached a plateau. Mr. Arias currently appears to be functioning at or near to his functional baseline as demonstrated during this evaluation and does not require any skilled acute OT services at this time. Mr. Arias was in agreement with this.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 18:26 lan of Lois - Arely White RN - 07/10/2017 0418 EDT Problem: Daily Care Plan Goals Goal: Care Plan Documentation Outcome: Ongoing 07/10/17 0000 Care Plan Focus Area of Focus Neuro Status Goal This Shift pts NVS will remain stable Data: Pt admitted with seizure activity and arrived from ED with EEG monitoring. Pt drowsy, orientedx 1 and became agitated wanting to leave, wanting to speak with the MD, ripping of his leads multiple times. Action: MD Chin at bedside. Ordered x 1 PO Ativan. Response: The Ativan was not given as the Pt was able to be redirected and did finally fall asleep. Pt did have an event lasting approximately 25 seconds with tonic/clonic episode. Prior to event stated he had a H/A and its going to be a bad one. Immediately after episode ended pt was able to converse and recalled events. States that he usually has about 5-6 minutes to get help and I don't usuallymake it. Dr. Chin into see pt. Pt asleep now, awakening intermittently confused. Arely White, TRES 07/10/2017 4:09 documented in this encounter Plan of Treatment Scheduled Referrals Name Type Priority Associated Diagnoses Order S chedule AMB CONS/FOLLOW UP Outpatient Referral Routine Nonepileptic ep isode [place] [place]2017 PHYSICIAN AMB CONS/FOLLOW UP Outpatient Referral Routine Nonepileptic ep isode Ordered: [place] [place] [place] documented as of this encounter Procedures Procedure Name Priority Date/Time Associated Comments Diagnosis COMPLETE BLOOD COUNT Routine 07/11/2017 5:31 Resu lts for this AND DIFFERENTIAL EDT procedure a re in the results section. DRY POWDERED OR Routine 07/10/2017 13:42 METERED DOSE INHALER EDT DRY POWDERED OR Routine 07/10/2017 13:42 METERED DOSE INHALER EDT EEG WITH PROLONGED Routine 07/10/2017 8:40 Result s for this BEDSIDE VIDEO EDT procedure are in MONITORING the results section. TROPONIN I STAT 07/10/2017 7:33 Results for this EDT procedure are i n the results section. COMPLETE BLOOD COUNT Routine 07/10/2017 7:32 Resu lts for this AND DIFFERENTIAL EDT procedure a re in the results section. EKG 12-LEAD STAT 07/10/2017 7:18 Results for this EDT procedure are i n the results section. PORTABLE CHEST 1 VIEW STAT 07/10/2017 7:09 Res ults for this EDT procedure are i n the results section. LACTIC ACID Routine 07/10/2017 2:32 Results for this EDT procedure are i n the results section. INPATIENT ADD-ON STAT 07/10/2017 0:56 Results for this EDT procedure are i n the results section. SCREENING GLUCOSE Routine 07/10/2017 0:42 Results for this EDT procedure are i n the results section. EKG 12-LEAD STAT 07/10/2017 0:37 Results for this EDT procedure are i n the results section. ED/URGENT CARE ADD-ON Routine 07/09/2017 23:20 Re sults for this EDT procedure are i n the results section. LACTIC ACID STAT 07/09/2017 21:58 Results for this EDT procedure are i n the results section. GLUCOSE, SERUM Routine 07/09/2017 21:58 Results f or this EDT procedure are i n the results section. INPATIENT ADD-ON Routine 07/09/2017 21:25 Results for this EDT procedure are i n the results section. DRUG SCREEN 11, URINE STAT 07/09/2017 19:40 Re sults for this EDT procedure are i n the results section. URINALYSIS WITH STAT 07/09/2017 19:40 Results for this MICROSCOPIC IF EDT procedure are in POSITIVE the results section. UA REFLEX Routine 07/09/2017 19:40 Results for this EDT procedure are i n the results section. ED/URGENT CARE ADD-ON STAT 07/09/2017 19:00 Re sults for this EDT procedure are i n the results section. CT HEAD WO CONTRAST STAT 07/09/2017 18:50 Resu lts for this EDT procedure are i n the results section. PROFILE ED CARDIAC Routine 07/09/2017 18:02 Resul ts for this PACK EDT procedure are i n the results section. LACTIC ACID Routine 07/09/2017 18:02 Results for this EDT procedure are i n the results section. LAMOTRIGINE Routine 07/09/2017 18:02 Results for this EDT procedure are i n the results section. PHENYTOIN Routine 07/09/2017 18:02 Results for this EDT procedure are i n the results section. PHOSPHORUS Routine 07/09/2017 18:02 Results for this EDT procedure are i n the results section. CK Routine 07/09/2017 18:02 Results for this EDT procedure are i n the results section. CALCIUM Routine 07/09/2017 18:02 Results for this EDT procedure are i n the results section. ETHANOL, BLOOD Routine 07/09/2017 18:02 Results f or this EDT procedure are i n the results section. HEPATIC FUNCTION Routine 07/09/2017 18:02 Results for this PANEL (ALB,ALK EDT procedure are in PHOS,ALT,AST,DBIL,TOT the re sults CATALINA,TOT PROT) section. EKG 12-LEAD STAT 07/09/2017 17:54 EDT documented in this encounter Results HEMAGRAM AND DIFFERENTIAL (07/11/2017 5:31 EDT) Pathologist Sig nature WBC 6.38 4.0 - 10.4 [facility] K[facility] LABORATORY SERVICES RBC 4.58 4.36 - 5.78 [facility] M[facility] LABORATORY SERVICES Hemoglobin 14.7 13.8 - 17.3 [facility] gm/dl LABORATORY SERVICES HCT 40.7 39.5 - 50.2 % [facility] LABORATORY SERVICES MCV 89 81 - 95 fl [facility]OR[facility] SERVICES MCH 32.1 27.6 - 33.0 pg [facility] LABORATORY SERVICES MCHC 36.1 32.8 - 36.4 [facility] gm/dl LABORATORY SERVICES RDW-CV 12.8 <14.2 % [facility] LABORATORY SERVICES RDW-SD 42.0 <46.0 fl [facility] LABORATORY SERVICES PLT 141 141 - 377 K/[facility] LABORATORY SERVICES MPV 9.7 9.5 - 12.7 fl [facility] LABORATORY SERVICES Neutrophils 59.3 % [facility] LABORATORY SERVICES Lymphocytes 23.5 % [facility] LABORATORY SERVICES Monocytes 10.0 % [facility] LABOR[facility]ORY SERVICES Eosinophils 6.1 % [facility]ORATORY SERVICES Basophils 0.8 % [facility] LABORATORY SERVICES Immature Grans 0.3 % [facility] LABORATORY SERVICES ABS Neutrophils 3.78 2.20 - 8.85 [facility] LABORATORY SERVICES ABS Lymphs 1.50 1.09 - 3.30 [facility] LABORATORY SERVICES ABS Monocytes 0.64 0.1 - 0.8 [facility] LABORATORY SERVICES ABS Eosinophils 0.39 0.03 - 0.61 [facility] LABORATORY SERVICES ABS Basophils 0.05 0.01 - 0.11 [facility] LABORATORY SERVICES ABS Immature Grans 0.02 0 - 0.06 /[facility] LABORATORY SERVICES Type of Diff: Automated [facility] LABORATORY SERVICES Specimen Blood specimen (specimen) - Blood Performing Organization Address City/State/ZIP Code Phon e Number [facility]OR[facility]ORY [address] [place] [address] SERVICES EEG WITH PROLONGED BEDSIDE VIDEO MONITORING (07/10/2017 8:40 EDT) Narrative POINT OF CARE - 07/10/2017 8:40 EDT Haris Templeton MD,PHD ? 07/10/2017 ??8:40 [facility] ??Name: Junaid Arias Clinical Neurophysiology Laboratory ??MR N: [id number] [address] ? : 1955 [place], [place] ?Date: 07/09/20 17 Electroencephalogram Report Referring Physician: Randy Turner MD ? Study Number: [id number] Clinical Indication: ??63 y/o rhd male p resents with altered mental status and seizures. Medications: See PRISM Technical Description: Portable EEG: ??This EEG is a portable s Mechiody digital that was performed utilizing silver-silver chlori de electrodes placed according to the International 10-20 sys tem of electrode placement. ??CPZ serves as the recording reference electrode. ??The following additional electrodes are also placed: ECG electrodes , anterior temporal electrodes ?? The study begins at 2034 until 2103 with a total study duration of 29 minutes. During this study the following states t he followingwere recorded: Wake Subject factors: Cooperative, Uncooperat kim, Restless The patient and/or caregivers report: ?? hours of sleep night before study; Estimated average ?? hours of sleep Previous EEG Study? No Findings: Findings: The alpha rhythm is 7 Hz. Hyperventilation: Not performed as patie nt neurological condition Photic stimulation: Not performed due to portable study The drowsy and sleep recording contains the following features: ?? No sleep acquired. Impression: Minimally abnormal EEG with slow alpha. Clinical Correlation: There is no epilep tiform activity in this study. ??Video EEG monitoring initiated. Haris Templeton MD,PHD ABPN Certified, Neurology and Clinical N europhysiology 8:35 ??07/10/2017 Performing Organization Address City/State/ZIP Code Phon e Number [facility] POINT OF CARE POINT OF CARE TROPONIN I (07/10/2017 7:33 EDT) Pathologist Sig nature Troponin I (ng/mL) <0.034 <0.034 ng/ml [facility] LABORATORY SERVICES Specimen Blood specimen (specimen) - Blood Performing Organization Address City/State/ZIP Code Phon e Number [facility] [address] [place] [address] SERVICES (ABNORMAL) HEMAGRAM AND DIFFERENTIAL (07/10/2017 7:32 EDT) Pathologist Sig nature WBC 7.14 4.0 - 10.4 [facility] K/cm LABORATORY SERVICES RBC 4.41 4.36 - 5.78 [facility] M[facility] LABORATORY SERVICES Hemoglobin 14.0 13.8 - 17.3 [facility] gm/dl LABORATORY SERVICES HCT 39.3 (L) 39.5 - 50.2 % [facility] LABORATORY SERVICES MCV 89 81 - 95 fl [facility] LABORATORY SERVICES MCH 31.7 27.6 - 33.0 pg [facility] LABORATORY SERVICES MCHC 35.6 32.8 - 36.4 [facility] gm/dl LABORATORY SERVICES RDW-CV 12.7 <14.2 % [facility] LABORATORY SERVICES RDW-SD 41.8 <46.0 fl [facility] LABORATORY SERVICES PLT 128 (L) 141 - 377 [facility] MPV 9.5 9.5 - 12.7 fl [facility] LABORATORY SERVICES Neutrophils 66.7 % [facility] LABORATORY SERVICES Lymphocytes 18.1 % [facility] LABORATORY SERVICES Monocytes 9.5 % [facility] LABORATORY SERVICES Eosinophils 4.8 % [facility] LABORATORY SERVICES Basophils 0.6 % [facility] LABORATORY SERVICES Immature Grans 0.3 % [facility] LABORATORY SERVICES ABS Neutrophils 4.77 2.20 - 8.85 [facility] K/cm LABORATORY SERVICES ABS Lymphs 1.29 1.09 - 3.30 [facility] K[facility] LABORATORY SERVICES ABS Monocytes 0.68 0.1 - 0.8 K/[facility] LABORATORY SERVICES ABS Eosinophils 0.34 0.03 - 0.61 [facility] K[facility] LABORATORY SERVICES ABS Basophils 0.04 0.01 - 0.11 [facility] K[facility] LABORATORY SERVICES ABS Immature Grans 0.02 0 - 0.06 K/[facility] LABORATORY SERVICES Type of Diff: Automated [facility] LABORATORY SERVICES Specimen Blood specimen (specimen) - Blood Performing Organization Address City/State/ZIP Code Phon e Number [facility]OR[facility] [address] [place] [address] SERVICES EK 12-LEAD (07/10/2017 7:18 EDT) Specimen Narrative [facility] EKG - 07/14/2017 8:21 EDT ? [facility] ? Test Date: ?2017-07-10 Pat Name: ? JUNAID ARIAS ?Department: ?? JIMENEZ 6 ? Room: ? M626 Gender: ? M ?Rebeamer: ?? [id number] : ?1955 ? Requested By: EVY Palomares Order Number: [id number] ? Reading MD: ?? RICHARD CORTEZ MD ? Measurements Intervals ?[place] ? Rate: ? 64 ? P: ?6 [place]: ? 144 ?QRS: ?18 QRSD: ? 98 ? T: ?226 QT: ? 428 ? QTc: ?444 ? Interpretive Statements SINUS RHYTHM CANNOT RULE OUT INFERIOR MYOCARDIAL INFA RCTION, INDETERMINATE AGE MODERATE T-WAVE ABNORMALITY, CONSIDER IS CHEMIA Compared to ECG 07/10/2017 00:37:15 No significant changes I reviewed the tracing and have either a greed or edited the findings in this report. Electronically Signed On 08:21:23 EDT by RICHARD CORTEZ MD. Procedure Note Richard Cortez MD - 07/14/2017 [facility] r Test Date: 2017-07-10 Pat Name: JUNAID ARIAS Department: [facility] URE 6 [place] [facility] [place]: M Rebeamer: [id number] : 1955 Requested By: EVY Palomares Order Number: [id number] Alfonso MD: Radha CORTEZ MD Measurements Intervals [place] Rate: 64 P: 6 [place]: 144 QRS: 18 QRSD: 98 T: 226 QT: 428 QTc: 444 Interpretive Statements SINUS RHYTHM CANNOT RULE OUT INFERIOR MYOCARDIAL INFA RCTION, INDETERMINATE AGE MODERATE T-WAVE ABNORMALITY, CONSIDER IS CHEMIA Compared to ECG 07/10/2017 00:37:15 No significant changes I reviewed the tracing and have either a greed or edited the findings in this report. Electronically Signed On 08:21:23 EDT by RICHARD CORTEZ MD. Performing Organization Address City/State/ZIP Code Phon e Number [facility] EKG PORTABLE CHEST 1 VIEW (07/10/2017 7:09 EDT) Anatomical Region Laterality Modality Other Specimen Narrative [facility] - 07/10/2017 9:07 EDT PORTABLE CHEST 1 VIEW ??07/10/2017 7:09 AM Clinical History/Comments: cough, sob COMPARISON: None available. FINDINGS: Semirecumbent portable AP view of the est. Lines/tubes: ??None Soft tissues and bones: No significant a bnormalities. Cardiac and mediastinal contours: There is slight widening of the upper mediastinum which is thought to be related to diminished lung volumes. The cardiac silhouette appears within normal limits. Lungs: There are diffuse ill-defined air space opacities with interlobular septal thickening and indis tinctness of the pulmonary vascularity. No dense consolidation is i dentified. Pleura: No pleural effusion or pneumotho rax is identified, though neither can be ruled out on this nonupri ght film. Impression: Likely pulmonary edema. I have personally reviewed the images an d the above interpretation and agree with the findings. Procedure Note Chuyita Romero MD - 07/10/2017 PORTABLE CHEST 1 VIEW 07/10/2017 7:09 AM Clinical History/Comments: cough, sob COMPARISON: None available. FINDINGS: Semirecumbent portable AP view of the est. Lines/tubes: None Soft tissues and bones: No significant a bnormalities. Cardiac and mediastinal contours: There is slight widening of the upper mediastinum which is thought to be related to diminished lung volumes. The cardiac silhouette appears within normal limits. Lungs: There are diffuse ill-defined air space opacities with interlobular septal thickening and indis tinctness of the pulmonary vascularity. No dense consolidation is i dentified. Pleura: No pleural effusion or pneumotho rax is identified, though neither can be ruled out on this nonupri ght film. Impression: Likely pulmonary edema. I have personally reviewed the images an d the above interpretation and agree with the findings. Performing Organization Address City/State/ZIP Code Phon e Number [facility] LACTIC ACID (07/10/2017 2:32 EDT) Pathologist Sig nature Lactic Acid 1.2 <2.0 mmol/L [facility] LABORATOR Y SERVICES Specimen Blood specimen (specimen) - Blood Performing Organization Address City/[facility]/ZIP Code Phon e Number [facility] [address] [place] [address] SERVICES INPATIENT ADD-ON (07/10/2017 0:56 EDT) Pathologist Sig nature Tests to be added GLUCOSE, SERUM [facility] LABORATORY SERVICES Number for problems Not Given [facility]OR[facility] SERVICES Accession number [id number] [facility] LAB[facility] SERVICES Specimen Other Performing Organization Address City/[facility]/ZIP Code Phon e Number [facility] [address] [place] [address] SERVICES (ABNORMAL) SCREENING GLUCOSE (07/10/2017 0:42 EDT) Pathologist Sig nature Glucose, Screening 105 (H) 70 - 100 mg/dl [facility] SERVICES Specimen Blood specimen (specimen) - Blood Performing Organization Address City/[facility]/ZIP Code Phon e Number [facility] [address] [place] [address] SERVICES EKG 12-LEAD (07/10/2017 0:37 EDT) Specimen Narrative [facility] EKG - 07/14/2017 9:55 EDT ? [facility] ? Test Date: ?2017-07-10 Pat Name: ? JUNAID ARIAS ?Department: ?? JIMENEZ 6 ? Room: ? M626 Gender: ? M ?Rebeamer: ?? [id number] : ?1955 ? Requested By: EVY Palomares Order Number: [id number] ? Reading MD: ?? PRO JEROME MD ? Measurements Intervals ?[place] ? Rate: ? 61 ? P: ?55 [place]: ? 152 ?QRS: ?40 QRSD: ? 98 ? T: ?248 QT: ? 417 ? QTc: ?422 ? Interpretive Statements SINUS RHYTHM POSSIBLE INFERIOR MYOCARDIAL INFARCTION, OF INDETERMINATE AGE MODERATE T-WAVE ABNORMALITY, CONSIDER LA TERAL ISCHEMIA Automated Interpretation. ??Provider Int erpretation to follow. No previous ECG available for comparison I reviewed the tracing and have either a greed or edited the findings in this report. Electronically Signed On 7 09:55:19 EDT by PRO JEROME MD. Procedure Note Pro Jerome MD - 07/14/2017 [facility] r Test Date: 2017-07-10 Pat Name: JUNAID ARIAS Department: [facility] URE 6 Room: M626 Gender: M Rebeamer: [id number] : 1955 Requested By: EVY Palomares Order Number: [id number] Reading MD: Marleni JEROME MD Measurements Intervals [place] Rate: 61 P: 55 [place]: 152 QRS: 40 QRSD: 98 T: 248 QT: 417 QTc: 422 Interpretive Statements SINUS RHYTHM POSSIBLE INFERIOR MYOCARDIAL INFARCTION, OF INDETERMINATE AGE MODERATE T-WAVE ABNORMALITY, CONSIDER LA TERAL ISCHEMIA Automated Interpretation. Provider Inter pretation to follow. No previous ECG available for comparison I reviewed the tracing and have either a greed or edited the findings in this report. Electronically Signed On 09:55:19 EDT by PRO JEROME MD. Performing Organization Address City/[facility]/ZIP Code Phon e Number [facility] EKG ED/URGENT CARE ADD-ON (07/09/2017 23:20 EDT) Tests to be [facility] Number for problems [id number] (ED) [facility] LABORATORY SERVICES Specimen Other Performing Organization Address [facility]/ZIP Code Phon e Number [facility] [address] [place] [address] SERVICES (ABNORMAL) GLUCOSE, SERUM (07/09/2017 21:58 EDT) Pathologist Sig nature Glucose, Serum 101 (H) 70 - 100 mg/dl [facility] LABORATORY SERVICES Specimen Blood Performing Organization Address City/[facility]/ZIP Code Phon e Number [facility] [address] [place] [address] SERVICES LACTIC ACID (07/09/2017 21:58 EDT) Pathologist Sig nature Lactic Acid 1.1 <2.0 mmol/L [facility] LABORATOR Y SERVICES Specimen Blood specimen (specimen) - Blood Performing Organization Address [facility]/ZIP [facility] Phon e Number [facility] [address] [place] [address] SERVICES INPATIENT ADD-ON (07/09/2017 21:25 EDT) Pathologist Sig nature Tests to be added LAMICTAL [facility] LABORATORY SERVICES Number for problems NOTG [facility] LABORATORY SERVICES Accession number [id number] [facility] LABORATORY SERVICES Specimen Other Performing Organization Address City/State/ZIP Code Phon e Number [facility] [address] [place] [address] SERVICES UA REFLEX (07/09/2017 19:40 EDT) Pathologist Sig nature UA Billing Microscopic not [facility] indicated. LABORATORY SERVICES Specimen Urine Performing Organization Address City/State/ZIP Code Phon e Number [facility] [address] [place] [address] SERVICES DRUG SCREEN 11, URINE (07/09/2017 19:40 EDT) Amphetamine Screen Negative screen. [facility] Comment: [facility] LABORATORY Confirmation testing available upon request. SERVICES New methodology in use 03/10/17. Suitable for medical purposes only. Will not detect all drugs within class. Cutoff = 500 ng/ml Specimen type is urine. Barbituate Screen Presumptive positive, interpret with caution. [facility] Comment: [facility] Confirmation testing available upon request. SERVICES New methodology in use 03/10/17. Suitable for medical purposes only. Will not detect all drugs within class. Cutoff = 200 ng/ml Specimen type is urine. Benzodiazepine Scrn Presumptive positive, interpret with caution. [facility] Comment: [facility] Confirmation testing available upon request. SERVICES New methodology in use 03/10/17. Suitable for medical purposes only. Will not detect all drugs within class. Cutoff = 150 ng/ml Specimen type is urine. Cannabinoids Screen Negative screen. [facility] Comment: [facility] Confirmation testing available upon request. SERVICES New methodology in use 03/10/17. Suitable for medical purposes only. Will not detect all drugs within class. Cutoff = 50 ng/ml Specimen type is urine. Methadone Screen Negative screen. [facility] Comment: [facility] Confirmation testing available upon request. SERVICES New methodology in use 03/10/17. Suitable for medical purposes only. Will not detect all drugs within class. Cutoff = 200 ng/ml Specimen type is urine. Opiates Screen Negative screen. [facility] Comment: [facility] Confirmation testing available upon request. SERVICES New methodology in use 03/10/17. Suitable for medical purposes only. Will not detect all drugs within class. Cutoff = 100 ng/ml Specimen type is urine. Oxycodone Screen Negative screen. [facility] Comment: [facility] Confirmation testing available upon request. SERVICES New methodology in use 03/10/17. Suitable for medical purposes only. Will not detect all drugs within class. Cutoff = 100 ng/ml Specimen type is urine. Cocaine Metabolites Negative screen. [facility] Comment: [facility] Confirmation testing available upon request. SERVICES New methodology in use 03/10/17. Suitable for medical purposes only. Will not detect all drugs within class. Cutoff = 150 ng/ml Specimen type is urine. Buprenorph and Metab Negative screen. [facility] Comment: [facility] Confirmation testing available upon request. SERVICES New methodology in use 03/10/17. Suitable for medical purposes only. Will not detect all drugs within class. Cutoff = 10 ng/ml Specimen type is urine. Methamphetamine Scrn Negative screen. [facility] Comment: [facility] Confirmation testing available upon request. SERVICES New methodology in use 03/10/17. Suitable for medical purposes only. Will not detect all drugs within class. Cutoff = 500 ng/ml Specimen type is urine. Propoxyphene Screen Negative screen. [facility] Comment: [facility] Confirmation testing available upon request. SERVICES New methodology in use 03/10/17. Suitable for medical purposes only. Will not detect all drugs within class. Cutoff = 300 ng/ml Specimen type is urine. Specimen Urine (substance) - Urine Performing Organization Address [facility] [place] Code Phon e Number [facility] [address] [place] [address] SERVICES (ABNORMAL) URINALYSIS WITH MICROSCOPIC IF POSITIVE (07/09/2017 19:40 EDT) Pathologist Sig nature Color, UA Yellow [facility] SERVICES Clarity, UA Clear [facility] Glucose, UA Neg Neg [facility] SERVICES Bilirubin, UA Neg Neg [facility] Ketones, UA Neg Neg [facility] SERVICES Specific Waucoma, 1.010 1.001 - 1.035 [facility] Urine LABORATORY SERVICES Blood, UA 1+ (A) Neg [facility] SERVICES pH, UA 5.5 4.6 - 8.0 [facility] SERVICES Protein, UA Neg Neg [facility] SERVICES Urobilinogen, UA 0.2 0.2 - 1.0 [facility] E.U./dl LABORATORY SERVICES Nitrite, UA Neg Neg [facility] SERVICES Leuk Esterase Neg [facility] LABORATORY SERVICES Specimen Urine (substance) - Urine Performing Organization Address City/[facility] [place]/ZIP Code Phon e Number [facility] [address] [place] [address] SERVICES ED/URGENT CARE ADD-ON (07/09/2017 19:00 EDT) Pathologist Sig nature Tests to be added CKComment: [facility] SERVICES Number for problems [id number] (ED) [facility] SERVICES Specimen Other Performing Organization Address City/State/ZIP Code Phon e Number [facility] [address] [place] [address] HEAD WO CONTRAST (07/09/2017 18:50 EDT) Anatomical Region Laterality Modality Other Specimen Narrative [facility] - 07/09/2017 19:[address] HEAD WO CONTRAST ??07/09/2017 6:50 PM SIGNS AND SYMPTOMS/COMMENTS: ?? stroke, left arm weakness, h/o CVA TECHNIQUE: ??Axial non-contrast CT image s of the head were obtained from the vertex through the foramen magn um with coronal reformations. COMPARISON: None available. FINDINGS: There is a focus of tissue loss in the l ateral aspect of the left temporal lobe which appears remote natur e. No acute intracranial hemorrhage is present. There is no large vascular territory acute stroke. Ventricular caliber is normal. T he basal cisterns are patent. There is a remote infarct in the right cerebellar hemisphere as well. The orbits appear unremarkable. Minor soft tissue thickening is present within the ethmoid air cells. There is opacification of the right mastoid air c ells. The left mastoid air cells are clear. IMPRESSION: 1. No evidence of acute intracranial hem orrhage. 2. 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 If there is high clinical concern for ac [place] stroke, MRI may be helpful. 3. Right mastoid air cell opacification. I have personally reviewed the images an d the above interpretation and agree with the findings. Procedure Note Hany Mc MD - 07/09/2017 CT HEAD WO CONTRAST 07/09/2017 6:50 PM SIGNS AND SYMPTOMS/COMMENTS: stroke, left arm weakness, h/o CVA TECHNIQUE: Axial non-contrast CT images of the head were obtained from the vertex through the foramen magn um with coronal reformations. COMPARISON: None available. FINDINGS: There is a focus of tissue loss in the l ateral aspect of the left temporal lobe which appears remote natur e. No acute intracranial hemorrhage is present. There is no large vascular territory acute stroke. Ventricular caliber is normal. T he basal cisterns are patent. There is a remote infarct in the right cerebellar hemisphere as well. The orbits appear unremarkable. Minor soft tissue thickening is present within the ethmoid air cells. There is opacification of the right mastoid air c ells. The left mastoid air cells are clear. IMPRESSION: 1. No evidence of acute intracranial hem orrhage. 2. 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 If there is high clinical concern for ac [place] stroke, MRI may be helpful. 3. Right mastoid air cell opacification. I have personally reviewed the images an d the above interpretation and agree with the findings. Performing Organization Address City/State/ZIP Code Phon e Number [facility] PHOSPHORUS (07/09/2017 18:02 EDT) Pathologist Sig nature Phosphorus 3.0 2.5 - 4.5 mg/dl [facility] SERVICES Specimen Blood Performing Organization Address City/[facility] [place]/ZIP Code Phon e Number [facility] [address] [place] [address] SERVICES CALCIUM (07/09/2017 18:02 EDT) Pathologist Sig nature Calcium 9.7 8.5 - 10.5 mg/dl [facility] SERVICES Calculated Calcium 9.5 8.5 - 10.5 mg/dl [facility] SERVICES Specimen Blood Performing Organization Address City/[facility] [place]/ZIP Code Phon e Number [facility] [address] [place] [address] SERVICES (ABNORMAL) LAMOTRIGINE (07/09/2017 18:02 EDT) Lamotrigine, 1.2 (L) 2.5 - 15.0 [facility] Plasma or Serum Comment: mcg/mL [facility] (Note) SERVICES . ADDITIONAL INFORMATION ------ This test was developed and its performance characteri stics determined by [facility] in a manner consistent with CLIA requirements. This test has not been cleared or approv ed by the U.S. Food and Drug Administration. Performed by: [facility]: [address], [place] [address], Lab Dir: Cody Easton II, M.D., Ph.D. Specimen Blood Performing Organization Address [facility] [place]/[facility] Phon e Number [facility] [address] [place] [address] SERVICES HEPATIC FUNCTION PANEL (ALB,ALK PHOS,ALT,AST,DBIL,TOT CATALINA,TOT PROT) (07/09/2017 18:02 EDT) Pathologist Sig nature Albumin 4.3 3.4 - 4.9 g/dl [facility] SERVICES Total Protein 6.6 6.3 - 8.2 g/dl [facility] SERVICES Total Alkaline 126 38 - 126 U/L [facility] Phosphatase LABORATORY SERVICES ALT 31 21 - 72 U/L [facility] SERVICES AST 23 15 - 46 U/L [facility] SERVICES Unconjugated Bilirubin 0.1 0.0 - 1.1 mg/dl [facility] SERVICES Conjugated Bilirubin 0.0 0.0 - 0.3 mg/dl [facility] SERVICES Bilirubin, Total 0.5 <1.4 mg/dl [facility] SERVICES Specimen Blood Performing Organization Address [facility] [place]/[facility] Phon e Number [facility] [address] [place] [address] SERVICES CK (07/09/2017 18:02 EDT) Pathologist Sig nature CK 146 0 - 250 U/L [facility] SERVICES Specimen Blood Performing Organization Address City/[facility] [place]/ZIP [facility] Phon e Number [facility] [address] [place] [address] SERVICES (ABNORMAL) LACTIC ACID (07/09/2017 18:02 EDT) Pathologist Sig nature Lactic Acid 10.1 (HH) <2.0 mmol/L [facility] SERVICES Specimen Blood Performing Organization Address [facility] [place]/[facility] Phon e Number [facility] [address] [place] [address] SERVICES (ABNORMAL) PHENYTOIN (07/09/2017 18:02 EDT) Phenytoin 7.5 (L)Comment: New 10.0 - 20.0 [facility] methodology in use ug/ml LABORATORY SERVICES 03/15/17. Specimen Blood specimen (specimen) - Blood Performing Organization Address City/State/ZIP Code Phon e Number [facility] [address] [place] [address] SERVICES ETHANOL, BLOOD (07/09/2017 18:02 EDT) Pathologist Sig nature Ethanol <10 <10 mg/dl [facility] SERVICES Specimen Blood specimen (specimen) - Blood Performing Organization Address City/[facility] [place]/ZIP Code Phon e Number [facility] [address] [place] [address] SERVICES (ABNORMAL) PROFILE ED CARDIAC PACK (07/09/2017 18:02 EDT) Sodium 144 136 - 145 [facility] mEq/L [facility] SERVICES Potassium 4.0 3.5 - 5.0 [facility] mEq/L [facility] SERVICES Chloride 109 96 - 110 [facility] mEq/L [facility] SERVICES CO2 17 (L) 22 - 32 [facility] mEq/L [facility] SERVICES BUN 15 10 - 26 [facility] mg/dl [facility] SERVICES Creatinine 1.00 0.66 - 1.25 [facility] mg/dl [facility] GFR, Calculated 80 >60 [facility] Comment: ml/min/1.73m [facility] eGFR calculated using CKD-EPI equation for 2 SERVICES non Americans. Multiply eGFR by 1.16 for Americans. Magnesium 1.9 1.7 - 2.8 [facility] mg/dl [facility] WBC 7.50 4.0 - 10.4 [facility] K/cmm [facility] RBC 4.70 4.36 - 5.78 [facility] M/m [facility] Hemoglobin 15.1 13.8 - 17.3 [facility] gm/dl [facility] HCT 42.4 39.5 - 50.2 [facility] % [facility] MCV 90 81 - 95 fl [facility] SERVICES MCH 32.1 27.6 - 33.0 [facility] pg [facility] MCHC 35.6 32.8 - 36.4 [facility] gm/dl [facility] RDW-CV 12.9 <14.2 % [facility] SERVICES RDW-SD 43.0 <46.0 fl [facility] SERVICES PLT 135 (L) 141 - 377 [facility] LABORATORY SERVICES MPV 9.6 9.5 - 12.7 [facility] LABORATORY SERVICES Neutrophils 53.9 % [facility] SERVICES Lymphocytes 26.8 % [facility] SERVICES Monocytes 13.3 % [facility] Eosinophils 4.8 % [facility] Basophils 0.9 % [facility] SERVICES Immature Grans 0.3 % [facility] SERVICES ABS Neutrophils 4.04 2.20 - 8.85 [facility] LABORATORY SERVICES ABS Lymphs 2.01 1.09 - 3.30 [facility] LABORATORY SERVICES ABS Monocytes 1.00 (H) 0.1 - 0.8 [facility] LABORATORY SERVICES ABS Eosinophils 0.36 0.03 - 0.61 [facility] LABORATORY SERVICES ABS Basophils 0.07 0.01 - 0.11 [facility] LABORATORY SERVICES ABS Immature Grans 0.02 0 - 0.06 [facility] LABORATORY SERVICES Type of Diff: Automated [facility] SERVICES Troponin I (ng/mL) <0.034 <0.034 ng/ml [facility] SERVICES Glucose, Screening 87 70 - 100 [facility] mg/dl [facility] Hold Blue Top Sample for [facility] coagulation will be [facility] discarded after 4 SERVICES hours Specimen Blood specimen (specimen) - Blood Performing Organization Address City/State/ZIP Code Phon e Number [facility] [address] [place] [address] SERVICES documented in this encounter Visit Diagnoses Diagnosis Nonepileptic episode (HCC-CMS) ([facility]) - P rimary Other convulsions Seizure (HCC-CMS) ([facility]) Other convulsions Spells of decreased attentiveness Other general symptoms documented in this encounter Administered Medications Inactive Administered Medications - up to 3 most recent administrations Medication Order MAR Action Action Date Dose Rate Site aspirin EC tablet 81 mg Given 07/11/2017 9:44 EDT 81 mg 81 mg, oral, DAILY, First dose on 07/10/17 at 0900, Until Discontinued, Routine Given 07/10/2017 8:05 EDT 81 mg atorvastatin (LIPITOR) tablet 80 mg Given 07/11/2017 9:49 EDT 80 mg 80 mg, oral, DAILY, First dose on 07/10/17 at 0900, Until Discontinued, Routine Given 07/10/2017 8:04 EDT 80 mg citalopram (CELEXA) tablet 40 mg Given 07/11/2017 9:45 EDT 40 mg 40 mg, oral, DAILY, First dose on 07/10/17 at 0900, Until Discontinued, Routine Given 07/10/2017 8:05 EDT 40 mg docusate sodium (COLACE) capsule 100 mg Given 07/11/2017 9:49 EDT 100 mg 100 mg, oral, DAILY, First dose on 07/10/17 at 0900, Until Discontinued, Routine Given 07/10/2017 8:04 EDT 100 mg enoxaparin (LOVENOX) injection 40 mg Given 07/11/2017 9:46 EDT 40 mg 40 mg, subcutaneous, DAILY, First dose on 07/10/17 at 0900, Until Discontinued, Routine Given 07/10/2017 8:05 EDT 40 mg fluticasone (FLOVENT) 110 mcg/actuation inhaler Given 07/11/2017 8:01 EDT 2 Puffs 2 Puff 2 Puff, inhalation, 2 TIMES DAILY (0900 & 2100), First dose on 07/10/17 at 0045, Until Discontinued, Routine Given 07/10/2017 21:09 EDT 2 Puffs Given 07/10/2017 8:53 EDT 2 Puffs HYDROcodone-acetaminophen (NORCO) 5-325 mg Given 07/11/2017 16:0 6 EDT 1 Tablet tablet 1 Tab 1 Tablet, oral, EVERY 6 HOURS PRN, Starting on 07/10/17 at 0746, Until 07/11/17 at 1821, Pain, Routine Given 07/10/2017 21:30 EDT 1 Tablet Given 07/10/2017 8:04 EDT 1 Tablet lactated ringers (LR) infusion Rate Documented 07/10/2017 7:45 EDT 75 mL/hr at 75 mL/hr, intravenous, CONTINUOUS, Starting on 07/10/17 at 0045, Until 07/11/17 at 0101, Routine New Bag 07/10/2017 1:02 EDT 75 mL/hr lactated ringers BOLUS 1,000 mL New Bag 07/09/2017 21:46 EDT 1,000 mL 1,000 mL, intravenous, NOW X1, 1 dose, On Wed07/09/17 at 2145, Routine lamoTRIgine (LAMICTAL) tablet 100 mg Given 07/11/2017 9:44 EDT 100 mg 100 mg, oral, DAILY, First dose on 07/10/17 at 0900, Until Discontinued, Routine Given 07/10/2017 8:05 EDT 100 mg levETIRAcetam (KEPPRA) 2,000 mg in sodium Given 07/09/2017 20:37 EDT 2,000 mg chloride (NS) 0.9 % 100 mL IVPB 2,000 mg, intravenous, Administer over 15 Minutes, NOW X1, 1 dose, On Wed07/09/17 at 2015, STAT levETIRAcetam (KEPPRA) tablet 1,000 mg Given 07/10/2017 8:05 EDT 1,000 mg 1,000 mg, oral, 2 TIMES DAILY (0900 & 2100), First dose on Wed07/10/17 at 0900, Until Discontinued, Routine lisinopril (PRINIVIL, ZESTRIL) tablet 5 mg Given 07/11/2017 9:45 EDT 5 mg 5 mg, oral, DAILY, First dose on Wed07/10/17 at 0900, Until Discontinued, Routine Given 07/10/2017 8:05 EDT 5 mg LORazepam (ATIVAN) 2 mg/mL injection 1 dose, Starting on Wed07/09/17 at 1835, Until Wed at 1840 LORazepam (ATIVAN) injection 2 mg Given 07/09/2017 18:40 EDT 2 mg 2 mg, intravenous, NOW X1, 1 dose, On Wed07/09/17 at 1845, STAT LORazepam (ATIVAN) injection 2 mg Given 07/09/2017 21:13 EDT 2 mg 2 mg, intravenous, NOW X1, 1 dose, On Wed07/09/17 at 2115, Routine pantoprazole (PROTONIX) tablet 40 mg Given 07/11/2017 9:49 EDT 40 mg 40 mg, oral, DAILY, First dose on 07/10/17 at 0900, Until Discontinued Given 07/10/2017 8:04 EDT 40 mg phenytoin (DILANTIN) chewable tablet 100 mg Given 07/10/2017 8:05 EDT 100 mg 100 mg, oral, DAILY, First dose on 07/10/17 at 0900, Until Discontinued, Routine phenytoin (DILANTIN) chewable tablet 125 mg 125 mg, oral, DAILY, First dose (after l ast modification) on 07/12/17 at 0900, Until Discontinued, Routine phenytoin (DILANTIN) chewable tablet 130 mg Given 07/11/2017 9:45 EDT 130 mg 130 mg, oral, DAILY, First dose (after last modification) on 07/11/17 at 0900, Until Discontinued, Routine phenytoin (DILANTIN) chewable tablet 200 mg Given 07/10/2017 20:05 EDT 200 mg 200 mg, oral, AT BEDTIME, First dose (after last modification) on 07/10/17 at 0100, Until Discontinued, Routine Given 07/10/2017 1:41 EDT 200 mg documented in this encounter Discontinued Medications Medication Sig Discontinue Reason Start Date End Date phenytoin (DILANTIN) 50 Take 100 mg by mouth 07/11/2017 mg chewable tablet daily. fluticasone (FLOVENT Inhale 88 mcg as 08/2017 HFA) 44 mcg/actuation directed 2 times inhaler daily. documented as of this encounter Historical Medications This list may reflect changes made after this encounter. Medication Sig Dispensed Refills Start Date End Date lamoTRIgine (LAMICTAL) Take 100 mg by mouth 2 0 100 mg tablet times daily. docusate sodium Take 100 mg by mouth 0 (COLACE) 100 mg capsule daily. nitroGLYCERIN Place 0.4 mg under the 0 (NITROSTAT) 0.4 mg SL tongue every 5 minutes tablet as needed for Chest Pain. levalbuterol (XOPENEX) Take 0.63 mg by 0 0.63 mg/3 mL nebulization every 6 nebulization hours as needed for Wheezing. fluticasone (FLOVENT) Inhale 2 Puffs as 0 110 mcg/actuation directed 2 times inhaler daily. citalopram (CELEXA) 20 Take 40 mg by mouth 0 mg tablet daily. lisinopril (PRINIVIL, Take 5 mg by mouth 0 ZESTRIL) 5 mg tablet daily. gabapentin (NEURONTIN) Take 600 mg by mouth 4 0 400 mg capsule times daily. atorvastatin (LIPITOR) Take 80 mg by mouth 0 40 mg tablet daily. HYDROcodone-acetaminoph Take 2 Tabs by mouth 2 0 en (VICODIN) 5-300 mg times daily as needed tablet for Pain. traZODone (DESYREL) 100 Take 100 mg by mouth 0 mg tablet at bedtime as needed for Sleep. meloxicam (MOBIC) 15 mg Take 15 mg by mouth 0 05/31/2020 tablet daily. fluticasone (FLOVENT Inhale 88 mcg as 0 07/11/2017 HFA) 44 mcg/actuation directed 2 times inhaler daily. omeprazole (PRILOSEC) Take 20 mg by mouth 0 05/31/2020 20 mg capsule daily. phenytoin (DILANTIN) 50 Take 200 mg by mouth 0 05/31/2020 mg chewable tablet at bedtime. phenytoin (DILANTIN) 50 Take 100 mg by mouth 0 07/11/2017 mg chewable tablet daily. aspirin 81 mg EC tablet Take 81 mg by mouth 0 05/31/2020 daily. hydrOXYzine (ATARAX) 25 Take 25 mg by mouth 0 05/31/2020 mg tablet every 6 hours as needed for Itching or Anxiety. added in this encounter Active and Recently Administered Medications Times are shown in EDT. Scheduled Medication Order 07/09/2017 07/10/2017 07/11/2017 aspirin EC tablet 81 mg 0805 (Given - Provider: Mary Jones RN) 0944 (Given - Provider: Soraya Ellis, TRES) 81 mg, oral, DAILY, First dose on 07/10/17 at 0900, Until Discontinued, Routine atorvastatin (LIPITOR) tablet 80 mg 0804 (Given - Provider: Mary Jones RN) 0949 (Given - Provider: Soraya salomon, TRES) 80 mg, oral, DAILY, First dose on 07/10/17 at 0900, Until Discontinued, Routine citalopram (CELEXA) tablet 40 mg 0805 (Lizzie beltreen - Provider: Mary Jones RN) 0945 (Given - Provider: Soraya salomon, TRES) 40 mg, oral, DAILY, First dose on 07/10/17 at 0900, Until Discontinued, Routine docusate sodium (COLACE) capsule 100 mg 0804 (Given - Provider: Mary Jones RN) 0949 (Given - Provider: Soraya salomon, TRES) 100 mg, oral, DAILY, First dose on Sat at 0900, Until Discontinued, Routine enoxaparin (LOVENOX) injection 40 mg 080 5 (Given - Provider: Mary Jones RN) 0946 (Given - Provider: Soraya salomon, TRES) 40 mg, subcutaneous, DAILY, First dose o n Wed07/10/17 at 0900, Until Discontinued, Routine fluticasone (FLOVENT) 110 mcg/actuation inhaler 2 Puff 0725 (Hold - Provider: Mary Jones RN - Reason: Other)0853 (Given - Provider: Haris Freitas, RT)210 (Given - Provider: Renzo Alvarado, RT) 08 (Given - Provider: Renae Goldberg, RT) 2 Puff, inhalation, 2 TIMES DAILY, First dose on Wed07/10/17 at 0045, Until Discontinued, Routine lactated ringers BOLUS 1,000 mL (COMPLETED) 2145 (New Bag - Provider: Renea Mercado, TRES) 1,000 mL, intravenous, NOW X1, 1 dose, Wed07/09/17 at 2145, Routi ne lamoTRIgine (LAMICTAL) tablet 100 mg 080 5 (Given - Provider: Mary Jones RN) 0944 (Given - Provider: Soraya salomon, TRES) 100 mg, oral, DAILY, First dose on Wed at 0900, Until Discontinued, Routine levETIRAcetam (KEPPRA) 2,000 mg in sodiu m chloride (NS) 0.9 % 100 mL IVPB (COMPLETED) 2036 (Given - Provider: Renea Mercado, TRES) 2,000 mg, intravenous, Administer over 1 5 Minutes, NOW X1, 1 dose, Wed07/09/17 at 2015, STAT levETIRAcetam (KEPPRA) tablet 1,000 mg (CANCELED) 0805 (Given - Provider: Mary Jones RN) 1,000 mg, oral, 2 TIMES DAILY, First dos e on Wed07/10/17 at 0900, Until Discontinued, Routine lisinopril (PRINIVIL, ZESTRIL) tablet 5 mg 0805 (Given - Provider: Mary Jones RN) 0945 (Given - Provider: Soraya salomon RN) 5 mg, oral, DAILY, First dose on Sat 07/10 at 0900, Until Discontinued, Routine LORazepam (ATIVAN) injection 2 mg (COMPLETED) 1839 (Gi sakina - Provider: Alissa Hall RN) 2 mg, intravenous, NOW X1, 1 dose, Wed07/09/17 at 1845, STAT LORazepam (ATIVAN) injection 2 mg (COMPLETED) 2112 (Gi sakina - Provider: Renea Mercado, TRES) 2 mg, intravenous, NOW X1, 1 dose, Wed07/09/17 at 2115, Routine pantoprazole (PROTONIX) tablet 40 mg 080 4 (Given - Provider: Mary Jones RN) 0949 (Given - Provider: Soraya salomon RN) 40 mg, oral, DAILY, First dose on Wed07/10/17 at 0900, Until Disc ontinued phenytoin (DILANTIN) chewable tablet 100 mg (CANCELED) 08 (Given - Provider: Mary Jones RN) 100 mg, oral, DAILY, First dose on Sat at 0900, Until Discontinued, Routine phenytoin (DILANTIN) chewable tablet 125 mg 125 mg, oral, DAILY, First dose on Mon at 0900, Until Discontinued, Routine phenytoin (DILANTIN) chewable tablet 130 mg 944 (Given - Provider: Soraya Ellis RN) 130 mg, oral, DAILY, First dose on Wed at 0900, Until Discontinued, Routine phenytoin (DILANTIN) chewable tablet 200 mg 140 (Given - Provider: Arely White RN)2004 (Given - Provider: Arely White RN) 200 mg, oral, AT BEDTIME, First dose on 07/10/17 at 0100, Until Discontinued, Routine Continuous Medication Order 07/09/2017 07/10/2017 07/11/2017 lactated ringers (LR) infusion 0102 (New Bag - Provider: Arely White RN)0745 (Rate Documented - Provider: Mary Jones, RN)1208 (Completed - Provider: Mary Jones RN - Comment: lupillo Felder) at 75 mL/hr, intravenous, CONTINUOUS, St arting 07/10/17 at 0045, Until 07/11/17 at 0101, Routine PRN Medication Order 07/09/2017 07/10/2017 07/11/2017 HYDROcodone-acetaminophen (NORCO) 5-325 mg tablet 1 Tab 0804 (Given - Provider: Mary Jones RN)2130 (Given - Provider: Arely White RN) 1606 (Given - Provider: Soraya Ellis RN) 1 Tab, oral, EVERY 6 HOURS PRN, Starting 07/10/17 at 0746, Until 07/11/17 at 1821, Pain, Routine nitroGLYCERIN (NITROSTAT) SL tablet 0.4 mg 0.4 mg, sublingual, EVERY 5 MIN PRN, Sta rting 07/10/17 at 0028, Until 07/11/17 at 1821, Chest Pain, Routine documented in this encounter Orders Medications Ordered That Might Not Have Count Last Ord ered Date First Ordered Date Been Administered phenytoin (DILANTIN) chewable tablet 125 1 017 mg acetaminophen (TYLENOL) tablet 1,000 mg 2 07/10/20 17 influenza vaccine 2015- (3 yr+) (PF) 1 7 (FLUZONE) IM injection-syringe 0.5 mL lamoTRIgine (LAMICTAL) tablet 100 mg 1 07/10/2017 LORazepam (ATIVAN) tablet 1 mg 1 07/10/2017 nitroGLYCERIN (NITROSTAT) SL tablet 0.4 mg 1 07/10 phenytoin (DILANTIN) chewable tablet 200 1 017 mg LORazepam (ATIVAN) 2 mg/mL injection 1 07/09/2017 LORazepam (ATIVAN) concentrated solution 2 1 07/09 mg EKG Orders Without Results Count Last Ordered Date Fir st Ordered Date EKG 12-LEAD 1 07/09/2017 Diet Count Last Ordered Date First Ordered Date DISCHARGE DIET 1 07/10/2017 Nursing Count Last Ordered Date First Ordered Date BATHING INSTRUCTIONS 1 07/10/2017 DRIVING INSTRUCTIONS 1 07/10/2017 OT Count Last Ordered Date First Ordered Date OT EVALUATION AND TREAT 1 07/10/2017 PT Count Last Ordered Date First Ordered Date PT EVALUATION AND TREAT 1 07/10/2017 Respiratory Care Count Last Ordered Date First Ordered Date DRY POWDERED OR METERED DOSE INHALER 2 07/10/2017 Admission Count Last Ordered Date First Ordered Date STATUS: INPATIENT ACUTE ADMISSION 1 07/10/2017 STATUS: OUTPATIENT OBSERVATION SERVICES 1 07/09/20 17 Transfer Count Last Ordered Date First Ordered Date NOTIFY PPS OF DISCHARGE COMPLETE 1 07/11/2017 NOTIFY PPS OF ROOM CHANGE COMPLETE 1 07/10/2017 PPS NOTIFICATION OF PATIENT ARRIVAL ON 7 UNIT TRANSFER PATIENT 1 07/10/2017 UR PATIENT STATUS CHANGE 2 07/10/2017 Discharge Count Last Ordered Date First Ordered Date DISCHARGE PATIENT 1 07/11/2017 Legal Count Last Ordered Date First Ordered Date MISCELLANEOUS DISCHARGE INSTRUCTIONS 1 07/10/2017 documented in this encounter Care Teams Lead Recreation Assistant Relationship Specialty Start Date End Date Randy Turner MD PCP - General 06/21/09 05/30/20 [address] [place] [address] documented as of this encounter
--- OUTSIDE RECORDS SUMMARY | 2022-08-15 01:43 | XMS_ITS | Encounter Summary ---
:[address] [facility] Address [address] [place] [address] Care Team Providers Name Role Phone Randy Turner MD Primary Care Provider [phone] Encounter Details Date Type Department Care Team Description 07/10/2017 Hospital Encounter [facility] Neurophysiology - Ct in [place] [address] [place] [address] Social History Tobacco Use Types Packs/Day Years [...] or older) documented as of this encounter Medications at [...] 81 mg by mouth 0 05/31/2020 daily. fluticasone (FLOVENT Inhale 88 mcg as 0 07/11/2017 HFA) 44 mcg/actuation directed 2 times inhaler daily. hydrOXYzine (ATARAX) 25 Take 25 mg [...] chewable tablet daily. phenytoin (DILANTIN) 50 Take 100 mg by mouth 0 07/11/2017 mg chewable tablet daily. phenytoin (DILANTIN) 50 Take 200 mg by mouth 0 05/31/2020 mg chewable tablet at bedtime. documented as of this encounter Discharge Disposition Disposition Code Departure Means Destination Home or Self [facility] documented in this encounter Plan of Treatment Not on filedocumented as of this encounter Procedures Procedure Name Priority Date/Time Associated Diagnosis Comme nts ECG REPORT - SCANNED 07/14/2017 13:44 EDT ECG REPORT - SCANNED 07/14/2017 13:44 EDT ECG REPORT - SCANNED 07/14/2017 9:58 EDT ECG REPORT - SCANNED 07/14/2017 8:25 EDT documented in this encounter Visit Diagnoses Not on filedocumented in this encounter Orders Procedures Count Last Ordered Date First Ordered Date ECG REPORT - SCANNED 4 07/14/2017 documented in this encounter Care Teams Shoulder Boner Relationship Specialty Start Date End Date Randy Turner MD PCP - General 06/21/09 05/30/[address] [place] [id number] documented as of this encounter
--- OUTSIDE RECORDS SUMMARY | 2022-08-15 01:43 | XMS_ITS | Encounter Summary ---
:1955 Author Organization [facility] Address [address] [place] [address] Care Team Providers Name Role Phone Randy Turner MD Primary Care Provider [phone] Encounter Details Date Type Department Care Team Description 06/10/2018 Hospital Encounter [facility] Unknown, Provider, [facility] [address] [facility] [phone] [place] [address] (Work) [phone] Social History Tobacco Use Types Packs/Day Years [...] Code Departure Means Destination Home or Self [facility] documented in this encounter Plan of Treatment Not on filedocumented as of this encounter Visit Diagnoses Not on filedocumented in this encounter Care Teams Chimney Builder Relationship Specialty Start Date End Date Randy Turner MD PCP - General 06/21/09 05/30/[address] [place] [phone] documented as of this encounter
--- OUTSIDE RECORDS SUMMARY | 2022-08-15 01:43 | XMS_ITS | Encounter Summary ---
:1955 Author Organization [facility] Address [address] [place] [address] Care Team Providers Name Role Phone Randy Turner MD Primary Care Provider [phone] Aissatou Briggs NP Primary Care Provider Encounter Details Date Type Department Care Team Description 02/22/2020 Lab Requisition [facility] Unknown, Provider, Pathology & Laboratory [facility] [address] [facility] [place] [address] Social History Tobacco Use Types Packs/Day Years [...] Diagnosis Comme nts COVID-19 TEST [facility] Today 02/22/2020 14:30 LAB PCR EDT COVID-19 TESTING Routine 02/22/2020 14:30 Results for this EDT procedure are i n the results section. documented in this encounter Results COVID-19 TEST [facility] LAB PCR (02/22/2020 14:30 EDT) Specimen Swab - Entire nasopharynx (body structur e) Performing Organization Address [facility] Code Phon e Number [facility] [address] [place] [address] SERVICES COVID-19 TESTING (02/22/2020 14:30 EDT) COVID-19 rt-PCR Negative Negative [facility] MEDICAL Result Comment: CENTER LABORATORY Negative results do not prec lude 2019-nCoV infection and should not be used as the sole basis for treatment or other patient management decisions. Negative results must be combined with clinical observa SERVICES tions, patient history, and epidemiological informatio n. This test has not been FDA c leared or approved. This test has been internally validated, but independent review and determination of emergency use authorization ??(EUA) by the FDA is pending. Performed on the [employer] [address] Fast Performing Lab [facility] Lab [facility] SERVICES Specimen Swab - Entire nasopharynx (body structur e) Performing Organization Address [facility] Phon e Number [facility] [address] [place] [address] SERVICES documented in this encounter Visit Diagnoses Not on filedocumented in this encounter Additional Health Concerns Infection Onset Date Last Indicated Resolved Time R/O COVID-19 05/12/2020 05/12/2020 05/17/2020 22:16 EDT documented as of this encounter Care Teams Senior Android Software Engineer Relationship Specialty Start Date End Date Randy Turner MD PCP - General 06/21/09 05/30/[address] [place] [phone] Aissatou Briggs NP PCP - General 05/31/[address] [place] [id number] documented as of this encounter
--- OUTSIDE RECORDS SUMMARY | 2022-08-15 01:43 | XMS_ITS | Encounter Summary ---
:1955 Author Organization [facility] Address [address] [place] [address] Care Team Providers Name Role Phone Randy Turner MD Primary Care Provider [phone] Encounter Details Date Type Department Care Team Description 06/10/2018 Results Only [facility] Tiera Holbrook, DO [phone] [facility] [place], [place] [id number] (Wo rk) Social History Tobacco Use Types [...] Priority Date/Time Associated Diagnosis Comme [facility] SURGICAL PATHOLOGY Routine 06/10/2018 15:40 Resul ts for this EDT procedure are i n the results section. documented in this encounter Results SURGICAL PATHOLOGY (06/10/2018 15:40 EDT) Pathology SURGICAL PATHOLOGY REPORT [facility] MEDICAL Report: Reports generated via electronic interface conta in original data; CENTER however they are lacking the format of the original re port. LABORATORY Caution should be taken when reading/interpretin g unformatted reports. SERVICES Name: ? JUNAID PÉREZ ? Accession #: ? [id number] ? : ? 1955 (Age: [age]) ??M ? Collect Date: ? 06/10/2018 ? Location: ? [facility] ? Receive Date: ? 06/10/20 18 ? Provider: TIERA HOLBROOK DO Copy to: NANCY VILLAVICENCIO ELECTRO MECHANICAL SOLAR TECHNICIAN ? Final Pathologic Diagnosis: STOMACH, ANTRUM, BIOPSY: - Erosive gastritis with prominent eosinophil componen t of lamina propria inflammation. - Immunohistochemical stain for Helicobacter pylori is negative. - See comment. Comment: The gastric antral biopsy shows histologic features of erosion and secondary regeneration/repair. ??In addition, there is a marked eosinophilic component including eosinophilic microabscesses within the gastr ic lamina propria. Immunohistochemical stain for Helicobact er pylori is negative. ??Overall these histologic changes are most suggestive of a medication /drug effect; however, other entities including eosinophilic gastroenteritis cannot be excluded. Clinical correlation is required. ?? ANTIBODY(CLONE)(BLOCK):RESULT H. pylori (Rabbit Monoclonal (SP48), Sawmill) (Block 1 , 2): ??Negative NOTE: ??One or more of the reagents used in imm unoperoxidase testing in this case may not have been cleared or approved by the U.S. Food and Drug Administration (FDA). ??The FDA has determined that such clearance or approval is not necessary. ??These tests are used for clinical purposes. ??They should not be regarded as investigational or for research. ??These r eagents' performance characteristics have been de termined by the [facility] and/or by the referring labo spike. ??The positive and negative controls worked appropriately. ??If immunope roxidase staining has been performed on alcohol fixed cytology specimens, which has not been fully validated , the assays should be interpreted with caution and correlated with clinical data. ??This laboratory is certified under the Clinical Laboratory Improvement Amendments of 1988 (CLIA-88) as qualified to perform high complexity clinical labor atory testing. ?? Document reviewed and electronically signed by: RAMAN HUANG MD Report ??Date: 06/15/2018 11:46 By the signature above, the attending physician certif ies that he/she has personally conducted a gross and/or microscopic examin ation of the described specimens and rendered or confirmed the above diagnosi s. Specimen(s) Received: Gastric antrum bxs Clinical History: Hematemesis Gross Description: ? Received in formalin labelled with proper patient identification (initials S, D) and gastric antrum bx are nine p ink-olson tissues (0.2 x 0.2 x 0.2 cm to 0.3 x 0.2 x 0.2 cm). Entirely submitted in 1-3. KORTNEY Urbina (ASCP) 06/10/2018 3:59 PM End of Report Specimen Performing Organization Address City/State/ZIP Code Phon e Number [facility] [address] [place] [address] SERVICES documented in this encounter Visit Diagnoses Not on filedocumented in this encounter Care Teams Agriculture Laboratory Technician Relationship Specialty Start Date End Date Randy Turner MD PCP - General 06/21/09 05/30/[address] [place] [phone] documented as of this encounter
--- OUTSIDE RECORDS SUMMARY | 2022-08-15 01:43 | XMS_ITS | Encounter Summary ---
:1955 Author Organization [facility] Address [address] [place] [address] Care Team Providers Name Role Phone Randy Turner MD Primary Care Provider [phone] Encounter Details Date Type Department Care Team Description 12/01/2010 Results Only [facility] Estrada Choi MD Laboratory Services - [address] [place] [address] [address] [place] [address] [phone] Social History Tobacco Use Types Packs/Day Years Used Date Never Assessed Sex Assigned at Date Recorded Not on file documented as of this encounter Plan of Treatment Not on filedocumented as of this encounter Procedures Procedure Name Priority Date/Time Associated Diagnosis Comme [facility] SURGICAL PATHOLOGY Routine 12/01/2010 0:00 EST Re sults for this procedure are i n the results section. documented in this encounter Results SURGICAL PATHOLOGY (12/01/2010 0:00 EST) Pathology Report: SURGICAL PATHOLOGY REPORT ? [facility] Reports generated via Tango Card interface contain original data; ? LAB however they are lacking the format of the original report. ? Caution should be taken when reading/interpreting unformatted reports. ? Name: ? ELISA, JUNAID H ? Accession #: ? [id number] ? : ? 1955 (Age: 55) ??M ? Collec t Date: ? 12/01/2010 ? Location: ? [facility] ? R eceive Date: ? 12/02/2010 ? Provider: ESTRADA CHOI MD ? Copy to: RAMON Garcia D ? Final Pathologic Diagnosis: ? Tissue submitted as epigastric lipoma, excision: ? - Mature adipose tissue cons istent with clinical concern for benign lipoma. ? Document reviewed and electr onically signed by: ? SHYANNE ZANE MD ? Report ??Date: 12/03/2010 15 :34 ? By the signature above, the attending physician certifies that he/she has ? personally conducted a gross and/or microscopic examination of the described ? specimens and rendered or co nfirmed the above diagnosis. ? Specimen(s) Received: ? Epigastric lipoma ? Clinical History: ? Lipoma vs epigastric hernia ? Gross Description: ? Received in formalin labelled Elisa, Junaid and epigastric lipoma is ?? an encapsulated portion of t an-yellow lobulated adipose tissue measuring 1.5 x ?? 1.5 x 1.0 cm. ??The resectio n margin is inked black and the specimen is serially sectioned revealing homogene ous lobulated olson-yellow adipose tissue. ??Two ? customer response representative sections are submitted in one cassette. ??(J.D. Tessitore)/mms ? End of Report ? Specimen Performing Organization Address City/State/ZIP Code Phon e Number [facility] [address] [place] [address] SERVICES [facility] [address] [place] [address] documented in this encounter Visit Diagnoses Not on filedocumented in this encounter Care Teams Game Moderator Relationship Specialty Start Date End Date Randy Turner MD PCP - General 06/21/09 05/30/[address] [place] [phone] documented as of this encounter
--- OUTSIDE RECORDS SUMMARY | 2022-08-15 01:43 | XMS_ITS | Encounter Summary ---
:1955 Author Organization [facility] Address [address] [place] [address] Care Team Providers Name Role Phone Unknown, Provider Primary Care Provider Encounter Details Date Type Department Care Team Description 06/19/2009 Orders Only [facility] Estrada Spears MD [facility] [address] [place], [place] [address] [place] [address] [phone] Social History Tobacco Use Types Packs/Day Years Used Date Never Assessed Sex Assigned at Date Recorded Not on file documented as of this encounter Plan of Treatment Not on filedocumented as of this encounter Procedures Procedure Name Priority Date/Time Associated Diagnosis Comme nts SURGICAL PATHOLOGY Routine 06/19/2009 0:00 EDT Re sults for this procedure are i n the results section. documented in this encounter Results SURGICAL PATHOLOGY (06/19/2009 0:00 EDT) Pathology Report: SURGICAL PATHOLOGY REPORT ? [facility] Reports generated via electr ComActivity interface contain original data; ? LAB however they are lacking the format of the original report. ? Caution should be taken when reading/interpreting unformatted reports. ? Name: ? JUANA, JUNAID H ? Accession #: ? [id number] ? : ? 1955 (Age: 54) ??M ? Collec t Date: ? 06/19/2009 ? Location: ? [facility] ? R eceive Date: ? 06/20/2009 ? Provider: ESTRADA SHABAZZ MD ? Copy to: CHYNA MEIERDIERCKS MD ? Final Pathologic Diagnosis: ? A. ?Terminal il eum, biopsy: ? 1. ?Intestinal- type mucosa with no specific histopathologic diagnosis. ?? B. ?Colon, rand om biopsies: ? 1. ?Colonic muc robert with no specific histopathologic diagnosis. ? C. ?Rectum, bio psy: ? 1. ?Colorectal mucosa with no specific histopathologic diagnosis. ? Document reviewed and electr onically signed by: ? Eda Lester MD ? Report ??Date: 06/24/2009 16 :13 ? By the signature above, the attending physician certifies that he/she has ? personally conducted a gross and/or microscopic examination of the described ? specimens and rendered or co nfirmed the above diagnosis. ? Specimen(s) Received: ? A. ?Bx terminal ileum ? B. ? Bx random colon ? C. ? Rectum bx ? Clinical History: ? Diarrhea ? Gross Description: ? Received in Candelaria' s fixative labelled Junaid Pérez and dale terminal ileum are two olson-pink irre gular soft tissues measuring 0.1 x 0.1 x 0.1 cm to ?? 0.3 x 0.3 x 0.2 cm. ??The sp ecimens are submitted entirely as (A). ? [facility] labelled Junaid Pérez and bx random colon are four olson-pink irregular soft tissues ranging from 0.2 x 0.1 x 0.1 cm to 0.7 x 0.2 x 0.1 cm. ??The specim ens are entirely submitted as (B1) and (B2). ? Received in [employer]el[employer]'s fixat kim labelled Orange, Junaid and rectum bx are ?? three olson-pink irregular sof t tissues each measuring 0.2 x 0.2 x 0.1 cm. ??The ?? specimens are submitted enti rely as (C). (Sarbjit Hammer)/mpl ? End of Report ? Specimen Performing Organization Address City/State/[facility] Code Phon e Number [facility] [address] [place] [address] SERVICES [facility] [address] [place] [address] documented in this encounter Visit Diagnoses Not on filedocumented in this encounter Care Teams Contractor General Building Relationship Specialty Start Date End Date Unknown, Provider, PCP - General 06/20/09 06/20/09 documented as of this encounter
[2022-08-15] MEDS: Omnipaque 350 MG/ML 100 ML BTL IJ (01:58)
[2022-08-15 02:26] VITALS: BP 132/88; PULSE 127; RESP 19; O2SAT 95
--- NOTE | 2022-08-15 02:26 | DI.VRAD_ITS ---
Addendum created by Amando Hernandez MD on 08/15/2022 2:28:10 AM EDT: Findings were discussed with SHERON BEASLEY at 08/15/2022 2:27 AM EDT. Initial report created on 08/15/2022 2:26:14 AM EDT: PROCEDURE INFORMATION: Exam: CTA Head Without And With Contrast, Arteriography Exam date and time: 08/15/2022 1:56 AM Age: 67 years old Clinical indication: Stroke-like symptoms; Lt upper extremity and lt lower extremity weakness; Additional info: Left sided weakness, R/O stroke TECHNIQUE: Imaging protocol: Computed tomographic angiography of the head without and with contrast. Exam focused on the arteries. 3D rendering (Not supervised by radiologist): MIP and/or 3D reconstructed images were created by the technologist. Radiation optimization: All CT scans at this facility use at least one of these dose optimization techniques: automated exposure control; mA and/or kV adjustment per patient size (includes targeted exams where dose is matched to clinical indication); or iterative reconstruction. Contrast material: OMNI 350; Contrast volume: 100 ml; Contrast route: INTRAVENOUS (IV); Other technique: STROKE PROTOCOL was implemented. COMPARISON: CT BRAIN NECK CTA 09/04/2021 4:43 PM FINDINGS: ANTERIOR CIRCULATION: Right internal carotid artery: Intracranial segment is patent with no significant stenosis or occlusion. No aneurysm. Right middle cerebral artery: No occlusion or significant stenosis. No aneurysm. Right anterior cerebral artery: No occlusion or significant stenosis. No aneurysm. Left internal carotid artery: There is minimal calcification of the left carotid siphon with no hemodynamically significant stenosis. Left middle cerebral artery: No occlusion or significant stenosis. No aneurysm. Left anterior cerebral artery: No occlusion or significant stenosis. No aneurysm. POSTERIOR CIRCULATION: Right vertebral artery: No occlusion or significant stenosis. No aneurysm. Left vertebral artery: There is calcification of the distal left vertebral artery with approximately 50% stenosis of the lumen. Basilar artery: No occlusion or significant stenosis. No aneurysm. Right posterior cerebral artery: No occlusion or significant stenosis. No aneurysm. Left posterior cerebral artery: No occlusion or significant stenosis. No aneurysm. HEAD: Brain: Normal. No hemorrhage. Unremarkable white matter. No mass effect. Cerebral ventricles: Normal. No ventriculomegaly. Bones/joints: Unremarkable. No acute fracture. Paranasal sinuses: Visualized sinuses are normal. No fluid levels. Mastoid air cells: Visualized mastoids are normal. No mastoid effusion. Dental: The patient is edentulous. Soft tissues: Unremarkable. IMPRESSION: Arteriosclerotic changes with no hemodynamically significant stenosis. ASSESSMENT: ASPECTS ([place] Stroke Program Early CT Score) is 10. PROCEDURE INFORMATION: Exam: CTA Neck Without And With Contrast Exam date and time: 08/15/2022 1:56 AM Age: 67 years old Clinical indication: Stroke-like symptoms; Lt upper extremity and lt lower extremity weakness; Additional info: Left sided weakness, R/O stroke TECHNIQUE: Imaging protocol: Computed tomographic angiography of the neck without and with contrast. 3D rendering (Not supervised by radiologist): MIP and/or 3D reconstructed images were created by the technologist. Radiation optimization: All CT scans at this facility use at least one of these dose optimization techniques: automated exposure control; mA and/or kV adjustment per patient size (includes targeted exams where dose is matched to clinical indication); or iterative reconstruction. Contrast material: OMNI 350; Contrast volume: 100 ml; Contrast route: INTRAVENOUS (IV); COMPARISON: CT BRAIN NECK CTA 09/04/2021 4:43 PM FINDINGS: Right common carotid artery: No stenosis. No dissection or occlusion. Right internal carotid artery: There is calcification at the origin of the right internal carotid artery with no hemodynamically significant stenosis. There is some kinking of the mid right internal carotid artery. Right external carotid artery: No occlusion or stenosis of the origin. Left common carotid artery: There is minimal calcification involving the distal left common carotid artery with no hemodynamically significant stenosis. Left internal carotid artery: There is minimal calcification at the origin of the left internal carotid artery with no hemodynamically significant stenosis. There is tortuosity of the distal cervical portion of the left internal carotid artery. Left external carotid artery: No occlusion or stenosis of the origin. Right vertebral artery: No stenosis. No dissection or occlusion. Left vertebral artery: No stenosis. No dissection or occlusion. Dental: The patient is edentulous. Soft tissues: Normal. No significant soft tissue swelling. Bones/joints: Bony changes involving the cervical spine, as described on the CT scan of the cervical spine of today's date. IMPRESSION: Arteriosclerotic changes, as described above with no hemodynamically significant stenosis. REFERENCES: NASCET CRITERIA. The degree of stenosis in the cervical segment of the internal carotid artery is based on NASCET criteria. Normal is no stenosis. Mild is less than 50% stenosis. Moderate is 50-69% stenosis. Severe is 70% to 99% stenosis. Total occlusion is no detectable patent lumen. Dictated and Authenticated by: Amando Hernandez MD. Ordering:DON Leach MD
[2022-08-15 02:30] LABS: COVID-19 PCR Negative (Negative); Influenza A PCR Negative (Negative); Influenza B PCR Negative (Negative); RSV PCR Negative (Negative)
[2022-08-15 02:36] LABS: Source Nasopharynx
[2022-08-15] MEDS: Normal Saline 1,000 ML 1000 ML IV (02:45)
--- NOTE | 2022-08-15 13:08 | NUR.NOTE ---
Nursing Note: [address] [facility] Miguel; from the transfer center, called asking for the discharge summary on this patient. Per Federica, nursing tipple supervisor, I faxed the provider note to [phone].
== END 2022-08-15 02:48 | disposition short-term general hospital (02) ==
PROVIDERS: Emergency Provider Student in an Organized Health Care Education/Training Program; PCP Nurse Practitioner
DX: I69.992 Facial weakness following unspecified cerebrovascular disease (principal); M62.81 Muscle weakness (generalized); M53.2X9 Spinal instabilities, site unspecified; I50.9 Heart failure, unspecified; I48.92 Unspecified atrial flutter; I25.10 Atherosclerotic heart disease of native coronary artery without angina pectoris; J44.9 Chronic obstructive pulmonary disease, unspecified; Z87.820 Personal history of traumatic brain injury; Z79.02 Long term (current) use of antithrombotics/antiplatelets; Z79.01 Long term (current) use of anticoagulants; Z20.822 Contact with and (suspected) exposure to COVID-19; R29.710 NIHSS score 10; Z79.51 Long term (current) use of inhaled steroids; I11.0 Hypertensive heart disease with heart failure; I25.2 Old myocardial infarction; Z87.891 Personal history of nicotine dependence; G40.909 Epilepsy, unspecified, not intractable, without status epilepticus
CPT/HCPCS: 70496; 70498; 80053; 87637; 93005; 96360; 99291; 70450; 72125; 80320; 84443; 84484; 85025; 85610; 85730; 93010; J3490

== ENCOUNTER 2022-08-17 08:13 | Outpatient (CLI) | payer MEDICARE, SELFPAY | END 2022-08-17 08:14 | disposition home or self-care (01) | LOC: DI.CARD 08:15 | PROVIDERS: PCP Nurse Practitioner; Visit Provider Internal Medicine Cardiovascular Disease | CPT/HCPCS: 93010 ==

== ENCOUNTER 2022-08-31 10:48 | Outpatient (CLI) | payer MEDICARE, SELFPAY ==
--- NOTE | 2022-08-31 14:46 | W.CARDEVENT ---
Date of service: 08/31/22 Time of Service: 14:46 Cardiac Event Recorder Referring Provider:: Aissatou Briggs Indications:: Palpitations Cardiac Event Note: This is a 30-day cardiac event monitor Patient was in atrial flutter throughout the recording with an average heart rate of 90 Maximum heart rate was 150 Heart rates in general lower during sleep No patient symptoms were reported
== END 2022-08-31 10:49 | disposition home or self-care (01) ==
LOC: CARDOPNVT 10:48
PROVIDERS: PCP Nurse Practitioner; Visit Provider Internal Medicine Cardiovascular Disease
DX: R00.2 Palpitations (principal); I48.92 Unspecified atrial flutter
CPT/HCPCS: 93272

== ENCOUNTER 2022-09-07 09:35 | Emergency (ER) | payer MEDICARE, SELFPAY ==
[2022-09-07] VITALS (42 sets, daily range): BP systolic 86–120; BP diastolic 51–91; PULSE 47–144; RESP 10–25; TEMP 36.1; O2SAT 98
--- NOTE | 2022-09-07 09:30 | RT.EKG_ITS ---
APPROVED REPORT Exam: Resting ECG Reason for Exam: chest pain Patient Location: E HR:140 bpm ECG Measurements Heart Rate 140 AXIS IN 91 P 84 QRSd 147 QRS 38 QT 361 T -86 QTc 552 Conclusion Sinus tachycardia...rate> 99 Probable left ventricular hypertrophy...(RaVL+SV3)xQRSd >280 likely a-flutter at 140. normal axis. no STEMI
--- NOTE | 2022-09-07 10:00 | DI.RAD_ITS ---
Exam(s) XR PORTABLE CHEST AP EXAM: XR PORTABLE CHEST AP CLINICAL HISTORY: shortness. TECHNIQUE: 2D digital imaging was performed. COMPARISON: CR,XR XR PORTABLE CHEST AP from 07/12/2022 FINDINGS: Single AP portable view. Heart size is upper normal. The mediastinum is not widened. Lungs are clear. No infiltrates nor obvious pleural effusions. IMPRESSION: No acute pulmonary findings on this single AP portable view of the chest. DATA REPOSITORY: RADIATION DOSE DELIVERED:
[2022-09-07 10:27] LABS: Abs Immature Grans 0.02 10^3/uL (0.0-0.06); Absolute Basophil Count 0.05 10^3/uL (0.0-0.2); Absolute Eosinophil Count 0.39 10^3/uL (0.0-0.7); Absolute Monocyte Count 0.72 10^3/uL (0.1-0.8); Absolute Neutrophil Count 4.19 10^3/uL (1.2-6.7); Basophils % 0.7; Eosinophils % 5.8; HCT 45.3 % (40.0-50.0); HGB 15.1 g/dL (13.5-17.5); Immature Grans % 0.3; Lymphocytes % 20.7; MCH 30.5 pg (27.0-33.0); MCHC 33.3 % (32.0-36.0); MCV 92 fL (80-95); MPV 10.4 fL (8.0-11.0); Monocytes % 10.6; Neutrophils % 61.9; Platelet Count 172 10^3/uL (130-400); RBC 4.95 10^6/uL (4.36-5.78); RDW 13.6 % (11.8-14.1); RDW-SD 46.1 fL; WBC 6.77 10^3/uL (4.4-10.8)
[2022-09-07] MEDS: Metoprolol 5 MG/5 ML VIAL IVP (10:46)
[2022-09-07] MEDS: dilTIAZem CD 120 MG CAPCR 240 MG PO (10:46)
[2022-09-07 11:04] LABS: ALT 17 U/L (16-63); AST 17 U/L (15-37); Albumin 4.3 g/dL (3.4-5.0); Alkaline Phosphatase 128 U/L (46-116); Anion Gap 9.5 mmol/L (3-11); BUN 17 mg/dL (7-18); Bilirubin, Total 0.5 mg/dL (0.2-1.0); CO2 27.5 mmol/L (21.0-32.0); CREATININE 1.3 mg/dL (0.70-1.30); Calcium 9.1 mg/dL (8.5-10.1); Chloride 106 mmol/L (98-107); Estimated GFR 60.21 (mL/min/1.73m2); Glucose 115 mg/dL (74-106); Magnesium 1.9 mg/dL (1.8-2.4); NT-proBNP 1195 pg/mL (<300); Potassium 3.6 mmol/L (3.5-5.1); Sodium 143 mmol/L (136-145); TSH (W/Ref FT4) 0.58 uIU/mL (0.36-3.74); Total Protein 7.5 g/dL (6.4-8.2)
[2022-09-07 11:06] LABS: Troponin I 76 ng/L (<or=60)
[2022-09-07] MEDS: Normal Saline 500 ML IV (11:39)
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
[2022-09-07 12:56] LABS: Troponin I < 50 ng/L (<or=60)
[2022-09-07] MEDS: Clopidogrel 75 MG TAB PO (13:24)
[2022-09-07] MEDS: Apixaban 5 MG TAB PO (13:24)
--- NOTE | 2022-09-07 15:50 | NUR.NOTE ---
Nursing Note: Referral faxed to PCP for chest pain, atrial flutter; DAVID
== END 2022-09-07 15:15 | disposition home or self-care (01) ==
PROVIDERS: Emergency Provider Physician Assistant; PCP Nurse Practitioner
DX: I48.92 Unspecified atrial flutter (principal); I11.0 Hypertensive heart disease with heart failure; I50.9 Heart failure, unspecified; J44.9 Chronic obstructive pulmonary disease, unspecified; I25.2 Old myocardial infarction; Z79.01 Long term (current) use of anticoagulants
CPT/HCPCS: 80053; 93005; 96361; 96374; 99214; 99284; 71045; 83735; 83880; 84443; 84484; 85025; 93010; 99285

== ENCOUNTER 2022-09-14 17:52 | Inpatient (IN) | payer MEDICARE, SELFPAY ==
[2022-09-14] VITALS (64 sets, daily range): BP systolic 87–143; BP diastolic 61–105; PULSE 105–158; RESP 2–42; TEMP 37.1–37.4; O2SAT 91–99
--- NOTE | 2022-09-14 18:00 | RT.EKG_ITS ---
APPROVED REPORT Exam: Resting ECG Reason for Exam: tachy Patient Location: E HR:136 bpm ECG Measurements Heart Rate 136 AXIS AR 151 P 66 QRSd 84 QRS 46 QT 325 T 262 QTc 490 Conclusion Sinus tachycardia...rate> 99 Inferior infarct, age indeterminate...Q>35mS, T neg, II III aVF Nonspecific T abnormalities, lateral leads...T <-0.10mV, I aVL V5 V6
[2022-09-14] MEDS: dilTIAZem 25 MG/5 ML VIAL 15 MG IVP (18:21)
[2022-09-14 18:29] LABS: Abs Immature Grans 0.05 10^3/uL (0.0-0.06); Absolute Basophil Count 0.04 10^3/uL (0.0-0.2); Absolute Eosinophil Count 0.03 10^3/uL (0.0-0.7); Absolute Lymphocyte Count 0.72 10^3/uL (1.2-3.4); Absolute Monocyte Count 1.11 10^3/uL (0.1-0.8); Absolute Neutrophil Count 7.88 10^3/uL (1.2-6.7); Basophils % 0.4; Eosinophils % 0.3; HCT 36.5 % (40.0-50.0); HGB 12.5 g/dL (13.5-17.5); Immature Grans % 0.5; Lymphocytes % 7.3; MCHC 34.2 % (32.0-36.0); MCV 91 fL (80-95); MPV 10.5 fL (8.0-11.0); Monocytes % 11.3; Neutrophils % 80.2; Platelet Count 112 10^3/uL (130-400); RBC 4.03 10^6/uL (4.36-5.78); RDW 13.2 % (11.8-14.1); RDW-SD 43.8 fL; WBC 9.83 10^3/uL (4.4-10.8)
[2022-09-14 18:43] LABS: Source Nasal/Nares
[2022-09-14 18:44] LABS: Digoxin 0.96 ng/mL (0.90-2.00)
--- NOTE | 2022-09-14 18:45 | DI.CT_ITS ---
Exam(s) CT HEAD CERVICAL SPINE WO EXAM: CT HEAD CERVICAL SPINE WO CLINICAL HISTORY: fall, HI, confusion. TECHNIQUE: Imaging Protocol: Axial computed tomography images with coronal and sagittal reformatted images were created and reviewed COMPARISON: MR MRI - BRAIN W/WO CONTRAST from 08/25/[address] HEAD WO from 05/31/[address] HEAD WO from 07/10/[address] BRAIN NECK CTA from 08/15/2022 FINDINGS: BRAIN: No skull fractures. There is some mucosal thickening in the right maxillary sinus not associated with fluid level. Also mild mucosal thickening in the right sphenoid sinus also without fluid level. Some fluid is noted in the ethmoidal air cells. Frontal sinuses are clear. No evidence of intracranial hemorrhage. Area of abnormal hypodensity is noted in the left temporal l obe both in and above the middle cranial fossa consistent with nonhemorrhagic infarct,, not acute as it was also evident on prior CT scan 07/10/2022. No obvious acute ischemic infarct evident. No vent riculomegaly. CERVICAL SPINE: There is no evidence of acute fracture. Multilevel degenerative changes and there has been multileve l surgical removal of posterior osseous left elements at C4 and C5 and C6 levels. Mild degenerative anterolisthesis of C4 upon C5. Some facet arthropathy but no jumped facets There is no significant facet joint malalignment. No significant osseous lesions evident. IMPRESSION: 1. No acute intracranial findings. 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 No obvious new infarcts. If clinically indicated follow-up MRI with diffus ion imaging can be performed. 2. Multilevel degenerative changes in the cervical spine as well as evidence of previous multilevel d ecompression laminectomies. However, there is no evidence of acute cervical spine fracture, malalign ment, nor acute compromise of the cervical spinal canal. RADIATION DOSE DELIVERED: 1,430.92mGy.cm Total DLP DATA REPOSITORY: All CT scans at this facility are submitted to the National Radiology Data Registry (NRDR) Dose Index Registry (DIR) with the [employer] ([employer]). RADIATION OPTIMIZATION: All CT scans at this facility use at least one of these dose optimization te chniques: automated exposure control; mA and/or kV adjustment per patient size (includes targeted exa ms where dose is matched to clinical indication); or iterative reconstruction.
--- NOTE | 2022-09-14 18:53 | DI.CT_ITS ---
Exam(s) CT CHEST PE ABD PELVIS W EXAM: CT CHEST PE ABD PELVIS W CLINICAL HISTORY: shortness of breath. TECHNIQUE: Imaging Protocol: Axial CT angiography was performed with multi-slice acquisition and m ulti-planar and/or 3D reconstructions. CONTRAST MATERIAL: Intravenous: Omnipaque 350 Contrast volume:100 ml Oral: None COMPARISON: CT CT BRAIN NECK CTA from 08/15/2022 FINDINGS: CHEST: PULMONARY ARTERIES: There are no intra-arterial filling defects to suggest the presence of acute pulm onary emboli. LUNGS: There are both ground-glass and confluent infiltrates involving all segments of both lungs and most confluent in the lower lobes posterior basal segments of both lower lobes bilaterally..There is a small left pleural effusion. MEDIASTINUM: There is no hilar nor mediastinal adenopathy. Visualized thyroid unremarkable. CARDIAC: Heart size is normal. There is no pericardial effusion. There is no significant shift of t he interventricular septum.Caliber of the thoracic aorta is within normal limits. OSSEOUS: No significant osseous lesions.. ABDOMEN: There is no ascites. LIVER: There are no focal hepatic lesions nor dilatation of intrahepatic ducts. GALLBLADDER/BILIARY: No obvious gallbladder pathology. CBD is not dilated. PANCREAS: No evidence of pancreatic mass nor dilatation of the pancreatic duct. SPLEEN: Spleen is not enlarged. There are no intrasplenic lesions. Splenic and portal veins are ledezma nt. ADRENALS: There are no significant adrenal masses. KIDNEYS:No cysts evident. No calculi nor hydronephrosis. No solid renal masses. ABDOMINAL AORTA: Abdominal aorta is not enlarged. LYMPH NODES: There is no retroperitoneal or para-aortic adenopathy. ABDOMINAL WALL/GI: No evidence of significant anterior abdominal wall hernia. No bowel obstruction. PELVIS: LYMPH NODES: There is no intrapelvic nor inguinal adenopathy. GI: No evidence of appendicitis.No evidence of sigmoid diverticulitis. URINARY BLADDER: No calculi nor masses evident REPRODUCTIVE: Prostate size normal. OSSEOUS: No significant osseous lesions. IMPRESSION: 1. No evidence of acute pulmonary emboli nor pulmonary infarction. 2. However, there extensive bilateral pulmonary infiltrates, as described above. There is also a sma ll left pleural effusion.No significant intrathoracic adenopathy. 3. No acute findings in the abdomen and pelvis. No ascites First read by [facility]. RADIATION DOSE DELIVERED: 1,234.75mGy.cm Total DLP DATA REPOSITORY: All CT scans at this facility are submitted to the National Radiology Data Registry (NRDR) Dose Index Registry (DIR) with the [employer] (ACR). RADIATION OPTIMIZATION: All CT scans at this facility use at least one of these dose optimization te chniques: automated exposure control; mA and/or kV adjustment per patient size (includes targeted exa ms where dose is matched to clinical indication); or iterative reconstruction.
[2022-09-14 18:54] LABS: ALT 27 U/L (16-63); AST 31 U/L (15-37); Albumin 3.5 g/dL (3.4-5.0); Alkaline Phosphatase 143 U/L (46-116); Anion Gap 8.3 mmol/L (3-11); BUN 20 mg/dL (7-18); Bilirubin, Total 1.3 mg/dL (0.2-1.0); CO2 25.7 mmol/L (21.0-32.0); CREATININE 1.2 mg/dL (0.70-1.30); Chloride 100 mmol/L (98-107); Estimated GFR 66.28 (mL/min/1.73m2); Glucose 133 mg/dL (74-106); Magnesium 1.9 mg/dL (1.8-2.4); Potassium 3.8 mmol/L (3.5-5.1); Sodium 134 mmol/L (136-145); TSH (W/Ref FT4) 0.25 uIU/mL (0.36-3.74); Total Protein 7.1 g/dL (6.4-8.2)
[2022-09-14 18:56] LABS: Troponin I 125 ng/L (<or=60)
[2022-09-14 19:01] LABS: D-Dimer 874 ng/mlFEU (<500)
[2022-09-14 19:17] LABS: COVID-19 PCR Negative (Negative)
[2022-09-14 19:17] LABS: FREE T4 1.18 ng/dL (0.76-1.46); NT-proBNP 4362 pg/mL (<300)
[2022-09-14] MEDS: Omnipaque 350 MG/ML 100 ML BTL IJ (19:44)
[2022-09-14] MEDS: methylPREDNISolone SUCC 125 MG VIAL 80 MG IVP (19:48)
[2022-09-14] MEDS: Furosemide 20 MG/2 ML VIAL IVP (19:48)
[2022-09-14] MEDS: Albuterol/Ipratropium 3 ML UPD VIAL UPD ×2 (19:49→20:18)
[2022-09-14] MEDS: Normal Saline - Diluent 50 ML VIAL IJ (19:53)
[2022-09-14] MEDS: Normal Saline Flush 10 ML SYR IVP (19:55)
--- NOTE | 2022-09-14 20:00 | DI.VRAD_ITS ---
PROCEDURE INFORMATION: Exam: CT Head Without Contrast Exam date and time: 09/14/2022 7:23 PM Age: 67 years old Clinical indication: Injury or trauma; Blunt trauma (contusions or hematomas); Consciousness not specified; Altered mental status/memory loss; Confusion or disorientation; Other: None; Injury date: 09/12/22; Injury details: Fall, hi, confusion TECHNIQUE: Imaging protocol: Computed tomography of the head without contrast. Radiation optimization: All CT scans at this facility use at least one of these dose optimization techniques: automated exposure control; mA and/or kV adjustment per patient size (includes targeted exams where dose is matched to clinical indication); or iterative reconstruction. COMPARISON: CT HEAD CERVICAL SPINE WO 08/15/2022 12:58 AM FINDINGS: Brain: Cerebral sulci show bilateral symmetry with no supratentorial mass or mass effect detected. Brainstem and cerebellum are unremarkable. There is no evidence of acute intracranial hemorrhage. Cerebral ventricles: Ventricular and cisternal spaces are normal in size and configuration and there is no midline shift or hydrocephalus seen. Paranasal sinuses: Scattered maxilloethmoidal mucosal densities are identified. Mastoid air cells: There is opacification of the few pneumatized right-sided mastoid air cells. Bones/joints: Bony calvarium and skull base are intact and no acute fractures are detected. Soft tissues: Unremarkable. IMPRESSION: Unremarkable noncontrast head CT with no evidence of acute infarct, recent intracranial hemorrhage or hydrocephalus. No acute intracranial process is detected. PROCEDURE INFORMATION: Exam: CT Cervical Spine Without Contrast Exam date and time: 09/14/2022 7:23 PM Age: 67 years old Clinical indication: Injury or trauma; Blunt trauma (contusions or hematomas); Consciousness not specified; Altered mental status/memory loss; Confusion or disorientation; Other: None; Injury date: 09/12/22; Injury details: Fall, hi, confusion TECHNIQUE: Imaging protocol: Computed tomography of the cervical spine without contrast. Radiation optimization: All CT scans at this facility use at least one of these dose optimization techniques: automated exposure control; mA and/or kV adjustment per patient size (includes targeted exams where dose is matched to clinical indication); or iterative reconstruction. COMPARISON: CT HEAD CERVICAL SPINE WO 08/15/2022 12:58 AM FINDINGS: Bones/joints: There is arthrosis involving the anterior atlantodental interval with loss of joint space and marginal osteophyte formation and the odontoid process is grossly intact. There is grade 1 anterolisthesis of C4 upon C5 and there is gross preservation of vertebral body height throughout cervical levels with no vertebral body fractures or other significant subluxations detected. Laminectomy defect is seen involving the posterior elements between C3 and C7 and there is ankylosis seen involving the facet joints bilaterally at C3-C4 with no acute fractures detected involving the remaining posterior elements of the cervical spine. Chronic posttraumatic deformity possibly related to remote avulsion injury noted at the tip of the spinous process of T1. Discs/Spinal canal/Neural foramina: Loss of disc space height with posterior osteocartilaginous ridging is most significant at C4-C5, C5-C6 and C6-C7 resulting in canal narrowing and possible mass-effect upon the ventral cord which could be better evaluated with MRI. Uncovertebral and facet changes produce foraminal distortions/narrowings at multiple mid to lower cervical levels. Lungs: No pneumothorax or consolidation detected at the lung apices. Pleural effusion layers posteriorly at the left lung apex. Soft tissues: Unremarkable. IMPRESSION: Cervical spondylosis with central canal and foraminal narrowing as above. No acute cervical fractures are detected. Dictated and Authenticated by: Levon Rapp MD. Ordering:SPRING Nava MD
[2022-09-14 20:16] LABS: Lactate 1.6 mmol/L (0.6-1.4)
--- NOTE | 2022-09-14 20:27 | DI.VRAD_ITS ---
PROCEDURE INFORMATION: Exam: CTA Chest With Contrast Exam date and time: 09/14/2022 7:33 PM Age: 67 years old Clinical indication: Injury or trauma; Abdominal tenderness; Generalized; Cough and shortness of breath and other: Elevated d dimer; Blunt trauma (contusions or hematomas); Injury date: 09/12/22; Injury details: Fall, SOB, elevated d dimer; Prior surgery; Surgery date: 6+ months; Surgery type: Hernia repair TECHNIQUE: Imaging protocol: Computed tomographic angiography of the chest with contrast. 3D rendering (Not supervised by radiologist): MIP and/or 3D reconstructed images were created by the technologist. Radiation optimization: All CT scans at this facility use at least one of these dose optimization techniques: automated exposure control; mA and/or kV adjustment per patient size (includes targeted exams where dose is matched to clinical indication); or iterative reconstruction. Contrast material: OMNIPAQUE 350; Contrast volume: 100 ml; Contrast route: INTRAVENOUS (IV); COMPARISON: CT CHEST PE CTA 07/10/2022 4:24 PM FINDINGS: Pulmonary arteries: No pulmonary embolism identified. Aorta: No thoracic aortic aneurysm. Thyroid: Normal sized thyroid gland. Lungs: Extensive patchy ground-glass opacity and patchy alveolar consolidation, most concentrated at the lung bases. Smooth thickening of the interlobular pulmonary septa, most prominent at the lung bases. Pleural spaces: Small bilateral pleural effusions. No pneumothorax. Heart: Cardiomegaly with multichamber dilatation. Prominent dilatation of the left atrium and ventricle suggesting mitral valve dysfunction. Lymph nodes: No pathologically enlarged mediastinal or hilar lymph nodes. Bones/joints: No acute fracture seen among the bones of the chest. Spinal degenerative change with endplate irregularities and small Schmorl's nodes at multiple levels. Soft tissues: No gross soft tissue mass or fluid collection seen in the chest wall. IMPRESSION: 1. Extensive patchy ground-glass opacity and alveolar consolidation, most concentrated at the lung bases. Multifocal pneumonia is suspected although a component of alveolar pulmonary edema may also be present given other findings. 2. Smooth thickening of the interlobular pulmonary septa, most prominent at the lung bases, suggesting interstitial pulmonary edema. 3. Cardiomegaly with prominent dilatation of the left atrium and ventricle suggesting mitral valve dysfunction. 4. Small bilateral pleural effusions. PROCEDURE INFORMATION: Exam: CT Abdomen And Pelvis With Contrast Exam date and time: 09/14/2022 7:33 PM Age: 67 years old Clinical indication: Injury or trauma; Abdominal tenderness; Generalized; Cough and shortness of breath and other: Elevated d dimer; Blunt trauma (contusions or hematomas); Injury date: 09/12/22; Injury details: Fall, SOB, elevated d dimer; Prior surgery; Surgery date: 6+ months; Surgery type: Hernia repair TECHNIQUE: Imaging protocol: Computed tomography of the abdomen and pelvis with contrast. Radiation optimization: All CT scans at this facility use at least one of these dose optimization techniques: automated exposure control; mA and/or kV adjustment per patient size (includes targeted exams where dose is matched to clinical indication); or iterative reconstruction. Contrast material: OMNIPAQUE 350; Contrast volume: 100 ml; Contrast route: INTRAVENOUS (IV); COMPARISON: CT CHEST/ABD/PEL W 09/04/2021 5:00 PM FINDINGS: Liver: Possible fatty infiltration of the liver, difficult to confidently diagnose by CT imaging after administration of intravenous contrast. Gallbladder and bile ducts: Moderate gallbladder distention. Apparent pericholecystic fat stranding, best demonstrated by the sagittal series. No calcified gallstones or biliary dilatation. Pancreas: Normal appearing pancreas. Spleen: Normal appearing spleen. Adrenal glands: Normal appearing adrenal glands. Kidneys and ureters: Normal appearing kidneys. No hydronephrosis. No obstructing ureteral stones. Stomach and bowel: Stomach partially decompressed. No small bowel dilatation to suggest obstruction. Normal-appearing colon. No evidence of diverticulitis or colitis. Appendix: Normal appendix. Intraperitoneal space: No gross ascites or free air. Retroperitoneal space: Trace retroperitoneal fluid/fat stranding extending inferiorly along the left pelvic sidewall, nonspecific. Vasculature: Normal caliber abdominal aorta. Lymph nodes: No pathologically enlarged mesenteric, retroperitoneal, or pelvic sidewall lymph nodes. Urinary bladder: Normal-appearing urinary bladder, moderately distended. Reproductive: Normal-appearing prostate gland and seminal vesicles. Bones/joints: No acute fracture seen among the bones of the abdomen or pelvis. Spinal degenerative change with Schmorl's nodes at several levels. Apparent limbus vertebral body at L2. Soft tissues: No significant ventral or inguinal hernia. IMPRESSION: 1. No acute bowel pathology demonstrated. 2. Gallbladder moderately distended. Hazy pericholecystic fat stranding. No calcified gallstones. Clinical correlation is recommended to assess the possibility of acute cholecystitis. No biliary dilatation. 3. Trace retroperitoneal fat stranding/fluid with inferior extension along the left pelvic sidewall, nonspecific. Dictated and Authenticated by: Rick La MD. Ordering:SPRING Nava MD
[2022-09-14] MEDS: cefTRIAXone 2 GM/50 ML BAG IVPB (20:32)
[2022-09-14 20:36] LABS: Lipase 147 U/L (73-393)
[2022-09-14] MEDS: dilTIAZem 125 MG in Normal Saline 100 ML IV (20:36)
[2022-09-14 20:56] LABS: Procalcitonin 0.2 ng/mL
[2022-09-14 21:00] LABS: Bilirubin Negative (Negative); Blood Moderate (Negative); Clarity Clear (Clear); Glucose Negative (Negative); Ketones Negative (Negative); Leukocyte Esterase Negative (Negative); Nitrite Negative (Negative); Specific Gravity 1.015 (1.005-1.025)
[2022-09-14 21:06] LABS: Bacteria Negative HPF (Negative); C & S Indicated? No; Casts Negative LPF (Negative); Crystals Negative HPF (Negative); Epithelial Cells Rare HPF (Negative); Mucus Negative (Negative); WBC 0-2 HPF (0-5)
[2022-09-14 21:10] LABS: *AMPHETAMINES SCREEN URINE Negative (Negative); *BARBITURATES SCREEN URINE Negative (Negative); *BENZODIAZEPINES SCREEN URINE Negative (Negative); Cannabinoids THC Positive (Negative); Cocaine Screen,Urine Positive (Negative); METHADONE URINE SCREEN Negative (Negative); OPIATES URINE SCREEN Negative (Negative)
[2022-09-14 21:12] LABS: Tricyclic Antidepressants Negative (Negative)
[2022-09-14] MEDS: Furosemide 40 MG/4 ML VIAL 60 MG IVP (21:20)
[2022-09-14] MEDS: Digoxin 0.5 MG/2 ML AMP IVP (22:17)
--- NOTE | 2022-09-14 22:39 | W.ED.GENAD ---
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 (0.2-1.0) mg/dL AST (15-37) U/L ALT (16-63) U/L Alkaline Phosphatase (46-116) U/L Troponin I (<or=60) ng/L NT-Pro-B Natriuret Pep (<300) pg/mL Total Protein (6.4-8.2) g/dL Albumin (3.4-5.0) g/dL Lipase (73-393) U/L 147 Procalcitonin ng/mL TSH (0.36-3.74) uIU/mL Free T4 (0.76-1.46) ng/dL Urine Color (Yellow) Yellow Urine Clarity (Clear) Clear Urine pH (5-8) 7.0 Ur Specific [place] (1.005-1.025) 1.015 Urine Protein (Negative) mg/dL Trace H Urine Ketones (Negative) mg/dL Negative Urine Blood (Negative) Moderate H Urine Nitrite (Negative) Negative Urine Bilirubin (Negative) Negative Urine Urobilinogen (Up TO 0.2) EU/dL 1.0 H Ur Leukocyte Esterase (Negative) Negative Urine RBC (0-2) HPF 10-20 H Urine WBC (0-5) HPF 0-2 Ur Epithelial Cells (Negative) HPF Rare Urine Crystals (Negative) HPF Negative Urine Bacteria (Negative) HPF Negative Urine Casts (Negative) LPF Negative Urine Mucus (Negative) Negative Ur Culture Indicated? No Urine Glucose (Negative) mg/dL Negative Digoxin (0.90-2.00) ng/mL Urine Opiates Screen (Negative) Negative Urine Methadone Screen (Negative) Negative Ur Barbiturates Screen (Negative) Negative Ur Tricyclics Screen (Negative) Negative Ur Amphetamines Screen (Negative) Negative U Benzodiazepines Scrn (Negative) Negative Urine Cocaine Screen (Negative) Positive A Ur THC Screen (Negative) Positive A COVID-19 Source SARS-CoV-2 (PCR) (Negative) Critical Care Time Critical Care Time Attestation: 60 min, bipap, telemetry, oxygen supplementation, diuresis with IV lasix, brady placement, IV diltiazem, IV digoxin, cardiology consultation, and admission
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
[2022-09-14 23:44] LABS: Troponin I 141 ng/L (<or=60)
[2022-09-15] VITALS (210 sets, daily range): BP systolic 79–129; BP diastolic 39–98; PULSE 54–163; RESP 8–50; TEMP 36.6–37.7; O2SAT 92–99
[2022-09-15 06:55] LABS: Troponin I 104 ng/L (<or=60)
[2022-09-15 08:03] LABS: Lab Add On Test DONE
[2022-09-15 08:13] LABS: Anion Gap 10.8 mmol/L (3-11); BUN 22 mg/dL (7-18); CO2 27.2 mmol/L (21.0-32.0); CREATININE 1.4 mg/dL (0.70-1.30); Calcium 9.1 mg/dL (8.5-10.1); Chloride 100 mmol/L (98-107); Estimated GFR 55.09 (mL/min/1.73m2); Glucose 181 mg/dL (74-106); Magnesium 2.2 mg/dL (1.8-2.4); Potassium 3.2 mmol/L (3.5-5.1); Sodium 138 mmol/L (136-145)
--- NOTE | 2022-09-15 08:15 | RT.EKG_ITS ---
APPROVED REPORT Exam: Resting ECG Reason for Exam: [facility] Patient Location: I HR:136 bpm ECG Measurements Heart Rate 136 AXIS [place] 158 P 0 QRSd 160 QRS 2 QT 296 T 7 QTc 446 Conclusion Atrial flutter Nonspecific intraventricular conduction delay...QRSd >115mS, not LBBB/RBBB Inferior infarct, age indeterminate...Q>35mS, T neg, II III aVF
[2022-09-15 08:28] LABS: C-Reactive Protein > 25.00 mg/dL (0.0-0.3)
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
[2022-09-15] MEDS: Spironolactone 25 MG TAB PO (09:22)
[2022-09-15] MEDS: dilTIAZem 60 MG TAB PO ×3 (09:22→20:58)
[2022-09-15] MEDS: Ascorbic Acid 500 MG TAB PO ×2 (09:22→20:59)
[2022-09-15] MEDS: Citalopram 20 MG TAB 40 MG PO (09:23)
[2022-09-15] MEDS: dilTIAZem CD 120 MG CAPCR 240 MG PO (09:23)
[2022-09-15] MEDS: Clopidogrel 75 MG TAB PO (09:23)
[2022-09-15] MEDS: Ferrous Sulfate 325 MG TAB PO ×2 (09:23→20:59)
[2022-09-15] MEDS: Pregabalin 50 MG CAP 150 MG PO ×2 (09:23→20:58)
[2022-09-15] MEDS: lamoTRIgine 100 MG TAB PO ×2 (09:23→20:59)
[2022-09-15] MEDS: Digoxin 0.125 MG TAB PO (09:23)
[2022-09-15] MEDS: Furosemide 40 MG TAB PO (09:23)
[2022-09-15] MEDS: Baclofen 10 MG TAB PO ×3 (09:24→20:59)
[2022-09-15] MEDS: Folic Acid 1 MG TAB PO (09:24)
[2022-09-15] MEDS: Pantoprazole 40 MG TABCR PO (09:24)
[2022-09-15] MEDS: Magnesium Oxide 400 MG TAB PO (09:24)
[2022-09-15] MEDS: Finasteride 5 MG TAB PO (09:24)
[2022-09-15] MEDS: Cyanocobalamin 500 MCG TAB 1000 MCG PO (09:25)
[2022-09-15] MEDS: Amiodarone in Dextrose 360 MG/200 ML BAG 33.333 MG IV ×2 (09:25→13:14)
[2022-09-15] MEDS: Normal Saline Flush 10 ML SYR IVP (09:34)
--- NOTE | 2022-09-15 10:00 | RT.EKG_ITS ---
APPROVED REPORT Exam: Resting ECG Reason for Exam: change in rhythm Patient Location: I HR:87 bpm ECG Measurements Heart Rate 87 AXIS NJ [id number] P [id number] QRSd 99 QRS 34 QT 369 T 86 QTc 444 Conclusion Atrial flutter...A-rate 267 Inferior infarct, age indeterminate...Q>35mS, T neg, II III aVF Lateral leads are also involved...lat Q or ST-T abnormalities
[2022-09-15] MEDS: DOXYCYCLINE 100 MG in Normal Saline 100 ML IVPB (12:17)
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
[2022-09-15] MEDS: Ipratropium 0.5 MG/2.5 ML UPD VIAL UPD ×2 (16:25→19:40)
[2022-09-15] MEDS: Mometasone 220 MCG 14 DOSE INHALER 2 PUFF IH (19:44)
--- NOTE | 2022-09-15 20:13 | PGE_ITS ---
Date of Service Date of service: 09/15/22 Time of Service: 08:20 Assessment and Plan Assessment and plan (1) Ventricular tachycardia (paroxysmal): Status: Acute Assessment and plan: Start amiodarone gtt. Cardiac monitoring. Echo. Discussed with cardiology. (2) Atrial flutter with rapid ventricular response: Status: Acute Assessment and plan: As above Continue home cardizem for now (split up into cardizem 60 mg PO q6hrs). (3) (HFpEF) heart failure with preserved ejection fraction: Status: Acute Assessment and plan: In acute exacerbation. Diurese. Control rate. Obtain echo. Qualifiers: Heart failure chronicity: acute on chronic Qualified Code(s): I50.33 - Acute on chronic diastolic (congestive) heart failure (4) Hemoptysis: Status: Acute Assessment and plan: Hold anticoagluation. (5) Elevated troponin: Status: Acute Assessment and plan: Suspect demand ischemia given arrhythmic events (6) COPD with acute exacerbation: Status: Acute Assessment and plan: Does appear to have a bacterial component by chest imaging - antibiotics added. Consider steroids. Nebs: levalbuterol, atrovent (7) Cocaine abuse: Status: Chronic Assessment and plan: Advised to quit. Likely responsible for the cardiomyopathy and the arrhythmias (8) Hypokalemia: Status: Acute Assessment and plan: Replete, recheck in am (9) DVT prophylaxis: Status: Acute Assessment and plan: SCDs Holding eliquis in light of hemoptysis (10) Discharge planning issues: Status: Acute Assessment and plan: Full code C/s palliative care Total Critical Care Time 45 minutes. Subjective Subjective Interval history since last seen: Mr Pérez went into what looks like Vtach that resolved with coughing several times this morning. He was asymtpomatic during that time, denying dizziness, chest pain, palpitatio ns, shortness of breath, nausea. Had hemoptysis. Exam Narrative Exam Narrative: General: Pleasant middle-aged male who appears comfortable while in Vtach on the monitor, A&Ox3, NAD HEENT: EOMI, MMM Heart: RRR during episode of Vtach Lungs: faint rhonchi B Abdomen: soft, nontender, nondistended Extremities: trace edema BLEs Objective Last Vital Signs Temp 36.6 C 09/15/22 15:30 Pulse 86 09/15/22 19:40 Resp 16 09/15/22 19:40 BP 110/70 09/15/22 18:00 Pulse Ox 98 09/15/22 17:10 Laboratory Results - last 24 hr 09/14/22 09/14/22 09/14/22 20:09 20:09 20:30 VBG Lactate 1.6 H Sodium Potassium Chloride Carbon Dioxide Anion Gap BUN Creatinine Est GFR (CKD-EPI 2020) Glucose Calcium Magnesium Troponin I C-Reactive Protein Lipase 147 Procalcitonin 0.2 Urine Color Urine Clarity Urine pH Ur Specific [place] Urine Protein Urine Ketones Urine Blood Urine Nitrite Urine Bilirubin Urine Urobilinogen Ur Leukocyte Esterase Urine RBC Urine WBC Ur Epithelial Cells Urine Crystals Urine Bacteria Urine Casts Urine Mucus Ur Culture Indicated? Urine Glucose Urine Opiates Screen Negative Urine Methadone Screen Negative Ur Barbiturates Screen Negative Ur Tricyclics Screen Negative Ur Amphetamines Screen Negative U Benzodiazepines Scrn Negative Urine Cocaine Screen Positive A Ur THC Screen Positive A Add-On Test Request 09/14/22 09/14/22 09/15/22 20:30 22:55 05:30 VBG Lactate Sodium Potassium Chloride Carbon Dioxide Anion Gap BUN Creatinine Est GFR (CKD-EPI 2020) Glucose Calcium Magnesium Troponin I 141 H* 104 H* C-Reactive Protein Lipase Procalcitonin Urine Color Yellow Urine Clarity Clear Urine pH 7.0 Ur Specific [place] 1.015 Urine Protein Trace H Urine Ketones Negative Urine Blood Moderate H Urine Nitrite Negative Urine Bilirubin Negative Urine Urobilinogen 1.0 H Ur Leukocyte Esterase Negative Urine RBC 10-20 H Urine WBC 0-2 Ur Epithelial Cells Rare Urine Crystals Negative Urine Bacteria Negative Urine Casts Negative Urine Mucus Negative Ur Culture Indicated? No Urine Glucose Negative Urine Opiates Screen Urine Methadone Screen Ur Barbiturates Screen Ur Tricyclics Screen Ur Amphetamines Screen U Benzodiazepines Scrn Urine Cocaine Screen Ur THC Screen Add-On Test Request 09/15/22 09/15/22 05:30 05:30 VBG Lactate Sodium 138 Potassium 3.2 L Chloride 100 Carbon Dioxide 27.2 Anion Gap 10.8 BUN 22 H Creatinine 1.4 H Est GFR (CKD-EPI 2020) 55.09 Glucose 181 H Calcium 9.1 Magnesium 2.2 Troponin I C-Reactive Protein > 25.00 H Lipase Procalcitonin Urine Color Urine Clarity Urine pH Ur Specific [place] Urine Protein Urine Ketones Urine Blood Urine Nitrite Urine Bilirubin Urine Urobilinogen Ur Leukocyte Esterase Urine RBC Urine WBC Ur Epithelial Cells Urine Crystals Urine Bacteria Urine Casts Urine Mucus Ur Culture Indicated? Urine Glucose Urine Opiates Screen Urine Methadone Screen Ur Barbiturates Screen Ur Tricyclics Screen Ur Amphetamines Screen U Benzodiazepines Scrn Urine Cocaine Screen Ur THC Screen Add-On Test Request DONE Multi-Disciplinary Checklist Lines/Tubes CENTRAL LINE: no ARTERIAL LINE: no SOLOMON: no ENDOTRACHEAL TUBE: no ICU Maintenance GLUCOSE 140-180mg/dL: yes NUTRITION AT GOAL: yes PRESSURE ULCER: no RESTRAINTS: no ANTIBIOTICS(if yes, consider Stewardship): Yes Social Issues FAMILY UPDATED: no, PT/OT: no, GOALS/DISPOSITION/INSTRUMENTATION DESIGNER: yes CODE STATUS: Full (palliative care consulted) Prophylaxis DVT PROPHYLAXIS: yes GI PROPHYLAXIS: no
[2022-09-15] MEDS: cefTRIAXone 1 GM/50 ML BAG IVPB (20:54)
[2022-09-15] MEDS: Potassium Chloride 20 MEQ TABCR 40 MEQ PO (20:58)
[2022-09-15] MEDS: Tamsulosin 0.4 MG CAPCR PO (20:58)
[2022-09-15] MEDS: Atorvastatin 40 MG TAB PO (20:59)
[2022-09-16] VITALS (164 sets, daily range): BP systolic 99–116; BP diastolic 49–84; PULSE 52–131; RESP 4–41; TEMP 36.6–37.6; O2SAT 89–99
[2022-09-16] MEDS: DOXYCYCLINE 100 MG in Normal Saline 100 ML IVPB ×2 (00:04→12:54)
[2022-09-16] MEDS: Amiodarone in Dextrose 360 MG/200 ML BAG 16.667 MG IV (00:18)
[2022-09-16] MEDS: Ipratropium 0.5 MG/2.5 ML UPD VIAL UPD ×3 (01:16→19:49)
[2022-09-16] MEDS: dilTIAZem 60 MG TAB PO ×4 (01:26→20:09)
[2022-09-16 06:35] LABS: Anion Gap 15.2 mmol/L (3-11); BUN 38 mg/dL (7-18); CO2 21.8 mmol/L (21.0-32.0); CREATININE 1.7 mg/dL (0.70-1.30); Calcium 8.8 mg/dL (8.5-10.1); Chloride 98 mmol/L (98-107); Estimated GFR 43.64 (mL/min/1.73m2); Glucose 158 mg/dL (74-106); Potassium 3.8 mmol/L (3.5-5.1); Sodium 135 mmol/L (136-145)
[2022-09-16 07:30] LABS: Abs Immature Grans 0.16 10^3/uL (0.0-0.06); Absolute Basophil Count 0.05 10^3/uL (0.0-0.2); Absolute Lymphocyte Count 1.53 10^3/uL (1.2-3.4); Absolute Monocyte Count 1.81 10^3/uL (0.1-0.8); Absolute Neutrophil Count 13.89 10^3/uL (1.2-6.7); Basophils % 0.3; Eosinophils % 0.6; HCT 36.6 % (40.0-50.0); Immature Grans % 0.9; Lymphocytes % 8.7; MCH 30.2 pg (27.0-33.0); MCHC 32.8 % (32.0-36.0); MCV 92 fL (80-95); MPV 10.8 fL (8.0-11.0); Monocytes % 10.3; Neutrophils % 79.2; Platelet Count 146 10^3/uL (130-400); RBC 3.98 10^6/uL (4.36-5.78); RDW 13.4 % (11.8-14.1); RDW-SD 45.5 fL; WBC 17.54 10^3/uL (4.4-10.8)
[2022-09-16 07:31] LABS: Absolute Eosinophil Count 0.11 10^3/uL (0.0-0.7); Diff Comment Diff Reviewed; RBC Morphology Normal
[2022-09-16] MEDS: Levalbuterol 1.25 MG/3 ML UPD VIAL UPD (08:04)
[2022-09-16] MEDS: Mometasone 220 MCG 14 DOSE INHALER 2 PUFF IH ×2 (08:05→19:52)
[2022-09-16] MEDS: Pantoprazole 40 MG TABCR PO (08:52)
[2022-09-16] MEDS: Potassium Chloride 20 MEQ TABCR 40 MEQ PO (08:52)
[2022-09-16] MEDS: Cyanocobalamin 500 MCG TAB 1000 MCG PO (08:52)
[2022-09-16] MEDS: Digoxin 0.125 MG TAB PO (08:52)
[2022-09-16] MEDS: Spironolactone 25 MG TAB PO (08:53)
[2022-09-16] MEDS: Finasteride 5 MG TAB PO (08:53)
[2022-09-16] MEDS: Pregabalin 50 MG CAP 150 MG PO ×2 (08:53→20:09)
[2022-09-16] MEDS: Baclofen 10 MG TAB PO ×3 (08:53→20:10)
[2022-09-16] MEDS: Folic Acid 1 MG TAB PO (08:53)
[2022-09-16] MEDS: Citalopram 20 MG TAB 40 MG PO (08:53)
[2022-09-16] MEDS: dilTIAZem CD 120 MG CAPCR 240 MG PO (08:53)
[2022-09-16] MEDS: Clopidogrel 75 MG TAB PO (08:54)
[2022-09-16] MEDS: Ferrous Sulfate 325 MG TAB PO ×2 (08:54→20:10)
[2022-09-16] MEDS: Magnesium Oxide 400 MG TAB PO (08:54)
[2022-09-16] MEDS: Ascorbic Acid 500 MG TAB PO ×2 (08:54→20:10)
[2022-09-16] MEDS: lamoTRIgine 100 MG TAB PO ×2 (08:54→20:10)
--- NOTE | 2022-09-16 08:59 | PDOC.CMPRO ---
- If Service Date Differs Date of service: 09/16/22 Time of Service: 08:59 Care Management Progress Note S/O:Miguel was lying in bed when CM met with him. He was sleepy and informed CM that he had been awake since 2 am with difficulty breathing and coughing. He stated I just couldn't catch my breath. He had some hemoptysis with coughing and his anticoagulants are now on hold.. Miguel is afebrile but his blood pressures are a bit low and he has had tachypnea. Miguel had a period of vtach yesterday which was treated with an amiodarone drip. He is now in aflutter but is rate controlled. His oxygen saturation levels remain in the low 90s on 2L of O2 via nc. Bipap was ordered last night but he refused to wear it. A: Miguel is a 67 year old man admitted on 09/14/22 with CHF P:Miguel will likely return home, possibly with new home health services. He will follow up with his community providers and plan of care as prescribed. CM will support Miguel and his discharge needs.
[2022-09-16 09:07] LABS: Bilirubin Negative (Negative); Blood Large (Negative); Clarity Cloudy (Clear); Glucose Negative (Negative); Ketones Negative (Negative); Leukocyte Esterase Moderate (Negative); Nitrite Negative (Negative); Urobilinogen 0.2 EU/dL (Up TO 0.2)
[2022-09-16] MEDS: Amiodarone 200 MG TAB 400 MG PO ×2 (09:11→20:10)
[2022-09-16 09:16] LABS: Bacteria Few HPF (Negative); Crystals Negative HPF (Negative); Epithelial Cells Few HPF (Negative); Mucus Negative (Negative); RBC >50 HPF (0-2)
[2022-09-16 09:17] LABS: C & S Indicated? Yes
--- NOTE | 2022-09-16 09:17 | W.PM.PROGNOT ---
Date of Service Date of service: 09/16/22 Time of Service: 09:17 Assessment and Plan Assessment and plan (1) Ventricular tachycardia (paroxysmal): Status: Acute Assessment and plan: Finished amiodarone gtt with no recurrences of Vtach. Transition to oral amiodarone. Certaily at risk for VT given low LVEF (35%). Continue cardiac monitoring. Since had an echo on 08/17/22, does not require a repeat. Would monitor in the ICU for the remainder of the day. (2) Atrial flutter with rapid ventricular response: Status: Acute Assessment and plan: As above Rates controlled now with addition of amiodarone. Continue home cardizem for now. May be able to d/c it. Also on digoxin. Will check level. (3) Acute on chronic HFrEF (heart failure with reduced ejection fraction): Status: Acute Assessment and plan: In acute exacerbation. Diurese (continue furosemide 40 mg PO daily). Rate controlled. LVEF 35% on echo 08/17/22 at [facility] [place] [place]. If not for cocaine use, beta blockers would be an excellent addition to his regimen. Encourage cessation of cocaine. (4) Hemoptysis: Status: Acute Assessment and plan: Hold anticoagluation. (5) Elevated troponin: Status: Acute Assessment and plan: Suspect demand ischemia given arrhythmic events and CHF exacerbation Would continue antiplatelet therapy while carefully monitoring for worsening hemoptysis. Rate control imperative (as is cessation of cocaine). (6) COPD with acute exacerbation: Status: Acute Assessment and plan: Does appear to have a bacterial component by chest imaging Continue antibiotics, add steroids. Nebs: levalbuterol, atrovent given rapid rates/arrhythmias on this admission. (7) Cocaine abuse: Status: Chronic Assessment and plan: Advised to quit. Likely responsible for the cardiomyopathy and the arrhythmias (8) Hypokalemia: Status: Resolved Assessment and plan: recheck in am (9) DVT prophylaxis: Status: Acute Assessment and plan: SCDs Holding eliquis in light of hemoptysis (10) Discharge planning issues: Status: Acute Assessment and plan: Full code C/s palliative care Total Critical Care Time 35 minutes. Subjective Subjective Interval history since last seen: Mr Pérez is on 2L of O2 by NC, coughing w/ hemoptysis (bright red, teaspoon amount). Denies dizziness, endorses midsternal chest pain worse with coughing, endorses shortness of breath, denies nausea. Just finished his amiodarone infusion. No more episodes of wide complex tachycardia since yesterday morning. Exam Narrative Exam Narrative: General: Pleasant middle-aged male, on 2L of O2 by NC, harsh cough HEENT: EOMI, MMM Heart: RRR, no murmurs Lungs: expiratory wheezing B, worse Abdomen: soft, nontender, nondistended Extremities:no edema BLEs Objective Last Vital Signs Temp 36.6 C 09/16/22 04:06 Pulse 80 09/16/22 08:52 Resp 21 09/16/22 08:04 BP 112/64 09/16/22 06:00 Pulse Ox 94 09/16/22 08:04 Laboratory Results - last 24 hr 09/16/22 09/16/22 09/16/22 05:22 05:22 08:57 WBC 17.54 H RBC 3.98 L Hgb 12.0 L Hct 36.6 L MCV 92 MCH 30.2 MCHC 32.8 RDW 13.4 Plt Count 146 MPV 10.8 Immature Gran % 0.9 Neutrophils % 79.2 Lymphocytes % 8.7 Monocytes % 10.3 Eosinophils % 0.6 Basophils % 0.3 Nucleated RBC % 0.0 Absolute Neutrophils 13.89 H Absolute Lymphocytes 1.53 Absolute Monocytes 1.81 H Absolute Eosinophils 0.11 Absolute Basophils 0.05 RBC Morphology Normal Sodium 135 L Potassium 3.8 Chloride 98 Carbon Dioxide 21.8 Anion Gap 15.2 H BUN 38 H Creatinine 1.7 H Est GFR (CKD-EPI 2020) 43.64 Glucose 158 H Calcium 8.8 Magnesium 2.0 Urine Color Yellow Urine Clarity Cloudy Urine pH 6.0 Ur Specific [place] 1.020 Urine Protein 100 H Urine Ketones Negative Urine Blood Large H Urine Nitrite Negative Urine Bilirubin Negative Urine Urobilinogen 0.2 Ur Leukocyte Esterase Moderate H Urine RBC >50 H Urine WBC 10-20 H Ur Epithelial Cells Few Urine Crystals Negative Urine Bacteria Few Urine Casts 5-10 RBC Urine Mucus Negative Ur Culture Indicated? Yes Urine Glucose Negative Objective Narrative Objective Narrative: Echo 08/17/22 ([facility] [place] [place]): LV is mildly dilated. LVEF 35%. There are segmental wall motion abnormalities. RV size/systolic function normal. LA severely dilated. Mild to moderate mitral regurg. RVSP 37 mmHg. No significant change from 04/10/20. Multi-Disciplinary Checklist Lines/Tubes CENTRAL LINE: no ARTERIAL LINE: no SOLOMON: yes, Solomon Day#: 2 Note: getting discontinued this morning ENDOTRACHEAL TUBE: no ICU Maintenance GLUCOSE 140-180mg/dL: yes NUTRITION AT GOAL: yes PRESSURE ULCER: no RESTRAINTS: no ANTIBIOTICS(if yes, consider Stewardship): Yes Social Issues FAMILY UPDATED: no, Reason/Intervention: Patient is A&Ox3 and able to update family PT/OT: no, Reason/Intervention: not requiring GOALS/DISPOSITION/WOODEN SH[employer] HARDWARE INSTALLER: yes CODE STATUS: Full (palliative care consulted) Prophylaxis DVT PROPHYLAXIS: yes GI PROPHYLAXIS: yes, Indication: on steroids
[2022-09-16] MEDS: predniSONE 20 MG TAB 40 MG PO (09:59)
[2022-09-16] MEDS: guaiFENesin 600 MG TABCR PO ×2 (09:59→20:09)
[2022-09-16] MEDS: Normal Saline Flush 10 ML SYR IVP (13:10)
--- NOTE | 2022-09-16 16:02 | PHACLINREV_ITS ---
Pharmacy Admission Review - Admission Clinical Review (Last Reviewed 09/14/22 @ 23:14 by Miguel Macias MD) Acute on chronic HFrEF (heart failure with reduced ejection fraction) (Acute) Elevated troponin (Acute) Discharge planning issues (Acute) COPD with acute exacerbation (Acute) Hemoptysis (Acute) Ventricular tachycardia (paroxysmal) (Acute) Atrial flutter with rapid ventricular response (Acute) SOB (shortness of breath) (Acute) DVT prophylaxis (Acute) aripiprazole Allergy (Mild, Verified 09/07/22 09:39) SKIN RASH, tremors codeine Allergy (Unknown, Verified 09/07/22 09:39) Nausea, vomiting, rash aspirin Adverse Reaction (Unknown, Verified 09/07/22 09:39) Skin Rash Resuscitation Status Full Code Height 5 ft 6 in Weight 68.2 kg - Renal Dosing Renal Dosing: BUN 38 mg/dL (7-18) H 09/16/22 05:22 Creatinine 1.7 mg/dL (0.70-1.30) H 09/16/22 05:22 Medications needing adjustments: Reviewed List of meds needing interventions: eCrCl 40 ml/min, current orders ok - Anticoagulation Anticoagulation: Hgb 12.0 g/dL (13.5-17.5) L 09/16/22 05:22 Hct 36.6 % (40.0-50.0) L 09/16/22 05:22 Plt Count 146 10^3/uL (130-400) 09/16/22 05:22 Creatinine 1.7 mg/dL (0.70-1.30) H 09/16/22 05:22 Therapeutic Anticoagulation: Reviewed Medications: Apixaban - Opiate Usage Evaluate Pain Scale/Pains Meds: N/A - Relevant Labs Sodium 135 mmol/L (136-145) L 09/16/22 05:22 Potassium 3.8 mmol/L (3.5-5.1) 09/16/22 05:22 Chloride 98 mmol/L (98-107) 09/16/22 05:22 Magnesium 2.0 mg/dL (1.8-2.4) 09/16/22 05:22 C-Reactive Protein > 25.00 mg/dL (0.0-0.3) H 09/15/22 05:30 Electrolytes, C-Reactive P, ESR: Reviewed - DM Control DM Control: Glucose 158 mg/dL (74-106) H 09/16/22 05:22 DM Control: N/A - Cardiac Review Cardiac Review: Troponin I 104 ng/L (<or=60) H* 09/15/22 05:30 NT-Pro-B Natriuret Pep 4362 pg/mL (<300) H 09/14/22 18:05 BP, HR, EF%: Reviewed - Qtc Review QTc: Reviewed If Elevated, List meds needing intervention: QTc 490 on admission - IV to PO Switch IV Medications: Reviewed (IV antibiotics started on 09/14 -- will discuss moreno scalation tomorrow with MD) - Home Meds Home Med List reviewed: Intervened Relevent Home Meds Not ordered & why?: corrected citalopram dose, apixipan is ordered but on hold d/t hemoptysis, furosemide also on hold, dilt is ordered at 60mg q6h - Current meds Current Medication Order Review: Reviewed (amiodarone gtt started yesterday and transitioned to oral today; also on dilt and dig for rate control -- monitor, dc dilt?)
[2022-09-16] MEDS: cefTRIAXone 1 GM/50 ML BAG IVPB (20:09)
[2022-09-16] MEDS: Atorvastatin 40 MG TAB PO (20:10)
[2022-09-16] MEDS: Tamsulosin 0.4 MG CAPCR PO (20:10)
[2022-09-17] VITALS (113 sets, daily range): BP systolic 106–132; BP diastolic 64–84; PULSE 57–107; RESP 2–33; TEMP 35.7–37.4; O2SAT 2–97
[2022-09-17] MEDS: DOXYCYCLINE 100 MG in Normal Saline 100 ML IVPB ×2 (00:38→12:22)
[2022-09-17] MEDS: Ipratropium 0.5 MG/2.5 ML UPD VIAL UPD ×4 (02:52→18:47)
[2022-09-17] MEDS: dilTIAZem 60 MG TAB PO ×4 (03:00→19:17)
[2022-09-17 05:39] LABS: Abs Immature Grans 0.26 10^3/uL (0.0-0.06); Absolute Basophil Count 0.03 10^3/uL (0.0-0.2); Absolute Eosinophil Count 0.01 10^3/uL (0.0-0.7); Absolute Lymphocyte Count 1.15 10^3/uL (1.2-3.4); Basophils % 0.2; Eosinophils % 0.1; HGB 11.8 g/dL (13.5-17.5); Immature Grans % 1.8; MCH 31.1 pg (27.0-33.0); MCHC 34.7 % (32.0-36.0); MCV 90 fL (80-95); MPV 10.9 fL (8.0-11.0); Monocytes % 9.5; Neutrophils % 80.4; Platelet Count 150 10^3/uL (130-400); RDW 13.7 % (11.8-14.1); RDW-SD 44.9 fL; WBC 14.39 10^3/uL (4.4-10.8)
[2022-09-17 05:41] LABS: Absolute Monocyte Count 1.37 10^3/uL (0.1-0.8); Absolute Neutrophil Count 11.57 10^3/uL (1.2-6.7)
[2022-09-17 06:12] LABS: Anion Gap 8.4 mmol/L (3-11); BUN 37 mg/dL (7-18); CO2 23.6 mmol/L (21.0-32.0); CREATININE 1.6 mg/dL (0.70-1.30); Calcium 8.8 mg/dL (8.5-10.1); Chloride 97 mmol/L (98-107); Estimated GFR 46.93 (mL/min/1.73m2); Glucose 151 mg/dL (74-106); Potassium 4.5 mmol/L (3.5-5.1); Sodium 129 mmol/L (136-145)
[2022-09-17] MEDS: Mometasone 220 MCG 14 DOSE INHALER 2 PUFF IH ×2 (07:51→19:30)
[2022-09-17] MEDS: Folic Acid 1 MG TAB PO (08:28)
[2022-09-17] MEDS: Spironolactone 25 MG TAB PO (08:28)
[2022-09-17] MEDS: predniSONE 20 MG TAB 40 MG PO (08:29)
[2022-09-17] MEDS: Pregabalin 50 MG CAP 150 MG PO ×2 (08:29→19:15)
[2022-09-17] MEDS: Ferrous Sulfate 325 MG TAB PO ×2 (08:29→19:15)
[2022-09-17] MEDS: Amiodarone 200 MG TAB 400 MG PO ×2 (08:29→19:16)
[2022-09-17] MEDS: guaiFENesin 600 MG TABCR PO ×2 (08:29→19:10)
[2022-09-17] MEDS: Finasteride 5 MG TAB PO (08:30)
[2022-09-17] MEDS: Cyanocobalamin 500 MCG TAB 1000 MCG PO (08:30)
[2022-09-17] MEDS: Baclofen 10 MG TAB PO ×3 (08:30→19:16)
[2022-09-17] MEDS: Magnesium Oxide 400 MG TAB PO (08:30)
[2022-09-17] MEDS: Potassium Chloride 20 MEQ TABCR 40 MEQ PO (08:30)
[2022-09-17] MEDS: Digoxin 0.125 MG TAB PO (08:30)
--- NOTE | 2022-09-17 08:30 | CMPROGNOTE_ITS ---
- If Service Date Differs Date of service: 09/17/22 Time of Service: 08:30 Care Management Progress Note S/O:Miguel was asleep in his chair when CM came to meet with him. Attempts to gently wake him up by calling his name and touching his arm were unsuccessful. Miguel met with Palliative Care today to discuss his goals of care. Until now he has remained a full code, but today decided to transition to DNR/DNI status. Clinically Miguel is improving. He was moved out of the ICU today and blayne manfred is feeling better, per provider. He is afebrile and his vital signs are stable. He remains in atrial flutter but is rate controlled. A: Miguel is a 67 year old man admitted on 09/14/22 with CHF P:Miguel will likely return home with a resumption of home health services for nursing and PT. He will follow up with his community providers and plan of care as prescribed. CM will support Miguel and his discharge needs.
[2022-09-17] MEDS: Citalopram 20 MG TAB PO (08:31)
[2022-09-17] MEDS: Ascorbic Acid 500 MG TAB PO ×2 (08:31→19:16)
[2022-09-17] MEDS: Pantoprazole 40 MG TABCR PO (08:31)
[2022-09-17] MEDS: Clopidogrel 75 MG TAB PO (08:31)
[2022-09-17] MEDS: lamoTRIgine 100 MG TAB PO ×2 (08:31→20:47)
--- NOTE | 2022-09-17 09:33 | W.PM.PROGNOT ---
Date of Service Date of service: 09/17/22 Time of Service: 09:33 Assessment and Plan Assessment and plan (1) Ventricular tachycardia (paroxysmal): Status: Acute Assessment and plan: Finished amiodarone gtt with no recurrences of Vtach. Continue PO amiodarone. Certainly at risk for VT given low LVEF (35%). Since had an echo on 08/17/22, does not require a repeat. Ok to transfer out of the ICU to [facility] w/ tele. (2) Atrial flutter with rapid ventricular response: Status: Acute Assessment and plan: As above Rates controlled now with addition of amiodarone. Consider d/c cardizem. Continue digoxin for now - consider d/c. Dig level 1.4 yesterday. (3) Acute on chronic HFrEF (heart failure with reduced ejection fraction): Status: Acute Assessment and plan: In acute exacerbation. Diurese (continue furosemide 40 mg PO daily). Rate controlled. LVEF 35% on echo 08/17/22 at [facility]. If not for cocaine use, beta blockers would be an excellent addition to his regimen. Encourage cessation of cocaine. (4) Hemoptysis: Status: Acute Assessment and plan: Hold anticoagluation. Still on plavix. Consult pulmonology. (5) Elevated troponin: Status: Acute Assessment and plan: Suspect demand ischemia given arrhythmic events and CHF exacerbation Would continue antiplatelet therapy while carefully monitoring for worsening hemoptysis. Rate control imperative (as is cessation of cocaine). (6) COPD with acute exacerbation: Status: Acute Assessment and plan: Does appear to have a bacterial component by chest imaging Continue antibiotics,steroids. Nebs: levalbuterol, atrovent given rapid rates/arrhythmias on this admission. (7) Cocaine abuse: Status: Chronic Assessment and plan: Advised to quit. Likely responsible for the cardiomyopathy and the arrhythmias (8) Hypokalemia: Status: Resolved Assessment and plan: recheck in am (9) DVT prophylaxis: Status: Acute Assessment and plan: SCDs Holding eliquis in light of hemoptysis (10) Discharge planning issues: Status: Acute Assessment and plan: Full code C/s palliative care Transfer out of ICU to [facility] w/ tele. Subjective Subjective Interval history since last seen: Mr Pérez states he is feeling better today. He has not had any chest pain. He is still coughing, but states it's getting better. Still having some hemoptysis. Denies dizziness, shortness of breath, nausea. Has been in Aflutter on the monitor in the 70s. No Vtach. Exam Narrative Exam Narrative: General: Pleasant middle-aged male, on 2L of O2 by NC, harsh cough HEENT: EOMI, MMM Heart: RRR, no murmurs Lungs: expiratory wheezing B, unchanged Abdomen: soft, nontender, nondistended Extremities:no edema BLEs Objective Last Vital Signs Temp 37.4 C 09/17/22 08:51 Pulse 94 H 09/17/22 08:26 Resp 21 09/17/22 08:40 BP 112/75 09/17/22 08:00 Pulse Ox 92 09/17/22 08:40 Laboratory Results - last 24 hr 09/17/22 09/17/22 09/17/22 05:12 05:12 05:12 WBC 14.39 H RBC 3.80 L Hgb 11.8 L Hct 34.0 L MCV 90 MCH 31.1 MCHC 34.7 RDW 13.7 Plt Count 150 MPV 10.9 Immature Gran % 1.8 Neutrophils % 80.4 Lymphocytes % 8.0 Monocytes % 9.5 Eosinophils % 0.1 Basophils % 0.2 Nucleated RBC % 0.0 Absolute Neutrophils 11.57 H Absolute Lymphocytes 1.15 L Absolute Monocytes 1.37 H Absolute Eosinophils 0.01 Absolute Basophils 0.03 Sodium 129 L Potassium 4.5 Chloride 97 L Carbon Dioxide 23.6 Anion Gap 8.4 BUN 37 H Creatinine 1.6 H Est GFR (CKD-EPI 2020) 46.93 Glucose 151 H Calcium 8.8 Magnesium 2.0 Digoxin 1.40
[2022-09-17] MEDS: Levalbuterol 1.25 MG/3 ML UPD VIAL UPD ×3 (09:35→23:07)
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
[2022-09-17] MEDS: Normal Saline Flush 10 ML SYR IVP (12:25)
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
--- NOTE | 2022-09-17 14:27 | NUR.NOTE ---
Nursing Note: At 1350, the patient was transferred from the ICU to med-surg to room 227. Patient oriented to room.
--- NOTE | 2022-09-17 14:57 | PTTR_ITS ---
Date of service: 09/17/22 Time of Service: 14:27 PT Notes Visit Reasons: Congestive heart failure Inpatient Physical Therapy Treatment Note [facility] Date: 09/17/2022 PRECAUTIONS: Activity as tolerated, Fall SUBJECTIVE: Miguel is pleasant and agreeable to participating in PT. He reports that he is feeling a little better today. OBJECTIVE: PAIN: Patient c/o back pain with coughing, and c/o R ankle pain with gait training BED MOBILITY/TRANSFERS Sit-stand: SBA Stand-sit: SBA GAIT Assistive Device: FWW Weight bearing: WBAT B Assist: SBA Distance: 50' Deviation: C/o R ankle pain, 3L O2 THEREX: Held due to Palliative care consult ASSESSMENT: Patient tolerated session with complaint of increased global fat igue and R ankle pain with gait training. He demonstrates ability to perform transfers without assist at this time. PLAN: Continue with global strengthening and gait training for improved activity tolerance and mobility. TREATMENT CODE/TIME: 12 minutes; 30936 (14:27)
[2022-09-17] MEDS: Acetaminophen 500 MG TAB PO (18:31)
[2022-09-17] MEDS: guaiFENesin/D-METHORPHAN HB 5 ML CUP 10 ML PO ×2 (19:09→23:07)
[2022-09-17] MEDS: Benzonatate 200 MG CAP PO (19:10)
[2022-09-17] MEDS: Atorvastatin 40 MG TAB PO (19:15)
[2022-09-17] MEDS: Tamsulosin 0.4 MG CAPCR PO (20:48)
[2022-09-17] MEDS: cefTRIAXone 1 GM/50 ML BAG IVPB (21:30)
[2022-09-18] VITALS (89 sets, daily range): BP systolic 87–149; BP diastolic 65–114; PULSE 54–135; RESP 2–40; TEMP 36.2–37.5; O2SAT 86–97
--- NOTE | 2022-09-18 | DI.RAD_ITS ---
Exam(s) XR PORTABLE CHEST AP EXAM: XR PORTABLE CHEST AP CLINICAL HISTORY: hypoxemia,. TECHNIQUE: 2D digital imaging was performed. COMPARISON: CR XR PORTABLE CHEST AP from 09/07/2022 FINDINGS: Single AP portable view. Heart size is upper normal. The mediastinum is not widened. There is extensive infiltrate throughout the right lung involving all lobes. No pleural effusion. M inimal increased markings noted in the left lower lobe. Remainder of the left lung is clear. No ple ural effusions on either side. No pulmonary edema. No pneumothorax. No fractures seen. IMPRESSION: Extensive unilateral right-sided infiltrate. Small left lower lobe infiltrate. No pleural effusions evident. DATA REPOSITORY: RADIATION DOSE DELIVERED:
[2022-09-18] MEDS: DOXYCYCLINE 100 MG in Normal Saline 100 ML IVPB ×3 (00:05→23:30)
[2022-09-18] MEDS: Ipratropium 0.5 MG/2.5 ML UPD VIAL UPD ×4 (00:55→19:51)
[2022-09-18] MEDS: dilTIAZem 60 MG TAB PO ×4 (02:15→19:50)
[2022-09-18] MEDS: Levalbuterol 1.25 MG/3 ML UPD VIAL UPD ×3 (03:04→13:05)
[2022-09-18] MEDS: guaiFENesin/D-METHORPHAN HB 5 ML CUP 10 ML PO ×3 (03:04→20:59)
[2022-09-18 06:25] LABS: Abs Immature Grans 0.78 10^3/uL (0.0-0.06); HCT 35.1 % (40.0-50.0); MCHC 34.2 % (32.0-36.0); MCV 91 fL (80-95); Platelet Count 176 10^3/uL (130-400); RBC 3.87 10^6/uL (4.36-5.78); RDW 13.9 % (11.8-14.1); RDW-SD 46.2 fL; WBC 19.38 10^3/uL (4.4-10.8)
[2022-09-18 06:44] LABS: Iron 33 ug/dL (65-175); Total Iron Binding Capacity 270 ug/dL (250-450); Transferrin Sat 12 % (20-55)
[2022-09-18 07:10] LABS: Anion Gap 9.4 mmol/L (3-11); BUN 35 mg/dL (7-18); CO2 23.6 mmol/L (21.0-32.0); CREATININE 1.3 mg/dL (0.70-1.30); Calcium 8.8 mg/dL (8.5-10.1); Chloride 96 mmol/L (98-107); Estimated GFR 60.21 (mL/min/1.73m2); Ferritin 553 ng/mL (26-388); Folate 13.8 ng/mL (8.6-20.0); Glucose 137 mg/dL (74-106); Magnesium 2.1 mg/dL (1.8-2.4); Potassium 4.4 mmol/L (3.5-5.1); Sodium 129 mmol/L (136-145); Vitamin B12 776 pg/mL (193-986)
[2022-09-18 07:50] LABS: C-Reactive Protein 5.56 mg/dL (0.0-0.3)
[2022-09-18 07:51] LABS: Absolute Eosinophil Count 0.19 10^3/uL (0.0-0.7); Absolute Lymphocyte Count 2.52 10^3/uL (1.2-3.4); Absolute Monocyte Count 0.78 10^3/uL (0.1-0.8); Absolute Neutrophil Count 15.89 10^3/uL (1.2-6.7); Atypical Lymphocytes % 5; Bands % 0; Diff Comment Manual Differential; RBC Morphology Normal
--- NOTE | 2022-09-18 08:15 | RT.EKG_ITS ---
APPROVED REPORT Exam: Resting ECG Reason for Exam: hypxemia, chf Patient Location: I HR:98 bpm ECG Measurements Heart Rate 98 AXIS DE [id number] P [id number] QRSd 84 QRS 43 QT 328 T 241 QTc 419 Conclusion Atrial flutter...A-rate 245 Nonspecific repol abnormality, diffuse leads...ST dep, T flat/neg, ant/lat/inf
--- NOTE | 2022-09-18 08:19 | PDOC.CMPRO ---
- If Service Date Differs Date of service: 09/18/22 Time of Service: 08:19 Care Management Progress Note S/O:Miguel was lying in bed when CM met with him. He had been moved back to the ICU as he was having increased difficulty breathing this morning and his O2 saturation dropped into the 80s. He described being short of breath and was coughing almost continuously. Miguel shared that he had a Palliative Care consult yesterday and made the decision to change to a DNR/DNI status. Miguel stated that his children aren't pleased about his decision but that he feels it is his body and his life and, therefore, his choice. He reported that he is just tired of living like this and is giving up. He said he feels that making that decision may have played a role in his decline today. A: Miguel is a 67 year old man admitted on 09/14/22 with CHF P:Miguel will likely return home with a resumption of home health services for nursing and PT. He will follow up with his community providers and plan of care as prescribed. CM will support Miguel and his discharge needs.
[2022-09-18] MEDS: Furosemide 40 MG/4 ML VIAL IVP (08:30)
[2022-09-18] MEDS: Normal Saline Flush 10 ML SYR IVP (08:36)
[2022-09-18] MEDS: Ascorbic Acid 500 MG TAB PO ×2 (08:55→19:50)
[2022-09-18] MEDS: Citalopram 20 MG TAB PO (08:55)
[2022-09-18] MEDS: predniSONE 20 MG TAB 40 MG PO (08:55)
[2022-09-18] MEDS: Pregabalin 50 MG CAP 150 MG PO ×2 (08:56→19:51)
[2022-09-18] MEDS: Benzonatate 200 MG CAP PO ×3 (08:56→19:50)
[2022-09-18] MEDS: Cyanocobalamin 500 MCG TAB 1000 MCG PO (08:56)
[2022-09-18] MEDS: Clopidogrel 75 MG TAB PO (08:56)
[2022-09-18] MEDS: Folic Acid 1 MG TAB PO (08:56)
[2022-09-18] MEDS: Potassium Chloride 20 MEQ TABCR 40 MEQ PO (08:56)
[2022-09-18] MEDS: Pantoprazole 40 MG TABCR PO (08:56)
[2022-09-18] MEDS: Amiodarone 200 MG TAB 400 MG PO ×2 (08:56→19:50)
[2022-09-18] MEDS: guaiFENesin 600 MG TABCR PO ×2 (08:56→19:51)
[2022-09-18] MEDS: Ferrous Sulfate 325 MG TAB PO ×2 (08:56→19:51)
[2022-09-18] MEDS: Magnesium Oxide 400 MG TAB PO (08:56)
[2022-09-18] MEDS: Mometasone 220 MCG 14 DOSE INHALER 2 PUFF IH ×2 (08:57→20:58)
[2022-09-18] MEDS: lamoTRIgine 100 MG TAB PO ×2 (08:57→19:50)
[2022-09-18] MEDS: Finasteride 5 MG TAB PO (08:57)
[2022-09-18] MEDS: Spironolactone 25 MG TAB PO (08:57)
[2022-09-18] MEDS: Baclofen 10 MG TAB PO ×3 (08:57→19:51)
[2022-09-18 08:59] LABS: Troponin I 66 ng/L (<or=60)
[2022-09-18] MEDS: Apixaban 5 MG TAB PO ×2 (09:21→19:51)
--- NOTE | 2022-09-18 09:34 | NUR.NOTE ---
Patient arrives on unit with BIPAP at 09:[address] RN [address] Luther SPEARS note to check off CPAP order so that tranfer orders can be processed.Nursing Note:
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
--- NOTE | 2022-09-18 11:42 | NUR.NOTE ---
Patient is sating 90% on 4 liters of 02 humidified.Nursing Note:
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
--- NOTE | 2022-09-18 13:22 | NUR.NOTE ---
RN attempts placement of new IV without success. 2nd RN will attempt placement of new IV.Nursing Note:
--- NOTE | 2022-09-18 13:34 | W.PM.PROGNOT ---
Date of Service Date of service: 09/18/22 Time of Service: 13:35 Assessment and Plan Assessment and plan (1) Ventricular tachycardia (paroxysmal): Status: Acute Assessment and plan: Finished amiodarone gtt with no recurrences of Vtach. Continue PO amiodarone. Certainly at risk for VT given low LVEF (35%). He had an echo on 08/17/22. (2) Atrial flutter with rapid ventricular response: Status: Acute Assessment and plan: As above Rates controlled now with addition of amiodarone. Digoxin has been d/c'd. Continues on cardizem. Cont apixiban for AC. (3) Acute on chronic HFrEF (heart failure with reduced ejection fraction): Status: Acute Assessment and plan: In acute exacerbation. Worsened this AM; Lasix 40mg IV given. Rate controlled. LVEF 35% on echo 08/17/[place] at [facility]. If not for cocaine use, beta blockers would be an excellent addition to his regimen. Encourage cessation of cocaine. (4) Hemoptysis: Status: Acute Assessment and plan: No further hemopysis overnight or this AM. Restarted apixiban. Continue. plavix. Consulted pulmonology. No VIBRAPEP (5) Elevated troponin: Status: Acute Assessment and plan: Suspect demand ischemia given arrhythmic events and CHF exacerbation Troponin trended downward. Because of events this AM, another troponin drawn and was 66. Had previously decreased from 141 to 104. NO EKG changes this AM that were suggestive of ACS. (6) COPD with acute exacerbation: Status: Acute Assessment and plan: Does appear to have a bacterial component by chest imaging Continue antibiotics,steroids, mucinex. Nebs: levalbuterol, atrovent given rapid rates/arrhythmias on this admission. (7) Cocaine abuse: Status: Chronic Assessment and plan: Advised to quit. Likely responsible for the cardiomyopathy and the arrhythmias (8) Hypokalemia: Status: Resolved Assessment and plan: recheck in am (9) DVT prophylaxis: Status: Acute Assessment and plan: SCDs Holding eliquis in light of hemoptysis (10) Discharge planning issues: Status: Acute Assessment and plan: Full code C/s palliative care Transfer out of ICU to [facility] w/ tele. (11) Respiratory failure with hypoxia: Status: Acute Assessment and plan: Worsened; placed on CPAP at [id number] Transfer to ICU. Diurese. CXR in AM. Subjective Subjective Patient reports: afebrile; denies diarrhea, nausea or vomiting Interval history since last seen: Mr Pérez stated he developed a worsening cough overnight; paroxysms. Increased SOA This AM at 8 he was noted to be in respiratory distress with a mostly dry cough. Transferred to ICU. Exam Narrative Exam Narrative: Gen: In moderate distress with cough. Flushed face. HENT: sclera clear. MMM. Chest: Coarse breath sounds w/o wheezes. SOA with coughing paroxysms. Heart: RRR. No murmur. Abdomen: Non-distended, soft, non tender Extremities: No edema, calf tenderness. Neuro: AAOx3 , no focal motor weakness. Psych: affect appropriate. Objective Last Vital Signs Temp 36.2 C L 09/18/22 10:47 Pulse 104 H 09/18/22 13:28 Resp 26 H 09/18/22 13:28 BP 118/80 09/18/22 12:42 Pulse Ox 90 L 09/18/22 13:28 Laboratory Results - last 24 hr 09/18/22 09/18/22 09/18/22 05:36 05:36 05:36 WBC 19.38 H RBC 3.87 L Hgb 12.0 L Hct 35.1 L MCV 91 MCH 31.0 MCHC 34.2 RDW 13.9 Plt Count 176 MPV 11.0 Immature Gran % 0.0 Neutrophils % 82.0 Band Neutrophils % 0 Lymphocytes % 8.0 Atypical Lymphs % 5 Monocytes % 4.0 Eosinophils % 1.0 Basophils % 0.0 Nucleated RBC % 0.0 Absolute Neutrophils 15.89 H Absolute Lymphocytes 2.52 Absolute Monocytes 0.78 Absolute Eosinophils 0.19 Absolute Basophils 0.00 RBC Morphology Normal Sodium 129 L Potassium 4.4 Chloride 96 L Carbon Dioxide 23.6 Anion Gap 9.4 BUN 35 H Creatinine 1.3 Est GFR (CKD-EPI 2020) 60.21 Glucose 137 H Calcium 8.8 Magnesium 2.1 Iron 33 L TIBC 270 Transferrin % Sat 12 L Ferritin 553 H Troponin I C-Reactive Protein 5.56 H Vitamin B12 776 Folate 13.8 09/18/22 05:36 WBC RBC Hgb Hct MCV MCH MCHC RDW Plt Count MPV Immature Gran % Neutrophils % Band Neutrophils % Lymphocytes % Atypical Lymphs % Monocytes % Eosinophils % Basophils % Nucleated RBC % Absolute Neutrophils Absolute Lymphocytes Absolute Monocytes Absolute Eosinophils Absolute Basophils RBC Morphology Sodium Potassium Chloride Carbon Dioxide Anion Gap BUN Creatinine Est GFR (CKD-EPI 2020) Glucose Calcium Magnesium Iron TIBC Transferrin % Sat Ferritin Troponin I 66 H* C-Reactive Protein Vitamin B12 Folate
--- NOTE | 2022-09-18 14:03 | NUR.NOTE ---
Anesthesia is contacted to place a new IV. Anesthesia responds right away to unit to place midline access.Nursing Note:
--- NOTE | 2022-09-18 14:31 | W.ANESVAS ---
Midline Placement Date Performed: 09/18/22 Procedure Time: 14:18 Requesting Provider: Mannie Anne Procedure Location: Intensive Care Unit Sedation Given (Indicate Dose Given): No Sedation given Patient Mental Status: Awake Sterility: Hand Hygiene, Surgical Cap, Surgical Mask, Sterile Gloves, Sterile Drape/Sheet and Chlorhexidine Laterality: Left Insertion Site: Basilic Midline Device: PowerGlide Pro 18G Catheter Length: 10 cm Midline Procedure Procedure: 1% Lidocaine to skin and subcutaneous tissue with 25g needle and Catheter placed without resistance Dressing: Tegaderm Applied and Statlock Applied Blood Return: Present Flushes: Easily Ultrasound: Sterile probe cover and gel used Ultrasound Image Saved?: Yes Number of Attempts (See previous attempts in note section): 1 Procedure Tolerated: No Complications Procedure Outcome: Successful Performed By: Mannie Anne
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
[2022-09-18] MEDS: Atorvastatin 40 MG TAB PO (19:51)
[2022-09-18] MEDS: cefTRIAXone 1 GM/50 ML BAG IVPB (19:52)
[2022-09-18] MEDS: Tamsulosin 0.4 MG CAPCR PO (22:02)
[2022-09-19] VITALS (53 sets, daily range): BP systolic 95–129; BP diastolic 58–85; PULSE 78–129; RESP 2–36; TEMP 36.1–37.2; O2SAT 85–95
[2022-09-19] MEDS: guaiFENesin/D-METHORPHAN HB 5 ML CUP 10 ML PO ×4 (01:24→23:09)
[2022-09-19] MEDS: Acetaminophen 500 MG TAB PO (01:24)
[2022-09-19] MEDS: Ipratropium 0.5 MG/2.5 ML UPD VIAL UPD ×4 (01:25→19:22)
[2022-09-19] MEDS: dilTIAZem 60 MG TAB PO ×4 (01:25→19:22)
[2022-09-19] MEDS: Pantoprazole 40 MG TABCR PO (07:41)
[2022-09-19] MEDS: Levalbuterol 1.25 MG/3 ML UPD VIAL UPD ×3 (07:46→17:12)
--- NOTE | 2022-09-19 08:00 | DI.RAD_ITS ---
Exam(s) XR PORTABLE CHEST AP EXAM: XR PORTABLE CHEST AP CLINICAL HISTORY: respiratory failure TECHNIQUE: COMPARISON: CR XR PORTABLE CHEST AP from 09/18/2022 FINDINGS: Portable upright chest at 0830 hours. Note is again made of previously described areas of pulmonary opacity on the right which are more extensive than on prior examination of September 18, findings ar e consistent with worsening pneumonitis. Additionally, there is increased radiodensity in left perih ilar regions also suggesting worsening pneumonia. Cardiac size is mildly enlarged. No gross pleural effusion seen. IMPRESSION: The appearance is consistent with worsening multifocal pneumonia. RADIATION DOSE DELIVERED: Total DLP
[2022-09-19] MEDS: guaiFENesin 600 MG TABCR PO ×2 (08:07→19:22)
[2022-09-19] MEDS: predniSONE 20 MG TAB 40 MG PO (08:07)
[2022-09-19] MEDS: Amiodarone 200 MG TAB 400 MG PO ×2 (08:07→19:23)
[2022-09-19 08:08] LABS: Absolute Eosinophil Count 0.04 10^3/uL (0.0-0.7); Absolute Lymphocyte Count 1.63 10^3/uL (1.2-3.4); Absolute Monocyte Count 1.03 10^3/uL (0.1-0.8); Absolute Neutrophil Count 16.91 10^3/uL (1.2-6.7); Basophils % 0.3; Eosinophils % 0.2; HCT 34.2 % (40.0-50.0); HGB 11.3 g/dL (13.5-17.5); Immature Grans % 2.5; Lymphocytes % 8.1; MCH 30.2 pg (27.0-33.0); MCV 91 fL (80-95); MPV 10.3 fL (8.0-11.0); Monocytes % 5.1; Neutrophils % 83.8; Platelet Count 171 10^3/uL (130-400); RBC 3.74 10^6/uL (4.36-5.78); RDW 14.1 % (11.8-14.1); RDW-SD 47.4 fL; WBC 20.18 10^3/uL (4.4-10.8)
[2022-09-19] MEDS: Benzonatate 200 MG CAP PO ×3 (08:08→19:23)
[2022-09-19] MEDS: Citalopram 20 MG TAB PO (08:08)
[2022-09-19] MEDS: Apixaban 5 MG TAB PO ×2 (08:08→19:23)
[2022-09-19] MEDS: Ascorbic Acid 500 MG TAB PO ×2 (08:08→19:23)
[2022-09-19] MEDS: Spironolactone 25 MG TAB PO (08:08)
[2022-09-19] MEDS: Baclofen 10 MG TAB PO ×3 (08:08→19:22)
[2022-09-19 08:09] LABS: Absolute Basophil Count 0.06 10^3/uL (0.0-0.2)
[2022-09-19 08:21] LABS: ALT 46 U/L (16-63); AST 37 U/L (15-37); Albumin 2.6 g/dL (3.4-5.0); Alkaline Phosphatase 139 U/L (46-116); Anion Gap 9.1 mmol/L (3-11); BUN 27 mg/dL (7-18); Bilirubin, Total 0.7 mg/dL (0.2-1.0); CO2 23.9 mmol/L (21.0-32.0); CREATININE 1.2 mg/dL (0.70-1.30); Calcium 8.4 mg/dL (8.5-10.1); Chloride 97 mmol/L (98-107); Estimated GFR 66.28 (mL/min/1.73m2); Glucose 110 mg/dL (74-106); Potassium 4.5 mmol/L (3.5-5.1); Sodium 130 mmol/L (136-145); Total Protein 6.2 g/dL (6.4-8.2)
[2022-09-19] MEDS: Clopidogrel 75 MG TAB PO (08:24)
[2022-09-19] MEDS: Cyanocobalamin 500 MCG TAB 1000 MCG PO (08:25)
[2022-09-19] MEDS: Finasteride 5 MG TAB PO (08:25)
[2022-09-19] MEDS: Furosemide 40 MG TAB PO (08:25)
[2022-09-19] MEDS: Folic Acid 1 MG TAB PO (08:25)
[2022-09-19] MEDS: Ferrous Sulfate 325 MG TAB PO ×2 (08:25→19:23)
[2022-09-19] MEDS: Mometasone 220 MCG 14 DOSE INHALER 2 PUFF IH ×2 (08:26→19:21)
[2022-09-19] MEDS: Potassium Chloride 20 MEQ TABCR 40 MEQ PO (08:26)
[2022-09-19] MEDS: lamoTRIgine 100 MG TAB PO ×2 (08:26→19:23)
[2022-09-19] MEDS: Pregabalin 50 MG CAP 150 MG PO ×2 (08:26→19:23)
[2022-09-19] MEDS: Magnesium Oxide 400 MG TAB PO (08:26)
--- NOTE | 2022-09-19 08:46 | DI.VRAD_ITS ---
PROCEDURE INFORMATION: Exam: XR Chest Exam date and time: 09/19/2022 8:17 AM Age: 67 years old Clinical indication: Other: Respiratory failure TECHNIQUE: Imaging protocol: Radiologic exam of the chest. Views: 1 view. COMPARISON: CR XR PORTABLE CHEST AP 09/18/2022 8:34 AM FINDINGS: Lungs: Diffuse opacity throughout the right hemithorax and left base may represent atelectasis or pneumonia.. Pleural spaces: Unremarkable. No pleural effusion. No pneumothorax. Heart/Mediastinum: Unremarkable. No cardiomegaly. Bones/joints: Unremarkable. IMPRESSION: Diffuse opacity throughout the right hemithorax and left base may represent atelectasis or pneumonia.. Dictated and Authenticated by: Pushpa Reese MD. Ordering:ANA Navas MD
[2022-09-19] MEDS: cefTRIAXone 2 GM/50 ML BAG IVPB (09:11)
[2022-09-19] MEDS: DOXYCYCLINE 100 MG in Normal Saline 100 ML IVPB ×2 (11:26→23:17)
--- NOTE | 2022-09-19 13:35 | W.PM.PROGNOT ---
Date of Service Date of service: 09/19/22 Time of Service: 13:35 Assessment and Plan Assessment and plan (1) Ventricular tachycardia (paroxysmal): Status: Acute Assessment and plan: Continue PO amiodarone. Certainly at risk for VT given low LVEF (35%). He had an echo on 08/17/22. (2) Atrial flutter with rapid ventricular response: Status: Acute Assessment and plan: As above Rates with improved controlled now with addition of amiodarone. Still mildly tachycardic. Would consider increasing dose of cardizem but not certain his BP would tolerate it. Digoxin has been d/c'd. Cont apixiban for AC. (3) Acute on chronic HFrEF (heart failure with reduced ejection fraction): Status: Acute Assessment and plan: In acute exacerbation on 09/18 and moved to the ICU. Lasix 40mg IV given with good diruetic effect. LVEF 35% on echo 08/17/22 at [facility]. If not for cocaine use, beta blockers would be an excellent addition to his regimen. Encourage cessation of cocaine. (4) Hemoptysis: Status: Acute Assessment and plan: No further hemopysis on 09/18 or today, 09/19. Restarted apixiban. Continue. plavix. Consulted pulmonology. No VIBRAPEP (5) Elevated troponin: Status: Acute Assessment and plan: Suspect demand ischemia given arrhythmic events and CHF exacerbation Troponin trended downward. Because of events on 09/18 another troponin drawn and was 66. Had previously decreased from 141 to 104. EKG was unchanged. (6) COPD with acute exacerbation: Status: Acute Assessment and plan: Does appear to have a bacterial component by chest imaging Continue antibiotics,steroids, mucinex. Nebs: levalbuterol, atrovent given rapid rates/arrhythmias on this admission. (7) Cocaine abuse: Status: Chronic Assessment and plan: Advised to quit. Likely responsible for the cardiomyopathy and the arrhythmias (8) Hypokalemia: Status: Resolved Assessment and plan: Normalized. (9) DVT prophylaxis: Status: Acute Assessment and plan: Eliquis. (10) Discharge planning issues: Status: Acute Assessment and plan: Full code C/s palliative care (11) Respiratory failure with hypoxia: Status: Acute Assessment and plan: Worsened; placed on CPAP at [id number] Transfer to ICU. Yash. CXR in AM. (12) Pneumonia: Status: Acute Assessment and plan: Bilateral infiltrates. Elevated WBC count that has been modestly increasing. Procal was 0.2 on 09/14. Repeat pending. On Ceftriaxone and Doxycycline. Increased Ceftriaxone to 2g daily. MRSA screen pending. Qualifiers: Pneumonia type: due to unspecified organism Laterality: bilateral Lung location: lower lobe of lung Qualified Code(s): J18.9 - Pneumonia, unspecified organism Subjective Subjective Patient reports: feels better and shortness of breath; denies nausea, vomiting or afebrile Interval history since last seen: Cough has improved but is still present. Exam Narrative Exam Narrative: Gen: Pt is in bed; pleasant/cooperative. HENT: sclera clear. MMM. Chest: Coarse breath sounds throughout. Mild increased WOB. Heart: RRR. No murmur. Abdomen: Non-distended, soft, non tender Extremities: No edema, calf tenderness. Neuro: AAOx3 , no focal motor weakness. Psych: affect appropriate. Objective Last Vital Signs Temp 36.9 C 09/19/22 13:26 Pulse 110 H 09/19/22 13:26 Resp 28 H 09/19/22 13:26 BP 107/66 09/19/22 13:26 Pulse Ox 92 09/19/22 13:26 Laboratory Results - last 24 hr 09/19/22 09/19/22 08:00 08:00 WBC 20.18 H RBC 3.74 L Hgb 11.3 L Hct 34.2 L MCV 91 MCH 30.2 MCHC 33.0 RDW 14.1 Plt Count 171 MPV 10.3 Immature Gran % 2.5 Neutrophils % 83.8 Lymphocytes % 8.1 Monocytes % 5.1 Eosinophils % 0.2 Basophils % 0.3 Nucleated RBC % 0.0 Absolute Neutrophils 16.91 H Absolute Lymphocytes 1.63 Absolute Monocytes 1.03 H Absolute Eosinophils 0.04 Absolute Basophils 0.06 Sodium 130 L Potassium 4.5 Chloride 97 L Carbon Dioxide 23.9 Anion Gap 9.1 BUN 27 H Creatinine 1.2 Est GFR (CKD-EPI 2020) 66.28 Glucose 110 H Calcium 8.4 L Total Bilirubin 0.7 AST 37 ALT 46 Alkaline Phosphatase 139 H Total Protein 6.2 L Albumin 2.6 L
--- NOTE | 2022-09-19 13:43 | NUR.NOTE ---
Patient given some ice cream and a mixed drink of cranberry juice and gingerale on ice. Patient enjoys said drink.Nursing Note:
--- NOTE | 2022-09-19 15:00 | NUR.NOTE ---
Patient remains up in chair sleeping in chair and sating 91% on 3 liters of 02.Nursing Note:
[2022-09-19] MEDS: Atorvastatin 40 MG TAB PO (19:22)
[2022-09-19] MEDS: Tamsulosin 0.4 MG CAPCR PO (21:26)
[2022-09-20] VITALS (69 sets, daily range): BP systolic 95–122; BP diastolic 56–89; PULSE 70–139; RESP 2–89; TEMP 34–37.1; O2SAT 78–94
[2022-09-20] MEDS: dilTIAZem 60 MG TAB PO ×4 (01:46→19:45)
[2022-09-20] MEDS: Ipratropium 0.5 MG/2.5 ML UPD VIAL UPD ×4 (01:46→19:41)
[2022-09-20] MEDS: LORazepam 2 MG/ML VIAL 1 MG IVP (01:55)
[2022-09-20] MEDS: MORPHine 4 MG/ML SYR IVP ×2 (01:55→06:05)
[2022-09-20] MEDS: Levalbuterol 1.25 MG/3 ML UPD VIAL UPD ×4 (01:55→14:09)
[2022-09-20 06:11] LABS: HCT 35.2 % (40.0-50.0); HGB 11.6 g/dL (13.5-17.5); MCH 30.5 pg (27.0-33.0); MCV 93 fL (80-95); MPV 10.6 fL (8.0-11.0); Platelet Count 195 10^3/uL (130-400); RDW-SD 47.3 fL; WBC 22.12 10^3/uL (4.4-10.8)
[2022-09-20 06:30] LABS: Anion Gap 9.2 mmol/L (3-11); BUN 30 mg/dL (7-18); CO2 24.8 mmol/L (21.0-32.0); CREATININE 1.1 mg/dL (0.70-1.30); Calcium 8.6 mg/dL (8.5-10.1); Chloride 97 mmol/L (98-107); Estimated GFR 73.58 (mL/min/1.73m2); Glucose 137 mg/dL (74-106); Potassium 4.4 mmol/L (3.5-5.1); Sodium 131 mmol/L (136-145)
[2022-09-20 06:31] LABS: Absolute Eosinophil Count 0.44 10^3/uL (0.0-0.7); Absolute Lymphocyte Count 1.55 10^3/uL (1.2-3.4); Absolute Monocyte Count 0.44 10^3/uL (0.1-0.8); Absolute Neutrophil Count 19.24 10^3/uL (1.2-6.7); Bands % 4
[2022-09-20 06:32] LABS: Diff Comment Manual Differential; Metamyelocytes % 2; RBC Morphology Normal
--- NOTE | 2022-09-20 07:11 | NUR.NOTE ---
SNPP message sent to Respiratory therapist to place patient on BIPAP and access patient who took a turn for the worse overnight.Nursing Note:
--- NOTE | 2022-09-20 07:25 | NUR.NOTE ---
Patient moves from bed to chair. Respiratory therapist recommends commencement of Optiflow high flow machine. Patient is given a respiratory treatment and responds nicely.Nursing Note:
[2022-09-20] MEDS: Mometasone 220 MCG 14 DOSE INHALER 2 PUFF IH ×2 (07:28→19:45)
--- NOTE | 2022-09-20 07:43 | NUR.NOTE ---
Respiratory therapist is setting up high flow nasal cannula, via opti-flow.Nursing Note:
[2022-09-20] MEDS: Furosemide 20 MG/2 ML VIAL IVP (08:23)
[2022-09-20] MEDS: Amiodarone 200 MG TAB 400 MG PO ×2 (08:29→19:45)
[2022-09-20] MEDS: Apixaban 5 MG TAB PO ×2 (08:30→19:46)
[2022-09-20] MEDS: Ascorbic Acid 500 MG TAB PO ×2 (08:30→19:46)
[2022-09-20] MEDS: Baclofen 10 MG TAB PO ×3 (08:30→19:46)
[2022-09-20] MEDS: Cyanocobalamin 500 MCG TAB 1000 MCG PO (08:31)
[2022-09-20] MEDS: Clopidogrel 75 MG TAB PO (08:31)
[2022-09-20] MEDS: Benzonatate 200 MG CAP PO ×3 (08:31→19:46)
[2022-09-20] MEDS: Citalopram 20 MG TAB PO (08:31)
[2022-09-20] MEDS: Folic Acid 1 MG TAB PO (08:32)
[2022-09-20] MEDS: Ferrous Sulfate 325 MG TAB PO ×2 (08:32→19:46)
[2022-09-20] MEDS: Finasteride 5 MG TAB PO (08:32)
[2022-09-20] MEDS: guaiFENesin 600 MG TABCR PO ×2 (08:33→19:45)
[2022-09-20] MEDS: Magnesium Oxide 400 MG TAB PO (08:33)
[2022-09-20] MEDS: Pantoprazole 40 MG TABCR PO (08:33)
[2022-09-20] MEDS: lamoTRIgine 100 MG TAB PO ×2 (08:33→19:46)
[2022-09-20] MEDS: Spironolactone 25 MG TAB PO (08:34)
[2022-09-20] MEDS: predniSONE 20 MG TAB 40 MG PO (08:34)
[2022-09-20] MEDS: Pregabalin 50 MG CAP 150 MG PO ×2 (08:34→19:46)
[2022-09-20] MEDS: cefTRIAXone 2 GM/50 ML BAG IVPB (08:52)
[2022-09-20] MEDS: VANCOMYCIN/WATER (PEG) 1.5 GM/300 ML BAG IVPB (10:00)
[2022-09-20] MEDS: DOXYCYCLINE 100 MG in Normal Saline 100 ML IVPB ×2 (11:58→23:59)
[2022-09-20] MEDS: guaiFENesin/D-METHORPHAN HB 5 ML CUP 10 ML PO ×2 (16:14→19:46)
[2022-09-20] MEDS: Tamsulosin 0.4 MG CAPCR PO (19:46)
[2022-09-20] MEDS: Atorvastatin 40 MG TAB PO (19:46)
[2022-09-20] MEDS: VANCOMYCIN/WATER (PEG) 1 GM/200 ML BAG IVPB (22:04)
[2022-09-20] MEDS: Normal Saline Flush 10 ML SYR IVP ×2 (22:05→23:59)
[2022-09-21] VITALS (50 sets, daily range): BP systolic 93–124; BP diastolic 65–91; PULSE 69–132; RESP 1–37; TEMP 34–37.4; O2SAT 77–96
[2022-09-21] MEDS: LORazepam 2 MG/ML VIAL 1 MG IVP ×2 (00:43→23:47)
[2022-09-21] MEDS: guaiFENesin/D-METHORPHAN HB 5 ML CUP 10 ML PO ×3 (00:46→23:45)
[2022-09-21] MEDS: Ipratropium 0.5 MG/2.5 ML UPD VIAL UPD ×4 (01:32→20:01)
[2022-09-21] MEDS: dilTIAZem 60 MG TAB PO ×4 (01:36→20:27)
[2022-09-21] MEDS: Pantoprazole 40 MG TABCR PO (06:39)
[2022-09-21 08:00] LABS: HGB 11.2 g/dL (13.5-17.5); MCH 30.7 pg (27.0-33.0); MCHC 33.9 % (32.0-36.0); MCV 90 fL (80-95); MPV 10.1 fL (8.0-11.0); Nucleated RBC 0.1 % (0.0-0.3); Platelet Count 205 10^3/uL (130-400); RBC 3.65 10^6/uL (4.36-5.78); WBC 19.21 10^3/uL (4.4-10.8)
--- NOTE | 2022-09-21 08:06 | NUR.NOTE ---
Nursing Note: S: Patient with increased work of breathing/decreased SPO2/and declining mental status. O: Tachypnea and Hypoxia. A: Maintain SPO2 >88%, Decrease coughing, encourage rest overnight on CPAP P: Swallow Eval/Increase Nebulizer treatments/Pulmonary toilet for mucous plug.
[2022-09-21 08:22] LABS: Absolute Eosinophil Count 0.19 10^3/uL (0.0-0.7); Absolute Lymphocyte Count 1.15 10^3/uL (1.2-3.4); Absolute Monocyte Count 0.19 10^3/uL (0.1-0.8); Absolute Neutrophil Count 17.67 10^3/uL (1.2-6.7); Bands % 3; Diff Comment Manual Differential; RBC Morphology Normal
[2022-09-21] MEDS: cefTRIAXone 2 GM/50 ML BAG IVPB (08:37)
[2022-09-21] MEDS: predniSONE 20 MG TAB 40 MG PO (08:39)
[2022-09-21] MEDS: Clopidogrel 75 MG TAB PO (08:39)
[2022-09-21] MEDS: Normal Saline Flush 10 ML SYR IVP (08:39)
[2022-09-21] MEDS: Cyanocobalamin 500 MCG TAB 1000 MCG PO (08:39)
[2022-09-21] MEDS: Citalopram 20 MG TAB PO (08:40)
[2022-09-21] MEDS: Finasteride 5 MG TAB PO (08:40)
[2022-09-21] MEDS: Magnesium Oxide 400 MG TAB PO (08:40)
[2022-09-21] MEDS: Folic Acid 1 MG TAB PO (08:40)
[2022-09-21] MEDS: Amiodarone 200 MG TAB 400 MG PO ×2 (08:40→20:26)
[2022-09-21] MEDS: Benzonatate 200 MG CAP PO ×3 (08:40→20:27)
[2022-09-21] MEDS: Baclofen 10 MG TAB PO ×3 (08:40→20:27)
[2022-09-21] MEDS: Ascorbic Acid 500 MG TAB PO ×2 (08:40→20:26)
[2022-09-21] MEDS: Apixaban 5 MG TAB PO ×2 (08:40→20:25)
[2022-09-21] MEDS: lamoTRIgine 100 MG TAB PO ×2 (08:40→20:29)
[2022-09-21] MEDS: guaiFENesin 600 MG TABCR PO ×2 (08:41→20:24)
[2022-09-21] MEDS: Spironolactone 25 MG TAB PO (08:41)
[2022-09-21] MEDS: Pregabalin 50 MG CAP 150 MG PO ×2 (08:41→20:23)
[2022-09-21] MEDS: Ferrous Sulfate 325 MG TAB PO ×2 (08:41→20:29)
[2022-09-21] MEDS: Normal Saline 500 ML IV (08:43)
[2022-09-21] MEDS: Furosemide 40 MG TAB PO (08:44)
--- NOTE | 2022-09-21 09:25 | PDOC.CMPRO ---
- If Service Date Differs Date of service: 09/21/22 Time of Service: 09:25 Care Management Progress Note S/O:Miguel was lying in bed when CM met with him. When asked how he was feeling he said not good. CM asked if his breathing was better and he stated that it was worse. The RT was in the room at that time and confirmed his breathing is worse and that he is now requiring high flow nasal oxygen. Miguel asked CM to call his daughter Jocelyn. He stated that he wanted to see her and talk to her. CM asked if it was about his advanced directives and he confirmed that it was. CM was able to reach Jocelyn after several attempts and she agreed to come visit Miguel. She has been moving her daughter and has not been able to get to the hospital, she explained. LACHO did mention the change in code status and Jocelyn indicated that she knew about the change. She has access to Miguel's portal and regularly checks for updates. Jocelyn informed LACHO that she understood how Miguel feels and although she wishes he made a different decision, she will support his desire to have a DNR/DNI code status. A: Miguel is a 67 year old man admitted on 09/14/22 with CHF P:Miguel's discharge plan is not clear at this time. He is not improving and, in fact, is now requiring high flow nasal oxygen. Last week Miguel has a Palliative Care consult and decided to change his code status to DNR/DNI. If he does improve he will likely return home with a resumption of home health services for nursing and PT. He will follow up with his community providers and plan of care as prescribed. CM will support Miguel and his discharge needs.
[2022-09-21] MEDS: VANCOMYCIN/WATER (PEG) 1 GM/200 ML BAG IVPB (10:12)
[2022-09-21] MEDS: Mometasone 220 MCG 14 DOSE INHALER 2 PUFF IH ×2 (10:41→20:07)
--- NOTE | 2022-09-21 10:44 | W.PULMCC ---
General Date of Service Date of service: 09/21/22 Time of Service: 08:20 Reason for Admission to ICU: Hypoxic respiratory failure Assessment and Plan Assessment and plan (1) Respiratory failure with hypoxia: Status: Acute (2) Acute on chronic HFrEF (heart failure with reduced ejection fraction): Status: Acute (3) Elevated troponin: Status: Acute (4) COPD with acute exacerbation: Status: Acute (5) Cocaine abuse: Status: Chronic (6) Hemoptysis: Status: Acute (7) Mucus plugging of bronchi: Status: Acute (8) Ventricular tachycardia (paroxysmal): Status: Acute (9) Atrial flutter with rapid ventricular response: Status: Acute Assessment and plan: This is a 67 yo man with HFrEF and VT/A.fib with aberrancy who uses cocain and was initially admitted to the ICU for arrythmia. He had a respiratory decompensation on med/surg that resulted in ICU readmission for respiratory support. He is requiring HFNC and CPAP at night. He has a right sided white out that is most consistent with mucus plugging, possibly from pneumonia. What complicates his course is also hemoptysis and so airway clearance was being held. His Eliquis was restarted and he did develop scant hemoptysis over the weekend. Given his respiratory status we will start with airway clearance to resolved the mucus plugging, but will need to keep a close eye on the hemoptysis. If he were to develop worsening hemoptysis, then I would hold the Eliquis (it is only for primary stroke prevention). If he develops marli hemoptysis I would hold the Eliquis and give him nebulized TXA. His O2 requirements are currently too high to consider bronchoscopy and he is DNR/DNI. Recommendations Pulmonary: Hypoxic respiratory failure - HFNC during day for sats >88% - CPAP at night - [id number] - out of bed to chair as able - airway clearance as below - recommend negative fluid balance until Cr bumps Mucus plugging - VibraPEP q2hrs - percussor to right lung - standing Xopenex and Atrovent q4hrs - CXR tomorrow morning Hemoptysis - scant currently - if worsens with secretion clearance, hold Eliquis - if marli hemoptysis recommend nebulized TXA - 500mg nebulized TXA q8 hours - DIC work up ordered - KAYLA and ANCA ordered (was negative in 2018) COPD - continue home inhalers - continue prednisone for now Cardiac: Demand ischemia - multifactorial - hypoxia and cocaine A. flutter and Vtach - on amiodarone - defer management to hospitalist HFrEF - EF 35% - defer management to hospitalist Renal: No acute concerns Recommend negative fluid balance daily unless Cr bumps I&O: Intake & Output 09/18/22 09/19/22 09/20/22 09/21/22 23:59 23:59 23:59 23:59 Intake Total 730 / 952 1564 / 1786 1896 / 1896 580 / 580 Output Total 2200 / 2550 2450 / 2450 1950 / 1950 500 / 500 Balance -1470 / -1598 -886 / -664 -54 / -54 80 / 80 Weight 65.8 kg 66.4 kg 65.1 kg Daily Fluid Goal:: Negative 500cc to 1L GI Nutrition: Has low salt diet Date of Last Bowel Movement: 09/20/22 Infectious Disease: Pneumonia - MRSA screen negative - discontinued vanc - continue ceftriaxone and doxy - would extend course to 10-14 days given clinical worsening - urine antigens for strep, legionella, histo and blasto ordered - fungitell ordered - secretion clearance as above Hematologic: Hemoptysis as above Neurologic: No acute concerns Endocrine: No acute concerns Lines: PIV Prophylaxis: on Eliquis on Protonix Code Status: Resuscitation Status DNR/DNI Subjective Critical and life-threatening events over the past 24 hours: He remains in the ICU on the same level of support as when I last saw him. His repeat CXR on 09/19 found a right sided white out most consistent with mucus plugging. He has had blood streaked sputum over the weekend and today. No clots or marli blood. Exam Narrative Exam Narrative: Gen:?moderate respiratory distress, well-nourished HENT:?PERRL, nasal turbinates normal without erythema or inflammation, moist oral? mucosa, Mallampati 2, No LAD or JVD Chest:?Moderate respiratory distress, normal appearance of chest, tachypnea, coarse crackles and limited air movement on right, no wheezes, normal inspiratory effort Heart:?regular rate and rhythym, no murmurs, rubs or gallops Abdomen:?Non-distended, soft, non tender Extremities:?No clubbing, edema, cyanosis, rashes Neuro:?AAOx3 , non focal Psych:?cooperative, appropriate mental affect Most Recent VS/Results Last Vital Signs Temp 36.8 C 09/21/22 08:59 Pulse 112 H 09/21/22 08:01 Resp 22 09/21/22 08:01 BP 113/71 09/21/22 08:01 Pulse Ox 95 09/21/22 08:01 Laboratory Results - last 24 hr 09/21/22 07:50 WBC 19.21 H RBC 3.65 L Hgb 11.2 L Hct 33.0 L MCV 90 MCH 30.7 MCHC 33.9 RDW 14.0 Plt Count 205 MPV 10.1 Immature Gran % 0.0 Neutrophils % 89.0 Band Neutrophils % 3 Lymphocytes % 6.0 Monocytes % 1.0 Eosinophils % 1.0 Basophils % 0.0 Nucleated RBC % 0.1 Absolute Neutrophils 17.67 H Absolute Lymphocytes 1.15 L Absolute Monocytes 0.19 Absolute Eosinophils 0.19 Absolute Basophils 0.00 RBC Morphology Normal Review of Systems All systems reviewed & are unremarkable except as noted in HPI and below Time spent with patient Time spent in Critical Care: 45 Time spent in Critical care included: Chart review, Documenting critically ill care, Time at immediate bedside and Discussing critically ill care with other medical staff Multi-Disciplinary Checklist Lines/Tubes CENTRAL LINE: no ARTERIAL LINE: no SOLOMON: no ENDOTRACHEAL TUBE: no ICU Maintenance GLUCOSE 140-180mg/dL: yes NUTRITION AT GOAL: yes PRESSURE ULCER: no RESTRAINTS: no ANTIBIOTICS(if yes, consider Stewardship): Yes Social Issues FAMILY UPDATED: no, Reason/Intervention: Patient is A&Ox3 and able to update family PT/OT: yes 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
[2022-09-21] MEDS: DOXYCYCLINE 100 MG in Normal Saline 100 ML IVPB ×2 (12:06→23:48)
--- NOTE | 2022-09-21 13:40 | W.PM.PROGNOT ---
Date of Service Date of service: 09/20/22 Time of Service: 09:00 Assessment and Plan Assessment and plan (1) Ventricular tachycardia (paroxysmal): Status: Acute Assessment and plan: Continue PO amiodarone. Certainly at risk for VT given low LVEF (35%). He had an echo on 08/17/22. (2) Atrial flutter with rapid ventricular response: Status: Acute Assessment and plan: As above Rates with improved controlled now with addition of amiodarone. Still mildly tachycardic. Would consider increasing dose of cardizem but not certain his BP would tolerate it. Cont apixiban for AC. (3) Acute on chronic HFrEF (heart failure with reduced ejection fraction): Status: Acute Assessment and plan: In acute exacerbation on 09/18 and moved to the ICU. Lasix 40mg IV given with good diruetic effect. LVEF 35% on echo 08/17/22 at [facility] [place]. If not for cocaine use, beta blockers would be an excellent addition to his regimen. Encourage cessation of cocaine. (4) Hemoptysis: Status: Acute Assessment and plan: Intermittent bright red to dark red blood in sputum. Restarted apixiban. Continue. plavix. Consulted pulmonology. (5) Elevated troponin: Status: Acute Assessment and plan: Suspect demand ischemia given arrhythmic events and CHF exacerbation Troponin trended downward. Because of events on 09/18 another troponin drawn and was 66. Had previously decreased from 141 to 104. EKG was unchanged. (6) COPD with acute exacerbation: Status: Acute Assessment and plan: Does appear to have a bacterial component by chest imaging Continue antibiotics,steroids, mucinex. Nebs: levalbuterol, atrovent given rapid rates/arrhythmias on this admission. (7) Cocaine abuse: Status: Chronic Assessment and plan: Advised to quit. Likely responsible for the cardiomyopathy and the arrhythmias (8) Hypokalemia: Status: Resolved Assessment and plan: Normalized. (9) DVT prophylaxis: Status: Acute Assessment and plan: Eliquis. (10) Discharge planning issues: Status: Acute Assessment and plan: Full code C/s palliative care (11) Respiratory failure with hypoxia: Status: Acute Assessment and plan: Worsened; placed on CPAP at [id number] Transferred to ICU. Now on NC 4-6 liters. Diurese. CXR in AM. (12) Pneumonia: Status: Acute Assessment and plan: Bilateral infiltrates, much more on the right. Elevated WBC count that has been modestly increasing. Procal was 0.2 on 09/14. Repeat pending. On Ceftriaxone and Doxycycline. Increased Ceftriaxone to 2g daily. Vancomycin initiated. MRSA screen pending. Qualifiers: Pneumonia type: due to unspecified organism Laterality: bilateral Lung location: lower lobe of lung Qualified Code(s): J18.9 - Pneumonia, unspecified organism Subjective Subjective Patient reports: no new complaints and afebrile; denies diarrhea, nausea or vomiting Interval history since last seen: Continues to have coughing paroxysms. Feels tired. Appetite OK Exam Narrative Exam Narrative: Gen: Pt is sitting up in bed eating breakfast; pleasant/cooperative. HENT: sclera clear. MMM. Chest: Coarse breath sounds throughout. Mild increased WOB. Intermittent harsh cough / no sputum produced. Heart: RRR. No murmur. Abdomen: Non-distended, soft, non tender Extremities: No edema, calf tenderness. Neuro: AAOx3 , no focal motor weakness. Psych: affect appropriate. Objective Last Vital Signs Temp 36.8 C 09/21/22 08:59 Pulse 112 H 09/21/22 08:01 Resp 22 09/21/22 08:01 BP 113/71 09/21/22 08:01 Pulse Ox 95 09/21/22 08:01 Laboratory Results - last 24 hr 09/21/22 07:50 WBC 19.21 H RBC 3.65 L Hgb 11.2 L Hct 33.0 L MCV 90 MCH 30.7 MCHC 33.9 RDW 14.0 Plt Count 205 MPV 10.1 Immature Gran % 0.0 Neutrophils % 89.0 Band Neutrophils % 3 Lymphocytes % 6.0 Monocytes % 1.0 Eosinophils % 1.0 Basophils % 0.0 Nucleated RBC % 0.1 Absolute Neutrophils 17.67 H Absolute Lymphocytes 1.15 L Absolute Monocytes 0.19 Absolute Eosinophils 0.19 Absolute Basophils 0.00 RBC Morphology Normal
--- NOTE | 2022-09-21 13:48 | W.PM.PROGNOT ---
Date of Service Date of service: 09/21/22 Time of Service: 13:53 Assessment and Plan Assessment and plan (1) Ventricular tachycardia (paroxysmal): Status: Acute Assessment and plan: Continue PO amiodarone. Certainly at risk for VT given low LVEF (35%). He had an echo on 08/17/22. (2) Atrial flutter with rapid ventricular response: Status: Acute Assessment and plan: As above Rates with improved controlled on amiodarone. Still mildly tachycardic. Would consider increasing dose of cardizem but still not certain his BP would tolerate it. Cont apixiban for AC. (3) Acute on chronic HFrEF (heart failure with reduced ejection fraction): Status: Acute Assessment and plan: In acute exacerbation on 09/18 and moved to the ICU. Lasix 40mg IV given with good diruetic effect. LVEF 35% on echo 08/17/22 at [facility] [place] If not for cocaine use, beta blockers would be an excellent addition to his regimen. Encourage cessation of cocaine. (4) Hemoptysis: Status: Acute Assessment and plan: Intermittent bright red to dark red blood in sputum. Restarted apixiban. Continue. plavix. Consulted pulmonology; now going to add vibrapep and percussion. (5) Elevated troponin: Status: Acute Assessment and plan: Suspect demand ischemia given arrhythmic events and CHF exacerbation Troponin trended downward. Because of events on 09/18 another troponin drawn and was 66. Had previously decreased from 141 to 104. EKG was unchanged. (6) COPD with acute exacerbation: Status: Acute Assessment and plan: Does appear to have a bacterial component by chest imaging Continue antibiotics,steroids, mucinex. Nebs: levalbuterol, atrovent given rapid rates/arrhythmias on this admission. (7) Cocaine abuse: Status: Chronic Assessment and plan: Advised to quit. Likely responsible for the cardiomyopathy and the arrhythmias (8) Hypokalemia: Status: Resolved Assessment and plan: Normalized. (9) DVT prophylaxis: Status: Acute Assessment and plan: Sarah. (10) Discharge planning issues: Status: Acute Assessment and plan: Full code C/s palliative care (11) Respiratory failure with hypoxia: Status: Acute Assessment and plan: Related to significant PNA with near white out on R side. Worsened on 09/18; placed on CPAP at [id number] Transferred to ICU. Now on NC 4-6 liters. Diurese. CXR in AM. (12) Pneumonia: Status: Acute Assessment and plan: Bilateral infiltrates, much more on the right. Elevated WBC count that has been modestly increasing. Procal was 0.2 on 09/14. On Ceftriaxone and Doxycycline. Increased Ceftriaxone to 2g daily. Vancomycin initiated. MRSA screen negative. WBC count has decrease since yesterday when vancomycin initiated. Co-incidence? Qualifiers: Pneumonia type: due to unspecified organism Laterality: bilateral Lung location: lower lobe of lung Qualified Code(s): J18.9 - Pneumonia, unspecified organism Subjective Subjective Patient reports: tolerating a regular diet, shortness of breath and afebrile; denies nausea or vomiting Interval history since last seen: Feels he passes out very briefly at times with coughing paroxysms. Exam Narrative Exam Narrative: Gen: Pt is sitting in chair eating breakfast; pleasant/cooperative. Appears fatigued HENT: sclera clear. MMM. Chest: Coarse breath sounds throughout. Mild increased WOB. Intermittent harsh cough / no sputum produced. Heart: RRR. No murmur. Abdomen: Non-distended, soft, non tender Extremities: No edema, calf tenderness. Neuro: AAOx3 , no focal motor weakness. Psych: affect appropriate. Objective Last Vital Signs Temp 36.8 C 09/21/22 08:59 Pulse 112 H 09/21/22 08:01 Resp 22 09/21/22 08:01 BP 113/71 09/21/22 08:01 Pulse Ox 95 09/21/22 08:01 Laboratory Results - last 24 hr 09/21/22 07:50 WBC 19.21 H RBC 3.65 L Hgb 11.2 L Hct 33.0 L MCV 90 MCH 30.7 MCHC 33.9 RDW 14.0 Plt Count 205 MPV 10.1 Immature Gran % 0.0 Neutrophils % 89.0 Band Neutrophils % 3 Lymphocytes % 6.0 Monocytes % 1.0 Eosinophils % 1.0 Basophils % 0.0 Nucleated RBC % 0.1 Absolute Neutrophils 17.67 H Absolute Lymphocytes 1.15 L Absolute Monocytes 0.19 Absolute Eosinophils 0.19 Absolute Basophils 0.00 RBC Morphology Normal
[2022-09-21] MEDS: Levalbuterol 1.25 MG/3 ML UPD VIAL UPD (14:35)
[2022-09-21 14:58] LABS: INR 1.1 (0.9-1.1); PTT Activated 26.5 sec (21.0-27.5); Prothrombin Time 11.5 sec (9.3-11.0)
[2022-09-21 15:19] LABS: D-Dimer 2365 ng/mlFEU (<500)
[2022-09-21] MEDS: Tamsulosin 0.4 MG CAPCR PO (20:25)
[2022-09-21] MEDS: Atorvastatin 40 MG TAB PO (20:26)
[2022-09-21 21:13] LABS: Fibrinogen 857 mg/dL (171-384)
[2022-09-21 23:32] LABS: Legionella Ag Detection Urine Negative (Negative)
[2022-09-22] VITALS (26 sets, daily range): BP systolic 96–110; BP diastolic 66–80; PULSE 76–112; RESP 1–42; TEMP 33–37.1; O2SAT 80–96
[2022-09-22] MEDS: Normal Saline Flush 10 ML SYR IVP ×4 (00:38→22:15)
--- NOTE | 2022-09-22 01:53 | NUR.NOTE ---
Nursing Note: Patient awake and alert. Oral hygiene with mouthwash-rinse and spit. Medicated with Robitussin and Ativan for anxiety r/t going on CPAP overnight. Partial bath given, adhesive removed from skin new electrodes applied. Offered assistance to bedside commode prior to settling in. Declined.
[2022-09-22] MEDS: Ipratropium 0.5 MG/2.5 ML UPD VIAL UPD ×2 (02:05→08:21)
[2022-09-22] MEDS: dilTIAZem 60 MG TAB PO (03:21)
[2022-09-22] MEDS: guaiFENesin/D-METHORPHAN HB 5 ML CUP 10 ML PO (03:26)
[2022-09-22 05:51] LABS: Abs Immature Grans 0.81 10^3/uL (0.0-0.06); Absolute Basophil Count 0.04 10^3/uL (0.0-0.2); Absolute Eosinophil Count 0.06 10^3/uL (0.0-0.7); Absolute Neutrophil Count 16.47 10^3/uL (1.2-6.7); Basophils % 0.2; Eosinophils % 0.3; HCT 31.2 % (40.0-50.0); HGB 10.4 g/dL (13.5-17.5); Immature Grans % 4.2; Lymphocytes % 6.6; MCH 30.2 pg (27.0-33.0); MCHC 33.3 % (32.0-36.0); MCV 91 fL (80-95); MPV 10.5 fL (8.0-11.0); Monocytes % 3.3; Neutrophils % 85.4; Platelet Count 216 10^3/uL (130-400); RBC 3.44 10^6/uL (4.36-5.78); RDW 13.7 % (11.8-14.1); RDW-SD 45.1 fL; WBC 19.29 10^3/uL (4.4-10.8)
[2022-09-22 05:58] LABS: Anion Gap 6.6 mmol/L (3-11); BUN 26 mg/dL (7-18); CO2 25.4 mmol/L (21.0-32.0); CREATININE 1.1 mg/dL (0.70-1.30); Calcium 8.2 mg/dL (8.5-10.1); Chloride 92 mmol/L (98-107); Estimated GFR 73.58 (mL/min/1.73m2); Glucose 121 mg/dL (74-106); Potassium 4.3 mmol/L (3.5-5.1)
[2022-09-22 06:01] LABS: Absolute Lymphocyte Count 1.27 10^3/uL (1.2-3.4); Absolute Monocyte Count 0.64 10^3/uL (0.1-0.8)
[2022-09-22 06:20] LABS: Sodium 124 mmol/L (136-145)
[2022-09-22 07:00] LABS: Diff Comment Agrees w/ Instrument; RBC Morphology Normal
--- NOTE | 2022-09-22 08:32 | CMPROGNOTE_ITS ---
- If Service Date Differs Date of service: 09/22/22 Time of Service: 08:32 Care Management Progress Note S/O:Miguel was lying in bed when CM met with him. He continues to struggle with his breathing and is on high flow nasal O2. Miguel made the decision to transition to comfort care this morning. He discussed it with his daughter Jocelyn last night and again this morning.Jocelyn was also able to reach her 2 brothers and all 3 children came to visit. Miguel requested to complete paperwork that would ensure that his son Marciano receive his trailer when he (Miguel) passes. The ICU psychiatric secretary was able to assist with the process and the document was notarized by a hospital notary. CM met with Miguel when all of the children left and he appeared much calmer and relaxed. He had received morphine and Ativan and verbalized that he felt better knowing that the trailer would go to Marciano and that his children are supporting his decision. He acknowledged that he understands that they are going to have a hard time for a while, but he also stated that he does not feel he can go on much longer. He informed CM that he hoped to be able to nap as soon as he finished lunch and that the children would return later this afternoon. A: Miguel is a 67 year old man admitted on 09/14/22 with CHF P:Miguel transitioned to comfort care this morning. His breathing is not improving and he is struggling. His children support his decision, albeit, reluctantly. Miguel will now remain at [facility] for end of life care. He will continue to be treated with oxygen as it is very much a comfort measure for him. CM will continue to support Miguel and his family through this difficult time.
--- NOTE | 2022-09-22 09:15 | W.PULMCC ---
General Date of Service Date of service: 09/22/22 Time of Service: 08:00 Reason for Admission to ICU: Hypoxic respiratory failure Assessment and Plan Assessment and plan (1) Respiratory failure with hypoxia: Status: Acute (2) Acute on chronic HFrEF (heart failure with reduced ejection fraction): Status: Acute (3) Elevated troponin: Status: Acute (4) COPD with acute exacerbation: Status: Acute (5) Cocaine abuse: Status: Chronic (6) Hemoptysis: Status: Acute (7) Mucus plugging of bronchi: Status: Acute (8) Ventricular tachycardia (paroxysmal): Status: Acute (9) Atrial flutter with rapid ventricular response: Status: Acute Assessment and plan: This is a 67 yo man with HFrEF and VT/A.fib with aberrancy who uses cocaine and was initially admitted to the ICU for arrythmia. He had a respiratory decompensation on med/surg that resulted in ICU readmission for respiratory support. He is requiring HFNC and CPAP at night. He has a right sided white out that is most consistent with mucus plugging, possibly from pneumonia. What complicates his course is also hemoptysis and so airway clearance was being held. His Eliquis was restarted and he did develop scant hemoptysis over the weekend. This morning he is very clear on his wishes to . He says he is tired and does not want any further supportive care with intent to cure. He wishes for a comfort directed plan. His daughter will be arriving this morning to spend time with him prior to him receiving a goal directed plan, but will hold off on other medications or diagnostics in light of his wishes. Recommendations Pulmonary: Hypoxic respiratory failure - HFNC and NRB mask until visit with daughter complete - confort directed plan Mucus plugging - hold off on further airway clearance Hemoptysis - did worsen with more aggressive airway clearance - holding all therapies given comfort care COPD - D/C meds Cardiac: Demand ischemia - multifactorial - hypoxia and cocaine A. flutter and Vtach - D/C meds HFrEF - EF 35% Renal: No acute concerns I&O: Intake & Output 09/19/22 09/20/22 09/21/22 09/22/22 23:59 23:59 23:59 23:59 Intake Total 1564 / 1786 1896 / 1896 1810 / 1810 117.55 / 117.55 Output Total 2450 / 2450 1949 / 1949 1625 / 1625 400 / 400 Balance -886 / -664 -54 / -54 185 / 185 -282.45 / -282.45 Weight 66.4 kg 65.1 kg 62.8 kg GI Nutrition: recommend pleasure diet Date of Last Bowel Movement: 09/21/22 Infectious Disease: Pneumonia - D/C antibiotics Hematologic: Hemoptysis as above Neurologic: Comfort directed care - prn morphine, ativan, promethazine, glycopyrrolate ordered by hospitalist Endocrine: No acute concerns Lines: PIV Prophylaxis: discontinued Code Status: Resuscitation Status DNR/DNI Subjective Critical and life-threatening events over the past 24 hours: Miguel refused to wear CPAP overnight. This morning he tells me he is tired and just done with fighting. He wants to . He said he spoke with his daughter for a long time last night and told her his wishes as well. His messaging has been relatively consistent about this, even during past admissions per case management. He understands that once we removed the oxygen support and give him pain and anxiety medicine he will . Given his O2 needs, I suspect this will be relatively quickly. He understands this all and wants to proceed with a comfort directed plan. He wants to hold off on removing oxygen and receiving pain and anxiety medicine until his daughter arrives this morning. His daughter was called this morning and his wishes and the plan was discussed with her. She is on her way in this morning. Exam Narrative Exam Narrative: Gen:?moderate respiratory distress, well-nourished HENT:?PERRL Chest:?Moderate respiratory distress, normal appearance of chest, tachypnea, coarse crackles and limited air movement on right, no wheezes, normal inspiratory effort Heart:?regular rate and rhythym, no murmurs, rubs or gallops Abdomen:?Non-distended, soft, non tender Extremities:?No clubbing, edema, cyanosis, rashes Neuro:?AAOx3 , non focal Psych:?cooperative, appropriate mental affect Most Recent VS/Results Last Vital Signs Temp 37.1 C 09/22/22 07:37 Pulse 100 H 09/22/22 08:21 Resp 30 H 09/22/22 08:21 BP 96/70 L 09/22/22 02:01 Pulse Ox 82 L 09/22/22 08:21 Laboratory Results - last 24 hr 09/21/22 09/22/22 09/22/22 11:17 04:52 04:52 WBC 19.29 H RBC 3.44 L Hgb 10.4 L Hct 31.2 L MCV 91 MCH 30.2 MCHC 33.3 RDW 13.7 Plt Count 216 MPV 10.5 Immature Gran % 4.2 Neutrophils % 85.4 Lymphocytes % 6.6 Monocytes % 3.3 Eosinophils % 0.3 Basophils % 0.2 Nucleated RBC % 0.0 Absolute Neutrophils 16.47 H Absolute Lymphocytes 1.27 Absolute Monocytes 0.64 Absolute Eosinophils 0.06 Absolute Basophils 0.04 RBC Morphology Normal PT 11.5 H INR 1.1 APTT 26.5 D-Dimer 2365 H Sodium 124 L Potassium 4.3 Chloride 92 L Carbon Dioxide 25.4 Anion Gap 6.6 BUN 26 H Creatinine 1.1 Est GFR (CKD-EPI 2020) 73.58 Glucose 121 H Calcium 8.2 L Vancomycin Trough 09/22/22 09:00 WBC RBC Hgb Hct MCV MCH MCHC RDW Plt Count MPV Immature Gran % Neutrophils % Lymphocytes % Monocytes % Eosinophils % Basophils % Nucleated RBC % Absolute Neutrophils Absolute Lymphocytes Absolute Monocytes Absolute Eosinophils Absolute Basophils RBC Morphology PT INR APTT D-Dimer Sodium Potassium Chloride Carbon Dioxide Anion Gap BUN Creatinine Est GFR (CKD-EPI 2020) Glucose Calcium Vancomycin Trough Cancelled Review of Systems All systems reviewed & are unremarkable except as noted in HPI and below Time spent with patient Time spent in Critical Care: 35 Time spent in Critical care included: Coordination of care, Chart review, Documenting critically ill care, Time at immediate bedside and Discussing critically ill care with other medical staff
--- NOTE | 2022-09-22 10:39 | NUR.NOTE ---
09/22/22 Adam BOONE spake to Hallie Banks at [facility] and patient was declined for organ donation. However, we are to call back after patient dies and they will screen for tissue donation. [phone] [facility] Nursing Note:
--- NOTE | 2022-09-22 10:45 | NUR.NOTE ---
Patients cell phone given to hesham Tariq per patients request. Nursing Note:
[2022-09-22] MEDS: MORPHine 4 MG/ML SYR IVP ×5 (10:49→19:36)
[2022-09-22] MEDS: Normal Saline Flush 10 ML SYR ×4 (10:50→14:57)
[2022-09-22] MEDS: LORazepam 2 MG/ML VIAL 1 MG IVP ×3 (12:01→22:15)
[2022-09-22] MEDS: Acetaminophen 500 MG TAB PO (12:02)
[2022-09-22 14:24] LABS: ANA Interpretation Negative (Negative); ANCA Interpretation Negative (Negative)
[2022-09-22] MEDS: Glycopyrrolate 1 MG TAB PO (14:55)
[2022-09-22 15:24] LABS: Streptococcus Pneumoniae Ag, U Negative (Negative)
--- NOTE | 2022-09-22 15:29 | CHAPLAIN ---
Miguel switched to comfort measures this morning. He remained on high flow oxygen before and while his children were visiting. His daughter Jocelyn stepped to helped Miguel complete a will as he requested so that he can leave his trailer to his son, Marciano. The will was notarized and witnessed. Both Miguel's sons, Jocelyn, and his exwife Hillary spent time with him this morning. Another friend, Tami is here this afternoon. Pastor Rivas from the [facility] visited this morning, as Miguel requested and prayed with him. Miguel stated this morning that his body is giving up and he knows he won't bounce back as he usually does. He was having pains, in his chest and body, but said the medication had relieved those. He is worried about his kids. We talked about how they likely have inherited some of his stubbornness and are fighters like him. Jocelyn said it has been difficult dealing with her brother and half brother as they as both addicts with mental health concerns. Miguel is familiar to [facility] staff and feels comfortable being here. I will continue to visit through out the day.
--- NOTE | 2022-09-22 15:35 | NUR.NOTE ---
Patient gave verbal approval for us to call Tami (his partner) when he passes or if he has a sudden turn for the worse that we feel she should be here for. We are allowed to give updates on him to Tami but she is not to be added to his HIPPA. Nursing Note:
[2022-09-22 15:58] LABS: Fungitell Qualitative Negative (Negative); Fungitell Quantitative Value <31 pg/mL (<60 pg/mL)
--- NOTE | 2022-09-22 17:32 | W.PM.PROGNOT ---
Date of Service Date of service: 09/22/22 Time of Service: 17:33 Assessment and Plan Assessment and plan (1) Ventricular tachycardia (paroxysmal): Status: Acute Assessment and plan: Medications stopped Comfort measure only. (2) Atrial flutter with rapid ventricular response: Status: Acute Assessment and plan: As above Cont apixiban for AC. (3) Acute on chronic HFrEF (heart failure with reduced ejection fraction): Status: Acute Assessment and plan: As above. (4) Hemoptysis: Status: Acute Assessment and plan: As above. (5) Elevated troponin: Status: Acute Assessment and plan: Suspect demand ischemia given arrhythmic events and CHF exacerbation As above. (6) COPD with acute exacerbation: Status: Acute Assessment and plan: As above (7) Cocaine abuse: Status: Chronic Assessment and plan: As above (8) Discharge planning issues: Status: Acute Assessment and plan: Comfort measures. (9) Respiratory failure with hypoxia: Status: Acute Assessment and plan: As above. (10) Pneumonia: Status: Acute Assessment and plan: As above. Qualifiers: Pneumonia type: due to unspecified organism Laterality: bilateral Lung location: lower lobe of lung Qualified Code(s): J18.9 - Pneumonia, unspecified organism Subjective Subjective Interval history since last seen: Patient made the decision to be comfort status. Family (daughter, 2 sons) and ex- visiting. Exam Narrative Exam Narrative: Oxygen being delivered via facemask. Eyes closed. Appears comfortable. Arouses to verbal stimuli but doesn't interact. Objective Last Vital Signs Temp 37.1 C 09/22/22 07:37 Pulse 100 H 09/22/22 08:21 Resp 30 H 09/22/22 08:21 BP 110/80 09/22/22 04:00 Pulse Ox 96 09/22/22 10:00 Laboratory Results - last 24 hr 09/21/22 09/21/22 09/21/22 07:50 13:55 14:42 WBC RBC Hgb Hct MCV MCH MCHC RDW Plt Count MPV Immature Gran % Neutrophils % Lymphocytes % Monocytes % Eosinophils % Basophils % Nucleated RBC % Absolute Neutrophils Absolute Lymphocytes Absolute Monocytes Absolute Eosinophils Absolute Basophils RBC Morphology Fibrinogen 857 H Sodium Potassium Chloride Carbon Dioxide Anion Gap BUN Creatinine Est GFR (CKD-EPI 2020) Glucose Calcium Vancomycin Trough KAYLA Titer KAYLA Titer 2 KAYLA Titer 3 KAYLA Interpretation ANCA Immunofluorescen ANCA Titer ANCA Pattern Urine Legionella Ag Negative Ur Strep pneumoniae Ag Negative B-(1,3)-D-Glucan Quant <31 B-(1,3)-D-Glucan Qual Negative 09/21/22 09/22/22 09/22/22 14:42 04:52 04:52 WBC 19.29 H RBC 3.44 L Hgb 10.4 L Hct 31.2 L MCV 91 MCH 30.2 MCHC 33.3 RDW 13.7 Plt Count 216 MPV 10.5 Immature Gran % 4.2 Neutrophils % 85.4 Lymphocytes % 6.6 Monocytes % 3.3 Eosinophils % 0.3 Basophils % 0.2 Nucleated RBC % 0.0 Absolute Neutrophils 16.47 H Absolute Lymphocytes 1.27 Absolute Monocytes 0.64 Absolute Eosinophils 0.06 Absolute Basophils 0.04 RBC Morphology Normal Fibrinogen Sodium 124 L Potassium 4.3 Chloride 92 L Carbon Dioxide 25.4 Anion Gap 6.6 BUN 26 H Creatinine 1.1 Est GFR (CKD-EPI 2020) 73.58 Glucose 121 H Calcium 8.2 L Vancomycin Trough KAYLA Titer Not Applicable KAYLA Titer 2 Not Applicable KAYLA Titer 3 Not Applicable KAYLA Interpretation Negative ANCA Immunofluorescen Negative ANCA Titer Not Applicable ANCA Pattern Not Applicable Urine Legionella Ag Ur Strep pneumoniae Ag B-(1,3)-D-Glucan Quant B-(1,3)-D-Glucan Qual 09/22/22 09:00 WBC RBC Hgb Hct MCV MCH MCHC RDW Plt Count MPV Immature Gran % Neutrophils % Lymphocytes % Monocytes % Eosinophils % Basophils % Nucleated RBC % Absolute Neutrophils Absolute Lymphocytes Absolute Monocytes Absolute Eosinophils Absolute Basophils RBC Morphology Fibrinogen Sodium Potassium Chloride Carbon Dioxide Anion Gap BUN Creatinine Est GFR (CKD-EPI 2020) Glucose Calcium Vancomycin Trough Cancelled KAYLA Titer KAYLA Titer 2 KAYLA Titer 3 KAYLA Interpretation ANCA Immunofluorescen ANCA Titer ANCA Pattern Urine Legionella Ag Ur Strep pneumoniae Ag B-(1,3)-D-Glucan Quant B-(1,3)-D-Glucan Qual
[2022-09-23] MEDS: LORazepam 2 MG/ML VIAL 1 MG IVP ×5 (01:02→08:34)
[2022-09-23] MEDS: MORPHine 4 MG/ML SYR IVP ×4 (01:03→07:52)
[2022-09-23 01:45] VITALS: TEMP 34
[2022-09-23] MEDS: Normal Saline Flush 10 ML SYR IVP ×5 (01:49→08:36)
--- NOTE | 2022-09-23 08:50 | PDOC.CMPRO ---
- If Service Date Differs Date of service: 09/23/22 Time of Service: 08:50 Care Management Progress Note S/O:Miguel was lying in bed when CM met with him; He appeared comfortable and at peace. Miguel transitioned to comfort care yesterday and made the decision to remove his oxygen this morning. He peacefully shortly after removing his oxygen. A: Miguel is a 67 year old man admitted on 09/14/22 with CHF P:Miguel transitioned to comfort care yesterday and peacefully this morning at 9:30 am.
--- NOTE | 2022-09-23 10:48 | NUR.NOTE ---
Patient was more restless and had increased WOB after coming off the HFNC oxygen per patient request. I medicated him with morphine and ativan when removing oxygen which helped but patient was still mildly labored and restless intermittently. Re-dosed ativan 30 min later and patient was resting soundly without respiratory distress. FARRUKH Amador was in the room with the patient approximately 45 min later and the patient took a breath and stopped breathing. I assessed the patient for over 1 minute and found no heartbeat on auscultation and no pulse. Patient had cyanosis around his mouth with a peacefully resting state on his countenance. Dr. Sloan was notified and assess the patient and pronounced the patient . I notified Jocelyn Pérez (daughter) of the patient's . She expressed she expected it and we talked over the next steps and the many stressors that she is facing. At her request, I spoke to the [facility] home and the crematorium to determine costs and options. [facility] will black pickler the body and handle having it cremated for $3,300. There is also state aid they would apply for to reduce the guerrero by $1,100. The family can get a body transportation permit and fill out a certification form and deliver the body to the crematorium themselves with a cost of $830 (includes cremation container). However, there may be limitations on timing given the holiday. Jocelyn asked to discuss the options with her when she arrives to visit the patient. Postmortem care performed including patient being shaved (request per patient yesterday). Family on their way to visit. Tami (patient's friend) was updated that the patient had based on patient's verbal consent to me yesterday. It was also explained to her that the patient had declined placing her on the HIPPA so the nurses were limited in the information that they could share legally. She was understanding and plans to follow-up with the family on further questions. Nursing ward supervisor Yanely Alba and marine diesel technician Lana Diaz notified of patient's . and Nursing Note:
--- NOTE | 2022-09-23 11:02 | NUR.NOTE ---
Tami Contact Number: [phone] Leave message on machine. Nursing Note:
--- NOTE | 2022-09-23 11:58 | EXPE_ITS ---
Date of service: 09/23/22 Time of Service: 12:01 Discharge Plan Disposition Patient Disposition: Discharge Details Reason For Visit: CHF Admit Date/Time: 09/14/22 23:34 Admit Provider: Miguel Macias Attending Provider: Miguel Macias Primary Care Provider: Aissatou Briggs Hospital Course Hospital Course: 67 male with h/o dilated cardiomyopathy, COPD, Aflutter on Eliquis and Digoxin--used cocaine the morning of presentation; c/o SOB and some CP. On arrival was in respiratory distress with pulse 140s, reported out as AFlutter. Initial EKG non-specific STTW changes, trop 125, BNP [address] chest showing pulmonary edema versus multifocal basilar pneumonia. Put on BiPAP, Given Cardizem 15 IV with reported drop BP to 70/sys, though with transient slowing of rate reported as showing flutter waves. Given Lasix 20 then 60 IV with good urine output, given Rocephin 1 gm along with duoneb and steroids. Cardiology was consulted and administered Digoxin 0.5 IVP. Initial hospitalist review of telemetry showed a rate of approx 130, mostly regular with occasional irregularity during which I cannot identify flutter waves or definite P-waves, looks most like coarse AF. During visit I attempt CSP w/o effect. See Diagnosis for detail of each hospital problem. On 09/22/22 patient made the decision to pursue comfort measure only. PRN IV morphine and ativan administered. Supplemental O2 stopped the morning of 09/23. Patient endorsed wanting to stop supplemental O2. ? Discharge Data Cause of : Pneumonia of both lungs due to infectious organism Discharge Sum: Prov Provider Consults: 09/15/22 17:07 Palliative Care Consult [CONS] Routine Consultation Status:: Follow-up needed Clarification:: Manage/follow per spec. Reason for consult:: cardiomyopathy, discuss goals of care 09/17/22 07:32 Physical Therapy Consult [CONS] Routine Consulting Provider: Stevenson Bentley,Addie Priority: Non-Urgent Reson for Non-Urgent Priority: Limited Ability 09/17/22 10:53 Pulmonology Consult [CONS] Routine Consulting Provider: Eloise Chance Consultation Status:: Follow-up needed Clarification:: Manage/follow per spec. Reason for consult:: hemoptysis Discharge Sum: Diag PCOD Cause of : Pneumonia of both lungs due to infectious organism Contributing Factors (1) Ventricular tachycardia (paroxysmal): Contributing factors: Amiodarone drip followed by oral amniodarone administered for control. (2) Atrial flutter with rapid ventricular response: Contributing factors: After initiating amiodarone for vtach, improved control noted. Continued cardizem. Digoxin discontinued. Apixiban for AC. (3) Acute on chronic HFrEF (heart failure with reduced ejection fraction): Contributing factors: LVEF 35% on echo 08/17/22 at [facility]. D/t cocaine use, beta duarte not initiated. (4) Hemoptysis: Contributing factors: Eliquis initially held then restarted. (5) Elevated troponin: Contributing factors: Suspect demand ischemia given arrhythmic events and CHF exacerbation Troponin trended downward. (6) COPD with acute exacerbation: Contributing factors: Appeared to have a bacterial component by chest imaging Continue antibiotics,steroids, mucinex.? Nebs: levalbuterol, atrovent given rapid rates/arrhythmias on this admission. (7) Cocaine abuse: Contributing factors: Long-standing. (8) Respiratory failure with hypoxia: Contributing factors: Randy acute failure on chronic failure on 09/18. Placed on BiPaP but did not tolerate for more than 1/2 hour. Pulmonary/Intensive care medicine followed. High-flow O2 initiated with intermittent use of BiPAP. (9) Pneumonia: Contributing factors: Bilateral infiltrates that worsened particularly on the right. Elevated WBC count. Procal was 0.2 on 09/14.? On Ceftriaxone and Doxycycline.? Increased Ceftriaxone to 2g daily. Discharge Sum: Summary Date and Time Admission Date: 09/14/2211/14/22 23:34 Date of : 09/23/22 Time of : 09:15 Summary Details: Time of 0915. Pronounced by physician/Dr Sloan at 0918. Additional Data Confirmation of as documented by pronouncing clinician: no pulse and no respirations Family: contacted Attending/PCP notified?: Yes Attending Physician: Miguel Price Was code activated?: No Autopsy requested?: No death claim examiner notified?: No Organ bank notified?: No Advance directives: Yes Hospice patient?: No
--- NOTE | 2022-09-23 14:10 | CHAPLAIN ---
Miguel about 9:15 a.m. The Meggan CHADWICK was with him when he . I last spoke to Miguel last evening. He was quiet and resting and we had a short conversation before he fell back asleep. I stayed to keep him company for another half hour or so. Miguel's daughter, Jocelyn was notified of Miguel's this morning. She said she would be in to see him. I asked ICU staff to notify me when she arrives. As of 2:00 p.m. she hasn't arrived.
--- NOTE | 2022-09-23 15:05 | NUR.NOTE ---
The patient's body remained in the ICU waiting for the family to visit. Jocelyn Pérez had stated they were coming down first thing this morning when I spoke to them around 0930 but when they had not arrived by 1300 I called Jocelyn back and they stated they had been delayed. They then planned to come up by 1400 but by 1500 they had not arrived and the furnace room supervisor was notified to take the body to the [facility] [place] where the family could still visit. I tried calling Jocelyn with no answer and voicemail is full. lNursing Note:
[2022-09-25 23:42] LABS: Blastomyces Ag Result Not Detected; Blastomyces Ag Value Not Detected
== END 2022-09-23 09:18 | disposition expired | DRG 291 ==
LOC: ER 09-15 00:19 → ICU 09-15 00:25 → MS 09-17 13:47 → ICU 09-18 09:20
PROVIDERS: Family Medicine; Internal Medicine; Student in an Organized Health Care Education/Training Program; Admitting Provider General Practice; Emergency Provider Physician Assistant; PCP Nurse Practitioner; Visit Provider General Practice
DX: I11.0 Hypertensive heart disease with heart failure (principal); I50.23 Acute on chronic systolic (congestive) heart failure; J18.9 Pneumonia, unspecified organism; J96.21 Acute and chronic respiratory failure with hypoxia; F11.20 Opioid dependence, uncomplicated; I24.8 Other forms of acute ischemic heart disease; I48.92 Unspecified atrial flutter; R45.851 Suicidal ideations; I47.20 Ventricular tachycardia, unspecified; R04.2 Hemoptysis; J44.1 Chronic obstructive pulmonary disease with (acute) exacerbation; T17.890A Other foreign object in other parts of respiratory tract causing asphyxiation, initial encounter; F14.10 Cocaine abuse, uncomplicated; G40.909 Epilepsy, unspecified, not intractable, without status epilepticus; D69.6 Thrombocytopenia, unspecified; I25.5 Ischemic cardiomyopathy; I42.0 Dilated cardiomyopathy; R26.81 Unsteadiness on feet; Z91.14 Patient's other noncompliance with medication regimen; Z66 Do not resuscitate; R33.9 Retention of urine, unspecified; R29.6 Repeated falls; I25.10 Atherosclerotic heart disease of native coronary artery without angina pectoris; Z86.711 Personal history of pulmonary embolism; E53.8 Deficiency of other specified B group vitamins; G89.4 Chronic pain syndrome; F41.9 Anxiety disorder, unspecified; E78.5 Hyperlipidemia, unspecified; F43.23 Adjustment disorder with mixed anxiety and depressed mood; M10.9 Gout, unspecified; E87.6 Hypokalemia; Z51.5 Encounter for palliative care; I25.2 Old myocardial infarction; Z79.01 Long term (current) use of anticoagulants; Z86.73 Personal history of transient ischemic attack (TIA), and cerebral infarction without residual deficits; Z87.820 Personal history of traumatic brain injury; Z87.891 Personal history of nicotine dependence
CPT/HCPCS: 36415; 71275; 74177; 76942; 80048; 80053; 80307; 83690; 84145; 85384; 86255; 87040; 87081; 87449; 87635; 93005; 94640; 96365; 96375; 96376; 97162; 97530; 99291; 70450; 71045; 72125; 80162; 80202; 81003; 81015; 82607; 82728; 82746; 83540; 83550; 83605; 83735; 83880; 84439; 84443; 84484; 85025; 85379; 85610; 85730; 86038; 86140; 87070; 87086; 87205; 87385; 87899; 93010; 94660; 94667; 94668; 99223; 99231; 99232; 99233; 99238; J0696; J1160; J1940; J1941; J2060; J2270; J2930; J3490; J7512; J7614; J7620; J7644